=== PATIENT | female | born 1975 | race Caucasian/White ===

== ENCOUNTER 2019-05-05 08:10 | Emergency (ER) | payer MEDICAID, SELFPAY | END 2019-05-05 12:07 | disposition left against medical advice (07) | LOC: ER 05-14 10:57 | PROVIDERS: Emergency Provider Family Medicine; Family Provider Internal Medicine; PCP Internal Medicine | DX: K70.30 Alcoholic cirrhosis of liver without ascites (principal); R10.84 Generalized abdominal pain; F17.200 Nicotine dependence, unspecified, uncomplicated; B18.1 Chronic viral hepatitis B without delta-agent ==

== ENCOUNTER 2019-05-05 08:10 | Emergency (ER) | payer MEDICAID, SELFPAY ==
[2019-05-05 08:13] VITALS: BP 177/112; PULSE 108; RESP 22; O2SAT 97; BMI 26.8
--- NOTE | 2019-05-05 08:14 | ED_ITS ---
Entered by Mai Suarez, acting as scribe for Lane Gaffney DO HPI - General Adult General: Chief complaint: Nausea/Vomiting/Diarrhea Stated complaint: N/V Time Seen by Provider: 05/05/19 08:55 History of Present Illness: HPI narrative: 43 yo female presents with nausea and vomiting. Patient reports she has a history of cirrhosis evidently it is idiopathic. She denies any fever no recent change in medication she does use Dilaudid at home for pain. She is still taking her lactulose. She has not had any dysuria urgency or frequency denies any shortness of breath or cough. MD complaint: nausea and vomiting. Associated symptoms: Reports nausea and vomiting; Deny chest pain, dyspnea, malaise or rash Review of Systems Const: Denies: fever, chills, body aches, change in appetite, fatigue or malaise ENMT: Denies: throat pain, ear pain, nasal discharge or nasal congestion Card: Denies: chest pain, edema, shortness of breath on exertion or shortness of breath when lying down Resp: Denies: shortness of breath, productive cough or non-productive cough GI: Reports: nausea and vomiting : Denies: flank pain, difficulty urinating, painful urination, urinary frequency or urinary urgency Skin/Breast: Denies: rash or itching PFSH ED PFSH: Medical History Cirrhosis Diabetes mellitus Encephalopathy Gastroesophageal reflux GI bleeding Hypertension Pelvic inflammatory disease Stomach cancer Surgical History H/O tubal ligation History of hysterectomy History of laparotomy Social History Smoking and tobacco status: current some day smoker Physical Exam Const: COMMON NORMALS: no apparent distress GENERAL APPEARANCE: cooperative and comfortable ORIENTATION/CONSCIOUSNESS: Yes awake, Yes oriented to person, Yes oriented to place and Yes oriented to time HENMT: COMMON NORMALS: normocephalic, head/scalp atraumatic, hearing grossly normal bilaterally, external ears normal, EAC's normal, TM's normal bilaterally, nasal mucous membranes and turbinates normal, moist oral mucous membranes and oropharynx normal HEAD & SCALP: normocephalic and atraumatic NOSE: nasal mucous membranes and turbinates normal EXTERNAL EAR: Yes external ears normal EXTERNAL AUDITORY CANAL: EAC's normal TYMPANIC MEMBRANE: TM's normal bilaterally Eye: COMMON NORMALS: PERRL, EOMs intact bilaterally, conjunctivae normal and no scleral icterus CONJUNCTIVA: Yes conjunctivae normal PUPIL: Yes PERRL Neck/C-Spine: COMMON NORMALS: full ROM, no lymphadenopathy, supple and no JVD Lymph: LYMPHATIC: no lymphadenopathy noted and no lymphedema noted Resp: COMMON NORMALS: normal respiratory effort, no retractions, no use of accessory muscles and clear to auscultation bilaterally AUSCULTATION: clear to auscultation bilaterally Cardio: COMMON NORMALS: no JVD, regular rate, regular rhythm and no murmurs RATE: regular rate RHYTHM: regular rhythm GI: COMMON NORMALS: soft to palpation and no hepatosplenomegaly AUSCULTATION: Yes normoactive bowel sounds PALPATION: Yes soft, No tender, No guarding and Yes no hepatosplenomegaly Extremity: COMMON NORMALS: normal to inspection, normal capillary refill, no clubbing, cyanosis or edema, no calf tenderness and no pedal edema Neuro: SENSORIUM/ORIENTATION: Yes oriented to person, Yes oriented to place and Yes oriented to time Skin: COMMON NORMALS: no rashes or lesions noted GENERAL SKIN EXAM: no rashes or lesions noted Course 2 ED course: Work-up was still pending. Patient had continued pain she was given narcotics and antiemetics. Antiemetics seem to be helpful. Nurse reported to me that after the second dose of morphine patient removed her IV and began to leave the department the nurse attempted to stop her and talk to her to convince her not to leave. However she insisted on leaving I was not able to get the opportunity to talk to her. The nurse was not able to give her any paperwork for AMA. She does not have any altered mental status. Her ammonia level is elevated but is been more elevated in the past. When I talked her she is awake alert and oriented x3 is aware of her medications and her diagnosis. Unfortunately in the brief conversation the nurse had with her she was not able to convince her to leave and I was not able to talk to her. When I went to the room and checked the lobby the patient was not in the department anymore. She had eloped prior to receiving any AMA paperwork. Vital Signs: Vital signs: Vital Signs Pulse Rate 81 05/05/19 11:48 Respiratory Rate 18 05/05/19 11:50 Blood Pressure 191/109 05/05/19 11:48 Pulse Oximetry 98 05/05/19 11:48 [facility] - General Adult Lab Data: Labs: Lab Results 05/05/19 05/05/19 05/05/19 Range/Units 09:00 09:00 09:00 WBC 5.8 (4.0-10.0) 10^3/ uL RBC 4.51 (4.1-5.3) 10^6/u L Hgb 13.4 (11.5-15.3) g/dL Hct 41.4 (37.0-47.0) % MCV 91.8 (81-99) fL MCH 29.7 (28.0-34.0) pg MCHC 32.4 (30.0-36.0) g/dL RDW 13.2 (12.1-15.1) % Plt Count 125 L (130-400) 10^3/c mm MPV 10.5 H (7.4-10.4) fL Neut % (Auto) 57.1 % Lymph % (Auto) 28.6 % [place] % (Auto) 12.7 % Eos % (Auto) 0.7 % Baso % (Auto) 0.7 % Neut # (Auto) 3.3 (1.8-7.7) 10^3/u L Lymph # (Auto) 1.7 (0.8-4.8) 10^3/u L [place] # (Auto) 0.7 (0.2-0.9) 10^3/u L Eos # (Auto) 0.0 (0.0-0.8) 10^3/u L Baso # (Auto) 0.0 (0.0-0.1) 10^3/u L Nucleated RBC % (a uto) 0 % Nucleated RBCs # 0.0 /100WBC PT 14.10 H (10.5-13.3) SECO NDS INR 1.06 (0.8-1.2) APTT 30.8 (23.9-36.7) SECO NDS Sodium 140 (136-145) mmol/L Potassium 3.4 L (3.5-5.1) mmol/L Chloride 106 (98-107) mmol/L Carbon Dioxide 22 (22-29) mmol/L Anion Gap 15.4 (5-19) BUN 7 (6-20) mg/dL Creatinine 0.4 L (0.5-0.9) mg/dL GFR Calculation 173.4 H (90-130) mL/min Glucose 133 H (65-115) mg/dL Calcium 9.3 (8.5-10.5) mg/dL Total Bilirubin 1.0 (0.15-1.2) mg/dL AST 37 H (0-32) U/L ALT 21 (0-33) U/L Alkaline Phosphata se 115 H (35-105) IU/L Ammonia (11-51) umol/L Total Protein 8.1 (6.6-8.7) g/dL Albumin 2.9 L (3.5-5.2) g/dL Globulin 5.2 H (1.3-4.6) g/dL Lipase 20 (13-60) U/L Influenza Type A A g (Negative) POC Influenza B Ag (Negative) 05/05/19 05/05/19 Range/Units 09:00 09:06 WBC (4.0-10.0) 10^3/ uL RBC (4.1-5.3) 10^6/u L Hgb (11.5-15.3) g/dL Hct (37.0-47.0) % MCV (81-99) fL MCH (28.0-34.0) pg MCHC (30.0-36.0) g/dL RDW (12.1-15.1) % Plt Count (130-400) 10^3/c mm MPV (7.4-10.4) fL Neut % (Auto) % Lymph % (Auto) % [place] % (Auto) % Eos % (Auto) % Baso % (Auto) % Neut # (Auto) (1.8-7.7) 10^3/u L Lymph # (Auto) (0.8-4.8) 10^3/u L [place] # (Auto) (0.2-0.9) 10^3/u L Eos # (Auto) (0.0-0.8) 10^3/u L Baso # (Auto) (0.0-0.1) 10^3/u L Nucleated RBC % (a uto) % Nucleated RBCs # /100WBC PT (10.5-13.3) SECO NDS INR (0.8-1.2) APTT (23.9-36.7) SECO NDS Sodium (136-145) mmol/L Potassium (3.5-5.1) mmol/L Chloride (98-107) mmol/L Carbon Dioxide (22-29) mmol/L Anion Gap (5-19) BUN (6-20) mg/dL Creatinine (0.5-0.9) mg/dL GFR Calculation (90-130) mL/min Glucose (65-115) mg/dL Calcium (8.5-10.5) mg/dL Total Bilirubin (0.15-1.2) mg/dL AST (0-32) U/L ALT (0-33) U/L Alkaline Phosphata se (35-105) IU/L Ammonia 115 H (11-51) umol/L Total Protein (6.6-8.7) g/dL Albumin (3.5-5.2) g/dL Globulin (1.3-4.6) g/dL Lipase (13-60) U/L Influenza Type A A g Negative (Negative) POC Influenza B Ag Negative (Negative) Discharge Plan Discharge Patient Disposition: Left Against Medical Advice Clinical Impression: Cirrhosis of liver, Nausea and vomiting in adult patient, Left against medical advice Prescriptions: No Action furosemide 40 mg tablet 40 mg PO DAILY RF: 0 doxepin 50 mg capsule 50 mg PO BEDTIME RF: 0 lamotrigine 200 mg tablet 200 mg PO DAILY RF: 0 tizanidine 4 mg tablet 4 mg PO TID RF: 0 sucralfate 100 mg/mL suspension 10 ml PO QID RF: 0 spironolactone 100 mg tablet 100 mg PO DAILY RF: 0 potassium chloride 20 mEq/15 mL liquid 20 meq PO DAILY RF: 0 levetiracetam 250 mg tablet 250 mg PO BID RF: 0 levothyroxine 50 mcg tablet 50 mcg PO QAM RF: 0 Lidocaine Viscous 2 % solution See Rx Instructions .ROUTE .COMPLEX RF: 0 tenofovir disoproxil fumarate 300 mg tablet 300 mg PO DAILY RF: 0 gabapentin 100 mg capsule 100 mg PO BID RF: 0 hydromorphone 4 mg tablet 4 mg PO QID PRN (Reason: Pain) RF: 0 Narcan 4 mg/actuation spray,non-aerosol See Rx Instructions .ROUTE .COMPLEX RF: 0 Referrals: Km Frank MD [Primary Care Provider] - Interventions: ED Discharge Assessment Last Done: 05/05/19 12:04 Discharge Date/Time: 05/05/19 12:07 Coding Level of Care Code ED Director Of Food And Beverage Services for Chg 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 The documentation recorded by the Erick keene Kialy, accurately reflects the service I personally performed and the decisions made by Yeimy armando Curtis L, DO May 05, 2019 08:10
[2019-05-05 09:10] LABS: Basophils % 0.7 %; Eosinophils % 0.7 %; Hematocrit 41.4 % (37.0-47.0); Hemoglobin 13.4 g/dL (11.5-15.3); Lymphocytes # 1.7 10^3/uL (0.8-4.8); Lymphocytes % 28.6 %; Mean Corpuscular HGB Conc 32.4 g/dL (30.0-36.0); Mean Corpuscular Hemoglobin 29.7 pg (28.0-34.0); Mean Corpuscular Volume 91.8 fL (81-99); Mean Platelet Volume 10.5 fL (7.4-10.4); Monocytes # 0.7 10^3/uL (0.2-0.9); Monocytes % 12.7 %; Neutrophils # 3.3 10^3/uL (1.8-7.7); Neutrophils % 57.1 %; Nucleated Red Blood Cells % 0 %; Platelet Count 125 10^3/cmm (130-400); Red Blood Count 4.51 10^6/uL (4.1-5.3); Red Cell Distribution Width 13.2 % (12.1-15.1); White Blood Count 5.8 10^3/uL (4.0-10.0)
[2019-05-05 09:16] LABS: INR 1.06 (0.8-1.2)
[2019-05-05 09:17] LABS: Partial Thromboplastin Time 30.8 SECONDS (23.9-36.7)
[2019-05-05] MEDS: sodium chloride 0.9% 1,000 ML 999 ML IV (09:24)
[2019-05-05] MEDS: ondansetron 2 mg/ML SDV 2 mL 4 MG IVP (09:25)
[2019-05-05 09:27] LABS: Alanine Aminotransferase 21 U/L (0-33); Albumin Level 2.9 g/dL (3.5-5.2); Alkaline Phosphatase 115 IU/L (35-105); Ammonia 115 umol/L (11-51); Anion Gap 15.4 (5-19); Aspartate Amino Transferase 37 U/L (0-32); Blood Urea Nitrogen 7 mg/dL (6-20); Calcium 9.3 mg/dL (8.5-10.5); Carbon Dioxide 22 mmol/L (22-29); Chloride 106 mmol/L (98-107); Globulin 5.2 g/dL (1.3-4.6); Glomerular Filtration Rate 173.4 mL/min (90-130); Glucose 133 mg/dL (65-115); Lipase 20 U/L (13-60); Potassium 3.4 mmol/L (3.5-5.1); Sodium 140 mmol/L (136-145); Total Protein 8.1 g/dL (6.6-8.7)
[2019-05-05] MEDS: morphine 4 mg/mL SDV 1 mL IVP ×2 (09:27→11:50)
[2019-05-05 10:45] LABS: Influenza A by IFA Negative (Negative); Influenza B by IFA Negative (Negative)
--- NOTE | 2019-05-05 10:59 | CTR_ITS ---
PROCEDURE INFORMATION: Exam: CT Abdomen And Pelvis With Contrast Exam date and time: 05/05/2019 11:11 AM Age: 43 years old Clinical indication: Fever and nausea and vomiting; Prior surgery; Surgery type: Hysterectomy; Patient HX: N/v/d with fever; Additional info: Abd pain TECHNIQUE: Imaging protocol: Computed tomography of the abdomen and pelvis with intravenous contrast. Total DLP: 1775.79 mGy-cm Radiation optimization: All CT scans at this facility use at least one of these dose optimization techniques: automated exposure control; mA and/or kV adjustment per patient size (includes targeted exams where dose is matched to clinical indication); or iterative reconstruction. Contrast material: OMNI 300; Contrast volume: 95 ml; Contrast route: 20G; COMPARISON: CT abdomen pelvis w con* [id number] 03/04/2019 12:54 AM FINDINGS: Mediastinum: A small hiatal hernia is present. Liver: The liver has a finely nodular contour, consistent with cirrhosis. A few small hypodensities in the liver are unchanged. The largest of these is identified in the left lobe of the liver measuring 10 mm in size image 26. When compared with the prior contrasted study, this is suspicious for a hemangioma that was partially opacified on the prior exam. There does appear to be some mild peripheral enhancement not identified on this noncontrast study. Gallbladder and bile ducts: The gallbladder is moderately distended with fluid. No stones are identified. No intrahepatic biliary duct dilatation. No definite cholecystitis. Pancreas: Normal. No ductal dilation. Spleen: The spleen is prominent measuring 14.5 x 6.8 by 14 cm in length. Adrenals: Normal. No mass. Kidneys and ureters: There is no evidence of hydronephrosis. There is no evidence of renal calcifications. There is a 1.4 cm unchanged indeterminate lesion in the posterior midpole right kidney. Hounsfield unit measurement is 42. This is not a fluid density cyst. Stomach and bowel: Moderate diverticulosis is present in the distal colon. No bowel thickening or diverticulitis. The loops of small bowel have an appropriate appearance. There is no ileus or obstruction. The gastric wall appears mildly thickened but this is less prominent. The stomach is more distended in this is probable lack of full distention. Appendix: A normal appendix is identified. Intraperitoneal space: Unremarkable. No free air. No significant fluid collection. Vasculature: Unremarkable.No abdominal aortic aneurysm. Lymph nodes: Unremarkable.No enlarged lymph nodes. Bladder: There is nonspecific bladder wall thickening. This may be related to incomplete distention. Reproductive: Unremarkable as visualized. Bones/joints: Unremarkable. No acute fracture. Soft tissues: Fat filled ventral hernia in the midline upper abdomen is noted unchanged since the prior exam. There is a fat-containing umbilical hernia. Other findings: No acute abnormality. Incidental findings are noted as above. CT/CT abdomen pelvis w con* [id number] IMPRESSION: 1. Unchanged hepatic hypodensities and probable cirrhosis. No ascites. 2. Unchanged splenomegaly. 3. No acute abnormality or inflammatory changes. 4. 1.4 cm indeterminate lesion midpole right kidney.Recommend MR without and with contrast or CT without and with contrast. MR is preferred for masses under 1.5 cm. Radiation Dose CTDIVOL = (mGy): DLP = 1775.79 (mGy-cm)
[2019-05-05] MEDS: iohexol 300 mg/mL 100 mL Btl IV (11:23)
[2019-05-05] MEDS: metoclopramide 5 mg/mL SDV 2 mL 10 MG IVP (11:42)
[2019-05-05 11:48] VITALS: BP 191/109; PULSE 81; RESP 16; O2SAT 98
[2019-05-05 11:50] VITALS: RESP 18
--- NOTE | 2019-05-05 12:03 | PC.NURSE ---
patient left [facility] without informing staff or emd
== END 2019-05-05 12:07 | disposition left against medical advice (07) ==
PROVIDERS: Emergency Provider Family Medicine; Family Provider Internal Medicine; PCP Internal Medicine
DX: K74.60 Unspecified cirrhosis of liver (principal); R11.2 Nausea with vomiting, unspecified; E11.9 Type 2 diabetes mellitus without complications; I10 Essential (primary) hypertension; F17.200 Nicotine dependence, unspecified, uncomplicated; Z53.29 Procedure and treatment not carried out because of patient's decision for other reasons
CPT/HCPCS: 36415; 74177; 80053; 82140; 83690; 85025; 85610; 85730; 87804; 96361; 96374; 96375; 99282; 99283; J2270; J2405; J2765; J7030; Q9967

== ENCOUNTER 2019-05-08 06:48 | Emergency (ER) | payer MEDICAID, SELFPAY ==
[2019-05-08 06:50] VITALS: BP 153/95; PULSE 55; RESP 18; TEMP 36.8; O2SAT 95; BMI 26.8
[2019-05-08 07:15] VITALS: BP 153/106; PULSE 87; RESP 15; O2SAT 95
[2019-05-08 07:17] VITALS: RESP 16
--- NOTE | 2019-05-08 07:18 | ED_ITS ---
Entered by Jessy Butler, acting as scribe for Brandon Jerez MD May 08, 2019 06:48 HPI - Abdominal Pain General: Chief Complaint: Abdominal Pain Stated Complaint: pain all over Time Seen by Provider: 05/08/19 06:57 Source: patient Mode of arrival: ambulatory Limitations: no limitations History of Present Illness: HPI narrative: 43-year-old female who has a history of cirrhosis and chronic abdominal pain states that they switched her pain medicines last week and she has had increased pain since then. She denies any fevers. She denies any worsening or improving factors. MD elicited complaint: abdominal pain Associated Symptoms: Denies chills, diarrhea, fever(s), nausea and vomiting Review of Systems Const: Denies: fever, chills, body aches or change in appetite Eyes: Denies: blurry vision or eye discomfort ENMT: Denies: throat pain or dental pain Card: Denies: chest pain Resp: Denies: shortness of breath GI: Denies: abdominal pain, nausea, vomiting or diarrhea Musc: Denies: neck pain or back pain Skin/Breast: Denies: rash Neuro: Denies: headache Psych: Denies: depression Robel/Lymph: Denies: easy bruising All/Imm: Denies: hives PFSH ED PFSH: Social History Smoking and tobacco status: never smoked Physical Exam Const: COMMON NORMALS: no apparent distress, oriented x3 and healthy appearing HENMT: COMMON NORMALS: normocephalic and head/scalp atraumatic HEAD & SCALP: normocephalic and atraumatic Eye: COMMON NORMALS: PERRL and EOMs intact bilaterally PUPIL: Yes PERRL Neck/C-Spine: COMMON NORMALS: full ROM and supple Chest: COMMONS NORMALS: inspection of chest normal and palpation of chest normal Resp: COMMON NORMALS: normal respiratory effort, no retractions, no use of accessory muscles and clear to auscultation bilaterally AUSCULTATION: clear to auscultation bilaterally Cardio: COMMON NORMALS: regular rate, regular rhythm and no murmurs RATE: regular rate RHYTHM: regular rhythm Extremity: COMMON NORMALS: normal to inspection and full ROM Neuro: COMMON NORMALS: oriented x3, moves all extremities and no focal motor deficits Psych: COMMON NORMALS: mental status grossly normal, thought process normal and cooperative THOUGHT PROCESS: normal thought process Skin: COMMON NORMALS: no rashes or lesions noted and no wounds GENERAL SKIN EXAM: no rashes or lesions noted Course Vital Signs: Vital signs: Vital Signs Temperature 98.2 F 05/08/19 06:50 Pulse Rate 65 05/08/19 08:27 Respiratory Rate 16 05/08/19 08:27 Blood Pressure 143/99 05/08/19 08:27 Pulse Oximetry 93 05/08/19 08:27 MDM - Abdominal Pain MDM Narrative: Medical decision making narrative: Patient presents here with abdominal pain that is chronic in nature from her cirrhosis. Patient is well- appearing here and lab work is normal. Patient is stable for discharge and is to follow-up with primary care doctor in 3 to 5 days return to ER if worsening. Patient abdominal exam at discharge is benign with no tenderness. Lab Data: Labs: Lab Results 05/08/19 05/08/19 Range/Units 07:15 07:15 WBC 6.9 (4.0-10.0) 10^3/ uL RBC 4.34 (4.1-5.3) 10^6/u L Hgb 13.3 (11.5-15.3) g/dL Hct 38.9 (37.0-47.0) % MCV 89.6 (81-99) fL MCH 30.6 (28.0-34.0) pg MCHC 34.2 (30.0-36.0) g/dL RDW 13.1 (12.1-15.1) % Plt Count 142 (130-400) 10^3/c mm MPV 10.9 H (7.4-10.4) fL Neut % (Auto) 57.2 % Lymph % (Auto) 27.6 % [place] % (Auto) 11.6 % Eos % (Auto) 2.6 % Baso % (Auto) 0.7 % Neut # (Auto) 4.0 (1.8-7.7) 10^3/u L Lymph # (Auto) 1.9 (0.8-4.8) 10^3/u L [place] # (Auto) 0.8 (0.2-0.9) 10^3/u L Eos # (Auto) 0.2 (0.0-0.8) 10^3/u L Baso # (Auto) 0.1 (0.0-0.1) 10^3/u L Nucleated RBC % (a uto) 0 % Nucleated RBCs # 0.0 /100WBC Sodium 138 (136-145) mmol/L Potassium 3.2 L (3.5-5.1) mmol/L Chloride 103 (98-107) mmol/L Carbon Dioxide 23 (22-29) mmol/L Anion Gap 15.2 (5-19) BUN 4 L (6-20) mg/dL Creatinine 0.4 L (0.5-0.9) mg/dL GFR Calculation 173.4 H (90-130) mL/min Glucose 157 H (65-115) mg/dL Calcium 8.9 (8.5-10.5) mg/dL Total Bilirubin 1.0 (0.15-1.2) mg/dL AST 31 (0-32) U/L ALT 18 (0-33) U/L Alkaline Phosphata se 117 H (35-105) IU/L Total Protein 7.7 (6.6-8.7) g/dL Albumin 2.8 L (3.5-5.2) g/dL Globulin 4.9 H (1.3-4.6) g/dL Lipase 18 (13-60) U/L Discharge Plan Discharge Patient Disposition: Home, Self-Care Clinical Impression: Abdominal pain Qualifiers: Abdominal location: generalized Qualified Code(s): R10.84 - Generalized abdominal pain Condition: Stable Prescriptions: No Action furosemide 40 mg tablet 40 mg PO DAILY RF: 0 doxepin 50 mg capsule 50 mg PO BEDTIME RF: 0 lamotrigine 200 mg tablet 200 mg PO DAILY RF: 0 tizanidine 4 mg tablet 4 mg PO TID RF: 0 sucralfate 100 mg/mL suspension 10 ml PO QID RF: 0 spironolactone 100 mg tablet 100 mg PO DAILY RF: 0 potassium chloride 20 mEq/15 mL liquid 20 meq PO DAILY RF: 0 levetiracetam 250 mg tablet 250 mg PO BID RF: 0 levothyroxine 50 mcg tablet 50 mcg PO QAM RF: 0 Lidocaine Viscous 2 % solution See Rx Instructions .ROUTE .COMPLEX RF: 0 tenofovir disoproxil fumarate 300 mg tablet 300 mg PO DAILY RF: 0 gabapentin 100 mg capsule 100 mg PO BID RF: 0 hydromorphone 4 mg tablet 4 mg PO QID PRN (Reason: Pain) RF: 0 Narcan 4 mg/actuation spray,non-aerosol See Rx Instructions .ROUTE .COMPLEX RF: 0 Discharge Orders: Discharge Order (Routine); Ordered 05/08/19 Ordered By: Brandon Jerez Referrals: Km Frank MD [Primary Care Provider] - 4-7 days Discharge Activity: Resume usual activity Patient Instructions: Abdominal Pain (ED) Discharge Date/Time: 05/08/19 08:28 Coding Level of Care Code ED Cosmetician Apprentice for Chg 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 The documentation recorded by the Luke keene Bridget Annette, accurately reflects the service I personally performed and the decisions made by Meri armando Korby, MD May 08, 2019 06:48
[2019-05-08 07:19] LABS: Basophils # 0.1 10^3/uL (0.0-0.1); Basophils % 0.7 %; Eosinophils # 0.2 10^3/uL (0.0-0.8); Eosinophils % 2.6 %; Hematocrit 38.9 % (37.0-47.0); Hemoglobin 13.3 g/dL (11.5-15.3); Lymphocytes # 1.9 10^3/uL (0.8-4.8); Lymphocytes % 27.6 %; Mean Corpuscular HGB Conc 34.2 g/dL (30.0-36.0); Mean Corpuscular Hemoglobin 30.6 pg (28.0-34.0); Mean Corpuscular Volume 89.6 fL (81-99); Mean Platelet Volume 10.9 fL (7.4-10.4); Monocytes # 0.8 10^3/uL (0.2-0.9); Monocytes % 11.6 %; Neutrophils % 57.2 %; Nucleated Red Blood Cells % 0 %; Platelet Count 142 10^3/cmm (130-400); Red Blood Count 4.34 10^6/uL (4.1-5.3); Red Cell Distribution Width 13.1 % (12.1-15.1); White Blood Count 6.9 10^3/uL (4.0-10.0)
[2019-05-08 07:24] VITALS: RESP 15
[2019-05-08] MEDS: HYDROmorphone 1 mg/mL INJ 1 mL IVP (07:24)
[2019-05-08] MEDS: diphenhydrAMINE 50 mg/mL SDV 1mL IVP (07:24)
[2019-05-08] MEDS: metoclopramide 5 mg/mL SDV 2 mL 10 MG IVP (07:24)
[2019-05-08 07:42] LABS: Alanine Aminotransferase 18 U/L (0-33); Albumin Level 2.8 g/dL (3.5-5.2); Alkaline Phosphatase 117 IU/L (35-105); Anion Gap 15.2 (5-19); Aspartate Amino Transferase 31 U/L (0-32); Blood Urea Nitrogen 4 mg/dL (6-20); Calcium 8.9 mg/dL (8.5-10.5); Carbon Dioxide 23 mmol/L (22-29); Chloride 103 mmol/L (98-107); Globulin 4.9 g/dL (1.3-4.6); Glomerular Filtration Rate 173.4 mL/min (90-130); Glucose 157 mg/dL (65-115); Lipase 18 U/L (13-60); Potassium 3.2 mmol/L (3.5-5.1); Sodium 138 mmol/L (136-145); Total Protein 7.7 g/dL (6.6-8.7)
--- NOTE | 2019-05-08 07:52 | PC.NURSE ---
put pt on 2 l NC of oxygen due to o2 sat being 90%
[2019-05-08 08:27] VITALS: BP 143/99; PULSE 65; RESP 16; O2SAT 93
== END 2019-05-08 08:28 | disposition home or self-care (01) ==
PROVIDERS: Emergency Provider Emergency Medicine; Family Provider Internal Medicine; PCP Internal Medicine
DX: R10.9 Unspecified abdominal pain (principal); K74.60 Unspecified cirrhosis of liver
CPT/HCPCS: 80053; 83690; 85025; 96374; 96375; 99282; 99283; J1170; J1200; J2765

== ENCOUNTER 2019-05-11 08:24 | Emergency (ER) | payer MEDICAID, SELFPAY ==
[2019-05-11 08:25] VITALS: BP 147/93; PULSE 76; RESP 18; TEMP 38; O2SAT 97; BMI 25.7
[2019-05-11 08:38] VITALS: O2SAT 97
--- NOTE | 2019-05-11 08:46 | ED_ITS ---
HPI - General Adult General: Chief complaint: Abdominal Pain Stated complaint: ABD PAIN; N/V Time Seen by Provider: 05/11/19 08:28 History of Present Illness: HPI narrative: Patient comes in by ambulance complaint abdominal pain. Says she is not taking Dilaudid that she is at home for the last 2 days because the branch she had does not work. She said she like to have some dilaudid for pain control. Said her stomach hurts is that has multiple times while she has been here in the ER. Says she just cannot stand the pain anymore MD complaint: Abdominal pain worse last 2 days since she has been off her Dilaudid Onset (ago): year(s) Location: abdomen Radiation: non-radiation Severity: severe Severity scale (1-10): 9 Quality: aching Pain Consistency: constant Relieving factors: none Exacerbating factors: none Associated symptoms: Reports no associated symptoms and fevers/chills; Deny chest pain, dyspnea, headache(s), nausea, rash or vomiting Review of Systems Const: Reports: fever; Denies: chills or body aches Eyes: Denies: change in vision or blurry vision ENMT: Denies: throat pain or nasal congestion Card: Denies: chest pain or shortness of breath on exertion Resp: Denies: shortness of breath, productive cough or non-productive cough GI: Reports: abdominal pain; Denies: nausea or vomiting Musc: Denies: extremity pain Skin/Breast: Denies: rash Neuro: Denies: headache Psych: Denies: anxiety or depression Robel/Lymph: Denies: easy bruising PFSH ED PFSH: Social History Smoking and tobacco status: current every day smoker Physical Exam Const: COMMON NORMALS: no apparent distress, average body habitus, oriented x3 and alert HENMT: COMMON NORMALS: normocephalic HEAD & SCALP: normal to inspection and normocephalic FACE & SINUS: normal facial exam Eye: COMMON NORMALS: conjunctivae normal GENERAL EYE: normal appearance of both eyes CONJUNCTIVA: Yes conjunctivae normal Neck/C-Spine: COMMON NORMALS: no JVD Chest: COMMONS NORMALS: inspection of chest normal Resp: COMMON NORMALS: normal respiratory effort and clear to auscultation bilaterally AUSCULTATION: clear to auscultation bilaterally Cardio: COMMON NORMALS: no JVD, regular rate and regular rhythm RATE: regular rate RHYTHM: regular rhythm GI: COMMON NORMALS: normal to inspection, nondistended, normoactive bowel sounds AUSCULTATION: Yes normoactive bowel sounds PALPATION: Yes tender (Generalized) Extremity: COMMON NORMALS: normal to inspection and full ROM Neuro: COMMON NORMALS: oriented x3 SENSORIUM/ORIENTATION: Yes alert Course Vital Signs: Vital signs: Vital Signs Temperature 100.4 F H 05/11/19 08:25 Pulse Rate 76 05/11/19 08:25 Respiratory Rate 18 05/11/19 08:25 Blood Pressure 147/93 05/11/19 08:25 Pulse Oximetry 97 05/11/19 08:38 MDM - General Adult MDM Narrative: Medical decision making narrative: discussed case with Dr. Jerez Lab Data: Labs: Lab Results 05/11/19 05/11/19 05/11/19 Range/Units 09:04 09:04 09:20 WBC 12.4 H (4.0-10.0) 10^3/ uL RBC 4.58 (4.1-5.3) 10^6/u L Hgb 13.7 (11.5-15.3) g/dL Hct 40.8 (37.0-47.0) % MCV 89.1 (81-99) fL MCH 29.9 (28.0-34.0) pg MCHC 33.6 (30.0-36.0) g/dL RDW 13.5 (12.1-15.1) % Plt Count 112 L (130-400) 10^3/c mm MPV 11.4 H (7.4-10.4) fL Neut % (Auto) 94.7 % Lymph % (Auto) 2.9 % [place] % (Auto) 1.5 % Eos % (Auto) 0.2 % Baso % (Auto) 0.2 % Neut # (Auto) 11.7 H (1.8-7.7) 10^3/u L Lymph # (Auto) 0.4 L (0.8-4.8) 10^3/u L [place] # (Auto) 0.2 (0.2-0.9) 10^3/u L Eos # (Auto) 0.0 (0.0-0.8) 10^3/u L Baso # (Auto) 0.0 (0.0-0.1) 10^3/u L Nucleated RBC % (a uto) 0 % Nucleated RBCs # 0.0 /100WBC Sodium 136 (136-145) mmol/L Potassium 3.0 L (3.5-5.1) mmol/L Chloride 101 (98-107) mmol/L Carbon Dioxide 23 (22-29) mmol/L Anion Gap 15.0 (5-19) BUN 8 (6-20) mg/dL Creatinine 0.6 (0.5-0.9) mg/dL GFR Calculation 108.6 (90-130) mL/min Glucose 171 H (65-115) mg/dL Calcium 8.9 (8.5-10.5) mg/dL Total Bilirubin 1.1 (0.15-1.2) mg/dL AST 46 H (0-32) U/L ALT 21 (0-33) U/L Alkaline Phosphata se 121 H (35-105) IU/L Total Protein 7.5 (6.6-8.7) g/dL Albumin 2.8 L (3.5-5.2) g/dL Globulin 4.7 H (1.3-4.6) g/dL Influenza Type A A g Negative (Negative) POC Influenza B Ag Negative (Negative) Discharge Plan Discharge Patient Disposition: Home, Self-Care Clinical Impression: Cirrhosis of liver Qualifiers: Hepatic cirrhosis type: alcoholic cirrhosis Ascites presence: without ascites Qualified Code(s): K70.30 - Alcoholic cirrhosis of liver without ascites Abdominal pain Qualifiers: Abdominal location: generalized Qualified Code(s): R10.84 - Generalized abdominal pain Condition: Stable Prescriptions: New doxycycline hyclate 100 mg tablet 100 mg PO BID 7 Days Qty: 14 RF: 0 No Action furosemide 40 mg tablet 40 mg PO DAILY RF: 0 doxepin 50 mg capsule 50 mg PO BEDTIME RF: 0 lamotrigine 200 mg tablet 200 mg PO DAILY RF: 0 tizanidine 4 mg tablet 4 mg PO TID RF: 0 sucralfate 100 mg/mL suspension 10 ml PO QID RF: 0 spironolactone 100 mg tablet 100 mg PO DAILY RF: 0 potassium chloride 20 mEq/15 mL liquid 20 meq PO DAILY RF: 0 levetiracetam 250 mg tablet 250 mg PO BID RF: 0 levothyroxine 50 mcg tablet 50 mcg PO QAM RF: 0 Lidocaine Viscous 2 % solution See Rx Instructions .ROUTE .COMPLEX RF: 0 tenofovir disoproxil fumarate 300 mg tablet 300 mg PO DAILY RF: 0 gabapentin 100 mg capsule 100 mg PO BID RF: 0 hydromorphone 4 mg tablet 4 mg PO QID PRN (Reason: Pain) RF: 0 Narcan 4 mg/actuation spray,non-aerosol See Rx Instructions .ROUTE .COMPLEX RF: 0 Discharge Orders: Discharge Order (Routine); Ordered 05/11/19 Ordered By: Cooper Gaston Referrals: Km Frank MD [Primary Care Provider] - Discharge Diet: Usual diet Discharge Activity: Increase activity as tolerated Patient Instructions: Abdominal Pain (ED) Activity Restrictions/Additional Instructions: Follow-up with medical provider as directed. Take medications as prescribed. Return to the ER or your medical provider if condition worsens. Please read and understand discharge instructions. If any questions ask please. Follow-up with [facility] if FLOOR SANDER as scheduled on Sunday. Coding Level of Care Code ED Automobile Racer for Geneg 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
[2019-05-11] MEDS: metoclopramide 5 mg/mL SDV 2 mL 10 MG IVP (09:24)
[2019-05-11] MEDS: HYDROmorphone 1 mg/mL INJ 1 mL 0.5 MG IVP (09:25)
[2019-05-11] MEDS: sodium chloride 0.9% 1,000 ML 999 ML IV (09:25)
[2019-05-11 09:28] LABS: Alanine Aminotransferase 21 U/L (0-33); Albumin Level 2.8 g/dL (3.5-5.2); Alkaline Phosphatase 121 IU/L (35-105); Aspartate Amino Transferase 46 U/L (0-32); Blood Urea Nitrogen 8 mg/dL (6-20); Calcium 8.9 mg/dL (8.5-10.5); Carbon Dioxide 23 mmol/L (22-29); Chloride 101 mmol/L (98-107); Globulin 4.7 g/dL (1.3-4.6); Glomerular Filtration Rate 108.6 mL/min (90-130); Glucose 171 mg/dL (65-115); Sodium 136 mmol/L (136-145); Total Bilirubin 1.1 mg/dL (0.15-1.2); Total Protein 7.5 g/dL (6.6-8.7)
[2019-05-11 09:45] LABS: Influenza A by IFA Negative (Negative); Influenza B by IFA Negative (Negative)
[2019-05-11 10:05] LABS: Basophils % 0.2 %; Eosinophils % 0.2 %; Hematocrit 40.8 % (37.0-47.0); Hemoglobin 13.7 g/dL (11.5-15.3); Lymphocytes # 0.4 10^3/uL (0.8-4.8); Lymphocytes % 2.9 %; Mean Corpuscular HGB Conc 33.6 g/dL (30.0-36.0); Mean Corpuscular Hemoglobin 29.9 pg (28.0-34.0); Mean Corpuscular Volume 89.1 fL (81-99); Mean Platelet Volume 11.4 fL (7.4-10.4); Monocytes # 0.2 10^3/uL (0.2-0.9); Monocytes % 1.5 %; Neutrophils # 11.7 10^3/uL (1.8-7.7); Neutrophils % 94.7 %; Nucleated Red Blood Cells % 0 %; Platelet Count 112 10^3/cmm (130-400); Red Blood Count 4.58 10^6/uL (4.1-5.3); Red Cell Distribution Width 13.5 % (12.1-15.1); White Blood Count 12.4 10^3/uL (4.0-10.0)
[2019-05-11 10:47] VITALS: BP 115/64; PULSE 74; RESP 17; O2SAT 97
== END 2019-05-11 10:57 | disposition home or self-care (01) ==
PROVIDERS: Emergency Provider Nurse Practitioner Family; Family Provider Internal Medicine; PCP Internal Medicine
DX: K74.60 Unspecified cirrhosis of liver (principal); R10.9 Unspecified abdominal pain; F17.200 Nicotine dependence, unspecified, uncomplicated
CPT/HCPCS: 36415; 80053; 85025; 87804; 96361; 96374; 96375; 99282; 99283; A9270; J1170; J2765; J7030

== ENCOUNTER → 2019-06-05 09:50 | Outpatient (BNVA) | payer MEDICAID, SELFPAY | PROVIDERS: Family Provider Internal Medicine; PCP Internal Medicine; Visit Provider Family Medicine | DX: R25.2 Cramp and spasm (principal); R10.9 Unspecified abdominal pain; G89.29 Other chronic pain | CPT/HCPCS: 80053; 85025 ==

== ENCOUNTER 2019-09-20 08:41 | Emergency (ER) | payer MEDICAID, SELFPAY ==
[2019-09-20 08:44] VITALS: BMI 32.5
[2019-09-20 08:47] VITALS: BP 148/100; PULSE 88; RESP 20; TEMP 36.9; O2SAT 98
--- NOTE | 2019-09-20 08:47 | ED_ITS ---
HPI - Extremity Problem General: Chief complaint: Extremity Injury, Lower Stated complaint: RIGHT FOOT PAIN Time Seen by Provider: 09/20/19 08:43 History of Present Illness: HPI Narrative: Patient is a 44-year-old female comes to the ED with right ankle pain. Patient says last night she stood up her right ankle pop and she had intense pain. This morning her her right ankle was swollen and she rates the pain in her right ankle about a 7 or 8 out of 10. She has not taken any [id number] pain medicines before arriving to ED. Associated symptoms: Deny chest pain, fever(s) or rash Review of Systems Const: Denies: fever(s), chills or fatigue Eyes: Denies: change in vision or eye discomfort ENMT: Denies: throat pain, odynophagia, nasal discharge or nasal congestion Card: Denies: chest pain, palpitations, edema, swelling of feet/ankles, dyspnea on exertion or orthopnea Resp: Denies: dyspnea, productive cough or non-productive cough GI: Denies: abdominal pain, nausea, vomiting, diarrhea, constipation or hematochezia : Denies: flank pain, dysuria or hematuria Musc: Reports: extremity pain (right ankle) and extremity swelling (right ankle); Denies: neck pain or back pain Skin/Breast: Denies: rash or new lesions Neuro: Denies: headache(s), numbness in extremities or weakness in extremities PFSH ED PFSH: Medical History Chronic abdominal pain Chronic hepatitis B Chronic hip pain Cirrhosis Diabetes mellitus Encephalopathy Gastroesophageal reflux GI bleeding Hypertension Leg cramps Pelvic inflammatory disease Stomach cancer Surgical History H/O tubal ligation History of hysterectomy History of laparotomy Family History Other Cancer Diabetes Social History Smoking and tobacco status: current every day smoker cigarettes Packs smoked per day: 0.25 Alcohol intake: never Physical Exam Const: COMMON NORMALS: patient oriented x3 and alert GENERAL APPEARANCE: cooperative and comfortable HENMT: COMMON NORMALS: normocephalic HEAD & SCALP: normocephalic MOUTH: Normal oral and palatal mucosa present THROAT: posterior oropharynx normal and uvula midline Eye: COMMON NORMALS: Equal, round and reactive pupils present PUPIL: Yes Equal, round and reactive pupils present Neck/C-Spine: COMMON NORMALS: supple GENERAL: Yes normal visual inspection Resp: COMMON NORMALS: normal respiratory effort, No retractions, No use of accessory muscles and clear to auscultation bilaterally AUSCULTATION: clear to auscultation bilaterally Cardio: COMMON NORMALS: regular rate, regular rhythm, S1 normal heart sound present, S2 normal heart sound present, No gallops present (Cardio), No clicks present (Cardio), No murmurs present (Cardio) and Peripheral pulses 2+ throughout RATE: regular rate RHYTHM: regular rhythm HEART SOUNDS: S1 normal heart sound present and S2 normal heart sound present PERIPHERAL PULSES: Peripheral pulses 2+ throughout GI: COMMON NORMALS: Normal to inspection, nondistended, normoactive bowel sounds present, Soft to palpation, non-tender and no masses PALPATION: Yes Soft to palpation : COMMON NORMALS: Yes no CVA tenderness BLADDER/KIDNEY EXAM: Yes no CVA tenderness Back/Pelvis: COMMON NORMALS: no CVA tenderness Extremity: GENERAL: Yes normal exam except as noted RIGHT LOWER EXTREMITY: Yes foot & digits Right ankle: Yes inspection (No visible deformity and swelling around ankle present. No ecchymosis seen.), Yes palpation (tender upon palpation of lateral malleolus.), Yes ROM (Limited due to pain) and Yes neurovascular exam (Intact) Neuro: COMMON NORMALS: patient oriented x3 and moves all extremities SENSORIUM/ORIENTATION: Yes alert Skin: COMMON NORMALS: no rashes or lesions noted GENERAL SKIN EXAM: no rashes or lesions noted and dry skin Course Vital Signs: Vital signs: Vital Signs Temperature 98.4 F 09/20/19 08:47 Pulse Rate 88 09/20/19 08:47 Respiratory Rate 20 H 09/20/19 08:47 Blood Pressure 148/100 09/20/19 08:47 Pulse Oximetry 98 09/20/19 08:47 MDM - Extremity (Nontraumatic) Imaging Data^: Xray Ortho: Attestation: I personally reviewed and interpreted this imaging study as follows: Radiologist's impression: [address] [place] [address] XRay Report Signed Patient: Maribell Foreman Unit #: [id number] : 1975 Age/Sex: 44 / F ADM Date: 09/20/19 Loc: ER Room/Bed: Attending Dr: Ordering Provider/Ordering MD: Britton Heart Date of Service: 09/20/19 Procedure(s): XR ankle RT min 3V* 19659 Accession Number(s): [id number] Report Number: [id number] PROCEDURE INFORMATION: Exam: XR Right Ankle Exam date and time: 09/20/2019 8:55 AM Age: 44 years old Clinical indication: Pain; Right; Patient HX: PT stepped and felt / heard pop in ankle this morning; Additional info: Injury with ankle swelling, pain TECHNIQUE: Imaging protocol: XR Right ankle. Views: 3 or more views. COMPARISON: No relevant prior studies available. FINDINGS: Bones/joints: Medial and lateral malleoli normal. Ankle mortise symmetrical. No fracture. Hind foot is unremarkable. Tibiotalar joint and subtalar joint normal. Mild degenerative changes talonavicular joint. Soft tissues: Severe soft tissue swelling laterally. Severe soft tissue swelling adjacent to the lateral malleolus. XR/XR ankle RT min 3V* [id number] IMPRESSION: 1. No fracture 2. Severe soft tissue swelling adjacent to the lateral malleolus. Dictated By: Luis Enrique MD Signed By: Luis Enrique MD Signed Date/Time: 09/20/19937 DD/ 5 Discharge Plan Discharge Patient Disposition: Home, Self-Care Clinical Impression: Ankle sprain and strain Condition: Stable Prescriptions: No Action Xifaxan 550 mg tablet 550 mg PO BID RF: 0 pantoprazole 40 mg tablet,delayed release (DR/EC) 40 mg PO DAILY RF: 0 tizanidine 6 mg capsule 6 mg PO TID PRN (Reason: muscle spasticity) Qty: 90 RF: 0 furosemide 40 mg tablet 40 mg PO DAILY RF: 0 doxepin 50 mg capsule 50 mg PO BEDTIME RF: 0 lamotrigine 200 mg tablet 200 mg PO DAILY RF: 0 sucralfate 100 mg/mL suspension 10 ml PO QID RF: 0 spironolactone 100 mg tablet 100 mg PO DAILY RF: 0 potassium chloride 20 mEq/15 mL liquid 20 meq PO DAILY RF: 0 levetiracetam 250 mg tablet 250 mg PO BID RF: 0 levothyroxine 50 mcg tablet 50 mcg PO QAM RF: 0 Lidocaine Viscous 2 % solution See Rx Instructions .ROUTE .COMPLEX RF: 0 tenofovir disoproxil fumarate 300 mg tablet 300 mg PO DAILY RF: 0 gabapentin 100 mg capsule 100 mg PO BID RF: 0 hydromorphone 4 mg tablet 4 mg PO QID PRN (Reason: Pain) RF: 0 Narcan 4 mg/actuation spray,non-aerosol See Rx Instructions .ROUTE .COMPLEX RF: 0 Discharge Orders: Discharge Order (Routine); Ordered 09/20/19 Ordered By: Britton Heart Referrals: Maribell Hodges DO [Primary Care Provider] - Discharge Diet: Regular Discharge Activity: Increase activity as tolerated and Use walker/crutches as instructed Patient Instructions: Sprains - Ankle Activity Restrictions/Additional Instructions: Follow-up with medical provider as directed in the next 7-10 days. Take [id number] ibuprofen to help with pain and inflammation. Use crutches to help with ambulation over the next 1 to 3 days. Rest, ice and elevate right lower extremity. You can also wrap right ankle with Ricki wrap to help with swelling and provide support. Advance weightbearing as tolerated after 2 days. Return to the ER or your medical provider if condition worsens. Please read and understand discharge instructions. If any questions, please ask. Coding Level of Care Code ED Regulatory Technician for Margarito 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
--- NOTE | 2019-09-20 08:53 | XRR_ITS ---
PROCEDURE INFORMATION: Exam: XR Right Ankle Exam date and time: 09/20/2019 8:55 AM Age: 44 years old Clinical indication: Pain; Right; Patient HX: PT stepped and felt / heard pop in ankle this morning; Additional info: Injury with ankle swelling, pain TECHNIQUE: Imaging protocol: XR Right ankle. Views: 3 or more views. COMPARISON: No relevant prior studies available. FINDINGS: Bones/joints: Medial and lateral malleoli normal. Ankle mortise symmetrical. No fracture. Hind foot is unremarkable. Tibiotalar joint and subtalar joint normal. Mild degenerative changes talonavicular joint. Soft tissues: Severe soft tissue swelling laterally. Severe soft tissue swelling adjacent to the lateral malleolus. XR/XR ankle RT min 3V* [id number] IMPRESSION: 1. No fracture 2. Severe soft tissue swelling adjacent to the lateral malleolus.
[2019-09-20] MEDS: HYDROcodone-acetaminophen 7.5-325 mg Tablet 1 TAB PO (09:04)
[2019-09-20] MEDS: diphenhydrAMINE 25 mg Capsule PO (09:04)
--- NOTE | 2019-09-20 09:05 | PC.NURSE ---
XR performed at bedside
[2019-09-20] MEDS: ketorolac 60 mg/2 mL INJ IM (09:57)
[2019-09-20 10:05] VITALS: BP 150/98; PULSE 84; RESP 16; O2SAT 99
== END 2019-09-20 10:06 | disposition home or self-care (01) ==
PROVIDERS: Emergency Provider Physician Assistant; PCP Family Medicine
DX: S93.401A Sprain of unspecified ligament of right ankle, initial encounter (principal); S96.911A Strain of unspecified muscle and tendon at ankle and foot level, right foot, initial encounter; X58.XXXA Exposure to other specified factors, initial encounter; Z86.19 Personal history of other infectious and parasitic diseases; E11.9 Type 2 diabetes mellitus without complications; I10 Essential (primary) hypertension; Z85.028 Personal history of other malignant neoplasm of stomach; F17.210 Nicotine dependence, cigarettes, uncomplicated
CPT/HCPCS: 12345; 73610; 96372; 99282; 99283; E0114; J1885

== ENCOUNTER 2019-11-20 04:48 | Emergency (ER) | payer MEDICAID, SELFPAY ==
[2019-11-20 04:48] VITALS: BP 168/110; PULSE 82; RESP 16; TEMP 36.9; O2SAT 97; BMI 26.4
--- NOTE | 2019-11-20 04:56 | ED_ITS ---
Documented by User: Brandon Jerez MD 11/20/19 05:50 HPI - Abdominal Pain General: Chief Complaint: Abdominal Pain Stated Complaint: N/V Time Seen by Provider: 11/20/19 04:51 Source: patient and EMS Mode of arrival: EMS Limitations: no limitations History of Present Illness: HPI narrative: 44-year-old female history of chronic hepatitis B and chronic abdominal pain. Patient states she recently got over C. difficile has been in hospital for roughly 1 week. Patient states that she was on oxycodone and hydromorphone and only is on her hydromorphone currently. Patient states she no longer has any diarrhea but is having severe abdominal pain. She states her pain is diffuse in nature and rates it a 10. She has had some nausea but denies any vomiting. Patient denies any pain elsewhere. MD elicited complaint: abdominal pain Associated Symptoms: Denies chills, dysuria and fever(s) Review of Systems Const: Denies: fever(s), chills, body aches or change in appetite Eyes: Denies: blurry vision or eye discomfort ENMT: Denies: throat pain or dental pain Card: Denies: chest pain Resp: Denies: dyspnea GI: Reports: abdominal pain : Denies: dysuria Musc: Denies: neck pain or back pain Skin/Breast: Denies: rash Neuro: Denies: headache(s) Psych: Denies: depression Robel/Lymph: Denies: easy bruising All/Imm: Denies: urticaria PFSH ED PFSH: Medical History Chronic abdominal pain Chronic hepatitis B Chronic hip pain Cirrhosis Diabetes mellitus Encephalopathy Gastroesophageal reflux GI bleeding Hypertension Leg cramps Pelvic inflammatory disease Stomach cancer Surgical History H/O tubal ligation History of hysterectomy History of laparotomy Family History Other Cancer Diabetes Social History Smoking and tobacco status: current every day smoker cigarettes Packs smoked per day: 0.25 Alcohol intake: never Physical Exam Const: COMMON NORMALS: no acute distress, patient oriented x3 and healthy appearing HENMT: COMMON NORMALS: normocephalic and atraumatic HEAD & SCALP: normocephalic and atraumatic Eye: COMMON NORMALS: Equal, round and reactive pupils present and EOMs intact bilaterally PUPIL: Yes Equal, round and reactive pupils present Neck/C-Spine: COMMON NORMALS: full ROM and supple Chest: COMMONS NORMALS: normal inspection of the chest and normal palpation of entire chest wall Resp: COMMON NORMALS: normal respiratory effort, No retractions, No use of accessory muscles and clear to auscultation bilaterally AUSCULTATION: clear to auscultation bilaterally Cardio: COMMON NORMALS: regular rate, regular rhythm and No murmurs present (Cardio) RATE: regular rate RHYTHM: regular rhythm GI: COMMON NORMALS: Normal to inspection, nondistended, normoactive bowel sounds present, Soft to palpation, non-tender and no masses PALPATION: Yes Soft to palpation Extremity: COMMON NORMALS: normal to inspection and full ROM Neuro: COMMON NORMALS: patient oriented x3, moves all extremities and no focal motor deficits Psych: COMMON NORMALS: mental status grossly normal, Normal thought process present and cooperative THOUGHT PROCESS: Normal thought process present Skin: COMMON NORMALS: no rashes or lesions noted and no wounds GENERAL SKIN EXAM: no rashes or lesions noted Course Vital Signs: Vital signs: Vital Signs Temperature 98.2 F 11/20/19 08:16 Pulse Rate 89 11/20/19 08:16 Respiratory Rate 24 H 11/20/19 08:16 Blood Pressure 130/97 11/20/19 08:16 Pulse Oximetry 99 11/20/19 08:16 MDM - Abdominal Pain MDM Narrative: Medical decision making narrative: Maribell presents here with chronic abdominal pain. Initial vital signs here are normal. Will check CBC CMP lipase along with urine. Patient's care turned over to Dr. Ware to follow these labs. Lab Data: Labs: Lab Results 11/20/19 11/20/19 11/20/19 Range/Units 05:07 05:07 07:04 WBC 6.4 (4.0-10.0) 10^3/ uL RBC 4.01 L (4.1-5.3) 10^6/u L Hgb 12.5 (11.5-15.3) g/dL Hct 37.3 (37.0-47.0) % MCV 93.0 (81-99) fL MCH 31.2 (28.0-34.0) pg MCHC 33.5 (30.0-36.0) g/dL RDW 13.5 (12.1-15.1) % Plt Count 141 (130-400) 10^3/c mm MPV 10.4 (7.4-10.4) fL Neut % (Auto) 72.1 % Lymph % (Auto) 19.3 % [place] % (Auto) 7.5 % Eos % (Auto) 0.2 % Baso % (Auto) 0.6 % Neut # (Auto) 4.62 (1.8-7.7) 10^3/u L Lymph # (Auto) 1.2 (0.8-4.8) 10^3/u L [place] # (Auto) 0.5 (0.2-0.9) 10^3/u L Eos # (Auto) 0.0 (0.0-0.8) 10^3/u L Baso # (Auto) 0.0 (0.0-0.1) 10^3/u L Nucleated RBC % (a uto) 0 % Nucleated RBCs # 0.0 /100WBC Sodium 142 (136-145) mmol/L Potassium 3.8 (3.5-5.1) mmol/L Chloride 109 H (98-107) mmol/L Carbon Dioxide 22 (22-29) mmol/L Anion Gap 14.8 (5-19) BUN 13 (6-20) mg/dL Creatinine 0.5 (0.5-0.9) mg/dL GFR Calculation 133.4 H (90-130) mL/min Glucose 148 H (65-115) mg/dL Calculated Osmolal ity 293 (285-295) mOsm/k g Calcium 8.7 (8.5-10.5) mg/dL Total Bilirubin 1.4 H (0.15-1.2) mg/dL AST 40 H (0-32) U/L ALT 15 (0-33) U/L Alkaline Phosphata se 108 H (35-105) IU/L Total Protein 8.0 (6.6-8.7) g/dL Albumin 3.5 (3.5-5.2) g/dL Globulin 4.5 (1.3-4.6) g/dL Lipase 17 (13-60) U/L Urine Color Yellow (Yellow) Urine Appearance Clear (CLEAR) Urine pH 7.0 (5-7) Ur Specific Gravit y 1.005 (1.005-1.030) Urine Protein Neg (Negative) Urine Glucose (UA) Norm (Normal) Urine Ketones 2+ H (Negative) Urine Blood 2+ H (Negative) Urine Nitrate Negative (Negative) Urine Bilirubin Neg (NEGATIVE) Urine Urobilinogen 1 H (Negative) mg/dL Ur Leukocyte Imani ase Negative (Negative) Urine RBC 0-4 H (0-2) /hpf Urine WBC None (0-5) /hpf Ur Squamous Epith Cells 10-15 H (0-5) Amorphous Sediment Not Reportable Urine Bacteria Trace (NONE) Urine Mucus 1+ Discharge Plan Discharge Patient Disposition: Home Clinical Impression: Chronic abdominal pain, Cirrhosis Condition: Stable Prescriptions: No Action Xifaxan 550 mg tablet 550 mg PO BID RF: 0 tizanidine 6 mg capsule 6 mg PO TID PRN (Reason: muscle spasticity) Qty: 90 RF: 0 tenofovir disoproxil fumarate 300 mg tablet 300 mg PO DAILY Qty: 30 RF: 6 pantoprazole 40 mg tablet,delayed release (DR/EC) 40 mg PO DAILY Qty: 90 RF: 1 furosemide 40 mg tablet 40 mg PO DAILY RF: 0 doxepin 50 mg capsule 50 mg PO BEDTIME RF: 0 lamotrigine 200 mg tablet 200 mg PO DAILY RF: 0 sucralfate 100 mg/mL suspension 10 ml PO QID RF: 0 spironolactone 100 mg tablet 100 mg PO DAILY RF: 0 potassium chloride 20 mEq/15 mL liquid 20 meq PO DAILY RF: 0 levetiracetam 250 mg tablet 250 mg PO BID RF: 0 levothyroxine 50 mcg tablet 50 mcg PO QAM RF: 0 Lidocaine Viscous 2 % solution See Rx Instructions .ROUTE .COMPLEX RF: 0 gabapentin 100 mg capsule 100 mg PO BID RF: 0 hydromorphone 4 mg tablet 4 mg PO QID PRN (Reason: Pain) RF: 0 Narcan 4 mg/actuation spray,non-aerosol See Rx Instructions .ROUTE .COMPLEX RF: 0 Discharge Orders: Discharge Order (Routine); Ordered 11/20/19 Ordered By: Lane Gaffney Referrals: Maribell Hodges DO [Primary Care Provider] - Discharge Diet: Clear Liquid Discharge Activity: Increase activity as tolerated Activity Restrictions/Additional Instructions: Clear liquid diet x48 hours advance as tolerated Discharge Date/Time: 11/20/19 08:18 Sign Out Sign Out Data: Patient Sign Out occurred on 11/20/19 at 05:57. Patient's care was discussed, and care was transferred from to Lane Gaffney DO. Coding Level of Care Code ED Battery Mechanic for Chg 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 Documented by User: Lane Gaffney DO 11/21/19 10:50 HPI - Abdominal Pain General: Chief Complaint: Abdominal Pain Stated Complaint: N/V Time Seen by Provider: 11/20/19 04:51 PFSH ED PFSH: Medical History Chronic abdominal pain Chronic hepatitis B Chronic hip pain Cirrhosis Diabetes mellitus Encephalopathy Gastroesophageal reflux GI bleeding Hypertension Leg cramps Pelvic inflammatory disease Stomach cancer Surgical History H/O tubal ligation History of hysterectomy History of laparotomy Family History Other Cancer Diabetes Social History Smoking and tobacco status: current every day smoker cigarettes Packs smoked per day: 0.25 Alcohol intake: never Course Vital Signs: Vital signs: Vital Signs Temperature 98.2 F 11/20/19 08:16 Pulse Rate 89 11/20/19 08:16 Respiratory Rate 24 H 11/20/19 08:16 Blood Pressure 130/97 11/20/19 08:16 Pulse Oximetry 99 11/20/19 08:16 MDM - Abdominal Pain MDM Narrative: Medical decision making narrative: Patient continued complaining abdominal pain this is a longstanding and chronic problem with her reviewed the notes from earlier this year it is been recommended that she follow-up with pain management by Dr. Hodges. Patient is vague on whether or not she is done. She is adamant that 2 mg every 6 hours of hydromorphone is not adequate for pain and is wanting more. Discussed with her that for chronic problem we would not prescribe that through the emergency room but that she would have to follow-up with her primary care doctor or pain management in regards to her long-term pain control issues. The CT today and the laboratory tests do not indicate anything acute we will discharge her home encourage clear liquid diet for 48 hours then advance as tolerated. Lab Data: Labs: Lab Results 11/20/19 11/20/19 11/20/19 Range/Units 05:07 05:07 07:04 WBC 6.4 (4.0-10.0) 10^3/ uL RBC 4.01 L (4.1-5.3) 10^6/u L Hgb 12.5 (11.5-15.3) g/dL Hct 37.3 (37.0-47.0) % MCV 93.0 (81-99) fL MCH 31.2 (28.0-34.0) pg MCHC 33.5 (30.0-36.0) g/dL RDW 13.5 (12.1-15.1) % Plt Count 141 (130-400) 10^3/c mm MPV 10.4 (7.4-10.4) fL Neut % (Auto) 72.1 % Lymph % (Auto) 19.3 % [place] % (Auto) 7.5 % Eos % (Auto) 0.2 % Baso % (Auto) 0.6 % Neut # (Auto) 4.62 (1.8-7.7) 10^3/u L Lymph # (Auto) 1.2 (0.8-4.8) 10^3/u L [place] # (Auto) 0.5 (0.2-0.9) 10^3/u L Eos # (Auto) 0.0 (0.0-0.8) 10^3/u L Baso # (Auto) 0.0 (0.0-0.1) 10^3/u L Nucleated RBC % (a uto) 0 % Nucleated RBCs # 0.0 /100WBC Sodium 142 (136-145) mmol/L Potassium 3.8 (3.5-5.1) mmol/L Chloride 109 H (98-107) mmol/L Carbon Dioxide 22 (22-29) mmol/L Anion Gap 14.8 (5-19) BUN 13 (6-20) mg/dL Creatinine 0.5 (0.5-0.9) mg/dL GFR Calculation 133.4 H (90-130) mL/min Glucose 148 H (65-115) mg/dL Calculated Osmolal ity 293 (285-295) mOsm/k g Calcium 8.7 (8.5-10.5) mg/dL Total Bilirubin 1.4 H (0.15-1.2) mg/dL AST 40 H (0-32) U/L ALT 15 (0-33) U/L Alkaline Phosphata se 108 H (35-105) IU/L Total Protein 8.0 (6.6-8.7) g/dL Albumin 3.5 (3.5-5.2) g/dL Globulin 4.5 (1.3-4.6) g/dL Lipase 17 (13-60) U/L Urine Color Yellow (Yellow) Urine Appearance Clear (CLEAR) Urine pH 7.0 (5-7) Ur Specific Gravit y 1.005 (1.005-1.030) Urine Protein Neg (Negative) Urine Glucose (UA) Norm (Normal) Urine Ketones 2+ H (Negative) Urine Blood 2+ H (Negative) Urine Nitrate Negative (Negative) Urine Bilirubin Neg (NEGATIVE) Urine Urobilinogen 1 H (Negative) mg/dL Ur Leukocyte Imani ase Negative (Negative) Urine RBC 0-4 H (0-2) /hpf Urine WBC None (0-5) /hpf Ur Squamous Epith Cells 10-15 H (0-5) Amorphous Sediment Not Reportable Urine Bacteria Trace (NONE) Urine Mucus 1+ Discharge Plan Discharge Patient Disposition: Home Clinical Impression: Chronic abdominal pain, Cirrhosis Condition: Stable Prescriptions: No Action Xifaxan 550 mg tablet 550 mg PO BID RF: 0 tizanidine 6 mg capsule 6 mg PO TID PRN (Reason: muscle spasticity) Qty: 90 RF: 0 tenofovir disoproxil fumarate 300 mg tablet 300 mg PO DAILY Qty: 30 RF: 6 pantoprazole 40 mg tablet,delayed release (DR/EC) 40 mg PO DAILY Qty: 90 RF: 1 furosemide 40 mg tablet 40 mg PO DAILY RF: 0 doxepin 50 mg capsule 50 mg PO BEDTIME RF: 0 lamotrigine 200 mg tablet 200 mg PO DAILY RF: 0 sucralfate 100 mg/mL suspension 10 ml PO QID RF: 0 spironolactone 100 mg tablet 100 mg PO DAILY RF: 0 potassium chloride 20 mEq/15 mL liquid 20 meq PO DAILY RF: 0 levetiracetam 250 mg tablet 250 mg PO BID RF: 0 levothyroxine 50 mcg tablet 50 mcg PO QAM RF: 0 Lidocaine Viscous 2 % solution See Rx Instructions .ROUTE .COMPLEX RF: 0 gabapentin 100 mg capsule 100 mg PO BID RF: 0 hydromorphone 4 mg tablet 4 mg PO QID PRN (Reason: Pain) RF: 0 Narcan 4 mg/actuation spray,non-aerosol See Rx Instructions .ROUTE .COMPLEX RF: 0 Discharge Orders: Discharge Order (Routine); Ordered 11/20/19 Ordered By: Lane Gaffney Referrals: Maribell Hodges DO [Primary Care Provider] - Discharge Diet: Clear Liquid Discharge Activity: Increase activity as tolerated Activity Restrictions/Additional Instructions: Clear liquid diet x48 hours advance as tolerated Discharge Date/Time: 11/20/19 08:18 Sign Out Sign Out Data: Patient Sign Out occurred on 11/20/19 at 05:57. Patient's care was discussed, and care was transferred from to Lane Gaffney DO. Coding Level of Care Code ED Battery Mechanic for Chg 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
[2019-11-20] MEDS: sodium chloride 0.9% 1,000 ML 999 ML IV (05:00)
[2019-11-20] MEDS: metoclopramide 5 mg/mL SDV 2 mL 10 MG IVP (05:10)
[2019-11-20] MEDS: diphenhydrAMINE 50 mg/mL SDV 1mL IVP (05:12)
[2019-11-20 05:22] LABS: Basophils % 0.6 %; Eosinophils % 0.2 %; Hematocrit 37.3 % (37.0-47.0); Hemoglobin 12.5 g/dL (11.5-15.3); Lymphocytes # 1.2 10^3/uL (0.8-4.8); Lymphocytes % 19.3 %; Mean Corpuscular HGB Conc 33.5 g/dL (30.0-36.0); Mean Corpuscular Hemoglobin 31.2 pg (28.0-34.0); Mean Platelet Volume 10.4 fL (7.4-10.4); Monocytes # 0.5 10^3/uL (0.2-0.9); Monocytes % 7.5 %; Neutrophils # 4.62 10^3/uL (1.8-7.7); Neutrophils % 72.1 %; Nucleated Red Blood Cells % 0 %; Platelet Count 141 10^3/cmm (130-400); Red Blood Count 4.01 10^6/uL (4.1-5.3); Red Cell Distribution Width 13.5 % (12.1-15.1); White Blood Count 6.4 10^3/uL (4.0-10.0)
[2019-11-20 05:35] VITALS: RESP 18; O2SAT 97
[2019-11-20] MEDS: morphine 4 mg/mL SDV 1 mL IVP (05:35)
--- NOTE | 2019-11-20 05:35 | PC.NURSE ---
during pt rounds, pt requesting pain meds. notified
[2019-11-20 05:36] LABS: Alanine Aminotransferase 15 U/L (0-33); Albumin Level 3.5 g/dL (3.5-5.2); Alkaline Phosphatase 108 IU/L (35-105); Anion Gap 14.8 (5-19); Aspartate Amino Transferase 40 U/L (0-32); Blood Urea Nitrogen 13 mg/dL (6-20); Calcium 8.7 mg/dL (8.5-10.5); Carbon Dioxide 22 mmol/L (22-29); Chloride 109 mmol/L (98-107); Globulin 4.5 g/dL (1.3-4.6); Glomerular Filtration Rate 133.4 mL/min (90-130); Glucose 148 mg/dL (65-115); Lipase 17 U/L (13-60); Osmolality Calculated 293 mOsm/kg (285-295); Potassium 3.8 mmol/L (3.5-5.1); Sodium 142 mmol/L (136-145); Total Bilirubin 1.4 mg/dL (0.15-1.2)
--- NOTE | 2019-11-20 05:37 | CTR_ITS ---
PROCEDURE INFORMATION: Exam: CT Abdomen And Pelvis With Contrast Exam date and time: 11/20/2019 6:05 AM Age: 44 years old Clinical indication: Nausea and vomiting; Abdominal pain; Prior surgery; Surgery type: Tubal ligation, hysterectomy, and laparotomoy. ; Patient HX: Generalized abd pain with n/v. Recent c. Diff diagnosis. History of hep. B and cirrhosis. TECHNIQUE: Imaging protocol: Computed tomography of the abdomen and pelvis with intravenous contrast. Radiation optimization: All CT scans at this facility use at least one of these dose optimization techniques: automated exposure control; mA and/or kV adjustment per patient size (includes targeted exams where dose is matched to clinical indication); or iterative reconstruction. Contrast material: OMNI 300; Contrast volume: 95 ml; Contrast route: INTRAVENOUS (IV); COMPARISON: CT abdomen pelvis w con* [id number] 05/05/2019 11:35 AM RADIATION DOSE METRICS: Total DLP (mGy-cm): 1068.8 FINDINGS: Lungs: Interstitial prominence, chronic granulomatous disease, and mild airspace disease. Liver: Lobulated morphology of the liver in a pattern of cirrhosis, along with fatty infiltration. Stable 6 and 8 mm nodular hepatic hypodensities. Gallbladder and bile ducts: Stable biliary ductal dilatation with the common bile duct measuring 12 mm in maximum diameter. No cholelithiasis. Pancreas: No pancreatic mass or ductal dilatation. Spleen: Enlarged spleen measuring 15.3 cm in length. Adrenals: Unremarkable adrenals. Kidneys and ureters: Stable 14 mm nodular hypodensity in the posterior right kidney which does not fulfill CT criteria for a simple cyst. No hydronephrosis. Stomach and bowel: No significant small bowel dilatation. Prominent stool in the right colon. Mild wall thickening in the nondistended stomach. Appendix: No acute appendicitis. Intraperitoneal space: No significant free fluid. Vasculature: Normal caliber of the abdominal aorta. Vascular calcification. Dilated venous collaterals. Lymph nodes: Subcentimeter lymph nodes. Bladder: Nondistended bladder. Reproductive: Status post hysterectomy. Bones/joints: Marginal osteophytes. Soft tissues: Small umbilical hernia. Mild infiltration of subcutaneous fat. When correlating with the previous study, no significant interval changes are present. CT/CT abdomen pelvis w con* [id number] IMPRESSION: Stable appearance of the abdomen/pelvis, not significantly changed from 05/05/19. Radiation Dose CTDIVOL = (mGy): DLP = 1068.8 (mGy-cm)
--- NOTE | 2019-11-20 06:10 | PC.NURSE ---
pt unable to provide urine sample due to diarrhea
[2019-11-20 06:46] VITALS: BP 133/92; PULSE 90; RESP 24; TEMP 36.8; O2SAT 99
[2019-11-20 07:18] LABS: Add Urine Microscopic? YES; Bilirubin Urine Neg (NEGATIVE); Blood Urine 2+ (Negative); Glucose Urine UA Norm (Normal); Ketones Urine 2+ (Negative); Leukocyte Esterase Urine Negative (Negative); Nitrate Urine Negative (Negative); Protein Urine Neg (Negative); Specific Gravity, Urine 1.005 (1.005-1.030); Urine Appearance Clear (CLEAR); Urine Color Yellow (Yellow); Urobilinogen Urine 1 mg/dL (Negative)
[2019-11-20 07:30] LABS: Add Urine Culture? No; Bacteria Urine TRACE; Mucus Urine 1+; RBC Urine 0-4 /hpf (0-2)
[2019-11-20 08:16] VITALS: BP 130/97; PULSE 89; RESP 24; TEMP 36.8; O2SAT 99
== END 2019-11-20 08:18 | disposition home or self-care (01) ==
PROVIDERS: Emergency Medicine; Emergency Provider Family Medicine; PCP Family Medicine
DX: G89.29 Other chronic pain (principal); K74.60 Unspecified cirrhosis of liver; Z86.19 Personal history of other infectious and parasitic diseases; E11.9 Type 2 diabetes mellitus without complications; I10 Essential (primary) hypertension; Z85.028 Personal history of other malignant neoplasm of stomach; F17.210 Nicotine dependence, cigarettes, uncomplicated
CPT/HCPCS: 12345; 74177; 80053; 81001; 83690; 85025; 96361; 96374; 96375; 99283; J1200; J2270; J2765; J7030; Q9967

== ENCOUNTER 2020-10-12 14:54 | Outpatient (CLI) | payer MEDICAID, SELFPAY ==
[2020-10-12 15:49] LABS: Ammonia 266 umol/L (11-51)
[2020-10-12 15:50] LABS: Alanine Aminotransferase 30 U/L (0-33); Albumin Level 3.4 g/dL (3.5-5.2); Alkaline Phosphatase 105 IU/L (35-105); Aspartate Amino Transferase 48 U/L (0-32); Blood Urea Nitrogen 10 mg/dL (6-20); Carbon Dioxide 25 mmol/L (22-29); Chloride 103 mmol/L (98-107); Globulin 4.3 g/dL (1.3-4.6); Glomerular Filtration Rate 107.6 mL/min (90-130); Glucose 126 mg/dL (65-115); Osmolality Calculated 291 mOsm/kg (285-295); Sodium 140 mmol/L (136-145); Total Bilirubin 0.6 mg/dL (0.15-1.2); Total Protein 7.7 g/dL (6.6-8.7)
[2020-10-12 15:56] LABS: Anion Gap 15.7 (5-19); Potassium 3.7 mmol/L (3.5-5.1)
== END 2020-10-12 14:55 | disposition home or self-care (01) ==
PROVIDERS: PCP Family Medicine; Referring Provider Family Medicine; Visit Provider Family Medicine
DX: K74.60 Unspecified cirrhosis of liver (principal); E72.20 Disorder of urea cycle metabolism, unspecified; B18.0 Chronic viral hepatitis B with delta-agent; E11.42 Type 2 diabetes mellitus with diabetic polyneuropathy; K76.6 Portal hypertension
CPT/HCPCS: 36415; 80053; 82140

== ENCOUNTER 2020-10-17 13:11 | Inpatient (IN) | payer MEDICAID, SELFPAY ==
[2020-10-17] VITALS (9 sets, daily range): BP systolic 136–165; BP diastolic 69–110; PULSE 93–112; RESP 18–26; TEMP 36.6–38.4; O2SAT 93–98; BMI 36.2
--- NOTE | 2020-10-17 13:41 | ECG_ITS ---
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 ([email or web address] centerEventus Diagnosticsmer[facility] st[facility].MR Presta/store/OV/[id number]
--- NOTE | 2020-10-17 13:41 | XRR_ITS ---
PROCEDURE INFORMATION: Exam: XR Chest Exam date and time: 10/17/2020 1:41 PM Age: 45 years old Clinical indication: Fever and shortness of breath; Patient HX: SOB with fever. ; Additional info: Dyspnea/fever TECHNIQUE: Imaging protocol: XR of the chest. Views: 1 view. COMPARISON: CR Chest 1 [place] [id number] 12/01/2018 6:48 AM FINDINGS: Lungs: Unremarkable. No consolidation. Pleural spaces: Unremarkable. No pleural effusion. No pneumothorax. Heart/Mediastinum: Unremarkable. No cardiomegaly. Bones/joints: Unremarkable. XR/XR chest 1V portable [id number] IMPRESSION: No acute findings.
--- NOTE | 2020-10-17 13:44 | ED_ITS ---
HPI - Fever General: Chief Complaint: Fever Stated Complaint: ALL OVER BODY ACHES Time Seen by Provider: 10/17/20 13:23 History of Present Illness: HPI Narrative: 45-year-old female presents to the emergency room with complaints of fever and generally not feeling well. She is tachycardic and tachypneic with a low-grade fever of 100. She reports she was out more elevated at home when she took ibuprofen twice overnight. She has had a little bit of a cough denies any diarrhea. She has a known history of hepatitis B and liver cirrhosis. She has had problems with elevated ammonia levels in the past. She denies any vomiting or diarrhea. She is not vaccinated for Covid nor she been known to have it in the past. He was Cerner seen earlier this week [place] primary care provider and started on Levaquin for presumed cystitis. She is denying any flank pain at this time. MD elicited complaint: fever Pertinent past history: other (Otitis B) Onset (ago): hour(s) Context: recent antibiotic use Exacerbating factors: nothing Relieving factors: nothing Associated symptoms: Reports chills, cough, myalgias and nausea; Deny abdominal pain, flank pain, chest pain, confusion, diarrhea, dysuria, extremity pain, headache(s), nasal congestion, night sweats, rash, rhinorrhea, short of breath, sinus pain, stiffness, sore throat, vaginal discharge, vomiting or weight loss Treatments prior to arrival fever: ibuprofen Review of Systems Const: Reports: chills; Denies: night sweats ENMT: Denies: throat pain, ear or mastoid pain, nasal discharge, nasal congestion or sinus pain Card: Denies: chest pain Resp: Denies: dyspnea, productive cough or non-productive cough GI: Reports: nausea; Denies: abdominal pain, vomiting or diarrhea : Denies: flank pain, dysuria or vaginal discharge Musc: Denies: extremity pain Skin/Breast: Denies: rash or pruritus Neuro: Denies: headache(s) or confusion [facility] ED PFSH: Medical History (Updated 10/17/20 @ 17:[address]affney DO) Chronic abdominal pain Chronic hepatitis B Chronic hip pain Cirrhosis Diabetes mellitus Encephalopathy Gastroesophageal reflux GI bleeding Hypertension Leg cramps Pelvic inflammatory disease Stomach cancer Surgical History H/O tubal ligation History of hysterectomy History of laparotomy Family History Other Cancer Diabetes Social History Smoking and tobacco status: current every day smoker cigarettes Packs smoked per day: 0.25 Alcohol intake: never Physical Exam Const: COMMON NORMALS: no acute distress GENERAL APPEARANCE: cooperative and comfortable ORIENTATION/CONSCIOUSNESS: Yes awake, Yes oriented to person, Yes oriented to place and Yes oriented to time HENMT: COMMON NORMALS: normocephalic, atraumatic and hearing grossly normal bilaterally HEAD & SCALP: normocephalic and atraumatic Neck/C-Spine: COMMON NORMALS: no JVD Resp: COMMON NORMALS: normal respiratory effort, No retractions, No use of accessory muscles and clear to auscultation bilaterally AUSCULTATION: clear to auscultation bilaterally Cardio: COMMON NORMALS: no JVD, regular rate, regular rhythm and No murmurs present (Cardio) RATE: regular rate RHYTHM: regular rhythm GI: COMMON NORMALS: Soft to palpation and No hepatosplenomegaly present AUSCULTATION: Yes normoactive bowel sounds PALPATION: Yes Soft to palpation, No Tenderness to palpation present (GI), No Guarding due to palpation present (GI) and Yes No hepatosplenomegaly present Extremity: COMMON NORMALS: normal to inspection, capillary refill normal, no clubbing, cyanosis or edema, no calf tenderness and no pedal edema Neuro: SENSORIUM/ORIENTATION: Yes oriented to person, Yes oriented to place and Yes oriented to time Skin: COMMON NORMALS: no rashes or lesions noted GENERAL SKIN EXAM: no rashes or lesions noted Course Vital Signs: Vital signs: Vital Signs Temperature 101.2 F H 10/17/20 15:00 Pulse Rate 104 H 10/17/20 16:00 Respiratory Rate 20 H 10/17/20 16:00 Blood Pressure 165/90 10/17/20 16:00 Pulse Oximetry 96 10/17/20 16:00 MDM - Fever MDM Narrative: Medical decision making narrative: Clinically I suspect this patient may have Covid her lab pattern is suggestive of it. She does have a fever which we don't have a specific exam answer for. She unfortunately was on Levaquin as an outpatient prior to coming in some not sure blood cultures will be very reliable. We'll do a venous duplex check for DVT she is complaining a lot of right upper quadrant abdominal pain so we have a CT pending as well discussed Dr. Barrera broad-spectrum antibiotics anticoagulants will keep urine quarantine until we get her pain Covid PCR back. She has some hyponatremia as well which can be addressed as an inpatient. Orders are written. Lab Data: Labs: Lab Results 10/17/20 10/17/20 10/17/20 Range/Units 14:02 14:06 14:40 WBC 7.0 (4.0-10.0) 10^3/ uL RBC 4.66 (4.1-5.3) 10^6/u L Hgb 14.4 (11.5-15.3) g/dL Hct 42.3 (37.0-47.0) % MCV 90.8 (81-99) fL MCH 30.9 (28.0-34.0) pg MCHC 34.0 (30.0-36.0) g/dL RDW 12.5 (12.1-15.1) % Plt Count 122 L (130-400) 10^3/c mm MPV 11.0 H (7.4-10.4) fL Neut % (Auto) 76.7 % Lymph % (Auto) 8.7 % [place] % (Auto) 12.5 % Eos % (Auto) 0.9 % Baso % (Auto) 0.6 % Neut # (Auto) 5.41 (1.8-7.7) 10^3/u L Lymph # (Auto) 0.6 L (0.8-4.8) 10^3/u L [place] # (Auto) 0.9 (0.2-0.9) 10^3/u L Eos # (Auto) 0.1 (0.0-0.8) 10^3/u L Baso # (Auto) 0.0 (0.0-0.1) 10^3/u L Nucleated RBC % (a uto) 0 % Nucleated RBCs # 0.0 /100WBC PT (12.1-14.9) SECO NDS INR (0.8-1.2) APTT (23.9-36.7) SECO NDS D-Dimer (0-0.59) ug/mIFE U Sodium (136-145) mmol/L Potassium (3.5-5.1) mmol/L Chloride (98-107) mmol/L Carbon Dioxide (22-29) mmol/L Anion Gap (5-19) BUN (6-20) mg/dL Creatinine (0.5-0.9) mg/dL GFR Calculation (90-130) mL/min Glucose (65-115) mg/dL Calculated Osmolal ity (285-295) mOsm/k g Lactic Acid (0.5-2.2) mmol/L Calcium (8.5-10.5) mg/dL Total Bilirubin (0.15-1.2) mg/dL AST (0-32) U/L ALT (0-33) U/L Alkaline Phosphata se (35-105) IU/L Ammonia (11-51) umol/L Lactate Dehydrogen ase (135-214) U/L Creatine Kinase (26-192) U/L C-Reactive Protein (0.0-4.9) mg/L Total Protein (6.6-8.7) g/dL Albumin (3.5-5.2) g/dL Globulin (1.3-4.6) g/dL Procalcitonin (0-0.5) ng/mL Urine Color Yellow (Yellow) Urine Appearance Hazy A (CLEAR) Urine pH 5 (5-7) Ur Specific Gravit y 1.010 (1.005-1.030) Urine Protein Neg (Negative) Urine Glucose (UA) Norm (Normal) Urine Ketones Negative (Negative) Urine Blood Neg (Negative) Urine Nitrate Negative (Negative) Urine Bilirubin Neg (Negative) Urine Urobilinogen 1 H (Negative) mg/dL Ur Leukocyte Imani ase Negative (Negative) Urine RBC None (0-2) /hpf Urine WBC None (0-5) /hpf Ur Squamous Epith Cells 10-15 H (0-5) /hpf Amorphous Sediment Not Reportable Urine Bacteria Trace (NONE) /hpf Urine Mucus Trace /hpf Influenza Type A A g (Negative) Influenza Type B A g (Negative) SARS-CoV-2 Ag (Rap id) Negative (Negative) 08/01/21 08/01/21 08/01/21 Range/Units 14:40 14:40 14:40 WBC (4.0-10.0) 10^3/ uL RBC (4.1-5.3) 10^6/u L Hgb (11.5-15.3) g/dL Hct (37.0-47.0) % MCV (81-99) fL MCH (28.0-34.0) pg MCHC (30.0-36.0) g/dL RDW (12.1-15.1) % Plt Count (130-400) 10^3/c mm MPV (7.4-10.4) fL Neut % (Auto) % Lymph % (Auto) % [place] % (Auto) % Eos % (Auto) % Baso % (Auto) % Neut # (Auto) (1.8-7.7) 10^3/u L Lymph # (Auto) (0.8-4.8) 10^3/u L [place] # (Auto) (0.2-0.9) 10^3/u L Eos # (Auto) (0.0-0.8) 10^3/u L Baso # (Auto) (0.0-0.1) 10^3/u L Nucleated RBC % (a uto) % Nucleated RBCs # /100WBC PT 13.70 (12.1-14.9) SECO NDS INR 1.02 (0.8-1.2) APTT 29.0 (23.9-36.7) SECO NDS D-Dimer 1.73 H (0-0.59) ug/mIFE U Sodium 128 L (136-145) mmol/L Potassium 3.7 (3.5-5.1) mmol/L Chloride 93 L (98-107) mmol/L Carbon Dioxide 24 (22-29) mmol/L Anion Gap 14.7 (5-19) BUN 15 (6-20) mg/dL Creatinine 0.8 (0.5-0.9) mg/dL GFR Calculation 77.2 L (90-130) mL/min Glucose 102 (65-115) mg/dL Calculated Osmolal ity 267 L (285-295) mOsm/k g Lactic Acid 1.9 (0.5-2.2) mmol/L Calcium 8.3 L (8.5-10.5) mg/dL Total Bilirubin 0.6 (0.15-1.2) mg/dL AST 33 H (0-32) U/L ALT 19 (0-33) U/L Alkaline Phosphata se 95 (35-105) IU/L Ammonia (11-51) umol/L Lactate Dehydrogen ase 352 H (135-214) U/L Creatine Kinase 148 (26-192) U/L C-Reactive Protein 7.8 H (0.0-4.9) mg/L Total Protein 8.1 (6.6-8.7) g/dL Albumin 3.6 (3.5-5.2) g/dL Globulin 4.5 (1.3-4.6) g/dL Procalcitonin 1.92 H (0-0.5) ng/mL Urine Color (Yellow) Urine Appearance (CLEAR) Urine pH (5-7) Ur Specific Gravit y (1.005-1.030) Urine Protein (Negative) Urine Glucose (UA) (Normal) Urine Ketones (Negative) Urine Blood (Negative) Urine Nitrate (Negative) Urine Bilirubin (Negative) Urine Urobilinogen (Negative) mg/dL Ur Leukocyte Imani ase (Negative) Urine RBC (0-2) /hpf Urine WBC (0-5) /hpf Ur Squamous Epith Cells (0-5) /hpf Amorphous Sediment Urine Bacteria (NONE) /hpf Urine Mucus /hpf Influenza Type A A g (Negative) Influenza Type B A g (Negative) SARS-CoV-2 Ag (Rap id) (Negative) 10/17/20 10/17/20 Range/Units 14:40 16:27 WBC (4.0-10.0) 10^3/ uL RBC (4.1-5.3) 10^6/u L Hgb (11.5-15.3) g/dL Hct (37.0-47.0) % MCV (81-99) fL MCH (28.0-34.0) pg MCHC (30.0-36.0) g/dL RDW (12.1-15.1) % Plt Count (130-400) 10^3/c mm MPV (7.4-10.4) fL Neut % (Auto) % Lymph % (Auto) % [place] % (Auto) % Eos % (Auto) % Baso % (Auto) % Neut # (Auto) (1.8-7.7) 10^3/u L Lymph # (Auto) (0.8-4.8) 10^3/u L [place] # (Auto) (0.2-0.9) 10^3/u L Eos # (Auto) (0.0-0.8) 10^3/u L Baso # (Auto) (0.0-0.1) 10^3/u L Nucleated RBC % (a uto) % Nucleated RBCs # /100WBC PT (12.1-14.9) SECO NDS INR (0.8-1.2) APTT (23.9-36.7) SECO NDS D-Dimer (0-0.59) ug/mIFE U Sodium (136-145) mmol/L Potassium (3.5-5.1) mmol/L Chloride (98-107) mmol/L Carbon Dioxide (22-29) mmol/L Anion Gap (5-19) BUN (6-20) mg/dL Creatinine (0.5-0.9) mg/dL GFR Calculation (90-130) mL/min Glucose (65-115) mg/dL Calculated Osmolal ity (285-295) mOsm/k g Lactic Acid (0.5-2.2) mmol/L Calcium (8.5-10.5) mg/dL Total Bilirubin (0.15-1.2) mg/dL AST (0-32) U/L ALT (0-33) U/L Alkaline Phosphata se (35-105) IU/L Ammonia 75 H (11-51) umol/L Lactate Dehydrogen ase (135-214) U/L Creatine Kinase (26-192) U/L C-Reactive Protein (0.0-4.9) mg/L Total Protein (6.6-8.7) g/dL Albumin (3.5-5.2) g/dL Globulin (1.3-4.6) g/dL Procalcitonin (0-0.5) ng/mL Urine Color (Yellow) Urine Appearance (CLEAR) Urine pH (5-7) Ur Specific Gravit y (1.005-1.030) Urine Protein (Negative) Urine Glucose (UA) (Normal) Urine Ketones (Negative) Urine Blood (Negative) Urine Nitrate (Negative) Urine Bilirubin (Negative) Urine Urobilinogen (Negative) mg/dL Ur Leukocyte Imani ase (Negative) Urine RBC (0-2) /hpf Urine WBC (0-5) /hpf Ur Squamous Epith Cells (0-5) /hpf Amorphous Sediment Urine Bacteria (NONE) /hpf Urine Mucus /hpf Influenza Type A A g Negative (Negative) Influenza Type B A g Negative (Negative) SARS-CoV-2 Ag (Rap id) (Negative) Discharge Plan Discharge Patient Disposition: Admitted As Inpatient Clinical Impression: Pulmonary embolism, Cirrhosis, Hepatitis B, Clinical diagnosis of COVID-19, Fever, Chronic abdominal pain, Hyponatremia Condition: Stable Coding Level of Care Code ED Toolroom Attendant for Margarito 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
[2020-10-17 14:56] LABS: Basophils % 0.6 %; Eosinophils # 0.1 10^3/uL (0.0-0.8); Eosinophils % 0.9 %; Hematocrit 42.3 % (37.0-47.0); Hemoglobin 14.4 g/dL (11.5-15.3); Lymphocytes # 0.6 10^3/uL (0.8-4.8); Lymphocytes % 8.7 %; Mean Corpuscular Hemoglobin 30.9 pg (28.0-34.0); Mean Corpuscular Volume 90.8 fL (81-99); Monocytes # 0.9 10^3/uL (0.2-0.9); Monocytes % 12.5 %; Neutrophils # 5.41 10^3/uL (1.8-7.7); Neutrophils % 76.7 %; Nucleated Red Blood Cells % 0 %; Platelet Count 122 10^3/cmm (130-400); Red Blood Count 4.66 10^6/uL (4.1-5.3); Red Cell Distribution Width 12.5 % (12.1-15.1)
[2020-10-17] MEDS: ketorolac 30 mg/mL INJ IVP (15:08)
[2020-10-17 15:10] LABS: INR 1.02 (0.8-1.2)
[2020-10-17 15:13] LABS: SARS Covid-2 Antigen Negative (Negative)
[2020-10-17 15:13] LABS: D Dimer 1.73 ug/mIFEU (0-0.59)
[2020-10-17 15:14] LABS: Ammonia 75 umol/L (11-51); Lactic Sepsis W/Reflex 1.9 mmol/L (0.5-2.2)
[2020-10-17 15:22] LABS: Alanine Aminotransferase 19 U/L (0-33); Albumin Level 3.6 g/dL (3.5-5.2); Alkaline Phosphatase 95 IU/L (35-105); Anion Gap 14.7 (5-19); Aspartate Amino Transferase 33 U/L (0-32); Blood Urea Nitrogen 15 mg/dL (6-20); C Reactive Protein 7.8 mg/L (0.0-4.9); Calcium 8.3 mg/dL (8.5-10.5); Carbon Dioxide 24 mmol/L (22-29); Chloride 93 mmol/L (98-107); Creatine Phosphokinase 148 U/L (26-192); Globulin 4.5 g/dL (1.3-4.6); Glomerular Filtration Rate 77.2 mL/min (90-130); Glucose 102 mg/dL (65-115); Lactate Dehydrogenase 352 U/L (135-214); Osmolality Calculated 267 mOsm/kg (285-295); Potassium 3.7 mmol/L (3.5-5.1); Sodium 128 mmol/L (136-145); Total Bilirubin 0.6 mg/dL (0.15-1.2); Total Protein 8.1 g/dL (6.6-8.7)
--- NOTE | 2020-10-17 15:27 | CTR_ITS ---
PROCEDURE INFORMATION: Exam: CTA Chest With Contrast Exam date and time: 10/17/2020 3:27 PM Age: 45 years old Clinical indication: Abnormal findings; Abnormal diagnostic tests; Elevated d-dimer; Patient HX: Covid symptoms w elev d-dimer TECHNIQUE: Imaging protocol: Computed tomographic angiography of the chest with contrast. 3D rendering (Not supervised by radiologist): MIP and/or 3D reconstructed images were created by the technologist. Radiation optimization: All CT scans at this facility use at least one of these dose optimization techniques: automated exposure control; mA and/or kV adjustment per patient size (includes targeted exams where dose is matched to clinical indication); or iterative reconstruction. Contrast material: OMNI 350; Contrast volume: 128 ml; Contrast route: INTRAVENOUS (IV); COMPARISON: CTA Chest-Pulmonary Emb [id number] 11/04/2018 4:52 PM RADIATION DOSE METRICS: Total DLP (mGy-cm): 1237.75 FINDINGS: Pulmonary arteries: The pulmonary arteries are optimally filled with intravenous contrast. There are multiple filling defects within the pulmonary arteries of both lungs. These findings are consistent with a positive diagnosis of proximal pulmonary embolism. Most of these findings were not seen on prior examination. Aorta: Unremarkable. No aortic aneurysm. No aortic dissection. Lungs: Left lower lobe pulmonary fibrosis and the pluses. No consolidation. No masses. A right lower lobe granuloma Pleural spaces: Unremarkable. No pneumothorax. No pleural effusion. Heart: Unremarkable. No cardiomegaly. No pericardial effusion. Lymph nodes: Unremarkable. No enlarged lymph nodes. Bones/joints: Unremarkable. No acute fracture. Soft tissues: Unremarkable. CT/CT angio chest PE protcl [id number] IMPRESSION: 1. Positive examination for proximal pulmonary embolism in both lungs 2. Granuloma right lower lobe 3. Otherwise negative examination Radiation Dose CTDIVOL = (mGy): DLP = 1237.75 (mGy-cm)
[2020-10-17 15:28] LABS: Procalcitonin 1.92 ng/mL (0-0.5)
[2020-10-17] MEDS: iohexol 350 mg/mL 100 mL Btl IV (15:55)
--- NOTE | 2020-10-17 16:24 | CTR_ITS ---
PROCEDURE INFORMATION: Exam: CT Abdomen And Pelvis With Contrast Exam date and time: 10/17/2020 4:24 PM Age: 45 years old Clinical indication: Abdominal pain; Generalized; Prior surgery; Surgery type: Tubal ligation. Hystrectomy. ; Patient HX: Abd pain with fever. History of cirrhosis and pancreatitis. TECHNIQUE: Imaging protocol: Computed tomography of the abdomen and pelvis with contrast. Radiation optimization: All CT scans at this facility use at least one of these dose optimization techniques: automated exposure control; mA and/or kV adjustment per patient size (includes targeted exams where dose is matched to clinical indication); or iterative reconstruction. Contrast material: OMNI 300; Contrast volume: 95 ml; Contrast route: INTRAVENOUS (IV); COMPARISON: CT abdomen pelvis w con* [id number] 11/20/2019 6:29 AM RADIATION DOSE METRICS: Total DLP (mGy-cm): 1910.6 FINDINGS: Liver: Small hepatic cyst in the left hepatic lobe measuring 10 mm and in the right lobe measuring 6 mm No mass. Gallbladder and bile ducts: Normal. No calcified stones. No ductal dilation. Pancreas: Normal. No ductal dilation. Spleen: Normal. No splenomegaly. Adrenal glands: Normal. No mass. Kidneys and ureters: Right renal cyst 19 mm otherwise unremarkable No hydronephrosis. The outflow tracts are unremarkable. Stomach and bowel: Unremarkable. No obstruction. No mucosal thickening. Appendix: No evidence of appendicitis. Intraperitoneal space: Unremarkable. No free air. No significant fluid collection. Vasculature: Unremarkable. No abdominal aortic aneurysm. Lymph nodes: Unremarkable. No enlarged lymph nodes. Urinary bladder: Unremarkable as visualized. Reproductive: Unremarkable as visualized. Bones/joints: Unremarkable. No acute fracture. Soft tissues: Unremarkable. CT/CT abdomen pelvis w con* [id number] IMPRESSION: 1. Small benign hepatic cyst 2. Right renal cyst 3. Otherwise negative examination Radiation Dose CTDIVOL = (mGy): DLP = 1910.6 (mGy-cm)
[2020-10-17] MEDS: enoxaparin 120 mg/0.8 mL Syringe SUBCUT (16:42)
[2020-10-17] MEDS: piperacillin-tazobactam 3.375 GM in sodium chloride 0.9% (plus) 50 ML IV (16:42)
[2020-10-17] MEDS: HYDROcodone-acetaminophen 5-325 mg Tablet 1 TAB PO (16:42)
--- NOTE | 2020-10-17 16:45 | USCV_ITS ---
Maribell Foreman Age: 45 Gender: F : 1975 Exam Date: 10/17/2020 17:51 Ordering Phys: Lane Gaffney DO Technologist: Exam [place] [facility] [place]: PE HISTORY: Lower extremity swelling. PROCEDURES: The venous duplex Doppler examination of both lower extremities was performed in the standard fashion. The following venous structures were evaluated: common femoral vein, profunda vein, proximal portion of the greater saphenous vein, superficial femoral vein, and the popliteal vein. In addition, the posterior tibial and peroneal trunk were evaluated. Bilaterally, the common femoral, superficial femoral, profunda femoral, popliteal, posterior tibial, greater saphenous veins, and the peroneal trunk were identified and interrogated in the standard fashion. These veins were found to be easily compressible with spontaneous blood flow. No evidence of insufficiency or thrombus noted. FINDINGS: Normal 2-D Doppler and augmentation and compressibility throughout the lower extremity venous structures. Additional imaging through the proximal calf veins also reveals no thrombus. Limited evaluation of the greater saphenous vein is patent with no thrombus.. CONCLUSIONS No evidence of right lower extremity DVT. No evidence of left lower extremity DVT. Yannick Menon MD (Electronically Signed) Final Date: 18 October 2020 17:22 S
[2020-10-17 16:49] LABS: Add Urine Microscopic? YES; Bilirubin Urine Neg (Negative); Blood Urine Neg (Negative); Glucose Urine UA Norm (Normal); Ketones Urine Negative (Negative); Leukocyte Esterase Urine Negative (Negative); Nitrate Urine Negative (Negative); Protein Urine Neg (Negative); Urine Appearance Hazy (CLEAR); Urine Color Yellow (Yellow); Urobilinogen Urine 1 mg/dL (Negative); pH Urine 5 (5-7)
[2020-10-17] MEDS: iohexol 300 mg/mL 100 mL Btl IV (16:54)
[2020-10-17 17:04] LABS: Influenza A by IFA Negative (Negative)
[2020-10-17 17:05] LABS: Influenza B by IFA Negative (Negative)
[2020-10-17 17:06] LABS: Add Urine Culture? No; Bacteria Urine TRACE /hpf; Mucus Urine TRACE /hpf
[2020-10-17] MEDS: levofloxacin-dextrose 5 % 750 MG/150 ML PREMIX 100 MG IV (17:48)
[2020-10-17] MEDS: morphine 4 mg/mL SDV 1 mL IVP ×2 (18:00→20:28)
--- NOTE | 2020-10-17 18:10 | P.HP_ITS ---
Providers/Chief Complaint Admitting Physician: Neftali Barrera MD Primary Care Provider: Francisco Mckinley DO Chief Complaint: ALL OVER BODY ACHES History of Present Illness Maribell Foreman is a 45 year old female with a past medical history of hepatitis b with associated liver cirrhosis, no history of esophageal varices, with portal hypertension with splenorenal varices, with history of hepatic encephalopathy, history of seizure disorder, history of cervical cancer, insulin-dependent type 2 diabetes mellitus, history of perforated duodenal ulcer who presents to [facility] due to fatigue, malaise, nausea, vomiting, right upper and left upper quadrant abdominal pain,. Patient tells me that for the last few days she is felt fatigue, malaise, has not been able to keep down liquids, nausea, no hematemesis, intermittent fevers, no chills, she also has significant right upper and left upper quadrant abdominal pain. She tells me that they will not operate on her gallbladder but she does have gallbladder disease as per her. She she denies any bloody or black stools, no hematemesis, she has liver cirrhosis, she is did experience bilateral extremity edema 2 weeks ago, her Lasix was increased to 80 mg, currently her swelling has significantly improved. Denies any IV drug use, no alcohol use, is a smoker. She is adamant that she is compliant with all her medical therapies. She has not received the Covid vaccine, does complain of intermittent fevers, cough, shortness of breath on exertion, no chest pain, no palpitations. Review of Systems Const: Reports: fever(s), body aches, fatigue and malaise; Denies: chills Eyes: Denies: change in vision or blurry vision ENMT: Denies: nasal congestion Card: Denies: chest pain or palpitations Resp: Reports: dyspnea and non-productive cough; Denies: productive cough or wheezing GI: Reports: abdominal pain, nausea and vomiting; Denies: hematemesis, diarrhea, constipation, hematochezia or melena : Denies: flank pain, dysuria or urinary frequency Musc: Denies: neck pain or back pain Skin/Breast: Denies: rash Neuro: Denies: headache(s), dizziness or vertigo Psych: Reports: anxiety; Denies: depression Endo: Denies: polyuria or polydipsia Medications/Allergies Home Medications Medication Instructions Recorded Confirmed Last Taken Type furosemide 40 mg PO BID 05/05/19 10/17/20 10/17/20 04:00 History gabapentin 100 mg PO BID 05/05/19 10/17/20 10/17/20 04:00 History lamotrigine 200 mg PO DAILY 05/05/19 10/17/20 Unknown History naloxone [Narcan] See Rx Instructions .ROUTE .COMPLEX 05/05/19 10/17/20 Unknown History rifaximin 550 mg tablet 550 mg PO BID 06/06/19 10/17/20 10/17/20 04:00 History tenofovir disoproxil fumarate 300 300 mg PO DAILY #30 tab 10/07/19 10/17/20 10/17/20 Rx mg tablet levothyroxine 50 mcg tablet 50 mcg PO QAM #30 tab 12/23/19 10/17/20 10/17/20 Rx amitriptyline 25 mg PO BEDTIME 10/17/20 10/17/20 10/16/20 History ibuprofen 800 mg PO PRN 10/17/20 10/17/20 10/17/20 10:00 History insulin glargine [Lantus U-100 30 unit SUBCUT BEDTIME 10/17/20 10/17/20 10/16/20 History Insulin] lactulose 90 ml PO TID 10/17/20 10/17/20 10/17/20 04:00 History levetiracetam 750 mg PO BID 10/17/20 10/17/20 10/17/20 History levofloxacin 750 mg PO DAILY 10/17/20 10/17/20 10/17/20 History pantoprazole 40 - 80 mg PO DAILY PRN 10/17/20 10/17/20 Unknown History potassium chloride 20 meq PO DAILY 10/17/20 10/17/20 10/17/20 History promethazine 25 mg PO TID PRN 10/17/20 10/17/20 Unknown History spironolactone 25 mg PO QAM 10/17/20 10/17/20 10/17/20 History sumatriptan succinate [Imitrex] 50 mg PO Q2H PRN MDD 2 tabs 10/17/20 10/17/20 Unknown History tizanidine 4 mg PO Q6H PRN 10/17/20 10/17/20 Unknown History Allergies Allergy/AdvReac Type Severity Reaction Status Date / Time codeine Allergy Unknown Unknown Verified 10/17/20 14:22 aspirin Allergy ALGY-Hives Verified 10/17/20 14:22 Sulfa (Sulfonamide Allergy ALGY-Swell Verified 10/17/20 14:22 Antibiotics) Lip/Tongue/Throat PFSH Acute PFSH: Medical History (Updated 10/17/20 @ 18:22 by Neftali Barrera MD) Chronic abdominal pain Chronic hepatitis B Chronic hip pain Cirrhosis Diabetes mellitus Encephalopathy Gastroesophageal reflux GI bleeding Hypertension Leg cramps Pelvic inflammatory disease Stomach cancer Surgical History H/O tubal ligation History of hysterectomy History of laparotomy Family History (Updated 10/17/20 @ 18:18 by Neftali Barrera MD) Mother Diabetes Father CAD (coronary artery disease) Other Cancer Social History Smoking and tobacco status: current every day smoker cigarettes Packs smoked per day: 0.25 Alcohol intake: never Vitals/I&O/Wt Last Vital Signs Temp 101.2 F H 10/17/20 15:00 Pulse 104 H 10/17/20 16:00 Resp 20 H 10/17/20 16:00 BP 165/90 10/17/20 16:00 Pulse Ox 96 10/17/20 16:00 Weight last 48 hrs Weight 121.109 kg Physical Exam Const: COMMON NORMALS: no acute distress and patient oriented x3 GENERAL APPEARANCE: cooperative and comfortable Eye: COMMON NORMALS: Equal, round and reactive pupils present GENERAL EYE: appearance normal, both eyes and all related structures PUPIL: Yes Equal, round and reactive pupils present Neck/C-Spine: COMMON NORMALS: full ROM and no lymphadenopathy THYROID: Thyroid normal Lymph: LYMPHATIC: no lymphadenopathy noted Resp: COMMON NORMALS: normal respiratory effort and clear to auscultation bilaterally AUSCULTATION: clear to auscultation bilaterally Cardio: COMMON NORMALS: regular rate, regular rhythm, S1 normal heart sound present, S2 normal heart sound present, No gallops present (Cardio), No clicks p resent (Cardio) and No murmurs present (Cardio) RATE: regular rate RHYTHM: regular rhythm HEART SOUNDS: S1 normal heart sound present and S2 normal heart sound present GI: COMMON NORMALS: Normal to inspection, nondistended, normoactive bowel sounds present, Soft to palpation, non-tender and No hepatosplenomegaly present PALPATION: Yes Tenderness to palpation present (GI) Details: LUQ and RUQ and Yes No hepatosplenomegaly present Extremity: COMMON NORMALS: no pedal edema Neuro: COMMON NORMALS: patient oriented x3 and CN's II-XII intact bilaterally Psych: COMMON NORMALS: mental status grossly normal, Normal thought process present and cooperative THOUGHT PROCESS: Normal thought process present Data : 10/17/20 14:40 10/17/20 14:40 Micro: Microbiology 10/17/20 15:05 Blood Culture - Preliminary Blood SPECIMEN COLLECTED 10/17/20 14:40 Blood Culture - Preliminary Blood SPECIMEN COLLECTED A&P Assessment and plan (1) Bilateral pulmonary embolism: -CT of the chest shows multiple filling defects within the pulmonary arteries of both lungs -Currently not on oxygen, no complaints of chest pain, but does have complaints of right upper and left upper quadrant abdominal pain -Troponin and BNP is pending -Require telemetry monitoring -Cardiac echo -Oxygen therapy as needed -Received therapeutic Lovenox in the ER -Given history of liver cirrhosis, no history of esophageal varices, but some vague history of GI bleed, will start on heparin drip, monitor hemoglobins every 6 hours, Hemoccult stool, monitor hemodynamics closely -We will do venous ultrasound -Etiology unclear, no recent travel, recent surgeries, does have symptoms related to Covid, no current history of IV drug use -Full code -Lovenox for DVT prophylaxis Status: Acute (2) Hyponatremia: -Likely secondary to dehydration, hypovolemic hyponatremia -Start gentle IV hydration -Hold Lasix, spironolactone Status: Acute (3) Fever: -Fever along with left upper and right upper quadrant abdominal pain -CT scan of the abdomen pelvis did not show any source of infection -No ascites, but will do abdominal ultrasound to evaluate for possible SBP -Lipase and GGT pending -No significant transaminitis, LDH 352, alk phos 95 -We will do an abdominal ultrasound, evaluate gallbladder -CT scan of the chest does show bilateral pulmonary emboli, no focal pneumonia, no radiographic evidence of Covid -However does have fevers, cough, chills, pro-Parmjit 1.92 -Does have diarrhea complaints, is on lactulose, but has been on Levaquin, will do stool studies -Covid PCR pending, continue Covid isolation -Follow blood cultures, urine cultures, sputum cultures, Covid PCR -Continue broad-spectrum antibiotic therapy vancomycin, Zosyn Status: Acute (4) Chronic hepatitis B: -Hold tenofovir Status: Acute (5) Cirrhosis: Status: Chronic (6) Abdominal pain: -Awaiting GGT, lipase, abdominal ultrasound Status: Acute (7) Thrombocytopenia: -Secondary to liver cirrhosis Status: Acute Additional A&P Information Insulin-dependent type 2 diabetes mellitus, continue Lantus 30 units at bedtime, insulin sliding scale Hypothyroidism, continue levothyroxine Attestations Medical Necessity Statement*: Patient requires hospitalization for fever, bilateral pulmonary emboli, abdominal pain, hyponatremia, inpatient, greater than 2 midnights Coding Level of Care Code Acute Mission Manager for Chg Fwd Diagnoses Bilateral pulmonary embolism I26.99 Hyponatremia E87.1 Fever R50.9 Chronic hepatitis B B18.1 Cirrhosis K74.60 Abdominal pain R10.9 Thrombocytopenia D69.6
[2020-10-17 18:39] LABS: Lipase 26 U/L (13-60); Troponin(5th) Baseline 13 ng/L (0-10)
[2020-10-17 19:10] LABS: Lactic Sepsis W/Reflex 1.2 mmol/L (0.5-2.2)
--- NOTE | 2020-10-17 20:02 | ECG_ITS ---
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1975 Requested By: Neftali Barrera Order Number: [id number] Reading MD: GAYE MOREJON Measurements Intervals [place] Rate: 111 P: 77 AK: 145 QRS: 57 QRSD: 97 T: 65 QT: 316 QTc: 431 Interpretive Statements SINUS TACHYCARDIA POSSIBLE RIGHT ATRIAL ENLARGEMENT [0.25mV P WAVE] MODERATE ST DEPRESSION [0.05+ mV ST DEPRESSION] INTERPRETATION BASED ON A DEFAULT AGE OF 40 YEARS Compared to ECG 10/17/2020 14:35:20 ST (T wave) deviation now present Electronically Signed On 10-18-2020 23:37:30 CDT by GAYE MOREJON [email or web address]
[2020-10-17] MEDS: gabapentin 100 mg Capsule PO (20:27)
[2020-10-17] MEDS: ascorbic acid 500 mg Tablet 1000 MG PO (20:27)
[2020-10-17] MEDS: amitriptyline 25 mg Tablet PO (20:28)
[2020-10-17] MEDS: sodium chloride 0.9% 1,000 ML 75 ML IV (20:49)
[2020-10-17] MEDS: lactulose oral liq 20 gm/30 mL UDC 60 GM PO (20:50)
[2020-10-17] MEDS: insulin glargine 100 units/1 mL 30 UNIT SUBCUT (20:56)
[2020-10-17 21:51] LABS: Glucose Point of Care 115 mg/dL (70-110)
[2020-10-17] MEDS: tizanidine 4 mg Tablet PO (22:24)
[2020-10-17 22:39] LABS: Troponin 5 2HR 17.14 ng/L (0-10)
[2020-10-17] MEDS: morphine 4 mg/mL SDV 1 mL 2 MG IVP (23:00)
[2020-10-17 23:45] LABS: Gamma Glutamyl Transferase 25 U/L (5-36)
[2020-10-18] VITALS (18 sets, daily range): BP systolic 111–143; BP diastolic 66–103; PULSE 80–116; RESP 18–24; TEMP 36.4–36.8; O2SAT 91–98
[2020-10-18] MEDS: piperacillin-tazobactam 3.375 GM in sodium chloride 0.9% (plus) 100 ML IV ×3 (00:16→17:29)
[2020-10-18 00:46] LABS: Basophils % 0.6 %; Eosinophils # 0.1 10^3/uL (0.0-0.8); Eosinophils % 1.3 %; Hematocrit 43.2 % (37.0-47.0); Hemoglobin 14.5 g/dL (11.5-15.3); Lymphocytes % 18.5 %; Mean Corpuscular HGB Conc 33.6 g/dL (30.0-36.0); Mean Corpuscular Hemoglobin 31.2 pg (28.0-34.0); Mean Corpuscular Volume 92.9 fL (81-99); Mean Platelet Volume 10.8 fL (7.4-10.4); Monocytes # 0.9 10^3/uL (0.2-0.9); Monocytes % 16.5 %; Neutrophils # 3.34 10^3/uL (1.8-7.7); Neutrophils % 62.5 %; Nucleated Red Blood Cells % 0 %; Platelet Count 123 10^3/cmm (130-400); Red Blood Count 4.65 10^6/uL (4.1-5.3); Red Cell Distribution Width 12.6 % (12.1-15.1); White Blood Count 5.3 10^3/uL (4.0-10.0)
[2020-10-18 00:58] LABS: Troponin 5 6HR 15.28 ng/L (0-10)
[2020-10-18] MEDS: oxyCODONE-APAP 5-325 mg Tablet 1 TAB PO ×3 (01:41→14:11)
[2020-10-18] MEDS: morphine 4 mg/mL SDV 1 mL 2 MG IVP (03:18)
[2020-10-18] MEDS: heparin 5,000 unit/mL INJ 1 mL IV ×2 (04:47→18:04)
[2020-10-18] MEDS: heparin drip 25,000 UNIT/500 ML PREMIX 35 UNIT IV (04:49)
[2020-10-18] MEDS: levothyroxine 50 mcg Tablet PO (05:37)
[2020-10-18 05:49] LABS: Basophils % 0.8 %; Eosinophils # 0.1 10^3/uL (0.0-0.8); Eosinophils % 2.7 %; Hematocrit 40.8 % (37.0-47.0); Lymphocytes # 1.1 10^3/uL (0.8-4.8); Lymphocytes % 21.4 %; Mean Corpuscular HGB Conc 34.3 g/dL (30.0-36.0); Mean Corpuscular Hemoglobin 31.3 pg (28.0-34.0); Mean Corpuscular Volume 91.3 fL (81-99); Mean Platelet Volume 10.9 fL (7.4-10.4); Monocytes # 0.9 10^3/uL (0.2-0.9); Monocytes % 16.9 %; Neutrophils # 3.05 10^3/uL (1.8-7.7); Neutrophils % 57.6 %; Nucleated Red Blood Cells % 0 %; Platelet Count 118 10^3/cmm (130-400); Red Blood Count 4.47 10^6/uL (4.1-5.3); Red Cell Distribution Width 12.7 % (12.1-15.1); White Blood Count 5.3 10^3/uL (4.0-10.0)
[2020-10-18 05:57] LABS: INR 1.24 (0.8-1.2)
[2020-10-18 06:08] LABS: Alanine Aminotransferase 16 U/L (0-33); Albumin Level 3.2 g/dL (3.5-5.2); Alkaline Phosphatase 92 IU/L (35-105); Ammonia 65 umol/L (11-51); Anion Gap 14.1 (5-19); Aspartate Amino Transferase 30 U/L (0-32); Blood Urea Nitrogen 14 mg/dL (6-20); Calcium 7.9 mg/dL (8.5-10.5); Carbon Dioxide 23 mmol/L (22-29); Chloride 100 mmol/L (98-107); Globulin 3.7 g/dL (1.3-4.6); Glomerular Filtration Rate 77.2 mL/min (90-130); Glucose 110 mg/dL (65-115); Osmolality Calculated 279 mOsm/kg (285-295); Potassium 3.1 mmol/L (3.5-5.1); Sodium 134 mmol/L (136-145); Total Bilirubin 0.7 mg/dL (0.15-1.2); Total Protein 6.9 g/dL (6.6-8.7)
[2020-10-18 06:11] LABS: Estmated Average Glucose 108; Hemoglobin A1C 5.4 % (4.0-6.0)
[2020-10-18 06:18] LABS: NT Pro B Type Natriuretic Pept 23 pg/mL (0-125); Procalcitonin 1.36 ng/mL (0-0.5)
[2020-10-18 06:19] LABS: C Reactive Protein 14.2 mg/L (0.0-4.9); Magnesium 1.7 mg/dL (1.7-2.3); Phosphorus 3.8 mg/dL (2.5-4.5); Thyroid Stimulating Hormone 1.49 uIU/mL (0.27-4.20)
[2020-10-18 06:29] LABS: Ferritin 148 ng/mL (15-150)
[2020-10-18 06:53] LABS: Glucose Point of Care 158 mg/dL (70-110)
[2020-10-18 08:36] LABS: Basophils % 0.7 %; Eosinophils # 0.2 10^3/uL (0.0-0.8); Eosinophils % 3.1 %; Hematocrit 41.3 % (37.0-47.0); Lymphocytes # 1.2 10^3/uL (0.8-4.8); Lymphocytes % 22.4 %; Mean Corpuscular HGB Conc 33.9 g/dL (30.0-36.0); Mean Corpuscular Hemoglobin 31.5 pg (28.0-34.0); Mean Platelet Volume 12.6 fL (7.4-10.4); Monocytes # 1.2 10^3/uL (0.2-0.9); Monocytes % 22.4 %; Neutrophils # 2.75 10^3/uL (1.8-7.7); Neutrophils % 50.7 %; Nucleated Red Blood Cells % 0 %; Platelet Count 136 10^3/cmm (130-400); Red Blood Count 4.44 10^6/uL (4.1-5.3); Red Cell Distribution Width 12.9 % (12.1-15.1); White Blood Count 5.4 10^3/uL (4.0-10.0)
[2020-10-18] MEDS: ascorbic acid 500 mg Tablet 1000 MG PO ×2 (08:48→17:28)
[2020-10-18] MEDS: potassium chloride ER 20 mEq Tablet 40 MEQ PO (08:48)
[2020-10-18] MEDS: levETIRAcetam 500 mg Tablet 750 MG PO ×2 (08:48→17:29)
[2020-10-18] MEDS: cholecalciferol (vitamin D3) 1,000 unit Tablet 1000 UNIT PO (08:48)
[2020-10-18] MEDS: gabapentin 100 mg Capsule PO ×2 (08:50→17:29)
[2020-10-18] MEDS: zinc gluconate 50 mg Tablet PO (08:50)
[2020-10-18] MEDS: lamoTRIgine 100 mg Tablet 200 MG PO (08:50)
[2020-10-18] MEDS: lactulose oral liq 20 gm/30 mL UDC 60 GM PO ×3 (08:51→20:19)
[2020-10-18] MEDS: potassium chloride ER 20 mEq Tablet PO (09:10)
[2020-10-18] MEDS: TRAMadol 50 mg Tablet PO ×2 (09:35→15:26)
[2020-10-18 11:22] LABS: Glucose Point of Care 116 mg/dL (70-110)
--- NOTE | 2020-10-18 11:30 | P.PN_ITS ---
Subjective Subjective: Interval history: This morning patient was examined, she tells me that she is a bit short of breath this morning, still having some pain in the right and left upper quadrant, she tells me that the morphine has not been helping so she was given oxycodone which helps to some degree, she has had fevers overnight, she is on 2 L, no chest pain, she would like to try something more substantial, as she has more of an appetite, Vitals/I&O/Wt Last Vital Signs Temp 98.2 F 10/18/20 04:00 Pulse 87 10/18/20 06:00 Resp 18 10/18/20 08:58 BP 111/66 10/18/20 04:00 Pulse Ox 91 10/18/20 04:00 10/17/20 10/18/20 10/18/20 22:59 06:59 14:59 Intake Total 560 / 560 700 / 1260 933.75 / 933.75 Balance 560 / 560 700 / 1260 933.75 / 933.75 Weight last 48 hrs Weight 121.109 kg Physical Exam Const: COMMON NORMALS: no acute distress and patient oriented x3 Resp: COMMON NORMALS: normal respiratory effort, No retractions, No use of accessory muscles and clear to auscultation bilaterally AUSCULTATION: clear to auscultation bilaterally Cardio: COMMON NORMALS: regular rate, regular rhythm, S1 normal heart sound present and S2 normal heart sound present RATE: regular rate RHYTHM: regular rhythm HEART SOUNDS: S1 normal heart sound present and S2 normal heart sound present GI: COMMON NORMALS: Normal to inspection, nondistended, normoactive bowel sounds present and Soft to palpation PALPATION: Yes Soft to palpation OTHER: Generalized abdominal tenderness Extremity: COMMON NORMALS: no pedal edema Neuro: COMMON NORMALS: patient oriented x3 Psych: COMMON NORMALS: mental status grossly normal Data : 10/18/20 08:28 10/18/20 05:35 Micro: Microbiology 10/17/20 15:05 Blood Culture - Preliminary Blood SPECIMEN COLLECTED 10/17/20 14:40 Blood Culture - Preliminary Blood SPECIMEN COLLECTED A&P Assessment and plan (1) Bilateral pulmonary embolism: -Complaining of shortness of breath this morning, hypoxic requiring 2 L, no evidence of respiratory distress -CT of the chest shows multiple filling defects within the pulmonary arteries of both lungs -Currently not on oxygen, no complaints of chest pain, but does have complaints of right upper and left upper quadrant abdominal pain -Troponin 6-hour 15.28 and BNP 23 -Require telemetry monitoring -Cardiac echo pending -Oxygen therapy, cardiac -Received therapeutic Lovenox in the ER -Given history of liver cirrhosis, no history of esophageal varices, does have a history of GI bleed associated with perforated duodenal ulcer, will start on heparin drip, monitor hemoglobins every 6 hours, Hemoccult stool, monitor hemodynamics closely, last hemoglobin 14 -We will do venous ultrasound -Etiology unclear, no recent travel, recent surgeries, does have symptoms related to Covid, no current history of IV drug use -Full code -Lovenox for DVT prophylaxis Plan for today switch to oxycodone, tramadol for breakthrough strain, and advance diet to diabetic diet, await Covid testing, await cardiac echo monitor for fevers, monitor respiratory status, monitor hemoglobin, continue heparin drip Status: Acute (2) Hyponatremia: -Likely secondary to dehydration, hypovolemic hyponatremia -Improving to 134 -Start gentle IV hydration -Hold Lasix, spironolactone Status: Acute (3) Fever: -Fever along with left upper and right upper quadrant abdominal pain -CT scan of the abdomen pelvis did not show any source of infection -No ascites, but will do abdominal ultrasound to evaluate for possible SBP -Lipase and GGT pending -No significant transaminitis, LDH 352, alk phos 95 -We will do an abdominal ultrasound, evaluate gallbladder -CT scan of the chest does show bilateral pulmonary emboli, no focal pneumonia, no radiographic evidence of Covid -However does have fevers, cough, chills, pro-Parmjit 1.92 -Does have diarrhea complaints, is on lactulose, but has been on Levaquin, will do stool studies -Covid PCR pending, continue Covid isolation -Follow blood cultures, urine cultures, sputum cultures, Covid PCR -Continue broad-spectrum antibiotic therapy vancomycin, Zosyn Status: Acute (4) Chronic hepatitis B: -Hold tenofovir Status: Acute (5) Cirrhosis: Status: Chronic (6) Abdominal pain: -Awaiting GGT, lipase, abdominal ultrasound Status: Acute (7) Thrombocytopenia: -Secondary to liver cirrhosis Status: Acute (8) Hypoxia: Status: Acute Additional A&P Information Insulin-dependent type 2 diabetes mellitus, continue Lantus 30 units at bedtime, insulin sliding scale Hypothyroidism, continue levothyroxine Attestations Medical Necessity Statement*: Patient requires hospitalization, inpatient, greater than 2 midnights, for bilateral pulmonary emboli, hypoxia, hyponatremia, recurrent fevers, possible Covid infection Coding Level of Care Code Acute Property Staff Accountant for Chg Fwd Diagnoses Bilateral pulmonary embolism I26.99 Hyponatremia E87.1 Fever R50.9 Chronic hepatitis B B18.1 Cirrhosis K74.60 Abdominal pain R10.9 Thrombocytopenia D69.6 Hypoxia R09.02
[2020-10-18 12:29] LABS: Partial Thromboplastin Time 196.7 SECONDS (23.9-36.7)
--- NOTE | 2020-10-18 12:44 | PC.NURSE ---
Heparin gtt Dr. Barrera notified via telephone of critical PTT result. Telephone order to hold Heparin gtt for 4 hours then recheck PTT. Resume per protocol at that time. RBTO.
--- NOTE | 2020-10-18 12:52 | PC.NURSE ---
Patient IV infiltrated to right upper arm. Dr. Barrera notified that this is the second ultrasound guided IV placed on patient this shift. Physician to put in order for midline IV.
[2020-10-18 13:36] LABS: Basophils # 0.1 10^3/uL (0.0-0.1); Eosinophils # 0.2 10^3/uL (0.0-0.8); Eosinophils % 3.3 %; Hemoglobin 14.1 g/dL (11.5-15.3); Lymphocytes # 1.2 10^3/uL (0.8-4.8); Lymphocytes % 23.1 %; Mean Corpuscular HGB Conc 33.6 g/dL (30.0-36.0); Mean Corpuscular Hemoglobin 31.8 pg (28.0-34.0); Mean Corpuscular Volume 94.8 fL (81-99); Mean Platelet Volume 11.5 fL (7.4-10.4); Monocytes # 1.1 10^3/uL (0.2-0.9); Monocytes % 20.6 %; Neutrophils # 2.65 10^3/uL (1.8-7.7); Neutrophils % 51.4 %; Nucleated Red Blood Cells % 0 %; Platelet Count 125 10^3/cmm (130-400); Red Blood Count 4.43 10^6/uL (4.1-5.3); Red Cell Distribution Width 12.9 % (12.1-15.1); White Blood Count 5.2 10^3/uL (4.0-10.0)
[2020-10-18] MEDS: tizanidine 4 mg Tablet PO (14:11)
--- NOTE | 2020-10-18 15:41 | PC.NURSE ---
Dr. Barrera notified that patient pain is not controlled on oral pain medications. Physician gave telephone order to discontinue percocet and tramadol. Order Dilaudid 0.5 mg q4h prn for pain. RBTO.
--- NOTE | 2020-10-18 15:44 | PC.NURSE ---
Patient reports itching to scalp. Reports sleeping on a family member's couch and the itching starting after that. Nurse examined scalp. No bugs identified. Nits seen on hair shaft. Physician notified. Physician to order lice treatment.
[2020-10-18] MEDS: HYDROmorphone 1 mg/mL INJ 1 mL 0.5 MG IVP ×2 (15:57→20:21)
[2020-10-18 16:30] LABS: Glucose Point of Care 141 mg/dL (70-110)
[2020-10-18 16:30] LABS: Glucose Point of Care 175 mg/dL (70-110)
[2020-10-18 17:24] LABS: Coronavirus Test Green County Not Detected
[2020-10-18 17:26] LABS: Partial Thromboplastin Time 34.8 SECONDS (23.9-36.7)
--- NOTE | 2020-10-18 19:14 | US_ITS ---
WS: [id number] ULTRASOUND ABDOMEN CLINICAL INFORMATION: ruq and luq pain COMPARISON: None. FINDINGS: Liver Size: Normal. Craniocaudal length: 15.9 cm. Echogenicity: Dense Surface nodularity: None. Mass (size and location): None. Bile ducts Intrahepatic ducts: Mild dilatation Common bile duct diameter: 1.4 cm. Gallbladder Normal. Gallstones: None. Gallbladder sludge: None. Gallbladder wall thickening: None. Pericholecystic fluid: None. Sonographic Fox sign: Absent. Pancreas Normal as visualized. Spleen Splenomegaly: Mild Craniocaudal length: 13.8 cm. Right kidney: Normal. Hydronephrosis: None. Size: 11.6 cm x 6.4 cm x 6.4 cm Left kidney: Normal. Hydronephrosis: None. Size: 12.1 cm x 6.7 cm x 6.1 cm. Abdominal aorta and IVC Visualized portions are normal. Ascites: None. US/US abdomen complete* [id number] IMPRESSION: 1. Mild hepatomegaly with diffuse fatty infiltration. 2. Dilated common bile duct with mild dilatation of intrahepatic ducts. Common bile duct could be further evaluated with MRCP. 3. No hydronephrosis in either kidney. 4. Gallbladder appears normal. Dilated common bile duct measuring 14 mm. No Ch olelithiasis. 5. Mild splenomegaly
--- NOTE | 2020-10-18 19:14 | USCV_ITS ---
Maribell Foreman Age: 45 Gender: F : 1975 Exam Date: 10/18/2020 06:33 Ordering Phys: Neftali Barrera MD Technologist: Exam Location: [facility] [place] Indication: PE BP: / HR: 87 Rhythm: Sinus Technical Quality: Adequate MEASUREMENTS (Male / Female) Normal Values 2D ECHO LV Diastolic Diameter PLAX 3.9 cm 4.2 - 5.9 / 3.9 - 5.3 cm LV Systolic Diameter PLAX 2.8 cm IVS Diastolic Thickness 1.6 cm 0.6 - 1.0 / 0.6 - 0.9 cm IVS Systolic Thickness 1.8 cm LVPW Diastolic Thickness 1.4 cm 0.6 - 1.0 / 0.6 - 0.9 cm LVPW Systolic Thickness 1.8 cm LVOT Diameter 2.1 cm LV Ejection Fraction 2D Teich 56.0 % LV Ejection Fraction MOD 2C 62.7 % LV Ejection Fraction 2C AL 62.3 % LA Diameter 3.7 cm LA Width 4.5 cm LA Height 5.5 cm RA Width 4.1 cm RA Height 5.3 cm DOPPLER AV Peak Velocity 151.0 cm/s LVOT Peak Velocity 122.0 cm/s AV Area Cont Eq vti 2.4 cm squared AV Area Cont Eq pk 2.7 cm squared MV Area PHT 2.1 cm squared Mitral E to A Ratio 0.7 MV E' Velocity 84.0 cm/s Mitral E to LV E' Septal Ratio 10.7 TR Peak Velocity 106.0 cm/s TR Peak Gradient 4.5 mmHg TV Peak E Velocity 99.0 cm/s Right Atrial Pressure 3.0 mmHg Pulmonary Artery Systolic Pressu 7.5 mmHg FINDINGS Left Ventricle Normal left ventricular cavity size. Normal left ventricular systolic function. Left ventricular ejection fraction is estimated at 60 %. Grade I/IV diastolic dysfunction (abnormal relaxation filling pattern), normal to mildly elevated filling pressures. Right Ventricle The right ventricle is normal in size and function. Right Atrium The right atrium is normal in size. Left Atrium The left atrium is normal in size. Mitral Valve Moderately thickened mitral valve. Moderate mitral annular calcification. No mitral valve stenosis. Mild mitral valve regurgitation. Aortic Valve Moderate aortic valve calcification. No aortic valve stenosis. No aortic valve regurgitation. There appeared to be thickening of the aortic valve cannot rule out vegetation clinical correlation advised. Please note that technical quality of the study is suboptimal Tricuspid Valve Structurally normal tricuspid valve without significant stenosis or regurgitation. Pulmonary artery systolic pressure is normal. Pulmonic Valve Structurally normal pulmonic valve without significant stenosis. There is no pulmonic regurgitation. Pericardium Normal pericardium without effusion. Aorta Normal ascending aorta dimension. CONCLUSIONS 1-Normal left ventricular cavity size. Normal left ventricular systolic function. Left ventricular ejection fraction is estimated at 60 %. Grade I/IV diastolic dysfunction (abnormal relaxation filling pattern), normal to mildly elevated filling pressures. 2-Moderately thickened mitral valve. Moderate mitral annular calcification. No mitral valve stenosis. Mild mitral valve regurgitation. 3-Moderate aortic valve calcification. No aortic valve stenosis. No aortic valve regurgitation. There appeared to be thickening of the aortic valve cannot rule out vegetation clinical correlation advised. Please note that technical quality of the study is suboptimal. 4-There is no pericardial effusion. 5-Pulmonary artery systolic pressure is within normal limits. 6-There are no prior echocardiogram studies to compare. Suki De La Torre MD (Electronically Signed) Final Date: 18 October 2020 23:31 S
[2020-10-18 20:14] LABS: Basophils # 0.1 10^3/uL (0.0-0.1); Eosinophils # 0.2 10^3/uL (0.0-0.8); Eosinophils % 4.8 %; Hemoglobin 13.3 g/dL (11.5-15.3); Lymphocytes # 1.5 10^3/uL (0.8-4.8); Lymphocytes % 30.4 %; Mean Corpuscular HGB Conc 33.3 g/dL (30.0-36.0); Mean Corpuscular Hemoglobin 31.7 pg (28.0-34.0); Mean Corpuscular Volume 95.5 fL (81-99); Mean Platelet Volume 10.9 fL (7.4-10.4); Monocytes # 1.2 10^3/uL (0.2-0.9); Monocytes % 23.6 %; Neutrophils % 39.6 %; Nucleated Red Blood Cells % 0 %; Platelet Count 110 10^3/cmm (130-400); Red Blood Count 4.19 10^6/uL (4.1-5.3)
[2020-10-18] MEDS: amitriptyline 25 mg Tablet PO (20:19)
[2020-10-18] MEDS: insulin glargine 100 units/1 mL 30 UNIT SUBCUT (20:20)
[2020-10-18] MEDS: permethrin lotion 59 mL Btl TOPICAL (20:34)
[2020-10-18 20:38] LABS: Vancomycin Trough 22.6 ug/mL (10-15)
[2020-10-18 21:26] LABS: Glucose Point of Care 118 mg/dL (70-110)
--- NOTE | 2020-10-18 21:46 | PC.PHAR ---
Vancomycin trough is 22.6. Hold Vancomycin for 24 hours and then resume at 1500mg IVPB every 12 hours with another trough to be obtained before the fourth dose at this reduced amount.
[2020-10-18 23:43] LABS: Partial Thromboplastin Time 49.6 SECONDS (23.9-36.7)
[2020-10-19] VITALS (22 sets, daily range): BP systolic 98–154; BP diastolic 55–89; PULSE 66–109; RESP 16–24; TEMP 36.3–37.1; O2SAT 90–97
[2020-10-19] MEDS: heparin 5,000 unit/mL INJ 1 mL IV ×3 (00:10→19:05)
[2020-10-19] MEDS: piperacillin-tazobactam 3.375 GM in sodium chloride 0.9% (plus) 100 ML IV ×3 (00:13→16:36)
[2020-10-19] MEDS: tizanidine 4 mg Tablet PO ×3 (00:36→21:03)
[2020-10-19] MEDS: HYDROmorphone 1 mg/mL INJ 1 mL 0.5 MG IVP ×6 (00:36→22:14)
[2020-10-19 06:11] LABS: Platelet Count 97 10^3/cmm (130-400)
[2020-10-19 06:19] LABS: Partial Thromboplastin Time 40.9 SECONDS (23.9-36.7)
[2020-10-19 06:24] LABS: INR 1.09 (0.8-1.2)
[2020-10-19 06:25] LABS: Ammonia 106 umol/L (11-51)
[2020-10-19 06:36] LABS: Alanine Aminotransferase 14 U/L (0-33); Albumin Level 2.6 g/dL (3.5-5.2); Alkaline Phosphatase 69 IU/L (35-105); Anion Gap 9.2 (5-19); Aspartate Amino Transferase 29 U/L (0-32); Blood Urea Nitrogen 11 mg/dL (6-20); C Reactive Protein 10.9 mg/L (0.0-4.9); Calcium 7.6 mg/dL (8.5-10.5); Carbon Dioxide 24 mmol/L (22-29); Chloride 109 mmol/L (98-107); Globulin 3.4 g/dL (1.3-4.6); Glomerular Filtration Rate 107.6 mL/min (90-130); Glucose 94 mg/dL (65-115); Osmolality Calculated 285 mOsm/kg (285-295); Phosphorus 2.8 mg/dL (2.5-4.5); Potassium 4.2 mmol/L (3.5-5.1); Sodium 138 mmol/L (136-145); Total Bilirubin 0.4 mg/dL (0.15-1.2)
[2020-10-19 06:45] LABS: NT Pro B Type Natriuretic Pept 26 pg/mL (0-125); Procalcitonin 0.85 ng/mL (0-0.5)
[2020-10-19 06:56] LABS: Ferritin 138 ng/mL (15-150)
[2020-10-19 07:06] LABS: Glucose Point of Care 107 mg/dL (70-110)
[2020-10-19] MEDS: potassium chloride ER 20 mEq Tablet PO (07:53)
[2020-10-19] MEDS: gabapentin 100 mg Capsule PO ×2 (07:54→17:54)
[2020-10-19] MEDS: lamoTRIgine 100 mg Tablet 200 MG PO (07:54)
[2020-10-19] MEDS: zinc gluconate 50 mg Tablet PO (07:54)
[2020-10-19] MEDS: levETIRAcetam 500 mg Tablet 750 MG PO ×2 (07:54→17:55)
[2020-10-19] MEDS: cholecalciferol (vitamin D3) 1,000 unit Tablet 1000 UNIT PO (07:54)
[2020-10-19] MEDS: lactulose oral liq 20 gm/30 mL UDC 60 GM PO ×3 (07:57→21:03)
[2020-10-19] MEDS: ascorbic acid 500 mg Tablet 1000 MG PO ×2 (07:57→17:54)
--- NOTE | 2020-10-19 08:13 | MR_ITS ---
WS: [id number] MRCP (MAGNETIC RESONANCE CHOLANGIOPANCREATOGRAPHY) HISTORY: abdominal pain, biliary dilatation COMPARISON: 06/07/2017 and 10/17/2020 TECHNIQUE: Multiple sequences are performed to evaluate the intra and extrahepatic ducts. Mild central bile duct dilatation and extrahepatic bile duct dilatation. Extrahepatic common bile valeria t measures up to 8.3 mm. No filling defect in the distal duct. No mass at the pancreatic head. Gallbl adder is normally distended. No filling defects within the gallbladder. There is no ascites. Surface of the liver is slightly irregular suggesting of processes which is bett er seen on the prior CT. 5 mm cyst in the LEFT lobe of the liver. Spleen is also mildly enlarged exte nding over length of 14 cm. 8 mm cyst in the posterior pole of the RIGHT upper kidney. MR/MR MRCP [id number] IMPRESSION: 1. Very mildly prominent common bile duct at 8.3 mm. No intraluminal filling d efect. Common bile duct appearance is similar to 06/07/2017 MRCP. 2. Negative gallbladder. 3. Cirrhosis.
[2020-10-19] MEDS: levothyroxine 50 mcg Tablet PO (08:31)
[2020-10-19] MEDS: albuterol 8 gm MDI 2 PUFF INHALATION ×3 (09:28→21:08)
--- NOTE | 2020-10-19 10:20 | PC.OT ---
OT NOTE: DISCUSSION WITH RN, PATIENT HAS SIGNIFICANT ABDOMINAL PAIN AND IS SCHEDULED FOR MRI TODAY. WILL AWAIT MRI AND RESULTS PRIOR TO EVALUATION.
[2020-10-19 10:56] LABS: Glucose Point of Care 124 mg/dL (70-110)
--- NOTE | 2020-10-19 11:08 | PM.PN ---
Subjective Subjective: Interval history: Patient examined this morning, she is on 2 L nasal cannula, afebrile overnight, but she continues to have right upper and left upper quadrant pain, but tells me that the right upper quadrant is exquisitely tender this morning, she tells me that also he feels like her lungs are burning, she is just not feeling well, no nausea, no vomiting, no diarrhea, no bloody or black stools, she is able to keep down her breakfast, no hematemesis Vitals/I&O/Wt Last Vital Signs Temp 98 F 10/19/20 04:00 Pulse 74 10/19/20 09:28 Resp 20 H 10/19/20 09:28 BP 98/55 10/19/20 04:00 Pulse Ox 92 10/19/20 09:28 10/18/20 10/19/20 10/19/20 22:59 06:59 14:59 Intake Total 1560 / 4324.417 370.317 / 4694.734 Balance 1560 / 4324.417 370.317 / 4694.734 Weight last 48 hrs Weight 121.109 kg Physical Exam Const: COMMON NORMALS: no acute distress and patient oriented x3 Resp: COMMON NORMALS: normal respiratory effort, No retractions, No use of accessory muscles and clear to auscultation bilaterally AUSCULTATION: clear to auscultation bilaterally Cardio: COMMON NORMALS: regular rate, regular rhythm, S1 normal heart sound present and S2 normal heart sound present RATE: regular rate RHYTHM: regular rhythm HEART SOUNDS: S1 normal heart sound present and S2 normal heart sound present GI: COMMON NORMALS: Normal to inspection, nondistended, normoactive bowel sounds present and Soft to palpation PALPATION: Yes Soft to palpation and Yes Tenderness to palpation present (GI) Details: LUQ and RUQ Extremity: COMMON NORMALS: no pedal edema Neuro: COMMON NORMALS: patient oriented x3 Psych: COMMON NORMALS: mental status grossly normal Data : 10/19/20 05:49 10/19/20 05:49 Micro: Microbiology 10/17/20 14:02 Urine Culture - Preliminary Urine,Voided 10/17/20 15:05 Blood Culture - Preliminary Blood NEGATIVE TO DATE 10/17/20 14:40 Blood Culture - Preliminary Blood NEGATIVE TO DATE 10/17/20 18:15 Bacterial Antigens - Final Urine,Clean Catch A&P Assessment and plan (1) Bilateral pulmonary embolism: -hypoxic requiring 2 L, no evidence of respiratory distress -CT of the chest shows multiple filling defects within the pulmonary arteries of both lungs -Currently on 2 L, no complaints of chest pain, but does have complaints of right upper and left upper quadrant abdominal pain -Troponin 6-hour 15.28 and BNP 23 -Require telemetry monitoring -Cardiac echo 1-Normal left ventricular cavity size. Normal left ventricular systolic function. Left ventricular ejection fraction is estimated at 60 %. Grade I/IV diastolic dysfunction (abnormal relaxation filling pattern), normal to mildly elevated filling pressures. 2-Moderately thickened mitral valve. Moderate mitral annular calcification. No mitral valve stenosis. Mild mitral valve regurgitation. 3-Moderate aortic valve calcification. No aortic valve stenosis. No aortic valve regurgitation. There appeared to be thickening of the aortic valve cannot rule out vegetation clinical correlation advised. Please note that technical quality of the study is suboptimal. 4-There is no pericardial effusion. 5-Pulmonary artery systolic pressure is within normal limits. -Oxygen therapy, cardiac -Received therapeutic Lovenox in the ER -Given history of liver cirrhosis, no history of esophageal varices, does have a history of GI bleed associated with perforated duodenal ulcer, will start on heparin drip, monitor hemoglobins every 6 hours, Hemoccult stool, monitor hemodynamics closely, last hemoglobin 13.3 -Venous ultrasound negative for DVT -Etiology unclear, no recent travel, recent surgeries, does have symptoms related to Covid, no current history of IV drug use -Full code -Lovenox for DVT prophylaxis Plan for today repeat Covid testing, do an MRCP given persistent abdominal pain, continue antibiotics, continue heparin drip, continue monitor clinically Status: Acute (2) Hyponatremia: -Likely secondary to dehydration, hypovolemic hyponatremia -Improving to 138 -Continue -Hold Lasix, spironolactone Status: Acute (3) Fever: -Fever along with left upper and right upper quadrant abdominal pain -CT scan of the abdomen pelvis did not show any source of infection -No ascites, but will do abdominal ultrasound to evaluate for possible SBP -Lipase and GGT unremarkable -No significant transaminitis, LDH 352, alk phos 95 -Ultrasound of the abdomen did show mild hepatomegaly with diffuse fatty infiltration, dilated common bile duct with mild dilatation of intrahepatic ducts, dilated common bile duct 14 mm, mild splenomegaly -CT scan of the chest does show bilateral pulmonary emboli, no focal pneumonia, no radiographic evidence of Covid -Afebrile for last 24 hours -Does have diarrhea complaints, is on lactulose, but has been on Levaquin, will do stool studies -First Covid negative, repeat Covid PCR -Follow blood cultures, urine cultures, sputum cultures, Covid PCR -She does have bilateral pulmonary emboli, certainly there is a possibility of septic emboli, however cultures have been unremarkable, she remains afebrile -Continue broad-spectrum antibiotic therapy vancomycin, Zosyn -Echocardiogram of the heart did show a thickened aortic valve, however blood cultures have been unremarkable, no evidence of IV drug use, will hold off on a JOELLE -HIV, hep, EBV, CMV ordered -Given evidence of dilated bile ducts, and persistent abdominal pain will do an MRCP Status: Acute (4) Chronic hepatitis B: -Hold tenofovir Status: Acute (5) Cirrhosis: Status: Chronic (6) Abdominal pain: -Awaiting GGT, lipase, abdominal ultrasound Status: Acute (7) Thrombocytopenia: -Secondary to liver cirrhosis Status: Acute (8) Hypoxia: Status: Acute Additional A&P Information Insulin-dependent type 2 diabetes mellitus, continue Lantus 30 units at bedtime, insulin sliding scale Hypothyroidism, continue levothyroxine Attestations Medical Necessity Statement*: Patient requires hospitalization due to persistent abdominal pain, bilateral pulmonary emboli Coding Level of Care Code Acute Account Resolution Analyst for Chg Fwd Diagnoses Bilateral pulmonary embolism I26.99 Hyponatremia E87.1 Fever R50.9 Chronic hepatitis B B18.1 Cirrhosis K74.60 Abdominal pain R10.9 Thrombocytopenia D69.6 Hypoxia R09.02
[2020-10-19] MEDS: lactated ringers 500 ML 999 ML IV (11:55)
[2020-10-19 12:17] LABS: Partial Thromboplastin Time 59.6 SECONDS (23.9-36.7)
[2020-10-19 12:33] LABS: Lipase 25 U/L (13-60)
[2020-10-19 13:18] LABS: HIV 1 & 2 Antibody Non-Reactive (Non-Reactiv); HIV 1 & 2 Antigen Non-Reactive (Non-Reactiv)
[2020-10-19] MEDS: heparin drip 25,000 UNIT/500 ML PREMIX 16 UNIT IV (13:31)
[2020-10-19 13:48] LABS: Hepatitis A Antibody IgM Non-Reactive (Nonreactive); Hepatitis B Core IgM Non-Reactive (Nonreactive); Hepatitis C Virus Antibody Reactive (Nonreactive)
--- NOTE | 2020-10-19 13:53 | PC.NURSE ---
to mri via [facility] ambulance,at this time.
[2020-10-19 14:46] LABS: Hepatitis B Surface Antigen Reactive (Nonreactive)
--- NOTE | 2020-10-19 15:00 | PC.NURSE ---
pt gave jewelry to rn prior to going to mri:1 bracelet w/purple stones,1 ring,1 nose ring ,1 tongue ring (verified with marion richards.)returned to pt bedside after procedure.
--- NOTE | 2020-10-19 16:43 | PC.NUTR ---
Nutrition assessment completed for MST score of 2. Recommend to encourage po intakes when diet resumed this PM and provide preferences as appropriate for diet order. If pt continues to have N/V, could consider clear supplement (Boost Breeze or Ensure clear). See full RD assessment for further details.
--- NOTE | 2020-10-19 18:00 | PC.NURSE ---
Shift Note Frequent safety and comfort rounds continue. Orders and/or nursing care completed as indicated. Patient monitored for response to intervention and treatment(s). Education provided includes[]. Patient and/or artists' booking representative[]. Will continue to monitor.
[2020-10-19 18:15] LABS: Glucose Point of Care 107 mg/dL (70-110)
[2020-10-19 18:33] LABS: Partial Thromboplastin Time 37.1 SECONDS (23.9-36.7)
[2020-10-19] MEDS: insulin glargine 100 units/1 mL 30 UNIT SUBCUT (20:46)
[2020-10-19] MEDS: amitriptyline 25 mg Tablet PO (21:03)
--- NOTE | 2020-10-19 22:58 | PC.NURSE ---
NURSE NOTE: IV INFILTRATION; PT'S RIGHT AC IV INFILTRATED AT THIS TIME. UNABLE TO INFUSE VANCOMYCIN. NOTIFIED DR. QUINTEROS AT THIS TIME AND RECEIVED ORDERS TO DECREASE HEPARIN BY 2 UNITS AT THIS TIME AND HOLD VANCOMYCIN UNTIL PICC PLACEMENT IN THE MORNING. DID INFORM DR. QUINTEROS THAT LAB UNABLE TO OBTAIN PTT D/T PATIENT BEING SUCH A DIFFICULT STICK AND THAT IS WHY PICC ALREADY ORDERED FOR IN THE MORNING.
[2020-10-19 23:18] LABS: Glucose Point of Care 131 mg/dL (70-110)
[2020-10-20] VITALS (8 sets, daily range): BP systolic 131–151; BP diastolic 76–86; PULSE 80–88; RESP 17–26; TEMP 36.6–36.8; O2SAT 87–98
[2020-10-20] MEDS: HYDROmorphone 1 mg/mL INJ 1 mL 0.5 MG IVP ×2 (04:05→09:06)
[2020-10-20] MEDS: levothyroxine 50 mcg Tablet PO (04:05)
[2020-10-20 06:31] LABS: Glucose Point of Care 106 mg/dL (70-110)
[2020-10-20] MEDS: albuterol 8 gm MDI 2 PUFF INHALATION (08:34)
[2020-10-20] MEDS: apixaban 5 mg Tablet 10 MG PO (08:58)
[2020-10-20] MEDS: zinc gluconate 50 mg Tablet PO (08:59)
[2020-10-20] MEDS: levETIRAcetam 500 mg Tablet 750 MG PO (08:59)
[2020-10-20] MEDS: gabapentin 100 mg Capsule PO (08:59)
[2020-10-20] MEDS: potassium chloride ER 20 mEq Tablet PO (09:00)
[2020-10-20] MEDS: ascorbic acid 500 mg Tablet 1000 MG PO (09:00)
[2020-10-20] MEDS: cholecalciferol (vitamin D3) 1,000 unit Tablet 1000 UNIT PO (09:00)
[2020-10-20] MEDS: lamoTRIgine 100 mg Tablet 200 MG PO (09:00)
[2020-10-20] MEDS: lactulose oral liq 20 gm/30 mL UDC 60 GM PO (10:20)
--- NOTE | 2020-10-20 11:06 | P.DS_ITS ---
Discharge Providers Date of Admission: 10/17/20 19:14 Date of Discharge: October 20, 2020 Attending Provider at Admission: Neftali Barrera MD Attending Provider at Discharge: Neftali Barrera MD Primary Care Provider: Francisco Mckinley DO Diagnoses at Discharge Discharge Diagnosis (1) Bilateral pulmonary embolism: Status: Acute (2) Hyponatremia: Status: Acute (3) Fever: Status: Acute (4) Chronic hepatitis B: Status: Acute (5) Cirrhosis: Status: Chronic (6) Abdominal pain: Status: Acute (7) Thrombocytopenia: Status: Acute (8) Hypoxia: Status: Acute Reason for Visit Reason for Visit: ALL OVER BODY ACHES 14723 Hospital Course Hospital Course This is a 45-year-old female with a past medical history of chronic hepatitis B infection, with history of portal hypertension with splenorenal varices, history of upper GI bleed associated with duodenal ulcer, history of hepatic encephalopathy, history of seizure disorder, history of cervical cancer, insulin-dependent type 2 diabetes mellitus, who presents to [facility] due to fatigue, malaise, vomiting, right upper and left upper quadrant abdominal pain Patient was admitted to [facility] for bilateral pulmonary emboli as him with associated hypoxia requiring 2 L, cardiac echocardiogram showed no evidence of right heart strain, bilateral extremity ultrasound negative for DVT, given her history of liver cirrhosis and upper GI bleed, she is monitor with a heparin drip during hospitalization, hemoglobin remained stable, platelet count remained stable, she remained on 2 L nasal cannula throughout her hospitalization. Patient was discharged on Eliquis, oxygen therapy, Advair, albuterol, with a follow-up with primary care for recheck CBC in 1 week. Also patient will follow with hematology oncology as outpatient. In terms of anticoagulation given her history of liver cirrhosis, splenorenal varices, and upper GI bleed associate with perforated duodenal ulcer. I confirmed with patient multiple times she is never had a history of esophageal varices. Given her bilateral pulmonary emboli, and hypoxia, I discussed the risks and benefits of anticoagulation. She was managed with a heparin drip during her inpatient stay, her hemoglobin remained within normal limits, her platelet count remained between 90 -125. I was clear with patient that given her underlying history, she is at increased risk of significant bleeding, morbidity and mortality associated with anticoagulation. However given her hypoxia and her bilateral pulmonary emboli, I feel at this time the benefits outweigh the risk, however if she were to have any episodes of major bleeding this will have to be reassessed. I did briefly discuss placement of IVC filter, as her bilateral lower extremity ultrasounds were negative for DVT, the etiology of her pulmonary emboli are uncertain, will have patient follow-up with hematology as outpatient for further work-up, and evaluation and shared decision-making about IVC filter placement if she cannot tolerate anticoagulation. For patient's abdominal pain, fevers during the hospitalization: -Fever along with left upper and right upper quadrant abdominal pain -CT scan of the abdomen pelvis did not show any acute source of infection -No ascites, abdominal ultrasound did not show any free fluid -Lipase and GGT unremarkable -No significant transaminitis, LDH 352, alk phos 95 -Ultrasound of the abdomen did show mild hepatomegaly with diffuse fatty infiltration, dilated common bile duct with mild dilatation of intrahepatic ducts, dilated common bile duct 14 mm, mild splenomegaly -MRCP did not show any significant evidence of biliary stones, or biliary obstruction -CT scan of the chest does show bilateral pulmonary emboli, no focal pneumonia, certainly septic emboli are a possibility, but blood cultures were unremarkable no radiographic evidence of Covid -First Covid negative, r -Follow blood cultures, urine cultures, sputum cultures, Covid PCR were all unremarkable -Echocardiogram of the heart did show a thickened aortic valve, however blood cultures have been unremarkable, no evidence of IV drug use, will hold off on a JOELLE for now -HIV negative, EBV, CMV ordered -She was managed with broad-spectrum antibiotic therapy, clinically monitored, remained afebrile, cultures came back unremarkable, and antibiotic therapy was discontinued -Patient's hepatitis C antibody came back positive, she denies any recent sexual encounters, denies any IV drug use, she not sure how she became positive -So far HCV PCR and genotype is pending -Thus likely patient's fevers, abdominal pain, fatigue, malaise were likely related to her acute hepatitis C -Given her chronic hepatitis B, and as she was on tenofovir her, I favor not treating her acute hepatitis C -Her abdominal pain, nausea, vomiting improved -LFTs within normal -We will have patient follow-up with her senior science consultant within the week for decision of treatment of hepatitis C, hepatitis C PCR, and genotyping -She was advised if she were to have recurrent fevers, nausea, vomiting go to emergency room Physical Exam Const: COMMON NORMALS: no acute distress and patient oriented x3 Resp: COMMON NORMALS: normal respiratory effort, No retractions, No use of accessory muscles and clear to auscultation bilaterally AUSCULTATION: clear to auscultation bilaterally Cardio: COMMON NORMALS: regular rate, regular rhythm, S1 normal heart sound present and S2 normal heart sound present RATE: regular rate RHYTHM: regular rhythm HEART SOUNDS: S1 normal heart sound present and S2 normal heart sound present GI: COMMON NORMALS: Normal to inspection, nondistended, normoactive bowel sounds present and Soft to palpation PALPATION: Yes Soft to palpation Extremity: COMMON NORMALS: no pedal edema Neuro: COMMON NORMALS: patient oriented x3 Discharge Data Data Completed and Pending: Completed Studies During Hospitalization Category Date Time Status CT abdomen pelvis w con* [id number] Stat Cat Scan 10/17/20 16:[address] angio chest PE protcl [id number] Stat Cat Scan 10/17/20 15:27 Completed XR chest 1V becca ble [id number] Stat Exams 10/17/20 13:41 Completed MR MRCP [id number] Rou paco MRI 10/19/20 08:13 [place] [id number] Stat Ultrasound 10/17/20 16:45 Completed CV. echo complete * [id number] Routine Ultrasound 10/18/20 19:14 Completed US abdomen comple te* [id number] Routine Ultrasound 10/18/20 19:14 Completed Pending at discharge Category Date Time Status Ammonia AM LABS Lab 10/20/20 04:00 Ordered Blood Culture Sta t Lab 10/17/20 15:05 Results C Reactive Protei n AM LABS Lab 10/20/20 04:00 Ordered CMV IGG&IGM Panel Stat Lab 10/19/20 11:39 Received Clostridioides Di fficile PCR Routin e Lab 10/17/20 19:14 Ordered Complete Blood Co unt w/Auto AM LABS Lab 10/20/20 04:00 Ordered Complete Blood Co unt w/Auto AM LABS Lab 10/21/20 04:00 Ordered Complete Blood Co unt w/Auto AM LABS Lab 10/22/20 04:00 Ordered Comprehensive Met abolic Panel AM LA BS Lab 10/20/20 04:00 Ordered Comprehensive Met abolic Panel AM LA BS Lab 10/21/20 04:00 Ordered Coronavirus Test [facility] Stat Lab 10/19/20 10:30 Received EBV IGG & IGM Sta t Lab 10/19/20 11:39 Received Enteric Bacterial Panel by PCR Rout ine Lab 10/17/20 19:14 Ordered Enteric Parasite Panel by PCR Routi ne Lab 10/17/20 19:14 Ordered Ferritin AM LABS Lab 10/20/20 04:00 Ordered Hepatitis C Genot ype RNA Stat Lab 10/20/20 07:52 Ordered Hepatitis C RNA V iral Load Qnt Stat Lab 10/20/20 07:52 Ordered Immunochemical Fe prabhu OCB Routine Lab 10/17/20 19:14 Ordered Lactate (Lactic A mari level) AM LABS Lab 10/20/20 04:00 Ordered Lactoferrin Routi ne Lab 10/17/20 19:14 Ordered Magnesium AM LABS Lab 10/20/20 04:00 Ordered Miscellaneous Anabella t Routine Lab 10/19/20 11:39 Received NT Pro B Type Amee riuretic Pept QAM Lab 10/20/20 04:00 Ordered PTT [Partial Thro mboplastin Time] R outine Lab 10/19/20 21:00 Ordered Phosphorus AM LAB S Lab 10/20/20 04:00 Ordered Procalcitonin AM LABS Lab 10/20/20 04:00 Ordered Prothrombin Time INR AM LABS Lab 10/20/20 04:00 Ordered Respiratory Viral Panel PCR Stat Lab 10/19/20 10:30 Received Sputum Culture an d Gram Stain Stat Lab 10/19/20 13:42 Results Vancomycin Trough 0800 Lab 10/22/20 08:00 Ordered Labs from last 24 hours 10/20/20 10/19/20 10/19/20 06:18 19:42 17:56 APTT POC Glucose 106 131 H 107 Lipase RSV Nasal Swab RSV Nasal Swab Int Cntl Adenovirus (PCR) Nasal/Oral COVID-1 9 PCR CMV IgG Ab CMV IgM Ab EBV IgG Ab EBV IgM Ab EBV Nuclear Antige n EBV Interpretation Hepatitis A IgM Ab Hep Bs Antigen Hep B Core IgM Ab Hepatitis C Antibo dy HIV 1&2 Ab & HIV 1 Ag HIV 1&2 Antibody Human Metapneumovi r PCR Influenza A (RT-PC R) Influenza A (H1) P CR Influenza A (H3) P CR Influenza B (RT-PC R) Parainfluenzae Typ e 1 Parainfluenzae Typ e 2 Parainfluenzae Typ e 3 RSV Ab Comment Rhinovirus (PCR) Misc Test Referenc e 10/19/20 10/19/20 10/19/20 17:50 11:39 11:39 APTT 37.1 H POC Glucose Lipase 25 RSV Nasal Swab RSV Nasal Swab Int Cntl Adenovirus (PCR) Nasal/Oral COVID-1 9 PCR CMV IgG Ab CMV IgM Ab EBV IgG Ab EBV IgM Ab EBV Nuclear Antige n EBV Interpretation Hepatitis A IgM Ab Hep Bs Antigen Hep B Core IgM Ab Hepatitis C Antibo dy HIV 1&2 Ab & HIV 1 Ag HIV 1&2 Antibody Human Metapneumovi r PCR Influenza A (RT-PC R) Influenza A (H1) P CR Influenza A (H3) P CR Influenza B (RT-PC R) Parainfluenzae Typ e 1 Parainfluenzae Typ e 2 Parainfluenzae Typ e 3 RSV Ab Comment Rhinovirus (PCR) Misc Test Referenc e Pending 10/19/20 10/19/20 10/19/20 11:39 11:39 11:39 APTT POC Glucose Lipase RSV Nasal Swab RSV Nasal Swab Int Cntl Adenovirus (PCR) Nasal/Oral COVID-1 9 PCR CMV IgG Ab Pending CMV IgM Ab Pending EBV IgG Ab Pending EBV IgM Ab Pending EBV Nuclear Antige n Pending EBV Interpretation Pending Hepatitis A IgM Ab Hep Bs Antigen Hep B Core IgM Ab Hepatitis C Antibo dy HIV 1&2 Ab & HIV 1 Ag Non-reactive HIV 1&2 Antibody Non-reactive Human Metapneumovi r PCR Influenza A (RT-PC R) Influenza A (H1) P CR Influenza A (H3) P CR Influenza B (RT-PC R) Parainfluenzae Typ e 1 Parainfluenzae Typ e 2 Parainfluenzae Typ e 3 RSV Ab Comment Rhinovirus (PCR) Misc Test Referenc e 10/19/20 10/19/20 10/19/20 11:39 11:39 10:30 APTT 59.6 H POC Glucose Lipase RSV Nasal Swab RSV Nasal Swab Int Cntl Adenovirus (PCR) Nasal/Oral COVID-1 9 PCR Pending CMV IgG Ab CMV IgM Ab EBV IgG Ab EBV IgM Ab EBV Nuclear Antige n EBV Interpretation Hepatitis A IgM Ab Non-reactive Hep Bs Antigen Reactive H Hep B Core IgM Ab Non-reactive Hepatitis C Antibo dy Reactive H HIV 1&2 Ab & HIV 1 Ag HIV 1&2 Antibody Human Metapneumovi r PCR Influenza A (RT-PC R) Influenza A (H1) P CR Influenza A (H3) P CR Influenza B (RT-PC R) Parainfluenzae Typ e 1 Parainfluenzae Typ e 2 Parainfluenzae Typ e 3 RSV Ab Comment Rhinovirus (PCR) Misc Test Referenc e 10/19/20 10:30 APTT POC Glucose Lipase RSV Nasal Swab Pending RSV Nasal Swab Int Cntl Pending Adenovirus (PCR) Pending Nasal/Oral COVID-1 9 PCR CMV IgG Ab CMV IgM Ab EBV IgG Ab EBV IgM Ab EBV Nuclear Antige n EBV Interpretation Hepatitis A IgM Ab Hep Bs Antigen Hep B Core IgM Ab Hepatitis C Antibo dy HIV 1&2 Ab & HIV 1 Ag HIV 1&2 Antibody Human Metapneumovi r PCR Pending Influenza A (RT-PC R) Pending Influenza A (H1) P CR Pending Influenza A (H3) P CR Pending Influenza B (RT-PC R) Pending Parainfluenzae Typ e 1 Pending Parainfluenzae Typ e 2 Pending Parainfluenzae Typ e 3 Pending RSV Ab Comment Pending Rhinovirus (PCR) Pending Misc Test Referenc e Vitals: Last Vital Signs Temp 97.9 F 10/20/20 07:51 Pulse 88 10/20/20 08:34 Resp 22 H 10/20/20 09:06 BP 131/76 10/20/20 07:51 Pulse Ox 94 10/20/20 09:06 Discharge Plan Discharge Patient Disposition: Home Condition: Stable Prescriptions: New oxycodone 5 mg tablet 5 mg PO BID PRN (Reason: pain) 5 Days Qty: 10 RF: 0 fluticasone propion-salmeterol [Advair Diskus] 250-50 mcg/dose Blister With Device 1 ea inhalation BID.RESPIRATORY 30 Days Qty: 60 RF: 0 Eliquis DVT-PE Treat 30D Start 5 mg (74 tabs) tablets,dose pack See Rx Instructions .ROUTE .COMPLEX Qty: 74 RF: 0 albuterol sulfate 90 mcg/actuation HFA aerosol inhaler 1 inh inhalation Q6H PRN (Reason: shortness of breath or wheezing) Qty: 8.5 RF: 0 Continued Xifaxan 550 mg tablet 550 mg PO BID RF: 0 tenofovir disoproxil fumarate 300 mg tablet 300 mg PO DAILY Qty: 30 RF: 6 levothyroxine 50 mcg tablet 50 mcg PO QAM Qty: 30 RF: 0 lamotrigine 200 mg tablet 200 mg PO DAILY RF: 0 gabapentin 100 mg capsule 100 mg PO BID RF: 0 Narcan 4 mg/actuation spray,non-aerosol See Rx Instructions .ROUTE .COMPLEX RF: 0 Lantus U-100 Insulin 100 unit/mL solution 30 unit SUBCUT BEDTIME RF: 0 ibuprofen 800 mg Tablet 800 mg PO PRN RF: 0 tizanidine 4 mg tablet 4 mg PO Q6H PRN (Reason: Muscle Spasm) RF: 0 Imitrex 50 mg Tablet 50 mg PO Q2H MDD 2 tabs PRN (Reason: Migraine Headache) RF: 0 spironolactone 25 mg tablet 25 mg PO QAM RF: 0 potassium chloride 20 mEq tablet,ER particles/crystals 20 meq PO DAILY RF: 0 amitriptyline 25 mg tablet 25 mg PO BEDTIME RF: 0 promethazine 25 mg tablet 25 mg PO TID PRN (Reason: Nausea) RF: 0 levetiracetam 750 mg tablet 750 mg PO BID RF: 0 lactulose 10 gram/15 mL solution 90 ml PO TID RF: 0 pantoprazole 40 mg tablet,delayed release (DR/EC) 40 - 80 mg PO DAILY PRN (Reason: Acid Reflux) RF: 0 Changed furosemide 40 mg tablet 40 mg PO DAILY Qty: 0 RF: 0 Discontinued levofloxacin 750 mg tablet 750 mg PO DAILY RF: 0 Discharge Orders: Discharge Order (Routine); Ordered 10/20/20 Ordered By: Neftali Barrera Referrals: CahporTonny MD [Physician] - 1 month Francisco Mckinley DO [Primary Care Provider] - 4-7 days Discharge Diet: Cardiac Discharge Activity: Resume usual activity Patient Instructions: Opioid Safety Activity Restrictions/Additional Instructions: -Please use opiate medication sparingly -Please use Eliquis as prescribed, if you have bloody or black stools, bloody cough or bloody vomit go to the emergency room -Follow-up with primary care provider for recheck CBC, hemoglobin and platelet count this week -For hepatitis C, serologies are pending, please follow-up with senior science consultant within a week -Use oxygen as prescribed, Advair, albuterol as prescribed -If you have recurrent fevers please go back to emergency room Discharge Attestations Time Spent in Discharge Care*: less than 30 min Quality Metrics Clinical Quality Measures During this hospital stay, did patient experience: None Coding Level of Care Code Acute Chg FW [place] note Diagnoses Bilateral pulmonary embolism I26.99 Hyponatremia E87.1 Fever R50.9 Chronic hepatitis B B18.1 Cirrhosis K74.60 Abdominal pain R10.9 Thrombocytopenia D69.6 Hypoxia R09.02
[2020-10-20 11:39] LABS: Glucose Point of Care 82 mg/dL (70-110)
[2020-10-20 12:27] LABS: EBV IGG TEST >750.00 U/mL; EBV IGM TEST <36.00 U/mL; EBV Nuclear AG >600.00 U/mL
--- NOTE | 2020-10-20 13:36 | PC.NURSE ---
discharge instructions given and explained.pt verb understanding of instructions.HOME brought pt's oxygen and instructed in use.discharged via w/c to exit.pt's mil to drive pt home.
[2020-10-20 14:42] LABS: Cytomegalovirus Antibody (IGG) >10.00 U/mL; Cytomegalovirus Antibody (IGM) <30.00 AU/mL
--- NOTE | 2020-10-20 14:48 | PC.NURSE ---
Shift Note Frequent safety and comfort rounds continue. Orders and/or nursing care completed as indicated. Patient monitored for response to intervention and treatment(s). Education provided includes[mri,eliquis,pulm embolism]. Patient and/or school admissions representative[verb understanding]. Will continue to monitor.
--- NOTE | 2020-10-20 14:51 | PC.NURSE ---
Discharge Note Patient discharged to [exit] via [w/c] accompanied by [nurse]. Discharge instructions reviewed with patient and/or account retention representative. Mobile pharmacy medications and/or prescriptions provided. Belongings/home medications returned.
--- NOTE | 2020-10-20 14:55 | PC.NURSE ---
after discharge today,pt's pharmacy called and stated that medicaid would not approve eliquis....([facility] [place])proper coding obtained from case management and phoned to pharmacy.pharmacy called back and stated that eliquis still denied by medicaid.rn asked if eliquis coupon could be used..and pharmacy said no.at this point case management again notified...teddy stated she will call medicaid .then recieved word from delicia that medicaid finally approved for 3 months.in the meantime...pt called unit..stated she did not get her jewlery back yesterday after her mri.jewelry found in bag in [facility] of now vacant room.pt states she will pick it up tomorrow.placed in [facility].
[2020-10-20 16:43] LABS: Coronavirus Test Green County Not Detected
[2020-10-22 16:50] LABS: Adenovirus Not Detected (Not Detected); Human Metapneumovirus Not Detected (Not Detected); Human Parainflu Virus 1 Not Detected (Not Detected); Human Parainflu Virus 2 Not Detected (Not Detected); Human Parainflu Virus 3 Not Detected (Not Detected); Human Rsv A Not Detected (Not Detected); Influenza A Not Detected (Not Detected); Influenza B Not Detected (Not Detected); Rhinovirus/Enterovirus Not Detected (Not Detected)
== END 2020-10-20 13:35 | disposition home or self-care (01) | DRG 176 ==
LOC: ER 17:20 → CSU 10-18 06:41
PROVIDERS: Admitting Provider Family Medicine; Emergency Provider Family Medicine; PCP Family Medicine; Visit Provider Family Medicine
DX: I26.99 Other pulmonary embolism without acute cor pulmonale (principal); B18.1 Chronic viral hepatitis B without delta-agent; B17.10 Acute hepatitis C without hepatic coma; E87.1 Hypo-osmolality and hyponatremia; G89.29 Other chronic pain; K74.60 Unspecified cirrhosis of liver; E11.9 Type 2 diabetes mellitus without complications; K21.9 Gastro-esophageal reflux disease without esophagitis; I10 Essential (primary) hypertension; F17.210 Nicotine dependence, cigarettes, uncomplicated; D69.59 Other secondary thrombocytopenia; E03.9 Hypothyroidism, unspecified; Z79.4 Long term (current) use of insulin
CPT/HCPCS: 36415; 36416; 71045; 71275; 74177; 74181; 76700; 80053; 80074; 80202; 81001; 82140; 82550; 82728; 82962; 82977; 83036; 83605; 83615; 83690; 83735; 83880; 84100; 84145; 84443; 84484; 85025; 85049; 85378; 85610; 85730; 86140; 86403; 86664; 86665; 87040; 87070; 87086; 87205; 87426; 87635; 87804; 87806; 93005; 93306; 93970; 94640; 94664; 96365; 96367; 96372; 96375; 97165; 99291; J1170; J1644; J1650; J1815 ×2; J1885; J1956; J2270; J2543; J3370; J3535; J7030; J7040; Q9967

== ENCOUNTER 2020-11-08 19:15 | Emergency (ER) | payer MEDICAID, SELFPAY ==
[2020-11-08 19:25] VITALS: BP 158/102; PULSE 127; RESP 20; TEMP 37.3; O2SAT 97; BMI 36.1
--- NOTE | 2020-11-08 19:53 | XRR_ITS ---
PROCEDURE INFORMATION: Exam: XR Chest Exam date and time: 11/08/2020 7:53 PM Age: 45 years old Clinical indication: Sternal or substernal pain; Additional info: Cp TECHNIQUE: Imaging protocol: XR of the chest. Views: 1 view. COMPARISON: CR (CHEST, ) 10/17/2020 1:55 PM FINDINGS: Lungs: Diffuse increase in interstitial lung markings are more pronounced than prior imaging. No focal airspace consolidation. Decreased lung volumes. Pleural spaces: Unremarkable. No pleural effusion. No pneumothorax. Heart/Mediastinum: Unremarkable. No cardiomegaly. Bones/joints: Unremarkable. XR/XR chest 1V portable [id number] IMPRESSION: Prominent vascularity throughout the lungs increased from prior imaging. Mild pulmonary vascular congestion or other interstitial disease process suspected.
== END 2020-11-08 22:46 | disposition left against medical advice (07) ==
LOC: ER 19:36
PROVIDERS: Emergency Provider Family Medicine; PCP Family Medicine
DX: R07.9 Chest pain, unspecified (principal); R11.2 Nausea with vomiting, unspecified; K92.1 Melena; Z53.21 Procedure and treatment not carried out due to patient leaving prior to being seen by health care provider
CPT/HCPCS: 71045

== ENCOUNTER 2020-11-10 13:29 | Emergency (ER) | payer MEDICAID, SELFPAY ==
[2020-11-10 13:36] VITALS: BP 164/101; PULSE 110; RESP 24; TEMP 36.6; O2SAT 94; BMI 35.2
--- NOTE | 2020-11-10 14:18 | XR_ITS ---
WS: [id number] Exam: XR chest 1V portable [id number] Date/Time of Exam: 11/10/2020 2:18 PM Reason For Exam: SOB Comparison 11/08/2020. There are mild groundglass infiltrates in the bilateral lung bases suggesting pneumonia. Mild groundg lass infiltrate also seen in the lateral aspect of the right midlung. Heart size is normal. Pulmonary vascularity slightly increased. No pleural effusion or pneumothorax. XR/XR chest 1V portable [id number] IMPRESSION: 1. Bilateral pulmonary infiltrates which have increased since the prior study. Findings suggest pneumonia. Covid pneumonia might be considered.
--- NOTE | 2020-11-10 15:09 | CTR_ITS ---
PROCEDURE INFORMATION: Exam: CTA Chest With Contrast Exam date and time: 11/10/2020 3:09 PM Age: 45 years old Clinical indication: Fever; Shortness of breath; Prior surgery; Surgery type: Hyst; Patient HX: Gastric cancer; Additional info: Recent pe, worsening SOB, hematochezia, vaginal bleeding TECHNIQUE: Imaging protocol: Computed tomographic angiography of the chest with contrast. 3D rendering (Not supervised by radiologist): MIP and/or 3D reconstructed images were created by the technologist. Radiation optimization: All CT scans at this facility use at least one of these dose optimization techniques: automated exposure control; mA and/or kV adjustment per patient size (includes targeted exams where dose is matched to clinical indication); or iterative reconstruction. Contrast material: OMNI 350; Contrast volume: 95 ml; Contrast route: INTRAVENOUS (IV); COMPARISON: CT angio chest PE protcl [id number] 10/17/2020 3:46 PM RADIATION DOSE METRICS: Total DLP (mGy-cm): 1909.33 FINDINGS: Pulmonary arteries: Normal. No pulmonary emboli. Aorta: Unremarkable. No aortic aneurysm. No aortic dissection. Lungs: Moderate severity emphysema. Negative for space consolidation scattered small blebs in the peripheral lungs. Negative for endobronchial obstruction. No peripheral honeycombing. Negative for bronchiectasis. Pleural spaces: Unremarkable. No pneumothorax. No pleural effusion. Heart: Unremarkable. No cardiomegaly. No pericardial effusion. Lymph nodes: Unremarkable. No enlarged lymph nodes. Bones/joints: Unremarkable. No acute fracture. Soft tissues: Unremarkable. IMPRESSION: Negative CT angiogram chest. No pulmonary embolism. PROCEDURE INFORMATION: Exam: CT Abdomen And Pelvis With Contrast Exam date and time: 11/10/2020 3:09 PM Age: 45 years old Clinical indication: Fever; Shortness of breath; Prior surgery; Surgery type: Hyst; Patient HX: Gastric cancer; Additional info: Recent pe, worsening SOB, hematochezia, vaginal bleeding TECHNIQUE: Imaging protocol: Computed tomography of the abdomen and pelvis with contrast. Radiation optimization: All CT scans at this facility use at least one of these dose optimization techniques: automated exposure control; mA and/or kV adjustment per patient size (includes targeted exams where dose is matched to clinical indication); or iterative reconstruction. Contrast material: OMNI 350; Contrast volume: 95 ml; Contrast route: INTRAVENOUS (IV); COMPARISON: CT angio chest PE protcl [id number] 10/17/2020 3:46 PM RADIATION DOSE METRICS: Total DLP (mGy-cm): 1909.33 FINDINGS: Liver: Subcentimeter circumscribed low-attenuation lesion in segment 6 of the liver measures 7-8 mm. Too small to further characterize. Capsular surface of the liver is mildly nodular. Circumscribed low-attenuation lesion in segment 3 of the liver measures 8-9 mm, also too small to further characterize. Favor benign hepatic cysts. Gallbladder and bile ducts: Common bile duct is mildly prominent without intrahepatic biliary duct dilation. Gallbladder is unremarkable. Pancreas: Normal. No ductal dilation. Spleen: Mild splenomegaly. Adrenal glands: Normal. No mass. Kidneys and ureters: No renal stones. Small simple right kidney posterior upper pole cortical cyst measuring 18 mm. No dedicated follow-up recommended. No hydronephrosis. Stomach and bowel: No active gastrointestinal bleeding is identified. Moderate fecal volume. No focal bowel wall mass or focal bowel inflammatory change. Negative for bowel obstruction. Appendix: No evidence of appendicitis. Intraperitoneal space: Unremarkable. No free air. No significant fluid collection. Vasculature: There is early cavernous transformation changes in the main portal vein with diminutive caliber. The splenic vein is dilated. There is a large left-sided splenorenal shunt. Lymph nodes: Unremarkable. No enlarged lymph nodes. Urinary bladder: Unremarkable as visualized. Reproductive: Hysterectomy. Bones/joints: Unremarkable. No acute fracture. Soft tissues: Unremarkable. CT/CT angio chest w abd pel w con IMPRESSION: 1. Negative for acute abdominopelvic pathology. 2. Cirrhotic morphology changes of the liver are suspected. 3. Diminutive caliber of main portal vein with possibly early cavernous transformation changes. Large, dilated tortuous splenorenal shunt noted. Cluster of large varices are noted in the left lower abdomen. COMMENTS: Consistent with the [employer]'s Incidental Findings Committee white paper (J Am Diego Radiol 2018): Any incidental renal lesion less than 1 cm or classified as too small to characterize, or any incidental cystic renal lesion characterized as simple-appearing, is likely benign. No follow-up imaging is recommended for these lesions per consensus recommendations based on imaging criteria. Radiation Dose CTDIVOL = (mGy): DLP = 1909.33~1908.33 (mGy-cm)
--- NOTE | 2020-11-10 16:01 | PC.PHAR ---
PT STATES HER AND HER MOTHER IN LAW TAKE CARE OF HER MEDICATIONS-PT STATES SHE IS ALLERGIC TO ASPIRIN BUT STATES SHE TAKES THE 81MG ASPIRIN DAILY STATES SHE DOES FINE WITH IT-PT STATES SHE IS ON THE 5MG BID DOSE OF ELIQUIS -STARTER PACK WAS FILLED ON 10/20/20 28D/S-PT STATES SHE FINISHED HER CEFDINIR 300MG BID ON SUN OR SUNDAY RX FILLED ON 11/01/20 7 D/S-PT STATES SHE THOUGHT SHE WAS TAKING LAMOTRIGINE 200MG DAILY PTS MOTHER IN LAW STATES THE PT IS NOT TAKING EXT MED HISTORY SHOWS LAST FILLED ON 11/14/2019
--- NOTE | 2020-11-10 16:57 | ED_ITS ---
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 She presents to the emergency department today with complaints of shortness of breath and blood in her stools. She is currently taking Eliquis for the pulmonary embolism. She claims to have had several episodes of blood in her stools, small amounts. She denies a fever, denies a cough, denies exposure to Covid. Onset (ago): day(s) Review of Systems General: Reports: 10 or more systems reviewed and unremarkable except in HPI and below PFSH ED PFSH: Medical History Chronic abdominal pain Chronic hepatitis B Chronic hip pain Cirrhosis Diabetes mellitus Encephalopathy Gastroesophageal reflux GI bleeding Hypertension Leg cramps Pelvic inflammatory disease Stomach cancer Surgical History H/O tubal ligation History of hysterectomy History of laparotomy Family History Mother Diabetes Father CAD (coronary artery disease) Other Cancer Social History Smoking and tobacco status: current every day smoker cigarettes Packs smoked per day: 0.25 Alcohol intake: never Physical Exam Const: COMMON NORMALS: no acute distress, average body habitus, patient orishannan simmons x3, no limitations, healthy appearing, alert and well nourished HENMT: COMMON NORMALS: normocephalic, atraumatic and moist oral mucous membran es HEAD & SCALP: normocephalic and atraumatic Neck/C-Spine: COMMON NORMALS: no meningeal signs and no JVD Chest: COMMONS NORMALS: normal inspection of the chest and normal palpation of entire chest wall Resp: COMMON NORMALS: normal respiratory effort, No retractions, No use of accessory muscles, clear to auscultation bilaterally and percussion normal AUSCULTATION: clear to auscultation bilaterally PERCUSSION: percussion normal Cardio: COMMON NORMALS: no JVD, regular rate, regular rhythm, S1 normal heart sound present, S2 normal heart sound present, No gallops present (Cardio), No clicks present (Cardio), No murmurs present (Cardio), No rub (Cardio) and Peripheral pulses 2+ throughout RATE: regular rate RHYTHM: regular rhythm HEART SOUNDS: S1 normal heart sound present and S2 normal heart sound present PERIPHERAL PULSES: Peripheral pulses 2+ throughout GI: COMMON NORMALS: Normal to inspection, nondistended, normoactive bowel deniz nds present, Soft to palpation, non-tender, No hepatosplenomegaly present, no masses and no bruits PALPATION: Yes Soft to palpation and Yes No hepatosplenomegaly present Extremity: COMMON NORMALS: normal to inspection, full ROM, capillary refill normal, no calf tenderness and no pedal edema Neuro: COMMON NORMALS: patient oriented x3 SENSORIUM/ORIENTATION: Yes alert MENINGEAL SIGNS: Yes no meningeal signs Skin: COMMON NORMALS: no rashes or lesions noted, no wounds, turgor normal, no jaundice, no petechiae and no mottling GENERAL SKIN EXAM: no rashes or lesions noted and turgor normal Procedures EJ/Peripheral Line Arm L: Time Out Performed: Yes Skin Cleansed in Sterile Fashion: Yes Size (gauge): 20 IV Secured and Dressing Applied: Yes Patient Tolerated Procedure: well Additional Comments: The patient's nurse had difficulty obtaining an IV. I obtained an 20 gauge IV in her left forearm under ultrasound guidance at the first attempt Course Reevaluation(s): Reevaluation #1: Discussed her lab and imaging findings with her. Negative for acute findings. She will be discharged home with no new orders. She voiced understanding and is in agreement with this plan. Time: 18:40 Vital Signs: Vital signs: Vital Signs Temperature 97.9 F 11/10/20 13:36 Pulse Rate 88 11/10/20 16:59 Respiratory Rate 18 11/10/20 16:59 Blood Pressure 152/103 11/10/20 16:59 Pulse Oximetry 98 11/10/20 16:59 MDM - General Adult MDM Narrative: Medical decision making narrative: 45-year-old female who presents to the emergency department with complaints of shortness of breath and had blood in her stools. She was recently diagnosed with a pulmonary embolism 3 weeks ago and that is why she is on anticoagulation. She has liver cirrhosis from hepatitis B and C also. In the emergency department evaluation was unremarkable including CTA of her chest abdomen and pelvis. She is discharged home with no new orders. Medical Records: Attestation: I reviewed the patient's medical records. Lab Data: Attestation: I reviewed the patient's lab results. Labs: Lab Results 11/10/20 11/10/20 11/10/20 Range/Units 17:00 17:00 17:00 WBC 9.1 (4.0-10.0) 10^3/ uL RBC 4.13 (4.1-5.3) 10^6/u L Hgb 12.6 (11.5-15.3) g/dL Hct 38.9 (37.0-47.0) % MCV 94.2 (81-99) fl MCH 30.5 (28.0-34.0) pg MCHC 32.4 (30.0-36.0) g/dL RDW 13.4 (12.1-15.1) % Plt Count 100 L (130-400) 10^3/c mm MPV 11.1 H (7.4-10.4) fL Neut % (Auto) 59.5 % Lymph % (Auto) 18.6 % Gates % (Auto) 19.2 % Eos % (Auto) 1.9 % Baso % (Auto) 0.4 % Neut # (Auto) 5.39 (1.8-7.7) 10^3/u L Lymph # (Auto) 1.7 (0.8-4.8) 10^3/u L Gates # (Auto) 1.7 H (0.2-0.9) 10^3/u L Eos # (Auto) 0.2 (0.0-0.8) 10^3/u L Baso # (Auto) 0.0 (0.0-0.1) 10^3/u L Nucleated RBC % (a uto) 0 % Nucleated RBCs # 0.0 /100WBC PT 14.80 (12.1-14.9) SECO NDS INR 1.13 (0.8-1.2) APTT 36.9 H (23.9-36.7) SECO NDS Sodium 139 (136-145) mmol/L Potassium 3.1 L (3.5-5.1) mmol/L Chloride 102 (98-107) mmol/L Carbon Dioxide 29 (22-29) mmol/L Anion Gap 11.1 (5-19) BUN 8 (6-20) mg/dL Creatinine 0.5 (0.5-0.9) mg/dL GFR Calculation 132.8 H (90-130) mL/min Glucose 122 H (65-115) mg/dL Calculated Osmolal ity 288 (285-295) mOsm/k g Calcium 8.3 L (8.5-10.5) mg/dL Total Bilirubin 0.7 (0.15-1.2) mg/dL AST 57 H (0-32) U/L ALT 35 H (0-33) U/L Alkaline Phosphata se 99 (35-105) IU/L Ammonia (11-51) umol/L Total Protein 7.4 (6.6-8.7) g/dL Albumin 3.3 L (3.5-5.2) g/dL Globulin 4.1 (1.3-4.6) g/dL SARS-CoV-2 Ag (Rap id) (Negative) 11/10/20 11/10/20 Range/Units 17:00 17:00 WBC (4.0-10.0) 10^3/ uL RBC (4.1-5.3) 10^6/u L Hgb (11.5-15.3) g/dL Hct (37.0-47.0) % MCV (81-99) fl MCH (28.0-34.0) pg MCHC (30.0-36.0) g/dL RDW (12.1-15.1) % Plt Count (130-400) 10^3/c mm MPV (7.4-10.4) fL Neut % (Auto) % Lymph % (Auto) % Gates % (Auto) % Eos % (Auto) % Baso % (Auto) % Neut # (Auto) (1.8-7.7) 10^3/u L Lymph # (Auto) (0.8-4.8) 10^3/u L Gates # (Auto) (0.2-0.9) 10^3/u L Eos # (Auto) (0.0-0.8) 10^3/u L Baso # (Auto) (0.0-0.1) 10^3/u L Nucleated RBC % (a uto) % Nucleated RBCs # /100WBC PT (12.1-14.9) SECO NDS INR (0.8-1.2) APTT (23.9-36.7) SECO NDS Sodium (136-145) mmol/L Potassium (3.5-5.1) mmol/L Chloride (98-107) mmol/L Carbon Dioxide (22-29) mmol/L Anion Gap (5-19) BUN (6-20) mg/dL Creatinine (0.5-0.9) mg/dL GFR Calculation (90-130) mL/min Glucose (65-115) mg/dL Calculated Osmolal ity (285-295) mOsm/k g Calcium (8.5-10.5) mg/dL Total Bilirubin (0.15-1.2) mg/dL AST (0-32) U/L ALT (0-33) U/L Alkaline Phosphata se (35-105) IU/L Ammonia 79 H (11-51) umol/L Total Protein (6.6-8.7) g/dL Albumin (3.5-5.2) g/dL Globulin (1.3-4.6) g/dL SARS-CoV-2 Ag (Rap id) Negative (Negative) Imaging Data^: CTA Chest: Attestation: I personally reviewed and interpreted this imaging study as follows: Radiologist's impression: [address] [address]QE Scan ReportSigned Patient: Mel Foremanit #: [id number]: 1975Acct#:[id number]/Sex: 45 / FADM Date: 11/10/20Loc: ERRoom/Bed:Attending Dr: Ordering Provider/Ordering MD: Ariadna Dyson MD, [facility] [place] Date of Service: 11/10/20 Procedure(s): CT angio chest w abd pel w con Accession Number(s): [id number] Report Number: [id number] PROCEDURE INFORMATION: Exam: CTA Chest With Contrast Exam date and time: 11/10/2020 3:09 PM Age: 45 years old Clinical indication: Fever; Shortness of breath; Prior surgery; Surgery type: Hyst; Patient HX: Gastric cancer; Additional info: Recent pe, worsening SOB, hematochezia, vaginal bleeding TECHNIQUE: Imaging protocol: Computed tomographic angiography of the chest with contrast. 3D rendering (Not supervised by radiologist): MIP and/or 3D reconstructed images were created by the technologist. Radiation optimization: All CT scans at this facility use at least one of these dose optimization techniques: automated exposure control; mA and/or kV adjustment per patient size (includes targeted exams where dose is matched to clinical indication); or iterative reconstruction. Contrast material: OMNI 350; Contrast volume: 95 ml; Contrast route: INTRAVENOUS (IV); COMPARISON: CT angio chest PE protcl [id number] 10/17/2020 3:46 PM RADIATION DOSE METRICS: Total DLP (mGy-cm): 1909.33 FINDINGS: Pulmonary arteries: Normal. No pulmonary emboli. Aorta: Unremarkable. No aortic aneurysm. No aortic dissection. Lungs: Moderate severity emphysema. Negative for space consolidation scattered small blebs in the peripheral lungs. Negative for endobronchial obstruction. No peripheral honeycombing. Negative for bronchiectasis. Pleural spaces: Unremarkable. No pneumothorax. No pleural effusion. Heart: Unremarkable. No cardiomegaly. No pericardial effusion. Lymph nodes: Unremarkable. No enlarged lymph nodes. Bones/joints: Unremarkable. No acute fracture. Soft tissues: Unremarkable. IMPRESSION: Negative CT angiogram chest. No pulmonary embolism. PROCEDURE INFORMATION: Exam: CT Abdomen And Pelvis With Contrast Exam date and time: 11/10/2020 3:09 PM Age: 45 years old Clinical indication: Fever; Shortness of breath; Prior surgery; Surgery type: Hyst; Patient HX: Gastric cancer; Additional info: Recent pe, worsening SOB, hematochezia, vaginal bleeding TECHNIQUE: Imaging protocol: Computed tomography of the abdomen and pelvis with contrast. Radiation optimization: All CT scans at this facility use at least one of these dose optimization techniques: automated exposure control; mA and/or kV adjustment per patient size (includes targeted exams where dose is matched to clinical indication); or iterative reconstruction. Contrast material: OMNI 350; Contrast volume: 95 ml; Contrast route: INTRAVENOUS (IV); COMPARISON: CT angio chest PE protcl [id number] 10/17/2020 3:46 PM RADIATION DOSE METRICS: Total DLP (mGy-cm): 1909.33 FINDINGS: Liver: Subcentimeter circumscribed low-attenuation lesion in segment 6 of the liver measures 7-8 mm. Too small to further characterize. Capsular surface of the liver is mildly nodular. Circumscribed low-attenuation lesion in segment 3 of the liver measures 8-9 mm, also too small to further characterize. Favor benign hepatic cysts. Gallbladder and bile ducts: Common bile duct is mildly prominent without intrahepatic biliary duct dilation. Gallbladder is unremarkable. Pancreas: Normal. No ductal dilation. Spleen: Mild splenomegaly. Adrenal glands: Normal. No mass. Kidneys and ureters: No renal stones. Small simple right kidney posterior upper pole cortical cyst measuring 18 mm. No dedicated follow-up recommended. No hydronephrosis. Stomach and bowel: No active gastrointestinal bleeding is identified. Moderate fecal volume. No focal bowel wall mass or focal bowel inflammatory change. Negative for bowel obstruction. Appendix: No evidence of appendicitis. Intraperitoneal space: Unremarkable. No free air. No significant fluid collection. Vasculature: There is early cavernous transformation changes in the main portal vein with diminutive caliber. The splenic vein is dilated. There is a large left-sided splenorenal shunt. Lymph nodes: Unremarkable. No enlarged lymph nodes. Urinary bladder: Unremarkable as visualized. Reproductive: Hysterectomy. Bones/joints: Unremarkable. No acute fracture. Soft tissues: Unremarkable. CT/CT angio chest w abd pel w con IMPRESSION: 1. Negative for acute abdominopelvic pathology. 2. Cirrhotic morphology changes of the liver are suspected. 3. Diminutive caliber of main portal vein with possibly early cavernous transformation changes. Large, dilated tortuous splenorenal shunt noted. Cluster of large varices are noted in the left lower abdomen. COMMENTS: Consistent with the [employer]'s Incidental Findings Committee white paper (J Am Diego Radiol 2018): Any incidental renal lesion less than 1 cm or classified as too small to characterize, or any incidental cystic renal lesion characterized as simple-appearing, is likely benign. No follow-up imaging is recommended for these lesions per consensus recommendations based on imaging criteria. Radiation Dose CTDIVOL = (mGy): DLP = 1909.33~1909.33 (mGy-cm) Dictated By:Jessenia Gray By:Jessenia Gray Date/Time:11/10/201834DD/ 32 CXR: Attestation: I personally reviewed and interpreted this imaging study as follows: Radiologist's impression: [place] [address] [address]RLmg ReportSigned Patient: Karlos Foreman #: [id number]: 1975Acct#:[id number]/Sex: 45 / FADM Date: 11/10/20Loc: ERRoom/Bed:Attending Dr: Ordering Provider/Ordering MD: Sulma Horowitz Date of Service: 11/10/20 Procedure(s): XR chest 1V portable [id number] Accession Number(s): [id number] Report Number: [id number] WS: [id number] Exam: XR chest 1V portable [id number] Date/Time of Exam: 11/10/2020 2:18 PM Reason For Exam: SOB Comparison 11/08/2020. There are mild groundglass infiltrates in the bilateral lung bases suggesting pneumonia. Mild groundglass infiltrate also seen in the lateral aspect of the right midlung. Heart size is normal. Pulmonary vascularity slightly increased. No pleural effusion or pneumothorax. XR/XR chest 1V portable [id number] IMPRESSION: 1. Bilateral pulmonary infiltrates which have increased since the prior study. Findings suggest pneumonia. Covid pneumonia might be considered. Dictated By:Singhigned By:Priscila Rasmussen Date/Time:11/10/20 1510DD/ 1508 Discharge Plan Discharge Patient Disposition: Home Clinical Impression: Bloody stools Condition: Stable Prescriptions: Continued Xifaxan 550 mg tablet 550 mg PO BID RF: 0 levothyroxine 50 mcg tablet 50 mcg PO QAM Qty: 30 RF: 0 gabapentin 100 mg capsule 100 mg PO BID RF: 0 Narcan 4 mg/actuation spray,non-aerosol See Rx Instructions .ROUTE .COMPLEX RF: 0 Lantus U-100 Insulin 100 unit/mL solution 30 unit SUBCUT BEDTIME RF: 0 tizanidine 4 mg tablet 4 mg PO Q6H PRN (Reason: Muscle Spasm) RF: 0 sumatriptan succinate [Imitrex] 50 mg Tablet 50 mg PO Q2H MDD 2 tabs PRN (Reason: Migraine Headache) RF: 0 spironolactone 25 mg tablet 25 mg PO QAM RF: 0 potassium chloride 20 mEq tablet,ER particles/crystals 20 meq PO QAM RF: 0 amitriptyline 25 mg tablet 25 mg PO BEDTIME RF: 0 promethazine 25 mg tablet 25 mg PO TID PRN (Reason: Nausea) RF: 0 levetiracetam 750 mg tablet 750 mg PO BID RF: 0 lactulose 10 gram/15 mL solution 90 ml PO TID RF: 0 pantoprazole 40 mg tablet,delayed release (DR/EC) 40 - 80 mg PO DAILY PRN (Reason: Acid Reflux) RF: 0 albuterol sulfate 90 mcg/actuation HFA aerosol inhaler 1 inh inhalation Q6H PRN (Reason: shortness of breath or wheezing) Qty: 8.5 RF: 0 aspirin 81 mg Tablet,Delayed Release (Dr/Ec) 81 mg PO DAILY RF: 0 nicotine 14 mg/24 hr patch 24 hour 1 patch transdermal DAILY RF: 0 hydromorphone 2 mg tablet 2 mg PO Q6H MDD 4 TABS PRN (Reason: Pain) RF: 0 oxycodone 5 mg tablet 5 mg PO Q12H PRN (Reason: Pain) RF: 0 furosemide 40 mg tablet 40 mg PO QAM RF: 0 fluticasone propion-salmeterol [Advair Diskus] 250-50 mcg/dose blister with device 1 inh inhalation BID RF: 0 tenofovir disoproxil fumarate 300 mg tablet 300 mg PO QAM RF: 0 Eliquis DVT-PE Treat 30D Start 5 mg (74 tabs) tablets,dose pack See Rx Instructions .ROUTE .COMPLEX RF: 0 Discharge Orders: Discharge ED (Routine); Ordered 11/10/20 Ordered By: Ariadna Dyson Referrals: Francisco Mckinley DO [Primary Care Provider] - 1-3 days Discharge Diet: Usual diet Discharge Activity: Increase activity as tolerated Patient Instructions: Rectal Bleeding (ED) Activity Restrictions/Additional Instructions: Return for any new or worsening symptoms. Follow-up with your primary care provider within 3 days. Continue your home medications. Coding Level of Care Code ED [employer] for 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
[2020-11-10 16:59] VITALS: BP 152/103; PULSE 88; RESP 18; O2SAT 98
[2020-11-10 17:22] LABS: INR 1.13 (0.8-1.2)
[2020-11-10 17:23] LABS: Partial Thromboplastin Time 36.9 SECONDS (23.9-36.7)
[2020-11-10 17:29] LABS: Alanine Aminotransferase 35 U/L (0-33); Albumin Level 3.3 g/dL (3.5-5.2); Alkaline Phosphatase 99 IU/L (35-105); Anion Gap 11.1 (5-19); Aspartate Amino Transferase 57 U/L (0-32); Blood Urea Nitrogen 8 mg/dL (6-20); Calcium 8.3 mg/dL (8.5-10.5); Carbon Dioxide 29 mmol/L (22-29); Chloride 102 mmol/L (98-107); Globulin 4.1 g/dL (1.3-4.6); Glomerular Filtration Rate 132.8 mL/min (90-130); Glucose 122 mg/dL (65-115); Osmolality Calculated 288 mOsm/kg (285-295); Potassium 3.1 mmol/L (3.5-5.1); Sodium 139 mmol/L (136-145); Total Bilirubin 0.7 mg/dL (0.15-1.2); Total Protein 7.4 g/dL (6.6-8.7)
[2020-11-10 17:30] LABS: Ammonia 79 umol/L (11-51)
[2020-11-10 17:41] LABS: SARS Covid-2 Antigen Negative (Negative)
[2020-11-10 17:42] LABS: Basophils % 0.4 %; Eosinophils # 0.2 10^3/uL (0.0-0.8); Eosinophils % 1.9 %; Hematocrit 38.9 % (37.0-47.0); Hemoglobin 12.6 g/dL (11.5-15.3); Lymphocytes # 1.7 10^3/uL (0.8-4.8); Lymphocytes % 18.6 %; Mean Corpuscular HGB Conc 32.4 g/dL (30.0-36.0); Mean Corpuscular Hemoglobin 30.5 pg (28.0-34.0); Mean Corpuscular Volume 94.2 fl (81-99); Mean Platelet Volume 11.1 fL (7.4-10.4); Monocytes # 1.7 10^3/uL (0.2-0.9); Monocytes % 19.2 %; Neutrophils # 5.39 10^3/uL (1.8-7.7); Neutrophils % 59.5 %; Nucleated Red Blood Cells % 0 %; Platelet Count 100 10^3/cmm (130-400); Positive C 1; Red Blood Count 4.13 10^6/uL (4.1-5.3); Red Cell Distribution Width 13.4 % (12.1-15.1); White Blood Count 9.1 10^3/uL (4.0-10.0)
[2020-11-10 17:44] LABS: Positive M 1
[2020-11-10] MEDS: iohexol 350 mg/mL 100 mL Btl IV (17:56)
[2020-11-10] MEDS: HYDROmorphone 1 mg/mL INJ 1 mL IVP (18:24)
== END 2020-11-10 19:48 | disposition home or self-care (01) ==
PROVIDERS: Physician Assistant; Emergency Provider Family Medicine; PCP Family Medicine
DX: K92.1 Melena (principal); E11.9 Type 2 diabetes mellitus without complications; I10 Essential (primary) hypertension; K74.60 Unspecified cirrhosis of liver; F17.210 Nicotine dependence, cigarettes, uncomplicated; Z79.01 Long term (current) use of anticoagulants; Z86.711 Personal history of pulmonary embolism
CPT/HCPCS: 71045; 71275; 74177; 80053; 82140; 85025; 85610; 85730; 87426; 96374; 99283; J1170; Q9967

== ENCOUNTER 2020-12-05 18:27 | Emergency (ER) | payer MEDICAID, SELFPAY ==
[2020-12-05 18:33] VITALS: BP 143/92; PULSE 0; PULSE 84; RESP 18; TEMP 36.6; O2SAT 99; BMI 37.3
--- NOTE | 2020-12-05 18:36 | W.ED.EXTPRO ---
HPI - Extremity Problem General: Chief complaint: Extremity Problem,Nontraumatic Stated complaint: BLE SWELLING AND WEEPING Time Seen by Provider: 12/05/20 18:29 Source: patient and EMS Mode of arrival: EMS Limitations: no limitations History of Present Illness: HPI Narrative: 45-year-old female has a history of edema in her lower extremities does take Lasix daily. She states the swelling is worse and states she had low-grade fevers and was concerned about possible infection started having some weeping. Denies any chest pain or shortness of breath. Denies any worsening or improving factors. Associated symptoms: Deny chest pain, fever(s) or rash Review of Systems Const: Denies: fever(s), chills, body aches or change in appetite Eyes: Denies: blurry vision or eye discomfort ENMT: Denies: throat pain or dental pain Card: Denies: chest pain Resp: Denies: dyspnea GI: Denies: abdominal pain, nausea, vomiting or diarrhea : Denies: dysuria Musc: Reports: extremity swelling Skin/Breast: Denies: rash Neuro: Denies: headache(s) Psych: Denies: depression Robel/Lymph: Denies: easy bruising All/Imm: Denies: urticaria PFSH ED PFSH: Medical History Chronic abdominal pain Chronic hepatitis B Chronic hip pain Cirrhosis Diabetes mellitus Encephalopathy Gastroesophageal reflux GI bleeding Hypertension Leg cramps Pelvic inflammatory disease Stomach cancer Surgical History H/O tubal ligation History of hysterectomy History of laparotomy Family History Mother Diabetes Father CAD (coronary artery disease) Other Cancer Social History Smoking and tobacco status: current every day smoker cigarettes Packs smoked per day: 2 Years cigarettes smoked: 26 [ Other cigarette details: currently trying to quit, smoking 7 cigarettes/day ] Alcohol intake: never Physical Exam Const: COMMON NORMALS: no acute distress, patient oriented x3 and healthy appearing HENMT: COMMON NORMALS: normocephalic and atraumatic HEAD & SCALP: normocephalic and atraumatic Eye: COMMON NORMALS: Equal, round and reactive pupils present and EOMs intact bilaterally PUPIL: Yes Equal, round and reactive pupils present Neck/C-Spine: COMMON NORMALS: full ROM and supple Chest: COMMONS NORMALS: normal inspection of the chest and normal palpation of entire chest wall Resp: COMMON NORMALS: normal respiratory effort, No retractions, No use of accessory muscles and clear to auscultation bilaterally AUSCULTATION: clear to auscultation bilaterally Cardio: COMMON NORMALS: regular rate, regular rhythm and No murmurs present (Cardio) RATE: regular rate RHYTHM: regular rhythm GI: COMMON NORMALS: Normal to inspection, nondistended, normoactive bowel sounds present, Soft to palpation, non-tender and no masses PALPATION: Yes Soft to palpation Extremity: COMMON NORMALS: full ROM NARRATIVE EXTREMITY EXAM: 2+ edema to ble with no signs of cellulitis Neuro: COMMON NORMALS: patient oriented x3, moves all extremities and no focal motor deficits Psych: COMMON NORMALS: mental status grossly normal, Normal thought process present and cooperative THOUGHT PROCESS: Normal thought process present Skin: COMMON NORMALS: no rashes or lesions noted and no wounds GENERAL SKIN EXAM: no rashes or lesions noted Course Vital Signs: Vital signs: Vital Signs Temperature 98.8 F 12/05/20 19:30 Pulse Rate 72 12/05/20 20:38 Respiratory Rate 20 H 12/05/20 20:38 Blood Pressure 161/92 12/05/20 20:38 Pulse Oximetry 97 12/05/20 20:38 MDM - Extremity (Nontraumatic) MDM Narrative: Medical decision making narrative: Patient presents with lower extremity edema. She has no signs of cellulitis. Patient given IV Lasix she is to continue her Lasix at home. She has no signs of heart failure. She is follow-up with PCP and return if worsening. Lab Data: Labs: Lab Results 12/05/20 12/05/20 Range/Units 19:15 19:15 WBC 7.6 (4.0-10.0) 10^3/ uL RBC 4.01 L (4.1-5.3) 10^6/u L Hgb 12.3 (11.5-15.3) g/dL Hct 37.6 (37.0-47.0) % MCV 93.8 (81-99) fl MCH 30.7 (28.0-34.0) pg MCHC 32.7 (30.0-36.0) g/dL RDW 12.9 (12.1-15.1) % Plt Count 135 (130-400) 10^3/c mm MPV 10.7 H (7.4-10.4) fL Neut % (Auto) 68.2 % Lymph % (Auto) 17.3 % [place] % (Auto) 12.4 % Eos % (Auto) 1.4 % Baso % (Auto) 0.3 % Neut # (Auto) 5.19 (1.8-7.7) 10^3/u L Lymph # (Auto) 1.3 (0.8-4.8) 10^3/u L [place] # (Auto) 0.9 (0.2-0.9) 10^3/u L Eos # (Auto) 0.1 (0.0-0.8) 10^3/u L Baso # (Auto) 0.0 (0.0-0.1) 10^3/u L Nucleated RBC % (a uto) 0 % Nucleated RBCs # 0.0 /100WBC Sodium 139 (136-145) mmol/L Potassium 3.7 (3.5-5.1) mmol/L Chloride 106 (98-107) mmol/L Carbon Dioxide 25 (22-29) mmol/L Anion Gap 11.7 (5-19) BUN 7 (6-20) mg/dL Creatinine 0.4 L (0.5-0.9) mg/dL GFR Calculation 171.8 H (90-130) mL/min Glucose 102 (65-115) mg/dL Calculated Osmolal ity 286 (285-295) mOsm/k g Calcium 8.6 (8.5-10.5) mg/dL Total Bilirubin 0.8 (0.15-1.2) mg/dL AST 23 (0-32) U/L ALT 12 (0-33) U/L Alkaline Phosphata se 94 (35-105) IU/L NT-Pro-B Natriuret Pep 208 H (0-125) pg/mL Total Protein 6.8 (6.6-8.7) g/dL Albumin 2.8 L (3.5-5.2) g/dL Globulin 4.0 (1.3-4.6) g/dL Discharge Plan Discharge Patient Disposition: Home Clinical Impression: Lower extremity edema Condition: Stable Prescriptions: No Action Xifaxan 550 mg tablet 550 mg PO BID RF: 0 Bevespi Aerosphere 9-4.8 mcg HFA aerosol inhaler 2 puff inhalation BID Qty: 10.7 RF: 3 nicotine 21-14-7 mg/24 hr patch, TD daily, sequential See Rx Instructions transdermal .COMPLEX Qty: 56 RF: 0 levothyroxine 50 mcg tablet 50 mcg PO QAM Qty: 30 RF: 0 gabapentin 100 mg capsule 100 mg PO BID RF: 0 Narcan 4 mg/actuation spray,non-aerosol See Rx Instructions .ROUTE .COMPLEX RF: 0 Lantus U-100 Insulin 100 unit/mL solution 30 unit SUBCUT BEDTIME RF: 0 tizanidine 4 mg tablet 4 mg PO Q6H PRN (Reason: Muscle Spasm) RF: 0 sumatriptan succinate [Imitrex] 50 mg Tablet 50 mg PO Q2H MDD 2 tabs PRN (Reason: Migraine Headache) RF: 0 spironolactone 25 mg tablet 25 mg PO QAM RF: 0 potassium chloride 20 mEq tablet,ER particles/crystals 20 meq PO QAM RF: 0 amitriptyline 25 mg tablet 25 mg PO BEDTIME RF: 0 promethazine 25 mg tablet 25 mg PO TID PRN (Reason: Nausea) RF: 0 levetiracetam 750 mg tablet 750 mg PO BID RF: 0 lactulose 10 gram/15 mL solution 90 ml PO TID RF: 0 pantoprazole 40 mg tablet,delayed release (DR/EC) 40 - 80 mg PO DAILY PRN (Reason: Acid Reflux) RF: 0 albuterol sulfate 90 mcg/actuation HFA aerosol inhaler 1 inh inhalation Q6H PRN (Reason: shortness of breath or wheezing) Qty: 8.5 RF: 0 aspirin 81 mg Tablet,Delayed Release (Dr/Ec) 81 mg PO DAILY RF: 0 nicotine 14 mg/24 hr patch 24 hour 1 patch transdermal DAILY RF: 0 hydromorphone 2 mg tablet 2 mg PO Q6H MDD 4 TABS PRN (Reason: Pain) RF: 0 oxycodone 5 mg tablet 5 mg PO Q12H PRN (Reason: Pain) RF: 0 furosemide 40 mg tablet 40 mg PO QAM RF: 0 tenofovir disoproxil fumarate 300 mg tablet 300 mg PO QAM RF: 0 Eliquis DVT-PE Treat 30D Start 5 mg (74 tabs) tablets,dose pack See Rx Instructions .ROUTE .COMPLEX RF: 0 Discharge Orders: Discharge ED (Routine); Ordered 12/05/20 Ordered By: Brandon Jerez Referrals: Francisco Mckinley DO [Primary Care Provider] - 1-3 days Discharge Diet: Advance as tolerated Discharge Activity: Resume usual activity Patient Instructions: Leg Edema (ED) Coding Level of Care Code ED [employer]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
[2020-12-05 19:30] VITALS: BP 164/105; PULSE 85; RESP 20; TEMP 37.1; O2SAT 96
[2020-12-05] MEDS: FUROsemide 10 mg/mL SDV 10mL 80 MG IVP (19:38)
[2020-12-05] MEDS: ondansetron 2 mg/ML SDV 2 mL 4 MG IVP (19:38)
[2020-12-05 19:39] VITALS: RESP 22
[2020-12-05] MEDS: morphine 4 mg/mL SDV 1 mL IVP (19:39)
[2020-12-05 19:44] LABS: Basophils % 0.3 %; Eosinophils # 0.1 10^3/uL (0.0-0.8); Eosinophils % 1.4 %; Hematocrit 37.6 % (37.0-47.0); Hemoglobin 12.3 g/dL (11.5-15.3); Lymphocytes # 1.3 10^3/uL (0.8-4.8); Lymphocytes % 17.3 %; Mean Corpuscular HGB Conc 32.7 g/dL (30.0-36.0); Mean Corpuscular Hemoglobin 30.7 pg (28.0-34.0); Mean Corpuscular Volume 93.8 fl (81-99); Mean Platelet Volume 10.7 fL (7.4-10.4); Monocytes # 0.9 10^3/uL (0.2-0.9); Monocytes % 12.4 %; Neutrophils # 5.19 10^3/uL (1.8-7.7); Neutrophils % 68.2 %; Nucleated Red Blood Cells % 0 %; Platelet Count 135 10^3/cmm (130-400); Red Blood Count 4.01 10^6/uL (4.1-5.3); Red Cell Distribution Width 12.9 % (12.1-15.1); White Blood Count 7.6 10^3/uL (4.0-10.0)
[2020-12-05 20:09] LABS: Alanine Aminotransferase 12 U/L (0-33); Albumin Level 2.8 g/dL (3.5-5.2); Alkaline Phosphatase 94 IU/L (35-105); Anion Gap 11.7 (5-19); Aspartate Amino Transferase 23 U/L (0-32); Blood Urea Nitrogen 7 mg/dL (6-20); Calcium 8.6 mg/dL (8.5-10.5); Carbon Dioxide 25 mmol/L (22-29); Chloride 106 mmol/L (98-107); Glomerular Filtration Rate 171.8 mL/min (90-130); Glucose 102 mg/dL (65-115); NT Pro B Type Natriuretic Pept 208 pg/mL (0-125); Osmolality Calculated 286 mOsm/kg (285-295); Potassium 3.7 mmol/L (3.5-5.1); Sodium 139 mmol/L (136-145); Total Bilirubin 0.8 mg/dL (0.15-1.2); Total Protein 6.8 g/dL (6.6-8.7)
[2020-12-05 20:38] VITALS: BP 161/92; PULSE 72; RESP 20; O2SAT 97
== END 2020-12-05 20:30 | disposition home or self-care (01) ==
PROVIDERS: Emergency Provider Emergency Medicine; PCP Family Medicine
DX: R60.0 Localized edema (principal); Z79.82 Long term (current) use of aspirin; Z79.01 Long term (current) use of anticoagulants; Z79.4 Long term (current) use of insulin; Z86.19 Personal history of other infectious and parasitic diseases; E11.9 Type 2 diabetes mellitus without complications; I10 Essential (primary) hypertension; Z85.028 Personal history of other malignant neoplasm of stomach; F17.210 Nicotine dependence, cigarettes, uncomplicated
CPT/HCPCS: 80053; 83880; 85025; 96374; 96375; 99284; J1940; J2270; J2405

== ENCOUNTER 2021-02-19 02:32 | Emergency (ER) | payer MEDICAID, SELFPAY ==
[2021-02-19 02:36] VITALS: BP 139/86; PULSE 75; RESP 18; TEMP 36.6; O2SAT 98; BMI 42.9
--- NOTE | 2021-02-19 02:58 | XRR_ITS ---
PROCEDURE INFORMATION: Exam: XR Chest Exam date and time: 02/19/2021 2:58 AM Age: 45 years old Clinical indication: Patient HX: AMS. Possible drug overdose. Patient is awake but very lethargic. Non-sensical verbalization. TECHNIQUE: Imaging protocol: XR of the chest. Views: 1 view. Total images: 1 COMPARISON: No relevant prior studies available. FINDINGS: Lungs: Unremarkable. No consolidation. Pleural spaces: Unremarkable. No pleural effusion. No pneumothorax. Heart/Mediastinum: Unremarkable. No cardiomegaly. Bones/joints: Unremarkable. XR/XR chest 1V portable [id number] IMPRESSION: No acute findings. Radiation Dose CTDIVOL = (mGy): DLP = (mGy-cm)
--- NOTE | 2021-02-19 02:58 | CTR_ITS ---
PROCEDURE INFORMATION: Exam: CT Head Without Contrast Exam date and time: 02/19/2021 2:58 AM Age: 45 years old Clinical indication: Altered mental status/memory loss; Patient HX: AMS. Possible drug overdose. Patient is awake but very lethargic. Non-sensical verbalization. TECHNIQUE: Imaging protocol: Computed tomography of the head without contrast. Total images: 221 Radiation optimization: All CT scans at this facility use at least one of these dose optimization techniques: automated exposure control; mA and/or kV adjustment per patient size (includes targeted exams where dose is matched to clinical indication); or iterative reconstruction. COMPARISON: No relevant prior studies available. RADIATION DOSE METRICS: Total DLP (mGy-cm): 859.54 FINDINGS: Brain: Normal. No hemorrhage. Unremarkable white matter. No mass effect. Cerebral ventricles: No ventriculomegaly. Paranasal sinuses: Visualized sinuses are unremarkable. No fluid levels. Mastoid air cells: Visualized mastoid air cells are well aerated. Bones/joints: Unremarkable. No acute fracture. Soft tissues: Unremarkable. CT/CT head wo con* [id number] IMPRESSION: No acute intracranial abnormality. Radiation Dose CTDIVOL = (mGy): DLP = 859.54 (mGy-cm)
--- NOTE | 2021-02-19 03:01 | ECG_ITS ---
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 [id number]
[2021-02-19 03:19] LABS: Basophils % 0.6 %; Eosinophils # 0.1 10^3/uL (0.0-0.8); Eosinophils % 2.2 %; Hematocrit 38.2 % (37.0-47.0); Hemoglobin 12.6 g/dL (11.5-15.3); Lymphocytes # 1.5 10^3/uL (0.8-4.8); Lymphocytes % 23.9 %; Mean Corpuscular Hemoglobin 30.3 pg (28.0-34.0); Mean Corpuscular Volume 91.8 fl (81-99); Monocytes # 0.6 10^3/uL (0.2-0.9); Monocytes % 9.9 %; Neutrophils % 63.1 %; Nucleated Red Blood Cells % 0 %; Platelet Count 146 10^3/cmm (130-400); Red Blood Count 4.16 10^6/uL (4.1-5.3); Red Cell Distribution Width 13.8 % (12.1-15.1); White Blood Count 6.4 10^3/uL (4.0-10.0)
[2021-02-19 03:32] LABS: INR 1.22 (0.8-1.2); Partial Thromboplastin Time 31.3 SECONDS (23.9-36.7)
[2021-02-19 03:38] LABS: Troponin(5th) Baseline 17 ng/L (0-10)
[2021-02-19 03:39] LABS: Ammonia 92 umol/L (11-51)
[2021-02-19 03:40] LABS: Alanine Aminotransferase 22 U/L (0-33); Albumin Level 3.4 g/dL (3.5-5.2); Alkaline Phosphatase 99 IU/L (35-105); Aspartate Amino Transferase 51 U/L (0-32); Blood Urea Nitrogen 7 mg/dL (6-20); C Reactive Protein 9.8 mg/L (0.0-4.9); Carbon Dioxide 21 mmol/L (22-29); Chloride 102 mmol/L (98-107); Glomerular Filtration Rate 132.8 mL/min (90-130); Glucose 132 mg/dL (65-115); Magnesium 1.4 mg/dL (1.7-2.3); Osmolality Calculated 284 mOsm/kg (285-295); Phosphorus 3.5 mg/dL (2.5-4.5); Sodium 137 mmol/L (136-145); Total Bilirubin 0.9 mg/dL (0.15-1.2); Total Protein 6.4 g/dL (6.6-8.7)
[2021-02-19 03:41] LABS: Lactate (Lactic Acid level) 1.1 mmol/L (0.5-2.2)
--- NOTE | 2021-02-19 03:42 | ED_ITS ---
Documented by User: Federico Mitchell DO 02/19/21 18:17 HPI - Altered Mental Status General: Chief Complaint: Altered Mental Status Stated Complaint: Possible Overdose Time Seen by Provider: 02/19/21 02:53 History of Present Illness: HPI narrative: 45-year-old female found by a family member in the floor at home. She has multiple medical problems, and by history at least may have substance abuse problems as well. Unknown whether this is intentional. The patient says words, but is not making much sense. MD complaint: altered mental status Onset (ago): unknown Timing confirmed by: family member Severity: moderate Consistency of symptoms: Constant Context: alcohol abuse, drug abuse and diabetes Associated symptoms: Reports no associated symptoms Review of Systems General: Reports: ROS unobtainable due to mental status Physical Exam Const: EXAM LIMITATIONS: altered mental status GENERAL APPEARANCE: disheveled, lethargic and ill appearing ORIENTATION/CONSCIOUSNESS: Yes oriented to person and Yes lethargic; not oriented to place and not oriented to time HENMT: COMMON NORMALS: atraumatic and Normal external nose present HEAD & SCALP: atraumatic FACE & SINUS: normal facial exam NOSE: Normal external nose present and Normal nares present Eye: COMMON NORMALS: Equal, round and reactive pupils present and EOMs intact bilaterally PUPIL: Yes Equal, round and reactive pupils present Chest: COMMONS NORMALS: normal inspection of the chest Resp: COMMON NORMALS: normal respiratory effort, No use of accessory muscles and clear to auscultation bilaterally AUSCULTATION: clear to auscultation bilaterally Cardio: COMMON NORMALS: regular rate and regular rhythm RATE: regular rate RHYTHM: regular rhythm GI: COMMON NORMALS: Normal to inspection, nondistended, normoactive bowel sounds present and Soft to palpation PALPATION: Yes Soft to palpation Neuro: PETRA COMA SCALE: document GCS findings Petra coma scale eye opening: To sound Petra coma scale verbal response: Words Petra coma scale motor response: Localising Hubbard coma scale total score: 11 SENSORIUM/ORIENTATION: Yes oriented to person, No oriented to place, No oriented to time and Yes lethargic Course Vital Signs: Vital signs: Vital Signs Temperature 97.8 F 02/19/21 02:36 Pulse Rate 85 02/19/21 08:04 Respiratory Rate 18 02/19/21 08:04 Blood Pressure 139/86 02/19/21 06:06 Pulse Oximetry 98 02/19/21 08:04 MDM - Altered Mental Status MDM Narrative: Medical decision making narrative: Patient has hypokalemia. This has been repleted. CT of the head and x-ray of the chest are both not remarkable. First troponin is minimally elevated. EKG showed a sinus rhythm with a rate of 70 normal axis minimally prolonged QTC, and no ST change. Awaiting a second troponin. If on the rise, and significant delta will observe. If stable, and the patient returns to baseline, which she is beginning to improve, she will be allowed home. Obvious suggestion of decreasing her eliminating opioid pain medication usage along with discontinuation of methamphetamine. She will be checked out to Dr. Lao, to redetermine mental status that she comes out of her stupor, and wait on the second troponin. Lab Data: Labs: Lab Results 02/19/21 02/19/21 02/19/21 03:12 03:12 03:12 WBC 6.4 10^3/uL 10^3/ uL (4.0-10.0) RBC 4.16 10^6/uL 10^6 /uL (4.1-5.3) Hgb 12.6 g/dL g/dL (11.5-15.3) Hct 38.2 % % (37.0-47.0) MCV 91.8 fl fl (81-99) MCH 30.3 pg pg (28.0-34.0) MCHC 33.0 g/dL g/dL (30.0-36.0) RDW 13.8 % % (12.1-15.1) Plt Count 146 10^3/cmm 10^3 /cmm (130-400) MPV 11.0 fL H fL (7.4-10.4) Neut % (Auto) 63.1 % % Lymph % (Auto) 23.9 % % [place] % (Auto) 9.9 % % Eos % (Auto) 2.2 % % Baso % (Auto) 0.6 % % Neut # (Auto) 4.00 10^3/uL 10^3 /uL (1.8-7.7) Lymph # (Auto) 1.5 10^3/uL 10^3/ uL (0.8-4.8) [place] # (Auto) 0.6 10^3/uL 10^3/ uL (0.2-0.9) Eos # (Auto) 0.1 10^3/uL 10^3/ uL (0.0-0.8) Baso # (Auto) 0.0 10^3/uL 10^3/ uL (0.0-0.1) Nucleated RBC % (a uto) 0 % % Nucleated RBCs # 0.0 /100WBC /100W BC PT 15.80 SECONDS H S ECONDS (12.1-14.9) INR 1.22 H (0.8-1.2) APTT 31.3 SECONDS SECO NDS (23.9-36.7) Sodium 137 mmol/L mmol/L (136-145) Potassium 3.2 mmol/L L mmol /L (3.5-5.1) Chloride 102 mmol/L mmol/L (98-107) Carbon Dioxide 21 mmol/L L mmol/ L (22-29) Anion Gap 17.2 (5-19) BUN 7 mg/dL mg/dL (6-20) Creatinine 0.5 mg/dL mg/dL (0.5-0.9) GFR Calculation 132.8 mL/min H mL /min (90-130) Glucose 132 mg/dL H mg/dL (65-115) Calculated Osmolal ity 284 mOsm/kg L mOs m/kg (285-295) Lactate Calcium 8.0 mg/dL L mg/dL (8.5-10.5) Phosphorus 3.5 mg/dL mg/dL (2.5-4.5) Magnesium 1.4 mg/dL L mg/dL (1.7-2.3) Total Bilirubin 0.9 mg/dL mg/dL (0.15-1.2) AST 51 U/L H U/L (0-32) ALT 22 U/L U/L (0-33) Alkaline Phosphata se 99 IU/L IU/L (35-105) Ammonia Troponin T Baselin e Troponin T 120 Min [place] Delta Troponin T C-Reactive Protein 9.8 mg/L H mg/L (0.0-4.9) Total Protein 6.4 g/dL L g/dL (6.6-8.7) Albumin 3.4 g/dL L g/dL (3.5-5.2) Globulin 3.0 g/dL g/dL (1.3-4.6) Urine Color Urine Appearance Urine pH Ur Specific Gravit y Urine Protein Urine Glucose (UA) Urine Ketones Urine Blood Urine Nitrate Urine Bilirubin Urine Urobilinogen Ur Leukocyte Imani ase Salicylates < 0.3 mg/dL L mg/ dL (3-10) Urine Opiates Scre en Acetaminophen < 5.0 ug/mL L ug/ mL (10-30) Ur Barbiturates Sc reen Ur Phencyclidine S crn Ur Amphetamines Sc reen U Benzodiazepines Scrn Urine Cocaine Scre en U Marijuana (THC) Screen Ethyl Alcohol < 10 mg/dL mg/dL (0-10) 02/19/21 02/19/21 02/19/21 03:12 03:12 03:12 WBC RBC Hgb Hct MCV MCH MCHC RDW Plt Count MPV Neut % (Auto) Lymph % (Auto) [place] % (Auto) Eos % (Auto) Baso % (Auto) Neut # (Auto) Lymph # (Auto) [place] # (Auto) Eos # (Auto) Baso # (Auto) Nucleated RBC % (a uto) Nucleated RBCs # PT INR APTT Sodium Potassium Chloride Carbon Dioxide Anion Gap BUN Creatinine GFR Calculation Glucose Calculated Osmolal ity Lactate 1.1 mmol/L mmol/L (0.5-2.2) Calcium Phosphorus Magnesium Total Bilirubin AST ALT Alkaline Phosphata se Ammonia 92 umol/L H umol/ L (11-51) Troponin T Baselin e 17 ng/L H ng/L (0-10) Troponin T 120 Min [place] Troponin T C-Reactive Protein Total Protein Albumin Globulin Urine Color Urine Appearance Urine pH Ur Specific Gravit y Urine Protein Urine Glucose (UA) Urine Ketones Urine Blood Urine Nitrate Urine Bilirubin Urine Urobilinogen Ur Leukocyte Iman[place] ase Salicylates Urine Opiates Scre en Acetaminophen Ur Barbiturates Sc reen Ur Phencyclidine S crn Ur Amphetamines Sc reen U Benzodiazepines Scrn Urine Cocaine Scre en U Marijuana (THC) Screen Ethyl Alcohol 02/19/21 02/19/21 02/19/21 04:11 04:11 06:00 WBC RBC Hgb Hct MCV MCH MCHC RDW Plt Count MPV Neut % (Auto) Lymph % (Auto) [place] % (Auto) Eos % (Auto) Baso % (Auto) Neut # (Auto) Lymph # (Auto) [place] # (Auto) Eos # (Auto) Baso # (Auto) Nucleated RBC % (a uto) Nucleated RBCs # PT INR APTT Sodium Potassium Chloride Carbon Dioxide Anion Gap BUN Creatinine GFR Calculation Glucose Calculated Osmolal ity Lactate Calcium Phosphorus Magnesium Total Bilirubin AST ALT Alkaline Phosphata se Ammonia Troponin T Baselin e Troponin T 120 Min [place] 17.84 ng/L H ng/L (0-10) Delta Troponin T 0.84 ABS# ABS# (0-10) C-Reactive Protein Total Protein Albumin Globulin Urine Color Yellow (Yellow) Urine Appearance Clear (CLEAR) Urine pH 6.5 (5-7) Ur Specific Gravit y 1.015 (1.005-1.030) Urine Protein Neg (Negative) Urine Glucose (UA) Norm (Normal) Urine Ketones 1+ H (Negative) Urine Blood Neg (Negative) Urine Nitrate Negative (Negative) Urine Bilirubin Neg (Negative) Urine Urobilinogen 4 mg/dL H mg/dL (Negative) Ur Leukocyte Imani ase Negative (Negative) Salicylates Urine Opiates Scre en Positive ng/mL H ng/mL (Negative) Acetaminophen Ur Barbiturates Sc reen Negative ng/mL ng /mL (Negative) Ur Phencyclidine S crn Negative ng/mL ng /mL (Negative) Ur Amphetamines Sc reen Positive ng/mL H ng/mL (Negative) U Benzodiazepines Scrn Negative ng/mL ng /mL (Negative) Urine Cocaine Scre en Negative ng/mL ng /mL (Negative) U Marijuana (THC) Screen Negative ng/mL ng /mL (Negative) Ethyl Alcohol Discharge Plan Discharge Patient Disposition: Home Clinical Impression: Polysubstance abuse Altered mental status Qualifiers: 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 Qualified Code(s): R40.3 - Persistent vegetative state Accidental overdose Qualifiers: Encounter type: initial encounter Qualified Code(s): T50.901A - Poisoning by unspecified drugs, medicaments and biological substances, accidental (unintentional), initial encounter Clinical Impression: (Ruled Out): Delirium due to general medical condition Condition: Stable Prescriptions: No Action furosemide 40 mg Tablet 40 mg PO BID RF: 0 lamotrigine 200 mg Tablet 200 mg PO DAILY RF: 0 amitriptyline 50 mg Tablet 50 mg PO DAILY RF: 0 spironolactone 25 mg Tablet 25 mg PO DAILY RF: 0 hydromorphone 2 mg Tablet 4 mg PO Q4H RF: 0 levothyroxine 50 mcg Tablet 50 mcg PO DAILY RF: 0 pantoprazole 40 mg Tablet,Delayed Release (Dr/Ec) 40 mg PO DAILY RF: 0 promethazine 25 mg Tablet 25 mg PO TID PRN (Reason: Nausea) RF: 0 tenofovir disoproxil fumarate 300 mg Tablet 300 mg PO DAILY RF: 0 levetiracetam 750 mg Tablet 750 mg PO BID RF: 0 gabapentin 100 mg Capsule 100 mg PO BID RF: 0 ondansetron 4 mg Tablet,Disintegrating 4 mg PO Q6H PRN (Reason: Nausea) RF: 0 metoclopramide HCl 10 mg Tablet 10 mg PO DAILY RF: 0 Amitiza 24 mcg Capsule 24 mcg PO DAILY RF: 0 Xifaxan 550 mg Tablet 550 mg PO BID RF: 0 Eliquis 5 mg Tablet 5 mg PO DAILY RF: 0 potassium chloride 20 mEq Tablet Extended Release 20 meq PO DAILY RF: 0 Discharge Orders: Discharge ED (Routine); Ordered 02/19/21 Ordered By: Jeremy Lao Discharge Diet: Advance as tolerated Discharge Activity: Resume usual activity Patient Instructions: Altered Mental Status (ED) Activity Restrictions/Additional Instructions: Abstain from methamphetamine use. Limit opioid pain medication use. Consider stopping amitriptyline and gabapentin along with your other medication, as they can add to problems with heart rhythm that can lead to syncope or passing out or even terminal arrhythmias causing . Follow-up with your doctor. Return for worsening mental status, and shortness of breath, chest discomfort, other concerning symptoms. Coding Level of Care Code ED Temporary Office Assistant for Chg 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 Documented by User: Jeremy Lao MD 02/19/21 07:27 HPI - Altered Mental Status General: Chief Complaint: Altered Mental Status Stated Complaint: Possible Overdose Time Seen by Provider: 02/19/21 02:53 Course Vital Signs: Vital signs: Vital Signs Temperature 97.8 F 02/19/21 02:36 Pulse Rate 85 02/19/21 08:04 Respiratory Rate 18 02/19/21 08:04 Blood Pressure 139/86 02/19/21 06:06 Pulse Oximetry 98 02/19/21 08:04 MDM - Altered Mental Status MDM Narrative: Medical decision making narrative: Delta troponin <1. Patient is now more awake and alert x 3. Ambulating without difficulty. S/p Magnesium Oxide for hypomagnesemia. Patient will be discharged with close follow up with PCP Disposition: Discharge. Patient counseled regarding diagnostic impression, treatment plan. Patient given ED strict return precautions to return for cont inuation, worsening, or development of new symptoms. Instructed to f/u w/ PCP regarding symptoms today. Patient verbalized understanding. Lab Data: Labs: Lab Results 02/19/21 02/19/21 02/19/21 03:12 03:12 03:12 WBC 6.4 10^3/uL 10^3/ uL (4.0-10.0) RBC 4.16 10^6/uL 10^6 /uL (4.1-5.3) Hgb 12.6 g/dL g/dL (11.5-15.3) Hct 38.2 % % (37.0-47.0) MCV 91.8 fl fl (81-99) MCH 30.3 pg pg (28.0-34.0) MCHC 33.0 g/dL g/dL (30.0-36.0) RDW 13.8 % % (12.1-15.1) Plt Count 146 10^3/cmm 10^3 /cmm (130-400) MPV 11.0 fL H fL (7.4-10.4) Neut % (Auto) 63.1 % % Lymph % (Auto) 23.9 % % [place] % (Auto) 9.9 % % Eos % (Auto) 2.2 % % Baso % (Auto) 0.6 % % Neut # (Auto) 4.00 10^3/uL 10^3 /uL (1.8-7.7) Lymph # (Auto) 1.5 10^3/uL 10^3/ uL (0.8-4.8) [place] # (Auto) 0.6 10^3/uL 10^3/ uL (0.2-0.9) Eos # (Auto) 0.1 10^3/uL 10^3/ uL (0.0-0.8) Baso # (Auto) 0.0 10^3/uL 10^3/ uL (0.0-0.1) Nucleated RBC % (a uto) 0 % % Nucleated RBCs # 0.0 /100WBC /100W BC PT 15.80 SECONDS H S ECONDS (12.1-14.9) INR 1.22 H (0.8-1.2) APTT 31.3 SECONDS SECO NDS (23.9-36.7) Sodium 137 mmol/L mmol/L (136-145) Potassium 3.2 mmol/L L mmol /L (3.5-5.1) Chloride 102 mmol/L mmol/L (98-107) Carbon Dioxide 21 mmol/L L mmol/ L (22-29) Anion Gap 17.2 (5-19) BUN 7 mg/dL mg/dL (6-20) Creatinine 0.5 mg/dL mg/dL (0.5-0.9) GFR Calculation 132.8 mL/min H mL /min (90-130) Glucose 132 mg/dL H mg/dL (65-115) Calculated Osmolal ity 284 mOsm/kg L mOs m/kg (285-295) Lactate Calcium 8.0 mg/dL L mg/dL (8.5-10.5) Phosphorus 3.5 mg/dL mg/dL (2.5-4.5) Magnesium 1.4 mg/dL L mg/dL (1.7-2.3) Total Bilirubin 0.9 mg/dL mg/dL (0.15-1.2) AST 51 U/L H U/L (0-32) ALT 22 U/L U/L (0-33) Alkaline Phosphata se 99 IU/L IU/L (35-105) Ammonia Troponin T Baselin e Troponin T 120 Min [place] Delta Troponin T C-Reactive Protein 9.8 mg/L H mg/L (0.0-4.9) Total Protein 6.4 g/dL L g/dL (6.6-8.7) Albumin 3.4 g/dL L g/dL (3.5-5.2) Globulin 3.0 g/dL g/dL (1.3-4.6) Urine Color Urine Appearance Urine pH Ur Specific Gravit y Urine Protein Urine Glucose (UA) Urine Ketones Urine Blood Urine Nitrate Urine Bilirubin Urine Urobilinogen Ur Leukocyte Imani ase Salicylates < 0.3 mg/dL L mg/ dL (3-10) Urine Opiates Scre en Acetaminophen < 5.0 ug/mL L ug/ mL (10-30) Ur Barbiturates Sc reen Ur Phencyclidine S crn Ur Amphetamines Sc reen U Benzodiazepines Scrn Urine Cocaine Scre en U Marijuana (THC) Screen Ethyl Alcohol < 10 mg/dL mg/dL (0-10) 02/19/21 02/19/21 02/19/21 03:12 03:12 03:12 WBC RBC Hgb Hct MCV MCH MCHC RDW Plt Count MPV Neut % (Auto) Lymph % (Auto) [place] % (Auto) Eos % (Auto) Baso % (Auto) Neut # (Auto) Lymph # (Auto) [place] # (Auto) Eos # (Auto) Baso # (Auto) Nucleated RBC % (a uto) Nucleated RBCs # PT INR APTT Sodium Potassium Chloride Carbon Dioxide Anion Gap BUN Creatinine GFR Calculation Glucose Calculated Osmolal ity Lactate 1.1 mmol/L mmol/L (0.5-2.2) Calcium Phosphorus Magnesium Total Bilirubin AST ALT Alkaline Phosphata se Ammonia 92 umol/L H umol/ L (11-51) Troponin T Baselin e 17 ng/L H ng/L (0-10) Troponin T 120 Min [place] Troponin T C-Reactive Protein Total Protein Albumin Globulin Urine Color Urine Appearance Urine pH Ur Specific Gravit y Urine Protein Urine Glucose (UA) Urine Ketones Urine Blood Urine Nitrate Urine Bilirubin Urine Urobilinogen Ur Leukocyte [place]man[place] ase Salicylates Urine Opiates Scre en Acetaminophen Ur Barbiturates Sc reen Ur Phencyclidine S crn Ur Amphetamines Sc reen U Benzodiazepines Scrn Urine Cocaine Scre en U Marijuana (THC) Screen Ethyl Alcohol 02/19/21 02/19/21 02/19/21 04:11 04:11 06:00 WBC RBC Hgb Hct MCV MCH MCHC RDW Plt Count MPV Neut % (Auto) Lymph % (Auto) [place] % (Auto) Eos % (Auto) Baso % (Auto) Neut # (Auto) Lymph # (Auto) [place] # (Auto) Eos # (Auto) Baso # (Auto) Nucleated RBC % (a uto) Nucleated RBCs # PT INR APTT Sodium Potassium Chloride Carbon Dioxide Anion Gap BUN Creatinine GFR Calculation Glucose Calculated Osmolal ity Lactate Calcium Phosphorus Magnesium Total Bilirubin AST ALT Alkaline Phosphata se Ammonia Troponin T Baselin e Troponin T 120 Min [place] 17.84 ng/L H ng/L (0-10) Delta Troponin T 0.84 ABS# ABS# (0-10) C-Reactive Protein Total Protein Albumin Globulin Urine Color Yellow (Yellow) Urine Appearance Clear (CLEAR) Urine pH 6.5 (5-7) Ur Specific Gravit y 1.015 (1.005-1.030) Urine Protein Neg (Negative) Urine Glucose (UA) Norm (Normal) Urine Ketones 1+ H (Negative) Urine Blood Neg (Negative) Urine Nitrate Negative (Negative) Urine Bilirubin Neg (Negative) Urine Urobilinogen 4 mg/dL H mg/dL (Negative) Ur Leukocyte Imani ase Negative (Negative) Salicylates Urine Opiates Scre en Positive ng/mL H ng/mL (Negative) Acetaminophen Ur Barbiturates Sc reen Negative ng/mL ng /mL (Negative) Ur Phencyclidine S crn Negative ng/mL ng /mL (Negative) Ur Amphetamines Sc reen Positive ng/mL H ng/mL (Negative) U Benzodiazepines Scrn Negative ng/mL ng /mL (Negative) Urine Cocaine Scre en Negative ng/mL ng /mL (Negative) U Marijuana (THC) Screen Negative ng/mL ng /mL (Negative) Ethyl Alcohol Discharge Plan Discharge Patient Disposition: Home Clinical Impression: Polysubstance abuse Altered mental status Qualifiers: 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 Qualified Code(s): R40.3 - Persistent vegetative state Accidental overdose Qualifiers: Encounter type: initial encounter Qualified Code(s): T50.901A - Poisoning by unspecified drugs, medicaments and biological substances, accidental (unintentional), initial encounter Clinical Impression: (Ruled Out): Delirium due to general medical condition Condition: Stable Prescriptions: No Action furosemide 40 mg Tablet 40 mg PO BID RF: 0 lamotrigine 200 mg Tablet 200 mg PO DAILY RF: 0 amitriptyline 50 mg Tablet 50 mg PO DAILY RF: 0 spironolactone 25 mg Tablet 25 mg PO DAILY RF: 0 hydromorphone 2 mg Tablet 4 mg PO Q4H RF: 0 levothyroxine 50 mcg Tablet 50 mcg PO DAILY RF: 0 pantoprazole 40 mg Tablet,Delayed Release (Dr/Ec) 40 mg PO DAILY RF: 0 promethazine 25 mg Tablet 25 mg PO TID PRN (Reason: Nausea) RF: 0 tenofovir disoproxil fumarate 300 mg Tablet 300 mg PO DAILY RF: 0 levetiracetam 750 mg Tablet 750 mg PO BID RF: 0 gabapentin 100 mg Capsule 100 mg PO BID RF: 0 ondansetron 4 mg Tablet,Disintegrating 4 mg PO Q6H PRN (Reason: Nausea) RF: 0 metoclopramide HCl 10 mg Tablet 10 mg PO DAILY RF: 0 Amitiza 24 mcg Capsule 24 mcg PO DAILY RF: 0 Xifaxan 550 mg Tablet 550 mg PO BID RF: 0 Eliquis 5 mg Tablet 5 mg PO DAILY RF: 0 potassium chloride 20 mEq Tablet Extended Release 20 meq PO DAILY RF: 0 Discharge Orders: Discharge ED (Routine); Ordered 02/19/21 Ordered By: Jeremy Lao Discharge Diet: Advance as tolerated Discharge Activity: Resume usual activity Patient Instructions: Altered Mental Status (ED) Activity Restrictions/Additional Instructions: Abstain from methamphetamine use. Limit opioid pain medication use. Consider stopping amitriptyline and gabapentin along with your other medication, as they can add to problems with heart rhythm that can lead to syncope or passing out or even terminal arrhythmias causing . Follow-up with your doctor. Return for worsening mental status, and shortness of breath, chest discomfort, other concerning symptoms. Coding Level of Care Code ED Temporary Office Assistant for Margarito Fwsharita 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
[2021-02-19 03:55] VITALS: BP 139/86; PULSE 75; RESP 16; O2SAT 96
[2021-02-19] MEDS: sodium chloride 0.9% 1,000 ML 999 ML IV (04:02)
[2021-02-19 04:03] LABS: Acetaminophen < 5.0 ug/mL (10-30); Alcohol Level < 10 mg/dL (0-10); Salicylate < 0.3 mg/dL (3-10)
[2021-02-19 04:04] LABS: Anion Gap 17.2 (5-19); Potassium 3.2 mmol/L (3.5-5.1)
[2021-02-19 04:29] LABS: Add Urine Microscopic? NO; Charge for UA Resulting for Rev
[2021-02-19 04:30] LABS: Bilirubin Urine Neg (Negative); Blood Urine Neg (Negative); Glucose Urine UA Norm (Normal); Ketones Urine 1+ (Negative); Leukocyte Esterase Urine Negative (Negative); Nitrate Urine Negative (Negative); Protein Urine Neg (Negative); Specific Gravity, Urine 1.015 (1.005-1.030); Urine Appearance Clear (CLEAR); Urine Color Yellow (Yellow); Urobilinogen Urine 4 mg/dL (Negative); pH Urine 6.5 (5-7)
[2021-02-19 04:39] LABS: Amphetamines Screen Urine Positive (Negative); Barbiturates Screen Urine Negative (Negative); Benzodiazepines Screen Urine Negative (Negative); Cocaine Screen Urine Negative (Negative); Opiate Screen Urine Positive (Negative); PCP Screen Urine Negative (Negative); THC Screen Urine Negative (Negative)
--- NOTE | 2021-02-19 05:01 | ECG_ITS ---
[facility] Test Date: 2021-02-19 Pat Name: Maribell Castillo Department: Room: Gender: Female Concrete Analyst: : 1975 Requested By: Federico Jarquin Order Number: [id number] Janett MD: Oseas Junior M.D. 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 [id number]
[2021-02-19] MEDS: potassium chloride oral liq 20 mEq/15 mL UDC 40 MEQ PO (06:05)
[2021-02-19 06:06] VITALS: BP 139/86; PULSE 70; RESP 16; O2SAT 97
[2021-02-19 06:28] LABS: Troponin 5 2HR 17.84 ng/L (0-10); Troponin 5 2HR Delta 0.84 ABS# (0-10)
[2021-02-19] MEDS: magnesium oxide 400 mg tablet PO ×2 (07:44)
[2021-02-19 08:04] VITALS: PULSE 85; RESP 18; O2SAT 98
== END 2021-02-19 07:45 | disposition home or self-care (01) ==
PROVIDERS: Emergency Medicine; Emergency Provider Emergency Medicine; PCP Family Medicine
DX: T50.911A Poisoning by multiple unspecified drugs, medicaments and biological substances, accidental (unintentional), initial encounter (principal); F19.10 Other psychoactive substance abuse, uncomplicated; R40.3 Persistent vegetative state; Z79.01 Long term (current) use of anticoagulants
CPT/HCPCS: 70450; 71045; 80053; 80306; 80307; 81003; 82140; 83605; 83735; 84100; 84484; 85025; 85610; 85730; 86140; 93005; 96360; 99284; J7030

== ENCOUNTER 2021-05-04 17:21 | Outpatient (CLI) | payer MEDICAID, SELFPAY ==
[2021-05-04 17:49] LABS: Basophils % 0.6 %; Eosinophils # 0.2 10^3/uL (0.0-0.8); Hematocrit 44.3 % (37.0-47.0); Hemoglobin 14.6 g/dL (11.5-15.3); Lymphocytes % 37.6 %; Mean Corpuscular Hemoglobin 30.9 pg (28.0-34.0); Mean Corpuscular Volume 93.7 fl (81-99); Mean Platelet Volume 10.6 fL (7.4-10.4); Monocytes # 0.8 10^3/uL (0.2-0.9); Monocytes % 14.6 %; Neutrophils # 2.38 10^3/uL (1.8-7.7); Neutrophils % 43.8 %; Nucleated Red Blood Cells % 0 %; Platelet Count 143 10^3/cmm (130-400); Red Blood Count 4.73 10^6/uL (4.1-5.3); Red Cell Distribution Width 14.1 % (12.1-15.1); White Blood Count 5.4 10^3/uL (4.0-10.0)
[2021-05-04 18:30] LABS: Ammonia 221 umol/L (11-51)
[2021-05-04 20:05] LABS: Alanine Aminotransferase 24 U/L (0-33); Albumin Level 3.2 g/dL (3.5-5.2); Alkaline Phosphatase 115 IU/L (35-105); Blood Urea Nitrogen 11 mg/dL (6-20); Carbon Dioxide 19 mmol/L (22-29); Chloride 101 mmol/L (98-107); Globulin 4.7 g/dL (1.3-4.6); Glomerular Filtration Rate 132.8 mL/min (90-130); Glucose 142 mg/dL (65-115); Osmolality Calculated 286 mOsm/kg (285-295); Sodium 137 mmol/L (136-145); Total Bilirubin 0.8 mg/dL (0.15-1.2); Total Protein 7.9 g/dL (6.6-8.7)
[2021-05-04 20:06] LABS: Aspartate Amino Transferase 45 U/L (0-32)
== END 2021-05-04 17:22 | disposition home or self-care (01) ==
LOC: LAB 17:23
PROVIDERS: PCP Family Medicine; Visit Provider Family Medicine
DX: K72.90 Hepatic failure, unspecified without coma (principal); E72.20 Disorder of urea cycle metabolism, unspecified
CPT/HCPCS: 80053; 82140; 85025

== ENCOUNTER 2021-05-24 00:16 | Emergency (ER) | payer MEDICAID, SELFPAY ==
[2021-05-24 00:18] VITALS: RESP 18; TEMP 36.1; BMI 37.8
--- NOTE | 2021-05-24 00:21 | ED_ITS ---
HPI - Nausea/Vomiting/Diarrhea General: Chief complaint: Abdominal Pain Stated complaint: v x4 Time Seen by Provider: 05/24/21 00:17 Source: patient Mode of arrival: ambulatory Limitations: no limitations History of Present Illness: 45-year-old female has a history of cirrhosis along with some chronic abdominal pain states over last 3 to 4 days she is been having pain along with nausea and vomiting. States she been having a hard time tolerating p.o. due to her vomiting. States her pain is diffuse in nature rates it a 6 out of 10 denies any worsening improving factors denies any diarrhea denies any fevers. Associated nausea: Yes Associated symtoms: Reports nausea; Denies chest pain, dysuria or headache(s) Review of Systems Const: Denies: fever(s), chills, body aches or change in appetite Eyes: Denies: blurry vision or eye discomfort ENMT: Denies: throat pain or dental pain Card: Denies: chest pain Resp: Denies: dyspnea GI: Reports: nausea and vomiting : Denies: dysuria Musc: Denies: neck pain or back pain Skin/Breast: Denies: rash Neuro: Denies: headache(s) Psych: Denies: depression [place]/Lymph: Denies: easy bruising All/Imm: Denies: urticaria PFSH ED PFSH: Medical History Chronic abdominal pain Chronic hepatitis B Chronic hip pain Cirrhosis Diabetes mellitus Encephalopathy Gastroesophageal reflux GI bleeding Hypertension Leg cramps Pelvic inflammatory disease Stomach cancer Surgical History H/O tubal ligation History of hysterectomy History of laparotomy Family History Mother Diabetes Father CAD (coronary artery disease) Other Cancer Social History Smoking and tobacco status: current every day smoker cigarettes Packs smoked per day: 2 Years cigarettes smoked: 26 [ Other cigarette details: currently trying to quit, smoking 7 cigarettes/day] Alcohol intake: never Physical Exam Const: COMMON NORMALS: no acute distress, patient oriented x3 and healthy appearing HENMT: COMMON NORMALS: normocephalic and atraumatic HEAD & SCALP: nor mocephalic and atraumatic Eye: COMMON NORMALS: Equal, round and reactive pupils present and EOMs intact bilaterally PUPIL: Yes Equal, round and reactive pupils present Neck/C-Spine: COMMON NORMALS: full ROM and supple Chest: COMMONS NORMALS: normal inspection of the chest and normal palpation of entire chest wall Resp: COMMON NORMALS: normal respiratory effort, No retractions, No use of accessory muscles and clear to auscultation bilaterally AUSCULTATION: clear to auscultation bilaterally Cardio: COMMON NORMALS: regular rate, regular rhythm and No murmurs present (Cardio) RATE: regular rate RHYTHM: regular rhythm GI: COMMON NORMALS: Normal to inspection, nondistended, normoactive bowel sounds present, Soft to palpation, non-tender and no masses PALPATION: Yes Soft to palpation Extremity: COMMON NORMALS: normal to inspection and full ROM Neuro: COMMON NORMALS: patient oriented x3, moves all extremities and no focal motor deficits Psych: COMMON NORMALS: mental status grossly normal, Normal thought process present and cooperative THOUGHT PROCESS: Normal thought process present Skin: COMMON NORMALS: no rashes or lesions noted and no wounds GENERAL SKIN EXAM: no rashes or lesions noted Course Vital Signs: Vital signs: Vital Signs Temperature 96.6 F L 05/24/21 00:23 Pulse Rate 78 05/24/21 00:23 Respiratory Rate 20 H 05/24/21 01:11 Blood Pressure 175/118 05/24/21 00:23 Pulse Oximetry 96 05/24/21 00:23 MDM - Nausea/Vomiting/Diarrhea Medical Decision Making Patient presents here with abdominal pain along with vomiting that is chronic in nature from her cirrhosis she is well-appearing here blood works all normal CT scan no shows no acute abnormality she feels much improved after Reglan will prescribe her Zofran for home she is to follow-up PCP and return if worsening. Lab Data : 05/24/21 00:25 05/24/21 00:25 Radiology Impressions Abdomen/Pelvis CT 05/24/21 01:06 IMPRESSION: 1. Moderate calcified coronary artery disease. 2. Large 19 mm diameter elongated serpiginous varix is part of portosystemic shunt draining the portal system into the left infrarenal gonadal vein which drains into the enlarged left renal vein. 3. 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 4. Cirrhosis with portal hypertension, varices and mild splenomegaly. Laboratory Results WBC 6.0 10^3/uL (4.0-10.0) 05/24/21 00:25 RBC 4.30 10^6/uL (4.1-5.3) 05/24/21 00:25 Hgb 13.2 g/dL (11.5-15.3) 05/24/21 00:25 Hct 39.0 % (37.0-47.0) 05/24/21 00:25 MCV 90.7 fl (81-99) 05/24/21 00:25 MCH 30.7 pg (28.0-34.0) 05/24/21 00:25 MCHC 33.8 g/dL (30.0-36.0) 05/24/21 00:25 RDW 14.0 % (12.1-15.1) 05/24/21 00:25 Plt Count 175 10^3/cmm (130-400) 05/24/21 00:25 MPV 10.3 fL (7.4-10.4) 05/24/21 00:25 Neut % (Auto) 70.6 % 05/24/21 00:25 Lymph % (Auto) 20.3 % 05/24/21 00:25 [place] % (Auto) 7.4 % 05/24/21 00:25 Eos % (Auto) 0.8 % 05/24/21 00:25 Baso % (Auto) 0.7 % 05/24/21 00:25 Neut # (Auto) 4.22 10^3/uL (1.8-7.7) 05/24/21 00:25 Lymph # (Auto) 1.2 10^3/uL (0.8-4.8) 05/24/21 00:25 [place] # (Auto) 0.4 10^3/uL (0.2-0.9) 05/24/21 00:25 Eos # (Auto) 0.1 10^3/uL (0.0-0.8) 05/24/21 00:25 Baso # (Auto) 0.0 10^3/uL (0.0-0.1) 05/24/21 00:25 Nucleated RBC % (auto) 0 % 05/24/21 00:25 Nucleated RBCs # 0.0 /100WBC 05/24/21 00:25 Sodium 139 mmol/L (136-145) 05/24/21 00:25 Potassium 3.3 mmol/L (3.5-5.1) L 05/24/21 00:25 Chloride 102 mmol/L (98-107) 05/24/21 00:25 Carbon Dioxide 23 mmol/L (22-29) 05/24/21 00:25 Anion Gap 17.3 (5-19) 05/24/21 00:25 BUN 6 mg/dL (6-20) 05/24/21 00:25 Creatinine 0.4 mg/dL (0.5-0.9) L 05/24/21 00:25 GFR Calculation 171.8 mL/min (90-130) H 05/24/21 00:25 Glucose 115 mg/dL (65-115) 05/24/21 00:25 Calculated Osmolality 287 mOsm/kg (285-295) 05/24/21 00:25 Calcium 9.5 mg/dL (8.5-10.5) 05/24/21 00:25 Total Bilirubin 1.0 mg/dL (0.15-1.2) 05/24/21 00:25 AST 43 U/L (0-32) H 05/24/21 00:25 ALT 24 U/L (0-33) 05/24/21 00:25 Alkaline Phosphatase 120 IU/L (35-105) H 05/24/21 00:25 Total Protein 8.0 g/dL (6.6-8.7) 05/24/21 00:25 Albumin 3.9 g/dL (3.5-5.2) 05/24/21 00:25 Globulin 4.1 g/dL (1.3-4.6) 05/24/21 00:25 Lipase 16 U/L (13-60) 05/24/21 00:25 Urine Color Yellow (Yellow) 05/24/21 01:49 Urine Appearance Clear (CLEAR) 05/24/21 01:49 Urine pH 7 (5-7) 05/24/21 01:49 Ur Specific [place] 1.010 (1.005-1.030) 05/24/21 01:49 Urine Protein Neg (Negative) 05/24/21 01:49 Urine Glucose (UA) Norm (Normal) 05/24/21 01:49 Urine Ketones 1+ (Negative) H 05/24/21 01:49 Urine Blood Neg (Negative) 05/24/21 01:49 Urine Nitrate Negative (Negative) 05/24/21 01:49 Urine Bilirubin Neg (Negative) 05/24/21 01:49 Urine Urobilinogen Norm mg/dL (Negative) 05/24/21 01:49 Ur Leukocyte Esterase Negative (Negative) 05/24/21 01:49 Discharge Plan Discharge Patient Disposition: Home Clinical Impression: Chronic abdominal pain, Vomiting Condition: Stable Prescriptions: New ondansetron 4 mg tablet,disintegrating 4 mg PO Q6H PRN (Reason: nausea and vomiting) Qty: 14 0RF No Action Xifaxan 550 mg tablet 550 mg PO BID 0RF nicotine 21-14-7 mg/24 hr patch, TD daily, sequential See Rx Instructions transdermal .COMPLEX Qty: 56 0RF Rx Instructions: apply 1-21 mg NICOTINE PATCH daily for 28 days; follow with 1-14 mg PATCH daily for 14 days, then 1-7mg PATCH daily for 14 days transdermal levothyroxine 50 mcg tablet 50 mcg PO QAM Qty: 30 0RF Rx Instructions: needs an appt with labs before more refills Bevespi Aerosphere 9-4.8 mcg HFA aerosol inhaler 2 puff inhalation BID Qty: 10.7 3RF gabapentin 100 mg capsule 100 mg PO BID 0RF Narcan 4 mg/actuation spray,non-aerosol See Rx Instructions .ROUTE .COMPLEX 0RF Rx Instructions: as directed intranasally prn Lantus U-100 Insulin 100 unit/mL solution 30 unit SUBCUT BEDTIME 0RF tizanidine 4 mg tablet 4 mg PO Q6H PRN (Reason: Muscle Spasm) 0RF sumatriptan succinate [Imitrex] 50 mg Tablet 50 mg PO Q2H MDD 2 tabs PRN (Reason: Migraine Headache) 0RF spironolactone 25 mg tablet 25 mg PO QAM 0RF potassium chloride 20 mEq tablet,ER particles/crystals 20 meq PO QAM 0RF amitriptyline 25 mg tablet 25 mg PO BEDTIME 0RF promethazine 25 mg tablet 25 mg PO TID PRN (Reason: Nausea) 0RF levetiracetam 750 mg tablet 750 mg PO BID 0RF lactulose 10 gram/15 mL solution 90 ml PO TID 0RF pantoprazole 40 mg tablet,delayed release (DR/EC) 40 - 80 mg PO DAILY PRN (Reason: Acid Reflux) 0RF albuterol sulfate 90 mcg/actuation HFA aerosol inhaler 1 inh inhalation Q6H PRN (Reason: shortness of breath or wheezing) Qty: 8.5 0RF aspirin 81 mg Tablet,Delayed Release (Dr/Ec) 81 mg PO DAILY 0RF nicotine 14 mg/24 hr patch 24 hour 1 patch transdermal DAILY 0RF Rx Instructions: FOR 14 DAYS THEN GO TO THE 7MG/24H hydromorphone 2 mg tablet 2 mg PO Q6H MDD 4 TABS PRN (Reason: Pain) 0RF Rx Instructions: RX FILLED 10/22/20 14D/S oxycodone 5 mg tablet 5 mg PO Q12H PRN (Reason: Pain) 0RF furosemide 40 mg tablet 40 mg PO QAM 0RF tenofovir disoproxil fumarate 300 mg tablet 300 mg PO QAM 0RF Eliquis DVT-PE Treat 30D Start 5 mg (74 tabs) tablets,dose pack See Rx Instructions .ROUTE .COMPLEX 0RF Rx Instructions: orally per package directions furosemide 40 mg Tablet 40 mg PO BID 0RF lamotrigine 200 mg Tablet 200 mg PO DAILY 0RF amitriptyline 50 mg Tablet 50 mg PO DAILY 0RF spironolactone 25 mg Tablet 25 mg PO DAILY 0RF hydromorphone 2 mg Tablet 4 mg PO Q4H 0RF levothyroxine 50 mcg Tablet 50 mcg PO DAILY 0RF pantoprazole 40 mg Tablet,Delayed Release (Dr/Ec) 40 mg PO DAILY 0RF promethazine 25 mg Tablet 25 mg PO TID PRN (Reason: Nausea) 0RF tenofovir disoproxil fumarate 300 mg Tablet 300 mg PO DAILY 0RF levetiracetam 750 mg Tablet 750 mg PO BID 0RF gabapentin 100 mg Capsule 100 mg PO BID 0RF ondansetron 4 mg Tablet,Disintegrating 4 mg PO Q6H PRN (Reason: Nausea) 0RF metoclopramide HCl 10 mg Tablet 10 mg PO DAILY 0RF Amitiza 24 mcg Capsule 24 mcg PO DAILY 0RF Xifaxan 550 mg Tablet 550 mg PO BID 0RF Eliquis 5 mg Tablet 5 mg PO DAILY 0RF potassium chloride 20 mEq Tablet Extended Release 20 meq PO DAILY 0RF Discharge Orders: Discharge ED (Routine); Ordered 05/24/21 Ordered By: Brandon Jerez Referrals: Francisco Mkcinley DO [Primary Care Provider] - 1-3 days Patient Instructions: Abdominal Pain (ED) Coding Level of Care Code ED Home Aide for Chg 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
[2021-05-24 00:23] VITALS: BP 175/118; PULSE 78; RESP 18; TEMP 35.9; O2SAT 96
[2021-05-24] MEDS: sodium chloride 0.9% 1,000 ML 999 ML IV (00:31)
[2021-05-24] MEDS: diphenhydrAMINE 50 mg/mL SDV 1mL IVP (00:33)
[2021-05-24] MEDS: metoclopramide 5 mg/mL SDV 2 mL 10 MG IVP (00:34)
[2021-05-24 00:38] LABS: Basophils % 0.7 %; Eosinophils # 0.1 10^3/uL (0.0-0.8); Eosinophils % 0.8 %; Hemoglobin 13.2 g/dL (11.5-15.3); Lymphocytes # 1.2 10^3/uL (0.8-4.8); Lymphocytes % 20.3 %; Mean Corpuscular HGB Conc 33.8 g/dL (30.0-36.0); Mean Corpuscular Hemoglobin 30.7 pg (28.0-34.0); Mean Corpuscular Volume 90.7 fl (81-99); Mean Platelet Volume 10.3 fL (7.4-10.4); Monocytes # 0.4 10^3/uL (0.2-0.9); Monocytes % 7.4 %; Neutrophils # 4.22 10^3/uL (1.8-7.7); Neutrophils % 70.6 %; Nucleated Red Blood Cells % 0 %; Platelet Count 175 10^3/cmm (130-400)
--- NOTE | 2021-05-24 01:06 | CTR_ITS ---
PROCEDURE INFORMATION: Exam: CT Abdomen And Pelvis With Contrast Exam date and time: 05/24/2021 1:06 AM Age: 45 years old Clinical indication: Nausea and vomiting; Abdominal pain; Generalized; Prior surgery; Surgery type: Hysterectomy; Patient HX: C/O abd pain with n/v. History of hepatitis with cirrhosis. TECHNIQUE: Imaging protocol: Computed tomography of the abdomen and pelvis with contrast. Radiation optimization: All CT scans at this facility use at least one of these dose optimization techniques: automated exposure control; mA and/or kV adjustment per patient size (includes targeted exams where dose is matched to clinical indication); or iterative reconstruction. Contrast material: OMNI 300; Contrast volume: 90 ml; Contrast route: INTRAVENOUS (IV); COMPARISON: MR MRCP [id number] 10/19/2020 2:39 PM RADIATION DOSE METRICS: Total DLP (mGy-cm): 1039.93 FINDINGS: Heart: Moderate calcified coronary artery disease. Liver: Normal. No mass. Gallbladder and bile ducts: Normal. No calcified stones. No ductal dilation. Pancreas: Normal. No ductal dilation. Spleen: 14.5 cm mild splenomegaly. Adrenal glands: Normal. No mass. Kidneys and ureters: See Vasculature finding. Stomach and bowel: Unremarkable. No obstruction. No mucosal thickening. Appendix: No evidence of appendicitis. Intraperitoneal space: Unremarkable. No free air. No significant fluid collection. Vasculature: Large 19 mm diameter elongated serpiginous varix is part of portosystemic shunt draining the portal system into the left infrarenal gonadal vein which drains into the enlarged left renal vein. 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 Lymph nodes: Unremarkable. No enlarged lymph nodes. Urinary bladder: Unremarkable as visualized. Reproductive: Unremarkable as visualized. Bones/joints: Unremarkable. No acute fracture. Soft tissues: Unremarkable. CT/CT abdomen pelvis w con* [id number] IMPRESSION: 1. Moderate calcified coronary artery disease. 2. Large 19 mm diameter elongated serpiginous varix is part of portosystemic shunt draining the portal system into the left infrarenal gonadal vein which drains into the enlarged left renal vein. 3. 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 4. Cirrhosis with portal hypertension, varices and mild splenomegaly.
[2021-05-24 01:11] VITALS: RESP 20
[2021-05-24] MEDS: morphine 4 mg/mL SDV 1 mL IVP (01:11)
[2021-05-24] MEDS: ondansetron 2 mg/ML SDV 2 mL 4 MG IVP (01:11)
[2021-05-24 01:14] LABS: Alanine Aminotransferase 24 U/L (0-33); Albumin Level 3.9 g/dL (3.5-5.2); Alkaline Phosphatase 120 IU/L (35-105); Anion Gap 17.3 (5-19); Aspartate Amino Transferase 43 U/L (0-32); Blood Urea Nitrogen 6 mg/dL (6-20); Calcium 9.5 mg/dL (8.5-10.5); Carbon Dioxide 23 mmol/L (22-29); Chloride 102 mmol/L (98-107); Globulin 4.1 g/dL (1.3-4.6); Glomerular Filtration Rate 171.8 mL/min (90-130); Glucose 115 mg/dL (65-115); Lipase 16 U/L (13-60); Osmolality Calculated 287 mOsm/kg (285-295); Potassium 3.3 mmol/L (3.5-5.1); Sodium 139 mmol/L (136-145)
[2021-05-24] MEDS: iohexol 300 mg/mL 100 mL Btl IV (01:23)
[2021-05-24 01:54] LABS: Add Urine Microscopic? NO; Charge for UA Resulting for Rev
[2021-05-24 02:21] LABS: Bilirubin Urine Neg (Negative); Blood Urine Neg (Negative); Glucose Urine UA Norm (Normal); Ketones Urine 1+ (Negative); Leukocyte Esterase Urine Negative (Negative); Nitrate Urine Negative (Negative); Protein Urine Neg (Negative); Urine Appearance Clear (CLEAR); Urine Color Yellow (Yellow); Urobilinogen Urine Norm (Negative); pH Urine 7 (5-7)
[2021-05-24 03:09] VITALS: BP 176/109; PULSE 99; RESP 20; O2SAT 95
== END 2021-05-24 03:12 | disposition home or self-care (01) ==
PROVIDERS: Emergency Provider Emergency Medicine; PCP Family Medicine
DX: G89.29 Other chronic pain (principal); R10.9 Unspecified abdominal pain; R11.11 Vomiting without nausea; Z79.01 Long term (current) use of anticoagulants; Z79.82 Long term (current) use of aspirin; Z79.4 Long term (current) use of insulin; Z86.19 Personal history of other infectious and parasitic diseases; E11.9 Type 2 diabetes mellitus without complications; I10 Essential (primary) hypertension; Z85.028 Personal history of other malignant neoplasm of stomach; F17.210 Nicotine dependence, cigarettes, uncomplicated
CPT/HCPCS: 74177; 80053; 81003; 83690; 85025; 96361; 96374; 96375; 99284; J1200; J2270; J2405; J2765; J7030; Q9967

== ENCOUNTER 2021-06-09 13:54 | Emergency (ER) | payer MEDICAID, SELFPAY ==
[2021-06-09 14:11] VITALS: BP 147/100; PULSE 97; RESP 20; TEMP 36.8; O2SAT 97; BMI 31.1
[2021-06-09 15:14] LABS: Add Urine Microscopic? YES; Bilirubin Urine Neg (Negative); Blood Urine Neg (Negative); Glucose Urine UA Norm (Normal); Ketones Urine Negative (Negative); Leukocyte Esterase Urine Negative (Negative); Nitrate Urine Negative (Negative); Protein Urine Neg (Negative); Specific Gravity, Urine 1.005 (1.005-1.030); Urine Appearance SL Hazy (CLEAR); Urine Color Yellow (Yellow); Urobilinogen Urine 4 mg/dL (Negative); pH Urine 7 (5-7)
[2021-06-09 15:17] LABS: Add Urine Culture? No; Bacteria Urine 1+ /hpf; Mucus Urine TRACE /hpf; RBC Urine 0-4 /hpf (0-2); Squamous Epithelial Cell Urine 15-25 /hpf (0-5); WBC Urine 0-4 /hpf (0-5)
--- NOTE | 2021-06-09 15:35 | CTR_ITS ---
PROCEDURE INFORMATION: Exam: CT Abdomen And Pelvis With Contrast Exam date and time: 06/09/2021 3:53 PM Age: 45 years old Clinical indication: Abdominal pain; Acute; Prior surgery; Surgery date: 6+ months; Surgery type: Hyst; Patient HX: Stage 4 liver failure; Additional info: Abdominal pain with distension TECHNIQUE: Imaging protocol: Computed tomography of the abdomen and pelvis with contrast. Radiation optimization: All CT scans at this facility use at least one of these dose optimization techniques: automated exposure control; mA and/or kV adjustment per patient size (includes targeted exams where dose is matched to clinical indication); or iterative reconstruction. Contrast material: OMNI 300; Contrast volume: 95 ml; Contrast route: INTRAVENOUS (IV); COMPARISON: 1. CT abdomen pelvis w con* [id number] 05/05/2019 11:[address] abdomen pelvis w con* [id number] 05/24/2021 1:24 AM RADIATION DOSE METRICS: Total DLP (mGy-cm): 1802.26 FINDINGS: Lungs: Visualized lungs are clear. Calcified granuloma in the right lower lobe. Pleural spaces: No pleural effusion. Heart: Visualized heart is normal in size. Liver: Insert by trial valveStable nodular contour of the liver. Multiple stable hypodense foci in the liver that cannot be further characterized on the current examination. The largest measures 9.4 mm (series 2, image 33). Findings are stable dating back to 05/05/2019. Gallbladder and bile ducts: The gallbladder is unremarkable. No biliary ductal dilatation. Stable mild biliary ductal dilatation. The common bile duct measures 1.1 cm (series 2, image 20).The right and left adrenal glands are unremarkable. Pancreas: The pancreas is unremarkable. No pancreatic ductal dilatation. Spleen: Stable mild enlargement of the spleen measuring 14.6 cm in AP dimension (series 2, image 16). Adrenal glands: See Gallbladder and bile ducts finding. Kidneys and ureters: Stable ndeterminate hyperdense focus in the right kidney. Hounsfield units show density greater than expected for simple fluid. This measures 1.7 x 1.3 cm (series 2, image 23). Stable subcentimeter hypodense focus in the left kidney that is too small to characterize, however likely represents a small cyst. The right and left ureters are unremarkable. Stomach and bowel: No obstruction. No mucosal thickening. Appendix: The appendix is visualized and is unremarkable. No findings to suggest acute appendicitis. Intraperitoneal space: No free intraperitoneal air. No ascites. No loculated fluid collections to suggest an abscess. Vasculature: Mild atherosclerotic changes in the visualized arteries. No evidence for aortic aneurysm or aortic dissection. Hepatic veins, portal veins, splenic vein, and SMV are patent. Diffusely small caliber of the portal vein is stable. Small caliber varices in the gastrohepatic and splenic ligaments and large caliber varices in the retroperitoneum are stable. Lymph nodes: No lymphadenopathy. Urinary bladder: The bladder is incompletely filled, which can limit evaluation. No focal abnormality in the bladder however. Reproductive: Stable changes consistent with a previous hysterectomy. The right ovary is not definitely visualized. Patient may have had a previous right oophorectomy. The left ovary is unremarkable. Bones/joints: Mild degenerative changes in the visualized spine. Soft tissues: The extra-abdominal soft tissues are unremarkable. CT/CT abdomen pelvis w con* [id number] IMPRESSION: 1. No acute abnormality in the abdomen or pelvis. 2. Stable changes consistent with cirrhosis and portal hypertension with mild splenomegaly and variceal formation. 3. Stable indeterminate foci in the liver compared with 05/05/2019. 4. Stable indeterminate hyperdense focus in the right kidney compared with 05/05/2019. This could represent a hemorrhagic/proteinaceous cyst. 5. Incidental/nonacute findings are listed in the report.
[2021-06-09 15:51] LABS: Basophils # 0.1 10^3/uL (0.0-0.1); Basophils % 0.7 %; Eosinophils # 0.1 10^3/uL (0.0-0.8); Eosinophils % 1.6 %; Hematocrit 46.8 % (37.0-47.0); Hemoglobin 16.2 g/dL (11.5-15.3); Lymphocytes # 2.1 10^3/uL (0.8-4.8); Lymphocytes % 28.9 %; Mean Corpuscular HGB Conc 34.6 g/dL (30.0-36.0); Mean Corpuscular Hemoglobin 30.7 pg (28.0-34.0); Mean Corpuscular Volume 88.6 fl (81-99); Mean Platelet Volume 10.4 fL (7.4-10.4); Monocytes # 0.6 10^3/uL (0.2-0.9); Monocytes % 8.2 %; Neutrophils # 4.43 10^3/uL (1.8-7.7); Neutrophils % 60.3 %; Nucleated Red Blood Cells % 0 %; Platelet Count 193 10^3/cmm (130-400); Red Blood Count 5.28 10^6/uL (4.1-5.3); Red Cell Distribution Width 14.1 % (12.1-15.1); White Blood Count 7.3 10^3/uL (4.0-10.0)
[2021-06-09] MEDS: iohexol 300 mg/mL 100 mL Btl IV (15:53)
[2021-06-09] MEDS: sodium chloride 0.9% 1,000 ML 999 ML IV (16:22)
--- NOTE | 2021-06-09 16:24 | W.ED.ABDPA2 ---
HPI - Abdominal Pain General: Chief Complaint: Abdominal Pain Stated Complaint: ABD Pain Time Seen by Provider: 06/09/21 15:21 History of Present Illness: 45-year-old female presents emergency department chief complaint of abdominal distention and abdominal pain this been ongoing progressively worse over the last 1 day patient reports a history of chronic pain issues including hepatitis B which she is not a candidate currently for liver transplantation the patient reports that she took her prescribed Dilaudid earlier today that did not seem to help the pain. The patient reports that she been having abdominal distention and retention of fluid in her legs reports that she is on several medications including lactulose for her liver. The patient reports no recent medication change reports she also has insulin-dependent diabetic. Patient does not report any recent trauma or injury noted to her abdomen reporting no other associated symptoms. Associated Symptoms: Reports bloating, change in bowel habits and nausea; Denies chills and fever(s) Review of Systems General: Reports: 10 or more systems reviewed and unremarkable except in HPI and below Const: Denies: fever(s), chills, fatigue or malaise Eyes: Denies: change in vision or blurry vision Card: Denies: chest pain or palpitations Resp: Denies: dyspnea or productive cough GI: Reports: abdominal pain, nausea, bloating and change in bowel habits : Denies: flank pain Musc: Denies: extremity pain or extremity swelling Skin/Breast: Denies: rash or pruritus Neuro: Denies: headache(s) Psych: Denies: anxiety or depression Robel/Lymph: Denies: easy bleeding All/Imm: Denies: urticaria, throat swelling or facial swelling PFSH ED PFSH: Medical History Chronic abdominal pain Chronic hepatitis B Chronic hip pain Cirrhosis Diabetes mellitus Encephalopathy Gastroesophageal reflux GI bleeding Hypertension Leg cramps Pelvic inflammatory disease Stomach cancer Surgical History H/O tubal ligation History of hysterectomy History of laparotomy Family History Mother Diabetes Father CAD (coronary artery disease) Other Cancer Social History Smoking and tobacco status: current every day smoker cigarettes Packs smoked per day: 2 Years cigarettes smoked: 26 [ Other cigarette details: currently trying to quit, smoking 7 cigarettes/day] Alcohol intake: never Physical Exam Const: COMMON NORMALS: patient oriented x3 OTHER: Patient appears to be in mild distress due to pain HENMT: COMMON NORMALS: normocephalic and atraumatic HEAD & SCALP: normocephalic and atraumatic Eye: COMMON NORMALS: Equal, round and reactive pupils present and EOMs intact bilaterally PUPIL: Yes Equal, round and reactive pupils present Neck/C-Spine: COMMON NORMALS: full ROM, supple and no JVD Lymph: LYMPHATIC: no lymphadenopathy noted Chest: COMMONS NORMALS: normal inspection of the chest and normal palpation of entire chest wall Resp: COMMON NORMALS: normal respiratory effort, No retractions and clear to auscultation bilaterally EFFORT & INSPECTION: Yes able to speak in complete sentences and Yes symmetric chest movement AUSCULTATION: clear to auscultation bilaterally Cardio: COMMON NORMALS: no JVD, regular rate and regular rhythm RATE: regular rate RHYTHM: regular rhythm GI: OTHER: Moderate abdominal distention no obvious fluid wave noted or ascites moderate pain to palpation diffusely nonspecific mostly noted epigastric abdominal area : COMMON NORMALS: Yes no CVA tenderness BLADDER/KIDNEY EXAM: Yes no CVA tenderness Back/Pelvis: COMMON NORMALS: no CVA tenderness Extremity: COMMON NORMALS: normal to inspection and full ROM Neuro: COMMON NORMALS: patient oriented x3, CN's II-XII intact bilaterally, moves all extremities and no focal motor deficits Psych: COMMON NORMALS: mental status grossly normal, Normal thought process present, cooperative and normal affect THOUGHT PROCESS: Normal thought process present Skin: COMMON NORMALS: no rashes or lesions noted GENERAL SKIN EXAM: no rashes or lesions noted Course Vital Signs: Vital signs: Vital Signs Temperature 98.2 F 06/09/21 14:11 Pulse Rate 97 06/09/21 14:11 Respiratory Rate 20 H 06/09/21 16:25 Blood Pressure 147/100 06/09/21 14:11 Pulse Oximetry 98 06/09/21 16:25 MDM - Abdominal Pain Medical Decision Making Due to the patient's symptoms and condition lab work and imaging will be obtained we will continue to follow patient with provided 1 mg Dilaudid for breakthrough pain control as well as Zofran. Lab Data : 06/09/21 15:30 06/09/21 15:30 Labs/Radiology: Radiology Impressions Abdomen/Pelvis CT 06/09/21 15:35 IMPRESSION: 1. No acute abnormality in the abdomen or pelvis. 2. Stable changes consistent with cirrhosis and portal hypertension with mild splenomegaly and variceal formation. 3. Stable indeterminate foci in the liver compared with 05/05/2019. 4. Stable indeterminate hyperdense focus in the right kidney compared with 05/05/2019. This could represent a hemorrhagic/proteinaceous cyst. 5. Incidental/nonacute findings are listed in the report. Laboratory Results WBC 7.3 10^3/uL (4.0-10.0) 06/09/21 15:30 RBC 5.28 10^6/uL (4.1-5.3) 06/09/21 15:30 Hgb 16.2 g/dL (11.5-15.3) H 06/09/21 15:30 Hct 46.8 % (37.0-47.0) 06/09/21 15:30 MCV 88.6 fl (81-99) 06/09/21 15:30 MCH 30.7 pg (28.0-34.0) 06/09/21 15:30 MCHC 34.6 g/dL (30.0-36.0) 06/09/21 15:30 RDW 14.1 % (12.1-15.1) 06/09/21 15:30 Plt Count 193 10^3/cmm (130-400) 06/09/21 15:30 MPV 10.4 fL (7.4-10.4) 06/09/21 15:30 Neut % (Auto) 60.3 % 06/09/21 15:30 Lymph % (Auto) 28.9 % 06/09/21 15:30 [place] % (Auto) 8.2 % 06/09/21 15:30 Eos % (Auto) 1.6 % 06/09/21 15:30 Baso % (Auto) 0.7 % 06/09/21 15:30 Neut # (Auto) 4.43 10^3/uL (1.8-7.7) 06/09/21 15:30 Lymph # (Auto) 2.1 10^3/uL (0.8-4.8) 06/09/21 15:30 [place] # (Auto) 0.6 10^3/uL (0.2-0.9) 06/09/21 15:30 Eos # (Auto) 0.1 10^3/uL (0.0-0.8) 06/09/21 15:30 Baso # (Auto) 0.1 10^3/uL (0.0-0.1) 06/09/21 15:30 Nucleated RBC % (auto) 0 % 06/09/21 15:30 Nucleated RBCs # 0.0 /100WBC 06/09/21 15:30 PT 15.10 SECONDS (12.1-14.9) H 06/09/21 16:15 INR 1.16 (0.8-1.2) 06/09/21 16:15 APTT 30.1 SECONDS (23.9-36.7) 06/09/21 16:15 Sodium 140 mmol/L (136-145) 06/09/21 15:30 Potassium 4.2 mmol/L (3.5-5.1) 06/09/21 15:30 Chloride 102 mmol/L (98-107) 06/09/21 15:30 Carbon Dioxide 24 mmol/L (22-29) 06/09/21 15:30 Anion Gap 18.2 (5-19) 06/09/21 15:30 BUN 8 mg/dL (6-20) 06/09/21 15:30 Creatinine 0.5 mg/dL (0.5-0.9) 06/09/21 15:30 GFR Calculation 132.8 mL/min (90-130) H 06/09/21 15:30 Glucose 86 mg/dL (65-115) 06/09/21 15:30 Calculated Osmolality 288 mOsm/kg (285-295) 06/09/21 15:30 Calcium 10.2 mg/dL (8.5-10.5) 06/09/21 15:30 Phosphorus 3.1 mg/dL (2.5-4.5) 06/09/21 15:30 Magnesium 1.5 mg/dL (1.7-2.3) L 06/09/21 15:30 Total Bilirubin 1.1 mg/dL (0.15-1.2) 06/09/21 15:30 AST 43 U/L (0-32) H 06/09/21 15:30 ALT 21 U/L (0-33) 06/09/21 15:30 Alkaline Phosphatase 135 IU/L (35-105) H 06/09/21 15:30 C-Reactive Protein 4.5 mg/L (0.0-4.9) 06/09/21 15:30 NT-Pro-B Natriuret Pep 172 pg/mL (0-125) H 06/09/21 15:30 Total Protein 8.8 g/dL (6.6-8.7) H 06/09/21 15:30 Albumin 4.4 g/dL (3.5-5.2) 06/09/21 15:30 Globulin 4.4 g/dL (1.3-4.6) 06/09/21 15:30 Lipase 36 U/L (13-60) 06/09/21 15:30 Urine Color Yellow (Yellow) 06/09/21 14:50 Urine Appearance Sl hazy (CLEAR) 06/09/21 14:50 Urine pH 7 (5-7) 06/09/21 14:50 Ur Specific [place] 1.005 (1.005-1.030) 06/09/21 14:50 Urine Protein Neg (Negative) 06/09/21 14:50 Urine Glucose (UA) Norm (Normal) 06/09/21 14:50 Urine Ketones Negative (Negative) 06/09/21 14:50 Urine Blood Neg (Negative) 06/09/21 14:50 Urine Nitrate Negative (Negative) 06/09/21 14:50 Urine Bilirubin Neg (Negative) 06/09/21 14:50 Urine Urobilinogen 4 mg/dL (Negative) H 06/09/21 14:50 Ur Leukocyte Esterase Negative (Negative) 06/09/21 14:50 Urine RBC 0-4 /hpf (0-2) H 06/09/21 14:50 Urine WBC 0-4 /hpf (0-5) H 06/09/21 14:50 Ur Squamous Epith Cells 15-25 /hpf (0-5) H 06/09/21 14:50 Amorphous Sediment Not Reportable 06/09/21 14:50 Urine Bacteria 1+ /hpf (NONE) H 06/09/21 14:50 Urine Mucus Trace /hpf 06/09/21 14:50 Discharge Plan Discharge Patient Disposition: Home Clinical Impression: Chronic abdominal pain, Chronic hepatitis B Condition: Stable Prescriptions: No Action Xifaxan 550 mg tablet 550 mg PO BID 0RF nicotine 21-14-7 mg/24 hr patch, TD daily, sequential See Rx Instructions transdermal .COMPLEX Qty: 56 0RF Rx Instructions: apply 1-21 mg NICOTINE PATCH daily for 28 days; follow with 1-14 mg PATCH daily for 14 days, then 1-7mg PATCH daily for 14 days transdermal levothyroxine 50 mcg tablet 50 mcg PO QAM Qty: 30 0RF Rx Instructions: needs an appt with labs before more refills Bevespi Aerosphere 9-4.8 mcg HFA aerosol inhaler 2 puff inhalation BID Qty: 10.7 3RF gabapentin 100 mg capsule 100 mg PO BID 0RF Narcan 4 mg/actuation spray,non-aerosol See Rx Instructions .ROUTE .COMPLEX 0RF Rx Instructions: as directed intranasally prn Lantus U-100 Insulin 100 unit/mL solution 30 unit SUBCUT BEDTIME 0RF tizanidine 4 mg tablet 4 mg PO Q6H PRN (Reason: Muscle Spasm) 0RF sumatriptan succinate [Imitrex] 50 mg Tablet 50 mg PO Q2H MDD 2 tabs PRN (Reason: Migraine Headache) 0RF spironolactone 25 mg tablet 25 mg PO QAM 0RF potassium chloride 20 mEq tablet,ER particles/crystals 20 meq PO QAM 0RF amitriptyline 25 mg tablet 25 mg PO BEDTIME 0RF promethazine 25 mg tablet 25 mg PO TID PRN (Reason: Nausea) 0RF levetiracetam 750 mg tablet 750 mg PO BID 0RF lactulose 10 gram/15 mL solution 90 ml PO TID 0RF pantoprazole 40 mg tablet,delayed release (DR/EC) 40 - 80 mg PO DAILY PRN (Reason: Acid Reflux) 0RF albuterol sulfate 90 mcg/actuation HFA aerosol inhaler 1 inh inhalation Q6H PRN (Reason: shortness of breath or wheezing) Qty: 8.5 0RF aspirin 81 mg Tablet,Delayed Release (Dr/Ec) 81 mg PO DAILY 0RF nicotine 14 mg/24 hr patch 24 hour 1 patch transdermal DAILY 0RF Rx Instructions: FOR 14 DAYS THEN GO TO THE 7MG/24H hydromorphone 2 mg tablet 2 mg PO Q6H MDD 4 TABS PRN (Reason: Pain) 0RF Rx Instructions: RX FILLED 10/22/20 14D/S oxycodone 5 mg tablet 5 mg PO Q12H PRN (Reason: Pain) 0RF furosemide 40 mg tablet 40 mg PO QAM 0RF tenofovir disoproxil fumarate 300 mg tablet 300 mg PO QAM 0RF Eliquis DVT-PE Treat 30D Start 5 mg (74 tabs) tablets,dose pack See Rx Instructions .ROUTE .COMPLEX 0RF Rx Instructions: orally per package directions furosemide 40 mg Tablet 40 mg PO BID 0RF lamotrigine 200 mg Tablet 200 mg PO DAILY 0RF amitriptyline 50 mg Tablet 50 mg PO DAILY 0RF spironolactone 25 mg Tablet 25 mg PO DAILY 0RF hydromorphone 2 mg Tablet 4 mg PO Q4H 0RF levothyroxine 50 mcg Tablet 50 mcg PO DAILY 0RF pantoprazole 40 mg Tablet,Delayed Release (Dr/Ec) 40 mg PO DAILY 0RF promethazine 25 mg Tablet 25 mg PO TID PRN (Reason: Nausea) 0RF tenofovir disoproxil fumarate 300 mg Tablet 300 mg PO DAILY 0RF levetiracetam 750 mg Tablet 750 mg PO BID 0RF gabapentin 100 mg Capsule 100 mg PO BID 0RF ondansetron 4 mg Tablet,Disintegrating 4 mg PO Q6H PRN (Reason: Nausea) 0RF metoclopramide HCl 10 mg Tablet 10 mg PO DAILY 0RF Amitiza 24 mcg Capsule 24 mcg PO DAILY 0RF Xifaxan 550 mg Tablet 550 mg PO BID 0RF Eliquis 5 mg Tablet 5 mg PO DAILY 0RF potassium chloride 20 mEq Tablet Extended Release 20 meq PO DAILY 0RF ondansetron 4 mg tablet,disintegrating 4 mg PO Q6H PRN (Reason: nausea and vomiting) Qty: 14 0RF Discharge Orders: Discharge ED (Routine); Ordered 06/09/21 Ordered By: Jus Sosa Referrals: Francisco Mckinley DO [Primary Care Provider] - 1-3 days Discharge Diet: Usual diet Discharge Activity: Resume usual activity Patient Instructions: Abdominal Pain (ED), Chronic Abdominal Pain (ED), Opioid Safety Activity Restrictions/Additional Instructions: Please follow-up with your primary care doctor in 2 to 3 days take your already prescribed medications for your breakthrough pain control in which return in the interim if any of her symptoms persist or worse. Coding Level of Care Code ED Blower Insulator for Chg 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
[2021-06-09 16:25] VITALS: RESP 20; O2SAT 98
[2021-06-09] MEDS: HYDROmorphone 1 mg/mL INJ 1 mL IVP (16:25)
[2021-06-09] MEDS: ondansetron 2 mg/ML SDV 2 mL 4 MG IVP (16:25)
[2021-06-09 16:34] LABS: Alanine Aminotransferase 21 U/L (0-33); Albumin Level 4.4 g/dL (3.5-5.2); Alkaline Phosphatase 135 IU/L (35-105); Anion Gap 18.2 (5-19); Aspartate Amino Transferase 43 U/L (0-32); Blood Urea Nitrogen 8 mg/dL (6-20); C Reactive Protein 4.5 mg/L (0.0-4.9); Calcium 10.2 mg/dL (8.5-10.5); Carbon Dioxide 24 mmol/L (22-29); Chloride 102 mmol/L (98-107); Globulin 4.4 g/dL (1.3-4.6); Glomerular Filtration Rate 132.8 mL/min (90-130); Glucose 86 mg/dL (65-115); Lipase 36 U/L (13-60); Magnesium 1.5 mg/dL (1.7-2.3); NT Pro B Type Natriuretic Pept 172 pg/mL (0-125); Osmolality Calculated 288 mOsm/kg (285-295); Phosphorus 3.1 mg/dL (2.5-4.5); Potassium 4.2 mmol/L (3.5-5.1); Sodium 140 mmol/L (136-145); Total Bilirubin 1.1 mg/dL (0.15-1.2); Total Protein 8.8 g/dL (6.6-8.7)
[2021-06-09 16:39] LABS: INR 1.16 (0.8-1.2); Partial Thromboplastin Time 30.1 SECONDS (23.9-36.7)
[2021-06-09 17:29] VITALS: BP 190/103; PULSE 97; RESP 14; O2SAT 99
[2021-06-09 17:42] VITALS: BP 190/103; PULSE 97; RESP 14; O2SAT 99
== END 2021-06-09 17:44 | disposition home or self-care (01) ==
PROVIDERS: Nurse Practitioner Family; Emergency Provider Emergency Medicine; PCP Family Medicine
DX: B18.1 Chronic viral hepatitis B without delta-agent (principal); G89.29 Other chronic pain; R11.0 Nausea; E11.8 Type 2 diabetes mellitus with unspecified complications; I10 Essential (primary) hypertension; F17.210 Nicotine dependence, cigarettes, uncomplicated; Z79.4 Long term (current) use of insulin; Z79.01 Long term (current) use of anticoagulants
CPT/HCPCS: 74177; 80053; 81001; 83690; 83735; 83880; 84100; 85025; 85610; 85730; 86140; 96361; 96374; 96375; 99283; J1170; J2405; J7030; Q9967

== ENCOUNTER 2021-08-06 19:39 | Observation (INO) | payer MEDICAID, SELFPAY ==
[2021-08-06 19:42] VITALS: BP 136/103; PULSE 107; RESP 20; TEMP 36.9; O2SAT 98; BMI 30.7
--- NOTE | 2021-08-06 19:42 | ED_ITS ---
HPI - Overdose General: Chief Complaint: Overdose Stated Complaint: OD Time Seen by Provider: 08/06/21 19:42 History of Present Illness: Ms. Foreman is a 45-year-old lady with complex p ast medical history including diabetes, COPD, history of PE on anticoagulation, end-stage liver disease secondary to chronic hepatitis presenting to the emergency department postcode after overdose. Apparently the patient has had increased back pain and broke open a capsule was of what she thought was fentanyl and ingested it. She subsequently experienced likely respiratory and cardiac arrest. When EMS arrived they found her cyanotic and unresponsive. They performed approximately 3 to 4 minutes of CPR and had PEA with rates of 20s on the bit sharpener. With supplemental oxygen and 1 mg of Narcan the patient obtained ROSC. Patient subsequently vomited. She does report headache and ch est pain. Additionally she endorses abdominal pain. She denies suicidal intent with medication. Denies similar episodes in the past. Overall intensity symptoms moderate to severe. Course has persisted. No other specific changes in health, exacerbating, or alleviating factors identified. Onset (ago): minute(s) Intent: other Context: Accidental Overdose: other Treatments Prior to Arrival: oxygen, narcan and other Review of Systems General: Reports: 10 or more systems reviewed and unremarkable except in HPI and below PFSH ED PFSH: Medical History Chronic abdominal pain Chronic hepatitis B Chronic hip pain Cirrhosis Diabetes mellitus Encephalopathy Gastroesophageal reflux GI bleeding Hypertension Leg cramps Pelvic inflammatory disease Stomach cancer Surgical History H/O tubal ligation History of hysterectomy History of laparotomy Family History Mother Diabetes Father CAD (coronary artery disease) Other Cancer Social History Smoking and tobacco status: current every day smoker cigarettes Packs smoked per day: 2 Years cigarettes smoked: 26 [ Other cigarette details: currently trying to quit, smoking 7 cigarettes/day] Alcohol intake: never Physical Exam Const: COMMON NORMALS: alert GENERAL APPEARANCE: cooperative, well developed and ill appearing HENMT: COMMON NORMALS: normocephalic and atraumatic HEAD & SCALP: normoce phalic and atraumatic Eye: COMMON NORMALS: conjunctivae normal CONJUNCTIVA: Yes conjunctivae normal SCLERA: sclerae normal Neck/C-Spine: COMMON NORMALS: supple GENERAL: Yes trachea midline Resp: EFFORT & INSPECTION: Yes able to speak in complete sentences AUSCULTATION: diminished lung sounds Cardio: COMMON NORMALS: regular rate and regular rhythm RATE: regular rate RHYTHM: regular rhythm GI: COMMON NORMALS: Soft to palpation PALPATION: Yes Soft to palpation, Yes Tenderness to palpation present (GI), No Guarding due to palpation present (GI) and No Rigid due to palpation PERCUSSION: normal to percussion Extremity: GENERAL: Yes normal exam except as noted and No edema Neuro: COMMON NORMALS: moves all extremities SENSORIUM/ORIENTATION: Yes alert and No Orientation impaired Psych: COMMON NORMALS: mental status grossly normal and Normal thought process present THOUGHT PROCESS: Normal thought process present Course ED course: - Patient was seen and evaluated by me at bedside - Patient placed on cardiac monitors, IV access obtained - Initial evaluation notable for exam as above. Neuro intact. - Labs personally interpreted by me. EKGs reviewed showing sinus tachycardia without evidence of STEMI. - Labs notable for no leukocytosis, normal hemoglobin. Metabolic panel with mild hypokalemia, replenishment ordered. Mild transaminitis. Delta troponin at 2 hours is negative. Urinalysis not concerning for urinary tract infection. - Imaging notable for no acute finding on head CT or CT chest abdomen pelvis without contrast - Analgesia given for chest wall pain - Upon serial reexamination after treatment the patient was similar without recurrence of symptoms - Based on patient history, evaluation, and testing as interpreted the most likely cause of the patient's condition is most likely drug overdose resulting in severe respiratory depression/failure leading to cardiac arrest with ROSC achieved by EMS - The results of ED evaluation were discussed with the patient including plan for admission due to requirement for level of care not available if discharged to prevent significant worsening/deterioration. - Hospitalist service contacted and agreed to admit the patient - Patient was admitted without further deterioration or significant events. Note: Click bubbles or prepopulated puckett in note writing are used for assistance with data collection and billing and are inherently more limited than narrative and other text portions of this note. Please use narrative for additional cli nical history and defer to narrative/free test for any case of contradictory information. If information appears in only free text or click bubble it should be considered present or absent as reported. Please contact note job specification writer for clarifications of clinical information or contradictory information. MDM is a brief summary, contradictory or erroneous seeming information should be clarified and full note should be reviewed. Vital Signs: Vital signs: Vital Signs Temperature 98.4 F 08/08/21 00:00 Pulse Rate 79 08/08/21 10:44 Respiratory Rate 14 08/08/21 10:44 Blood Pressure 152/93 08/08/21 10:44 Pulse Oximetry 97 08/08/21 08:19 MDM - Overdose Medical Decision Making 45-year-old lady with complex past medical history presenting to the emergency department after cardiac arrest with PEA in the field subsequently achieving ROSC. Most likely etiology is drug overdose resulting in respiratory failure leading to cardiac arrest. Patient completely neuro intact and alert/oriented upon presentation. Admitted for further observation. Medical Records I reviewed the patient's medical records. Lab Data I reviewed the patient's lab results. : 08/08/21 06:05 08/08/21 02:50 Radiology Impressions Chest/Abdomen/Pelvis CT 08/06/21 19:49 IMPRESSION: 1. Assessment of the soft tissues and the vascular structures is limited due to use of noncontrast technique. 2. No acute abnormality demonstrated. IMPRESSION: 1. Assessment of the solid organs and the vascular structures is limited due to use of noncontrast technique. 2. No acute abnormality demonstrated in the abdomen and pelvis. Head CT 08/06/21 19:49 IMPRESSION: No acute intracranial abnormality. Venous Duplex 08/07/21 07:48 IMPRESSION: No evidence of deep vein thrombosis. Chest CTA 08/07/21 09:16 IMPRESSION: 1. No pulmonary emboli identified. 2. There are few faint ground-glass opacities in the left lower lobe, which could reflect sequela of aspiration or infection. Laboratory Results WBC 5.6 10^3/uL (4.0-10.0) 08/06/21 20:03 RBC 4.71 10^6/uL (4.1-5.3) 08/06/21 20:03 Hgb 14.3 g/dL (11.5-15.3) 08/06/21 20:03 Hct 42.1 % (37.0-47.0) 08/06/21 20:03 MCV 89.4 fl (81-99) 08/06/21 20:03 MCH 30.4 pg (28.0-34.0) 08/06/21 20: MCHC 34.0 g/dL (30.0-36.0) 08/06/21 20:03 RDW 13.1 % (12.1-15.1) 08/06/21 20:03 Plt Count 145 10^3/cmm (130-400) 08/06/21 20:03 MPV 10.9 fL (7.4-10.4) H 08/06/21 20:03 Neut % (Auto) 41.9 % 08/06/21 20:03 Lymph % (Auto) 36.9 % 08/06/21 20:03 [place] % (Auto) 14.3 % 08/06/21 20:03 Eos % (Auto) 5.7 % 08/06/21 20:03 Baso % (Auto) 0.5 % 08/06/21 20: Neut # (Auto) 2.33 10^3/uL (1.8-7.7) 08/06/21 20:03 Lymph # (Auto) 2.1 10^3/uL (0.8-4.8) 08/06/21 20:03 [place] # (Auto) 0.8 10^3/uL (0.2-0.9) 08/06/21 20:03 Eos # (Auto) 0.3 10^3/uL (0.0-0.8) 08/06/21 20: Baso # (Auto) 0.0 10^3/uL (0.0-0.1) 08/06/21 20:03 Nucleated RBC % (auto) 0 % 08/06/21 20: Nucleated RBCs # 0.0 /100WBC 08/06/21 20: PT 13.90 SECONDS (12.1-14.9) 08/06/21 23:10 INR 1.04 (0.8-1.2) 08/06/21 23:10 Sodium 137 mmol/L (136-145) 08/06/21 20:03 Potassium 3.2 mmol/L (3.5-5.1) L 08/06/21 20:03 Chloride 98 mmol/L (98-107) 08/06/21 20:03 Carbon Dioxide 27 mmol/L (22-29) 08/06/21 20:03 Anion Gap 15.2 (5-19) 08/06/21 20:03 BUN 10 mg/dL (6-20) 08/06/21 20:03 Creatinine 0.5 mg/dL (0.5-0.9) 08/06/21 20:03 GFR Calculation 132.8 mL/min (90-130) H 08/06/21 20:03 Glucose 92 mg/dL (65-115) 08/06/21 20:03 Calculated Osmolality 283 mOsm/kg (285-295) L 08/06/21 20:03 Lactate 2.2 mmol/L (0.5-2.2) 08/06/21 20:03 Calcium 9.2 mg/dL (8.5-10.5) 08/06/21 20:03 Total Bilirubin 0.8 mg/dL (0.15-1.2) 08/06/21 20:03 AST 58 U/L (0-32) H 08/06/21 20:03 ALT 34 U/L (0-33) H 08/06/21 20:03 Alkaline Phosphatase 103 IU/L (35-105) 08/06/21 20:03 Troponin T Baseline 26 ng/L (0-10) H 08/06/21 20:03 Troponin T 120 Minute 26.15 ng/L (0-10) H 08/06/21 21:48 Delta Troponin T 0.15 ABS# (0-10) 08/06/21 21:48 Total Protein 8.3 g/dL (6.6-8.7) 08/06/21 20:03 Albumin 3.7 g/dL (3.5-5.2) 08/06/21 20:03 Globulin 4.6 g/dL (1.3-4.6) 08/06/21 20:03 Urine Color Yellow (Yellow) 08/06/21:42 Urine Appearance Clear (CLEAR) 08/06/21 21:42 Urine pH 7 (5-7) 08/06/21 21:42 Ur Specific [place] 1.010 (1.005-1.030) 08/06/21 21:42 Urine Protein Neg (Negative) 08/06/21 21:42 Urine Glucose (UA) Norm (Normal) 08/06/21 21:42 Urine Ketones Negative (Negative) 08/06/21 21:42 Urine Blood Neg (Negative) 08/06/21 21:42 Urine Nitrate Negative (Negative) 08/06/21 21:42 Urine Bilirubin Neg (Negative) 08/06/21 21:42 Urine Urobilinogen Norm mg/dL (Negative) 08/06/21 21:42 Ur Leukocyte Esterase Negative (Negative) 08/06/21 21:42 Salicylates < 0.3 mg/dL (3-10) L 08/06/21 20:03 Urine Opiates Screen Positive ng/mL (Negative) H 08/06/21 21:42 Acetaminophen < 5.0 ug/mL (10-30) L 08/06/21 20:03 Ur Barbiturates Screen Negative ng/mL (Negative) 08/06/21 21:42 Ur Phencyclidine Scrn Negative ng/mL (Negative) 08/06/21 21:42 Ur Amphetamines Screen Positive ng/mL (Negative) H 08/06/21 21:42 U Benzodiazepines Scrn Negative ng/mL (Negative) 08/06/21 21:42 Urine Cocaine Screen Negative ng/mL (Negative) 08/06/21 21:42 U Marijuana (THC) Screen Negative ng/mL (Negative) 08/06/21 21:42 Ethyl Alcohol < 10 mg/dL (0-10) 08/06/21 20:03 Critical Care Time Critical Care Time: Critical Care Time: Yes Total Critical Care Time: 35 Attestation: Due to a high probability of clinically significant, possibly life threatening deterioration, the patient required my highest level of attention and preparedness to intervene emergently and I personally spent this critical care time directly and personally managing the patient. This critical care time included obtaining a history; examining the patient; pulse oximetry; ordering and review of laboratory and imaging studies; arranging urgent treatment with development of a management plan; evaluation of patient's response to treatment; frequent reassessment; and, discussions with other providers as applicable. It was exclusive of separately billable procedures. Primary system involved is cardiopulmonary Discharge Plan Discharge Patient Disposition: Placed in Observation Admit Provider: Deja Page Clinical Impression: Cardiac arrest, Overdose Coding Level of Care Code ED Electrical Line Splicer for Chg 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
--- NOTE | 2021-08-06 19:49 | CTR_ITS ---
PROCEDURE INFORMATION: Exam: CT Head Without Contrast Exam date and time: 08/06/2021 8:11 PM Age: 45 years old Clinical indication: Headache not specified; Patient HX: Od/cardiac arrest p narcan and cpr C/O pain; Additional info: Headache, post cardiac arrest TECHNIQUE: Imaging protocol: Computed tomography of the head without contrast. Radiation optimization: All CT scans at this facility use at least one of these dose optimization techniques: automated exposure control; mA and/or kV adjustment per patient size (includes targeted exams where dose is matched to clinical indication); or iterative reconstruction. COMPARISON: CT head wo con* [id number] 02/19/2021 3:29 AM RADIATION DOSE METRICS: Total DLP (mGy-cm): 981.82 FINDINGS: Brain: Normal. No hemorrhage. Unremarkable white matter. No mass effect. Cerebral ventricles: No ventriculomegaly. Paranasal sinuses: Visualized sinuses are unremarkable. No fluid levels. Mastoid air cells: Visualized mastoid air cells are well aerated. Bones/joints: Unremarkable. No acute fracture. Soft tissues: Unremarkable. CT/CT head wo con* [id number] IMPRESSION: No acute intracranial abnormality.
--- NOTE | 2021-08-06 19:49 | CTR_ITS ---
PROCEDURE INFORMATION: Exam: CT Chest Without Contrast; Diagnostic Exam date and time: 08/06/2021 8:15 PM Age: 45 years old Clinical indication: Abdominal pain; Generalized; Sternal or substernal pain; Prior surgery; Surgery date: 6+ months; Surgery type: Hyst; Patient HX: Od/cardiac arrest p narcan and cpr C/O pain; Additional info: Post cardiac arrest, chest and abd pain TECHNIQUE: Imaging protocol: Diagnostic computed tomography of the chest without contrast. Radiation optimization: All CT scans at this facility use at least one of these dose optimization techniques: automated exposure control; mA and/or kV adjustment per patient size (includes targeted exams where dose is matched to clinical indication); or iterative reconstruction. COMPARISON: CT angio chest w abd pel w con 11/10/2020 5:52 PM RADIATION DOSE METRICS: Total DLP (mGy-cm): 2161.01 FINDINGS: Limitations: Assessment of the soft tissues and the vascular structures is limited due to use of noncontrast technique. Lungs: Changes of centrilobular emphysema demonstrated. No consolidative pulmonary infiltrates are noted. Pleural spaces: No pleural effusion or pneumothorax noted. Heart: No cardiomegaly. No pericardial effusion. Coronary calcifications. Lymph nodes: Unremarkable. No enlarged lymph nodes. Vasculature: Unremarkable. No aortic aneurysm. Bones/joints: No fracture or other acute osseous abnormality. Soft tissues: The soft tissues appear unremarkable. PROCEDURE INFORMATION: Exam: CT Abdomen And Pelvis Without Contrast Exam date and time: 08/06/2021 8:15 PM Age: 45 years old Clinical indication: Abdominal pain; Generalized; Sternal or substernal pain; Prior surgery; Surgery date: 6+ months; Surgery type: Hyst; Patient HX: Od/cardiac arrest p narcan and cpr C/O pain; Additional info: Post cardiac arrest, chest and abd pain TECHNIQUE: Imaging protocol: Computed tomography of the abdomen and pelvis without contrast. Radiation optimization: All CT scans at this facility use at least one of these dose optimization techniques: automated exposure control; mA and/or kV adjustment per patient size (includes targeted exams where dose is matched to clinical indication); or iterative reconstruction. COMPARISON: CT abdomen pelvis w con* [id number] 06/09/2021 3:53 PM RADIATION DOSE METRICS: Total DLP (mGy-cm): 2161.01 FINDINGS: Limitations: Assessment of the solid organs and the vascular structures is limited due to use of noncontrast technique. Liver: Changes of hepatic cirrhosis are noted. 6 mm simple appearing cyst in the left lobe of the liver. No acute hepatic abnormality. Gallbladder and bile ducts: No calcified gallstones in the gallbladder. No gallbladder wall thickening. No pericholecystic fluid. No biliary dilatation. Pancreas: The pancreas is normal in appearance. No pancreatic duct dilatation. Spleen: There is mild splenomegaly present. The spleen measures 13 cm in length. No acute splenic abnormality demonstrated. Adrenal glands: The adrenal glands appear within normal limits. Kidneys and ureters: The kidneys are normal in morphology. No hydronephrosis. No solid mass. Stomach and bowel: No acute gastric abnormality demonstrated. The small bowel is unremarkable as demonstrated. Appendix: The appendix is normal in appearance. No evidence of appendicitis. Intraperitoneal space: No free air. No significant fluid collection. Vasculature: The aorta is atherosclerotic. No aortic aneurysm. Lymph nodes: No pathologically enlarged lymph nodes are demonstrated. Urinary bladder: The urinary bladder is unremarkable in appearance. Reproductive: Unremarkable as visualized. Bones/joints: No fracture or other acute osseous abnormality. Soft tissues: The soft tissues appear unremarkable. CT/CT chest abd pel wo con IMPRESSION: 1. Assessment of the soft tissues and the vascular structures is limited due to use of noncontrast technique. 2. No acute abnormality demonstrated. IMPRESSION: 1. Assessment of the solid organs and the vascular structures is limited due to use of noncontrast technique. 2. No acute abnormality demonstrated in the abdomen and pelvis.
--- NOTE | 2021-08-06 19:50 | ECG_ITS ---
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 Measurements Intervals [place] Rate: 105 P: 74 SD: 136 QRS: 76 QRSD: 100 T: 62 QT: 355 QTc: 471 Interpretive Statements SINUS TACHYCARDIA POSSIBLE LEFT ATRIAL ENLARGEMENT [-0.1mV P-WAVE IN V1/V2] Compared to ECG 10/17/2020 20:42:22 ST (T wave) deviation no longer present Electronically Signed On 08-07-2021 12:13:06 CDT by Oseas Junior M.D. [id number] f
[2021-08-06 20:13] LABS: Basophils % 0.5 %; Eosinophils # 0.3 10^3/uL (0.0-0.8); Eosinophils % 5.7 %; Hematocrit 42.1 % (37.0-47.0); Hemoglobin 14.3 g/dL (11.5-15.3); Lymphocytes # 2.1 10^3/uL (0.8-4.8); Lymphocytes % 36.9 %; Mean Corpuscular Hemoglobin 30.4 pg (28.0-34.0); Mean Corpuscular Volume 89.4 fl (81-99); Mean Platelet Volume 10.9 fL (7.4-10.4); Monocytes # 0.8 10^3/uL (0.2-0.9); Monocytes % 14.3 %; Neutrophils # 2.33 10^3/uL (1.8-7.7); Neutrophils % 41.9 %; Nucleated Red Blood Cells % 0 %; Platelet Count 145 10^3/cmm (130-400); Red Blood Count 4.71 10^6/uL (4.1-5.3); Red Cell Distribution Width 13.1 % (12.1-15.1); White Blood Count 5.6 10^3/uL (4.0-10.0)
[2021-08-06 20:32] LABS: Alanine Aminotransferase 34 U/L (0-33); Albumin Level 3.7 g/dL (3.5-5.2); Alkaline Phosphatase 103 IU/L (35-105); Anion Gap 15.2 (5-19); Aspartate Amino Transferase 58 U/L (0-32); Blood Urea Nitrogen 10 mg/dL (6-20); Calcium 9.2 mg/dL (8.5-10.5); Carbon Dioxide 27 mmol/L (22-29); Chloride 98 mmol/L (98-107); Globulin 4.6 g/dL (1.3-4.6); Glomerular Filtration Rate 132.8 mL/min (90-130); Glucose 92 mg/dL (65-115); Osmolality Calculated 283 mOsm/kg (285-295); Potassium 3.2 mmol/L (3.5-5.1); Sodium 137 mmol/L (136-145); Total Bilirubin 0.8 mg/dL (0.15-1.2); Total Protein 8.3 g/dL (6.6-8.7); Troponin(5th) Baseline 26 ng/L (0-10)
[2021-08-06 20:33] LABS: Lactate (Lactic Acid level) 2.2 mmol/L (0.5-2.2)
[2021-08-06 20:43] VITALS: BP 157/101; PULSE 101; RESP 15; O2SAT 96
[2021-08-06 21:23] LABS: Acetaminophen < 5.0 ug/mL (10-30); Alcohol Level < 10 mg/dL (0-10); Salicylate < 0.3 mg/dL (3-10)
[2021-08-06] MEDS: acetaminophen 500 mg Tablet 1000 MG PO (21:43)
[2021-08-06] MEDS: ketorolac 30 mg/mL INJ 15 MG IVP (21:44)
--- NOTE | 2021-08-06 21:50 | ECG_ITS ---
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 Measurements Intervals [place] Rate: 105 P: 78 ID: 136 QRS: 74 QRSD: 100 T: 65 QT: 356 QTc: 472 Interpretive Statements SINUS TACHYCARDIA POSSIBLE LEFT ATRIAL ENLARGEMENT [-0.1mV P-WAVE IN V1/V2] Compared to ECG 10/17/2020 20:42:22 ST (T wave) deviation no longer present Electronically Signed On 08-07-2021 12:14:22 CDT by Oseas Junior M.D. [id number]
[2021-08-06 21:51] LABS: Add Urine Microscopic? NO; Charge for UA Resulting for Rev
[2021-08-06 21:56] LABS: Bilirubin Urine Neg (Negative); Blood Urine Neg (Negative); Glucose Urine UA Norm (Normal); Ketones Urine Negative (Negative); Leukocyte Esterase Urine Negative (Negative); Nitrate Urine Negative (Negative); Protein Urine Neg (Negative); Urine Appearance Clear (CLEAR); Urine Color Yellow (Yellow); Urobilinogen Urine Norm (Negative); pH Urine 7 (5-7)
[2021-08-06 22:09] LABS: Troponin 5 2HR 26.15 ng/L (0-10)
[2021-08-06 22:09] LABS: Amphetamines Screen Urine Positive (Negative); Barbiturates Screen Urine Negative (Negative); Benzodiazepines Screen Urine Negative (Negative); Cocaine Screen Urine Negative (Negative); Opiate Screen Urine Positive (Negative); PCP Screen Urine Negative (Negative); THC Screen Urine Negative (Negative)
[2021-08-06 22:30] VITALS: BP 145/93; PULSE 100; RESP 16; O2SAT 95
[2021-08-06 22:30] LABS: Troponin 5 2HR Delta 0.15 ABS# (0-10)
[2021-08-06] MEDS: potassium chloride ER 20 mEq Tablet 40 MEQ PO (23:01)
--- NOTE | 2021-08-06 23:06 | P.HP_ITS ---
Providers/Chief Complaint Primary Care Provider: Francisco Mckinley DO Chief Complaint: OD History of Present Illness The patient is a 45-year-old female who presents with chief complaint of overdose.? The patient previously has overdosed or at least has documentation of overdose.? Previous urine drug screens have consistently been positive for opiates and occasionally 4 amphetamine.? During my encounter with the patient, she is somnolent and minimally cooperative.? When I attempt to refocus her, she becomes hostile and starts using expletives at me.? When attempting to obtain history of present illness, the patient declines and states that she is already ?told other doctors?.? Upon exiting her room, she is observed by nursing staff yelling at me.? Unfortunately because of this, I am unable to obtain further history of present illness however it was conveyed to me by the emergency department that the patient was found to be in cardiac arrest in the field and required brief CPR and it administration of Narcan.? She presents for further evaluation Review of Systems General: Reports: 10 or more systems reviewed and unremarkable except in HPI and below Medications/Allergies Home Medications Medication Instructions Recorded Confirmed Last Taken Type gabapentin 100 mg capsule 100 mg PO BID 05/05/19 12/03/20 11/10/20 07:00 History naloxone 4 mg/actuation nasal See Rx Instructions .ROUTE .COMPLEX 05/05/19 12/03/20 Unknown History spray (Narcan) rifaximin 550 mg tablet (Xifaxan) 550 mg PO BID 06/06/19 12/03/20 11/10/20 07:00 History levothyroxine 50 mcg tablet 50 mcg PO QAM #30 tab 12/23/19 12/03/20 11/10/20 07:00 Rx amitriptyline 25 mg tablet 25 mg PO BEDTIME 10/17/20 12/03/20 11/09/20 History insulin glargine 100 unit/mL 30 unit SUBCUT BEDTIME 10/17/20 12/03/20 11/09/20 History subcutaneous solution (Lantus U-100 Insulin) lactulose 10 gram/15 mL oral 90 ml PO TID 10/17/20 12/03/20 11/10/20 07:00 History solution levetiracetam 750 mg tablet 750 mg PO BID 10/17/20 12/03/20 11/10/20 07:00 History pantoprazole 40 mg tablet,delayed 40 - 80 mg PO DAILY PRN 10/17/20 12/03/20 Unknown History release potassium chloride 20 mEq 20 meq PO QAM 10/17/20 12/03/20 11/10/20 07:00 History tablet,extended release(part/cryst) promethazine 25 mg tablet 25 mg PO TID PRN 10/17/20 12/03/20 11/10/20 07:00 History spironolactone 25 mg tablet 25 mg PO QAM 10/17/20 12/03/20 11/10/20 History sumatriptan succinate 50 mg tablet 50 mg PO Q2H PRN MDD 2 tabs 10/17/20 12/03/20 Unknown History (Imitrex) tizanidine 4 mg tablet 4 mg PO Q6H PRN 10/17/20 12/03/20 Unknown History albuterol sulfate 90 mcg/actuation 1 inh INHALATION Q6H PRN #8.5 g 10/20/20 12/03/20 Unknown Rx aerosol inhaler apixaban 5 mg (74 tabs) tablets in See Rx Instructions .ROUTE .COMPLEX 11/10/20 12/03/20 11/10/20 07:00 History a dose pack (Eliquis DVT-PE Treat 30D Start) aspirin 81 mg tablet,delayed 81 mg PO DAILY 11/10/20 12/03/20 Unknown History release furosemide 40 mg tablet 40 mg PO QAM 11/10/20 12/03/20 11/10/20 07:00 History hydromorphone 2 mg tablet 2 mg PO Q6H PRN MDD 4 TABS 11/10/20 12/03/20 11/10/20 07:00 History nicotine 14 mg/24 hr daily 1 patch TRANSDERMAL DAILY 11/10/20 12/03/20 11/10/20 History transdermal patch oxycodone 5 mg tablet 5 mg PO Q12H PRN 11/10/20 12/03/20 11/09/20 History tenofovir disoproxil fumarate 300 300 mg PO QAM 11/10/20 12/03/20 11/10/20 07:00 History mg tablet nicotine See Rx Instructions TRANSDERMAL 12/03/20 12/03/20 Unknown Rx 21mg/24hr-14mg/24hr-7mg/24hr daily .COMPLEX #56 patch transderm patches,sequentl amitriptyline 50 mg tablet 50 mg PO DAILY 02/19/21 02/19/21 Unknown History apixaban 5 mg tablet (Eliquis) 5 mg PO DAILY 02/19/21 02/19/21 Unknown History furosemide 40 mg tablet 40 mg PO BID 02/19/21 02/19/21 Unknown History gabapentin 100 mg capsule 100 mg PO BID 02/19/21 02/19/21 Unknown History hydromorphone 2 mg tablet 4 mg PO Q4H 02/19/21 02/19/21 Unknown History lamotrigine 200 mg tablet 200 mg PO DAILY 02/19/21 02/19/21 Unknown History levetiracetam 750 mg tablet 750 mg PO BID 02/19/21 02/19/21 Unknown History levothyroxine 50 mcg tablet 50 mcg PO DAILY 02/19/21 02/19/21 Unknown History lubiprostone 24 mcg capsule 24 mcg PO DAILY 02/19/21 02/19/21 Unknown History (Amitiza) metoclopramide HCl 10 mg tablet 10 mg PO DAILY 02/19/21 02/19/21 Unknown History ondansetron 4 mg disintegrating 4 mg PO Q6H PRN 02/19/21 02/19/21 Unknown History tablet pantoprazole 40 mg tablet,delayed 40 mg PO DAILY 02/19/21 02/19/21 Unknown History release potassium chloride 20 mEq 20 meq PO DAILY 02/19/21 02/19/21 Unknown History tablet,extended release promethazine 25 mg tablet 25 mg PO TID PRN 02/19/21 02/19/21 Unknown History rifaximin 550 mg tablet (Xifaxan) 550 mg PO BID 02/19/21 02/19/21 Unknown History spironolactone 25 mg tablet 25 mg PO DAILY 02/19/21 02/19/21 Unknown History tenofovir disoproxil fumarate 300 300 mg PO DAILY 02/19/21 02/19/21 Unknown History mg tablet glycopyrrolate 9 mcg-formoterol 2 puff INHALATION BID #10.7 g 04/11/21 Unknown Rx 4.8 mcg HFA aerosol inhaler (Bevespi Aerosphere) ondansetron 4 mg disintegrating 4 mg PO Q6H PRN #14 tab 05/24/21 Unknown Rx tablet Allergies Allergy/AdvReac Type Severity Reaction Status Date / Time codeine Allergy Unknown Unknown Verified 03/17/21 14:31 aspirin Allergy ALGY-Hives Verified 03/17/21 14:31 Sulfa (Sulfonamide Allergy ALGY-Swell Verified 03/17/21 14:31 Antibiotics) Lip/Tongue/Throat PFSH Acute PFSH: Medical History Chronic abdominal pain Chronic hepatitis B Chronic hip pain Cirrhosis Diabetes mellitus Encephalopathy Gastroesophageal reflux GI bleeding Hypertension Leg cramps Pelvic inflammatory disease Stomach cancer Surgical History H/O tubal ligation History of hysterectomy History of laparotomy Family History Mother Diabetes Father CAD (coronary artery disease) Other Cancer Social History Smoking and tobacco status: current every day smoker cigarettes Packs smoked per day: 2 Years cigarettes smoked: 26 [ Other cigarette details: currently trying to quit, smoking 7 cigarettes/day] Alcohol intake: never Vitals/I&O/Wt Last Vital Signs Temp 98.4 F 08/06/21 19:42 Pulse 100 08/06/21 22:30 Resp 16 08/06/21 22:30 BP 145/93 08/06/21 22:30 Pulse Ox 95 08/06/21 22:30 Weight last 48 hrs Weight 86.183 kg Physical Exam Narrative: General: -Alert -No acute distress -No dyspnea -No tachypnea Head: -Atraumatic -Normocephalic Eyes: -Pupils equally round and reactive to light and accommodation -Extraocular muscles intact Neurological: -Cranial nerves II-XII intact Neck: -No jugular venous distention -No thyromegaly -No cervical lymphadenopathy Heart: -Regular rate -Regular rhythm -No murmurs -No gallops -No rubs Lungs: -No wheeze -No rhonchi -No rales ? Abdomen: -Normal bowel sounds in all four quadrants -No rebound -No guarding -No tenderness Extremities: -2/4 pulse in all four extremities -No clubbing -No cyanosis -No edema -No calf tenderness present bilaterally -Negative Jose Eduardo?s sign bilaterally Musculoskeletal: -5/5 bilateral upper extremity strength -5/5 bilateral lower extremity strength -Sensorium of bilateral upper extremities are equal and intact -Sensorium of bilateral lower extremities are equal and intact ? Additional Details / Additional Findings / Exceptions / Miscellaneous: Data : 08/06/21 20:03 08/06/21 20:03 A&P Assessment and plan (1) Cardiac arrest: Status: Acute Plan drug overdose with resultant cardiac arrest. Urine drug screen is positive for opiates and amphetamine. Patient has had previous overdose. In the field she required brief CPR as well as administration of Narcan. Aspiration precautions. Neuro checks every 4 hours. Seizure precautions. IV normal saline 100 ML's per hour. Will monitor patient on telemetry and checks her cardiac enzymes Hepatitis B. Outpatient follow-up with infectious disease or gastroenterology upon discharge IBS Hypothyroidism Neuropathy Chronic pain History of DVT/PE Elevated troponin. I have a low index of suspicion for ACS. Troponins minimally elevated and is likely sequelae of CPR. Will monitor patient on telemetry and checks her cardiac enzymes. Recheck EKG on the morning of August 07, 2021 Muscle spasm History of migraine COPD Grade 1 diastolic dysfunction Coronary artery disease Diabetes. Will check fingerstick glucose 2 before meals and at bedtime and provide some slight scale GERD Hypertension Obesity. The patient will need to be counseled regarding lifestyle modification Smoker. The patient will need to be counseled regarding smoking cessation Cirrhosis with portal hypertension Hypokalemia. Will monitor potassium level intermittently and supplement as necessary Hepatic steatosis Documented history of gastric cancer. Outpatient follow-up with gastroenterology and/or hematology/oncology upon discharge as directed if the patient is still being monitored for this medical condition History of gastrointestinal bleed History of seizure. Seizure precautions Documented history of cervical cancer. Outpatient follow-up with obstetrics/gynecology and/or hematology/oncology upon discharge as directed Polysubstance abuse. The patient will need becomes regarding drug cessation DVT prophylaxis. 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
[2021-08-06 23:32] LABS: INR 1.04 (0.8-1.2)
[2021-08-06 23:45] VITALS: BP 148/97; PULSE 99; RESP 14; O2SAT 94
[2021-08-07] VITALS (38 sets, daily range): BP systolic 135–180; BP diastolic 88–122; PULSE 77–99; RESP 11–23; TEMP 36.9–37; O2SAT 92–97
[2021-08-07 00:44] LABS: Glucose Point of Care 106 mg/dL (70-110)
[2021-08-07] MEDS: potassium chloride ER 20 mEq Tablet 40 MEQ PO (00:49)
[2021-08-07] MEDS: sodium chloride 0.9% 1,000 ML 100 ML IV ×2 (00:49→13:02)
--- NOTE | 2021-08-07 01:50 | ECG_ITS ---
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 Measurements Intervals [place] Rate: 80 P: 78 [place]: 164 QRS: 63 QRSD: 100 T: 64 QT: 408 QTc: 471 Interpretive Statements SINUS RHYTHM LEFT ATRIAL ENLARGEMENT [-0.15mV P-WAVE IN V1/V2] Compared to ECG 08/06/2021 21:46:13 Sinus tachycardia no longer present Electronically Signed On 08-07-2021 12:13:45 CDT by Oseas Junior M.D. [id number]
[2021-08-07 03:33] LABS: Basophils % 0.5 %; Eosinophils # 0.3 10^3/uL (0.0-0.8); Eosinophils % 4.8 %; Hematocrit 39.6 % (37.0-47.0); Hemoglobin 13.3 g/dL (11.5-15.3); Lymphocytes % 35.7 %; Mean Corpuscular HGB Conc 33.6 g/dL (30.0-36.0); Mean Corpuscular Hemoglobin 30.2 pg (28.0-34.0); Mean Platelet Volume 11.2 fL (7.4-10.4); Monocytes # 0.9 10^3/uL (0.2-0.9); Monocytes % 15.2 %; Neutrophils # 2.47 10^3/uL (1.8-7.7); Neutrophils % 43.6 %; Nucleated Red Blood Cells % 0 %; Platelet Count 146 10^3/cmm (130-400); Red Cell Distribution Width 13.1 % (12.1-15.1); White Blood Count 5.7 10^3/uL (4.0-10.0)
[2021-08-07 04:01] LABS: Troponin 5 6HR 22.71 ng/L (0-10)
[2021-08-07 04:02] LABS: Troponin 5 6HR Delta -3.29 ng/L (0-12)
[2021-08-07 04:03] LABS: Alanine Aminotransferase 27 U/L (0-33); Albumin Level 3.1 g/dL (3.5-5.2); Alkaline Phosphatase 82 IU/L (35-105); Anion Gap 13.2 (5-19); Aspartate Amino Transferase 39 U/L (0-32); Blood Urea Nitrogen 9 mg/dL (6-20); Carbon Dioxide 26 mmol/L (22-29); Chloride 103 mmol/L (98-107); Globulin 3.4 g/dL (1.3-4.6); Glomerular Filtration Rate 171.8 mL/min (90-130); Glucose 99 mg/dL (65-115); Osmolality Calculated 287 mOsm/kg (285-295); Potassium 3.2 mmol/L (3.5-5.1); Sodium 139 mmol/L (136-145); Total Bilirubin 0.8 mg/dL (0.15-1.2); Total Protein 6.5 g/dL (6.6-8.7)
[2021-08-07 07:39] LABS: Glucose Point of Care 88 mg/dL (70-110)
--- NOTE | 2021-08-07 07:44 | USCV_ITS ---
Maribell Foreman Age: 45 Gender: F : 1975 Exam Date: 08/07/2021 08:29 Ordering Phys: Neftali Barrera MD Technologist: César Joshi Exam Location: [facility] [place] Indication: chest pain BP: 151 / 102 HR: 80 Rhythm: Sinus Technical Quality: Adequate MEASUREMENTS (Male / Female) Normal Values 2D ECHO LV Diastolic Diameter PLAX 4.1 cm 4.2 - 5.9 / 3.9 - 5.3 cm LV Systolic Diameter PLAX 2.9 cm IVS Diastolic Thickness 1.3 cm 0.6 - 1.0 / 0.6 - 0.9 cm IVS Systolic Thickness 1.6 cm LVPW Diastolic Thickness 1.4 cm 0.6 - 1.0 / 0.6 - 0.9 cm LVPW Systolic Thickness 1.6 cm LVOT Diameter 2.0 cm LV Ejection Fraction 2D Teich 57.1 % LV Ejection Fraction MOD 2C 62.5 % LV Ejection Fraction 2C AL 61.7 % LA Diameter 4.2 cm M-MODE Aortic Annulus Diameter 3.2 cm LA Ao Ratio MM 1.4 MV E Point Septal Separation 0.7 cm DOPPLER AV Peak Velocity 130.0 cm/s LVOT Peak Velocity 120.0 cm/s AV Area Cont Eq vti 3.3 cm squared AV Area Cont Eq pk 2.9 cm squared MV Area PHT 5.0 cm squared Mitral E to A Ratio 0.8 MV E' Velocity 61.5 cm/s Mitral E to MV E' Ratio 12.5 Mitral E to LV E' Lateral Ratio 11.1 Mitral E to LV E' Septal Ratio 14.5 TR Peak Velocity 186.3 cm/s TR Peak Gradient 13.9 mmHg TV Peak E Velocity 93.0 cm/s Right Atrial Pressure 3.0 mmHg Pulmonary Artery Systolic Pressu 16.9 mmHg PV Peak Velocity 120.0 cm/s FINDINGS Left Ventricle Normal left ventricular size. LV systolic function is normal with EF of 55-60%. No regional wall motion abnormalities. Moderate left ventricular hypertrophy.Grade 1 diastolic dysfunction Right Ventricle The right ventricle is normal in size and function. Right Atrium The right atrium is normal in size. Left Atrium The left atrium is normal in size. Mitral Valve Mild mitral annular calcification without significant stenosis or prolapse. There is mild mitral regurgitation. Aortic Valve Aortic valve is thickened without significant stenosis. There is no aortic regurgitation. Tricuspid Valve Structurally normal tricuspid valve without significant stenosis . Trace tricuspid regurgitation. Pulmonary artery systolic pressure is normal. Pulmonic Valve Structurally normal pulmonic valve without significant stenosis. There is no pulmonic regurgitation. Pericardium Normal pericardium without effusion. Aorta Normal ascending aorta dimension. IVC CONCLUSIONS LV systolic function is normal with EF of 55-60% Moderate left ventricular hypertrophy.Grade 1 diastolic dysfunction Mild mitral regurgitation Trace tricuspid regurgitation Compared to prior echocardiogram from 10/18/2020, no significant change is seen Oseas Junior MD (Electronically Signed) Final Date: 07 Aug 2021 18:23 S
--- NOTE | 2021-08-07 07:48 | USR_ITS ---
PROCEDURE INFORMATION: Exam: US Duplex Lower Extremity Veins, Bilateral Exam date and time: 08/07/2021 8:43 AM Age: 45 years old Clinical indication: Edema, localized; Lower extremity, bilateral; Additional info: Dvt TECHNIQUE: Imaging protocol: Real-time Duplex ultrasound of the bilateral extremities with 2-D villatoro scale, color Doppler flow and spectral waveform analysis with image documentation. Complete exam focused on the bilateral lower extremity veins. COMPARISON: CT chest abd pel wo con 08/06/2021 8:15 PM FINDINGS: Right deep veins: Unremarkable. The common femoral, femoral, proximal profunda femoral and popliteal veins are patent without thrombus. Normal Doppler waveforms. Normal compressibility and/or augmentation response. Right superficial veins: Saphenofemoral junction is patent without thrombus. Left deep veins: Unremarkable. The common femoral, femoral, proximal profunda femoral and popliteal veins are patent without thrombus. Normal Doppler waveforms. Normal compressibility and/or augmentation response. Left superficial veins: Saphenofemoral junction is patent without thrombus. Soft tissues: Unremarkable. US/CV venous duplex [facility] [id number] IMPRESSION: No evidence of deep vein thrombosis.
[2021-08-07 08:36] LABS: C Reactive Protein 6.1 mg/L (0.0-4.9); Magnesium 1.6 mg/dL (1.7-2.3); NT Pro B Type Natriuretic Pept 122 pg/mL (0-125); Phosphorus 3.8 mg/dL (2.5-4.5); Thyroid Stimulating Hormone 1.49 uIU/mL (0.27-4.20)
[2021-08-07 09:10] LABS: D Dimer 1.37 ug/mIFEU (0-0.59)
--- NOTE | 2021-08-07 09:16 | CTR_ITS ---
PROCEDURE INFORMATION: Exam: CTA Chest With Contrast Exam date and time: 08/07/2021 9:44 AM Age: 45 years old Clinical indication: Other: Cardiac arrest TECHNIQUE: Imaging protocol: Computed tomographic angiography of the chest with contrast. 3D rendering (Not supervised by radiologist): MIP and/or 3D reconstructed images were created by the technologist. Radiation optimization: All CT scans at this facility use at least one of these dose optimization techniques: automated exposure control; mA and/or kV adjustment per patient size (includes targeted exams where dose is matched to clinical indication); or iterative reconstruction. Contrast material: VISI 320; Contrast volume: 95 ml; Contrast route: INTRAVENOUS (IV); COMPARISON: CT angio chest w abd pel w con 11/10/2020 5:52 PM RADIATION DOSE METRICS: Total DLP (mGy-cm): 619.71 FINDINGS: Pulmonary arteries: Normal. No pulmonary emboli. Aorta: Unremarkable. No aortic aneurysm. No aortic dissection. Lungs: Calcified granulomas in the lungs bilaterally. Moderate centrilobular emphysema. Bibasilar atelectasis. Few faint ground-glass opacities are noted in the left lower lobe, similar to 08/06/2021. Pleural spaces: Unremarkable. No pneumothorax. No pleural effusion. Heart: Unremarkable. No cardiomegaly. No pericardial effusion. Lymph nodes: Unremarkable. No enlarged lymph nodes. Liver: Cirrhotic morphology of liver. Bones/joints: Unremarkable. No acute fracture. Soft tissues: Small fat containing ventral abdominal hernia in the epigastric region. CT/CT angio chest PE protcl [id number] IMPRESSION: 1. No pulmonary emboli identified. 2. There are few faint ground-glass opacities in the left lower lobe, which could reflect sequela of aspiration or infection.
[2021-08-07] MEDS: iodixanol 320 mg/mL 100mL Btl IV (09:50)
[2021-08-07 12:50] LABS: Glucose Point of Care 96 mg/dL (70-110)
[2021-08-07] MEDS: piperacillin-tazobactam 3.375 GM in sodium chloride 0.9% (plus) 50 ML IV ×2 (13:03→20:30)
--- NOTE | 2021-08-07 13:42 | P.PN_ITS ---
Subjective Subjective: Patient was seen this morning, she is very tearful, she tells me she will never take fentanyl again, she lives in [place], lives behind her mother, recently she has been having a lot of pain, so she brought fentanyl off the street, and took it under her tongue, and azelastine she can remember, she does use pain medications, she does report a history of pulm embolism she is does have a history of liver cirrhosis, on Eliquis, history of hep C, Vitals/I&O/Wt Last Vital Signs Temp 98.5 F 08/07/21 04:00 Pulse 81 08/07/21 10:00 Resp 16 08/07/21 10:00 BP 165/104 08/07/21 10:00 Pulse Ox 97 08/07/21 10:00 08/06/21 08/07/21 08/07/21 22:59 06:59 14:59 Intake Total 120 / 120 1000 / 1000 Balance 120 / 120 1000 / 1000 Weight last 48 hrs Weight 86.183 kg Physical Exam Const: COMMON NORMALS: no acute distress and patient oriented x3 Resp: COMMON NORMALS: normal respiratory effort, No retractions, No use of accessory muscles and clear to auscultation bilaterally AUSCULTATION: clear to auscultation bilaterally Cardio: COMMON NORMALS: regular rate, regular rhythm, S1 normal heart sound present and S2 normal heart sound present RATE: regular rate RHYTHM: regular rhythm HEART SOUNDS: S1 normal heart sound present and S2 normal heart sound present GI: COMMON NORMALS: Normal to inspection, nondistended, normoactive bowel sounds present, Soft to palpation and non-tender PALPATION: Yes Soft to palpation Extremity: COMMON NORMALS: no pedal edema Neuro: COMMON NORMALS: patient oriented x3 Psych: COMMON NORMALS: mental status grossly normal Data : 08/07/21 02:30 08/07/21 02:30 A&P Assessment and plan (1) Cardiac arrest: Status: Acute (2) Accidental fentanyl overdose: Status: Acute (3) COPD (chronic obstructive pulmonary disease): Status: Acute Qualifiers: COPD type: unspecified COPD Qualified Code(s): J44.9 - Chronic ob structive pulmonary disease, unspecified (4) Thrombocytopenia: Status: Acute (5) Bilateral pulmonary embolism: Status: Acute (6) Hepatitis B: Status: Acute (7) Cirrhosis: Status: Chronic Qualifiers: Hepatic cirrhosis type: other cirrhosis Qualified Code(s): K74.69 - Other cirrhosis of liver Plan drug overdose with resultant cardiac arrest. Admits to fentanyl use, urine drug screen is positive for opiates and amphetamine. Patient has had previous overdose. In the field she required brief CPR as well as administration of Narcan. Aspiration precautions. Neuro checks every 4 hours. Seizure precautions. IV normal saline 100 ML's per hour. Will monitor patient on tel emetry and checks her cardiac enzymes -Is complaining of substernal chest pain, likely due to CPR, he is morphine 1 mg every 4 hours as needed -We will need to discuss in the morning with her pharmacy, which physician gives her pain medications, so we can alert alert them about drug overdose and patient using fentanyl, -CT angiogram of the chest, cardiac echo -Start Zosyn for possible aspiration pneumonia -We will do HIV, acute hepatitis, RPR History of hepatitis hepatitis B, History of hepatitis C History of portal hypertension with splenorenal varices, history of upper GI bleed associate with duodenal ulcer, history of hepatic encephalopathy -History of liver cirrhosis, splenorenal varices, upper GI bleed suspect perforated duodenal ulcer, no history of esophageal varices -Continue lactulose, rifaximin Hypothyroidism, continue home levothyroxine Neuropathy Chronic pain, will clarify with pharmacy if she is using oxycodone or Dilaudid History of DVT/PE, resume Eliquis Elevated troponin. I have a low index of suspicion for ACS. Troponins minimally elevated and is likely sequelae of CPR. Continue telemetry monitoring Muscle spasm History of migraine COPD Grade 1 diastolic dysfunction Coronary artery disease Diabetes. Will check fingerstick glucose 2 before meals and at bedtime and provide some slight scale GERD Hypertension Obesity. The patient will need to be counseled regarding lifestyle modification Smoker. The patient will need to be counseled regarding smoking cessation Cirrhosis with portal hypertension Hypokalemia. Will monitor potassium level intermittently and supplement as necessary Hepatic steatosis History of gastrointestinal bleed History of seizure. Seizure precautions Documented history of cervical cancer. Outpatient follow-up with obstetrics/gynecology and/or hematology/oncology upon discharge as directed Polysubstance abuse. The patient will need becomes regarding drug cessation DVT prophylaxis. Bilateral SCD Attestations Medical Necessity Statement*: Patient requires hospitalization, inpatient, greater than 2 midnights, for fentanyl overdose, cardiac arrest, aspiration pneumonia, Coding Level of Care Code Acute Program Review Director for [facility] Fwd Diagnoses Cardiac arrest I46.9 Accidental fentanyl overdose T40.411A COPD (chronic obstructive pulmonary disease) J44.9 COPD type: unspecified COPD Thrombocytopenia D69.6 Bilateral pulmonary embolism I26.99 Hepatitis B B19.10 Cirrhosis K74.69 Hepatic cirrhosis type: other cirrhosis
[2021-08-07] MEDS: morphine 4 mg/mL SDV 1 mL 1 MG IVP ×2 (14:22→20:32)
[2021-08-07] MEDS: lactulose oral liq 20 gm/30 mL UDC 30 GM PO ×2 (14:25→20:29)
[2021-08-07] MEDS: magnesium sulfate premix 4 GM/100 ML PREMIX IV (14:37)
[2021-08-07 15:22] LABS: Rapid Plasma Reagin Syphilis Nonreactive (Nonreactive)
[2021-08-07 15:52] LABS: HIV 1 & 2 Antigen Non-Reactive (Non-Reactiv)
[2021-08-07 15:53] LABS: HIV 1 & 2 Antibody Non-Reactive (Non-Reactiv)
[2021-08-07 15:56] LABS: Hepatitis A Antibody IgM Non-Reactive (Nonreactive); Hepatitis B Core IgM Non-Reactive (Nonreactive); Hepatitis C Virus Antibody Reactive (Nonreactive)
[2021-08-07 17:24] LABS: Hepatitis B Surface Antigen Reactive (Nonreactive)
[2021-08-07] MEDS: levETIRAcetam 500 mg Tablet 750 MG PO (17:43)
[2021-08-07] MEDS: gabapentin 100 mg Capsule PO (17:43)
[2021-08-07 17:53] LABS: Glucose Point of Care 101 mg/dL (70-110)
[2021-08-07] MEDS: apixaban 5 mg Tablet PO (20:30)
[2021-08-07] MEDS: amitriptyline 25 mg Tablet PO (20:30)
[2021-08-07 21:56] LABS: Glucose Point of Care 98 mg/dL (70-110)
[2021-08-08] VITALS (12 sets, daily range): BP systolic 141–165; BP diastolic 82–99; PULSE 79–91; RESP 14–28; TEMP 36.9; O2SAT 93–97
[2021-08-08] MEDS: sodium chloride 0.9% 1,000 ML 100 ML IV (00:32)
[2021-08-08 03:39] LABS: INR 1.15 (0.8-1.2)
[2021-08-08 03:59] LABS: Alanine Aminotransferase 24 U/L (0-33); Albumin Level 2.8 g/dL (3.5-5.2); Alkaline Phosphatase 83 IU/L (35-105); Blood Urea Nitrogen 8 mg/dL (6-20); C Reactive Protein 5.7 mg/L (0.0-4.9); Calcium 7.3 mg/dL (8.5-10.5); Carbon Dioxide 26 mmol/L (22-29); Chloride 106 mmol/L (98-107); Creatine Phosphokinase 108 U/L (26-192); Glomerular Filtration Rate 171.8 mL/min (90-130); Glucose 105 mg/dL (65-115); Magnesium 1.7 mg/dL (1.7-2.3); Osmolality Calculated 293 mOsm/kg (285-295); Phosphorus 3.2 mg/dL (2.5-4.5); Sodium 142 mmol/L (136-145); Total Bilirubin 0.8 mg/dL (0.15-1.2); Total Protein 5.8 g/dL (6.6-8.7)
[2021-08-08 04:01] LABS: Anion Gap 13.5 (5-19)
[2021-08-08 04:02] LABS: Aspartate Amino Transferase 47 U/L (0-32); Potassium 3.5 mmol/L (3.5-5.1)
[2021-08-08 04:22] LABS: NT Pro B Type Natriuretic Pept 218 pg/mL (0-125)
[2021-08-08] MEDS: piperacillin-tazobactam 3.375 GM in sodium chloride 0.9% (plus) 50 ML IV (05:05)
[2021-08-08] MEDS: levothyroxine 50 mcg Tablet PO (05:05)
[2021-08-08 06:14] LABS: Basophils % 0.5 %; Eosinophils # 0.3 10^3/uL (0.0-0.8); Eosinophils % 6.4 %; Hematocrit 36.5 % (37.0-47.0); Hemoglobin 12.3 g/dL (11.5-15.3); Lymphocytes # 1.9 10^3/uL (0.8-4.8); Lymphocytes % 43.4 %; Mean Corpuscular HGB Conc 33.7 g/dL (30.0-36.0); Mean Corpuscular Hemoglobin 30.5 pg (28.0-34.0); Mean Corpuscular Volume 90.6 fl (81-99); Mean Platelet Volume 10.8 fL (7.4-10.4); Monocytes # 0.6 10^3/uL (0.2-0.9); Monocytes % 14.5 %; Neutrophils # 1.54 10^3/uL (1.8-7.7); Nucleated Red Blood Cells % 0 %; Platelet Count 130 10^3/cmm (130-400); Red Blood Count 4.03 10^6/uL (4.1-5.3); Red Cell Distribution Width 12.8 % (12.1-15.1); White Blood Count 4.4 10^3/uL (4.0-10.0)
[2021-08-08 07:22] LABS: Glucose Point of Care 94 mg/dL (70-110)
[2021-08-08] MEDS: FUROsemide 40 mg Tablet PO (07:42)
[2021-08-08] MEDS: gabapentin 100 mg Capsule PO (08:14)
[2021-08-08] MEDS: levETIRAcetam 500 mg Tablet 750 MG PO (08:14)
[2021-08-08] MEDS: aspirin 81 mg EC Tablet PO (08:14)
[2021-08-08] MEDS: apixaban 5 mg Tablet PO (08:14)
[2021-08-08] MEDS: spironolactone 25 mg Tablet PO (08:15)
[2021-08-08] MEDS: morphine 4 mg/mL SDV 1 mL 1 MG IVP (08:19)
--- NOTE | 2021-08-08 10:15 | PC.CHAP ---
Pastoral Care Encounter/Spiritual Assessment Type of Contact [] Declined machine cloth trimmer visit [] Patient/Family/Request visit [] Outpatient visit [] Follow-up visit [] Physician referral [] Code/Alert [x] Routine visit [] Staff referral [] Actively dying [] Patient sleeping [] Family support [] [] Out of room [] Palliative care [] [x] Receiving care in room [] Pre-surgical visit [] Trauma [] Long length of stay [x] ICU visit [] Other: Relational/Emotional Strength [] Patient feels connected with others/family/visitors/staff [] Distress [] Loneliness/isolation [] Abandonment Spirituality of Patient [] Person of Amaya [] Attends Gnosticism of their Amaya [] Believes in Prayer [] Reads Bible or Cheondoism materials [] There are Spiritual issues to be addressed Armature Winder Interventions [x] Prayer [] Active listening [] Non-anxious presence [] Spiritual/emotional support [] Crisis/trauma care [] Spiritual counseling [] Bereavement support [] Provided bereavement packet [] Provided Bible/devotional materials [] Provided toy/stuffed animal, coloring book to patient or family member [] Provided Communion [] Anointing/Cullen [] Salvation [x] Completed spiritual assessment [] Other: Impact on Illness or Injury [] Angry [] Fearful [] Anxious [] Often cries [] Exhaustion [] Unable to work [] Unable to attend uatsdin [] Unable to walk/stand [] Unable to read [] Unable to drive [] Unable to eat/drink [] Unable to sleep [] Unable to be with family [] Patient intubated [] Other: Summary Time spent with patient
--- NOTE | 2021-08-08 10:33 | PM.DCS ---
Discharge Providers Date of Admission: 08/07/21 00:07 Date of Discharge: August 08, 2021 Attending Provider at Admission: Deja Page DO Attending Provider at Discharge: Mao Del Rosario Primary Care Provider: Francisco Mckinley DO Diagnoses at Discharge Discharge Diagnosis (1) Cardiac arrest: Status: Acute (2) Accidental fentanyl overdose: Status: Acute (3) COPD (chronic obstructive pulmonary disease): Status: Acute Qualifiers: COPD type: unspecified COPD Qualified Code(s): J44.9 - Chronic obstructive pulmonary disease, unspecified (4) Thrombocytopenia: Status: Acute (5) Bilateral pulmonary embolism: Status: Acute (6) Hepatitis B: Status: Acute (7) Cirrhosis: Status: Chronic Qualifiers: Hepatic cirrhosis type: other cirrhosis Qualified Code(s): K74.69 - Other cirrhosis of liver Reason for Visit Reason for Visit: OD Hospital Course Hospital Course 45-year-old lady with past history of PE, on anticoagulation, end-stage liver disease, chronic otitis, B, C, COPD, diabetes, was admitted after cardiopulmonary arrest after overdose after breaking open capsule of what she thought was fentanyl. She required CPR performed by EMS. Obtained ROSC with Narcan and supplemental O2. Subsequent vomiting. Treated with empiric antibiotic for possible aspiration pneumonia. Chest CT abdomen pelvis obtained on presentation with limited assessment with noncontrast days, but no acute abnormality demonstrated. CT head without acute abnormality. CT angiogram chest without PE, few faint Giurgius bacitracin left lower lobe possibly sequela of aspiration or infection. Venous duplex ultrasound bilateral lower extremities without DVT. She was also assessed by TTE which showed normal ejection fraction, grade 1 diastolic dysfunction. Mild mitral regurgitation. Trace tricuspid regurgitation. Other cardiac studies included troponin series, EKG which were not suggestive of acute TX on presentation. TSH normal. Hepatitis B surface antigen and hepatitis C antibody reactive. HCVRNA was requested and pending. HIV nonreactive. Please follow-up regarding hepatitis consider follow-up with hepatology, ID. She is still having some chest wall soreness, but otherwise doing better, maintaining saturations on room air. She states she is not going to take any other medications that are not prescribed to her. Continue follow-up regarding chronic conditions. For now Eliquis is continued given recent immobilization, however, consider whether still needs to continue long-term after recovers from the current episode of illness. States that seems her family could not find her intranasal Narcan, and so she is given the first prescription for this as well. Physical Exam Const: COMMON NORMALS: alert GENERAL APPEARANCE: cooperative ORIENTATION/CONSCIOUSNESS: Yes awake HENMT: COMMON NORMALS: normocephalic, EAC's normal, Normal external nose present and moist oral mucous membranes HEAD & SCALP: normocephalic NOSE: Normal external nose present EXTERNAL AUDITORY CANAL: EAC's normal Neck/C-Spine: COMMON NORMALS: no meningeal signs Chest: CHEST: Yes Symmetrical chest wall rise Resp: COMMON NORMALS: clear to auscultation bilaterally AUSCULTATION: clear to auscultation bilaterally Cardio: COMMON NORMALS: regular rate, regular rhythm and No murmurs present (Cardio) RATE: regular rate RHYTHM: regular rhythm GI: COMMON NORMALS: Normal to inspection, nondistended, normoactive bowel sounds present, Soft to palpation and non-tender PALPATION: Yes Soft to palpation Extremity: COMMON NORMALS: no pedal edema Neuro: COMMON NORMALS: moves all extremities SENSORIUM/ORIENTATION: Yes alert MENINGEAL SIGNS: Yes no meningeal signs Psych: COMMON NORMALS: mental status grossly normal Skin: COMMON NORMALS: no wounds RASHES: no rashes Discharge Data Studies Completed and Pending Completed Studies During Hospitalization Category Date Time Status CT angio chest PE protcl [id number] Routine Cat Scan 08/07/21 09:[address] chest abdomen pelvis [CT chest abd pel wo con] Stat Cat Scan 08/06/21 19:[address] head wo con* [id number] Urgent Cat Scan 08/06/21 19:49 [place] [id number] Routine Ultrasound 08/07/21 07:48 Completed CV. echo complete* [id number] Routine Ultrasound 08/07/21 07:44 Completed Pending at discharge Category Date Time Status C Reactive Protein AM LABS Lab 08/09/21 04:00 Ordered C Reactive Protein AM LABS Lab 08/10/21 04:00 Ordered Complete Blood Count w/Auto AM LABS Lab 08/09/21 04:00 Ordered Complete Blood Count w/Auto AM LABS Lab 08/10/21 04:00 Ordered Comprehensive Metabolic Panel AM LABS Lab 08/09/21 04:00 Ordered Comprehensive Metabolic Panel AM LABS Lab 08/10/21 04:00 Ordered Creatine Phosphokinase AM LABS Lab 08/09/21 04:00 Ordered Creatine Phosphokinase AM LABS Lab 08/10/21 04:00 Ordered Hepatitis C RNA Viral Load Qnt Routine Lab 08/07/21 17:24 Received Magnesium AM LABS Lab 08/09/21 04:00 Ordered Magnesium AM LABS Lab 08/10/21 04:00 Ordered Miscellaneous Test Routine Lab 08/07/21 14:07 Received NT Pro B Type Natriuretic Pept QAM Lab 08/09/21 06:00 Ordered NT Pro B Type Natriuretic Pept QAM Lab 08/10/21 06:00 Ordered Phosphorus AM LABS Lab 08/09/21 04:00 Ordered Phosphorus AM LABS Lab 08/10/21 04:00 Ordered Prothrombin Time INR AM LABS Lab 08/09/21 04:00 Ordered Prothrombin Time INR AM LABS Lab 08/10/21 04:00 Ordered Radiology Impressions Chest/Abdomen/Pelvis CT 08/06/21 19:49 IMPRESSION: 1. Assessment of the soft tissues and the vascular structures is limited due to use of noncontrast technique. 2. No acute abnormality demonstrated. IMPRESSION: 1. Assessment of the solid organs and the vascular structures is limited due to use of noncontrast technique. 2. No acute abnormality demonstrated in the abdomen and pelvis. Head CT 08/06/21 19:49 IMPRESSION: No acute intracranial abnormality. Venous Duplex 08/07/21 07:48 IMPRESSION: No evidence of deep vein thrombosis. Chest CTA 08/07/21 09:16 IMPRESSION: 1. No pulmonary emboli identified. 2. There are few faint ground-glass opacities in the left lower lobe, which could reflect sequela of aspiration or infection. Laboratory Results WBC 4.4 10^3/uL (4.0-10.0) 08/08/21 06:05 Corrected WBC Cancelled 08/08/21 02:50 RBC 4.03 10^6/uL (4.1-5.3) L 08/08/21 06:05 Hgb 12.3 g/dL (11.5-15.3) 08/08/21 06:05 Hct 36.5 % (37.0-47.0) L 08/08/21 06:05 MCV 90.6 fl (81-99) 08/08/21 06:05 MCH 30.5 pg (28.0-34.0) 08/08/21 06:05 MCHC 33.7 g/dL (30.0-36.0) 08/08/21 06:05 RDW 12.8 % (12.1-15.1) 08/08/21 06:05 Plt Count 130 10^3/cmm (130-400) 08/08/21 06:05 MPV 10.8 fL (7.4-10.4) H 08/08/21 06:05 Gran % Cancelled 08/08/21 02:50 Neut % (Auto) 35.0 % 08/08/21 06:05 Lymph % (Auto) 43.4 % 08/08/21 06:05 [place] % (Auto) 14.5 % 08/08/21 06:05 Eos % (Auto) 6.4 % 08/08/21 06:05 Baso % (Auto) 0.5 % 08/08/21 06:05 Neut # (Auto) 1.54 10^3/uL (1.8-7.7) L 08/08/21 06:05 Lymph # (Auto) 1.9 10^3/uL (0.8-4.8) 08/08/21 06:05 [place] # (Auto) 0.6 10^3/uL (0.2-0.9) 08/08/21 06:05 Eos # (Auto) 0.3 10^3/uL (0.0-0.8) 08/08/21 06:05 Baso # (Auto) 0.0 10^3/uL (0.0-0.1) 08/08/21 06:05 Absolute Gran (auto) Cancelled 08/08/21 02:50 Nucleated RBC % (auto) 0 % 08/08/21 06:05 Nucleated RBCs # 0.0 /100WBC 08/08/21 06:05 PT 15.00 SECONDS (12.1-14.9) H 08/08/21 02:50 INR 1.15 (0.8-1.2) 08/08/21 02:50 D-Dimer 1.37 ug/mIFEU (0-0.59) H 08/07/21 08:20 Sodium 142 mmol/L (136-145) 08/08/21 02:50 Potassium 3.5 mmol/L (3.5-5.1) 08/08/21 02:50 Chloride 106 mmol/L (98-107) 08/08/21 02:50 Carbon Dioxide 26 mmol/L (22-29) 08/08/21 02:50 Anion Gap 13.5 (5-19) 08/08/21 02:50 BUN 8 mg/dL (6-20) 08/08/21 02:50 Creatinine 0.4 mg/dL (0.5-0.9) L 08/08/21 02:50 GFR Calculation 171.8 mL/min (90-130) H 08/08/21 02:50 Glucose 105 mg/dL (65-115) 08/08/21 02:50 POC Glucose 94 mg/dL (70-110) 08/08/21 07:18 Calculated Osmolality 293 mOsm/kg (285-295) 08/08/21 02:50 Lactate 2.2 mmol/L (0.5-2.2) 08/06/21 20:03 Calcium 7.3 mg/dL (8.5-10.5) L 08/08/21 02:50 Phosphorus 3.2 mg/dL (2.5-4.5) 08/08/21 02:50 Magnesium 1.7 mg/dL (1.7-2.3) 08/08/21 02:50 Total Bilirubin 0.8 mg/dL (0.15-1.2) 08/08/21 02:50 AST 47 U/L (0-32) H 08/08/21 02:50 ALT 24 U/L (0-33) 08/08/21 02:50 Alkaline Phosphatase 83 IU/L (35-105) 08/08/21 02:50 Creatine Kinase 108 U/L (26-192) 08/08/21 02:50 Troponin T Baseline 26 ng/L (0-10) H 08/06/21 20:03 Troponin T 120 Minute 26.15 ng/L (0-10) H 08/06/21 21:48 Delta Troponin T 0.15 ABS# (0-10) 08/06/21 21:48 Troponin T Hi Sens 6Hr 22.71 ng/L (0-10) H 08/07/21 02:30 Troponin T Hi Sens 6Hr Delta -3.29 ng/L (0-12) L 08/07/21 02:30 C-Reactive Protein 5.7 mg/L (0.0-4.9) H 08/08/21 02:50 NT-Pro-B Natriuret Pep 218 pg/mL (0-125) H 08/08/21 02:50 Total Protein 5.8 g/dL (6.6-8.7) L 08/08/21 02:50 Albumin 2.8 g/dL (3.5-5.2) L 08/08/21 02:50 Globulin 3.0 g/dL (1.3-4.6) 08/08/21 02:50 TSH 1.49 uIU/mL (0.27-4.20) 08/07/21 02:30 Urine Color Yellow (Yellow) 08/06/21 21:42 Urine Appearance Clear (CLEAR) 08/06/21 21:42 Urine pH 7 (5-7) 08/06/21 21:42 Ur Specific [place] 1.010 (1.005-1.030) 08/06/21 21:42 Urine Protein Neg (Negative) 08/06/21 21:42 Urine Glucose (UA) Norm (Normal) 08/06/21 21:42 Urine Ketones Negative (Negative) 08/06/21 21:42 Urine Blood Neg (Negative) 08/06/21 21:42 Urine Nitrate Negative (Negative) 08/06/21 21:42 Urine Bilirubin Neg (Negative) 08/06/21 21:42 Urine Urobilinogen Norm mg/dL (Negative) 08/06/21 21:42 Ur Leukocyte Esterase Negative (Negative) 08/06/21 21:42 Salicylates < 0.3 mg/dL (3-10) L 08/06/21 20:03 Urine Opiates Screen Positive ng/mL (Negative) H 08/06/21 21:42 Acetaminophen < 5.0 ug/mL (10-30) L 08/06/21 20:03 Ur Barbiturates Screen Negative ng/mL (Negative) 08/06/21 21:42 Ur Phencyclidine Scrn Negative ng/mL (Negative) 08/06/21 21:42 Ur Amphetamines Screen Positive ng/mL (Negative) H 08/06/21 21:42 U Benzodiazepines Scrn Negative ng/mL (Negative) 08/06/21 21:42 Urine Cocaine Screen Negative ng/mL (Negative) 08/06/21 21:42 U Marijuana (THC) Screen Negative ng/mL (Negative) 08/06/21 21:42 Ethyl Alcohol < 10 mg/dL (0-10) 08/06/21 20:03 RPR Nonreactive (Nonreactive) 08/07/21 14:07 Hepatitis A IgM Ab Non-reactive (Nonreactive) 08/07/21 14:07 Hep Bs Antigen Reactive (Nonreactive) H 08/07/21 14:07 Hep B Core IgM Ab Non-reactive (Nonreactive) 08/07/21 14:07 Hepatitis C Antibody Reactive (Nonreactive) H 08/07/21 14:07 HIV 1&2 Ab & HIV 1 Ag Non-reactive (Non-Reactiv) 08/07/21 14:07 HIV 1&2 Antibody Non-reactive (Non-Reactiv) 08/07/21 14:07 Misc Test Reference Cancelled 08/07/21 14:07 Vitals Last Vital Signs Temp 98.4 F 08/08/21 00:00 Pulse 79 08/08/21 09:00 Resp 14 08/08/21 09:00 BP 152/93 08/08/21 09:00 Pulse Ox 97 08/08/21 08:19 Discharge Plan Discharge Patient Disposition: Home Condition: Stable Prescriptions: New amoxicillin-pot clavulanate 875-125 mg tablet 1 tab PO BID 4 Days Qty: 8 0RF Continued Xifaxan 550 mg tablet 550 mg PO BID 0RF levothyroxine 50 mcg tablet 50 mcg PO QAM Qty: 30 0RF Rx Instructions: needs an appt with labs before more refills Bevespi Aerosphere 9-4.8 mcg HFA aerosol inhaler 2 puff inhalation BID Qty: 10.7 3RF Lantus U-100 Insulin 100 unit/mL solution 40 unit SUBCUT BEDTIME 0RF tizanidine 4 mg tablet 4 mg PO Q6H PRN (Reason: Muscle Spasm) 0RF sumatriptan succinate [Imitrex] 50 mg Tablet 50 mg PO Q2H MDD 2 tabs PRN (Reason: Migraine Headache) 0RF spironolactone 25 mg tablet 25 mg PO QAM 0RF potassium chloride 20 mEq tablet,ER particles/crystals 20 meq PO QAM 0RF amitriptyline 25 mg tablet 25 mg PO BEDTIME 0RF levetiracetam 750 mg tablet 750 mg PO BID 0RF lactulose 10 gram/15 mL solution 90 ml PO TID PRN (Reason: Constipation) 0RF pantoprazole 40 mg tablet,delayed release (DR/EC) 40 - 80 mg PO DAILY PRN (Reason: Acid Reflux) 0RF albuterol sulfate 90 mcg/actuation HFA aerosol inhaler 1 inh inhalation Q6H PRN (Reason: shortness of breath or wheezing) Qty: 8.5 0RF aspirin 81 mg Tablet,Delayed Release (Dr/Ec) 81 mg PO DAILY 0RF oxycodone 5 mg tablet 5 mg PO Q12H PRN (Reason: Pain) 0RF tenofovir disoproxil fumarate 300 mg tablet 300 mg PO QAM 0RF lamotrigine 200 mg Tablet 200 mg PO DAILY 0RF hydromorphone 2 mg Tablet 4 mg PO Q8H PRN (Reason: Pain) 0RF metoclopramide HCl 10 mg Tablet 10 mg PO DAILY 0RF lubiprostone [Amitiza] 24 mcg Capsule 24 mcg PO DAILY 0RF Eliquis 5 mg Tablet 5 mg PO DAILY 0RF gabapentin 300 mg capsule 300 mg PO BID 0RF Creon 3,000-9,500- 15,000 unit capsule,delayed release(DR/EC) 1 cap PO TID 0RF Narcan 4 mg/actuation spray,non-aerosol See Rx Instructions .ROUTE .COMPLEX Qty: 1 0RF Rx Instructions: as directed intranasally prn Changed furosemide 40 mg tablet 80 mg PO TID PRN (Reason: Abdominal Distention) Qty: 0 0RF Discharge Orders: Discharge Order (Routine); Ordered 08/08/21 Ordered By: Mao Del Rosario Referrals: Francisco Mckinley DO [Primary Care Provider] - 08/12/21 10:40 am Patient Instructions: Amoxicillin/Clavulanate Potassium (By mouth), Naloxone (Into the nose), Opioid Safety Activity Restrictions/Additional Instructions: Discuss with your primary regarding cardiac arrest and hospitalization. Your primary doctor follow-up on your breathing due to possible aspiration pneumonia. Avoid any recreational drug use due to risk of overdose, severe disability or . Please teach her family to use the and in case of overdose. Discuss with your primary doctor also regarding hepatitis B, C, discuss follow-up with infectious disease and gastroenterology. Continue follow-up regarding other chronic conditions. Discharge Attestations Time Spent in Discharge Care*: greater than 30 min Quality Metrics Clinical Quality Measures [ No reported AMI, CVA or VTE this stay] Coding Level of Care Code Acute Chg FW DC note Diagnoses Cardiac arrest I46.9 Accidental fentanyl overdose T40.411A COPD (chronic obstructive pulmonary disease) J44.9 COPD type: unspecified COPD Thrombocytopenia D69.6 Bilateral pulmonary embolism I26.99 Hepatitis B B19.10 Cirrhosis K74.69 Hepatic cirrhosis type: other cirrhosis
--- NOTE | 2021-08-08 11:43 | PC.NURSE ---
Patient educated on all D/C instructions, signed D/C paperwork. JAMIL at this time transported by mother
[2021-08-10 20:58] LABS: HEP C RNA Viral Load Quant <1.18 NOT DETECTED Log IU/mL (NOT DETECTED); HEP C RNA Viral Load Quant <15 NOT DETECTED IU/mL (NOT DETECTED)
[2021-08-11 11:47] LABS: Miscellaneous Test SEE COMMENTS
== END 2021-08-08 11:44 | disposition home or self-care (01) ==
LOC: ER 22:41 → ICU 08-07 05:07
PROVIDERS: Family Medicine; Admitting Provider Internal Medicine; Emergency Provider Emergency Medicine; PCP Family Medicine; Visit Provider Internal Medicine
DX: I46.9 Cardiac arrest, cause unspecified (principal); T40.411A Poisoning by fentanyl or fentanyl analogs, accidental (unintentional), initial encounter; J44.9 Chronic obstructive pulmonary disease, unspecified; D69.6 Thrombocytopenia, unspecified; I26.99 Other pulmonary embolism without acute cor pulmonale; B19.10 Unspecified viral hepatitis B without hepatic coma; K74.69 Other cirrhosis of liver; Z86.711 Personal history of pulmonary embolism; Z79.01 Long term (current) use of anticoagulants; Z86.19 Personal history of other infectious and parasitic diseases; E03.9 Hypothyroidism, unspecified; I25.10 Atherosclerotic heart disease of native coronary artery without angina pectoris; E66.9 Obesity, unspecified; Z68.30 Body mass index [BMI] 30.0-30.9, adult; R60.0 Localized edema; F17.210 Nicotine dependence, cigarettes, uncomplicated; E11.9 Type 2 diabetes mellitus without complications; I10 Essential (primary) hypertension
CPT/HCPCS: 36415; 36416; 70450; 71250; 71275; 74176; 80053; 80074; 80306; 80307; 81003; 82550; 82962; 83605; 83735; 83880; 84100; 84443; 84484; 85025; 85378; 85610; 86140; 86592; 87522; 87806; 93005; 93306; 93970; 96365; 96367; 96375; 97161; 97165; 97535; 99285; G0378; J1885; J2270; J2543; J3475; J7030; Q9967

== ENCOUNTER 2021-10-22 22:37 | Emergency (ER) | payer MEDICAID, SELFPAY ==
[2021-10-22 22:40] VITALS: BP 95/73; PULSE 71; RESP 16; TEMP 36.5; O2SAT 93; BMI 32.5
--- NOTE | 2021-10-22 22:41 | CTR_ITS ---
PROCEDURE INFORMATION: Exam: CT Head Without Contrast Exam date and time: 10/22/2021 11:43 PM Age: 46 years old Clinical indication: Altered mental status/memory loss; Additional info: AMS TECHNIQUE: Imaging protocol: Computed tomography of the head without contrast. Radiation optimization: All CT scans at this facility use at least one of these dose optimization techniques: automated exposure control; mA and/or kV adjustment per patient size (includes targeted exams where dose is matched to clinical indication); or iterative reconstruction. COMPARISON: CT head wo con* [id number] 08/06/2021 8:11 PM RADIATION DOSE METRICS: Total DLP (mGy-cm): 1108.48 FINDINGS: Brain: Normal. No hemorrhage. Unremarkable white matter. No mass effect. Cerebral ventricles: No ventriculomegaly. Paranasal sinuses: Visualized sinuses are unremarkable. No fluid levels. Mastoid air cells: Visualized mastoid air cells are well aerated. Bones/joints: Unremarkable. No acute fracture. Soft tissues: Unremarkable. CT/CT head wo con* [id number] IMPRESSION: No acute intracranial abnormality.
--- NOTE | 2021-10-22 22:41 | XRR_ITS ---
PROCEDURE INFORMATION: Exam: XR Chest Exam date and time: 10/22/2021 11:30 PM Age: 46 years old Clinical indication: Other: AMS TECHNIQUE: Imaging protocol: Radiologic exam of the chest. Views: 1 view. COMPARISON: CT chest abd pel wo con 08/06/2021 8:15 PM FINDINGS: Lungs: There is mild basilar atelectasis or infiltrate more on the right than on the left. Heart is within normal limits of size. There is no pulmonary vascular congestion. Pleural spaces: Unremarkable. No pleural effusion. No pneumothorax. Heart/Mediastinum: See Lungs finding. Bones/joints: Unremarkable. XR/XR chest 1V portable [id number] IMPRESSION: Mild basilar infiltrates worrisome for pneumonia. Follow-up suggested.
[2021-10-22 22:45] VITALS: BP 110/75; PULSE 67; RESP 15; O2SAT 92
--- NOTE | 2021-10-22 22:45 | W.ED.GENADLT ---
HPI - General Adult General: Chief complaint: Altered Mental Status Stated complaint: AMS Time Seen by Provider: 10/22/21 22:37 Source: patient and EMS Mode of arrival: EMS Limitations: no limitations History of Present Illness: 46-year-old female states that she was at the [facility] states she was just sleeping EMS was called for altered mental status as they state the people there was concerned as they were having a hard time waking up patient now awake she is alert states she does have liver disease and is concerned her ammonia may be high she is able answer all my questions appropriately she denies any pain anywhere. Denies any fever Associated symptoms: Deny chest pain, dyspnea, headache(s), nausea, rash or vomiting Review of Systems Const: Denies: fever(s), chills, body aches or change in appetite Eyes: Denies: blurry vision or eye discomfort ENMT: Denies: throat pain or dental pain Card: Denies: chest pain Resp: Denies: dyspnea GI: Denies: abdominal pain, nausea, vomiting or diarrhea : Denies: dysuria Musc: Denies: neck pain or back pain Skin/Breast: Denies: rash Neuro: Denies: headache(s) Psych: Denies: depression Robel/Lymph: Denies: easy bruising All/Imm: Denies: urticaria PFSH ED PFSH: Medical History Accidental fentanyl overdose Bilateral pulmonary embolism Cardiac arrest Chronic abdominal pain Chronic hepatitis B Chronic hip pain Cirrhosis COPD (chronic obstructive pulmonary disease) Diabetes mellitus Encephalopathy Gastroesophageal reflux GI bleeding Hepatitis B Hypertension Leg cramps Overdose Pelvic inflammatory disease Stomach cancer Thrombocytopenia Surgical History H/O tubal ligation History of hysterectomy History of laparotomy Family History Mother Diabetes Father CAD (coronary artery disease) Other Cancer Social History Smoking and tobacco status: current every day smoker cigarettes Packs smoked per day: 2 Years cigarettes smoked: 26 [ Other cigarette details: currently trying to quit, smoking 7 cigarettes/day] Alcohol intake: never Female Reproductive History: Date of last menstrual period: 08/07/21 Physical Exam Const: COMMON NORMALS: no acute distress, patient oriented x3 and healthy appearing HENMT: COMMON NORMALS: normocephalic and atraumatic HEAD & SCALP: normocephalic and atraumatic Eye: COMMON NORMALS: Equal, round and reactive pupils present and EOMs intact bilaterally PUPIL: Yes Equal, round and reactive pupils present Neck/C-Spine: COMMON NORMALS: full ROM and supple Chest: COMMONS NORMALS: normal inspection of the chest and normal palpation of entire chest wall Resp: COMMON NORMALS: normal respiratory effort, No retractions, No use of accessory muscles and clear to auscultation bilaterally AUSCULTATION: clear to auscultation bilaterally Cardio: COMMON NORMALS: regular rate, regular rhythm and No murmurs present (Cardio) RATE: regular rate RHYTHM: regular rhythm GI: COMMON NORMALS: Normal to inspection, nondistended, normoactive bowel sounds present, Soft to palpation, non-tender and no masses PALPATION: Yes Soft to palpation Extremity: COMMON NORMALS: normal to inspection and full ROM Neuro: COMMON NORMALS: patient oriented x3, moves all extremities and no focal motor deficits Psych: COMMON NORMALS: mental status grossly normal, Normal thought process present and cooperative THOUGHT PROCESS: Normal thought process present Skin: COMMON NORMALS: no rashes or lesions noted and no wounds GENERAL SKIN EXAM: no rashes or lesions noted Course Vital Signs: Vital signs: Vital Signs Temperature 97.7 F 10/22/21 22:40 Pulse Rate 67 10/22/21 22:45 Respiratory Rate 17 10/23/21 00:15 Blood Pressure 118/81 10/23/21 00:15 Pulse Oximetry 92 10/23/21 00:15 Oxygen Delivery Me thod 10/22/21 22:45 [facility] - General Adult Medical Decision Making Patient presents here with a period of altered mental status patient is now awake and alert answering all my questions appropriately ammonia level is mildly elevated is actually normal per her baseline she is to take her home meds she is stable for discharge she is to follow-up PCP and return if worsening. Lab Data : 10/23/21 00:00 10/23/21 00:10 Radiology Impressions Chest X-Ray 10/22/21 22:41 IMPRESSION: Mild basilar infiltrates worrisome for pneumonia. Follow-up suggested. Head CT 10/22/21 22:41 IMPRESSION: No acute intracranial abnormality. Laboratory Results WBC 5.2 10^3/uL (4.0-10.0) 10/23/21 00:00 RBC 3.84 10^6/uL (4.1-5.3) L 10/23/21 00:00 Hgb 12.0 g/dL (11.5-15.3) 10/23/21 00:00 Hct 35.8 % (37.0-47.0) L 10/23/21 00:00 MCV 93.2 fl (81-99) 10/23/21 00:00 MCH 31.3 pg (28.0-34.0) 10/23/21 00:00 MCHC 33.5 g/dL (30.0-36.0) 10/23/21 00:00 RDW 13.6 % (12.1-15.1) 10/23/21 00:00 Plt Count 163 10^3/cmm (130-400) 10/23/21 00:00 MPV 10.2 fL (7.4-10.4) 10/23/21 00:00 Neut % (Auto) 37.6 % 10/23/21 00:00 Lymph % (Auto) 44.4 % 10/23/21 00:00 [place] % (Auto) 12.9 % 10/23/21 00:00 Eos % (Auto) 4.1 % 10/23/21 00:00 Baso % (Auto) 0.8 % 10/23/21 00:00 Neut # (Auto) 1.95 10^3/uL (1.8-7.7) 10/23/21 00:00 Lymph # (Auto) 2.3 10^3/uL (0.8-4.8) 10/23/21 00:00 [place] # (Auto) 0.7 10^3/uL (0.2-0.9) 10/23/21 00:00 Eos # (Auto) 0.2 10^3/uL (0.0-0.8) 10/23/21 00:00 Baso # (Auto) 0.0 10^3/uL (0.0-0.1) 10/23/21 00:00 Nucleated RBC % (auto) 0 % 10/23/21 00:00 Nucleated RBCs # 0.0 /100WBC 10/23/21 00:00 Sodium 138 mmol/L (136-145) 10/23/21 00:10 Potassium 3.2 mmol/L (3.5-5.1) L 10/23/21 00:10 Chloride 100 mmol/L (98-107) 10/23/21 00:10 Carbon Dioxide 29 mmol/L (22-29) 10/23/21 00:10 Anion Gap 12.2 (5-19) 10/23/21 00:10 BUN 13 mg/dL (6-20) 10/23/21 00:10 Creatinine 0.7 mg/dL (0.5-0.9) 10/23/21 00:10 GFR Calculation 89.7 mL/min (90-130) L 10/23/21 00:10 Glucose 94 mg/dL (65-115) 10/23/21 00:10 POC Glucose 103 mg/dL (70-110) 10/22/21 22:52 Calculated Osmolality 286 mOsm/kg (285-295) 10/23/21 00:10 Calcium 8.8 mg/dL (8.5-10.5) 10/23/21 00:10 Total Bilirubin 0.5 mg/dL (0.15-1.2) 10/23/21 00:10 AST 36 U/L (0-32) H 10/23/21 00:10 ALT 17 U/L (0-33) 10/23/21 00:10 Alkaline Phosphatase 99 IU/L (35-105) 10/23/21 00:10 Ammonia 97 umol/L (11-51) H 10/23/21 00:00 Total Protein 7.4 g/dL (6.6-8.7) 10/23/21 00:10 Albumin 3.1 g/dL (3.5-5.2) L 10/23/21 00:10 Globulin 4.3 g/dL (1.3-4.6) 10/23/21 00:10 Urine Color Yellow (Yellow) 10/22/21 23:15 Urine Appearance Clear (CLEAR) 10/22/21 23:15 Urine pH 7 (5-7) 10/22/21 23:15 Ur Specific [place] 1.010 (1.005-1.030) 10/22/21 23:15 Urine Protein Neg (Negative) 10/22/21 23:15 Urine Glucose (UA) Norm (Normal) 10/22/21 23:15 Urine Ketones Negative (Negative) 10/22/21 23:15 Urine Blood 3+ (Negative) H 10/22/21 23:15 Urine Nitrate Negative (Negative) 10/22/21 23:15 Urine Bilirubin Neg (Negative) 10/22/21 23:15 Urine Urobilinogen Neg mg/dL (Negative) 10/22/21 23:15 Ur Leukocyte Esterase Negative (Negative) 10/22/21 23:15 Urine RBC 5-10 /hpf (0-2) H 10/22/21 23:15 Urine WBC 0-4 /hpf (0-5) H 10/22/21 23:15 Ur Squamous Epith Cells 0-4 /hpf (0-5) H 10/22/21 23:15 Amorphous Sediment Not Reportable 10/22/21 23:15 Urine Bacteria 2+ /hpf (NONE) H 10/22/21 23:15 Urine Mucus 1+ /hpf 10/22/21 23:15 EKG Data EKG 1: I personally reviewed and interpreted this EKG as follows: EKG interpretation date: 10/22/21 EKG interpretation time: 23:52 Interpretation: nsr hr [address] or t wave abnormalities qrs 113 qtc 446 Computer generated interpretation: Chest X-Ray 10/22/21 22:41 IMPRESSION: Mild basilar infiltrates worrisome for pneumonia. Follow-up suggested. Head CT 10/22/21 22:41 IMPRESSION: No acute intracranial abnormality. Discharge Plan Discharge Patient Disposition: Home Clinical Impression: Altered mental status Condition: Stable Prescriptions: No Action Xifaxan 550 mg tablet 550 mg PO BID levothyroxine 50 mcg tablet 50 mcg PO QAM Qty: 30 0RF Rx Instructions: needs an appt with labs before more refills Bevespi Aerosphere 9-4.8 mcg HFA aerosol inhaler 2 puff inhalation BID Qty: 10.7 0RF Lantus U-100 Insulin 100 unit/mL solution 40 unit SUBCUT BEDTIME tizanidine 4 mg tablet 4 mg PO Q6H PRN (Reason: Muscle Spasm) sumatriptan succinate [Imitrex] 50 mg Tablet 50 mg PO Q2H MDD 2 tabs PRN (Reason: Migraine Headache) spironolactone 25 mg tablet 25 mg PO QAM potassium chloride 20 mEq tablet,ER particles/crystals 20 meq PO QAM amitriptyline 25 mg tablet 25 mg PO BEDTIME levetiracetam 750 mg tablet 750 mg PO BID lactulose 10 gram/15 mL solution 90 ml PO TID PRN (Reason: Constipation) pantoprazole 40 mg tablet,delayed release (DR/EC) 40 - 80 mg PO DAILY PRN (Reason: Acid Reflux) albuterol sulfate 90 mcg/actuation HFA aerosol inhaler 1 inh inhalation Q6H PRN (Reason: shortness of breath or wheezing) Qty: 8.5 0RF aspirin 81 mg Tablet,Delayed Release (Dr/Ec) 81 mg PO DAILY oxycodone 5 mg tablet 5 mg PO Q12H PRN (Reason: Pain) tenofovir disoproxil fumarate 300 mg tablet 300 mg PO QAM lamotrigine 200 mg Tablet 200 mg PO DAILY hydromorphone 2 mg Tablet 4 mg PO Q8H PRN (Reason: Pain) metoclopramide HCl 10 mg Tablet 10 mg PO DAILY lubiprostone [Amitiza] 24 mcg Capsule 24 mcg PO DAILY Eliquis 5 mg Tablet 5 mg PO DAILY gabapentin 300 mg capsule 300 mg PO BID Creon 3,000-9,500- 15,000 unit capsule,delayed release(DR/EC) 1 cap PO TID furosemide 40 mg tablet 80 mg PO TID PRN (Reason: Abdominal Distention) Qty: 0 0RF Narcan 4 mg/actuation spray,non-aerosol See Rx Instructions .ROUTE .COMPLEX Qty: 1 0RF Rx Instructions: as directed intranasally prn Discharge Orders: Discharge ED (Routine); Ordered 10/23/21 Ordered By: Brandon Jerez Referrals: Francisco Mckinley DO [Primary Care Provider] - 1-3 days Discharge Diet: Advance as tolerated Discharge Activity: Resume usual activity Patient Instructions: Altered Mental Status (ED) Coding Level of Care Code ED Assistant Infant Teacher for Chg 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
--- NOTE | 2021-10-22 22:52 | ECG_ITS ---
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 Measurements Intervals [place] Rate: 69 P: 41 MI: 173 QRS: 39 QRSD: 113 T: 43 QT: 427 QTc: 459 Interpretive Statements SINUS RHYTHM POSSIBLE LEFT ATRIAL ENLARGEMENT [-0.1mV P WAVE IN V1/V2] MODERATE INTRAVENTRICULAR CONDUCTION DELAY [110+ ms QRS DURATION] Compared to ECG 08/07/2021 03:02:08 Intraventricular conduction delay now present Electronically Signed On 10-23-2021 19:02:05 CDT by Suzy Wyman M.D. [id number] f
[2021-10-22 23:25] LABS: Add Urine Microscopic? YES; Bilirubin Urine Neg (Negative); Blood Urine 3+ (Negative); Glucose Urine UA Norm (Normal); Ketones Urine Negative (Negative); Leukocyte Esterase Urine Negative (Negative); Nitrate Urine Negative (Negative); Protein Urine Neg (Negative); Urine Appearance Clear (CLEAR); Urine Color Yellow (Yellow); Urobilinogen Urine Neg (Negative); pH Urine 7 (5-7)
[2021-10-22 23:26] LABS: Bacteria Urine 2+ /hpf; Mucus Urine 1+ /hpf; Squamous Epithelial Cell Urine 0-4 /hpf (0-5); WBC Urine 0-4 /hpf (0-5)
[2021-10-22 23:27] LABS: Add Urine Culture? Yes
[2021-10-23 00:14] LABS: Basophils % 0.8 %; Eosinophils # 0.2 10^3/uL (0.0-0.8); Eosinophils % 4.1 %; Hematocrit 35.8 % (37.0-47.0); Lymphocytes # 2.3 10^3/uL (0.8-4.8); Lymphocytes % 44.4 %; Mean Corpuscular HGB Conc 33.5 g/dL (30.0-36.0); Mean Corpuscular Hemoglobin 31.3 pg (28.0-34.0); Mean Corpuscular Volume 93.2 fl (81-99); Mean Platelet Volume 10.2 fL (7.4-10.4); Monocytes # 0.7 10^3/uL (0.2-0.9); Monocytes % 12.9 %; Neutrophils # 1.95 10^3/uL (1.8-7.7); Neutrophils % 37.6 %; Nucleated Red Blood Cells % 0 %; Platelet Count 163 10^3/cmm (130-400); Red Blood Count 3.84 10^6/uL (4.1-5.3); Red Cell Distribution Width 13.6 % (12.1-15.1); White Blood Count 5.2 10^3/uL (4.0-10.0)
[2021-10-23 00:15] VITALS: BP 118/81; RESP 17; O2SAT 92
[2021-10-23 00:16] LABS: Glucose Point of Care 103 mg/dL (70-110)
[2021-10-23 00:36] LABS: Ammonia 97 umol/L (11-51)
[2021-10-23 00:37] LABS: Alanine Aminotransferase 17 U/L (0-33); Albumin Level 3.1 g/dL (3.5-5.2); Alkaline Phosphatase 99 IU/L (35-105); Anion Gap 12.2 (5-19); Aspartate Amino Transferase 36 U/L (0-32); Blood Urea Nitrogen 13 mg/dL (6-20); Calcium 8.8 mg/dL (8.5-10.5); Carbon Dioxide 29 mmol/L (22-29); Chloride 100 mmol/L (98-107); Creatinine Clr Calc Pharmacy 124.9053; Globulin 4.3 g/dL (1.3-4.6); Glomerular Filtration Rate 89.7 mL/min (90-130); Glucose 94 mg/dL (65-115); Osmolality Calculated 286 mOsm/kg (285-295); Potassium 3.2 mmol/L (3.5-5.1); Sodium 138 mmol/L (136-145); Total Bilirubin 0.5 mg/dL (0.15-1.2); Total Protein 7.4 g/dL (6.6-8.7)
[2021-10-23 03:00] VITALS: BP 133/80; O2SAT 95
[2021-10-23 03:10] VITALS: BP 133/80; O2SAT 95
== END 2021-10-23 03:11 | disposition home or self-care (01) ==
PROVIDERS: Emergency Provider Emergency Medicine; PCP Family Medicine
DX: R41.82 Altered mental status, unspecified (principal); Z79.82 Long term (current) use of aspirin; Z86.19 Personal history of other infectious and parasitic diseases; J44.9 Chronic obstructive pulmonary disease, unspecified; E11.9 Type 2 diabetes mellitus without complications; I10 Essential (primary) hypertension; Z85.028 Personal history of other malignant neoplasm of stomach; F17.210 Nicotine dependence, cigarettes, uncomplicated
CPT/HCPCS: 36416; 70450; 71045; 80053; 81001; 82140; 82962; 85025; 87086; 93005; 99285

== ENCOUNTER 2021-11-04 13:01 | Emergency (ER) | payer MEDICAID, SELFPAY ==
[2021-11-04 14:05] VITALS: BP 98/60; PULSE 60; RESP 16; TEMP 36.6; O2SAT 97; BMI 27.1
--- NOTE | 2021-11-04 14:33 | ECG_ITS ---
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 Measurements Intervals [place] Rate: 63 P: 48 W[place]: 142 QRS: 37 QRSD: 93 T: 27 QT: 421 QTc: 432 Interpretive Statements SINUS RHYTHM POSSIBLE LEFT ATRIAL ENLARGEMENT [-0.1mV P-WAVE IN V1/V2] Compared to ECG 10/22/2021 22:52:59 Intraventricular conduction delay no longer present Electronically Signed On 11-04-2021 17:43:54 CDT by Oseas Junior M.D. [id number]
[2021-11-04 16:09] LABS: Basophils # 0.1 10^3/uL (0.0-0.1); Basophils % 0.8 %; Eosinophils # 0.2 10^3/uL (0.0-0.8); Eosinophils % 2.5 %; Hematocrit 42.4 % (37.0-47.0); Lymphocytes # 2.6 10^3/uL (0.8-4.8); Lymphocytes % 43.8 %; Mean Corpuscular Hemoglobin 30.6 pg (28.0-34.0); Mean Corpuscular Volume 92.6 fl (81-99); Mean Platelet Volume 10.7 fL (7.4-10.4); Monocytes # 0.7 10^3/uL (0.2-0.9); Monocytes % 11.6 %; Neutrophils # 2.48 10^3/uL (1.8-7.7); Neutrophils % 41.1 %; Nucleated Red Blood Cells % 0 %; Platelet Count 195 10^3/cmm (130-400); Red Blood Count 4.58 10^6/uL (4.1-5.3); Red Cell Distribution Width 12.9 % (12.1-15.1)
[2021-11-04 16:35] LABS: Lactate (Lactic Acid level) 1.6 mmol/L (0.5-2.2)
[2021-11-04 16:41] LABS: Alanine Aminotransferase 19 U/L (0-33); Albumin Level 3.7 g/dL (3.5-5.2); Alkaline Phosphatase 122 U/L (35-105); Anion Gap 15.2 (5-19); Aspartate Amino Transferase 34 U/L (0-32); Blood Urea Nitrogen 13 mg/dL (6-20); Calcium 9.1 mg/dL (8.5-10.5); Carbon Dioxide 24 mmol/L (22-29); Chloride 101 mmol/L (98-107); Glomerular Filtration Rate 76.9 mL/min (90-130); Glucose 88 mg/dL (65-115); Osmolality Calculated 282 mOsm/kg (285-295); Potassium 4.2 mmol/L (3.5-5.1); Sodium 136 mmol/L (136-145); Total Bilirubin 0.6 mg/dL (0.15-1.2); Total Protein 7.7 g/dL (6.6-8.7)
[2021-11-04 16:50] VITALS: BP 94/64; PULSE 67; RESP 20; TEMP 36.8; O2SAT 99
[2021-11-04 18:36] VITALS: BP 124/85; PULSE 66; RESP 16; TEMP 36.8; O2SAT 99
[2021-11-04 20:31] VITALS: BP 133/83; PULSE 93; RESP 17; O2SAT 97
[2021-11-04 20:39] LABS: Add Urine Microscopic? NO; Charge for UA Resulting for Rev
[2021-11-04 20:42] LABS: Bilirubin Urine Neg (Negative); Blood Urine Neg (Negative); Glucose Urine UA Norm (Normal); Ketones Urine Negative (Negative); Leukocyte Esterase Urine Negative (Negative); Nitrate Urine Negative (Negative); Protein Urine Neg (Negative); Urine Appearance SL Hazy (CLEAR); Urine Color Yellow (Yellow); Urobilinogen Urine 1 mg/dL (Negative); pH Urine 6 (5-7)
--- NOTE | 2021-11-04 20:57 | W.ED.SYNCOPE ---
HPI - Syncope General: Chief Complaint: Syncope Stated Complaint: passed out Time Seen by Provider: 11/04/21 20:29 Source: patient History of Present Illness: 46-year-old female with a history of chronic liver disease. She presents with an episode of syncope. Evidently she had gotten up in the morning and was walking. She was having some pain and nausea at the time. A friend in the half-way found her on the floor, unconscious. She quickly became arousable. She does not remember passing out. No definite seizure activity. She was not overly confused upon waking. This is the second episode of syncope the patient has had in the past week. She has not had episodes like this prior. She does note that with her liver disease, her ammonia level has been high in the past. complaint: loss of consciousness and collapsed Onset (ago): hour(s) -: second(s) Description of event: other Prodromal symptoms: lightheaded and nausea/vomiting Witnessed: Yes - by Bystander Context: standing up and related to severe pain Associated symptoms: Reports abdominal pain, lightheadedness and nausea; Deny chest pain, fever(s), headache(s), short of breath or vertigo History: previous syncopal episode (once) Review of Systems Const: Denies: fever(s) Eyes: Denies: change in vision ENMT: Denies: throat pain Card: Reports: lightheadedness; Denies: chest pain Resp: Denies: dyspnea, productive cough or non-productive cough GI: Reports: abdominal pain, nausea, vomiting and diarrhea : Denies: difficulty voiding or dysuria Neuro: Denies: headache(s) or vertigo [facility] ED PFSH: Medical History Accidental fentanyl overdose Bilateral pulmonary embolism Cardiac arrest Chronic abdominal pain Chronic hepatitis B Chronic hip pain Cirrhosis COPD (chronic obstructive pulmonary disease) Diabetes mellitus Encephalopathy Gastroesophageal reflux GI bleeding Hepatitis B Hypertension Leg cramps Overdose Pelvic inflammatory disease Stomach cancer Thrombocytopenia Surgical History H/O tubal ligation History of hysterectomy History of laparotomy Family History Mother Diabetes Father CAD (coronary artery disease) Other Cancer Social History Smoking and tobacco status: current every day smoker cigarettes Packs smoked per day: 2 Years cigarettes smoked: 26 [ Other cigarette details: currently trying to quit, smoking 7 cigarettes/day] Alcohol intake: never Female Reproductive History: Date of last menstrual period: 08/07/21 Physical Exam Const: COMMON NORMALS: no acute distress GENERAL APPEARANCE: cooperative; not ill appearing ORIENTATION/CONSCIOUSNESS: Yes awake, Yes oriented to person, Yes oriented to place and Yes oriented to time HENMT: COMMON NORMALS: normocephalic, atraumatic and Normal external nose present HEAD & SCALP: normocephalic and atraumatic FACE & SINUS: normal facial exam and face symmetric NOSE: Normal external nose present Eye: COMMON NORMALS: Equal, round and reactive pupils present and EOMs intact bilaterally PUPIL: Yes Equal, round and reactive pupils present Neck/C-Spine: GENERAL: Yes trachea midline Chest: CHEST: Yes Symmetrical chest wall rise Resp: COMMON NORMALS: normal respiratory effort, No use of accessory muscles and clear to auscultation bilaterally AUSCULTATION: clear to auscultation bilaterally Cardio: COMMON NORMALS: regular rate and regular rhythm RATE: regular rate RHYTHM: regular rhythm GI: COMMON NORMALS: Normal to inspection, nondistended, normoactive bowel sounds present PALPATION: Yes Tenderness to palpation present (GI) (diffuse) Extremity: COMMON NORMALS: no pedal edema Neuro: PETRA COMA SCALE: document GCS findings Petra coma scale eye opening: Spontaneous Petra coma scale verbal response: Orientated Petra coma scale motor response: Obey commands Ulysses coma scale total score: 15 COMMON NORMALS: CN's II-XII intact bilaterally SENSORIUM/ORIENTATION: Yes oriented to person, Yes oriented to place and Yes oriented to time COORDINATION/BALANCE: [id number] test normal SPEECH: speech normal SENSORY EXAM: Yes extremities (intact) MOTOR EXAM: Pronator motor function not present, Normal motor muscle tone present throughout, No Tremors during motor activity present and No Asterixis during motor activity present COORDINATION: [id number] test normal Psych: COMMON NORMALS: cooperative Course Vital Signs: Vital signs: Vital Signs Temperature 98.2 F 11/04/21 18:36 Pulse Rate 96 11/04/21 22:05 Respiratory Rate 17 11/04/21 22:05 Blood Pressure 133/89 11/04/21 22:05 Pulse Oximetry 95 11/04/21 22:05 Oxygen Delivery Me thod 11/04/21 22:05 MDM - Syncope Medical Decision Making 46-year-old female with a history of liver disease. She has had a second episode of syncope she says in the last week or so. She is afebrile. Her vitals are normal. Her oxygen saturations are normal on room air. Her CBC is normal. Her BMP is normal. She has a mild elevation in her ammonia level, which is essentially at her baseline as before. Her urinalysis is negative. Her AST is 34. Her alk phos is 122. She is generally tender in her belly, but not focally tender. She appears stable on exam. She will be allowed home. Her syncope is most likely vasovagal from nausea and belly pain that is chronic. Her EKG showed a sinus rhythm with normal axis and intervals. Rate is 60. No acute ST changes. Lab Data : 11/04/21 16:00 11/04/21 16:00 Laboratory Results WBC 6.0 10^3/uL (4.0-10.0) 11/04/21 16:00 RBC 4.58 10^6/uL (4.1-5.3) 11/04/21 16:00 Hgb 14.0 g/dL (11.5-15.3) 11/04/21 16:00 Hct 42.4 % (37.0-47.0) 11/04/21 16:00 MCV 92.6 fl (81-99) 11/04/21 16:00 MCH 30.6 pg (28.0-34.0) 11/04/21 16:00 MCHC 33.0 g/dL (30.0-36.0) 11/04/21 16:00 RDW 12.9 % (12.1-15.1) 11/04/21 16:00 Plt Count 195 10^3/cmm (130-400) 11/04/21 16:00 MPV 10.7 fL (7.4-10.4) H 11/04/21 16:00 Neut % (Auto) 41.1 % 11/04/21 16:00 Lymph % (Auto) 43.8 % 11/04/21 16:00 [place] % (Auto) 11.6 % 11/04/21 16:00 Eos % (Auto) 2.5 % 11/04/21 16:00 Baso % (Auto) 0.8 % 11/04/21 16:00 Neut # (Auto) 2.48 10^3/uL (1.8-7.7) 11/04/21 16:00 Lymph # (Auto) 2.6 10^3/uL (0.8-4.8) 11/04/21 16:00 [place] # (Auto) 0.7 10^3/uL (0.2-0.9) 11/04/21 16:00 Eos # (Auto) 0.2 10^3/uL (0.0-0.8) 11/04/21 16:00 Baso # (Auto) 0.1 10^3/uL (0.0-0.1) 11/04/21 16:00 Nucleated RBC % (auto) 0 % 11/04/21 16:00 Nucleated RBCs # 0.0 /100WBC 11/04/21 16:00 Sodium 136 mmol/L (136-145) 11/04/21 16:00 Potassium 4.2 mmol/L (3.5-5.1) 11/04/21 16:00 Chloride 101 mmol/L (98-107) 11/04/21 16:00 Carbon Dioxide 24 mmol/L (22-29) 11/04/21 16:00 Anion Gap 15.2 (5-19) 11/04/21 16:00 BUN 13 mg/dL (6-20) 11/04/21 16:00 Creatinine 0.8 mg/dL (0.5-0.9) 11/04/21 16:00 GFR Calculation 76.9 mL/min (90-130) L 11/04/21 16:00 Glucose 88 mg/dL (65-115) 11/04/21 16:00 Calculated Osmolality 282 mOsm/kg (285-295) L 11/04/21 16:00 Lactate 1.6 mmol/L (0.5-2.2) 11/04/21 16:00 Calcium 9.1 mg/dL (8.5-10.5) 11/04/21 16:00 Total Bilirubin 0.6 mg/dL (0.15-1.2) 11/04/21 16:00 AST 34 U/L (0-32) H 11/04/21 16:00 ALT 19 U/L (0-33) 11/04/21 16:00 Alkaline Phosphatase 122 U/L (35-105) H 11/04/21 16:00 Ammonia 112 umol/L (11-51) H 11/04/21 21:09 Total Protein 7.7 g/dL (6.6-8.7) 11/04/21 16:00 Albumin 3.7 g/dL (3.5-5.2) 11/04/21 16:00 Globulin 4.0 g/dL (1.3-4.6) 11/04/21 16:00 Lipase 19 U/L (13-60) 11/04/21 21:09 Urine Color Yellow (Yellow) 11/04/21 20:30 Urine Appearance Sl hazy (CLEAR) 11/04/21 20:30 Urine pH 6 (5-7) 11/04/21 20:30 Ur Specific [place] 1.010 (1.005-1.030) 11/04/21 20:30 Urine Protein Neg (Negative) 11/04/21 20:30 Urine Glucose (UA) Norm (Normal) 11/04/21 20:30 Urine Ketones Negative (Negative) 11/04/21 20:30 Urine Blood Neg (Negative) 11/04/21 20:30 Urine Nitrate Negative (Negative) 11/04/21 20:30 Urine Bilirubin Neg (Negative) 11/04/21 20:30 Urine Urobilinogen 1 mg/dL (Negative) H 11/04/21 20:30 Ur Leukocyte Esterase Negative (Negative) 11/04/21 20:30 Discharge Plan Discharge Patient Disposition: Home Clinical Impression: Vasovagal syncope Condition: Stable Prescriptions: No Action Xifaxan 550 mg tablet 550 mg PO BID levothyroxine 50 mcg tablet 50 mcg PO QAM Qty: 30 0RF Rx Instructions: needs an appt with labs before more refills Bevespi Aerosphere 9-4.8 mcg HFA aerosol inhaler 2 puff inhalation BID Qty: 10.7 0RF Lantus U-100 Insulin 100 unit/mL solution 40 unit SUBCUT BEDTIME tizanidine 4 mg tablet 4 mg PO Q6H PRN (Reason: Muscle Spasm) sumatriptan succinate [Imitrex] 50 mg Tablet 50 mg PO Q2H MDD 2 tabs PRN (Reason: Migraine Headache) spironolactone 25 mg tablet 25 mg PO QAM potassium chloride 20 mEq tablet,ER particles/crystals 20 meq PO QAM amitriptyline 25 mg tablet 25 mg PO BEDTIME levetiracetam 750 mg tablet 750 mg PO BID lactulose 10 gram/15 mL solution 90 ml PO TID PRN (Reason: Constipation) pantoprazole 40 mg tablet,delayed release (DR/EC) 40 - 80 mg PO DAILY PRN (Reason: Acid Reflux) albuterol sulfate 90 mcg/actuation HFA aerosol inhaler 1 inh inhalation Q6H PRN (Reason: shortness of breath or wheezing) Qty: 8.5 0RF aspirin 81 mg Tablet,Delayed Release (Dr/Ec) 81 mg PO DAILY oxycodone 5 mg tablet 5 mg PO Q12H PRN (Reason: Pain) tenofovir disoproxil fumarate 300 mg tablet 300 mg PO QAM lamotrigine 200 mg Tablet 200 mg PO DAILY hydromorphone 2 mg Tablet 4 mg PO Q8H PRN (Reason: Pain) metoclopramide HCl 10 mg Tablet 10 mg PO DAILY lubiprostone [Amitiza] 24 mcg Capsule 24 mcg PO DAILY Eliquis 5 mg Tablet 5 mg PO DAILY gabapentin 300 mg capsule 300 mg PO BID Creon 3,000-9,500- 15,000 unit capsule,delayed release(DR/EC) 1 cap PO TID furosemide 40 mg tablet 80 mg PO TID PRN (Reason: Abdominal Distention) Qty: 0 0RF Narcan 4 mg/actuation spray,non-aerosol See Rx Instructions .ROUTE .COMPLEX Qty: 1 0RF Rx Instructions: as directed intranasally prn Discharge Orders: Discharge ED (Routine); Ordered 11/04/21 Ordered By: Federico Mitchell Referrals: Francisco Mckinley DO [Primary Care Provider] - 1-3 days (As scheduled) Patient Instructions: Syncope (ED), Opioid Safety Activity Restrictions/Additional Instructions: Laboratory testing did not reveal a cause of your syncope or passing out today. It is most likely what we call vasovagal syncope from nausea and pain. Your ammonia level is mildly high, stable from prior. Ensure that you take your lactulose appropriately as you have been doing. Return for fever, seizures, worsening mental status, other concerning symptoms. Follow-up with your doctors next week. 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
[2021-11-04 21:28] LABS: Ammonia 112 umol/L (11-51)
[2021-11-04 21:34] LABS: Lipase 19 U/L (13-60)
[2021-11-04 21:55] VITALS: RESP 17
[2021-11-04] MEDS: morphine 4 mg/mL SDV 1 mL IVP (21:55)
[2021-11-04] MEDS: ondansetron 2 mg/ML SDV 2 mL 8 MG IVP (21:56)
[2021-11-04] MEDS: sodium chloride 0.9% 1,000 ML 999 ML IV (21:57)
[2021-11-04 22:05] VITALS: BP 133/89; PULSE 96; RESP 17; O2SAT 95
--- NOTE | 2021-11-04 22:09 | PC.NURSE ---
Patient a/o, vss, reports that she has been passing out and hoping to find out why, states this morning some shelving may have landed on her as she is having pain to left side of her body.
== END 2021-11-04 22:43 | disposition home or self-care (01) ==
PROVIDERS: Emergency Medicine; Emergency Provider Emergency Medicine; PCP Family Medicine
DX: R55 Syncope and collapse (principal); Z79.01 Long term (current) use of anticoagulants; Z79.82 Long term (current) use of aspirin; Z79.4 Long term (current) use of insulin; Z86.19 Personal history of other infectious and parasitic diseases; J44.9 Chronic obstructive pulmonary disease, unspecified; E11.9 Type 2 diabetes mellitus without complications; I10 Essential (primary) hypertension; Z85.028 Personal history of other malignant neoplasm of stomach; F17.210 Nicotine dependence, cigarettes, uncomplicated
CPT/HCPCS: 36415; 80053; 81003; 82140; 83605; 83690; 85025; 93005; 96374; 96375; 99284; J2270; J2405; J7030

== ENCOUNTER → 2021-11-16 13:17 | Outpatient (BNVA) | payer MEDICAID, SELFPAY | PROVIDERS: PCP Family Medicine; Visit Provider Internal Medicine Pulmonary Disease | DX: R06.00 Dyspnea, unspecified (principal); F17.219 Nicotine dependence, cigarettes, with unspecified nicotine-induced disorders; R09.02 Hypoxemia; B18.1 Chronic viral hepatitis B without delta-agent; Z91.89 Other specified personal risk factors, not elsewhere classified; J43.2 Centrilobular emphysema; Z86.711 Personal history of pulmonary embolism; Z79.01 Long term (current) use of anticoagulants; K74.60 Unspecified cirrhosis of liver; K76.6 Portal hypertension; I86.8 Varicose veins of other specified sites; E88.09 Other disorders of plasma-protein metabolism, not elsewhere classified; M79.89 Other specified soft tissue disorders; Z85.41 Personal history of malignant neoplasm of cervix uteri; Z85.828 Personal history of other malignant neoplasm of skin | CPT/HCPCS: 99214 ==

== ENCOUNTER 2021-11-16 20:04 | Emergency (ER) | payer MEDICAID, SELFPAY ==
[2021-11-16 20:27] VITALS: BP 101/67; PULSE 73; RESP 20; TEMP 37; O2SAT 98; BMI 31.4
--- NOTE | 2021-11-16 20:56 | W.ED.ABDPA2 ---
HPI - Abdominal Pain General: Chief Complaint: Abdominal Pain Stated Complaint: abd pain, right foot toe pain Time Seen by Provider: 11/16/21 20:56 History of Present Illness: 46-year-old female came in for complaints of abdominal pain. Patient has chronic abdominal pain due to liver disease and chronic hepatitis. Patient also had some pain to the right little toe that she wanted to have evaluated. Patient recently had some labs drawn at [facility] and did not want to have repeat labs tonight. Patient appears nontoxic. Patient appears in mild pain. Associated Symptoms: Denies constipation, nausea and vomiting Related Data: Date of Last Menstrual Period: 08/07/21 Review of Systems General: Reports: 10 or more systems reviewed and unremarkable except in HPI and below Card: Denies: chest pain Resp: Denies: dyspnea GI: Reports: abdominal pain; Denies: nausea, vomiting or constipation Musc: Reports: extremity pain (Right little toe pain) [facility] PFSH: Medical History (Updated 11/16/21 @ 21:07 by CAMERON Patel) Accidental fentanyl overdose Bilateral pulmonary embolism Cardiac arrest Chronic abdominal pain Chronic hepatitis B Chronic hip pain Cirrhosis COPD (chronic obstructive pulmonary disease) Diabetes mellitus Encephalopathy Gastroesophageal reflux GI bleeding Hepatitis B Hypertension Leg cramps Overdose Pelvic inflammatory disease Stomach cancer Thrombocytopenia Surgical History H/O tubal ligation History of hysterectomy History of laparotomy Family History Mother Diabetes Father CAD (coronary artery disease) Other Cancer Social History Smoking and tobacco status: former smoker Quit status (tobacco): has quit using tobacco Year quit tobacco: 2020 Former quit date comment: 2ppd x 26 year Hx Alcohol intake: never Female Reproductive History: Date of last menstrual period: 08/07/21 Physical Exam Const: COMMON NORMALS: alert HENMT: COMMON NORMALS: normocephalic HEAD & SCALP: normocephalic Neck/C-Spine: COMMON NORMALS: full ROM Resp: COMMON NORMALS: normal respiratory effort and clear to auscultation bilaterally AUSCULTATION: clear to auscultation bilaterally Cardio: COMMON NORMALS: regular rate and regular rhythm RATE: regular rate RHYTHM: regular rhythm GI: COMMON NORMALS: Soft to palpation INSPECTION: Yes normal to inspection PALPATION: Yes Soft to palpation and Yes Tenderness to palpation present (GI) (Generalized) : COMMON NORMALS: Yes no CVA tenderness BLADDER/KIDNEY EXAM: Yes no CVA tenderness Back/Pelvis: COMMON NORMALS: no CVA tenderness Extremity: COMMON NORMALS: normal to inspection RIGHT LOWER EXTREMITY: Yes foot & digits (No redness or discoloration to the little toe right foot) Right foot and digits: Yes inspection, Yes palpation and Yes ROM Neuro: SENSORIUM/ORIENTATION: Yes alert Skin: COMMON NORMALS: no rashes or lesions noted GENERAL SKIN EXAM: no rashes or lesions noted Course Vital Signs: Vital signs: Vital Signs Temperature 98.6 F 11/16/21 20:27 Pulse Rate 73 11/16/21 20:27 Respiratory Rate 20 H 11/16/21 20:27 Blood Pressure 101/67 11/16/21 20:27 Pulse Oximetry 98 11/16/21 20:27 MDM - Abdominal Pain Medical Decision Making 46-year-old female comes in today with complaints of some abdominal pain and right little toe pain. Patient has chronic abdominal pain due to chronic liver disease from hepatitis B. On exam abdomen soft with no distention. Bowel sounds are present. Skin is warm and dry. Vital signs are normal. Examination of the right foot indicates no redness or discoloration to the toe which patient has pain in. Differential diagnosis includes but not limited to chronic abdominal pain, cirrhosis, chronic hepatitis B, malingering, peripheral neuropathy. Patient was given 4 mg of morphine IM for her pain. Reviewed the record for labs and was noted patient had some labs done last week that were unremarkable. Recommend patient just follow-up with her primary care regarding any further treatment and evaluation. Return to ER for fever or blood in vomit or stool. Patient reported understanding and agreed to plan. Discharge Plan Discharge Patient Disposition: Home Clinical Impression: Chronic hepatitis B, Pain in toe of right foot, Chronic abdominal pain Abdominal pain Qualifiers: Abdominal location: generalized Qualified Code(s): R10.84 - Generalized abdominal pain Condition: Stable Prescriptions: No Action Xifaxan 550 mg tablet 550 mg PO BID furosemide 40 mg tablet 80 mg PO TID PRN (Reason: Abdominal Distention) levothyroxine 50 mcg tablet 50 mcg PO QAM Qty: 30 0RF Rx Instructions: needs an appt with labs before more refills Bevespi Aerosphere 9-4.8 mcg HFA aerosol inhaler 2 puff inhalation BID Qty: 10.7 0RF Lantus U-100 Insulin 100 unit/mL solution 40 unit SUBCUT BEDTIME tizanidine 4 mg tablet 4 mg PO Q6H PRN (Reason: Muscle Spasm) sumatriptan succinate [Imitrex] 50 mg Tablet 50 mg PO Q2H MDD 2 tabs PRN (Reason: Migraine Headache) spironolactone 25 mg tablet 25 mg PO QAM potassium chloride 20 mEq tablet,ER particles/crystals 20 meq PO QAM amitriptyline 25 mg tablet 25 mg PO BEDTIME levetiracetam 750 mg tablet 750 mg PO BID lactulose 10 gram/15 mL solution 90 ml PO TID PRN (Reason: Constipation) pantoprazole 40 mg tablet,delayed release (DR/EC) 40 - 80 mg PO DAILY PRN (Reason: Acid Reflux) albuterol sulfate 90 mcg/actuation HFA aerosol inhaler 1 inh inhalation Q6H PRN (Reason: shortness of breath or wheezing) Qty: 8.5 0RF aspirin 81 mg Tablet,Delayed Release (Dr/Ec) 81 mg PO DAILY oxycodone 5 mg tablet 5 mg PO Q12H PRN (Reason: Pain) tenofovir disoproxil fumarate 300 mg tablet 300 mg PO QAM lamotrigine 200 mg Tablet 200 mg PO DAILY hydromorphone 2 mg Tablet 4 mg PO Q8H PRN (Reason: Pain) metoclopramide HCl 10 mg Tablet 10 mg PO DAILY lubiprostone [Amitiza] 24 mcg Capsule 24 mcg PO DAILY gabapentin 300 mg capsule 300 mg PO BID Creon 3,000-9,500- 15,000 unit capsule,delayed release(DR/EC) 1 cap PO TID Narcan 4 mg/actuation spray,non-aerosol See Rx Instructions .ROUTE .COMPLEX Qty: 1 0RF Rx Instructions: as directed intranasally prn Discharge Orders: Discharge ED (Routine); Ordered 11/16/21 Ordered By: Raymond Coates Referrals: Francisco Mckinley DO [Primary Care Provider] - Discharge Diet: Usual diet Discharge Activity: Increase activity as tolerated Patient Instructions: Abdominal Pain (ED), Opioid Safety Activity Restrictions/Additional Instructions: Continue routine medications. Follow-up with primary care for further instruction. Return to ER for worsening symptoms such as fever greater than 100.4, blood in vomit or stool, or new concerns. Coding Level of Care Code ED Care Center Manager for 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
[2021-11-16 21:01] VITALS: PULSE 55; RESP 19; O2SAT 98
[2021-11-16] MEDS: morphine 4 mg/mL SDV 1 mL IM (21:10)
[2021-11-16 21:20] VITALS: PULSE 55; RESP 19; O2SAT 98
== END 2021-11-16 21:21 | disposition home or self-care (01) ==
PROVIDERS: Emergency Provider Nurse Practitioner Family; PCP Family Medicine
DX: G89.29 Other chronic pain (principal); R10.9 Unspecified abdominal pain; B18.1 Chronic viral hepatitis B without delta-agent; M79.674 Pain in right toe(s); Z79.4 Long term (current) use of insulin; Z79.82 Long term (current) use of aspirin; J44.9 Chronic obstructive pulmonary disease, unspecified; E11.9 Type 2 diabetes mellitus without complications; I10 Essential (primary) hypertension; Z85.028 Personal history of other malignant neoplasm of stomach; Z87.891 Personal history of nicotine dependence
CPT/HCPCS: 96372; 99284; J2270

== ENCOUNTER 2021-11-19 14:12 | Emergency (ER) | payer MEDICAID, SELFPAY ==
[2021-11-19] VITALS (7 sets, daily range): BP systolic 96–130; BP diastolic 65–80; PULSE 68–95; RESP 16–19; TEMP 36.1; O2SAT 95–97
--- NOTE | 2021-11-19 14:56 | W.ED.GENADLT ---
HPI - General Adult General: Chief complaint: General Medical Stated complaint: Vision problems, possible passing out episodes Time Seen by Provider: 11/19/21 14:55 History of Present Illness: Ms. Harvey is a 46-year-old lady with complex past medical history including metastatic cancer status post completion of therapy, liver disease, seizure disorder, migraines, history of PE, COPD with baseline shortness of breath who presents to the emergency department due to headache and abdominal pain. She reports onset of right-sided abdominal pain which is new for her compared to chronic left-sided. Denies associated change in bowel movements, she has had nausea but no vomiting. Additionally she notes headache starting today that is different from her typical headache. She describes it as frontal severe. Additionally she had an episode of presyncopal vision change with position change getting out of the bath where she describes white vision with spots followed by dark vision though she did not fall or hit her head. Overall intensity symptoms is moderate to severe. Course has worsened. No other specific changes in health, exacerbating, or alleviating factors identified. Onset (ago): day(s) Location: head and abdomen Severity: severe Quality: aching and sharp Relieving factors: none Exacerbating factors: none Review of Systems General: Reports: 10 or more systems reviewed and unremarkable except in HPI and below PFSH ED PFSH: Medical History Accidental fentanyl overdose Bilateral pulmonary embolism Cardiac arrest Chronic abdominal pain Chronic hepatitis B Chronic hip pain Cirrhosis COPD (chronic obstructive pulmonary disease) Diabetes mellitus Encephalopathy Gastroesophageal reflux GI bleeding Hepatitis B Hypertension Leg cramps Overdose Pelvic inflammatory disease Stomach cancer Thrombocytopenia Surgical History H/O tubal ligation History of hysterectomy History of laparotomy Family History Mother Diabetes Father CAD (coronary artery disease) Other Cancer Social History Smoking and tobacco status: former smoker Quit status (tobacco): has quit using tobacco Year quit tobacco: 2020 Former quit date comment: 2ppd x 26 year Hx Alcohol intake: never Female Reproductive History: Date of last menstrual period: 08/07/21 Physical Exam Const: COMMON NORMALS: patient oriented x3 and alert GENERAL APPEARANCE: cooperative, well developed and ill appearing (somewhat) HENMT: COMMON NORMALS: normocephalic and atraumatic HEAD & SCALP: normocephalic and atraumatic Eye: COMMON NORMALS: conjunctivae normal CONJUNCTIVA: Yes conjunctivae normal SCLERA: sclerae normal Neck/C-Spine: COMMON NORMALS: supple and no meningeal signs GENERAL: Yes trachea midline Resp: COMMON NORMALS: clear to auscultation bilaterally EFFORT & INSPECTION: Yes able to speak in complete sentences AUSCULTATION: clear to auscultation bilaterally Cardio: COMMON NORMALS: regular rate and regular rhythm RATE: regular rate RHYTHM: regular rhythm GI: COMMON NORMALS: Soft to palpation PALPATION: Yes Soft to palpation, Yes Tenderness to palpation present (GI), Yes Guarding due to palpation present (GI) and No Rigid due to palpation Extremity: GENERAL: Yes normal exam except as noted and No edema Neuro: COMMON NORMALS: patient oriented x3, CN's II-XII intact bilaterally, moves all extremities, no focal motor deficits and no sensory deficits noted SENSORIUM/ORIENTATION: Yes alert and No Orientation impaired MENINGEAL SIGNS: Yes no meningeal signs Psych: COMMON NORMALS: mental status grossly normal and Normal thought process present THOUGHT PROCESS: Normal thought process present Course ED course: - Patient was seen and evaluated by me at bedside - Patient placed on cardiac monitors, IV access obtained - Initial evaluation notable for exam as above. - Labs personally interpreted by me. EKG shows sinus rhythm with no STEMI. - Fluids, analgesia, and headache treatment given - Labs notable for no leukocytosis, mild hemoconcentration. Electrolyte panel similar to prior. Negative delta troponin. No UTI. - Imaging notable for head CT without acute intracranial pathology identified. CT abdomen and pelvis with normal appendix, patient appears to have constipation. - Upon serial reexamination after treatment the patient was Significantly improved with near complete resolution of symptoms - Based on patient history, evaluation, and testing as interpreted the most likely cause of the patient's condition is headache and constipation. - The results of ED evaluation were discussed with the patient including prescriptions and/or symptomatic cares (if applicable) including appropriate and responsible use, followup plan, and return precautions. The patient verbalized understanding and felt safe for discharge. - Patient discharged in satisfactory condition. Note: Click bubbles or prepopulated puckett in note writing are used for assistance with data collection and billing and are inherently more limited than narrative and other text portions of this note. Please use narrative for additional clinical history and defer to narrative/free test for any case of contradictory information. If information appears in only free text or click bubble it should be considered present or absent as reported. Please contact note law writer for clarifications of clinical information or contradictory information. MDM is a brief summary, contradictory or erroneous seeming information should be clarified and full note should be reviewed. Vital Signs: Vital signs: Vital Signs Temperature 97.0 F L 11/19/21 14:15 Pulse Rate 95 11/19/21 19:41 Respiratory Rate 19 H 11/19/21 18:07 Blood Pressure 125/76 11/19/21 19:41 Pulse Oximetry 97 11/19/21 18:05 Oxygen Delivery Me thod 11/19/21 18:05 MDM - General Adult Medical Decision Making 46-year-old lady presenting with various concerns. She endorses presyncope and headache as well as abdominal symptoms. Nonfocal neurologic exam. Patient markedly improved with treatment and satisfactory for outpatient management. Medical Records I reviewed the patient's medical records. Lab Data I reviewed the patient's lab results. : 11/19/21 16:22 11/19/21 16:[address] 11/19/21 15:16 IMPRESSION: No acute intracranial findings. Abdomen/Pelvis CT 11/19/21 17:14 IMPRESSION: 1. Normal appendix. 2. Moderate to large retained feces in the transverse colon and right colon. Laboratory Results WBC 6.1 10^3/uL (4.0-10.0) 11/19/21 16: RBC 4.95 10^6/uL (4.1-5.3) 11/19/21 16:22 Hgb 15.4 g/dL (11.5-15.3) H 11/19/21 16:22 Hct 45.3 % (37.0-47.0) 11/19/21 16: MCV 91.5 fl (81-99) 11/19/21 16:22 MCH 31.1 pg (28.0-34.0) 11/19/21 16: MCHC 34.0 g/dL (30.0-36.0) 11/19/21 16:22 RDW 12.6 % (12.1-15.1) 11/19/21 16:22 Plt Count 177 10^3/cmm (130-400) 11/19/21 16:22 MPV 10.9 fL (7.4-10.4) H 11/19/21 16:22 Neut % (Auto) 56.5 % 11/19/21 16:22 Lymph % (Auto) 29.3 % 11/19/21 16:22 [place] % (Auto) 11.4 % 11/19/21 16:22 Eos % (Auto) 1.8 % 11/19/21 16:22 Baso % (Auto) 0.8 % 11/19/21 16:22 Neut # (Auto) 3.47 10^3/uL (1.8-7.7) 11/19/21 16:22 Lymph # (Auto) 1.8 10^3/uL (0.8-4.8) 11/19/21 16:22 [place] # (Auto) 0.7 10^3/uL (0.2-0.9) 11/19/21 16:22 Eos # (Auto) 0.1 10^3/uL (0.0-0.8) 11/19/21 16:22 Baso # (Auto) 0.1 10^3/uL (0.0-0.1) 11/19/21 16:22 Nucleated RBC % (auto) 0 % 11/19/21 16: Nucleated RBCs # 0.0 /100WBC 11/19/21 16:22 PT 14.60 SECONDS (12.1-14.9) 11/19/21 16:22 INR 1.11 (0.8-1.2) 11/19/21 16:22 APTT 26.7 SECONDS (23.9-36.7) 11/19/21 16:22 Sodium 140 mmol/L (136-145) 11/19/21 16:22 Potassium 3.4 mmol/L (3.5-5.1) L 11/19/21 16:22 Chloride 98 mmol/L (98-107) 11/19/21 16:22 Carbon Dioxide 28 mmol/L (22-29) 11/19/21 16:22 Anion Gap 17.4 (5-19) 11/19/21 16:22 BUN 12 mg/dL (6-20) 11/19/21 16:22 Creatinine 0.7 mg/dL (0.5-0.9) 11/19/21 16:22 GFR Calculation 89.7 mL/min (90-130) L 11/19/21 16:22 Glucose 82 mg/dL (65-115) 11/19/21 16:22 Calculated Osmolality 289 mOsm/kg (285-295) 11/19/21 16:22 Calcium 10.0 mg/dL (8.5-10.5) 11/19/21 16:22 Magnesium 1.8 mg/dL (1.7-2.3) 11/19/21 16:22 Total Bilirubin 0.8 mg/dL (0.15-1.2) 11/19/21 16:22 AST 26 U/L (0-32) 11/19/21 16:22 ALT 14 U/L (0-33) 11/19/21 16:22 Alkaline Phosphatase 123 U/L (35-105) H 11/19/21 16:22 Troponin T Baseline 19 ng/L (0-10) H 11/19/21 16:22 Troponin T 120 Minute 15.18 ng/L (0-10) H 11/19/21 18:45 Delta Troponin T -3.82 ABS# (0-10) L 11/19/21 18:45 C-Reactive Protein 3.0 mg/L (0.0-4.9) 11/19/21 16:22 NT-Pro-B Natriuret Pep 534 pg/mL (0-125) H 11/19/21 16:22 Total Protein 8.4 g/dL (6.6-8.7) 11/19/21 16:22 Albumin 4.0 g/dL (3.5-5.2) 11/19/21 16:22 Globulin 4.4 g/dL (1.3-4.6) 11/19/21 16:22 Procalcitonin 0.05 ng/mL (0-0.5) 11/19/21 16:22 TSH 0.98 uIU/mL (0.27-4.20) 11/19/21 16:22 Urine Color Yellow (Yellow) 11/19/21 18:35 Urine Appearance Clear (CLEAR) 11/19/21 18:35 Urine pH 5 (5-7) 11/19/21 18:35 Ur Specific [place] 1.020 (1.005-1.030) 11/19/21 18:35 Urine Protein Neg (Negative) 11/19/21 18:35 Urine Glucose (UA) Norm (Normal) 11/19/21 18:35 Urine Ketones Negative (Negative) 11/19/21 18:35 Urine Blood Neg (Negative) 11/19/21 18:35 Urine Nitrate Negative (Negative) 11/19/21 18:35 Urine Bilirubin Neg (Negative) 11/19/21 18:35 Urine Urobilinogen 1 mg/dL (Negative) H 11/19/21 18:35 Ur Leukocyte Esterase Negative (Negative) 11/19/21 18:35 Discharge Plan Discharge Patient Disposition: Home Clinical Impression: Dehydration, mild, Abdominal pain, Pre-syncope, Constipation, Headache Condition: Stable Prescriptions: No Action Xifaxan 550 mg tablet 550 mg PO BID furosemide 40 mg tablet 80 mg PO TID PRN (Reason: Abdominal Distention) prednisone 20 mg tablet 60 mg PO DAILY 5 Days Qty: 15 0RF levofloxacin 750 mg tablet 750 mg PO DAILY 10 Days Qty: 10 0RF levothyroxine 50 mcg tablet 50 mcg PO QAM Qty: 30 0RF Rx Instructions: needs an appt with labs before more refills Bevespi Aerosphere 9-4.8 mcg HFA aerosol inhaler 2 puff inhalation BID Qty: 10.7 0RF Lantus U-100 Insulin 100 unit/mL solution 40 unit SUBCUT BEDTIME tizanidine 4 mg tablet 4 mg PO Q6H PRN (Reason: Muscle Spasm) sumatriptan succinate [Imitrex] 50 mg Tablet 50 mg PO Q2H MDD 2 tabs PRN (Reason: Migraine Headache) spironolactone 25 mg tablet 25 mg PO QAM potassium chloride 20 mEq tablet,ER particles/crystals 20 meq PO QAM amitriptyline 25 mg tablet 25 mg PO BEDTIME levetiracetam 750 mg tablet 750 mg PO BID lactulose 10 gram/15 mL solution 90 ml PO TID PRN (Reason: Constipation) pantoprazole 40 mg tablet,delayed release (DR/EC) 40 - 80 mg PO DAILY PRN (Reason: Acid Reflux) albuterol sulfate 90 mcg/actuation HFA aerosol inhaler 1 inh inhalation Q6H PRN (Reason: shortness of breath or wheezing) Qty: 8.5 0RF aspirin 81 mg Tablet,Delayed Release (Dr/Ec) 81 mg PO DAILY oxycodone 5 mg tablet 5 mg PO Q12H PRN (Reason: Pain) tenofovir disoproxil fumarate 300 mg tablet 300 mg PO QAM lamotrigine 200 mg Tablet 200 mg PO DAILY metoclopramide HCl 10 mg Tablet 10 mg PO DAILY lubiprostone [Amitiza] 24 mcg Capsule 24 mcg PO DAILY gabapentin 300 mg capsule 300 mg PO BID Creon 3,000-9,500- 15,000 unit capsule,delayed release(DR/EC) 1 cap PO TID Narcan 4 mg/actuation spray,non-aerosol See Rx Instructions .ROUTE .COMPLEX Qty: 1 0RF Rx Instructions: as directed intranasally prn Discharge Orders: Discharge ED (Routine); Ordered 11/19/21 Ordered By: Robert Rosa Referrals: Francisco Mckinley DO [Primary Care Provider] - Discharge Diet: Usual diet Discharge Activity: Increase activity as tolerated Patient Instructions: Acute Headache (ED), Abdominal Pain (ED), Near Syncope (ED), Opioid Safety Activity Restrictions/Additional Instructions: Thank you for visiting the emergency department. You were seen and evaluated for multiple concerns. The exact cause of your symptoms is unclear. I believe that the episode of visual disturbance with headache earlier was more related to position change leading to low blood pressure. Your abdominal pain is most likely related to constipation. I recommend continuing your bowel regimen with addition of MiraLAX starting with 2 times per day 1 capful and then adjusting to ensure that you are having multiple applesauce consistency stools per day. Please ensure that you are staying hydrated. Please follow-up with your primary care provider. Return to the emergency department for worsening symptoms or anything else that you are concerned about a feel needs emergency department evaluation. Coding Level of Care Code ED Climate Change Analyst for 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
--- NOTE | 2021-11-19 15:16 | CTR_ITS ---
PROCEDURE INFORMATION: Exam: CT Head Without Contrast Exam date and time: 11/19/2021 3:39 PM Age: 46 years old Clinical indication: Pain; Headache not specified; Additional info: AMS, headache TECHNIQUE: Imaging protocol: Computed tomography of the head without contrast. Radiation optimization: All CT scans at this facility use at least one of these dose optimization techniques: automated exposure control; mA and/or kV adjustment per patient size (includes targeted exams where dose is matched to clinical indication); or iterative reconstruction. COMPARISON: CT head wo con* [id number] 10/22/2021 11:43 PM RADIATION DOSE METRICS: Total DLP (mGy-cm): 1020 FINDINGS: Brain: Normal. No hemorrhage. Unremarkable white matter. No mass effect. Cerebral ventricles: No ventriculomegaly. Paranasal sinuses: Visualized sinuses are unremarkable. No fluid levels. Mastoid air cells: Visualized mastoid air cells are well aerated. Dental: The patient is edentulous. Bones/joints: Unremarkable. No acute fracture. Soft tissues: Unremarkable. CT/CT head wo con* [id number] IMPRESSION: No acute intracranial findings.
--- NOTE | 2021-11-19 15:17 | ECG_ITS ---
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 Measurements Intervals [place] Rate: 67 P: 73 NM: 165 QRS: 70 QRSD: 99 T: 72 QT: 449 QTc: 476 Interpretive Statements SINUS RHYTHM POSSIBLE LEFT ATRIAL ENLARGEMENT [-0.1mV P-WAVE IN V1/V2] Compared to ECG 11/04/2021 14:33:36 No significant changes Electronically Signed On 11-20-2021 13:06:18 CDT by Pat Gaitan M.D. [id number]
[2021-11-19 16:28] LABS: Basophils # 0.1 10^3/uL (0.0-0.1); Basophils % 0.8 %; Eosinophils # 0.1 10^3/uL (0.0-0.8); Eosinophils % 1.8 %; Hematocrit 45.3 % (37.0-47.0); Hemoglobin 15.4 g/dL (11.5-15.3); Lymphocytes # 1.8 10^3/uL (0.8-4.8); Lymphocytes % 29.3 %; Mean Corpuscular Hemoglobin 31.1 pg (28.0-34.0); Mean Corpuscular Volume 91.5 fl (81-99); Mean Platelet Volume 10.9 fL (7.4-10.4); Monocytes # 0.7 10^3/uL (0.2-0.9); Monocytes % 11.4 %; Neutrophils # 3.47 10^3/uL (1.8-7.7); Neutrophils % 56.5 %; Nucleated Red Blood Cells % 0 %; Platelet Count 177 10^3/cmm (130-400); Red Blood Count 4.95 10^6/uL (4.1-5.3); Red Cell Distribution Width 12.6 % (12.1-15.1); White Blood Count 6.1 10^3/uL (4.0-10.0)
[2021-11-19] MEDS: sodium chloride 0.9% 1,000 ML 999 ML IV (16:29)
[2021-11-19] MEDS: metoclopramide 5 mg/mL SDV 2 mL 10 MG IVP (16:30)
[2021-11-19 16:37] LABS: INR 1.11 (0.8-1.2)
[2021-11-19 16:38] LABS: Partial Thromboplastin Time 26.7 SECONDS (23.9-36.7)
[2021-11-19 16:58] LABS: Troponin(5th) Baseline 19 ng/L (0-10)
[2021-11-19 17:04] LABS: NT Pro B Type Natriuretic Pept 534 pg/mL (0-125); Procalcitonin 0.05 ng/mL (0-0.5); Thyroid Stimulating Hormone 0.98 uIU/mL (0.27-4.20)
--- NOTE | 2021-11-19 17:14 | CTR_ITS ---
PROCEDURE INFORMATION: Exam: CT Abdomen And Pelvis Without Contrast Exam date and time: 11/19/2021 5:36 PM Age: 46 years old Clinical indication: Abdominal pain; Generalized; Additional info: New right sided abd pain TECHNIQUE: Imaging protocol: Computed tomography of the abdomen and pelvis without contrast. Radiation optimization: All CT scans at this facility use at least one of these dose optimization techniques: automated exposure control; mA and/or kV adjustment per patient size (includes targeted exams where dose is matched to clinical indication); or iterative reconstruction. COMPARISON: CT chest abd pel wo con 08/06/2021 8:15 PM RADIATION DOSE METRICS: Total DLP (mGy-cm): 917.13 FINDINGS: Liver: Normal. No mass. Gallbladder and bile ducts: Normal. No calcified stones. No ductal dilation. Pancreas: Normal. No ductal dilation. Spleen: Normal. No splenomegaly. Adrenal glands: Normal. No mass. Kidneys and ureters: Normal. No hydronephrosis. Stomach and bowel: Moderate to large retained feces in the transverse colon and right colon. Appendix: Normal appendix. Intraperitoneal space: Unremarkable. No free air. No significant fluid collection. Vasculature: Calcification of the abdominal aorta and/or iliac arteries consistent with atherosclerotic vessel disease. Lymph nodes: Unremarkable. No enlarged lymph nodes. Urinary bladder: Unremarkable as visualized. Reproductive: Status post hysterectomy. Bones/joints: Unremarkable. No acute fracture. Soft tissues: Unremarkable. CT/CT abdomen pelvis wo con [id number] IMPRESSION: 1. Normal appendix. 2. Moderate to large retained feces in the transverse colon and right colon.
[2021-11-19 17:15] LABS: Alanine Aminotransferase 14 U/L (0-33); Alkaline Phosphatase 123 U/L (35-105); Anion Gap 17.4 (5-19); Aspartate Amino Transferase 26 U/L (0-32); Blood Urea Nitrogen 12 mg/dL (6-20); Carbon Dioxide 28 mmol/L (22-29); Chloride 98 mmol/L (98-107); Globulin 4.4 g/dL (1.3-4.6); Glomerular Filtration Rate 89.7 mL/min (90-130); Glucose 82 mg/dL (65-115); Magnesium 1.8 mg/dL (1.7-2.3); Osmolality Calculated 289 mOsm/kg (285-295); Potassium 3.4 mmol/L (3.5-5.1); Sodium 140 mmol/L (136-145); Total Bilirubin 0.8 mg/dL (0.15-1.2); Total Protein 8.4 g/dL (6.6-8.7)
--- NOTE | 2021-11-19 17:51 | ECG_ITS ---
[facility] Test Date: 2021-11-19 Pat Name: Maribell Foreman Department: Room: Gender: Female Pedigree Tracer: : 1975 Requested By: Robert Rosa Order Number: [id number] Rowland MD: Pat Gaitan M.D. Measurements Intervals [place] Rate: 67 P: 74 MS: 159 QRS: 74 QRSD: 106 T: 73 QT: 439 QTc: 465 Interpretive Statements SINUS RHYTHM WITH SINUS ARRHYTHMIA POSSIBLE LEFT ATRIAL ENLARGEMENT [-0.1mV P-WAVE IN V1/V2] Compared to ECG 11/19/2021 15:35:28 No significant changes Electronically Signed On 11-20-2021 13:15:36 CDT by Pat Gaitan M.D. [id number]
[2021-11-19] MEDS: morphine 4 mg/mL SDV 1 mL IVP (18:07)
[2021-11-19 19:00] LABS: Add Urine Microscopic? NO; Charge for UA Resulting for Rev
--- NOTE | 2021-11-19 19:11 | PC.NURSE ---
Report to SUJIT Brunson
[2021-11-19 19:18] LABS: Troponin 5 2HR 15.18 ng/L (0-10)
[2021-11-19 19:18] LABS: Bilirubin Urine Neg (Negative); Blood Urine Neg (Negative); Glucose Urine UA Norm (Normal); Ketones Urine Negative (Negative); Leukocyte Esterase Urine Negative (Negative); Nitrate Urine Negative (Negative); Protein Urine Neg (Negative); Urine Appearance Clear (CLEAR); Urine Color Yellow (Yellow); Urobilinogen Urine 1 mg/dL (Negative); pH Urine 5 (5-7)
[2021-11-19 19:20] LABS: Troponin 5 2HR Delta -3.82 ABS# (0-10)
== END 2021-11-19 20:24 | disposition home or self-care (01) ==
PROVIDERS: Emergency Provider Emergency Medicine; PCP Family Medicine
DX: K59.00 Constipation, unspecified (principal); R51.9 Headache, unspecified; E86.0 Dehydration; R55 Syncope and collapse; Z79.4 Long term (current) use of insulin; Z79.82 Long term (current) use of aspirin; Z86.19 Personal history of other infectious and parasitic diseases; J44.9 Chronic obstructive pulmonary disease, unspecified; E11.9 Type 2 diabetes mellitus without complications; I10 Essential (primary) hypertension; Z85.028 Personal history of other malignant neoplasm of stomach; Z87.891 Personal history of nicotine dependence
CPT/HCPCS: 70450; 74176; 80053; 81003; 83735; 83880; 84145; 84443; 84484; 85025; 85610; 85730; 86140; 87040; 93005; 96361; 96374; 96375; 99285; J2270; J2765; J7030

== ENCOUNTER 2022-01-05 11:36 | Emergency (ER) | payer MEDICAID, SELFPAY ==
[2022-01-05 12:07] VITALS: BP 123/87; PULSE 70; RESP 15; TEMP 36.4; O2SAT 98
[2022-01-05 12:08] VITALS: BMI 25.0
[2022-01-05 13:50] LABS: Basophils # 0.1 10^3/uL (0.0-0.1); Eosinophils # 0.2 10^3/uL (0.0-0.8); Hematocrit 42.1 % (37.0-47.0); Hemoglobin 14.4 g/dL (11.5-15.3); Lymphocytes # 1.8 10^3/uL (0.8-4.8); Lymphocytes % 31.1 %; Mean Corpuscular HGB Conc 34.2 g/dL (30.0-36.0); Mean Corpuscular Volume 90.5 fl (81-99); Monocytes # 0.5 10^3/uL (0.2-0.9); Monocytes % 9.2 %; Neutrophils # 3.11 10^3/uL (1.8-7.7); Neutrophils % 54.4 %; Nucleated Red Blood Cells % 0 %; Platelet Count 183 10^3/cmm (130-400); Red Blood Count 4.65 10^6/uL (4.1-5.3); Red Cell Distribution Width 13.1 % (12.1-15.1); White Blood Count 5.7 10^3/uL (4.0-10.0)
--- NOTE | 2022-01-05 14:05 | W.ED.WEAKNES ---
HPI - Weakness General: Chief complaint: Weakness Stated complaint: cant eat Time Seen by Provider: 01/05/22 13:32 Source: patient Mode of arrival: ambulatory History of Present Illness: 46-year-old female with a history of hepatitis B with advancing liver disease presents to the emergency room with complaints of generally not feeling well nausea and vomiting and myalgias last couple of days. No fever sweats or chills no shortness of breath or cough. Denies any chest pain. No dysuria urgency or frequency. MD Complaint: generalized weakness Onset (ago): day(s) Duration: constant Migration: none Severity: moderate Relieving factors: none Exacerbating factors: none Associated symptoms: Reports vomiting; Denies chest pain, chills, confusion, melena, decreased appetite, diaphoresis, dysuria, easy bruising, fever(s), headache(s), myalgias, nausea, short of breath or syncope Review of Systems Const: Reports: fatigue and malaise; Denies: fever(s), chills or diaphoresis Card: Denies: chest pain or syncope GI: Reports: abdominal pain and vomiting; Denies: nausea, hematemesis, coffee ground emesis, hematochezia or melena : Denies: flank pain, difficulty voiding, dysuria, urinary frequency or urinary urgency Neuro: Denies: headache(s) or confusion [place]/Lymph: Denies: easy bruising PFSH ED PFSH: Medical History Accidental fentanyl overdose Bilateral pulmonary embolism Cardiac arrest Chronic abdominal pain Chronic hepatitis B Chronic hip pain Cirrhosis COPD (chronic obstructive pulmonary disease) Diabetes mellitus Encephalopathy Gastroesophageal reflux GI bleeding Hepatitis B Hypertension Leg cramps Overdose Pelvic inflammatory disease Stomach cancer Thrombocytopenia Surgical History H/O tubal ligation History of hysterectomy History of laparotomy Family History Mother Diabetes Father CAD (coronary artery disease) Other Cancer Social History Smoking and tobacco status: former smoker Quit status (tobacco): has quit using tobacco Year quit tobacco: 2020 Former quit date comment: 2ppd x 26 year Hx Alcohol intake: never Female Reproductive History: Date of last menstrual period: 08/07/21 Physical Exam Const: GENERAL APPEARANCE: cooperative and comfortable ORIENTATION/CONSCIOUSNESS: Yes awake, Yes oriented to person, Yes oriented to place and Yes oriented to time HENMT: COMMON NORMALS: normocephalic, atraumatic and hearing grossly normal bilaterally HEAD & SCALP: normocephalic and atraumatic Resp: COMMON NORMALS: normal respiratory effort, No retractions, No use of accessory muscles and clear to auscultation bilaterally AUSCULTATION: clear to auscultation bilaterally Cardio: COMMON NORMALS: regular rate, regular rhythm and No murmurs present (Cardio) RATE: regular rate RHYTHM: regular rhythm GI: COMMON NORMALS: Soft to palpation and No hepatosplenomegaly present AUSCULTATION: Yes normoactive bowel sounds PALPATION: Yes Soft to palpation, No Tenderness to palpation present (GI), No Guarding due to palpation present (GI) and Yes No hepatosplenomegaly present Extremity: COMMON NORMALS: normal to inspection, capillary refill normal, no clubbing, cyanosis or edema, no calf tenderness and no pedal edema Neuro: SENSORIUM/ORIENTATION: Yes oriented to person, Yes oriented to place and Yes oriented to time Skin: COMMON NORMALS: no rashes or lesions noted GENERAL SKIN EXAM: no rashes or lesions noted Course Vital Signs: Vital signs: Vital Signs Temperature 97.6 F 01/05/22 12:07 Pulse Rate 79 01/05/22 16:32 Respiratory Rate 16 01/05/22 15:10 Blood Pressure 145/96 01/05/22 16:32 Pulse Oximetry 96 01/05/22 16:32 Oxygen Delivery Me thod 01/05/22 12:07 MDM - Weakness Medical Decision Making Labs and imaging reviewed.No acute abdominal findings on exam. No evidence of acute GI bleed. Patient improved with IV fluids. UA was negative. [place] also negative. Ammonia level is elevated but is at her baseline and she is not having any acute encephalopathy. Blood sugar is 132. Continue current medications follow-up with her primary care doctor return if is further problems. Should continue her lactulose scheduled. Medical Records I reviewed the patient's medical records. Lab Data I reviewed the patient's lab results. : 01/05/22 13:29 01/05/22 13:29 Laboratory Results WBC 5.7 10^3/uL (4.0-10.0) 01/05/22 13: RBC 4.65 10^6/uL (4.1-5.3) 01/05/22 13:29 Hgb 14.4 g/dL (11.5-15.3) 01/05/22 13: Hct 42.1 % (37.0-47.0) 01/05/22 13:29 MCV 90.5 fl (81-99) 01/05/22 13:29 MCH 31.0 pg (28.0-34.0) 01/05/22 13: MCHC 34.2 g/dL (30.0-36.0) 01/05/22 13: RDW 13.1 % (12.1-15.1) 01/05/22 13: Plt Count 183 10^3/cmm (130-400) 01/05/22 13: MPV 10.0 fL (7.4-10.4) 01/05/22 13:29 Neut % (Auto) 54.4 % 01/05/22 13:29 Lymph % (Auto) 31.1 % 01/05/22 13:29 [place] % (Auto) 9.2 % 01/05/22 13:29 Eos % (Auto) 4.0 % 01/05/22 13:29 Baso % (Auto) 1.0 % 01/05/22 13:29 Neut # (Auto) 3.11 10^3/uL (1.8-7.7) 01/05/22 13:29 Lymph # (Auto) 1.8 10^3/uL (0.8-4.8) 01/05/22 13:29 [place] # (Auto) 0.5 10^3/uL (0.2-0.9) 01/05/22 13:29 Eos # (Auto) 0.2 10^3/uL (0.0-0.8) 01/05/22 13:29 Baso # (Auto) 0.1 10^3/uL (0.0-0.1) 01/05/22 13:29 Nucleated RBC % (auto) 0 % 01/05/22 13: Nucleated RBCs # 0.0 /100WBC 01/05/22 13:29 Sodium 135 mmol/L (136-145) L 01/05/22 13:29 Potassium 3.6 mmol/L (3.5-5.1) 01/05/22 13:29 Chloride 101 mmol/L (98-107) 01/05/22 13:29 Carbon Dioxide 22 mmol/L (22-29) 01/05/22 13:29 Anion Gap 15.6 (5-19) 01/05/22 13:29 BUN 8 mg/dL (6-20) 01/05/22 13:29 Creatinine 0.5 mg/dL (0.5-0.9) 01/05/22 13:29 GFR Calculation 132.2 mL/min (90-130) H 01/05/22 13:29 Glucose 79 mg/dL (65-115) 01/05/22 13:29 Calculated Osmolality 277 mOsm/kg (285-295) L 01/05/22 13:29 Calcium 8.8 mg/dL (8.5-10.5) 01/05/22 13:29 Ammonia 109 umol/L (11-51) H 01/05/22 14:23 Lipase 16 U/L (13-60) 01/05/22 13:29 Urine Color Yellow (Yellow) 01/05/22 14:35 Urine Appearance Clear (CLEAR) 01/05/22 14:35 Urine pH 6.5 (5-7) 01/05/22 14:35 Ur Specific [place] 1.015 (1.005-1.030) 01/05/22 14:35 Urine Protein Trace (Negative) 01/05/22 14:35 Urine Glucose (UA) Norm (Normal) 01/05/22 14:35 Urine Ketones Negative (Negative) 01/05/22 14:35 Urine Blood Trace (Negative) H 01/05/22 14:35 Urine Nitrate Negative (Negative) 01/05/22 14:35 Urine Bilirubin 1+ (Negative) H 01/05/22 14:35 Urine Urobilinogen 1 mg/dL (Negative) H 01/05/22 14:35 Ur Leukocyte Esterase Negative (Negative) 01/05/22 14:35 Urine RBC 0-4 /hpf (0-2) H 01/05/22 14:35 Urine WBC 0-4 /hpf (0-5) H 01/05/22 14:35 Ur Squamous Epith Cells 15-25 /hpf (0-5) H 01/05/22 14:35 Amorphous Sediment Not Reportable 01/05/22 14:35 Urine Bacteria 2+ /hpf (NONE) H 01/05/22 14:35 Urine Mucus 2+ /hpf 01/05/22 14:35 Coronavirus 229E (PCR) Not detected (NOT DETECT) 01/05/22 13:29 SARS-CoV-2 (PCR) Not detected (NOT DETECT) 01/05/22 13:29 Discharge Plan Discharge Patient Disposition: Home Clinical Impression: Nausea & vomiting Condition: Stable Prescriptions: New promethazine 25 mg tablet 25 mg PO QID PRN (Reason: nausea and vomiting) Qty: 20 0RF No Action Xifaxan 550 mg tablet 550 mg PO BID furosemide 40 mg tablet 80 mg PO TID levothyroxine 50 mcg tablet 50 mcg PO QAM Qty: 30 0RF Rx Instructions: needs an appt with labs before more refills Bevespi Aerosphere 9-4.8 mcg HFA aerosol inhaler 2 puff inhalation BID Qty: 10.7 3RF insulin glargine [Lantus U-100 Insulin] 100 unit/mL solution See Rx Instructions .ROUTE .COMPLEX Rx Instructions: 20 unit subcutaneously in the morning / 40 unit subcutaneously in the evening tizanidine 4 mg tablet 4 mg PO Q6H PRN (Reason: Muscle Spasm) sumatriptan succinate [Imitrex] 50 mg Tablet 50 mg PO Q2H MDD 2 tabs PRN (Reason: Migraine Headache) spironolactone 25 mg tablet 25 mg PO BID potassium chloride 20 mEq tablet,ER particles/crystals 20 meq PO QAM levetiracetam 750 mg tablet 750 mg PO BID lactulose 10 gram/15 mL solution 90 ml PO TID PRN (Reason: Constipation) pantoprazole 40 mg tablet,delayed release (DR/EC) 40 - 80 mg PO DAILY PRN (Reason: Acid Reflux) albuterol sulfate 90 mcg/actuation HFA aerosol inhaler 1 inh inhalation Q6H PRN (Reason: shortness of breath or wheezing) Qty: 8.5 0RF tenofovir disoproxil fumarate 300 mg tablet 300 mg PO QAM lamotrigine 200 mg Tablet 200 mg PO DAILY metoclopramide HCl 10 mg Tablet 10 mg PO DAILY PRN (Reason: Nausea) lubiprostone [Amitiza] 24 mcg Capsule 24 mcg PO DAILY gabapentin 300 mg capsule 300 mg PO BID Creon 3,000-9,500- 15,000 unit capsule,delayed release(DR/EC) 1 cap PO TID naloxone [Narcan] 4 mg/actuation spray,non-aerosol See Rx Instructions .ROUTE .COMPLEX Qty: 1 0RF Rx Instructions: as directed intranasally prn oxycodone-acetaminophen 10-325 mg tablet 1 tab PO Q8H PRN (Reason: Pain) scopolamine base 1 mg over 3 days patch 3 day 1 mg transdermal Q3D Discharge Orders: Discharge ED (Routine); Ordered 01/05/22 Ordered By: Lane Gaffney Referrals: Francisco Mckinley DO [Primary Care Provider] - Discharge Diet: Usual diet Discharge Activity: Increase activity as tolerated Patient Instructions: Opioid Safety, Pain Management Activity Restrictions/Additional Instructions: Follow-up with your primary care doctor. Recommend avoiding use of scopolamine patch and instead use promethazine as needed. Coding Level of Care Code ED Nuclear Operations Specialist for 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
[2022-01-05 14:18] LABS: Blood Urea Nitrogen 8 mg/dL (6-20); Calcium 8.8 mg/dL (8.5-10.5); Carbon Dioxide 22 mmol/L (22-29); Chloride 101 mmol/L (98-107); Glomerular Filtration Rate 132.2 mL/min (90-130); Glucose 79 mg/dL (65-115); Osmolality Calculated 277 mOsm/kg (285-295); Sodium 135 mmol/L (136-145)
[2022-01-05 14:20] LABS: Anion Gap 15.6 (5-19); Potassium 3.6 mmol/L (3.5-5.1)
[2022-01-05 14:30] VITALS: PULSE 67; O2SAT 94
[2022-01-05 14:44] LABS: Lipase 16 U/L (13-60)
[2022-01-05] MEDS: sodium chloride 0.9% 1,000 ML 999 ML IV ×2 (14:46)
[2022-01-05 14:47] VITALS: RESP 16; O2SAT 95
[2022-01-05] MEDS: promethazine 25 mg/mL SDV 1 mL IM (14:47)
[2022-01-05] MEDS: morphine 4 mg/mL SDV 1 mL 2 MG IVP (14:47)
[2022-01-05 14:52] LABS: Add Urine Microscopic? YES; Bilirubin Urine 1+ (Negative); Blood Urine Trace (Negative); Glucose Urine UA Norm (Normal); Ketones Urine Negative (Negative); Leukocyte Esterase Urine Negative (Negative); Nitrate Urine Negative (Negative); Protein Urine Trace (Negative); Specific Gravity, Urine 1.015 (1.005-1.030); Urine Appearance Clear (CLEAR); Urine Color Yellow (Yellow); Urobilinogen Urine 1 mg/dL (Negative); pH Urine 6.5 (5-7)
[2022-01-05 14:53] LABS: Ammonia 109 umol/L (11-51)
[2022-01-05 15:10] VITALS: BP 116/84; PULSE 67; RESP 16; O2SAT 97
[2022-01-05 15:30] LABS: Adenovirus Not Detected (NOT DETECT); Chlamydia Pneumoniae Not Detected (NOT DETECT); Coronavirus 229E,HKU1,NL63,OC4 Not Detected (NOT DETECT); Human Metapneumovirus Not Detected (NOT DETECT); Human Rhinovirus/Enterovirus Not Detected (NOT DETECT); Influenza A Not Detected (NOT DETECT); Influenza A H1 Not Detected (NOT DETECT); Influenza A H1-2009 Not Detected (NOT DETECT); Influenza A H3 Not Detected (NOT DETECT); Influenza B Not Detected (NOT DETECT); Mycoplasma Pneumoniae Not Detected (NOT DETECT); Parainfluenza Virus Type 1 Not Detected (NOT DETECT); Parainfluenza Virus Type 2 Not Detected (NOT DETECT); Parainfluenza Virus Type 3 Not Detected (NOT DETECT); Parainfluenza Virus Type 4 Not Detected (NOT DETECT); Respiratory Syncytial Virus A Not Detected (NOT DETECT); Respiratory Syncytial Virus B Not Detected (NOT DETECT); SARS-COV-2 Not Detected (NOT DETECT)
[2022-01-05 15:37] LABS: Add Urine Culture? No; Bacteria Urine 2+ /hpf; Mucus Urine 2+ /hpf; RBC Urine 0-4 /hpf (0-2); Squamous Epithelial Cell Urine 15-25 /hpf (0-5); WBC Urine 0-4 /hpf (0-5)
[2022-01-05 16:30] VITALS: BP 145/96; PULSE 79; O2SAT 96
[2022-01-05 16:32] VITALS: BP 145/96; PULSE 79; O2SAT 96
== END 2022-01-05 16:35 | disposition home or self-care (01) ==
PROVIDERS: Emergency Medicine; Emergency Provider Family Medicine; PCP Family Medicine
DX: R11.2 Nausea with vomiting, unspecified (principal); Z79.4 Long term (current) use of insulin; Z20.822 Contact with and (suspected) exposure to COVID-19; Z87.891 Personal history of nicotine dependence; Z86.19 Personal history of other infectious and parasitic diseases; J44.9 Chronic obstructive pulmonary disease, unspecified; E11.9 Type 2 diabetes mellitus without complications; I10 Essential (primary) hypertension; Z85.028 Personal history of other malignant neoplasm of stomach
CPT/HCPCS: 36415; 80048; 81001; 82140; 83690; 85025; 87635; 96361; 96372; 96374; 96375; 99284; J2270; J2550; J7030

== ENCOUNTER 2022-02-11 13:58 | Emergency (ER) | payer MEDICAID, SELFPAY ==
[2022-02-11 14:08] VITALS: BP 175/119; PULSE 111; RESP 16; TEMP 37.7; O2SAT 96
[2022-02-11 14:37] VITALS: BP 175/119; PULSE 111; RESP 16; TEMP 37.7; O2SAT 96
--- NOTE | 2022-02-11 14:43 | W.ED.GENADLT ---
Documented by User: ESPERANZA Lepe 02/13/22 07:20 HPI - General Adult General: Chief complaint: General Medical Stated complaint: out of meds/in severe pain Time Seen by Provider: 02/11/22 14:13 History of Present Illness: Patient is a 46-year-old female comes in the ED in need of medication refill. Patient has stage IV liver failure and takes p.o. morphine for pain. She states that her PCP prescribes her the morphine when on vacation and she has been out of her p.o. morphine for approximately 3 days. She can get in to get her prescription refilled till Sunday, February 13 when her doctor gets back. Associated symptoms: Deny chest pain, dyspnea, headache(s), nausea, rash, palpitations or vomiting Review of Systems Const: Denies: fever(s), chills or fatigue Eyes: Denies: change in vision or eye discomfort ENMT: Denies: throat pain, odynophagia, nasal discharge or nasal congestion Card: Denies: chest pain, palpitations, edema, swelling of feet/ankles, dyspnea on exertion or orthopnea Resp: Denies: dyspnea, productive cough or non-productive cough GI: Denies: abdominal pain, nausea, vomiting, diarrhea, constipation or hematochezia : Denies: flank pain, dysuria or hematuria Musc: Denies: neck pain, back pain or extremity swelling Skin/Breast: Denies: rash or new lesions Neuro: Denies: headache(s), numbness in extremities or weakness in extremities PFS ED PFSH: Medical History Accidental fentanyl overdose Bilateral pulmonary embolism Cardiac arrest Chronic abdominal pain Chronic hepatitis B Chronic hip pain Cirrhosis COPD (chronic obstructive pulmonary disease) Diabetes mellitus Encephalopathy Gastroesophageal reflux GI bleeding Hepatitis B Hypertension Leg cramps Overdose Pelvic inflammatory disease Stomach cancer Thrombocytopenia Surgical History H/O tubal ligation History of hysterectomy History of laparotomy Family History Mother Diabetes Father CAD (coronary artery disease) Other Cancer Social History Smoking and tobacco status: former smoker Quit status (tobacco): has quit using tobacco Year quit tobacco: 2020 Former quit date comment: 2ppd x 26 year Hx Alcohol intake: never Female Reproductive History: Date of last menstrual period: 08/07/21 Physical Exam Const: COMMON NORMALS: patient oriented x3 and alert GENERAL APPEARANCE: cooperative HENMT: COMMON NORMALS: normocephalic HEAD & SCALP: normocephalic MOUTH: Normal oral and palatal mucosa present THROAT: posterior oropharynx normal and uvula midline Eye: COMMON NORMALS: Equal, round and reactive pupils present and conjunctivae normal CONJUNCTIVA: Yes conjunctivae normal PUPIL: Yes Equal, round and reactive pupils present Neck/C-Spine: COMMON NORMALS: supple GENERAL: Yes normal visual inspection Resp: COMMON NORMALS: normal respiratory effort, No retractions, No use of accessory muscles and clear to auscultation bilaterally AUSCULTATION: clear to auscultation bilaterally Cardio: COMMON NORMALS: regular rate, regular rhythm, S1 normal heart sound present, S2 normal heart sound present, No gallops present (Cardio), No clicks present (Cardio), No murmurs present (Cardio) and Peripheral pulses 2+ throughout RATE: regular rate RHYTHM: regular rhythm HEART SOUNDS: S1 normal heart sound present and S2 normal heart sound present PERIPHERAL PULSES: Peripheral pulses 2+ throughout GI: COMMON NORMALS: Normal to inspection, nondistended, normoactive bowel sounds present, Soft to palpation, non-tender and no masses PALPATION: Yes Soft to palpation : COMMON NORMALS: Yes no CVA tenderness BLADDER/KIDNEY EXAM: Yes no CVA tenderness Back/Pelvis: COMMON NORMALS: no CVA tenderness Extremity: COMMON NORMALS: normal to inspection Neuro: COMMON NORMALS: patient oriented x3 SENSORIUM/ORIENTATION: Yes alert GAIT: Yes Normal gait present Skin: GENERAL SKIN EXAM: dry skin Course Vital Signs: Vital signs: Vital Signs Temperature 99.8 F H 02/11/22 14:37 Pulse Rate 87 02/11/22 15:20 Respiratory Rate 16 02/11/22 15:20 Blood Pressure 175/119 02/11/22 14:37 Pulse Oximetry 99 02/11/22 15:20 Oxygen Delivery Me thod 02/11/22 14:37 [facility] - General Adult Medical Decision Making Patient is a 46-year-old female who comes to the ED for medication refill. Patient is out of her p.o. morphine that she takes because her doctor went on vacation and has been out of town the past several days. I told 1 of patient's home health nurses and spoke with her about her medications and confirm that she is on p.o. morphine 30 mg twice daily. I sent patient home with a prescription for 3 p.o. morphine 30 mg tablets which should be enough for her to get through the next day and a half until she can talk with doctor on Sunday. Patient understood and agreed with plan. Dr. Gaffney agreed with medication refill and signed prescription. Discharge Plan Discharge Patient Disposition: Home Clinical Impression: Medication refill Condition: Stable Prescriptions: No Action Xifaxan 550 mg tablet 550 mg PO BID furosemide 40 mg tablet 80 mg PO TID levothyroxine 50 mcg tablet 50 mcg PO QAM Qty: 30 0RF Rx Instructions: needs an appt with labs before more refills Bevespi Aerosphere 9-4.8 mcg HFA aerosol inhaler 2 puff inhalation BID Qty: 10.7 3RF insulin glargine [Lantus U-100 Insulin] 100 unit/mL solution See Rx Instructions .ROUTE .COMPLEX Rx Instructions: 20 unit subcutaneously in the morning / 40 unit subcutaneously in the evening tizanidine 4 mg tablet 4 mg PO Q6H PRN (Reason: Muscle Spasm) sumatriptan succinate [Imitrex] 50 mg Tablet 50 mg PO Q2H MDD 2 tabs PRN (Reason: Migraine Headache) spironolactone 25 mg tablet 25 mg PO BID potassium chloride 20 mEq tablet,ER particles/crystals 20 meq PO QAM levetiracetam 750 mg tablet 750 mg PO BID lactulose 10 gram/15 mL solution 90 ml PO TID PRN (Reason: Constipation) pantoprazole 40 mg tablet,delayed release (DR/EC) 40 - 80 mg PO DAILY PRN (Reason: Acid Reflux) albuterol sulfate 90 mcg/actuation HFA aerosol inhaler 1 inh inhalation Q6H PRN (Reason: shortness of breath or wheezing) Qty: 8.5 0RF tenofovir disoproxil fumarate 300 mg tablet 300 mg PO QAM lamotrigine 200 mg Tablet 200 mg PO DAILY metoclopramide HCl 10 mg Tablet 10 mg PO DAILY PRN (Reason: Nausea) lubiprostone [Amitiza] 24 mcg Capsule 24 mcg PO DAILY gabapentin 300 mg capsule 300 mg PO BID [place]on 3,000-9,500- 15,000 unit capsule,delayed release(DR/EC) 1 cap PO TID naloxone [Narcan] 4 mg/actuation spray,non-aerosol See Rx Instructions .ROUTE .COMPLEX Qty: 1 0RF Rx Instructions: as directed intranasally prn oxycodone-acetaminophen 10-325 mg tablet 1 tab PO Q8H PRN (Reason: Pain) scopolamine base 1 mg over 3 days patch 3 day 1 mg transdermal Q3D promethazine 25 mg tablet 25 mg PO QID PRN (Reason: nausea and vomiting) Qty: 20 0RF Discharge Orders: Discharge ED (Routine); Ordered 02/11/22 Ordered By: Britton Heart Referrals: Francisco Mckinley DO [Primary Care Provider] - Discharge Diet: Regular Discharge Activity: Increase activity as tolerated Patient Instructions: Medicine Refill (ED) Activity Restrictions/Additional Instructions: Follow-up with medical provider as directed. Take medications as prescribed. Return to the ER or your medical provider if condition worsens. Please read and understand discharge instructions. Thank you for choosing [facility] for your healthcare needs today. Please realize this is an emergency room and that we are providing you with a medical screening exam and this may not be complete and all inclusive of all the testing and or work up that you may need to determine your ailment or severity of your illness. It is very important that you follow up as instructed or that you return to the Emergency Department should you have concerns or if your condition changes or worsens in any way. Coding Level of Care Code ED Dairy Farm Supervisor for Chg 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 Documented by User: Lane Gaffney DO 02/16/22 07:01 HPI - General Adult General: Chief complaint: General Medical Stated complaint: out of meds/in severe pain Time Seen by Provider: 02/11/22 14:13 PFS ED PFSH: Medical History Accidental fentanyl overdose Bilateral pulmonary embolism Cardiac arrest Chronic abdominal pain Chronic hepatitis B Chronic hip pain Cirrhosis COPD (chronic obstructive pulmonary disease) Diabetes mellitus Encephalopathy Gastroesophageal reflux GI bleeding Hepatitis B Hypertension Leg cramps Overdose Pelvic inflammatory disease Stomach cancer Thrombocytopenia Surgical History H/O tubal ligation History of hysterectomy History of laparotomy Family History Mother Diabetes Father CAD (coronary artery disease) Other Cancer Social History Smoking and tobacco status: former smoker Quit status (tobacco): has quit using tobacco Year quit tobacco: 2020 Former quit date comment: 2ppd x 26 year Hx Alcohol intake: never Course Vital Signs: Vital signs: Vital Signs Temperature 99.8 F H 02/11/22 14:37 Pulse Rate 87 02/11/22 15:20 Respiratory Rate 16 02/11/22 15:20 Blood Pressure 175/119 02/11/22 14:37 Pulse Oximetry 99 02/11/22 15:20 Oxygen Delivery Me thod 02/11/22 14:37 MDM - General Adult Medical Decision Making Patient is a 46-year-old female who comes to the ED for medication refill. Patient is out of her p.o. morphine that she takes because her doctor went on vacation and has been out of town the past several days. I told 1 of patient's home health nurses and spoke with her about her medications and confirm that she is on p.o. morphine 30 mg twice daily. I sent patient home with a prescription for 3 p.o. morphine 30 mg tablets which should be enough for her to get through the next day and a half until she can talk with doctor on Sunday. Patient understood and agreed with plan. Dr. Gaffney agreed with medication refill and signed prescription. Chart reviewed and patient discussed with midlevel. Agree with assessment and plan. Discharge Plan Discharge Patient Disposition: Home Clinical Impression: Medication refill Condition: Stable Prescriptions: No Action Xifaxan 550 mg tablet 550 mg PO BID furosemide 40 mg tablet 80 mg PO TID levothyroxine 50 mcg tablet 50 mcg PO QAM Qty: 30 0RF Rx Instructions: needs an appt with labs before more refills Bevespi Aerosphere 9-4.8 mcg HFA aerosol inhaler 2 puff inhalation BID Qty: 10.7 3RF insulin glargine [Lantus U-100 Insulin] 100 unit/mL solution See Rx Instructions .ROUTE .COMPLEX Rx Instructions: 20 unit subcutaneously in the morning / 40 unit subcutaneously in the evening tizanidine 4 mg tablet 4 mg PO Q6H PRN (Reason: Muscle Spasm) sumatriptan succinate [Imitrex] 50 mg Tablet 50 mg PO Q2H MDD 2 tabs PRN (Reason: Migraine Headache) spironolactone 25 mg tablet 25 mg PO BID potassium chloride 20 mEq tablet,ER particles/crystals 20 meq PO QAM levetiracetam 750 mg tablet 750 mg PO BID lactulose 10 gram/15 mL solution 90 ml PO TID PRN (Reason: Constipation) pantoprazole 40 mg tablet,delayed release (DR/EC) 40 - 80 mg PO DAILY PRN (Reason: Acid Reflux) albuterol sulfate 90 mcg/actuation HFA aerosol inhaler 1 inh inhalation Q6H PRN (Reason: shortness of breath or wheezing) Qty: 8.5 0RF tenofovir disoproxil fumarate 300 mg tablet 300 mg PO QAM lamotrigine 200 mg Tablet 200 mg PO DAILY metoclopramide HCl 10 mg Tablet 10 mg PO DAILY PRN (Reason: Nausea) lubiprostone [Amitiza] 24 mcg Capsule 24 mcg PO DAILY gabapentin 300 mg capsule 300 mg PO BID [place]on 3,000-9,500- 15,000 unit capsule,delayed release(DR/EC) 1 cap PO TID naloxone [Narcan] 4 mg/actuation spray,non-aerosol See Rx Instructions .ROUTE .COMPLEX Qty: 1 0RF Rx Instructions: as directed intranasally prn oxycodone-acetaminophen 10-325 mg tablet 1 tab PO Q8H PRN (Reason: Pain) scopolamine base 1 mg over 3 days patch 3 day 1 mg transdermal Q3D promethazine 25 mg tablet 25 mg PO QID PRN (Reason: nausea and vomiting) Qty: 20 0RF Discharge Orders: Discharge ED (Routine); Ordered 02/11/22 Ordered By: Britton Heart Referrals: Francisco Mckinley DO [Primary Care Provider] - Discharge Diet: Regular Discharge Activity: Increase activity as tolerated Patient Instructions: Medicine Refill (ED) Activity Restrictions/Additional Instructions: Follow-up with medical provider as directed. Take medications as prescribed. Return to the ER or your medical provider if condition worsens. Please read and understand discharge instructions. Thank you for choosing [facility] for your healthcare needs today. Please realize this is an emergency room and that we are providing you with a medical screening exam and this may not be complete and all inclusive of all the testing and or work up that you may need to determine your ailment or severity of your illness. It is very important that you follow up as instructed or that you return to the Emergency Department should you have concerns or if your condition changes or worsens in any way. Coding Level of Care Code ED Dairy Farm Supervisor for 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
[2022-02-11] MEDS: morphine 4 mg/mL SDV 1 mL IM (15:00)
[2022-02-11 15:20] VITALS: PULSE 87; RESP 16; O2SAT 99
== END 2022-02-11 15:20 | disposition home or self-care (01) ==
PROVIDERS: Emergency Provider Physician Assistant; PCP Family Medicine
DX: Z76.0 Encounter for issue of repeat prescription (principal); Z79.4 Long term (current) use of insulin; Z86.19 Personal history of other infectious and parasitic diseases; I10 Essential (primary) hypertension; Z85.028 Personal history of other malignant neoplasm of stomach; Z87.891 Personal history of nicotine dependence
CPT/HCPCS: 96372; 99284; J2270

== ENCOUNTER 2022-02-16 05:26 | Emergency (ER) | payer MEDICAID, SELFPAY ==
[2022-02-16 05:27] VITALS: BP 151/79; PULSE 101; RESP 17; TEMP 36.6; O2SAT 97; BMI 29.9
[2022-02-16 05:32] VITALS: PULSE 99; RESP 18; O2SAT 98
--- NOTE | 2022-02-16 05:32 | ED_ITS ---
Documented by User: Brandon Jerez MD 02/16/22 05:33 HPI - Abdominal Pain General: Chief Complaint: Abdominal Pain Stated Complaint: ABD PAIN Time Seen by Provider: 02/16/22 05:29 Source: patient and EMS Mode of arrival: EMS Limitations: no limitations History of Present Illness: 46-year-old female with a history of chronic abdominal pain she states that she been having pain started tonight at midnight she states in her left side of her abdomen she rates her pain a 9 out of 10 she had nausea and vomiting she denies any fever she denies any worsening proving factors denies any radiation of her pain. Associated Symptoms: Reports nausea and vomiting; Denies chills, dysuria and fever(s) Related Data: Date of Last Menstrual Period: 08/07/21 Review of Systems Const: Denies: fever(s), chills, body aches or change in appetite Eyes: Denies: blurry vision or eye discomfort ENMT: Denies: throat pain or dental pain Card: Denies: chest pain Resp: Denies: dyspnea GI: Reports: abdominal pain, nausea and vomiting : Denies: dysuria Musc: Denies: neck pain or back pain Skin/Breast: Denies: rash Neuro: Denies: headache(s) Psych: Denies: depression Robel/Lymph: Denies: easy bruising All/Imm: Denies: urticaria PFSH ED PFSH: Medical History Accidental fentanyl overdose Bilateral pulmonary embolism Cardiac arrest Chronic abdominal pain Chronic hepatitis B Chronic hip pain Cirrhosis COPD (chronic obstructive pulmonary disease) Diabetes mellitus Encephalopathy Gastroesophageal reflux GI bleeding Hepatitis B Hypertension Leg cramps Overdose Pelvic inflammatory disease Stomach cancer Thrombocytopenia Surgical History H/O tubal ligation History of hysterectomy History of laparotomy Family History Mother Diabetes Father CAD (coronary artery disease) Other Cancer Social History Smoking and tobacco status: former smoker Quit status (tobacco): has quit using tobacco Year quit tobacco: 2020 Former quit date comment: 2ppd x 26 year Hx Alcohol intake: never Female Reproductive History: Date of last menstrual period: 08/07/21 Physical Exam Const: COMMON NORMALS: no acute distress, patient oriented x3 and healthy appearing HENMT: COMMON NORMALS: normocephalic and atraumatic HEAD & SCALP: normocephalic and atraumatic Eye: COMMON NORMALS: Equal, round and reactive pupils present and EOMs intact bilaterally PUPIL: Yes Equal, round and reactive pupils present Neck/C-Spine: COMMON NORMALS: full ROM and supple Chest: COMMONS NORMALS: normal inspection of the chest and normal palpation of entire chest wall Resp: COMMON NORMALS: normal respiratory effort, No retractions, No use of accessory muscles and clear to auscultation bilaterally AUSCULTATION: clear to auscultation bilaterally Cardio: COMMON NORMALS: regular rate, regular rhythm and No murmurs present (Cardio) RATE: regular rate RHYTHM: regular rhythm GI: COMMON NORMALS: Normal to inspection, nondistended, normoactive bowel sounds present, Soft to palpation, non-tender and no masses PALPATION: Yes Soft to palpation Extremity: COMMON NORMALS: normal to inspection and full ROM Neuro: COMMON NORMALS: patient oriented x3, moves all extremities and no focal motor deficits Psych: COMMON NORMALS: mental status grossly normal, Normal thought process present and cooperative THOUGHT PROCESS: Normal thought process present Skin: COMMON NORMALS: no rashes or lesions noted and no wounds GENERAL SKIN EXAM: no rashes or lesions noted Course Vital Signs: Vital signs: Vital Signs Temperature 97.9 F 02/16/22 05:27 Pulse Rate 87 02/16/22 06:43 Respiratory Rate 16 02/16/22 06:43 Blood Pressure 123/84 02/16/22 06:43 Pulse Oximetry 98 02/16/22 06:43 Oxygen Delivery Me thod 02/16/22 06:43 MDM - Abdominal Pain Lab Data 02/16/22 06:02 02/16/22 06:02 Labs/Radiology: Laboratory Results WBC 11.5 10^3/uL (4.0-10.0) H 02/16/22 06:02 RBC 4.45 10^6/uL (4.1-5.3) 02/16/22 06:02 Hgb 13.8 g/dL (11.5-15.3) 02/16/22 06:02 Hct 41.0 % (37.0-47.0) 02/16/22 06:02 MCV 92.1 fl (81-99) 02/16/22 06:02 MCH 31.0 pg (28.0-34.0) 02/16/22 06:02 MCHC 33.7 g/dL (30.0-36.0) 02/16/22 06:02 RDW 13.1 % (12.1-15.1) 02/16/22 06:02 Plt Count 154 10^3/cmm (130-400) 02/16/22 06:02 MPV 10.1 fL (7.4-10.4) 02/16/22 06:02 Neut % (Auto) 89.2 % 02/16/22 06:02 Lymph % (Auto) 4.7 % 02/16/22 06:02 [place] % (Auto) 4.9 % 02/16/22 06:02 Eos % (Auto) 0.3 % 02/16/22 06:02 Baso % (Auto) 0.5 % 02/16/22 06:02 Neut # (Auto) 10.22 10^3/uL (1.8-7.7) H 02/16/22 06:02 Lymph # (Auto) 0.5 10^3/uL (0.8-4.8) L 02/16/22 06:02 [place] # (Auto) 0.6 10^3/uL (0.2-0.9) 02/16/22 06:02 Eos # (Auto) 0.0 10^3/uL (0.0-0.8) 02/16/22 06:02 Baso # (Auto) 0.1 10^3/uL (0.0-0.1) 02/16/22 06:02 Nucleated RBC % (auto) 0 % 02/16/22 06:02 Nucleated RBCs # 0.0 /100WBC 02/16/22 06:02 Sodium 137 mmol/L (136-145) 02/16/22 06:02 Potassium 3.5 mmol/L (3.5-5.1) 02/16/22 06:02 Chloride 103 mmol/L (98-107) 02/16/22 06:02 Carbon Dioxide 23 mmol/L (22-29) 02/16/22 06:02 Anion Gap 14.5 (5-19) 02/16/22 06:02 BUN 11 mg/dL (6-20) 02/16/22 06:02 Creatinine 0.6 mg/dL (0.5-0.9) 02/16/22 06:02 GFR Calculation 107.2 mL/min (90-130) 02/16/22 06:02 Glucose 103 mg/dL (65-115) 02/16/22 06:02 Calculated Osmolality 284 mOsm/kg (285-295) L 02/16/22 06:02 Calcium 9.1 mg/dL (8.5-10.5) 02/16/22 06:02 Total Bilirubin 0.7 mg/dL (0.15-1.2) 02/16/22 06:02 AST 25 U/L (0-32) 02/16/22 06:02 ALT 12 U/L (0-33) 02/16/22 06:02 Alkaline Phosphatase 116 U/L (35-105) H 02/16/22 06:02 Total Protein 7.8 g/dL (6.6-8.7) 02/16/22 06:02 Albumin 3.2 g/dL (3.5-5.2) L 02/16/22 06:02 Globulin 4.6 g/dL (1.3-4.6) 02/16/22 06:02 Lipase 45 U/L (13-60) 02/16/22 06:02 Discharge Plan Discharge Patient Disposition: Left Against Medical Advice Clinical Impression: Chronic abdominal pain, Chronic hepatitis B Condition: Stable Prescriptions: No Action Xifaxan 550 mg tablet 550 mg PO BID furosemide 40 mg tablet 80 mg PO TID levothyroxine 50 mcg tablet 50 mcg PO QAM Qty: 30 0RF Rx Instructions: needs an appt with labs before more refills Bevespi Aerosphere 9-4.8 mcg HFA aerosol inhaler 2 puff inhalation BID Qty: 10.7 3RF insulin glargine [Lantus U-100 Insulin] 100 unit/mL solution See Rx Instructions .ROUTE .COMPLEX Rx Instructions: 20 unit subcutaneously in the morning / 40 unit subcutaneously in the evening tizanidine 4 mg tablet 4 mg PO Q6H PRN (Reason: Muscle Spasm) sumatriptan succinate [Imitrex] 50 mg Tablet 50 mg PO Q2H MDD 2 tabs PRN (Reason: Migraine Headache) spironolactone 25 mg tablet 25 mg PO BID potassium chloride 20 mEq tablet,ER particles/crystals 20 meq PO QAM levetiracetam 750 mg tablet 750 mg PO BID lactulose 10 gram/15 mL solution 90 ml PO TID PRN (Reason: Constipation) pantoprazole 40 mg tablet,delayed release (DR/EC) 40 - 80 mg PO DAILY PRN (Reason: Acid Reflux) albuterol sulfate 90 mcg/actuation HFA aerosol inhaler 1 inh inhalation Q6H PRN (Reason: shortness of breath or wheezing) Qty: 8.5 0RF tenofovir disoproxil fumarate 300 mg tablet 300 mg PO QAM lamotrigine 200 mg Tablet 200 mg PO DAILY metoclopramide HCl 10 mg Tablet 10 mg PO DAILY PRN (Reason: Nausea) lubiprostone [Amitiza] 24 mcg Capsule 24 mcg PO DAILY gabapentin 300 mg capsule 300 mg PO BID Creon 3,000-9,500- 15,000 unit capsule,delayed release(DR/EC) 1 cap PO TID naloxone [Narcan] 4 mg/actuation spray,non-aerosol See Rx Instructions .ROUTE .COMPLEX Qty: 1 0RF Rx Instructions: as directed intranasally prn oxycodone-acetaminophen 10-325 mg tablet 1 tab PO Q8H PRN (Reason: Pain) scopolamine base 1 mg over 3 days patch 3 day 1 mg transdermal Q3D promethazine 25 mg tablet 25 mg PO QID PRN (Reason: nausea and vomiting) Qty: 20 0RF Referrals: Francisco Mckinley DO [Primary Care Provider] - Patient Instructions: Abdominal Pain (ED) Coding Level of Care Code ED Provider Engagement Executive for Chg 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 Documented by User: Lane Gaffney DO 02/16/22 06:48 HPI - Abdominal Pain General: Chief Complaint: Abdominal Pain Stated Complaint: ABD PAIN Time Seen by Provider: 02/16/22 05:29 [facility] ED PFS: Medical History Accidental fentanyl overdose Bilateral pulmonary embolism Cardiac arrest Chronic abdominal pain Chronic hepatitis B Chronic hip pain Cirrhosis COPD (chronic obstructive pulmonary disease) Diabetes mellitus Encephalopathy Gastroesophageal reflux GI bleeding Hepatitis B Hypertension Leg cramps Overdose Pelvic inflammatory disease Stomach cancer Thrombocytopenia Surgical History H/O tubal ligation History of hysterectomy History of laparotomy Family History Mother Diabetes Father CAD (coronary artery disease) Other Cancer Social History Smoking and tobacco status: former smoker Quit status (tobacco): has quit using tobacco Year quit tobacco: 2020 Former quit date comment: 2ppd x 26 year Hx Alcohol intake: never Course Vital Signs: Vital signs: Vital Signs Temperature 97.9 F 02/16/22 05:27 Pulse Rate 87 02/16/22 06:43 Respiratory Rate 16 02/16/22 06:43 Blood Pressure 123/84 02/16/22 06:43 Pulse Oximetry 98 02/16/22 06:43 Oxygen Delivery Me thod 02/16/22 06:43 MDM - Abdominal Pain Medical Decision Making Care assumed at change of shift to Dr. Jerez awaiting the remainder of her lab test patient was upset because she did not receive narcotic pain medications. She has chronic abdominal pain and has been here multiple times multiple evaluations with no significant finding. Initial lab work that helped was completed was essentially unremarkable. Patient chose to leave AGAINST MEDICAL ADVICE she was advised by nursing staff she can return at any time if she wishes. Medical Records I reviewed the patient's medical records. Lab Data I reviewed the patient's lab results. 02/16/22 06:02 02/16/22 06:02 Labs/Radiology: Laboratory Results WBC 11.5 10^3/uL (4.0-10.0) H 02/16/22 06:02 RBC 4.45 10^6/uL (4.1-5.3) 02/16/22 06:02 Hgb 13.8 g/dL (11.5-15.3) 02/16/22 06:02 Hct 41.0 % (37.0-47.0) 02/16/22 06:02 MCV 92.1 fl (81-99) 02/16/22 06:02 MCH 31.0 pg (28.0-34.0) 02/16/22 06:02 MCHC 33.7 g/dL (30.0-36.0) 02/16/22 06:02 RDW 13.1 % (12.1-15.1) 02/16/22 06:02 Plt Count 154 10^3/cmm (130-400) 02/16/22 06:02 MPV 10.1 fL (7.4-10.4) 02/16/22 06:02 Neut % (Auto) 89.2 % 02/16/22 06:02 Lymph % (Auto) 4.7 % 02/16/22 06:02 [place] % (Auto) 4.9 % 02/16/22 06:02 Eos % (Auto) 0.3 % 02/16/22 06:02 Baso % (Auto) 0.5 % 02/16/22 06:02 Neut # (Auto) 10.22 10^3/uL (1.8-7.7) H 02/16/22 06:02 Lymph # (Auto) 0.5 10^3/uL (0.8-4.8) L 02/16/22 06:02 [place] # (Auto) 0.6 10^3/uL (0.2-0.9) 02/16/22 06:02 Eos # (Auto) 0.0 10^3/uL (0.0-0.8) 02/16/22 06:02 Baso # (Auto) 0.1 10^3/uL (0.0-0.1) 02/16/22 06:02 Nucleated RBC % (auto) 0 % 02/16/22 06:02 Nucleated RBCs # 0.0 /100WBC 02/16/22 06:02 Sodium 137 mmol/L (136-145) 02/16/22 06:02 Potassium 3.5 mmol/L (3.5-5.1) 02/16/22 06:02 Chloride 103 mmol/L (98-107) 02/16/22 06:02 Carbon Dioxide 23 mmol/L (22-29) 02/16/22 06:02 Anion Gap 14.5 (5-19) 02/16/22 06:02 BUN 11 mg/dL (6-20) 02/16/22 06:02 Creatinine 0.6 mg/dL (0.5-0.9) 02/16/22 06:02 GFR Calculation 107.2 mL/min (90-130) 02/16/22 06:02 Glucose 103 mg/dL (65-115) 02/16/22 06:02 Calculated Osmolality 284 mOsm/kg (285-295) L 02/16/22 06:02 Calcium 9.1 mg/dL (8.5-10.5) 02/16/22 06:02 Total Bilirubin 0.7 mg/dL (0.15-1.2) 02/16/22 06:02 AST 25 U/L (0-32) 02/16/22 06:02 ALT 12 U/L (0-33) 02/16/22 06:02 Alkaline Phosphatase 116 U/L (35-105) H 02/16/22 06:02 Total Protein 7.8 g/dL (6.6-8.7) 02/16/22 06:02 Albumin 3.2 g/dL (3.5-5.2) L 02/16/22 06:02 Globulin 4.6 g/dL (1.3-4.6) 02/16/22 06:02 Lipase 45 U/L (13-60) 02/16/22 06:02 Discharge Plan Discharge Patient Disposition: Left Against Medical Advice Clinical Impression: Chronic abdominal pain, Chronic hepatitis B Condition: Stable Prescriptions: No Action Xifaxan 550 mg tablet 550 mg PO BID furosemide 40 mg tablet 80 mg PO TID levothyroxine 50 mcg tablet 50 mcg PO QAM Qty: 30 0RF Rx Instructions: needs an appt with labs before more refills Bevespi Aerosphere 9-4.8 mcg HFA aerosol inhaler 2 puff inhalation BID Qty: 10.7 3RF insulin glargine [Lantus U-100 Insulin] 100 unit/mL solution See Rx Instructions .ROUTE .COMPLEX Rx Instructions: 20 unit subcutaneously in the morning / 40 unit subcutaneously in the evening tizanidine 4 mg tablet 4 mg PO Q6H PRN (Reason: Muscle Spasm) sumatriptan succinate [Imitrex] 50 mg Tablet 50 mg PO Q2H MDD 2 tabs PRN (Reason: Migraine Headache) spironolactone 25 mg tablet 25 mg PO BID potassium chloride 20 mEq tablet,ER particles/crystals 20 meq PO QAM levetiracetam 750 mg tablet 750 mg PO BID lactulose 10 gram/15 mL solution 90 ml PO TID PRN (Reason: Constipation) pantoprazole 40 mg tablet,delayed release (DR/EC) 40 - 80 mg PO DAILY PRN (Reason: Acid Reflux) albuterol sulfate 90 mcg/actuation HFA aerosol inhaler 1 inh inhalation Q6H PRN (Reason: shortness of breath or wheezing) Qty: 8.5 0RF tenofovir disoproxil fumarate 300 mg tablet 300 mg PO QAM lamotrigine 200 mg Tablet 200 mg PO DAILY metoclopramide HCl 10 mg Tablet 10 mg PO DAILY PRN (Reason: Nausea) lubiprostone [Amitiza] 24 mcg Capsule 24 mcg PO DAILY gabapentin 300 mg capsule 300 mg PO BID Creon 3,000-9,500- 15,000 unit capsule,delayed release(DR/EC) 1 cap PO TID naloxone [Narcan] 4 mg/actuation spray,non-aerosol See Rx Instructions .ROUTE .COMPLEX Qty: 1 0RF Rx Instructions: as directed intranasally prn oxycodone-acetaminophen 10-325 mg tablet 1 tab PO Q8H PRN (Reason: Pain) scopolamine base 1 mg over 3 days patch 3 day 1 mg transdermal Q3D promethazine 25 mg tablet 25 mg PO QID PRN (Reason: nausea and vomiting) Qty: 20 0RF Referrals: Francisco Mckinley DO [Primary Care Provider] - Patient Instructions: Abdominal Pain (ED) Coding Level of Care Code ED Provider Engagement Executive for Chg 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
--- NOTE | 2022-02-16 05:56 | PC.NURSE ---
Pt refused reglan and benadryl because What the fuck is reglan going to do for my belly pain? Dr. Jerez notified.
[2022-02-16] MEDS: sodium chloride 0.9% 1,000 ML 999 ML IV (05:57)
[2022-02-16 06:05] LABS: Basophils # 0.1 10^3/uL (0.0-0.1); Basophils % 0.5 %; Eosinophils % 0.3 %; Hemoglobin 13.8 g/dL (11.5-15.3); Lymphocytes # 0.5 10^3/uL (0.8-4.8); Lymphocytes % 4.7 %; Mean Corpuscular HGB Conc 33.7 g/dL (30.0-36.0); Mean Corpuscular Volume 92.1 fl (81-99); Mean Platelet Volume 10.1 fL (7.4-10.4); Monocytes # 0.6 10^3/uL (0.2-0.9); Monocytes % 4.9 %; Neutrophils # 10.22 10^3/uL (1.8-7.7); Neutrophils % 89.2 %; Nucleated Red Blood Cells % 0 %; Platelet Count 154 10^3/cmm (130-400); Red Blood Count 4.45 10^6/uL (4.1-5.3); Red Cell Distribution Width 13.1 % (12.1-15.1); White Blood Count 11.5 10^3/uL (4.0-10.0)
--- NOTE | 2022-02-16 06:07 | PC.NURSE ---
Pt called nurse to room asked for pain medication. Informed pt this nurse does not have orders for any other medications at this time. Pt became upset and stated Does he need a urine before he gives me something else?! Just get out of here! Informed Pt reglan and benadryl was ordered for her symptoms and pt refused medications. Pt again became upset yelling at this RN to get out. Dr. Martinez notified.
[2022-02-16 06:22] LABS: Alanine Aminotransferase 12 U/L (0-33); Albumin Level 3.2 g/dL (3.5-5.2); Alkaline Phosphatase 116 U/L (35-105); Anion Gap 14.5 (5-19); Aspartate Amino Transferase 25 U/L (0-32); Blood Urea Nitrogen 11 mg/dL (6-20); Calcium 9.1 mg/dL (8.5-10.5); Carbon Dioxide 23 mmol/L (22-29); Chloride 103 mmol/L (98-107); Globulin 4.6 g/dL (1.3-4.6); Glomerular Filtration Rate 107.2 mL/min (90-130); Glucose 103 mg/dL (65-115); Lipase 45 U/L (13-60); Osmolality Calculated 284 mOsm/kg (285-295); Potassium 3.5 mmol/L (3.5-5.1); Sodium 137 mmol/L (136-145); Total Bilirubin 0.7 mg/dL (0.15-1.2); Total Protein 7.8 g/dL (6.6-8.7)
[2022-02-16 06:29] LABS: Add Urine Microscopic? NO; Charge for UA Resulting for Rev
[2022-02-16 06:43] VITALS: BP 123/84; PULSE 87; RESP 16; O2SAT 98
--- NOTE | 2022-02-16 06:44 | PC.NURSE ---
patient requesting to leave AMA, come take this stupid thing out, I can go home and hurt and not be here. patient advised of risks of leaving prior to work up being completed; Dr. Gaffney notified of patient request and is ok. patient completed AMA and left ambulatory, GCS 15, VSS.
[2022-02-16 06:49] LABS: Urine Appearance Clear (CLEAR); Urine Color Yellow (Yellow)
[2022-02-16 06:50] LABS: Bilirubin Urine Neg (Negative); Blood Urine Neg (Negative); Glucose Urine UA Norm (Normal); Ketones Urine Negative (Negative); Leukocyte Esterase Urine Negative (Negative); Nitrate Urine Negative (Negative); Protein Urine Neg (Negative); Specific Gravity, Urine 1.005 (1.005-1.030); Urobilinogen Urine Norm (Negative); pH Urine 7 (5-7)
== END 2022-02-16 06:45 | disposition left against medical advice (07) ==
PROVIDERS: Emergency Medicine; Emergency Provider Family Medicine; PCP Family Medicine
DX: G89.29 Other chronic pain (principal); R10.9 Unspecified abdominal pain; B18.1 Chronic viral hepatitis B without delta-agent; Z53.21 Procedure and treatment not carried out due to patient leaving prior to being seen by health care provider; Z79.4 Long term (current) use of insulin; Z87.891 Personal history of nicotine dependence; J44.9 Chronic obstructive pulmonary disease, unspecified; E11.9 Type 2 diabetes mellitus without complications; I10 Essential (primary) hypertension; Z85.028 Personal history of other malignant neoplasm of stomach
CPT/HCPCS: 80053; 81003; 83690; 85025; 99284; J7030

== ENCOUNTER 2022-02-16 13:45 | Emergency (ER) | payer MEDICAID, SELFPAY ==
[2022-02-16 13:55] VITALS: BP 152/129; PULSE 77; RESP 18; O2SAT 98; BMI 27.1
--- NOTE | 2022-02-16 14:32 | ED_ITS ---
HPI - Abdominal Pain General: Chief Complaint: Nausea/Vomiting/Diarrhea Stated Complaint: N/V Time Seen by Provider: 02/16/22 14:04 Source: patient Mode of arrival: ambulatory Limitations: no limitations History of Present Illness: Patient returns to the emergency department. She states that she is still having abdominal pain exactly like that she has had chronically for some time. She states its been attributed to her chronic hepatitis C.. She states she has been throwing up because of the pain since she left the emergency department. She denies any other new or changed symptoms from her earlier evaluation this day. MD elicited complaint: abdominal pain Associated Symptoms: Reports nausea and vomiting; Denies chills, dysuria, fever(s), hematochezia and melena Related Data: Date of Last Menstrual Period: 08/07/21 Review of Systems Const: Denies: fever(s) or chills Eyes: Denies: change in vision ENMT: Denies: throat pain, odynophagia, nasal discharge or nasal congestion Card: Denies: chest pain, palpitations or irregular heart rhythm Resp: Denies: dyspnea, productive cough or non-productive cough GI: Reports: abdominal pain, nausea and vomiting; Denies: hematochezia or melena : Denies: flank pain, difficulty voiding or dysuria Musc: Denies: neck pain, back pain, extremity pain or extremity swelling Skin/Breast: Denies: rash Neuro: Denies: headache(s), numbness in extremities or weakness in extremities PFS ED PFSH: Medical History Accidental fentanyl overdose Bilateral pulmonary embolism Cardiac arrest Chronic abdominal pain Chronic hepatitis B Chronic hip pain Cirrhosis COPD (chronic obstructive pulmonary disease) Diabetes mellitus Encephalopathy Gastroesophageal reflux GI bleeding Hepatitis B Hypertension Leg cramps Overdose Pelvic inflammatory disease Stomach cancer Thrombocytopenia Surgical History H/O tubal ligation History of hysterectomy History of laparotomy Family History Mother Diabetes Father CAD (coronary artery disease) Other Cancer Social History Smoking and tobacco status: former smoker Quit status (tobacco): has quit using tobacco Year quit tobacco: 2020 Former quit date comment: 2ppd x 26 year Hx Alcohol intake: never Female Reproductive History: Date of last menstrual period: 08/07/21 Physical Exam Narrative: EXAM NARRATIVE: She is alert but tearful and acting uncomfortable during my interview. Const: COMMON NORMALS: patient oriented x3 and alert NUTRITIONAL APPEARANCE: overweight HENMT: COMMON NORMALS: normocephalic, Normal nasal mucous membranes and turbinates present and moist oral mucous membranes HEAD & SCALP: normocephali c FACE & SINUS: normal facial exam NOSE: Normal nasal mucous membranes and turbinates present TEETH & GINGIVA: Yes edentulous Eye: COMMON NORMALS: Equal, round and reactive pupils present, EOMs intact bilaterally and conjunctivae normal CONJUNCTIVA: Yes conjunctivae normal PUPIL: Yes Equal, round and reactive pupils present Neck/C-Spine: COMMON NORMALS: full ROM and no lymphadenopathy Chest: COMMONS NORMALS: normal inspection of the chest and normal palpation of entire chest wall Resp: COMMON NORMALS: normal respiratory effort, No retractions, No use of accessory muscles and clear to auscultation bilaterally AUSCULTATION: clear to auscultation bilaterally Cardio: COMMON NORMALS: regular rate, regular rhythm, No murmurs present (Cardio) and Peripheral pulses 2+ throughout RATE: regular rate RHYTHM: regular rhythm PERIPHERAL PULSES: Peripheral pulses 2+ throughout GI: COMMON NORMALS: Normal to inspection, nondistended, normoactive bowel sounds present and Soft to palpation INSPECTION: Yes incision (Supraumbilical midline remote) PALPATION: Yes Soft to palpation PERCUSSION: normal to percussion : COMMON NORMALS: Yes no CVA tenderness BLADDER/KIDNEY EXAM: Yes no CVA tenderness Back/Pelvis: COMMON NORMALS: no CVA tenderness, thoracic and lumbar spine normal to inspection, no thoracic nor lumbar tenderness and thoraco-lumbar ROM normal Extremity: COMMON NORMALS: normal to inspection, full ROM, capillary refill normal and no joint enlargement Neuro: COMMON NORMALS: patient oriented x3, moves all extremities, no focal motor deficits and no sensory deficits noted SENSORIUM/ORIENTATION: Yes alert Psych: COMMON NORMALS: cooperative APPEARANCE: Yes unkempt MOOD & AFFECT: Yes anxious and Yes tearful Skin: COMMON NORMALS: no rashes or lesions noted and no wounds GENERAL SKIN EXAM: no rashes or lesions noted Course Reevaluation(s): Reevaluation #1: I reevaluated the patient. She states she was not getting much improvement with her Haldol and diphenhydramine. She had no more emesis etc. while in our emergency department. I advised her that would give her an antispasmodic to help relieve some of her subjective symptoms. Time: 16:00 Reevaluation #2: I was informed by the nursing staff that the patient had pulled out her IV and was walking out of the emergency department. This is a behavior that the patient is displayed in the past. Her evaluation earlier today did not reveal any findings that suggested a ongoing emergency medical condition and my clinical evaluation today also was consistent with that observation. She left the emergency department prior to my having the ability to reassess and/or consult with the patient. Time: 16:30 Vital Signs: Vital signs: Vital Signs Pulse Rate 77 02/16/22 13:55 Respiratory Rate 18 02/16/22 13:55 Blood Pressure 152/129 02/16/22 13:55 Pulse Oximetry 98 02/16/22 13:55 Oxygen Delivery Me thod 02/16/22 13:55 MDM - Abdominal Pain Medical Decision Making This patient with known history of chronic recurrent abdominal pain who returns to the emergency department after being evaluated and leaving AGAINST MEDICAL ADVICE earlier today. Her evaluation this afternoon did not reveal any signs of a surgical abdomen or any other concerning findings. She was given symptomatic treatment of the nonopioid nature in the emergency department. During her period of observation she decided to leave the emergency department and removed her intravenous access and left the emergency department without any further evaluation being performed. Medical Records I reviewed the patient's medical records. Reviewed past records to include evaluation from earlier this day Lab Data I reviewed the patient's lab results. Discharge Plan Discharge Patient Disposition: Left Against Medical Advice Clinical Impression: Chronic abdominal pain Condition: Stable Prescriptions: No Action Xifaxan 550 mg tablet 550 mg PO BID furosemide 40 mg tablet 80 mg PO TID levothyroxine 50 mcg tablet 50 mcg PO QAM Qty: 30 0RF Rx Instructions: needs an appt with labs before more refills Bevespi Aerosphere 9-4.8 mcg HFA aerosol inhaler 2 puff inhalation BID Qty: 10.7 3RF insulin glargine [Lantus U-100 Insulin] 100 unit/mL solution See Rx Instructions .ROUTE .COMPLEX Rx Instructions: 20 unit subcutaneously in the morning / 40 unit subcutaneously in the evening tizanidine 4 mg tablet 4 mg PO Q6H PRN (Reason: Muscle Spasm) sumatriptan succinate [Imitrex] 50 mg Tablet 50 mg PO Q2H MDD 2 tabs PRN (Reason: Migraine Headache) spironolactone 25 mg tablet 25 mg PO BID potassium chloride 20 mEq tablet,ER particles/crystals 20 meq PO QAM levetiracetam 750 mg tablet 750 mg PO BID lactulose 10 gram/15 mL solution 90 ml PO TID PRN (Reason: Constipation) pantoprazole 40 mg tablet,delayed release (DR/EC) 40 - 80 mg PO DAILY PRN (Reason: Acid Reflux) albuterol sulfate 90 mcg/actuation HFA aerosol inhaler 1 inh inhalation Q6H PRN (Reason: shortness of breath or wheezing) Qty: 8.5 0RF tenofovir disoproxil fumarate 300 mg tablet 300 mg PO QAM lamotrigine 200 mg Tablet 200 mg PO DAILY metoclopramide HCl 10 mg Tablet 10 mg PO DAILY PRN (Reason: Nausea) lubiprostone [Amitiza] 24 mcg Capsule 24 mcg PO DAILY gabapentin 300 mg capsule 300 mg PO BID Creon 3,000-9,500- 15,000 unit capsule,delayed release(DR/EC) 1 cap PO TID naloxone [Narcan] 4 mg/actuation spray,non-aerosol See Rx Instructions .ROUTE .COMPLEX Qty: 1 0RF Rx Instructions: as directed intranasally prn oxycodone-acetaminophen 10-325 mg tablet 1 tab PO Q8H PRN (Reason: Pain) scopolamine base 1 mg over 3 days patch 3 day 1 mg transdermal Q3D promethazine 25 mg tablet 25 mg PO QID PRN (Reason: nausea and vomiting) Qty: 20 0RF Referrals: Francisco Mckinley DO [Primary Care Provider] - Discharge Diet: Usual diet Patient Instructions: Abdominal Pain (ED) Activity Restrictions/Additional Instructions: Continue usual medications. You are welcome to return to the emergency department at anytime for recurrent or worsening symptoms. Coding Level of Care Code ED [employer]ing Unit Operator for Margarito 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
[2022-02-16] MEDS: lactated ringers 1,000 ML 999 ML IV (15:17)
[2022-02-16] MEDS: haloperidol inj 5 mg/mL INJ 1 mL IVP (15:21)
[2022-02-16] MEDS: diphenhydrAMINE 50 mg/mL SDV 1mL 25 MG IVP (15:21)
== END 2022-02-16 16:22 | disposition left against medical advice (07) ==
PROVIDERS: Emergency Provider Emergency Medicine; PCP Family Medicine
DX: G89.29 Other chronic pain (principal); R10.9 Unspecified abdominal pain; Z79.4 Long term (current) use of insulin; Z53.21 Procedure and treatment not carried out due to patient leaving prior to being seen by health care provider; Z86.19 Personal history of other infectious and parasitic diseases; J44.9 Chronic obstructive pulmonary disease, unspecified; E11.9 Type 2 diabetes mellitus without complications; I10 Essential (primary) hypertension; Z85.028 Personal history of other malignant neoplasm of stomach; Z87.891 Personal history of nicotine dependence
CPT/HCPCS: 96361; 96374; 96375; 99284; J1200; J1630; J7120

== ENCOUNTER → 2022-03-15 16:19 | Outpatient (BNVA) | payer MEDICAID, SELFPAY | PROVIDERS: PCP Family Medicine; Visit Provider Internal Medicine Pulmonary Disease | DX: J22 Unspecified acute lower respiratory infection (principal); J44.9 Chronic obstructive pulmonary disease, unspecified; R06.00 Dyspnea, unspecified; G47.19 Other hypersomnia; R09.02 Hypoxemia; B18.1 Chronic viral hepatitis B without delta-agent; Z91.89 Other specified personal risk factors, not elsewhere classified; F17.219 Nicotine dependence, cigarettes, with unspecified nicotine-induced disorders | CPT/HCPCS: 71046; 99214 ==

== ENCOUNTER 2022-03-23 12:57 | Outpatient (CLI) | payer MEDICAID, SELFPAY | END 2022-03-23 12:58 | disposition home or self-care (01) | PROVIDERS: PCP Family Medicine; Visit Provider Internal Medicine Pulmonary Disease | DX: R06.00 Dyspnea, unspecified (principal); I26.99 Other pulmonary embolism without acute cor pulmonale | CPT/HCPCS: 94060; 94618; 94726; 94729; J7613 ==

== ENCOUNTER 2022-05-07 21:24 | Inpatient (IN) | payer MEDICAID, SELFPAY ==
[2022-05-07 21:25] VITALS: BMI 32.8
--- NOTE | 2022-05-07 21:26 | ED_ITS ---
HPI - General Adult General: Chief complaint: Arrhythmia/Palpitations Stated complaint: symptomatic bradycardia Time Seen by Provider: 05/07/22 21:25 History of Present Illness: Ms. Foreman is a 46-year-old lady with complex recent history including OK, extensive abdominal surgery presenting to the emergency department for symptomatic bradycardia. She reports typically her heart rate has been fast however over the past day she has had intermittent episodes of slow heart rate associated with presyncopal, chest pain, fatigue, shortness of breath. She denies being on any beta-blockers. Intensity symptoms when present is moderate to severe. She had an episode of syncope while sitting though denies significant associated trauma. No other specific changes in health, exacerbating, or alleviating factors identified. Onset (ago): day(s) Severity: moderate Relieving factors: none Exacerbating factors: none Associated symptoms: Reports palpitations, syncope and weakness Review of Systems General: Reports: 10 or more systems reviewed and unremarkable except in HPI and below Card: Reports: palpitations and syncope PFS ED PFSH: Medical History Accidental fentanyl overdose Bilateral pulmonary embolism Cardiac arrest Chronic abdominal pain Chronic hepatitis B Chronic hip pain Cirrhosis COPD (chronic obstructive pulmonary disease) Chronically on 3 L of oxygen Diabetes mellitus Encephalopathy Gastroesophageal reflux GI bleeding Hepatitis B Hypertension Hypothyroidism Leg cramps Overdose Pelvic inflammatory disease Pulmonary embolism Stomach cancer Thrombocytopenia Tobacco dependency Surgical History H/O tubal ligation History of hysterectomy History of laparotomy History of right hemicolectomy Family History Mother Diabetes Father CAD (coronary artery disease) Other Cancer Social History Smoking and tobacco status: former smoker Quit status (tobacco): has quit using tobacco Year quit tobacco: 2020 Former quit date comment: 2ppd x 26 year Hx Alcohol intake: never Physical Exam Const: COMMON NORMALS: alert GENERAL APPEARANCE: cooperative and well developed HENMT: COMMON NORMALS: normocephalic and atraumatic HEAD & SCALP: normocephalic and atraumatic Eye: COMMON NORMALS: conjunctivae normal CONJUNCTIVA: Yes conjunctivae norm al SCLERA: sclerae normal Neck/C-Spine: COMMON NORMALS: supple GENERAL: Yes trachea midline Resp: COMMON NORMALS: clear to auscultation bilaterally EFFORT & INSPECTION: Yes able to speak in complete sentences AUSCULTATION: clear to auscultation bilaterally Cardio: COMMON NORMALS: regular rhythm RATE: bradycardic RHYTHM: regular rhythm GI: COMMON NORMALS: Soft to palpation PALPATION: Yes Soft to palpation and No Tenderness to palpation present (GI) OTHER: surgical incisions appear well healing Extremity: GENERAL: Yes normal exam except as noted and No edema Neuro: COMMON NORMALS: moves all extremities SENSORIUM/ORIENTATION: Yes alert and No Orientation impaired Psych: COMMON NORMALS: mental status grossly normal and Normal thought process present THOUGHT PROCESS: Normal thought process present Course Vital Signs: Vital signs: Vital Signs Temperature 99.2 F 05/12/22 04:00 Pulse Rate 106 H 05/12/22 10:50 Respiratory Rate 16 05/12/22 10:50 Blood Pressure 157/76 05/12/22 10:50 Pulse Oximetry 96 05/12/22 10:50 Oxygen Delivery Me thod 05/12/22 07:40 Oxygen Flow Rate 2 05/12/22 07:40 Fraction of Inspir ed Oxygen 3 05/10/22 04:00 [facility] - General Adult Medical Decision Making 46-year-old lady with complex recent history presenting the emergency department for bradycardia and syncope. Patient reports history of cardiac event though exact circumstances are somewhat unclear and this was in the context of significant illness. Patient is noted to be bradycardic however adequate blood pressure at rest without significant symptoms. EKG notable for sinus bradycardia, normal axis and intervals, no STEMI. Labs with no significant hematologic or metabolic abnormalities to explain symptoms, magnesium is mildly low and replenishment as ordered. Chest x-ray with no lobar consolidation or pneumothorax. Patient treated with analgesia and magnesium supplementation in the emergency department. I did review limited outside records that were sent to us, I do not see specific comments regarding prior cardiac event or cardiac evaluation. Patient had extensive operative management of ischemic colitis. Her exam on abdominal exam is benign here and surgical incisions appear well-healing. I do not believe that there is association or complication that would require transfer back to facility where operation was performed. Most likely etiology of patient's symptoms is symptomatic bradycardia of unclear etiology. The results of ED evaluation were discussed with the patient including plan for admission due to requirement for level of care not available if discharged to prevent significant worsening/deterioration. Patient agreeable with plan. Discussed with hospitalist service who was agreeable to admit patient. Medical Records I reviewed the patient's medical records. Lab Data I reviewed the patient's lab results. 05/07/22 21:40 05/07/22 21:40 Radiology Impressions Abdomen X-Ray 05/08/22 00:56 IMPRESSION: 1. There are no acute abdominal findings. Abdomen/Pelvis CT 05/08/22 08:08 IMPRESSION: 1. Recent postoperative changes RIGHT hemicolectomy with anastomosis. A few air-fluid levels in the duodenum and proximal small bowel likely due to adynamic ileus. No evidence of high-grade obstruction. 2. No evidence of high-grade stricture at the anastomosis in the RIGHT midabdomen. 3. Cirrhotic liver with splenomegaly and varices as described above. 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 4. Enlarged common bile duct progressed compared to November 19, 2021 measur ing 13 mm at the pancreatic head. This can be further evaluated with MRCP. Chest X-Ray 05/10/22 17:29 IMPRESSION: Pacemaker is seen which appears in place with leads over the right and left heart. Laboratory Results WBC 6.7 10^3/uL (4.0-10.0) 05/07/22 21:40 RBC 4.63 10^6/uL (4.1-5.3) 05/07/22 21:40 Hgb 14.0 g/dL (11.5-15.3) 05/07/22 21:40 Hct 41.8 % (37.0-47.0) 05/07/22 21:40 MCV 90.3 fl (81-99) 05/07/22 21:40 MCH 30.2 pg (28.0-34.0) 05/07/22 21:40 MCHC 33.5 g/dL (30.0-36.0) 05/07/22 21:40 RDW 12.6 % (12.1-15.1) 05/07/22 21:40 Plt Count 215 10^3/cmm (130-400) 05/07/22 21:40 MPV 10.0 fL (7.4-10.4) 05/07/22 21:40 Neut % (Auto) 59.4 % 05/07/22 21:40 Lymph % (Auto) 27.8 % 05/07/22 21:40 Nuckolls % (Auto) 10.2 % 05/07/22 21:40 Eos % (Auto) 1.5 % 05/07/22 21:40 Baso % (Auto) 0.8 % 05/07/22 21:40 Neut # (Auto) 3.95 10^3/uL (1.8-7.7) 05/07/22 21:40 Lymph # (Auto) 1.9 10^3/uL (0.8-4.8) 05/07/22 21:40 Nuckolls # (Auto) 0.7 10^3/uL (0.2-0.9) 05/07/22 21:40 Eos # (Auto) 0.1 10^3/uL (0.0-0.8) 05/07/22 21:40 Baso # (Auto) 0.1 10^3/uL (0.0-0.1) 05/07/22 21:40 Nucleated RBC % (auto) 0 % 05/07/22 21:40 Nucleated RBCs # 0.0 /100WBC 05/07/22 21:40 Sodium 136 mmol/L (136-145) 05/07/22 21:40 Potassium 3.6 mmol/L (3.5-5.1) 05/07/22 21:40 Chloride 100 mmol/L (98-107) 05/07/22 21:40 Carbon Dioxide 23 mmol/L (22-29) 05/07/22 21:40 Anion Gap 16.6 (5-19) 05/07/22 21:40 BUN 9 mg/dL (6-20) 05/07/22 21:40 Creatinine 0.5 mg/dL (0.5-0.9) 05/07/22 21:40 GFR Calculation 132.2 mL/min (90-130) H 05/07/22 21:40 Glucose 197 mg/dL (65-115) H 05/07/22 21:40 Calculated Osmolality 286 mOsm/kg (285-295) 05/07/22 21:40 Lactate 2.1 mmol/L (0.5-2.2) 05/07/22 21:40 Calcium 8.9 mg/dL (8.5-10.5) 05/07/22 21:40 Magnesium 1.5 mg/dL (1.7-2.3) L 05/07/22 21:40 Total Bilirubin 0.8 mg/dL (0.15-1.2) 05/07/22 21:40 AST 26 U/L (0-32) 05/07/22 21:40 ALT 12 U/L (0-33) 05/07/22 21:40 Alkaline Phosphatase 112 U/L (35-105) H 05/07/22 21:40 Troponin T Baseline 9 ng/L (0-10) 05/07/22 21:40 Troponin T 120 Minute 9.42 ng/L (0-10) 05/07/22 23:29 Delta Troponin T 0.42 ABS# (0-10) 05/07/22 23:29 NT-Pro-B Natriuret Pep 847 pg/mL (0-125) H 05/07/22 21:40 Total Protein 7.2 g/dL (6.6-8.7) 05/07/22 21:40 Albumin 3.8 g/dL (3.5-5.2) 05/07/22 21:40 Globulin 3.4 g/dL (1.3-4.6) 05/07/22 21:40 TSH 0.60 uIU/mL (0.27-4.20) 05/07/22 21:40 Urine Color Yellow (Yellow) 05/08/22 00:04 Urine Appearance Hazy (CLEAR) A 05/08/22 00:04 Urine pH 8 (5-7) H 05/08/22 00:04 Ur Specific [place] 1.015 (1.005-1.030) 05/08/22 00:04 Urine Protein Neg (Negative) 05/08/22 00:04 Urine Glucose (UA) Norm (Normal) 05/08/22 00:04 Urine Ketones Negative (Negative) 05/08/22 00:04 Urine Blood Neg (Negative) 05/08/22 00:04 Urine Nitrate Negative (Negative) 05/08/22 00:04 Urine Bilirubin Neg (Negative) 05/08/22 00:04 Prot Sulfosalicylic Acd Negative (Negative) 05/08/22 00:04 Urine Urobilinogen 8 mg/dL (Negative) H 05/08/22 00:04 Ur Leukocyte Esterase Negative (Negative) 05/08/22 00:04 Urine RBC 0-4 /hpf (0-2) H 05/08/22 00:04 Urine WBC 0-4 /hpf (0-5) H 05/08/22 00:04 Ur Squamous Epith Cells 25-40 /hpf (0-5) H 05/08/22 00:04 Amorphous Sediment Not Reportable 05/08/22 00:04 Urine Bacteria 2+ /hpf (NONE) H 05/08/22 00:04 Urine Mucus 1+ /hpf 05/08/22 00:04 Urine Opiates Screen Positive ng/mL (Negative) H 05/07/22 00:04 Ur Barbiturates Screen Negative ng/mL (Negative) 05/07/22 00:04 Ur Phencyclidine Scrn Negative ng/mL (Negative) 05/07/22 00:04 Ur Amphetamines Screen Negative ng/mL (Negative) 05/07/22 00:04 U Benzodiazepines Scrn Negative ng/mL (Negative) 05/07/22 00:04 Urine Cocaine Screen Negative ng/mL (Negative) 05/07/22 00:04 U Marijuana (THC) Screen Negative ng/mL (Negative) 05/07/22 00:04 Critical Care Time Critical Care Time: Critical Care Time: Yes Total Critical Care Time: 45 Attestation: Due to a high probability of clinically significant, possibly life threatening deterioration, the patient required my highest level of attention and preparedness to intervene emergently and I personally spent this critical care time directly and personally managing the patient. This critical care time included obtaining a history; examining the patient; pulse oximetry; ordering and review of laboratory and imaging studies; arranging urgent treatment with development of a management plan; evaluation of patient's response to treatment; frequent reassessment; and, discussions with other providers as applicable. It was exclusive of separately billable procedures. Primary system involved is cardiac. Discharge Plan Discharge Patient Disposition: Admitted As Inpatient Admit Provider: Levi Montaño Clinical Impression: Syncope, Symptomatic bradycardia Condition: Stable Discharge Diet: Cardiac and Diabetic Discharge Activity: Increase activity as tolerated Coding Level of Care Code ED Dividing Machine Operator for 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
[2022-05-07 21:28] VITALS: BP 150/113; PULSE 48; RESP 16; TEMP 36.7; O2SAT 96
--- NOTE | 2022-05-07 21:32 | XRR_ITS ---
PROCEDURE INFORMATION: Exam: XR Chest Exam date and time: 05/07/2022 9:59 PM Age: 46 years old Clinical indication: Pain; Other: Cp w/copd TECHNIQUE: Imaging protocol: Radiologic exam of the chest. Views: 1 view. COMPARISON: CR XR chest 2V* [id number] 03/15/2022 4:23 PM FINDINGS: Tubes, catheters and devices: Transcutaneous pacemaker lead overlies the left cardiac border. EKG leads overlie the chest. Lungs: Minimal strandy opacities are present in the lung bases likely representing atelectasis. Pleural spaces: Unremarkable. No pleural effusion. No pneumothorax. Heart/Mediastinum: Unremarkable. No cardiomegaly. Bones/joints: Unremarkable. XR/XR chest 1V portable [id number] IMPRESSION: Minimal strandy opacities in the lower hemithoraces likely represents atelectasis.
--- NOTE | 2022-05-07 21:32 | ECG_ITS ---
[facility] Test Date: 2022-05-07 Pat Name: Maribell Foreman Department: Room: Gender: Female Agency Sales Representative: : 1975 Requested By: Robert Rosa Order Number: [id number] Janett MD: Suzy Wyman M.D. Measurements Intervals [place] Rate: 43 P: 243 WI: 94 QRS: 61 QRSD: 99 T: 55 QT: 513 QTc: 437 Interpretive Statements Sinus bradycardia with a junctional escape beats MODERATE ST DEPRESSION [0.05+ mV ST DEPRESSION] Compared to ECG 11/19/2021 17:51:14 ST (T wave) deviation now present Sinus rhythm no longer present Sinus arrhythmia no longer present Electronically Signed On 05-07-2022 22:14:05 PATTERN CHAIN BUILDER by Suzy Wyman M.D. [id number]
[2022-05-07 21:48] LABS: Basophils # 0.1 10^3/uL (0.0-0.1); Basophils % 0.8 %; Eosinophils # 0.1 10^3/uL (0.0-0.8); Eosinophils % 1.5 %; Hematocrit 41.8 % (37.0-47.0); Lymphocytes # 1.9 10^3/uL (0.8-4.8); Lymphocytes % 27.8 %; Mean Corpuscular HGB Conc 33.5 g/dL (30.0-36.0); Mean Corpuscular Hemoglobin 30.2 pg (28.0-34.0); Mean Corpuscular Volume 90.3 fl (81-99); Monocytes # 0.7 10^3/uL (0.2-0.9); Monocytes % 10.2 %; Neutrophils # 3.95 10^3/uL (1.8-7.7); Neutrophils % 59.4 %; Nucleated Red Blood Cells % 0 %; Platelet Count 215 10^3/cmm (130-400); Red Blood Count 4.63 10^6/uL (4.1-5.3); Red Cell Distribution Width 12.6 % (12.1-15.1); White Blood Count 6.7 10^3/uL (4.0-10.0)
[2022-05-07 22:15] LABS: Troponin(5th) Baseline 9 ng/L (0-10)
[2022-05-07 22:19] LABS: Lactate (Lactic Acid level) 2.1 mmol/L (0.5-2.2)
[2022-05-07 22:29] LABS: Alanine Aminotransferase 12 U/L (0-33); Albumin Level 3.8 g/dL (3.5-5.2); Alkaline Phosphatase 112 U/L (35-105); Anion Gap 16.6 (5-19); Aspartate Amino Transferase 26 U/L (0-32); Blood Urea Nitrogen 9 mg/dL (6-20); Calcium 8.9 mg/dL (8.5-10.5); Carbon Dioxide 23 mmol/L (22-29); Chloride 100 mmol/L (98-107); Globulin 3.4 g/dL (1.3-4.6); Glomerular Filtration Rate 132.2 mL/min (90-130); Glucose 197 mg/dL (65-115); Magnesium 1.5 mg/dL (1.7-2.3); NT Pro B Type Natriuretic Pept 847 pg/mL (0-125); Osmolality Calculated 286 mOsm/kg (285-295); Potassium 3.6 mmol/L (3.5-5.1); Sodium 136 mmol/L (136-145); Total Bilirubin 0.8 mg/dL (0.15-1.2); Total Protein 7.2 g/dL (6.6-8.7)
[2022-05-07 23:00] VITALS: BP 158/106; PULSE 45; RESP 18; O2SAT 96
[2022-05-07] MEDS: magnesium sulfate premix 2 GM/50 ML PIGGYBACK IV (23:19)
[2022-05-07] MEDS: morphine 4 mg/mL SDV 1 mL IVP (23:19)
[2022-05-07 23:30] VITALS: BP 185/90; PULSE 46; RESP 18; O2SAT 96
--- NOTE | 2022-05-07 23:46 | ECG_ITS ---
[facility] Test Date: 2022-05-07 Pat Name: Maribell Foreman Department: Room: Gender: Female [place]ia[place]ina [place] Reo: : 1975 Requested By: Robert Rosa Order Number: [id number] Janett MD: Suzy Wyman M.D. Measurements Intervals [place] Rate: 46 P: 151 [place]: 162 QRS: 120 QRSD: 116 T: 125 QT: 525 QTc: 462 Interpretive Statements SINUS BRADYCARDIA with a sinus arrhythmia ARM LEADS REVERSED [INVERTED P AND QRS IN I] Compared to ECG 05/07/2022 22:04:59 ST (T wave) deviation no longer present Electronically Signed On 05-08-2022 19:15:08 CONTROL SPECIALIST by Suzy Wyman M.D. [id number]
[2022-05-07 23:55] LABS: Troponin 5 2HR 9.42 ng/L (0-10)
[2022-05-08] VITALS (201 sets, daily range): BP systolic 68–229; BP diastolic 41–143; PULSE 37–76; RESP 10–28; TEMP 36–36.7; O2SAT 90–100; BMI 32.8
--- NOTE | 2022-05-08 00:12 | PC.NURSE ---
Pt blood pressure elevated at 171/83, heart rate 45. Taylor RN from ICU requested to ask for blood pressure medication. Dr. Scott, admitting, informed and stated that we werent giving her anything right now and to take her to ICU.
[2022-05-08 00:19] LABS: Troponin 5 2HR Delta 0.42 ABS# (0-10)
--- NOTE | 2022-05-08 00:42 | PM.HP ---
Providers/Chief Complaint Admitting Physician: Derek Scott MD Primary Care Provider: Francisco Mckinley DO Chief Complaint: symptomatic bradycardia History of Present Illness Maribell Foreman is a 46 year old female with complicated medical history presenting to the emergency department after home health monitoring and patient noticed heart rate was low, 30s to 40s at times. She reports she felt dizzy at times, and 1 time while sitting at the table she thinks she had a syncopal episode. She reports some fatigue, some shortness of breath, and relates some chest discomfort but has trouble qualifying this. She reports occasional nausea. Denies constipation. Relates that her stool has been light in color recently. No blood in stool, no vomiting. Reports she was recently on antibiotics, but now off. Her OxyContin was also changed from liquid to pill form. She does not think she is on any medication that could lower her heart rate. No fever, no chills. Reports her abdominal pain since her surgery has been about the same. Last hospitalization was March 27, length of stay 6 days at [facility] for ischemic colitis in which she underwent a right hemicolectomy. She reports she took her scopolamine patch off prior to coming to the emergency department. Review of Systems General: Reports: 10 or more systems reviewed and unremarkable except in HPI and below Const: Reports: malaise; Denies: fever(s) or chills Eyes: Denies: change in vision ENMT: Denies: throat pain Card: Reports: chest pain, lightheadedness and syncope; Denies: edema Resp: Denies: dyspnea GI: Reports: abdominal pain and nausea; Denies: vomiting, hematochezia or melena : Denies: flank pain Musc: Reports: back pain and extremity pain Skin/Breast: Denies: rash Neuro: Reports: headache(s) Medications/Allergies Home Medications Medication Instructions Recorded Confirmed Last Taken Type levothyroxine 50 mcg tablet 50 mcg PO QAM #30 tabs 12/23/19 03/15/22 01/02/22 Rx insulin glargine 100 unit/mL See Rx Instructions .Route .COMPLEX 10/17/20 03/15/22 01/05/22 History subcutaneous solution (Lantus U-100 Insulin) levetiracetam 750 mg tablet 750 mg PO BID 10/17/20 03/15/22 01/02/22 History pantoprazole 40 mg tablet,delayed 40 - 80 mg PO DAILY PRN Acid Reflux 10/17/20 03/15/22 Unknown History release potassium chloride 20 mEq 20 meq PO QAM 10/17/20 03/15/22 01/02/22 History tablet,extended release(part/cryst) spironolactone 25 mg tablet 25 mg PO BID 10/17/20 03/15/22 01/05/22 History sumatriptan succinate 50 mg tablet 50 mg PO Q2H PRN Migraine Headache 10/17/20 03/15/22 Unknown History (Imitrex) tizanidine 4 mg tablet 4 mg PO Q6H PRN Muscle Spasm 10/17/20 03/15/22 Unknown History albuterol sulfate 90 mcg/actuation 1 inh inhalation Q6H PRN shortness 10/20/20 03/15/22 Unknown Rx aerosol inhaler of breath or wheezing #8.5 grams tenofovir disoproxil fumarate 300 300 mg PO QAM 11/10/20 03/15/22 01/02/22 History mg tablet lamotrigine 200 mg tablet 200 mg PO DAILY 02/19/21 03/15/22 01/02/22 History lubiprostone 24 mcg capsule 24 mcg PO DAILY 02/19/21 03/15/22 01/02/22 History (Amitiza) metoclopramide HCl 10 mg tablet 10 mg PO DAILY PRN Nausea 02/19/21 03/15/22 Unknown History gabapentin 300 mg capsule 300 mg PO BID 08/07/21 03/15/22 01/02/22 History lipase 3,000-protease 1 cap PO TID 08/07/21 03/15/22 01/02/22 History 9,500-amylase 15,000 unit capsule, delayed rel (Creon) naloxone 4 mg/actuation nasal See Rx Instructions .Route 08/08/21 03/15/22 Unknown Rx spray (Narcan) .COMPLEX #1 ea furosemide 40 mg tablet 80 mg PO TID 11/16/21 03/15/22 01/02/22 History oxycodone-acetaminophen 10 mg-325 1 tab PO Q8H PRN Pain 01/05/22 03/15/22 01/05/22 History mg tablet promethazine 25 mg tablet 25 mg PO QID PRN nausea and 01/05/22 03/15/22 Unknown Rx vomiting #20 tabs scopolamine base 1 mg over 3 days 1 mg transdermal Q3D 01/05/22 03/15/22 01/04/22 History transdermal patch azithromycin 500 mg tablet 500 mg PO DAILY 5 days #5 tabs 03/15/22 03/15/22 Unknown Rx lactulose 10 gram/15 mL oral 90 ml PO TID Constipation 03/15/22 03/15/22 Unknown History solution lisinopril 10 mg tablet 10 mg PO DAILY 03/15/22 03/15/22 Unknown History budesonide 160 mcg-glycopyr 9 2 inh inhalation BID #10.7 grams 03/21/22 Unknown Rx mcg-formot 4.8 mcg/actuation HFA inhaler (Breztri Aerosphere) ipratropium 0.5 mg-albuterol 3 mg 3 ml inhalation Q4H PRN wheezing 03/28/22 Unknown Rx (2.5 mg base)/3 mL nebulization #180 mL soln Allergies Allergy/AdvReac Type Severity Reaction Status Date / Time codeine Allergy Unknown Unknown Verified 03/15/22 15:47 aspirin Allergy ALGY-Hives Verified 03/15/22 15:47 Sulfa (Sulfonamide Allergy ALGY-Swell Verified 03/15/22 15:47 Antibiotics) Lip/Tongue/Throat PFSH Acute PFSH: Medical History (Updated 05/08/22 @ 00:55 by Derek Scott MD) Accidental fentanyl overdose Bilateral pulmonary embolism Cardiac arrest Chronic abdominal pain Chronic hepatitis B Chronic hip pain Cirrhosis COPD (chronic obstructive pulmonary disease) Chronically on 3 L of oxygen Diabetes mellitus Encephalopathy Gastroesophageal reflux GI bleeding Hepatitis B Hypertension Hypothyroidism Leg cramps Overdose Pelvic inflammatory disease Stomach cancer Thrombocytopenia Tobacco dependency Surgical History (Updated 05/08/22 @ 00:49 by Derek Scott MD) H/O tubal ligation History of hysterectomy History of laparotomy History of right hemicolectomy Family History Mother Diabetes Father CAD (coronary artery disease) Other Cancer Social History Smoking and tobacco status: former smoker Quit status (tobacco): has quit using tobacco Year quit tobacco: 2020 Former quit date comment: 2ppd x 26 year Hx Alcohol intake: never Vitals/I&O/Wt Last Vital Signs Temp 98.1 F 05/07/22 21:28 Pulse 42 L 05/08/22 00:31 Resp 18 05/08/22 00:31 BP 171/93 05/08/22 00:31 Pulse Ox 96 05/08/22 00:31 O2 Del Method 05/07/22 21:28 05/07/22 05/07/22 05/08/22 14:59 22:59 06:59 Intake Total 50 / 50 Balance 50 / 50 Weight last 48 hrs Weight 109.769 kg Physical Exam Narrative: General exam is a white female, somewhat sleepy, who can relate her history but it is somewhat scattered. HEENT: Atraumatic normocephalic. Pupils equally round. Oropharynx clear. Neck is supple no lymphadenopathy thyromegaly Cardiovascular bradycardic, no murmur Lungs clear no wheezing or crackles Abdomen is soft. Surgical scars noted. Positive bowel sounds. I do not really elicit significant tenderness exams deferred Extremities no cyanosis clubbing or edema, cap refill brisk Skin no rash Neuro no obvious focal deficits Data 05/07/22 21:40 05/07/22 21:40 Other Labs: Chest x-ray by my read demonstrates no infiltrate EKG demonstrates bradycardia, appears to be sinus with a rate in the mid 40s, normal axis, occasional junctional escape beat by my interpretation Previous echocardiogram in July some diastolic dysfunction but largely normal Liver function tests are normal with exception of an alk phos of 112 Troponin is 9 with repeat of 9.5 BNP 847 Urinalysis I have ordered A&P Assessment and plan (1) Symptomatic bradycardia: Etiology unclear TSH normal Magnesium slightly low but will be supplemented. No other electrolyte abnormalities are noted She has discontinued scopolamine patch prior to coming in. This could certainly cause bradycardia. Medicine list has not yet been reconstructed but there may be others. Reglan, promethazine were also on a as needed list. She is on multiple medications on her list which included Amitza, Linzess, narcotics which might contribute. Holding multiple medications and close monitoring. Recheck CBC and CMP tomorrow Cardiology consultation (2) COPD (chronic obstructive pulmonary disease): DuoNeb every 6 hours Budesonide twice daily. No evidence of exacerbation currently. Qualifiers: COPD type: unspecified COPD Qualified Code(s): J44.9 - Chronic obstructive pulmonary disease, unspecified (3) Hypomagnesemia: Supplementation initiated Recheck magnesium level tomorrow (4) Diabetes mellitus: Sliding scale insulin (5) Chronic abdominal pain: Continue chronic pain medications. Review further when medication list when this becomes available. Check abdominal x-ray for constipation. (6) Hypothyroidism: TSH was normal (7) Tobacco dependency: Encourage abstinence Plan Multiple other medical problems as outlined in past medical history Attestations Medical Necessity Statement*: Will need greater than 2 midnight stay for evaluation and treatment of bradycardia, symptomatic for evaluation of cause, specialist consultation Diagnoses Symptomatic bradycardia R00.1 COPD (chronic obstructive pulmonary disease) J44.9 COPD type: unspecified COPD Hypomagnesemia E83.42 Diabetes mellitus E11.9 Chronic abdominal pain R10.9; G89.29 Hypothyroidism E03.9 Tobacco dependency F17.200 Time Spent (min) 78
--- NOTE | 2022-05-08 00:52 | USCV_ITS ---
Maribell Foreman Age: 46 Gender: F : 1975 Exam Date: 05/08/2022 07:52 Ordering Phys: Derek Scott MD Technologist: KITTY DILL [place] [facility] [place]: chf BP: 205 / 104 HR: 42 Rhythm: Sinus Technical Quality: Adequate MEASUREMENTS (Male / Female) Normal Values 2D ECHO LV Diastolic Diameter PLAX 4.7 cm 4.2 - 5.9 / 3.9 - 5.3 cm LV Systolic Diameter PLAX 2.9 cm IVS Diastolic Thickness 1.1 cm 0.6 - 1.0 / 0.6 - 0.9 cm IVS Systolic Thickness 1.2 cm LVPW Diastolic Thickness 1.1 cm 0.6 - 1.0 / 0.6 - 0.9 cm LVPW Systolic Thickness 1.7 cm LVOT Diameter 2.0 cm LV Ejection Fraction 2D Teich 67.6 % LV Ejection Fraction MOD 2C 69.7 % LV Ejection Fraction 2C AL 71.1 % LA Diameter 4.6 cm Aorta at Sinotubular Diameter 2.7 cm IVC Diameter 2.4 cm M-MODE Aortic Annulus Diameter 3.5 cm LA Ao Ratio MM 1.4 MV E Point Septal Separation 0.9 cm DOPPLER AV Peak Velocity 153.0 cm/s LVOT Peak Velocity 108.0 cm/s AV Area Cont Eq vti 2.6 cm squared AV Area Cont Eq pk 2.3 cm squared MV Area PHT 2.0 cm squared Mitral E to A Ratio 1.9 MV E' Velocity 73.5 cm/s Mitral E to MV E' Ratio 13.9 Mitral E to LV E' Lateral Ratio 11.5 Mitral E to LV E' Septal Ratio 17.5 TR Peak Velocity 301.3 cm/s TR Peak Gradient 36.3 mmHg TV Peak E Velocity 114.0 cm/s Right Atrial Pressure 3.0 mmHg Pulmonary Artery Systolic Pressu 39.3 mmHg RV Acceleration Time 0.1 s FINDINGS Left Ventricle Left ventricle is normal in size. LV systolic function is normal with EF of 55 to 60%. No regional wall motion abnormalities are seen. Diastolic function is abnormal Right Ventricle Normal in size and function Right Atrium Normal in size Left Atrium Dilated Mitral Valve Mild mitral annular calcification is seen. Moderate mitral regurgitation. Aortic Valve Structurally normal aortic valve. No significant aortic stenosis. Tricuspid Valve Mild tricuspid regurgitation. RVSP is 35-40mmHg. Mild pulmonary hypertension Pulmonic Valve Not well-visualized Pericardium Normal Aorta Normal in size IVC Appears to be normal CONCLUSIONS LV systolic function is normal with EF 55 to 60% Diastolic function is abnormal Left atrial dilation Mild mitral annular calcification is seen. Moderate mitral regurgitation Mild tricuspid regurgitation. Mild pulmonary hypertension Compared to prior echocardiogram from 08/07/2021, mitral regurgitation has progressed and is moderate now Oseas Junior MD (Electronically Signed) Final Date: 08 May 2022 12:50 S
--- NOTE | 2022-05-08 00:56 | XRR_ITS ---
PROCEDURE INFORMATION: Exam: XR Abdomen Exam date and time: 05/08/2022 4:59 AM Age: 46 years old Clinical indication: Abdominal pain; Generalized; Prior surgery; Surgery date: <1 month; Surgery type: Right hemicolectomy x3 weeks ago; Patient HX: Mid abd pain TECHNIQUE: Imaging protocol: Radiologic exam of the abdomen. Views: Frontal supine view of the abdomen. 1 View. COMPARISON: CT abdomen pelvis con [id number] 11/19/2021 5:36 PM FINDINGS: Gastrointestinal tract: Particulate stool is seen in the descending colon. Bones/joints: Unremarkable. Other findings: Status post right hemicolectomy. XR/XR abdomen 1V* [id number] IMPRESSION: 1. There are no acute abdominal findings.
[2022-05-08 01:06] LABS: Specific Gravity, Urine 1.015 (1.005-1.030); Urine Appearance Hazy (CLEAR); Urine Color Yellow (Yellow); pH Urine 8 (5-7)
[2022-05-08] MEDS: enoxaparin 40 mg/0.4 mL Syringe SUBCUT ×2 (01:14→23:28)
[2022-05-08 01:22] LABS: Amphetamines Screen Urine Negative (Negative); Barbiturates Screen Urine Negative (Negative); Benzodiazepines Screen Urine Negative (Negative); Cocaine Screen Urine Negative (Negative); Opiate Screen Urine Positive (Negative); PCP Screen Urine Negative (Negative); THC Screen Urine Negative (Negative)
[2022-05-08 01:37] LABS: Bilirubin Urine Neg (Negative); Blood Urine Neg (Negative); Glucose Urine UA Norm (Normal); Ketones Urine Negative (Negative); Nitrate Urine Negative (Negative); Protein Urine Neg (Negative); Sulfosalicylic Acid Urine Negative (Negative); Urobilinogen Urine 8 mg/dL (Negative)
[2022-05-08 01:38] LABS: Leukocyte Esterase Urine Negative (Negative)
[2022-05-08] MEDS: morphine 4 mg/mL SDV 1 mL 2 MG IVP ×3 (01:46→09:40)
[2022-05-08 01:51] LABS: Add Urine Culture? No; Bacteria Urine 2+ /hpf; Mucus Urine 1+ /hpf; RBC Urine 0-4 /hpf (0-2); Squamous Epithelial Cell Urine 25-40 /hpf (0-5); WBC Urine 0-4 /hpf (0-5)
--- NOTE | 2022-05-08 03:32 | ECG_ITS ---
[facility] Test Date: 2022-05-07 Pat Name: Maribell Foreman Department: Room: ICU12 Gender: Female [employer]: : 1975 Requested By: Robert Rosa Order Number: [id number] Janett MD: Suzy Wyman M.D. Measurements Intervals [place] Rate: 46 P: 0 MI: 0 QRS: 55 QRSD: 108 T: 56 QT: 502 QTc: 441 Interpretive Statements Sinus bradycardia with sinus pauses and junctional escape beats ABNORMAL RHYTHM ECG INTERPRETATION BASED ON A DEFAULT AGE OF 40 YEARS Compared to ECG 11/19/2021 17:51:14 Sinus rhythm no longer present Sinus arrhythmia no longer present Electronically Signed On 05-08-2022 19:14:46 MANAGER DISCOVERY by Suzy Wyman M.D. [id number]
[2022-05-08] MEDS: levothyroxine 50 mcg Tablet PO (05:19)
[2022-05-08 06:08] LABS: Basophils # 0.1 10^3/uL (0.0-0.1); Basophils % 0.7 %; Eosinophils # 0.2 10^3/uL (0.0-0.8); Eosinophils % 2.4 %; Hematocrit 38.5 % (37.0-47.0); Lymphocytes # 2.9 10^3/uL (0.8-4.8); Lymphocytes % 30.2 %; Mean Corpuscular HGB Conc 33.8 g/dL (30.0-36.0); Mean Corpuscular Hemoglobin 30.4 pg (28.0-34.0); Mean Platelet Volume 10.1 fL (7.4-10.4); Monocytes # 1.4 10^3/uL (0.2-0.9); Monocytes % 14.5 %; Neutrophils # 4.88 10^3/uL (1.8-7.7); Neutrophils % 51.9 %; Nucleated Red Blood Cells % 0 %; Platelet Count 205 10^3/cmm (130-400); Red Blood Count 4.28 10^6/uL (4.1-5.3); Red Cell Distribution Width 12.9 % (12.1-15.1); White Blood Count 9.4 10^3/uL (4.0-10.0)
[2022-05-08] MEDS: hyDRALAzine 20 mg/mL INJ 1 mL 10 MG IVP ×2 (06:23→10:05)
[2022-05-08 06:38] LABS: Anion Gap 13.8 (5-19); Blood Urea Nitrogen 8 mg/dL (6-20); Calcium 8.3 mg/dL (8.5-10.5); Carbon Dioxide 24 mmol/L (22-29); Chloride 104 mmol/L (98-107); Glomerular Filtration Rate 132.2 mL/min (90-130); Glucose 116 mg/dL (65-115); Magnesium 1.8 mg/dL (1.7-2.3); Osmolality Calculated 287 mOsm/kg (285-295); Sodium 139 mmol/L (136-145)
[2022-05-08 07:08] LABS: Potassium 2.8 mmol/L (3.5-5.1)
[2022-05-08 07:11] LABS: Glucose Point of Care 151 mg/dL (70-110)
--- NOTE | 2022-05-08 08:08 | CT_ITS ---
WS: [id number] CT ABDOMEN PELVIS TECHNIQUE: Contrast-enhanced CT of the abdomen and pelvis with coronal and sagittal reformatted image s. CLINICAL INFORMATION: increasing abdominal pain. COMPARISON: CT November 19, 2021 DLP: 989.[address] scans at [facility] use at least one of these dose optimization techniques: automated e xposure control; mA and/or kV adjustment per patient size (includes targeted exams where dose is matc hed to clinical indication); or iterative reconstruction. FINDINGS: Postoperative changes RIGHT hemicolectomy and prior appendectomy. Normal GE junction. Bibasilar atele ctasis. Fluid-filled stomach. Air-fluid levels in the proximal duodenum. Gallbladder is contracted. D ilated common bile duct measuring 13 mm pancreatic head. This can be further evaluated MRCP. This ap pears progressed compared to previous. Cirrhotic liver with portal hypertension. Normal pancreatic parenchymal enhancement. Splenomegaly. Sp lenic vein and SMV are patent. 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 Small indeterminate low-attenuation lesion RIGHT hepatic lobe inferiorly is unchanged. Normal caliber abdominal aorta. Mild aortic calcification. Celiac and SMA are patent. Proximal INA is paten t. Serpiginous varices along the LEFT infrarenal abdominal pain and enlarged LEFT renal vein. Adrenal gl ands are normal. Normal renal parenchymal enhancement. No hydronephrosis. Anastomosis in the RIGHT mi dabdomen appears patent. No evidence of high-grade obstruction. Findings likely due to adynamic ileus . No free fluid in the abdomen or pelvis. CT/CT abdomen pelvis w con* [id number] IMPRESSION: 1. Recent postoperative changes RIGHT hemicolectomy with anastomosis. A few ai r-fluid levels in the duodenum and proximal small bowel likely due to adynamic ileus. No evidence of high-grade obstruction. 2. No evidence of high-grade stricture at the anastomosis in the RIGHT midabdo men. 3. Cirrhotic liver with splenomegaly and varices as described above. Stable ca vernous transformation of the portal vein. 4. Enlarged common bile duct progressed compared to November 19, 2021 measuri ng 13 mm at the pancreatic head. This can be further evaluated with MRCP.
[2022-05-08] MEDS: lamoTRIgine 100 mg Tablet 200 MG PO (08:15)
[2022-05-08] MEDS: lisinopril 10 mg Tablet PO (08:15)
[2022-05-08] MEDS: pantoprazole DR 40 mg Tablet PO (08:15)
[2022-05-08] MEDS: gabapentin 300 mg Capsule PO ×2 (08:15→17:17)
[2022-05-08] MEDS: levETIRAcetam 500 mg Tablet 750 MG PO ×2 (08:16→17:17)
[2022-05-08] MEDS: potassium chloride ER 20 mEq Tablet 40 MEQ PO (08:16)
[2022-05-08] MEDS: lidocaine 1% 5 ML in potassium chloride premix 100 ML 26.25 ML IV (08:19)
--- NOTE | 2022-05-08 09:10 | PC.PHAR ---
pt states she takes care of her own medications-pt unable to verify all medications pt states whatever [facility] fills is what she is taking-pt states she is taking lamotrigine 200mg hs ext med history shows last filled 01/17/23 30d/s [facility] states not filled that medication for the pt-pt states not taken her lactulose in about 3 weeks-pt states she is taking kcl 20meq bid [facility] last filled 20meq daily 03/02/22 31d/s with refills ext med history shows tabs last filled 10/11/21 30d/s 20 meq bid-pt states she is not on any blood thinners states not taken for over a year-notes are made in the pharmacy comments
[2022-05-08 09:28] LABS: Troponin 5 6HR 10.88 ng/L (0-10)
[2022-05-08 09:29] LABS: Lipase 14 U/L (13-60)
[2022-05-08 09:34] LABS: Troponin 5 6HR Delta 1.88 ng/L (0-12)
--- NOTE | 2022-05-08 09:40 | P.CONIM_ITS ---
Providers/Reason For Consult Consulting Physician/Specialty*: SUSANNAH Wyman MD/cardiology Reason for Consult*: Patient with bradycardia and abdominal pain Requesting Physician: Dr. Derek Scott Attending Physician: Derek Scott MD Primary Care Provider: Francisco Mckinley DO History of Present Illness History of Present Illness Maribell Foreman is a 46 year old female, is admitted to hospital through the emergency room where she presented with complaints of bradycardia and syncopal episode. This patient was recently discharged from the [facility] in [facility] where she was admitted with ischemic bowel. She had a hemicolectomy. She has a history of a chronic pain and has been taking OxyContin and morphine. Yesterday morning she was told to have a heart rate in the 30s. She was advised to get up and move around by the home health nurse. Patient, she had an episode of passing out spell in the kitchen. The heart rate stayed in the 30s and 40s. At this point, she was advised to come to the emergency room for further evaluation management. She has no previous history for any significant heart disease. He has a history of diabetes, COPD, hypothyroidism ,chronic pancreatitis?, Hepatitis B, fentanyl overdose causing cardiac arrest?. She also has a history of pulmonary embolism, thrombocytopenia and liver cirrhosis. She also has a history of bleeding peptic ulcer for which she underwent laparotomy before. No fever, chills or cough. No other specific complaints at this time Review of Systems Narrative: CONSTITUTIONAL: No fever or chills. EYES: No blurring of vision or other visual disturbances lately. ENT: No hoarseness of voice, auditory disturbances or sore throat. CARDIOVASCULAR: As mentioned above. RESPIRATORY: No significant cough. GASTROINTESTINAL: Abdominal pain. Recent abdominal surgery GENITOURINARY: No dysuria or hematuria. INTEGUMENTARY: No skin rashes or history of skin cancer. NEURO: History of chronic pain PSYCHIATRIC: No history of psychosis or major depression. HEMATOLOGIC: No bleeding disorders or significant anemia. ENDOCRINE: No history of polyuria or polydipsia. MUSCULOSKELETAL: No recent joint pain or swelling. ALLERGY/IMMUNOLOGY: As mentioned above. Medications/Allergies Home Medications Medication Instructions Recorded Confirmed Last Taken Type levothyroxine 50 mcg tablet 50 mcg PO QAM #30 tabs 12/23/19 05/08/22 01/02/22 Rx insulin glargine 100 unit/mL See Rx Instructions .Route .COMPLEX 10/17/20 05/08/22 01/05/22 History subcutaneous solution (Lantus U-100 Insulin) levetiracetam 750 mg tablet 750 mg PO BID 10/17/20 05/08/22 01/02/22 History pantoprazole 40 mg tablet,delayed 40 - 80 mg PO DAILY PRN Acid Reflux 10/17/20 05/08/22 Unknown History release spironolactone 25 mg tablet 25 mg PO BID 10/17/20 05/08/22 01/05/22 History sumatriptan succinate 50 mg tablet 50 mg PO Q2H PRN Migraine Headache 10/17/20 05/08/22 Unknown History (Imitrex) tizanidine 4 mg tablet 4 mg PO BID 10/17/20 05/08/22 Unknown History albuterol sulfate 90 mcg/actuation 1 inh inhalation Q6H PRN shortness 10/20/20 05/08/22 Unknown Rx aerosol inhaler of breath or wheezing #8.5 grams tenofovir disoproxil fumarate 300 300 mg PO BEDTIME 11/10/20 05/08/22 01/02/22 History mg tablet lamotrigine 200 mg tablet 200 mg PO BEDTIME 02/19/21 05/08/22 01/02/22 History lubiprostone 24 mcg capsule 24 mcg PO BID 02/19/21 05/08/22 01/02/22 History (Amitiza) metoclopramide HCl 10 mg tablet 10 mg PO DAILY PRN Nausea 02/19/21 05/08/22 Unknown History gabapentin 300 mg capsule 300 mg PO BID 08/07/21 05/08/22 01/02/22 History lipase 3,000-protease 1 cap PO TID 08/07/21 05/08/22 01/02/22 History 9,500-amylase 15,000 unit capsule, delayed rel (Creon) naloxone 4 mg/actuation nasal See Rx Instructions .Route 08/08/21 05/08/22 U nknown Rx spray (Narcan) .COMPLEX #1 ea scopolamine base 1 mg over 3 days 1 patch transdermal Q3D 01/05/22 05/08/22 01/04/22 History transdermal patch lactulose 10 gram/15 mL oral 90 ml PO TID 03/15/22 05/08/22 3 Weeks Ago History solution ~04/17/22 see pharmacy comment lisinopril 10 mg tablet 10 mg PO QAM 03/15/22 05/08/22 Unknown History budesonide 160 mcg-glycopyr 9 2 inh inhalation BID #10.7 grams 03/21/22 05/08/22 Unknown Rx mcg-formot 4.8 mcg/actuation HFA inhaler (Breztri Aerosphere) ipratropium 0.5 mg-albuterol 3 mg 3 ml inhalation Q4H PRN wheezing 03/28/22 05/08/22 Unknown Rx (2.5 mg base)/3 mL nebulization #180 mL soln doxepin 10 mg capsule 10 mg PO BEDTIME 05/08/22 05/08/22 Unknown History furosemide 80 mg tablet (Lasix) 80 mg PO TID 05/08/22 05/08/22 Unknown History levofloxacin 750 mg tablet 750 mg PO DAILY 05/08/22 05/08/22 Unknown History morphine 15 mg immediate release 15 mg PO BID PRN Pain 05/08/22 05/08/22 Unknown History tablet oxycodone 30 mg tablet 30 mg PO TID 05/08/22 05/08/22 Unknown History potassium chloride 20 mEq/15 mL 20 meq PO BID 05/08/22 05/08/22 Unknown History oral liquid rifaximin 550 mg tablet (Xifaxan) 550 mg PO BID 05/08/22 05/08/22 Unknown History zinc acetate 50 mg (zinc) capsule 50 mg PO DAILY 05/08/22 05/08/22 Unknown History Allergies Allergy/AdvReac Type Severity Reaction Status Date / Time codeine Allergy Unknown Unknown Verified 05/08/22 08:45 aspirin Allergy ALGY-Hives Verified 05/08/22 08:45 Sulfa (Sulfonamide Allergy ALGY-Swell Verified 05/08/22 08:45 Antibiotics) Lip/Tongue/Throat Current Medications Generic Name Dose Route Start Last Admin Trade Name Freq PRN Reason Stop Dose Admin Albuterol/Ipratropium 3 ml 05/08/22 01:15 05/08/22 06:39 Ipratropium-Albuterol 3 Ml Neb INHALATION Not Given Q6H JOJO Enoxaparin Sodium 40 mg 05/08/22 01:00 05/08/22 01:14 Enoxaparin 40 Mg/0.4 Ml Syringe SUBCUT 40 mg Q24H JOJO Administration Gabapentin 300 mg 05/08/22 09:00 05/08/22 08:15 Gabapentin 300 Mg Capsule PO 300 mg BID JOJO Administration Hydralazine HCl 10 mg 05/08/22 06:13 05/08/22 06:23 Hydralazine 20 Mg/Ml Inj 1 Ml IVP 10 mg Q4H PRN Administration HYPERTENSION Lidocaine HCl 5 ml/ Potassium 105 mls @ 26.25 mls/hr 05/08/22 07:14 05/08/22 08:19 Chloride IV 05/08/22 11:13 26.25 mls/hr ONCE ONE Administration Insulin Human Lispro 0 unit 05/08/22 08:00 05/08/22 08:30 Insulin Lispro 100 Unit/1 Ml SUBCUT Not Given WM&BEDTIME JOJO Protocol Lamotrigine 200 mg 05/08/22 09:00 05/08/22 08:15 Lamotrigine 100 Mg Tablet PO 200 mg DAILY JOJO Administration Levetiracetam 750 mg 05/08/22 09:00 05/08/22 08:16 Levetiracetam 500 Mg Tablet PO 750 mg BID JOJO Administration Levothyroxine Sodium 50 mcg 05/08/22 06:00 05/08/22 05:19 Levothyroxine 50 Mcg Tablet PO 50 mcg QAM JOJO Administration Lisinopril 10 mg 05/08/22 09:00 05/08/22 08:15 Lisinopril 10 Mg Tablet PO 10 mg DAILY JOJO Administration Morphine Sulfate 2 mg 05/08/22 01:05 05/08/22 06:09 Morphine 4 Mg/Ml Sdv 1 Ml IVP 2 mg Q4H PRN Administration SEVERE PAIN Pantoprazole Sodium 40 mg 05/08/22 09:00 05/08/22 08:[address] 40 Mg Tablet PO 40 mg DAILY JOJO Administration PFSH Acute PFSH: Medical History Accidental fentanyl overdose Bilateral pulmonary embolism Cardiac arrest Chronic abdominal pain Chronic hepatitis B Chronic hip pain Cirrhosis COPD (chronic obstructive pulmonary disease) Chronically on 3 L of oxygen Diabetes mellitus Encephalopathy Gastroesophageal reflux GI bleeding Hepatitis B Hypertension Hypothyroidism Leg cramps Overdose Pelvic inflammatory disease Stomach cancer Thrombocytopenia Tobacco dependency Surgical History H/O tubal ligation History of hysterectomy History of laparotomy History of right hemicolectomy Family History Mother Diabetes Father CAD (coronary artery disease) Other Cancer Social History Smoking and tobacco status: former smoker Quit status (tobacco): has quit using tobacco Year quit tobacco: 2020 Former quit date comment: 2ppd x 26 year Hx Alcohol intake: never Vitals/I&O/Wt Last Vital Signs Temp 98.1 F 05/08/22 07:56 Pulse 55 L 05/08/22 07:56 Resp 18 05/08/22 06:09 BP 182/91 05/08/22 07:56 Pulse Ox 97 05/08/22 06:09 O2 Del Method 05/08/22 00:37 05/07/22 05/08/22 05/08/22 22:59 06:59 14:59 Intake Total 50 / 50 Output Total 600 / 600 600 / 600 Balance -550 / -550 -600 / -600 Weight last 48 hrs Weight 242 lb Weight 242 lb Weight 242 lb Physical Exam 2 Narrative: GENERAL: The patient is alert and oriented times three. Not in any acute distress. HEENT: No significant pallor, icterus or lymphadenopathy.Oral cavity: There are no mucous membrane lesions. NECK: Trachea appears to be central. No masses noted. No JVD or thyromegaly appreciated. RESPIRATORY: Chest is symmetrical. No intercostals muscle retraction or any accessory muscle activation. There is no chest wall tenderness. Breath sounds are heard bilaterally. No rales or rhonchi heard. No evidence of any consolidation. BREASTS: Deferred. HEART: The heart sounds are normal. No S3 or S4. No significant murmurs. No pericardial rub ABDOMEN: The laparotomy scar is healing. No vessel pulsations or distention. Diffuse tenderness in the lower abdomen. No organomegaly appreciated. Bowel sounds are normally heard. : Deferred. RECTAL: Deferred. LYMPHATIC: No lymphadenopathy noted in the neck. EXTREMITIES: No edema or cyanosis. No clubbing. MUSCULOSKELETAL: No acute joint deformities or swelling SKIN: There are no significant rashes or ecchymosis NEUROPSYCHIATRIC: The patient is alert and oriented x3. Appears to be in a good mood. No tremors or rigidity noted. Data 05/08/22 05:17 05/08/22 05:17 Other Labs: Laboratory Last Values WBC 9.4 10^3/uL (4.0-10.0) 05/08/22 05:17 RBC 4.28 10^6/uL (4.1-5.3) 05/08/22 05:17 Hgb 13.0 g/dL (11.5-15.3) 05/08/22 05:17 Hct 38.5 % (37.0-47.0) 05/08/22 05:17 MCV 90.0 fl (81-99) 05/08/22 05:17 MCH 30.4 pg (28.0-34.0) 05/08/22 05:17 MCHC 33.8 g/dL (30.0-36.0) 05/08/22 05:17 RDW 12.9 % (12.1-15.1) 05/08/22 05:17 Plt Count 205 10^3/cmm (130-400) 05/08/22 05:17 MPV 10.1 fL (7.4-10.4) 05/08/22 05:17 Neut % (Auto) 51.9 % 05/08/22 05:17 Lymph % (Auto) 30.2 % 05/08/22 05:17 [place] % (Auto) 14.5 % 05/08/22 05:17 Eos % (Auto) 2.4 % 05/08/22 05:17 Baso % (Auto) 0.7 % 05/08/22 05:17 Neut # (Auto) 4.88 10^3/uL (1.8-7.7) 05/08/22 05:17 Lymph # (Auto) 2.9 10^3/uL (0.8-4.8) 05/08/22 05:17 [place] # (Auto) 1.4 10^3/uL (0.2-0.9) H 05/08/22 05:17 Eos # (Auto) 0.2 10^3/uL (0.0-0.8) 05/08/22 05:17 Baso # (Auto) 0.1 10^3/uL (0.0-0.1) 05/08/22 05:17 Nucleated RBC % (auto) 0 % 05/08/22 05:17 Nucleated RBCs # 0.0 /100WBC 05/08/22 05:17 Sodium 139 mmol/L (136-145) 05/08/22 05:17 Potassium 2.8 mmol/L (3.5-5.1) L* D 05/08/22 05:17 Chloride 104 mmol/L (98-107) 05/08/22 05:17 Carbon Dioxide 24 mmol/L (22-29) 05/08/22 05:17 Anion Gap 13.8 (5-19) 05/08/22 05:17 BUN 8 mg/dL (6-20) 05/08/22 05:17 Creatinine 0.5 mg/dL (0.5-0.9) 05/08/22 05:17 GFR Calculation 132.2 mL/min (90-130) H 05/08/22 05:17 Glucose 116 mg/dL (65-115) H 05/08/22 05:17 POC Glucose 151 mg/dL (70-110) H 05/08/22 07:08 Calculated Osmolality 287 mOsm/kg (285-295) 05/08/22 05:17 Lactate 2.1 mmol/L (0.5-2.2) 05/07/22 21:40 Calcium 8.3 mg/dL (8.5-10.5) L 05/08/22 05:17 Magnesium 1.8 mg/dL (1.7-2.3) 05/08/22 05:17 Total Bilirubin 0.8 mg/dL (0.15-1.2) 05/07/22 21:40 AST 26 U/L (0-32) 05/07/22 21:40 ALT 12 U/L (0-33) 05/07/22 21:40 Alkaline Phosphatase 112 U/L (35-105) H 05/07/22 21:40 Troponin T Baseline 9 ng/L (0-10) 05/07/22 21:40 Troponin T 120 Minute 9.42 ng/L (0-10) 05/07/22 23:29 Delta Troponin T 0.42 ABS# (0-10) 05/07/22 23:29 Troponin T Hi Sens 6Hr 10.88 ng/L (0-10) H 05/08/22 05:17 Troponin T Hi Sens 6Hr Delta 1.88 ng/L (0-12) 05/08/22 05:17 NT-Pro-B Natriuret Pep 847 pg/mL (0-125) H 05/07/22 21:40 Total Protein 7.2 g/dL (6.6-8.7) 05/07/22 21:40 Albumin 3.8 g/dL (3.5-5.2) 05/07/22 21:40 Globulin 3.4 g/dL (1.3-4.6) 05/07/22 21:40 Lipase 14 U/L (13-60) 05/08/22 05:17 TSH 0.60 uIU/mL (0.27-4.20) 05/07/22 21:40 Urine Color Yellow (Yellow) 05/08/22 00:04 Urine Appearance Hazy (CLEAR) A 05/08/22 00:04 Urine pH 8 (5-7) H 05/08/22 00:04 Ur Specific [place] 1.015 (1.005-1.030) 05/08/22 00:04 Urine Protein Neg (Negative) 05/08/22 00:04 Urine Glucose (UA) Norm (Normal) 05/08/22 00:04 Urine Ketones Negative (Negative) 05/08/22 00:04 Urine Blood Neg (Negative) 05/08/22 00:04 Urine Nitrate Negative (Negative) 05/08/22 00:04 Urine Bilirubin Neg (Negative) 05/08/22 00:04 Prot Sulfosalicylic Acd Negative (Negative) 05/08/22 00:04 Urine Urobilinogen 8 mg/dL (Negative) H 05/08/22 00:04 Ur Leukocyte Esterase Negative (Negative) 05/08/22 00:04 Urine RBC 0-4 /hpf (0-2) H 05/08/22 00:04 Urine WBC 0-4 /hpf (0-5) H 05/08/22 00:04 Ur Squamous Epith Cells 25-40 /hpf (0-5) H 05/08/22 00:04 Amorphous Sediment Not Reportable 05/08/22 00:04 Urine Bacteria 2+ /hpf (NONE) H 05/08/22 00:04 Urine Mucus 1+ /hpf 05/08/22 00:04 Urine Opiates Screen Positive ng/mL (Negative) H 05/07/22 00:04 Ur Barbiturates Screen Negative ng/mL (Negative) 05/07/22 00:04 Ur Phencyclidine Scrn Negative ng/mL (Negative) 05/07/22 00:04 Ur Amphetamines Screen Negative ng/mL (Negative) 05/07/22 00:04 U Benzodiazepines Scrn Negative ng/mL (Negative) 05/07/22 00:04 Urine Cocaine Screen Negative ng/mL (Negative) 05/07/22 00:04 U Marijuana (THC) Screen Negative ng/mL (Negative) 05/07/22 00:04 EKG 1: My Interpretation: Sinus bradycardia with episodes of sinus pauses and junctional escape beats. Features may suggest sinus node dysfunction A&P Assessment and plan (1) Syncope: The etiology of the syncope is not clear at this time. Cardiac arrhythmia, could be a contributing factor. However in view of her multiple other medical problems, difficult to discern. She need to be closely monitored on telemetry (2) Bradycardia: Patient seems to have sinus bradycardia with sinus pauses and junctional escape beats. She may have underlying sinus node dysfunction. Her pain medications, electrical abnormalities, abdominal pain, etc. also are contributing factors for the bradycardia. At this point, she is hemodynamically stable. Need to be focusing on correcting the electrolytes and investigate the abdominal pain. (3) Accelerated hypertension: Will optimize antihypertensive medications. (4) Seizure disorder: No recent documented seizure episodes. (5) Diabetes mellitus: May continue on the current medications. (6) Hypothyroidism: Clinically euthyroid. Continue on the current treatment. (7) Pulmonary embolism: Has not had a recent recurrence. Qualifiers: Pulmonary embolism type: multiple subsegmental (without acute cor pulmonale) Qualified Code(s): I26.94 - Multiple subsegmental pulmonary emboli without acute cor pulmonale (8) Nicotine dependence, cigarettes, with unspecified nicotine-induced disord ers: (9) Chronic abdominal pain: Could be multifactorial. Investigation as per the primary (10) H/O right hemicolectomy: The laparotomy scar appears to be healing. Plan An echocardiogram would be helpful to evaluate the LV function and rule out any other pathology. Continue monitor on telemetry. Optimize antihypertensive medications. Based on the clinical progress and the results of the above, further recom mendations will be made Thank you for the opportunity to eval this patient and make these recommenda tions Consult Attestations Medical Necessity Statement: Patient requires continued hospital stay for close monitoring and further management Coding Level of Care Code 61460 Diagnoses Syncope R55 Bradycardia R00.1 Accelerated hypertension I10 Seizure disorder G40.909 Diabetes mellitus E11.9 Hypothyroidism E03.9 Pulmonary embolism I26.94 Pulmonary embolism type: multiple subsegmental (without acute cor pulmonale) Nicotine dependence, cigarettes, with unspecified nicotine-induced disorders F17.219 Chronic abdominal pain R10.9; G89.29 H/O right hemicolectomy Z90.49
[2022-05-08] MEDS: budesonide 0.5 mg/2 mL Neb INHALATION ×2 (09:56→20:33)
[2022-05-08] MEDS: oxyCODONE 5 mg IR Tab/Cap 15 MG PO ×3 (10:06→23:29)
[2022-05-08] MEDS: iohexol 350 mg/mL 500 mL Btl (per mL) IV (10:26)
[2022-05-08 11:12] LABS: Glucose Point of Care 231 mg/dL (70-110)
[2022-05-08] MEDS: insulin lispro 100 unit/1 mL SUBCUT (12:27)
[2022-05-08] MEDS: albuterol 2.5 mg/3 mL Neb INHALATION ×2 (14:02→20:32)
[2022-05-08] MEDS: ipratropium 0.5 mg/2.5 mL Neb INHALATION ×2 (14:03→20:33)
--- NOTE | 2022-05-08 15:04 | PC.NURSE ---
Syncopal episode Pt ambulated with stand by assist by SANJAY Reid. Pt was sitting on the commode when she slumped forward. Pt was eased to the floor to an upright position. Pt stated, everything went black. Pt helped to stand and walk back to bed with this nurse and NT. Pt alert and oriented and placed back on monitoring. Phys notified. Pt has call light within reach and bed alarm is on.
[2022-05-08] MEDS: FUROsemide 40 mg Tablet 80 MG PO (16:32)
--- NOTE | 2022-05-08 17:11 | PC.NURSE ---
Pt arrived to floor from ICU via wc. Alert and oriented, able to make needs known. Call light in reach. VSS. Will cont to monitor.
[2022-05-08] MEDS: spironolactone 25 mg Tablet PO (17:17)
[2022-05-08] MEDS: potassium chloride oral liq 20 mEq/15 mL UDC PO (17:17)
[2022-05-08 17:21] LABS: Glucose Point of Care 120 mg/dL (70-110)
[2022-05-08 18:08] LABS: Potassium 3.9 mmol/L (3.5-5.1)
--- NOTE | 2022-05-08 19:00 | PC.NURSE ---
Performed assessment. Patient very lethargic at shift change. Patient arousable and answers questions appropriately. Will continue to monitor.
[2022-05-08] MEDS: doxepin 10 mg Capsule PO (19:56)
[2022-05-08 20:20] LABS: Glucose Point of Care 141 mg/dL (70-110)
--- NOTE | 2022-05-08 22:35 | ECG_ITS ---
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 Measurements Intervals [place] Rate: 60 P: -90 LA: 161 QRS: 59 QRSD: 109 T: -81 QT: 470 QTc: 470 Interpretive Statements ECTOPIC ATRIAL RHYTHM LEFT ATRIAL ENLARGEMENT [-0.15mV P-WAVE IN V1/V2] POSSIBLE LEFT VENTRICULAR HYPERTROPHY [VOLTAGE CRITERIA PLUS LAE OR QRS WIDENING] PROBABLE INFERIOR MYOCARDIAL INFARCTION , OF INDETERMINATE AGE [35 ms Q WAVE IN II/aVF] Compared to ECG 05/07/2022 23:46:23 Ectopic atrial rhythm now present Atrial abnormality now present Myocardial infarct finding now present Sinus bradycardia no longer present Sinus arrhythmia no longer present Electronically Signed On 05-09-2022 17:38:11 SUPERVISOR BONDING by Oseas Junior M.D. [email or web address]/[id number]
--- NOTE | 2022-05-08 22:39 | P.EN_ITS ---
Event Note Event Note: Rapid response called on patient today at around 10:30 PM for patient found unresponsive while being on commode with possibility of asystole on youth nutritional monitor as per the nurse. On examination patient is awake but lethargic, able to have complete conversation, slightly confused but alert and oriented to self, being in the hospital, moving all limbs, having muffled speech but seems to be at baseline as per the nurse at bedside. As per the nurse patient stood up to go to the bedside commode and when checked on again was found to be unresponsive while sitting on the bedside commode on moving back to the bed patient started regaining consciousness. As per the nurse patient has been having low blood pressures during the day going down to 70 systolics. On review of chart it seems yesterday and last night patient was having hypertensive emergency and was transferred from ICU to the floor early in the afternoon today. Patient herself denies any nausea, vomiting, dizziness or chest pain. Patient does have history of esophageal varices but no active signs of bleeding. Nurses are concerned that patient is taking some of her medications by herself. Vitals during the rapid response: Heart rate 58 bpm, blood pressure 102 over 60 mmHg, saturating more than 92% on 3 L nasal cannula. Repeat vitals showed a blood pressure of 85 over 60 mmHg. Blood glucose level found to be around 125. Telemetry reviewed and strips in chart. Patient having episodes of junctional escape with 1 episode of possible pause though having artifacts as well. Plan: Patient most likely having vasovagal syncope in setting of low blood pressures and positive orthostatics. Given presentation on initial admission cannot rule out junctional bradycardia with prolonged pauses. Hold any further diuretics and antihypertensives. Change oxycodone IR to as needed every 8 hourly. 500 cc IV bolus normal saline. Stat CMP, CBC, ammonia level, urine drug screen, ABG, troponin cycle. Crash cart at bedside. IV calcium 1 g stat. Ferro catheter. Strict input output charting, monitor vitals. Her blood pressures remain low can plan to transfer to ICU for possible vasopressor versus oral midodrine. We will continue to monitor. With follow-up labs and plan treatment accordingly. High MDM includes number and complexity of problems actively addressed during encounter, amount and/or complexity of data reviewed/ordered [ previous or external records, resulted lab(s)/test(s), ordered lab(s)/test(s), independent historian, independent test interpretation and other healthcare professional discussion] and described risk of complication, morbidity or mortality of management as documented and High Time for a total of 70 minutes, includes reviewing past or interval history, examining/interviewing patient, placing orders, counseling patient/family/other support, updating patient/family/other support, discussing plan of care with staff, communicating with other healthcare providers, documenting encounter and coordinating care
[2022-05-08] MEDS: calcium gluconate 0.9% NaCL 1 GM/50 ML PREMIX IV (22:50)
[2022-05-08 22:55] LABS: Glucose Point of Care 126 mg/dL (70-110)
[2022-05-08 22:59] LABS: ABG PCO2 30.9 mmHg (35-45); ABG PH Result 7.45 (7.35-7.45)
[2022-05-08 23:01] LABS: Base Excess ABG -1.2 mmol/L (-2.0-2.0); Blood Gas Allen Test POS; HCO3 ABG 21.6 mmol/L (22-26); Oxygen Device NC; Oxygen Saturation ABG 94.9; Potassium Level - ABG 3.9 mmol/L (3.5-5.0)
[2022-05-08 23:02] LABS: Blood Gas Sample Site RIGHT RADIAL; Blood Gas Sample Type ARTERIAL
[2022-05-08 23:03] LABS: Basophils # 0.1 10^3/uL (0.0-0.1); Basophils % 0.9 %; Eosinophils # 0.2 10^3/uL (0.0-0.8); Eosinophils % 2.5 %; Hematocrit 44.3 % (37.0-47.0); Hemoglobin 14.9 g/dL (11.5-15.3); Lymphocytes # 3.2 10^3/uL (0.8-4.8); Lymphocytes % 37.7 %; Mean Corpuscular HGB Conc 33.6 g/dL (30.0-36.0); Mean Corpuscular Hemoglobin 30.3 pg (28.0-34.0); Mean Platelet Volume 11.5 fL (7.4-10.4); Monocytes # 1.2 10^3/uL (0.2-0.9); Neutrophils # 3.83 10^3/uL (1.8-7.7); Neutrophils % 44.8 %; Nucleated Red Blood Cells % 0 %; Platelet Count 290 10^3/cmm (130-400); Red Blood Count 4.92 10^6/uL (4.1-5.3); Red Cell Distribution Width 13.3 % (12.1-15.1); White Blood Count 8.6 10^3/uL (4.0-10.0)
[2022-05-08] MEDS: sodium chloride 0.9% 500 ML IV (23:45)
--- NOTE | 2022-05-08 23:54 | PC.NURSE ---
~2210 patient called out for assistance to BSC. Patient was requesting something for pain. SUJIT Lackey asked this RN if anything was due. Informed nothing due for pain at this time. She returned to room and found placed slumped backwards on the BSC. Patient unresponsive at that time. Rapid response called. Patient placed in bed x4 assist. Patient started to arouse but very lethargic. Dr Gutierrez in the room. placing orders. Strips printed and placed in chart. Orders completed. Patient awake and answers questions appropriately. Does not remember event.
[2022-05-09] VITALS (101 sets, daily range): BP systolic 70–204; BP diastolic 37–119; PULSE 41–83; RESP 12–24; O2SAT 86–100
[2022-05-09 00:02] LABS: Amphetamines Screen Urine Negative (Negative); Barbiturates Screen Urine Negative (Negative); Benzodiazepines Screen Urine Negative (Negative); Cocaine Screen Urine Negative (Negative); Opiate Screen Urine Positive (Negative); PCP Screen Urine Negative (Negative); THC Screen Urine Negative (Negative)
--- NOTE | 2022-05-09 00:38 | ECG_ITS ---
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 Measurements Intervals [place] Rate: 51 P: 47 MN: 163 QRS: 15 QRSD: 102 T: 22 QT: 481 QTc: 445 Interpretive Statements SINUS BRADYCARDIA POSSIBLE LEFT ATRIAL ENLARGEMENT [-0.1mV P-WAVE IN V1/V2] Compared to ECG 05/08/2022 22:34:49 Ectopic atrial rhythm no longer present Myocardial infarct finding no longer present Electronically Signed On 05-09-2022 17:40:46 COAT REPAIR INSPECTOR by Oseas Junior M.D. [email or web address] branch [email or web address] state university [facility].[employer]/store/[id number]
--- NOTE | 2022-05-09 00:49 | PC.NURSE ---
Patient BP dropping at this time. SBP in the 70s. Informed Dr Montaño and received orders to give 2nd 500ml bolus of NS, onetime dose of midodrine 10mg PO and to transfer to ICU. Patient to be transferred to ICU 8
[2022-05-09 00:51] LABS: Alanine Aminotransferase 13 U/L (0-33); Albumin Level 3.4 g/dL (3.5-5.2); Alkaline Phosphatase 107 U/L (35-105); Blood Urea Nitrogen 9 mg/dL (6-20); Calcium 9.4 mg/dL (8.5-10.5); Carbon Dioxide 20 mmol/L (22-29); Chloride 99 mmol/L (98-107); Globulin 4.6 g/dL (1.3-4.6); Glomerular Filtration Rate 76.9 mL/min (90-130); Glucose 97 mg/dL (65-115); Magnesium 1.6 mg/dL (1.7-2.3); Osmolality Calculated 279 mOsm/kg (285-295); Sodium 135 mmol/L (136-145); Total Bilirubin 0.9 mg/dL (0.15-1.2)
[2022-05-09] MEDS: sodium chloride 0.9% 500 ML 999 ML IV (00:51)
[2022-05-09 00:52] LABS: Troponin(5th) Baseline 15 ng/L (0-10)
[2022-05-09] MEDS: midodrine 5 mg TABLET 10 MG PO (00:55)
[2022-05-09 01:04] LABS: Anion Gap 19.7 (5-19); Potassium 3.7 mmol/L (3.5-5.1)
[2022-05-09 01:05] LABS: Aspartate Amino Transferase 31 U/L (0-32)
[2022-05-09] MEDS: sodium chloride 0.9% 1,000 ML 75 ML IV (01:47)
[2022-05-09] MEDS: magnesium sulfate premix 2 GM/50 ML PIGGYBACK IV (01:47)
[2022-05-09 04:05] LABS: Ammonia 88 umol/L (11-51); Troponin 5 2HR 13.95 ng/L (0-10)
[2022-05-09 04:07] LABS: Troponin 5 2HR Delta -1.05 ABS# (0-10)
--- NOTE | 2022-05-09 04:38 | ECG_ITS ---
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 Measurements Intervals [place] Rate: 60 P: 124 NM: 173 QRS: 140 QRSD: 110 T: 142 QT: 456 QTc: 457 Interpretive Statements SINUS RHYTHM ARM LEADS REVERSED [INVERTED P AND QRS IN I] Compared to ECG 05/09/2022 00:50:12 Sinus bradycardia no longer present Electronically Signed On 05-09-2022 17:40:38 POTATO CHIP FRYER by Oseas Junior M.D. [email or web address] medical [email or web address] Fundingst. elizabeth hospital.[employer]/store/OM/[id number]
[2022-05-09] MEDS: hyDRALAzine 20 mg/mL INJ 1 mL 10 MG IVP (05:23)
[2022-05-09] MEDS: levothyroxine 50 mcg Tablet PO (05:23)
[2022-05-09] MEDS: oxyCODONE 5 mg IR Tab/Cap 15 MG PO ×3 (05:40→21:40)
[2022-05-09 06:56] LABS: Troponin 5 6HR 13.59 ng/L (0-10)
[2022-05-09 07:05] LABS: Troponin 5 6HR Delta -1.41 ng/L (0-12)
--- NOTE | 2022-05-09 07:36 | PM.PN ---
Subjective Subjective: Events of last night noted. Patient in transition to cardiac stepdown unit. When going to the bathroom, she had a syncopal episode. There were concerns of long pauses on her strip, and perhaps junctional rhythm when this was resolving. She had had some lower blood pressures prior to the event. Earlier in the day blood pressures have been markedly elevated. There was concern that she may have had a vasovagal episode. Midodrine was initiated. Many of her medications, blood pressure medications were held. Electrolytes were rechecked. Magnesium slightly low and this is being supplemented. Medications: Reviewed: Yes Vitals/I&O/Wt Last Vital Signs Temp 96.8 F L 05/08/22 19:59 Pulse 50 L 05/09/22 06:00 Resp 20 H 05/09/22 05:40 BP 204/101 05/09/22 04:00 Pulse Ox 93 05/09/22 05:40 O2 Del Method 05/09/22 02:00 O2 Flow Rate 3 05/09/22 02:00 FiO2 3 05/08/22 19:59 05/08/22 05/09/22 05/09/22 22:59 06:59 14:59 Intake Total 455 / 805 1100 / 1905 Output Total 1800 / 3700 950 / 4650 Balance -1345 / -2895 150 / -2745 Weight last 48 hrs Weight 109.5 kg Weight 109.769 kg Weight 109.769 kg Weight 109.769 kg Physical Exam Narrative: General exam is a white female, awakens easily, reports she does not feel dizzy or palpitations currently. Blood pressure at this moment appears normal. Telemetry is 60, sinus Neck is supple no lymphadenopathy thyromegaly Cardiovascular bradycardic, no murmur Lungs clear no wheezing or crackles Abdomen positive bowel sounds. No significant tenderness currently Extremities no cyanosis clubbing or edema, cap refill brisk Skin no rash Neuro no obvious focal deficits Urinary Catheter Management: Ferro: Cath Placed During This Visit: yes Reason for Continuing Indwelling Catheter: Accurate Measurement of Urinary Output in Critically Ill Patients Urinary Catheter Date of Insertion: 05/08/22 Urinary Catheter Time of Insertion: 23:45 Data 05/08/22 22:52 05/09/22 00:20 A&P Assessment and plan (1) Symptomatic bradycardia: Etiology unclear Associated with syncope TSH normal Magnesium slightly low but has been supplemented. No other electrolyte abnormalities are noted Multiple medications have been discontinued secondary to concern for antinausea medication could have caused bradycardia. Despite this, she had a significant event of syncope yesterday, and concern of long pauses on telemetry Cardiology is following, appreciate their consultation Supplementing magnesium today. Recheck electrolytes and CBC tomorrow Discontinue Lasix and Aldactone currently. She does not appear fluid overloaded. She is overall negative in regards to fluid status since admission. Will discontinue her doxepin as well (2) COPD (chronic obstructive pulmonary disease): DuoNeb every 6 hours Budesonide twice daily. No evidence of exacerbation currently. Qualifiers: COPD type: unspecified COPD Qualified Code(s): J44.9 - Chronic obstructive pulmonary disease, unspecified (3) Hypomagnesemia: Supplementation initiated Recheck magnesium level tomorrow (4) Diabetes mellitus: Sliding scale insulin (5) Chronic abdominal pain: Continue chronic pain medications. At this point her pain seems improved and we will try to discontinue morphine (6) Hypothyroidism: TSH was normal (7) Tobacco dependency: Encourage abstinence Plan Probable orthostatic hypotension. Lasix held. Lisinopril, Aldactone discontinued. Midodrine ordered as needed. History of cirrhosis. Continue rifaximin. Lactulose initiated secondary to elevated ammonia level Multiple other medical problems as outlined in past medical history Attestations Medical Necessity Statement*: Needs continued hospitalization secondary to cardiac arrhythmia, syncope, symptomatic bradycardia, orthostatic hypotension Diagnoses Symptomatic bradycardia R00.1 COPD (chronic obstructive pulmonary disease) J44.9 COPD type: unspecified COPD Hypomagnesemia E83.42 Diabetes mellitus E11.9 Chronic abdominal pain R10.9; G89.29 Hypothyroidism E03.9 Tobacco dependency F17.200
[2022-05-09] MEDS: lactulose oral liq 20 gm/30 mL UDC 10 GM PO ×4 (08:07→23:52)
[2022-05-09] MEDS: gabapentin 300 mg Capsule PO ×2 (08:08→17:36)
[2022-05-09] MEDS: pantoprazole DR 40 mg Tablet PO (08:08)
[2022-05-09] MEDS: levETIRAcetam 500 mg Tablet 750 MG PO ×2 (08:08→17:36)
[2022-05-09] MEDS: lamoTRIgine 100 mg Tablet 200 MG PO (08:08)
[2022-05-09 08:19] LABS: Glucose Point of Care 165 mg/dL (70-110)
[2022-05-09] MEDS: insulin lispro 100 unit/1 mL SUBCUT (08:42)
[2022-05-09] MEDS: ipratropium 0.5 mg/2.5 mL Neb INHALATION (09:35)
[2022-05-09] MEDS: albuterol 2.5 mg/3 mL Neb INHALATION (09:35)
[2022-05-09] MEDS: budesonide 0.5 mg/2 mL Neb INHALATION (09:35)
[2022-05-09 10:51] LABS: INR 1.16 (0.8-1.2)
[2022-05-09 11:17] LABS: Glucose Point of Care 94 mg/dL (70-110)
--- NOTE | 2022-05-09 12:34 | PC.PT ---
Patient nurse recommends hold physical therapy today as patient is supposed to receive pacemaker tomorrow, and continues with bradycardia, recent heart rate 44.
[2022-05-09] MEDS: sodium chloride 0.9% 1,000 ML 999 ML IV (13:02)
[2022-05-09] MEDS: sodium chloride 0.9% 1,000 ML 125 ML IV ×2 (13:03→21:42)
--- NOTE | 2022-05-09 13:43 | PM.PN ---
Subjective Subjective: This patient has bradycardia associated with prolonged pauses of more than 3 seconds and a near syncopal episode, while being in the telemetry floor. She also had episodes of bradycardia with a heart rate in the 40s. So she was brought back to the ICU. Has not had any more prolonged pauses while being in the ICU. Her blood pressure has been fluctuating from a systolic of 100 to 220 millimeters of mercury. Patient denies any chest pain. No fever, chills or cough. Medications: Medication Review Details: Current Medications Acetaminophen (Acetaminophen 325 Mg Tablet) 650 mg PO Q6H PRN PRN Reason: MILD PAIN Albuterol Sulfate (Albuterol 2.5 Mg/3 Ml Neb) 2.5 mg INHALATION Q6H.RESP JOJO Last Admin: 05/09/22 09:35 Dose: 2.5 mg Budesonide (Budesonide 0.5 Mg/2 Ml Neb) 0.5 mg INHALATION BID.RESPIRATORY [facility] Last Admin: 05/09/22 09:35 Dose: 0.5 mg Dextrose (Dextrose 50% Syringe 50 Ml) 25 ml IVP ONCE PRN; Protocol PRN Reason: hypoglycemia protocol Dextrose (Dextrose 50% Syringe 50 Ml) 50 ml IVP PRN PRN; Protocol PRN Reason: hypoglycemia protocol Enoxaparin Sodium (Enoxaparin 40 Mg/0.4 Ml Syringe) 40 mg SUBCUT Q24H [facility] Last Admin: 05/08/22 23:28 Dose: 40 mg Furosemide (Furosemide 40 Mg Tablet) 80 mg PO BID@08,16 [facility] Last Admin: 05/08/22 16:32 Dose: 80 mg Gabapentin (Gabapentin 300 Mg Capsule) 300 mg PO BID [facility] Last Admin: 05/09/22 08:08 Dose: 300 mg Glucagon (Glucagon 1 Mg/Ml Inj 1 Ml) 1 mg IM ONCE PRN; Protocol PRN Reason: Adult Acute Hypoglycemia Prot. Hydralazine HCl (Hydralazine 20 Mg/Ml Inj 1 Ml) 10 mg IVP Q4H PRN PRN Reason: HYPERTENSION Last Admin: 05/09/22 05:23 Dose: 10 mg Dextrose (D5w) 500 mls @ 100 mls/hr IV ONCE PRN; Protocol PRN Reason: Adult Acute Hypoglycemia Prot Sodium Chloride (Sodium Chloride 0.9%) 1,000 mls @ 75 mls/hr IV .[id number] JOJO Stop: 05/09/22 14:04 Last Admin: 05/09/22 01:47 Dose: 75 mls/hr Sodium Chloride (Sodium Chloride 0.9%) 1,000 mls @ 999 mls/hr IV .Q1H1M ONE Stop: 05/09/22 13:53 Last Admin: 05/09/22 13:02 Dose: 999 mls/hr Sodium Chloride (Sodium Chloride 0.9%) 1,000 mls @ 125 mls/hr IV .Q8H [facility] Last Admin: 05/09/22 13:03 Dose: 125 mls/hr Insulin Human Lispro (Insulin Lispro 100 Unit/1 Ml) 0 unit SUBCUT WM&BEDTIME [facility]; Protocol Last Admin: 05/09/22 11:28 Dose: Not Given Ipratropium [place] (Ipratropium 0.5 Mg/2.5 Ml Neb) 0.5 mg INHALATION Q6H.RESP [facility] Last Admin: 05/09/22 09:35 Dose: 0.5 mg Lactulose (Lactulose Oral Liq 20 Gm/30 Ml Udc) 10 gm PO Q6H [facility] Last Admin: 05/09/22 11:34 Dose: 10 gm Lamotrigine (Lamotrigine 100 Mg Tablet) 200 mg PO DAILY [facility] Last Admin: 05/09/22 08:08 Dose: 200 mg Levetiracetam (Levetiracetam 500 Mg Tablet) 750 mg PO BID [facility] Last Admin: 05/09/22 08:08 Dose: 750 mg Levothyroxine Sodium (Levothyroxine 50 Mcg Tablet) 50 mcg PO QAM [facility] Last Admin: 05/09/22 05:23 Dose: 50 mcg Lisinopril (Lisinopril 10 Mg Tablet) 10 mg PO DAILY [facility] Last Admin: 05/08/22 08:15 Dose: 10 mg Midodrine (Midodrine 5 Mg Tablet) 10 mg PO ONCE [facility] Last Admin: 05/09/22 00:55 Dose: 10 mg Midodrine (Midodrine 5 Mg Tablet) 5 mg PO TID PRN PRN Reason: Sbp less than 90 mmhg Ondansetron HCl (Ondansetron 2 Mg/Ml Sdv 2 Ml) 4 mg IVP Q6H PRN PRN Reason: NAUSEA AND VOMITING Oxycodone HCl (Oxycodone 5 Mg Ir Tab/Cap) 15 mg PO Q8H PRN PRN Reason: pain Last Admin: 05/09/22 05:40 Dose: 15 mg Pantoprazole Sodium (Pantoprazole Dr 40 Mg Tablet) 40 mg PO DAILY [facility] Last Admin: 05/09/22 08:08 Dose: 40 mg Rifaximin (Rifaximin 550 Mg Tablet) 550 mg PO BID [facility]; Protocol Last Admin: 05/09/22 08:08 Dose: 550 mg Spironolactone (Spironolactone 25 Mg Tablet) 25 mg PO BID [facility] Last Admin: 05/08/22 17:17 Dose: 25 mg Vitals/I&O/Wt Last Vital Signs Temp 96.8 F L 05/08/22 19:59 Pulse 63 05/09/22 09:49 Resp 18 05/09/22 09:35 BP 110/60 05/09/22 08:00 Pulse Ox 93 05/09/22 09:35 O2 Del Method 05/09/22 09:35 O2 Flow Rate 3 05/09/22 09:35 FiO2 3 05/09/22 07:58 05/08/22 05/09/22 05/09/22 22:59 06:59 14:59 Intake Total 455 / 805 1100 / 1905 Output Total 1800 / 3700 950 / 4650 Balance -1345 / -2895 150 / -2745 Weight last 48 hrs Weight 241 lb 6.499 oz Weight 242 lb Weight 242 lb Weight 242 lb Physical Exam Narrative: GENERAL: The patient is alert and oriented times three. Not in any acute distress. HEENT: No significant pallor, icterus or lymphadenopathy.Oral cavity: There are no mucous membrane lesions. NECK: Trachea appears to be central. No masses noted. No JVD or thyromegaly appreciated. RESPIRATORY: Chest is symmetrical. No intercostals muscle retraction or any accessory muscle activation. There is no chest wall tenderness. Breath sounds are heard bilaterally. No rales or rhonchi heard. No evidence of any consolidation. BREASTS: Deferred. HEART: The heart sounds are normal. No S3 or S4. No significant murmurs. No pericardial rub ABDOMEN: The laparotomy scar is healing. No vessel pulsations or distention. Diffuse tenderness in the lower abdomen. No organomegaly appreciated. Bowel sounds are normally heard. : Deferred. RECTAL: Deferred. LYMPHATIC: No lymphadenopathy noted in the neck. EXTREMITIES: No edema or cyanosis. No clubbing. MUSCULOSKELETAL: No acute joint deformities or swelling SKIN: There are no significant rashes or ecchymosis NEUROPSYCHIATRIC: The patient is alert and oriented x3. Appears to be in a good mood. No tremors or rigidity noted. Urinary Catheter Management: Ferro: Cath Placed During This Visit: yes Reason for Continuing Indwelling Catheter: Accurate Measurement of Urinary Output in Critically Ill Patients Urinary Catheter Date of Insertion: 05/08/22 Urinary Catheter Time of Insertion: 23:45 Data 05/08/22 22:52 05/09/22 00:20 Other Labs: Laboratory Last Values WBC 8.6 10^3/uL (4.0-10.0) 05/08/22 22:52 RBC 4.92 10^6/uL (4.1-5.3) 05/08/22 22:52 Hgb 14.9 g/dL (11.5-15.3) 05/08/22 22:52 Hct 44.3 % (37.0-47.0) 05/08/22 22:52 MCV 90.0 fl (81-99) 05/08/22 22:52 MCH 30.3 pg (28.0-34.0) 05/08/22 22:52 MCHC 33.6 g/dL (30.0-36.0) 05/08/22 22:52 RDW 13.3 % (12.1-15.1) 05/08/22 22:52 Plt Count 290 10^3/cmm (130-400) D 05/08/22 22:52 MPV 11.5 fL (7.4-10.4) H 05/08/22 22:52 Neut % (Auto) 44.8 % 05/08/22 22:52 Lymph % (Auto) 37.7 % 05/08/22 22:52 [place] % (Auto) 14.0 % 05/08/22 22:52 Eos % (Auto) 2.5 % 05/08/22 22:52 Baso % (Auto) 0.9 % 05/08/22 22:52 Neut # (Auto) 3.83 10^3/uL (1.8-7.7) 05/08/22 22:52 Lymph # (Auto) 3.2 10^3/uL (0.8-4.8) 05/08/22 22:52 [place] # (Auto) 1.2 10^3/uL (0.2-0.9) H 05/08/22 22:52 Eos # (Auto) 0.2 10^3/uL (0.0-0.8) 05/08/22 22:52 Baso # (Auto) 0.1 10^3/uL (0.0-0.1) 05/08/22 22:52 Nucleated RBC % (auto) 0 % 05/08/22 22:52 Nucleated RBCs # 0.0 /100WBC 05/08/22 22:52 PT 15.10 SECONDS (12.1-14.9) H 05/09/22 09:49 INR 1.16 (0.8-1.2) 05/09/22 09:49 Specimen Type Arterial 05/08/22 22:34 Sample Site Right radial 05/08/22 22:34 ABG pH 7.45 (7.35-7.45) 05/08/22 22:34 ABG pCO2 30.9 mmHg (35-45) L 05/08/22 22:34 ABG pO2 77.0 mmHg (80.0-100.0) L 05/08/22 22:34 ABG HCO3 21.6 mmol/L (22-26) L 05/08/22 22:34 ABG O2 Saturation 94.9 05/08/22 22:34 ABG Base Excess -1.2 mmol/L (-2.0-2.0) 05/08/22 22:34 Dusty Test Pos 05/08/22 22:34 Sodium 137.0 mmol/L (131-143) 05/08/22 22:34 Potassium 3.9 mmol/L (3.5-5.0) 05/08/22 22:34 O2 Delivery Device Nc 05/08/22 22:34 O2 Liters/Min 4.0 % 05/08/22 22:34 Specimen Drawn By [employer] 05/08/22 22:34 Sodium 135 mmol/L (136-145) L 05/09/22 00:20 Potassium 3.7 mmol/L (3.5-5.1) 05/09/22 00:20 Chloride 99 mmol/L (98-107) 05/09/22 00:20 Carbon Dioxide 20 mmol/L (22-29) L 05/09/22 00:20 Anion Gap 19.7 (5-19) H 05/09/22 00:20 BUN 9 mg/dL (6-20) 05/09/22 00:20 Creatinine 0.8 mg/dL (0.5-0.9) 05/09/22 00:20 GFR Calculation 76.9 mL/min (90-130) L 05/09/22 00:20 Glucose 97 mg/dL (65-115) 05/09/22 00:20 POC Glucose 104 mg/dL (70-110) 05/09/22 16:29 Calculated Osmolality 279 mOsm/kg (285-295) L 05/09/22 00:20 Lactate 2.1 mmol/L (0.5-2.2) 05/07/22 21:40 Calcium 9.4 mg/dL (8.5-10.5) 05/09/22 00:20 Magnesium 1.6 mg/dL (1.7-2.3) L 05/09/22 00:20 Total Bilirubin 0.9 mg/dL (0.15-1.2) 05/09/22 00:20 AST 31 U/L (0-32) 05/09/22 00:20 ALT 13 U/L (0-33) 05/09/22 00:20 Alkaline Phosphatase 107 U/L (35-105) H 05/09/22 00:20 Ammonia 88 umol/L (11-51) H 05/09/22 03:20 Troponin T Baseline 15 ng/L (0-10) H 05/09/22 00:20 Troponin T 120 Minute 13.95 ng/L (0-10) H 05/09/22 03:20 Delta Troponin T -1.05 ABS# (0-10) L 05/09/22 03:20 Troponin T Hi Sens 6Hr 13.59 ng/L (0-10) H 05/09/22 06:07 Troponin T Hi Sens 6Hr Delta -1.41 ng/L (0-12) L 05/09/22 06:07 NT-Pro-B Natriuret Pep 847 pg/mL (0-125) H 05/07/22 21:40 Total Protein 8.0 g/dL (6.6-8.7) 05/09/22 00:20 Albumin 3.4 g/dL (3.5-5.2) L 05/09/22 00:20 Globulin 4.6 g/dL (1.3-4.6) 05/09/22 00:20 Lipase 14 U/L (13-60) 05/08/22 05:17 TSH 0.60 uIU/mL (0.27-4.20) 05/07/22 21:40 Urine Color Yellow (Yellow) 05/08/22 00:04 Urine Appearance Hazy (CLEAR) A 05/08/22 00:04 Urine pH 8 (5-7) H 05/08/22 00:04 Ur Specific [place] 1.015 (1.005-1.030) 05/08/22 00:04 Urine Protein Neg (Negative) 05/08/22 00:04 Urine Glucose (UA) Norm (Normal) 05/08/22 00:04 Urine Ketones Negative (Negative) 05/08/22 00:04 Urine Blood Neg (Negative) 05/08/22 00:04 Urine Nitrate Negative (Negative) 05/08/22 00:04 Urine Bilirubin Neg (Negative) 05/08/22 00:04 Prot Sulfosalicylic Acd Negative (Negative) 05/08/22 00:04 Urine Urobilinogen 8 mg/dL (Negative) H 05/08/22 00:04 Ur Leukocyte Esterase Negative (Negative) 05/08/22 00:04 Urine RBC 0-4 /hpf (0-2) H 05/08/22 00:04 Urine WBC 0-4 /hpf (0-5) H 05/08/22 00:04 Ur Squamous Epith Cells 25-40 /hpf (0-5) H 05/08/22 00:04 Amorphous Sediment Not Reportable 05/08/22 00:04 Urine Bacteria 2+ /hpf (NONE) H 05/08/22 00:04 Urine Mucus 1+ /hpf 05/08/22 00:04 Urine Opiates Screen Positive ng/mL (Negative) H 05/08/22 22:40 Ur Barbiturates Screen Negative ng/mL (Negative) 05/08/22 22:40 Ur Phencyclidine Scrn Negative ng/mL (Negative) 05/08/22 22:40 Ur Amphetamines Screen Negative ng/mL (Negative) 05/08/22 22:40 U Benzodiazepines Scrn Negative ng/mL (Negative) 05/08/22 22:40 Urine Cocaine Screen Negative ng/mL (Negative) 05/08/22 22:40 U Marijuana (THC) Screen Negative ng/mL (Negative) 05/08/22 22:40 Echo: My impression: 05/08/2022 ?LV systolic function is normal with EF 55 to 60% ?Diastolic function is abnormal ?Left atrial dilation ?Mild mitral annular calcification is seen.? Moderate mitral ?regurgitation ?Mild tricuspid regurgitation. ?Mild pulmonary hypertension ?Compared to prior echocardiogram from 08/07/2021, mitral ?regurgitation has progressed and is moderate now EKG 2: My Interpretation: Sinus rhythm with a heart rate of [address]-T changes. Arm lead reversal as present. 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 For further management of her condition, she requires a permanent pacemaker implantation. The risk of bleeding, hematoma, vascular injury, myocardial perforation, pericardial tamponade, pneumothorax, infection, renal failure and other concomitant complications were explained in detail. The patient understood this well and consented to proceed. We may go ahead and schedule this procedure tomorrow in the [employer]. Patient expressed her desire not to be awake during this procedure. As per her request, I may ask anesthesia service to administer sedation on this patient. Patient apparently has been on chronic pain medications/narcotics for a long time. (2) Bradycardia: Patient seems to have symptomatic bradycardia. She requires a dual-chamber pacemaker for further management. This is a patient in detail. She was found to have a 3.8-second and a 7-second pause on the telemetry associated with a near syncope. She also was found to have sinus bradycardia with a heart rate in the 30s and 40s around this time (3) Accelerated hypertension: Patient's blood pressure has been fluctuating. Currently she is normotensive. She had a few hypotensive episodes and was given midodrine one-time. Echocardiogram revealed normal LV size ejection fraction. No significant wall motion abnormalities. (4) Seizure disorder: Patient has not had any recurrence of seizure disorder (5) Diabetes mellitus: May continue on the current medications. (6) Hypothyroidism: Clinically euthyroid. Continue on the current treatment. (7) Pulmonary embolism: Has not had a recent recurrence. Qualifiers: Pulmonary embolism type: multiple subsegmental (without acute cor pulmonale) Qualified Code(s): I26.94 - Multiple subsegmental pulmonary emboli without acute cor pulmonale (8) Nicotine dependence, cigarettes, with unspecified nicotine-induced disorders: (9) Chronic abdominal pain: Continues to have abdominal pain at the laparotomy site. The CT of the abdomen and pelvis yesterday. She was found to have some postoperative changes. Also was found to have dilated bile duct of 1.3cm. (10) H/O right hemicolectomy: The laparotomy scar appears to be healing. Plan Patient will be scheduled for the permanent pacer implantation in the morning. We will try to get anesthesia service to administer the IV sedation. Based on her clinical progress, further recommendations will be made. Attestations Medical Necessity Statement*: Patient requires continued hospital stay for close monitoring and further management Coding Level of Care Code 72912 Diagnoses Syncope R55 Bradycardia R00.1 Accelerated hypertension I10 Seizure disorder G40.909 Diabetes mellitus E11.9 Hypothyroidism E03.9 Pulmonary embolism I26.94 Pulmonary embolism type: multiple subsegmental (without acute cor pulmonale) Nicotine dependence, cigarettes, with unspecified nicotine-induced disorders F17.219 Chronic abdominal pain R10.9; G89.29 H/O right hemicolectomy Z90.49
[2022-05-09 16:32] LABS: Glucose Point of Care 104 mg/dL (70-110)
[2022-05-09 20:33] LABS: Glucose Point of Care 114 mg/dL (70-110)
[2022-05-10] VITALS (51 sets, daily range): BP systolic 83–185; BP diastolic 45–102; PULSE 54–136; RESP 14–31; TEMP 37.1; O2SAT 93–100
[2022-05-10 03:11] LABS: Basophils % 0.7 %; Eosinophils # 0.2 10^3/uL (0.0-0.8); Eosinophils % 3.7 %; Hematocrit 37.7 % (37.0-47.0); Hemoglobin 12.5 g/dL (11.5-15.3); Lymphocytes # 1.9 10^3/uL (0.8-4.8); Lymphocytes % 35.6 %; Mean Corpuscular HGB Conc 33.2 g/dL (30.0-36.0); Mean Corpuscular Hemoglobin 30.5 pg (28.0-34.0); Mean Platelet Volume 10.4 fL (7.4-10.4); Monocytes # 0.8 10^3/uL (0.2-0.9); Monocytes % 14.1 %; Neutrophils # 2.48 10^3/uL (1.8-7.7); Neutrophils % 45.5 %; Nucleated Red Blood Cells % 0 %; Platelet Count 160 10^3/cmm (130-400); Red Cell Distribution Width 13.2 % (12.1-15.1); White Blood Count 5.5 10^3/uL (4.0-10.0)
[2022-05-10 03:27] LABS: Alanine Aminotransferase 8 U/L (0-33); Albumin Level 2.8 g/dL (3.5-5.2); Alkaline Phosphatase 86 U/L (35-105); Anion Gap 14.5 (5-19); Aspartate Amino Transferase 21 U/L (0-32); Blood Urea Nitrogen 11 mg/dL (6-20); Calcium 8.3 mg/dL (8.5-10.5); Carbon Dioxide 20 mmol/L (22-29); Chloride 105 mmol/L (98-107); Globulin 3.4 g/dL (1.3-4.6); Glomerular Filtration Rate 76.9 mL/min (90-130); Glucose 105 mg/dL (65-115); Magnesium 1.8 mg/dL (1.7-2.3); Osmolality Calculated 282 mOsm/kg (285-295); Potassium 3.5 mmol/L (3.5-5.1); Sodium 136 mmol/L (136-145); Total Bilirubin 0.6 mg/dL (0.15-1.2); Total Protein 6.2 g/dL (6.6-8.7)
[2022-05-10] MEDS: sodium chloride 0.9% 1,000 ML 125 ML IV (05:50)
--- NOTE | 2022-05-10 06:49 | ANES.PREANE2 ---
Pre-Anesthetic Assessment Height/Weight: Height 1.83 m Weight 109.769 kg Temp Pulse Resp BP Pulse Ox O2 Del Method O2 Flow Rate 96.8 F L 72 15 136/68 99 3 05/08/22 19:59 05/10/22 06:00 05/10/22 04:30 05/10/22 04:30 05/10/22 04:30 05/09/22 20:00 05/09/22 20:00 FiO2 3 05/10/22 04:00 Operation Date: 05/10/22 08:30 Proposed Procedures p Pacemaker Insertion(Left) - Suzy Wyman MD Familial anesthetic complications: None Was Beta Jadon taken within 24 hours: N/A Was Clonidine taken within 24 hours: N/A Last intake: > 8hrs Social No alcohol and No tobacco Exam alert, oriented x 3, clear to auscultation bilaterally and regular rate & rhythm Airway Mallampati: Class III Dentition: other (no teeth) Pulmonary Chronic Obstructive Pulmonary Disease (3 L/min home O2) CV/HEM PE Echo 23 CONCLUSIONS ?LV systolic function is normal with EF 55 to 60% ?Diastolic function is abnormal ?Left atrial dilation ?Mild mitral annular calcification is seen.? Moderate mitral ?regurgitation ?Mild tricuspid regurgitation. ?Mild pulmonary hypertension ?Compared to prior echocardiogram from 08/07/2021, mitral ?regurgitation has progressed and is moderate now Hepatic chronic hep B w/ cirrhotic liver on imaging GI R hemicolectomy Metabolic Diabetes Mellitus and Thyroid Disease Anesthetic Plan ASA status: 4 Anesthesia: MAC Risk of > 500 ml blood loss (7ml/kg in children): No Medications/Allergies Home Medications Medication Instructions Recorded Confirmed Last Taken Type levothyroxine 50 mcg tablet 50 mcg PO QAM #30 tabs 12/23/19 05/08/22 01/02/22 Rx insulin glargine 100 unit/mL See Rx Instructions .Route .COMPLEX 10/17/20 05/08/22 01/05/22 History subcutaneous solution (Lantus U-100 Insulin) levetiracetam 750 mg tablet 750 mg PO BID 10/17/20 05/08/22 01/02/22 History pantoprazole 40 mg tablet,delayed 40 - 80 mg PO DAILY PRN Acid Reflux 10/17/20 05/08/22 Unknown History release spironolactone 25 mg tablet 25 mg PO BID 10/17/20 05/08/22 01/05/22 History sumatriptan succinate 50 mg tablet 50 mg PO Q2H PRN Migraine Headache 10/17/20 05/08/22 Unknown History (Imitrex) tizanidine 4 mg tablet 4 mg PO BID 10/17/20 05/08/22 Unknown History albuterol sulfate 90 mcg/actuation 1 inh inhalation Q6H PRN shortness 10/20/20 05/08/22 Unknown Rx aerosol inhaler of breath or wheezing #8.5 grams tenofovir disoproxil fumarate 300 300 mg PO BEDTIME 11/10/20 05/08/22 01/02/22 History mg tablet lamotrigine 200 mg tablet 200 mg PO BEDTIME 02/19/21 05/08/22 01/02/22 History lubiprostone 24 mcg capsule 24 mcg PO BID 02/19/21 05/08/22 01/02/22 History (Amitiza) metoclopramide HCl 10 mg tablet 10 mg PO DAILY PRN Nausea 02/19/21 05/08/22 Unknown History gabapentin 300 mg capsule 300 mg PO BID 08/07/21 05/08/22 01/02/22 History lipase 3,000-protease 1 cap PO TID 08/07/21 05/08/22 01/02/22 History 9,500-amylase 15,000 unit capsule, delayed rel (Creon) naloxone 4 mg/actuation nasal See Rx Instructions .Route 08/08/21 05/08/22 Unknown Rx spray (Narcan) .COMPLEX #1 ea scopolamine base 1 mg over 3 days 1 patch transdermal Q3D 01/05/22 05/08/22 01/04/22 History transdermal patch lactulose 10 gram/15 mL oral 90 ml PO TID 03/15/22 05/08/22 3 Weeks Ago History solution ~04/17/22 see pharmacy comment lisinopril 10 mg tablet 10 mg PO QAM 03/15/22 05/08/22 Unknown History budesonide 160 mcg-glycopyr 9 2 inh inhalation BID #10.7 grams 03/21/22 05/08/22 Unknown Rx mcg-formot 4.8 mcg/actuation HFA inhaler (Breztri Aerosphere) ipratropium 0.5 mg-albuterol 3 mg 3 ml inhalation Q4H PRN wheezing 03/28/22 05/08/22 Unknown Rx (2.5 mg base)/3 mL nebulization #180 mL soln doxepin 10 mg capsule 10 mg PO BEDTIME 05/08/22 05/08/22 Unknown History furosemide 80 mg tablet (Lasix) 80 mg PO TID 05/08/22 05/08/22 Unknown History levofloxacin 750 mg tablet 750 mg PO DAILY 05/08/22 05/08/22 Unknown History morphine 15 mg immediate release 15 mg PO BID PRN Pain 05/08/22 05/08/22 Unknown History tablet oxycodone 30 mg tablet 30 mg PO TID 05/08/22 05/08/22 Unknown History potassium chloride 20 mEq/15 mL 20 meq PO BID 05/08/22 05/08/22 Unknown History oral liquid rifaximin 550 mg tablet (Xifaxan) 550 mg PO BID 05/08/22 05/08/22 Unknown History zinc acetate 50 mg (zinc) capsule 50 mg PO DAILY 05/08/22 05/08/22 Unknown History Allergies Allergy/AdvReac Type Severity Reaction Status Date / Time codeine Allergy Unknown Unknown Verified 05/08/22 08:45 aspirin Allergy ALGY-Hives Verified 05/08/22 08:45 Sulfa (Sulfonamide Allergy ALGY-Swell Verified 05/08/22 08:45 Antibiotics) Lip/Tongue/Throat Current Medications Generic Name Dose Route Start Last Admin Trade Name Freq PRN Reason Stop Dose Admin Albuterol Sulfate 2.5 mg 05/08/22 14:00 05/10/22 01:25 Albuterol 2.5 Mg/3 Ml Neb INHALATION Not Given Q6H.RESP JOJO Budesonide 0.5 mg 05/08/22 08:00 05/09/22 20:45 Budesonide 0.5 Mg/2 Ml Neb INHALATION Not Given BID.RESPIRATORY JOJO Enoxaparin Sodium 40 mg 05/08/22 01:00 05/10/22 00:30 Enoxaparin 40 Mg/0.4 Ml Syringe SUBCUT Not Given Q24H JOJO Furosemide 80 mg 05/08/22 16:00 05/08/22 16:32 Furosemide 40 Mg Tablet PO 80 mg BID@08,16 JOJO Administration Gabapentin 300 mg 05/08/22 09:00 05/09/22 17:36 Gabapentin 300 Mg Capsule PO 300 mg BID JOJO Administration Hydralazine HCl 10 mg 05/08/22 06:13 05/09/22 05:23 Hydralazine 20 Mg/Ml Inj 1 Ml IVP 10 mg Q4H PRN Administration HYPERTENSION Sodium Chloride 1,000 mls @ 125 mls/hr 05/09/22 13:00 05/10/22 05:50 Sodium Chloride 0.9% IV 125 mls/hr .Q8H JOJO Administration Insulin Human Lispro 0 unit 05/08/22 08:00 05/09/22 20:54 Insulin Lispro 100 Unit/1 Ml SUBCUT Not Given WM&BEDTIME JOJO Protocol Ipratropium [place] 0.5 mg 05/08/22 14:00 05/10/22 01:25 Ipratropium 0.5 Mg/2.5 Ml Neb INHALATION Not Given Q6H.RESP JOJO Lactulose 10 gm 05/09/22 05:30 05/10/22 04:33 Lactulose Oral Liq 20 Gm/30 Ml Udc PO Not Given Q6H JOJO Lamotrigine 200 mg 05/08/22 09:00 05/09/22 08:08 Lamotrigine 100 Mg Tablet PO 200 mg DAILY JOJO Administration Levetiracetam 750 mg 05/08/22 09:00 05/09/22 17:36 Levetiracetam 500 Mg Tablet PO 750 mg BID JOJO Administration Levothyroxine Sodium 50 mcg 05/08/22 06:00 05/09/22 05:23 Levothyroxine 50 Mcg Tablet PO 50 mcg QAM JOJO Administration Lisinopril 10 mg 05/08/22 09:00 05/08/22 08:15 Lisinopril 10 Mg Tablet PO 10 mg DAILY JOJO Administration Midodrine 10 mg 05/09/22 00:45 05/09/22 00:55 Midodrine 5 Mg Tablet PO 10 mg ONCE JOJO Administration Oxycodone HCl 15 mg 05/09/22 00:02 05/09/22 21:40 Oxycodone 5 Mg Ir Tab/Cap PO 15 mg Q8H PRN Administration pain Pantoprazole Sodium 40 mg 05/08/22 09:00 05/09/22 08:[address] 40 Mg Tablet PO 40 mg DAILY JOJO Administration Rifaximin 550 mg 05/08/22 18:00 05/09/22 17:36 Rifaximin 550 Mg Tablet PO 550 mg BID [facility] Administration Protocol Spironolactone 25 mg 05/08/22 18:00 05/08/22 17:17 Spironolactone 25 Mg Tablet PO 25 mg BID [facility] Administration Additional Medication Information Current Medications Acetaminophen (Acetaminophen 325 Mg Tablet) 650 mg PO Q6H PRN PRN Reason: MILD PAIN Albuterol Sulfate (Albuterol 2.5 Mg/3 Ml Neb) 2.5 mg INHALATION Q6H.RESP [facility] Last Admin: 05/09/22 09:35 Dose: 2.5 mg Budesonide (Budesonide 0.5 Mg/2 Ml Neb) 0.5 mg INHALATION BID.RESPIRATORY [facility] Last Admin: 05/09/22 09:35 Dose: 0.5 mg Dextrose (Dextrose 50% Syringe 50 Ml) 25 ml IVP ONCE PRN; Protocol PRN Reason: hypoglycemia protocol Dextrose (Dextrose 50% Syringe 50 Ml) 50 ml IVP PRN PRN; Protocol PRN Reason: hypoglycemia protocol Enoxaparin Sodium (Enoxaparin 40 Mg/0.4 Ml Syringe) 40 mg SUBCUT Q24H [facility] Last Admin: 05/08/22 23:28 Dose: 40 mg Furosemide (Furosemide 40 Mg Tablet) 80 mg PO BID@08,16 [facility] Last Admin: 05/08/22 16:32 Dose: 80 mg Gabapentin (Gabapentin 300 Mg Capsule) 300 mg PO BID [facility] Last Admin: 05/09/22 08:08 Dose: 300 mg Glucagon (Glucagon 1 Mg/Ml Inj 1 Ml) 1 mg IM ONCE PRN; Protocol PRN Reason: Adult Acute Hypoglycemia Prot. Hydralazine HCl (Hydralazine 20 Mg/Ml Inj 1 Ml) 10 mg IVP Q4H PRN PRN Reason: HYPERTENSION Last Admin: 05/09/22 05:23 Dose: 10 mg Dextrose (D5w) 500 mls @ 100 mls/hr IV ONCE PRN; Protocol PRN Reason: Adult Acute Hypoglycemia Prot Sodium Chloride (Sodium Chloride 0.9%) 1,000 mls @ 75 mls/hr IV .[id number] [facility] Stop: 05/09/22 14:04 Last Admin: 05/09/22 01:47 Dose: 75 mls/hr Sodium Chloride (Sodium Chloride 0.9%) 1,000 mls @ 999 mls/hr IV .Q1H1M [facility] Stop: 05/09/22 13:53 Last Admin: 05/09/22 13:02 Dose: 999 mls/hr Sodium Chloride (Sodium Chloride 0.9%) 1,000 mls @ 125 mls/hr IV .Q8H [facility] Last Admin: 05/09/22 13:03 Dose: 125 mls/hr Insulin Human Lispro (Insulin Lispro 100 Unit/1 Ml) 0 unit SUBCUT WM&BEDTIME [facility]; Protocol Last Admin: 05/09/22 11:28 Dose: Not Given Ipratropium [place] (Ipratropium 0.5 Mg/2.5 Ml Neb) 0.5 mg INHALATION Q6H.RESP [facility] Last Admin: 05/09/22 09:35 Dose: 0.5 mg Lactulose (Lactulose Oral Liq 20 Gm/30 Ml Udc) 10 gm PO Q6H [facility] Last Admin: 05/09/22 11:34 Dose: 10 gm Lamotrigine (Lamotrigine 100 Mg Tablet) 200 mg PO DAILY [facility] Last Admin: 05/09/22 08:08 Dose: 200 mg Levetiracetam (Levetiracetam 500 Mg Tablet) 750 mg PO BID [facility] Last Admin: 05/09/22 08:08 Dose: 750 mg Levothyroxine Sodium (Levothyroxine 50 Mcg Tablet) 50 mcg PO QAM [facility] Last Admin: 05/09/22 05:23 Dose: 50 mcg Lisinopril (Lisinopril 10 Mg Tablet) 10 mg PO DAILY [facility] Last Admin: 05/08/22 08:15 Dose: 10 mg Midodrine (Midodrine 5 Mg Tablet) 10 mg PO ONCE [facility] Last Admin: 05/09/22 00:55 Dose: 10 mg Midodrine (Midodrine 5 Mg Tablet) 5 mg PO TID PRN PRN Reason: Sbp less than 90 mmhg Ondansetron HCl (Ondansetron 2 Mg/Ml Sdv 2 Ml) 4 mg IVP Q6H PRN PRN Reason: NAUSEA AND VOMITING Oxycodone HCl (Oxycodone 5 Mg Ir Tab/Cap) 15 mg PO Q8H PRN PRN Reason: pain Last Admin: 05/09/22 05:40 Dose: 15 mg Pantoprazole Sodium (Pantoprazole Dr 40 Mg Tablet) 40 mg PO DAILY [facility] Last Admin: 05/09/22 08:08 Dose: 40 mg Rifaximin (Rifaximin 550 Mg Tablet) 550 mg PO BID JOJO; Protocol Last Admin: 05/09/22 08:08 Dose: 550 mg Spironolactone (Spironolactone 25 Mg Tablet) 25 mg PO BID JOJO Last Admin: 05/08/22 17:17 Dose: 25 mg PFSH Anesthesia Medical History Accidental fentanyl overdose Bilateral pulmonary embolism Cardiac arrest Chronic abdominal pain Chronic hepatitis B Chronic hip pain Cirrhosis COPD (chronic obstructive pulmonary disease) Chronically on 3 L of oxygen Diabetes mellitus Encephalopathy Gastroesophageal reflux GI bleeding Hepatitis B Hypertension Hypothyroidism Leg cramps Overdose Pelvic inflammatory disease Stomach cancer Thrombocytopenia Tobacco dependency Surgical History H/O tubal ligation History of hysterectomy History of laparotomy History of right hemicolectomy Family History Mother Diabetes Father CAD (coronary artery disease) Other Cancer Social History Smoking and tobacco status: former smoker Quit status (tobacco): has quit using tobacco Year quit tobacco: 2020 Former quit date comment: 2ppd x 26 year Hx Alcohol intake: never Data Anesthesia 05/10/22 02:21 05/10/22 02:21 Short CBC 05/08/22 05/10/22 Range/Units 22:52 02:21 WBC 8.6 5.5 (4.0-10.0) 10^3/uL Hgb 14.9 12.5 (11.5-15.3) g/dL Hct 44.3 37.7 (37.0-47.0) % MCV 90.0 92.0 (81-99) fl Plt Count 290 D 160 D (130-400) 10^3/cmm Neut % (Auto) 44.8 45.5 % Neut # (Auto) 3.83 2.48 (1.8-7.7) 10^3/uL BMP 05/08/22 05/08/22 05/08/22 05:17 17:30 22:52 Sodium Cancelled Potassium 2.8 L* D 3.9 Cancelled Chloride Cancelled Carbon Dioxide Cancelled BUN Cancelled Creatinine Cancelled Glucose 116 H Cancelled Calcium 8.3 L Cancelled 05/08/22 05/09/22 05/10/22 23:42 00:20 02:21 Sodium Cancelled 135 L 136 Potassium Cancelled 3.7 3.5 Chloride Cancelled 99 105 Carbon Dioxide Cancelled 20 L 20 L BUN Cancelled 9 11 Creatinine Cancelled 0.8 0.8 Glucose Cancelled 97 105 Calcium Cancelled 9.4 8.3 L Cardiac Enzymes 05/08/22 05/08/22 05/08/22 Range/Units 05:17 22:52 23:42 Troponin T Baseline Cancelled Cancelled Troponin T 120 Minute (0-10) ng/L Delta Troponin T (0-10) ABS# Troponin T Hi Sens 6Hr 10.88 H (0-10) ng/L Troponin T Hi Sens 6Hr Delta 1.88 (0-12) ng/L 05/09/22 05/09/22 05/09/22 Range/Units 00:20 03:20 06:07 Troponin T Baseline 15 H Troponin T 120 Minute 13.95 H (0-10) ng/L Delta Troponin T -1.05 L (0-10) ABS# Troponin T Hi Sens 6Hr 13.59 H (0-10) ng/L Troponin T Hi Sens 6Hr Delta -1.41 L (0-12) ng/L Liver Function 05/08/22 05/08/22 05/09/22 Range/Units 22:52 23:42 00:20 Total Bilirubin Cancelled Cancelled 0.9 AST Cancelled Cancelled 31 ALT Cancelled Cancelled 13 Alkaline Phosphatase Cancelled Cancelled 107 H Albumin Cancelled Cancelled 3.4 L 05/10/22 Range/Units 02:21 Total Bilirubin 0.6 AST 21 ALT 8 Alkaline Phosphatase 86 Albumin 2.8 L Coags 05/09/22 09:49 PT 15.10 H INR 1.16 ABG 05/08/22 22:34 Specimen Type Arterial Sample Site Right radial ABG pH 7.45 ABG pCO2 30.9 L ABG pO2 77.0 L ABG HCO3 21.6 L ABG O2 Saturation 94.9 ABG Base Excess -1.2 O2 Delivery Device Nc O2 Liters/Min 4.0 Cardiac Studies: Echocardiogram 05/08/22
--- NOTE | 2022-05-10 08:01 | PC.NURSE ---
To cardiac cath tech at 0800 via bed accompanied by cardiac cath tech team. AAOx4, VSS
--- NOTE | 2022-05-10 08:22 | W.PM.OPSUD ---
Surgery/Procedure H&P Update DATE OF PROCEDURE: May 10, 2022 DATE H&P PERFORMED: 05/08/22 H&P UPDATE INFORMATION: I have reviewed H&P completed within last 30 days, I have examined patient prior to procedure and No changes to prior documentation PREOP DIAGNOSIS: sinus node dysfunction, symptomatic bradycardia PRIMARY INDICATION FOR PROCEDURE: Near syncope/sinus bradycardia/prolonged sinus pauses PLANNED PROCEDURE: Operation Date: 05/10/22 08:30 Proposed Procedures p Pacemaker Insertion(Left) - Suzy Wyman MD IV sedation is administered by anesthesia service PATIENT REASSESSED PRIOR TO SEDATION, WITH NO CHANGE NOTED: Yes
--- NOTE | 2022-05-10 10:25 | P.OP_ITS ---
Operative Report Date of procedure: May 10, 2022 Pre-op diagnosis: Preop Diagnosis sinus node dysfunction, symptomatic bradycardia Procedure: LOCATION: Cardiac catheterization lab PREOPERATIVE DIAGNOSES: Symptomatic bradycardia/sinus node dysfunction. POSTOPERATIVE DIAGNOSES: Same. COMPLICATIONS: None. ESTIMATED BLOOD LOSS: None BRIEF HISTORY: This is a 46-year-old white female, admitted to hospital with complaints of bradycardia with a heart rate in the 30s and 40s and a passing out spell at home. While being in the hospital, she had another near syncopal episode, telemetry showing prolonged pauses of up to 7 seconds. Also had episodes of sinus bradycardia with a heart rate in the 30s and 40s. For further management of her condition she requires a permanent pacemaker implantation. A dual chamber permanent pacemaker implantation was recommended for AV synchrony and symptom relief The procedure was explained to the patient in detail with the risks and benefits. The risks of bleeding, hematoma, vascular injury, infection, pneumothorax, myocardial perforation and other concomitant complications were explained in detail, which the patient understood well and consented to proceed. PROCEDURE DESCRIPTION: The patient was brought to the Cardiac Catheterization Lab. The left and the right side of the neck and the subclavian area were cleaned and draped in a sterile fashion. 1% Xylocaine was used as the local anesthetic agent. [Left] subclavian venogram was performed by injecting 20 milliliters of Omnipaque through the left antecubital vein. A [left] subclavian venous access was obtained using a micropuncture needle system, under venographic guidance. . A two-inch long incision was made 2.0 centimeters below the midclavicular region. By sharp and blunt dissection, a pacemaker pocket was made. A second venous access was obtained using another micropuncture needle system. Over the first guidewire, a 7-Gabonese venous sheath with dilator was advanced. The venous dilator and the guidewire were taken out. A screw-in ventricular lead was advanced through the venous sheath and was positioned towa rds the right ventricle. Under fluoroscopic guidance, the ventricular lead was positioned toward the right ventricular apex. Good pacing and sensing thresholds were obtained. The lead was secured to the endocardium by advancing the helix. The stability of the lead was tested by gentle twisting movements and also by asking the patient to take some deep breaths and cough. The venous sheath was peeled off, at this time. The lead was secured to the pectoralis fascia, by suturing with 1-0 Surgilon. Over the second guidewire, another 7-Gabonese venous sheath with dilator was advanced. The dilator and the guidewire were taken out. Under fluoroscopic guidance, an atrial lead (Medtronic), was advanced and positioned toward the right atrium. The lead was positioned in the right atrial appendage. Good pacing and sensing thresholds were obtained. The lead was secured to the endocardium by advancing the helix. Stability of the lead was tested by gentle twisting movements and also by asking the patient to take some deep breaths and cough. The venous sheath was peeled off, at this time. The lead was secured to the pectoralis fascia by suturing with 0-Surgilon. The pacemaker pocket was copiously irrigated with vancomycin solution. Complete hemostasis was achieved. Sponge counts were confirmed. The leads were attached to a Medtronic generator. The leads were positioned behind the generator and the generator was attached to the pectoralis fascia by suturing with 0-Surgilon. The pocket was closed in layers. Skin was approximated using 4-0 Vicryl. IMPLANTED DEVICES: ATRIAL LEAD: Model number: 5076/52 Serial number: [id number], MR conditional Make: Medtronic VENTRICULAR LEAD: Model number: 5076/58 Serial number: [id number] Make: Medtronic GENERATOR Brand: Yaritza XT DR MRI Surescan Model number: W1 DR 01 Serial number: [id number] Make: Medtronic IMPLANTATION DATA: With the pacing system analyzer, the R wave sensing was 18-20 millivolts with a lead impedance of 969 ohms and a pacing threshold was 0.8 volts at 0.4 milliseconds. In the atrium, the sensing was 1.3 millivolts with a lead impedance of 646 ohms and a pacing threshold was 0.75 volts at 0.4 milliseconds. Through the device, the R-wave sensing was 19 millivolts with a lead impedance of 885 and a pacing threshold was 0.75 volts at 0.4 milliseconds. The atrial sensing was 1.6 millivolts with a lead impedance of 665 ohms and a pacing threshold of 0.5 volts at 0.4 milliseconds. The pacemaker was set for AAIR/DDDR mode with upper rate of 140 and a lower rate of 60. A pressure dressing was applied over the pacemaker site. The patient was transferred to the Medical Floor in stable condition. A chest x-ray was ordered to confirm the lead position and also to rule out any pneumothorax.
[2022-05-10] MEDS: levETIRAcetam 500 mg Tablet 750 MG PO ×2 (10:30→21:32)
[2022-05-10] MEDS: gabapentin 300 mg Capsule PO ×2 (10:32→17:36)
[2022-05-10] MEDS: oxyCODONE 5 mg IR Tab/Cap 15 MG PO (10:32)
[2022-05-10] MEDS: lamoTRIgine 100 mg Tablet 200 MG PO (10:34)
[2022-05-10] MEDS: pantoprazole DR 40 mg Tablet PO (10:35)
--- NOTE | 2022-05-10 10:36 | P.PN_ITS ---
Subjective Subjective: Maribell reports she is doing okay. She was awaiting her pacemaker when I saw her this morning. She did not complain of pain when I saw her. She had had no syncopal events last night. Medications: Reviewed: Yes Vitals/I&O/Wt Last Vital Signs Temp 96.8 F L 05/08/22 19:59 Pulse 81 05/10/22 07:30 Resp 16 05/10/22 10:32 BP 149/93 05/10/22 08:00 Pulse Ox 99 05/10/22 10:32 O2 Del Method 05/10/22 07:30 O2 Flow Rate 3 05/10/22 07:30 FiO2 3 05/10/22 04:00 05/09/22 05/10/22 05/10/22 22:59 06:59 14:59 Intake Total 2590 / 3940 1000 / 4940 0 / 0 Output Total 1200 / 3950 600 / 4550 Balance 1390 / -10 400 / 390 0 / 0 Weight last 48 hrs Weight 109.769 kg Weight 109.5 kg Physical Exam Narrative: General exam is a white female, no distress. Telemetry showing heart rate of 80, sinus. Conversive, alert, oriented Neck is supple no lymphadenopathy thyromegaly Cardiovascular bradycardic, no murmur Lungs clear no wheezing or crackles Abdomen positive bowel sounds. No significant tenderness currently Extremities no cyanosis clubbing or edema, cap refill brisk Skin no rash Neuro no obvious focal deficits Urinary Catheter Management: Ferro: Cath Placed During This Visit: yes Reason for Continuing Indwelling Catheter: Accurate Measurement of Urinary Output in Critically Ill Patients Urinary Catheter Date of Insertion: 05/08/22 Urinary Catheter Time of Insertion: 23:45 Data 05/10/22 02:21 05/10/22 02:21 A&P Assessment and plan (1) Symptomatic bradycardia: Etiology unclear Associated with syncope Significant pause noted on telemetry Pacemaker today. I also discussed with her indications and risk Electrolytes have been corrected TSH normal Appreciate cardiology consultation Holding Lasix and Aldactone currently (2) COPD (chronic obstructive pulmonary disease): DuoNeb every 6 hours Budesonide twice daily. No evidence of exacerbation currently. Qualifiers: COPD type: unspecified COPD Qualified Code(s): J44.9 - Chronic obstruc tive pulmonary disease, unspecified (3) Hypomagnesemia: Supplemented and normal today (4) Diabetes mellitus: Sliding scale insulin (5) Chronic abdominal pain: Continue chronic pain medications. Morphine has been discontinued (6) Hypothyroidism: TSH was normal (7) Tobacco dependency: Encourage abstinence Plan Probable orthostatic hypotension. Lasix held. Lisinopril, Aldactone discontinued. Midodrine ordered as needed. Appears improved Borderline hypokalemia. Supplement today History of cirrhosis. Continue rifaximin. Change lactulose dose to twice daily, facilitating more home dosing regimen Polypharmacy, multiple medications reduced Multiple other medical problems as outlined in past medical history Attestations Medical Necessity Statement*: Needs continued hospitalization for close monitoring following pacemaker placement Diagnoses Symptomatic bradycardia R00.1 COPD (chronic obstructive pulmonary disease) J44.9 COPD type: unspecified COPD Hypomagnesemia E83.42 Diabetes mellitus E11.9 Chronic abdominal pain R10.9; G89.29 Hypothyroidism E03.9 Tobacco dependency F17.200 Time Spent (min) 21
[2022-05-10] MEDS: dextrose 5%-sod chloride 0.45% 1,000 ML 75 ML IV (10:45)
--- NOTE | 2022-05-10 10:46 | PC.NURSE ---
Back to room at 1022, AAOx4, Pain to incision site 12/26, patient crying. Verbal order 2 mg morphine IVP x 1
[2022-05-10] MEDS: ondansetron 2 mg/ML SDV 2 mL 4 MG IVP ×2 (10:50→14:36)
[2022-05-10] MEDS: morphine 4 mg/mL SDV 1 mL 2 MG IVP (10:50)
[2022-05-10] MEDS: HYDROmorphone 1 mg/mL INJ 1 mL IVP ×3 (12:06→18:48)
--- NOTE | 2022-05-10 12:26 | P.SS_ITS ---
Short Stay Summary Providers Date of Admit/Discharge: 05/10/22 Attending Provider: Derek Scott MD Primary Care Provider: Francisco Mckinley DO Chief Complaint: symptomatic bradycardia HPI History of Present Illness Maribell Foreman is a 46 year old female Home Meds/Allergies Home Medications and Allergies Home Medications Medication Instructions Recorded Confirmed Type insulin glargine 100 unit/mL See Rx Instructions .Route .COMPLEX 10/17/20 05/08/22 History subcutaneous solution (Lantus U-100 Insulin) levetiracetam 750 mg tablet 750 mg PO BID 10/17/20 05/08/22 History pantoprazole 40 mg tablet,delayed 40 - 80 mg PO DAILY PRN Acid Reflux 10/17/20 05/08/22 History release spironolactone 25 mg tablet 25 mg PO BID 10/17/20 05/08/22 History sumatriptan succinate 50 mg tablet 50 mg PO Q2H PRN Migraine Headache 10/17/20 05/08/22 History (Imitrex) tizanidine 4 mg tablet 4 mg PO BID 10/17/20 05/08/22 History tenofovir disoproxil fumarate 300 300 mg PO BEDTIME 11/10/20 05/08/22 History mg tablet lamotrigine 200 mg tablet 200 mg PO BEDTIME 02/19/21 05/08/22 History lubiprostone 24 mcg capsule 24 mcg PO BID 02/19/21 05/08/22 History (Amitiza) metoclopramide HCl 10 mg tablet 10 mg PO DAILY PRN Nausea 02/19/21 05/08/22 History gabapentin 300 mg capsule 300 mg PO BID 08/07/21 05/08/22 History lipase 3,000-protease 1 cap PO TID 08/07/21 05/08/22 History 9,500-amylase 15,000 unit capsule, delayed rel (Creon) scopolamine base 1 mg over 3 days 1 patch transdermal Q3D 01/05/22 05/08/22 History transdermal patch lactulose 10 gram/15 mL oral 90 ml PO TID 03/15/22 05/08/22 History solution lisinopril 10 mg tablet 10 mg PO QAM 03/15/22 05/08/22 History doxepin 10 mg capsule 10 mg PO BEDTIME 05/08/22 05/08/22 History furosemide 80 mg tablet (Lasix) 80 mg PO TID 05/08/22 05/08/22 History levofloxacin 750 mg tablet 750 mg PO DAILY 05/08/22 05/08/22 History morphine 15 mg immediate release 15 mg PO BID PRN Pain 05/08/22 05/08/22 History tablet oxycodone 30 mg tablet 30 mg PO TID 05/08/22 05/08/22 History potassium chloride 20 mEq/15 mL 20 meq PO BID 05/08/22 05/08/22 History oral liquid rifaximin 550 mg tablet (Xifaxan) 550 mg PO BID 05/08/22 05/08/22 History zinc acetate 50 mg (zinc) capsule 50 mg PO DAILY 05/08/22 05/08/22 History Allergies Allergy/AdvReac Type Severity Reaction Status Date / Time codeine Allergy Unknown Unknown Verified 05/08/22 08:45 aspirin Allergy ALGY-Hives Verified 05/08/22 08:45 Sulfa (Sulfonamide Allergy ALGY-Swell Verified 05/08/22 08:45 Antibiotics) Lip/Tongue/Throat PFSH Acute PFSH: Medical History Accidental fentanyl overdose Bilateral pulmonary embolism Cardiac arrest Chronic abdominal pain Chronic hepatitis B Chronic hip pain Cirrhosis COPD (chronic obstructive pulmonary disease) Chronically on 3 L of oxygen Diabetes mellitus Encephalopathy Gastroesophageal reflux GI bleeding Hepatitis B Hypertension Hypothyroidism Leg cramps Overdose Pelvic inflammatory disease Stomach cancer Thrombocytopenia Tobacco dependency Surgical History H/O tubal ligation History of hysterectomy History of laparotomy History of right hemicolectomy Family History Mother Diabetes Father CAD (coronary artery disease) Other Cancer Social History Smoking and tobacco status: former smoker Quit status (tobacco): has quit using tobacco Year quit tobacco: 2020 Former quit date comment: 2ppd x 26 year Hx Alcohol intake: never Vitals/I&O/Wt Last Vital Signs Temp 96.8 F L 05/08/22 19:59 Pulse 117 H 05/10/22 10:45 Resp 16 05/10/22 12:06 BP 129/90 05/10/22 10:45 Pulse Ox 95 05/10/22 12:06 O2 Del Method 05/10/22 10:45 O2 Flow Rate 3 05/10/22 11:12 FiO2 3 05/10/22 04:00 05/09/22 05/10/22 05/10/22 22:59 06:59 14:59 Intake Total 2590 / 3940 1000 / 4940 1000 / 1000 Output Total 1200 / 3950 600 / 4550 100 / 100 Balance 1390 / -10 400 / 390 900 / 900 Weight last 48 hrs Weight 242 lb Weight 241 lb 6.499 oz Physical Exam Urinary Catheter Management: Ferro: Cath Placed During This Visit: yes Reason for Continuing Indwelling Catheter: Accurate Measurement of Urinary Output in Critically Ill Patients Urinary Catheter Date of Insertion: 05/08/22 Urinary Catheter Time of Insertion: 23:45 SSS Data Data Completed and Pending: Completed Studies During Hospitalization Category Date Time Status CT abdomen pelvis w con* [id number] Urge nt Cat Scan 05/08/22 08:08 Completed XR abdomen 1V* [id number] [id number] Routine Exams 05/08/22 00:56 Completed XR chest 1V becca ble [id number] Stat Exams 05/07/22 21:32 Completed CV. echo complete * [id number] Routine Ultrasound 05/08/22 00:52 Completed Pending at discharge Category Date Time Status CONSULTING PSYCHIATRIST request for service Routin e Exams 05/10/22 08:00 Ordered Arterial Blood Ga s Full Stat Lab 05/08/22 22:34 Results BMP [Basic [employer] lic Panel] AM [facility] Lab 05/11/22 04:00 Ordered CBC Auto Diff [Co mplete Blood Count w/Auto] AM LAB[facility] Lab 05/11/22 04:00 Ordered Magnesium AM LABS Lab 05/11/22 04:00 Ordered Diagnoses at Discharge Discharge Diagnosis (1) Symptomatic bradycardia: Status: Acute (2) COPD (chronic obstructive pulmonary disease): Status: Acute Qualifiers: COPD type: unspecified COPD Qualified Code(s): J44.9 - Chronic obstructive pulmonary disease, unspecified Permanent problem details: Chronically on 3 L of oxygen (3) Hypomagnesemia: Status: Acute (4) Diabetes mellitus: Status: Acute (5) Chronic abdominal pain: Status: Chronic (6) Hypothyroidism: Status: Acute (7) Tobacco dependency: Status: Acute Discharge Plan Discharge Patient Disposition: Home Condition: Stable Prescriptions: No Action lisinopril 10 mg tablet 10 mg PO QAM levothyroxine 50 mcg tablet 50 mcg PO QAM Qty: 30 0RF Rx Instructions: needs an appt with labs before more refills Garry Aerosphere 160-9-4.8 mcg/actuation HFA aerosol inhaler 2 inh inhalation BID Qty: 10.7 3RF ipratropium-albuterol 0.5 mg-3 mg(2.5 mg base)/3 mL solution for nebulization 3 ml inhalation Q4H PRN (Reason: wheezing) Qty: 180 3RF insulin glargine [Lantus U-100 Insulin] 100 unit/mL solution See Rx Instructions .ROUTE .COMPLEX Rx Instructions: 10 units qam and 40 units bedtime tizanidine 4 mg tablet 4 mg PO BID sumatriptan succinate [Imitrex] 50 mg Tablet 50 mg PO Q2H MDD 2 tabs PRN (Reason: Migraine Headache) spironolactone 25 mg tablet 25 mg PO BID levetiracetam 750 mg tablet 750 mg PO BID pantoprazole 40 mg tablet,delayed release (DR/EC) 40 - 80 mg PO DAILY PRN (Reason: Acid Reflux) albuterol sulfate 90 mcg/actuation HFA aerosol inhaler 1 inh inhalation Q6H PRN (Reason: shortness of breath or wheezing) Qty: 8.5 0RF lactulose 10 gram/15 mL solution 90 ml PO TID tenofovir disoproxil fumarate 300 mg tablet 300 mg PO BEDTIME lamotrigine 200 mg Tablet 200 mg PO BEDTIME metoclopramide HCl 10 mg Tablet 10 mg PO DAILY PRN (Reason: Nausea) lubiprostone [Amitiza] 24 mcg Capsule 24 mcg PO BID gabapentin 300 mg capsule 300 mg PO BID Creon 3,000-9,500- 15,000 unit capsule,delayed release(DR/EC) 1 cap PO TID naloxone [Narcan] 4 mg/actuation spray,non-aerosol See Rx Instructions .ROUTE .COMPLEX Qty: 1 0RF Rx Instructions: as directed intranasally prn scopolamine base 1 mg over 3 days patch 3 day 1 patch transdermal Q3D Lasix 80 mg Tablet 80 mg PO TID zinc acetate 50 mg (zinc) Capsule 50 mg PO DAILY doxepin 10 mg Capsule 10 mg PO BEDTIME potassium chloride 20 mEq/15 mL Liquid 20 meq PO BID oxycodone 30 mg Tablet 30 mg PO TID Rx Instructions: rx filled 05/02/22 7d/s morphine 15 mg Tablet 15 mg PO BID PRN (Reason: Pain) Rx Instructions: 6 tabs must last 2 weeks Xifaxan 550 mg Tablet 550 mg PO BID Levaquin 750 mg Tablet 750 mg PO DAILY Rx Instructions: rx filled 05/01/22 5d/s Coding Level of Care Code Acute Code for g Fwd Diagnoses Symptomatic bradycardia R00.1 COPD (chronic obstructive pulmonary disease) J44.9 COPD type: unspecified COPD Hypomagnesemia E83.42 Diabetes mellitus E11.9 Chronic abdominal pain R10.9; G89.29 Hypothyroidism E03.9 Tobacco dependency F17.200
[2022-05-10] MEDS: levothyroxine 50 mcg Tablet PO (13:43)
--- NOTE | 2022-05-10 15:10 | PC.NURSE ---
Dr. Scott notified of patient generalized pain 12/26. HR 130s, BP 185/85, patient crying/moaning, 95% 3LNC. PRN pain medications given, see MAR.
[2022-05-10] MEDS: LORazepam 2 mg/mL INJ 1 mL 0.5 MG IVP (15:37)
[2022-05-10] MEDS: tizanidine 4 mg Tablet 2 MG PO (16:12)
--- NOTE | 2022-05-10 17:29 | XRR_ITS ---
PROCEDURE INFORMATION: Exam: XR Chest Exam date and time: 05/10/2022 6:17 PM Age: 46 years old Clinical indication: Device placement; Cardiac pacemaker placement or adjustment; Prior surgery; Surgery date: Post-operative (0-2 days); Additional info: Status post permanent pacemaker implantation TECHNIQUE: Imaging protocol: Radiologic exam of the chest. Views: 1 view. COMPARISON: CR (CHEST, ) 05/07/2022 9:59 PM FINDINGS: Tubes, catheters and devices: Pacemaker is seen which appears in place with leads over the right and left heart. Lungs: Unremarkable. No consolidation. Pleural spaces: Unremarkable. No pleural effusion. No pneumothorax. Heart/Mediastinum: Unremarkable. No cardiomegaly. Bones/joints: Unremarkable. XR/XR chest 1V portable [id number] IMPRESSION: Pacemaker is seen which appears in place with leads over the right and left heart.
[2022-05-10] MEDS: oxyCODONE 5 mg IR Tab/Cap PO (17:37)
[2022-05-10] MEDS: ceFAZolin 2,000 MG in sodium chloride 0.9% (plus) 50 ML 100 MG IV (17:37)
[2022-05-10 20:14] LABS: Glucose Point of Care 97 mg/dL (70-110)
[2022-05-10 20:15] LABS: Glucose Point of Care 94 mg/dL (70-110)
[2022-05-10 20:15] LABS: Glucose Point of Care 80 mg/dL (70-110)
[2022-05-11] VITALS (27 sets, daily range): BP systolic 69–169; BP diastolic 41–123; PULSE 70–108; RESP 12–22; TEMP 37.8; O2SAT 88–100
[2022-05-11] MEDS: ceFAZolin 2,000 MG in sodium chloride 0.9% (plus) 50 ML 100 MG IV ×2 (00:20→08:44)
[2022-05-11] MEDS: dextrose 5%-sod chloride 0.45% 1,000 ML 75 ML IV (00:21)
[2022-05-11] MEDS: oxyCODONE 5 mg IR Tab/Cap PO (00:36)
[2022-05-11] MEDS: HYDROmorphone 1 mg/mL INJ 1 mL IVP ×4 (01:20→20:25)
[2022-05-11 03:14] LABS: Basophils % 0.6 %; Eosinophils # 0.1 10^3/uL (0.0-0.8); Eosinophils % 2.3 %; Hematocrit 37.2 % (37.0-47.0); Hemoglobin 12.1 g/dL (11.5-15.3); Lymphocytes # 1.8 10^3/uL (0.8-4.8); Mean Corpuscular HGB Conc 32.5 g/dL (30.0-36.0); Mean Corpuscular Hemoglobin 30.3 pg (28.0-34.0); Mean Platelet Volume 10.5 fL (7.4-10.4); Monocytes # 0.9 10^3/uL (0.2-0.9); Monocytes % 16.6 %; Neutrophils % 46.3 %; Nucleated Red Blood Cells % 0 %; Platelet Count 143 10^3/cmm (130-400); Red Cell Distribution Width 13.2 % (12.1-15.1); White Blood Count 5.2 10^3/uL (4.0-10.0)
[2022-05-11 03:41] LABS: Anion Gap 15.7 (5-19); Blood Urea Nitrogen 9 mg/dL (6-20); Calcium 8.5 mg/dL (8.5-10.5); Carbon Dioxide 22 mmol/L (22-29); Chloride 108 mmol/L (98-107); Glomerular Filtration Rate 76.9 mL/min (90-130); Glucose 123 mg/dL (65-115); Magnesium 1.7 mg/dL (1.7-2.3); Osmolality Calculated 294 mOsm/kg (285-295); Potassium 3.7 mmol/L (3.5-5.1); Sodium 142 mmol/L (136-145)
[2022-05-11] MEDS: levothyroxine 50 mcg Tablet PO (05:19)
--- NOTE | 2022-05-11 05:25 | ECG_ITS ---
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 Measurements Intervals Marshall Rate: 101 P: 63 HI: 167 QRS: 56 QRSD: 105 T: 61 QT: 348 QTc: 451 Interpretive Statements SINUS TACHYCARDIA POSSIBLE LEFT ATRIAL ENLARGEMENT [-0.1mV P-WAVE IN V1/V2] NONSPECIFIC T-WAVE ABNORMALITY ABNORMAL RHYTHM ECG Compared to ECG 05/09/2022 03:22:39 T-wave abnormality now present Sinus rhythm no longer present Electronically Signed On 05-11-2022 22:27:41 [employer] by Suzy Wyman M.D. [id number]
--- NOTE | 2022-05-11 07:41 | PM.PN ---
Subjective Subjective: She reports her pain is significant in her left shoulder area. It is slightly better. She is worried about what pain medicine she is going to be getting and when. Medications: Reviewed: Yes Vitals/I&O/Wt Last Vital Signs Temp 98.7 F 05/10/22 19:00 Pulse 105 H 05/11/22 05:55 Resp 19 H 05/11/22 05:19 BP 169/100 05/11/22 04:00 Pulse Ox 93 05/11/22 05:19 O2 Del Method 05/10/22 20:00 O2 Flow Rate 2 05/10/22 20:00 FiO2 3 05/10/22 04:00 05/10/22 05/11/22 05/11/22 22:59 06:59 14:59 Intake Total 1410 / 2440 1050 / 3490 Output Total 1200 / 1300 850 / 2150 Balance 210 / 1140 200 / 1340 Weight last 48 hrs Weight 112.283 kg Weight 109.769 kg Physical Exam Narrative: General exam is a white female, no distress. Telemetry shows slight tachycardia Neck is supple no lymphadenopathy thyromegaly Cardiovascular bradycardic, no murmur, large dressing left chest Lungs clear no wheezing or crackles Abdomen positive bowel sounds. No significant tenderness currently Extremities no cyanosis clubbing or edema, cap refill brisk Skin no rash Neuro no obvious focal deficits Urinary Catheter Management: Ferro: Cath Placed During This Visit: yes Reason for Continuing Indwelling Catheter: Accurate Measurement of Urinary Output in Critically Ill Patients Urinary Catheter Date of Insertion: 05/08/22 Urinary Catheter Time of Insertion: 23:45 Data 05/11/22 02:53 05/11/22 02:53 A&P Assessment and plan (1) Symptomatic bradycardia: Etiology unclear Associated with syncope Significant pause noted on telemetry She is postoperative day #1 status post pacemaker placement Electrolytes have been corrected TSH normal Appreciate cardiology consultation Holding Lasix and Aldactone currently Stable for transfer to [facility] (2) COPD (chronic obstructive pulmonary disease): DuoNeb every 6 hours Budesonide twice daily. No evidence of exacerbation currently. Qualifiers: COPD type: unspecified COPD Qualified Code(s): J44.9 - Chronic obstructive pulmonary disease, unspecified (3) Hypomagnesemia: Supplemented and normal today (4) Diabetes mellitus: Sliding scale insulin (5) Chronic abdominal pain: She is now having left sided pain in the region of the pacemaker as well. We will increase her OxyContin. Reduce Dilaudid interval. (6) Hypothyroidism: TSH was normal (7) Tobacco dependency: Encourage abstinence Plan Probable orthostatic hypotension. Hopefully this is resolved. Discontinue fluids. Monitor for any symptoms. Still holding Lasix, Aldactone. History of hypertension. Blood pressure has been quite variable. Holding lisinopril currently but may need to restart. Borderline hypokalemia. Supplement today History of cirrhosis. Continue rifaximin. Change lactulose dose to twice daily, facilitating more home dosing regimen Polypharmacy, multiple medications reduced Multiple other medical problems as outlined in past medical history Attestations Medical Necessity Statement*: Needs continued hospitalization for adjustment of pain medication, close monitoring of blood pressures pending potential discharge tomorrow. Coding Level of Care Code Acute Code for Chg Fwd Diagnoses Symptomatic bradycardia R00.1 COPD (chronic obstructive pulmonary disease) J44.9 COPD type: unspecified COPD Hypomagnesemia E83.42 Diabetes mellitus E11.9 Chronic abdominal pain R10.9; G89.29 Hypothyroidism E03.9 Tobacco dependency F17.200
[2022-05-11 08:03] LABS: Glucose Point of Care 104 mg/dL (70-110)
[2022-05-11] MEDS: enoxaparin 40 mg/0.4 mL Syringe SUBCUT (08:43)
[2022-05-11] MEDS: oxyCODONE IR 30 mg Tablet PO ×3 (08:45→23:54)
[2022-05-11] MEDS: metoprolol tartrate 25 mg Tablet 12.5 MG PO ×2 (08:45→20:27)
[2022-05-11] MEDS: gabapentin 300 mg Capsule PO ×2 (08:45→17:34)
[2022-05-11] MEDS: levETIRAcetam 500 mg Tablet 750 MG PO ×2 (08:46→17:34)
[2022-05-11] MEDS: pantoprazole DR 40 mg Tablet PO (08:46)
[2022-05-11] MEDS: lamoTRIgine 100 mg Tablet 200 MG PO (08:46)
--- NOTE | 2022-05-11 09:55 | PM.PN ---
Subjective Subjective: Patient had the dual-chamber permanent pacemaker implantation yesterday. She has no hematoma bleeding at the insertion site. Pacemaker was interrogated this morning and was found to be functioning okay. Her blood pressure has been fluctuating and seems to be going up when she is anxious and nervous. No fever or chills. No cough. Medications: Medication Review Details: Current Medications Acetaminophen (Acetaminophen 325 Mg Tablet) 650 mg PO Q6H PRN PRN Reason: MILD PAIN Albuterol Sulfate (Albuterol 2.5 Mg/3 Ml Neb) 2.5 mg INHALATION Q6H.RESP [facility] Last Admin: 05/11/22 08:46 Dose: Not Given Budesonide (Budesonide 0.5 Mg/2 Ml Neb) 0.5 mg INHALATION BID.RESPIRATORY [facility] Last Admin: 05/11/22 08:46 Dose: Not Given Dextrose (Dextrose 50% Syringe 50 Ml) 25 ml IVP ONCE PRN; Protocol PRN Reason: hypoglycemia protocol Dextrose (Dextrose 50% Syringe 50 Ml) 50 ml IVP PRN PRN; Protocol PRN Reason: hypoglycemia protocol Enoxaparin Sodium (Enoxaparin 40 Mg/0.4 Ml Syringe) 40 mg SUBCUT Q24H [facility] Last Admin: 05/11/22 08:43 Dose: 40 mg Furosemide (Furosemide 40 Mg Tablet) 80 mg PO BID@08,16 [facility] Last Admin: 05/08/22 16:32 Dose: 80 mg Gabapentin (Gabapentin 300 Mg Capsule) 300 mg PO BID [facility] Last Admin: 05/11/22 08:45 Dose: 300 mg Glucagon (Glucagon 1 Mg/Ml Inj 1 Ml) 1 mg IM ONCE PRN; Protocol PRN Reason: Adult Acute Hypoglycemia Prot. Hydromorphone HCl (Hydromorphone 1 Mg/Ml Inj 1 Ml) 1 mg IVP Q8H PRN PRN Reason: SEVERE PAIN (ORAL N/A) Dextrose (D5w) 500 mls @ 100 mls/hr IV ONCE PRN; Protocol PRN Reason: Adult Acute Hypoglycemia Prot Dextrose/Sodium Chloride (Dextrose 5%-Sod Chloride 0.45%) 1,000 mls @ 75 mls/hr IV .[id number] [facility] Last Admin: 05/11/22 00:21 Dose: 75 mls/hr Insulin Human Lispro (Insulin Lispro 100 Unit/1 Ml) 0 unit SUBCUT WM&BEDTIME JOJO; Protocol Last Admin: 05/11/22 07:56 Dose: Not Given Ipratropium [place] (Ipratropium 0.5 Mg/2.5 Ml Neb) 0.5 mg INHALATION Q6H.RESP [facility] Last Admin: 05/11/22 08:46 Dose: Not Given Lactulose (Lactulose Oral Liq 20 Gm/30 Ml Udc) 20 gm PO BID [facility] Last Admin: 05/11/22 08:47 Dose: Not Given Lamotrigine (Lamotrigine 100 Mg Tablet) 200 mg PO DAILY [facility] Last Admin: 05/11/22 08:46 Dose: 200 mg Levetiracetam (Levetiracetam 500 Mg Tablet) 750 mg PO BID [facility] Last Admin: 05/11/22 08:46 Dose: 750 mg Levothyroxine Sodium (Levothyroxine 50 Mcg Tablet) 50 mcg PO QAM [facility] Last Admin: 05/11/22 05:19 Dose: 50 mcg Lisinopril (Lisinopril 10 Mg Tablet) 10 mg PO DAILY [facility] Last Admin: 05/08/22 08:15 Dose: 10 mg Metoprolol Tartrate (Metoprolol Tartrate 25 Mg Tablet) 12.5 mg PO BID@0900,2100 [facility] Last Admin: 05/11/22 08:45 Dose: 12.5 mg Ondansetron HCl (Ondansetron 2 Mg/Ml Sdv 2 Ml) 4 mg IVP Q6H PRN PRN Reason: NAUSEA AND VOMITING Last Admin: 05/10/22 14:36 Dose: 4 mg Oxycodone HCl (Oxycodone Ir 30 Mg Tablet) 30 mg PO Q4H PRN PRN Reason: SEVERE PAIN Last Admin: 05/11/22 08:45 Dose: 30 mg Pantoprazole Sodium (Pantoprazole Dr 40 Mg Tablet) 40 mg PO DAILY [facility] Last Admin: 05/11/22 08:46 Dose: 40 mg Rifaximin (Rifaximin 550 Mg Tablet) 550 mg PO BID [facility]; Protocol Last Admin: 05/11/22 08:48 Dose: Not Given Spironolactone (Spironolactone 25 Mg Tablet) 25 mg PO BID [facility] Last Admin: 05/08/22 17:17 Dose: 25 mg Tizanidine HCl (Tizanidine 4 Mg Tablet) 4 mg PO BID PRN PRN Reason: SPASMS Vitals/I&O/Wt Last Vital Signs Temp 98.7 F 05/10/22 19:00 Pulse 101 H 05/11/22 08:00 Resp 16 05/11/22 08:45 BP 169/100 05/11/22 04:00 Pulse Ox 97 05/11/22 08:45 O2 Del Method 05/11/22 08:00 O2 Flow Rate 2 05/11/22 08:00 FiO2 3 05/10/22 04:00 05/10/22 05/11/22 05/11/22 22:59 06:59 14:59 Intake Total 1410 / 2440 1050 / 3490 Output Total 1200 / 1300 850 / 2150 Balance 210 / 1140 200 / 1340 Weight last 48 hrs Weight 247 lb 8.668 oz Weight 242 lb Physical Exam Narrative: GENERAL: The patient is alert and oriented times three. Not in any acute distress. Continues to complain of pain at the laparotomy scar and also in the pacemaker insertion site. HEENT: No significant pallor, icterus or lymphadenopathy.Oral cavity: There are no mucous membrane lesions. NECK: Trachea appears to be central. No masses noted. No JVD or thyromegaly appreciated. RESPIRATORY: Chest is symmetrical. No intercostals muscle retraction or any accessory muscle activation. There is no chest wall tenderness. Breath sounds are heard bilaterally. No rales or rhonchi heard. No evidence of any consolidation. No hematoma or bleeding at the pacemaker insertion site BREASTS: Deferred. HEART: The heart sounds are normal. No S3 or S4. No significant murmurs. No pericardial rub ABDOMEN: Diffuse tenderness. No organomegaly appreciated. Bowel sounds are normally heard. : Deferred. RECTAL: Deferred. LYMPHATIC: No lymphadenopathy noted in the neck. EXTREMITIES: No edema or cyanosis. No clubbing. MUSCULOSKELETAL: No acute joint deformities or swelling SKIN: There are no significant rashes or ecchymosis NEUROPSYCHIATRIC: The patient is alert and oriented x3. Appears to be in a good mood. No tremors or rigidity noted. Urinary Catheter Management: Ferro: Cath Placed During This Visit: yes Reason for Continuing Indwelling Catheter: Accurate Measurement of Urinary Output in Critically Ill Patients Urinary Catheter Date of Insertion: 05/08/22 Urinary Catheter Time of Insertion: 23:45 Data 05/11/22 02:53 05/11/22 02:53 Other Labs: Laboratory Last Values WBC 5.2 10^3/uL (4.0-10.0) 05/11/22 02:53 RBC 4.00 10^6/uL (4.1-5.3) L 05/11/22 02:53 Hgb 12.1 g/dL (11.5-15.3) 05/11/22 02:53 Hct 37.2 % (37.0-47.0) 05/11/22 02:53 MCV 93.0 fl (81-99) 05/11/22 02:53 MCH 30.3 pg (28.0-34.0) 05/11/22 02:53 MCHC 32.5 g/dL (30.0-36.0) 05/11/22 02:53 RDW 13.2 % (12.1-15.1) 05/11/22 02:53 Plt Count 143 10^3/cmm (130-400) 05/11/22 02:53 MPV 10.5 fL (7.4-10.4) H 05/11/22 02:53 Neut % (Auto) 46.3 % 05/11/22 02:53 Lymph % (Auto) 34.0 % 05/11/22 02:53 [place] % (Auto) 16.6 % 05/11/22 02:53 Eos % (Auto) 2.3 % 05/11/22 02:53 Baso % (Auto) 0.6 % 05/11/22 02:53 Neut # (Auto) 2.40 10^3/uL (1.8-7.7) 05/11/22 02:53 Lymph # (Auto) 1.8 10^3/uL (0.8-4.8) 05/11/22 02:53 [place] # (Auto) 0.9 10^3/uL (0.2-0.9) 05/11/22 02:53 Eos # (Auto) 0.1 10^3/uL (0.0-0.8) 05/11/22 02:53 Baso # (Auto) 0.0 10^3/uL (0.0-0.1) 05/11/22 02:53 Nucleated RBC % (auto) 0 % 05/11/22 02:53 Nucleated RBCs # 0.0 /100WBC 05/11/22 02:53 PT 15.10 SECONDS (12.1-14.9) H 05/09/22 09:49 INR 1.16 (0.8-1.2) 05/09/22 09:49 Specimen Type Arterial 05/08/22 22:34 Sample Site Right radial 05/08/22 22:34 ABG pH 7.45 (7.35-7.45) 05/08/22 22:34 ABG pCO2 30.9 mmHg (35-45) L 05/08/22 22:34 ABG pO2 77.0 mmHg (80.0-100.0) L 05/08/22 22:34 ABG HCO3 21.6 mmol/L (22-26) L 05/08/22 22:34 ABG O2 Saturation 94.9 05/08/22 22:34 ABG Base Excess -1.2 mmol/L (-2.0-2.0) 05/08/22 22:34 Dusty Test Pos 05/08/22 22:34 Sodium 137.0 mmol/L (131-143) 05/08/22 22:34 Potassium 3.9 mmol/L (3.5-5.0) 05/08/22 22:34 O2 Delivery Device Nc 05/08/22 22:34 O2 Liters/Min 4.0 % 05/08/22 22:34 Specimen Drawn By Kanol 05/08/22 22:34 Sodium 142 mmol/L (136-145) 05/11/22 02:53 Potassium 3.7 mmol/L (3.5-5.1) 05/11/22 02:53 Chloride 108 mmol/L (98-107) H 05/11/22 02:53 Carbon Dioxide 22 mmol/L (22-29) 05/11/22 02:53 Anion Gap 15.7 (5-19) 05/11/22 02:53 BUN 9 mg/dL (6-20) 05/11/22 02:53 Creatinine 0.8 mg/dL (0.5-0.9) 05/11/22 02:53 GFR Calculation 76.9 mL/min (90-130) L 05/11/22 02:53 Glucose 123 mg/dL (65-115) H 05/11/22 02:53 POC Glucose 104 mg/dL (70-110) 05/11/22 07:42 Calculated Osmolality 294 mOsm/kg (285-295) 05/11/22 02:53 Lactate 2.1 mmol/L (0.5-2.2) 05/07/22 21:40 Calcium 8.5 mg/dL (8.5-10.5) 05/11/22 02:53 Magnesium 1.7 mg/dL (1.7-2.3) 05/11/22 02:53 Total Bilirubin 0.6 mg/dL (0.15-1.2) 05/10/22 02:21 AST 21 U/L (0-32) 05/10/22 02:21 ALT 8 U/L (0-33) 05/10/22 02:21 Alkaline Phosphatase 86 U/L (35-105) 05/10/22 02:21 Ammonia 88 umol/L (11-51) H 05/09/22 03:20 Troponin T Baseline 15 ng/L (0-10) H 05/09/22 00:20 Troponin T 120 Minute 13.95 ng/L (0-10) H 05/09/22 03:20 Delta Troponin T -1.05 ABS# (0-10) L 05/09/22 03:20 Troponin T Hi Sens 6Hr 13.59 ng/L (0-10) H 05/09/22 06:07 Troponin T Hi Sens 6Hr Delta -1.41 ng/L (0-12) L 05/09/22 06:07 NT-Pro-B Natriuret Pep 847 pg/mL (0-125) H 05/07/22 21:40 Total Protein 6.2 g/dL (6.6-8.7) L 05/10/22 02:21 Albumin 2.8 g/dL (3.5-5.2) L 05/10/22 02:21 Globulin 3.4 g/dL (1.3-4.6) 05/10/22 02:21 Lipase 14 U/L (13-60) 05/08/22 05:17 TSH 0.60 uIU/mL (0.27-4.20) 05/07/22 21:40 Urine Color Yellow (Yellow) 05/08/22 00:04 Urine Appearance Hazy (CLEAR) A 05/08/22 00:04 Urine pH 8 (5-7) H 05/08/22 00:04 Ur Specific [place] 1.015 (1.005-1.030) 05/08/22 00:04 Urine Protein Neg (Negative) 05/08/22 00:04 Urine Glucose (UA) Norm (Normal) 05/08/22 00:04 Urine Ketones Negative (Negative) 05/08/22 00:04 Urine Blood Neg (Negative) 05/08/22 00:04 Urine Nitrate Negative (Negative) 05/08/22 00:04 Urine Bilirubin Neg (Negative) 05/08/22 00:04 Prot Sulfosalicylic Acd Negative (Negative) 05/08/22 00:04 Urine Urobilinogen 8 mg/dL (Negative) H 05/08/22 00:04 Ur Leukocyte Esterase Negative (Negative) 05/08/22 00:04 Urine RBC 0-4 /hpf (0-2) H 05/08/22 00:04 Urine WBC 0-4 /hpf (0-5) H 05/08/22 00:04 Ur Squamous Epith Cells 25-40 /hpf (0-5) H 05/08/22 00:04 Amorphous Sediment Not Reportable 05/08/22 00:04 Urine Bacteria 2+ /hpf (NONE) H 05/08/22 00:04 Urine Mucus 1+ /hpf 05/08/22 00:04 Urine Opiates Screen Positive ng/mL (Negative) H 05/08/22 22:40 Ur Barbiturates Screen Negative ng/mL (Negative) 05/08/22 22:40 Ur Phencyclidine Scrn Negative ng/mL (Negative) 05/08/22 22:40 Ur Amphetamines Screen Negative ng/mL (Negative) 05/08/22 22:40 U Benzodiazepines Scrn Negative ng/mL (Negative) 05/08/22 22:40 Urine Cocaine Screen Negative ng/mL (Negative) 05/08/22 22:40 U Marijuana (THC) Screen Negative ng/mL (Negative) 05/08/22 22:40 A&P Assessment and plan (1) Presence of permanent cardiac pacemaker: The patient is a pacemaker was interrogated this morning. Pacemaker function was found to be appropriate. We will continue on the current treatment. We will arrange for the in the office and transtelephonic monitoring (2) Syncope: Has not had a recurrence of syncope/near syncope. (3) Bradycardia: Patient seems to have features of sick sinus syndrome. Currently she has sinus tachycardia. Dose of the metoprolol may be gradually increased (4) Accelerated hypertension: The blood pressure has been fluctuating. Her systolic blood pressure seems to be going up with her complaints of pain. Doses of beta-blockers may be gradually increased (5) Seizure disorder: Patient has not had any recurrence of seizure disorder (6) Diabetes mellitus: May continue on the current medications. (7) Hypothyroidism: Clinically euthyroid. Continue on the current treatment. (8) Pulmonary embolism: Has not had a recent recurrence. Qualifiers: Pulmonary embolism type: multiple subsegmental (without acute cor pulmonale) Qualified Code(s): I26.94 - Multiple subsegmental pulmonary emboli without acute cor pulmonale (9) Nicotine dependence, cigarettes, with unspecified nicotine-induced disorders: Strongly advised to quit smoking (10) Chronic abdominal pain: Management as per the primary (11) H/O right hemicolectomy: The laparotomy scar appears to be healing. Plan We will continue on the current treatment. Patient may be started on Keflex and a milligram p.o. every 6 hours for 5 days after finishing the IV antibiotics. Will be seen in the clinic next week by the nurse practitioner, for a pacemaker check and wound check. I may see him in the office in 3 weeks. Attestations Medical Necessity Statement*: Disposition as per the primary Coding Level of Care Code 53755 Diagnoses Presence of permanent cardiac pacemaker Z95.0 Syncope R55 Bradycardia R00.1 Accelerated hypertension I10 Seizure disorder G40.909 Diabetes mellitus E11.9 Hypothyroidism E03.9 Pulmonary embolism I26.94 Pulmonary embolism type: multiple subsegmental (without acute cor pulmonale) Nicotine dependence, cigarettes, with unspecified nicotine-induced disorders F17.219 Chronic abdominal pain R10.9; G89.29 H/O right hemicolectomy Z90.49
[2022-05-11 11:33] LABS: Glucose Point of Care 137 mg/dL (70-110)
[2022-05-11] MEDS: tizanidine 4 mg Tablet PO ×2 (11:41→21:22)
[2022-05-11 13:38] LABS: Arterial Blood Gas Hematocrit 48.8 % (37-47); Blood Gas CCRB Time 1100
[2022-05-11 13:44] LABS: Ionized Calcium Level - ABG 1.2 mmol/L (1.1-1.4)
[2022-05-11 13:45] LABS: Carboxyhemoglobin 1.4 %THgb (0.4-20.1); Methemoglobin 0.6 % (0.4-1.5); Total Hemoglobin 15.9 g/dL (12-16)
[2022-05-11 17:19] LABS: Glucose Point of Care 115 mg/dL (70-110)
--- NOTE | 2022-05-11 18:41 | PC.NURSE ---
Report called to SUJIT Johnson. No further questions. Patient and belongings transferred to [id number] by this nurse via wheelchair.
--- NOTE | 2022-05-11 20:35 | PC.NURSE ---
Patient requesting to have doxepin from home dose. Informed Dr Montaño and received order to reorder as home dosing. RBVO
[2022-05-11 21:11] LABS: Glucose Point of Care 92 mg/dL (70-110)
[2022-05-11] MEDS: doxepin 10 mg Capsule PO (21:22)
[2022-05-11] MEDS: albuterol 2.5 mg/3 mL Neb INHALATION (21:56)
[2022-05-11] MEDS: ipratropium 0.5 mg/2.5 mL Neb INHALATION (21:56)
[2022-05-11] MEDS: budesonide 0.5 mg/2 mL Neb INHALATION (21:56)
[2022-05-12] VITALS (10 sets, daily range): BP systolic 114–157; BP diastolic 66–76; PULSE 70–106; RESP 16–20; TEMP 37.3–37.4; O2SAT 95–98
[2022-05-12 03:52] LABS: Basophils % 0.4 %; Eosinophils # 0.2 10^3/uL (0.0-0.8); Eosinophils % 3.2 %; Hematocrit 34.4 % (37.0-47.0); Hemoglobin 11.1 g/dL (11.5-15.3); Lymphocytes # 1.8 10^3/uL (0.8-4.8); Lymphocytes % 38.5 %; Mean Corpuscular HGB Conc 32.3 g/dL (30.0-36.0); Mean Corpuscular Hemoglobin 29.9 pg (28.0-34.0); Mean Corpuscular Volume 92.7 fl (81-99); Mean Platelet Volume 10.3 fL (7.4-10.4); Monocytes # 0.8 10^3/uL (0.2-0.9); Monocytes % 16.9 %; Neutrophils # 1.88 10^3/uL (1.8-7.7); Neutrophils % 40.8 %; Nucleated Red Blood Cells % 0 %; Platelet Count 136 10^3/cmm (130-400); Red Blood Count 3.71 10^6/uL (4.1-5.3); Red Cell Distribution Width 13.1 % (12.1-15.1); White Blood Count 4.6 10^3/uL (4.0-10.0)
[2022-05-12 04:07] LABS: Alanine Aminotransferase 7 U/L (0-33); Albumin Level 2.9 g/dL (3.5-5.2); Alkaline Phosphatase 80 U/L (35-105); Anion Gap 11.8 (5-19); Aspartate Amino Transferase 24 U/L (0-32); Blood Urea Nitrogen 8 mg/dL (6-20); Calcium 8.6 mg/dL (8.5-10.5); Carbon Dioxide 25 mmol/L (22-29); Chloride 105 mmol/L (98-107); Globulin 3.3 g/dL (1.3-4.6); Glomerular Filtration Rate 107.2 mL/min (90-130); Glucose 124 mg/dL (65-115); Magnesium 1.6 mg/dL (1.7-2.3); Osmolality Calculated 286 mOsm/kg (285-295); Potassium 3.8 mmol/L (3.5-5.1); Sodium 138 mmol/L (136-145); Total Bilirubin 0.6 mg/dL (0.15-1.2); Total Protein 6.2 g/dL (6.6-8.7)
[2022-05-12] MEDS: HYDROmorphone 1 mg/mL INJ 1 mL IVP (04:57)
[2022-05-12] MEDS: levothyroxine 50 mcg Tablet PO (04:58)
[2022-05-12 06:37] LABS: Glucose Point of Care 121 mg/dL (70-110)
[2022-05-12] MEDS: albuterol 2.5 mg/3 mL Neb INHALATION (07:39)
[2022-05-12] MEDS: budesonide 0.5 mg/2 mL Neb INHALATION (07:39)
[2022-05-12] MEDS: ipratropium 0.5 mg/2.5 mL Neb INHALATION (07:39)
[2022-05-12] MEDS: oxyCODONE IR 30 mg Tablet PO (08:45)
[2022-05-12] MEDS: lamoTRIgine 100 mg Tablet 200 MG PO (08:46)
[2022-05-12] MEDS: gabapentin 300 mg Capsule PO (08:47)
[2022-05-12] MEDS: pantoprazole DR 40 mg Tablet PO (08:47)
[2022-05-12] MEDS: enoxaparin 40 mg/0.4 mL Syringe SUBCUT (08:47)
[2022-05-12] MEDS: cephALEXin 500 mg Capsule PO (08:55)
[2022-05-12] MEDS: metoprolol tartrate 25 mg Tablet 12.5 MG PO (08:56)
[2022-05-12] MEDS: levETIRAcetam 500 mg Tablet 750 MG PO (08:58)
--- NOTE | 2022-05-12 10:12 | P.DS_ITS ---
Discharge Providers Date of Admission: 05/08/22 00:36 Date of Discharge: May 12, 2022 Attending Provider at Admission: Levi Montaño MD Attending Provider at Discharge: Derek Scott MD Primary Care Provider: Francisco Mckinley DO Diagnoses at Discharge Discharge Diagnosis (1) Symptomatic bradycardia: Status: Acute (2) COPD (chronic obstructive pulmonary disease): Status: Acute Qualifiers: COPD type: unspecified COPD Qualified Code(s): J44.9 - Chronic obstructive pulmonary disease, unspecified Permanent problem details: Chronically on 3 L of oxygen (3) Hypomagnesemia: Status: Acute (4) Diabetes mellitus: Status: Acute (5) Chronic abdominal pain: Status: Chronic (6) Hypothyroidism: Status: Acute (7) Tobacco dependency: Status: Acute Reason for Visit Reason for Visit: symptomatic bradycardia Hospital Course Hospital Course Mrs. Foreman was admitted to the hospital with significant symptomatic bradycardia following syncope. She was evaluated, and thought to have sick sinus syndrome. A pacemaker was placed on May 10, after evaluation determined no other cause of bradycardia. She was not on any rate limiting medications. A CT abdomen and pelvis was done secondary to her chronic abdominal pain which did not show any ongoing inflammation or infection. She was demonstrated to have a significant pause with syncope in the hospital. She required quite a bit of narcotics during her hospital stay, and I discussed this with her in detail. She is a chronic pain patient. Medications were adjusted in the hospital, and ultimately a low-dose of beta-juanpablo was added to her regimen following her pacemaker placement. At time of discharge she was up and walking, without significant complaints, and eager to go home. Cardiology had cleared her as well. I discussed with her her discharge plan, she had an opportunity to ask questions, and this was arranged. Physical Exam Narrative: General exam no distress Neck is supple Cardiovascular regular rate and rhythm Dressing is present over pacemaker left chest Abdomen is soft, positive bowel sounds Extremities no cyanosis clubbing or edema Urinary Catheter Management: Ferro: Cath Placed During This Visit: yes, but has since been removed by the nurse Reason for Continuing Indwelling Catheter: Does Not Meet Criteria Urinary Catheter Date of Insertion: 05/08/22 Urinary Catheter Time of Insertion: 23:45 Date Urinary Catheter Removed: 05/11/22 Time Urinary Catheter Discontinued: 11:30 Discharge Data Studies Completed and Pending Completed Studies During Hospitalization Category Date Time Status CT abdomen pelvis w con* [id number] Urgent Cat Scan 05/08/22 08:08 Completed SPECIAL DELIVERY CLERK request for service Routine Exams 05/10/22 08:00 Completed CXRP [XR chest 1V portable [id number]] Routine Exams 05/10/22 17:29 Completed XR abdomen 1V* [id number] Routine Exams 05/08/22 00:56 Completed XR chest 1V portable [id number] Stat Exams 05/07/22 21:32 Completed CV. echo complete* [id number] Routine Ultrasound 05/08/22 00:52 Completed Radiology Impressions Abdomen X-Ray 05/08/22 00:56 IMPRESSION: 1. There are no acute abdominal findings. Abdomen/Pelvis CT 05/08/22 08:08 IMPRESSION: 1. Recent postoperative changes RIGHT hemicolectomy with anastomosis. A few air-fluid levels in the duodenum and proximal small bowel likely due to adynamic ileus. No evidence of high-grade obstruction. 2. No evidence of high-grade stricture at the anastomosis in the RIGHT midabdomen. 3. Cirrhotic liver with splenomegaly and varices as described above. 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 4. Enlarged common bile duct progressed compared to November 19, 2021 measuring 13 mm at the pancreatic head. This can be further evaluated with MRCP. Chest X-Ray 05/10/22 17:29 IMPRESSION: Pacemaker is seen which appears in place with leads over the right and left heart. Laboratory Results WBC 4.6 10^3/uL (4.0-10.0) 05/12/22 03:33 RBC 3.71 10^6/uL (4.1-5.3) L 05/12/22 03:33 Hgb 11.1 g/dL (11.5-15.3) L 05/12/22 03:33 Hct 34.4 % (37.0-47.0) L 05/12/22 03:33 MCV 92.7 fl (81-99) 05/12/22 03:33 MCH 29.9 pg (28.0-34.0) 05/12/22 03:33 MCHC 32.3 g/dL (30.0-36.0) 05/12/22 03:33 RDW 13.1 % (12.1-15.1) 05/12/22 03:33 Plt Count 136 10^3/cmm (130-400) 05/12/22 03:33 MPV 10.3 fL (7.4-10.4) 05/12/22 03:33 Neut % (Auto) 40.8 % 05/12/22 03:33 Lymph % (Auto) 38.5 % 05/12/22 03:33 [place] % (Auto) 16.9 % 05/12/22 03:33 Eos % (Auto) 3.2 % 05/12/22 03:33 Baso % (Auto) 0.4 % 05/12/22 03:33 Neut # (Auto) 1.88 10^3/uL (1.8-7.7) 05/12/22 03:33 Lymph # (Auto) 1.8 10^3/uL (0.8-4.8) 05/12/22 03:33 [place] # (Auto) 0.8 10^3/uL (0.2-0.9) 05/12/22 03:33 Eos # (Auto) 0.2 10^3/uL (0.0-0.8) 05/12/22 03:33 Baso # (Auto) 0.0 10^3/uL (0.0-0.1) 05/12/22 03:33 Nucleated RBC % (auto) 0 % 05/12/22 03:33 Nucleated RBCs # 0.0 /100WBC 05/12/22 03:33 PT 15.10 SECONDS (12.1-14.9) H 05/09/22 09:49 INR 1.16 (0.8-1.2) 05/09/22 09:49 Specimen Type Arterial 05/08/22 22:34 Sample Site Right radial 05/08/22 22:34 ABG pH 7.45 (7.35-7.45) 05/08/22 22:34 ABG pCO2 30.9 mmHg (35-45) L 05/08/22 22:34 ABG pO2 77.0 mmHg (80.0-100.0) L 05/08/22 22:34 ABG HCO3 21.6 mmol/L (22-26) L 05/08/22 22:34 ABG O2 Saturation 94.9 05/08/22 22:34 ABG Base Excess -1.2 mmol/L (-2.0-2.0) 05/08/22 22:34 Dusty Test Pos 05/08/22 22:34 A-a O2 Gradient Not Reportable 05/08/22 22:34 Hematocrit 48.8 % (37-47) H 05/08/22 22:34 Hgb O2 Saturation 93.0 % (95-100) L 05/08/22 22:34 Carboxyhemoglobin 1.4 %THgb (0.4-20.1) 05/08/22 22:34 Methemoglobin 0.6 % (0.4-1.5) 05/08/22 22:34 Total Hemoglobin 15.9 g/dL (12-16) 05/08/22 22:34 Sodium 137.0 mmol/L (131-143) 05/08/22 22:34 Potassium 3.9 mmol/L (3.5-5.0) 05/08/22 22:34 Glucose 120.0 mg/dL (70-115) H 05/08/22 22:34 Ionized Calcium 1.2 mmol/L (1.1-1.4) 05/08/22 22:34 O2 Delivery Device Nc 05/08/22 22:34 O2 Liters/Min 4.0 % 05/08/22 22:34 Specimen Drawn By Joellen 05/08/22 22:34 Charger Operator ID Afshan 05/08/22 22:34 Blood Gas Notified Time 1100 05/08/22 22:34 Sodium 138 mmol/L (136-145) 05/12/22 03:33 Potassium 3.8 mmol/L (3.5-5.1) 05/12/22 03:33 Chloride 105 mmol/L (98-107) 05/12/22 03:33 Carbon Dioxide 25 mmol/L (22-29) 05/12/22 03:33 Anion Gap 11.8 (5-19) 05/12/22 03:33 BUN 8 mg/dL (6-20) 05/12/22 03:33 Creatinine 0.6 mg/dL (0.5-0.9) 05/12/22 03:33 GFR Calculation 107.2 mL/min (90-130) 05/12/22 03:33 Glucose 124 mg/dL (65-115) H 05/12/22 03:33 POC Glucose 121 mg/dL (70-110) H 05/12/22 06:22 Calculated Osmolality 286 mOsm/kg (285-295) 05/12/22 03:33 Lactate 2.1 mmol/L (0.5-2.2) 05/07/22 21:40 Calcium 8.6 mg/dL (8.5-10.5) 05/12/22 03:33 Magnesium 1.6 mg/dL (1.7-2.3) L 05/12/22 03:33 Total Bilirubin 0.6 mg/dL (0.15-1.2) 05/12/22 03:33 AST 24 U/L (0-32) 05/12/22 03:33 ALT 7 U/L (0-33) 05/12/22 03:33 Alkaline Phosphatase 80 U/L (35-105) 05/12/22 03:33 Ammonia 88 umol/L (11-51) H 05/09/22 03:20 Troponin T Baseline 15 ng/L (0-10) H 05/09/22 00:20 Troponin T 120 Minute 13.95 ng/L (0-10) H 05/09/22 03:20 Delta Troponin T -1.05 ABS# (0-10) L 05/09/22 03:20 Troponin T Hi Sens 6Hr 13.59 ng/L (0-10) H 05/09/22 06:07 Troponin T Hi Sens 6Hr Delta -1.41 ng/L (0-12) L 05/09/22 06:07 NT-Pro-B Natriuret Pep 847 pg/mL (0-125) H 05/07/22 21:40 Total Protein 6.2 g/dL (6.6-8.7) L 05/12/22 03:33 Albumin 2.9 g/dL (3.5-5.2) L 05/12/22 03:33 Globulin 3.3 g/dL (1.3-4.6) 05/12/22 03:33 Lipase 14 U/L (13-60) 05/08/22 05:17 TSH 0.60 uIU/mL (0.27-4.20) 05/07/22 21:40 Urine Color Yellow (Yellow) 05/08/22 00:04 Urine Appearance Hazy (CLEAR) A 05/08/22 00:04 Urine pH 8 (5-7) H 05/08/22 00:04 Ur Specific [place] 1.015 (1.005-1.030) 05/08/22 00:04 Urine Protein Neg (Negative) 05/08/22 00:04 Urine Glucose (UA) Norm (Normal) 05/08/22 00:04 Urine Ketones Negative (Negative) 05/08/22 00:04 Urine Blood Neg (Negative) 05/08/22 00:04 Urine Nitrate Negative (Negative) 05/08/22 00:04 Urine Bilirubin Neg (Negative) 05/08/22 00:04 Prot Sulfosalicylic Acd Negative (Negative) 05/08/22 00:04 Urine Urobilinogen 8 mg/dL (Negative) H 05/08/22 00:04 Ur Leukocyte Esterase Negative (Negative) 05/08/22 00:04 Urine RBC 0-4 /hpf (0-2) H 05/08/22 00:04 Urine WBC 0-4 /hpf (0-5) H 05/08/22 00:04 Ur Squamous Epith Cells 25-40 /hpf (0-5) H 05/08/22 00:04 Amorphous Sediment Not Reportable 05/08/22 00:04 Urine Bacteria 2+ /hpf (NONE) H 05/08/22 00:04 Urine Mucus 1+ /hpf 05/08/22 00:04 Urine Opiates Screen Positive ng/mL (Negative) H 05/08/22 22:40 Ur Barbiturates Screen Negative ng/mL (Negative) 05/08/22 22:40 Ur Phencyclidine Scrn Negative ng/mL (Negative) 05/08/22 22:40 Ur Amphetamines Screen Negative ng/mL (Negative) 05/08/22 22:40 U Benzodiazepines Scrn Negative ng/mL (Negative) 05/08/22 22:40 Urine Cocaine Screen Negative ng/mL (Negative) 05/08/22 22:40 U Marijuana (THC) Screen Negative ng/mL (Negative) 05/08/22 22:40 Vitals Last Vital Signs Temp 99.2 F 05/12/22 04:00 Pulse 102 H 05/12/22 08:15 Resp 16 05/12/22 08:45 BP 157/76 05/12/22 08:15 Pulse Ox 96 05/12/22 08:15 O2 Del Method 05/12/22 07:40 O2 Flow Rate 2 02/24/23 07:40 FiO2 3 05/10/22 04:00 Discharge Plan Discharge Patient Disposition: Home Health Service Condition: Stable Prescriptions: New cephalexin 500 mg Capsule 500 mg PO QID Qty: 20 0RF metoprolol tartrate 25 mg Tablet 12.5 mg PO BID@0900,2100 Qty: 30 0RF Continued levothyroxine 50 mcg tablet 50 mcg PO QAM Qty: 30 0RF Rx Instructions: needs an appt with labs before more refills Reginaldotri Aerosphere 160-9-4.8 mcg/actuation HFA aerosol inhaler 2 inh inhalation BID Qty: 10.7 3RF ipratropium-albuterol 0.5 mg-3 mg(2.5 mg base)/3 mL solution for nebulization 3 ml inhalation Q4H PRN (Reason: wheezing) Qty: 180 3RF insulin glargine [Lantus U-100 Insulin] 100 unit/mL solution See Rx Instructions .ROUTE .COMPLEX Rx Instructions: 10 units qam and 40 units bedtime tizanidine 4 mg tablet 4 mg PO BID sumatriptan succinate [Imitrex] 50 mg Tablet 50 mg PO Q2H MDD 2 tabs PRN (Reason: Migraine Headache) spironolactone 25 mg tablet 25 mg PO BID levetiracetam 750 mg tablet 750 mg PO BID pantoprazole 40 mg tablet,delayed release (DR/EC) 40 - 80 mg PO DAILY PRN (Reason: Acid Reflux) albuterol sulfate 90 mcg/actuation HFA aerosol inhaler 1 inh inhalation Q6H PRN (Reason: shortness of breath or wheezing) Qty: 8.5 0RF lactulose 10 gram/15 mL solution 90 ml PO TID tenofovir disoproxil fumarate 300 mg tablet 300 mg PO BEDTIME lamotrigine 200 mg Tablet 200 mg PO BEDTIME lubiprostone [Amitiza] 24 mcg Capsule 24 mcg PO BID gabapentin 300 mg capsule 300 mg PO BID Creon 3,000-9,500- 15,000 unit capsule,delayed release(DR/EC) 1 cap PO TID naloxone [Narcan] 4 mg/actuation spray,non-aerosol See Rx Instructions .ROUTE .COMPLEX Qty: 1 0RF Rx Instructions: as directed intranasally prn zinc acetate 50 mg (zinc) Capsule 50 mg PO DAILY doxepin 10 mg Capsule 10 mg PO BEDTIME oxycodone 30 mg Tablet 30 mg PO TID Rx Instructions: rx filled 05/02/22 7d/s morphine 15 mg Tablet 15 mg PO BID PRN (Reason: Pain) Rx Instructions: 6 tabs must last 2 weeks Xifaxan 550 mg Tablet 550 mg PO BID Discontinued lisinopril 10 mg tablet 10 mg PO QAM metoclopramide HCl 10 mg Tablet 10 mg PO DAILY PRN (Reason: Nausea) scopolamine base 1 mg over 3 days patch 3 day 1 patch transdermal Q3D Lasix 80 mg Tablet 80 mg PO TID potassium chloride 20 mEq/15 mL Liquid 20 meq PO BID Levaquin 750 mg Tablet 750 mg PO DAILY Rx Instructions: rx filled 05/01/22 5d/s Discharge Orders: Discharge Order (Routine); Ordered 05/12/22 Ordered By: Derek Scott Other Ambulatory Orders: DME: Cane/ Crutches (Order) Location: None Selected Ordered By: Derek Scott DME: [employer] (Order) Location: None Selected Ordered By: Derek Scott Referrals: [facility] [Outside] Donita Martinez FNP [Nurse Practitioner] - 4-7 days Francisco Mckinley DO [Primary Care Provider] - 4-7 days (BMP on follow-up) Discharge Diet: Cardiac and Diabetic Discharge Activity: Increase activity as tolerated Patient Instructions: Pacemaker (DC), Opioid Safety, Post Pacemaker - Garo Activity Restrictions/Additional Instructions: Take all medicine as prescribed Follow-up with your primary care provider 3 to 5 days Follow-up with Dr. Wyman 2 weeks Patient's Health Concerns: Bradycardia Assessment: Sick sinus syndrome, pacemaker placed Plan of Treatment: Pacemaker Discharge Attestations Time Spent in Discharge Care*: greater than 30 min Quality Metrics Clinical Quality Measures [ No reported AMI, CVA or VTE this stay] Coding Level of Care Code 58889 Total time (in minutes) for Discharge: 35 Diagnoses Symptomatic bradycardia R00.1 COPD (chronic obstructive pulmonary disease) J44.9 COPD type: unspecified COPD Hypomagnesemia E83.42 Diabetes mellitus E11.9 Chronic abdominal pain R10.9; G89.29 Hypothyroidism E03.9 Tobacco dependency F17.200
--- NOTE | 2022-05-12 13:01 | P.PN_ITS ---
Subjective Subjective: Patient is feeling okay. Pacemaker site has no hematoma bleeding. Telemetry shows sinus rhythm. No new arrhythmias on the monitor. Medications: Medication Review Details: Current Medications Acetaminophen (Acetaminophen 325 Mg Tablet) 650 mg PO Q6H PRN PRN Reason: MILD PAIN Albuterol Sulfate (Albuterol 2.5 Mg/3 Ml Neb) 2.5 mg INHALATION Q6H.RESP JOJO Last Admin: 05/12/22 07:39 Dose: 2.5 mg Budesonide (Budesonide 0.5 Mg/2 Ml Neb) 0.5 mg INHALATION BID.RESPIRATORY JOJO Last Admin: 05/12/22 07:39 Dose: 0.5 mg Cephalexin HCl (Cephalexin 500 Mg Capsule) 500 mg PO QID JOJO; Protocol Last Admin: 05/12/22 08:55 Dose: 500 mg Dextrose (Dextrose 50% Syringe 50 Ml) 25 ml IVP ONCE PRN; Protocol PRN Reason: hypoglycemia protocol Dextrose (Dextrose 50% Syringe 50 Ml) 50 ml IVP PRN PRN; Protocol PRN Reason: hypoglycemia protocol Doxepin HCl (Doxepin 10 Mg Capsule) 10 mg PO BEDTIME JOJO Last Admin: 05/11/22 21:22 Dose: 10 mg Enoxaparin Sodium (Enoxaparin 40 Mg/0.4 Ml Syringe) 40 mg SUBCUT Q24H JOJO Last Admin: 05/12/22 08:47 Dose: 40 mg Gabapentin (Gabapentin 300 Mg Capsule) 300 mg PO BID JOJO Last Admin: 05/12/22 08:47 Dose: 300 mg Glucagon (Glucagon 1 Mg/Ml Inj 1 Ml) 1 mg IM ONCE PRN; Protocol PRN Reason: Adult Acute Hypoglycemia Prot. Dextrose (D5w) 500 mls @ 100 mls/hr IV ONCE PRN; Protocol PRN Reason: Adult Acute Hypoglycemia Prot Insulin Human Lispro (Insulin Lispro 100 Unit/1 Ml) 0 unit SUBCUT WM&BEDTIME JOJO; Protocol Last Admin: 05/12/22 08:35 Dose: Not Given Ipratropium [place] (Ipratropium 0.5 Mg/2.5 Ml Neb) 0.5 mg INHALATION Q6H.RESP JOJO Last Admin: 05/12/22 07:39 Dose: 0.5 mg Lactulose (Lactulose Oral Liq 20 Gm/30 Ml Udc) 20 gm PO BID JOJO Last Admin: 05/12/22 08:51 Dose: Not Given Lamotrigine (Lamotrigine 100 Mg Tablet) 200 mg PO DAILY [facility] Last Admin: 05/12/22 08:46 Dose: 200 mg Levetiracetam (Levetiracetam 500 Mg Tablet) 750 mg PO BID [facility] Last Admin: 05/12/22 08:58 Dose: 750 mg Levothyroxine Sodium (Levothyroxine 50 Mcg Tablet) 50 mcg PO QAM [facility] Last Admin: 05/12/22 04:58 Dose: 50 mcg Metoprolol Tartrate (Metoprolol Tartrate 25 Mg Tablet) 12.5 mg PO BID@0900,2100 [facility] Last Admin: 05/12/22 08:56 Dose: 12.5 mg Ondansetron HCl (Ondansetron 2 Mg/Ml Sdv 2 Ml) 4 mg IVP Q6H PRN PRN Reason: NAUSEA AND VOMITING Last Admin: 05/10/22 14:36 Dose: 4 mg Oxycodone HCl (Oxycodone Ir 30 Mg Tablet) 30 mg PO Q4H PRN PRN Reason: SEVERE PAIN Last Admin: 05/12/22 08:45 Dose: 30 mg Pantoprazole Sodium (Pantoprazole Dr 40 Mg Tablet) 40 mg PO DAILY [facility] Last Admin: 05/12/22 08:47 Dose: 40 mg Rifaximin (Rifaximin 550 Mg Tablet) 550 mg PO BID [facility]; Protocol Last Admin: 05/12/22 08:46 Dose: 550 mg Tizanidine HCl (Tizanidine 4 Mg Tablet) 4 mg PO BID PRN PRN Reason: SPASMS Last Admin: 05/11/22 21:22 Dose: 4 mg Vitals/I&O/Wt Last Vital Signs Temp 99.2 F 05/12/22 04:00 Pulse 106 H 05/12/22 10:50 Resp 16 05/12/22 10:50 BP 157/76 05/12/22 10:50 Pulse Ox 96 05/12/22 10:50 O2 Del Method 05/12/22 07:40 O2 Flow Rate 2 05/12/22 07:40 FiO2 3 05/10/22 04:00 05/11/22 05/12/22 05/12/22 22:59 06:59 14:59 Intake Total 1480 / 2210 500 / 2710 480 / 480 Output Total 800 / 1300 Balance 1480 / 1710 -300 / 1410 480 / 480 Weight last 48 hrs Weight 249 lb 12.8 oz Weight 249 lb 12.8 oz Weight 247 lb 8.668 oz Physical Exam Narrative: GENERAL: The patient is alert and oriented times three. Not in any acute distress. HEENT: No significant pallor, icterus or lymphadenopathy.Oral cavity: There are no mucous membrane lesions. NECK: Trachea appears to be central. No masses noted. No JVD or thyromegaly appreciated. RESPIRATORY: Chest is symmetrical. No hematoma bleeding at the pacemaker site. No intercostals muscle retraction or any accessory muscle activation. There is no chest wall tenderness. Breath sounds are heard bilaterally. No rales or rhonchi heard. No evidence of any consolidation. BREASTS: Deferred. HEART: The heart sounds are normal. No S3 or S4. No significant murmurs. No pericardial rub ABDOMEN: No vessel pulsations or distention. No tenderness. No organomegaly appreciated. Bowel sounds are normally heard. : Deferred. RECTAL: Deferred. LYMPHATIC: No lymphadenopathy noted in the neck. EXTREMITIES: No edema or cyanosis. No clubbing. MUSCULOSKELETAL: No acute joint deformities or swelling SKIN: There are no significant rashes or ecchymosis NEUROPSYCHIATRIC: The patient is alert and oriented x3. Appears to be in a good mood. No tremors or rigidity noted. Urinary Catheter Management: Ferro: Cath Placed During This Visit: yes, but has since been removed by the nurse Reason for Continuing Indwelling Catheter: Does Not Meet Criteria Urinary Catheter Date of Insertion: 05/08/22 Urinary Catheter Time of Insertion: 23:45 Date Urinary Catheter Removed: 05/11/22 Time Urinary Catheter Discontinued: 11:30 Data 05/12/22 03:33 05/12/22 03:33 Other Labs: Laboratory Last Values WBC 4.6 10^3/uL (4.0-10.0) 05/12/22 03:33 RBC 3.71 10^6/uL (4.1-5.3) L 05/12/22 03:33 Hgb 11.1 g/dL (11.5-15.3) L 05/12/22 03:33 Hct 34.4 % (37.0-47.0) L 05/12/22 03:33 MCV 92.7 fl (81-99) 05/12/22 03:33 MCH 29.9 pg (28.0-34.0) 05/12/22 03:33 MCHC 32.3 g/dL (30.0-36.0) 05/12/22 03:33 RDW 13.1 % (12.1-15.1) 05/12/22 03:33 Plt Count 136 10^3/cmm (130-400) 05/12/22 03:33 MPV 10.3 fL (7.4-10.4) 05/12/22 03:33 Neut % (Auto) 40.8 % 05/12/22 03:33 Lymph % (Auto) 38.5 % 05/12/22 03:33 [place] % (Auto) 16.9 % 05/12/22 03:33 Eos % (Auto) 3.2 % 05/12/22 03:33 Baso % (Auto) 0.4 % 05/12/22 03:33 Neut # (Auto) 1.88 10^3/uL (1.8-7.7) 05/12/22 03:33 Lymph # (Auto) 1.8 10^3/uL (0.8-4.8) 05/12/22 03:33 [place] # (Auto) 0.8 10^3/uL (0.2-0.9) 05/12/22 03:33 Eos # (Auto) 0.2 10^3/uL (0.0-0.8) 05/12/22 03:33 Baso # (Auto) 0.0 10^3/uL (0.0-0.1) 05/12/22 03:33 Nucleated RBC % (auto) 0 % 05/12/22 03:33 Nucleated RBCs # 0.0 /100WBC 05/12/22 03:33 PT 15.10 SECONDS (12.1-14.9) H 05/09/22 09:49 INR 1.16 (0.8-1.2) 05/09/22 09:49 Specimen Type Arterial 05/08/22 22:34 Sample Site Right radial 05/08/22 22:34 ABG pH 7.45 (7.35-7.45) 05/08/22 22:34 ABG pCO2 30.9 mmHg (35-45) L 05/08/22 22:34 ABG pO2 77.0 mmHg (80.0-100.0) L 05/08/22 22:34 ABG HCO3 21.6 mmol/L (22-26) L 05/08/22 22:34 ABG O2 Saturation 94.9 05/08/22 22:34 ABG Base Excess -1.2 mmol/L (-2.0-2.0) 05/08/22 22:34 Dusty Test Pos 05/08/22 22:34 A-a O2 Gradient Not Reportable 05/08/22 22:34 Hematocrit 48.8 % (37-47) H 05/08/22 22:34 Hgb O2 Saturation 93.0 % (95-100) L 05/08/22 22:34 Carboxyhemoglobin 1.4 %THgb (0.4-20.1) 05/08/22 22:34 Methemoglobin 0.6 % (0.4-1.5) 05/08/22 22:34 Total Hemoglobin 15.9 g/dL (12-16) 05/08/22 22:34 Sodium 137.0 mmol/L (131-143) 05/08/22 22:34 Potassium 3.9 mmol/L (3.5-5.0) 05/08/22 22:34 Glucose 120.0 mg/dL (70-115) H 05/08/22 22:34 Ionized Calcium 1.2 mmol/L (1.1-1.4) 05/08/22 22:34 O2 Delivery Device Nc 05/08/22 22:34 O2 Liters/Min 4.0 % 05/08/22 22:34 Specimen Drawn By Joellen 05/08/22 22:34 Instructional Systems Design Consultant ID Afshan 05/08/22 22:34 Blood Gas Notified Time 1100 05/08/22 22:34 Sodium 138 mmol/L (136-145) 05/12/22 03:33 Potassium 3.8 mmol/L (3.5-5.1) 05/12/22 03:33 Chloride 105 mmol/L (98-107) 05/12/22 03:33 Carbon Dioxide 25 mmol/L (22-29) 05/12/22 03:33 Anion Gap 11.8 (5-19) 05/12/22 03:33 BUN 8 mg/dL (6-20) 05/12/22 03:33 Creatinine 0.6 mg/dL (0.5-0.9) 05/12/22 03:33 GFR Calculation 107.2 mL/min (90-130) 05/12/22 03:33 Glucose 124 mg/dL (65-115) H 05/12/22 03:33 POC Glucose 121 mg/dL (70-110) H 05/12/22 06:22 Calculated Osmolality 286 mOsm/kg (285-295) 05/12/22 03:33 Lactate 2.1 mmol/L (0.5-2.2) 05/07/22 21:40 Calcium 8.6 mg/dL (8.5-10.5) 05/12/22 03:33 Magnesium 1.6 mg/dL (1.7-2.3) L 05/12/22 03:33 Total Bilirubin 0.6 mg/dL (0.15-1.2) 05/12/22 03:33 AST 24 U/L (0-32) 05/12/22 03:33 ALT 7 U/L (0-33) 05/12/22 03:33 Alkaline Phosphatase 80 U/L (35-105) 05/12/22 03:33 Ammonia 88 umol/L (11-51) H 05/09/22 03:20 Troponin T Baseline 15 ng/L (0-10) H 05/09/22 00:20 Troponin T 120 Minute 13.95 ng/L (0-10) H 05/09/22 03:20 Delta Troponin T -1.05 ABS# (0-10) L 05/09/22 03:20 Troponin T Hi Sens 6Hr 13.59 ng/L (0-10) H 05/09/22 06:07 Troponin T Hi Sens 6Hr Delta -1.41 ng/L (0-12) L 05/09/22 06:07 NT-Pro-B Natriuret Pep 847 pg/mL (0-125) H 05/07/22 21:40 Total Protein 6.2 g/dL (6.6-8.7) L 05/12/22 03:33 Albumin 2.9 g/dL (3.5-5.2) L 05/12/22 03:33 Globulin 3.3 g/dL (1.3-4.6) 05/12/22 03:33 Lipase 14 U/L (13-60) 05/08/22 05:17 TSH 0.60 uIU/mL (0.27-4.20) 05/07/22 21:40 Urine Color Yellow (Yellow) 05/08/22 00:04 Urine Appearance Hazy (CLEAR) A 05/08/22 00:04 Urine pH 8 (5-7) H 05/08/22 00:04 Ur Specific [place] 1.015 (1.005-1.030) 05/08/22 00:04 Urine Protein Neg (Negative) 05/08/22 00:04 Urine Glucose (UA) Norm (Normal) 05/08/22 00:04 Urine Ketones Negative (Negative) 05/08/22 00:04 Urine Blood Neg (Negative) 05/08/22 00:04 Urine Nitrate Negative (Negative) 05/08/22 00:04 Urine Bilirubin Neg (Negative) 05/08/22 00:04 Prot Sulfosalicylic Acd Negative (Negative) 05/08/22 00:04 Urine Urobilinogen 8 mg/dL (Negative) H 05/08/22 00:04 Ur Leukocyte Esterase Negative (Negative) 05/08/22 00:04 Urine RBC 0-4 /hpf (0-2) H 05/08/22 00:04 Urine WBC 0-4 /hpf (0-5) H 05/08/22 00:04 Ur Squamous Epith Cells 25-40 /hpf (0-5) H 05/08/22 00:04 Amorphous Sediment Not Reportable 05/08/22 00:04 Urine Bacteria 2+ /hpf (NONE) H 05/08/22 00:04 Urine Mucus 1+ /hpf 05/08/22 00:04 Urine Opiates Screen Positive ng/mL (Negative) H 05/08/22 22:40 Ur Barbiturates Screen Negative ng/mL (Negative) 05/08/22 22:40 Ur Phencyclidine Scrn Negative ng/mL (Negative) 05/08/22 22:40 Ur Amphetamines Screen Negative ng/mL (Negative) 05/08/22 22:40 U Benzodiazepines Scrn Negative ng/mL (Negative) 05/08/22 22:40 Urine Cocaine Screen Negative ng/mL (Negative) 05/08/22 22:40 U Marijuana (THC) Screen Negative ng/mL (Negative) 05/08/22 22:40 A&P Assessment and plan (1) Presence of permanent cardiac pacemaker: Pacemaker seems to be functioning well. No hematoma or bleeding at the pacema ker site. Started on p.o. antibiotic. This may be continued for a total of 5 days. Also may start on multivitamin 1 tablet daily for 2 weeks. (2) Syncope: Has not had a recurrence of syncope/near syncope. (3) Bradycardia: Patient seems to have features of sick sinus syndrome.. May continue on the current medications (4) Accelerated hypertension: The blood pressure has been fluctuating. Currently the blood pressure is in the normal range (5) Seizure disorder: Patient has not had any recurrence of seizure disorder (6) Diabetes mellitus: May continue on the current medications. (7) Hypothyroidism: Clinically euthyroid. Continue on the current treatment. (8) Pulmonary embolism: Has not had a recent recurrence. Qualifiers: Pulmonary embolism type: multiple subsegmental (without acute cor pulmonale) Qualified Code(s): I26.94 - Multiple subsegmental pulmonary emboli without acute cor pulmonale (9) Nicotine dependence, cigarettes, with unspecified nicotine-induced disorders: Strongly advised to quit smoking (10) Chronic abdominal pain: Management as per the primary (11) H/O right hemicolectomy: The laparotomy scar appears to be healing. Plan Continue on the antibiotic and multivitamins as mentioned above. Appointment [facility] next week to be seen by the nurse practitioner. Appointment with me in the office in 3-week Attestations Medical Necessity Statement*: Deferred to the primary Coding Level of Care Code 92567 Diagnoses Presence of permanent cardiac pacemaker Z95.0 Syncope R55 Bradycardia R00.1 Accelerated hypertension I10 Seizure disorder G40.909 Diabetes mellitus E11.9 Hypothyroidism E03.9 Pulmonary embolism I26.94 Pulmonary embolism type: multiple subsegmental (without acute cor pulmonale) Nicotine dependence, cigarettes, with unspecified nicotine-induced disorders F17.219 Chronic abdominal pain R10.9; G89.29 H/O right hemicolectomy Z90.49
== END 2022-05-12 10:00 | disposition home health service (06) | DRG 243 ==
LOC: ER 23:23 → ICU 05-08 00:05 → CSU 05-11 19:06
PROVIDERS: Internal Medicine Cardiovascular Disease; Admitting Provider Student in an Organized Health Care Education/Training Program; Emergency Provider Emergency Medicine; PCP Family Medicine; Visit Provider Internal Medicine
PROC: 0JH606Z Insertion of Pacemaker, Dual Chamber into Chest Subcutaneous Tissue and Fascia, Open Approach (ICD-10-PCS; principal; 2022-05-10 08:30)
DX: I49.5 Sick sinus syndrome (principal); B18.1 Chronic viral hepatitis B without delta-agent; J44.9 Chronic obstructive pulmonary disease, unspecified; E83.42 Hypomagnesemia; E11.9 Type 2 diabetes mellitus without complications; E03.9 Hypothyroidism, unspecified; Z79.51 Long term (current) use of inhaled steroids; Z79.4 Long term (current) use of insulin; Z79.891 Long term (current) use of opiate analgesic; Z86.711 Personal history of pulmonary embolism; Z86.74 Personal history of sudden cardiac arrest; K74.60 Unspecified cirrhosis of liver; K21.9 Gastro-esophageal reflux disease without esophagitis; I10 Essential (primary) hypertension; Z90.49 Acquired absence of other specified parts of digestive tract; F17.210 Nicotine dependence, cigarettes, uncomplicated; I95.1 Orthostatic hypotension; M25.512 Pain in left shoulder; G40.909 Epilepsy, unspecified, not intractable, without status epilepticus; Z88.5 Allergy status to narcotic agent; Z88.2 Allergy status to sulfonamides; G89.29 Other chronic pain
CPT/HCPCS: 33208; 33210; 36415; 36416; 36600; 51702; 71045; 74018; 74177; 80048; 80051; 80053; 80306; 81001; 82140; 82330; 82805; 82962; 83605; 83690; 83735; 83880; 84132; 84443; 84484; 85025; 85610; 93005; 93306; 94640; 94760; 96367; 96372; 96374; 96375; 97110; 97116; 97162; 97165; 97535; 99285; C1769; C1779; C1786; C1894; C1898; J0330; J0360; J0610; J0690; J1170; J1650; J1815; J2060; J2250; J2270; J2405; J2704; J3010; J3370; J3475; J3480; J3490; J7030; J7040; J7050; J7613; J7626; J7644; J7799; Q9967

== ENCOUNTER 2022-05-22 11:22 | Emergency (ER) | payer MEDICAID, SELFPAY ==
[2022-05-22 11:24] VITALS: BP 161/119; PULSE 98; RESP 20; TEMP 36.6; O2SAT 97; BMI 32.5
--- NOTE | 2022-05-22 11:30 | ED_ITS ---
HPI - Nausea/Vomiting/Diarrhea General: Chief complaint: Nausea/Vomiting/Diarrhea Stated complaint: n/v, just had pacemaker put in Time Seen by Provider: 05/22/22 11:30 History of Present Illness: Ms. Froeman is a 46-year-old lady with complex past medical history including diabetes, seizure disorder, COPD, liver disease, recent hospitalization with ICD placement presenting to the emergency department for nausea, vomiting, diarrhea and generalized illness. She reports onset of sy mptoms last night at approximately 9 PM. Onset was subacute without known specific provoking factor. She has had numerous episodes of bright yellow vomiting and diarrhea. She denies blood in vomit or stool. She has had associated mild abdominal cramping though typically has abdominal pain. She feels general muscle aches and pains and some chest discomfort. She reports that she has not been able to keep down her blood pressure medication or her regularly taken pain medication. Intensity of symptoms is moderate to severe. Course has worsened. No other specific changes in health, exacerbating, or alleviating factors identified. Onset (ago): hour(s) Description of vomiting: watery Description of diarrhea: watery Associated nausea: Yes Associated abdominal pain: Yes Location of pain: Diffuse Pain consistency: intermittent Severity: mild Quality: aching Exacerbating factors: eating Relieving factors: none Context: recent surgery/procedure Associated symtoms: Reports chest pain, malaise, myalgias, nausea and weakness; Denies dysuria, fevers/chills or palpitations Review of Systems General: Reports: 10 or more systems reviewed and unremarkable except in HPI and below Const: Reports: malaise Card: Reports: chest pain; Denies: palpitations GI: Reports: nausea : Denies: dysuria PFSH ED PFSH: Medical History Accidental fentanyl overdose Bilateral pulmonary embolism Cardiac arrest Chronic abdominal pain Chronic hepatitis B Chronic hip pain Cirrhosis COPD (chronic obstructive pulmonary disease) Chronically on 3 L of oxygen Diabetes mellitus Encephalopathy Gastroesophageal reflux GI bleeding Hepatitis B Hypertension Hypothyroidism Leg cramps Overdose Pelvic inflammatory disease Pulmonary embolism Stomach cancer Thrombocytopenia Tobacco dependency Surgical History H/O tubal ligation History of hysterectomy History of laparotomy History of right hemicolectomy Family History Mother Diabetes Father CAD (coronary artery disease) Other Cancer Social History Smoking and tobacco status: former smoker Quit status (tobacco): has quit using tobacco Year quit tobacco: 2020 Former quit date comment: 2ppd x 26 year Hx Alcohol intake: never Physical Exam Const: COMMON NORMALS: alert GENERAL APPEARANCE: cooperative, well developed and ill appearing (Somewhat) HENMT: COMMON NORMALS: normocephalic and atraumatic HEAD & SCALP: normocephalic and atraumatic Eye: COMMON NORMALS: conjunctivae normal CONJUNCTIVA: Yes conjunctivae normal SCLERA: sclerae normal Neck/C-Spine: COMMON NORMALS: supple GENERAL: Yes trachea midline Chest: OTHER: Pacemaker implant site appears well-healing without evidence of infection Resp: COMMON NORMALS: clear to auscultation bilaterally EFFORT & INSPECT ION: Yes able to speak in complete sentences AUSCULTATION: clear to auscultation bilaterally Cardio: COMMON NORMALS: regular rate and regular rhythm RATE: regular rate RHYTHM: regular rhythm GI: COMMON NORMALS: Soft to palpation PALPATION: Yes Soft to palpation, Yes Tenderness to palpation present (GI), No Guarding due to palpation present (GI) and No Rigid due to palpation Extremity: NARRATIVE EXTREMITY EXAM: Generalized muscular tenderness to palpation. GENERAL: Yes normal exam except as noted and No edema Neuro: COMMON NORMALS: moves all extremities SENSORIUM/ORIENTATION: Yes a lert and No Orientation impaired Psych: COMMON NORMALS: mental status grossly normal and Normal thought process present THOUGHT PROCESS: Normal thought process present Course 2 Vital Signs: Vital signs: Vital Signs Temperature 97.8 F 05/22/22 11:24 Pulse Rate 99 05/22/22 15:10 Respiratory Rate 19 H 05/22/22 15:10 Blood Pressure 177/108 05/22/22 15:10 Pulse Oximetry 97 05/22/22 15:10 Oxygen Delivery Me thod 05/22/22 12:41 Oxygen Flow Rate 1 05/22/22 12:41 MDM - Nausea/Vomiting/Diarrhea Medical Decision Making 46-year-old lady presenting with nausea, vomiting, diarrhea. She recently had pacemaker placement and hospitalization. Exam as above. EKG notable for sinus rhythm with ventricular pacemaker, normal axis and intervals, no STEMI. No significant hematologic abnormalities. Metabolic panel with minimal hypokalemia and low magnesium. Urinalysis with no evidence of urinary tract infection. Viral panel negative. Chest x-ray with mild nonspecific opacities. CT abdomen pelvis with recent r ight hemicolectomy without other complication, incidental findings noted. Patient treated with antiemetic, analgesia, fluids, potassium replenishment, magnesium replenishment. Patient left prior to completion of ED treatment and evaluation. She has capacity to make medical decisions and exhibits no evidence of intoxication. She left AGAINST MEDICAL ADVICE. Medical Records I reviewed the patient's medical records. Lab Data I reviewed the patient's lab results. 05/22/22 12:20 05/22/22 12:20 Radiology Impressions Chest X-Ray 05/22/22 11:41 IMPRESSION: Nonspecific ground-glass opacity in the lower lungs bilaterally is new since 05/10/2022. Possible edema, infection, aspiration, or atelectasis. Abdomen/Pelvis CT 05/22/22 12:58 IMPRESSION: 1. Recent postoperative changes RIGHT hemicolectomy. Anastomosis appears patent. 2. Previously described adynamic ileus has resolved. 3. No other new findings. 4. Cirrhosis with portal hypertension and splenomegaly with varices described above. Laboratory Results WBC 5.1 10^3/uL (4.0-10.0) 05/22/22 12:20 RBC 4.36 10^6/uL (4.1-5.3) 05/22/22 12:20 Hgb 13.2 g/dL (11.5-15.3) 05/22/22 12:20 Hct 39.5 % (37.0-47.0) 05/22/22 12:20 MCV 90.6 fl (81-99) 05/22/22 12:20 MCH 30.3 pg (28.0-34.0) 05/22/22 12:20 MCHC 33.4 g/dL (30.0-36.0) 05/22/22 12:20 RDW 12.7 % (12.1-15.1) 05/22/22 12:20 Plt Count 195 10^3/cmm (130-400) 05/22/22 12:20 MPV 10.6 fL (7.4-10.4) H 05/22/22 12:20 Neut % (Auto) 65.2 % 05/22/22 12:20 Lymph % (Auto) 22.4 % 05/22/22 12:20 [place] % (Auto) 10.4 % 05/22/22 12:20 Eos % (Auto) 1.2 % 05/22/22 12:20 Baso % (Auto) 0.6 % 05/22/22 12:20 Neut # (Auto) 3.31 10^3/uL (1.8-7.7) 05/22/22 12:20 Lymph # (Auto) 1.1 10^3/uL (0.8-4.8) 05/22/22 12:20 [place] # (Auto) 0.5 10^3/uL (0.2-0.9) 05/22/22 12:20 Eos # (Auto) 0.1 10^3/uL (0.0-0.8) 05/22/22 12:20 Baso # (Auto) 0.0 10^3/uL (0.0-0.1) 05/22/22 12:20 Nucleated RBC % (auto) 0 % 05/22/22 12:20 Nucleated RBCs # 0.0 /100WBC 05/22/22 12:20 Sodium 138 mmol/L (136-145) 05/22/22 12:20 Potassium 3.4 mmol/L (3.5-5.1) L 05/22/22 12:20 Chloride 100 mmol/L (98-107) 05/22/22 12:20 Carbon Dioxide 25 mmol/L (22-29) 05/22/22 12:20 Anion Gap 16.4 (5-19) 05/22/22 12:20 BUN 8 mg/dL (6-20) 05/22/22 12:20 Creatinine 0.6 mg/dL (0.5-0.9) 05/22/22 12:20 GFR Calculation 107.2 mL/min (90-130) 05/22/22 12:20 Glucose 98 mg/dL (65-115) 05/22/22 12:20 Calculated Osmolality 284 mOsm/kg (285-295) L 05/22/22 12:20 Calcium 10.4 mg/dL (8.5-10.5) 05/22/22 12:20 Magnesium 1.6 mg/dL (1.7-2.3) L 05/22/22 12:20 Total Bilirubin 0.7 mg/dL (0.15-1.2) 05/22/22 12:20 AST 22 U/L (0-32) 05/22/22 12:20 ALT 10 U/L (0-33) 05/22/22 12:20 Alkaline Phosphatase 91 U/L (35-105) 05/22/22 12:20 Troponin T Baseline 8 ng/L (0-10) 05/22/22 12:20 C-Reactive Protein 11.5 mg/L (0.0-4.9) H 05/22/22 12:20 NT-Pro-B Natriuret Pep 82 pg/mL (0-125) 05/22/22 12:20 Total Protein 8.0 g/dL (6.6-8.7) 05/22/22 12:20 Albumin 3.7 g/dL (3.5-5.2) 05/22/22 12:20 Globulin 4.3 g/dL (1.3-4.6) 05/22/22 12:20 Lipase 35 U/L (13-60) 05/22/22 12:20 Procalcitonin 0.06 ng/mL (0-0.5) 05/22/22 12:20 TSH 0.51 uIU/mL (0.27-4.20) 05/22/22 12:20 HCG, Qual Negative (Negative) 05/22/22 12:20 Urine Color Light yellow (Yellow) 05/22/22 13:30 Urine Appearance Cloudy (CLEAR) A 05/22/22 13:30 Urine pH 9 (5-7) H 05/22/22 13:30 Ur Specific [place] 1.020 (1.005-1.030) 05/22/22 13:30 Urine Protein Neg (Negative) 05/22/22 13:30 Urine Glucose (UA) Norm (Normal) 05/22/22 13:30 Urine Ketones Negative (Negative) 05/22/22 13:30 Urine Blood Neg (Negative) 05/22/22 13:30 Urine Nitrate Negative (Negative) 05/22/22 13:30 Urine Bilirubin Neg (Negative) 05/22/22 13:30 Prot Sulfosalicylic Acd Negative (Negative) 05/22/22 13:30 Urine Urobilinogen 4 mg/dL (Negative) H 05/22/22 13:30 Ur Leukocyte Esterase Negative (Negative) 05/22/22 13:30 Urine RBC None /hpf (0-2) 05/22/22 13:30 Urine WBC None /hpf (0-5) 05/22/22 13:30 Ur Squamous Epith Cells 0-4 /hpf (0-5) H 05/22/22 13:30 Amorphous Sediment 3+ /hpf 05/22/22 13:30 Urine Bacteria None /hpf (NONE) 05/22/22 13:30 Coronavirus 229E (PCR) Not detected (NOT DETECT) 05/22/22 12:39 SARS-CoV-2 (PCR) Not detected (NOT DETECT) 05/22/22 12:39 Discharge Plan Discharge Patient Disposition: Left Against Medical Advice Clinical Impression: Nausea, vomiting, and diarrhea, Hypokalemia, Hypomagnesemia, History of recent surgery Condition: Stable Prescriptions: No Action levothyroxine 50 mcg tablet 50 mcg PO QAM Qty: 30 0RF Rx Instructions: needs an appt with labs before more refills [place] 160-9-4.8 mcg/actuation HFA aerosol inhaler 2 inh inhalation BID Qty: 10.7 3RF ipratropium-albuterol 0.5 mg-3 mg(2.5 mg base)/3 mL solution for nebulization 3 ml inhalation Q4H PRN (Reason: wheezing) Qty: 180 3RF insulin glargine [Lantus U-100 Insulin] 100 unit/mL solution See Rx Instructions .ROUTE .COMPLEX Rx Instructions: 10 units qam and 40 units bedtime tizanidine 4 mg tablet 4 mg PO BID sumatriptan succinate [Imitrex] 50 mg Tablet 50 mg PO Q2H MDD 2 tabs PRN (Reason: Migraine Headache) spironolactone 25 mg tablet 25 mg PO BID levetiracetam 750 mg tablet 750 mg PO BID pantoprazole 40 mg tablet,delayed release (DR/EC) 40 - 80 mg PO DAILY PRN (Reason: Acid Reflux) albuterol sulfate 90 mcg/actuation HFA aerosol inhaler 1 inh inhalation Q6H PRN (Reason: shortness of breath or wheezing) Qty: 8.5 0RF lactulose 10 gram/15 mL solution 90 ml PO TID tenofovir disoproxil fumarate 300 mg tablet 300 mg PO BEDTIME lamotrigine 200 mg Tablet 200 mg PO BEDTIME lubiprostone [Amitiza] 24 mcg Capsule 24 mcg PO BID gabapentin 300 mg capsule 300 mg PO BID Creon 3,000-9,500- 15,000 unit capsule,delayed release(DR/EC) 1 cap PO TID naloxone [Narcan] 4 mg/actuation spray,non-aerosol See Rx Instructions .ROUTE .COMPLEX Qty: 1 0RF Rx Instructions: as directed intranasally prn zinc acetate 50 mg (zinc) Capsule 50 mg PO DAILY doxepin 10 mg Capsule 10 mg PO BEDTIME oxycodone 30 mg Tablet 30 mg PO TID Rx Instructions: rx filled 05/02/22 7d/s morphine 15 mg Tablet 15 mg PO BID PRN (Reason: Pain) Rx Instructions: 6 tabs must last 2 weeks Xifaxan 550 mg Tablet 550 mg PO BID cephalexin 500 mg Capsule 500 mg PO QID Qty: 20 0RF metoprolol tartrate 25 mg Tablet 12.5 mg PO BID@0900,2100 Qty: 30 0RF Referrals: Francisco Mckinley DO [Primary Care Provider] - Coding Level of Care Code ED [place] for 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
--- NOTE | 2022-05-22 11:33 | ECG_ITS ---
[facility] Test Date: 2022-05-22 Pat Name: Maribell Foreman Department: Room: Gender: Female Fisher [place]: : 1975 Requested By: Robert Rosa Order Number: [id number] Janett MD: Oseas Junior M.D. Measurements Intervals [place] Rate: 100 P: 87 WV: 158 QRS: 81 QRSD: 99 T: 68 QT: 347 QTc: 449 Interpretive Statements SINUS TACHYCARDIA RIGHT ATRIAL ENLARGEMENT [0.3mV P-WAVE] POSSIBLE LEFT ATRIAL ENLARGEMENT [-0.1mV P-WAVE IN V1/V2] MODERATE ST DEPRESSION [0.05+ mV ST DEPRESSION] Compared to ECG 05/11/2022 05:25:30 ST (T wave) deviation now present T-wave abnormality no longer present Electronically Signed On 05-22-2022 14:27:07 AUTOCUTTER by Oseas Junior M.D. [email or web address]
--- NOTE | 2022-05-22 11:41 | XRR_ITS ---
PROCEDURE INFORMATION: Exam: XR Chest Exam date and time: 05/22/2022 11:49 AM Age: 46 years old Clinical indication: Pain; Angina pectoris; Additional info: Cp TECHNIQUE: Imaging protocol: Radiologic exam of the chest. Views: 1 view. COMPARISON: CR (CHEST, ) 05/10/2022 6:17 PM FINDINGS: Tubes, catheters and devices: There is a dual-lead AICD with leads positioned in the right atrium and right ventricle. Lungs: There is ill-defined opacity in the mid to lower lungs bilaterally. There is no focal consolidation. Pleural spaces: There is no pleural effusion or pneumothorax. Heart/Mediastinum: Cardiomediastinal contours are unremarkable. Bones/joints: Bones are unremarkable. XR/XR chest 1V portable [id number] IMPRESSION: Nonspecific ground-glass opacity in the lower lungs bilaterally is new since 05/10/2022. Possible edema, infection, aspiration, or atelectasis.
[2022-05-22 12:40] LABS: Basophils % 0.6 %; Eosinophils # 0.1 10^3/uL (0.0-0.8); Eosinophils % 1.2 %; Hematocrit 39.5 % (37.0-47.0); Hemoglobin 13.2 g/dL (11.5-15.3); Lymphocytes # 1.1 10^3/uL (0.8-4.8); Lymphocytes % 22.4 %; Mean Corpuscular HGB Conc 33.4 g/dL (30.0-36.0); Mean Corpuscular Hemoglobin 30.3 pg (28.0-34.0); Mean Corpuscular Volume 90.6 fl (81-99); Mean Platelet Volume 10.6 fL (7.4-10.4); Monocytes # 0.5 10^3/uL (0.2-0.9); Monocytes % 10.4 %; Neutrophils # 3.31 10^3/uL (1.8-7.7); Neutrophils % 65.2 %; Nucleated Red Blood Cells % 0 %; Platelet Count 195 10^3/cmm (130-400); Red Blood Count 4.36 10^6/uL (4.1-5.3); Red Cell Distribution Width 12.7 % (12.1-15.1); White Blood Count 5.1 10^3/uL (4.0-10.0)
[2022-05-22] MEDS: HYDROmorphone 1 mg/mL INJ 1 mL 0.5 MG IVP (12:40)
[2022-05-22] MEDS: sodium chloride 0.9% 1,000 ML 999 ML IV (12:40)
[2022-05-22] MEDS: ondansetron 2 mg/ML SDV 2 mL 4 MG IVP ×2 (12:40→14:41)
[2022-05-22 12:41] VITALS: BP 156/87; PULSE 90; RESP 16; O2SAT 97
--- NOTE | 2022-05-22 12:58 | CT_ITS ---
WS: [id number] CT ABDOMEN PELVIS TECHNIQUE: Contrast-enhanced CT of the abdomen and pelvis with coronal and sagittal reformatted image s. CLINICAL INFORMATION: n/v COMPARISON: CT May 08, 2022 DLP: 1008.[address] scans at [facility] use at least one of these dose optimization techniques: automated e xposure control; mA and/or kV adjustment per patient size (includes targeted exams where dose is matc hed to clinical indication); or iterative reconstruction. FINDINGS: Lung bases are well aerated. Prior hysterectomy. Prior tubal ligation. Prior RIGHT hemicolectomy.Gall bladder is contracted. Dilated common bile duct measuring 13 mm unchanged. This can be followed up wi th MRCP. Previously described small bowel obstruction or adynamic ileus has resolved. Cirrhotic liver with portal hypertension. Normal pancreatic parenchymal enhancement. Splenomegaly. Sp lenic vein and SMV are patent. 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 Small indeterminate low-attenuation lesion RIGHT hepatic lobe inferiorly is unchanged. Normal caliber abdominal aorta. Mild aortic calcification. Celiac and SMA are patent. Proximal INA is paten t. Small RIGHT renal cyst measures 14 mm Serpiginous varices along the LEFT infrarenal abdominal pain and enlarged LEFT renal vein. Adrenal gl ands are normal. Normal renal parenchymal enhancement. No hydronephrosis. Anastomosis in the RIGHT mi dabdomen appears patent. CT/CT abdomen pelvis w con* [id number] IMPRESSION: 1. Recent postoperative changes RIGHT hemicolectomy. Anastomosis appears paten t. 2. Previously described adynamic ileus has resolved. 3. No other new findings. 4. Cirrhosis with portal hypertension and splenomegaly with varices described above.
[2022-05-22 13:09] LABS: Troponin(5th) Baseline 8 ng/L (0-10)
[2022-05-22] MEDS: iohexol 350 mg/mL 500 mL Btl (per mL) IV (13:10)
[2022-05-22 13:15] LABS: NT Pro B Type Natriuretic Pept 82 pg/mL (0-125); Procalcitonin 0.06 ng/mL (0-0.5); Thyroid Stimulating Hormone 0.51 uIU/mL (0.27-4.20)
[2022-05-22 13:27] LABS: Alanine Aminotransferase 10 U/L (0-33); Albumin Level 3.7 g/dL (3.5-5.2); Alkaline Phosphatase 91 U/L (35-105); Anion Gap 16.4 (5-19); Aspartate Amino Transferase 22 U/L (0-32); Blood Urea Nitrogen 8 mg/dL (6-20); C Reactive Protein 11.5 mg/L (0.0-4.9); Calcium 10.4 mg/dL (8.5-10.5); Carbon Dioxide 25 mmol/L (22-29); Chloride 100 mmol/L (98-107); Globulin 4.3 g/dL (1.3-4.6); Glomerular Filtration Rate 107.2 mL/min (90-130); Glucose 98 mg/dL (65-115); Lipase 35 U/L (13-60); Magnesium 1.6 mg/dL (1.7-2.3); Osmolality Calculated 284 mOsm/kg (285-295); Potassium 3.4 mmol/L (3.5-5.1); Sodium 138 mmol/L (136-145); Total Bilirubin 0.7 mg/dL (0.15-1.2)
[2022-05-22 13:51] LABS: Urine Color Light yellow (Yellow)
[2022-05-22 13:52] LABS: Add Urine Microscopic? YES; Bilirubin Urine Neg (Negative); Blood Urine Neg (Negative); Glucose Urine UA Norm (Normal); Ketones Urine Negative (Negative); Leukocyte Esterase Urine Negative (Negative); Nitrate Urine Negative (Negative); Protein Urine Neg (Negative); Urine Appearance Cloudy (CLEAR); Urobilinogen Urine 4 mg/dL (Negative); pH Urine 9 (5-7)
[2022-05-22 13:53] LABS: Add Urine Culture? No; Squamous Epithelial Cell Urine 0-4 /hpf (0-5); Sulfosalicylic Acid Urine Negative (Negative)
[2022-05-22 13:57] LABS: Amorphous Sediment Urine 3+ /hpf
[2022-05-22 14:01] LABS: HCG, Serum Qual Negative (Negative)
[2022-05-22] MEDS: potassium chloride ER 20 mEq Tablet 40 MEQ PO (14:01)
[2022-05-22] MEDS: morphine 4 mg/mL SDV 1 mL IVP (14:01)
[2022-05-22] MEDS: magnesium sulfate premix 2 GM/50 ML PIGGYBACK IV (14:01)
--- NOTE | 2022-05-22 14:35 | ECG_ITS ---
[facility] Test Date: 2022-05-22 Pat Name: Maribell Foreman Department: Room: Gender: Female Manager Corporate Communications: : 1975 Requested By: Robert Rosa Order Number: [id number] Rowland MD: Osesa Junior M.D. Measurements Intervals [place] Rate: 90 P: 82 DC: 168 QRS: 78 QRSD: 101 T: 83 QT: 369 QTc: 452 Interpretive Statements SINUS RHYTHM Electronically Signed On 05-22-2022 14:45:03 SKIN FORMER by Oseas Junior M.D. [id number]
[2022-05-22] MEDS: metoclopramide 5 mg/mL SDV 2 mL IVP (14:42)
[2022-05-22 14:43] VITALS: BP 177/108; PULSE 99; RESP 19; O2SAT 97
[2022-05-22 15:10] VITALS: BP 177/108; PULSE 99; RESP 19; O2SAT 97
[2022-05-22 16:31] LABS: Adenovirus Not Detected (NOT DETECT); Chlamydia Pneumoniae Not Detected (NOT DETECT); Coronavirus 229E,HKU1,NL63,OC4 Not Detected (NOT DETECT); Human Metapneumovirus Not Detected (NOT DETECT); Human Rhinovirus/Enterovirus Not Detected (NOT DETECT); Influenza A Not Detected (NOT DETECT); Influenza A H1 Not Detected (NOT DETECT); Influenza A H1-2009 Not Detected (NOT DETECT); Influenza A H3 Not Detected (NOT DETECT); Influenza B Not Detected (NOT DETECT); Mycoplasma Pneumoniae Not Detected (NOT DETECT); Parainfluenza Virus Type 1 Not Detected (NOT DETECT); Parainfluenza Virus Type 2 Not Detected (NOT DETECT); Parainfluenza Virus Type 3 Not Detected (NOT DETECT); Parainfluenza Virus Type 4 Not Detected (NOT DETECT); Respiratory Syncytial Virus A Not Detected (NOT DETECT); Respiratory Syncytial Virus B Not Detected (NOT DETECT); SARS-COV-2 Not Detected (NOT DETECT)
== END 2022-05-22 15:11 | disposition left against medical advice (07) ==
PROVIDERS: Emergency Provider Emergency Medicine; PCP Family Medicine
DX: R11.2 Nausea with vomiting, unspecified (principal); R19.7 Diarrhea, unspecified; E87.6 Hypokalemia; E83.42 Hypomagnesemia; Z53.21 Procedure and treatment not carried out due to patient leaving prior to being seen by health care provider; Z79.4 Long term (current) use of insulin; Z20.822 Contact with and (suspected) exposure to COVID-19; Z87.891 Personal history of nicotine dependence; Z86.19 Personal history of other infectious and parasitic diseases; J44.9 Chronic obstructive pulmonary disease, unspecified; E11.9 Type 2 diabetes mellitus without complications; I10 Essential (primary) hypertension; Z85.028 Personal history of other malignant neoplasm of stomach; R11.11 Vomiting without nausea; Z95.810 Presence of automatic (implantable) cardiac defibrillator
CPT/HCPCS: 36415; 71045; 74177; 80053; 81001; 83690; 83735; 83880; 84145; 84443; 84484; 84703; 85025; 86140; 87040; 87635; 93005; 96374; 96375; 96376; 99285; J1170; J2270; J2405; J2765; J3475; J7030; Q9967

== ENCOUNTER → 2022-06-06 09:02 | Outpatient (BNVA) | payer MEDICAID, SELFPAY | PROVIDERS: PCP Family Medicine; Visit Provider Nurse Practitioner Family | DX: Z95.0 Presence of cardiac pacemaker (principal) | CPT/HCPCS: 93288; 99024; 99213 ==

== ENCOUNTER 2022-06-10 07:00 | Observation (INO) | payer MEDICAID, SELFPAY ==
[2022-06-09] VITALS (8 sets, daily range): BP systolic 108–140; BP diastolic 70–94; PULSE 64–81; RESP 14–18; TEMP 36.1–36.7; O2SAT 93–96; BMI 32.8
--- NOTE | 2022-06-09 10:15 | W.PM.OPSUD ---
Surgery/Procedure H&P Update DATE OF PROCEDURE: June 09, 2022 DATE H&P PERFORMED: 06/06/22 H&P UPDATE INFORMATION: I have reviewed H&P completed within last 30 days, I have examined patient prior to procedure and No changes to prior documentation PREOP DIAGNOSIS: micro dislodgement of the RV lead PRIMARY INDICATION FOR PROCEDURE: Sinus node dysfunction/symptomatic bradycardia/ RV lead micro dislodgement PLANNED PROCEDURE: Operation Date: 06/09/22 10:00 Proposed Procedures p Lead Revision [id number],Z95.0, R06.00(Not Applicable) - Suzy Wyman MD PATIENT REASSESSED PRIOR TO SEDATION, WITH NO CHANGE NOTED: Yes AIRWAY EVAL/ANESTHESIA PLAN: normal airway, see other exam findings, ASA III, Monitored Anesthesia, Local Anesthesia, Risks, benefits & alternatives of sedation and/or procedure discussed and Patient agrees to continue as planned
--- NOTE | 2022-06-09 12:29 | PM.OP ---
Operative Report Date of procedure: June 09, 2022 Pre-op diagnosis: Preop Diagnosis micro dislodgement of the RV lead Procedure: PROCEDURE: PACEMAKER REVISION PREOPERATIVE DIAGNOSIS: Micro dislodgment of RV lead POSTOPERATIVE DIAGNOSIS: Same as above ESTIMATED BLOOD LOSS: None COMPLICATIONS: None. BRIEF HISTORY: The patient is 46-year-old white female who had a permanent pacemaker implantation for symptomatic bradycardia/sinus alfredo dysfunction. The patient was found to have very low RV sensing, during during her office followup evaluation. The patient apparently was working in the garden and and was not limiting the left shoulder movements. For further management of patient's condition for the symptomatic bradycardia, the patient required lead repositioning. The procedure was explained to the patient with the risks and benefits. The risks of bleeding, hematoma, vascular injury, infection and other concomitant complications were explained in detail, which the patient understood well and consented to proceed. PROCEDURES PERFORMED: 1. Repositioning of the ventricular lead 2. Added more slack to the atrial lead The patient brought to the Cardiac Fitness/Wellness Director. The left side of the neck and the subclavian area were cleaned and draped in a sterile fashion. 1% Xylocaine was used for local anesthetic agent. A 2 inch long incision was made over the previous pacemaker incision scar.. By sharp and blunt dissection, the pacemaker pocket was accessed. The generator was delivered from the pocket. The generator was detached from the leads. The ventricular lead was released by removing the stay sutures. After retracting the helix, the lead was repositioned under fluoroscopic guidance towards the LV apex. Good pacing and sensing thresholds were obtained. The lead was secured to pectoral fascia by suturing with 0 Surgilon. The atrial lead was released by removing the stay suture. More slack was added using a stylet. Both atrial and ventricular leads were retested and was found to have good sensing and pacing function. The pocket was copiously irrigated with vancomycin solution. The generator was placed in an antibiotic pouch. The leads were positioned behind the generator and the generator was attached to the pectoralis fascia by suturing with a 0 Surgilon. Sponge counts were confirmed. The pacemaker pocket was closed in layers. Skin was approximated using 4-0 Vicryl. IMPLANTED DEVICES: Ventricular Lead: Date of implantation: 05/10/2022 Model number: 5076/58 Serial number: [id number] Make: [employer]. Atrial lead Date of implantation: 05/10/2022 Model number: 5076/[id number] Serial number: [id number] Make: Medtronic. Implanted Generator: Date of implantation : 05/10/2022 Brand: Yaritza XT DR EN Wilkinson Model number: [id number] Serial number: [id number] Make: Medtronic Stimulation Threshold: The ventricular sensing was 13.0 millivolts. Ventricular lead impedance was 570 ohms and the pacing threshold was 0.5 volts at 0.4 milliseconds. The atrial sensing was 5.5 millivolts. Atrial lead impedance was 399 ohms and the pacing threshold was 0.75 volts at 0.4 milliseconds. The pacemaker was set for AAIR/DDDR mode with an upper rate of 140 and a lower rate of 60. A pressure dressing was applied over the pacemaker site. The patient was transferred back to medical floor in stable condition. Sponge counts were correct.
[2022-06-09] MEDS: sodium chloride 0.9% 1,000 ML 75 ML IV ×2 (14:40→21:13)
[2022-06-09] MEDS: oxyCODONE IR 30 mg Tablet PO ×2 (14:42→21:14)
[2022-06-09] MEDS: lactulose oral liq 20 gm/30 mL UDC 60 GM PO ×2 (14:43→21:14)
[2022-06-09] MEDS: ipratropium-albuterol 3 mL Neb INHALATION (15:25)
[2022-06-09] MEDS: levETIRAcetam 500 mg Tablet 750 MG PO (17:36)
[2022-06-09] MEDS: ceFAZolin 2,000 MG in sodium chloride 0.9% (plus) 50 ML 100 MG IV (17:36)
[2022-06-09] MEDS: spironolactone 25 mg Tablet PO (17:37)
[2022-06-09] MEDS: tizanidine 4 mg Tablet PO (17:37)
[2022-06-09] MEDS: gabapentin 300 mg Capsule PO (17:37)
[2022-06-09] MEDS: morphine IR 15 mg Tablet PO (17:41)
--- NOTE | 2022-06-09 18:10 | PC.NURSE ---
ION EXCHANGE OPERATOR NOTIFIED THIS RN THAT PATIENT WAS VAPING IN HER ROOM. PATIENT EDUCATED ON HOSPITAL POLICY OF NOT VAPING IN THE HOSPITAL. PATIENT STATED THAT SHE DID NOT RECALL VAPING, BUT SHE VERBALIZED UNDERSTANDING. DIRECTED PATIENT TO PUT THE VAPE IN HER BAG AWAY FROM BEDSIDE.
[2022-06-09] MEDS: doxepin 10 mg Capsule PO (21:13)
[2022-06-09] MEDS: lamoTRIgine 100 mg Tablet 200 MG PO (21:14)
[2022-06-09] MEDS: metoprolol tartrate 25 mg Tablet 12.5 MG PO (21:18)
[2022-06-10 00:23] VITALS: BP 126/82; PULSE 67; RESP 18; TEMP 36.6
[2022-06-10] MEDS: ceFAZolin 2,000 MG in sodium chloride 0.9% (plus) 50 ML 100 MG IV ×2 (01:35→09:24)
[2022-06-10 04:00] VITALS: BP 126/82; PULSE 110; RESP 18; TEMP 36.4; O2SAT 92
[2022-06-10] MEDS: levothyroxine 50 mcg Tablet PO (05:34)
[2022-06-10 08:00] VITALS: BP 118/71; PULSE 68; RESP 15; TEMP 36.9; O2SAT 94
[2022-06-10 08:57] VITALS: PULSE 72; RESP 16; O2SAT 98
[2022-06-10] MEDS: ipratropium-albuterol 3 mL Neb INHALATION ×2 (08:59→12:41)
[2022-06-10] MEDS: budesonide 0.5 mg/2 mL Neb INHALATION (08:59)
[2022-06-10 09:05] VITALS: PULSE 73
[2022-06-10] MEDS: tizanidine 4 mg Tablet PO (09:15)
[2022-06-10] MEDS: levETIRAcetam 500 mg Tablet 750 MG PO (09:15)
[2022-06-10] MEDS: zinc gluconate 50 mg Tablet PO (09:16)
[2022-06-10] MEDS: oxyCODONE IR 30 mg Tablet PO (09:18)
[2022-06-10] MEDS: spironolactone 25 mg Tablet PO (09:18)
[2022-06-10] MEDS: gabapentin 300 mg Capsule PO (09:18)
[2022-06-10] MEDS: metoprolol tartrate 25 mg Tablet 12.5 MG PO (09:22)
--- NOTE | 2022-06-10 09:24 | XRR_ITS ---
PROCEDURE INFORMATION: Exam: XR Chest Exam date and time: 06/10/2022 8:51 AM Age: 46 years old Clinical indication: Pain; Chest pressure; Additional info: Chest pain TECHNIQUE: Imaging protocol: Radiologic exam of the chest. Views: 1 view. COMPARISON: CR XR chest 1V portable [id number] 05/22/2022 11:49 AM FINDINGS: Tubes, catheters and devices: Cardiac rhythm maintenance device is in place. Lungs: Bibasilar airspace opacities, new from 05/22/2022. Pleural spaces: Unremarkable. No pleural effusion. No pneumothorax. Heart/Mediastinum: Unremarkable. No cardiomegaly. Bones/joints: Unremarkable. XR/XR chest 1V portable [id number] IMPRESSION: Bibasilar airspace opacities, new from 05/22/2022, may reflect atelectasis versus pneumonia.
--- NOTE | 2022-06-10 11:40 | P.DS_ITS ---
Discharge Providers Date of Admission: 06/09/22 07:00 Date of Discharge: June 10, 2022 Attending Provider at Admission: Dr Wyman Attending Provider at Discharge: Oseas Junior M.D Primary Care Provider: Francisco Mckinley DO Reason for Visit Reason for Visit: Z95.0, R06.00 Brief History: 46-year-old woman who had a recent pacemaker placement and had right ventricular lead micro dislodgment presented for repositioning of the lead. Hospital Course Hospital Course Patient had successful procedure. She stayed stable overnight. In the morning she had some discomfort in the chest. Chest x-ray was performed that had no major abnormality. Patient was discharged home in a stable condition. Physical Exam Narrative: GENERAL: Patient is alert, awake and oriented x3. [] NECK: No jugular vein distension. [] HEENT: No cyanosis. No icterus. No pallor. [] HEART: Regular S1 and S2. No murmur, rub or gallop. [] LUNGS: Clear to auscultate bilaterally. [] CENTRAL NERVOUS SYSTEM: Grossly nonfocal. [] EXTREMITIES: Lower extremities with 1+ edema bilaterally. Pulses palpable in the lower extremities, both dorsalis pedis and posterior tibial. [] Discharge Data Studies Completed and Pending Completed Studies During Hospitalization Category Date Time Status AGRICULTURAL RESEARCH TECHNOLOGIST request for service Routine Exams 06/09/22 06:33 Completed CXRP [XR chest 1V portable [id number]] Routine Exams 06/10/22 09:24 Completed Pending at discharge Category Date Time Status CBC Auto Diff [Complete Blood Count w/Auto] Routine Lab 06/10/22 09:24 Ordered Radiology Impressions Chest X-Ray 06/10/22 09:24 IMPRESSION: Bibasilar airspace opacities, new from 05/22/2022, may reflect atelectasis versus pneumonia. Vitals Last Vital Signs Temp 98.4 F 06/10/22 08:00 Pulse 73 06/10/22 09:05 Resp 16 06/10/22 08:57 BP 118/71 06/10/22 08:00 Pulse Ox 98 06/10/22 08:57 O2 Del Method 06/10/22 08:57 Discharge Plan Discharge Patient Disposition: Home Condition: Stable Prescriptions: New cephalexin 500 mg capsule 500 mg PO Q6H Qty: 20 0RF multivitamin Tablet 1 tab PO DAILY Qty: 14 0RF Continued cholecalciferol (vitamin D3) 1,250 mcg (50,000 unit) capsule 1,250 mcg PO .weekly levothyroxine 50 mcg tablet 50 mcg PO QAM Qty: 30 0RF Rx Instructions: needs an appt with labs before more refills Garry Serranophere 160-9-4.8 mcg/actuation HFA aerosol inhaler 2 inh inhalation BID Qty: 10.7 3RF ipratropium-albuterol 0.5 mg-3 mg(2.5 mg base)/3 mL solution for nebulization 3 ml inhalation Q4H PRN (Reason: wheezing) Qty: 180 3RF insulin glargine [Lantus U-100 Insulin] 100 unit/mL solution See Rx Instructions .ROUTE .COMPLEX Rx Instructions: 10 units qam and 40 units bedtime tizanidine 4 mg tablet 4 mg PO BID sumatriptan succinate [Imitrex] 50 mg Tablet 50 mg PO Q2H MDD 2 tabs PRN (Reason: Migraine Headache) spironolactone 25 mg tablet 25 mg PO BID levetiracetam 750 mg tablet 750 mg PO BID pantoprazole 40 mg tablet,delayed release (DR/EC) 40 - 80 mg PO DAILY PRN (Reason: Acid Reflux) albuterol sulfate 90 mcg/actuation HFA aerosol inhaler 1 inh inhalation Q6H PRN (Reason: shortness of breath or wheezing) Qty: 8.5 0RF lactulose 10 gram/15 mL solution 90 ml PO TID tenofovir disoproxil fumarate 300 mg tablet 300 mg PO BEDTIME lamotrigine 200 mg Tablet 200 mg PO BEDTIME lubiprostone [Amitiza] 24 mcg Capsule 24 mcg PO BID gabapentin 300 mg capsule 300 mg PO BID Creon 3,000-9,500- 15,000 unit capsule,delayed release(DR/EC) 1 cap PO TID naloxone [Narcan] 4 mg/actuation spray,non-aerosol See Rx Instructions .ROUTE .COMPLEX Qty: 1 0RF Rx Instructions: as directed intranasally prn zinc acetate 50 mg (zinc) Capsule 50 mg PO DAILY doxepin 10 mg Capsule 10 mg PO BEDTIME oxycodone 30 mg Tablet 30 mg PO TID Rx Instructions: rx filled 05/02/22 7d/s morphine 15 mg Tablet 15 mg PO BID PRN (Reason: Pain) Rx Instructions: 6 tabs must last 2 weeks Xifaxan 550 mg Tablet 550 mg PO BID metoprolol tartrate 25 mg Tablet 12.5 mg PO BID@0900,2100 Qty: 30 0RF Discharge Orders: Discharge Order (Routine); Ordered 06/10/22 Ordered By: Oseas Junior Referrals: Suzy Wyman MD [Physician] - 1 month (Sent message to clinic.) Donita Martinez FNP [Nurse Practitioner] - 4-7 days (Sent message to clinic.) Francisco Mckinley DO [Primary Care Provider] - 4-7 days (Requested they call patient with appointment information.) Discharge Diet: Cardiac Discharge Activity: Limit activity as instructed Patient Instructions: Cephalexin (By mouth), Multivitamins and Fluoride (By mouth), Pacemaker (DC), Opioid Safety, Post Pacemaker - Garo Activity Restrictions/Additional Instructions: Limit the movements of the left shoulder to 45 degrees for 6 weeks Avoid any weightbearing on the left elbow for 6 weeks Keflex 500 mg p.o. every 6 hours for 5 days Multivitamin 1 tablet p.o. daily for 2 weeks Keep the area clean and dry Appointment the [facility] to be seen by the nurse practitioner in 1 week Appointment with me in the office in 1 month Discharge Attestations Time Spent in Discharge Care*: less than 30 min Quality Metrics Clinical Quality Measures [ No reported AMI, CVA or VTE this stay] Coding Level of Care Code Acute Code for Chg Fwd
[2022-06-10 12:00] VITALS: BP 122/80; PULSE 66; RESP 14; TEMP 37.2; O2SAT 96
== END 2022-06-10 14:31 | disposition home or self-care (01) ==
PROVIDERS: Internal Medicine Cardiovascular Disease; Admitting Provider Internal Medicine; PCP Family Medicine; Visit Provider Internal Medicine
DX: T82.110A Breakdown (mechanical) of cardiac electrode, initial encounter (principal); Y83.8 Other surgical procedures as the cause of abnormal reaction of the patient, or of later complication, without mention of misadventure at the time of the procedure; J44.9 Chronic obstructive pulmonary disease, unspecified; Z99.81 Dependence on supplemental oxygen; E11.9 Type 2 diabetes mellitus without complications; I10 Essential (primary) hypertension; E03.9 Hypothyroidism, unspecified
CPT/HCPCS: 33215; 36415; 71045; 94640; 96361; 96365; 96367; 97165; 97535; 99152; 99153; A4216; C1769; G0378; J0690; J1815; J2250; J3010; J3370; J7030; J7050; J7626

== ENCOUNTER → 2022-06-16 09:26 | Outpatient (BNVA) | payer MEDICAID, SELFPAY | PROVIDERS: PCP Family Medicine; Visit Provider Specialist | DX: I49.5 Sick sinus syndrome (principal) | CPT/HCPCS: 99213 ==

== ENCOUNTER 2022-09-07 13:43 | Inpatient (IN) | payer MEDICAID, SELFPAY ==
[2022-09-07] VITALS (10 sets, daily range): BP systolic 166–174; BP diastolic 111–121; PULSE 101–133; RESP 13–22; TEMP 37.2; O2SAT 96–99; BMI 30.4
--- NOTE | 2022-09-07 14:06 | ECG_ITS ---
[facility] Test Date: 2022-09-07 Pat Name: Maribell Foreman Department: Room: Gender: Female Staff Psychologist: : 1975 Requested By: Lane Boles Order Number: [id number] Janett MD: Pat Gaitan M.D. Measurements Intervals [place] Rate: 127 P: 74 [place]: 139 QRS: 70 QRSD: 102 T: 64 QT: 351 QTc: 512 Interpretive Statements SINUS TACHYCARDIA NONSPECIFIC ST & T-WAVE ABNORMALITY ABNORMAL RHYTHM ECG Compared to ECG 05/22/2022 14:35:59 T-wave abnormality now present Sinus rhythm no longer present Electronically Signed On 09-07-2022 15:59:13 CDT by Pat Gaitan M.D. [id number]
--- NOTE | 2022-09-07 14:13 | XR_ITS ---
WS: [id number] EXAMINATION: XR chest 1V portable [id number] REASON FOR EXAM: dyspnea/cough COMPARISON: 06/10/2022 ORDER DATE: 09/07/2022 2:13 PM TECHNIQUE: A single, portable frontal chest x-ray was obtained. X-RAY FINDINGS: There is mild peribronchial cuffing, with basilar interlobular septal thickening.. Pleural spaces are clear. No pleural effusions or pneumothorax. Cardiomediastinal silhouette is normal. Soft tissue and osseous structures are unremarkable. Left sided pacemaker noted.. XR/XR chest 1V portable [id number] IMPRESSION: Clinical correlation suggested for early hypostatic basal pulmonary interstitia l edema.
--- NOTE | 2022-09-07 14:13 | CT_ITS ---
WS: [id number] CT HEAD TECHNIQUE: Noncontrast CT of the head obtained from the skullbase to the vertex. CLINICAL INFORMATION: AMS COMPARISON: November 19, 2021 DLP: 1147.[address] scans at [facility] use at least one of these dose optimization techniques: automated e xposure control; mA and/or kV adjustment per patient size (includes targeted exams where dose is matc hed to clinical indication); or iterative reconstruction. FINDINGS: No evidence of intracranial hemorrhage or mass effect. Ventricular system and basal cisterns are aquino nt. No extra-axial fluid collections. No evidence of mass or mass effect. Normal villatoro-white different iation. Paranasal sinuses and mastoid air cells are well aerated. .Normal visualized soft tissues. CT/CT head wo con* [id number] IMPRESSION: 1. No evidence of intracranial hemorrhage or mass effect. 2. No acute intracranial findings.
--- NOTE | 2022-09-07 14:15 | ED_ITS ---
HPI - Chest Pain General: Chief Complaint: Chest Pain Stated Complaint: chest pain Time Seen by Provider: 09/07/22 14:06 Source: patient and EMS History of Present Illness: 46-year-old female presents emergency room with complaints of chest pain. EMS reports they were called for chest pain and abdominal pain on arrival here she is confused and disoriented she does know she lives at home she cannot really tell me why she is here she thinks she is at the doctor's office. She denies difficulty breathing. She is diabetic. She also has a history of seizures there is no report of any seizure activity in the field. She has stool on her feet when asked she does admit to having had diarrhea recently. MD complaint: chest pain Onset (ago): unknown Severity: moderate Relieving factors: nothing Exacerbating factors: nothing Associated symptoms: Deny abdominal pain, diaphoresis, dyspnea, fever(s), leg edema, nausea, palpitations, sense of impending doom, syncope or vomiting Review of Systems Const: Denies: fever(s), chills, fatigue, malaise or diaphoresis ENMT: Denies: throat pain, ear or mastoid pain, nasal discharge or nasal congestion Card: Denies: palpitations or syncope Resp: Denies: dyspnea GI: Denies: abdominal pain, nausea or vomiting : Denies: flank pain, difficulty voiding, dysuria, urinary frequency or urinary urgency Skin/Breast: Denies: rash or pruritus PFSH ED PFSH: Medical History (Updated 09/08/22 @ 16:[address] DO) Accidental fentanyl overdose Bilateral pulmonary embolism Cardiac arrest Chronic abdominal pain Chronic hepatitis B Chronic hip pain Cirrhosis COPD (chronic obstructive pulmonary disease) Chronically on 3 L of oxygen Diabetes mellitus Encephalopathy Gastroesophageal reflux GI bleeding Hepatitis B Hypertension Hypothyroidism Leg cramps skilled nursing (current) use of opiate analgesic Overdose Pain management contract signed Pelvic inflammatory disease Pulmonary embolism Stomach cancer Thrombocytopenia Tobacco dependency Surgical History H/O tubal ligation History of hysterectomy History of laparotomy History of right hemicolectomy Family History Mother Diabetes Father CAD (coronary artery disease) Other Cancer Social History Smoking and tobacco status: former smoker Quit status (tobacco): has quit using tobacco Year quit tobacco: 2020 Former quit date comment: 2ppd x 26 year Hx Alcohol intake: never Substance/Drug Use: never Course Vital Signs: Vital signs: Vital Signs Temperature 98.9 F 09/07/22 14:03 Pulse Rate 91 09/08/22 10:08 Respiratory Rate 15 09/08/22 10:08 Blood Pressure 181/120 09/08/22 10:08 Pulse Oximetry 93 09/08/22 07:55 Oxygen Delivery Me thod Room Air 09/08/22 07:55 MDM - Chest Pain Medical Decision Making Patient has elevated lactic acid. She has a history of drug abuse in the past. She is disoriented. White count is elevated this could be from a breakthrough seizure or could be from infection cultures done we will start antibiotics admit to ICU and monitor to further evaluate. Discussed Dr. Majano orders written. Lab Data 09/08/22 02:17 09/08/22 02:50 Radiology Impressions Chest X-Ray 09/07/22 14:13 IMPRESSION: Clinical correlation suggested for early hypostatic basal pulmonary interstitial edema. Head CT 09/07/22 14:13 IMPRESSION: 1. No evidence of intracranial hemorrhage or mass effect. 2. No acute intracranial findings. Abdomen/Pelvis CT 09/07/22 15:08 IMPRESSION: 1. Cirrhotic liver with portal hypertension and upper abdominal varices. 2. No ascites. 3. Splenomegaly. 4. Normal caliber abdominal aorta. 5. Sigmoid diverticulosis. No evidence of acute diverticulitis. 6. No acute findings and no significant changes since May 22, 2022. Chest CTA 09/08/22 08:48 IMPRESSION: 1. No evidence of pulmonary embolus. 2. No acute pulmonary infiltrates. 3. No acute chest findings. Laboratory Results WBC 13.0 10^3/uL (4.0-10.0) H 09/07/22 14:30 RBC 4.89 10^6/uL (4.1-5.3) 09/07/22 14:30 Hgb 14.8 g/dL (11.5-15.3) 09/07/22 14:30 Hct 42.4 % (37.0-47.0) 09/07/22 14:30 MCV 86.7 fl (81-99) 09/07/22 14:30 MCH 30.3 pg (28.0-34.0) 09/07/22 14:30 MCHC 34.9 g/dL (30.0-36.0) 09/07/22 14:30 RDW 14.2 % (12.1-15.1) 09/07/22 14:30 Plt Count 149 10^3/cmm (130-400) 09/07/22 14:30 MPV 10.2 fL (7.4-10.4) 09/07/22 14:30 Neut % (Auto) 93.1 % 09/07/22 14:30 Lymph % (Auto) 3.1 % 09/07/22 14:30 [place] % (Auto) 2.9 % 09/07/22 14:30 Eos % (Auto) 0.2 % 09/07/22 14:30 Baso % (Auto) 0.3 % 09/07/22 14:30 Neut # (Auto) 12.12 10^3/uL (1.8-7.7) H 09/07/22 14:30 Lymph # (Auto) 0.4 10^3/uL (0.8-4.8) L 09/07/22 14:30 [place] # (Auto) 0.4 10^3/uL (0.2-0.9) 09/07/22 14:30 Eos # (Auto) 0.0 10^3/uL (0.0-0.8) 09/07/22 14:30 Baso # (Auto) 0.0 10^3/uL (0.0-0.1) 09/07/22 14:30 Nucleated RBC % (auto) 0 % 09/07/22 14:30 Nucleated RBCs # 0.0 /100WBC 09/07/22 14:30 Specimen Type Arterial 09/07/22 14:19 Sample Site Radial, left 09/07/22 14:19 ABG pH 7.48 (7.35-7.45) H 09/07/22 14:19 ABG pCO2 30.7 mmHg (35-45) L 09/07/22 14:19 ABG pO2 82.1 mmHg (80.0-100.0) 09/07/22 14:19 ABG HCO3 22.7 mmol/L (22-26) 09/07/22 14:19 ABG O2 Saturation 97.7 09/07/22 14:19 ABG Base Excess 0.1 mmol/L (-2.0-2.0) 09/07/22 14:19 Dusty Test Pos 09/07/22 14:19 A-a O2 Gradient 3.6 mmHg (5-10) L 09/07/22 14:19 Hematocrit 45.9 % (37-47) 09/07/22 14:19 Hgb O2 Saturation 95.6 % (95-100) 09/07/22 14:19 Carboxyhemoglobin 1.7 %THgb (0.4-20.1) 09/07/22 14:19 Methemoglobin 0.4 % (0.4-1.5) 09/07/22 14:19 Total Hemoglobin 15.0 g/dL (12-16) 09/07/22 14:19 Sodium 142.0 mmol/L (131-143) 09/07/22 14:19 Potassium 2.4 mmol/L (3.5-5.0) L 09/07/22 14:19 Glucose 111.0 mg/dL (70-115) 09/07/22 14:19 Ionized Calcium 1.2 mmol/L (1.1-1.4) 09/07/22 14:19 O2 Delivery Device Room air 09/07/22 14:19 FiO2 21.0 % 09/07/22 14:19 Public Address System Operator ID Cak 09/07/22 14:19 Sodium 140 mmol/L (136-145) 09/07/22 14:30 Potassium 2.5 mmol/L (3.5-5.1) L* 09/07/22 14:30 Chloride 105 mmol/L (98-107) 09/07/22 14:30 Carbon Dioxide 21 mmol/L (22-29) L 09/07/22 14:30 Anion Gap 16.5 (5-19) 09/07/22 14:30 BUN 11 mg/dL (6-20) 09/07/22 14:30 Creatinine 0.6 mg/dL (0.5-0.9) 09/07/22 14:30 GFR Calculation 107.2 mL/min (90-130) 09/07/22 14:30 Glucose 107 mg/dL (65-115) 09/07/22 14:30 Calculated Osmolality 290 mOsm/kg (285-295) 09/07/22 14:30 Lactic Acid 4.2 mmol/L (0.5-2.2) H* 09/07/22 14:30 Lactic Acid (Sepsis) 2.7 mmol/L (0.5-2.2) H 09/07/22 16:23 Calcium 9.5 mg/dL (8.5-10.5) 09/07/22 14:30 Total Bilirubin 1.0 mg/dL (0.15-1.2) 09/07/22 14:30 AST 31 U/L (0-32) 09/07/22 14:30 ALT 30 U/L (0-33) 09/07/22 14:30 Alkaline Phosphatase 105 U/L (35-105) 09/07/22 14:30 Ammonia 75 umol/L (11-51) H 09/07/22 16:23 Creatine Kinase 124 U/L (26-192) 09/07/22 14:30 Troponin T Baseline 24 ng/L (0-10) H 09/07/22 14:30 Troponin T 120 Minute 22.58 ng/L (0-10) H 09/07/22 16:23 Delta Troponin T -1.42 ABS# (0-10) L 09/07/22 16:23 Total Protein 7.3 g/dL (6.6-8.7) 09/07/22 14:30 Albumin 3.5 g/dL (3.5-5.2) 09/07/22 14:30 Globulin 3.8 g/dL (1.3-4.6) 09/07/22 14:30 Lipase 40 U/L (13-60) 09/07/22 14:30 Vitamin B12 587 pg/mL (232-1245) 09/07/22 16:23 Procalcitonin 4.22 ng/mL (0-0.5) H 09/07/22 16:23 TSH 0.50 uIU/mL (0.27-4.20) 09/07/22 16:23 Prolactin 26.04 ng/mL (4.8-23.3) H 09/07/22 16:23 Urine Color Yellow (Yellow) 09/07/22 15:31 Urine Appearance Clear (CLEAR) 09/07/22 15:31 Urine pH 7 (5-7) 09/07/22 15:31 Ur Specific [place] 1.010 (1.005-1.030) 09/07/22 15:31 Urine Protein Neg (Negative) 09/07/22 15:31 Urine Glucose (UA) Norm (Normal) 09/07/22 15:31 Urine Ketones Negative (Negative) 09/07/22 15:31 Urine Blood Neg (Negative) 09/07/22 15:31 Urine Nitrate Negative (Negative) 09/07/22 15:31 Urine Bilirubin Neg (Negative) 09/07/22 15:31 Urine Urobilinogen Norm mg/dL (Negative) 09/07/22 15:31 Ur Leukocyte Esterase Negative (Negative) 09/07/22 15:31 Salicylates < 0.3 mg/dL (3-10) L 09/07/22 14:30 Urine Opiates Screen Negative ng/mL (Negative) 09/07/22 15:31 Acetaminophen < 5.0 ug/mL (10-30) L 09/07/22 14:30 Ur Barbiturates Screen Negative ng/mL (Negative) 09/07/22 15:31 Ur Phencyclidine Scrn Negative ng/mL (Negative) 09/07/22 15:31 Ur Amphetamines Screen Negative ng/mL (Negative) 09/07/22 15:31 U Benzodiazepines Scrn Negative ng/mL (Negative) 09/07/22 15:31 Urine Cocaine Screen Negative ng/mL (Negative) 09/07/22 15:31 U Marijuana (THC) Screen Positive ng/mL (Negative) H 09/07/22 15:31 Ethyl Alcohol < 10 mg/dL (0-10) 09/07/22 14:30 Serum Ketones Negative (Negative) 09/07/22 14:30 Discharge Plan Discharge Patient Disposition: Admitted As Inpatient Admit Provider: Suki Majano Clinical Impression: Seizure disorder, Diabetes mellitus, Metabolic encephalopathy, Hypokalemia Condition: Stable Coding Level of Care Code ED Customer Counter Representative for 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
[2022-09-07] MEDS: sodium chloride 0.9% 1,000 ML 999 ML IV ×2 (14:30→14:36)
[2022-09-07] MEDS: ondansetron 2 mg/ML SDV 2 mL 4 MG IVP ×2 (14:31→19:28)
[2022-09-07 14:43] LABS: Basophils % 0.3 %; Eosinophils % 0.2 %; Hematocrit 42.4 % (37.0-47.0); Hemoglobin 14.8 g/dL (11.5-15.3); Lymphocytes # 0.4 10^3/uL (0.8-4.8); Lymphocytes % 3.1 %; Mean Corpuscular HGB Conc 34.9 g/dL (30.0-36.0); Mean Corpuscular Hemoglobin 30.3 pg (28.0-34.0); Mean Corpuscular Volume 86.7 fl (81-99); Mean Platelet Volume 10.2 fL (7.4-10.4); Monocytes # 0.4 10^3/uL (0.2-0.9); Monocytes % 2.9 %; Neutrophils # 12.12 10^3/uL (1.8-7.7); Neutrophils % 93.1 %; Nucleated Red Blood Cells % 0 %; Platelet Count 149 10^3/cmm (130-400); Red Blood Count 4.89 10^6/uL (4.1-5.3); Red Cell Distribution Width 14.2 % (12.1-15.1)
[2022-09-07 14:50] LABS: Ketone (Acetest) Serum Negative (Negative)
[2022-09-07 15:02] LABS: Lactic Sepsis W/Reflex 4.2 mmol/L (0.5-2.2)
[2022-09-07 15:04] LABS: Troponin(5th) Baseline 24 ng/L (0-10)
--- NOTE | 2022-09-07 15:08 | CT_ITS ---
WS: [id number] CT ABDOMEN PELVIS TECHNIQUE: Noncontrast CT of the abdomen and pelvis with coronal and sagittal reformatted images. CLINICAL INFORMATION: Abdominal pain COMPARISON: CT abdomen pelvis May 22, 2022 DLP: 1154.[address] scans at [facility] use at least one of these dose optimization techniques: automated e xposure control; mA and/or kV adjustment per patient size (includes targeted exams where dose is matc hed to clinical indication); or iterative reconstruction. FINDINGS: Cirrhotic liver with evidence of portal hypertension. Splenomegaly. Low-attenuation lesion RIGHT hepa tic lobe inferiorly is unchanged. Noncontrast gallbladder appears normal. Mild stable dilatation comm on bile duct measuring 12 mm. Normal GE junction. No ascites. Noncontrast pancreas appears normal. Up per abdominal varices. Prior postoperative changes RIGHT hemicolectomy. Prior hysterectomy and tubal ligation. Normal calibe r abdominal aorta. Mild aortic calcification. Small RIGHT renal cyst measures 14 mm. Calcified granul yamel RIGHT lower lobe. No hydronephrosis in either kidney. Urine distended bladder. A few sigmoid diverticuli. No evidence of acute diverticulitis. RIGHT hemico lectomy anastomosis appears patent. CT/CT abdomen pelvis wo con [id number] IMPRESSION: 1. Cirrhotic liver with portal hypertension and upper abdominal varices. 2. No ascites. 3. Splenomegaly. 4. Normal caliber abdominal aorta. 5. Sigmoid diverticulosis. No evidence of acute diverticulitis. 6. No acute findings and no significant changes since May 22, 2022.
[2022-09-07 15:13] LABS: Alanine Aminotransferase 30 U/L (0-33); Albumin Level 3.5 g/dL (3.5-5.2); Alkaline Phosphatase 105 U/L (35-105); Anion Gap 16.5 (5-19); Aspartate Amino Transferase 31 U/L (0-32); Blood Urea Nitrogen 11 mg/dL (6-20); Calcium 9.5 mg/dL (8.5-10.5); Carbon Dioxide 21 mmol/L (22-29); Chloride 105 mmol/L (98-107); Creatine Phosphokinase 124 U/L (26-192); Globulin 3.8 g/dL (1.3-4.6); Glomerular Filtration Rate 107.2 mL/min (90-130); Glucose 107 mg/dL (65-115); Lipase 40 U/L (13-60); Osmolality Calculated 290 mOsm/kg (285-295); Sodium 140 mmol/L (136-145); Total Protein 7.3 g/dL (6.6-8.7)
[2022-09-07 15:16] LABS: Acetaminophen < 5.0 ug/mL (10-30); Alcohol Level < 10 mg/dL (0-10); Salicylate < 0.3 mg/dL (3-10)
[2022-09-07 15:18] LABS: Potassium 2.5 mmol/L (3.5-5.1)
[2022-09-07] MEDS: potassium chloride premix 100 ML 25 MEQ IV (15:35)
[2022-09-07 15:40] LABS: Add Urine Microscopic? NO; Charge for UA Resulting for Rev
[2022-09-07 15:44] LABS: Bilirubin Urine Neg (Negative); Blood Urine Neg (Negative); Glucose Urine UA Norm (Normal); Ketones Urine Negative (Negative); Leukocyte Esterase Urine Negative (Negative); Nitrate Urine Negative (Negative); Protein Urine Neg (Negative); Urine Appearance Clear (CLEAR); Urine Color Yellow (Yellow); Urobilinogen Urine Norm (Negative); pH Urine 7 (5-7)
[2022-09-07 15:53] LABS: Amphetamines Screen Urine Negative (Negative); Barbiturates Screen Urine Negative (Negative); Benzodiazepines Screen Urine Negative (Negative); Cocaine Screen Urine Negative (Negative); Opiate Screen Urine Negative (Negative); PCP Screen Urine Negative (Negative); THC Screen Urine Positive (Negative)
--- NOTE | 2022-09-07 16:00 | PC.PHAR ---
pt unable to verify medications -pt has been in custodial at [facility] [phone] pretty from [facility] the medications entered were the only medications the pt has been getting states the pt went to custodial on 08/30/22-pretty from [facility] states the pt was released 09/06/22-notes are made in the pharmacy comments
--- NOTE | 2022-09-07 16:07 | ECG_ITS ---
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 Measurements Intervals [place] Rate: 107 P: 78 WV: 157 QRS: 76 QRSD: 104 T: 71 QT: 341 QTc: 456 Interpretive Statements SINUS TACHYCARDIA POSSIBLE RIGHT ATRIAL ENLARGEMENT [0.25mV P-WAVE] LEFT ATRIAL ENLARGEMENT [-0.15mV P-WAVE IN V1/V2] Compared to ECG 09/07/2022 14:06:22 Atrial abnormality now present T-wave abnormality no longer present Electronically Signed On 09-08-2022 8:46:28 CDT by Oseas Junior M.D. [id number]
--- NOTE | 2022-09-07 16:10 | PC.NURSE ---
Upon entering the room, pt was trying to climb out of bed and was crying. Pt stated I just want to get up. Pt was redirected and rested back in bed. Pt has gone in and out of crying spells and stated I'm not mad. I miss my mom. Pt was moved closer the nurses station for better monitoring.
[2022-09-07 16:24] LABS: Reflex Lactate Order REFLEX LACTIC ORDERD
[2022-09-07] MEDS: levofloxacin-dextrose 5 % 750 MG/150 ML PREMIX 100 MG IV (16:28)
[2022-09-07] MEDS: sodium chloride 0.9% 2,721.54 ML 2721.54 ML IV (16:36)
--- NOTE | 2022-09-07 16:36 | PM.HP ---
Providers/Chief Complaint Primary Care Provider: Francisco Mckinley DO Chief Complaint: chest pain History of Present Illness Maribell Foreman is a 46 year old female with history of, hemicolectomy related to ischemic bowel, peptic ulcer disease, status post pacemaker placement, history of seizure, COPD, fentanyl related overdose leading to cardiac arrest, hepatitis B, liver cirrhosis presenting today for chief complaint of chest pain. Patient has been confused, stool noticed on her feet high lactic acid noted in the ER concern for withdrawal/breakthrough seizures. She has been given septic bolus because of leukocytosis and high lactic acid. She is afebrile. Patient is stating that she was incarcerated for keeping illegal immigrants in her house and there was reason for her court appearance that she missed because she was getting a pacemaker here for her low heart rate, today she was confused when her roommate called 911. Patient is stating that it is possible that she probably had a breakthrough seizure today She has not noticed any fever, nausea, vomiting but endorsing abdominal discomfort. No recent chest pain, productive cough, UTI related symptoms. She thinks she is in 2019 and Tisha is the president, she is able to tell me her name, date of , able to answer my questions and make her needs known, short attention span not able to do simple math questions Review of Systems Const: Denies: fever(s) Eyes: Denies: change in vision ENMT: Denies: throat pain Card: Denies: chest pain Resp: Denies: dyspnea GI: Reports: abdominal pain and nausea : Denies: flank pain Musc: Denies: neck pain Skin/Breast: Denies: rash Medications/Allergies Home Medications Medication Instructions Recorded Confirmed Last Taken Type levothyroxine 50 mcg tablet 50 mcg PO QAM #30 tabs 12/23/19 09/07/22 06/08/22 08:00 Rx pantoprazole 40 mg tablet,delayed 40 mg PO BID 10/17/20 09/07/22 06/08/22 08:00 History release lamotrigine 200 mg tablet 200 mg PO DAILY 02/19/21 09/07/22 06/08/22 08:00 History gabapentin 300 mg capsule See Rx Instructions .Route .COMPLEX 08/07/21 09/07/22 06/08/22 08:00 History lipase 3,000-protease 1 cap PO TID 08/07/21 09/07/2206/08/23 08:00 History 9,500-amylase 15,000 unit capsule, delayed rel (Creon) dicyclomine 20 mg tablet 20 mg PO BID 09/07/22 09/07/22 Unknown History hydroxyzine HCl 50 mg tablet See Rx Instructions .Route .COMPLEX 09/07/22 09/07/22 Unknown History insulin regular human 100 unit/mL See Rx Instructions .Route .COMPLEX 09/07/22 09/07/22 Unknown History injection solution (Novolin R Regular U-100 Insulin) metoclopramide HCl 10 mg tablet 10 mg PO TID 09/07/22 09/07/22 Unknown History (Reglan) ondansetron HCl 8 mg tablet 8 mg PO BID 09/07/22 09/07/22 Unknown History Allergies Allergy/AdvReac Type Severity Reaction Status Date / Time codeine Allergy Unknown Unknown Verified 08/18/22 07:44 aspirin Allergy ALGY-Hives Verified 08/18/22 07:44 Sulfa (Sulfonamide Allergy ALGY-Swell Verified 08/18/22 07:44 Antibiotics) Lip/Tongue/Throat PFSH Acute PFSH: Medical History Accidental fentanyl overdose Bilateral pulmonary embolism Cardiac arrest Chronic abdominal pain Chronic hepatitis B Chronic hip pain Cirrhosis COPD (chronic obstructive pulmonary disease) Chronically on 3 L of oxygen Diabetes mellitus Encephalopathy Gastroesophageal reflux GI bleeding Hepatitis B Hypertension Hypothyroidism Leg cramps Overdose Pelvic inflammatory disease Pulmonary embolism Stomach cancer Thrombocytopenia Tobacco dependency Surgical History H/O tubal ligation History of hysterectomy History of laparotomy History of right hemicolectomy Family History Mother Diabetes Father CAD (coronary artery disease) Other Cancer Social History Smoking and tobacco status: former smoker Quit status (tobacco): has quit using tobacco Year quit tobacco: 2020 Former quit date comment: 2ppd x 26 year Hx Alcohol intake: never Substance/Drug Use: never Vitals/I&O/Wt Last Vital Signs Temp 98.9 F 09/07/22 14:03 Pulse 117 H 09/07/22 16:00 Resp 17 09/07/22 16:00 BP 174/116 09/07/22 16:00 Pulse Ox 97 09/07/22 16:00 09/07/22 09/07/22 09/07/22 06:59 14:59 22:59 Intake Total 1999 Balance 1999 Weight last 48 hrs Weight 90.718 kg Physical Exam Narrative: No signs of hepatic encephalopathy Awake and alert GCS 15 NIH 0 S1, S2 Abdomen soft Liver tenderness Looks euvolemic Sinus tachycardia Afebrile No signs of meningismus Data 09/07/22 14:30 09/07/22 14:30 Micro: Microbiology 09/07/22 15:40 Blood Culture - Preliminary Blood SPECIMEN COLLECTED 09/07/22 14:30 Blood Culture - Preliminary Blood SPECIMEN COLLECTED A&P Assessment and plan (1) SSS (sick sinus syndrome): (2) Presence of permanent cardiac pacemaker: (3) H/O right hemicolectomy: (4) Tobacco dependency: (5) Hypothyroidism: (6) Diabetes mellitus: (7) Seizure disorder: (8) Metabolic encephalopathy: (9) Smoker: (10) Chronic hepatitis B: Plan Metabolic encephalopathy related to breakthrough seizures High lactic acid Requested prolactin and procalcitonin Afebrile Concern for meningitis is low CT abdomen pelvis consistent with portal hypertension Start patient on IV Keppra, check Lamictal level We will keep her on clear liquids for now advance once mentation improves Threshold to intubate will stay low if she worsens She has been given septic bolus along antibiotics I will start her on vancomycin and Zosyn, no active source of infection identified I do believe her lactic acid is related to breakthrough seizures Trend troponin for complaint of chest pain, requested echo Full code Patient on multiple comorbid conditions History of pancreatitis: Continue pancreatic enzymes History of COPD: No acute exacerbation with wheezing Hepatitis B related liver cirrhosis: Requested ammonia level Patient does not have capacity to make decision She lives with a friend Attestations Medical Necessity Statement*: Admit to ICU greater than 2 midnights anticipated Diagnoses SSS (sick sinus syndrome) I49.5 Presence of permanent cardiac pacemaker Z95.0 H/O right hemicolectomy Z90.49 Tobacco dependency F17.200 Hypothyroidism E03.9 Diabetes mellitus E11.9 Seizure disorder G40.909 Metabolic encephalopathy G93.41 Smoker F17.200 Chronic hepatitis B B18.1
[2022-09-07 16:42] LABS: ABG PCO2 30.7 mmHg (35-45)
[2022-09-07 16:43] LABS: HCO3 ABG 22.7 mmol/L (22-26); PO2 ABG 82.1 mmHg (80.0-100.0)
[2022-09-07 16:44] LABS: Base Excess ABG 0.1 mmol/L (-2.0-2.0); Oxygen Saturation ABG 97.7
[2022-09-07 16:45] LABS: Arterial Blood Gas Hematocrit 45.9 % (37-47); Potassium Level - ABG 2.4 mmol/L (3.5-5.0)
[2022-09-07 16:46] LABS: Carboxyhemoglobin 1.7 %THgb (0.4-20.1); HGB O2 Sat 95.6 % (95-100); Ionized Calcium Level - ABG 1.2 mmol/L (1.1-1.4); Methemoglobin 0.4 % (0.4-1.5)
[2022-09-07 16:51] LABS: Ammonia 75 umol/L (11-51)
[2022-09-07 17:08] LABS: Troponin 5 2HR 22.58 ng/L (0-10); Troponin 5 2HR Delta -1.42 ABS# (0-10)
[2022-09-07 17:09] LABS: Lactic Acid level (Lactate) 2.7 mmol/L (0.5-2.2)
[2022-09-07 17:19] LABS: Procalcitonin 4.22 ng/mL (0-0.5); Prolactin 26.04 ng/mL (4.8-23.3)
[2022-09-07 17:24] LABS: ABG PH Result 7.48 (7.35-7.45); Alveolar-Arterial Oxygen Gradi 3.6 mmHg (5-10); Blood Gas Allen Test Pos; Blood Gas Operator Identificat CAK; Blood Gas Sample Site Radial, left; Blood Gas Sample Type Arterial; Oxygen Device ROOM AIR
[2022-09-07 17:44] LABS: D Dimer 3.69 ug/mIFEU (0-0.59)
[2022-09-07] MEDS: pantoprazole DR 40 mg Tablet PO (17:53)
[2022-09-07] MEDS: acetaminophen 500 mg Tablet PO (17:53)
[2022-09-07] MEDS: heparin 5,000 unit/mL INJ 1 mL 5000 UNIT SUBCUT (17:53)
--- NOTE | 2022-09-07 17:54 | PC.NURSE ---
Arrived from ED, AO to self and being in perris only. C/O of severe BARRETO, Message sent to HCP
[2022-09-07 19:05] LABS: Vitamin B12 587 pg/mL (232-1245)
--- NOTE | 2022-09-07 19:17 | PC.PHAR ---
PHARMACY TO DOSE CONSULT - VANCOMYCIN AND ZOSYN With the patient's current vital signs and lab results, the patient's dose of vancomycin is calculated at 1250mg every 8 hours. This should give a predicted peak of 31.4 and a trough of 14.34. Pharmacy will monitor this patient's trough level prior to the 4th dose. Zosyn dose is 3.375g every 8 hours since CrCl >20.
[2022-09-07] MEDS: morphine 4 mg/mL SDV 1 mL 2 MG IVP (19:28)
--- NOTE | 2022-09-07 20:06 | PC.NURSE ---
While administering morphine patient was crying due to being in pain and not wanting to be in hospital. Patient is alert and oriented to person and place but disoriented to time and situation. Patient is confused. Per dr. Majano patient is not oriented enough to leave AMA. Patient began to become very agitated and aggressive. using foul language cursing out nurses. Seth then called dr. Majano while this nurse was in patients room trying to calm patient down. Patient then jumped up out of bed ripping of telemetry and cussing and walking very quickly out of room. This nurse guarded herself due to close proximity in room and we did not yet have 96 hour on patient. This nurse and assistant community manager then followed patient out main entrance front door while charge nurse on unit called security for elopement. Security then brought patient back in and security brought patient back through to ER to be reassessed before bringing patient back to unit.
[2022-09-07 20:33] LABS: Adenovirus Not Detected (NOT DETECT); Chlamydia Pneumoniae Not Detected (NOT DETECT); Coronavirus 229E,HKU1,NL63,OC4 Not Detected (NOT DETECT); Human Metapneumovirus Not Detected (NOT DETECT); Human Rhinovirus/Enterovirus Not Detected (NOT DETECT); Influenza A Not Detected (NOT DETECT); Influenza A H1 Not Detected (NOT DETECT); Influenza A H1-2009 Not Detected (NOT DETECT); Influenza A H3 Not Detected (NOT DETECT); Influenza B Not Detected (NOT DETECT); Mycoplasma Pneumoniae Not Detected (NOT DETECT); Parainfluenza Virus Type 1 Not Detected (NOT DETECT); Parainfluenza Virus Type 2 Not Detected (NOT DETECT); Parainfluenza Virus Type 3 Not Detected (NOT DETECT); Parainfluenza Virus Type 4 Not Detected (NOT DETECT); Respiratory Syncytial Virus A Not Detected (NOT DETECT); Respiratory Syncytial Virus B Not Detected (NOT DETECT); SARS-COV-2 Not Detected (NOT DETECT)
--- NOTE | 2022-09-07 20:35 | PC.NURSE ---
96 hour Hold Patient Rights have been read to patient and a copy of the same was given to her. Power Line Installer And Repairer Chay Long was present at bedside at the time of reading. All questions answered to patient's satisfaction.
[2022-09-07] MEDS: nicotine 14 mg Patch 1 PATCH TRANSDERMA (20:55)
[2022-09-07] MEDS: LORazepam 2 mg/mL INJ 1 mL 0.25 MG IVP (21:35)
[2022-09-07] MEDS: vancomycin 1,250 MG/250 ML PIGGYBACK 200 MG IV (21:36)
[2022-09-07] MEDS: piperacillin-tazobactam 3.375 GM in sodium chloride 0.9% (plus) 50 ML IV (21:40)
--- NOTE | 2022-09-07 21:43 | ECG_ITS ---
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 Measurements Intervals [place] Rate: 97 P: 74 VA: 140 QRS: 73 QRSD: 100 T: 65 QT: 384 QTc: 489 Interpretive Statements SINUS RHYTHM LEFT ATRIAL ENLARGEMENT [-0.15mV P-WAVE IN V1/V2] Compared to ECG 09/07/2022 16:29:11 Sinus tachycardia no longer present Electronically Signed On 09-08-2022 8:46:12 CDT by Oseas Junior M.D. [id number]
[2022-09-07] MEDS: lidocaine 1% 5 ML in potassium chloride premix 100 ML 26.25 ML IV (22:09)
[2022-09-08] VITALS (51 sets, daily range): BP systolic 167–194; BP diastolic 111–120; PULSE 72–108; RESP 15–23; O2SAT 93–97
[2022-09-08] MEDS: lactulose oral liq 20 gm/30 mL UDC PO ×3 (01:00→20:08)
[2022-09-08] MEDS: morphine 4 mg/mL SDV 1 mL 2 MG IVP ×4 (01:10→20:08)
[2022-09-08 02:29] LABS: Basophils # 0.1 10^3/uL (0.0-0.1); Basophils % 0.4 %; Eosinophils # 0.1 10^3/uL (0.0-0.8); Eosinophils % 0.7 %; Hematocrit 38.4 % (37.0-47.0); Hemoglobin 13.6 g/dL (11.5-15.3); Lymphocytes # 2.3 10^3/uL (0.8-4.8); Lymphocytes % 12.9 %; Mean Corpuscular HGB Conc 35.4 g/dL (30.0-36.0); Mean Corpuscular Hemoglobin 31.1 pg (28.0-34.0); Mean Corpuscular Volume 87.7 fl (81-99); Monocytes # 1.6 10^3/uL (0.2-0.9); Neutrophils # 13.89 10^3/uL (1.8-7.7); Neutrophils % 76.5 %; Nucleated Red Blood Cells % 0.1 %; Platelet Count 118 10^3/cmm (130-400); Red Blood Count 4.38 10^6/uL (4.1-5.3); Red Cell Distribution Width 14.5 % (12.1-15.1); White Blood Count 18.1 10^3/uL (4.0-10.0)
[2022-09-08] MEDS: piperacillin-tazobactam 3.375 GM in sodium chloride 0.9% (plus) 50 ML IV ×3 (03:03→20:08)
[2022-09-08] MEDS: vancomycin 1,250 MG/250 ML PIGGYBACK 200 MG IV (03:04)
[2022-09-08 03:11] LABS: Blood Urea Nitrogen 11 mg/dL (6-20); C Reactive Protein 32.3 mg/L (0.0-4.9); Calcium 9.1 mg/dL (8.5-10.5); Carbon Dioxide 23 mmol/L (22-29); Chloride 108 mmol/L (98-107); Glomerular Filtration Rate 132.2 mL/min (90-130); Glucose 91 mg/dL (65-115); Magnesium 1.4 mg/dL (1.7-2.3); Osmolality Calculated 289 mOsm/kg (285-295); Phosphorus 3.5 mg/dL (2.5-4.5); Sodium 140 mmol/L (136-145)
[2022-09-08 03:15] LABS: Anion Gap 12.4 (5-19); Potassium 3.4 mmol/L (3.5-5.1)
[2022-09-08] MEDS: LORazepam 2 mg/mL INJ 1 mL 0.25 MG IVP (03:26)
[2022-09-08] MEDS: levothyroxine 50 mcg Tablet PO (05:27)
[2022-09-08] MEDS: heparin 5,000 unit/mL INJ 1 mL 5000 UNIT SUBCUT ×2 (05:27→17:18)
[2022-09-08] MEDS: levETIRAcetam 750 MG in sodium chloride 0.9% (100 ml) 100 ML 430 MG IV (05:43)
[2022-09-08] MEDS: nicotine 14 mg Patch 1 PATCH TRANSDERMA (08:08)
[2022-09-08] MEDS: lamoTRIgine 100 mg Tablet 200 MG PO (08:08)
[2022-09-08] MEDS: pantoprazole DR 40 mg Tablet PO ×2 (08:08→17:18)
--- NOTE | 2022-09-08 08:48 | CT_ITS ---
WS: [id number] CTA OF THE CHEST WITH PULMONARY EMBOLISM PROTOCOL TECHNIQUE: High-resolution contrast enhanced CTA of the chest with coronal and sagittal reformatted i amas with pulmonary embolism protocol. MIP images are also reviewed. CLINICAL INFORMATION: syncope COMPARISON: CTA August 07, 2021 DLP: 454.[address] scans at [facility] use at least one of these dose optimization techniques: automated e xposure control; mA and/or kV adjustment per patient size (includes targeted exams where dose is matc hed to clinical indication); or iterative reconstruction. FINDINGS: Proximal main pulmonary arteries are normal. Normal segmental and subsegmental pulmonary arteries. No evidence of pulmonary embolus. Slightly aneurysmal ascending thoracic aorta measuring 4.1 cm. No med iastinal or hilar lymphadenopathy. No axillary lymphadenopathy. Adrenal glands are normal. Cirrhotic liver. Splenomegaly. Small esophageal hiatal hernia. Celiac and SMA are patent. Both lungs are well aerated. No acute pulmonary infiltrates. Slight bibasilar atelectasis. A few calc ified granulomas. CT/CT angio chest PE protcl [id number] IMPRESSION: 1. No evidence of pulmonary embolus. 2. No acute pulmonary infiltrates. 3. No acute chest findings.
[2022-09-08 09:33] LABS: Tumor Marker Alpha Fetoprotein 4.2 ng/mL (0-8.3)
[2022-09-08] MEDS: iohexol 350 mg/mL 500 mL Btl (per mL) IV (10:00)
[2022-09-08] MEDS: hyDRALAzine 20 mg/mL INJ 1 mL IVP (10:22)
--- NOTE | 2022-09-08 10:26 | PC.NURSE ---
Patient very hypertensive this shift, notified Dr. Majano, received orders for one dose of hydralazine, BP WNL at this time.
--- NOTE | 2022-09-08 11:48 | P.PN_ITS ---
Subjective Subjective: Prolactin is high No recurrence of seizure I will discontinue antibiotics except Zosyn Leukocytosis increased Procalcitonin high Afebrile Hypertensive today Vitals/I&O/Wt Last Vital Signs Temp 98.9 F 09/07/22 14:03 Pulse 91 09/08/22 10:08 Resp 15 09/08/22 10:08 BP 181/120 09/08/22 10:08 Pulse Ox 93 09/08/22 07:55 O2 Del Method Room Air 09/08/22 07:55 09/07/22 09/08/22 09/08/22 22:59 06:59 14:59 Intake Total 2710 / 2710 1969 3734.04 / 3734.04 Balance 2710 / 2710 1969 3734.04 / 3734.04 Weight last 48 hrs Weight 90.718 kg Physical Exam Narrative: Patient is drowsy However able to follow commands Hypertensive No signs of meningitis Currently on room air Afebrile Abdomen soft within right quadrant Patient is not jaundiced S1, S2 Currently on room air Data 09/08/22 02:17 09/08/22 02:50 Micro: Microbiology 09/07/22 15:40 Blood Culture - Preliminary Blood SPECIMEN COLLECTED 09/07/22 14:30 Blood Culture - Preliminary Blood SPECIMEN COLLECTED A&P Assessment and plan (1) Metabolic encephalopathy: (2) Presence of permanent cardiac pacemaker: (3) H/O right hemicolectomy: (4) Hypothyroidism: (5) Diabetes mellitus: (6) Seizure disorder: (7) COPD (chronic obstructive pulmonary disease): Qualifiers: COPD type: unspecified COPD Qualified Code(s): J44.9 - Chronic obstructive pulmonary disease, unspecified (8) Smoker: (9) Nicotine dependence, cigarettes, with unspecified nicotine-induced disorders: (10) Chronic hepatitis B: Plan Patient is a 96-hour hold, she tried to escape yesterday from the ICU Requested psychiatrist to learn about her disease making capacity, I do believe she has no capacity to make decision Breakthrough seizures related metabolic encephalopathy: I will discontinue vancomycin Keep her on Zosyn for now considering portal hypertension I will start her on lisinopril, Lasix, hydralazine for hypertensive emergency and keep IV hydralazine for as needed use AFP unremarkable Keep her on lactulose twice a day regimen Continue IV Keppra for now Continue levothyroxine as well Afebrile Cardiac diet She will stay in ICU glucose of 96 hold Continue vitamin B1 therapy CTA chest did not show PE D-dimer Attestations Medical Necessity Statement*: Possible discharge tomorrow if deemed stable by psychiatrist Diagnoses Metabolic encephalopathy G93.41 Presence of permanent cardiac pacemaker Z95.0 H/O right hemicolectomy Z90.49 Hypothyroidism E03.9 Diabetes mellitus E11.9 Seizure disorder G40.909 COPD (chronic obstructive pulmonary disease) J44.9 COPD type: unspecified COPD Smoker F17.200 Nicotine dependence, cigarettes, with unspecified nicotine-induced disorders F17.219 Chronic hepatitis B B18.1
[2022-09-08] MEDS: labetalol 200 mg Tablet PO ×2 (12:12→17:18)
[2022-09-08] MEDS: lisinopril 10 mg Tablet PO (12:12)
[2022-09-08] MEDS: potassium chloride ER 20 mEq Tablet PO (12:13)
[2022-09-08] MEDS: levETIRAcetam 500 mg Tablet PO (17:18)
[2022-09-09] MEDS: piperacillin-tazobactam 3.375 GM in sodium chloride 0.9% (plus) 50 ML IV (04:21)
[2022-09-09 04:37] VITALS: RESP 17; O2SAT 95
[2022-09-09] MEDS: morphine 4 mg/mL SDV 1 mL 2 MG IVP ×2 (04:37→09:25)
[2022-09-09 04:44] LABS: Basophils % 0.5 %; Eosinophils # 0.3 10^3/uL (0.0-0.8); Eosinophils % 3.5 %; Hematocrit 33.8 % (37.0-47.0); Hemoglobin 11.5 g/dL (11.5-15.3); Lymphocytes # 2.4 10^3/uL (0.8-4.8); Lymphocytes % 32.6 %; Mean Corpuscular Hemoglobin 30.3 pg (28.0-34.0); Mean Corpuscular Volume 89.2 fl (81-99); Mean Platelet Volume 11.5 fL (7.4-10.4); Monocytes % 13.4 %; Neutrophils % 49.7 %; Nucleated Red Blood Cells % 0 %; Platelet Count 110 10^3/cmm (130-400); Red Blood Count 3.79 10^6/uL (4.1-5.3); Red Cell Distribution Width 14.7 % (12.1-15.1); White Blood Count 7.5 10^3/uL (4.0-10.0)
[2022-09-09] MEDS: levothyroxine 50 mcg Tablet PO (05:11)
[2022-09-09] MEDS: heparin 5,000 unit/mL INJ 1 mL 5000 UNIT SUBCUT (05:11)
[2022-09-09 05:12] LABS: Phosphorus 3.7 mg/dL (2.5-4.5)
[2022-09-09 05:26] VITALS: PULSE 76
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
[2022-09-09 06:10] LABS: Alanine Aminotransferase 21 U/L (0-33); Albumin Level 2.7 g/dL (3.5-5.2); Alkaline Phosphatase 74 U/L (35-105); Aspartate Amino Transferase 26 U/L (0-32); Blood Urea Nitrogen 13 mg/dL (6-20); Calcium 8.8 mg/dL (8.5-10.5); Carbon Dioxide 24 mmol/L (22-29); Chloride 107 mmol/L (98-107); Creatinine Clr Calc Pharmacy 135.0891; Globulin 2.7 g/dL (1.3-4.6); Glomerular Filtration Rate 106.7 mL/min (90-130); Glucose 115 mg/dL (65-115); Osmolality Calculated 291 mOsm/kg (285-295); Sodium 140 mmol/L (136-145); Total Bilirubin 0.6 mg/dL (0.15-1.2); Total Protein 5.4 g/dL (6.6-8.7)
[2022-09-09] MEDS: lactulose oral liq 20 gm/30 mL UDC PO (08:07)
[2022-09-09] MEDS: potassium chloride ER 20 mEq Tablet PO (08:08)
[2022-09-09] MEDS: pantoprazole DR 40 mg Tablet PO (08:08)
[2022-09-09] MEDS: lamoTRIgine 100 mg Tablet 200 MG PO (08:08)
[2022-09-09] MEDS: FUROsemide 20 mg Tablet PO (08:08)
[2022-09-09] MEDS: lisinopril 10 mg Tablet PO (08:08)
[2022-09-09] MEDS: nicotine 14 mg Patch 1 PATCH TRANSDERMA (08:08)
[2022-09-09] MEDS: labetalol 200 mg Tablet PO (08:08)
[2022-09-09] MEDS: levETIRAcetam 500 mg Tablet PO (08:08)
[2022-09-09] MEDS: hyDRALAzine 25 mg Tablet PO (09:25)
[2022-09-09 09:31] VITALS: PULSE 73; RESP 18; O2SAT 97
--- NOTE | 2022-09-09 10:16 | PC.NURSE ---
[address] Majano and Dr. Long
--- NOTE | 2022-09-09 10:18 | PM.DCS ---
Discharge Providers Date of Admission: 09/07/22 17:18 Date of Discharge: September 09, 2022 Attending Provider at Admission: Suki Majano MD Attending Provider at Discharge: Suki Majaon MD Primary Care Provider: Francisco Mckinley DO Diagnoses at Discharge Discharge Diagnosis (1) Metabolic encephalopathy: Status: Acute (2) Presence of permanent cardiac pacemaker: Status: Acute (3) H/O right hemicolectomy: Status: Acute (4) Hypothyroidism: Status: Acute (5) Diabetes mellitus: Status: Acute (6) Seizure disorder: Status: Acute (7) COPD (chronic obstructive pulmonary disease): Status: Acute Qualifiers: COPD type: unspecified COPD Qualified Code(s): J44.9 - Chronic obstructive pulmonary disease, unspecified Permanent problem details: Chronically on 3 L of oxygen (8) Smoker: Status: Acute (9) Nicotine dependence, cigarettes, with unspecified nicotine-induced disorders: Status: Chronic (10) Chronic hepatitis B: Status: Acute Reason for Visit Reason for Visit: chest pain Hospital Course Hospital Course 47-year-old female who was admitted for management evaluation of altered mental status metabolic encephalopathy related to breakthrough seizures, prolactin was high, patient has not been taking all of her medications, she was recently incarcerated for helping legal immigrants, patient is stating that she has not taken her medication for quite some time, in the hospital she was kept on Keppra no breakthrough seizures identified, patient was put on 96-hour hold as she was trying to leave AMA on day 1, neuropsych was consulted Dr. Long deemed her stable to be discharged home, 96-hour hold was rescinded, patient remained hemodynamically stable other than hypertensive episodes which were controlled with p.o. and IV antihypertensive regimen. I will prescribe her hydralazine, lisinopril, amlodipine at the time of discharge. She should continue her lactulose. She carries hepatitis B related liver cirrhosis with portal hypertension she did not show any signs of acute decompensation during hospitalization. She did not show signs of hepatic encephalopathy or abdominal pain. Initially there was concern for meningitis because of her altered mental status however she remained afebrile, her antibiotics were de-escalated. I will give her GI referral for [facility] so she could get hepatitis B treatment. She is at risk of readmissions. Physical Exam Narrative: Awake and alert Nonfocal neuro exam No sign of hepatic encephalopathy Euvolemic GCS 15 NIH 0 No signs of meningitis Discharge Data Studies Completed and Pending Completed Studies During Hospitalization Category Date Time Status CT abdomen pelvis wo con [id number] Stat Cat Scan 09/07/22 15:[address] head wo con* [id number] Stat Cat Scan 09/07/22 14:13 Completed CTA PE [CT angio chest PE protcl [id number]] Routine Cat Scan 09/08/22 08:48 Completed XR chest 1V portable [id number] Stat Exams 09/07/22 14:13 Completed Pending at discharge Category Date Time Status Blood Culture Stat Lab 09/07/22 15:40 Results Lamotrigine (Lamictal) Level Routine Lab 09/07/22 14:30 Received Radiology Impressions Chest X-Ray 09/07/22 14:13 IMPRESSION: Clinical correlation suggested for early hypostatic basal pulmonary interstitial edema. Head CT 09/07/22 14:13 IMPRESSION: 1. No evidence of intracranial hemorrhage or mass effect. 2. No acute intracranial findings. Abdomen/Pelvis CT 09/07/22 15:08 IMPRESSION: 1. Cirrhotic liver with portal hypertension and upper abdominal varices. 2. No ascites. 3. Splenomegaly. 4. Normal caliber abdominal aorta. 5. Sigmoid diverticulosis. No evidence of acute diverticulitis. 6. No acute findings and no significant changes since May 22, 2022. Chest CTA 09/08/22 08:48 IMPRESSION: 1. No evidence of pulmonary embolus. 2. No acute pulmonary infiltrates. 3. No acute chest findings. Laboratory Results WBC 7.5 10^3/uL (4.0-10.0) 09/09/22 03:24 RBC 3.79 10^6/uL (4.1-5.3) L 09/09/22 03:24 Hgb 11.5 g/dL (11.5-15.3) 09/09/22 03:24 Hct 33.8 % (37.0-47.0) L 09/09/22 03:24 MCV 89.2 fl (81-99) 09/09/22 03:24 MCH 30.3 pg (28.0-34.0) 09/09/22 03:24 MCHC 34.0 g/dL (30.0-36.0) 09/09/22 03:24 RDW 14.7 % (12.1-15.1) 09/09/22 03:24 Plt Count 110 10^3/cmm (130-400) L 09/09/22 03:24 MPV 11.5 fL (7.4-10.4) H 09/09/22 03:24 Neut % (Auto) 49.7 % 09/09/22 03:24 Lymph % (Auto) 32.6 % 09/09/22 03:24 [place] % (Auto) 13.4 % 09/09/22 03:24 Eos % (Auto) 3.5 % 09/09/22 03:24 Baso % (Auto) 0.5 % 09/09/22 03:24 Neut # (Auto) 3.70 10^3/uL (1.8-7.7) 09/09/22 03:24 Lymph # (Auto) 2.4 10^3/uL (0.8-4.8) 09/09/22 03:24 [place] # (Auto) 1.0 10^3/uL (0.2-0.9) H 09/09/22 03:24 Eos # (Auto) 0.3 10^3/uL (0.0-0.8) 09/09/22 03:24 Baso # (Auto) 0.0 10^3/uL (0.0-0.1) 09/09/22 03:24 Nucleated RBC % (auto) 0 % 09/09/22 03:24 Nucleated RBCs # 0.0 /100WBC 09/09/22 03:24 D-Dimer 3.69 ug/mIFEU (0-0.59) H 09/07/22 17:20 Specimen Type Arterial 09/07/22 14:19 Sample Site Radial, left 09/07/22 14:19 ABG pH 7.48 (7.35-7.45) H 09/07/22 14:19 ABG pCO2 30.7 mmHg (35-45) L 09/07/22 14:19 ABG pO2 82.1 mmHg (80.0-100.0) 09/07/22 14:19 ABG HCO3 22.7 mmol/L (22-26) 09/07/22 14:19 ABG O2 Saturation 97.7 09/07/22 14:19 ABG Base Excess 0.1 mmol/L (-2.0-2.0) 09/07/22 14:19 Dusty Test Pos 09/07/22 14:19 A-a O2 Gradient 3.6 mmHg (5-10) L 09/07/22 14:19 Hematocrit 45.9 % (37-47) 09/07/22 14:19 Hgb O2 Saturation 95.6 % (95-100) 09/07/22 14:19 Carboxyhemoglobin 1.7 %THgb (0.4-20.1) 09/07/22 14:19 Methemoglobin 0.4 % (0.4-1.5) 09/07/22 14:19 Total Hemoglobin 15.0 g/dL (12-16) 09/07/22 14:19 Sodium 142.0 mmol/L (131-143) 09/07/22 14:19 Potassium 2.4 mmol/L (3.5-5.0) L 09/07/22 14:19 Glucose 111.0 mg/dL (70-115) 09/07/22 14:19 Ionized Calcium 1.2 mmol/L (1.1-1.4) 09/07/22 14:19 O2 Delivery Device Room air 09/07/22 14:19 FiO2 21.0 % 09/07/22 14:19 Process Pumper ID Cak 09/07/22 14:19 Sodium 140 mmol/L (136-145) 09/09/22 03:24 Sodium Cancelled 09/09/22 03:24 Potassium 3.0 mmol/L (3.5-5.1) L 09/09/22 03:24 Potassium Cancelled 09/09/22 03:24 Chloride 107 mmol/L (98-107) 09/09/22 03:24 Chloride Cancelled 09/09/22 03:24 Carbon Dioxide 24 mmol/L (22-29) 09/09/22 03:24 Carbon Dioxide Cancelled 09/09/22 03:24 Anion Gap 12.0 (5-19) 09/09/22 03:24 Anion Gap Cancelled 09/09/22 03:24 BUN 13 mg/dL (6-20) 09/09/22 03:24 BUN Cancelled 09/09/22 03:24 Creatinine 0.6 mg/dL (0.5-0.9) 09/09/22 03:24 Creatinine Cancelled 09/09/22 03:24 GFR Calculation 106.7 mL/min (90-130) 09/09/22 03:24 GFR Calculation Cancelled 09/09/22 03:24 Glucose 115 mg/dL (65-115) 09/09/22 03:24 Glucose Cancelled 09/09/22 03:24 Calculated Osmolality 291 mOsm/kg (285-295) 09/09/22 03:24 Calculated Osmolality Cancelled 09/09/22 03:24 Lactic Acid 4.2 mmol/L (0.5-2.2) H* 09/07/22 14:30 Lactic Acid (Sepsis) 2.7 mmol/L (0.5-2.2) H 09/07/22 16:23 Calcium 8.8 mg/dL (8.5-10.5) 09/09/22 03:24 Calcium Cancelled 09/09/22 03:24 Phosphorus 3.7 mg/dL (2.5-4.5) 09/09/22 03:24 Magnesium 1.4 mg/dL (1.7-2.3) L 09/08/22 02:50 Total Bilirubin 0.6 mg/dL (0.15-1.2) 09/09/22 03:24 AST 26 U/L (0-32) 09/09/22 03:24 ALT 21 U/L (0-33) 09/09/22 03:24 Alkaline Phosphatase 74 U/L (35-105) 09/09/22 03:24 Ammonia 75 umol/L (11-51) H 09/07/22 16:23 Creatine Kinase 124 U/L (26-192) 09/07/22 14:30 Troponin T Baseline 24 ng/L (0-10) H 09/07/22 14:30 Troponin T 120 Minute 22.58 ng/L (0-10) H 09/07/22 16:23 Delta Troponin T -1.42 ABS# (0-10) L 09/07/22 16:23 Troponin T Hi Sens 6Hr 21.40 ng/L (0-10) H 09/07/22 20:30 Troponin T Hi Sens 6Hr Delta -2.60 ng/L (0-12) L 09/07/22 20:30 C-Reactive Protein 28.0 mg/L (0.0-4.9) H 09/09/22 03:24 Total Protein 5.4 g/dL (6.6-8.7) L 09/09/22 03:24 Albumin 2.7 g/dL (3.5-5.2) L 09/09/22 03:24 Globulin 2.7 g/dL (1.3-4.6) 09/09/22 03:24 Lipase 40 U/L (13-60) 09/07/22 14:30 Tumor Marker AFP 4.2 ng/mL (0-8.3) 09/08/22 02:50 Vitamin B12 587 pg/mL (232-1245) 09/07/22 16:23 Procalcitonin 4.22 ng/mL (0-0.5) H 09/07/22 16:23 TSH 0.50 uIU/mL (0.27-4.20) 09/07/22 16:23 Prolactin 26.04 ng/mL (4.8-23.3) H 09/07/22 16:23 Urine Color Yellow (Yellow) 09/07/22 15:31 Urine Appearance Clear (CLEAR) 09/07/22 15:31 Urine pH 7 (5-7) 09/07/22 15:31 Ur Specific [place] 1.010 (1.005-1.030) 09/07/22 15:31 Urine Protein Neg (Negative) 09/07/22 15:31 Urine Glucose (UA) Norm (Normal) 09/07/22 15:31 Urine Ketones Negative (Negative) 09/07/22 15:31 Urine Blood Neg (Negative) 09/07/22 15:31 Urine Nitrate Negative (Negative) 09/07/22 15:31 Urine Bilirubin Neg (Negative) 09/07/22 15:31 Urine Urobilinogen Norm mg/dL (Negative) 09/07/22 15:31 Ur Leukocyte Esterase Negative (Negative) 09/07/22 15:31 Salicylates < 0.3 mg/dL (3-10) L 09/07/22 14:30 Urine Opiates Screen Negative ng/mL (Negative) 09/07/22 15:31 Acetaminophen < 5.0 ug/mL (10-30) L 09/07/22 14:30 Ur Barbiturates Screen Negative ng/mL (Negative) 09/07/22 15:31 Ur Phencyclidine Scrn Negative ng/mL (Negative) 09/07/22 15:31 Ur Amphetamines Screen Negative ng/mL (Negative) 09/07/22 15:31 U Benzodiazepines Scrn Negative ng/mL (Negative) 09/07/22 15:31 Urine Cocaine Screen Negative ng/mL (Negative) 09/07/22 15:31 U Marijuana (THC) Screen Positive ng/mL (Negative) H 09/07/22 15:31 Ethyl Alcohol < 10 mg/dL (0-10) 09/07/22 14:30 Serum Ketones Negative (Negative) 09/07/22 14:30 Coronavirus 229E (PCR) Not detected (NOT DETECT) 09/07/22 17:45 SARS-CoV-2 (PCR) Not detected (NOT DETECT) 09/07/22 17:45 Vitals Last Vital Signs Temp 98.9 F 09/07/22 14:03 Pulse 73 09/09/22 09:31 Resp 18 09/09/22 09:31 BP 181/120 09/08/22 10:08 Pulse Ox 97 09/09/22 09:31 O2 Del Method Room Air 09/09/22 09:31 Discharge Plan Discharge Patient Disposition: Home Condition: Stable Prescriptions: New lisinopril 10 mg Tablet 10 mg PO DAILY Qty: 60 3RF hydralazine 25 mg Tablet 25 mg PO BID Qty: 60 3RF lamotrigine 100 mg Tablet 200 mg PO DAILY Qty: 120 2RF labetalol 200 mg Tablet 200 mg PO BID Qty: 60 2RF Continued gabapentin 300 mg capsule See Rx Instructions .ROUTE .COMPLEX Rx Instructions: (tapering dose in alf started 08/30/22) 300mg po bedtime for 7 days then stop Creon 3,000-9,500- 15,000 unit capsule,delayed release(DR/EC) 1 cap PO TID hydroxyzine HCl 50 mg Tablet See Rx Instructions .ROUTE .COMPLEX Rx Instructions: 50 mg po bid for 3 days then 25mg po bid for 3 days then 25mg po qam for 3 days Bentyl 20 mg Tablet 20 mg PO BID Rx Instructions: for 5 days Novolin R Regular U-100 Insuln 100 unit/mL Solution See Rx Instructions .ROUTE .COMPLEX Rx Instructions: sliding scale tid before meals levothyroxine 50 mcg tablet 50 mcg PO QAM Qty: 60 2RF pantoprazole 40 mg tablet,delayed release (DR/EC) 40 mg PO BID Qty: 60 0RF ondansetron HCl 8 mg Tablet 8 mg PO BID Qty: 10 0RF Rx Instructions: for 5 days Reglan 10 mg Tablet 10 mg PO TID Qty: 10 0RF Rx Instructions: before meals Discontinued lamotrigine 200 mg Tablet 200 mg PO DAILY Discharge Orders: Discharge Order (Routine); Ordered 09/09/22 Ordered By: Suki Majano Referrals: Raymond Naylor MD [Referring] - 2 weeks (Hepatitis B treatment ) Francisco Mckinley DO [Primary Care Provider] - Discharge Diet: Cardiac Discharge Activity: Increase activity as tolerated Patient Instructions: Opioid Safety Discharge Attestations Time Spent in Discharge Care*: greater than 30 min Quality Metrics Clinical Quality Measures [ No reported AMI, CVA or VTE this stay] Coding Level of Care Code Acute Code for Chg Fwd Diagnoses Metabolic encephalopathy G93.41 Presence of permanent cardiac pacemaker Z95.0 H/O right hemicolectomy Z90.49 Hypothyroidism E03.9 Diabetes mellitus E11.9 Seizure disorder G40.909 COPD (chronic obstructive pulmonary disease) J44.9 COPD type: unspecified COPD Smoker F17.200 Nicotine dependence, cigarettes, with unspecified nicotine-induced disorders F17.219 Chronic hepatitis B B18.1
[2022-09-09 10:31] VITALS: PULSE 73; RESP 18; O2SAT 97
--- NOTE | 2022-09-09 10:48 | PC.NURSE ---
Patient received Discharge orders, all safety requirements are met. All IV's removed. Prescriptions sent to preferred pharmacy and friend called to give patient ride. Patient verbalized all understandings of discharge. No questions at this time. Patient will exit via w/c to main exit with staff. All patient belongings sent with patient
--- NOTE | 2022-09-09 11:01 | PC.NURSE ---
Patient left at 1100
[2022-09-14 09:11] LABS: Lamotrigine (Lamictal) Level 5.4 mcg/mL (2.5-15.0)
== END 2022-09-09 11:00 | disposition home or self-care (01) | DRG 71 ==
LOC: ER 14:18 → ICU 17:18
PROVIDERS: Admitting Provider Internal Medicine; Emergency Provider Family Medicine; PCP Family Medicine; Visit Provider Internal Medicine
DX: G93.41 Metabolic encephalopathy (principal); B18.1 Chronic viral hepatitis B without delta-agent; I16.1 Hypertensive emergency; K76.6 Portal hypertension; Z86.711 Personal history of pulmonary embolism; Z86.74 Personal history of sudden cardiac arrest; G89.29 Other chronic pain; I49.5 Sick sinus syndrome; Z95.0 Presence of cardiac pacemaker; K74.60 Unspecified cirrhosis of liver; J44.9 Chronic obstructive pulmonary disease, unspecified; Z99.81 Dependence on supplemental oxygen; E11.9 Type 2 diabetes mellitus without complications; K21.9 Gastro-esophageal reflux disease without esophagitis; I10 Essential (primary) hypertension; Z87.891 Personal history of nicotine dependence; E03.9 Hypothyroidism, unspecified; Z79.891 Long term (current) use of opiate analgesic; D69.6 Thrombocytopenia, unspecified; G40.909 Epilepsy, unspecified, not intractable, without status epilepticus; E87.6 Hypokalemia; Z79.4 Long term (current) use of insulin
CPT/HCPCS: 36415; 36600; 70450; 71045; 71275; 74176; 80048; 80051; 80053; 80175; 80306; 80307; 81003; 82009; 82105; 82140; 82330; 82550; 82607; 82805; 83605; 83690; 83735; 84100; 84145; 84146; 84443; 84484; 85025; 85378; 86140; 87040; 87635; 93005; 96365; 96366; 96367; 96372; 96375; 99285; J0360; J1644; J1953; J1956; J2060; J2270; J2405; J2543; J3370; J3411; J3480; J7030; Q9967

== ENCOUNTER 2022-09-22 18:14 | Emergency (ER) | payer MEDICAID, SELFPAY ==
[2022-09-22 18:36] VITALS: PULSE 99; RESP 17; TEMP 36.7; O2SAT 97; BMI 30.4
[2022-09-22 18:42] VITALS: BP 118/68
--- NOTE | 2022-09-22 19:02 | XRR_ITS ---
PROCEDURE INFORMATION: Exam: XR Right Foot Exam date and time: 09/22/2022 7:10 PM Age: 47 years old Clinical indication: Pain; Foot; Right; Patient HX: Unspecified injury TECHNIQUE: Imaging protocol: Radiologic exam of the right foot. Views: 3 or more views. COMPARISON: CR XR ankle RT min 3V* [id number] 09/20/2019 8:59 AM FINDINGS: Bones/joints: Normal. Soft tissues: Normal. XR/XR foot RT min 3V* [id number] IMPRESSION: No acute findings.
--- NOTE | 2022-09-22 19:03 | ED_ITS ---
HPI - Extremity Problem General: Chief complaint: Extremity Injury, Lower Stated complaint: Right Foot Toe Injury Time Seen by Provider: 09/22/22 19:02 History of Present Illness: 47-year-old female alleges her foot was injured while she was being detained by law enforcement. Patient states they put her in a rubber room when she hurt her middle toe on her right foot. Patient has swelling and tenderness to the toe. Patient appears nontoxic. Patient has dyskinesia to the face most likely due to prior medication or drug use. Patient appears nontoxic. Patient appears in no pain. Patient states long force and thought she was on drugs. Associated symptoms: Deny fever(s) or rash Review of Systems Const: Denies: fever(s) Resp: Denies: dyspnea GI: Denies: nausea or vomiting : Denies: difficulty voiding Musc: Reports: extremity pain; Denies: back pain Skin/Breast: Denies: rash [facility] ED PFSH: Medical History (Updated 09/22/22 @ 19:25 by CAMERON Patel) Accidental fentanyl overdose Bilateral pulmonary embolism Cardiac arrest Chronic abdominal pain Chronic hepatitis B Chronic hip pain Cirrhosis COPD (chronic obstructive pulmonary disease) Chronically on 3 L of oxygen Diabetes mellitus Encephalopathy Gastroesophageal reflux GI bleeding Hepatitis B Hypertension Hypokalemia Hypothyroidism 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 Metabolic encephalopathy Nicotine dependence, cigarettes, with unspecified nicotine-induced disorders Overdose Pain management contract signed Pelvic inflammatory disease Presence of permanent cardiac pacemaker Pulmonary embolism Seizure disorder Smoker SSS (sick sinus syndrome) Stomach cancer Thrombocytopenia Tobacco dependency Surgical History (Updated 09/10/22 @ 00:01 by LUIS FERNANDO Hollis) H/O right hemicolectomy H/O tubal ligation History of hysterectomy History of laparotomy History of right hemicolectomy Family History Mother Diabetes Father CAD (coronary artery disease) Other Cancer Social History Smoking and tobacco status: former smoker Quit status (tobacco): has quit using tobacco Year quit tobacco: 2020 Former quit date comment: 2ppd x 26 year Hx Alcohol intake: never Substance/Drug Use: never Physical Exam Const: COMMON NORMALS: alert HENMT: COMMON NORMALS: normocephalic HEAD & SCALP: normocephalic Neck/C-Spine: COMMON NORMALS: full ROM Resp: COMMON NORMALS: normal respiratory effort Cardio: COMMON NORMALS: regular rate RATE: regular rate Extremity: RIGHT LOWER EXTREMITY: Yes foot & digits (Middle toe was swollen and ecchymotic) Right foot and digits: Yes inspection, Yes palpation, Yes ROM and Yes neurovascular exam Neuro: SENSORIUM/ORIENTATION: Yes alert Skin: COMMON NORMALS: turgor normal GENERAL SKIN EXAM: turgor normal Course Vital Signs: Vital signs: Vital Signs Temperature 98.1 F 09/22/22 18:36 Pulse Rate 99 09/22/22 18:36 Respiratory Rate 17 09/22/22 18:36 Blood Pressure 118/68 09/22/22 18:42 Pulse Oximetry 97 09/22/22 18:36 Oxygen Delivery Me thod Room Air 09/22/22 18:36 MDM - Extremity (Nontraumatic) Medical Decision Making Patient comes in today for injury to the right foot. On exam patient has some swelling and ecchymosis to the middle toe. Cap refill is intact. Sensation is intact. Dorsal pedis pulses intact. Differential diagnosis includes contusion, fracture, sprain. X-ray notes a nondisplaced fracture of the middle phalanx of the third toe. Reviewed exam with patient with recommendations for treatment and follow-up. Patient reported understanding. Discharge Plan Discharge Patient Disposition: Home Clinical Impression: Fracture of toe Qualifiers: Encounter type: initial encounter Toe: lesser toe Fracture type: closed Phalanx: middle Fracture alignment: nondisplaced Laterality: right Qualified Code(s): S92.524A - Nondisplaced fracture of middle phalanx of right lesser toe(s), initial encounter for closed fracture Condition: Stable Prescriptions: No Action gabapentin 300 mg capsule See Rx Instructions .ROUTE .COMPLEX Rx Instructions: (tapering dose in [facility] started 08/30/22) 300mg po bedtime for 7 days then stop Creon 3,000-9,500- 15,000 unit capsule,delayed release(DR/EC) 1 cap PO TID hydroxyzine HCl 50 mg Tablet See Rx Instructions .ROUTE .COMPLEX Rx Instructions: 50 mg po bid for 3 days then 25mg po bid for 3 days then 25mg po qam for 3 days dicyclomine 20 mg Tablet 20 mg PO BID Rx Instructions: for 5 days Novolin R Regular U-100 Insuln 100 unit/mL Solution See Rx Instructions .ROUTE .COMPLEX Rx Instructions: sliding scale tid before meals labetalol 200 mg Tablet 200 mg PO BID Qty: 60 2RF hydralazine 25 mg Tablet 25 mg PO BID Qty: 60 3RF lisinopril 10 mg Tablet 10 mg PO DAILY Qty: 60 3RF ondansetron HCl 8 mg Tablet 8 mg PO BID Qty: 10 0RF Rx Instructions: for 5 days levothyroxine 50 mcg tablet 50 mcg PO QAM Qty: 60 2RF pantoprazole 40 mg tablet,delayed release (DR/EC) 40 mg PO BID Qty: 60 0RF Reglan 10 mg Tablet 10 mg PO TID Qty: 10 0RF Rx Instructions: before meals lamotrigine 100 mg Tablet 200 mg PO DAILY Qty: 120 2RF Discharge Orders: Discharge ED (Routine); Ordered 09/22/22 Ordered By: Raymond Coates Referrals: Francisco Mckinley DO [Primary Care Provider] - Discharge Diet: Usual diet Discharge Activity: Increase activity as tolerated Patient Instructions: Toe Fracture (ED) Activity Restrictions/Additional Instructions: Home and rest. Elevate foot is much as possible for pain and discomfort and swelling. Continue with routine medications as directed. Follow-up with primary care for further instruction. Keep toe splinted with tape to the second toe to maintain alignment. Use a good supportive shoe or the postop shoe for further foot support. Follow-up in 1 week for further evaluation. Return to ER for new concerns. Coding Level of Care Code ED [employer] for 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
== END 2022-09-22 20:05 | disposition home or self-care (01) ==
PROVIDERS: Emergency Provider Nurse Practitioner Family; PCP Family Medicine
DX: S92.524A Nondisplaced fracture of middle phalanx of right lesser toe(s), initial encounter for closed fracture (principal); Z79.4 Long term (current) use of insulin; Z87.891 Personal history of nicotine dependence; Z86.19 Personal history of other infectious and parasitic diseases; J44.9 Chronic obstructive pulmonary disease, unspecified; E11.9 Type 2 diabetes mellitus without complications; I10 Essential (primary) hypertension; Z85.028 Personal history of other malignant neoplasm of stomach; Y35.93XA Legal intervention, means unspecified, suspect injured, initial encounter
CPT/HCPCS: 73630; 99283

== ENCOUNTER → 2022-09-29 16:30 | Outpatient (BNVA) | payer MEDICAID, SELFPAY | PROVIDERS: PCP Family Medicine; Visit Provider Internal Medicine Cardiovascular Disease | DX: Z45.010 Encounter for checking and testing of cardiac pacemaker pulse generator [battery] (principal) | CPT/HCPCS: 93296 ==

== ENCOUNTER 2022-11-21 12:34 | Emergency (ER) | payer MEDICAID, SELFPAY ==
[2022-11-21 12:39] VITALS: BP 128/83; PULSE 84; RESP 18; TEMP 36.8; O2SAT 98; BMI 27.1
--- NOTE | 2022-11-21 13:11 | ED_ITS ---
HPI - Nausea/Vomiting/Diarrhea General: Chief complaint: Nausea/Vomiting/Diarrhea Stated complaint: n/v Time Seen by Provider: 11/21/22 12:57 Source: patient Mode of arrival: ambulatory Limitations: no limitations History of Present Illness: 47-year-old female has a history of liver cirrhosis well-known to ER states she has been having all over pain along with nausea vomiting over the last 3 days. She states that she has had abdominal pain along with extremity pain she tells me that her skin hurts as well. She rates her pain a 5 out of 10 she denies any fevers. She denies any worsening improving factors. Associated nausea: Yes Associated symtoms: Reports nausea; Denies chest pain, dysuria or headache(s) Review of Systems Const: Denies: fever(s) or chills ENMT: Denies: throat pain or dental pain Card: Denies: chest pain Resp: Denies: dyspnea GI: Reports: abdominal pain, nausea and vomiting; Denies: diarrhea : Denies: dysuria Musc: Reports: neck pain, back pain and extremity pain Skin/Breast: Denies: rash Neuro: Denies: headache(s) PFS ED PFSH: Medical History Accidental fentanyl overdose Bilateral pulmonary embolism Cardiac arrest Chronic abdominal pain Chronic hepatitis B Chronic hip pain Cirrhosis COPD (chronic obstructive pulmonary disease) Chronically on 3 L of oxygen Diabetes mellitus Encephalopathy Gastroesophageal reflux GI bleeding Hepatitis B Hypertension Hypokalemia Hypothyroidism 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 Metabolic encephalopathy Nicotine dependence, cigarettes, with unspecified nicotine-induced disorders Overdose Pain management contract signed Pelvic inflammatory disease Presence of permanent cardiac pacemaker Pulmonary embolism Seizure disorder Smoker SSS (sick sinus syndrome) Stomach cancer Thrombocytopenia Tobacco dependency Surgical History H/O right hemicolectomy H/O tubal ligation History of hysterectomy History of laparotomy History of right hemicolectomy Family History Mother Diabetes Father CAD (coronary artery disease) Other Cancer Social History Smoking and tobacco status: former smoker Quit status (tobacco): has quit using tobacco Year quit tobacco: 2020 Former quit date comment: 2ppd x 26 year Hx Alcohol intake: never Substance/Drug Use: never Physical Exam Const: COMMON NORMALS: patient oriented x3 HENMT: COMMON NORMALS: normocephalic and atraumatic HEAD & SCALP: normocephalic and atraumatic Neck/C-Spine: COMMON NORMALS: full ROM and supple Chest: COMMONS NORMALS: normal inspection of the chest and normal palpation of entire chest wall Resp: COMMON NORMALS: normal respiratory effort, No retractions, No use of accessory muscles and clear to auscultation bilaterally AUSCULTATION: clear to auscultation bilaterally Cardio: COMMON NORMALS: regular rate, regular rhythm and No murmurs present (Cardio) RATE: regular rate RHYTHM: regular rhythm GI: COMMON NORMALS: Normal to inspection, nondistended, normoactive bowel sounds present, Soft to palpation, non-tender and no masses PALPATION: Yes Soft to palpation Extremity: COMMON NORMALS: normal to inspection and full ROM Neuro: COMMON NORMALS: patient oriented x3, moves all extremities and no focal motor deficits Psych: COMMON NORMALS: mental status grossly normal, Normal thought process present and cooperative THOUGHT PROCESS: Normal thought process present Skin: COMMON NORMALS: no rashes or lesions noted and no wounds GENERAL SKIN EXAM: no rashes or lesions noted Course Vital Signs: Vital signs: Vital Signs Temperature 98.3 F 11/21/22 12:39 Pulse Rate 84 11/21/22 12:39 Respiratory Rate 17 11/21/22 14:22 Blood Pressure 128/83 11/21/22 12:39 Pulse Oximetry 98 11/21/22 14:22 Oxygen Delivery Me thod Room Air 11/21/22 12:39 MDM - Nausea/Vomiting/Diarrhea Medical Decision Making Patient presents here with allover pain along with nausea vomiting she is well- appearing here blood work here is normal she feels improved her exam here is benign we will place her on Reglan she is to follow-up with PCP and return if worsening. Medical Records I reviewed the patient's medical records. Lab Data I reviewed the patient's lab results. 11/21/22 14:00 11/21/22 14:00 Radiology Impressions Chest X-Ray 11/21/22 13:11 IMPRESSION: Stable chest without acute cardiopulmonary abnormality. Laboratory Results WBC 5.47 10^3/uL (3.29-11.43) 11/21/22 14:00 RBC 4.38 10^6/uL (3.85-5.65) 11/21/22 14:00 Hgb 13.10 g/dL (11.27-16.99) 11/21/22 14:00 Hct 40.4 % (36-47) 11/21/22 14:00 MCV 92.2 fl (85-98) 11/21/22 14:00 MCH 29.9 pg (27-33) 11/21/22 14:00 MCHC 32.4 g/dL (30-55) 11/21/22 14:00 RDW 14.1 % (12.1-15.1) 11/21/22 14:00 Plt Count 153 10^3/cmm (157-399) L 11/21/22 14:00 MPV 10.5 fL (7.4-10.4) H 11/21/22 14:00 Neut % (Auto) 55.6 % 11/21/22 14:00 Lymph % (Auto) 28.7 % 11/21/22 14:00 [place] % (Auto) 12.4 % 11/21/22 14:00 Eos % (Auto) 2.4 % 11/21/22 14:00 Baso % (Auto) 0.5 % 11/21/22 14:00 Neut # (Auto) 3.04 10^3/uL (1.8-7.7) 11/21/22 14:00 Lymph # (Auto) 1.6 10^3/uL (0.8-4.8) 11/21/22 14:00 [place] # (Auto) 0.7 10^3/uL (0.2-0.9) 11/21/22 14:00 Eos # (Auto) 0.1 10^3/uL (0.0-0.8) 11/21/22 14:00 Baso # (Auto) 0.0 10^3/uL (0.0-0.1) 11/21/22 14:00 Nucleated RBC % (auto) 0 % 11/21/22 14:00 Nucleated RBCs # 0.0 /100WBC 11/21/22 14:00 Sodium 136 mmol/L (136-145) 11/21/22 14:00 Potassium 4.0 mmol/L (3.5-5.1) 11/21/22 14:00 Chloride 102 mmol/L (98-107) 11/21/22 14:00 Carbon Dioxide 24 mmol/L (22-29) 11/21/22 14:00 Anion Gap 14.0 (5-19) 11/21/22 14:00 BUN 9 mg/dL (6-20) 11/21/22 14:00 Creatinine 0.6 mg/dL (0.5-0.9) 11/21/22 14:00 GFR Calculation 106.7 mL/min (90-130) 11/21/22 14:00 Glucose 117 mg/dL (65-115) H 11/21/22 14:00 Calculated Osmolality 282 mOsm/kg (285-295) L 11/21/22 14:00 Calcium 8.7 mg/dL (8.5-10.5) 11/21/22 14:00 Total Bilirubin 0.5 mg/dL (0.15-1.2) 11/21/22 14:00 AST 36 U/L (0-32) H 11/21/22 14:00 ALT 19 U/L (0-33) 11/21/22 14:00 Alkaline Phosphatase 86 U/L (35-105) 11/21/22 14:00 Total Protein 7.1 g/dL (6.6-8.7) 11/21/22 14:00 Albumin 3.3 g/dL (3.5-5.2) L 11/21/22 14:00 Globulin 3.8 g/dL (1.3-4.6) 11/21/22 14:00 Lipase 31 U/L (13-60) 11/21/22 14:00 EKG Data EKG 1: I personally reviewed and interpreted this EKG as follows: EKG interpretation date: 11/21/22 EKG interpretation time: 13:42 Interpretation: nsr hr [address] or t wave abnormalities qrs 97 qtc 452 Discharge Plan Discharge Patient Disposition: Home Clinical Impression: Vomiting Qualifiers: Vomiting type: unspecified Nausea presence: with nausea Qualified Code(s): R11.2 - Nausea with vomiting, unspecified Condition: Stable Prescriptions: New Reglan 10 mg tablet 10 mg PO Q6H PRN (Reason: nausea and vomiting) Qty: 20 0RF No Action gabapentin 300 mg capsule See Rx Instructions .ROUTE .COMPLEX Rx Instructions: (tapering dose in correction started 08/30/22) 300mg po bedtime for 7 days then stop Creon 3,000-9,500- 15,000 unit capsule,delayed release(DR/EC) 1 cap PO TID hydroxyzine HCl 50 mg Tablet See Rx Instructions .ROUTE .COMPLEX Rx Instructions: 50 mg po bid for 3 days then 25mg po bid for 3 days then 25mg po qam for 3 days dicyclomine 20 mg Tablet 20 mg PO BID Rx Instructions: for 5 days Novolin R Regular U100 Insulin 100 unit/mL Solution See Rx Instructions .ROUTE .COMPLEX Rx Instructions: sliding scale tid before meals labetalol 200 mg Tablet 200 mg PO BID Qty: 60 2RF hydralazine 25 mg Tablet 25 mg PO BID Qty: 60 3RF lisinopril 10 mg Tablet 10 mg PO DAILY Qty: 60 3RF ondansetron HCl 8 mg Tablet 8 mg PO BID Qty: 10 0RF Rx Instructions: for 5 days levothyroxine 50 mcg tablet 50 mcg PO QAM Qty: 60 2RF pantoprazole 40 mg tablet,delayed release (DR/EC) 40 mg PO BID Qty: 60 0RF Reglan 10 mg Tablet 10 mg PO TID Qty: 10 0RF Rx Instructions: before meals lamotrigine 100 mg Tablet 200 mg PO DAILY Qty: 120 2RF Discharge Orders: Discharge ED (Routine); Ordered 11/21/22 Ordered By: Brandon Jerez Referrals: Francisco Mckinley DO [Primary Care Provider] - 1-3 days Discharge Diet: Advance as tolerated Discharge Activity: Resume usual activity Patient Instructions: Acute Nausea and Vomiting (ED) Coding Level of Care Code ED [employer] 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
--- NOTE | 2022-11-21 13:11 | XRR_ITS ---
PROCEDURE INFORMATION: Exam: XR Chest Exam date and time: 11/21/2022 2:02 PM Age: 47 years old Clinical indication: Other: Vomiting TECHNIQUE: Imaging protocol: Radiologic exam of the chest. Views: 1 view. COMPARISON: CR XR chest 1V portable [id number] 09/07/2022 1:32 PM FINDINGS: Tubes, catheters and devices: Dual lead pacemaker on the left. This is unchanged with prior exam. Lungs: Mild chronic basilar reticular markings with prior exam. No focal infiltrate or consolidation. Pleural spaces: Unremarkable. No pleural effusion. No pneumothorax. Heart/Mediastinum: Unremarkable. No cardiomegaly. Bones/joints: Visualized osseous structures show no acute abnormality. XR/XR chest 1V portable [id number] IMPRESSION: Stable chest without acute cardiopulmonary abnormality.
--- NOTE | 2022-11-21 13:42 | ECG_ITS ---
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 Measurements Intervals [place] Rate: 82 P: 62 NM: 111 QRS: 81 QRSD: 97 T: 76 QT: 414 QTc: 485 Interpretive Statements SINUS RHYTHM WITH SHORT NM INTERVAL Compared to ECG 09/07/2022 21:43:09 Short NM interval now present Atrial abnormality no longer present Electronically Signed On 11-21-2022 14:46:14 CDT by Oseas Junior M.D. [id number]
[2022-11-21 14:06] LABS: Basophils % 0.5 %; Eosinophils # 0.1 10^3/uL (0.0-0.8); Eosinophils % 2.4 %; Hematocrit 40.4 % (36-47); Lymphocytes # 1.6 10^3/uL (0.8-4.8); Lymphocytes % 28.7 %; Mean Corpuscular HGB Conc 32.4 g/dL (30-55); Mean Corpuscular Hemoglobin 29.9 pg (27-33); Mean Corpuscular Volume 92.2 fl (85-98); Mean Platelet Volume 10.5 fL (7.4-10.4); Monocytes # 0.7 10^3/uL (0.2-0.9); Monocytes % 12.4 %; Neutrophils # 3.04 10^3/uL (1.8-7.7); Neutrophils % 55.6 %; Nucleated Red Blood Cells % 0 %; Platelet Count 153 10^3/cmm (157-399); Red Blood Count 4.38 10^6/uL (3.85-5.65); Red Cell Distribution Width 14.1 % (12.1-15.1); White Blood Count 5.47 10^3/uL (3.29-11.43)
[2022-11-21] MEDS: sodium chloride 0.9% 1,000 ML 999 ML IV (14:15)
[2022-11-21] MEDS: metoclopramide 5 mg/mL SDV 2 mL 10 MG IVP (14:17)
[2022-11-21] MEDS: diphenhydrAMINE 50 mg/mL SDV 1mL IVP (14:20)
[2022-11-21 14:22] VITALS: RESP 17; O2SAT 98
[2022-11-21] MEDS: morphine 4 mg/mL SDV 1 mL IVP (14:22)
[2022-11-21 14:31] LABS: Alanine Aminotransferase 19 U/L (0-33); Albumin Level 3.3 g/dL (3.5-5.2); Alkaline Phosphatase 86 U/L (35-105); Blood Urea Nitrogen 9 mg/dL (6-20); Calcium 8.7 mg/dL (8.5-10.5); Carbon Dioxide 24 mmol/L (22-29); Chloride 102 mmol/L (98-107); Globulin 3.8 g/dL (1.3-4.6); Glomerular Filtration Rate 106.7 mL/min (90-130); Glucose 117 mg/dL (65-115); Lipase 31 U/L (13-60); Osmolality Calculated 282 mOsm/kg (285-295); Sodium 136 mmol/L (136-145); Total Bilirubin 0.5 mg/dL (0.15-1.2); Total Protein 7.1 g/dL (6.6-8.7)
[2022-11-21 14:35] LABS: Aspartate Amino Transferase 36 U/L (0-32)
[2022-11-21] MEDS: HYDROmorphone 1 mg/mL INJ 1 mL IVP (14:51)
[2022-11-21 15:35] VITALS: BP 170/127; PULSE 81; O2SAT 100
== END 2022-11-21 15:35 | disposition home or self-care (01) ==
PROVIDERS: Physician Assistant; Emergency Provider Emergency Medicine; PCP Family Medicine
DX: R11.2 Nausea with vomiting, unspecified (principal); Z79.4 Long term (current) use of insulin; Z87.891 Personal history of nicotine dependence; Z86.19 Personal history of other infectious and parasitic diseases; J44.9 Chronic obstructive pulmonary disease, unspecified; E11.9 Type 2 diabetes mellitus without complications; I10 Essential (primary) hypertension; Z86.711 Personal history of pulmonary embolism; G89.29 Other chronic pain; Z95.0 Presence of cardiac pacemaker; G40.909 Epilepsy, unspecified, not intractable, without status epilepticus; I26.94 Multiple subsegmental thrombotic pulmonary emboli without acute cor pulmonale
CPT/HCPCS: 71045; 80053; 83690; 85025; 93005; 96361; 96374; 96375; 99214; 99285; J1170; J1200; J2270; J2765; J7030

== ENCOUNTER 2022-11-23 07:57 | Emergency (ER) | payer MEDICAID, SELFPAY ==
[2022-11-23] VITALS (9 sets, daily range): BP systolic 162–220; BP diastolic 92–145; PULSE 74–102; RESP 19–23; TEMP 36.4; O2SAT 95–100; BMI 27.1
[2022-11-23] MEDS: promethazine 25 mg/mL SDV 1 mL IM (08:21)
--- NOTE | 2022-11-23 08:26 | W.ED.HA ---
HPI - Headache General: Chief Complaint: Headache Stated Complaint: migraine symptoms Time Seen by Provider: 11/23/22 07:58 Source: patient Mode of arrival: ambulatory History of Present Illness: 47-year-old female with a history of migraines presents emergency room with headache pain with nausea and vomiting similar to has had in the past. She is not able to keep any medications down. Initially she denied any abdominal pain later states she began to have some right upper quadrant abdominal discomfort that resolved as well. No fever sweats chills no dysuria urgency or frequency. No change in vision although she is photophobic. She tried Imitrex at home with no relief. MD elicited complaint: migraine Onset (ago): day(s) Onset description: gradually Location: frontal Severity: moderate Quality & Timing: throbbing Exacerbating factors: none, light and noise Relieving factors: nothing Associated symptoms: Deny chest pain, confusion, cough, diaphoresis, eye pain, eye redness, fever(s), lightheadedness, loss of vision, malaise, nausea, neck stiffness, numbness, paresthesias, photophobia, pre-syncope, rash, seizures, short of breath, sound sensitivity, syncope, vomiting or weakness Treatments prior to arrival: acetaminophen, prescription analgesic and migraine medication Review of Systems Const: Denies: fever(s), malaise or diaphoresis Card: Denies: chest pain, lightheadedness, syncope or pre-syncope GI: Denies: nausea or vomiting Skin/Breast: Denies: rash Neuro: Denies: confusion PFSH ED PFSH: Medical History Accidental fentanyl overdose Bilateral pulmonary embolism Cardiac arrest Chronic abdominal pain Chronic hepatitis B Chronic hip pain Cirrhosis COPD (chronic obstructive pulmonary disease) Chronically on 3 L of oxygen Diabetes mellitus Encephalopathy Gastroesophageal reflux GI bleeding Hepatitis B Hypertension Hypokalemia Hypothyroidism 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 Metabolic encephalopathy Nicotine dependence, cigarettes, with unspecified nicotine-induced disorders Overdose Pain management contract signed Pelvic inflammatory disease Presence of permanent cardiac pacemaker Pulmonary embolism Seizure disorder Smoker SSS (sick sinus syndrome) Stomach cancer Thrombocytopenia Tobacco dependency Surgical History H/O right hemicolectomy H/O tubal ligation History of hysterectomy History of laparotomy History of right hemicolectomy Family History Mother Diabetes Father CAD (coronary artery disease) Other Cancer Social History Smoking and tobacco status: former smoker Quit status (tobacco): has quit using tobacco Year quit tobacco: 2020 Former quit date comment: 2ppd x 26 year Hx Alcohol intake: never Substance/Drug Use: never Physical Exam Const: GENERAL APPEARANCE: cooperative and comfortable ORIENTATION/CONSCIOUSNESS: Yes awake, Yes oriented to person, Yes oriented to place and Yes oriented to time HENMT: COMMON NORMALS: normocephalic, atraumatic and hearing grossly normal bilaterally HEAD & SCALP: normocephalic and atraumatic Eye: DIRECT OPHTHALMOSCOPY: No photophobia Resp: COMMON NORMALS: normal respiratory effort, No retractions, No use of accessory muscles and clear to auscultation bilaterally AUSCULTATION: clear to auscultation bilaterally Cardio: COMMON NORMALS: regular rate, regular rhythm and No murmurs present (Cardio) RATE: regular rate RHYTHM: regular rhythm GI: COMMON NORMALS: Soft to palpation and No hepatosplenomegaly present AUSCULTATION: Yes normoactive bowel sounds PALPATION: Yes Soft to palpation, No Tenderness to palpation present (GI), No Guarding due to palpation present (GI) and Yes No hepatosplenomegaly present Extremity: COMMON NORMALS: normal to inspection, capillary refill normal, no clubbing, cyanosis or edema, no calf tenderness and no pedal edema Neuro: SENSORIUM/ORIENTATION: Yes oriented to person, Yes oriented to place and Yes oriented to time Skin: COMMON NORMALS: no rashes or lesions noted GENERAL SKIN EXAM: no rashes or lesions noted Course Vital Signs: Vital signs: Vital Signs Temperature 97.6 F 11/23/22 08:03 Pulse Rate 100 11/23/22 13:35 Respiratory Rate 19 H 11/23/22 08:51 Blood Pressure 175/101 11/23/22 13:43 Pulse Oximetry 96 11/23/22 13:35 Oxygen Delivery Me thod Room Air 11/23/22 13:35 MDM - Headache Medical Decision Making After multiple medications patient's improved she began complaint abdominal pain laboratory studies done no significant findings headache resolved and abdominal pain resolved blood pressure remained elevated was given blood pressure medications that eventually did improve. Patient discharged home on amlodipine 10 mg daily continue other medications follow-up with primary care doctor. Medical Records I reviewed the patient's medical records. Lab Data I reviewed the patient's lab results. 11/23/22 08:49 11/23/22 08:49 Laboratory Results WBC 8.80 10^3/uL (3.29-11.43) 11/23/22 08:49 RBC 4.46 10^6/uL (3.85-5.65) 11/23/22 08:49 Hgb 13.40 g/dL (11.27-16.99) 11/23/22 08:49 Hct 40.7 % (36-47) 11/23/22 08:49 MCV 91.3 fl (85-98) 11/23/22 08:49 MCH 30.0 pg (27-33) 11/23/22 08:49 MCHC 32.9 g/dL (30-55) 11/23/22 08:49 RDW 14.3 % (12.1-15.1) 11/23/22 08:49 Plt Count 182 10^3/cmm (157-399) 11/23/22 08:49 MPV 11.2 fL (7.4-10.4) H 11/23/22 08:49 Neut % (Auto) 64.9 % 11/23/22 08:49 Lymph % (Auto) 19.2 % 11/23/22 08:49 [place] % (Auto) 12.4 % 11/23/22 08:49 Eos % (Auto) 2.3 % 11/23/22 08:49 Baso % (Auto) 0.6 % 11/23/22 08:49 Neut # (Auto) 5.72 10^3/uL (1.8-7.7) 11/23/22 08:49 Lymph # (Auto) 1.7 10^3/uL (0.8-4.8) 11/23/22 08:49 [place] # (Auto) 1.1 10^3/uL (0.2-0.9) H 11/23/22 08:49 Eos # (Auto) 0.2 10^3/uL (0.0-0.8) 11/23/22 08:49 Baso # (Auto) 0.1 10^3/uL (0.0-0.1) 11/23/22 08:49 Nucleated RBC % (auto) 0 % 11/23/22 08:49 Nucleated RBCs # 0.0 /100WBC 11/23/22 08:49 Sodium 144 mmol/L (136-145) 11/23/22 08:49 Potassium 3.7 mmol/L (3.5-5.1) 11/23/22 08:49 Chloride 105 mmol/L (98-107) 11/23/22 08:49 Carbon Dioxide 28 mmol/L (22-29) 11/23/22 08:49 Anion Gap 14.7 (5-19) 11/23/22 08:49 BUN 8 mg/dL (6-20) 11/23/22 08:49 Creatinine 0.5 mg/dL (0.5-0.9) 11/23/22 08:49 GFR Calculation 131.7 mL/min (90-130) H 11/23/22 08:49 Glucose 123 mg/dL (65-115) H 11/23/22 08:49 Calculated Osmolality 298 mOsm/kg (285-295) H 11/23/22 08:49 Calcium 9.4 mg/dL (8.5-10.5) 11/23/22 08:49 Total Bilirubin 0.5 mg/dL (0.15-1.2) 11/23/22 08:49 AST 34 U/L (0-32) H 11/23/22 08:49 ALT 20 U/L (0-33) 11/23/22 08:49 Alkaline Phosphatase 100 U/L (35-105) 11/23/22 08:49 Total Protein 8.1 g/dL (6.6-8.7) 11/23/22 08:49 Albumin 3.8 g/dL (3.5-5.2) 11/23/22 08:49 Globulin 4.3 g/dL (1.3-4.6) 11/23/22 08:49 Discharge Plan Discharge Patient Disposition: Home Clinical Impression: Migraine, Abdominal pain, HTN (hypertension) Condition: Stable Prescriptions: New amlodipine 10 mg tablet 10 mg PO DAILY Qty: 30 0RF No Action gabapentin 300 mg capsule See Rx Instructions .ROUTE .COMPLEX Rx Instructions: (tapering dose in retirement started 08/30/22) 300mg po bedtime for 7 days then stop Creon 3,000-9,500- 15,000 unit capsule,delayed release(DR/EC) 1 cap PO TID ondansetron HCl 8 mg Tablet 8 mg PO BID Qty: 10 0RF Rx Instructions: for 5 days levothyroxine 50 mcg tablet 50 mcg PO QAM Qty: 60 2RF pantoprazole 40 mg tablet,delayed release (DR/EC) 40 mg PO BID Qty: 60 0RF lamotrigine 100 mg Tablet 200 mg PO DAILY Qty: 120 2RF metoclopramide HCl [Reglan] 10 mg tablet 10 mg PO Q6H PRN (Reason: nausea and vomiting) Qty: 20 0RF Lantus U-100 Insulin 100 unit/mL solution See Rx Instructions .ROUTE .COMPLEX Rx Instructions: unit subcutaneously 20 UNITS QAM AND 40 UNITS QPM oxycodone 30 mg tablet See Rx Instructions .ROUTE .COMPLEX Rx Instructions: DIRECTED morphine 15 mg tablet 15 mg PO DAILY PRN (Reason: Migraine Headache) Discharge Orders: Discharge ED (Routine); Ordered 11/23/22 Ordered By: Lane Gaffney Referrals: Francisco Mckinley DO [Primary Care Provider] - Discharge Diet: Clear Liquid Discharge Activity: Increase activity as tolerated Patient Instructions: Abdominal Pain (ED), Opioid Safety, Pain Management Coding Level of Care Code 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
[2022-11-23] MEDS: diphenhydrAMINE 50 mg/mL SDV 1mL IVP (08:35)
[2022-11-23] MEDS: valproic acid inj 500 MG in sodium chloride 0.9% 50 ML 55 MG IV (08:38)
[2022-11-23] MEDS: hyDRALAzine 20 mg/mL INJ 1 mL 10 MG IVP (08:47)
[2022-11-23 10:05] LABS: Basophils # 0.1 10^3/uL (0.0-0.1); Basophils % 0.6 %; Eosinophils # 0.2 10^3/uL (0.0-0.8); Eosinophils % 2.3 %; Hematocrit 40.7 % (36-47); Lymphocytes # 1.7 10^3/uL (0.8-4.8); Lymphocytes % 19.2 %; Mean Corpuscular HGB Conc 32.9 g/dL (30-55); Mean Corpuscular Volume 91.3 fl (85-98); Mean Platelet Volume 11.2 fL (7.4-10.4); Monocytes # 1.1 10^3/uL (0.2-0.9); Monocytes % 12.4 %; Neutrophils # 5.72 10^3/uL (1.8-7.7); Neutrophils % 64.9 %; Nucleated Red Blood Cells % 0 %; Platelet Count 182 10^3/cmm (157-399); Red Blood Count 4.46 10^6/uL (3.85-5.65); Red Cell Distribution Width 14.3 % (12.1-15.1)
[2022-11-23 10:14] LABS: Alanine Aminotransferase 20 U/L (0-33); Albumin Level 3.8 g/dL (3.5-5.2); Alkaline Phosphatase 100 U/L (35-105); Anion Gap 14.7 (5-19); Aspartate Amino Transferase 34 U/L (0-32); Blood Urea Nitrogen 8 mg/dL (6-20); Calcium 9.4 mg/dL (8.5-10.5); Carbon Dioxide 28 mmol/L (22-29); Chloride 105 mmol/L (98-107); Creatinine Clr Calc Pharmacy 174.0975; Globulin 4.3 g/dL (1.3-4.6); Glomerular Filtration Rate 131.7 mL/min (90-130); Glucose 123 mg/dL (65-115); Osmolality Calculated 298 mOsm/kg (285-295); Potassium 3.7 mmol/L (3.5-5.1); Sodium 144 mmol/L (136-145); Total Bilirubin 0.5 mg/dL (0.15-1.2); Total Protein 8.1 g/dL (6.6-8.7)
[2022-11-23] MEDS: sodium chloride 0.9% 1,000 ML 999 ML IV (10:56)
[2022-11-23] MEDS: lidocaine 2% viscous 15 ML, aluminum-mag hydrox-simethicon 30 ML, sucralfate oral liq 1 GM PO (11:00)
[2022-11-23] MEDS: ketorolac 30 mg/mL INJ IVP (11:02)
[2022-11-23] MEDS: dihydroergotamine 1 mg/mL Inj IVP (11:11)
[2022-11-23] MEDS: amlodipine 10 mg Tablet PO (12:15)
[2022-11-23] MEDS: hyDRALAzine 20 mg/mL INJ 1 mL IVP (12:15)
[2022-11-23] MEDS: labetalol 5 mg/mL SDV 20mL 10 MG IVP (12:58)
== END 2022-11-23 13:47 | disposition home or self-care (01) ==
PROVIDERS: Emergency Provider Family Medicine; PCP Family Medicine
DX: G43.909 Migraine, unspecified, not intractable, without status migrainosus (principal); I10 Essential (primary) hypertension; R10.9 Unspecified abdominal pain; Z79.4 Long term (current) use of insulin; Z87.891 Personal history of nicotine dependence; Z86.19 Personal history of other infectious and parasitic diseases; J44.9 Chronic obstructive pulmonary disease, unspecified; E11.9 Type 2 diabetes mellitus without complications; Z99.81 Dependence on supplemental oxygen; Z95.0 Presence of cardiac pacemaker; Z85.028 Personal history of other malignant neoplasm of stomach
CPT/HCPCS: 80053; 85025; 96365; 96372; 96375; 96376; 99284; J0360; J1110; J1200; J1885; J2550; J3490; J7030

== ENCOUNTER 2023-01-22 13:54 | Emergency (ER) | payer MEDICAID, SELFPAY ==
[2023-01-22 14:00] VITALS: BP 130/90; PULSE 87; RESP 17; TEMP 36.7; O2SAT 97; BMI 26.5
[2023-01-22 15:30] LABS: Basophils # 0.1 10^3/uL (0.0-0.1); Eosinophils # 0.1 10^3/uL (0.0-0.8); Eosinophils % 1.2 %; Hematocrit 40.9 % (36-47); Lymphocytes # 2.1 10^3/uL (0.8-4.8); Lymphocytes % 28.8 %; Mean Corpuscular Hemoglobin 29.7 pg (27-33); Mean Platelet Volume 11.1 fL (7.4-10.4); Monocytes # 0.8 10^3/uL (0.2-0.9); Monocytes % 10.7 %; Neutrophils # 4.18 10^3/uL (1.8-7.7); Neutrophils % 57.7 %; Nucleated Red Blood Cells % 0 %; Platelet Count 171 10^3/cmm (157-399); Red Blood Count 4.81 10^6/uL (3.85-5.65); White Blood Count 7.23 10^3/uL (3.29-11.43)
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
--- NOTE | 2023-01-22 15:51 | XR_ITS ---
WS: [id number] ABDOMEN 1 VIEW(S) HISTORY: constipation COMPARISON: 05/08/2022 Inspissated fecal material throughout the colon. No obstructive pattern. Tortuous colon due to longst anding obstruction. There is a small amount of increasing air in the distal small bowel probably due to the fecal retention. No suspicious calcifications or masses. No bone abnormality. IMPRESSION: Moderate fecal retention with inspissation. Progressed since 05/08/2022. No obstruction.
[2023-01-22 16:28] VITALS: PULSE 69; RESP 16; O2SAT 98
[2023-01-22] MEDS: albuterol 2.5 mg/3 mL Neb INHALATION (16:30)
[2023-01-22 16:36] VITALS: PULSE 78
[2023-01-22 17:09] LABS: Alanine Aminotransferase 27 U/L (0-33); Albumin Level 3.3 g/dL (3.5-5.2); Alkaline Phosphatase 94 U/L (35-105); Aspartate Amino Transferase 46 U/L (0-32); Blood Urea Nitrogen 10 mg/dL (6-20); Calcium 9.1 mg/dL (8.5-10.5); Carbon Dioxide 28 mmol/L (22-29); Chloride 99 mmol/L (98-107); Globulin 4.4 g/dL (1.3-4.6); Glomerular Filtration Rate 106.7 mL/min (90-130); Glucose 95 mg/dL (65-115); Lipase 18 U/L (13-60); Osmolality Calculated 287 mOsm/kg (285-295); Sodium 139 mmol/L (136-145); Total Bilirubin 0.9 mg/dL (0.15-1.2); Total Protein 7.7 g/dL (6.6-8.7)
[2023-01-22 17:16] LABS: Add Urine Microscopic? NO; Charge for UA Resulting for Rev
[2023-01-22 17:30] LABS: Bilirubin Urine Neg (Negative); Blood Urine Neg (Negative); Glucose Urine UA Norm (Normal); Ketones Urine Negative (Negative); Leukocyte Esterase Urine Negative (Negative); Nitrate Urine Negative (Negative); Protein Urine Neg (Negative); Specific Gravity, Urine 1.005 (1.005-1.030); Urine Appearance Clear (CLEAR); Urine Color Yellow (Yellow); Urobilinogen Urine 8 mg/dL (Negative); pH Urine 7 (5-7)
[2023-01-22] MEDS: ondansetron 2 mg/ML SDV 2 mL 4 MG IVP (17:30)
[2023-01-22] MEDS: HYDROcodone-acetaminophen 5-325 mg Tablet 1 TAB PO (18:17)
[2023-01-22] MEDS: potassium chloride oral liq 20 mEq/15 mL UDC 40 MEQ PO (18:17)
== END 2023-01-22 18:35 | disposition home or self-care (01) ==
PROVIDERS: Emergency Medicine; Emergency Provider Family Medicine; PCP Family Medicine
DX: G89.29 Other chronic pain (principal); R10.32 Left lower quadrant pain; R11.2 Nausea with vomiting, unspecified; Z79.4 Long term (current) use of insulin; Z86.19 Personal history of other infectious and parasitic diseases; J44.9 Chronic obstructive pulmonary disease, unspecified; Z99.81 Dependence on supplemental oxygen; E11.9 Type 2 diabetes mellitus without complications; I10 Essential (primary) hypertension; Z95.0 Presence of cardiac pacemaker; Z85.028 Personal history of other malignant neoplasm of stomach; Z87.891 Personal history of nicotine dependence
CPT/HCPCS: 36415; 74018; 80053; 81003; 83690; 85025; 94640; 96374; 99284; J2405; J7613

== ENCOUNTER → 2023-03-28 12:49 | Outpatient (BNVA) | payer MEDICAID, SELFPAY | PROVIDERS: PCP Family Medicine; Visit Provider Internal Medicine Cardiovascular Disease | DX: Z45.010 Encounter for checking and testing of cardiac pacemaker pulse generator [battery] (principal) | CPT/HCPCS: 93296 ==

== ENCOUNTER 2023-04-27 12:32 | Emergency (ER) | payer MEDICAID, SELFPAY ==
[2023-04-27 12:43] VITALS: BP 69/51; PULSE 93; RESP 16; TEMP 36.8; O2SAT 98
[2023-04-27 12:55] LABS: Glucose Point of Care 140 mg/dL (70-110)
--- NOTE | 2023-04-27 12:56 | ECG_ITS ---
[facility] Test Date: 2023-04-27 Pat Name: Maribell Foreman Department: Room: Gender: Female [employer]: : 1975 Requested By: Dayna Boles Order Number: [id number] Rowland MD: Oseas Junior M.D. Measurements Intervals [place] Rate: 101 P: 78 MI: 141 QRS: 71 QRSD: 101 T: 77 QT: 359 QTc: 467 Interpretive Statements SINUS TACHYCARDIA RIGHT ATRIAL ENLARGEMENT [0.3mV P-WAVE] POSSIBLE LEFT ATRIAL ENLARGEMENT [-0.1mV P-WAVE IN V1/V2] LEFT VENTRICULAR HYPERTROPHY AND ST-T CHANGE [VOLTAGE CRITERIA PLUS ST/T ABNORMALITY] Compared to ECG 11/21/2022 13:42:37 Atrial abnormality now present Left ventricular hypertrophy now present ST (T wave) deviation now present Sinus rhythm no longer present Short MI interval no longer present Electronically Signed On 04-28-2023 5:56:38 BLADDER BLOWER by Oseas Junior M.D. [id number]
--- NOTE | 2023-04-27 12:56 | XR_ITS ---
WS: [id number] XR chest 1V [id number] REASON FOR EXAM: weakness FINDINGS: The examination is unchanged compared to 11/21/2022. Cardiac device over the left chest with trans left subclavian vein leads to the right atrium and righ t ventricular apex. Moderate tortuosity of the thoracic aorta with normal heart size. Calcified granulomas disease in both hemithoraces. No acute or subacute pulmonary parenchymal or pleural abnormality. IMPRESSION: No acute chest abnormality.
--- NOTE | 2023-04-27 12:56 | CT_ITS ---
WS: [id number] CT HEAD TECHNIQUE: Noncontrast CT of the head obtained from the skullbase to the vertex. CLINICAL INFORMATION: fall, head injury COMPARISON: CT 09/07/2022 DLP: 1642.[address] scans at [facility] use at least one of these dose optimization techniques: automated e xposure control; mA and/or kV adjustment per patient size (includes targeted exams where dose is matc hed to clinical indication); or iterative reconstruction. FINDINGS: No evidence of intracranial hemorrhage or mass effect. Ventricular system and basal cisterns are aquino nt. No extra-axial fluid collections. No evidence of mass or mass effect. Normal villatoro-white different iation. Paranasal sinuses and mastoid air cells are well aerated. .Normal visualized soft tissues. IMPRESSION: 1. No evidence of intracranial hemorrhage or mass effect. 2. No acute intracranial findings.
--- NOTE | 2023-04-27 12:56 | CT_ITS ---
WS: [id number] CT CERVICAL TRAUMA TECHNIQUE: Noncontrast CT of the cervical spine with coronal and sagittal reformatted images. CLINICAL INFORMATION: fall, neck pain COMPARISON: None. DLP: 1642.[address] scans at [facility] use at least one of these dose optimization techniques: automated e xposure control; mA and/or kV adjustment per patient size (includes targeted exams where dose is matc hed to clinical indication); or iterative reconstruction. FINDINGS: Straightening of the normal cervical lordosis. Slight anterolisthesis C3 on C4. Anterior hypertrophic changes at C6-7. Normal craniocervical junction. Normal C1-C2 articulation. Dens is normal in appear ance. Normal occipital condyles. No high-grade spinal canal narrowing. Normal C1 ring. No evidence of acute fracture or dislocation. Normal prevertebral soft tissues. Mastoids air cells are well aerated. IMPRESSION: No evidence of acute fracture or dislocation. .
--- NOTE | 2023-04-27 12:57 | XR_ITS ---
WS: [id number] XR ankle LT min 3V* [id number] REASON FOR EXAM: fall, ankle pain FINDINGS: Soft tissue swelling over the lateral malleolus. No acute fracture identified. Joint spaces of the left ankle are intact and relatively well preserved. IMPRESSION: Soft tissue swelling with no acute bone or joint abnormality identified.
--- NOTE | 2023-04-27 12:57 | W.ED.SYNCOPE ---
HPI - Syncope General: Chief Complaint: Syncope Stated Complaint: passing out, fell, left ankle injury Time Seen by Provider: 04/27/23 12:53 History of Present Illness: 47-year-old female presents the emergency room with syncope. She has had multiple episodes over the last couple of weeks. She went saw her primary care physician yesterday and says that her blood pressure was normal at the time. However she is hypotensive on presentation now. She presents because she has had 2 more syncopal episodes over the last 24 hours. She says she hit her head. She is having neck pain. She is having left ankle pain. No obvious deformity. Some mild swelling. She says she will feel lightheaded and then everything will go black. She is not have any chest pain. No shortness of breath. No abdominal pain. She has diabetes and says she has not been eating much and has not been checking her sugars. No known fevers. No lower extremity swelling. No chest pain. No shortness of breath. No abdominal pain. No nausea or vomiting. Review of Systems Narrative: Constitutional symptoms: Negative except as documented in HPI. Skin symptoms: Negative except as documented in HPI. Eye symptoms: Negative except as documented in HPI. ENMT symptoms: Negative except as documented in HPI. Respiratory symptoms: Negative except as documented in HPI. Cardiovascular symptoms: Negative except as documented in HPI. Gastrointestinal symptoms: Negative except as documented in HPI. Genitourinary symptoms: Negative except as documented in HPI. Musculoskeletal symptoms: Negative except as documented in HPI. Neurologic symptoms: Negative except as documented in HPI. Psychiatric symptoms: Negative except as documented in HPI. Endocrine symptoms: Negative except as documented in HPI. 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 Metabolic encephalopathy Nicotine dependence, cigarettes, with unspecified nicotine-induced disorders Overdose Pain management contract signed Pelvic inflammatory disease Presence of permanent cardiac pacemaker Pulmonary embolism Seizure disorder Smoker SSS (sick sinus syndrome) Stomach cancer Thrombocytopenia Tobacco dependency Surgical History H/O right hemicolectomy H/O tubal ligation History of hysterectomy History of laparotomy History of right hemicolectomy Family History Mother Diabetes Father CAD (coronary artery disease) Other Cancer Social History Smoking and tobacco/nicotine status: former use of tobacco/nicotine Quit status (tobacco/nicotine): has quit using Year quit tobacco: 2020 Former quit date comment: 2ppd x 26 year Hx Alcohol intake: never Substance/Drug Use: never Physical Exam Narrative: EXAM NARRATIVE: General: Alert, no acute distress. Skin: Warm, dry. Head: Normocephalic, atraumatic. Neck: Supple, trachea midline. Eye: Extraocular movements are intact. Ears, nose, mouth and throat: mucosa moist. Cardiovascular: Regular, Normal peripheral perfusion. Respiratory: Lungs are clear to auscultation, respirations are non-labored, breath sounds are equal, Symmetrical chest wall expansion. Gastrointestinal: Soft, Nontender, Non distended, Normal bowel sounds. Musculoskeletal: Normal ROM, no deformity. Neurological: Alert and oriented to person, place, time, and situation, No focal neurological deficit observed. Psychiatric: Cooperative, appropriate mood & affect. Course Vital Signs: Vital signs: Vital Signs Temperature 98.2 F 04/27/23 12:43 Pulse Rate 76 04/27/23 15:13 Respiratory Rate 14 04/27/23 15:13 Blood Pressure 118/85 04/27/23 15:30 Pulse Oximetry 98 04/27/23 15:13 Oxygen Delivery Me thod Room Air 04/27/23 15:13 MDM - Syncope Medical Decision Making Medical decision making: Differential diagnosis including but not limited to: Workup based on differential diagnosis: EKG: Time 1242 rate 101. Sinus tachycardia. Some LVH. Nonspecific ST changes. no ectopy, normal NC & QRS intervals, This was reviewed and interpreted by myself the ER physician. Chest x-ray: No acute process. No pneumothorax. No infiltrate. No cardiomegaly. This was reviewed and interpreted by myself the ER physician. CT head: No acute intracranial process. no intracranial hemorrhage, no evidence of infarct. no evidence of acute fracture.This was reviewed and interpreted by myself the ER physician. CT of the cervical spine: No fracture. Good alignment. No step-offs. This was reviewed and interpreted by myself the emergency room physician. X-ray of the left ankle: No fracture. No dislocation. There is some soft tissue swelling. This was reviewed and interpreted by myself the emergency room physician. Lab work notable for urinary tract infection and some mild renal insufficiency. This is consistent with dehydration. Particular given that patient was hypotensive and her blood pressure improved with fluids. Lab Data 04/27/23 13:11 04/27/23 13:11 Laboratory Results WBC 8.19 10^3/uL (3.29-11.43) 04/27/23 13:11 RBC 4.85 10^6/uL (3.85-5.65) 04/27/23 13:11 Hgb 14.70 g/dL (11.27-16.99) 04/27/23 13:11 Hct 42.5 % (36-47) 04/27/23 13:11 MCV 87.6 fl (85-98) 04/27/23 13:11 MCH 30.3 pg (27-33) 04/27/23 13:11 MCHC 34.6 g/dL (30-55) 04/27/23 13:11 RDW 12.9 % (12.1-15.1) 04/27/23 13:11 Plt Count 199 10^3/cmm (157-399) 04/27/23 13:11 MPV 10.2 fL (7.4-10.4) 04/27/23 13:11 Neut % (Auto) 48.7 % 04/27/23 13:11 Lymph % (Auto) 33.6 % 04/27/23 13:11 [place]aines % (Auto) 14.2 % 04/27/23 13:11 Eos % (Auto) 2.4 % 04/27/23 13:11 Baso % (Auto) 0.6 % 04/27/23 13:11 Neut # (Auto) 3.99 10^3/uL (1.8-7.7) 04/27/23 13:11 Lymph # (Auto) 2.8 10^3/uL (0.8-4.8) 04/27/23 13:11 [place]aines # (Auto) 1.2 10^3/uL (0.2-0.9) H 04/27/23 13:11 Eos # (Auto) 0.2 10^3/uL (0.0-0.8) 04/27/23 13:11 Baso # (Auto) 0.1 10^3/uL (0.0-0.1) 04/27/23 13:11 Nucleated RBC % (auto) 0 % 04/27/23 13:11 Nucleated RBCs # 0.0 /100WBC 04/27/23 13:11 Sodium 137 mmol/L (136-145) 04/27/23 13:11 Potassium 3.5 mmol/L (3.5-5.1) 04/27/23 13:11 Chloride 101 mmol/L (98-107) 04/27/23 13:11 Carbon Dioxide 24 mmol/L (22-29) 04/27/23 13:11 Anion Gap 15.5 (5-19) 04/27/23 13:11 BUN 15 mg/dL (6-20) 04/27/23 13:11 Creatinine 1.4 mg/dL (0.5-0.9) H 04/27/23 13:11 GFR Calculation 40.1 mL/min (90-130) L 04/27/23 13:11 Glucose 110 mg/dL (65-115) 04/27/23 13:11 POC Glucose 140 mg/dL (70-110) H 04/27/23 12:48 Calculated Osmolality 285 mOsm/kg (285-295) 04/27/23 13:11 Lactic Acid 2.7 mmol/L (0.5-2.2) H 04/27/23 13:11 Calcium 9.4 mg/dL (8.5-10.5) 04/27/23 13:11 Total Bilirubin 0.7 mg/dL (0.15-1.2) 04/27/23 13:11 AST 31 U/L (0-32) 04/27/23 13:11 ALT 19 U/L (0-33) 04/27/23 13:11 Alkaline Phosphatase 102 U/L (35-105) 04/27/23 13:11 Troponin T Baseline 29 ng/L (0-10) H 04/27/23 13:11 C-Reactive Protein 3.0 mg/L (0.0-4.9) 04/27/23 13:11 Total Protein 7.5 g/dL (6.6-8.7) 04/27/23 13:11 Albumin 3.7 g/dL (3.5-5.2) 04/27/23 13:11 Globulin 3.8 g/dL (1.3-4.6) 04/27/23 13:11 Urine Color Yellow (Yellow) 04/27/23 14:00 Urine Appearance Hazy (CLEAR) A 04/27/23 14:00 Urine pH 6 (5-7) 04/27/23 14:00 Ur Specific [place] 1.015 (1.005-1.030) 04/27/23 14:00 Urine Protein Neg (Negative) 04/27/23 14:00 Urine Glucose (UA) Norm (Normal) 04/27/23 14:00 Urine Ketones Negative (Negative) 04/27/23 14:00 Urine Blood 2+ (Negative) H 04/27/23 14:00 Urine Nitrate Negative (Negative) 04/27/23 14:00 Urine Bilirubin Neg (Negative) 04/27/23 14:00 Urine Urobilinogen 1 mg/dL (Negative) H 04/27/23 14:00 Ur Leukocyte Esterase 1+ (Negative) H 04/27/23 14:00 Urine RBC 0-4 /hpf (0-2) H 04/27/23 14:00 Urine WBC 0-4 /hpf (0-5) H 04/27/23 14:00 Ur Squamous Epith Cells 15-25 /hpf (0-5) H 04/27/23 14:00 Amorphous Sediment Not Reportable 04/27/23 14:00 Urine Bacteria 2+ /hpf (NONE) H 04/27/23 14:00 Coronavirus 229E (PCR) Not detected (NOT DETECT) 04/27/23 13:36 Influenza A (H1) PCR Not detected (NOT DETECT) 04/27/23 13:36 Influ A (H1/09) PCR Not detected (NOT DETECT) 04/27/23 13:36 Influenza A (H3) PCR Not detected (NOT DETECT) 04/27/23 13:36 Influenza Type A Ag Cancelled 04/27/23 13:36 Influenza Type A (PCR) Not detected (NOT DETECT) 04/27/23 13:36 Influenza Type B Ag Cancelled 04/27/23 13:36 Influenza Type B (PCR) Not detected (NOT DETECT) 04/27/23 13:36 SARS-CoV-2 (PCR) Not detected (NOT DETECT) 04/27/23 13:36 All radiology interpretation(s) finalized by discharge Other Data - Normal saline bolus in the emergency room x 2. Total of 2 L. -IV Rocephin in the emergency room. - Discharged home - Discussed findings and plan with patient. Answered any questions. - All laboratory values were reviewed and interpreted personally by myself, the ER physician - All imaging was reviewed and interpreted personally by myself, the ER physician. - Evaluation and treatment of this problem were appropriate in the emergency setting Discharge Plan Discharge Patient Disposition: Home Clinical Impression: Dehydration, Hypotension, Syncope, Urinary tract infection Condition: Stable Prescriptions: New cefdinir 300 mg capsule 300 mg PO BID 5 Days Qty: 10 0RF tramadol 50 mg tablet 50 mg PO Q8H PRN (Reason: pain) Qty: 20 0RF No Action ipratropium-albuterol 0.5 mg-3 mg(2.5 mg base)/3 mL solution for nebulization 3 ml inhalation Q4H PRN (Reason: wheezing) Qty: 90 3RF gabapentin 300 mg capsule 300 mg PO BEDTIME Creon 3,000-9,500- 15,000 unit capsule,delayed release(DR/EC) 1 cap PO TID levothyroxine 50 mcg tablet 50 mcg PO QAM Qty: 60 2RF pantoprazole 40 mg tablet,delayed release (DR/EC) 40 mg PO BID Qty: 60 0RF metoclopramide HCl [Reglan] 10 mg tablet 10 mg PO Q6H PRN (Reason: nausea and vomiting) Qty: 20 0RF insulin glargine [Lantus U-100 Insulin] 100 unit/mL solution See Rx Instructions .ROUTE .COMPLEX Rx Instructions: INJECT 20 UNITS IN THE MORNING AND 40 UNITS IN THE EVENING. oxycodone 30 mg tablet 30 mg PO Q4H PRN (Reason: Pain) Rx Instructions: DIRECTED lamotrigine 200 mg tablet 200 mg PO DAILY morphine 30 mg tablet extended release 30 mg PO Q12H amitriptyline 50 mg tablet 50 mg PO BEDTIME scopolamine base 1 mg over 3 days patch 3 day 1 patch topical Q3D nifedipine 30 mg tablet extended release 24hr 30 mg PO DAILY furosemide 40 mg tablet 40 mg PO BID tizanidine 4 mg tablet 4 mg PO Q6H PRN (Reason: Spasms) sumatriptan succinate 50 mg tablet See Rx Instructions .ROUTE .COMPLEX Rx Instructions: MAY REPEAT IN TWO HOURS, MAX OF 200MG IN 24 HOURS spironolactone 25 mg tablet 25 mg PO BID potassium chloride 20 mEq/15 mL liquid 20 meq PO DAILY tenofovir disoproxil fumarate 300 mg tablet 300 mg PO DAILY levetiracetam 750 mg tablet 750 mg PO BID Ventolin HFA 90 mcg/actuation HFA aerosol inhaler 2 puff INHALATION Q6H PRN (Reason: Shortness Of Breath) lactulose 10 gram/15 mL solution 90 ml PO TID Discharge Orders: Discharge ED (Routine); Ordered 04/27/23 Ordered By: Dayna Burgos Referrals: Francisco Mckinley DO [Primary Care Provider] - (You have been screened and evaluated and felt safe for discharge. Health conditions do change or evolve sometimes and as such it is important that you follow up with your Primary Doctor to be re checked, 3-5 days is a general good time frame for follow up. You are always welcome to return to the ED for re assessment if your symptoms are worsening or you have new concerns) Patient Instructions: Opioid Safety, Pain Management, Dehydration (ED) Coding Level of Care Code ED [employer] for 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
[2023-04-27 13:18] LABS: Basophils # 0.1 10^3/uL (0.0-0.1); Basophils % 0.6 %; Eosinophils # 0.2 10^3/uL (0.0-0.8); Eosinophils % 2.4 %; Hematocrit 42.5 % (36-47); Lymphocytes # 2.8 10^3/uL (0.8-4.8); Lymphocytes % 33.6 %; Mean Corpuscular HGB Conc 34.6 g/dL (30-55); Mean Corpuscular Hemoglobin 30.3 pg (27-33); Mean Corpuscular Volume 87.6 fl (85-98); Mean Platelet Volume 10.2 fL (7.4-10.4); Monocytes # 1.2 10^3/uL (0.2-0.9); Monocytes % 14.2 %; Neutrophils # 3.99 10^3/uL (1.8-7.7); Neutrophils % 48.7 %; Nucleated Red Blood Cells % 0 %; Platelet Count 199 10^3/cmm (157-399); Red Blood Count 4.85 10^6/uL (3.85-5.65); Red Cell Distribution Width 12.9 % (12.1-15.1); White Blood Count 8.19 10^3/uL (3.29-11.43)
[2023-04-27 13:39] LABS: Alanine Aminotransferase 19 U/L (0-33); Albumin Level 3.7 g/dL (3.5-5.2); Alkaline Phosphatase 102 U/L (35-105); Anion Gap 15.5 (5-19); Aspartate Amino Transferase 31 U/L (0-32); Blood Urea Nitrogen 15 mg/dL (6-20); Calcium 9.4 mg/dL (8.5-10.5); Carbon Dioxide 24 mmol/L (22-29); Chloride 101 mmol/L (98-107); Creatinine Clr Calc Pharmacy 60.0365; Globulin 3.8 g/dL (1.3-4.6); Glomerular Filtration Rate 40.1 mL/min (90-130); Glucose 110 mg/dL (65-115); Osmolality Calculated 285 mOsm/kg (285-295); Potassium 3.5 mmol/L (3.5-5.1); Sodium 137 mmol/L (136-145); Total Bilirubin 0.7 mg/dL (0.15-1.2); Total Protein 7.5 g/dL (6.6-8.7)
[2023-04-27 13:40] LABS: Lactic Sepsis W/Reflex 2.7 mmol/L (0.5-2.2)
[2023-04-27 13:41] LABS: Troponin(5th) Baseline 29 ng/L (0-10)
[2023-04-27 14:11] VITALS: BP 68/52; BP 85/65; BP 98/68; PULSE 100; PULSE 77; PULSE 91
[2023-04-27 14:28] LABS: Add Urine Culture? No; Bacteria Urine 2+ /hpf; Bilirubin Urine Neg (Negative); Blood Urine 2+ (Negative); Glucose Urine UA Norm (Normal); Ketones Urine Negative (Negative); Leukocyte Esterase Urine 1+ (Negative); Nitrate Urine Negative (Negative); Protein Urine Neg (Negative); RBC Urine 0-4 /hpf (0-2); Specific Gravity, Urine 1.015 (1.005-1.030); Squamous Epithelial Cell Urine 15-25 /hpf (0-5); Urine Appearance Hazy (CLEAR); Urine Color Yellow (Yellow); Urobilinogen Urine 1 mg/dL (Negative); WBC Urine 0-4 /hpf (0-5); pH Urine 6 (5-7)
[2023-04-27] MEDS: sodium chloride 0.9% 1,000 ML 999 ML IV ×2 (15:00→16:33)
[2023-04-27 15:02] LABS: Reflex Lactate Order REFLEX LACTIC ORDERD
[2023-04-27 15:13] VITALS: BP 107/73; PULSE 76; RESP 14; O2SAT 98
--- NOTE | 2023-04-27 15:20 | PC.PHAR ---
PT STATES TAKES MORPHINE ER 30 MG EVERY 12 HOURS AND OXYCODONE 30 MG EVERY 4 HOURS NEEDED.
[2023-04-27 15:30] VITALS: BP 118/85
[2023-04-27] MEDS: cefTRIAXone 1,000 MG in sodium chloride 0.9% (plus) 50 ML 100 MG IV (15:41)
[2023-04-27 16:16] LABS: Adenovirus Not Detected (NOT DETECT); Chlamydia Pneumoniae Not Detected (NOT DETECT); Coronavirus 229E,HKU1,NL63,OC4 Not Detected (NOT DETECT); Human Metapneumovirus Not Detected (NOT DETECT); Human Rhinovirus/Enterovirus Not Detected (NOT DETECT); Influenza A Not Detected (NOT DETECT); Influenza A H1 Not Detected (NOT DETECT); Influenza A H1-2009 Not Detected (NOT DETECT); Influenza A H3 Not Detected (NOT DETECT); Influenza B Not Detected (NOT DETECT); Mycoplasma Pneumoniae Not Detected (NOT DETECT); Parainfluenza Virus Type 1 Not Detected (NOT DETECT); Parainfluenza Virus Type 2 Not Detected (NOT DETECT); Parainfluenza Virus Type 3 Not Detected (NOT DETECT); Parainfluenza Virus Type 4 Not Detected (NOT DETECT); Respiratory Syncytial Virus A Not Detected (NOT DETECT); Respiratory Syncytial Virus B Not Detected (NOT DETECT); SARS-COV-2 Not Detected (NOT DETECT)
[2023-04-27 16:19] LABS: Influenza A Not Detected (NOT DETECT); Influenza A H1 Not Detected (NOT DETECT); Influenza A H1-2009 Not Detected (NOT DETECT); Influenza A H3 Not Detected (NOT DETECT); Influenza B Not Detected (NOT DETECT); Results from Genmark
[2023-04-27] MEDS: HYDROcodone-acetaminophen 5-325 mg Tablet 1 TAB PO (16:33)
[2023-04-27 17:01] LABS: Lactic Acid level (Lactate) 1.9 mmol/L (0.5-2.2)
== END 2023-04-27 17:20 | disposition home or self-care (01) ==
PROVIDERS: Emergency Provider Emergency Medicine; PCP Family Medicine
DX: R55 Syncope and collapse (principal); I95.9 Hypotension, unspecified; N39.0 Urinary tract infection, site not specified; E86.0 Dehydration; Z79.4 Long term (current) use of insulin; Z11.52 Encounter for screening for COVID-19; Z87.891 Personal history of nicotine dependence; J44.9 Chronic obstructive pulmonary disease, unspecified; Z86.19 Personal history of other infectious and parasitic diseases; E11.9 Type 2 diabetes mellitus without complications; I10 Essential (primary) hypertension; Z85.028 Personal history of other malignant neoplasm of stomach
CPT/HCPCS: 36415; 36416; 70450; 71045; 72125; 73610; 80053; 81001; 82962; 83605; 84484; 85025; 86140; 87040; 87631; 87635; 93005; 96361; 96365; 99285; J0696; J7030

== ENCOUNTER 2023-08-14 09:59 | Emergency (ER) | payer MEDICAID, SELFPAY ==
[2023-08-14 10:07] VITALS: BP 113/82; PULSE 62; RESP 16; TEMP 36.5; O2SAT 99; BMI 27.1
--- NOTE | 2023-08-14 14:33 | XR_ITS ---
WS: [id number] Exam: XR chest 1V portable [id number] Date/Time of Exam: 08/14/2023 2:34 PM Reason For Exam: dyspnea/cough Comparison 04/27/2023. Lungs are clear and fully inflated. Normal cardiomediastinal silhouette. Permanent cardiac pacer supe rimposes the LEFT chest. Bony structures are intact. XR/XR chest 1V portable [id number] IMPRESSION: 1. No acute cardiopulmonary finding. Stable.
[2023-08-14 14:54] VITALS: BP 172/117; PULSE 60; O2SAT 97
[2023-08-14 15:04] LABS: Add Urine Microscopic? NO; Charge for UA Resulting for Rev
[2023-08-14 15:13] LABS: Bilirubin Urine Neg (Negative); Blood Urine Neg (Negative); Glucose Urine UA Norm (Normal); Ketones Urine 1+ (Negative); Leukocyte Esterase Urine Negative (Negative); Nitrate Urine Negative (Negative); Protein Urine Neg (Negative); Specific Gravity, Urine 1.005 (1.005-1.030); Urine Appearance Clear (CLEAR); Urine Color Yellow (Yellow); Urobilinogen Urine Norm (Negative); pH Urine 7 (5-7)
--- NOTE | 2023-08-14 15:24 | ED_ITS ---
Documented by User: Lane Gaffney DO 08/15/23 04:02 HPI - SOB/Dyspnea 2 General: Chief Complaint: Shortness of Breath/Dyspnea Stated Complaint: sob Time Seen by Provider: 08/14/23 10:25 Source: patient Mode of arrival: ambulatory History of Present Illness: HPI Narrative: 47-year-old female who presents to the e mergency room with complaints of shortness of breath And headache. She also complains of essentially systemic pain to her all all of her extremities. She has a very long and complicated history she is diabetic she is on chronic pain medications history of cirrhosis of the liver with portal hypertension. She denies any hematemesis or coffee- ground emesis. She states she has not taken any of her medications for pain in the last couple of hours. She did take several Imitrex for her headache with no relief. 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) use of opiate analgesic Pain management contract signed Metabolic encephalopathy SSS (sick sinus syndrome) Presence of permanent cardiac pacemaker Seizure disorder Tobacco dependency Hypothyroidism Accidental fentanyl overdose Overdose Cardiac arrest COPD (chronic obstructive pulmonary disease) Chronically on 3 L of oxygen Smoker Thrombocytopenia Bilateral pulmonary embolism Hepatitis B Pulmonary embolism Nicotine dependence, cigarettes, with unspecified nicotine-induced disorders Chronic hepatitis B Chronic abdominal pain Chronic hip pain Leg cramps Stomach cancer Pelvic inflammatory disease Diabetes mellitus Hypertension Encephalopathy Cirrhosis Gastroesophageal reflux GI bleeding Surgical History H/O right hemicolectomy History of right hemicolectomy H/O tubal ligation History of laparotomy History of hysterectomy Family History Mother Diabetes Father CAD (coronary artery disease) Other Cancer Social History Smoking and tobacco/nicotine status: former use of tobacco/nicotine Quit status (tobacco/nicotine): has quit using Year quit tobacco: 2020 Former quit date comment: 2ppd x 26 year Hx Alcohol intake: never Substance/Drug Use: never Physical Exam 2 Const: GENERAL APPEARANCE: cooperative and comfortable O RIENTATION/CONSCIOUSNESS: Yes awake, Yes oriented to person, Yes oriented to place and Yes oriented to time HENMT: COMMON NORMALS: normocephalic, atraumatic and hearing grossly normal bilaterally HEAD & SCALP: normocephalic and atraumatic Resp: COMMON NORMALS: normal respiratory effort, No retractions and No use of accessory muscles AUSCULTATION: wheezes Cardio: COMMON NORMALS: regular rate, regular rhythm and No murmurs present (Cardio) RATE: regular rate RHYTHM: regular rhythm GI: COMMON NORMALS: Soft to palpation AUSCULTATION: Yes normoactive bowel sounds PALPATION: Yes Soft to palpation, No Tenderness to palpation present (GI), No Guarding due to palpation present (GI) and Yes Hepatomegaly present Extremity: COMMON NORMALS: normal to inspection, capillary refill normal, no clubbing, cyanosis or edema, no calf tenderness and no pedal edema Neuro: SENSORIUM/ORIENTATION: Yes oriented to person, Yes oriented to place and Yes oriented to time Skin: COMMON NORMALS: no rashes or lesions noted GENERAL SKIN EXAM: no rashes or lesions noted Course 2 Vital Signs: Vital signs: Vital Signs Temperature 97.7 F 08/14/23 10:07 Pulse Rate 80 08/14/23 18:31 Respiratory Rate 16 08/14/23 10:07 Blood Pressure 157/76 08/14/23 18:31 Pulse Oximetry 96 08/14/23 18:31 Oxygen Delivery [facility] Room Air 08/14/23 18:31 MDM - SOB/Dyspnea Medical Decision Making Care signed out to Dr. Burgos at change of shift. See final notes for diagnosis and disposition. Patient care was transitioned to [place]. Lab work was pending. She is being treated for migraine. Lab work is unremarkable. Assessment and plan: Migraine headache - Discharged home - Evaluation and treatment of this problem were appropriate in the emergency setting. Medical Records I reviewed the patient's medical records. Lab Data I reviewed the patient's lab results. 08/14/23 15:57 Labs/Radiology: Radiology Impressions Chest X-Ray 08/14/23 14:33 IMPRESSION: 1. No acute cardiopulmonary finding. Stable. Laboratory Results WBC 12.34 10^3/uL (3.29-11.43) H 08/14/23 15:57 RBC 5.88 10^6/uL (3.85-5.65) H 08/14/23 15:57 Hgb 17.80 g/dL (11.27-16.99) H 08/14/23 15:57 Hct 51.3 % (36-47) H 08/14/23 15:57 MCV 87.2 fl (85-98) 08/14/23 15:57 MCH 30.3 pg (27-33) 08/14/23 15:57 MCHC 34.7 g/dL (30-55) 08/14/23 15:57 RDW 12.9 % (12.1-15.1) 08/14/23 15:57 Plt Count 196 10^3/cmm (157-399) 08/14/23 15:57 MPV 10.2 fL (7.4-10.4) 08/14/23 15:57 Neut % (Auto) 60.4 % 08/14/23 15:57 Lymph % (Auto) 26.3 % 08/14/23 15:57 Evangeline % (Auto) 11.3 % 08/14/23 15:57 Eos % (Auto) 1.1 % 08/14/23 15:57 Baso % (Auto) 0.6 % 08/14/23 15:57 Neut # (Auto) 7.44 10^3/uL (1.8-7.7) 08/14/23 15:57 Lymph # (Auto) 3.3 10^3/uL (0.8-4.8) 08/14/23 15:57 Evangeline # (Auto) 1.4 10^3/uL (0.2-0.9) H 08/14/23 15:57 Eos # (Auto) 0.1 10^3/uL (0.0-0.8) 08/14/23 15:57 Baso # (Auto) 0.1 10^3/uL (0.0-0.1) 08/14/23 15:57 Nucleated RBC % (auto) 0 % 08/14/23 15:57 Nucleated RBCs # 0.0 /100WBC 08/14/23 15:57 PT 14.00 SECONDS (12.1-14.9) 08/14/23 15:57 INR 1.05 (0.8-1.2) 08/14/23 15:57 POC Glucose 123 mg/dL (70-110) H 08/14/23 16:32 Magnesium 1.6 mg/dL (1.7-2.3) L 08/14/23 15:57 NT-Pro-B Natriuret Pep 1726 pg/mL (0-125) H 08/14/23 15:57 Lipase 13 U/L (13-60) 08/14/23 15:57 Urine Color Yellow (Yellow) 08/14/23 14:52 Urine Appearance Clear (CLEAR) 08/14/23 14:52 Urine pH 7 (5-7) 08/14/23 14:52 Ur Specific [place] 1.005 (1.005-1.030) 08/14/23 14:52 Urine Protein Neg (Negative) 08/14/23 14:52 Urine Glucose (UA) Norm (Normal) 08/14/23 14:52 Urine Ketones 1+ (Negative) H 08/14/23 14:52 Urine Blood Neg (Negative) 08/14/23 14:52 Urine Nitrate Negative (Negative) 08/14/23 14:52 Urine Bilirubin Neg (Negative) 08/14/23 14:52 Urine Urobilinogen Norm mg/dL (Negative) 08/14/23 14:52 Ur Leukocyte Esterase Negative (Negative) 08/14/23 14:52 Discharge Plan Discharge Patient Disposition: Home Clinical Impression: Migraine headache Condition: Stable Prescriptions: No Action ipratropium-albuterol 0.5 mg-3 mg(2.5 mg base)/3 mL solution for nebulization 3 ml inhalation Q4H PRN (Reason: wheezing) Qty: 90 3RF gabapentin 300 mg capsule 300 mg PO BEDTIME Creon 3,000-9,500- 15,000 unit capsule,delayed release(DR/EC) 1 cap PO TID levothyroxine 50 mcg tablet 50 mcg PO QAM Qty: 60 2RF pantoprazole 40 mg tablet,delayed release (DR/EC) 40 mg PO BID Qty: 60 0RF metoclopramide HCl [Reglan] 10 mg tablet 10 mg PO Q6H PRN (Reason: nausea and vomiting) Qty: 20 0RF insulin glargine [Lantus U-100 Insulin] 100 unit/mL solution See Rx Instructions .ROUTE .COMPLEX Rx Instructions: INJECT 20 UNITS IN THE MORNING AND 40 UNITS IN THE EVENING. oxycodone 30 mg tablet 30 mg PO Q4H PRN (Reason: Pain) Rx Instructions: DIRECTED lamotrigine 200 mg tablet 200 mg PO DAILY morphine 30 mg tablet extended release 30 mg PO Q12H amitriptyline 50 mg tablet 50 mg PO BEDTIME scopolamine base 1 mg over 3 days patch 3 day 1 patch topical Q3D nifedipine 30 mg tablet extended release 24hr 30 mg PO DAILY furosemide 40 mg tablet 40 mg PO BID tizanidine 4 mg tablet 4 mg PO Q6H PRN (Reason: Spasms) sumatriptan succinate 50 mg tablet See Rx Instructions .ROUTE .COMPLEX Rx Instructions: MAY REPEAT IN TWO HOURS, MAX OF 200MG IN 24 HOURS spironolactone 25 mg tablet 25 mg PO BID potassium chloride 20 mEq/15 mL liquid 20 meq PO DAILY tenofovir disoproxil fumarate 300 mg tablet 300 mg PO DAILY levetiracetam 750 mg tablet 750 mg PO BID Ventolin HFA 90 mcg/actuation HFA aerosol inhaler 2 puff INHALATION Q6H PRN (Reason: Shortness Of Breath) lactulose 10 gram/15 mL solution 90 ml PO TID tramadol 50 mg tablet 50 mg PO Q8H PRN (Reason: pain) Qty: 20 0RF tramadol 50 mg tablet 50 mg PO Q8H PRN (Reason: pain) Qty: 14 0RF Discharge Orders: Discharge ED (Routine); Ordered 08/14/23 Ordered By: Dyana Burgos Referrals: Francisco Mckinley DO [Primary Care Provider] - Discharge Diet: Usual diet Discharge Activity: Increase activity as tolerated Patient Instructions: Migraine Headache (ED) Activity Restrictions/Additional Instructions: Thank you for choosing [facility] for your healthcare needs today. Please realize this is an emergency room and that we are providing you with a medical screening exam and this may not be complete and all inclusive of all the testing and or work up that you may need to determine your ailment or severity of your illness. You have been screened and evaluated and felt safe for discharge. Health conditions do change or evolve sometimes and as such it is important that you follow up with your Primary Doctor to be re checked, 3-5 days is a general good time frame for follow up. 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 Pain management contract signed Metabolic encephalopathy SSS (sick sinus syndrome) Presence of permanent cardiac pacemaker Seizure disorder Tobacco dependency Hypothyroidism Accidental fentanyl overdose Overdose Cardiac arrest COPD (chronic obstructive pulmonary disease) Chronically on 3 L of oxygen Smoker Thrombocytopenia Bilateral pulmonary embolism Hepatitis B Pulmonary embolism Nicotine dependence, cigarettes, with unspecified nicotine-induced disorders Chronic hepatitis B Chronic abdominal pain Chronic hip pain Leg cramps Stomach cancer Pelvic inflammatory disease Diabetes mellitus Hypertension Encephalopathy Cirrhosis Gastroesophageal reflux GI bleeding Surgical History H/O right hemicolectomy History of right hemicolectomy H/O tubal ligation History of laparotomy History of hysterectomy Family History Mother Diabetes Father CAD (coronary artery disease) Other Cancer Social History Smoking and tobacco/nicotine status: former use of tobacco/nicotine Quit status (tobacco/nicotine): has quit using Year quit tobacco: 2020 Former quit date comment: 2ppd x 26 year Hx Alcohol intake: never Substance/Drug Use: never Course 2 Vital Signs: Vital signs: Vital Signs Temperature 97.7 F 08/14/23 10:07 Pulse Rate 80 08/14/23 18:31 Respiratory Rate 16 08/14/23 10:07 Blood Pressure 157/76 08/14/23 18:31 Pulse Oximetry 96 08/14/23 18:31 Oxygen Delivery [facility] th[facility] Room Air 08/14/23 18:31 MDM - SOB/Dyspnea Medical Decision Making Patient care was transitioned to il. Lab work was pending. She is being treated for migraine. Lab work is unremarkable. Assessment and plan: Migraine headache - Discharged home - Evaluation and treatment of this problem were appropriate in the emergency setting. Lab Data 08/14/23 15:57 Labs/Radiology: Radiology Impressions Chest X-Ray 08/14/23 14:33 IMPRESSION: 1. No acute cardiopulmonary finding. Stable. Laboratory Results WBC 12.34 10^3/uL (3.29-11.43) H 08/14/23 15:57 RBC 5.88 10^6/uL (3.85-5.65) H 08/14/23 15:57 Hgb 17.80 g/dL (11.27-16.99) H 08/14/23 15:57 Hct 51.3 % (36-47) H 08/14/23 15:57 MCV 87.2 fl (85-98) 08/14/23 15:57 MCH 30.3 pg (27-33) 08/14/23 15:57 MCHC 34.7 g/dL (30-55) 08/14/23 15:57 RDW 12.9 % (12.1-15.1) 08/14/23 15:57 Plt Count 196 10^3/cmm (157-399) 08/14/23 15:57 MPV 10.2 fL (7.4-10.4) 08/14/23 15:57 Neut % (Auto) 60.4 % 08/14/23 15:57 Lymph % (Auto) 26.3 % 08/14/23 15:57 Evangeline % (Auto) 11.3 % 08/14/23 15:57 Eos % (Auto) 1.1 % 08/14/23 15:57 Baso % (Auto) 0.6 % 08/14/23 15:57 Neut # (Auto) 7.44 10^3/uL (1.8-7.7) 08/14/23 15:57 Lymph # (Auto) 3.3 10^3/uL (0.8-4.8) 08/14/23 15:57 Evangeline # (Auto) 1.4 10^3/uL (0.2-0.9) H 08/14/23 15:57 Eos # (Auto) 0.1 10^3/uL (0.0-0.8) 08/14/23 15:57 Baso # (Auto) 0.1 10^3/uL (0.0-0.1) 08/14/23 15:57 Nucleated RBC % (auto) 0 % 08/14/23 15:57 Nucleated RBCs # 0.0 /100WBC 08/14/23 15:57 PT 14.00 SECONDS (12.1-14.9) 08/14/23 15:57 INR 1.05 (0.8-1.2) 08/14/23 15:57 POC Glucose 123 mg/dL (70-110) H 08/14/23 16:32 Magnesium 1.6 mg/dL (1.7-2.3) L 08/14/23 15:57 NT-Pro-B Natriuret Pep 1726 pg/mL (0-125) H 08/14/23 15:57 Lipase 13 U/L (13-60) 08/14/23 15:57 Urine Color Yellow (Yellow) 08/14/23 14:52 Urine Appearance Clear (CLEAR) 08/14/23 14:52 Urine pH 7 (5-7) 08/14/23 14:52 Ur Specific [place] 1.005 (1.005-1.030) 08/14/23 14:52 Urine Protein Neg (Negative) 08/14/23 14:52 Urine Glucose (UA) Norm (Normal) 08/14/23 14:52 Urine Ketones 1+ (Negative) H 08/14/23 14:52 Urine Blood Neg (Negative) 08/14/23 14:52 Urine Nitrate Negative (Negative) 08/14/23 14:52 Urine Bilirubin Neg (Negative) 08/14/23 14:52 Urine Urobilinogen Norm mg/dL (Negative) 08/14/23 14:52 Ur Leukocyte Esterase Negative (Negative) 08/14/23 14:52 All radiology interpretation(s) finalized by discharge Discharge Plan Discharge Patient Disposition: Home Clinical Impression: Migraine headache Condition: Stable Prescriptions: No Action ipratropium-albuterol 0.5 mg-3 mg(2.5 mg base)/3 mL solution for nebulization 3 ml inhalation Q4H PRN (Reason: wheezing) Qty: 90 3RF gabapentin 300 mg capsule 300 mg PO BEDTIME Creon 3,000-9,500- 15,000 unit capsule,delayed release(DR/EC) 1 cap PO TID levothyroxine 50 mcg tablet 50 mcg PO QAM Qty: 60 2RF pantoprazole 40 mg tablet,delayed release (DR/EC) 40 mg PO BID Qty: 60 0RF metoclopramide HCl [Reglan] 10 mg tablet 10 mg PO Q6H PRN (Reason: nausea and vomiting) Qty: 20 0RF insulin glargine [Lantus U-100 Insulin] 100 unit/mL solution See Rx Instructions .ROUTE .COMPLEX Rx Instructions: INJECT 20 UNITS IN THE MORNING AND 40 UNITS IN THE EVENING. oxycodone 30 mg tablet 30 mg PO Q4H PRN (Reason: Pain) Rx Instructions: DIRECTED lamotrigine 200 mg tablet 200 mg PO DAILY morphine 30 mg tablet extended release 30 mg PO Q12H amitriptyline 50 mg tablet 50 mg PO BEDTIME scopolamine base 1 mg over 3 days patch 3 day 1 patch topical Q3D nifedipine 30 mg tablet extended release 24hr 30 mg PO DAILY furosemide 40 mg tablet 40 mg PO BID tizanidine 4 mg tablet 4 mg PO Q6H PRN (Reason: Spasms) sumatriptan succinate 50 mg tablet See Rx Instructions .ROUTE .COMPLEX Rx Instructions: MAY REPEAT IN TWO HOURS, MAX OF 200MG IN 24 HOURS spironolactone 25 mg tablet 25 mg PO BID potassium chloride 20 mEq/15 mL liquid 20 meq PO DAILY tenofovir disoproxil fumarate 300 mg tablet 300 mg PO DAILY levetiracetam 750 mg tablet 750 mg PO BID Ventolin HFA 90 mcg/actuation HFA aerosol inhaler 2 puff INHALATION Q6H PRN (Reason: Shortness Of Breath) lactulose 10 gram/15 mL solution 90 ml PO TID tramadol 50 mg tablet 50 mg PO Q8H PRN (Reason: pain) Qty: 20 0RF tramadol 50 mg tablet 50 mg PO Q8H PRN (Reason: pain) Qty: 14 0RF Discharge Orders: Discharge ED (Routine); Ordered 08/14/23 Ordered By: Dayna Burgos Referrals: Francisco Mckinley DO [Primary Care Provider] - Discharge Diet: Usual diet Discharge Activity: Increase activity as tolerated Patient Instructions: Migraine Headache (ED) Activity Restrictions/Additional Instructions: Thank you for choosing [facility] for your healthcare needs today. Please realize this is an emergency room and that we are providing you with a medical screening exam and this may not be complete and all inclusive of all the testing and or work up that you may need to determine your ailment or severity of your illness. You have been screened and evaluated and felt safe for discharge. Health conditions do change or evolve sometimes and as such it is important that you follow up with your Primary Doctor to be re checked, 3-5 days is a general good time frame for follow up. You are always welcome to return to the ED for re assessment if your symptoms are worsening or you have new concerns Coding Level of Care Code ED Cable Tv Installer for 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
[2023-08-14] MEDS: valproic acid inj 500 MG in sodium chloride 0.9% 50 ML 55 MG IV (16:02)
[2023-08-14] MEDS: morphine 4 mg/mL SDV 1 mL IVP (16:02)
[2023-08-14] MEDS: metoclopramide 5 mg/mL SDV 2 mL 10 MG IVP (16:02)
[2023-08-14 16:12] LABS: Basophils # 0.1 10^3/uL (0.0-0.1); Basophils % 0.6 %; Eosinophils # 0.1 10^3/uL (0.0-0.8); Eosinophils % 1.1 %; Hematocrit 51.3 % (36-47); Lymphocytes # 3.3 10^3/uL (0.8-4.8); Lymphocytes % 26.3 %; Mean Corpuscular HGB Conc 34.7 g/dL (30-55); Mean Corpuscular Hemoglobin 30.3 pg (27-33); Mean Corpuscular Volume 87.2 fl (85-98); Mean Platelet Volume 10.2 fL (7.4-10.4); Monocytes # 1.4 10^3/uL (0.2-0.9); Monocytes % 11.3 %; Neutrophils # 7.44 10^3/uL (1.8-7.7); Neutrophils % 60.4 %; Nucleated Red Blood Cells % 0 %; Platelet Count 196 10^3/cmm (157-399); Red Blood Count 5.88 10^6/uL (3.85-5.65); Red Cell Distribution Width 12.9 % (12.1-15.1); White Blood Count 12.34 10^3/uL (3.29-11.43)
[2023-08-14] MEDS: sodium chloride 0.9% 1,000 ML 999 ML IV (16:16)
[2023-08-14 16:25] LABS: INR 1.05 (0.8-1.2)
[2023-08-14 16:28] VITALS: BP 107/70; PULSE 60; O2SAT 96
[2023-08-14 16:35] LABS: Glucose Point of Care 123 mg/dL (70-110)
[2023-08-14 16:44] LABS: Lipase 13 U/L (13-60); Magnesium 1.6 mg/dL (1.7-2.3); NT Pro B Type Natriuretic Pept 1726 pg/mL (0-125)
[2023-08-14 18:31] VITALS: BP 157/76; PULSE 80; O2SAT 96
== END 2023-08-14 18:48 | disposition home or self-care (01) ==
PROVIDERS: Family Medicine; Emergency Provider Emergency Medicine; PCP Family Medicine
DX: G43.909 Migraine, unspecified, not intractable, without status migrainosus (principal); Z79.4 Long term (current) use of insulin; Z87.891 Personal history of nicotine dependence; Z95.0 Presence of cardiac pacemaker; J44.9 Chronic obstructive pulmonary disease, unspecified; Z99.81 Dependence on supplemental oxygen; Z86.19 Personal history of other infectious and parasitic diseases; Z85.028 Personal history of other malignant neoplasm of stomach; E11.9 Type 2 diabetes mellitus without complications; I10 Essential (primary) hypertension
CPT/HCPCS: 36416; 71045; 81003; 82962; 83690; 83735; 83880; 85025; 85610; 96365; 96375; 99284; J2270; J2765; J3490; J7030

== ENCOUNTER 2023-08-15 05:31 | Emergency (ER) | payer MEDICAID, SELFPAY ==
[2023-08-15 05:33] VITALS: BP 178/104; PULSE 86; RESP 20; TEMP 36.6; O2SAT 97; BMI 27.1
--- NOTE | 2023-08-15 05:37 | CTR_ITS ---
PROCEDURE INFORMATION: Exam: CT Head Without Contrast Exam date and time: 08/15/2023 6:22 AM Age: 47 years old Clinical indication: Pain; Headache; Migraine; Additional info: Persistent headache TECHNIQUE: Imaging protocol: Computed tomography of the head without contrast. Radiation optimization: All CT scans at this facility use at least one of these dose optimization techniques: automated exposure control; mA and/or kV adjustment per patient size (includes targeted exams where dose is matched to clinical indication); or iterative reconstruction. COMPARISON: CT head wo con* [id number] 04/27/2023 1:15 PM RADIATION DOSE METRICS: Total DLP (mGy-cm): 1194.58 FINDINGS: Brain: Normal. No hemorrhage. Unremarkable white matter. No mass effect. Cerebral ventricles: No ventriculomegaly. Paranasal sinuses: Visualized sinuses are unremarkable. No fluid levels. Mastoid air cells: Visualized mastoid air cells are well aerated. Bones: Unremarkable. No acute fracture. Soft tissues: Unremarkable. CT/CT head wo con* [id number] IMPRESSION: No acute intracranial abnormality.
--- NOTE | 2023-08-15 05:41 | ED_ITS ---
HPI - Headache 2 General: Chief Complaint: Headache Stated Complaint: Migraine Time Seen by Provider: 08/15/23 05:35 Source: patient Mode of arrival: ambulatory History of Present Illness: 47-year-old female presents emergency ro om with complaint of a headache. She was seen yesterday and evaluated her headache improved and she was discharged home. She had taken Imitrex for it prior to coming in yesterday. She also had complaints of shortness of breath yesterday. Chest x-ray yesterday was negative for symptoms. She was discharged home. She states overnight her headache recurred when she woke up she has had a recurrence of her headache. She is very nauseous following a little phobic. MD elicited complaint: headache Onset (ago): hour(s) Location: frontal Associated symptoms: Reports photophobia and sound sensitivity; Deny chest pain, confusion, cough, diaphoresis, eye pain, eye redness, fever(s), lightheadedness, loss of vision, malaise, nausea, neck stiffness, numbness, paresthesias, pre-syncope, rash, seizures, short of breath, syncope, vomiting or weakness Treatments prior to arrival: migraine medication (Imitrex) Review of Systems 2 Const: Denies: fever(s), chills, malaise or diaphoresis Card: Denies: chest pain, lightheadedness, syncope or pre-syncope Resp: Denies: dyspnea GI: Denies: abdominal pain, nausea or vomiting : Denies: dysuria, urinary frequency or urinary urgency Musc: Denies: neck pain or back pain Skin/Breast: Denies: rash Neuro: Reports: headache(s); Denies: confusion PFSH ED 2 PFSH: Medical History Hypokalemia detention (current) use of opiate analgesic Pain management contract signed Metabolic encephalopathy SSS (sick sinus syndrome) Presence of permanent cardiac pacemaker Seizure disorder Tobacco dependency Hypothyroidism Accidental fentanyl overdose Overdose Cardiac arrest COPD (chronic obstructive pulmonary disease) Chronically on 3 L of oxygen Smoker Thrombocytopenia Bilateral pulmonary embolism Hepatitis B Pulmonary embolism Nicotine dependence, cigarettes, with unspecified nicotine-induced disorders Chronic hepatitis B Chronic abdominal pain Chronic hip pain Leg cramps Stomach cancer Pelvic inflammatory disease Diabetes mellitus Hypertension Encephalopathy Cirrhosis Gastroesophageal reflux GI bleeding Surgical History H/O right hemicolectomy History of right hemicolectomy H/O tubal ligation History of laparotomy History of hysterectomy Family History Mother Diabetes Father CAD (coronary artery disease) Other Cancer Social History Smoking and tobacco/nicotine status: former use of tobacco/nicotine Quit status (tobacco/nicotine): has quit using Year quit tobacco: 2020 Former quit date comment: 2ppd x 26 year Hx Alcohol intake: never Substance/Drug Use: never Physical Exam 2 Const: GENERAL APPEARANCE: cooperative and comfortable O RIENTATION/CONSCIOUSNESS: Yes awake, Yes oriented to person, Yes oriented to place and Yes oriented to time HENMT: COMMON NORMALS: normocephalic, atraumatic and hearing grossly normal bilaterally HEAD & SCALP: normocephalic and atraumatic Eye: DIRECT OPHTHALMOSCOPY: Yes photophobia Resp: COMMON NORMALS: normal respiratory effort, No retractions, No use of accessory muscles and clear to auscultation bilaterally AUSCULTATION: clear to auscultation bilaterally Cardio: COMMON NORMALS: regular rate, regular rhythm and No murmurs present (Cardio) RATE: regular rate RHYTHM: regular rhythm GI: COMMON NORMALS: Soft to palpation and No hepatosplenomegaly present A USCULTATION: Yes normoactive bowel sounds PALPATION: Yes Soft to palpation, No Tenderness to palpation present (GI), No Guarding due to palpation present (GI) and Yes No hepatosplenomegaly present Extremity: COMMON NORMALS: normal to inspection, capillary refill normal, no clubbing, cyanosis or edema, no calf tenderness and no pedal edema Neuro: SENSORIUM/ORIENTATION: Yes oriented to person, Yes oriented to place and Yes oriented to time Skin: COMMON NORMALS: no rashes or lesions noted GENERAL SKIN EXAM: no rashes or lesions noted Course 2 Vital Signs: Vital signs: Vital Signs Temperature 97.9 F 08/15/23 10:47 Pulse Rate 127 H 08/15/23 10:47 Respiratory Rate 22 H 08/15/23 10:47 Blood Pressure 138/97 08/15/23 10:47 Pulse Oximetry 93 08/15/23 10:47 Oxygen Delivery Me thod Room Air 08/15/23 09:23 MDM - Headache Medical Decision Making Patient headache is improved. She is sleeping. She did develop significant nausea and vomiting which improved with medications given. We can recheck a urine which she adamantly refused ultimately denied any further testing and wanted to go home states her headache was better. Patient discharged home can return if has any worsening or changes symptoms Medical Records I reviewed the patient's medical records. Lab Data I reviewed the patient's lab results. 08/15/23 07:42 08/15/23 07:[address] 08/15/23 05:37 IMPRESSION: No acute intracranial abnormality. Laboratory Results WBC 7.74 10^3/uL (3.29-11.43) 08/15/23 07:42 Corrected WBC Cancelled 08/15/23 06:50 RBC 5.17 10^6/uL (3.85-5.65) 08/15/23 07:42 Hgb 15.80 g/dL (11.27-16.99) 08/15/23 07:42 Hct 45.4 % (36-47) 08/15/23 07:42 MCV 87.8 fl (85-98) 08/15/23 07:42 MCH 30.6 pg (27-33) 08/15/23 07:42 MCHC 34.8 g/dL (30-55) 08/15/23 07:42 RDW 13.1 % (12.1-15.1) 08/15/23 07:42 Plt Count 143 10^3/cmm (157-399) L 08/15/23 07:42 MPV 10.5 fL (7.4-10.4) H 08/15/23 07:42 Gran % Cancelled 08/15/23 06:50 Neut % (Auto) 90.1 % 08/15/23 07:42 Lymph % (Auto) 7.9 % 08/15/23 07:42 [place] % (Auto) 0.9 % 08/15/23 07:42 Eos % (Auto) 0.4 % 08/15/23 07:42 Baso % (Auto) 0.3 % 08/15/23 07:42 Neut # (Auto) 6.98 10^3/uL (1.8-7.7) 08/15/23 07:42 Lymph # (Auto) 0.6 10^3/uL (0.8-4.8) L 08/15/23 07:42 [place] # (Auto) 0.1 10^3/uL (0.2-0.9) L 08/15/23 07:42 Eos # (Auto) 0.0 10^3/uL (0.0-0.8) 08/15/23 07:42 Baso # (Auto) 0.0 10^3/uL (0.0-0.1) 08/15/23 07:42 Absolute Gran (auto) Cancelled 08/15/23 06:50 Nucleated RBC % (auto) 0 % 08/15/23 07:42 Nucleated RBCs # 0.0 /100WBC 08/15/23 07:42 Sodium 137 mmol/L (136-145) 08/15/23 07:42 Potassium 2.8 mmol/L (3.5-5.1) L* 08/15/23 07:42 Chloride 101 mmol/L (98-107) 08/15/23 07:42 Carbon Dioxide 17 mmol/L (22-29) L 08/15/23 07:42 Anion Gap 21.8 (5-19) H 08/15/23 07:42 BUN 16 mg/dL (6-20) 08/15/23 07:42 Creatinine 1.1 mg/dL (0.5-0.9) H 08/15/23 07:42 GFR Calculation 53.0 mL/min (90-130) L 08/15/23 07:42 Glucose 61 mg/dL (65-115) L 08/15/23 07:42 Calculated Osmolality 283 mOsm/kg (285-295) L 08/15/23 07:42 Calcium 8.9 mg/dL (8.5-10.5) 08/15/23 07:42 Magnesium 1.1 mg/dL (1.7-2.3) L 08/15/23 07:42 Total Bilirubin 1.0 mg/dL (0.15-1.2) 08/15/23 07:42 AST 42 U/L (0-32) H 08/15/23 07:42 ALT 20 U/L (0-33) 08/15/23 07:42 Alkaline Phosphatase 205 U/L (35-105) H 08/15/23 07:42 Total Protein 7.9 g/dL (6.6-8.7) 08/15/23 07:42 Albumin 3.4 g/dL (3.5-5.2) L 08/15/23 07:42 Globulin 4.5 g/dL (1.3-4.6) 08/15/23 07:42 All radiology interpretation(s) finalized by discharge Discharge Plan Discharge Patient Disposition: Home Clinical Impression: Migraine, Hypokalemia Condition: Stable Prescriptions: New potassium chloride 20 mEq tablet extended release 20 meq PO DAILY Qty: 10 0RF No Action gabapentin 300 mg capsule 300 mg PO BEDTIME Creon 3,000-9,500- 15,000 unit capsule,delayed release(DR/EC) 1 cap PO TID levothyroxine 50 mcg tablet 50 mcg PO QAM Qty: 60 2RF pantoprazole 40 mg tablet,delayed release (DR/EC) 40 mg PO BID Qty: 60 0RF metoclopramide HCl [Reglan] 10 mg tablet 10 mg PO Q6H PRN (Reason: nausea and vomiting) Qty: 20 0RF zinc sulfate 50 mg zinc (220 mg) capsule 50 mg PO DAILY Anoro Ellipta 62.5-25 mcg/actuation blister with device 1 inh INHALATION DAILY insulin glargine [Lantus U-100 Insulin] 100 unit/mL solution See Rx Instructions .ROUTE .COMPLEX Rx Instructions: INJECT 20 UNITS IN THE MORNING AND 40 UNITS IN THE EVENING. oxycodone 30 mg tablet 30 mg PO Q4H PRN (Reason: Pain) Rx Instructions: DIRECTED lamotrigine 200 mg tablet 200 mg PO DAILY amitriptyline 50 mg tablet 50 mg PO BEDTIME scopolamine base 1 mg over 3 days patch 3 day 1 patch topical Q3D nifedipine 30 mg tablet extended release 24hr 30 mg PO DAILY furosemide 40 mg tablet 40 mg PO BID tizanidine 4 mg tablet 4 mg PO Q6H PRN (Reason: Spasms) sumatriptan succinate 50 mg tablet See Rx Instructions .ROUTE .COMPLEX Rx Instructions: MAY REPEAT IN TWO HOURS, MAX OF 200MG IN 24 HOURS spironolactone 25 mg tablet 25 mg PO BID potassium chloride 20 mEq/15 mL liquid 20 meq PO DAILY tenofovir disoproxil fumarate 300 mg tablet 300 mg PO DAILY levetiracetam 750 mg tablet 750 mg PO BID albuterol sulfate [Ventolin HFA] 90 mcg/actuation HFA aerosol inhaler 2 puff INHALATION Q6H PRN (Reason: Shortness Of Breath) lactulose 10 gram/15 mL solution 90 ml PO TID Discharge Orders: Discharge ED (Routine); Ordered 08/15/23 Ordered By: Lane Gaffney Referrals: Francisco Mckinley DO [Primary Care Provider] - Discharge Diet: Usual diet Discharge Activity: Resume usual activity Patient Instructions: Opioid Safety, Pain Management Activity Restrictions/Additional Instructions: Thank you for choosing [facility] for your healthcare needs today. Please realize this is an emergency room and that we are providing you with a medical screening exam and this may not be complete and all inclusive of all the testing and or work up that you may need to determine your ailment or severity of your illness. It is very important that you follow up as instructed or that you return to the Emergency Department should you have concerns or if your condition changes or worsens in any way.. Recommend potassium supplement daily for the next 3 days you should follow-up with your primary care doctor to recheck your potassium. Coding Level of Care Code ED Cushion Spring Assembler for 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
--- NOTE | 2023-08-15 05:54 | ECG_ITS ---
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 Measurements Intervals [place] Rate: 83 P: 87 WV: 139 QRS: 88 QRSD: 100 T: 89 QT: 405 QTc: 476 Interpretive Statements SINUS RHYTHM RIGHT ATRIAL ENLARGEMENT [0.3mV P-WAVE] POSSIBLE LEFT ATRIAL ENLARGEMENT [-0.1mV P-WAVE IN V1/V2] ST DEVIATION AND MODERATE T-WAVE ABNORMALITY, CONSIDER ANTERIOR ISCHEMIA [-0.1+ mV T-WAVE IN V3/V4] Compared to ECG 04/27/2023 12:42:53 T-wave abnormality now present Possible ischemia now present Sinus tachycardia no longer present Left ventricular hypertrophy no longer present ST (T wave) deviation no longer present Electronically Signed On 08-15-2023 13:55:39 CDT by Oseas Junior M.D. [email or web address]
[2023-08-15] MEDS: metoclopramide 5 mg/mL SDV 2 mL 10 MG IVP (06:48)
[2023-08-15] MEDS: ketorolac 30 mg/mL INJ IVP (06:48)
[2023-08-15] MEDS: valproic acid inj 500 MG in sodium chloride 0.9% 50 ML 55 MG IV (06:49)
[2023-08-15] MEDS: LORazepam 2 mg/mL INJ 10 mL MDV IVP (07:46)
[2023-08-15] MEDS: haloperidol inj 5 mg/mL INJ 1 mL IVP (07:48)
[2023-08-15 07:51] LABS: Basophils % 0.3 %; Eosinophils % 0.4 %; Hematocrit 45.4 % (36-47); Lymphocytes # 0.6 10^3/uL (0.8-4.8); Lymphocytes % 7.9 %; Mean Corpuscular HGB Conc 34.8 g/dL (30-55); Mean Corpuscular Hemoglobin 30.6 pg (27-33); Mean Corpuscular Volume 87.8 fl (85-98); Mean Platelet Volume 10.5 fL (7.4-10.4); Monocytes # 0.1 10^3/uL (0.2-0.9); Monocytes % 0.9 %; Neutrophils # 6.98 10^3/uL (1.8-7.7); Neutrophils % 90.1 %; Nucleated Red Blood Cells % 0 %; Platelet Count 143 10^3/cmm (157-399); Red Blood Count 5.17 10^6/uL (3.85-5.65); Red Cell Distribution Width 13.1 % (12.1-15.1); White Blood Count 7.74 10^3/uL (3.29-11.43)
[2023-08-15 07:53] VITALS: BP 120/68; PULSE 119; RESP 22; O2SAT 93
--- NOTE | 2023-08-15 07:53 | PC.NURSE ---
this nurse informed pt of need for urine sample, pt states she is unable to pee d/t vomiting, pt states I refuse catheter, I do not do well with that .
[2023-08-15 08:14] LABS: Alanine Aminotransferase 20 U/L (0-33); Albumin Level 3.4 g/dL (3.5-5.2); Alkaline Phosphatase 205 U/L (35-105); Anion Gap 21.8 (5-19); Aspartate Amino Transferase 42 U/L (0-32); Blood Urea Nitrogen 16 mg/dL (6-20); Calcium 8.9 mg/dL (8.5-10.5); Carbon Dioxide 17 mmol/L (22-29); Chloride 101 mmol/L (98-107); Creatinine Clr Calc Pharmacy 79.1352; Globulin 4.5 g/dL (1.3-4.6); Glucose 61 mg/dL (65-115); Osmolality Calculated 283 mOsm/kg (285-295); Sodium 137 mmol/L (136-145); Total Protein 7.9 g/dL (6.6-8.7)
[2023-08-15 08:19] LABS: Potassium 2.8 mmol/L (3.5-5.1)
--- NOTE | 2023-08-15 08:34 | PC.PHAR ---
PT STATES HAS NOT TAKEN ANY MEDICATIONS TODAY EXCEPT SUMATRIPTAN. 08/15/23
[2023-08-15 08:56] LABS: Magnesium 1.1 mg/dL (1.7-2.3)
[2023-08-15] MEDS: sodium chloride 0.9% 1,000 ML 999 ML IV (08:59)
[2023-08-15] MEDS: potassium chloride premix 100 ML 25 MEQ IV (09:00)
[2023-08-15 09:23] VITALS: BP 138/97; PULSE 127; O2SAT 93
--- NOTE | 2023-08-15 09:36 | PC.NURSE ---
patient is still refusing to urinate at this time
--- NOTE | 2023-08-15 10:33 | PC.NURSE ---
PATIENT REFUSES TO GIVE URINE SAMPLE AND REFUSED URINARY IN AND OUT CATHETER. PATIENT IS REFUSING IV POTASSIUM AND WANTS IV OUT. DR. ZAMORA NOTIFIED AND ORDERED TO GIVE POTASSIUM PO AND WILL SPEAK WITH PATIENT ABOUT DISCHARGE.
--- NOTE | 2023-08-15 10:37 | PC.NURSE ---
PER VERBAL ORDER PER DR. ZAMORA, GIVE POTASSIUM 40 MEQ LIQUID PRIOR TO DC.
[2023-08-15] MEDS: potassium chloride oral liq 20 mEq/15 mL UDC 40 MEQ PO (10:43)
[2023-08-15 10:47] VITALS: BP 138/97; PULSE 127; RESP 22; TEMP 36.6; O2SAT 93
== END 2023-08-15 10:50 | disposition home or self-care (01) ==
PROVIDERS: Emergency Provider Family Medicine; PCP Family Medicine
DX: G43.909 Migraine, unspecified, not intractable, without status migrainosus (principal); E87.6 Hypokalemia; Z79.4 Long term (current) use of insulin; Z87.891 Personal history of nicotine dependence; Z95.0 Presence of cardiac pacemaker; J44.9 Chronic obstructive pulmonary disease, unspecified; Z86.19 Personal history of other infectious and parasitic diseases; Z85.028 Personal history of other malignant neoplasm of stomach; E11.9 Type 2 diabetes mellitus without complications; I10 Essential (primary) hypertension
CPT/HCPCS: 36415; 70450; 80053; 83735; 85025; 93005; 96365; 96366; 96375; 99285; J1630; J1885; J2060; J2765; J3480; J3490; J7030

== ENCOUNTER 2023-08-16 06:27 | Inpatient (IN) | payer MEDICAID, SELFPAY ==
[2023-08-16] VITALS (51 sets, daily range): BP systolic 92–225; BP diastolic 51–158; PULSE 80–148; RESP 13–32; TEMP 36.6–37; O2SAT 92–97; BMI 27.1
--- NOTE | 2023-08-16 06:44 | XR_ITS ---
WS: [id number] Exam: XR chest 1V portable [id number] Date/Time of Exam: 08/16/2023 6:51 AM Reason For Exam: dyspnea/cough Comparison 08/14/2023. Lungs are clear and fully expanded. Normal cardiomediastinal silhouette. Hyperinflation. No pleural e ffusions. Permanent cardiac pacer superimposes the LEFT chest. XR/XR chest 1V portable [id number] IMPRESSION: 1. Mild hyperinflation. No acute process.
--- NOTE | 2023-08-16 06:44 | ECG_ITS ---
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 Measurements Intervals [place] Rate: 120 P: 63 NE: 145 QRS: 60 QRSD: 96 T: 52 QT: 329 QTc: 465 Interpretive Statements SINUS TACHYCARDIA MODERATE VOLTAGE CRITERIA FOR LVH, CONSIDER NORMAL VARIANT [MEETS CRITERIA IN ONE OF: R(aVL), S(V1), R(V5), R(V5/V6)+S(V1)] MODERATE ST DEPRESSION [0.05+ mV ST DEPRESSION] Compared to ECG 08/15/2023 05:54:59 ST (T wave) deviation now present Sinus rhythm no longer present Atrial abnormality no longer present T-wave abnormality no longer present Possible ischemia no longer present Electronically Signed On 08-16-2023 15:47:49 CDT by Luis Marks M.D. [id number]
--- NOTE | 2023-08-16 06:49 | ED_ITS ---
HPI - Altered Mental Status 2 General: Chief Complaint: Altered Mental Status Stated Complaint: AMS Time Seen by Provider: 08/16/23 06:28 Source: patient Mode of arrival: ambulatory History of Present Illness: 47-year-old female brought into the [facility] room by EMS. She was found by PD wandering outside and seemed disoriented made several unusual comments she was wearing 1 socks she made a comment about a blanket she had wanting to give it to her and then that worked in the emergency room (there is no Marcy or anyone related to her working in the emergency room). Patient has been to the emergency room twice in the last 2 days. Both times complaining of headache. Yesterday she left prior to completing all of her evaluation wanting just to go home as her headache had improved some. I had seen the patient yesterday in the ER and we had recommended further testing but she wanted to leave. She was getting ready to leave AMA and went ahead and discharged her. We had wanted to recheck your urine as well as further evaluate her elevated liver enzymes and were considering CTA of her chest as she was mildly tachypneic and tachycardic when she first arrived yesterday. She is denying any chest pain but does have some shortness of breath now. She will answer several questions appropriately is aware of time place person but when I ask her about some of the things she had talked to the police about she is very confused does not remember walking around all night does not remember trying to give away a blanket that she had or why she only has 1 soft. 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 Pain management contract signed Metabolic encephalopathy SSS (sick sinus syndrome) Presence of permanent cardiac pacemaker Seizure disorder Tobacco dependency Hypothyroidism Accidental fentanyl overdose Overdose Cardiac arrest COPD (chronic obstructive pulmonary disease) Chronically on 3 L of oxygen Smoker Thrombocytopenia Bilateral pulmonary embolism Hepatitis B Pulmonary embolism Nicotine dependence, cigarettes, with unspecified nicotine-induced disorders Chronic hepatitis B Chronic abdominal pain Chronic hip pain Leg cramps Stomach cancer Pelvic inflammatory disease Diabetes mellitus Hypertension Encephalopathy Cirrhosis Gastroesophageal reflux GI bleeding Surgical History H/O right hemicolectomy History of right hemicolectomy H/O tubal ligation History of laparotomy History of hysterectomy Family History Mother Diabetes Father CAD (coronary artery disease) Other Cancer Social History Smoking and tobacco/nicotine status: former use of tobacco/nicotine Quit status (tobacco/nicotine): has quit using Year quit tobacco: 2020 Former quit date comment: 2ppd x 26 year Hx Alcohol intake: never Substance/Drug Use: never Physical Exam 2 Const: GENERAL APPEARANCE: cooperative and comfortable O RIENTATION/CONSCIOUSNESS: Yes awake, Yes oriented to person, Yes oriented to place and Yes oriented to time HENMT: COMMON NORMALS: normocephalic, atraumatic and hearing grossly normal bilaterally HEAD & SCALP: normocephalic and atraumatic Resp: COMMON NORMALS: normal respiratory effort, No retractions, No use of accessory muscles and clear to auscultation bilaterally AUSCULTATION: clear to auscultation bilaterally Cardio: COMMON NORMALS: regular rate, regular rhythm and No murmurs present (Cardio) RATE: regular rate RHYTHM: regular rhythm GI: COMMON NORMALS: Soft to palpation and No hepatosplenomegaly present A USCULTATION: Yes normoactive bowel sounds PALPATION: Yes Soft to palpation, No Tenderness to palpation present (GI), No Guarding due to palpation present (GI) and Yes No hepatosplenomegaly present Extremity: COMMON NORMALS: normal to inspection, capillary refill normal, no clubbing, cyanosis or edema, no calf tenderness and no pedal edema Neuro: SENSORIUM/ORIENTATION: Yes oriented to person, Yes oriented to place and Yes oriented to time Skin: COMMON NORMALS: no rashes or lesions noted GENERAL SKIN EXAM: no rashes or lesions noted Course 2 Vital Signs: Vital signs: Vital Signs Temperature 97.9 F 08/16/23 06:28 Pulse Rate 98 08/16/23 09:55 Respiratory Rate 16 08/16/23 06:28 Blood Pressure 166/132 08/16/23 09:55 Pulse Oximetry 96 08/16/23 09:55 Oxygen Delivery Me thod Room Air 08/16/23 09:55 MDM - Altered Mental Status Medical Decision Making Patient has a leukocytosis with elevated lactate. We are treating as if septic at this time although suspect it may be demargination from physical stressors. Patient has used methamphetamines in the past given her vital signs and her behavior the last few days suspect she may have been using again. Her blood pressure is still markedly elevated limited fluid bolus given at this time we will continue to monitor. Patient was here yesterday with hypokalemia she refused to stay for the remainder of her potassium IV replacement and magnesium replacement in the left the department we did discharge. Encouraged her to stay for at least those infusions. We are suspicious yesterday that she may have been using amphetamines because of her behavior and her presenting vital signs. We are treating her as though she may be septic at this point. Her amphetamines did come back positive. Discussed Dr. Scott. We are replacing potassium and magnesium as well as giving her fluids we placed her on prophylactic antibiotics we will place her in the ICU. She has a history of hepatitis B as well. Medical Records I reviewed the patient's medical records. Lab Data I reviewed the patient's lab results. 08/16/23 07:43 08/16/23 07:43 Radiology Impressions Chest X-Ray 08/16/23 06:44 IMPRESSION: 1. Mild hyperinflation. No acute process. Gallbladder Ultrasound 08/16/23 08:30 IMPRESSION: 1. Hepatomegaly with slightly cirrhotic hepatic contour. 2. Gallbladder is normal. Normal common bile duct. 3. Echogenic renal pyramids with enlarged RIGHT kidney can be seen with nephrocalcinosis, medullary sponge kidney, infection, and metabolic disease 4. No hydronephrosis Chest/Abdomen/Pelvis CT 08/16/23 08:32 IMPRESSION: 1. No evidence of pulmonary embolus. 2. Lungs are well aerated. Slight bibasilar atelectasis. 3. Diffuse small bowel thickening with submucosal enhancement involving the jejunum suspicious for small bowel enteritis. 4. Striated nephrograms can be seen with pyelonephritis. Recommend correlation for UTI. This may be due to technique. 5. Cirrhotic liver with splenomegaly similar to the prior study. 6. Small esophageal hiatal hernia with evidence of gastritis and duodenitis. 7. Prior postoperative changes RIGHT hemicolectomy with anastomosis. 8. Prior hysterectomy and tubal ligation 9. No free fluid in the pelvis 10. Progressed fat-containing umbilical hernia Laboratory Results WBC 30.45 10^3/uL (3.29-11.43) H* 08/16/23 07:43 RBC 5.45 10^6/uL (3.85-5.65) 08/16/23 07:43 Hgb 16.50 g/dL (11.27-16.99) 08/16/23 07:43 Hct 45.8 % (36-47) 08/16/23 07:43 MCV 84.0 fl (85-98) L 08/16/23 07:43 MCH 30.3 pg (27-33) 08/16/23 07:43 MCHC 36.0 g/dL (30-55) 08/16/23 07:43 RDW 13.1 % (12.1-15.1) 08/16/23 07:43 Plt Count 175 10^3/cmm (157-399) 08/16/23 07:43 MPV 11.3 fL (7.4-10.4) H 08/16/23 07:43 Neut % (Auto) 81.6 % 08/16/23 07:43 Lymph % (Auto) 7.3 % 08/16/23 07:43 [place] % (Auto) 10.2 % 08/16/23 07:43 Eos % (Auto) 0.0 % 08/16/23 07:43 Baso % (Auto) 0.3 % 08/16/23 07:43 Neut # (Auto) 24.85 10^3/uL (1.8-7.7) H 08/16/23 07:43 Lymph # (Auto) 2.2 10^3/uL (0.8-4.8) 08/16/23 07:43 [place] # (Auto) 3.1 10^3/uL (0.2-0.9) H 08/16/23 07:43 Eos # (Auto) 0.0 10^3/uL (0.0-0.8) 08/16/23 07:43 Baso # (Auto) 0.1 10^3/uL (0.0-0.1) 08/16/23 07:43 Nucleated RBC % (auto) 0 % 08/16/23 07:43 Nucleated RBCs # 0.0 /100WBC 08/16/23 07:43 PT 14.70 SECONDS (12.1-14.9) 08/16/23 07:43 INR 1.11 (0.8-1.2) 08/16/23 07:43 Sodium 138 mmol/L (136-145) 08/16/23 07:43 Potassium 2.9 mmol/L (3.5-5.1) L 08/16/23 07:43 Chloride 97 mmol/L (98-107) L 08/16/23 07:43 Carbon Dioxide 25 mmol/L (22-29) 08/16/23 07:43 Anion Gap 18.9 (5-19) 08/16/23 07:43 BUN 20 mg/dL (6-20) 08/16/23 07:43 Creatinine 0.7 mg/dL (0.5-0.9) 08/16/23 07:43 GFR Calculation 89.3 mL/min (90-130) L 08/16/23 07:43 Glucose 134 mg/dL (65-115) H 08/16/23 07:43 Calculated Osmolality 291 mOsm/kg (285-295) 08/16/23 07:43 Lactic Acid 2.7 mmol/L (0.5-2.2) H 08/16/23 07:43 Lactic Acid (Sepsis) 1.8 mmol/L (0.5-2.2) 08/16/23 11:07 Calcium 9.9 mg/dL (8.5-10.5) 08/16/23 07:43 Magnesium 0.2 mg/dL (1.7-2.3) L* 08/16/23 07:43 Total Bilirubin 1.4 mg/dL (0.15-1.2) H 08/16/23 07:43 AST 51 U/L (0-32) H 08/16/23 07:43 ALT 26 U/L (0-33) 08/16/23 07:43 Alkaline Phosphatase 130 U/L (35-105) H 08/16/23 07:43 Ammonia 48 umol/L (11-51) 08/16/23 07:43 Creatine Kinase 294 U/L (26-192) H 08/16/23 07:43 Total Protein 9.2 g/dL (6.6-8.7) H 08/16/23 07:43 Albumin 3.9 g/dL (3.5-5.2) 08/16/23 07:43 Globulin 5.3 g/dL (1.3-4.6) H 08/16/23 07:43 Lipase 14 U/L (13-60) 08/16/23 07:43 TSH 0.49 uIU/mL (0.27-4.20) 08/16/23 07:45 Urine Color Yellow (Yellow) 08/16/23 10:29 Urine Appearance Clear (CLEAR) 08/16/23 10:29 Urine pH 7 (5-7) 08/16/23 10:29 Ur Specific Sl[place] 1.010 (1.005-1.030) 08/16/23 10:29 Urine Protein Neg (Negative) 08/16/23 10:29 Urine Glucose (UA) Norm (Normal) 08/16/23 10:29 Urine Ketones Negative (Negative) 08/16/23 10:29 Urine Blood Neg (Negative) 08/16/23 10:29 Urine Nitrate Negative (Negative) 08/16/23 10:29 Urine Bilirubin Neg (Negative) 08/16/23 10:29 Urine Urobilinogen 1 mg/dL (Negative) H 08/16/23 10:29 Ur Leukocyte Esterase Negative (Negative) 08/16/23 10:29 Urine Opiates Screen Negative ng/mL (Negative) 08/16/23 10:29 Ur Barbiturates Screen Negative ng/mL (Negative) 08/16/23 10:29 Ur Phencyclidine Scrn Negative ng/mL (Negative) 08/16/23 10:29 Ur Amphetamines Screen Positive ng/mL (Negative) H 08/16/23 10:29 U Benzodiazepines Scrn Positive ng/mL (Negative) H 08/16/23 10:29 Urine Cocaine Screen Negative ng/mL (Negative) 08/16/23 10:29 U Marijuana (THC) Screen Negative ng/mL (Negative) 08/16/23 10:29 All radiology interpretation(s) finalized by discharge Discharge Plan Discharge Patient Disposition: Admitted As Inpatient Admit Provider: Derek Scott Clinical Impression: Sepsis, Hypomagnesemia, Hypokalemia, Acute encephalopathy, Enteritis, Positive urine drug screen, Leukocytosis, Transaminitis, History of hepatitis B Condition: Stable Coding Level of Care Code ED Director Of Food And Beverage Services for 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
[2023-08-16] MEDS: LORazepam 2 mg/mL INJ 10 mL MDV 1 MG IVP (07:46)
[2023-08-16] MEDS: cloNIDine 0.1 mg Tablet 0.100000000000000006 MG PO (07:46)
[2023-08-16 07:49] LABS: Basophils # 0.1 10^3/uL (0.0-0.1); Basophils % 0.3 %; Hematocrit 45.8 % (36-47); Lymphocytes # 2.2 10^3/uL (0.8-4.8); Lymphocytes % 7.3 %; Mean Corpuscular Hemoglobin 30.3 pg (27-33); Mean Platelet Volume 11.3 fL (7.4-10.4); Monocytes # 3.1 10^3/uL (0.2-0.9); Monocytes % 10.2 %; Neutrophils # 24.85 10^3/uL (1.8-7.7); Neutrophils % 81.6 %; Nucleated Red Blood Cells % 0 %; Platelet Count 175 10^3/cmm (157-399); Red Blood Count 5.45 10^6/uL (3.85-5.65); Red Cell Distribution Width 13.1 % (12.1-15.1)
--- NOTE | 2023-08-16 07:50 | PC.PHAR ---
PT STATES NOTHING HAS CHANGED ON HER MEDICATION LIST SINCE YESTERDAY'S FULL MED REC. PT HAS NOT TAKEN ANY MEDICATIONS SINCE SUNDAY EXCEPT HER SUMATRIPTAN.
[2023-08-16 08:07] LABS: INR 1.11 (0.8-1.2)
[2023-08-16 08:14] LABS: Ammonia 48 umol/L (11-51); Lactic Sepsis W/Reflex 2.7 mmol/L (0.5-2.2)
[2023-08-16 08:15] LABS: Alanine Aminotransferase 26 U/L (0-33); Albumin Level 3.9 g/dL (3.5-5.2); Alkaline Phosphatase 130 U/L (35-105); Anion Gap 18.9 (5-19); Aspartate Amino Transferase 51 U/L (0-32); Blood Urea Nitrogen 20 mg/dL (6-20); Calcium 9.9 mg/dL (8.5-10.5); Carbon Dioxide 25 mmol/L (22-29); Chloride 97 mmol/L (98-107); Creatine Phosphokinase 294 U/L (26-192); Creatinine Clr Calc Pharmacy 124.3554; Globulin 5.3 g/dL (1.3-4.6); Glomerular Filtration Rate 89.3 mL/min (90-130); Glucose 134 mg/dL (65-115); Lipase 14 U/L (13-60); Osmolality Calculated 291 mOsm/kg (285-295); Sodium 138 mmol/L (136-145); Total Bilirubin 1.4 mg/dL (0.15-1.2); Total Protein 9.2 g/dL (6.6-8.7)
[2023-08-16 08:19] LABS: White Blood Count 30.45 10^3/uL (3.29-11.43)
[2023-08-16 08:20] LABS: Potassium 2.9 mmol/L (3.5-5.1)
--- NOTE | 2023-08-16 08:30 | US_ITS ---
WS: [id number] ULTRASOUND ABDOMEN LIMITED CLINICAL INFORMATION: elevated LFTs/leukocytosis COMPARISON: CT earlier today FINDINGS: Liver Size: Enlarged Craniocaudal length: 19.0 cm. Echogenicity: Coarse Surface nodularity: Slightly cirrhotic Mass (size and location): None. 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 Splenic vein is patent. Bile ducts Intrahepatic ducts: Normal. Common bile duct diameter: 0.4 cm. Gallbladder Normal. Gallstones: None. Gallbladder sludge: None. Gallbladder wall thickening: None. Pericholecystic fluid: None. Sonographic Fox sign: Absent. Pancreas Normal as visualized. Right kidney: Echogenic renal pyramids. Enlarged RIGHT kidney Hydronephrosis: None. Size: 12.6 cm x 5.5 cm x 6.1 cm. Abdominal aorta and IVC Visualized portions are normal. Ascites: None. US/US gall bladder [id number] IMPRESSION: 1. Hepatomegaly with slightly cirrhotic hepatic contour. 2. Gallbladder is normal. Normal common bile duct. 3. Echogenic renal pyramids with enlarged RIGHT kidney can be seen with nephro calcinosis, medullary sponge kidney, infection, and metabolic disease 4. No hydronephrosis
--- NOTE | 2023-08-16 08:32 | CT_ITS ---
WS: [id number] CTA CHEST FOLLOWED BY ABDOMEN AND PELVIS TECHNIQUE: contrast enhanced CTA of the chest, followed by abdomen, and pelvis with coronal and sagit ivan reformatted images and additional MIP Images. CLINICAL INFORMATION: dyspnea/abd pain COMPARISON: 09/07/2022 DLP: 1308.[address] scans at [facility] use at least one of these dose optimization techniques: automated e xposure control; mA and/or kV adjustment per patient size (includes targeted exams where dose is matc hed to clinical indication); or iterative reconstruction. FINDINGS: Proximal main pulmonary arteries are normal. Normal segmental and subsegmental pulmonary arteries. No evidence of pulmonary embolus. Lungs are well aerated. No focal pneumonia or pleural fluid. Slight bibasilar atelectasis. Normal prabhu iber thoracic aorta. No mediastinal or hilar lymphadenopathy. No axillary lymphadenopathy. Small esop hageal hiatal hernia. Cardiac pacer. Evidence of small bowel enteritis with diffuse thickening and enhancement of the jejunum in the LEFT upper quadrant. Cirrhotic liver with evidence with evidence of portal venous hypertension. Splenomegaly. Mild stable dilatation of the common bile duct. Upper abdominal varices. Small esophageal hernia. Evidence of gas tritis and duodenitis. Splenic vein is patent. Fatty atrophy of the pancreas with normal enhancement. Tiny low-attenuation lesion inferior RIGHT hepatic lobe likely cyst unchanged. Gallbladder appears n ormal. Fat-containing umbilical hernia. No small or large bowel obstruction. Adrenal glands are normal. Stri ated nephrograms can be seen with pyelonephritis. Recommend correlation for UTI. No hydronephrosis. T iny bilateral renal cysts. Normal bladder. No free fluid in the abdomen or pelvis. Prior postoperative changes RIGHT hemicolectomy. Prior hysterectomy and tubal ligation. Normal calibe r abdominal aorta. Mild aortic calcification. Sigmoid diverticulosis. Fat-containing umbilical hernia progressed compared to previous CT/CT angio chest w abd pel w con IMPRESSION: 1. No evidence of pulmonary embolus. 2. Lungs are well aerated. Slight bibasilar atelectasis. 3. Diffuse small bowel thickening with submucosal enhancement involving the je junum suspicious for small bowel enteritis. 4. Striated nephrograms can be seen with pyelonephritis. Recommend correlation for UTI. This may be due to technique. 5. Cirrhotic liver with splenomegaly similar to the prior study. 6. Small esophageal hiatal hernia with evidence of gastritis and duodenitis. 7. Prior postoperative changes RIGHT hemicolectomy with anastomosis. 8. Prior hysterectomy and tubal ligation 9. No free fluid in the pelvis 10. Progressed fat-containing umbilical hernia
[2023-08-16] MEDS: iohexol 350 mg/mL 500 mL Btl (per mL) IV (08:44)
[2023-08-16] MEDS: piperacillin-tazobactam 3.375 GM in sodium chloride 0.9% (plus) 50 ML IV ×2 (09:04→16:50)
[2023-08-16] MEDS: sodium chloride 0.9% 1,000 ML 999 ML IV (09:08)
[2023-08-16] MEDS: vancomycin 1,000 MG in sodium chloride 0.9% 250 ML 250 MG IV (09:32)
[2023-08-16 09:34] LABS: Reflex Lactate Order REFLEX LACTIC ORDERD
[2023-08-16] MEDS: potassium chloride premix 100 ML 25 MEQ IV ×2 (09:43→13:05)
[2023-08-16 09:59] LABS: Magnesium 0.2 mg/dL (1.7-2.3)
[2023-08-16] MEDS: magnesium sulfate premix 4 GM/100 ML PREMIX IV (10:22)
[2023-08-16 10:40] LABS: Add Urine Microscopic? NO; Charge for UA Resulting for Rev
[2023-08-16 10:50] LABS: Amphetamines Screen Urine Positive (Negative); Barbiturates Screen Urine Negative (Negative); Benzodiazepines Screen Urine Positive (Negative); Cocaine Screen Urine Negative (Negative); Opiate Screen Urine Negative (Negative); PCP Screen Urine Negative (Negative); THC Screen Urine Negative (Negative)
[2023-08-16 10:51] LABS: Bilirubin Urine Neg (Negative); Blood Urine Neg (Negative); Glucose Urine UA Norm (Normal); Ketones Urine Negative (Negative); Leukocyte Esterase Urine Negative (Negative); Nitrate Urine Negative (Negative); Protein Urine Neg (Negative); Urine Appearance Clear (CLEAR); Urine Color Yellow (Yellow); Urobilinogen Urine 1 mg/dL (Negative); pH Urine 7 (5-7)
--- NOTE | 2023-08-16 11:07 | P.HP_ITS ---
Providers/Chief Complaint 2 Admitting Physician: Derek Scott MD, hospitalist Primary Care Provider: Francisco Mckinley DO Chief Complaint: AMS History of Present Illness Maribell Foreman is a 47 year old female with history of, hemicolectomy related to ischemic bowel, peptic ulcer disease, status post pacemaker placement, history of seizure, COPD, fentanyl related overdose leading to cardiac arrest, hepatitis B, liver cirrhosis and multiple other medical problems presenting to the emergency department with complaints of nausea and vomiting over the last 3 days. She reported to the emergency department some abdominal discomfort, but she does not relate that to me. There was concern about confusion, but during my interview she is alert and oriented and is able to relate her history well. She does report she has not taken her regular medicines in the last 3 days. No fever at home. No diarrhea. No current blood in stool or black or tarry stool. No blood in emesis. In the emergency department she got blood cultures done, IV fluids, vancomycin and Zosyn, clonidine, and supplementations with potassium and magnesium started. Review of Systems 2 General: Reports: 10 or more systems reviewed and unremarkable except in HPI and below Card: Denies: chest pain Resp: Denies: dyspnea GI: Reports: nausea and vomiting; Denies: abdominal pain, hematemesis, hematochezia or melena Medications/Allergies Home Medications Medication Instructions Recorded Confirmed Last Taken Type gabapentin 300 mg capsule 300 mg PO BEDTIME 08/07/21 08/16/23 08/14/23 History rjzeio-fiwfalzd-mqdktsu 1 cap PO TID 08/07/21 08/16/23 08/14/23 History 3,000-9,500-15,000 unit capsule, delayed rel (Creon) levothyroxine 50 mcg tablet 50 mcg PO QAM #60 tabs 09/09/22 08/16/23 08/14/23 Rx pantoprazole 40 mg tablet,delayed 40 mg PO BID #60 tabs 09/09/22 08/16/23 08/14/23 Rx release metoclopramide HCl 10 mg tablet 10 mg PO Q6H PRN nausea and 11/21/22 08/16/23 08/14/23 Rx (Reglan) vomiting #20 tabs insulin glargine 100 unit/mL See Rx Instructions .Route .COMPLEX 11/23/22 08/16/23 08/14/23 History subcutaneous solution (Lantus U-100 Insulin) oxycodone 30 mg tablet 30 mg PO Q4H PRN Pain 11/23/22 08/16/23 08/14/23 History albuterol sulfate 90 mcg/actuation 2 puff inhalation Q6H PRN 04/27/23 08/16/23 08/14/23 History aerosol inhaler (Ventolin HFA) Shortness Of Breath amitriptyline 50 mg tablet 50 mg PO BEDTIME 04/27/23 08/16/23 08/14/23 History furosemide 40 mg tablet 40 mg PO BID 04/27/23 08/16/23 08/14/23 History lactulose 10 gram/15 mL oral 90 ml PO TID 04/27/23 08/16/23 08/14/23 History solution lamotrigine 200 mg tablet 200 mg PO DAILY 04/27/23 08/16/23 08/14/23 History levetiracetam 750 mg tablet 750 mg PO BID 04/27/23 08/16/23 08/14/23 History nifedipine 30 mg tablet,extended 30 mg PO DAILY 04/27/23 08/16/23 08/14/23 History release 24 hr scopolamine base 1 mg over 3 days 1 patch topical Q3D 04/27/23 08/16/23 Unknown History transdermal patch spironolactone 25 mg tablet 25 mg PO BID 04/27/23 08/16/23 08/14/23 History sumatriptan succinate 50 mg tablet See Rx Instructions .Route .COMPLEX 04/27/23 08/16/23 08/15/23 History tenofovir disoproxil fumarate 300 300 mg PO DAILY 04/27/23 08/16/23 08/14/23 History mg tablet tizanidine 4 mg tablet 4 mg PO Q6H PRN Spasms 04/27/23 08/16/23 Unknown History potassium chloride 20 mEq 20 meq PO DAILY #10 tabs 08/15/23 08/16/23 Unknown Rx tablet,extended release umeclidinium 62.5 mcg-vilanterol 1 inh inhalation DAILY 08/15/23 08/16/23 08/14/23 History 25 mcg/actuation powdr for inhalation (Anoro Ellipta) zinc sulfate 50 mg zinc (220 mg) 50 mg PO DAILY 08/15/23 08/16/2308/13/24 History capsule Allergies Allergy/AdvReac Type Severity Reaction Status Date / Time codeine Allergy Unknown Unknown Verified 11/23/22 08:22 aspirin Allergy ALGY-Hives Verified 11/23/22 08:22 diphenhydramine Allergy ADR-Muscle Verified 11/23/22 08:22 [From Benadryl] Pain Sulfa (Sulfonamide Allergy ALGY-Swell Verified 11/23/22 08:22 Antibiotics) Lip/Tongue/Throat PFSH Acute 2 PFSH: Medical History Hypokalemia custodial (current) use of opiate analgesic Pain management contract signed Metabolic encephalopathy SSS (sick sinus syndrome) Presence of permanent cardiac pacemaker Seizure disorder Tobacco dependency Hypothyroidism Accidental fentanyl overdose Overdose Cardiac arrest COPD (chronic obstructive pulmonary disease) Chronically on 3 L of oxygen Smoker Thrombocytopenia Bilateral pulmonary embolism Hepatitis B Pulmonary embolism Nicotine dependence, cigarettes, with unspecified nicotine-induced disorders Chronic hepatitis B Chronic abdominal pain Chronic hip pain Leg cramps Stomach cancer Pelvic inflammatory disease Diabetes mellitus Hypertension Encephalopathy Cirrhosis Gastroesophageal reflux GI bleeding Surgical History H/O right hemicolectomy History of right hemicolectomy H/O tubal ligation History of laparotomy History of hysterectomy Family History Mother Diabetes Father CAD (coronary artery disease) Other Cancer Social History Smoking and tobacco/nicotine status: former use of tobacco/nicotine Quit status (tobacco/nicotine): has quit using Year quit tobacco: 2020 Former quit date comment: 2ppd x 26 year Hx Alcohol intake: never Substance/Drug Use: never Vitals/I&O/Wt Last Vital Signs Temp 97.9 F 08/16/23 06:28 Pulse 98 08/16/23 09:55 Resp 16 08/16/23 06:28 BP 166/132 08/16/23 09:55 Pulse Ox 96 08/16/23 09:55 O2 Del Method Room Air 08/16/23 09:55 08/15/23 08/16/23 08/16/23 22:59 06:59 14:59 Intake Total 50 / 50 Balance 50 / 50 Weight last 48 hrs Weight 90.718 kg Physical Exam 2 Narrative: General exam demonstrates a white female, alert and oriented. Blood pressure is noted to be significantly elevated. HEENT: Atraumatic and normocephalic. Pupils equally round. Oropharynx dry Neck is supple no lymphadenopathy thyromegaly Cardiovascular tachycardic, no murmur Lungs clear Abdomen is soft. No obvious organomegaly. Positive bowel sounds exams deferred Extremities no sinus clubbing edema, cap refill brisk Skin no rash Neuro no obvious focal deficits. Data 08/16/23 07:43 08/16/23 07:43 Other Labs: EKG per my read demonstrates sinus tachycardia, normal axis, nonspecific ST-T wave changes, likely LVH Blood cultures were obtained Chest x-ray per my read no infiltrate Gallbladder ultrasound demonstrates cirrhosis, no evidence of obstruction, likely medical renal disease without hydronephrosis CT chest abdomen pelvis demonstrates question small bowel thickening and jejunum possible enteritis, small esophageal hiatal hernia, cirrhosis with splenomegaly INR is normal Total bilirubin 1.4, AST 51, ALT 26, alk phos 130 CK2 94 Ammonia 48 Lactic acid 2.7 Calcium normal, albumin 3.9 Lipase 14 Urinalysis negative Urine drug screen positive for amphetamines and benzodiazepines and notably negative for opiates A&P Assessment and plan (1) Acute encephalopathy: Patient presents with acute encephalopathy Etiology is likely multifactorial Concern with methamphetamine use recently, although patient denies. She does report vaping. She does not indicate this was drugs other than nicotine. She appears to be improving already (2) Hypokalemia: Potassium being supplemented in the emergency department Close follow-up of potassium (3) Hypomagnesemia: Magnesium supplemented in the emergency department. Close follow-up of magnesium after supplementation. (4) Enteritis: Question enteritis, versus just abnormal CT versus vomiting Continue Zosyn Blood cultures Close monitoring (5) Positive urine drug screen: Drug screen positive for amphetamine and benzodiazepines. Most notably negative for narcotics which she is supposed to be chronically on. She may be having active withdrawal. Continue to monitor closely (6) Leukocytosis: Significant leukocytosis. This may be due to margination secondary to withdrawal or amphetamine use Secondary to concern for enteritis continue Zosyn. No need for vancomycin currently. Blood cultures were drawn. (7) Transaminitis: Continue to follow. Patient is known to have chronic hepatitis B. Plan History of seizure disorder. She denies any recent seizures. Continue her seizure medication. Marked hypertension. Will give her a dose of morphine. I think this is likely withdrawal or noncompliance with her medicine. Will also restart her home medication. Dehydration, continue hydration, close follow-up electrolytes Mild increase in CK. Recheck tomorrow. Continue hydration Multiple other medical problems as outlined in past medical history Full code Lovenox for DVT prophylaxis Initially placed in the ICU secondary to likely withdrawal, need for further services, need for close monitoring in this patient who is likely recently use methamphetamine. Attestations 2 Medical Necessity Statement*: Will need greater than 2 midnight stay for evaluation and treatment of organ dysfunction with multiple comorbidities with possible withdrawal and major electrolyte disturbance. Diagnoses Acute encephalopathy G93.40 Hypokalemia E87.6 Hypomagnesemia E83.42 Enteritis K52.9 Positive urine drug screen R82.5 Leukocytosis D72.829 Transaminitis R74.01 Time Spent (min) 64
[2023-08-16 11:52] LABS: Lactic Acid level (Lactate) 1.8 mmol/L (0.5-2.2)
[2023-08-16] MEDS: pantoprazole 40 mg SDV IVP ×2 (11:55→22:17)
[2023-08-16] MEDS: morphine 4 mg/mL SDV 1 mL 2 MG IVP (11:57)
[2023-08-16 12:13] LABS: Thyroid Stimulating Hormone 0.49 uIU/mL (0.27-4.20)
[2023-08-16] MEDS: NIFEdipine ER (24 hr) 30 mg Tablet PO (13:02)
[2023-08-16] MEDS: enoxaparin 40 mg/0.4 mL Syringe SUBCUT (13:02)
[2023-08-16] MEDS: levETIRAcetam 500 mg Tablet 750 MG PO ×2 (13:03→18:05)
[2023-08-16] MEDS: sodium chloride 0.9% 1,000 ML 125 ML IV ×2 (13:06→21:12)
[2023-08-16] MEDS: lipase-protease-amylase Capsule 1 EACH PO ×2 (14:30→21:08)
[2023-08-16] MEDS: hyDRALAzine 20 mg/mL INJ 1 mL 10 MG IVP ×2 (14:30→21:08)
[2023-08-16] MEDS: oxyCODONE IR 30 mg Tablet PO (15:09)
--- NOTE | 2023-08-16 15:34 | PC.NURSE ---
more awake at this time related that she lives in car and has not taking medication in 3 days has underwear on and shirt also long sweater with several holes burnt in it denies smoking has had nausea related has misplaced her upper and lower dentures ,, looked in bag not with pt ... treating blood pressure with meds
--- NOTE | 2023-08-16 16:30 | PC.NURSE ---
pt resting with eyes closed blood pressure more controlled but heart rate up to 140 no change in orders
[2023-08-16] MEDS: metoprolol tartrate 1 mg/1 mL SDV 5 mL 5 MG IVP (16:51)
[2023-08-16 17:44] LABS: Glucose Point of Care 114 mg/dL (70-110)
--- NOTE | 2023-08-16 17:45 | PC.NURSE ---
heart rate now controlled , up on side of bed and evening meal served ... monitor vs
[2023-08-16 21:07] LABS: Glucose Point of Care 119 mg/dL (70-110)
[2023-08-16] MEDS: gabapentin 300 mg Capsule PO (21:09)
[2023-08-16] MEDS: tizanidine 4 mg Tablet PO (22:17)
[2023-08-17] VITALS (59 sets, daily range): BP systolic 92–194; BP diastolic 50–123; PULSE 76–118; RESP 14–46; TEMP 36.4–37.2; O2SAT 89–96; BMI 29.8
[2023-08-17] MEDS: piperacillin-tazobactam 3.375 GM in sodium chloride 0.9% (plus) 50 ML IV ×3 (01:15→17:15)
[2023-08-17 03:51] LABS: Basophils # 0.1 10^3/uL (0.0-0.1); Basophils % 0.3 %; Eosinophils # 0.1 10^3/uL (0.0-0.8); Eosinophils % 0.6 %; Hematocrit 40.8 % (36-47); Lymphocytes # 2.5 10^3/uL (0.8-4.8); Lymphocytes % 17.2 %; Mean Corpuscular HGB Conc 33.8 g/dL (30-55); Mean Corpuscular Hemoglobin 30.5 pg (27-33); Mean Corpuscular Volume 90.3 fl (85-98); Mean Platelet Volume 12.1 fL (7.4-10.4); Monocytes # 1.9 10^3/uL (0.2-0.9); Monocytes % 13.1 %; Neutrophils # 10.04 10^3/uL (1.8-7.7); Neutrophils % 68.5 %; Nucleated Red Blood Cells % 0 %; Platelet Count 109 10^3/cmm (157-399); Red Blood Count 4.52 10^6/uL (3.85-5.65); Red Cell Distribution Width 13.6 % (12.1-15.1); White Blood Count 14.69 10^3/uL (3.29-11.43)
[2023-08-17] MEDS: oxyCODONE IR 30 mg Tablet PO ×5 (04:35→22:02)
[2023-08-17] MEDS: hyDRALAzine 20 mg/mL INJ 1 mL 10 MG IVP (04:36)
[2023-08-17] MEDS: levothyroxine 50 mcg Tablet PO (05:44)
[2023-08-17] MEDS: sodium chloride 0.9% 1,000 ML 125 ML IV ×2 (05:44→13:52)
[2023-08-17 05:59] LABS: Alanine Aminotransferase 20 U/L (0-33); Albumin Level 3.1 g/dL (3.5-5.2); Alkaline Phosphatase 96 U/L (35-105); Aspartate Amino Transferase 33 U/L (0-32); Blood Urea Nitrogen 12 mg/dL (6-20); Calcium 8.1 mg/dL (8.5-10.5); Carbon Dioxide 23 mmol/L (22-29); Chloride 107 mmol/L (98-107); Creatine Phosphokinase 73 U/L (26-192); Creatinine Clr Calc Pharmacy 182.1035; Glomerular Filtration Rate 131.7 mL/min (90-130); Glucose 118 mg/dL (65-115); Magnesium 1.6 mg/dL (1.7-2.3); Osmolality Calculated 291 mOsm/kg (285-295); Sodium 140 mmol/L (136-145); Total Bilirubin 1.1 mg/dL (0.15-1.2); Total Protein 7.1 g/dL (6.6-8.7)
[2023-08-17 08:16] LABS: Glucose Point of Care 103 mg/dL (70-110)
[2023-08-17] MEDS: lipase-protease-amylase Capsule 1 EACH PO ×3 (08:37→21:29)
[2023-08-17] MEDS: lactulose oral liq 20 gm/30 mL UDC 60 GM PO ×2 (08:37→13:51)
[2023-08-17] MEDS: NIFEdipine ER (24 hr) 30 mg Tablet PO (08:37)
[2023-08-17] MEDS: lamoTRIgine 100 mg Tablet 200 MG PO (08:38)
[2023-08-17] MEDS: levETIRAcetam 500 mg Tablet 750 MG PO ×2 (08:38→17:14)
[2023-08-17] MEDS: nicotine 21 mg Patch 1 PATCH TRANSDERMA (08:39)
[2023-08-17] MEDS: potassium chloride ER 20 mEq Tablet 40 MEQ PO (08:39)
[2023-08-17] MEDS: magnesium sulfate premix 2 GM/50 ML PIGGYBACK IV (08:39)
[2023-08-17] MEDS: lidocaine 1% 5 ML in potassium chloride premix 100 ML 52.5 ML IV (08:40)
[2023-08-17] MEDS: metoprolol tartrate 25 mg Tablet PO ×2 (08:42→21:29)
--- NOTE | 2023-08-17 09:22 | P.PN_ITS ---
Subjective 2 Subjective: Maribell reports she is doing a little bit better. She does have some pain all over. She denies any cough. She reports she is not nauseous this morning and is interested in eating. Denies any amphetamine use, although again she reports she vapes. Wants a nicotine patch. Some abdominal pain but not severe Medications: Reviewed: Yes Vitals/I&O/Wt Last Vital Signs Temp 99 F 08/17/23 08:00 Pulse 102 H 08/17/23 06:45 Resp 17 08/17/23 08:37 BP 161/90 08/17/23 06:45 Pulse Ox 96 08/17/23 06:45 O2 Del Method Room Air 08/17/23 06:45 08/16/23 08/17/23 08/17/23 22:59 06:59 14:59 Intake Total 1840 / 3324.167 1770 / 5094.167 Output Total 1150 / 1150 700 / 1850 Balance 690 / 2174.167 1070 / 3244.167 Weight last 48 hrs Weight 99.932 kg Weight 99.932 kg Weight 90.718 kg Weight 90.718 kg Physical Exam 2 Narrative: General exam demonstrates a white female, alert and oriented. Heart rate and blood pressure improved Neck is supple no lymphadenopathy thyromegaly Cardiovascular tachycardic, no murmur Lungs clear Abdomen is soft. No obvious organomegaly. Positive bowel sounds Extremities no sinus clubbing edema, cap refill brisk Data 08/17/23 03:12 08/17/23 05:29 Micro: Microbiology 08/16/23 11:07 Blood Culture - Preliminary Blood SPECIMEN COLLECTED 08/16/23 11:00 Blood Culture - Preliminary Blood SPECIMEN COLLECTED A&P Assessment and plan (1) Acute encephalopathy: Patient presents with acute encephalopathy Etiology is likely multifactorial Concern with methamphetamine use recently, although patient denies. She does report vaping. She does not indicate this was drugs other than nicotine. She is back to baseline (2) Hypokalemia: Supplement again today (3) Hypomagnesemia: Improved but still low. Supplement again today (4) Enteritis: Question enteritis, versus just abnormal CT versus vomiting Continue Zosyn Blood cultures pending Overall improved. No nausea. (5) Positive urine drug screen: Drug screen positive for amphetamine and benzodiazepines. Most notably negative for narcotics which she is supposed to be chronically on. She may be having active withdrawal. Continue to monitor closely (6) Leukocytosis: Improving rapidly this may be due to margination secondary to withdrawal or amphetamine use. Doubt anything more nefarious. Secondary to concern for enteritis continue Zosyn. No need for vancomycin currently. Blood cultures were drawn. (7) Transaminitis: Continue to follow. Patient is known to have chronic hepatitis B. Improved. Plan History of seizure disorder. She denies any recent seizures. Continue her seizure medication. Marked hypertension. Possibly withdrawal. Has restarted her home meds. Add metoprolol 25 mg twice daily Dehydration, continue hydration, close follow-up electrolytes Mild increase in CK. On recheck today this is normalized. Decrease hydration by IV. Multiple other medical problems as outlined in past medical history Full code Lovenox for DVT prophylaxis Transfer out of ICU to [facility] [place] Attestations 2 Medical Necessity Statement*: Needs continued hospitalization for close monitoring secondary to adjustment of medications for hypertension, markedly elevated leukocytosis with concern of enteritis on IV Zosyn. Possible discharge tomorrow. Diagnoses Acute encephalopathy G93.40 Hypokalemia E87.6 Hypomagnesemia E83.42 Enteritis K52.9 Positive urine drug screen R82.5 Leukocytosis D72.829 Transaminitis R74.01 Time Spent (min) 23
[2023-08-17 11:31] LABS: Glucose Point of Care 112 mg/dL (70-110)
[2023-08-17] MEDS: pantoprazole 40 mg SDV IVP ×2 (11:32→22:14)
[2023-08-17] MEDS: ondansetron 2 mg/ML SDV 2 mL 4 MG IVP (11:32)
[2023-08-17] MEDS: enoxaparin 40 mg/0.4 mL Syringe SUBCUT (11:32)
--- NOTE | 2023-08-17 11:45 | PC.NURSE ---
Report called to SUJIT Lee in Med Surg.
--- NOTE | 2023-08-17 12:14 | PC.NURSE ---
Pt transferred to [id number] via w/c without any issues noted. Attempted to find SUJIT Lee but the desk said that she was busy with another pt and that they would let her know that the pt had arrived.
[2023-08-17 16:37] LABS: Glucose Point of Care 103 mg/dL (70-110)
[2023-08-17 20:20] LABS: Glucose Point of Care 101 mg/dL (70-110)
[2023-08-17] MEDS: gabapentin 300 mg Capsule PO (21:29)
[2023-08-17] MEDS: sodium chloride 0.9% 1,000 ML 100 ML IV (22:04)
[2023-08-18] VITALS (10 sets, daily range): BP systolic 100–155; BP diastolic 65–91; PULSE 72–85; RESP 16–19; TEMP 36.6–36.8; O2SAT 93–96
[2023-08-18] MEDS: piperacillin-tazobactam 3.375 GM in sodium chloride 0.9% (plus) 50 ML IV ×3 (00:39→18:05)
[2023-08-18] MEDS: ondansetron 2 mg/ML SDV 2 mL 4 MG IVP (01:14)
[2023-08-18 01:41] LABS: Glucose Point of Care 94 mg/dL (70-110)
[2023-08-18] MEDS: oxyCODONE IR 30 mg Tablet PO ×4 (05:38→21:37)
[2023-08-18] MEDS: levothyroxine 50 mcg Tablet PO (05:38)
[2023-08-18 06:27] LABS: Glucose Point of Care 95 mg/dL (70-110)
[2023-08-18 06:39] LABS: Basophils # 0.1 10^3/uL (0.0-0.1); Eosinophils # 0.3 10^3/uL (0.0-0.8); Eosinophils % 3.6 %; Hematocrit 42.4 % (36-47); Lymphocytes # 3.5 10^3/uL (0.8-4.8); Mean Corpuscular HGB Conc 32.5 g/dL (30-55); Mean Corpuscular Hemoglobin 29.9 pg (27-33); Mean Platelet Volume 11.1 fL (7.4-10.4); Monocytes # 1.2 10^3/uL (0.2-0.9); Monocytes % 12.4 %; Neutrophils # 4.12 10^3/uL (1.8-7.7); Neutrophils % 44.2 %; Nucleated Red Blood Cells % 0 %; Platelet Count 146 10^3/cmm (157-399); Red Blood Count 4.61 10^6/uL (3.85-5.65); White Blood Count 9.29 10^3/uL (3.29-11.43)
[2023-08-18 06:59] LABS: Alanine Aminotransferase 18 U/L (0-33); Alkaline Phosphatase 111 U/L (35-105); Anion Gap 12.7 (5-19); Aspartate Amino Transferase 34 U/L (0-32); Blood Urea Nitrogen 9 mg/dL (6-20); Calcium 8.1 mg/dL (8.5-10.5); Carbon Dioxide 23 mmol/L (22-29); Chloride 112 mmol/L (98-107); Creatinine Clr Calc Pharmacy 155.1973; Globulin 3.8 g/dL (1.3-4.6); Glomerular Filtration Rate 106.7 mL/min (90-130); Glucose 106 mg/dL (65-115); Magnesium 1.7 mg/dL (1.7-2.3); Osmolality Calculated 297 mOsm/kg (285-295); Potassium 3.7 mmol/L (3.5-5.1); Sodium 144 mmol/L (136-145); Total Bilirubin 0.8 mg/dL (0.15-1.2); Total Protein 6.8 g/dL (6.6-8.7)
[2023-08-18] MEDS: lipase-protease-amylase Capsule 1 EACH PO ×3 (10:13→20:39)
[2023-08-18] MEDS: NIFEdipine ER (24 hr) 30 mg Tablet PO (10:13)
[2023-08-18] MEDS: lamoTRIgine 100 mg Tablet 200 MG PO (10:14)
[2023-08-18] MEDS: levETIRAcetam 500 mg Tablet 750 MG PO ×2 (10:14→18:06)
[2023-08-18] MEDS: metoprolol tartrate 25 mg Tablet PO (10:15)
[2023-08-18] MEDS: nicotine 21 mg Patch 1 PATCH TRANSDERMA (10:15)
[2023-08-18] MEDS: lactulose oral liq 20 gm/30 mL UDC 60 GM PO (10:18)
[2023-08-18 11:07] LABS: Glucose Point of Care 114 mg/dL (70-110)
[2023-08-18] MEDS: enoxaparin 40 mg/0.4 mL Syringe SUBCUT (11:13)
[2023-08-18] MEDS: sodium chloride 0.9% 1,000 ML 100 ML IV ×2 (11:14→21:38)
[2023-08-18] MEDS: pantoprazole 40 mg SDV IVP ×2 (11:14→23:34)
--- NOTE | 2023-08-18 12:09 | PC.NURSE ---
The patient asked about her $64 and dentures as well as her sweater. Noted on admission that she did not have her teeth or belongings with her on arrival. Spoke to admission nurse and confirmed. Patient made aware of this.
--- NOTE | 2023-08-18 15:54 | P.PN_ITS ---
Subjective 2 Subjective: Complains of abdominal pain and tenderness in the left lower quadrant today. States she continues to feel nauseous with any p.o. intake. White blood cell count now normal. Refused lactulose overnight. Has not had a bowel movement today. Medications: Reviewed: Yes Vitals/I&O/Wt Last Vital Signs Temp 98.1 F 08/18/23 11:50 Pulse 74 08/18/23 11:50 Resp 16 08/18/23 14:56 BP 155/91 08/18/23 11:50 Pulse Ox 96 08/18/23 11:50 O2 Del Method Room Air 08/18/23 11:50 08/18/23 08/18/23 08/18/23 06:59 14:59 22:59 Intake Total 290 / 4005 2710 / 2710 Balance 290 / 3305 2710 / 2710 Weight last 48 hrs Weight 104.689 kg Weight 99.932 kg Weight 99.932 kg Physical Exam 2 Narrative: General: No acute distress, AO x3 HEENT: PERRLA, pupils bilaterally equal and reactive, pallors not present Chest: Normal vesicular breath sounds, no added sounds, equal good air entry bilaterally CVS: S1-S2 regular, no murmurs, no tachycardia, no gallops, no rubs Abdomen: Soft, discomfort to palpation lower quadrant Neuro: No focal deficits, no facial deformity, AO x3, power 5/5 in all limbs Extremities: Healthy surgical dressing present on the right hip, mild tenderness, soft no erythema. Data 08/18/23 06:25 08/18/23 06:25 Micro: Microbiology 08/16/23 11:00 Blood Culture - Preliminary Blood NEGATIVE TO DATE 08/16/23 11:07 Blood Culture - Preliminary Blood NEGATIVE TO DATE A&P Assessment and plan (1) Acute encephalopathy: Patient presented with acute encephalopathy Etiology is likely multifactorial related to methamphetamine use recently She is now back to baseline. Alert awake oriented. (2) Hypokalemia: Resolved (3) Hypomagnesemia: Resolved (4) Enteritis: CT of the abdomen and pelvis shows diffuse small bowel thickening with submucosal enhancement involving the jejunum suspicious for small bowel enteritis. Cirrhotic liver and splenomegaly which are known from prior history. Continue Zosyn Blood cultures negative to date Overall was improving, however reports she is starting to experience pain again. Will continue to monitor her over the next 24 hours in the hospital. (5) Positive urine drug screen: Drug screen positive for amphetamine and benzodiazepines. Most notably negative for narcotics which she is supposed to be chronically on. She may be having active withdrawal. Continue to monitor closely. She has been started on oxycodone IR 30 mg every 4 hours as needed. (6) Leukocytosis: Improving rapidly today (7) Transaminitis: Continue to follow. Patient is known to have chronic hepatitis B. Improved. Plan History of seizure disorder. She denies any recent seizures. Continue her seizure medication. Hypertension better controlled today Dehydration, continue hydration, close follow-up electrolytes Mild increase in CK. On recheck today this is normalized. Decrease hydration by IV. Multiple other medical problems as outlined in past medical history Full code Lovenox for DVT prophylaxis Attestations 2 Medical Necessity Statement*: continued admission for pian management, continue iv abx and hydration Coding Level of Care Code Acute Code for Chg Fwd Moderate MDM includes number and complexity of problems actively addressed during encounter, amount and/or complexity of data reviewed/ordered and described risk of complication, morbidity or mortality of management as documented Diagnoses Acute encephalopathy G93.40 Hypokalemia E87.6 Hypomagnesemia E83.42 Enteritis K52.9 Positive urine drug screen R82.5 Leukocytosis D72.829 Transaminitis R74.01
[2023-08-18 17:03] LABS: Glucose Point of Care 108 mg/dL (70-110)
[2023-08-18] MEDS: tizanidine 4 mg Tablet PO (18:06)
[2023-08-18] MEDS: gabapentin 300 mg Capsule PO (20:40)
[2023-08-18 21:38] LABS: Glucose Point of Care 163 mg/dL (70-110)
[2023-08-18] MEDS: insulin lispro 100 unit/1 mL SUBCUT (21:52)
[2023-08-19] VITALS (7 sets, daily range): BP systolic 98–131; BP diastolic 64–82; PULSE 65–94; RESP 17–18; TEMP 36.4–37.1; O2SAT 92–96
[2023-08-19] MEDS: piperacillin-tazobactam 3.375 GM in sodium chloride 0.9% (plus) 50 ML IV ×2 (00:50→08:27)
[2023-08-19] MEDS: oxyCODONE IR 30 mg Tablet PO ×3 (01:46→13:12)
[2023-08-19] MEDS: CLONazepam 0.5 mg Tablet PO (02:15)
[2023-08-19 06:08] LABS: Basophils # 0.1 10^3/uL (0.0-0.1); Basophils % 0.9 %; Eosinophils # 0.4 10^3/uL (0.0-0.8); Eosinophils % 5.5 %; Hematocrit 40.9 % (36-47); Lymphocytes % 44.4 %; Mean Corpuscular HGB Conc 33.3 g/dL (30-55); Mean Corpuscular Hemoglobin 30.2 pg (27-33); Mean Corpuscular Volume 90.9 fl (85-98); Mean Platelet Volume 11.2 fL (7.4-10.4); Monocytes # 0.6 10^3/uL (0.2-0.9); Monocytes % 9.2 %; Neutrophils # 2.68 10^3/uL (1.8-7.7); Neutrophils % 39.1 %; Nucleated Red Blood Cells % 0 %; Platelet Count 142 10^3/cmm (157-399); Red Cell Distribution Width 13.3 % (12.1-15.1); White Blood Count 6.85 10^3/uL (3.29-11.43)
[2023-08-19 06:23] LABS: Alanine Aminotransferase 17 U/L (0-33); Albumin Level 2.9 g/dL (3.5-5.2); Alkaline Phosphatase 94 U/L (35-105); Anion Gap 12.6 (5-19); Aspartate Amino Transferase 26 U/L (0-32); Blood Urea Nitrogen 7 mg/dL (6-20); Calcium 7.2 mg/dL (8.5-10.5); Carbon Dioxide 25 mmol/L (22-29); Chloride 107 mmol/L (98-107); Creatinine Clr Calc Pharmacy 185.6998; Globulin 3.7 g/dL (1.3-4.6); Glomerular Filtration Rate 131.7 mL/min (90-130); Glucose 119 mg/dL (65-115); Osmolality Calculated 291 mOsm/kg (285-295); Potassium 3.6 mmol/L (3.5-5.1); Sodium 141 mmol/L (136-145); Total Bilirubin 0.5 mg/dL (0.15-1.2); Total Protein 6.6 g/dL (6.6-8.7)
[2023-08-19] MEDS: levothyroxine 50 mcg Tablet PO (06:26)
[2023-08-19 06:35] LABS: Glucose Point of Care 95 mg/dL (70-110)
[2023-08-19] MEDS: levETIRAcetam 500 mg Tablet 750 MG PO (08:25)
[2023-08-19] MEDS: nicotine 21 mg Patch 1 PATCH TRANSDERMA (08:25)
[2023-08-19] MEDS: lamoTRIgine 100 mg Tablet 200 MG PO (08:26)
[2023-08-19] MEDS: metoprolol tartrate 25 mg Tablet PO (08:28)
[2023-08-19] MEDS: lipase-protease-amylase Capsule 1 EACH PO (08:28)
[2023-08-19] MEDS: NIFEdipine ER (24 hr) 30 mg Tablet PO (08:28)
[2023-08-19] MEDS: tizanidine 4 mg Tablet PO (09:43)
[2023-08-19 11:20] LABS: Glucose Point of Care 144 mg/dL (70-110)
--- NOTE | 2023-08-19 11:28 | PM.DCS ---
Discharge Providers Date of Admission: 08/16/23 11:38 Date of Discharge: August 19, 2023 Attending Provider at Admission: Derek Scott MD Attending Provider at Discharge: Natalia Talavera MD Primary Care Provider: Francisco Mckinley DO Diagnoses at Discharge Discharge Diagnosis (1) Acute encephalopathy: Status: Acute (2) Hypokalemia: Status: Acute (3) Hypomagnesemia: Status: Acute (4) Enteritis: Status: Acute (5) Positive urine drug screen: Status: Acute (6) Leukocytosis: Status: Acute (7) Transaminitis: Status: Acute Reason for Visit Reason for Visit: AMS Brief History: Maribell Foreman is a 47 year old female with history of, hemicolectomy related to ischemic bowel, peptic ulcer disease, status post pacemaker placement, history of seizure, COPD, fentanyl related overdose leading to cardiac arrest, hepatitis B, liver cirrhosis presenting to the emergency department with complaints of nausea and vomiting over the last 3 days. She reported to the emergency department with abdominal discomfort, nausea and vomiting. She reported being out of her medications including opiates for the past 3 days prior to admission. She was noted to have leukocytosis, thought to be related to a combination of dehydration. CT of the abdomen pelvis raise concern for possible enteritis with small bowel thickening of the jejunum. Also noted small esophageal hiatal hernia. She received treatment with IV fluids, antibiotic empirically with piperacillin/tazobactam. There was additional concern for opiate withdrawal as her urine tox had tested negative while she was previously on oxycodone every 4 hours. She also had hypokalemia and hypomagnesemia both of which were corrected with IV supplementation. She improved with these intervention. Leukocytosis has now normalized. She is being discharged with recommendations to continue Augmentin over the next 3 days. She received an inpatient course of IV antibiotics between August 15 to August 19, 2023. Additionally given prescription for oxycodone for 1 day to avoid any opiate withdrawal. Patient reports that she will bulk picker all of her prescriptions from [facility] tomorrow. For her history it appears she is locked into 1 particular pharmacy with prescriptions allowed only from specific providers. She is overall clinically improved. Lasix was reduced to 40 mg p.o. daily from 40 mg p.o. twice daily. She reported using 30 units of Lantus every day at home. However during the admission course her fingersticks remained between 95-1 63 and HbA1c returned at 5.4. She states that her Lantus has not been readjusted in ears. During the course of admission over 4 days we only needed to give her 2 units of short acting insulin. In keeping with this I have discontinued her insulin at the time of discharge. Please follow-up with your primary care provider in the next 5 to 7 days to discuss your diabetic regimen. She is not a type I diabetic per her history. She reports a longstanding history of hepatic encephalopathy. Currently maintained on lactulose. However reports noncompliance with lactulose on several occasions needing hospital admissions. She is inquiring if she can get rifaximin as she is more likely to be compliant with oral medications. Prescription has been generated for her, however also counseled that rifaximin and isolation is not going to be helpful, she should remain on lactulose to ensure she does not get constipated. Physical Exam Narrative: General: No acute distress, AO x3 HEENT: PERRLA, pupils bilaterally equal and reactive, pallors not present Chest: Normal vesicular breath sounds, no added sounds, equal good air entry bilaterally CVS: S1-S2 regular, no murmurs, no tachycardia, no gallops, no rubs Abdomen: Soft, nontender, no organomegaly, bowel sounds present Neuro: No focal deficits, no facial deformity, AO x3, power 5/5 in all limbs Discharge Data Studies Completed and Pending Completed Studies During Hospitalization Category Date Time Status CTA chest CT abdomen pelvis [CT angio chest w abd pel w Cat Scan 08/16/23 08:32 Completed con] Stat XR chest 1V portable [id number] Stat Exams 08/16/23 06:44 Completed US gall bladder [id number] Stat Ultrasound 08/16/23 08:30 Completed Pending at discharge Category Date Time Status Blood Culture Stat Lab 08/16/23 11:07 Results Radiology Impressions Chest X-Ray 08/16/23 06:44 IMPRESSION: 1. Mild hyperinflation. No acute process. Gallbladder Ultrasound 08/16/23 08:30 IMPRESSION: 1. Hepatomegaly with slightly cirrhotic hepatic contour. 2. Gallbladder is normal. Normal common bile duct. 3. Echogenic renal pyramids with enlarged RIGHT kidney can be seen with nephrocalcinosis, medullary sponge kidney, infection, and metabolic disease 4. No hydronephrosis Chest/Abdomen/Pelvis CT 08/16/23 08:32 IMPRESSION: 1. No evidence of pulmonary embolus. 2. Lungs are well aerated. Slight bibasilar atelectasis. 3. Diffuse small bowel thickening with submucosal enhancement involving the jejunum suspicious for small bowel enteritis. 4. Striated nephrograms can be seen with pyelonephritis. Recommend correlation for UTI. This may be due to technique. 5. Cirrhotic liver with splenomegaly similar to the prior study. 6. Small esophageal hiatal hernia with evidence of gastritis and duodenitis. 7. Prior postoperative changes RIGHT hemicolectomy with anastomosis. 8. Prior hysterectomy and tubal ligation 9. No free fluid in the pelvis 10. Progressed fat-containing umbilical hernia Laboratory Results WBC 6.85 10^3/uL (3.29-11.43) 08/19/23 05:52 RBC 4.50 10^6/uL (3.85-5.65) 08/19/23 05:52 Hgb 13.60 g/dL (11.27-16.99) 08/19/23 05:52 Hct 40.9 % (36-47) 08/19/23 05:52 MCV 90.9 fl (85-98) 08/19/23 05:52 MCH 30.2 pg (27-33) 08/19/23 05:52 MCHC 33.3 g/dL (30-55) 08/19/23 05:52 RDW 13.3 % (12.1-15.1) 08/19/23 05:52 Plt Count 142 10^3/cmm (157-399) L 08/19/23 05:52 MPV 11.2 fL (7.4-10.4) H 08/19/23 05:52 Neut % (Auto) 39.1 % 08/19/23 05:52 Lymph % (Auto) 44.4 % 08/19/23 05:52 [place] % (Auto) 9.2 % 08/19/23 05:52 Eos % (Auto) 5.5 % 08/19/23 05:52 Baso % (Auto) 0.9 % 08/19/23 05:52 Neut # (Auto) 2.68 10^3/uL (1.8-7.7) 08/19/23 05:52 Lymph # (Auto) 3.0 10^3/uL (0.8-4.8) 08/19/23 05:52 [place] # (Auto) 0.6 10^3/uL (0.2-0.9) 08/19/23 05:52 Eos # (Auto) 0.4 10^3/uL (0.0-0.8) 08/19/23 05:52 Baso # (Auto) 0.1 10^3/uL (0.0-0.1) 08/19/23 05:52 Nucleated RBC % (auto) 0 % 08/19/23 05:52 Nucleated RBCs # 0.0 /100WBC 08/19/23 05:52 PT 14.70 SECONDS (12.1-14.9) 08/16/23 07:43 INR 1.11 (0.8-1.2) 08/16/23 07:43 Sodium 141 mmol/L (136-145) 08/19/23 05:52 Potassium 3.6 mmol/L (3.5-5.1) 08/19/23 05:52 Chloride 107 mmol/L (98-107) 08/19/23 05:52 Carbon Dioxide 25 mmol/L (22-29) 08/19/23 05:52 Anion Gap 12.6 (5-19) 08/19/23 05:52 BUN 7 mg/dL (6-20) 08/19/23 05:52 Creatinine 0.5 mg/dL (0.5-0.9) 08/19/23 05:52 GFR Calculation 131.7 mL/min (90-130) H 08/19/23 05:52 Glucose 119 mg/dL (65-115) H 08/19/23 05:52 POC Glucose 144 mg/dL (70-110) H 08/19/23 11:16 Calculated Osmolality 291 mOsm/kg (285-295) 08/19/23 05:52 Lactic Acid 2.7 mmol/L (0.5-2.2) H 08/16/23 07:43 Lactic Acid (Sepsis) 1.8 mmol/L (0.5-2.2) 08/16/23 11:07 Calcium 7.2 mg/dL (8.5-10.5) L 08/19/23 05:52 Magnesium 1.7 mg/dL (1.7-2.3) 08/18/23 06:25 Total Bilirubin 0.5 mg/dL (0.15-1.2) 08/19/23 05:52 AST 26 U/L (0-32) 08/19/23 05:52 ALT 17 U/L (0-33) 08/19/23 05:52 Alkaline Phosphatase 94 U/L (35-105) 08/19/23 05:52 Ammonia 48 umol/L (11-51) 08/16/23 07:43 Creatine Kinase 73 U/L (26-192) 08/17/23 05:29 Total Protein 6.6 g/dL (6.6-8.7) 08/19/23 05:52 Albumin 2.9 g/dL (3.5-5.2) L 08/19/23 05:52 Globulin 3.7 g/dL (1.3-4.6) 08/19/23 05:52 Lipase 14 U/L (13-60) 08/16/23 07:43 TSH 0.49 uIU/mL (0.27-4.20) 08/16/23 07:45 Urine Color Yellow (Yellow) 08/16/23 10:29 Urine Appearance Clear (CLEAR) 08/16/23 10:29 Urine pH 7 (5-7) 08/16/23 10:29 Ur Specific [place] 1.010 (1.005-1.030) 08/16/23 10:29 Urine Protein Neg (Negative) 08/16/23 10:29 Urine Glucose (UA) Norm (Normal) 08/16/23 10:29 Urine Ketones Negative (Negative) 08/16/23 10:29 Urine Blood Neg (Negative) 08/16/23 10:29 Urine Nitrate Negative (Negative) 08/16/23 10:29 Urine Bilirubin Neg (Negative) 08/16/23 10:29 Urine Urobilinogen 1 mg/dL (Negative) H 08/16/23 10:29 Ur Leukocyte Esterase Negative (Negative) 08/16/23 10:29 Urine Opiates Screen Negative ng/mL (Negative) 08/16/23 10:29 Ur Barbiturates Screen Negative ng/mL (Negative) 08/16/23 10:29 Ur Phencyclidine Scrn Negative ng/mL (Negative) 05/30/24 10:29 Ur Amphetamines Screen Positive ng/mL (Negative) H 08/16/23 10:29 U Benzodiazepines Scrn Positive ng/mL (Negative) H 08/16/23 10:29 Urine Cocaine Screen Negative ng/mL (Negative) 08/16/23 10:29 U Marijuana (THC) Screen Negative ng/mL (Negative) 08/16/23 10:29 Vitals Last Vital Signs Temp 97.5 F L 08/19/23 07:49 Pulse 91 08/19/23 07:49 Resp 18 08/19/23 07:49 BP 131/82 08/19/23 07:49 Pulse Ox 92 08/19/23 07:49 O2 Del Method Room Air 08/19/23 07:49 Discharge Plan Discharge Patient Disposition: Home Condition: Stable Prescriptions: New amoxicillin-pot clavulanate 875-125 mg tablet 1 tab PO Q12H 5 Days Qty: 10 0RF rifaximin 550 mg tablet 550 mg PO BID 30 Days Qty: 60 0RF oxycodone 30 mg tablet 30 mg PO Q4H PRN (Reason: pain) 1 Days Qty: 7 0RF Continued zinc sulfate 50 mg zinc (220 mg) capsule 50 mg PO DAILY scopolamine base 1 mg over 3 days patch 3 day 1 patch topical Q3D tenofovir disoproxil fumarate 300 mg tablet 300 mg PO DAILY nifedipine 30 mg tablet extended release 24hr 30 mg PO DAILY 30 Days Qty: 30 0RF lamotrigine 200 mg tablet 200 mg PO DAILY 30 Days Qty: 30 0RF tizanidine 4 mg tablet 4 mg PO Q6H PRN (Reason: Spasms) 10 Days Qty: 30 0RF sumatriptan succinate 50 mg tablet See Rx Instructions .ROUTE .COMPLEX 10 Days Qty: 10 0RF Rx Instructions: MAY REPEAT IN TWO HOURS, MAX OF 200MG IN 24 HOURS amitriptyline 50 mg tablet 50 mg PO BEDTIME 15 Days Qty: 15 0RF spironolactone 25 mg tablet 25 mg PO BID 30 Days Qty: 30 0RF levothyroxine 50 mcg tablet 50 mcg PO QAM 30 Days Qty: 30 2RF pantoprazole 40 mg tablet,delayed release (DR/EC) 40 mg PO BID Qty: 60 0RF gabapentin 300 mg capsule 300 mg PO BEDTIME 30 Days Qty: 30 0RF levetiracetam 750 mg tablet 750 mg PO BID 30 Days Qty: 60 0RF oxycodone 30 mg tablet 30 mg PO Q4H PRN (Reason: Pain) 2 Days Qty: 12 0RF Rx Instructions: DIRECTED Ventolin HFA 90 mcg/actuation HFA aerosol inhaler 2 puff INHALATION Q6H PRN (Reason: Shortness Of Breath) 30 Days Qty: 30 0RF Reglan 10 mg tablet 10 mg PO Q6H PRN (Reason: nausea and vomiting) 10 Days Qty: 30 0RF lactulose 10 gram/15 mL solution 90 ml PO TID 30 Days Qty: 8100 0RF Creon 3,000-9,500- 15,000 unit capsule,delayed release(DR/EC) 1 cap PO TID 30 Days Qty: 30 0RF Anoro Ellipta 62.5-25 mcg/actuation blister with device 1 inh INHALATION DAILY 30 Days Qty: 30 0RF potassium chloride 20 mEq tablet extended release 20 meq PO DAILY 15 Days Qty: 15 0RF Changed furosemide 40 mg tablet 40 mg PO DAILY 15 Days Qty: 15 0RF Held insulin glargine [Lantus U-100 Insulin] 100 unit/mL solution See Rx Instructions .ROUTE .COMPLEX Hold Instructions: Resume on 08/26/23. hold till PCP follow up Rx Instructions: INJECT 20 UNITS IN THE MORNING AND 40 UNITS IN THE EVENING. Discharge Orders: Discharge Order (Routine); Ordered 08/19/23 Ordered By: Natalia Talavera Referrals: [facility] [Other] (7 days/week 8am-6pm) [facility] [Outside] (? Follow up as a walk in at [facility], walk in hours are Sunday-Sunday from 7:30AM-3:00PM, first come, first seen. Once you do this assessment you will be referred for appropriate services.) Francisco Mckinley, DO [Primary Care Provider] - 4-7 days (Please call [facility] ([facility]3] to schedule an follow-up appointment within 4 to 7 days. Thank you.) Discharge Diet: Advance as tolerated Discharge Activity: Resume usual activity Patient Instructions: Amoxicillin/Clavulanate Potassium (By mouth), Rifaximin (By mouth), Altered Mental Status (ED), Opioid Safety Discharge Attestations Time Spent in Discharge Care*: greater than 30 min Quality Metrics Clinical Quality Measures [ No reported AMI, CVA or VTE this stay] Coding Level of Care Code Acute Code for Chg Fwd Diagnoses Acute encephalopathy G93.40 Hypokalemia E87.6 Hypomagnesemia E83.42 Enteritis K52.9 Positive urine drug screen R82.5 Leukocytosis D72.829 Transaminitis R74.01
[2023-08-19 14:11] LABS: Estmated Average Glucose 108; Hemoglobin A1C 5.4 % (4.0-6.0)
== END 2023-08-19 13:50 | disposition home or self-care (01) | DRG 71 ==
LOC: ER 07:28 → ICU 11:38 → MEDSURG 08-17 12:00
PROVIDERS: Admitting Provider Internal Medicine; Emergency Provider Family Medicine; PCP Family Medicine; Visit Provider Student in an Organized Health Care Education/Training Program
DX: G93.40 Encephalopathy, unspecified (principal); B19.10 Unspecified viral hepatitis B without hepatic coma; E87.6 Hypokalemia; E83.42 Hypomagnesemia; K52.9 Noninfective gastroenteritis and colitis, unspecified; R82.5 Elevated urine levels of drugs, medicaments and biological substances; D72.829 Elevated white blood cell count, unspecified; R74.01 Elevation of levels of liver transaminase levels; E86.0 Dehydration; Z95.0 Presence of cardiac pacemaker; Z79.4 Long term (current) use of insulin; K44.9 Diaphragmatic hernia without obstruction or gangrene; E11.9 Type 2 diabetes mellitus without complications; I10 Essential (primary) hypertension; Z72.0 Tobacco use; Z91.148 Patient's other noncompliance with medication regimen for other reason; K21.9 Gastro-esophageal reflux disease without esophagitis; G40.909 Epilepsy, unspecified, not intractable, without status epilepticus; E03.9 Hypothyroidism, unspecified; K74.60 Unspecified cirrhosis of liver
CPT/HCPCS: 36415; 36416; 71045; 71275; 74177; 76705; 80053; 80306; 81003; 82140; 82550; 82962; 83036; 83605; 83690; 83735; 84443; 85025; 85610; 87040; 93005; 96365; 96367; 96372; 96375; 96376; 99285; C9113; J0360; J1650; J1815; J2060; J2270; J2405; J2543; J3370; J3475; J3480; J3490; J7030; J7050; Q9967

== ENCOUNTER 2023-08-29 03:52 | Emergency (ER) | payer MEDICAID, SELFPAY ==
[2023-08-29 03:55] VITALS: BP 219/132; PULSE 74; RESP 16; O2SAT 96; BMI 26.0
[2023-08-29 04:08] LABS: Glucose Point of Care 149 mg/dL (70-110)
--- NOTE | 2023-08-29 04:13 | ED_ITS ---
HPI - Abdominal Pain 2 General: Chief Complaint: Abdominal Pain Stated Complaint: ABD Pain\Speech Was Slurred\Vomiting Time Seen by Provider: 08/29/23 03:58 History of Present Illness: Patient presents to the the ER with complaints of abdominal pain. States she said it starts up in the epigastric region and goes down to the lower left quadrant. Been going on for now about 12 hours. Patient does have a history of chronic abdominal pain. Patient is also had lots of nausea and vomiting. She said she had to stop and candy puller [address] here just to vomit. Per chart review patient was just discharged from here on 6 2 for acute encephalopathy. 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 Pain management contract signed Metabolic encephalopathy SSS (sick sinus syndrome) Presence of permanent cardiac pacemaker Seizure disorder Tobacco dependency Hypothyroidism Accidental fentanyl overdose Overdose Cardiac arrest COPD (chronic obstructive pulmonary disease) Chronically on 3 L of oxygen Smoker Thrombocytopenia Bilateral pulmonary embolism Hepatitis B Pulmonary embolism Nicotine dependence, cigarettes, with unspecified nicotine-induced disorders Chronic hepatitis B Chronic abdominal pain Chronic hip pain Leg cramps Stomach cancer Pelvic inflammatory disease Diabetes mellitus Hypertension Encephalopathy Cirrhosis Gastroesophageal reflux GI bleeding Surgical History H/O right hemicolectomy History of right hemicolectomy H/O tubal ligation History of laparotomy History of hysterectomy Family History Mother Diabetes Father CAD (coronary artery disease) Other Cancer Social History Smoking and tobacco/nicotine status: former use of tobacco/nicotine Quit status (tobacco/nicotine): has quit using Year quit tobacco: 2020 Former quit date comment: 2ppd x 26 year Hx Alcohol intake: never Substance/Drug Use: never Physical Exam 2 Const: COMMON NORMALS: no acute distress, average body habitus, no limitations, healthy appearing, alert and well nourished HENMT: COMMON NORMALS: normocephalic, atraumatic, hearing grossly normal bilaterally, external ears normal, Normal external nose present and moist oral mucous membranes HEAD & SCALP: normocephalic and atraumatic NOSE: Normal external nose present EXTERNAL EAR: Yes external ears normal Eye: COMMON NORMALS: Equal, round and reactive pupils present, EOMs intact bilaterally, conjunctivae normal and no scleral icterus CONJUNCTIVA: Yes conjunctivae normal PUPIL: Yes Equal, round and reactive pupils present Neck/C-Spine: COMMON NORMALS: full ROM, no lymphadenopathy, supple, no meningeal signs, no JVD and Thyroid normal THYROID: Thyroid normal Chest: COMMONS NORMALS: normal inspection of the chest and normal palpation of entire chest wall Resp: COMMON NORMALS: normal respiratory effort, No retractions, No use of accessory muscles and clear to auscultation bilaterally AUSCULTATION: clear to auscultation bilaterally Cardio: COMMON NORMALS: no JVD, regular rate, regular rhythm, S1 normal heart sound present, S2 normal heart sound present, No gallops present (Cardio), No clicks present (Cardio), No murmurs present (Cardio) and No rub (Cardio) R ATE: regular rate RHYTHM: regular rhythm HEART SOUNDS: S1 normal heart sound present and S2 normal heart sound present GI: COMMON NORMALS: Normal to inspection, nondistended, normoactive bowel sounds present, Soft to palpation, No hepatosplenomegaly present and no masses; negative for non-tender (Generalized tender to palpate over entire abdomen but epigastric regions th) PALPATION: Yes Soft to palpation and Yes No hepatosplenomegaly present Neuro: SENSORIUM/ORIENTATION: Yes alert MENINGEAL SIGNS: Yes no meningeal signs Course 2 Vital Signs: Vital signs: Vital Signs Pulse Rate 103 H 08/29/23 05:53 Respiratory Rate 13 08/29/23 05:53 Blood Pressure 123/99 08/29/23 05:53 Pulse Oximetry 95 08/29/23 05:53 Oxygen Delivery Me thod Room Air 08/29/23 05:53 MDM - Abdominal Pain Medical Decision Making Lab work was obtained including urine urine drug screen. Lab work showed potassium 3.1, magnesium 1.5, otherwise lab workup was essentially benign. Patient was given Toradol, Zofran, Reglan, morphine which helped her nausea and pain. Patient was given oral potassium and magnesium and kept them down without any problem. Patient be referred back to her primary care doc for further evaluation and treatment. Differential Diagnosis Likely abdominal pain Medical Records I reviewed the patient's medical records. Lab Data I reviewed the patient's lab results. 08/29/23 04:26 08/29/23 04:26 Labs/Radiology: Laboratory Results WBC 7.08 10^3/uL (3.29-11.43) 08/29/23 04:26 RBC 4.68 10^6/uL (3.85-5.65) 08/29/23 04:26 Hgb 14.20 g/dL (11.27-16.99) 08/29/23 04:26 Hct 41.4 % (36-47) 08/29/23 04:26 MCV 88.5 fl (85-98) 08/29/23 04:26 MCH 30.3 pg (27-33) 08/29/23 04:26 MCHC 34.3 g/dL (30-55) 08/29/23 04:26 RDW 12.9 % (12.1-15.1) 08/29/23 04:26 Plt Count 171 10^3/cmm (157-399) 08/29/23 04:26 MPV 10.7 fL (7.4-10.4) H 08/29/23 04:26 Neut % (Auto) 75.7 % 08/29/23 04:26 Lymph % (Auto) 17.5 % 08/29/23 04:26 [place] % (Auto) 5.5 % 08/29/23 04:26 Eos % (Auto) 0.3 % 08/29/23 04:26 Baso % (Auto) 0.7 % 08/29/23 04:26 Neut # (Auto) 5.36 10^3/uL (1.8-7.7) 08/29/23 04:26 Lymph # (Auto) 1.2 10^3/uL (0.8-4.8) 08/29/23 04:26 [place] # (Auto) 0.4 10^3/uL (0.2-0.9) 08/29/23 04:26 Eos # (Auto) 0.0 10^3/uL (0.0-0.8) 08/29/23 04:26 Baso # (Auto) 0.1 10^3/uL (0.0-0.1) 08/29/23 04:26 Nucleated RBC % (auto) 0 % 08/29/23 04:26 Nucleated RBCs # 0.0 /100WBC 08/29/23 04:26 Sodium 141 mmol/L (136-145) 08/29/23 04:26 Potassium 3.1 mmol/L (3.5-5.1) L 08/29/23 04:26 Chloride 102 mmol/L (98-107) 08/29/23 04:26 Carbon Dioxide 25 mmol/L (22-29) 08/29/23 04:26 Anion Gap 17.1 (5-19) 08/29/23 04:26 BUN 8 mg/dL (6-20) 08/29/23 04:26 Creatinine 0.5 mg/dL (0.5-0.9) 08/29/23 04:26 GFR Calculation 131.7 mL/min (90-130) H 08/29/23 04:26 Glucose 138 mg/dL (65-115) H 08/29/23 04:26 POC Glucose 149 mg/dL (70-110) H 08/29/23 04:05 Calculated Osmolality 293 mOsm/kg (285-295) 08/29/23 04:26 Calcium 9.2 mg/dL (8.5-10.5) 08/29/23 04:26 Magnesium 1.5 mg/dL (1.7-2.3) L 08/29/23 04:26 Total Bilirubin 0.8 mg/dL (0.15-1.2) 08/29/23 04:26 AST 28 U/L (0-32) 08/29/23 04:26 ALT 14 U/L (0-33) 08/29/23 04:26 Alkaline Phosphatase 109 U/L (35-105) H 08/29/23 04:26 Ammonia 49 umol/L (11-51) 08/29/23 04:26 Total Protein 7.7 g/dL (6.6-8.7) 08/29/23 04:26 Albumin 3.5 g/dL (3.5-5.2) 08/29/23 04:26 Globulin 4.2 g/dL (1.3-4.6) 08/29/23 04:26 Lipase 19 U/L (13-60) 08/29/23 04:26 Urine Color Yellow (Yellow) 08/29/23 05:18 Urine Appearance Slightly cloudy (CLEAR) 08/29/23 05:18 Urine pH 7 (5-7) 08/29/23 05:18 Ur Specific [place] 1.025 (1.005-1.030) 08/29/23 05:18 Urine Protein Neg (Negative) 08/29/23 05:18 Urine Glucose (UA) Norm (Normal) 08/29/23 05:18 Urine Ketones Negative (Negative) 08/29/23 05:18 Urine Blood Neg (Negative) 08/29/23 05:18 Urine Nitrate Negative (Negative) 08/29/23 05:18 Urine Bilirubin Neg (Negative) 08/29/23 05:18 Urine Urobilinogen 1 mg/dL (Negative) H 08/29/23 05:18 Ur Leukocyte Esterase 1+ (Negative) H 08/29/23 05:18 Urine RBC None /hpf (0-2) 08/29/23 05:18 Urine WBC 5-10 /hpf (0-5) H 08/29/23 05:18 Ur Squamous Epith Cells 10-15 /hpf (0-5) H 08/29/23 05:18 Amorphous Sediment Trace /hpf 08/29/23 05:18 Urine Bacteria Trace /hpf (NONE) 08/29/23 05:18 Coarse Granular Casts Rare /lpf 08/29/23 05:18 Urine Mucus Trace /hpf 08/29/23 05:18 Urine Opiates Screen Negative ng/mL (Negative) 08/29/23 05:18 Ur Barbiturates Screen Negative ng/mL (Negative) 08/29/23 05:18 Ur Phencyclidine Scrn Negative ng/mL (Negative) 08/29/23 05:18 Ur Amphetamines Screen Negative ng/mL (Negative) 08/29/23 05:18 U Benzodiazepines Scrn Negative ng/mL (Negative) 08/29/23 05:18 Urine Cocaine Screen Negative ng/mL (Negative) 08/29/23 05:18 U Marijuana (THC) Screen Negative ng/mL (Negative) 08/29/23 05:18 All radiology interpretation(s) finalized by discharge EKG Data EKG 1: I personally reviewed and interpreted this EKG as follows: EKG interpretation date: 08/29/23 EKG interpretation time: 04:01 Interpretation: Ventricular rate 73 beats minute, QRS duration 103, QTc of 448, Discharge Plan Discharge Patient Disposition: Home Clinical Impression: Hypokalemia, Hypomagnesemia Abdominal pain Qualifiers: Abdominal location: generalized Qualified Code(s): R10.84 - Generalized abdominal pain Condition: Stable Prescriptions: No Action levalbuterol tartrate [Xopenex HFA] 45 mcg/actuation HFA aerosol inhaler 2 inh inhalation Q6H Qty: 15 6RF zinc sulfate 50 mg zinc (220 mg) capsule 50 mg PO DAILY insulin glargine [Lantus U-100 Insulin] 100 unit/mL solution See Rx Instructions .ROUTE .COMPLEX Hold Instructions: Resume on 08/26/23. hold till PCP follow up Rx Instructions: INJECT 20 UNITS IN THE MORNING AND 40 UNITS IN THE EVENING. scopolamine base 1 mg over 3 days patch 3 day 1 patch topical Q3D tenofovir disoproxil fumarate 300 mg tablet 300 mg PO DAILY rifaximin 550 mg tablet 550 mg PO BID 30 Days Qty: 60 0RF nifedipine 30 mg tablet extended release 24hr 30 mg PO DAILY 30 Days Qty: 30 0RF furosemide 40 mg tablet 40 mg PO DAILY 15 Days Qty: 15 0RF lamotrigine 200 mg tablet 200 mg PO DAILY 30 Days Qty: 30 0RF tizanidine 4 mg tablet 4 mg PO Q6H PRN (Reason: Spasms) 10 Days Qty: 30 0RF sumatriptan succinate 50 mg tablet See Rx Instructions .ROUTE .COMPLEX 10 Days Qty: 10 0RF Rx Instructions: MAY REPEAT IN TWO HOURS, MAX OF 200MG IN 24 HOURS amitriptyline 50 mg tablet 50 mg PO BEDTIME 15 Days Qty: 15 0RF spironolactone 25 mg tablet 25 mg PO BID 30 Days Qty: 30 0RF levothyroxine 50 mcg tablet 50 mcg PO QAM 30 Days Qty: 30 2RF pantoprazole 40 mg tablet,delayed release (DR/EC) 40 mg PO BID Qty: 60 0RF gabapentin 300 mg capsule 300 mg PO BEDTIME 30 Days Qty: 30 0RF levetiracetam 750 mg tablet 750 mg PO BID 30 Days Qty: 60 0RF oxycodone 30 mg tablet 30 mg PO Q4H PRN (Reason: Pain) 2 Days Qty: 12 0RF Rx Instructions: DIRECTED Reglan 10 mg tablet 10 mg PO Q6H PRN (Reason: nausea and vomiting) 10 Days Qty: 30 0RF lactulose 10 gram/15 mL solution 90 ml PO TID 30 Days Qty: 8100 0RF Creon 3,000-9,500- 15,000 unit capsule,delayed release(DR/EC) 1 cap PO TID 30 Days Qty: 30 0RF Anoro Ellipta 62.5-25 mcg/actuation blister with device 1 inh INHALATION DAILY 30 Days Qty: 30 0RF potassium chloride 20 mEq tablet extended release 20 meq PO DAILY 15 Days Qty: 15 0RF Discharge Orders: Discharge ED (Routine); Ordered 08/29/23 Ordered By: Daniel Aden Referrals: Francisco Mckinley DO [Primary Care Provider] - 1 week Patient Instructions: Hypokalemia (ED), Abdominal Pain (ED), Hypomagnesemia (ED) Activity Restrictions/Additional Instructions: Your evaluation in ER did not show any acute cause of your abdominal pain. It showed your potassium and magnesium were both a little bit low. These were placed in the ER. Please continue taking all of your medicines as directed. Please follow-up with your family practice physician by calling their office first thing this morning to get an appointment for your recurrent chronic abdominal pain. Coding Level of Care Code ED Agriculture Worker for 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
[2023-08-29 04:33] LABS: Basophils # 0.1 10^3/uL (0.0-0.1); Basophils % 0.7 %; Eosinophils % 0.3 %; Hematocrit 41.4 % (36-47); Lymphocytes # 1.2 10^3/uL (0.8-4.8); Lymphocytes % 17.5 %; Mean Corpuscular HGB Conc 34.3 g/dL (30-55); Mean Corpuscular Hemoglobin 30.3 pg (27-33); Mean Corpuscular Volume 88.5 fl (85-98); Mean Platelet Volume 10.7 fL (7.4-10.4); Monocytes # 0.4 10^3/uL (0.2-0.9); Monocytes % 5.5 %; Neutrophils # 5.36 10^3/uL (1.8-7.7); Neutrophils % 75.7 %; Nucleated Red Blood Cells % 0 %; Platelet Count 171 10^3/cmm (157-399); Red Blood Count 4.68 10^6/uL (3.85-5.65); Red Cell Distribution Width 12.9 % (12.1-15.1); White Blood Count 7.08 10^3/uL (3.29-11.43)
[2023-08-29] MEDS: hyDRALAzine 20 mg/mL INJ 1 mL IVP (04:41)
[2023-08-29] MEDS: ondansetron 2 mg/ML SDV 2 mL 4 MG IVP (04:41)
[2023-08-29] MEDS: ketorolac 30 mg/mL INJ IVP (04:41)
[2023-08-29 04:47] VITALS: BP 220/147; PULSE 86; RESP 10; O2SAT 92
[2023-08-29 04:50] LABS: Ammonia 49 umol/L (11-51)
[2023-08-29 04:51] LABS: Alanine Aminotransferase 14 U/L (0-33); Albumin Level 3.5 g/dL (3.5-5.2); Alkaline Phosphatase 109 U/L (35-105); Anion Gap 17.1 (5-19); Aspartate Amino Transferase 28 U/L (0-32); Blood Urea Nitrogen 8 mg/dL (6-20); Calcium 9.2 mg/dL (8.5-10.5); Carbon Dioxide 25 mmol/L (22-29); Chloride 102 mmol/L (98-107); Creatinine Clr Calc Pharmacy 170.9452; Globulin 4.2 g/dL (1.3-4.6); Glomerular Filtration Rate 131.7 mL/min (90-130); Glucose 138 mg/dL (65-115); Lipase 19 U/L (13-60); Magnesium 1.5 mg/dL (1.7-2.3); Osmolality Calculated 293 mOsm/kg (285-295); Potassium 3.1 mmol/L (3.5-5.1); Sodium 141 mmol/L (136-145); Total Bilirubin 0.8 mg/dL (0.15-1.2); Total Protein 7.7 g/dL (6.6-8.7)
[2023-08-29] MEDS: metoclopramide 5 mg/mL SDV 2 mL 10 MG IVP (05:08)
[2023-08-29 05:22] VITALS: BP 151/93; PULSE 88; RESP 14; O2SAT 96
[2023-08-29 05:33] LABS: Amphetamines Screen Urine Negative (Negative); Barbiturates Screen Urine Negative (Negative); Benzodiazepines Screen Urine Negative (Negative); Cocaine Screen Urine Negative (Negative); Opiate Screen Urine Negative (Negative); PCP Screen Urine Negative (Negative); THC Screen Urine Negative (Negative)
[2023-08-29 05:34] VITALS: RESP 25
[2023-08-29] MEDS: potassium chloride ER 20 mEq Tablet 40 MEQ PO (05:34)
[2023-08-29] MEDS: magnesium oxide 400 mg tablet PO (05:34)
[2023-08-29] MEDS: sodium chloride 0.9% 1,000 ML 999 ML IV (05:34)
[2023-08-29] MEDS: morphine 4 mg/mL SDV 1 mL IVP (05:34)
[2023-08-29 05:39] LABS: Add Urine Microscopic? YES; Bilirubin Urine Neg (Negative); Blood Urine Neg (Negative); Glucose Urine UA Norm (Normal); Ketones Urine Negative (Negative); Leukocyte Esterase Urine 1+ (Negative); Nitrate Urine Negative (Negative); Protein Urine Neg (Negative); Specific Gravity, Urine 1.025 (1.005-1.030); Urine Appearance Slightly Cloudy (CLEAR); Urine Color Yellow (Yellow); Urobilinogen Urine 1 mg/dL (Negative); pH Urine 7 (5-7)
[2023-08-29 05:40] LABS: Amorphous Sediment Urine TRACE /hpf; Bacteria Urine TRACE /hpf; Coarse Granular Casts Urine RARE /lpf; Mucus Urine TRACE /hpf
[2023-08-29 05:41] LABS: Add Urine Culture? No
[2023-08-29 05:53] VITALS: BP 123/99; PULSE 103; RESP 13; O2SAT 95
== END 2023-08-29 06:02 | disposition home or self-care (01) ==
PROVIDERS: Emergency Provider Emergency Medicine; PCP Family Medicine
DX: R10.84 Generalized abdominal pain (principal); E87.6 Hypokalemia; E83.42 Hypomagnesemia; Z79.4 Long term (current) use of insulin; Z87.891 Personal history of nicotine dependence; Z95.0 Presence of cardiac pacemaker; J44.9 Chronic obstructive pulmonary disease, unspecified; Z99.81 Dependence on supplemental oxygen; Z86.19 Personal history of other infectious and parasitic diseases; E11.9 Type 2 diabetes mellitus without complications; I10 Essential (primary) hypertension
CPT/HCPCS: 36416; 80053; 80306; 81001; 82140; 82962; 83690; 83735; 85025; 96374; 96375; 99284; J0360; J1885; J2270; J2405; J2765; J7030

== ENCOUNTER 2023-09-06 19:15 | Emergency (ER) | payer MEDICAID, SELFPAY ==
[2023-09-06 19:30] VITALS: BP 188/118; PULSE 105; RESP 20; TEMP 37.3; O2SAT 96
[2023-09-06 20:41] LABS: Basophils % 0.7 %; Eosinophils # 0.2 10^3/uL (0.0-0.8); Eosinophils % 3.4 %; Hematocrit 37.7 % (36-47); Lymphocytes # 1.8 10^3/uL (0.8-4.8); Mean Corpuscular HGB Conc 33.2 g/dL (30-55); Mean Corpuscular Hemoglobin 30.3 pg (27-33); Mean Corpuscular Volume 91.5 fl (85-98); Monocytes # 0.9 10^3/uL (0.2-0.9); Monocytes % 15.5 %; Neutrophils # 2.72 10^3/uL (1.8-7.7); Nucleated Red Blood Cells % 0 %; Platelet Count 145 10^3/cmm (157-399); Red Blood Count 4.12 10^6/uL (3.85-5.65); Red Cell Distribution Width 13.4 % (12.1-15.1); White Blood Count 5.66 10^3/uL (3.29-11.43)
[2023-09-06 20:45] VITALS: BP 158/98; PULSE 101; RESP 16; O2SAT 95
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
[2023-09-06 21:00] VITALS: BP 156/97; PULSE 101; RESP 16; O2SAT 94
[2023-09-06 21:01] LABS: Alanine Aminotransferase 17 U/L (0-33); Albumin Level 3.4 g/dL (3.5-5.2); Alkaline Phosphatase 103 U/L (35-105); Aspartate Amino Transferase 36 U/L (0-32); Blood Urea Nitrogen 10 mg/dL (6-20); Calcium 8.3 mg/dL (8.5-10.5); Carbon Dioxide 25 mmol/L (22-29); Chloride 101 mmol/L (98-107); Creatinine Clr Calc Pharmacy 174.0975; Glomerular Filtration Rate 131.7 mL/min (90-130); Glucose 161 mg/dL (65-115); Lipase 20 U/L (13-60); Total Bilirubin 0.6 mg/dL (0.15-1.2); Total Protein 7.4 g/dL (6.6-8.7)
[2023-09-06] MEDS: lactulose oral liq 20 gm/30 mL UDC 30 GM PO (21:04)
[2023-09-06] MEDS: FUROsemide 40 mg Tablet PO (21:05)
[2023-09-06] MEDS: levETIRAcetam 500 mg Tablet 750 MG PO (21:05)
[2023-09-06 21:06] VITALS: RESP 16
[2023-09-06] MEDS: oxyCODONE 5 mg IR Tab/Cap 10 MG PO (21:06)
[2023-09-06] MEDS: spironolactone 25 mg Tablet PO (21:06)
[2023-09-06 21:09] LABS: Anion Gap 18.1 (5-19); Osmolality Calculated 295 mOsm/kg (285-295); Potassium 3.1 mmol/L (3.5-5.1); Sodium 141 mmol/L (136-145)
--- NOTE | 2023-09-06 22:02 | PC.NURSE ---
CALL PLACED TO GAVIN TAVAREZ TO DISCUSS SOCIAL SERVICE PLACEMENT OF PT. GAVIN SPOKE WITH CLAY MACHINE OPERATOR TODAY. GAVIN REPORTS SHE HAS PLACEMENT FOR PT BUT THEY CANNOT PICK HER UP UNTIL TOMORROW. GAVIN REPORTS [facility] CLAY MACHINE OPERATOR HAS AGREED TO LET PT REMAIN IN WAITING ROOM UNTIL SHE IS PICKED UP. PT IS AWARE OF CONVERSATION.
== END 2023-09-06 22:20 | disposition home or self-care (01) ==
PROVIDERS: Emergency Medicine; Emergency Provider Emergency Medicine; PCP Family Medicine
DX: Z76.0 Encounter for issue of repeat prescription (principal); Z91.148 Patient's other noncompliance with medication regimen for other reason; Z79.4 Long term (current) use of insulin; Z87.891 Personal history of nicotine dependence; Z95.0 Presence of cardiac pacemaker; J44.9 Chronic obstructive pulmonary disease, unspecified; Z86.19 Personal history of other infectious and parasitic diseases; Z85.028 Personal history of other malignant neoplasm of stomach; E11.9 Type 2 diabetes mellitus without complications; I10 Essential (primary) hypertension; Z99.81 Dependence on supplemental oxygen
CPT/HCPCS: 36415; 80053; 83690; 85025; 99283

== ENCOUNTER 2023-09-23 13:42 | Emergency (ER) | payer MEDICAID, SELFPAY ==
[2023-09-23 14:28] LABS: Basophils % 0.3 %; Eosinophils % 0.1 %; Hematocrit 42.4 % (36-47); Lymphocytes # 0.4 10^3/uL (0.8-4.8); Lymphocytes % 2.7 %; Mean Corpuscular HGB Conc 34.9 g/dL (30-55); Mean Corpuscular Hemoglobin 30.6 pg (27-33); Mean Corpuscular Volume 87.8 fl (85-98); Mean Platelet Volume 10.2 fL (7.4-10.4); Monocytes # 0.6 10^3/uL (0.2-0.9); Monocytes % 4.6 %; Neutrophils # 12.69 10^3/uL (1.8-7.7); Neutrophils % 91.7 %; Nucleated Red Blood Cells % 0 %; Platelet Count 141 10^3/cmm (157-399); Red Blood Count 4.83 10^6/uL (3.85-5.65); Red Cell Distribution Width 13.2 % (12.1-15.1); White Blood Count 13.85 10^3/uL (3.29-11.43)
[2023-09-23 14:37] VITALS: PULSE 128; RESP 18; TEMP 36.4; O2SAT 94
[2023-09-23 14:51] LABS: Alanine Aminotransferase 18 U/L (0-33); Albumin Level 3.5 g/dL (3.5-5.2); Alkaline Phosphatase 133 U/L (35-105); Aspartate Amino Transferase 36 U/L (0-32); Blood Urea Nitrogen 7 mg/dL (6-20); Calcium 8.8 mg/dL (8.5-10.5); Carbon Dioxide 21 mmol/L (22-29); Chloride 103 mmol/L (98-107); Creatinine Clr Calc Pharmacy 123.0037; Globulin 4.9 g/dL (1.3-4.6); Glomerular Filtration Rate 88.9 mL/min (90-130); Glucose 104 mg/dL (65-115); Lipase 14 U/L (13-60); Osmolality Calculated 284 mOsm/kg (285-295); Sodium 138 mmol/L (136-145); Total Protein 8.4 g/dL (6.6-8.7)
--- NOTE | 2023-09-23 15:04 | CTR_ITS ---
PROCEDURE INFORMATION: Exam: CT Abdomen And Pelvis With Contrast Exam date and time: 09/23/2023 3:30 PM Age: 48 years old Clinical indication: Abdominal pain; Localized; Right lower quadrant (rlq); Prior surgery; Surgery date: 6+ months; Surgery type: Right hemicolectomy, hysterectomy; Additional info: Rlq abdominal pain TECHNIQUE: Imaging protocol: Computed tomography of the abdomen and pelvis with contrast. Radiation optimization: All CT scans at this facility use at least one of these dose optimization techniques: automated exposure control; mA and/or kV adjustment per patient size (includes targeted exams where dose is matched to clinical indication); or iterative reconstruction. Contrast material: OMNI 350; Contrast volume: 100 ml; Contrast route: INTRAVENOUS (IV); COMPARISON: CT angio chest w abd pel w con 08/16/2023 8:40 AM RADIATION DOSE METRICS: Total DLP (mGy-cm): 880.56 FINDINGS: Lungs: Minimal chronic changes in lingula. Small calcified granuloma in right lower chest. Liver: No significant focal lesion. Nodular margins, cirrhotic changes again seen. Dilated portal vein noted. Gallbladder and biliary ducts: No calcified gallstones. Dilated common bile duct measuring 15 mm is similar to previous study. Pancreas: Normal. No ductal dilation. Spleen: Minimally enlarged spleen measuring 15 cm in craniocaudal dimension is similar to previous study. Adrenal glands: Normal. Kidneys and ureters: Minimal striated nephrogram, less prominent compared to previous study. 8 mm cystic lesion upper pole of right kidney again noted. 5 mm cystic lesion in left kidney lower pole medially also noted. These are too small to characterize. Stomach and bowel: Postop changes of right hemicolectomy again noted. No obstruction. No acute inflammation. Appendix: No evidence of appendicitis. Intraperitoneal space: Unremarkable. No free air. No significant fluid collection. Vasculature: No abdominal aortic aneurysm. Multiple varices in left abdomen and retroperitoneum again seen. Lymph nodes: No enlarged lymph nodes. Urinary bladder: Empty urinary bladder. Reproductive: Uterus is not identified. Bones/joints: No acute fracture. Stable minimal spondylotic changes of the spine. Soft tissues: Small periumbilical hernia containing fat. No bowel herniation. CT/CT abdomen pelvis w con* [id number] IMPRESSION: 1. No acute findings. 2. Cirrhosis with portal hypertension. No significant ascites. Dilated common bile duct, similar to previous study. COMMENTS: Consistent with the [employer]'s Incidental Findings Committee white paper (J Am Diego Radiol 2018): Any incidental renal lesion less than 1 cm or classified as too small to characterize, or any incidental cystic renal lesion characterized as simple-appearing, is likely benign. No follow-up imaging is recommended for these lesions per consensus recommendations based on imaging criteria.
[2023-09-23] MEDS: iohexol 350 mg/mL 500 mL Btl (per mL) IV (15:38)
--- NOTE | 2023-09-23 16:18 | W.ED.ABDPA2 ---
HPI - Abdominal Pain General: Chief Complaint: Abdominal Pain Stated Complaint: abd pain, N/V Time Seen by Provider: 09/23/23 15:03 History of Present Illness: 48-year-old female with a history of pulmonary embolism, diabetes, obesity, hypertension, GERD and chronic pain syndrome on oxycodone who presents to the emergency room with abdominal pain. Says it has been going on for few days now. She says she took 30 mg of oxycodone that did not help. She says she feels like there is just something wrong with her abdomen. Chest pain was initially in her right lower quadrant and moved to her left side. She has had some nausea and vomiting. She says it is a very sharp pain. Review of Systems Narrative: Constitutional symptoms: Negative except as documented in HPI. Skin symptoms: Negative except as documented in HPI. Eye symptoms: Negative except as documented in HPI. ENMT symptoms: Negative except as documented in HPI. Respiratory symptoms: Negative except as documented in HPI. Cardiovascular symptoms: Negative except as documented in HPI. Gastrointestinal symptoms: Negative except as documented in HPI. Genitourinary symptoms: Negative except as documented in HPI. Musculoskeletal symptoms: Negative except as documented in HPI. Neurologic symptoms: Negative except as documented in HPI. Psychiatric symptoms: Negative except as documented in HPI. Endocrine symptoms: Negative except as documented in HPI. PFS ED PFSH: Medical History Hypokalemia nursing home (current) use of opiate analgesic Pain management contract signed Metabolic encephalopathy SSS (sick sinus syndrome) Presence of permanent cardiac pacemaker Seizure disorder Tobacco dependency Hypothyroidism Accidental fentanyl overdose Overdose Cardiac arrest COPD (chronic obstructive pulmonary disease) Chronically on 3 L of oxygen Smoker Thrombocytopenia Bilateral pulmonary embolism Hepatitis B Pulmonary embolism Nicotine dependence, cigarettes, with unspecified nicotine-induced disorders Chronic hepatitis B Chronic abdominal pain Chronic hip pain Leg cramps Stomach cancer Pelvic inflammatory disease Diabetes mellitus Hypertension Encephalopathy Cirrhosis Gastroesophageal reflux GI bleeding Surgical History H/O right hemicolectomy History of right hemicolectomy H/O tubal ligation History of laparotomy History of hysterectomy Family History Mother Diabetes Father CAD (coronary artery disease) Other Cancer Social History Smoking and tobacco/nicotine status: former use of tobacco/nicotine Quit status (tobacco/nicotine): has quit using Year quit tobacco: 2020 Former quit date comment: 2ppd x 26 year Hx Alcohol intake: never Substance/Drug Use: never Physical Exam Narrative: EXAM NARRATIVE: General: Alert, no acute distress. Skin: Warm, dry. Head: Normocephalic, atraumatic. Neck: Supple, trachea midline. Eye: Extraocular movements are intact. Ears, nose, mouth and throat: mucosa moist. Cardiovascular: Regular, tachycardic, normal peripheral perfusion. Respiratory: Lungs are clear to auscultation, respirations are non-labored, breath sounds are equal, Symmetrical chest wall expansion. Gastrointestinal: Soft, left-sided abdominal tenderness, Non distended Musculoskeletal: Normal ROM, no deformity. Neurological: Alert and oriented, No focal neurological deficit observed. Psychiatric: Cooperative, appropriate mood & affect. Course Vital Signs: Vital signs: Vital Signs Temperature 97.5 F L 09/23/23 14:37 Pulse Rate 128 H 09/23/23 14:37 Respiratory Rate 18 09/23/23 14:37 Pulse Oximetry 94 09/23/23 14:37 Oxygen Delivery Me thod Room Air 09/23/23 14:37 MDM - Abdominal Pain Medical Decision Making Medical decision making: Differential diagnosis including but not limited to and based on the above HPI, review of systems and physical exam: Rule out diverticulitis colitis, small bowel obstruction, urinary tract infection, kidney stones Orders placed to evaluate differential diagnosis based on the above differential, HPI and physical exam Lab Review: Laboratory results were reviewed and interpreted by myself the emergency room physician. Mild leukocytosis with a white count of 13. Mild hypokalemia at 3. BUN and creatinine are 7 and 0.7. Urinalysis is clear. CT of the abdomen pelvis with contrast: Patient has stable cirrhosis and some portal hypertension but no ascites. Bile duct is slightly elevated similar to previous study. Pain is not consistent with issues there. No other acute findings. This was reviewed and interpreted by myself the emergency room physician. I also reviewed the radiology report. I reviewed the patient's medical record. Reexamination: Patient remained stable. She still complaining of pain. No increased work of breathing. No altered mental status. Assessment and plan: Abdominal pain -Pepcid and Zofran in the emergency room - Discharged home - Discussed findings and plan with patient. Answered any questions. - All laboratory values were reviewed and interpreted personally by myself, the ER physician - All imaging was reviewed and interpreted personally by myself, the ER physician. - Evaluation and treatment of this problem were appropriate in the emergency setting Lab Data 09/23/23 14:24 09/23/23 14:24 Labs/Radiology: Radiology Impressions Abdomen/Pelvis CT 09/23/23 15:04 IMPRESSION: 1. No acute findings. 2. Cirrhosis with portal hypertension. No significant ascites. Dilated common bile duct, similar to previous study. COMMENTS: Consistent with the [employer]'s Incidental Findings Committee white paper (J Am Diego Radiol 2018): Any incidental renal lesion less than 1 cm or classified as too small to characterize, or any incidental cystic renal lesion characterized as simple-appearing, is likely benign. No follow-up imaging is recommended for these lesions per consensus recommendations based on imaging criteria. Laboratory Results WBC 13.85 10^3/uL (3.29-11.43) H 09/23/23 14:24 RBC 4.83 10^6/uL (3.85-5.65) 09/23/23 14:24 Hgb 14.80 g/dL (11.27-16.99) 09/23/23 14:24 Hct 42.4 % (36-47) 09/23/23 14:24 MCV 87.8 fl (85-98) 09/23/23 14:24 MCH 30.6 pg (27-33) 09/23/23 14:24 MCHC 34.9 g/dL (30-55) 09/23/23 14:24 RDW 13.2 % (12.1-15.1) 09/23/23 14:24 Plt Count 141 10^3/cmm (157-399) L 09/23/23 14:24 MPV 10.2 fL (7.4-10.4) 09/23/23 14:24 Neut % (Auto) 91.7 % 09/23/23 14:24 Lymph % (Auto) 2.7 % 09/23/23 14:24 [place] % (Auto) 4.6 % 09/23/23 14:24 Eos % (Auto) 0.1 % 09/23/23 14:24 Baso % (Auto) 0.3 % 09/23/23 14:24 Neut # (Auto) 12.69 10^3/uL (1.8-7.7) H 09/23/23 14:24 Lymph # (Auto) 0.4 10^3/uL (0.8-4.8) L 09/23/23 14:24 [place] # (Auto) 0.6 10^3/uL (0.2-0.9) 09/23/23 14:24 Eos # (Auto) 0.0 10^3/uL (0.0-0.8) 09/23/23 14:24 Baso # (Auto) 0.0 10^3/uL (0.0-0.1) 09/23/23 14:24 Nucleated RBC % (auto) 0 % 09/23/23 14:24 Nucleated RBCs # 0.0 /100WBC 09/23/23 14:24 Sodium 138 mmol/L (136-145) 09/23/23 14:24 Potassium 3.0 mmol/L (3.5-5.1) L 09/23/23 14:24 Chloride 103 mmol/L (98-107) 09/23/23 14:24 Carbon Dioxide 21 mmol/L (22-29) L 09/23/23 14:24 Anion Gap 17.0 (5-19) 09/23/23 14:24 BUN 7 mg/dL (6-20) 09/23/23 14:24 Creatinine 0.7 mg/dL (0.5-0.9) 09/23/23 14:24 GFR Calculation 88.9 mL/min (90-130) L 09/23/23 14:24 Glucose 104 mg/dL (65-115) 09/23/23 14:24 Calculated Osmolality 284 mOsm/kg (285-295) L 09/23/23 14:24 Calcium 8.8 mg/dL (8.5-10.5) 09/23/23 14:24 Total Bilirubin 1.0 mg/dL (0.15-1.2) 09/23/23 14:24 AST 36 U/L (0-32) H 09/23/23 14:24 ALT 18 U/L (0-33) 09/23/23 14:24 Alkaline Phosphatase 133 U/L (35-105) H 09/23/23 14:24 Total Protein 8.4 g/dL (6.6-8.7) 09/23/23 14:24 Albumin 3.5 g/dL (3.5-5.2) 09/23/23 14:24 Globulin 4.9 g/dL (1.3-4.6) H 09/23/23 14:24 Lipase 14 U/L (13-60) 09/23/23 14:24 Urine Color Yellow (Yellow) 09/23/23 16:31 Urine Appearance Clear (CLEAR) 09/23/23 16:31 Urine pH 8 (5-7) H 09/23/23 16:31 Ur Specific [place] 1.010 (1.005-1.030) 09/23/23 16:31 Urine Protein 1+ (Negative) H 09/23/23 16:31 Urine Glucose (UA) Norm (Normal) 09/23/23 16:31 Urine Ketones Negative (Negative) 09/23/23 16:31 Urine Blood Neg (Negative) 09/23/23 16:31 Urine Nitrate Negative (Negative) 09/23/23 16:31 Urine Bilirubin Neg (Negative) 09/23/23 16:31 Urine Urobilinogen 4 mg/dL (Negative) H 09/23/23 16:31 Ur Leukocyte Esterase Negative (Negative) 09/23/23 16:31 Urine RBC None /hpf (0-2) 09/23/23 16:31 Urine WBC 0-4 /hpf (0-5) H 09/23/23 16:31 Ur Squamous Epith Cells 0-4 /hpf (0-5) H 09/23/23 16:31 Amorphous Sediment Not Reportable 09/23/23 16:31 Urine Bacteria Trace /hpf (NONE) 09/23/23 16:31 All radiology interpretation(s) finalized by discharge Discharge Plan Discharge Patient Disposition: Home Clinical Impression: Abdominal pain Condition: Stable Prescriptions: No Action levalbuterol tartrate [Xopenex HFA] 45 mcg/actuation HFA aerosol inhaler 2 inh inhalation Q6H Qty: 15 6RF zinc sulfate 50 mg zinc (220 mg) capsule 50 mg PO DAILY insulin glargine [Lantus U-100 Insulin] 100 unit/mL solution See Rx Instructions .ROUTE .COMPLEX Hold Instructions: Resume on 08/26/23. hold till PCP follow up Rx Instructions: INJECT 20 UNITS IN THE MORNING AND 40 UNITS IN THE EVENING. scopolamine base 1 mg over 3 days patch 3 day 1 patch topical Q3D tenofovir disoproxil fumarate 300 mg tablet 300 mg PO DAILY nifedipine 30 mg tablet extended release 24hr 30 mg PO DAILY 30 Days Qty: 30 0RF furosemide 40 mg tablet 40 mg PO DAILY 15 Days Qty: 15 0RF lamotrigine 200 mg tablet 200 mg PO DAILY 30 Days Qty: 30 0RF tizanidine 4 mg tablet 4 mg PO Q6H PRN (Reason: Spasms) 10 Days Qty: 30 0RF sumatriptan succinate 50 mg tablet See Rx Instructions .ROUTE .COMPLEX 10 Days Qty: 10 0RF Rx Instructions: MAY REPEAT IN TWO HOURS, MAX OF 200MG IN 24 HOURS amitriptyline 50 mg tablet 50 mg PO BEDTIME 15 Days Qty: 15 0RF spironolactone 25 mg tablet 25 mg PO BID 30 Days Qty: 30 0RF levothyroxine 50 mcg tablet 50 mcg PO QAM 30 Days Qty: 30 2RF pantoprazole 40 mg tablet,delayed release (DR/EC) 40 mg PO BID Qty: 60 0RF gabapentin 300 mg capsule 300 mg PO BEDTIME 30 Days Qty: 30 0RF levetiracetam 750 mg tablet 750 mg PO BID 30 Days Qty: 60 0RF oxycodone 30 mg tablet 30 mg PO Q4H PRN (Reason: Pain) 2 Days Qty: 12 0RF Rx Instructions: DIRECTED Reglan 10 mg tablet 10 mg PO Q6H PRN (Reason: nausea and vomiting) 10 Days Qty: 30 0RF lactulose 10 gram/15 mL solution 90 ml PO TID 30 Days Qty: 8100 0RF Creon 3,000-9,500- 15,000 unit capsule,delayed release(DR/EC) 1 cap PO TID 30 Days Qty: 30 0RF Anoro Ellipta 62.5-25 mcg/actuation blister with device 1 inh INHALATION DAILY 30 Days Qty: 30 0RF potassium chloride 20 mEq tablet extended release 20 meq PO DAILY 15 Days Qty: 15 0RF Discharge Orders: Discharge ED (Routine); Ordered 09/23/23 Ordered By: Dayna Burgos Referrals: Francisco Mckinley DO [Primary Care Provider] - Discharge Diet: Usual diet Discharge Activity: Increase activity as tolerated Patient Instructions: Abdominal Pain (ED), Opioid Safety, Pain Management Activity Restrictions/Additional Instructions: Thank you for choosing [facility] for your healthcare needs today. Please realize this is an emergency room and that we are providing you with a medical screening exam and this may not be complete and all inclusive of all the testing and or work up that you may need to determine your ailment or severity of your illness. You have been screened and evaluated and felt safe for discharge. Health conditions do change or evolve sometimes and as such it is important that you follow up with your Primary Doctor to be re checked, 3-5 days is a general good time frame for follow up. You are always welcome to return to the ED for re assessment if your symptoms are worsening or you have new concerns Coding Level of Care Code ED Accounts Specialist for 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
[2023-09-23 16:59] LABS: Bilirubin Urine Neg (Negative); Blood Urine Neg (Negative); Glucose Urine UA Norm (Normal); Ketones Urine Negative (Negative); Nitrate Urine Negative (Negative); Protein Urine 1+ (Negative); Urine Appearance Clear (CLEAR); Urine Color Yellow (Yellow); pH Urine 8 (5-7)
[2023-09-23 17:00] LABS: Add Urine Culture? No; Add Urine Microscopic? YES; Bacteria Urine TRACE /hpf; Leukocyte Esterase Urine Negative (Negative); Squamous Epithelial Cell Urine 0-4 /hpf (0-5); Urobilinogen Urine 4 mg/dL (Negative); WBC Urine 0-4 /hpf (0-5)
[2023-09-23] MEDS: famotidine 20 mg/2 mL INJ 40 MG IVP (17:39)
[2023-09-23] MEDS: ondansetron 2 mg/ML SDV 2 mL 4 MG IVP (17:39)
== END 2023-09-23 17:55 | disposition home or self-care (01) ==
PROVIDERS: Emergency Medicine; Emergency Provider Emergency Medicine; PCP Family Medicine
DX: R10.31 Right lower quadrant pain (principal); R10.32 Left lower quadrant pain; Z95.0 Presence of cardiac pacemaker; J44.9 Chronic obstructive pulmonary disease, unspecified; Z86.19 Personal history of other infectious and parasitic diseases; Z85.028 Personal history of other malignant neoplasm of stomach; E11.9 Type 2 diabetes mellitus without complications; I10 Essential (primary) hypertension; Z87.891 Personal history of nicotine dependence; Z79.4 Long term (current) use of insulin
CPT/HCPCS: 36415; 74177; 80053; 81001; 83690; 85025; 96374; 96375; 99285; J2405; J3490; Q9967

== ENCOUNTER 2023-10-18 22:25 | Emergency (ER) | payer MEDICAID, SELFPAY ==
[2023-10-18 22:31] VITALS: BP 135/91; PULSE 133; RESP 20; TEMP 39.6; O2SAT 94; BMI 33.9
--- NOTE | 2023-10-18 22:49 | XRR_ITS ---
PROCEDURE INFORMATION: Exam: XR Chest Exam date and time: 10/18/2023 10:55 PM Age: 48 years old Clinical indication: Pain; On breathing; Additional info: Fever TECHNIQUE: Imaging protocol: Radiologic exam of the chest. Views: 1 view. COMPARISON: CT angio chest w abd pel w con 08/16/2023 8:40 AM FINDINGS: Tubes, catheters and devices: Left pectoral pacemaker leads overlie the right atrium and right ventricle. Lungs: Central vascular prominence. Bibasilar hazy interstitial opacities likely representing pulmonary edema. Pleural spaces: Unremarkable. No pleural effusion. No pneumothorax. Heart/Mediastinum: Unremarkable. No cardiomegaly. Bones/joints: Unremarkable. XR/XR chest 1V portable [id number] IMPRESSION: Central vascular prominence. Bibasilar hazy interstitial opacities likely representing pulmonary edema.
--- NOTE | 2023-10-18 22:52 | ED_ITS ---
HPI - Altered Mental Status 2 General: Chief Complaint: Altered Mental Status Stated Complaint: AMS, N/V Time Seen by Provider: 10/18/23 22:44 History of Present Illness: 48-year-old female brought in due to con fusion. Patient has a history of liver failure per her. Patient was supposedly found in the grass by family. She reports that she was not. Patient reports that she went to be taken somewhere because she wants detox from chronic pain medication. Patient reports that she took some sort of a pill tonight but is not sure what it was. Patient is febrile but does not complain of any fever, cough, chills. 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 Pain management contract signed Metabolic encephalopathy SSS (sick sinus syndrome) Presence of permanent cardiac pacemaker Seizure disorder Tobacco dependency Hypothyroidism Accidental fentanyl overdose Overdose Cardiac arrest COPD (chronic obstructive pulmonary disease) Chronically on 3 L of oxygen Smoker Thrombocytopenia Bilateral pulmonary embolism Hepatitis B Pulmonary embolism Nicotine dependence, cigarettes, with unspecified nicotine-induced disorders Chronic hepatitis B Chronic abdominal pain Chronic hip pain Leg cramps Stomach cancer Pelvic inflammatory disease Diabetes mellitus Hypertension Encephalopathy Cirrhosis Gastroesophageal reflux GI bleeding Surgical History H/O right hemicolectomy History of right hemicolectomy H/O tubal ligation History of laparotomy History of hysterectomy Family History Mother Diabetes Father CAD (coronary artery disease) Other Cancer Social History Smoking and tobacco/nicotine status: former use of tobacco/nicotine Quit status (tobacco/nicotine): has quit using Year quit tobacco: 2020 Former quit date comment: 2ppd x 26 year Hx Alcohol intake: never Substance/Drug Use: never Physical Exam 2 Const: GENERAL APPEARANCE: disheveled and other (Febrile) Course 2 Vital Signs: Vital signs: Vital Signs Temperature 97.0 F L 10/19/23 04:00 Pulse Rate 91 10/19/23 06:25 Respiratory Rate 16 10/19/23 06:25 Blood Pressure 156/82 10/19/23 04:00 Pulse Oximetry 92 10/19/23 06:25 Oxygen Delivery Me thod Room Air 10/19/23 05:56 MDM - Altered Mental Status Medical Decision Making Patient diagnostic studies were ordered reviewed and interpreted by me. Patient with some mild pulmonary edema on her x-ray otherwise no significant acute findings. Patient labs show slight elevation of ammonia but otherwise no significant changes from her prior labs. Patient is initially febrile. I believe this is likely due to significant heat exposure. Patient lives in her car and has been out in the heat and has not been in any air conditioning. Patient was allowed to stay in the ER and sleep and felt significantly better. Patient shows no signs of an infectious cause. Patient was provided IV fluids, some Tylenol. Patient was discharged home with recommendations to follow-up with her primary care provider and to try to find somewhere out of the heat during the day. She is at increased risk of morbidity mortality based on her social determinants of health, access to medical care, being homeless. Lab Data 10/18/23 23:20 10/18/23 23:06 Radiology Impressions Chest X-Ray 10/18/23 22:49 IMPRESSION: Central vascular prominence. Bibasilar hazy interstitial opacities likely representing pulmonary edema. Abdomen/Pelvis CT 10/19/23 00:32 IMPRESSION: Negative for acute abdominopelvic pathology. Laboratory Results WBC 7.78 10^3/uL (3.29-11.43) 10/18/23 23:20 RBC 3.92 10^6/uL (3.85-5.65) 10/18/23 23:20 Hgb 11.90 g/dL (11.27-16.99) 10/18/23 23:20 Hct 35.2 % (36-47) L 10/18/23 23:20 MCV 89.8 fl (85-98) 10/18/23 23:20 MCH 30.4 pg (27-33) 10/18/23 23:20 MCHC 33.8 g/dL (30-55) 10/18/23 23:20 RDW 13.2 % (12.1-15.1) 10/18/23 23:20 Plt Count 145 10^3/cmm (157-399) L 10/18/23 23:20 MPV 10.7 fL (7.4-10.4) H 10/18/23 23:20 Neut % (Auto) 91.9 % 10/18/23 23:20 Lymph % (Auto) 4.2 % 10/18/23 23:20 [place] % (Auto) 2.4 % 10/18/23 23:20 Eos % (Auto) 0.5 % 10/18/23 23:20 Baso % (Auto) 0.4 % 10/18/23 23:20 Neut # (Auto) 7.14 10^3/uL (1.8-7.7) 10/18/23 23:20 Lymph # (Auto) 0.3 10^3/uL (0.8-4.8) L 10/18/23 23:20 [place] # (Auto) 0.2 10^3/uL (0.2-0.9) 10/18/23 23:20 Eos # (Auto) 0.0 10^3/uL (0.0-0.8) 10/18/23 23:20 Baso # (Auto) 0.0 10^3/uL (0.0-0.1) 10/18/23 23:20 Nucleated RBC % (auto) 0 % 10/18/23 23:20 Nucleated RBCs # 0.0 /100WBC 10/18/23 23:20 Sodium 140 mmol/L (136-145) 10/18/23 23:06 Potassium 3.1 mmol/L (3.5-5.1) L 10/18/23 23:06 Chloride 102 mmol/L (98-107) 10/18/23 23:06 Carbon Dioxide 27 mmol/L (22-29) 10/18/23 23:06 Anion Gap 14.1 (5-19) 10/18/23 23:06 BUN 8 mg/dL (6-20) 10/18/23 23:06 Creatinine 0.5 mg/dL (0.5-0.9) 10/18/23 23:06 GFR Calculation 131.1 mL/min (90-130) H 10/18/23 23:06 Glucose 133 mg/dL (65-115) H 10/18/23 23:06 Calculated Osmolality 290 mOsm/kg (285-295) 10/18/23 23:06 Lactic Acid 2.5 mmol/L (0.5-2.2) H 10/18/23 23:06 Lactic Acid (Sepsis) 1.5 mmol/L (0.5-2.2) 10/19/23 02:05 Calcium 8.8 mg/dL (8.5-10.5) 10/18/23 23:06 Magnesium 1.4 mg/dL (1.7-2.3) L 10/18/23 23:06 Total Bilirubin 0.7 mg/dL (0.15-1.2) 10/18/23 23:06 AST 29 U/L (0-32) 10/18/23 23:06 ALT 15 U/L (0-33) 10/18/23 23:06 Alkaline Phosphatase 118 U/L (35-105) H 10/18/23 23:06 Ammonia 87 umol/L (11-51) H 10/18/23 23:06 Total Protein 6.9 g/dL (6.6-8.7) 10/18/23 23:06 Albumin 3.2 g/dL (3.5-5.2) L 10/18/23 23:06 Globulin 3.7 g/dL (1.3-4.6) 10/18/23 23:06 Urine Color Yellow (Yellow) 10/18/23 23:40 Urine Appearance Clear (CLEAR) 10/18/23 23:40 Urine pH 8.0 (5-7) A 10/18/23 23:40 Ur Specific [place] 1.011 (1.005-1.030) 10/18/23 23:40 Urine Protein Negative (Negative) 10/18/23 23:40 Urine Glucose (UA) Negative (Normal) 10/18/23 23:40 Urine Ketones Negative (Negative) 10/18/23 23:40 Urine Blood Negative (Negative) 10/18/23 23:40 Urine Nitrate Negative (Negative) 10/18/23 23:40 Urine Bilirubin Negative (Negative) 10/18/23 23:40 Urine Urobilinogen 1.0 mg/dL (Negative) 10/18/23 23:40 Ur Leukocyte Esterase Negative (Negative) 10/18/23 23:40 Amorphous Sediment Not Reportable 10/18/23 23:40 Urine Opiates Screen Negative ng/mL (Negative) 10/18/23 23:40 Ur Barbiturates Screen Negative ng/mL (Negative) 10/18/23 23:40 Ur Phencyclidine Scrn Negative ng/mL (Negative) 10/18/23 23:40 Ur Amphetamines Screen Negative ng/mL (Negative) 10/18/23 23:40 U Benzodiazepines Scrn Negative ng/mL (Negative) 10/18/23 23:40 Urine Cocaine Screen Negative ng/mL (Negative) 10/18/23 23:40 U Marijuana (THC) Screen Negative ng/mL (Negative) 10/18/23 23:40 Ethyl Alcohol < 10 mg/dL (0-10) 10/18/23 23:06 SARS-CoV-2 Ag (Rapid) Negative (Negative) 10/18/23 23:40 All radiology interpretation(s) finalized by discharge Discharge Plan Discharge Patient Disposition: Home Clinical Impression: Homeless Heat exposure Qualifiers: Encounter type: initial encounter Qualified Code(s): T67.9XXA - Effect of heat and light, unspecified, initial encounter Heat effect Qualifiers: Encounter type: initial encounter Qualified Code(s): T67.9XXA - Effect of heat and light, unspecified, initial encounter Condition: Stable Prescriptions: New Lasix 20 mg tablet 20 mg PO DAILY PRN (Reason: edema) Qty: 14 0RF No Action levalbuterol tartrate [Xopenex HFA] 45 mcg/actuation HFA aerosol inhaler 2 inh inhalation Q6H Qty: 15 6RF zinc sulfate 50 mg zinc (220 mg) capsule 50 mg PO DAILY insulin glargine [Lantus U-100 Insulin] 100 unit/mL solution See Rx Instructions .ROUTE .COMPLEX Hold Instructions: Resume on 08/26/23. hold till PCP follow up Rx Instructions: INJECT 20 UNITS IN THE MORNING AND 40 UNITS IN THE EVENING. scopolamine base 1 mg over 3 days patch 3 day 1 patch topical Q3D tenofovir disoproxil fumarate 300 mg tablet 300 mg PO DAILY nifedipine 30 mg tablet extended release 24hr 30 mg PO DAILY 30 Days Qty: 30 0RF furosemide 40 mg tablet 40 mg PO DAILY 15 Days Qty: 15 0RF lamotrigine 200 mg tablet 200 mg PO DAILY 30 Days Qty: 30 0RF tizanidine 4 mg tablet 4 mg PO Q6H PRN (Reason: Spasms) 10 Days Qty: 30 0RF sumatriptan succinate 50 mg tablet See Rx Instructions .ROUTE .COMPLEX 10 Days Qty: 10 0RF Rx Instructions: MAY REPEAT IN TWO HOURS, MAX OF 200MG IN 24 HOURS amitriptyline 50 mg tablet 50 mg PO BEDTIME 15 Days Qty: 15 0RF spironolactone 25 mg tablet 25 mg PO BID 30 Days Qty: 30 0RF levothyroxine 50 mcg tablet 50 mcg PO QAM 30 Days Qty: 30 2RF pantoprazole 40 mg tablet,delayed release (DR/EC) 40 mg PO BID Qty: 60 0RF gabapentin 300 mg capsule 300 mg PO BEDTIME 30 Days Qty: 30 0RF levetiracetam 750 mg tablet 750 mg PO BID 30 Days Qty: 60 0RF oxycodone 30 mg tablet 30 mg PO Q4H PRN (Reason: Pain) 2 Days Qty: 12 0RF Rx Instructions: DIRECTED Reglan 10 mg tablet 10 mg PO Q6H PRN (Reason: nausea and vomiting) 10 Days Qty: 30 0RF lactulose 10 gram/15 mL solution 90 ml PO TID 30 Days Qty: 8100 0RF Creon 3,000-9,500- 15,000 unit capsule,delayed release(DR/EC) 1 cap PO TID 30 Days Qty: 30 0RF Anoro Ellipta 62.5-25 mcg/actuation blister with device 1 inh INHALATION DAILY 30 Days Qty: 30 0RF potassium chloride 20 mEq tablet extended release 20 meq PO DAILY 15 Days Qty: 15 0RF Discharge Orders: Discharge ED (Routine); Ordered 10/19/23 Ordered By: Tyler Alegria Referrals: Francisco Mckinley DO [Primary Care Provider] - Discharge Diet: Usual diet Discharge Activity: Increase activity as tolerated Patient Instructions: Heat Exhaustion - Adult, Opioid Safety, Pain Management Activity Restrictions/Additional Instructions: Please be sure you are drinking plenty of fluids and try and limit your exposure to heat Coding Level of Care Code ED Can Closing Machine Operator for Geneg Marcela
[2023-10-18] MEDS: sodium chloride 0.9% 1,000 ML 999 ML IV (23:11)
[2023-10-18 23:22] VITALS: PULSE 125; RESP 20; O2SAT 96
[2023-10-18 23:30] VITALS: BP 140/89
[2023-10-18 23:35] LABS: Ammonia 87 umol/L (11-51)
[2023-10-18 23:38] LABS: Basophils % 0.4 %; Eosinophils % 0.5 %; Hematocrit 35.2 % (36-47); Lymphocytes # 0.3 10^3/uL (0.8-4.8); Lymphocytes % 4.2 %; Mean Corpuscular HGB Conc 33.8 g/dL (30-55); Mean Corpuscular Hemoglobin 30.4 pg (27-33); Mean Corpuscular Volume 89.8 fl (85-98); Mean Platelet Volume 10.7 fL (7.4-10.4); Monocytes # 0.2 10^3/uL (0.2-0.9); Monocytes % 2.4 %; Neutrophils # 7.14 10^3/uL (1.8-7.7); Neutrophils % 91.9 %; Nucleated Red Blood Cells % 0 %; Platelet Count 145 10^3/cmm (157-399); Red Blood Count 3.92 10^6/uL (3.85-5.65); Red Cell Distribution Width 13.2 % (12.1-15.1); White Blood Count 7.78 10^3/uL (3.29-11.43)
[2023-10-18 23:53] LABS: Charge for UA Resulting for Rev
[2023-10-18 23:56] LABS: Bilirubin Urine Negative (Negative); Blood Urine Negative (Negative); Glucose Urine UA Negative (Normal); Ketones Urine Negative (Negative); Leukocyte Esterase Urine Negative (Negative); Nitrate Urine Negative (Negative); Protein Urine Negative (Negative); Specific Gravity, Urine 1.011 (1.005-1.030); Urine Appearance Clear (CLEAR); Urine Color Yellow (Yellow)
[2023-10-19] VITALS (9 sets, daily range): BP systolic 141–156; BP diastolic 78–82; PULSE 91–130; RESP 16–22; TEMP 36.1; O2SAT 89–93
[2023-10-19 00:14] LABS: Alanine Aminotransferase 15 U/L (0-33); Albumin Level 3.2 g/dL (3.5-5.2); Alkaline Phosphatase 118 U/L (35-105); Anion Gap 14.1 (5-19); Aspartate Amino Transferase 29 U/L (0-32); Blood Urea Nitrogen 8 mg/dL (6-20); Calcium 8.8 mg/dL (8.5-10.5); Carbon Dioxide 27 mmol/L (22-29); Chloride 102 mmol/L (98-107); Creatinine Clr Calc Pharmacy 191.6974; Globulin 3.7 g/dL (1.3-4.6); Glomerular Filtration Rate 131.1 mL/min (90-130); Glucose 133 mg/dL (65-115); Magnesium 1.4 mg/dL (1.7-2.3); Osmolality Calculated 290 mOsm/kg (285-295); Potassium 3.1 mmol/L (3.5-5.1); Sodium 140 mmol/L (136-145); Total Bilirubin 0.7 mg/dL (0.15-1.2); Total Protein 6.9 g/dL (6.6-8.7)
[2023-10-19 00:15] LABS: Lactic Sepsis W/Reflex 2.5 mmol/L (0.5-2.2)
[2023-10-19 00:17] LABS: Alcohol Level < 10 mg/dL (0-10)
[2023-10-19 00:25] LABS: Amphetamines Screen Urine Negative (Negative); Barbiturates Screen Urine Negative (Negative); Benzodiazepines Screen Urine Negative (Negative); Cocaine Screen Urine Negative (Negative); Opiate Screen Urine Negative (Negative); PCP Screen Urine Negative (Negative); SARS Covid-2 Antigen Negative (Negative); THC Screen Urine Negative (Negative)
--- NOTE | 2023-10-19 00:32 | CTR_ITS ---
PROCEDURE INFORMATION: Exam: CT Abdomen And Pelvis With Contrast Exam date and time: 10/19/2023 12:46 AM Age: 48 years old Clinical indication: Fever and nausea and vomiting; Abdominal pain; Generalized; Prior surgery; Surgery date: 6+ months; Surgery type: Partial colectomy. Hysterectomy. Patient HX: Diffuse abd pain with fever and n/v. Charted history of gastric cancer. ; Additional info: Fever, abd pain TECHNIQUE: Imaging protocol: Computed tomography of the abdomen and pelvis with contrast. Radiation optimization: All CT scans at this facility use at least one of these dose optimization techniques: automated exposure control; mA and/or kV adjustment per patient size (includes targeted exams where dose is matched to clinical indication); or iterative reconstruction. Contrast material: OMNI 350; Contrast volume: 100 ml; Contrast route: INTRAVENOUS (IV); COMPARISON: CT abdomen pelvis w con* [id number] 09/23/2023 3:30 PM RADIATION DOSE METRICS: Total DLP (mGy-cm): 960.23 FINDINGS: Liver: Mildly nodular liver contour. Negative for mass. Subcentimeter cyst in the inferior right hepatic lobe stable from comparison. Gallbladder and biliary ducts: Normal. No calcified stones. No ductal dilation. Pancreas: Normal. No ductal dilation. Spleen: Mild severity splenomegaly redemonstrated. Adrenal glands: Normal. No mass. Kidneys and ureters: Punctate nonobstructing left kidney lower pole stone. Negative for hydronephrosis. Negative for perinephric inflammation. Stomach and bowel: Unremarkable. No obstruction. No mucosal thickening. Appendix: No evidence of appendicitis. Intraperitoneal space: Unremarkable. No free air. No significant fluid collection. Vasculature: Venous splenorenal shunt is noted. Plaques of the abdominal aorta wall. Negative for aneurysm or dissection. Lymph nodes: Unremarkable. No enlarged lymph nodes. Urinary bladder: Unremarkable as visualized. Reproductive: Hysterectomy. Bones/joints: Unremarkable. No acute fracture. Soft tissues: Umbilical hernia without complication. CT/CT abdomen pelvis w con* [id number] IMPRESSION: Negative for acute abdominopelvic pathology.
[2023-10-19] MEDS: sodium chloride 0.9% 1,000 ML 999 ML IV (00:35)
[2023-10-19] MEDS: acetaminophen 325 mg Tablet 650 MG PO (00:35)
[2023-10-19] MEDS: iohexol 350 mg/mL 500 mL Btl (per mL) IV (00:52)
--- NOTE | 2023-10-19 01:11 | PC.NURSE ---
Assumed care from Lara BECKETT at this time.
[2023-10-19 01:45] LABS: Reflex Lactate Order REFLEX LACTIC ORDERD
[2023-10-19 02:31] LABS: Lactic Acid level (Lactate) 1.5 mmol/L (0.5-2.2)
[2023-10-19 16:01] LABS: Bacillus cereus group Not Detected (NOT DETECT); Bacillus subtillis group Not Detected (NOT DETECT); Corynebacterium Not Detected (NOT DETECT); Cutibacterium acnes (P.acnes) Not Detected (NOT DETECT); Enterococcus Detected (NOT DETECT); Enterococcus faecalis Detected (NOT DETECT); Enterococcus faecium Not Detected (NOT DETECT); Lactobacillus species Not Detected (NOT DETECT); Listeria Not Detected (NOT DETECT); Listeria monocytogenes Not Detected (NOT DETECT); Micrococcus Not Detected (NOT DETECT); Pan Candida Not Detected (NOT DETECT); Pan Gram-Negative Not Detected (NOT DETECT); Staphylococcus epidermidis Not Detected (NOT DETECT); Staphylococcus lugdunensis Not Detected (NOT DETECT); Staphylococcus species Not Detected (NOT DETECT); Streptococcus agalactiae Not Detected (NOT DETECT); Streptococcus anginosus group Not Detected (NOT DETECT); Streptococcus pneumoniae Not Detected (NOT DETECT); Streptococcus pyogenes Not Detected (NOT DETECT); Streptococcus species Not Detected (NOT DETECT); vanA Not Detected ` (NOT DETECT); vanC Not Detected (NOT DETECT)
== END 2023-10-19 06:18 | disposition home or self-care (01) ==
PROVIDERS: Emergency Provider Student in an Organized Health Care Education/Training Program; PCP Family Medicine
DX: T67.9XXA Effect of heat and light, unspecified, initial encounter (principal); Z59.00 Homelessness unspecified; X30.XXXA Exposure to excessive natural heat, initial encounter; Z79.4 Long term (current) use of insulin; Z11.52 Encounter for screening for COVID-19; Z87.891 Personal history of nicotine dependence; Z95.0 Presence of cardiac pacemaker; J44.9 Chronic obstructive pulmonary disease, unspecified; Z99.81 Dependence on supplemental oxygen; Z86.19 Personal history of other infectious and parasitic diseases; Z85.028 Personal history of other malignant neoplasm of stomach; E11.9 Type 2 diabetes mellitus without complications; I10 Essential (primary) hypertension
CPT/HCPCS: 36415; 71045; 74177; 80053; 80306; 80307; 81003; 81015; 82140; 83605; 83735; 85025; 87040; 87077; 87150; 87186; 87205; 87426; 94640; 96360; 99285; J7030; Q9967

== ENCOUNTER 2023-10-19 08:13 | Emergency (ER) | payer MEDICAID, SELFPAY ==
[2023-10-19 08:40] VITALS: BP 158/108; PULSE 96; RESP 17; TEMP 36.6; O2SAT 94; BMI 27.1
[2023-10-19 08:46] LABS: Basophils # 0.1 10^3/uL (0.0-0.1); Basophils % 0.4 %; Eosinophils % 0.2 %; Hematocrit 37.8 % (36-47); Lymphocytes # 0.9 10^3/uL (0.8-4.8); Lymphocytes % 7.3 %; Mean Corpuscular HGB Conc 32.5 g/dL (30-55); Mean Corpuscular Hemoglobin 30.3 pg (27-33); Mean Corpuscular Volume 93.1 fl (85-98); Mean Platelet Volume 10.6 fL (7.4-10.4); Monocytes # 0.8 10^3/uL (0.2-0.9); Monocytes % 6.2 %; Neutrophils # 10.72 10^3/uL (1.8-7.7); Neutrophils % 85.6 %; Nucleated Red Blood Cells % 0 %; Platelet Count 150 10^3/cmm (157-399); Red Blood Count 4.06 10^6/uL (3.85-5.65); Red Cell Distribution Width 13.7 % (12.1-15.1); White Blood Count 12.54 10^3/uL (3.29-11.43)
[2023-10-19] MEDS: ondansetron 2 mg/ML SDV 2 mL 4 MG IVP (08:53)
[2023-10-19] MEDS: sodium chloride 0.9% 1,000 ML 999 ML IV (08:53)
[2023-10-19 09:02] LABS: Alanine Aminotransferase 15 U/L (0-33); Alkaline Phosphatase 95 U/L (35-105); Aspartate Amino Transferase 28 U/L (0-32); Blood Urea Nitrogen 7 mg/dL (6-20); Calcium 8.3 mg/dL (8.5-10.5); Carbon Dioxide 20 mmol/L (22-29); Chloride 106 mmol/L (98-107); Creatinine Clr Calc Pharmacy 143.5043; Globulin 3.8 g/dL (1.3-4.6); Glomerular Filtration Rate 106.3 mL/min (90-130); Glucose 208 mg/dL (65-115); Lipase 13 U/L (13-60); Osmolality Calculated 298 mOsm/kg (285-295); Sodium 142 mmol/L (136-145); Total Bilirubin 0.8 mg/dL (0.15-1.2); Total Protein 6.8 g/dL (6.6-8.7)
--- NOTE | 2023-10-19 09:07 | XR_ITS ---
WS: [id number] Portable AP upright chest, 10/19/2023 Clinical Data: dyspnea/cough Comparison: Portable chest, 10/18/2023 Findings: No nodules, masses or effusions are seen. The heart is normal. The pulmonary vascularity is not increased. No pneumonia or pneumothorax is seen. The bibasilar opacities have cleared. The aorti c arch and descending thoracic aorta show tortuosity. The permanent pacemaker remains in good positio n. XR/XR chest 1V portable [id number] Impression: 1. Clearing of bilateral basilar opacities. 2. Atherosclerosis and permanent pacemaker.
[2023-10-19 09:11] LABS: Ammonia 61 umol/L (11-51)
[2023-10-19 09:50] VITALS: BP 131/82; PULSE 85; O2SAT 94
[2023-10-19 09:54] LABS: Charge for UA Resulting for Rev
--- NOTE | 2023-10-19 10:08 | W.ED.ABDPA2 ---
HPI - Abdominal Pain General: Chief Complaint: Abdominal Pain Stated Complaint: nausea, vomitting, abd pain Time Seen by Provider: 10/19/23 08:23 History of Present Illness: 48-year-old female returns to the emergency room complaining of abdominal discomfort she seen last night for the same. She had a mild elevation in her ammonia level but was not encephalopathic. 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) use of opiate analgesic Pain management contract signed Metabolic encephalopathy SSS (sick sinus syndrome) Presence of permanent cardiac pacemaker Seizure disorder Tobacco dependency Hypothyroidism Accidental fentanyl overdose Overdose Cardiac arrest COPD (chronic obstructive pulmonary disease) Chronically on 3 L of oxygen Smoker Thrombocytopenia Bilateral pulmonary embolism Hepatitis B Pulmonary embolism Nicotine dependence, cigarettes, with unspecified nicotine-induced disorders Chronic hepatitis B Chronic abdominal pain Chronic hip pain Leg cramps Stomach cancer Pelvic inflammatory disease Diabetes mellitus Hypertension Encephalopathy Cirrhosis Gastroesophageal reflux GI bleeding Surgical History H/O right hemicolectomy History of right hemicolectomy H/O tubal ligation History of laparotomy History of hysterectomy Family History Mother Diabetes Father CAD (coronary artery disease) Other Cancer Social History Smoking and tobacco/nicotine status: former use of tobacco/nicotine Quit status (tobacco/nicotine): has quit using Year quit tobacco: 2020 Former quit date comment: 2ppd x 26 year Hx Alcohol intake: never Substance/Drug Use: never Physical Exam Const: GENERAL APPEARANCE: cooperative ORIENTATION/CONSCIOUSNESS: Yes awake, Yes oriented to person, Yes oriented to place and Yes oriented to time HENMT: COMMON NORMALS: normocephalic, atraumatic and hearing grossly normal bilaterally HEAD & SCALP: normocephalic and atraumatic Resp: COMMON NORMALS: normal respiratory effort, No retractions, No use of accessory muscles and clear to auscultation bilaterally AUSCULTATION: clear to auscultation bilaterally Cardio: COMMON NORMALS: regular rate, regular rhythm and No murmurs present (Cardio) RATE: regular rate RHYTHM: regular rhythm GI: COMMON NORMALS: Soft to palpation and No hepatosplenomegaly present AUSCULTATION: Yes normoactive bowel sounds PALPATION: Yes Soft to palpation, No Tenderness to palpation present (GI), No Guarding due to palpation present (GI) and Yes No hepatosplenomegaly present Extremity: COMMON NORMALS: normal to inspection, capillary refill normal, no clubbing, cyanosis or edema, no calf tenderness and no pedal edema Neuro: SENSORIUM/ORIENTATION: Yes oriented to person, Yes oriented to place and Yes oriented to time Skin: COMMON NORMALS: no rashes or lesions noted GENERAL SKIN EXAM: no rashes or lesions noted Course Vital Signs: Vital signs: Vital Signs Temperature 97.8 F 10/19/23 08:40 Pulse Rate 93 10/19/23 11:19 Respiratory Rate 17 10/19/23 08:40 Blood Pressure 136/81 10/19/23 11:19 Pulse Oximetry 94 10/19/23 11:19 Oxygen Delivery Me thod Room Air 10/19/23 08:40 MDM - Abdominal Pain Medical Decision Making Labs actually improved from last abdominal exam is benign. Do not believe is any benefit in repeating the CT in such short order. She is feeling better after fluids. Her primary issue is she really does not have any where to go. Repeat exam is unremarkable. Her ammonia level is actually decreased she is not showing any signs of encephalopathy. Will discharge or have her go to crisis stabilization see if they can help her with resources to escape the heat. Lab Data 10/19/23 08:39 10/19/23 08:39 Labs/Radiology: Radiology Impressions Chest X-Ray 10/19/23 09:07 Impression: 1. Clearing of bilateral basilar opacities. 2. Atherosclerosis and permanent pacemaker. Laboratory Results WBC 12.54 10^3/uL (3.29-11.43) H 10/19/23 08:39 RBC 4.06 10^6/uL (3.85-5.65) 10/19/23 08:39 Hgb 12.30 g/dL (11.27-16.99) 10/19/23 08:39 Hct 37.8 % (36-47) 10/19/23 08:39 MCV 93.1 fl (85-98) 10/19/23 08:39 MCH 30.3 pg (27-33) 10/19/23 08:39 MCHC 32.5 g/dL (30-55) 10/19/23 08:39 RDW 13.7 % (12.1-15.1) 10/19/23 08:39 Plt Count 150 10^3/cmm (157-399) L 10/19/23 08:39 MPV 10.6 fL (7.4-10.4) H 10/19/23 08:39 Neut % (Auto) 85.6 % 10/19/23 08:39 Lymph % (Auto) 7.3 % 10/19/23 08:39 Hartley % (Auto) 6.2 % 10/19/23 08:39 Eos % (Auto) 0.2 % 10/19/23 08:39 Baso % (Auto) 0.4 % 10/19/23 08:39 Neut # (Auto) 10.72 10^3/uL (1.8-7.7) H 10/19/23 08:39 Lymph # (Auto) 0.9 10^3/uL (0.8-4.8) 10/19/23 08:39 Hartley # (Auto) 0.8 10^3/uL (0.2-0.9) 10/19/23 08:39 Eos # (Auto) 0.0 10^3/uL (0.0-0.8) 10/19/23 08:39 Baso # (Auto) 0.1 10^3/uL (0.0-0.1) 10/19/23 08:39 Nucleated RBC % (auto) 0 % 10/19/23 08:39 Nucleated RBCs # 0.0 /100WBC 10/19/23 08:39 Sodium 142 mmol/L (136-145) 10/19/23 08:39 Potassium 3.0 mmol/L (3.5-5.1) L 10/19/23 08:39 Chloride 106 mmol/L (98-107) 10/19/23 08:39 Carbon Dioxide 20 mmol/L (22-29) L 10/19/23 08:39 Anion Gap 19.0 (5-19) 10/19/23 08:39 BUN 7 mg/dL (6-20) 10/19/23 08:39 Creatinine 0.6 mg/dL (0.5-0.9) 10/19/23 08:39 GFR Calculation 106.3 mL/min (90-130) 10/19/23 08:39 Glucose 208 mg/dL (65-115) H 10/19/23 08:39 Calculated Osmolality 298 mOsm/kg (285-295) H 10/19/23 08:39 Calcium 8.3 mg/dL (8.5-10.5) L 10/19/23 08:39 Total Bilirubin 0.8 mg/dL (0.15-1.2) 10/19/23 08:39 AST 28 U/L (0-32) 10/19/23 08:39 ALT 15 U/L (0-33) 10/19/23 08:39 Alkaline Phosphatase 95 U/L (35-105) 10/19/23 08:39 Ammonia 61 umol/L (11-51) H 10/19/23 08:39 Total Protein 6.8 g/dL (6.6-8.7) 10/19/23 08:39 Albumin 3.0 g/dL (3.5-5.2) L 10/19/23 08:39 Globulin 3.8 g/dL (1.3-4.6) 10/19/23 08:39 Lipase 13 U/L (13-60) 10/19/23 08:39 Urine Color Yellow (Yellow) 10/19/23 09:40 Urine Appearance Clear (CLEAR) 10/19/23 09:40 Urine pH 7.5 (5-7) 10/19/23 09:40 Ur Specific [place] 1.021 (1.005-1.030) 10/19/23 09:40 Urine Protein Negative (Negative) 10/19/23 09:40 Urine Glucose (UA) Trace (Normal) H 10/19/23 09:40 Urine Ketones Negative (Negative) 10/19/23 09:40 Urine Blood Negative (Negative) 10/19/23 09:40 Urine Nitrate Negative (Negative) 10/19/23 09:40 Urine Bilirubin Negative (Negative) 10/19/23 09:40 Urine Urobilinogen 1.0 mg/dL (Negative) 10/19/23 09:40 Ur Leukocyte Esterase Negative (Negative) 10/19/23 09:40 Amorphous Sediment Not Reportable 10/19/23 09:40 All radiology interpretation(s) finalized by discharge Discharge Plan Discharge Patient Disposition: Home Clinical Impression: Homeless, Cirrhosis of liver Heat exposure Qualifiers: Encounter type: initial encounter Qualified Code(s): T67.9XXA - Effect of heat and light, unspecified, initial encounter Condition: Stable Prescriptions: No Action zinc sulfate 50 mg zinc (220 mg) capsule 50 mg PO DAILY amitriptyline 75 mg tablet 75 mg PO BEDTIME furosemide 40 mg tablet See Rx Instructions .ROUTE .COMPLEX Rx Instructions: TAKE 2 TABLETS BY MOUTH EVERY MORNING AND ONE EVERY DAY AFTER LUNCH doxepin 10 mg capsule 10 mg PO BEDTIME morphine 30 mg tablet extended release 30 mg PO Q12H Ventolin HFA 90 mcg/actuation HFA aerosol inhaler 2 puff INHALATION Q6H PRN (Reason: Shortness Of Breath) Nurtec ODT 75 mg tablet,disintegrating 75 mg PO DAILY PRN (Reason: Migraine Headache) Xopenex HFA 45 mcg/actuation HFA aerosol inhaler 2 inh inhalation Q6H PRN (Reason: Shortness Of Breath) insulin glargine [Lantus U-100 Insulin] 100 unit/mL solution See Rx Instructions .ROUTE .COMPLEX Hold Instructions: Resume on 08/26/23. hold till PCP follow up Rx Instructions: INJECT 10 UNITS IN THE MORNING AND 40 UNITS IN THE EVENING. scopolamine base 1 mg over 3 days patch 3 day 1 patch topical Q3D tenofovir disoproxil fumarate 300 mg tablet 300 mg PO DAILY nifedipine 30 mg tablet extended release 24hr 30 mg PO DAILY 30 Days Qty: 30 0RF lamotrigine 200 mg tablet 200 mg PO DAILY 30 Days Qty: 30 0RF tizanidine 4 mg tablet 4 mg PO Q6H PRN (Reason: Spasms) 10 Days Qty: 30 0RF sumatriptan succinate 50 mg tablet See Rx Instructions .ROUTE .COMPLEX 10 Days Qty: 10 0RF Rx Instructions: MAY REPEAT IN TWO HOURS, MAX OF 200MG IN 24 HOURS spironolactone 25 mg tablet 25 mg PO BID 30 Days Qty: 30 0RF levothyroxine 50 mcg tablet 50 mcg PO QAM 30 Days Qty: 30 2RF pantoprazole 40 mg tablet,delayed release (DR/EC) 40 mg PO BID Qty: 60 0RF gabapentin 300 mg capsule 300 mg PO BEDTIME 30 Days Qty: 30 0RF levetiracetam 750 mg tablet 750 mg PO BID 30 Days Qty: 60 0RF oxycodone 30 mg tablet 30 mg PO Q4H PRN (Reason: Pain) 2 Days Qty: 12 0RF metoclopramide HCl [Reglan] 10 mg tablet 10 mg PO Q6H PRN (Reason: nausea and vomiting) 10 Days Qty: 30 0RF lactulose 10 gram/15 mL solution 90 ml PO TID 30 Days Qty: 8100 0RF Creon 3,000-9,500- 15,000 unit capsule,delayed release(DR/EC) 1 cap PO TID 30 Days Qty: 30 0RF Anoro Ellipta 62.5-25 mcg/actuation blister with device 1 inh INHALATION DAILY 30 Days Qty: 30 0RF potassium chloride 20 mEq tablet extended release 20 meq PO DAILY 15 Days Qty: 15 0RF furosemide [Lasix] 20 mg tablet 20 mg PO DAILY PRN (Reason: edema) Qty: 14 0RF Discharge Orders: Discharge ED (Routine); Ordered 10/19/23 Ordered By: Lane Gaffney Referrals: Francisco Mckinley DO [Primary Care Provider] - Discharge Diet: Usual diet Discharge Activity: Resume usual activity Patient Instructions: Opioid Safety, Pain Management Activity Restrictions/Additional Instructions: Thank you for choosing [facility] for your healthcare needs today. It is very important that you follow up as instructed or that you return to the Emergency Department should you have concerns or if your condition changes or worsens in any way. You are seen emergency room with complaints of abdominal pain. Your CT done earlier today was normal your laboratory test that actually improved from what was seen earlier. Recommend that you stick to a clear liquid diet for the next 24 to 48 hours advance diet as tolerated return if you have further problems. Coding Level of Care Code ED Hand Therapist for 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
[2023-10-19 10:18] LABS: Bilirubin Urine Negative (Negative); Blood Urine Negative (Negative); Glucose Urine UA Trace (Normal); Ketones Urine Negative (Negative); Leukocyte Esterase Urine Negative (Negative); Nitrate Urine Negative (Negative); Protein Urine Negative (Negative); Specific Gravity, Urine 1.021 (1.005-1.030); Urine Appearance Clear (CLEAR); Urine Color Yellow (Yellow); pH Urine 7.5 (5-7)
[2023-10-19 11:02] VITALS: BP 136/81; PULSE 93; O2SAT 94
[2023-10-19 11:19] VITALS: BP 136/81; PULSE 93; O2SAT 94
--- NOTE | 2023-10-19 17:08 | PC.NURSE ---
This Nurse attempted to contact pt to inform them to come back in to ED due to culture results requested by . Pt did not have voicemail set up at this time. This nurse attempted to contact Pedro Rowan, pt person to notify, he did not answer, no voicemail set up at this time. This nurse attempted to contact pt Daughter, Hector Cooley, no answer, voicemail left asking to contact the ED. Hector Cooley called back to ED, she said that she has no way of contacting pt. This nurse attempted to contact pt primary contact, Brittany Mcclellan, no answer and unable to leave voicemail. This nurse attempted to contact pt secondary contact, Farnaz Edmond, no answer and not able to leave voicemail. This nurse attempted to contact Crisis Center as pt was told to go there after DC, no answer. Security contacted and verified there was no one in the crisis center. [place] [employer] contacted by Helen BECKETT for a wellness check on pt.
--- NOTE | 2023-10-19 18:39 | PC.NURSE ---
per [place] [employer], unable to locate patient at this time. [employer] Sergeant states pt is not at primary residence, male at this residence states Maribell was dropped off at a friends house this morning via Pedro Rowan. [employer] attempted contact with Pedro Rowan, was unable. [employer] states they checked residence where pt was taken, pt was not there.
--- NOTE | 2023-10-20 10:59 | PC.NURSE ---
pt called ER at 1058 on 10/20/2023, this nurse informed pt that Dr. Gaffney wanted pt to come back to ER. pt states she would come in.
== END 2023-10-19 11:20 | disposition home or self-care (01) ==
PROVIDERS: Emergency Provider Family Medicine; PCP Family Medicine
DX: T67.9XXA Effect of heat and light, unspecified, initial encounter (principal); K74.60 Unspecified cirrhosis of liver; Z59.00 Homelessness unspecified; Z87.891 Personal history of nicotine dependence; Z95.0 Presence of cardiac pacemaker; J44.9 Chronic obstructive pulmonary disease, unspecified; Z86.19 Personal history of other infectious and parasitic diseases; Z85.028 Personal history of other malignant neoplasm of stomach; I10 Essential (primary) hypertension; E11.9 Type 2 diabetes mellitus without complications; X30.XXXA Exposure to excessive natural heat, initial encounter; Z79.4 Long term (current) use of insulin
CPT/HCPCS: 71045; 80053; 81003; 81015; 82140; 83690; 85025; 96361; 96374; 99284; J2405; J7030

== ENCOUNTER 2023-10-20 11:40 | Inpatient (IN) | payer MEDICAID, SELFPAY ==
[2023-10-20] VITALS (10 sets, daily range): BP systolic 135–170; BP diastolic 93–108; PULSE 60–105; RESP 16–22; TEMP 36.4–36.7; O2SAT 92–97; BMI 4589.0
--- NOTE | 2023-10-20 12:05 | W.ED.GENADLT ---
HPI - General Adult General: Chief complaint: Abdominal Pain Stated complaint: was called back due to blood work Time Seen by Provider: 10/20/23 11:52 Source: patient Mode of arrival: EMS Limitations: no limitations History of Present Illness: This patient was a call back to the emergency department because of positive blood cultures showing Enterococcus species. The patient has a history of chronic cirrhosis which she states is due to her hepatitis B. She does not have a history of alcohol use but she also has history of what she calls undiagnosed diabetes. She is currently living in her car which she states is not running. She was living in a home that was rated by the drug track task force and condemned subsequently and she does not have a place other than her car to be domiciled and. She states that she still is having abdominal pain and thinks that her abdominal pain is increased since the other night. She denies any concomitant nausea vomiting or diarrhea. She has had cough and congestion. She does have a history of COPD and states she has been using her inhalers more. She does have a history of opiate use disorder but she states that it has been all pills and she has never used any IV drugs. She smokes tobacco occasionally and does vape. She does not smoke marijuana or use any other street drugs by her admission. She denies any other known exposure to infectious disease. She states she has no family locally. Associated symptoms: Reports malaise; Deny chest pain, headache(s), nausea, rash, palpitations or vomiting Review of Systems Const: Reports: malaise Eyes: Denies: change in vision ENMT: Denies: throat pain, nasal discharge or nasal congestion Card: Denies: chest pain, palpitations or irregular heart rhythm Resp: Reports: non-productive cough and wheezing GI: Reports: abdominal pain; Denies: nausea, vomiting or diarrhea : Denies: flank pain, difficulty voiding, dysuria or urinary frequency Musc: Denies: neck pain, back pain, extremity pain or extremity swelling Skin/Breast: Denies: rash or pruritus Neuro: Denies: headache(s), numbness in extremities or weakness in extremities Psych: Denies: suicidal ideation or homicidal ideation [facility] ED PFSH: Medical History Hypokalemia 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 Pain management contract signed Metabolic encephalopathy SSS (sick sinus syndrome) Presence of permanent cardiac pacemaker Seizure disorder Tobacco dependency Hypothyroidism Accidental fentanyl overdose Overdose Cardiac arrest COPD (chronic obstructive pulmonary disease) Chronically on 3 L of oxygen Smoker Thrombocytopenia Bilateral pulmonary embolism Hepatitis B Pulmonary embolism Nicotine dependence, cigarettes, with unspecified nicotine-induced disorders Chronic hepatitis B Chronic abdominal pain Chronic hip pain Leg cramps Stomach cancer Pelvic inflammatory disease Diabetes mellitus Hypertension Encephalopathy Cirrhosis Gastroesophageal reflux GI bleeding Surgical History H/O right hemicolectomy History of right hemicolectomy H/O tubal ligation History of laparotomy History of hysterectomy Family History Mother Diabetes Father CAD (coronary artery disease) Other Cancer Social History Smoking and tobacco/nicotine status: former use of tobacco/nicotine Quit status (tobacco/nicotine): has quit using Year quit tobacco: 2020 Former quit date comment: 2ppd x 26 year Hx Alcohol intake: never Substance/Drug Use: never Physical Exam Narrative: EXAM NARRATIVE: Patient lying in examination bed she answers questions in a hoarse voice. She is goal-directed and her speech however. She appears to be comfortable at this time. Const: COMMON NORMALS: patient oriented x3 and alert GENERAL APPEARANCE: cooperative NUTRITIONAL APPEARANCE: overweight HENMT: COMMON NORMALS: normocephalic and oropharynx normal HEAD & SCALP: normocephalic FACE & SINUS: normal facial exam and sinuses nontender MOUTH: Abnormal oral and palatal mucosa present (Dry) Eye: COMMON NORMALS: Equal, round and reactive pupils present, EOMs intact bilaterally and conjunctivae normal CONJUNCTIVA: Yes conjunctivae normal PUPIL: Yes Equal, round and reactive pupils present Neck/C-Spine: COMMON NORMALS: full ROM, no lymphadenopathy and no JVD Chest: COMMONS NORMALS: normal inspection of the chest Resp: AUSCULTATION: rhonchi throughout Cardio: COMMON NORMALS: no JVD, regular rate, regular rhythm, No murmurs present (Cardio) and Peripheral pulses 2+ throughout RATE: regular rate RHYTHM: regular rhythm PERIPHERAL PULSES: Peripheral pulses 2+ throughout GI: COMMON NORMALS: Soft to palpation INSPECTION: Yes central obesity PALPATION: Yes Soft to palpation, Yes Tenderness to palpation present (GI), No Guarding due to palpation present (GI) and No Rigid due to palpation Back/Pelvis: COMMON NORMALS: thoracic and lumbar spine normal to inspection, no thoracic nor lumbar tenderness and thoraco-lumbar ROM normal Extremity: COMMON NORMALS: normal to inspection, full ROM, capillary refill normal, no calf tenderness and no pedal edema Neuro: COMMON NORMALS: patient oriented x3, moves all extremities, no focal motor deficits and no sensory deficits noted SENSORIUM/ORIENTATION: Yes alert CRANIAL NERVES: Yes CN normal except as noted Psych: COMMON NORMALS: mental status grossly normal, denies homicidal ideation and denies suicidal ideation Skin: COMMON NORMALS: no rashes or lesions noted, turgor normal and no petechiae GENERAL SKIN EXAM: no rashes or lesions noted and turgor normal Course Reevaluation(s): Reevaluation #1: Patient remains clinically stable she is being admitted to the hospital for further evaluation of this positive blood culture. Time: 16:14 Consultations: Consultation #1: Discussed with Dr. Zaman who will evaluate the patient Time: 15:25 Vital Signs: Vital signs: Vital Signs Pulse Rate 84 10/20/23 14:00 Respiratory Rate 16 10/20/23 14:00 Blood Pressure 135/107 10/20/23 14:00 Pulse Oximetry 95 10/20/23 14:00 Oxygen Delivery Me thod Room Air 10/20/23 14:00 [facility] - General Adult Medical Decision Making This 48-year-old lady who is currently domiciled in her car was called back to the emergency department because of positive blood cultures growing Enterococcus faecalis in 2 of 4 bottles. She has had several emergency department visits over the past several weeks. No history of IV drug use or potential risk factors other than she does have a pacemaker in this situ. Clinical exam was unrevealing for any findings skin rash needle ferguson, other obvious signs of potential infection. She has abdominal pain but had a negative CT scan yesterday. Her chest x-ray was also reassuring. Laboratories obtained today did not reveal any leukocytosis but her CRP was markedly elevated as well as her sed rate was moderately elevated. Unclear as to the etiology of her positive blood culture however given the nature of this finding the evaluation will have to be continued in an observation and/or inpatient status to include echocardiogram-particularly in light of her social determinant that precludes outpatient workup in this case. Medical Records I reviewed the patient's medical records. Reviewed ED records from the last 48 hours. Imaging was nonspecific for any acute findings yesterday this included her CT of abdomen and pelvis as well as a chest x-ray. Lab Data I reviewed the patient's lab results. 10/20/23 12:51 10/20/23 12:22 Laboratory Results WBC 5.03 10^3/uL (3.29-11.43) 10/20/23 12:51 RBC 3.66 10^6/uL (3.85-5.65) L 10/20/23 12:51 Hgb 11.00 g/dL (11.27-16.99) L 10/20/23 12:51 Hct 35.2 % (36-47) L 10/20/23 12:51 MCV 96.2 fl (85-98) 10/20/23 12:51 MCH 30.1 pg (27-33) 10/20/23 12:51 MCHC 31.3 g/dL (30-55) 10/20/23 12:51 RDW 13.8 % (12.1-15.1) 10/20/23 12:51 Plt Count 149 10^3/cmm (157-399) L 10/20/23 12:51 MPV 10.7 fL (7.4-10.4) H 10/20/23 12:51 Neut % (Auto) 70.3 % 10/20/23 12:51 Lymph % (Auto) 21.3 % 10/20/23 12:51 [place] % (Auto) 5.0 % 10/20/23 12:51 Eos % (Auto) 2.4 % 10/20/23 12:51 Baso % (Auto) 0.6 % 10/20/23 12:51 Neut # (Auto) 3.54 10^3/uL (1.8-7.7) 10/20/23 12:51 Lymph # (Auto) 1.1 10^3/uL (0.8-4.8) 10/20/23 12:51 [place] # (Auto) 0.3 10^3/uL (0.2-0.9) 10/20/23 12:51 Eos # (Auto) 0.1 10^3/uL (0.0-0.8) 10/20/23 12:51 Baso # (Auto) 0.0 10^3/uL (0.0-0.1) 10/20/23 12:51 Nucleated RBC % (auto) 0 % 10/20/23 12:51 Nucleated RBCs # 0.0 /100WBC 10/20/23 12:51 ESR 23 mm/hr (0-15) H 10/20/23 12:51 Sodium 144 mmol/L (136-145) 10/20/23 12:22 Potassium 3.2 mmol/L (3.5-5.1) L 10/20/23 12:22 Chloride 109 mmol/L (98-107) H 10/20/23 12:22 Carbon Dioxide 25 mmol/L (22-29) 10/20/23 12:22 Anion Gap 13.2 (5-19) 10/20/23 12:22 BUN 5 mg/dL (6-20) L 10/20/23 12:22 Creatinine 0.4 mg/dL (0.5-0.9) L 10/20/23 12:22 GFR Calculation 169.7 mL/min (90-130) H 10/20/23 12:22 Glucose 123 mg/dL (65-115) H 10/20/23 12:22 Calculated Osmolality 297 mOsm/kg (285-295) H 10/20/23 12:22 Lactic Acid 1.4 mmol/L (0.5-2.2) 10/20/23 12:22 Calcium 8.3 mg/dL (8.5-10.5) L 10/20/23 12:22 Magnesium 1.5 mg/dL (1.7-2.3) L 10/20/23 12:22 Total Bilirubin 0.6 mg/dL (0.15-1.2) 10/20/23 12:22 AST 26 U/L (0-32) 10/20/23 12:22 ALT 14 U/L (0-33) 10/20/23 12:22 Alkaline Phosphatase 87 U/L (35-105) 10/20/23 12:22 C-Reactive Protein 28.2 mg/L (0.0-4.9) H 10/20/23 12:22 Total Protein 6.6 g/dL (6.6-8.7) 10/20/23 12:22 Albumin 3.1 g/dL (3.5-5.2) L 10/20/23 12:22 Globulin 3.5 g/dL (1.3-4.6) 10/20/23 12:22 HCG, Qual Negative (Negative) 10/20/23 14:54 Urine Color Yellow (Yellow) 10/20/23 14:54 Urine Appearance Clear (CLEAR) 10/20/23 14:54 Urine pH 8.0 (5-7) A 10/20/23 14:54 Ur Specific [place] 1.010 (1.005-1.030) 10/20/23 14:54 Urine Protein Negative (Negative) 10/20/23 14:54 Urine Glucose (UA) Negative (Normal) 10/20/23 14:54 Urine Ketones Negative (Negative) 10/20/23 14:54 Urine Blood Negative (Negative) 10/20/23 14:54 Urine Nitrate Negative (Negative) 10/20/23 14:54 Urine Bilirubin Negative (Negative) 10/20/23 14:54 Urine Urobilinogen 2.0 mg/dL (Negative) H 10/20/23 14:54 Ur Leukocyte Esterase Negative (Negative) 10/20/23 14:54 Amorphous Sediment Not Reportable 10/20/23 14:54 Urine Opiates Screen Negative ng/mL (Negative) 10/20/23 14:54 Ur Barbiturates Screen Negative ng/mL (Negative) 10/20/23 14:54 Ur Phencyclidine Scrn Negative ng/mL (Negative) 10/20/23 14:54 Ur Amphetamines Screen Negative ng/mL (Negative) 10/20/23 14:54 U Benzodiazepines Scrn Negative ng/mL (Negative) 10/20/23 14:54 Urine Cocaine Screen Negative ng/mL (Negative) 10/20/23 14:54 U Marijuana (THC) Screen Negative ng/mL (Negative) 10/20/23 14:54 No radiology studies performed this visit Discharge Plan Discharge Patient Disposition: Placed in Observation Clinical Impression: Bacteremia due to Enterococcus Condition: Stable Prescriptions: No Action zinc sulfate 50 mg zinc (220 mg) capsule 50 mg PO DAILY amitriptyline 75 mg tablet 75 mg PO BEDTIME furosemide 40 mg tablet See Rx Instructions .ROUTE .COMPLEX Rx Instructions: TAKE 2 TABLETS BY MOUTH EVERY MORNING AND ONE EVERY DAY AFTER LUNCH doxepin 10 mg capsule 10 mg PO BEDTIME morphine 30 mg tablet extended release 30 mg PO Q12H Ventolin HFA 90 mcg/actuation HFA aerosol inhaler 2 puff INHALATION Q6H PRN (Reason: Shortness Of Breath) Nurtec ODT 75 mg tablet,disintegrating 75 mg PO DAILY PRN (Reason: Migraine Headache) Xopenex HFA 45 mcg/actuation HFA aerosol inhaler 2 inh inhalation Q6H PRN (Reason: Shortness Of Breath) insulin glargine [Lantus U-100 Insulin] 100 unit/mL solution See Rx Instructions .ROUTE .COMPLEX Hold Instructions: Resume on 08/26/23. hold till PCP follow up Rx Instructions: INJECT 10 UNITS IN THE MORNING AND 40 UNITS IN THE EVENING. scopolamine base 1 mg over 3 days patch 3 day 1 patch topical Q3D tenofovir disoproxil fumarate 300 mg tablet 300 mg PO DAILY nifedipine 30 mg tablet extended release 24hr 30 mg PO DAILY 30 Days Qty: 30 0RF lamotrigine 200 mg tablet 200 mg PO DAILY 30 Days Qty: 30 0RF tizanidine 4 mg tablet 4 mg PO Q6H PRN (Reason: Spasms) 10 Days Qty: 30 0RF sumatriptan succinate 50 mg tablet See Rx Instructions .ROUTE .COMPLEX 10 Days Qty: 10 0RF Rx Instructions: MAY REPEAT IN TWO HOURS, MAX OF 200MG IN 24 HOURS spironolactone 25 mg tablet 25 mg PO BID 30 Days Qty: 30 0RF levothyroxine 50 mcg tablet 50 mcg PO QAM 30 Days Qty: 30 2RF pantoprazole 40 mg tablet,delayed release (DR/EC) 40 mg PO BID Qty: 60 0RF gabapentin 300 mg capsule 300 mg PO BEDTIME 30 Days Qty: 30 0RF levetiracetam 750 mg tablet 750 mg PO BID 30 Days Qty: 60 0RF oxycodone 30 mg tablet 30 mg PO Q4H PRN (Reason: Pain) 2 Days Qty: 12 0RF metoclopramide HCl [Reglan] 10 mg tablet 10 mg PO Q6H PRN (Reason: nausea and vomiting) 10 Days Qty: 30 0RF lactulose 10 gram/15 mL solution 90 ml PO TID 30 Days Qty: 8100 0RF Creon 3,000-9,500- 15,000 unit capsule,delayed release(DR/EC) 1 cap PO TID 30 Days Qty: 30 0RF Anoro Ellipta 62.5-25 mcg/actuation blister with device 1 inh INHALATION DAILY 30 Days Qty: 30 0RF potassium chloride 20 mEq tablet extended release 20 meq PO DAILY 15 Days Qty: 15 0RF furosemide [Lasix] 20 mg tablet 20 mg PO DAILY PRN (Reason: edema) Qty: 14 0RF Referrals: Francisco Mckinley DO [Primary Care Provider] - Coding Level of Care Code ED Marketing Program Manager for [facility]
[2023-10-20] MEDS: lactated ringers 1,000 ML 999 ML IV (12:40)
[2023-10-20 12:50] LABS: Lactic Sepsis W/Reflex 1.4 mmol/L (0.5-2.2)
[2023-10-20 12:51] LABS: Alanine Aminotransferase 14 U/L (0-33); Albumin Level 3.1 g/dL (3.5-5.2); Alkaline Phosphatase 87 U/L (35-105); Anion Gap 13.2 (5-19); Aspartate Amino Transferase 26 U/L (0-32); Blood Urea Nitrogen 5 mg/dL (6-20); C Reactive Protein 28.2 mg/L (0.0-4.9); Calcium 8.3 mg/dL (8.5-10.5); Carbon Dioxide 25 mmol/L (22-29); Chloride 109 mmol/L (98-107); Globulin 3.5 g/dL (1.3-4.6); Glomerular Filtration Rate 169.7 mL/min (90-130); Glucose 123 mg/dL (65-115); Osmolality Calculated 297 mOsm/kg (285-295); Potassium 3.2 mmol/L (3.5-5.1); Sodium 144 mmol/L (136-145); Total Bilirubin 0.6 mg/dL (0.15-1.2); Total Protein 6.6 g/dL (6.6-8.7)
[2023-10-20 12:53] LABS: Creatinine Clr Calc Pharmacy 220.1295
[2023-10-20 13:01] LABS: Basophils % 0.6 %; Eosinophils # 0.1 10^3/uL (0.0-0.8); Eosinophils % 2.4 %; Hematocrit 35.2 % (36-47); Lymphocytes # 1.1 10^3/uL (0.8-4.8); Lymphocytes % 21.3 %; Mean Corpuscular HGB Conc 31.3 g/dL (30-55); Mean Corpuscular Hemoglobin 30.1 pg (27-33); Mean Corpuscular Volume 96.2 fl (85-98); Mean Platelet Volume 10.7 fL (7.4-10.4); Monocytes # 0.3 10^3/uL (0.2-0.9); Neutrophils # 3.54 10^3/uL (1.8-7.7); Neutrophils % 70.3 %; Nucleated Red Blood Cells % 0 %; Platelet Count 149 10^3/cmm (157-399); Red Blood Count 3.66 10^6/uL (3.85-5.65); Red Cell Distribution Width 13.8 % (12.1-15.1); White Blood Count 5.03 10^3/uL (3.29-11.43)
[2023-10-20 13:10] LABS: Erythrocyte Sedimentation Rate 23 mm/hr (0-15)
[2023-10-20] MEDS: haloperidol inj 5 mg/mL INJ 1 mL IVP (13:29)
[2023-10-20 14:59] LABS: Charge for UA Resulting for Rev
[2023-10-20 15:02] LABS: Bilirubin Urine Negative (Negative); Blood Urine Negative (Negative); Glucose Urine UA Negative (Normal); Ketones Urine Negative (Negative); Leukocyte Esterase Urine Negative (Negative); Nitrate Urine Negative (Negative); Protein Urine Negative (Negative); Urine Appearance Clear (CLEAR); Urine Color Yellow (Yellow)
[2023-10-20 15:03] LABS: HCG Qualitative Urine. Negative (Negative)
[2023-10-20 15:26] LABS: Magnesium 1.5 mg/dL (1.7-2.3)
[2023-10-20 15:50] LABS: Amphetamines Screen Urine Negative (Negative); Barbiturates Screen Urine Negative (Negative); Benzodiazepines Screen Urine Negative (Negative); Cocaine Screen Urine Negative (Negative); Opiate Screen Urine Negative (Negative); PCP Screen Urine Negative (Negative); THC Screen Urine Negative (Negative)
--- NOTE | 2023-10-20 16:22 | PM.HP ---
Providers/Chief Complaint Primary Care Provider: Francisco Mckinley DO Chief Complaint: was called back due to blood work History of Present Illness Maribell Foreman is a 48 year old female with a past medical history of pulmonary embolism, off anticoagulant therapy, history of ischemic bowel requiring hemicolectomy, peptic ulcer disease, history of chronic hepatitis B, history of drug abuse, history of liver cirrhosis, history of hypothyroidism, type 2 diabetes mellitus, COPD, symptomatic bradycardia requiring pacemaker placement, orthostatic hypotension, hypertension, history of hepatic encephalopathy, recent history of methamphetamine use, history of seizure disorder, who presents to [facility] due to diffuse pain, and Enterococcus blood cultures. Currently patient is alert oriented x 4, following all commands, her complaint is that she hurts all over, she does not feel well, no fevers, chills, the reason that she is here in the hospital is ER called her back because of positive blood cultures. She tells me that currently she is living out of her car, she has an ankle bracelet on, she is not exactly forthcoming of the reason of her current social situation, she denies any IV drug use, denies any drug use, does report smoking cigarettes, does report vaping, denies any alcohol use, denies a history of HIV denies a history of hepatitis C, does report history of hepatitis B. She reports fatigue, malaise, no fevers, no chills, does report nausea and vomiting, she tells me that yesterday she had episode of significant vomiting, with a slight amount of blood in it, none since then, she tells me that her abdomen hurts her all over, denies any dysuria, no hematuria, does report bilateral flank pain, does report back pain, but reports pain all over, no headache, no blurry vision, no chest pain, no palpitations, denies any shortness of breath, does report some superficial breaks in her skin of her right arm, from scratching, denies any diarrhea, r she has had 3 ER visits, in the last month, to them for abdominal pain, her last ER visit, 10/19/2023, she is complaining of abdominal pain, CT scan head no acute abnormalities, however 204 blood cultures positive for Enterococcus species Review of Systems Const: Reports: body aches, fatigue and malaise; Denies: fever(s) or chills Card: Denies: chest pain Resp: Denies: dyspnea GI: Reports: abdominal pain and nausea : Reports: flank pain; Denies: difficulty voiding Musc: Reports: back pain and joint pain Endo: Denies: polyuria Medications/Allergies Home Medications Medication Instructions Recorded Confirmed Last Taken Type insulin glargine 100 unit/mL See Rx Instructions .Route .COMPLEX 11/23/22 10/19/23 10/18/23 History subcutaneous solution (Lantus U-100 Insulin) scopolamine base 1 mg over 3 days 1 patch topical Q3D 04/27/23 10/19/23 Unknown History transdermal patch tenofovir disoproxil fumarate 300 300 mg PO DAILY 04/27/23 10/19/23 10/18/23 History mg tablet zinc sulfate 50 mg zinc (220 mg) 50 mg PO DAILY 08/15/23 10/19/23 10/18/23 History capsule gabapentin 300 mg capsule 300 mg PO BEDTIME 30 days #30 caps 08/19/23 10/19/23 10/18/23 Rx lactulose 10 gram/15 mL oral 90 ml PO TID 30 days #8,100 mL 08/19/23 10/19/23 10/18/23 Rx solution lamotrigine 200 mg tablet 200 mg PO DAILY 30 days #30 tabs 08/19/23 10/19/23 10/18/23 Rx levetiracetam 750 mg tablet 750 mg PO BID 30 days #60 tabs 08/19/23 10/19/23 10/18/23 Rx levothyroxine 50 mcg tablet 50 mcg PO QAM 30 days #30 tabs 08/19/23 10/19/23 10/18/23 Rx bezrzx-iibsihrc-dvezuep 1 cap PO TID 30 days #30 caps 08/19/23 10/19/23 10/18/23 Rx 3,000-9,500-15,000 unit capsule, delayed rel (Creon) metoclopramide HCl 10 mg tablet 10 mg PO Q6H PRN nausea and 08/19/23 10/19/23 Unknown Rx (Reglan) vomiting 10 days #30 tabs nifedipine 30 mg tablet,extended 30 mg PO DAILY 30 days #30 tabs 08/19/23 10/19/23 10/18/23 Rx release 24 hr oxycodone 30 mg tablet 30 mg PO Q4H PRN Pain 2 days #12 08/19/23 10/19/23 Unknown Rx tabs pantoprazole 40 mg tablet,delayed 40 mg PO BID #60 tabs 08/19/23 10/19/23 10/18/23 Rx release potassium chloride 20 mEq 20 meq PO DAILY 15 days #15 tabs 08/19/23 10/19/23 10/18/23 Rx tablet,extended release spironolactone 25 mg tablet 25 mg PO BID 30 days #30 tabs 08/19/23 10/19/23 10/18/23 Rx sumatriptan succinate 50 mg tablet See Rx Instructions .Route 08/19/23 10/19/23 Unknown Rx .COMPLEX 10 days #10 tabs tizanidine 4 mg tablet 4 mg PO Q6H PRN Spasms 10 days #30 08/19/23 10/19/23 Unknown Rx tabs umeclidinium 62.5 mcg-vilanterol 1 inh inhalation DAILY 30 days #30 08/19/23 10/19/23 10/18/23 Rx 25 mcg/actuation powdr for ea inhalation (Anoro Ellipta) albuterol sulfate 90 mcg/actuation 2 puff inhalation Q6H PRN 10/19/23 10/19/23 Unknown History aerosol inhaler (Ventolin HFA) Shortness Of Breath amitriptyline 75 mg tablet 75 mg PO BEDTIME 10/19/23 10/19/23 10/18/23 History doxepin 10 mg capsule 10 mg PO BEDTIME 10/19/23 10/19/23 10/18/23 History furosemide 20 mg tablet (Lasix) 20 mg PO DAILY PRN edema #14 tabs 10/19/23 10/19/23 Unknown Rx furosemide 40 mg tablet See Rx Instructions .Route .COMPLEX 10/19/23 10/19/23 10/18/23 History levalbuterol tartrate 45 2 inh inhalation Q6H PRN Shortness 10/19/23 10/19/23 Unknown History mcg/actuation aerosol inhaler Of Breath (Xopenex HFA) morphine 30 mg tablet,extended 30 mg PO Q12H 10/19/23 10/19/23 10/18/23 History release rimegepant 75 mg disintegrating 75 mg PO DAILY PRN Migraine 10/19/23 10/19/23 Unknown History tablet (Nurtec ODT) Headache Allergies Allergy/AdvReac Type Severity Reaction Status Date / Time codeine Allergy Unknown Unknown Verified 09/23/23 14:44 aspirin Allergy ALGY-Hives Verified 09/23/23 14:44 diphenhydramine Allergy ADR-Muscle Verified 09/23/23 14:44 [From Benadryl] Pain Sulfa (Sulfonamide Allergy ALGY-Swell Verified 09/23/23 14:44 Antibiotics) Lip/Tongue/Throat PFSH Acute PFSH: Medical History Hypokalemia 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) use of opiate analgesic Pain management contract signed Metabolic encephalopathy SSS (sick sinus syndrome) Presence of permanent cardiac pacemaker Seizure disorder Tobacco dependency Hypothyroidism Accidental fentanyl overdose Overdose Cardiac arrest COPD (chronic obstructive pulmonary disease) Chronically on 3 L of oxygen Smoker Thrombocytopenia Bilateral pulmonary embolism Hepatitis B Pulmonary embolism Nicotine dependence, cigarettes, with unspecified nicotine-induced disorders Chronic hepatitis B Chronic abdominal pain Chronic hip pain Leg cramps Stomach cancer Pelvic inflammatory disease Diabetes mellitus Hypertension Encephalopathy Cirrhosis Gastroesophageal reflux GI bleeding Surgical History H/O right hemicolectomy History of right hemicolectomy H/O tubal ligation History of laparotomy History of hysterectomy Family History Mother Diabetes Father CAD (coronary artery disease) Other Cancer Social History Smoking and tobacco/nicotine status: former use of tobacco/nicotine Quit status (tobacco/nicotine): has quit using Year quit tobacco: 2020 Former quit date comment: 2ppd x 26 year Hx Alcohol intake: never Substance/Drug Use: never Vitals/I&O/Wt Last Vital Signs Pulse 84 10/20/23 14:00 Resp 16 10/20/23 14:00 BP 135/107 10/20/23 14:00 Pulse Ox 95 10/20/23 14:00 O2 Del Method Room Air 10/20/23 14:00 Weight last 48 hrs Weight 95.254 kg Physical Exam Const: COMMON NORMALS: no acute distress and patient oriented x3 HENMT: COMMON NORMALS: normocephalic HEAD & SCALP: normocephalic Eye: COMMON NORMALS: Equal, round and reactive pupils present Neck/C-Spine: COMMON NORMALS: no JVD Lymph: LYMPHATIC: no lymphadenopathy noted Resp: COMMON NORMALS: normal respiratory effort, No retractions, No use of accessory muscles and clear to auscultation bilaterally AUSCULTATION: clear to auscultation bilaterally Cardio: COMMON NORMALS: regular rate, regular rhythm, S1 normal heart sound present and S2 normal heart sound present RATE: regular rate RHYTHM: regular rhythm HEART SOUNDS: S1 normal heart sound present and S2 normal heart sound present GI: COMMON NORMALS: Normal to inspection, nondistended, normoactive bowel sounds present and Soft to palpation OTHER: Has diffuse abdominal tenderness, no guarding, no rebound, no rigidity Extremity: COMMON NORMALS: no calf tenderness and no pedal edema Neuro: COMMON NORMALS: patient oriented x3, CN's II-XII intact bilaterally and moves all extremities Psych: COMMON NORMALS: mental status grossly normal Data 10/20/23 12:51 10/20/23 12:22 Micro: Microbiology 10/20/23 12:51 Blood Culture - Preliminary Blood SPECIMEN COLLECTED 10/20/23 12:23 Blood Culture - Preliminary Blood SPECIMEN COLLECTED A&P Assessment and plan (1) Bacteremia due to Enterococcus: Plan Enterococcus faecalis bacteremia ? 2/4 blood cultures positive -Her last ER visit UA was within normal limits -Abdominal CT -FINDINGS: Liver: Mildly nodular liver contour. Negative for mass. Subcentimeter cyst in the inferior right hepatic lobe stable from comparison. Gallbladder and biliary ducts: Normal. No calcified stones. No ductal dilation. Pancreas: Normal. No ductal dilation. Spleen: Mild severity splenomegaly redemonstrated. Adrenal glands: Normal. No mass. Kidneys and ureters: Punctate nonobstructing left kidney lower pole stone. Negative for hydronephrosis. Negative for perinephric inflammation. Stomach and bowel: Unremarkable. No obstruction. No mucosal thickening. Appendix: No evidence of appendicitis. Intraperitoneal space: Unremarkable. No free air. No significant fluid collection. Vasculature: Venous splenorenal shunt is noted. Plaques of the abdominal aorta wall. Negative for aneurysm or dissection. Lymph nodes: Unremarkable. No enlarged lymph nodes. Urinary bladder: Unremarkable as visualized. Reproductive: Hysterectomy. Bones/joints: Unremarkable. No acute fracture. Soft tissues: Umbilical hernia without complication. CT/CT abdomen pelvis w con* [id number] IMPRESSION: Negative for acute abdominopelvic pathology. -Chest x-ray XR/XR chest 1V portable [id number] Impression: 1. Clearing of bilateral basilar opacities. 2. Atherosclerosis and permanent pacemaker. -Source unclear? -Does complain of abdominal pain, but also has diffuse pain all over, no fluid wave seen, could be spontaneous bacterial peritonitis? ? Doubt UTI or pyelonephritis given CT scan findings UA within normal limits ? She does have pacemaker, possible pacemaker lead infection? ? She does have a history of drug use in the past, current urine toxicology screen within normal limits, could be subacute bacterial endocarditis? ? Plan ? Started on vancomycin -Continue Zosyn ? Follow repeat blood cultures -Abdominal ultrasound to evaluate for ascites ? Cardiac echo -Based upon workup she might require transesophageal echocardiogram -Follow inflammatory markers Follow repeat blood cultures ? Continue to monitor closely ? Full code Lovenox for DVT prophylaxis Pulmonary embolism ? Off anticoagulation therapy History of ischemic bowel -Requiring hemicolectomy Peptic ulcer disease History of chronic hepatitis B, continue home medication History of drug abuse, follow urine toxicology screen, serum drug screen History of liver cirrhosis ? Continue home lactulose ? Continue home spironolactone Continue home Lasix History of hypothyroidism continue levothyroxine History of type 2 diabetes mellitus l ow-dose sliding scale History of anxiety ? Continue doxepin -Continue gabapentin -Continue Lamictal Seizure disorder, continue medications as above including Keppra CODE STATUS, patient is DNR/DNI, confirmed with this multiple times, nursing staff at bedside Lovenox for DVT prophylaxis Protonix for GI prophylaxis Reviewed prior charts, prior hospitalizations, spoke to ER provider, spoke to nursing staff, spoke to patient Attestations Medical Necessity Statement*: Patient requires hospitalization, inpatient, manage 2 minutes, for Enterococcus faecalis bacteremia, source unknown Diagnoses Bacteremia due to Enterococcus R78.81; B95.2
[2023-10-20 16:36] LABS: Ammonia 84 umol/L (11-51)
[2023-10-20 16:39] LABS: Gamma Glutamyl Transferase 19 U/L (5-36); Lactate Dehydrogenase 240 U/L (135-214); Lipase 14 U/L (13-60)
[2023-10-20 16:42] LABS: Alcohol Level < 10 mg/dL (0-10)
[2023-10-20 16:54] LABS: HIV 1 & 2 Antibody Non-Reactive (Non-Reactiv); HIV 1 & 2 Antigen Non-Reactive (Non-Reactiv)
[2023-10-20 16:55] LABS: Hepatitis A Antibody IgM Non-Reactive (Nonreactive); Hepatitis B Core IgM Non-Reactive (Nonreactive); Hepatitis C Virus Antibody Reactive (Nonreactive)
[2023-10-20 17:26] LABS: INR 1.13 (0.8-1.2)
[2023-10-20 17:34] LABS: Hepatitis B Surface Antigen Reactive (Nonreactive)
[2023-10-20 18:36] LABS: Chol HDL Ratio 2.51 mg/dL (0.0-4.40); Cholesterol 236 mg/dL (0-200); HDL Cholesterol 94 mg/dL (60-100); LDL Cholesterol Calculated 123 mg/dL (50-129); LDL HDL Ratio 1.31 RATIO (0.00-3.22); Thyroid Stimulating Hormone 2.22 uIU/mL (0.27-4.20); Triglycerides 95 mg/dL (0-150)
[2023-10-20] MEDS: naloxone 0.4 mg/ml SDV 0.1 MG IVP ×2 (19:01→19:05)
[2023-10-20] MEDS: naloxone 0.4 mg/ml SDV IVP (19:13)
[2023-10-20 19:18] LABS: ABG PCO2 31.1 mmHg (35-45); ABG PH Result 7.54 (7.35-7.45); Alveolar-Arterial Oxygen Gradi 4.4 mmHg (5-10); Arterial Blood Gas Hematocrit 35.1 % (37-47); Base Excess ABG 4.6 mmol/L (-2.0-2.0); Blood Gas Allen Test Pos; Blood Gas Sample Site Radial, right; Blood Gas Sample Type Arterial; Carboxyhemoglobin 2.2 %THgb (0.4-20.1); HCO3 ABG 26.8 mmol/L (22-26); HGB O2 Sat 95.2 % (95-100); Ionized Calcium Level - ABG 1.1 mmol/L (1.1-1.4); Methemoglobin 0.2 % (0.4-1.5); Oxygen Device ROOM AIR; Oxygen Saturation ABG 97.6; PO2 ABG 75.8 mmHg (80.0-100.0); Potassium Level - ABG 3.1 mmol/L (3.5-5.0); Total Hemoglobin 11.4 g/dL (12-16)
[2023-10-20 19:21] LABS: Glucose Point of Care 187 mg/dL (70-110)
[2023-10-20] MEDS: levETIRAcetam 500 mg Tablet 750 MG PO (19:47)
[2023-10-20] MEDS: insulin lispro 100 unit/1 mL SUBCUT (19:47)
[2023-10-20] MEDS: piperacillin-tazobactam 3.375 GM in sodium chloride 0.9% (plus) 50 ML IV (19:48)
[2023-10-20] MEDS: spironolactone 25 mg Tablet PO (19:48)
--- NOTE | 2023-10-20 19:58 | PC.NURSE ---
1830 Pt walked to bathroom with jamie serrano, which I thought was her cell phone. When she came back I continued her admission, when she got very lethargic and was mumbling her answers. Earlier when she was asked she said she didnt have any meds, cigarettes, lighters, needles and or drugs. When she got to where she couldnt answer any questions I checked her pupils and they were pinpoint. Reported to my charge nurse my findings and patient condition. I explained to charge nurse that pt had taken black case with her. Pt also had back pack at bedside where she had placed her black case.
[2023-10-20] MEDS: amitriptyline 25 mg Tablet 75 MG PO (20:52)
[2023-10-20] MEDS: doxepin 10 mg Capsule PO (20:52)
[2023-10-20] MEDS: gabapentin 300 mg Capsule PO (20:52)
[2023-10-20] MEDS: pantoprazole 40 mg SDV IVP (20:53)
[2023-10-20] MEDS: enoxaparin 40 mg/0.4 mL Syringe SUBCUT (20:53)
[2023-10-20] MEDS: oxyCODONE 5 mg IR Tab/Cap 10 MG PO (21:00)
[2023-10-20 21:07] LABS: Glucose Point of Care 115 mg/dL (70-110)
[2023-10-20 21:54] LABS: Estmated Average Glucose 100; Hemoglobin A1C 5.1 % (4.0-6.0)
[2023-10-20] MEDS: vancomycin 2,000 MG/400 ML PIGGYBACK 200 MG IV (22:01)
[2023-10-21] VITALS (11 sets, daily range): BP systolic 121–165; BP diastolic 74–96; PULSE 63–113; RESP 16–17; TEMP 36.5–36.9; O2SAT 90–95
[2023-10-21] MEDS: piperacillin-tazobactam 3.375 GM in sodium chloride 0.9% (plus) 50 ML IV ×3 (01:12→18:12)
[2023-10-21 04:16] LABS: Basophils % 0.5 %; Eosinophils # 0.2 10^3/uL (0.0-0.8); Eosinophils % 2.8 %; Hematocrit 34.3 % (36-47); Lymphocytes # 1.9 10^3/uL (0.8-4.8); Lymphocytes % 23.7 %; Mean Corpuscular HGB Conc 33.2 g/dL (30-55); Mean Corpuscular Hemoglobin 30.2 pg (27-33); Mean Corpuscular Volume 90.7 fl (85-98); Mean Platelet Volume 10.8 fL (7.4-10.4); Monocytes # 0.8 10^3/uL (0.2-0.9); Monocytes % 9.3 %; Neutrophils # 5.14 10^3/uL (1.8-7.7); Neutrophils % 63.5 %; Nucleated Red Blood Cells % 0 %; Platelet Count 142 10^3/cmm (157-399); Red Blood Count 3.78 10^6/uL (3.85-5.65); Red Cell Distribution Width 13.8 % (12.1-15.1)
[2023-10-21 04:36] LABS: Alanine Aminotransferase 12 U/L (0-33); Albumin Level 2.8 g/dL (3.5-5.2); Alkaline Phosphatase 85 U/L (35-105); Aspartate Amino Transferase 24 U/L (0-32); Blood Urea Nitrogen 6 mg/dL (6-20); C Reactive Protein 24.1 mg/L (0.0-4.9); Calcium 8.1 mg/dL (8.5-10.5); Carbon Dioxide 24 mmol/L (22-29); Chloride 106 mmol/L (98-107); Creatinine Clr Calc Pharmacy 297.7841; Globulin 3.4 g/dL (1.3-4.6); Glomerular Filtration Rate 169.7 mL/min (90-130); Glucose 103 mg/dL (65-115); Magnesium 1.5 mg/dL (1.7-2.3); Osmolality Calculated 290 mOsm/kg (285-295); Phosphorus 3.1 mg/dL (2.5-4.5); Sodium 141 mmol/L (136-145); Total Bilirubin 0.8 mg/dL (0.15-1.2); Total Protein 6.2 g/dL (6.6-8.7)
[2023-10-21 04:45] LABS: Procalcitonin 5.09 ng/mL (0-0.5)
[2023-10-21 04:54] LABS: Ammonia 103 umol/L (11-51)
--- NOTE | 2023-10-21 06:00 | USCV_ITS ---
Maribell Foreman Age: 48 Gender: F : 1975 Exam Date: 10/21/2023 08:27 Ordering Phys: Neftali Barrera MD Technologist: Obdulio Cast Exam Location: [facility] [place] Indication: enterococcus bacteremia BP: 118 / 90 HR: 67 Rhythm: Sinus Technical Quality: Adequate MEASUREMENTS (Male / Female) Normal Values 2D ECHO LV Diastolic Diameter PLAX 3.4 cm 4.2 - 5.9 / 3.9 - 5.3 cm IVS Diastolic Thickness 1.9 cm 0.6 - 1.0 / 0.6 - 0.9 cm IVS Systolic Thickness 2.9 cm LVPW Diastolic Thickness 2.3 cm 0.6 - 1.0 / 0.6 - 0.9 cm LVPW Systolic Thickness 2.9 cm LVOT Diameter 2.2 cm LV Ejection Fraction 2D Teich 94.2 % LV Ejection Fraction MOD 4C 71.0 % LV Ejection Fraction MOD 2C 83.7 % LV Ejection Fraction 2C AL 85.7 % LA Diameter 4.9 cm RA Systolic Volume 4C AL 40.1 ml RA Systolic Volume 4C MOD 38.2 ml LA Sys Volume AL 75.9 cm cubed LA Sys Volume Index AL 31.6 cm cubed/m squared Aorta at Sinotubular Diameter 2.8 cm IVC Diameter 3.0 cm M-MODE LA Ao Ratio MM 1.5 AV Cusp Separation MM 2.2 cm DOPPLER AV Peak Velocity 122.3 cm/s LVOT Peak Velocity 79.0 cm/s AV Area Cont Eq vti 3.5 cm squared AV Area Cont Eq pk 2.4 cm squared MV Peak Velocity 158.0 cm/s MV Area PHT 2.7 cm squared Mitral E to A Ratio 1.2 TV Peak Velocity 249.5 cm/s TR Peak Velocity 261.0 cm/s TR Peak Gradient 27.2 mmHg TR Mean Velocity 190.0 cm/s TR Mean Gradient 15.4 mmHg TR Velocity Time Integral 75.4 cm PV Peak Velocity 88.0 cm/s RV Ejection Time 0.4 s FINDINGS Left Ventricle Normal left ventricular size, systolic function and wall thickness, with no regional wall motion abnormalities. Normal diastolic function. Left ventricular ejection fraction is estimated at 60 %. Right Ventricle Normal right ventricular size and systolic function. Normal right ventricular systolic pressure. Right Atrium The right atrium is normal in size. Left Atrium Mildly increased left atrial size. Mitral Valve The mitral valve is structurally normal however there is a suspicious area of echodensity on the posterior leaflet. This does not have the classic appearance of a vegetation but is suspicious. There is associated moderate and perhaps moderately severe mitral regurgitation. Aortic Valve Structurally normal aortic valve without significant sclerosis or stenosis. There is no aortic regurgitation. Tricuspid Valve Structurally normal tricuspid valve. Trace tricuspid valve regurgitation. Pulmonic Valve Pulmonic valve not well visualized. Pericardium Normal pericardium without effusion. Aorta Normal ascending aorta dimension. IVC The inferior vena cava appears normal. CONCLUSIONS Normal left ventricular size, systolic function and wall thickness, with no regional wall motion abnormalities. Normal diastolic function. Left ventricular ejection fraction is estimated at 60 %. Mildly increased left atrial size. The mitral valve is structurally normal however there is a suspicious area of echodensity on the posterior leaflet. This does not have the classic appearance of a vegetation but is suspicious. There is associated moderate and perhaps moderately severe mitral regurgitation. A transesophageal echo would be indicated to further assess the posterior leaflet of the mitral valve. Similar findings were noted on the previous echo dictated 05/08/2022. Dr. Luis Marks MD (Electronically Signed) Final Date: 21 October 2023 14:29 S
--- NOTE | 2023-10-21 06:00 | USR_ITS ---
PROCEDURE INFORMATION: Exam: US Abdomen, Limited; Right Upper Quadrant Exam date and time: 10/21/2023 8:59 AM Age: 48 years old Clinical indication: Screening exam; Other: Liver, ascites. Prior surgery; Surgery date: 6+ months; Surgery type: Patient states she has had stomach surgery; Additional info: Liver, ascites. Patient just ate. Nurse notified to have patient be npo at midnight. Will TECHNIQUE: Imaging protocol: Real time ultrasound of the abdomen with image documentation. Limited exam focused on the right upper quadrant. COMPARISON: US abdomen complete* [id number] 10/18/2020 6:19 AM FINDINGS: Liver: There is nodular contour of the liver consistent with liver cirrhosis. No focal hepatic lesion. Heterogeneous echotexture of the liver. Gallbladder: There is gallbladder wall thickening measuring 4 mm. Underdistended gallbladder. No gallstones. Biliary ducts: CBD is dilated reaching 1 cm. Pancreas: Visualized pancreas is unremarkable. Right kidney: The right kidney measures 13.5 x 5.3 x 5.3 cm with renal cortex measuring 1.1 cm. Echogenic right renal parenchyma. Portal venous: Possible hepatofugal flow of the portal vein. US/US liver [id number] IMPRESSION: 1. Findings consistent with liver cirrhosis. Possible hepatofugal flow of the portal vein. No focal hepatic lesion. 2. Underdistended gallbladder with gallbladder wall thickening.
[2023-10-21] MEDS: oxyCODONE 5 mg IR Tab/Cap 10 MG PO ×3 (06:22→20:29)
[2023-10-21 06:24] LABS: Glucose Point of Care 110 mg/dL (70-110)
[2023-10-21] MEDS: rifaximin 200 mg Tablet 600 MG PO ×2 (09:58→18:09)
[2023-10-21] MEDS: zinc gluconate 50 mg Tablet PO (09:59)
[2023-10-21] MEDS: lamoTRIgine 100 mg Tablet 200 MG PO (09:59)
[2023-10-21] MEDS: magnesium lactate 84 mg Tablet PO (09:59)
[2023-10-21] MEDS: FUROsemide 40 mg Tablet PO (09:59)
[2023-10-21] MEDS: levETIRAcetam 500 mg Tablet 750 MG PO ×2 (09:59→18:09)
[2023-10-21] MEDS: lactulose oral liq 20 gm/30 mL UDC 60 GM PO (09:59)
[2023-10-21] MEDS: potassium chloride ER 20 mEq Tablet 40 MEQ PO (09:59)
[2023-10-21] MEDS: morphine ER (12 HR) 15 mg Tablet PO (09:59)
[2023-10-21] MEDS: spironolactone 25 mg Tablet PO ×2 (09:59→18:10)
[2023-10-21] MEDS: NIFEdipine ER (24 hr) 30 mg Tablet PO (09:59)
[2023-10-21] MEDS: nicotine 21 mg Patch 1 PATCH TRANSDERMA (10:00)
[2023-10-21 11:37] LABS: Glucose Point of Care 104 mg/dL (70-110)
[2023-10-21] MEDS: vancomycin 1,500 MG/300 ML PIGGYBACK 200 MG IV (13:33)
--- NOTE | 2023-10-21 14:00 | P.PN_ITS ---
Subjective 2 Subjective: - Events of yesterday, at about 630 bernarda ent was moved to [facility], patient walked to the bathroom, with a black case,, when she got back to her bed, she was very lethargic, -According to nursing staff, syringes, a spoon, and possible drug paraphernalia was found on her -There was concerns for drug overdose, s he was given 0.1 mg of Narcan twice and then 0.4 mg of Narcan, after the third dose, she was much more alert awake, could follow commands, but still drowsy -Ordered ABG, ordered neurochecks, bedsi de pulse ox, telemetry monitoring -She was monitored overnight, one-to-one sitter was placed, -In the morning patient was examined, sh e is alert to person, to place, not to time but she follows all commands denies any headache, blurry vision, no nausea, vomiting. I confronted patient about the events of yesterday evening, she adamantly denies using any drugs, she tells me that those were insulin syringes I asked her if she injected herself with insulin, she denies this, I have asked her if she used any drugs here in the hospital she denies this, denies any suicidal ideation, denies homicidal ideation Vitals/I&O/Wt Last Vital Signs Temp 97.7 F 10/21/23 12:00 Pulse 74 10/21/23 12:00 Resp 16 10/21/23 13:33 BP 165/96 10/21/23 12:00 Pulse Ox 90 10/21/23 12:00 O2 Del Method Room Air 10/21/23 12:00 10/20/23 10/21/23 10/21/23 22:59 06:59 14:59 Intake Total 1050 / 1050 450 / 1500 650 / 650 Balance 1050 / 1050 450 / 1500 650 / 650 Weight last 48 hrs Weight 110.875 kg Weight 106.594 kg Weight 95.254 kg Physical Exam 2 Const: COMMON NORMALS: no acute distress and patient oriented x3 Resp: COMMON NORMALS: normal respiratory effort, No retractions, No use of accessory muscles and clear to auscultation bilaterally AUSCULTATION: clear to auscultation bilaterally Cardio: COMMON NORMALS: regular rate, regular rhythm, S1 normal heart sound present and S2 normal heart sound present RATE: regular rate RHYTHM: r egular rhythm HEART SOUNDS: S1 normal heart sound present and S2 normal heart sound present GI: COMMON NORMALS: Normal to inspection, nondistended, normoactive bowel sounds present and non-tender Extremity: COMMON NORMALS: no pedal edema Neuro: COMMON NORMALS: patient oriented x3 Psych: COMMON NORMALS: mental status grossly normal Data 10/21/23 03:56 10/21/23 03:56 Micro: Microbiology 10/20/23 12:51 Blood Culture - Preliminary Blood NEGATIVE TO DATE 10/20/23 12:23 Blood Culture - Preliminary Blood NEGATIVE TO DATE A&P Assessment and plan (1) Bacteremia due to Enterococcus: Plan Enterococcus faecalis bacteremia, highly suspicious for subacute bacterial endocarditis ?4/4 blood cultures positive -Her last ER visit UA was within normal limits -Abdominal CT -FINDINGS: Liver: Mildly nodular liver contour. Negative for mass. Subcentimeter cyst in the inferior right hepatic lobe stable from comparison. Gallbladder and biliary ducts: Normal. No calcified stones. No ductal dilation. Pancreas: Normal. No ductal dilation. Spleen: Mild severity splenomegaly redemonstrated. Adrenal glands: Normal. No mass. Kidneys and ureters: Punctate nonobstructing left kidney lower pole stone. Negative for hydronephrosis. Negative for perinephric inflammation. Stomach and bowel: Unremarkable. No obstruction. No mucosal thickening. Appendix: No evidence of appendicitis. Intraperitoneal space: Unremarkable. No free air. No significant fluid collection. Vasculature: Venous splenorenal shunt is noted. Plaques of the abdominal aorta wall. Negative for aneurysm or dissection. Lymph nodes: Unremarkable. No enlarged lymph nodes. Urinary bladder: Unremarkable as visualized. Reproductive: Hysterectomy. Bones/joints: Unremarkable. No acute fracture. Soft tissues: Umbilical hernia without complication. CT/CT abdomen pelvis w con* [id number] IMPRESSION: Negative for acute abdominopelvic pathology. -Chest x-ray XR/XR chest 1V portable [id number] Impression: 1. Clearing of bilateral basilar opacities. 2. Atherosclerosis and permanent pacemaker. -Source unclear? -Does complain of abdominal pain, but also has diffuse pain all over, no fluid wave seen, could be spontaneous bacterial peritonitis, liver ultrasound, no ascites, CT scan shows no evidence of ascites ? Doubt UTI or pyelonephritis given CT scan findings UA within normal limits ? She does have pacemaker, possible pacemaker lead infection? ? She does have a history of drug use in the past, current urine toxicology screen within normal limits, could be subacute bacterial endocarditis? ? Plan ? Continue vancomycin -Continue Zosyn ? Follow repeat blood cultures ?Spoke to cardiology plans on transesophageal echocardiogram -Follow inflammatory markers Follow repeat blood cultures ? Continue to monitor closely ? Full code Lovenox for DVT prophylaxis Hyperammonemia ? Likely secondary to liver cirrhosis ? Monitor ammonia levels ? Continue lactulose Continue rifaximin Pulmonary embolism ? Off anticoagulation therapy History of ischemic bowel -Requiring hemicolectomy Peptic ulcer disease History of chronic hepatitis B, continue home medication History of drug abuse, follow urine toxicology screen, serum drug screen History of liver cirrhosis ? Continue home lactulose ? Continue home spironolactone Continue home Lasix History of hypothyroidism continue levothyroxine History of type 2 diabetes mellitus l low-dose sliding scale History of anxiety ? Continue doxepin -Continue gabapentin -Continue Lamictal Seizure disorder, continue medications as above including Harper Concerns for drug use/drug over dose while on [facility] 10/20/2023 at 6:30 PM -patient was moved to [facility], patient walked to the bathroom, with a black case, when she got back to her bed, she was very lethargic, -According to nursing staff, syringes, a spoon, and possible drug paraphernalia was found on her -Nurses had called me at roughly 7 PM, there was concerns for drug overdose, she was given 0.1 mg of Narcan twice and then 0.4 mg of Narcan, after the third dose, she was much more alert awake, could follow commands, but still drowsy -Monitored overnight, one-to-one sitter, telemetry monitoring, in the morning of 10/21/2023 she was alert oriented x 3, following all commands, no focal neurologic deficits no facial droop no slurring of words, no headache, no blurry vision, no neck pain, no neck stiffness, CODE STATUS, patient is DNR/DNI, confirmed with this multiple times, nursing staff at bedside Lovenox for DVT prophylaxis Protonix for GI prophylaxis Spoke to cardiology about performing a transesophageal echocardiogram, plan on tomorrow, Attestations 2 Medical Necessity Statement*: Patient requires hospitalization for Enterococcus faecalis bacteremia, inpatient, greater than 2 midnights Diagnoses Bacteremia due to Enterococcus R78.81; B95.2
[2023-10-21 17:02] LABS: Glucose Point of Care 132 mg/dL (70-110)
[2023-10-21 19:27] LABS: Amphetamines Screen Urine Negative (Negative); Barbiturates Screen Urine Negative (Negative); Benzodiazepines Screen Urine Negative (Negative); Cocaine Screen Urine Negative (Negative); Opiate Screen Urine Positive (Negative); PCP Screen Urine Negative (Negative); THC Screen Urine Negative (Negative)
[2023-10-21] MEDS: gabapentin 300 mg Capsule PO (20:30)
[2023-10-21] MEDS: doxepin 10 mg Capsule PO (20:30)
[2023-10-21] MEDS: enoxaparin 40 mg/0.4 mL Syringe SUBCUT (20:30)
[2023-10-21] MEDS: amitriptyline 25 mg Tablet 75 MG PO (20:30)
[2023-10-21] MEDS: pantoprazole 40 mg SDV IVP (20:30)
[2023-10-21 21:23] LABS: Glucose Point of Care 111 mg/dL (70-110)
[2023-10-22] VITALS (16 sets, daily range): BP systolic 129–154; BP diastolic 76–103; PULSE 74–93; RESP 16–18; TEMP 36.4–36.8; O2SAT 91–97
[2023-10-22] MEDS: vancomycin 1,500 MG/300 ML PIGGYBACK 200 MG IV ×3 (01:01→23:04)
[2023-10-22] MEDS: oxyCODONE 5 mg IR Tab/Cap 10 MG PO ×2 (02:39→06:48)
[2023-10-22] MEDS: piperacillin-tazobactam 3.375 GM in sodium chloride 0.9% (plus) 50 ML IV ×3 (02:43→18:00)
[2023-10-22] MEDS: levothyroxine 50 mcg Tablet PO (05:33)
[2023-10-22 05:57] LABS: Basophils % 0.5 %; Eosinophils # 0.3 10^3/uL (0.0-0.8); Eosinophils % 5.4 %; Hematocrit 35.8 % (36-47); Lymphocytes # 1.9 10^3/uL (0.8-4.8); Lymphocytes % 32.9 %; Mean Corpuscular HGB Conc 33.8 g/dL (30-55); Mean Corpuscular Hemoglobin 30.6 pg (27-33); Mean Corpuscular Volume 90.4 fl (85-98); Mean Platelet Volume 10.6 fL (7.4-10.4); Monocytes # 0.8 10^3/uL (0.2-0.9); Monocytes % 12.9 %; Neutrophils # 2.81 10^3/uL (1.8-7.7); Neutrophils % 47.6 %; Nucleated Red Blood Cells % 0 %; Platelet Count 148 10^3/cmm (157-399); Red Blood Count 3.96 10^6/uL (3.85-5.65); Red Cell Distribution Width 13.7 % (12.1-15.1)
[2023-10-22 06:26] LABS: Glucose Point of Care 103 mg/dL (70-110)
[2023-10-22 06:26] LABS: Ammonia 108 umol/L (11-51)
[2023-10-22 06:37] LABS: Procalcitonin 2.78 ng/mL (0-0.5)
[2023-10-22 06:39] LABS: Alanine Aminotransferase 15 U/L (0-33); Albumin Level 2.9 g/dL (3.5-5.2); Alkaline Phosphatase 98 U/L (35-105); Anion Gap 14.4 (5-19); Aspartate Amino Transferase 30 U/L (0-32); Blood Urea Nitrogen 8 mg/dL (6-20); C Reactive Protein 17.4 mg/L (0.0-4.9); Calcium 8.2 mg/dL (8.5-10.5); Carbon Dioxide 24 mmol/L (22-29); Chloride 106 mmol/L (98-107); Creatinine Clr Calc Pharmacy 230.3698; Globulin 3.7 g/dL (1.3-4.6); Glomerular Filtration Rate 131.1 mL/min (90-130); Glucose 126 mg/dL (65-115); Magnesium 1.5 mg/dL (1.7-2.3); Osmolality Calculated 292 mOsm/kg (285-295); Phosphorus 3.9 mg/dL (2.5-4.5); Potassium 3.4 mmol/L (3.5-5.1); Sodium 141 mmol/L (136-145); Total Bilirubin 0.6 mg/dL (0.15-1.2); Total Protein 6.6 g/dL (6.6-8.7)
[2023-10-22] MEDS: lamoTRIgine 100 mg Tablet 200 MG PO (08:02)
[2023-10-22] MEDS: zinc gluconate 50 mg Tablet PO (08:02)
[2023-10-22] MEDS: levETIRAcetam 500 mg Tablet 750 MG PO ×2 (08:03→17:56)
[2023-10-22] MEDS: FUROsemide 40 mg Tablet PO (08:03)
[2023-10-22] MEDS: spironolactone 25 mg Tablet PO ×2 (08:04→17:56)
[2023-10-22] MEDS: magnesium lactate 84 mg Tablet PO (08:04)
[2023-10-22] MEDS: NIFEdipine ER (24 hr) 30 mg Tablet PO (08:04)
[2023-10-22] MEDS: rifaximin 200 mg Tablet 600 MG PO ×2 (08:05→17:56)
[2023-10-22] MEDS: lactulose oral liq 20 gm/30 mL UDC 60 GM PO (08:05)
--- NOTE | 2023-10-22 09:03 | PC.CHAP ---
Pastoral Care Encounter/Spiritual Assessment Type of Contact [] Declined health policy manager visit [] Patient/Family/Request visit [] Outpatient visit [] Follow-up visit [] Physician referral [] Code/Alert [x] Routine visit [] Staff referral [] Actively dying [] Patient sleeping [] Family support [] [x] Out of room [] Palliative care [] [] Receiving care in room [] Pre-surgical visit [] Trauma [] Long length of stay [] ICU visit [] Other: Relational/Emotional Strength [] Patient feels connected with others/family/visitors/staff [] Distress [] Loneliness/isolation [] Abandonment Spirituality of Patient [] Person of Amaya [] Attends Synagogue of their Amaya [] Believes in Prayer [] Reads Bible or Pentecostalism materials [] There are Spiritual issues to be addressed Nail Machine Operator Interventions [] Prayer [] Active listening [] Non-anxious presence [] Spiritual/emotional support [] Crisis/trauma care [] Spiritual counseling [] Bereavement support [] Provided bereavement packet [] Provided Bible/devotional materials [] Provided toy/stuffed animal, coloring book to patient or family member [] Provided Communion [] Anointing/Hyndman [] Salvation [] Completed spiritual assessment [] Other: Impact on Illness or Injury [] Angry [] Fearful [] Anxious [] Often cries [] Exhaustion [] Unable to work [] Unable to attend alevism [] Unable to walk/stand [] Unable to read [] Unable to drive [] Unable to eat/drink [] Unable to sleep [] Unable to be with family [] Patient intubated [] Other: Summary Time spent with patient
[2023-10-22] MEDS: nicotine 21 mg Patch 1 PATCH TRANSDERMA (09:17)
[2023-10-22 11:15] LABS: Glucose Point of Care 128 mg/dL (70-110)
[2023-10-22] MEDS: oxyCODONE IR 30 mg Tablet 15 MG PO (11:21)
[2023-10-22 13:47] LABS: Vancomycin Trough 9.2 ug/mL (10-15)
[2023-10-22 15:05] LABS: HEP C RNA Viral Load Quant <1.18 NOT DETECTED Log IU/mL (NOT DETECTED); HEP C RNA Viral Load Quant <15 NOT DETECTED IU/mL (NOT DETECTED)
[2023-10-22] MEDS: oxyCODONE IR 30 mg Tablet PO ×2 (15:53→20:46)
--- NOTE | 2023-10-22 16:31 | PM.CONSULT ---
Providers/Reason For Consult Consulting Physician/Specialty*: Oseas Junior MD/ Cardiology Reason for Consult*: Rule out endocarditis/ JOELLE Requesting Physician: Dr Barrera Attending Physician: Neftali Barrera MD Primary Care Provider: Francisco Mckinley DO History of Present Illness History of Present Illness Maribell Foreman is a 48 year old female with history of liver cirrhosis, who has been found to have Enterococcus faecalis bacteremia. Separate blood cultures were positive. Cardiology consulted for JOELLE. She has a pacemaker in place. Review of Systems Const: Reports: body aches, fatigue and malaise; Denies: fever(s) or chills Card: Denies: chest pain Resp: Denies: dyspnea GI: Reports: abdominal pain and nausea : Reports: flank pain; Denies: difficulty voiding Musc: Reports: back pain and joint pain Endo: Denies: polyuria Medications/Allergies Home Medications Medication Instructions Recorded Confirmed Last Taken Type insulin glargine 100 unit/mL See Rx Instructions .Route .COMPLEX 11/23/22 10/20/23 10/19/23 History subcutaneous solution (Lantus U-100 Insulin) scopolamine base 1 mg over 3 days 1 patch topical Q3D 04/27/23 10/20/23 10/19/23 History transdermal patch tenofovir disoproxil fumarate 300 300 mg PO DAILY 04/27/23 10/20/23 10/19/23 History mg tablet zinc sulfate 50 mg zinc (220 mg) 50 mg PO DAILY 08/15/23 10/22/23 10/18/23 History capsule gabapentin 300 mg capsule 300 mg PO BEDTIME 30 days #30 caps 08/19/23 10/20/23 10/19/23 Rx lactulose 10 gram/15 mL oral 90 ml PO TID 30 days #8,100 mL 08/19/23 10/20/23 10/19/23 Rx solution lamotrigine 200 mg tablet 200 mg PO DAILY 30 days #30 tabs 08/19/23 10/20/23 10/19/23 Rx levetiracetam 750 mg tablet 750 mg PO BID 30 days #60 tabs 08/19/23 10/20/23 10/19/23 Rx levothyroxine 50 mcg tablet 50 mcg PO QAM 30 days #30 tabs 08/19/23 10/20/23 10/19/23 Rx xrdbkj-tfifrebu-gbuhuik 1 cap PO TID 30 days #30 caps 08/19/23 10/20/23 10/19/23 Rx 3,000-9,500-15,000 unit capsule, delayed rel (Creon) nifedipine 30 mg tablet,extended 30 mg PO DAILY 30 days #30 tabs 08/19/23 10/20/23 10/19/23 Rx release 24 hr oxycodone 30 mg tablet 30 mg PO Q4H PRN Pain 2 days #12 08/19/23 10/20/23 10/19/23 Rx tabs pantoprazole 40 mg tablet,delayed 40 mg PO BID #60 tabs 08/19/23 10/20/23 10/19/23 Rx release potassium chloride 20 mEq 20 meq PO DAILY 15 days #15 tabs 08/19/23 10/20/23 10/19/23 Rx tablet,extended release spironolactone 25 mg tablet 25 mg PO BID 30 days #30 tabs 08/19/23 10/20/23 10/19/23 Rx sumatriptan succinate 50 mg tablet See Rx Instructions .Route 08/19/23 10/20/23 10/19/23 Rx .COMPLEX 10 days #10 tabs tizanidine 4 mg tablet 4 mg PO Q6H PRN Spasms 10 days #30 08/19/23 10/20/23 10/19/23 Rx tabs umeclidinium 62.5 mcg-vilanterol 1 inh inhalation DAILY 30 days #30 08/19/23 10/20/23 10/19/23 Rx 25 mcg/actuation powdr for ea inhalation (Anoro Ellipta) albuterol sulfate 90 mcg/actuation 2 puff inhalation Q6H PRN 10/19/23 10/20/23 10/19/23 History aerosol inhaler (Ventolin HFA) Shortness Of Breath amitriptyline 75 mg tablet 75 mg PO BEDTIME 10/19/23 10/20/23 10/19/23 History doxepin 10 mg capsule 10 mg PO BEDTIME 10/19/23 10/20/23 10/19/23 History furosemide 20 mg tablet (Lasix) 20 mg PO DAILY PRN edema #14 tabs 10/19/23 10/22/23 Unknown Rx furosemide 40 mg tablet See Rx Instructions .Route .COMPLEX 10/19/23 10/20/23 10/19/23 History levalbuterol tartrate 45 2 inh inhalation Q6H PRN Shortness 10/19/23 10/22/23 Unknown History mcg/actuation aerosol inhaler Of Breath (Xopenex HFA) morphine 30 mg tablet,extended 30 mg PO Q12H 10/19/23 10/20/23 10/19/23 History release rimegepant 75 mg disintegrating 75 mg PO DAILY PRN Migraine 10/19/23 10/20/23 10/19/23 History tablet (Nurtec ODT) Headache Allergies Allergy/AdvReac Type Severity Reaction Status Date / Time codeine Allergy Unknown Unknown Verified 09/23/23 14:44 aspirin Allergy ALGY-Hives Verified 09/23/23 14:44 diphenhydramine Allergy ADR-Muscle Verified 09/23/23 14:44 [From Benadryl] Pain Sulfa (Sulfonamide Allergy ALGY-Swell Verified 09/23/23 14:44 Antibiotics) Lip/Tongue/Throat Current Medications Generic Name Dose Route Start Last Admin Trade Name Freq PRN Reason Stop Dose Admin Amitriptyline HCl 75 mg 10/20/23 21:00 10/21/23 20:30 Amitriptyline 25 Mg Tablet PO 75 mg BEDTIME JOJO Administration Doxepin HCl 10 mg 10/20/23 21:00 10/21/23 20:30 Doxepin 10 Mg Capsule PO 10 mg BEDTIME JOJO Administration Enoxaparin Sodium 40 mg 10/20/23 21:00 10/21/23 20:30 Enoxaparin 40 Mg/0.4 Ml Syringe SUBCUT 40 mg Q24H JOJO Administration Furosemide 40 mg 10/21/23 09:00 10/22/23 08:03 Furosemide 40 Mg Tablet PO 40 mg DAILY JOJO Administration Gabapentin 300 mg 10/20/23 21:00 10/21/23 20:30 Gabapentin 300 Mg Capsule PO 300 mg BEDTIME JOJO Administration Piperacillin Sod/Tazobactam 50 mls @ 12.5 mls/hr 10/21/23 01:00 10/22/23 15:34 Sod 3.375 gm/ Sodium Chloride IV Infused Q8H JOJO Infusion Vancomycin/PEG/NADA/Lysine/Water 1,500 mg in 300 mls @ 200 mls/hr 10/22/23 15:00 10/22/23 15:27 Vancocin IV 200 mls/hr Q8H JOJO Administration Insulin Human Lispro 0 unit 10/20/23 18:00 10/22/23 11:09 Insulin Lispro 100 Unit/1 Ml SUBCUT Not Given TIDWM [facility] Protocol Lactulose 60 gm 10/20/23 21:00 10/22/23 15:28 Lactulose Oral Liq 20 Gm/30 Ml Udc PO Not Given TID JOJO Lamotrigine 200 mg 10/21/23 09:00 10/22/23 08:02 Lamotrigine 100 Mg Tablet PO 200 mg DAILY JOJO Administration Levetiracetam 750 mg 10/20/23 18:30 10/22/23 08:03 Levetiracetam 500 Mg Tablet PO 750 mg BID JOJO Administration Levothyroxine Sodium 50 mcg 10/21/23 06:00 10/22/23 05:33 Levothyroxine 50 Mcg Tablet PO 50 mcg QAM JOJO Administration Magnesium Lactate 84 mg 10/21/23 09:25 10/22/23 08:04 Magnesium Lactate 84 Mg Tablet PO 84 mg DAILY [facility] Administration Naloxone HCl 0.1 mg 10/20/23 17:58 10/20/23 19:05 Naloxone 0.4 Mg/Ml Sdv IVP 0.1 mg Q2M PRN Administration OPIATERV Nicotine 1 patch 10/21/23 09:00 10/22/23 09:17 Nicotine 21 Mg Patch TRANSDERMA 1 patch DAILY JOJO Administration Nifedipine 30 mg 10/21/23 09:00 10/22/23 08:04 Nifedipine Er (24 Hr) 30 Mg Tablet PO 30 mg DAILY JOJO Administration Oxycodone HCl 30 mg 10/22/23 15:49 10/22/23 15:53 Oxycodone Ir 30 Mg Tablet PO 30 mg Q4H PRN Administration SEVERE PAIN Pantoprazole Sodium 40 mg 10/20/23 21:00 10/21/23 20:30 Pantoprazole 40 Mg Sdv IVP 40 mg Q24H JOJO Administration Rifaximin 600 mg 10/21/23 09:25 10/22/23 08:05 Rifaximin 200 Mg Tablet PO 600 mg BID JOJO Administration Spironolactone 25 mg 10/20/23 18:00 10/22/23 08:04 Spironolactone 25 Mg Tablet PO 25 mg BID JOJO Administration Zinc Gluconate 50 mg 10/21/23 09:00 10/22/23 08:02 Zinc Gluconate 50 Mg Tablet PO 50 mg DAILY JOJO Administration PFSH Acute PFSH: Medical History Hypokalemia shelter (current) use of opiate analgesic Pain management contract signed Metabolic encephalopathy SSS (sick sinus syndrome) Presence of permanent cardiac pacemaker Seizure disorder Tobacco dependency Hypothyroidism Accidental fentanyl overdose Overdose Cardiac arrest COPD (chronic obstructive pulmonary disease) Chronically on 3 L of oxygen Smoker Thrombocytopenia Bilateral pulmonary embolism Hepatitis B Pulmonary embolism Nicotine dependence, cigarettes, with unspecified nicotine-induced disorders Chronic hepatitis B Chronic abdominal pain Chronic hip pain Leg cramps Stomach cancer Pelvic inflammatory disease Diabetes mellitus Hypertension Encephalopathy Cirrhosis Gastroesophageal reflux GI bleeding Surgical History H/O right hemicolectomy History of right hemicolectomy H/O tubal ligation History of laparotomy History of hysterectomy Family History Mother Diabetes Father CAD (coronary artery disease) Other Cancer Social History Smoking and tobacco/nicotine status: former use of tobacco/nicotine Quit status (tobacco/nicotine): has quit using Year quit tobacco: 2020 Former quit date comment: 2ppd x 26 year Hx Alcohol intake: never Substance/Drug Use: never Vitals/I&O/Wt Last Vital Signs Temp 97.5 F L 10/22/23 11:17 Pulse 93 10/22/23 14:00 Resp 16 10/22/23 15:53 BP 154/103 10/22/23 11:17 Pulse Ox 96 10/22/23 11:17 O2 Del Method Room Air 10/22/23 11:17 10/22/23 10/22/23 10/22/23 06:59 14:59 22:59 Intake Total 300 / 1780 50 / 50 50 / 100 Balance 300 / 1780 50 / 50 50 / 100 Weight last 48 hrs Weight 236 lb 6 oz Weight 244 lb 7 oz Weight 235 lb Physical Exam Narrative: GENERAL: Patient is alert, awake and oriented x3. [] NECK: No jugular vein distension. [] HEENT: No cyanosis. No icterus. No pallor. [] HEART: Regular S1 and S2.Grade 2/6 systolic murmur LUNGS: Clear to auscultate bilaterally. [] CENTRAL NERVOUS SYSTEM: Grossly nonfocal. [] EXTREMITIES: Lower extremities with 1+ edema bilaterally Data 10/23/23 05:30 10/23/23 05:30 Micro: Microbiology 10/20/23 12:23 Blood Culture - Preliminary Blood Enterobacter cloacae 10/20/23 12:51 Blood Culture - Preliminary Blood NEGATIVE TO DATE A&P Assessment and plan (1) Presence of permanent cardiac pacemaker: (2) Cirrhosis of liver: (3) Bacteremia due to Enterococcus: Plan Patient's presentation is suspicious for endocarditis. She has pacemaker in place. We will proceed with transesophageal echocardiogram. N.p.o. past midnight. TTE is showing moderate to severe mitral regurgitation with suspicious echodensity seen on posterior mitral valve. ID on board. Currently on antibiotics for treatment. Thank you for involving us with care of this patient. We will continue to follow. Please call with questions. Consult Attestations Medical Necessity Statement: Care expected to cross 2 midnights. Coding Level of Care Code Acute Code for [facility] Fwd Diagnoses Presence of permanent cardiac pacemaker Z95.0 Cirrhosis of liver K74.60 Bacteremia due to Enterococcus R78.81; B95.2
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
[2023-10-22 17:01] LABS: Glucose Point of Care 96 mg/dL (70-110)
[2023-10-22 20:45] LABS: Glucose Point of Care 57 mg/dL (70-110)
[2023-10-22] MEDS: enoxaparin 40 mg/0.4 mL Syringe SUBCUT (20:45)
[2023-10-22] MEDS: doxepin 10 mg Capsule PO (20:46)
[2023-10-22] MEDS: amitriptyline 25 mg Tablet 75 MG PO (20:46)
[2023-10-22] MEDS: gabapentin 300 mg Capsule PO (20:46)
[2023-10-22] MEDS: pantoprazole 40 mg SDV IVP (20:47)
[2023-10-22 20:52] LABS: Glucose Point of Care 119 mg/dL (70-110)
[2023-10-23] VITALS (14 sets, daily range): BP systolic 103–139; BP diastolic 69–87; PULSE 71–88; RESP 16–20; TEMP 36.3–36.8; O2SAT 92–99
[2023-10-23] MEDS: oxyCODONE IR 30 mg Tablet PO ×4 (01:51→15:45)
[2023-10-23] MEDS: piperacillin-tazobactam 3.375 GM in sodium chloride 0.9% (plus) 50 ML IV (02:44)
[2023-10-23] MEDS: levothyroxine 50 mcg Tablet PO (05:10)
[2023-10-23 05:42] LABS: Basophils # 0.1 10^3/uL (0.0-0.1); Basophils % 0.9 %; Eosinophils # 0.3 10^3/uL (0.0-0.8); Eosinophils % 5.4 %; Hematocrit 38.8 % (36-47); Lymphocytes # 1.9 10^3/uL (0.8-4.8); Lymphocytes % 32.6 %; Mean Corpuscular Hemoglobin 30.1 pg (27-33); Mean Corpuscular Volume 94.2 fl (85-98); Mean Platelet Volume 10.1 fL (7.4-10.4); Monocytes # 0.6 10^3/uL (0.2-0.9); Monocytes % 10.9 %; Neutrophils # 2.85 10^3/uL (1.8-7.7); Neutrophils % 49.3 %; Nucleated Red Blood Cells % 0 %; Platelet Count 151 10^3/cmm (157-399); Red Blood Count 4.12 10^6/uL (3.85-5.65); Red Cell Distribution Width 13.9 % (12.1-15.1); White Blood Count 5.77 10^3/uL (3.29-11.43)
[2023-10-23 06:11] LABS: Alanine Aminotransferase 11 U/L (0-33); Albumin Level 2.7 g/dL (3.5-5.2); Alkaline Phosphatase 88 U/L (35-105); Aspartate Amino Transferase 25 U/L (0-32); Blood Urea Nitrogen 9 mg/dL (6-20); C Reactive Protein 10.6 mg/L (0.0-4.9); Calcium 8.2 mg/dL (8.5-10.5); Carbon Dioxide 20 mmol/L (22-29); Chloride 106 mmol/L (98-107); Creatinine Clr Calc Pharmacy 214.4099; Globulin 3.9 g/dL (1.3-4.6); Glomerular Filtration Rate 131.1 mL/min (90-130); Glucose 107 mg/dL (65-115); Magnesium 1.6 mg/dL (1.7-2.3); Osmolality Calculated 283 mOsm/kg (285-295); Phosphorus 4.1 mg/dL (2.5-4.5); Sodium 137 mmol/L (136-145); Total Bilirubin 0.5 mg/dL (0.15-1.2); Total Protein 6.6 g/dL (6.6-8.7)
[2023-10-23 06:16] LABS: Procalcitonin 1.43 ng/mL (0-0.5)
[2023-10-23 06:21] LABS: Glucose Point of Care 105 mg/dL (70-110)
[2023-10-23 06:21] LABS: Anion Gap 14.4 (5-19); Potassium 3.4 mmol/L (3.5-5.1)
--- NOTE | 2023-10-23 06:55 | PM.CONSULT ---
Providers/Reason For Consult Consulting Physician/Specialty*: Natalia Talavera MD / Infectious Disease Reason for Consult*: Enterococcus bacteremia Requesting Physician: Neftali Barrera MD Attending Physician: Neftali Barrera MD Primary Care Provider: Francisco Mckinley DO History of Present Illness History of Present Illness Maribell Foreman is a 48 year old female with h/o Hep B liver cirrhosis, portal HTN, peptic ulcer disease, status post pacemaker placement, history of seizure, COPD, fentanyl related overdose in the past. She was admitted to the hospital with enteritis in 08/2023 and had ER visits in August with abdominal symptoms of vomiting and pain. She has a h/o ischemic bowel in the past. She was in the ER on October 18, 2023 after being found unresponsive by family members when she had tried to quit her chronic opiates cold turkey. She was febrile on this day, this was thought to be related to heatstroke/exhaustion she was discharged home with recommendations to stay hydrated. She returned on October 19, 2023 and then again on October 20, 2023 with similar complaints of abdominal pain. Incidentally she was also found to be positive on blood cultures for Enterococcus faecalis from this most recent ER visit. Patient is currently homeless and is living out of the car. Does not offer any further insight into her current living arrangements. She reports several episodes of vomiting and abdominal discomfort which has been worse than usual. Though she denies any ongoing IV drug use, states she takes the prescriptions oral medications only, she was found on the floor of the bathroom on [facility] with several syringes, spoon and drug paraphernalia around her. She was unresponsive when found in the bathroom and needed to be given Narcan 3 times before she became awake and alert again. She denies any recent fever but does endorse chills.t max on 10/17 was 103F Review of Systems General: Reports: 10 or more systems reviewed and unremarkable except in HPI and below Const: Denies: fever(s), chills or body aches Eyes: Denies: change in vision, blurry vision or photophobia ENMT: Reports: hoarseness; Denies: throat pain, enlarged tonsils, odynophagia or nasal congestion Card: Denies: chest pain, palpitations, irregular heart rhythm, edema, swelling of feet/ankles, lightheadedness, pre-syncope, dyspnea on exertion or orthopnea Resp: Denies: dyspnea, productive cough, non-productive cough, wheezing, stridor, pain on inspiration, change in phlegm color, hemoptysis or chest congestion GI: Denies: abdominal pain, nausea, vomiting, hematemesis, coffee ground emesis, dysphagia, heartburn, diarrhea, constipation, GI cramping, change in stool character, hematochezia or melena : Denies: flank pain, difficulty voiding, dysuria, urinary frequency, urinary urgency, urinary hesitancy or hematuria Musc: Denies: neck pain, back pain, extremity pain, joint swelling, joint warmth or deformity Neuro: Denies: headache(s), numbness in extremities, weakness in extremities, sensory changes, difficulty walking, frequent falls, dizziness, vertigo, behavioral changes, Slurred speech present or seizure-like activity Psych: Denies: anxiety, depression, suicidal ideation or homicidal ideation Endo: Denies: polyuria, polydipsia, tired all the time, cold intolerance or hot flashes Robel/Lymph: Denies: easy bruising or easy bleeding Medications/Allergies Home Medications Medication Instructions Recorded Confirmed Last Taken Type insulin glargine 100 unit/mL See Rx Instructions .Route .COMPLEX 11/23/22 10/20/23 10/19/23 History subcutaneous solution (Lantus U-100 Insulin) scopolamine base 1 mg over 3 days 1 patch topical Q3D 04/27/23 10/20/23 10/19/23 History transdermal patch tenofovir disoproxil fumarate 300 300 mg PO DAILY 04/27/23 10/20/23 10/19/23 History mg tablet zinc sulfate 50 mg zinc (220 mg) 50 mg PO DAILY 08/15/23 10/22/23 10/18/23 History capsule gabapentin 300 mg capsule 300 mg PO BEDTIME 30 days #30 caps 08/19/23 10/20/23 10/19/23 Rx lactulose 10 gram/15 mL oral 90 ml PO TID 30 days #8,100 mL 08/19/23 10/20/23 10/19/23 Rx solution lamotrigine 200 mg tablet 200 mg PO DAILY 30 days #30 tabs 08/19/23 10/20/23 10/19/23 Rx levetiracetam 750 mg tablet 750 mg PO BID 30 days #60 tabs 08/19/23 10/20/23 10/19/23 Rx levothyroxine 50 mcg tablet 50 mcg PO QAM 30 days #30 tabs 08/19/23 10/20/23 10/19/23 Rx nfckuy-chgultrp-szkpsia 1 cap PO TID 30 days #30 caps 08/19/23 10/20/23 10/19/23 Rx 3,000-9,500-15,000 unit capsule, delayed rel (Creon) nifedipine 30 mg tablet,extended 30 mg PO DAILY 30 days #30 tabs 08/19/23 10/20/23 10/19/23 Rx release 24 hr oxycodone 30 mg tablet 30 mg PO Q4H PRN Pain 2 days #12 08/19/23 10/20/23 10/19/23 Rx tabs pantoprazole 40 mg tablet,delayed 40 mg PO BID #60 tabs 08/19/23 10/20/23 10/19/23 Rx release potassium chloride 20 mEq 20 meq PO DAILY 15 days #15 tabs 08/19/23 10/20/23 10/19/23 Rx tablet,extended release spironolactone 25 mg tablet 25 mg PO BID 30 days #30 tabs 08/19/23 10/20/23 10/19/23 Rx sumatriptan succinate 50 mg tablet See Rx Instructions .Route 08/19/23 10/20/23 10/19/23 Rx .COMPLEX 10 days #10 tabs tizanidine 4 mg tablet 4 mg PO Q6H PRN Spasms 10 days #30 08/19/23 10/20/23 10/19/23 Rx tabs umeclidinium 62.5 mcg-vilanterol 1 inh inhalation DAILY 30 days #30 08/19/23 10/20/23 10/19/23 Rx 25 mcg/actuation powdr for ea inhalation (Anoro Ellipta) albuterol sulfate 90 mcg/actuation 2 puff inhalation Q6H PRN 10/19/23 10/20/23 10/19/23 History aerosol inhaler (Ventolin HFA) Shortness Of Breath amitriptyline 75 mg tablet 75 mg PO BEDTIME 10/19/23 10/20/23 10/19/23 History doxepin 10 mg capsule 10 mg PO BEDTIME 10/19/23 10/20/23 10/19/23 History furosemide 20 mg tablet (Lasix) 20 mg PO DAILY PRN edema #14 tabs 10/19/23 10/22/23 Unknown Rx furosemide 40 mg tablet See Rx Instructions .Route .COMPLEX 10/19/23 10/20/23 10/19/23 History levalbuterol tartrate 45 2 inh inhalation Q6H PRN Shortness 10/19/23 10/22/23 Unknown History mcg/actuation aerosol inhaler Of Breath (Xopenex HFA) morphine 30 mg tablet,extended 30 mg PO Q12H 10/19/23 10/20/23 10/19/23 History release rimegepant 75 mg disintegrating 75 mg PO DAILY PRN Migraine 10/19/23 10/20/23 10/19/23 History tablet (Nurtec ODT) Headache Allergies Allergy/AdvReac Type Severity Reaction Status Date / Time codeine Allergy Unknown Unknown Verified 09/23/23 14:44 aspirin Allergy ALGY-Hives Verified 09/23/23 14:44 diphenhydramine Allergy ADR-Muscle Verified 09/23/23 14:44 [From Benadryl] Pain Sulfa (Sulfonamide Allergy ALGY-Swell Verified 09/23/23 14:44 Antibiotics) Lip/Tongue/Throat Current Medications Generic Name Dose Route Start Last Admin Trade Name Freq PRN Reason Stop Dose Admin Amitriptyline HCl 75 mg 10/20/23 21:00 10/22/23 20:46 Amitriptyline 25 Mg Tablet PO 75 mg BEDTIME JOJO Administration Doxepin HCl 10 mg 10/20/23 21:00 10/22/23 20:46 Doxepin 10 Mg Capsule PO 10 mg BEDTIME JOJO Administration Enoxaparin Sodium 40 mg 10/20/23 21:00 10/22/23 20:45 Enoxaparin 40 Mg/0.4 Ml Syringe SUBCUT 40 mg Q24H JOJO Administration Furosemide 40 mg 10/21/23 09:00 10/22/23 08:03 Furosemide 40 Mg Tablet PO 40 mg DAILY JOJO Administration Gabapentin 300 mg 10/20/23 21:00 10/22/23 20:46 Gabapentin 300 Mg Capsule PO 300 mg BEDTIME JOJO Administration Piperacillin Sod/Tazobactam 50 mls @ 12.5 mls/hr 10/21/23 01:00 10/23/23 02:44 Sod 3.375 gm/ Sodium Chloride IV 12.5 mls/hr Q8H JOJO Administration Vancomycin/PEG/NADA/Lysine/Water 1,500 mg in 300 mls @ 200 mls/hr 10/22/23 15:00 10/23/23 00:34 Vancocin IV Infused Q8H JOJO Infusion Insulin Human Lispro 0 unit 10/20/23 18:00 10/22/23 17:27 Insulin Lispro 100 Unit/1 Ml SUBCUT Not Given [facility] Protocol Lactulose 60 gm 10/20/23 21:00 10/22/23 20:49 Lactulose Oral Liq 20 Gm/30 Ml Udc PO Not Given TID JOJO Lamotrigine 200 mg 10/21/23 09:00 10/22/23 08:02 Lamotrigine 100 Mg Tablet PO 200 mg DAILY JOJO Administration Levetiracetam 750 mg 10/20/23 18:30 10/22/23 17:56 Levetiracetam 500 Mg Tablet PO 750 mg BID JOJO Administration Levothyroxine Sodium 50 mcg 10/21/23 06:00 10/23/23 05:10 Levothyroxine 50 Mcg Tablet PO 50 mcg QAM JOJO Administration Magnesium Lactate 84 mg 10/21/23 09:25 10/22/23 08:04 Magnesium Lactate 84 Mg Tablet PO 84 mg DAILY JOJO Administration Naloxone HCl 0.1 mg 10/20/23 17:58 10/20/23 19:05 Naloxone 0.4 Mg/Ml Sdv IVP 0.1 mg Q2M PRN Administration OPIATERV Nicotine 1 patch 10/21/23 09:00 10/22/23 09:17 Nicotine 21 Mg Patch TRANSDERMA 1 patch DAILY JOJO Administration Nifedipine 30 mg 10/21/23 09:00 10/22/23 08:04 Nifedipine Er (24 Hr) 30 Mg Tablet PO 30 mg DAILY JOJO Administration Oxycodone HCl 30 mg 10/22/23 15:49 10/23/23 06:36 Oxycodone Ir 30 Mg Tablet PO 30 mg Q4H PRN Administration SEVERE PAIN Pantoprazole Sodium 40 mg 10/20/23 21:00 10/22/23 20:47 Pantoprazole 40 Mg Sdv IVP 40 mg Q24H JOJO Administration Rifaximin 600 mg 10/21/23 09:25 10/22/23 17:56 Rifaximin 200 Mg Tablet PO 600 mg BID JOJO Administration Spironolactone 25 mg 10/20/23 18:00 10/22/23 17:56 Spironolactone 25 Mg Tablet PO 25 mg BID JOJO Administration Zinc Gluconate 50 mg 10/21/23 09:00 10/22/23 08:02 Zinc Gluconate 50 Mg Tablet PO 50 mg DAILY JOJO Administration PFSH Acute PFSH: Medical History Hypokalemia skilled nursing (current) use of opiate analgesic Pain management contract signed Metabolic encephalopathy SSS (sick sinus syndrome) Presence of permanent cardiac pacemaker Seizure disorder Tobacco dependency Hypothyroidism Accidental fentanyl overdose Overdose Cardiac arrest COPD (chronic obstructive pulmonary disease) Chronically on 3 L of oxygen Smoker Thrombocytopenia Bilateral pulmonary embolism Hepatitis B Pulmonary embolism Nicotine dependence, cigarettes, with unspecified nicotine-induced disorders Chronic hepatitis B Chronic abdominal pain Chronic hip pain Leg cramps Stomach cancer Pelvic inflammatory disease Diabetes mellitus Hypertension Encephalopathy Cirrhosis Gastroesophageal reflux GI bleeding Surgical History H/O right hemicolectomy History of right hemicolectomy H/O tubal ligation History of laparotomy History of hysterectomy Family History Mother Diabetes Father CAD (coronary artery disease) Other Cancer Social History Smoking and tobacco/nicotine status: former use of tobacco/nicotine Quit status (tobacco/nicotine): has quit using Year quit tobacco: 2020 Former quit date comment: 2ppd x 26 year Hx Alcohol intake: never Substance/Drug Use: never Vitals/I&O/Wt Last Vital Signs Temp 97.4 F L 10/23/23 04:00 Pulse 88 10/23/23 06:08 Resp 18 10/23/23 06:36 BP 124/80 10/23/23 04:00 Pulse Ox 92 10/23/23 04:00 O2 Del Method Room Air 10/23/23 04:00 10/22/23 10/22/23 10/23/23 14:59 22:59 06:59 Intake Total 530 / 530 880 / 1410 300 / 1710 Balance 530 / 530 880 / 1410 300 / 1710 Weight last 48 hrs Weight 99.79 kg Weight 107.218 kg Physical Exam Narrative: General: No acute distress, AO x3 HEENT: PERRLA, pupils bilaterally equal and reactive, pallors not present Chest: Normal vesicular breath sounds, no added sounds, equal good air entry bilaterally CVS: S1-S2 regular, no murmurs, no tachycardia, no gallops, no rubs Abdomen: Soft, nontender, no organomegaly, bowel sounds present Neuro: No focal deficits, no facial deformity, AO x3, power 5/5 in all limbs Data 10/23/23 05:30 10/23/23 05:30 Micro: Microbiology 10/23/23 05:30 Blood Culture - Preliminary Blood SPECIMEN COLLECTED 10/20/23 12:23 Blood Culture - Preliminary Blood Enterobacter cloacae pending susceptibility NAME: Maribell Foreman LOC: U #: [id number] AGE/SX: 48/F ROOM: RE10/18/[address]: Tyler Alegria DO : 1975 BED: DIS: FAX #: STATUS: [facility] TLOC: Spec #: [id number] Diego: 10/18/23 Status: RES Req #: [id number] Recd: 10/18/23-[address]: Tyler Alegria DO Src: Blood SpDesc: Ordered: Bcult Procedure Result Verified Site Blood Culture Preliminary 10/21/23-1258 3 OF 4 BOTTLES POSITIVE DIRECT GRAM STAIN: GRAM POSITIVE COCCI IN CHAINS IDENTIFICATION BY DIRECT PCR Organism 1 Enterococcus faecalis Growth 3 BOTTLES Gram Stain Charge Charge for Gram Stain CRITICAL RESULT YES/NO: YES CRITICAL CALLED BY: RT TO AND READ BACK BY: ALTON DATE: 10/19/23 TIME: 164 E faecalis M.I.C. RX --------- ------ * Ampicillin <=2 S * Linezolid 2 S * Penicillin 8 S Vancomycin 2 S Gentamicin Synergy Screen >500 R Daptomycin 2 S Enterococcus faecalis: Gram Pos Combo 33-MScan Gentamicin Synergy Screen R Blood Culture Preliminary (changed) 10/19/23-1645 2 OF 4 BOTTLES POSITIVE DIRECT GRAM STAIN: GRAM POSITIVE COCCI IN CHAINS IDENTIFICATION BY DIRECT PCR RESULTS TO FOLLOW Organism 1 Enterococcus faecalis Growth 2 BOTTLES Gram Stain Charge Charge for Gram Stain CRITICAL RESULT YES/NO: YES CRITICAL CALLED BY: RT TO AND READ BACK BY: ALTON DATE: 10/19/23 TIME: 164 Blood Culture Preliminary (changed) 10/18/23 SPECIMEN COLLECTED NAME: Maribell Foreman LOC: ER U #: [id number] AGE/SX: 48/F ROOM: RE10/18/[address]: Tyler Alegria DO : 1975 BED: DIS: FAX #: STATUS: DEP ER TLOC: Spec #: [id number] Diego: 10/18/23 Status: RES Req #: [id number] Recd: 10/18/[address]: Tyler Alegria DO Src: Blood SpDesc: Ordered: Bcult Procedure Result Verified Site Blood Culture Preliminary 10/21/23 3 OF 4 BOTTLES POSITIVE DIRECT GRAM STAIN: GRAM POSITIVE COCCI IN CHAINS SENSITIVITIES ON [id number] Organism 1 Enterococcus faecalis Growth 3 BOTTLES Gram Stain Charge Charge for Gram Stain CRITICAL RESULT YES/NO: YES CRITICAL CALLED BY: RT TO AND READ BACK BY: ALTON DATE: 10/19/23 TIME: 164 Blood Culture Preliminary (changed) 10/19/23 NEGATIVE TO DATE Blood Culture Preliminary (changed) 10/18/23 SPECIMEN COLLECTED NAME: Maribell Foreman LOC: [facility] U #: [id number] AGE/SX: 48/F ROOM: [facility] RE10/20/[address]: Neftali Barrera MD : 1975 BED: 1 DIS: FAX #: STATUS: ADM IN TLOC: Spec #: [id number] Diego: 10/20/23 Status: RES Req #: [id number] Recd: 10/20/[address]: Yassine Crook DO Src: Blood SpDesc: Ordered: Bcult Procedure Result Verified Site Blood Culture Preliminary 10/22/23 1 OF 4 BOTTLES POSITIVE DIRECT GRAM STAIN: GRAM NEGATIVE RODS IDENTIFICATION BY DIRECT PCR RESULTS TO FOLLOW Organism 1 Enterobacter cloacae Growth 1 BOTTLE Gram Stain Charge Charge for Gram Stain CRITICAL RESULT YES/NO: YES CRITICAL CALLED BY: LEON TO AND READ BACK BY: SEGUNDO DATE: 10/22/23 TIME: 1443 Blood Culture Preliminary (changed) 10/21/23-1227 NEGATIVE TO DATE Blood Culture Preliminary (changed) 10/20/23-1233 SPECIMEN COLLECTED Other data: [address] [address] Ultrasound Report Signed Patient: Maribell Foreman Unit #: [id number] : 1975 Age/Sex: 48 / F ADM Date: 10/20/23 Loc: [facility] Room/Bed: [facility] Attending Dr: Neftali Barrera MD Ordering Provider/Ordering MD: Neftali Barrera MD Date of Service: 10/21/23 Procedure(s): US liver 34905 Accession Number(s): [id number] Report Number: [id number] PROCEDURE INFORMATION: Exam: US Abdomen, Limited; Right Upper Quadrant Exam date and time: 10/21/2023 8:59 AM Age: 48 years old Clinical indication: Screening exam; Other: Liver, ascites. Prior surgery; Surgery date: 6+ months; Surgery type: Patient states she has had stomach surgery; Additional info: Liver, ascites. Patient just ate. Nurse notified to have patient be npo at midnight. Will TECHNIQUE: Imaging protocol: Real time ultrasound of the abdomen with image documentation. Limited exam focused on the right upper quadrant. COMPARISON: US abdomen complete* [id number] 10/18/2020 6:19 AM FINDINGS: Liver: There is nodular contour of the liver consistent with liver cirrhosis. No focal hepatic lesion. Heterogeneous echotexture of the liver. Gallbladder: There is gallbladder wall thickening measuring 4 mm. Underdistended gallbladder. No gallstones. Biliary ducts: CBD is dilated reaching 1 cm. Pancreas: Visualized pancreas is unremarkable. Right kidney: The right kidney measures 13.5 x 5.3 x 5.3 cm with renal cortex measuring 1.1 cm. Echogenic right renal parenchyma. Portal venous: Possible hepatofugal flow of the portal vein. US/US liver [id number] IMPRESSION: 1. Findings consistent with liver cirrhosis. Possible hepatofugal flow of the portal vein. No focal hepatic lesion. 2. Underdistended gallbladder with gallbladder wall thickening. Patient: Maribell Foreman Unit #: [id number] : 1975 Age/Sex: 48 / F ADM Date: 10/19/23 Loc: ER Room/Bed: Attending Dr: Ordering Provider/Ordering MD: Lane Gaffney DO Date of Service: 10/19/23 Procedure(s): XR chest 1V portable [id number] Accession Number(s): [id number] Report Number: [id number] WS: [id number] Portable AP upright chest, 10/19/2023 Clinical Data: dyspnea/cough Comparison: Portable chest, 10/18/2023 Findings: No nodules, masses or effusions are seen. The heart is normal. The pulmonary vascularity is not increased. No pneumonia or pneumothorax is seen. The bibasilar opacities have cleared. The aortic arch and descending thoracic aorta show tortuosity. The permanent pacemaker remains in good position. XR/XR chest 1V portable [id number] Impression: 1. Clearing of bilateral basilar opacities. 2. Atherosclerosis and permanent pacemaker. Patient: Maribell Foreman Unit #: [id number] : 1975 Age/Sex: 48 / F ADM Date: 10/18/23 Loc: ER Room/Bed: Attending Dr: Ordering Provider/Ordering MD: Tyler Alegria DO Date of Service: 10/19/23 Procedure(s): CT abdomen pelvis w con* [id number] Accession Number(s): [id number] Report Number: [id number] PROCEDURE INFORMATION: Exam: CT Abdomen And Pelvis With Contrast Exam date and time: 10/19/2023 12:46 AM Age: 48 years old Clinical indication: Fever and nausea and vomiting; Abdominal pain; Generalized; Prior surgery; Surgery date: 6+ months; Surgery type: Partial colectomy. Hysterectomy. Patient HX: Diffuse abd pain with fever and n/v. Charted history of gastric cancer. ; Additional info: Fever, abd pain TECHNIQUE: Imaging protocol: Computed tomography of the abdomen and pelvis with contrast. Radiation optimization: All CT scans at this facility use at least one of these dose optimization techniques: automated exposure control; mA and/or kV adjustment per patient size (includes targeted exams where dose is matched to clinical indication); or iterative reconstruction. Contrast material: OMNI 350; Contrast volume: 100 ml; Contrast route: INTRAVENOUS (IV); COMPARISON: CT abdomen pelvis w con* [id number] 09/23/2023 3:30 PM RADIATION DOSE METRICS: Total DLP (mGy-cm): 960.23 FINDINGS: Liver: Mildly nodular liver contour. Negative for mass. Subcentimeter cyst in the inferior right hepatic lobe stable from comparison. Gallbladder and biliary ducts: Normal. No calcified stones. No ductal dilation. Pancreas: Normal. No ductal dilation. Spleen: Mild severity splenomegaly redemonstrated. Adrenal glands: Normal. No mass. Kidneys and ureters: Punctate nonobstructing left kidney lower pole stone. Negative for hydronephrosis. Negative for perinephric inflammation. Stomach and bowel: Unremarkable. No obstruction. No mucosal thickening. Appendix: No evidence of appendicitis. Intraperitoneal space: Unremarkable. No free air. No significant fluid collection. Vasculature: Venous splenorenal shunt is noted. Plaques of the abdominal aorta wall. Negative for aneurysm or dissection. Lymph nodes: Unremarkable. No enlarged lymph nodes. Urinary bladder: Unremarkable as visualized. Reproductive: Hysterectomy. Bones/joints: Unremarkable. No acute fracture. Soft tissues: Umbilical hernia without complication. CT/CT abdomen pelvis w con* [id number] IMPRESSION: Negative for acute abdominopelvic pathology. A&P Assessment and plan (1) Endocarditis: This is a possible diagnosis at this point. Meets 1 major(typical microorganism from 2 separate blood cultures) and 2 minor (fever 103, predisposing heart condition/IV drug use ) modified Gaona criteria correlating with possible endocarditis. Blood cultures positive from October 20, 2023 for Enterococcus faecalis. Discontinue piperacillin/tazobactam and vancomycin Start ampicillin 2 g IV every 4 hours plus ceftriaxone 2 g IV every 12 hours presumptively for endocarditis. Repeat blood cultures from October 23, 2023 are currently pending to determine clearance. Await culture clearance for at least 48 hours prior to placement of PICC line. Agree with JOELLE to assess for valvular vegetation and/or pacemaker lead vegetation. Alternate source possibility is gastrointestinal given that blood culture also now reported positive for Enterobacter cloacae. Pending susceptibilities. Patient has had several ER visits for complains of abdominal pain nausea and vomiting. She has a history of chronic bowel issues including ischemic bowel and nonspecific enteritis. She would likely need further evaluation with upper and lower GI endoscopies as an outpatient once recovered from acute illness. Will follow (2) Enterococcus faecalis infection: Possible source endocarditis versus GI (3) Bacteremia due to Enterobacter species: Suspected gastrointestinal source Consult Attestations Medical Necessity Statement: Per admitting Coding Level of Care Code Acute Code for Chg Fwd High MDM includes number and complexity of problems actively addressed during encounter, amount and/or complexity of data reviewed/ordered and described risk of complication, morbidity or mortality of management as documented Diagnoses Endocarditis I38 Enterococcus faecalis infection A49.8 Bacteremia due to Enterobacter species R78.81; B96.89
--- NOTE | 2023-10-23 07:55 | PC.NURSE ---
Addendum entered by Apoorva Arias LPN 10/23/23 08:01: Pt transferred to GI lab at 755 via bed. Original Note: US Kaylie called this nurse to inform me GI lab was calling to get report. This nurse informed her that pt is without an IV as IV access unsuccessful following U/S attempt. GI lab nurses came to get pt anyway without report.
[2023-10-23] MEDS: sodium chloride 0.9% 1,000 ML 30 ML IV (08:16)
--- NOTE | 2023-10-23 08:25 | W.PM.OPSUD ---
Surgery/Procedure H&P Update DATE OF PROCEDURE: October 23, 2023 DATE H&P PERFORMED: 10/22/23 H&P UPDATE INFORMATION: I have reviewed H&P completed within last 30 days and No changes to prior documentation PREOP DIAGNOSIS: Rule out endocarditis/ E Faecalis bacteremia PLANNED PROCEDURE: Operation Date: 10/23/23 14:50 Proposed Procedures p JOELLE(Not Applicable) - Oseas Junior M.D Anesthesia team available for sedation
--- NOTE | 2023-10-23 08:30 | USCV_ITS ---
Maribell Foreman Age: 48 Gender: F : 1975 Exam Date: 10/23/2023 08:38 Ordering Phys: Oseas Junior M.D ([email or web address]) Technologist: Exam Location: [facility] [place]: ? veg BP: / HR: Rhythm: Sinus Technical Quality: Adequate MEASUREMENTS (Male / Female) Normal Values Medications Per anesthesia team Complications None Proc. Components After anesthesia team sedated patient, we proceeded with JOELLE probe insertion FINDINGS Left Ventricle Left ventricular normal size. LV systolic function is normal with EF 55 to 60%. No regional wall motion abnormalities seen Right Ventricle Normal in size and function. Pacemaker lead is seen. No vegetation is seen. Right Atrium Normal in size. Pacemaker lead is seen. No vegetation seen. Left Atrium Grossly normal LA Appendage No left atrial appendage thrombus IA Septum Grossly normal Mitral Valve Mitral valve is thickened. At the base of the posterior mitral valve leaflet on atrial side, there is a 1.1x1.0 cm in diameter echogenic structure that is not mobile. Differential will include a vegetation (not typical appearance for vegetation) vs left atrial mass. Mild to moderate mitral regurgitation. Aortic Valve Structurally normal. No vegetation seen Tricuspid Valve Structurally normal. No vegetation seen Pulmonic Valve Grossly normal Pericardium Normal Aorta Mild plaque CONCLUSIONS LV systolic function is normal with EF of 55 to 60%. Pacemaker lead is seen in right atrium and right ventricle. No visible vegetation. Mitral valve is thickened. At the base of the posterior mitral valve leaflet on atrial side, there is a 1.1x1.0 cm in diameter echogenic structure that is not mobile. Differential will include a vegetation (not typical appearance for vegetation) vs left atrial mass. Mild to moderate mitral regurgitation. Recommend cardiac MRI to further characterize the mass Oseas Junior MD (Electronically Signed) Final Date: 23 October 2023 09:42 S
--- NOTE | 2023-10-23 08:59 | PC.CHAP ---
Pastoral Care Encounter/Spiritual Assessment Type of Contact [] Declined employee's representative visit [] Patient/Family/Request visit [] Outpatient visit [] Follow-up visit [] Physician referral [] Code/Alert [] Routine visit [] Staff referral [] Actively dying [] Patient sleeping [] Family support [] [x] Out of room [] Palliative care [] [] Receiving care in room [] Pre-surgical visit [] Trauma [] Long length of stay [] ICU visit [] Other: Relational/Emotional Strength [] Patient feels connected with others/family/visitors/staff [] Distress [] Loneliness/isolation [] Abandonment Spirituality of Patient [] Person of Amaya [] Attends Church of their Amaya [] Believes in Prayer [] Reads Bible or Episcopalian materials [] There are Spiritual issues to be addressed [employer]ation [employer] Interventions [] Prayer [] Active listening [] Non-anxious presence [] Spiritual/emotional support [] Crisis/trauma care [] Spiritual counseling [] Bereavement support [] Provided bereavement packet [] Provided Bible/devotional materials [] Provided toy/stuffed animal, coloring book to patient or family member [] Provided Communion [] Anointing/[place] [] Salvation [] Completed spiritual assessment [] Other: Impact on Illness or Injury [] Angry [] Fearful [] Anxious [] Often cries [] Exhaustion [] Unable to work [] Unable to attend mormonism [] Unable to walk/stand [] Unable to read [] Unable to drive [] Unable to eat/drink [] Unable to sleep [] Unable to be with family [] Patient intubated [] Other: Summary Time spent with patient
--- NOTE | 2023-10-23 09:10 | ANES.PREANE2 ---
Pre-Anesthetic Assessment Height/Weight: Height 15.24 cm Weight 99.79 kg Temp Pulse Resp BP Pulse Ox O2 Del Method O2 Flow Rate 97.6 F 71 18 103/69 92 Room Air 10 10/23/23 08:58 10/23/23 09:08 10/23/23 09:08 10/23/23 09:08 10/23/23 09:08 10/23/23 09:08 10/23/23 08:58 Preop Diagnosis: Rule out endocarditis/ E Faecalis bacteremia Operation Date: 10/23/23 14:50 Proposed Procedures p JOELLE(Not Applicable) - Orion Bowen anesthetic complications: none Was Beta Jadon taken within 24 hours: N/A Was Clonidine taken within 24 hours: N/A Last intake: Intake Last Liquid Date 10/22/23 Last Liquid Time 21:30 Last Solid Date 10/22/23 Last Solid Time 17:30 Social Tobacco and No alcohol Exam alert, oriented x 3 and regular rate & rhythm Airway Submandibular: within normal limits Cervical ROM: within normal limits Mallampati: Class II Dentition: chipped and false (upper) Pulmonary Chronic Obstructive Pulmonary Disease CV/HEM Arrythmia (pacemaker) Sepsis/bacteremia Hepatic Cirrhosis and Hepatitis (B) GI Gastroesophageal Reflux Disease Metabolic Diabetes Mellitus, Morbid Obesity and Thyroid Disease Neuropsych Seizure Anesthetic Plan ASA status: 3 Anesthesia: MAC Medications/Allergies Home Medications Medication Instructions Recorded Confirmed Last Taken Type insulin glargine 100 unit/mL See Rx Instructions .Route .COMPLEX 11/23/22 10/20/23 10/19/23 History subcutaneous solution (Lantus U-100 Insulin) scopolamine base 1 mg over 3 days 1 patch topical Q3D 04/27/23 10/20/23 10/19/23 History transdermal patch tenofovir disoproxil fumarate 300 300 mg PO DAILY 04/27/23 10/20/23 10/19/23 History mg tablet zinc sulfate 50 mg zinc (220 mg) 50 mg PO DAILY 08/15/23 10/22/23 10/18/23 History capsule gabapentin 300 mg capsule 300 mg PO BEDTIME 30 days #30 caps 08/19/23 10/20/23 10/19/23 Rx lactulose 10 gram/15 mL oral 90 ml PO TID 30 days #8,100 mL 08/19/23 10/20/23 10/19/23 Rx solution lamotrigine 200 mg tablet 200 mg PO DAILY 30 days #30 tabs 08/19/23 10/20/23 10/19/23 Rx levetiracetam 750 mg tablet 750 mg PO BID 30 days #60 tabs 08/19/23 10/20/23 10/19/23 Rx levothyroxine 50 mcg tablet 50 mcg PO QAM 30 days #30 tabs 08/19/23 10/20/23 10/19/23 Rx ahyamk-jjxjqlqj-djbubby 1 cap PO TID 30 days #30 caps 08/19/23 10/20/23 10/19/23 Rx 3,000-9,500-15,000 unit capsule, delayed rel (Creon) nifedipine 30 mg tablet,extended 30 mg PO DAILY 30 days #30 tabs 08/19/23 10/20/23 10/19/23 Rx release 24 hr oxycodone 30 mg tablet 30 mg PO Q4H PRN Pain 2 days #12 08/19/23 10/20/23 10/19/23 Rx tabs pantoprazole 40 mg tablet,delayed 40 mg PO BID #60 tabs 08/19/23 10/20/23 10/19/23 Rx release potassium chloride 20 mEq 20 meq PO DAILY 15 days #15 tabs 08/19/23 10/20/23 10/19/23 Rx tablet,extended release spironolactone 25 mg tablet 25 mg PO BID 30 days #30 tabs 08/19/23 10/20/23 10/19/23 Rx sumatriptan succinate 50 mg tablet See Rx Instructions .Route 08/19/23 10/20/23 10/19/23 Rx .COMPLEX 10 days #10 tabs tizanidine 4 mg tablet 4 mg PO Q6H PRN Spasms 10 days #30 08/19/23 10/20/23 10/19/23 Rx tabs umeclidinium 62.5 mcg-vilanterol 1 inh inhalation DAILY 30 days #30 08/19/23 10/20/23 10/19/23 Rx 25 mcg/actuation powdr for ea inhalation (Anoro Ellipta) albuterol sulfate 90 mcg/actuation 2 puff inhalation Q6H PRN 10/19/23 10/20/23 10/19/23 History aerosol inhaler (Ventolin HFA) Shortness Of Breath amitriptyline 75 mg tablet 75 mg PO BEDTIME 10/19/23 10/20/23 10/19/23 History doxepin 10 mg capsule 10 mg PO BEDTIME 10/19/23 10/20/23 10/19/23 History furosemide 20 mg tablet (Lasix) 20 mg PO DAILY PRN edema #14 tabs 10/19/23 10/22/23 Unknown Rx furosemide 40 mg tablet See Rx Instructions .Route .COMPLEX 10/19/23 10/20/23 10/19/23 History levalbuterol tartrate 45 2 inh inhalation Q6H PRN Shortness 10/19/23 10/22/23 Unknown History mcg/actuation aerosol inhaler Of Breath (Xopenex HFA) morphine 30 mg tablet,extended 30 mg PO Q12H 10/19/23 10/20/23 10/19/23 History release rimegepant 75 mg disintegrating 75 mg PO DAILY PRN Migraine 10/19/23 10/20/23 10/19/23 History tablet (Nurtec ODT) Headache Allergies Allergy/AdvReac Type Severity Reaction Status Date / Time codeine Allergy Unknown Unknown Verified 09/23/23 14:44 aspirin Allergy ALGY-Hives Verified 09/23/23 14:44 diphenhydramine Allergy ADR-Muscle Verified 09/23/23 14:44 [From Benadryl] Pain Sulfa (Sulfonamide Allergy ALGY-Swell Verified 09/23/23 14:44 Antibiotics) Lip/Tongue/Throat Current Medications Generic Name Dose Route Start Last Admin Trade Name Freq PRN Reason Stop Dose Admin Amitriptyline HCl 75 mg 10/20/23 21:00 10/22/23 20:46 Amitriptyline 25 Mg Tablet PO 75 mg BEDTIME JOJO Administration Doxepin HCl 10 mg 10/20/23 21:00 10/22/23 20:46 Doxepin 10 Mg Capsule PO 10 mg BEDTIME JOJO Administration Enoxaparin Sodium 40 mg 10/20/23 21:00 10/22/23 20:45 Enoxaparin 40 Mg/0.4 Ml Syringe SUBCUT 40 mg Q24H JOJO Administration Furosemide 40 mg 10/21/23 09:00 10/22/23 08:03 Furosemide 40 Mg Tablet PO 40 mg DAILY JOJO Administration Gabapentin 300 mg 10/20/23 21:00 10/22/23 20:46 Gabapentin 300 Mg Capsule PO 300 mg BEDTIME JOJO Administration Sodium Chloride 1,000 mls @ 30 mls/hr 10/23/23 08:00 10/23/23 08:16 Sodium Chloride 0.9% IV 10/24/23 07:59 30 mls/hr .Q24H JOJO Administration Insulin Human Lispro 0 unit 10/20/23 18:00 10/23/23 07:11 Insulin Lispro 100 Unit/1 Ml SUBCUT Not Given TIDWM [facility] Protocol Lactulose 60 gm 10/20/23 21:00 10/22/23 20:49 Lactulose Oral Liq 20 Gm/30 Ml Udc PO Not Given TID JOJO Lamotrigine 200 mg 10/21/23 09:00 10/22/23 08:02 Lamotrigine 100 Mg Tablet PO 200 mg DAILY JOJO Administration Levetiracetam 750 mg 10/20/23 18:30 10/22/23 17:56 Levetiracetam 500 Mg Tablet PO 750 mg BID JOJO Administration Levothyroxine Sodium 50 mcg 10/21/23 06:00 10/23/23 05:10 Levothyroxine 50 Mcg Tablet PO 50 mcg QAM JOJO Administration Magnesium Lactate 84 mg 10/21/23 09:25 10/22/23 08:04 Magnesium Lactate 84 Mg Tablet PO 84 mg DAILY JOJO Administration Naloxone HCl 0.1 mg 10/20/23 17:58 10/20/23 19:05 Naloxone 0.4 Mg/Ml Sdv IVP 0.1 mg Q2M PRN Administration OPIATERV Nicotine 1 patch 10/21/23 09:00 10/22/23 09:17 Nicotine 21 Mg Patch TRANSDERMA 1 patch DAILY JOJO Administration Nifedipine 30 mg 10/21/23 09:00 10/22/23 08:04 Nifedipine Er (24 Hr) 30 Mg Tablet PO 30 mg DAILY JOJO Administration Oxycodone HCl 30 mg 10/22/23 15:49 10/23/23 06:36 Oxycodone Ir 30 Mg Tablet PO 30 mg Q4H PRN Administration SEVERE PAIN Pantoprazole Sodium 40 mg 10/20/23 21:00 10/22/23 20:47 Pantoprazole 40 Mg Sdv IVP 40 mg Q24H JOJO Administration Rifaximin 600 mg 10/21/23 09:25 10/22/23 17:56 Rifaximin 200 Mg Tablet PO 600 mg BID JOJO Administration Spironolactone 25 mg 10/20/23 18:00 10/22/23 17:56 Spironolactone 25 Mg Tablet PO 25 mg BID JOJO Administration Zinc Gluconate 50 mg 10/21/23 09:00 10/22/23 08:02 Zinc Gluconate 50 Mg Tablet PO 50 mg DAILY JOJO Administration [facility] Anesthesia Medical History 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 Pain management contract signed Metabolic encephalopathy SSS (sick sinus syndrome) Presence of permanent cardiac pacemaker Seizure disorder Tobacco dependency Hypothyroidism Accidental fentanyl overdose Overdose Cardiac arrest COPD (chronic obstructive pulmonary disease) Chronically on 3 L of oxygen Smoker Thrombocytopenia Bilateral pulmonary embolism Hepatitis B Pulmonary embolism Nicotine dependence, cigarettes, with unspecified nicotine-induced disorders Chronic hepatitis B Chronic abdominal pain Chronic hip pain Leg cramps Stomach cancer Pelvic inflammatory disease Diabetes mellitus Hypertension Encephalopathy Cirrhosis Gastroesophageal reflux GI bleeding Surgical History H/O right hemicolectomy History of right hemicolectomy H/O tubal ligation History of laparotomy History of hysterectomy Family History Mother Diabetes Father CAD (coronary artery disease) Other Cancer Social History Smoking and tobacco/nicotine status: former use of tobacco/nicotine Quit status (tobacco/nicotine): has quit using Year quit tobacco: 2020 Former quit date comment: 2ppd x 26 year Hx Alcohol intake: never Substance/Drug Use: never Data Anesthesia 10/23/23 05:30 10/23/23 05:30 Short CBC 10/22/23 10/23/23 Range/Units 05:00 05:30 WBC 5.90 5.77 (3.29-11.43) 10^3/uL Hgb 12.10 12.40 (11.27-16.99) g/dL Hct 35.8 L 38.8 (36-47) % MCV 90.4 94.2 (85-98) fl Plt Count 148 L 151 L (157-399) 10^3/cmm Neut % (Auto) 47.6 49.3 % Neut # (Auto) 2.81 2.85 (1.8-7.7) 10^3/uL BMP 10/22/23 10/23/23 05:00 05:30 Sodium 141 137 Potassium 3.4 L 3.4 L Chloride 106 106 Carbon Dioxide 24 20 L BUN 8 9 Creatinine 0.5 0.5 Glucose 126 H 107 Calcium 8.2 L 8.2 L Liver Function 10/22/23 10/23/23 Range/Units 05:00 05:30 Total Bilirubin 0.6 0.5 (0.15-1.2) mg/dL AST 30 25 (0-32) U/L ALT 15 11 (0-33) U/L Alkaline Phosphatase 98 88 (35-105) U/L Albumin 2.9 L 2.7 L (3.5-5.2) g/dL Coags 10/22/23 10/23/23 05:00 05:30 C-Reactive Protein 17.4 H 10.6 H Microbiology 10/23/23 07:01 Blood Culture - Preliminary Blood SPECIMEN COLLECTED 10/23/23 05:30 Blood Culture - Preliminary Blood SPECIMEN COLLECTED 10/20/23 12:23 Blood Culture - Preliminary Blood Enterobacter cloacae Cardiac Studies: Echocardiogram 10/21/23
--- NOTE | 2023-10-23 09:43 | P.PN_ITS ---
Subjective 2 Subjective: Patient is stable. No chest pain. Vitals/I&O/Wt Last Vital Signs Temp 97.6 F 10/23/23 09:20 Pulse 75 10/23/23 09:20 Resp 18 10/23/23 09:20 BP 120/78 10/23/23 09:20 Pulse Ox 94 10/23/23 09:20 O2 Del Method Room Air 10/23/23 09:20 O2 Flow Rate 10 10/23/23 08:58 10/22/23 10/23/23 10/23/23 22:59 06:59 14:59 Intake Total 880 / 1410 300 / 1710 750 / 750 Balance 880 / 1410 300 / 1710 750 / 750 Weight last 48 hrs Weight 220 lb Weight 236 lb 6 oz Physical Exam 2 Narrative: GENERAL: Patient is alert, awake and oriented x3. [] NECK: No jugular vein distension. [] HEENT: No cyanosis. No icterus. No pallor. [] HEART: Regular S1 and S2.Grade 2/6 systolic murmur LUNGS: Clear to auscultate bilaterally. [] CENTRAL NERVOUS SYSTEM: Grossly nonfocal. [] EXTREMITIES: Lower extremities with 1+ edema bilaterally Data 10/23/23 05:30 10/23/23 05:30 Micro: Microbiology 10/23/23 07:01 Blood Culture - Preliminary Blood SPECIMEN COLLECTED 10/23/23 05:30 Blood Culture - Preliminary Blood SPECIMEN COLLECTED 10/20/23 12:23 Blood Culture - Preliminary Blood Enterobacter cloacae A&P Assessment and plan (1) Presence of permanent cardiac pacemaker: (2) Cirrhosis of liver: (3) Bacteremia due to Enterococcus: Plan JOELLE performed today showed 1.1 x 1 cm echogenic structure at the base of posterior mitral leaflet on atrial aspect. It is not mobile. Appearance is not typical for vegetation however given patient's presentation, overall index of suspicion is high for endocarditis. To better characterize this mass, recommend cardiac MRI as size of this structure is large. Because of non-availability of cardiac MRI at our center, will recommend transfer. Pacemaker leads not showing any obvious vegetation, ID recommendations if leads need explant. Antibiotic therapy per ID team. Thank you for involving us with care of this patient. We will continue to follow. Please call with questions. Attestations 2 Medical Necessity Statement*: Care expected to cross 2 midnights. Coding Level of Care Code Acute Code for Chg Fwd Diagnoses Presence of permanent cardiac pacemaker Z95.0 Cirrhosis of liver K74.60 Bacteremia due to Enterococcus R78.81; B95.2
[2023-10-23 11:18] LABS: Glucose Point of Care 100 mg/dL (70-110)
[2023-10-23] MEDS: lipase-protease-amylase Capsule 1 EACH PO ×2 (11:39→17:01)
[2023-10-23] MEDS: ampicillin 2,000 MG in sodium chloride 0.9% (plus) 50 ML 100 MG IV ×2 (11:40→15:46)
[2023-10-23] MEDS: nicotine 21 mg Patch 1 PATCH TRANSDERMA (12:27)
[2023-10-23 12:34] LABS: Ammonia 127 umol/L (11-51)
--- NOTE | 2023-10-23 13:02 | PC.NURSE ---
This nurse talked to Elizabeth camacho [place] who did patients triage. She says Dr. Guillermo has accepted pt and they are awaiting a bed. [phone]
--- NOTE | 2023-10-23 15:09 | ANE.PACU2 ---
Inpatient post-anesthesia follow up: Airway intact: Yes Vital signs: Temperature 98.2 F Pulse Rate 75 Respiratory Rate 16 Blood Pressure 112/74 Pulse Oximetry 93 Oxygen Delivery Me thod Room Air Oxygen Flow Rate 10 Fraction of Inspir ed Oxygen Hydration adequate: Yes Nausea and vomiting: No Pain level: 2 Mental status: Baseline
--- NOTE | 2023-10-23 15:14 | P.PN_ITS ---
Subjective 2 Subjective: - Patient was seen this morning, denies any fevers, no chills, no cough, no abdominal pain, no headache, blurry vision, no focal weakness -Patient underwent transesophageal echoc ardiogram -CONCLUSIONS LV systolic function is normal with EF of 55 to 60%. Pacemaker lead is seen in right atrium and right ventricle. No visible vegetation. Mitral valve is thickened. At the base of the posterior mitral valve leaflet on atrial side, there is a 1.1x1.0 cm in diameter echogenic structure that is not mobile. Differential will include a vegetation (not typical appearance for vegetation) vs left atrial mass. Mild to moderate mitral regurgitation. Recommend cardiac MRI to further characterize the mass -Spoke to cardiology about the results, given her bacteremia, highly suspicious for endocarditis, vegetation, recommended transfer/ to tertiary level center/CT surgery evaluation, cardiac MRI evaluation -Spoke to patient about patient's findin gs, discussed transfer to tertiary level center, she is agreeable, will discuss with [place] -Spoke to CT surgery at [facility], discussed case in detail, discussed her bacteremia, Enterococcus faecalis, that she is on antibiotic therapy for transesophageal echocardiogram findings. They recommended patient to have CT surgery evaluation at [facility], recommended transfer, transfer initiated, awaiting bed -Spoke to patient about her acceptance a [facility] for CT surgery evaluation, for subacute bacterial endocarditis, mitral valve vegetation, she voiced understanding, all question answered, agreed to proceed with transfer -Currently awaiting bed, continue IV ant ibiotics Vitals/I&O/Wt Last Vital Signs Temp 98.2 F 10/23/23 12:00 Pulse 75 10/23/23 12:00 Resp 16 10/23/23 12:00 BP 112/74 10/23/23 12:00 Pulse Ox 93 10/23/23 12:00 O2 Del Method Room Air 10/23/23 12:00 O2 Flow Rate 10 10/23/23 08:58 10/23/23 10/23/23 10/23/23 06:59 14:59 22:59 Intake Total 300 / 1710 1040 / 1040 Balance 300 / 1710 1040 / 1040 Weight last 48 hrs Weight 99.79 kg Weight 107.218 kg Physical Exam 2 Const: COMMON NORMALS: no acute distress and patient oriented x3 Resp: COMMON NORMALS: normal respiratory effort, No retractions, No use of accessory muscles and clear to auscultation bilaterally AUSCULTATION: clear to auscultation bilaterally Cardio: COMMON NORMALS: regular rate, regular rhythm, S1 normal heart sound present and S2 normal heart sound present RATE: regular rate RHYTHM: r egular rhythm HEART SOUNDS: S1 normal heart sound present and S2 normal heart sound present GI: COMMON NORMALS: Normal to inspection, nondistended, normoactive bowel sounds present and non-tender Extremity: COMMON NORMALS: no pedal edema Neuro: COMMON NORMALS: patient oriented x3 Psych: COMMON NORMALS: mental status grossly normal Data 10/23/23 05:30 10/23/23 05:30 Micro: Microbiology 10/23/23 07:01 Blood Culture - Preliminary Blood SPECIMEN COLLECTED 10/23/23 05:30 Blood Culture - Preliminary Blood SPECIMEN COLLECTED 10/20/23 12:23 Blood Culture - Preliminary Blood Enterobacter cloacae A&P Assessment and plan (1) Bacteremia due to Enterococcus: Plan Enterococcus faecalis bacteremia, highly suspicious for subacute bacterial endocarditis ?4/4 blood cultures positive -Her last ER visit UA was within normal limits -Abdominal CT -FINDINGS: Liver: Mildly nodular liver contour. Negative for mass. Subcentimeter cyst in the inferior right hepatic lobe stable from comparison. Gallbladder and biliary ducts: Normal. No calcified stones. No ductal dilation. Pancreas: Normal. No ductal dilation. Spleen: Mild severity splenomegaly redemonstrated. Adrenal glands: Normal. No mass. Kidneys and ureters: Punctate nonobstructing left kidney lower pole stone. Negative for hydronephrosis. Negative for perinephric inflammation. Stomach and bowel: Unremarkable. No obstruction. No mucosal thickening. Appendix: No evidence of appendicitis. Intraperitoneal space: Unremarkable. No free air. No significant fluid collection. Vasculature: Venous splenorenal shunt is noted. Plaques of the abdominal aorta wall. Negative for aneurysm or dissection. Lymph nodes: Unremarkable. No enlarged lymph nodes. Urinary bladder: Unremarkable as visualized. Reproductive: Hysterectomy. Bones/joints: Unremarkable. No acute fracture. Soft tissues: Umbilical hernia without complication. CT/CT abdomen pelvis w con* [id number] IMPRESSION: Negative for acute abdominopelvic pathology. -Chest x-ray XR/XR chest 1V portable [id number] Impression: 1. Clearing of bilateral basilar opacities. 2. Atherosclerosis and permanent pacemaker. -Source unclear? -Does complain of abdominal pain, but also has diffuse pain all over, no fluid wave seen, could be spontaneous bacterial peritonitis, liver ultrasound, no ascites, CT scan shows no evidence of ascites ? Doubt UTI or pyelonephritis given CT scan findings UA within normal limits ? She does have pacemaker, possible pacemaker lead infection? ? She does have a history of drug use in the past, current urine toxicology screen within normal limits, could be subacute bacterial endocarditis? -Patient underwent transesophageal echocardiogram -CONCLUSIONS LV systolic function is normal with EF of 55 to 60%. Pacemaker lead is seen in right atrium and right ventricle. No visible vegetation. Mitral valve is thickened. At the base of the posterior mitral valve leaflet on atrial side, there is a 1.1x1.0 cm in diameter echogenic structure that is not mobile. Differential will include a vegetation (not typical appearance for vegetation) vs left atrial mass. Mild to moderate mitral regurgitation. Recommend cardiac MRI to further characterize the mass -Spoke to cardiology about the results, given her bacteremia, highly suspicious for endocarditis, vegetation, recommended transfer/ to tertiary level center/CT surgery evaluation, cardiac MRI evaluation -Spoke to patient about patient's findings, discussed transfer to tertiary level center, she is agreeable, will discuss with [place] -Spoke to CT surgery at [facility], discussed case in detail, discussed her bacteremia, Enterococcus faecalis, that she is on antibiotic therapy for transesophageal echocardiogram findings. They recommended patient to have CT surgery evaluation at [place], recommended transfer, transfer initiated, awaiting bed -Spoke to patient about her acceptance at [facility] for CT surgery evaluation, for subacute bacterial endocarditis, mitral valve vegetation, she voiced understanding, all question answered, agreed to proceed with transfer -Currently awaiting bed, continue IV antibiotics ? Plan ? Currently on ampicillin -Currently on Rocephin ? Follow repeat blood cultures, repeat blood culture showing Enterobacter species -Follow inflammatory markers Follow repeat blood cultures ? Continue to monitor closely ? Full code Lovenox for DVT prophylaxis -Accepted at [facility], for CT surgery evaluation, awaiting bed Hyperammonemia ? Likely secondary to liver cirrhosis ? Monitor ammonia levels ? Continue lactulose Continue rifaximin Pulmonary embolism ? Off anticoagulation therapy History of ischemic bowel -Requiring hemicolectomy Peptic ulcer disease History of chronic hepatitis B, continue home medication History of drug abuse, follow urine toxicology screen, serum drug screen History of liver cirrhosis ? Continue home lactulose ? Continue home spironolactone Continue home Lasix History of hypothyroidism continue levothyroxine History of type 2 diabetes mellitus l low-dose sliding scale History of anxiety ? Continue doxepin -Continue gabapentin -Continue Lamictal Seizure disorder, continue medications as above including Keppra Concerns for drug use/drug over dose while on [facility] 10/20/2023 at 6:30 PM -patient was moved to [facility], patient walked to the bathroom, with a black case, when she got back to her bed, she was very lethargic, -According to nursing staff, syringes, a spoon, and possible drug paraphernalia was found on her -Nurses had called me at roughly 7 PM, there was concerns for drug overdose, she was given 0.1 mg of Narcan twice and then 0.4 mg of Narcan, after the third dose, she was much more alert awake, could follow commands, but still drowsy -Monitored overnight, one-to-one sitter, telemetry monitoring, in the morning of 10/21/2023 she was alert oriented x 3, following all commands, no focal neurologic deficits no facial droop no slurring of words, no headache, no blurry vision, no neck pain, no neck stiffness, CODE STATUS, patient is DNR/DNI, confirmed with this multiple times, nursing staff at bedside Lovenox for DVT prophylaxis Protonix for GI prophylaxis -Patient underwent transesophageal echocardiogram -CONCLUSIONS LV systolic function is normal with EF of 55 to 60%. Pacemaker lead is seen in right atrium and right ventricle. No visible vegetation. Mitral valve is thickened. At the base of the posterior mitral valve leaflet on atrial side, there is a 1.1x1.0 cm in diameter echogenic structure that is not mobile. Differential will include a vegetation (not typical appearance for vegetation) vs left atrial mass. Mild to moderate mitral regurgitation. Recommend cardiac MRI to further characterize the mass -Spoke to cardiology about the results, given her bacteremia, highly suspicious for endocarditis, vegetation, recommended transfer/ to tertiary level center/CT surgery evaluation, cardiac MRI evaluation -Spoke to patient about patient's findings, discussed transfer to tertiary level center, she is agreeable, will discuss with [place] -Spoke to CT surgery at [facility], discussed case in detail, discussed her bacteremia, Enterococcus faecalis, that she is on antibiotic therapy for transesophageal echocardiogram findings. They recommended patient to have CT surgery evaluation at [facility], recommended transfer, transfer initiated, awaiting bed -Spoke to patient about her acceptance at [facility] for CT surgery evaluation, for subacute bacterial endocarditis, mitral valve vegetation, she voiced un Attestations 2 Medical Necessity Statement*: Patient requires hospitalization for subacute bacterial endocarditis, mitral valve vegetation, requiring CT surgery evaluation at [facility] were currently receiving IV antibiotics Diagnoses Bacteremia due to Enterococcus R78.81; B95.2
[2023-10-23] MEDS: lactulose oral liq 20 gm/30 mL UDC 60 GM PO (15:51)
[2023-10-23 16:05] LABS: Glucose Point of Care 104 mg/dL (70-110)
--- NOTE | 2023-10-23 16:12 | PM.TDS ---
Transfer Summary Providers Date of Admission: 10/20/23 16:11 Date of Discharge/Transfer: 10/23/23 Attending Provider at Admission: Neftali Barrera MD Attending Provider at Transfer: Neftali Barrera MD Primary Care Provider: Francisco Mckinley DO Transfer Plans: Anticipated date of transfer: 10/23/23. Diagnoses at Discharge Discharge Diagnosis (1) Bacteremia due to Enterococcus: Status: Acute Reason for Visit Reason for Visit was called back due to blood work Hospital Course Hospital Course Maribell Foreman is a 48 year old female with a past medical history of pulmonary embolism, off anticoagulant therapy, history of ischemic bowel requiring hemicolectomy, peptic ulcer disease, history of chronic hepatitis B, history of drug abuse, history of liver cirrhosis, history of hypothyroidism, type 2 diabetes mellitus, COPD, symptomatic bradycardia requiring pacemaker placement, orthostatic hypotension, hypertension, history of hepatic encephalopathy, recent history of methamphetamine use, history of seizure disorder, who presents to [facility] due to diffuse pain, and Enterococcus blood cultures. Currently patient is alert oriented x 4, following all commands, her complaint is that she hurts all over, she does not feel well, no fevers, chills, the reason that she is here in the hospital is ER called her back because of positive blood cultures. She tells me that currently she is living out of her car, she has an ankle bracelet on, she is not exactly forthcoming of the reason of her current social situation, she denies any IV drug use, denies any drug use, does report smoking cigarettes, does report vaping, denies any alcohol use, denies a history of HIV denies a history of hepatitis C, does report history of hepatitis B. She reports fatigue, malaise, no fevers, no chills, does report nausea and vomiting, she tells me that yesterday she had episode of significant vomiting, with a slight amount of blood in it, none since then, she tells me that her abdomen hurts her all over, denies any dysuria, no hematuria, does report bilateral flank pain, does report back pain, but reports pain all over, no headache, no blurry vision, no chest pain, no palpitations, denies any shortness of breath, does report some superficial breaks in her skin of her right arm, from scratching, denies any diarrhea, r she has had 3 ER visits, in the last month, to them for abdominal pain, her last ER visit, 10/19/2023, she is complaining of abdominal pain, CT scan head no acute abnormalities, however 204 blood cultures positive for Enterococcus species Patient was admitted to [facility] for Enterococcus faecalis bacteremia Enterococcus faecalis bacteremia, highly suspicious for subacute bacterial endocarditis ?4/4 blood cultures positive -Her last ER visit UA was within normal limits -Abdominal CT -FINDINGS: Liver: Mildly nodular liver contour. Negative for mass. Subcentimeter cyst in the inferior right hepatic lobe stable from comparison. Gallbladder and biliary ducts: Normal. No calcified stones. No ductal dilation. Pancreas: Normal. No ductal dilation. Spleen: Mild severity splenomegaly redemonstrated. Adrenal glands: Normal. No mass. Kidneys and ureters: Punctate nonobstructing left kidney lower pole stone. Negative for hydronephrosis. Negative for perinephric inflammation. Stomach and bowel: Unremarkable. No obstruction. No mucosal thickening. Appendix: No evidence of appendicitis. Intraperitoneal space: Unremarkable. No free air. No significant fluid collection. Vasculature: Venous splenorenal shunt is noted. Plaques of the abdominal aorta wall. Negative for aneurysm or dissection. Lymph nodes: Unremarkable. No enlarged lymph nodes. Urinary bladder: Unremarkable as visualized. Reproductive: Hysterectomy. Bones/joints: Unremarkable. No acute fracture. Soft tissues: Umbilical hernia without complication. CT/CT abdomen pelvis w con* [id number] IMPRESSION: Negative for acute abdominopelvic pathology. -Chest x-ray XR/XR chest 1V portable [id number] Impression: 1. Clearing of bilateral basilar opacities. 2. Atherosclerosis and permanent pacemaker. -Source unclear? -Does complain of abdominal pain, but also has diffuse pain all over, no fluid wave seen, could be spontaneous bacterial peritonitis, liver ultrasound, no ascites, CT scan shows no evidence of ascites ? Doubt UTI or pyelonephritis given CT scan findings UA within normal limits ? She does have pacemaker, possible pacemaker lead infection? ? She does have a history of drug use in the past, current urine toxicology screen within normal limits, could be subacute bacterial endocarditis? -Patient underwent transesophageal echocardiogram -CONCLUSIONS LV systolic function is normal with EF of 55 to 60%. Pacemaker lead is seen in right atrium and right ventricle. No visible vegetation. Mitral valve is thickened. At the base of the posterior mitral valve leaflet on atrial side, there is a 1.1x1.0 cm in diameter echogenic structure that is not mobile. Differential will include a vegetation (not typical appearance for vegetation) vs left atrial mass. Mild to moderate mitral regurgitation. Recommend cardiac MRI to further characterize the mass -Spoke to cardiology about the results, given her bacteremia, highly suspicious for endocarditis, vegetation, recommended transfer/ to tertiary level center/CT surgery evaluation, cardiac MRI evaluation -Spoke to patient about patient's findings, discussed transfer to tertiary level center, she is agreeable, will discuss with [place] -Spoke to CT surgery at [facility], discussed case in detail, discussed her bacteremia, Enterococcus faecalis, that she is on antibiotic therapy for transesophageal echocardiogram findings. They recommended patient to have CT surgery evaluation at [place], recommended transfer, transfer initiated, awaiting bed -Spoke to patient about her acceptance at [facility] for CT surgery evaluation, for subacute bacterial endocarditis, mitral valve vegetation, she voiced understanding, all question answered, agreed to proceed with transfer -Currently awaiting bed, continue IV antibiotics ? Plan ? Currently on ampicillin -Currently on Rocephin ? Follow repeat blood cultures, repeat blood culture showing Enterobacter species -Follow inflammatory markers Follow repeat blood cultures ? Continue to monitor closely ? Full code Lovenox for DVT prophylaxis -Accepted at [place], for CT surgery evaluation, awaiting bed Hyperammonemia, 103 ? Likely secondary to liver cirrhosis ? Monitor ammonia levels ? Continue lactulose Continue rifaximin Pulmonary embolism ? Off anticoagulation therapy History of ischemic bowel -Requiring hemicolectomy Peptic ulcer disease History of chronic hepatitis B, continue home medication History of drug abuse, follow urine toxicology screen, serum drug screen History of type 2 diabetes mellitus l low-dose sliding scale History of anxiety ? Continue doxepin -Continue gabapentin -Continue Lamictal Seizure disorder, continue medications as above including Keppra Concerns for drug use/drug over dose while on [facility] 10/20/2023 at 6:30 PM -patient was moved to [facility], patient walked to the bathroom, with a black case, when she got back to her bed, she was very lethargic, -According to nursing staff, syringes, a spoon, and possible drug paraphernalia was found on her -Nurses had called me at roughly 7 PM, there was concerns for drug overdose, she was given 0.1 mg of Narcan twice and then 0.4 mg of Narcan, after the third dose, she was much more alert awake, could follow commands, but still drowsy -Monitored overnight, one-to-one sitter, telemetry monitoring, in the morning of 10/21/2023 she was alert oriented x 3, following all commands, no focal neurologic deficits no facial droop no slurring of words, no headache, no blurry vision, no neck pain, no neck stiffness, History of liver cirrhosis ? Continue home lactulose ? Continue home spironolactone Continue home Lasix History of hypothyroidism continue levothyroxine Physical Exam Const: COMMON NORMALS: no acute distress and patient oriented x3 Resp: COMMON NORMALS: normal respiratory effort, No retractions, No use of accessory muscles and clear to auscultation bilaterally AUSCULTATION: clear to auscultation bilaterally Cardio: COMMON NORMALS: regular rate, regular rhythm, S1 normal heart sound present and S2 normal heart sound present RATE: regular rate RHYTHM: regular rhythm HEART SOUNDS: S1 normal heart sound present and S2 normal heart sound present GI: COMMON NORMALS: Normal to inspection, nondistended, normoactive bowel sounds present and non-tender Extremity: COMMON NORMALS: no pedal edema Neuro: COMMON NORMALS: patient oriented x3 Psych: COMMON NORMALS: mental status grossly normal TS Data Studies Completed and Pending Pending at discharge Category Date Time Status Blood Culture Stat Lab 10/20/23 12:51 Results Blood Culture Stat Lab 10/23/23 07:01 Results Drug Screen Serum [Serum Drug Panel 7] Routine Lab 10/20/23 16:11 Received Drug Screen Serum [Serum Drug Panel 7] Stat Lab 10/21/23 14:37 Received Hepatitis B Surface AG w/Conf Routine Lab 10/20/23 12:53 Received Completed Studies During Hospitalization Category Date Time Status CV. echo complete* [id number] Stat Ultrasound 10/21/23 06:00 Completed CV. echo transesophageal [id number] Routine Ultrasound 10/23/23 08:30 Completed US liver [id number] Stat Ultrasound 10/21/23 06:00 Completed Laboratory Last Values WBC 5.77 10^3/uL (3.29-11.43) 10/23/23 05:30 RBC 4.12 10^6/uL (3.85-5.65) 10/23/23 05:30 Hgb 12.40 g/dL (11.27-16.99) 10/23/23 05:30 Hct 38.8 % (36-47) 10/23/23 05:30 MCV 94.2 fl (85-98) 10/23/23 05:30 MCH 30.1 pg (27-33) 10/23/23 05:30 MCHC 32.0 g/dL (30-55) D 10/23/23 05:30 RDW 13.9 % (12.1-15.1) 10/23/23 05:30 Plt Count 151 10^3/cmm (157-399) L 10/23/23 05:30 MPV 10.1 fL (7.4-10.4) 10/23/23 05:30 Neut % (Auto) 49.3 % 10/23/23 05:30 Lymph % (Auto) 32.6 % 10/23/23 05:30 Stearns % (Auto) 10.9 % 10/23/23 05:30 Eos % (Auto) 5.4 % 10/23/23 05:30 Baso % (Auto) 0.9 % 10/23/23 05:30 Neut # (Auto) 2.85 10^3/uL (1.8-7.7) 10/23/23 05:30 Lymph # (Auto) 1.9 10^3/uL (0.8-4.8) 10/23/23 05:30 Stearns # (Auto) 0.6 10^3/uL (0.2-0.9) 10/23/23 05:30 Eos # (Auto) 0.3 10^3/uL (0.0-0.8) 10/23/23 05:30 Baso # (Auto) 0.1 10^3/uL (0.0-0.1) 10/23/23 05:30 Nucleated RBC % (auto) 0 % 10/23/23 05:30 Nucleated RBCs # 0.0 /100WBC 10/23/23 05:30 ESR 23 mm/hr (0-15) H 10/20/23 12:51 PT 14.80 SECONDS (12.1-14.9) 10/20/23 17:08 INR 1.13 (0.8-1.2) 10/20/23 17:08 Specimen Type Arterial 10/20/23 19:08 Sample Site Radial, right 10/20/23 19:08 ABG pH 7.54 (7.35-7.45) H 10/20/23 19:08 ABG pCO2 31.1 mmHg (35-45) L 10/20/23 19:08 ABG pO2 75.8 mmHg (80.0-100.0) L 10/20/23 19:08 ABG HCO3 26.8 mmol/L (22-26) H 10/20/23 19:08 ABG O2 Saturation 97.6 10/20/23 19:08 ABG Base Excess 4.6 mmol/L (-2.0-2.0) H 10/20/23 19:08 Dusty Test Pos 10/20/23 19:08 A-a O2 Gradient 4.4 mmHg (5-10) L 10/20/23 19:08 Hematocrit 35.1 % (37-47) L 10/20/23 19:08 Hgb O2 Saturation 95.2 % (95-100) 10/20/23 19:08 Carboxyhemoglobin 2.2 %THgb (0.4-20.1) 10/20/23 19:08 Methemoglobin 0.2 % (0.4-1.5) L 10/20/23 19:08 Total Hemoglobin 11.4 g/dL (12-16) L 10/20/23 19:08 Sodium 142.0 mmol/L (131-143) 10/20/23 19:08 Potassium 3.1 mmol/L (3.5-5.0) L 10/20/23 19:08 Glucose 166.0 mg/dL (70-115) H 10/20/23 19:08 Ionized Calcium 1.1 mmol/L (1.1-1.4) 10/20/23 19:08 O2 Delivery Device Room air 10/20/23 19:08 Lining Presser ID [email or web address] 10/20/23 19:08 Sodium 137 mmol/L (136-145) 10/23/23 05:30 Potassium 3.4 mmol/L (3.5-5.1) L 10/23/23 05:30 Chloride 106 mmol/L (98-107) 10/23/23 05:30 Carbon Dioxide 20 mmol/L (22-29) L 10/23/23 05:30 Anion Gap 14.4 (5-19) 10/23/23 05:30 BUN 9 mg/dL (6-20) 10/23/23 05:30 Creatinine 0.5 mg/dL (0.5-0.9) 10/23/23 05:30 GFR Calculation 131.1 mL/min (90-130) H 10/23/23 05:30 Glucose 107 mg/dL (65-115) 10/23/23 05:30 POC Glucose 104 mg/dL (70-110) 10/23/23 15:52 Estimat Average Glucose 100 10/20/23 12:51 Hemoglobin A1c 5.1 % (4.0-6.0) 10/20/23 12:51 Calculated Osmolality 283 mOsm/kg (285-295) L 10/23/23 05:30 Lactic Acid 1.4 mmol/L (0.5-2.2) 10/20/23 12:22 Calcium 8.2 mg/dL (8.5-10.5) L 10/23/23 05:30 Phosphorus 4.1 mg/dL (2.5-4.5) 10/23/23 05:30 Magnesium 1.6 mg/dL (1.7-2.3) L 10/23/23 05:30 Total Bilirubin 0.5 mg/dL (0.15-1.2) 10/23/23 05:30 GGT 19 U/L (5-36) 10/20/23 16:11 AST 25 U/L (0-32) 10/23/23 05:30 ALT 11 U/L (0-33) 10/23/23 05:30 Alkaline Phosphatase 88 U/L (35-105) 10/23/23 05:30 Ammonia 127 umol/L (11-51) H 10/23/23 12:10 Lactate Dehydrogenase 240 U/L (135-214) H 10/20/23 16:11 C-Reactive Protein 10.6 mg/L (0.0-4.9) H 10/23/23 05:30 Total Protein 6.6 g/dL (6.6-8.7) 10/23/23 05:30 Albumin 2.7 g/dL (3.5-5.2) L 10/23/23 05:30 Globulin 3.9 g/dL (1.3-4.6) 10/23/23 05:30 Triglycerides 95 mg/dL (0-150) 10/20/23 12:22 Cholesterol 236 mg/dL (0-200) H 10/20/23 12:22 LDL Cholesterol, Calc 123 mg/dL (50-129) 10/20/23 12:22 HDL Cholesterol 94 mg/dL (60-100) 10/20/23 12:22 LDL/HDL Ratio 1.31 RATIO (0.00-3.22) 10/20/23 12:22 Cholesterol/HDL Ratio 2.51 mg/dL (0.0-4.40) 10/20/23 12:22 Lipase 14 U/L (13-60) 10/20/23 16:11 Procalcitonin 1.43 ng/mL (0-0.5) H 10/23/23 05:30 TSH 2.22 uIU/mL (0.27-4.20) 10/20/23 12:22 HCG, Qual Negative (Negative) 10/20/23 14:54 Urine Color Yellow (Yellow) 10/20/23 14:54 Urine Appearance Clear (CLEAR) 10/20/23 14:54 Urine pH 8.0 (5-7) A 10/20/23 14:54 Ur Specific Meacham 1.010 (1.005-1.030) 10/20/23 14:54 Urine Protein Negative (Negative) 10/20/23 14:54 Urine Glucose (UA) Negative (Normal) 10/20/23 14:54 Urine Ketones Negative (Negative) 10/20/23 14:54 Urine Blood Negative (Negative) 10/20/23 14:54 Urine Nitrate Negative (Negative) 10/20/23 14:54 Urine Bilirubin Negative (Negative) 10/20/23 14:54 Urine Urobilinogen 2.0 mg/dL (Negative) H 10/20/23 14:54 Ur Leukocyte Esterase Negative (Negative) 10/20/23 14:54 Amorphous Sediment Not Reportable 10/20/23 14:54 Vancomycin Trough 9.2 ug/mL (10-15) L 10/22/23 13:19 Urine Opiates Screen Positive ng/mL (Negative) H 10/21/23 18:16 Ur Barbiturates Screen Negative ng/mL (Negative) 10/21/23 18:16 Ur Phencyclidine Scrn Negative ng/mL (Negative) 10/21/23 18:16 Ur Amphetamines Screen Negative ng/mL (Negative) 10/21/23 18:16 U Benzodiazepines Scrn Negative ng/mL (Negative) 10/21/23 18:16 Urine Cocaine Screen Negative ng/mL (Negative) 10/21/23 18:16 U Marijuana (THC) Screen Negative ng/mL (Negative) 10/21/23 18:16 Ethyl Alcohol < 10 mg/dL (0-10) 10/20/23 16:11 Hepatitis A IgM Ab Non-reactive (Nonreactive) 10/20/23 12:22 Hep Bs Antigen Reactive (Nonreactive) H 10/20/23 12:22 Hep B Core IgM Ab Non-reactive (Nonreactive) 10/20/23 12:22 Hepatitis C Antibody Reactive (Nonreactive) H 10/20/23 12:22 HCV RNA (PCR) IUs/ml <1.18 not detected Log IU/mL (NOT DETECTED) 10/20/23 18:30 HCV RNA (PCR) IU log10 <15 not detected IU/mL (NOT DETECTED) 10/20/23 18:30 HIV 1&2 Ab & HIV 1 Ag Non-reactive (Non-Reactiv) 10/20/23 12:22 HIV 1&2 Antibody Non-reactive (Non-Reactiv) 10/20/23 12:22 Radiology Impressions Liver Ultrasound 10/21/23 06:00 IMPRESSION: 1. Findings consistent with liver cirrhosis. Possible hepatofugal flow of the portal vein. No focal hepatic lesion. 2. Underdistended gallbladder with gallbladder wall thickening. Recent Clincial Data Last Vital Signs Temp 98.0 F 10/23/23 16:00 Pulse 73 10/23/23 16:00 Resp 16 10/23/23 16:00 BP 139/87 10/23/23 16:00 Pulse Ox 97 10/23/23 16:00 O2 Del Method Room Air 10/23/23 16:00 O2 Flow Rate 10 10/23/23 08:58 Vital Signs Temp Pulse Resp BP Pulse Ox O2 Del Method O2 Flow Rate 10/23/23 16:00 98.0 F 73 16 139/87 97 Room Air 10/23/23 15:45 16 95 10/23/23 12:00 98.2 F 75 16 112/74 93 Room Air 10/23/23 11:39 18 94 10/23/23 09:20 97.6 F 75 18 120/78 94 Room Air 10/23/23 09:08 71 18 103/69 92 Room Air 10/23/23 08:58 97.6 F 73 20 H 106/71 99 Simple Mask 10 10/23/23 08:04 97.6 F 72 18 119/76 98 Room Air 10/23/23 07:50 97.8 F 76 18 119/80 94 Room Air 10/23/23 07:43 16 Room Air 10/23/23 06:36 18 10/23/23 06:08 88 Intake & Output/Weight 10/21/23 10/22/23 10/23/23 10/24/23 06:59 06:59 06:59 06:59 Intake Total 1500 / 1500 1780 / 1780 1710 / 1710 1040 / 1040 Balance 1500 / 1500 1780 / 1780 1710 / 1710 1040 / 1040 Weight 110.875 kg 107.218 kg 99.79 kg Vitals Last Vital Signs Temp 98.0 F 10/23/23 16:00 Pulse 73 10/23/23 16:00 Resp 16 10/23/23 16:00 BP 139/87 10/23/23 16:00 Pulse Ox 97 10/23/23 16:00 O2 Del Method Room Air 10/23/23 16:00 O2 Flow Rate 10 10/23/23 08:58 TS Medications Medications Albuterol Sulfate (Albuterol 2.5 Mg/3 Ml Neb) 2.5 mg INHALATION Q6H.RESP PRN PRN Reason: SHORTNESS OF BREATH Amitriptyline HCl (Amitriptyline 25 Mg Tablet) 75 mg PO BEDTIME JOJO Last Admin: 10/22/23 20:46 Dose: 75 mg Lipase/Protease/Amylase (Vuskpd-Qtyyjdqu-Xzbkzok Capsule) 1 each PO TIDWM JOJO Last Admin: 10/23/23 11:39 Dose: 1 each Ceftriaxone Sodium (Ceftriaxone 2,000 Mg Sdv) 2,000 mg IVP Q12H JOJO; Protocol Doxepin HCl (Doxepin 10 Mg Capsule) 10 mg PO BEDTIME JOJO Last Admin: 10/22/23 20:46 Dose: 10 mg Enoxaparin Sodium (Enoxaparin 40 Mg/0.4 Ml Syringe) 40 mg SUBCUT Q24H JOJO Last Admin: 10/22/23 20:45 Dose: 40 mg Furosemide (Furosemide 40 Mg Tablet) 40 mg PO DAILY JOJO Last Admin: 10/22/23 08:03 Dose: 40 mg Gabapentin (Gabapentin 300 Mg Capsule) 300 mg PO BEDTIME JOJO Last Admin: 10/22/23 20:46 Dose: 300 mg Glucagon (Glucagon 1 Mg/Ml Kit 1 Ml) 1 mg IM ONCE PRN; Protocol PRN Reason: Adult Acute Hypoglycemia Nursing Prot. Dextrose (D5w) 500 mls @ 0 mls/hr IV ONCE PRN; Protocol PRN Reason: Adult Acute Hypoglycemia Prot Dextrose (D10w) 125 mls @ 750 mls/hr IV PRN PRN; Protocol PRN Reason: Adult Acute Hypoglycemia Nursing Protocol Dextrose (D10w) 250 mls @ 1,000 mls/hr IV PRN PRN; Protocol PRN Reason: Adult Acute Hypoglycemia Nursing Protocol Ampicillin Sodium 2,000 mg/ (Sodium Chloride) 50 mls @ 100 mls/hr IV Q4H [facility]; Protocol Last Admin: 10/23/23 15:46 Dose: 100 mls/hr Insulin Human Lispro (Insulin Lispro 100 Unit/1 Ml) 0 unit SUBCUT TIDWM JOJO; Protocol Last Admin: 10/23/23 11:29 Dose: Not Given Lactulose (Lactulose Oral Liq 20 Gm/30 Ml Udc) 60 gm PO TID JOJO Last Admin: 10/23/23 15:51 Dose: 60 gm Lamotrigine (Lamotrigine 100 Mg Tablet) 200 mg PO DAILY JOJO Last Admin: 10/22/23 08:02 Dose: 200 mg Levetiracetam (Levetiracetam 500 Mg Tablet) 750 mg PO BID [facility] Last Admin: 10/22/23 17:56 Dose: 750 mg Levothyroxine Sodium (Levothyroxine 50 Mcg Tablet) 50 mcg PO QAM JOJO Last Admin: 10/23/23 05:10 Dose: 50 mcg Magnesium Lactate (Magnesium Lactate 84 Mg Tablet) 84 mg PO DAILY [facility] Last Admin: 10/22/23 08:04 Dose: 84 mg Naloxone HCl (Naloxone 0.4 Mg/Ml Sdv) 0.1 mg IVP Q2M PRN PRN Reason: OPIATERV Last Admin: 10/20/23 19:05 Dose: 0.1 mg Nicotine (Nicotine 21 Mg Patch) 1 patch TRANSDERMA DAILY [facility] Last Admin: 10/22/23 09:17 Dose: 1 patch Nifedipine (Nifedipine Er (24 Hr) 30 Mg Tablet) 30 mg PO DAILY [facility] Last Admin: 10/22/23 08:04 Dose: 30 mg Ondansetron HCl (Ondansetron 2 Mg/Ml Sdv 2 Ml) 4 mg IVP Q8H PRN PRN Reason: vomiting, or N/V if npo Oxycodone HCl (Oxycodone Ir 30 Mg Tablet) 30 mg PO Q4H PRN PRN Reason: SEVERE PAIN Last Admin: 10/23/23 15:45 Dose: 30 mg Pantoprazole Sodium (Pantoprazole 40 Mg Sdv) 40 mg IVP Q24H [facility] Last Admin: 10/22/23 20:47 Dose: 40 mg Rifaximin (Rifaximin 200 Mg Tablet) 600 mg PO BID [facility] Last Admin: 10/22/23 17:56 Dose: 600 mg Spironolactone (Spironolactone 25 Mg Tablet) 25 mg PO BID [facility] Last Admin: 10/22/23 17:56 Dose: 25 mg Zinc Gluconate (Zinc Gluconate 50 Mg Tablet) 50 mg PO DAILY [facility] Last Admin: 10/22/23 08:02 Dose: 50 mg Discontinued Medications Benzocaine (Cetylpyridinium Lozenge) 1 each MUCOUS MEM ONCE PRN PRN Reason: SORE THROAT Fentanyl (Fentanyl 50 Mcg/Ml Inj 2ml) 50 mcg IVP ONCE PRN PRN Reason: Preop or postop pain Haloperidol Lactate (Haloperidol Inj 5 Mg/Ml Inj 1 Ml) 5 mg IVP ONCE ONE Stop: 10/20/23 12:50 Last Admin: 10/20/23 13:29 Dose: 5 mg Hydromorphone HCl (Hydromorphone 1 Mg/Ml Inj 1 Ml) 0.5 mg IVP ONCE PRN PRN Reason: PAIN Lactated Ringer's (Lactated Ringers) 1,000 mls @ 999 mls/hr IV .Q1H1M ONE Stop: 10/20/23 12:54 Last Infusion: 10/20/23 20:00 Dose: Infused Piperacillin Sod/Tazobactam (Sod 3.375 gm/ Sodium Chloride) 50 mls @ 100 mls/hr IV ONCE ONE Stop: 10/20/23 19:14 Last Infusion: 10/20/23 21:24 Dose: Infused Piperacillin Sod/Tazobactam (Sod 3.375 gm/ Sodium Chloride) 50 mls @ 12.5 mls/hr IV Q8H JOJO Last Infusion: 10/23/23 07:04 Dose: Infused Vancomycin/PEG/NADA/Lysine/Water (Vancocin) 2,000 mg in 400 mls @ 200 mls/hr IV ONCE ONE Stop: 10/20/23 21:29 Last Admin: 10/20/23 21:21 Dose: Not Given Vancomycin/PEG/NADA/Lysine/Water (Vancocin) 1,500 mg in 300 mls @ 200 mls/hr IV Q12H JOJO Last Admin: 10/22/23 07:24 Dose: Not Given Vancomycin/PEG/NADA/Lysine/Water (Vancocin) 2,000 mg in 400 mls @ 200 mls/hr IV ONCE ONE Stop: 10/20/23 23:59 Last Infusion: 10/21/23 00:13 Dose: Infused Vancomycin/PEG/NADA/Lysine/Water (Vancocin) 1,500 mg in 300 mls @ 200 mls/hr IV Q12H JO[facility] Last Admin: 10/22/23 14:52 Dose: Not Given Vancomycin/PEG/NADA/Lysine/Water (Vancocin) 1,500 mg in 300 mls @ 200 mls/hr IV Q8H JOJO Last Admin: 10/23/23 09:34 Dose: Not Given Ampicillin Sodium 2,000 mg/ (Sodium Chloride) 50 mls @ 100 mls/hr IV Q4H [facility]; Protocol Last Admin: 10/23/23 11:27 Dose: Not Given Sodium Chloride (Sodium Chloride 0.9%) 1,000 mls @ 30 mls/hr IV .Q24H JOJO Stop: 10/24/23 07:59 Last Infusion: 10/23/23 09:22 Dose: Infused Ketamine HCl (Ketamine 100 Mg/Ml Inj 5 Ml) Confirm Administered Dose 500 mg .ROUTE .STK-MED ONE Stop: 10/23/23 07:42 Ketorolac Tromethamine (Ketorolac 30 Mg/Ml Inj) 15 mg IVP ONCE ONE Stop: 10/20/23 20:12 Last Admin: 10/20/23 21:21 Dose: Not Given Midazolam HCl (Midazolam 1 Mg/Ml Inj 2 Ml) Confirm Administered Dose 2 mg .ROUTE .STK-MED ONE Stop: 10/23/23 07:41 Morphine Sulfate (Morphine Er (12 Hr) 15 Mg Tablet) 15 mg PO BID [facility] Last Admin: 10/22/23 07:25 Dose: Not Given Naloxone HCl (Naloxone 0.4 Mg/Ml Sdv) 0.4 mg IVP ONCE ONE Stop: 10/20/23 19:10 Last Admin: 10/20/23 19:13 Dose: 0.4 mg Nicotine (Nicotine 21 Mg Patch) 1 patch TRANSDERMA ONCE ONE Stop: 10/23/23 12:15 Last Admin: 10/23/23 12:27 Dose: 1 patch Non-Formulary Medication (Tenofovir Disoproxil Fumarate) 300 mg PO DAILY [facility] Last Admin: 10/23/23 11:28 Dose: Not Given Ondansetron HCl (Ondansetron 2 Mg/Ml Sdv 2 Ml) 4 mg IVP ONCE PRN PRN Reason: NAUSEA AND VOMITING Ondansetron HCl (Ondansetron 2 Mg/Ml Sdv 2 Ml) 4 mg IVP Q15M PRN PRN Reason: Nausea/Vomiting PACU PHASE II Oxycodone HCl (Oxycodone 5 Mg Ir Tab/Cap) 10 mg PO Q4H PRN PRN Reason: SEVERE PAIN Last Admin: 10/22/23 06:48 Dose: 10 mg Oxycodone HCl (Oxycodone Ir 30 Mg Tablet) 30 mg PO Q6H PRN PRN Reason: Pain Oxycodone HCl (Oxycodone Ir 30 Mg Tablet) 15 mg PO Q6H PRN PRN Reason: Pain Oxycodone HCl (Oxycodone Ir 30 Mg Tablet) 15 mg PO Q4H PRN PRN Reason: Pain Last Admin: 10/22/23 11:21 Dose: 15 mg Potassium Chloride (Potassium Chloride Er 20 Meq Tablet) 40 meq PO ONCE ONE Stop: 10/21/23 09:22 Last Admin: 10/21/23 09:59 Dose: 40 meq Propofol (Propofol 10 Mg/Ml Sdv 20 Ml) Confirm Administered Dose 200 mg .ROUTE .STK-MED ONE Stop: 10/23/23 07:42 Allergies codeine Allergy (Unknown, Verified 09/23/23 14:44) Unknown aspirin Allergy (Verified 09/23/23 14:44) ALGY-Hives diphenhydramine [From Benadryl] Allergy (Verified 09/23/23 14:44) ADR-Muscle Pain Sulfa (Sulfonamide Antibiotics) Allergy (Verified 09/23/23 14:44) ALGY-Swell Lip/Tongue/Throat Home Medications insulin glargine 100 unit/mL subcutaneous solution (Lantus U-100 Insulin) See Rx Instructions .Route .COMPLEX 11/23/22 [History Confirmed 10/20/23] scopolamine base 1 mg over 3 days transdermal patch 1 patch topical Q3D 04/27/23 [History Confirmed 10/20/23] tenofovir disoproxil fumarate 300 mg tablet 300 mg PO DAILY 04/27/23 [History Confirmed 10/20/23] zinc sulfate 50 mg zinc (220 mg) capsule 50 mg PO DAILY 08/15/23 [History Confirmed 10/22/23] gabapentin 300 mg capsule 300 mg PO BEDTIME 30 days #30 caps 08/19/23 [Rx Confirmed 10/20/23] lactulose 10 gram/15 mL oral solution 90 ml PO TID 30 days #8,100 mL 08/19/23 [Rx Confirmed 10/20/23] lamotrigine 200 mg tablet 200 mg PO DAILY 30 days #30 tabs 08/19/23 [Rx Confirmed 10/20/23] levetiracetam 750 mg tablet 750 mg PO BID 30 days #60 tabs 08/19/23 [Rx Confirmed 10/20/23] levothyroxine 50 mcg tablet 50 mcg PO QAM 30 days #30 tabs 08/19/23 [Rx Confirmed 10/20/23] punxub-[id number]-osdcanx 3,000-9,500-15,000 unit capsule, delayed rel (Creon) 1 cap PO TID 30 days #30 caps 08/19/23 [Rx Confirmed 10/20/23] nifedipine 30 mg tablet,extended release 24 hr 30 mg PO DAILY 30 days #30 tabs 08/19/23 [Rx Confirmed 10/20/23] oxycodone 30 mg tablet 30 mg PO Q4H PRN Pain 2 days #12 tabs 08/19/23 [Rx Confirmed 10/20/23] pantoprazole 40 mg tablet,delayed release 40 mg PO BID #60 tabs 08/19/23 [Rx Confirmed 10/20/23] potassium chloride 20 mEq tablet,extended release 20 meq PO DAILY 15 days #15 tabs 08/19/23 [Rx Confirmed 10/20/23] spironolactone 25 mg tablet 25 mg PO BID 30 days #30 tabs 08/19/23 [Rx Confirmed 10/20/23] sumatriptan succinate 50 mg tablet See Rx Instructions .Route .COMPLEX 10 days #10 tabs 08/19/23 [Rx Confirmed 10/20/23] tizanidine 4 mg tablet 4 mg PO Q6H PRN Spasms 10 days #30 tabs 08/19/23 [Rx Confirmed 10/20/23] umeclidinium 62.5 mcg-vilanterol 25 mcg/actuation powdr for inhalation (Anoro Ellipta) 1 inh inhalation DAILY 30 days #30 ea 08/19/23 [Rx Confirmed 10/20/23] albuterol sulfate 90 mcg/actuation aerosol inhaler (Ventolin HFA) 2 puff inhalation Q6H PRN Shortness Of Breath 10/19/23 [History Confirmed 10/20/23] amitriptyline 75 mg tablet 75 mg PO BEDTIME 10/19/23 [History Confirmed 10/20/23] doxepin 10 mg capsule 10 mg PO BEDTIME 10/19/23 [History Confirmed 10/20/23] furosemide 20 mg tablet (Lasix) 20 mg PO DAILY PRN edema #14 tabs 10/19/23 [Rx Confirmed 10/22/23] furosemide 40 mg tablet See Rx Instructions .Route .COMPLEX 10/19/23 [History Confirmed 10/20/23] levalbuterol tartrate 45 mcg/actuation aerosol inhaler (Xopenex HFA) 2 inh inhalation Q6H PRN Shortness Of Breath 10/19/23 [History Confirmed 10/22/23] morphine 30 mg tablet,extended release 30 mg PO Q12H 10/19/23 [History Confirmed 10/20/23] rimegepant 75 mg disintegrating tablet (Nurtec ODT) 75 mg PO DAILY PRN Migraine Headache 10/19/23 [History Confirmed 10/20/23] Discharge Plan Discharge Patient Disposition: Home Condition: Stable Prescriptions: No Action zinc sulfate 50 mg zinc (220 mg) capsule 50 mg PO DAILY amitriptyline 75 mg tablet 75 mg PO BEDTIME furosemide 40 mg tablet See Rx Instructions .ROUTE .COMPLEX Rx Instructions: TAKE 2 TABLETS BY MOUTH EVERY MORNING AND ONE EVERY DAY AFTER LUNCH doxepin 10 mg capsule 10 mg PO BEDTIME morphine 30 mg tablet extended release 30 mg PO Q12H albuterol sulfate [Ventolin HFA] 90 mcg/actuation HFA aerosol inhaler 2 puff INHALATION Q6H PRN (Reason: Shortness Of Breath) Nurtec ODT 75 mg tablet,disintegrating 75 mg PO DAILY PRN (Reason: Migraine Headache) levalbuterol tartrate [Xopenex HFA] 45 mcg/actuation HFA aerosol inhaler 2 inh inhalation Q6H PRN (Reason: Shortness Of Breath) insulin glargine [Lantus U-100 Insulin] 100 unit/mL solution See Rx Instructions .ROUTE .COMPLEX Hold Instructions: Resume on 08/26/23. hold till PCP follow up Rx Instructions: INJECT 10 UNITS IN THE MORNING AND 40 UNITS IN THE EVENING. scopolamine base 1 mg over 3 days patch 3 day 1 patch topical Q3D tenofovir disoproxil fumarate 300 mg tablet 300 mg PO DAILY nifedipine 30 mg tablet extended release 24hr 30 mg PO DAILY 30 Days Qty: 30 0RF lamotrigine 200 mg tablet 200 mg PO DAILY 30 Days Qty: 30 0RF tizanidine 4 mg tablet 4 mg PO Q6H PRN (Reason: Spasms) 10 Days Qty: 30 0RF sumatriptan succinate 50 mg tablet See Rx Instructions .ROUTE .COMPLEX 10 Days Qty: 10 0RF Rx Instructions: MAY REPEAT IN TWO HOURS, MAX OF 200MG IN 24 HOURS spironolactone 25 mg tablet 25 mg PO BID 30 Days Qty: 30 0RF levothyroxine 50 mcg tablet 50 mcg PO QAM 30 Days Qty: 30 2RF pantoprazole 40 mg tablet,delayed release (DR/EC) 40 mg PO BID Qty: 60 0RF gabapentin 300 mg capsule 300 mg PO BEDTIME 30 Days Qty: 30 0RF levetiracetam 750 mg tablet 750 mg PO BID 30 Days Qty: 60 0RF oxycodone 30 mg tablet 30 mg PO Q4H PRN (Reason: Pain) 2 Days Qty: 12 0RF lactulose 10 gram/15 mL solution 90 ml PO TID 30 Days Qty: 8100 0RF Creon 3,000-9,500- 15,000 unit capsule,delayed release(DR/EC) 1 cap PO TID 30 Days Qty: 30 0RF Anoro Ellipta 62.5-25 mcg/actuation blister with device 1 inh INHALATION DAILY 30 Days Qty: 30 0RF potassium chloride 20 mEq tablet extended release 20 meq PO DAILY 15 Days Qty: 15 0RF furosemide [Lasix] 20 mg tablet 20 mg PO DAILY PRN (Reason: edema) Qty: 14 0RF Referrals: Francisco Mckinley DO [Primary Care Provider] - Patient Instructions: Post Anesthesia Instructions - Basic, Opioid Safety Transfer Attestations Time Spent in Transfer Care: greater than 30 min Quality Metrics Clinical Quality Measures [ No reported AMI, CVA or VTE this stay] Coding Level of Care Code Acute Code for g Fwd Diagnoses Bacteremia due to Enterococcus R78.81; B95.2
--- NOTE | 2023-10-23 16:17 | PC.NURSE ---
Report called to SUJIT Miner at [place] at 1600. [phone]. Pt to go to room 7232 bed 1. EMS expected to arrive here within the next 30mins to transport pt.
[2023-10-23] MEDS: levETIRAcetam 500 mg Tablet 750 MG PO (17:01)
[2023-10-23] MEDS: rifaximin 200 mg Tablet 600 MG PO (17:01)
[2023-10-23] MEDS: spironolactone 25 mg Tablet PO (17:01)
[2023-10-24 19:45] LABS: Hep B Surface AG Confirmation REACTIVE; Hep B Surface AG Yes Test Yes; Hepatitis B Surface AG REACTIVE (NON-REACTIVE)
[2023-10-25 09:09] LABS: Amphetamine negative; Barbiturates negative; Benzodiazepines negative; Cocaine Metabolites negative; Marijuana(Tetrahydrocannabino) negative; Opiates negative; PCP (Phencyclidine) negative
[2023-10-29 07:54] LABS: Amphetamine negative; Barbiturates negative; Benzodiazepines negative; Cocaine Metabolites negative; Marijuana(Tetrahydrocannabino) negative; Opiates negative; PCP (Phencyclidine) negative
== END 2023-10-23 17:29 | disposition home or self-care (01) | DRG 289 ==
LOC: ER 16:30 → MEDSURG 16:45
PROVIDERS: Internal Medicine; Admitting Provider Family Medicine; Emergency Provider Emergency Medicine; PCP Family Medicine; Visit Provider Family Medicine
PROC: B24BYZZ Ultrasonography of Heart with Aorta using Other Contrast (ICD-10-PCS; CPT 93312; principal; 2023-10-23 14:50)
DX: I33.9 Acute and subacute endocarditis, unspecified (principal); B18.1 Chronic viral hepatitis B without delta-agent; K76.6 Portal hypertension; Z59.02 Unsheltered homelessness; B95.2 Enterococcus as the cause of diseases classified elsewhere; B96.89 Other specified bacterial agents as the cause of diseases classified elsewhere; K74.60 Unspecified cirrhosis of liver; E03.9 Hypothyroidism, unspecified; E11.9 Type 2 diabetes mellitus without complications; J44.9 Chronic obstructive pulmonary disease, unspecified; G40.909 Epilepsy, unspecified, not intractable, without status epilepticus; F17.210 Nicotine dependence, cigarettes, uncomplicated; F17.290 Nicotine dependence, other tobacco product, uncomplicated; I49.5 Sick sinus syndrome; K21.9 Gastro-esophageal reflux disease without esophagitis; I34.0 Nonrheumatic mitral (valve) insufficiency; Z79.4 Long term (current) use of insulin; Z86.711 Personal history of pulmonary embolism; Z90.49 Acquired absence of other specified parts of digestive tract; Z87.11 Personal history of peptic ulcer disease; Z95.0 Presence of cardiac pacemaker
CPT/HCPCS: 36415; 36416; 36600; 76705; 80051; 80053; 80061; 80074; 80202; 80306; 80307; 81003; 81015; 81025; 82140; 82330; 82805; 82962; 82977; 83036; 83605; 83615; 83690; 83735; 84100; 84145; 84443; 85025; 85610; 85651; 86140; 87040; 87077; 87150; 87186; 87205; 87340; 87341; 87522; 87806; 93306; 93312; 93320; 93325; 94664; 96361; 96372; 96374; 99285; J0290; J1630; J1650; J1815; J2250; J2310; J2470; J2543; J2704; J3370; J3372; J3490; J7030; J7120

== ENCOUNTER → 2023-12-20 13:18 | Outpatient (BNVA) | payer MEDICAID, SELFPAY | PROVIDERS: PCP Family Medicine; Visit Provider Internal Medicine | DX: I49.5 Sick sinus syndrome (principal); Z95.0 Presence of cardiac pacemaker | CPT/HCPCS: 99214 ==

== ENCOUNTER 2024-01-15 13:12 | Emergency (ER) | payer MEDICAID, SELFPAY ==
[2024-01-15 13:15] VITALS: BP 171/130; PULSE 123; RESP 20; TEMP 36.7; O2SAT 96
[2024-01-15 14:40] LABS: Alanine Aminotransferase 21 U/L (0-33); Albumin Level 4.1 g/dL (3.5-5.2); Alkaline Phosphatase 123 U/L (35-105); Aspartate Amino Transferase 37 U/L (0-32); Blood Urea Nitrogen 23 mg/dL (6-20); Calcium 9.1 mg/dL (8.5-10.5); Carbon Dioxide 21 mmol/L (22-29); Chloride 97 mmol/L (98-107); Creatinine Clr Calc Pharmacy 162.4314; Globulin 4.3 g/dL (1.3-4.6); Glomerular Filtration Rate 106.3 mL/min (90-130); Glucose 116 mg/dL (65-115); Lipase 17 U/L (13-60); Osmolality Calculated 281 mOsm/kg (285-295); Sodium 133 mmol/L (136-145); Total Bilirubin 1.6 mg/dL (0.15-1.2); Total Protein 8.4 g/dL (6.6-8.7)
[2024-01-15 14:47] LABS: Anion Gap 18.7 (5-19); Potassium 3.7 mmol/L (3.5-5.1)
[2024-01-15 14:59] LABS: Basophils # 0.1 10^3/uL (0.0-0.1); Basophils % 0.6 %; Eosinophils # 0.1 10^3/uL (0.0-0.8); Eosinophils % 0.8 %; Lymphocytes # 2.6 10^3/uL (0.8-4.8); Lymphocytes % 25.7 %; Mean Corpuscular HGB Conc 33.6 g/dL (30-55); Mean Corpuscular Volume 86.4 fl (85-98); Mean Platelet Volume 10.9 fL (7.4-10.4); Monocytes # 1.2 10^3/uL (0.2-0.9); Monocytes % 11.6 %; Neutrophils # 6.07 10^3/uL (1.8-7.7); Neutrophils % 60.8 %; Nucleated Red Blood Cells % 0 %; Platelet Count 243 10^3/cmm (157-399); Red Blood Count 5.44 10^6/uL (3.85-5.65); White Blood Count 9.99 10^3/uL (3.29-11.43)
[2024-01-15 15:42] LABS: Ammonia 85 umol/L (11-51)
--- NOTE | 2024-01-15 18:42 | ED_ITS ---
HPI - Abdominal Pain 2 General: Chief Complaint: Abdominal Pain Stated Complaint: genal pain, no meds Time Seen by Provider: 01/15/24 18:01 Source: patient Mode of arrival: ambulatory Limitations: no limitations History of Present Illness: Patient is a 48-year-old female presenting to the emergency department complaining of acute on chronic diffuse abdominal pain. She states she takes oxycodone every day but ran out a while ago and her primary care will not refill it. She states she spent the night in retirement because her ammonia levels were high and she had no idea what happened last night. States that she has end- stage liver disease and has been told she has liver cancer. She states that she walked from the police [place] here barefooted, is complaining of diffuse abdominal pain at this time with nausea. She is worried about her ammonia levels, does not demonstrate any neurological deficits or asterixis. No vomiting, diarrhea, urinary symptoms, or other symptoms at this time. MD elicited complaint: abdominal pain Onset (ago): day(s) Pain Consistency: constant Location: Diffuse Severity: moderate Radiation: none Migration to: no migration Exacerbating factors: nothing Relieving factors: nothing Associated Symptoms: Reports nausea; Denies bloating, change in stool character, chills, constipation, diarrhea, dysuria, fever(s), hematochezia and vomiting Related Data Home Medications Medication Instructions Recorded Confirmed insulin glargine 100 unit/mL See Rx Instructions .Route .COMPLEX 11/23/22 12/20/23 subcutaneous solution (Lantus U-100 Insulin) scopolamine base 1 mg over 3 days 1 patch topical Q3D 04/27/23 12/20/23 transdermal patch tenofovir disoproxil fumarate 300 300 mg PO DAILY 04/27/23 10/20/23 mg tablet zinc sulfate 50 mg zinc (220 mg) 50 mg PO DAILY 08/15/23 12/20/23 capsule albuterol sulfate 90 mcg/actuation 2 puff inhalation Q6H PRN 10/19/23 12/20/23 aerosol inhaler (Ventolin HFA) Shortness Of Breath amitriptyline 75 mg tablet 75 mg PO BEDTIME 10/19/23 12/20/23 doxepin 10 mg capsule 10 mg PO BEDTIME 10/19/23 12/20/23 furosemide 40 mg tablet See Rx Instructions .Route .COMPLEX 10/19/23 12/20/23 levalbuterol tartrate 45 2 inh inhalation Q6H PRN Shortness 10/19/23 12/20/23 mcg/actuation aerosol inhaler Of Breath (Xopenex HFA) rimegepant 75 mg disintegrating 75 mg PO DAILY PRN Migraine 10/19/23 12/20/23 tablet (Nurtec ODT) Headache hydromorphone 2 mg tablet 2 mg PO Q4H PRN 12/20/23 12/20/23 (Dilaudid) Previous Rx's Medication Instructions Recorded gabapentin 300 mg capsule 300 mg PO BEDTIME 30 days #30 caps 08/19/23 lactulose 10 gram/15 mL oral 90 ml PO TID 30 days #8,100 mL 08/19/23 solution lamotrigine 200 mg tablet 200 mg PO DAILY 30 days #30 tabs 08/19/23 levetiracetam 750 mg tablet 750 mg PO BID 30 days #60 tabs 08/19/23 levothyroxine 50 mcg tablet 50 mcg PO QAM 30 days #30 tabs 08/19/23 otxyoz-nbgoutok-pebpcjo 1 cap PO TID 30 days #30 caps 08/19/23 3,000-9,500-15,000 unit capsule, delayed rel (Creon) nifedipine 30 mg tablet,extended 30 mg PO DAILY 30 days #30 tabs 08/19/23 release 24 hr oxycodone 30 mg tablet 30 mg PO Q4H PRN Pain 2 days #12 08/19/23 tabs pantoprazole 40 mg tablet,delayed 40 mg PO BID #60 tabs 08/19/23 release potassium chloride 20 mEq 20 meq PO DAILY 15 days #15 tabs 08/19/23 tablet,extended release spironolactone 25 mg tablet 25 mg PO BID 30 days #30 tabs 08/19/23 sumatriptan succinate 50 mg tablet See Rx Instructions .Route 08/19/23 .COMPLEX 10 days #10 tabs tizanidine 4 mg tablet 4 mg PO Q6H PRN Spasms 10 days #30 08/19/23 tabs umeclidinium 62.5 mcg-vilanterol 1 inh inhalation DAILY 30 days #30 08/19/23 25 mcg/actuation powdr for ea inhalation (Anoro Ellipta) furosemide 20 mg tablet (Lasix) 20 mg PO DAILY PRN edema #14 tabs 10/19/23 Allergies Allergy/AdvReac Type Severity Reaction Status Date / Time codeine Allergy Unknown Unknown Verified 12/20/23 13:50 aspirin Allergy ALGY-Hives Verified 12/20/23 13:50 diphenhydramine Allergy ADR-Muscle Verified 12/20/23 13:50 [From Benadryl] Pain Sulfa (Sulfonamide Allergy ALGY-Swell Verified 12/20/23 13:50 Antibiotics) Lip/Tongue/Throat Review of Systems 2 General: Reports: 10 or more systems reviewed and unremarkable except in HPI and below Const: Denies: fever(s), chills, change in appetite, change in weight or diaphoresis ENMT: Denies: throat pain or hoarseness Card: Denies: chest pain, palpitations or lightheadedness Resp: Denies: dyspnea, productive cough or wheezing GI: Reports: abdominal pain and nausea; Denies: vomiting, diarrhea, constipation, bloating, change in stool character or hematochezia : Denies: flank pain, difficulty voiding, dysuria, urinary frequency or urinary urgency Musc: Denies: neck pain or back pain Skin/Breast: Denies: rash or new lesions Neuro: Denies: headache(s) or dizziness PFSH ED 2 PFSH: Medical History Hypokalemia [employer] (current) use of opiate analgesic Pain management contract signed Metabolic encephalopathy SSS (sick sinus syndrome) Presence of permanent cardiac pacemaker Seizure disorder Tobacco dependency Hypothyroidism Accidental fentanyl overdose Overdose Cardiac arrest COPD (chronic obstructive pulmonary disease) Chronically on 3 L of oxygen Smoker Thrombocytopenia Bilateral pulmonary embolism Hepatitis B Pulmonary embolism Nicotine dependence, cigarettes, with unspecified nicotine-induced disorders Chronic hepatitis B Chronic abdominal pain Chronic hip pain Leg cramps Stomach cancer Pelvic inflammatory disease Diabetes mellitus Hypertension Encephalopathy Cirrhosis Gastroesophageal reflux GI bleeding Surgical History H/O right hemicolectomy History of right hemicolectomy H/O tubal ligation History of laparotomy History of hysterectomy Family History Mother Diabetes Father CAD (coronary artery disease) Other Cancer Social History Smoking and tobacco/nicotine status: current every day tobacco/nicotine user (vaping) Quit status (tobacco/nicotine): has quit using Year quit tobacco: 2020 Former quit date comment: 2ppd x 26 year Hx Alcohol intake: never Substance/Drug Use: never Physical Exam 2 Const: COMMON NORMALS: no acute distress, patient oriented x3, no limitations, alert and well nourished GENERAL APPEARANCE: cooperative O RIENTATION/CONSCIOUSNESS: Yes awake OTHER: Disheveled appearing, anxious, no focal neurological deficits HENMT: COMMON NORMALS: normocephalic, atraumatic, hearing grossly normal bilaterally, external ears normal, Normal external nose present, Normal nasal mucous membranes and turbinates present and moist oral mucous membranes HEAD & SCALP: normocephalic and atraumatic NOSE: Normal external nose present and Normal nasal mucous membranes and turbinates present EXTERNAL EAR: Yes external ears normal Eye: COMMON NORMALS: Equal, round and reactive pupils present, EOMs intact bilaterally, conjunctivae normal and normal visual puckett by confrontation C ONJUNCTIVA: Yes conjunctivae normal PUPIL: Yes Equal, round and reactive pupils present Neck/C-Spine: COMMON NORMALS: full ROM, supple, no meningeal signs and no JVD Resp: COMMON NORMALS: normal respiratory effort, No retractions, No use of accessory muscles and clear to auscultation bilaterally AUSCULTATION: clear to auscultation bilaterally, no crackles, no rales, no rhonchi and no wheezes Cardio: COMMON NORMALS: no JVD, regular rate, regular rhythm, S1 normal heart sound present, S2 normal heart sound present, No gallops present (Cardio), No clicks present (Cardio), No murmurs present (Cardio), No rub (Cardio) and Peripheral pulses 2+ throughout RATE: regular rate RHYTHM: regular rhythm HEART SOUNDS: S1 normal heart sound present and S2 normal heart sound present PERIPHERAL PULSES: Peripheral pulses 2+ throughout GI: COMMON NORMALS: Normal to inspection, nondistended, normoactive bowel sounds present, Soft to palpation, No hepatosplenomegaly present and no masses INSPECTION: Yes normal to inspection, No striae, No caput medusae present and No Fluid wave present AUSCULTATION: Yes normoactive bowel sounds P ALPATION: Yes Soft to palpation, Yes Tenderness to palpation present (GI) (Endorsing diffuse tenderness to very light palpation), No Guarding due to palpation present (GI), No Rigid due to palpation and Yes No hepatosplenomegaly present PERCUSSION: no fluid wave RECTAL EXAM: deferred : COMMON NORMALS: Yes no CVA tenderness BLADDER/KIDNEY EXAM: Yes no CVA tenderness Back/Pelvis: COMMON NORMALS: no CVA tenderness Extremity: COMMON NORMALS: normal to inspection and full ROM Neuro: COMMON NORMALS: patient oriented x3, moves all extremities, no focal motor deficits and no sensory deficits noted SENSORIUM/ORIENTATION: Yes alert MENINGEAL SIGNS: Yes no meningeal signs Psych: COMMON NORMALS: mental status grossly normal, cooperative and speech normal SPEECH: Yes normal speech Skin: COMMON NORMALS: no rashes or lesions noted GENERAL SKIN EXAM: no rashes or lesions noted Course 2 Vital Signs: Vital signs: Vital Signs Temperature 98.0 F 01/15/24 13:15 Pulse Rate 99 01/15/24 19:54 Respiratory Rate 20 H 01/15/24 13:15 Blood Pressure 158/109 01/15/24 19:54 Pulse Oximetry 94 01/15/24 19:54 Oxygen Delivery Me thod Room Air 01/15/24 19:54 MDM - Abdominal Pain Medical Decision Making Patient well-known here to the emergency department presenting with diffuse abdominal pain. She spent the night in retirement for unknown reasons, walked from retirement here for evaluation. She does note she has been out of her narcotic pain medications, I do believe this is what she is requesting here. Stated that the pain she is having is chronic, nothing specifically worse. Lab work here today was all baseline when compared to prior, including a chronically elevated ammonia. She does have a history of end-stage liver cirrhosis. Patient given Haldol along with pain medications, will be discharged home with return cautions given. Discussed this patient with Dr. Jerez. Lab Data 01/15/24 14:12 01/15/24 14:12 Labs/Radiology: Laboratory Results WBC 9.99 10^3/uL (3.29-11.43) 01/15/24 14:12 RBC 5.44 10^6/uL (3.85-5.65) 01/15/24 14:12 Hgb 15.80 g/dL (11.27-16.99) 01/15/24 14:12 Hct 47.0 % (36-47) 01/15/24 14:12 MCV 86.4 fl (85-98) 01/15/24 14:12 MCH 29.0 pg (27-33) 01/15/24 14:12 MCHC 33.6 g/dL (30-55) 01/15/24 14:12 RDW 13.0 % (12.1-15.1) 01/15/24 14:12 Plt Count 243 10^3/cmm (157-399) 01/15/24 14:12 MPV 10.9 fL (7.4-10.4) H 01/15/24 14:12 Neut % (Auto) 60.8 % 01/15/24 14:12 Lymph % (Auto) 25.7 % 01/15/24 14:12 [place] % (Auto) 11.6 % 01/15/24 14:12 Eos % (Auto) 0.8 % 01/15/24 14:12 Baso % (Auto) 0.6 % 01/15/24 14:12 Neut # (Auto) 6.07 10^3/uL (1.8-7.7) 01/15/24 14:12 Lymph # (Auto) 2.6 10^3/uL (0.8-4.8) 01/15/24 14:12 [place] # (Auto) 1.2 10^3/uL (0.2-0.9) H 01/15/24 14:12 Eos # (Auto) 0.1 10^3/uL (0.0-0.8) 01/15/24 14:12 Baso # (Auto) 0.1 10^3/uL (0.0-0.1) 01/15/24 14:12 Nucleated RBC % (auto) 0 % 01/15/24 14:12 Nucleated RBCs # 0.0 /100WBC 01/15/24 14:12 Sodium 133 mmol/L (136-145) L 01/15/24 14:12 Potassium 3.7 mmol/L (3.5-5.1) 01/15/24 14:12 Chloride 97 mmol/L (98-107) L 01/15/24 14:12 Carbon Dioxide 21 mmol/L (22-29) L 01/15/24 14:12 Anion Gap 18.7 (5-19) 01/15/24 14:12 BUN 23 mg/dL (6-20) H 01/15/24 14:12 Creatinine 0.6 mg/dL (0.5-0.9) 01/15/24 14:12 GFR Calculation 106.3 mL/min (90-130) 01/15/24 14:12 Glucose 116 mg/dL (65-115) H 01/15/24 14:12 Calculated Osmolality 281 mOsm/kg (285-295) L 01/15/24 14:12 Calcium 9.1 mg/dL (8.5-10.5) 01/15/24 14:12 Total Bilirubin 1.6 mg/dL (0.15-1.2) H 01/15/24 14:12 AST 37 U/L (0-32) H 01/15/24 14:12 ALT 21 U/L (0-33) 01/15/24 14:12 Alkaline Phosphatase 123 U/L (35-105) H 01/15/24 14:12 Ammonia 85 umol/L (11-51) H 01/15/24 14:12 Total Protein 8.4 g/dL (6.6-8.7) 01/15/24 14:12 Albumin 4.1 g/dL (3.5-5.2) 01/15/24 14:12 Globulin 4.3 g/dL (1.3-4.6) 01/15/24 14:12 Lipase 17 U/L (13-60) 01/15/24 14:12 No radiology studies performed this visit Discharge Plan Discharge Patient Disposition: Home Clinical Impression: Chronic abdominal pain Condition: Stable Prescriptions: No Action hydromorphone [Dilaudid] 2 mg tablet 2 mg PO Q4H PRN zinc sulfate 50 mg zinc (220 mg) capsule 50 mg PO DAILY amitriptyline 75 mg tablet 75 mg PO BEDTIME furosemide 40 mg tablet See Rx Instructions .ROUTE .COMPLEX Rx Instructions: TAKE 2 TABLETS BY MOUTH EVERY MORNING AND ONE EVERY DAY AFTER LUNCH doxepin 10 mg capsule 10 mg PO BEDTIME albuterol sulfate [Ventolin HFA] 90 mcg/actuation HFA aerosol inhaler 2 puff INHALATION Q6H PRN (Reason: Shortness Of Breath) Nurtec ODT 75 mg tablet,disintegrating 75 mg PO DAILY PRN (Reason: Migraine Headache) levalbuterol tartrate [Xopenex HFA] 45 mcg/actuation HFA aerosol inhaler 2 inh inhalation Q6H PRN (Reason: Shortness Of Breath) insulin glargine [Lantus U-100 Insulin] 100 unit/mL solution See Rx Instructions .ROUTE .COMPLEX Hold Instructions: Resume on 08/26/23. hold till PCP follow up Rx Instructions: INJECT 10 UNITS IN THE MORNING AND 40 UNITS IN THE EVENING. scopolamine base 1 mg over 3 days patch 3 day 1 patch topical Q3D tenofovir disoproxil fumarate 300 mg tablet 300 mg PO DAILY nifedipine 30 mg tablet extended release 24hr 30 mg PO DAILY 30 Days Qty: 30 0RF lamotrigine 200 mg tablet 200 mg PO DAILY 30 Days Qty: 30 0RF tizanidine 4 mg tablet 4 mg PO Q6H PRN (Reason: Spasms) 10 Days Qty: 30 0RF sumatriptan succinate 50 mg tablet See Rx Instructions .ROUTE .COMPLEX 10 Days Qty: 10 0RF Rx Instructions: MAY REPEAT IN TWO HOURS, MAX OF 200MG IN 24 HOURS spironolactone 25 mg tablet 25 mg PO BID 30 Days Qty: 30 0RF levothyroxine 50 mcg tablet 50 mcg PO QAM 30 Days Qty: 30 2RF pantoprazole 40 mg tablet,delayed release (DR/EC) 40 mg PO BID Qty: 60 0RF gabapentin 300 mg capsule 300 mg PO BEDTIME 30 Days Qty: 30 0RF levetiracetam 750 mg tablet 750 mg PO BID 30 Days Qty: 60 0RF oxycodone 30 mg tablet 30 mg PO Q4H PRN (Reason: Pain) 2 Days Qty: 12 0RF lactulose 10 gram/15 mL solution 90 ml PO TID 30 Days Qty: 8100 0RF Creon 3,000-9,500- 15,000 unit capsule,delayed release(DR/EC) 1 cap PO TID 30 Days Qty: 30 0RF Anoro Ellipta 62.5-25 mcg/actuation blister with device 1 inh INHALATION DAILY 30 Days Qty: 30 0RF potassium chloride 20 mEq tablet extended release 20 meq PO DAILY 15 Days Qty: 15 0RF furosemide [Lasix] 20 mg tablet 20 mg PO DAILY PRN (Reason: edema) Qty: 14 0RF Discharge Orders: Discharge ED (Routine); Ordered 01/15/24 Ordered By: Meliton Encarnacion Referrals: Francisco Mckinley DO [Primary Care Provider] - Patient Instructions: Abdominal Pain (ED), Opioid Safety, Pain Management Activity Restrictions/Additional Instructions: Follow-up with primary care provider to discuss pain management. Continue taking home medications. Return with any new or worsening. Coding Level of Care Code ED Beam Warper for 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
[2024-01-15] MEDS: ondansetron 4 MG Tablet PO (19:24)
[2024-01-15] MEDS: HYDROcodone-acetaminophen 5-325 mg Tablet 1 TAB PO (19:24)
[2024-01-15 19:54] VITALS: BP 158/109; PULSE 99; O2SAT 94
[2024-01-15] MEDS: haloperidol 5 mg Tablet PO (20:00)
[2024-01-15 20:42] VITALS: BP 158/109; PULSE 99; O2SAT 94
== END 2024-01-15 20:44 | disposition home or self-care (01) ==
PROVIDERS: Emergency Medicine; Emergency Provider Physician Assistant; PCP Family Medicine
DX: R10.9 Unspecified abdominal pain (principal); Z79.4 Long term (current) use of insulin; F17.290 Nicotine dependence, other tobacco product, uncomplicated; E11.9 Type 2 diabetes mellitus without complications; I10 Essential (primary) hypertension; J44.9 Chronic obstructive pulmonary disease, unspecified; Z99.81 Dependence on supplemental oxygen
CPT/HCPCS: 80053; 82140; 83690; 85025; 99283; Q0162

== ENCOUNTER 2024-01-15 23:29 | Emergency (ER) | payer MEDICAID, SELFPAY ==
[2024-01-15 23:33] VITALS: BP 178/128; PULSE 101; RESP 18; TEMP 36.6; O2SAT 97
--- NOTE | 2024-01-16 01:33 | CTR_ITS ---
PROCEDURE INFORMATION: Exam: CT Abdomen And Pelvis Without Contrast Exam date and time: 01/16/2024 2:53 AM Age: 48 years old Clinical indication: Abdominal pain; Generalized; Prior surgery; Surgery date: 6+ months; Surgery type: Hemicolectomy, hysterectomy, laparotomy TECHNIQUE: Imaging protocol: Computed tomography of the abdomen and pelvis without contrast. Radiation optimization: All CT scans at this facility use at least one of these dose optimization techniques: automated exposure control; mA and/or kV adjustment per patient size (includes targeted exams where dose is matched to clinical indication); or iterative reconstruction. COMPARISON: CT abdomen pelvis w con* [id number] 10/19/2023 12:46 AM RADIATION DOSE METRICS: Total DLP (mGy-cm): 962.33 FINDINGS: Tubes, catheters and devices: Pacemaker leads in the right ventricle. Splenorenal shunt. Lungs: Right lower lobe calcified granuloma. Lingular linear atelectasis. Heart: Mitral valve calcifications. Liver: Hypodense lesion in hepatic segment 5/6 likely representing a simple cyst. Minimally nodular contour. Gallbladder and biliary ducts: Mild biliary sludge within the gallbladder. Chronic dilation of the CBD measuring 11 mm. No definite radiopaque obstructing stone or constricting soft tissue lesion. Pancreas: Unremarkable. Spleen: Mild splenomegaly. Adrenal glands: Unremarkable. Kidneys and ureters: Unremarkable. No hydronephrosis. Stomach and bowel: Postoperative changes of right hemicolectomy. No mechanical bowel obstruction. Appendix: No evidence of appendicitis. Intraperitoneal space: No free air or free fluid. Vasculature: Mild atherosclerotic changes of the aorta and its major branches. Lymph nodes: Unremarkable. Urinary bladder: Unremarkable. Reproductive: Hysterectomy. Bones/joints: Unremarkable. Soft tissues: Fat containing umbilical hernia. CT/CT abdomen pelvis con [id number] IMPRESSION: No acute abdominopelvic abnormality.
--- NOTE | 2024-01-16 02:48 | ED_ITS ---
HPI - Abdominal Pain General: Chief Complaint: Abdominal Pain Stated Complaint: ABD Pain Time Seen by Provider: 01/16/24 01:29 History of Present Illness: 48-year-old female with a history of cir rhosis who was seen in the emergency room earlier today who presents again with abdominal pain. She has chronic abdominal pain but she says this is different. She is coming she has some anterior abdominal pain. It is not diffuse at this time. She says that sharp. No new nausea or vomiting. Related Data Home Medications Medication Instructions Recorded Confirmed insulin glargine 100 unit/mL See Rx Instructions .Route .COMPLEX 11/23/22 12/20/23 subcutaneous solution (Lantus U-100 Insulin) scopolamine base 1 mg over 3 days 1 patch topical Q3D 04/27/23 12/20/23 transdermal patch tenofovir disoproxil fumarate 300 300 mg PO DAILY 04/27/23 10/20/23 mg tablet zinc sulfate 50 mg zinc (220 mg) 50 mg PO DAILY 08/15/23 12/20/23 capsule albuterol sulfate 90 mcg/actuation 2 puff inhalation Q6H PRN 10/19/23 12/20/23 aerosol inhaler (Ventolin HFA) Shortness Of Breath amitriptyline 75 mg tablet 75 mg PO BEDTIME 10/19/23 12/20/23 doxepin 10 mg capsule 10 mg PO BEDTIME 10/19/23 12/20/23 furosemide 40 mg tablet See Rx Instructions .Route .COMPLEX 10/19/23 12/20/23 levalbuterol tartrate 45 2 inh inhalation Q6H PRN Shortness 10/19/23 12/20/23 mcg/actuation aerosol inhaler Of Breath (Xopenex HFA) rimegepant 75 mg disintegrating 75 mg PO DAILY PRN Migraine 10/19/23 12/20/23 tablet (Nurtec ODT) Headache hydromorphone 2 mg tablet 2 mg PO Q4H PRN 12/20/23 12/20/23 (Dilaudid) Previous Rx's Medication Instructions Recorded gabapentin 300 mg capsule 300 mg PO BEDTIME 30 days #30 caps 08/19/23 lactulose 10 gram/15 mL oral 90 ml PO TID 30 days #8,100 mL 08/19/23 solution lamotrigine 200 mg tablet 200 mg PO DAILY 30 days #30 tabs 08/19/23 levetiracetam 750 mg tablet 750 mg PO BID 30 days #60 tabs 08/19/23 levothyroxine 50 mcg tablet 50 mcg PO QAM 30 days #30 tabs 08/19/23 bwbfml-wcmxxban-koxyxgi 1 cap PO TID 30 days #30 caps 08/19/23 3,000-9,500-15,000 unit capsule, delayed rel (Creon) nifedipine 30 mg tablet,extended 30 mg PO DAILY 30 days #30 tabs 08/19/23 release 24 hr oxycodone 30 mg tablet 30 mg PO Q4H PRN Pain 2 days #12 08/19/23 tabs pantoprazole 40 mg tablet,delayed 40 mg PO BID #60 tabs 08/19/23 release potassium chloride 20 mEq 20 meq PO DAILY 15 days #15 tabs 08/19/23 tablet,extended release spironolactone 25 mg tablet 25 mg PO BID 30 days #30 tabs 08/19/23 sumatriptan succinate 50 mg tablet See Rx Instructions .Route 08/19/23 .COMPLEX 10 days #10 tabs tizanidine 4 mg tablet 4 mg PO Q6H PRN Spasms 10 days #30 08/19/23 tabs umeclidinium 62.5 mcg-vilanterol 1 inh inhalation DAILY 30 days #30 08/19/23 25 mcg/actuation powdr for ea inhalation (Anoro Ellipta) furosemide 20 mg tablet (Lasix) 20 mg PO DAILY PRN edema #14 tabs 10/19/23 Allergies Allergy/AdvReac Type Severity Reaction Status Date / Time codeine Allergy Unknown Unknown Verified 01/15/24 23:37 aspirin Allergy ALGY-Hives Verified 01/15/24 23:37 diphenhydramine Allergy ADR-Muscle Verified 01/15/24 23:37 [From Benadryl] Pain Sulfa (Sulfonamide Allergy ALGY-Swell Verified 01/15/24 23:37 Antibiotics) Lip/Tongue/Throat Review of Systems Narrative: Constitutional symptoms: Negative except as documented in HPI. Skin symptoms: Negative except as documented in HPI. Eye symptoms: Negative except as documented in HPI. ENMT symptoms: Negative except as documented in HPI. Respiratory symptoms: Negative except as documented in HPI. Cardiovascular symptoms: Negative except as documented in HPI. Gastrointestinal symptoms: Negative except as documented in HPI. Genitourinary symptoms: Negative except as documented in HPI. Musculoskeletal symptoms: Negative except as documented in HPI. Neurologic symptoms: Negative except as documented in HPI. Psychiatric symptoms: Negative except as documented in HPI. Endocrine symptoms: Negative except as documented in HPI. 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 analgesic Pain management contract signed Metabolic encephalopathy SSS (sick sinus syndrome) Presence of permanent cardiac pacemaker Seizure disorder Tobacco dependency Hypothyroidism Accidental fentanyl overdose Overdose Cardiac arrest COPD (chronic obstructive pulmonary disease) Chronically on 3 L of oxygen Smoker Thrombocytopenia Bilateral pulmonary embolism Hepatitis B Pulmonary embolism Nicotine dependence, cigarettes, with unspecified nicotine-induced disorders Chronic hepatitis B Chronic abdominal pain Chronic hip pain Leg cramps Stomach cancer Pelvic inflammatory disease Diabetes mellitus Hypertension Encephalopathy Cirrhosis Gastroesophageal reflux GI bleeding Surgical History H/O right hemicolectomy History of right hemicolectomy H/O tubal ligation History of laparotomy History of hysterectomy Family History Mother Diabetes Father CAD (coronary artery disease) Other Cancer Social History Smoking and tobacco/nicotine status: current every day tobacco/nicotine user (vaping) Quit status (tobacco/nicotine): has quit using Year quit tobacco: 2020 Former quit date comment: 2ppd x 26 year Hx Alcohol intake: never Substance/Drug Use: never Physical Exam Narrative: EXAM NARRATIVE: General: Alert, no acute distress. Skin: Warm, dry. Head: Normocephalic, atraumatic. Neck: Supple, trachea midline. Eye: Extraocular movements are intact. Ears, nose, mouth and throat: mucosa moist. Cardiovascular: Regular, Normal peripheral perfusion. Respiratory: Lungs are clear to auscultation, respirations are non-labored, breath sounds are equal, Symmetrical chest wall expansion. Gastrointestinal: Soft, anterior abdominal pain, Non distended Musculoskeletal: Normal ROM, no deformity. Neurological: Alert and oriented, No focal neurological deficit observed. Psychiatric: Cooperative, appropriate mood & affect. Course Vital Signs: Vital signs: Vital Signs Temperature 97.9 F 01/15/24 23:33 Pulse Rate 101 H 01/15/24 23:33 Respiratory Rate 18 01/15/24 23:33 Blood Pressure 178/128 01/15/24 23:33 Pulse Oximetry 97 01/15/24 23:33 Oxygen Delivery Me thod Room Air 01/15/24 23:33 MDM - Abdominal Pain Medical Decision Making Lab work was done earlier today. Ammonia was below her usual at about 85. She does not have any signs of hepatic encephalopathy at this time. CT of the abdomen pelvis shows no acute abdominal pelvic abnormalities. This was reviewed and interpreted by myself the emergency room physician. I also reviewed the radiology report. Assessment and plan: Chronic abdominal pain - Discharged home - Discussed plan with patient. Answered any questions. - Evaluation and treatment of this problem were appropriate in the emergency setting. Lab Data Labs/Radiology: Radiology Impressions Abdomen/Pelvis CT 01/16/24 01:33 IMPRESSION: No acute abdominopelvic abnormality. All radiology interpretation(s) finalized by discharge Discharge Plan Discharge Patient Disposition: Home Clinical Impression: Chronic abdominal pain Condition: Stable Prescriptions: No Action hydromorphone [Dilaudid] 2 mg tablet 2 mg PO Q4H PRN zinc sulfate 50 mg zinc (220 mg) capsule 50 mg PO DAILY amitriptyline 75 mg tablet 75 mg PO BEDTIME furosemide 40 mg tablet See Rx Instructions .ROUTE .COMPLEX Rx Instructions: TAKE 2 TABLETS BY MOUTH EVERY MORNING AND ONE EVERY DAY AFTER LUNCH doxepin 10 mg capsule 10 mg PO BEDTIME albuterol sulfate [Ventolin HFA] 90 mcg/actuation HFA aerosol inhaler 2 puff INHALATION Q6H PRN (Reason: Shortness Of Breath) Nurtec ODT 75 mg tablet,disintegrating 75 mg PO DAILY PRN (Reason: Migraine Headache) levalbuterol tartrate [Xopenex HFA] 45 mcg/actuation HFA aerosol inhaler 2 inh inhalation Q6H PRN (Reason: Shortness Of Breath) insulin glargine [Lantus U-100 Insulin] 100 unit/mL solution See Rx Instructions .ROUTE .COMPLEX Hold Instructions: Resume on 08/26/23. hold till PCP follow up Rx Instructions: INJECT 10 UNITS IN THE MORNING AND 40 UNITS IN THE EVENING. scopolamine base 1 mg over 3 days patch 3 day 1 patch topical Q3D tenofovir disoproxil fumarate 300 mg tablet 300 mg PO DAILY nifedipine 30 mg tablet extended release 24hr 30 mg PO DAILY 30 Days Qty: 30 0RF lamotrigine 200 mg tablet 200 mg PO DAILY 30 Days Qty: 30 0RF tizanidine 4 mg tablet 4 mg PO Q6H PRN (Reason: Spasms) 10 Days Qty: 30 0RF sumatriptan succinate 50 mg tablet See Rx Instructions .ROUTE .COMPLEX 10 Days Qty: 10 0RF Rx Instructions: MAY REPEAT IN TWO HOURS, MAX OF 200MG IN 24 HOURS spironolactone 25 mg tablet 25 mg PO BID 30 Days Qty: 30 0RF levothyroxine 50 mcg tablet 50 mcg PO QAM 30 Days Qty: 30 2RF pantoprazole 40 mg tablet,delayed release (DR/EC) 40 mg PO BID Qty: 60 0RF gabapentin 300 mg capsule 300 mg PO BEDTIME 30 Days Qty: 30 0RF levetiracetam 750 mg tablet 750 mg PO BID 30 Days Qty: 60 0RF oxycodone 30 mg tablet 30 mg PO Q4H PRN (Reason: Pain) 2 Days Qty: 12 0RF lactulose 10 gram/15 mL solution 90 ml PO TID 30 Days Qty: 8100 0RF Creon 3,000-9,500- 15,000 unit capsule,delayed release(DR/EC) 1 cap PO TID 30 Days Qty: 30 0RF Anoro Ellipta 62.5-25 mcg/actuation blister with device 1 inh INHALATION DAILY 30 Days Qty: 30 0RF potassium chloride 20 mEq tablet extended release 20 meq PO DAILY 15 Days Qty: 15 0RF furosemide [Lasix] 20 mg tablet 20 mg PO DAILY PRN (Reason: edema) Qty: 14 0RF Discharge Orders: Discharge ED (Routine); Ordered 01/16/24 Ordered By: Dayna Burgos Referrals: Francisco Mckinley DO [Primary Care Provider] - Discharge Diet: Usual diet Discharge Activity: Increase activity as tolerated Patient Instructions: Abdominal Pain (ED), Opioid Safety, Pain Management Activity Restrictions/Additional Instructions: Thank you for choosing [facility] for your healthcare needs today. Please realize this is an emergency room and that we are providing you with a medical screening exam and this may not be complete and all inclusive of all the testing and or work up that you may need to determine your ailment or severity of your illness. You have been screened and evaluated and felt safe for discharge. Health conditions do change or evolve sometimes and as such it is important that you follow up with your Primary Doctor to be re checked, 3-5 days is a general good time frame for follow up. You are always welcome to return to the ED for re assessment if your symptoms are worsening or you have new concerns Coding Level of Care Code ED Bioinformatics Support Specialist for 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
[2024-01-16 04:26] VITALS: BP 168/86; PULSE 67; O2SAT 97
== END 2024-01-16 04:28 | disposition home or self-care (01) ==
PROVIDERS: Emergency Provider Emergency Medicine; PCP Family Medicine
DX: R10.9 Unspecified abdominal pain (principal); E11.9 Type 2 diabetes mellitus without complications; Z79.4 Long term (current) use of insulin; J44.9 Chronic obstructive pulmonary disease, unspecified; Z99.81 Dependence on supplemental oxygen; F17.290 Nicotine dependence, other tobacco product, uncomplicated
CPT/HCPCS: 74176; 99284

== ENCOUNTER 2024-01-17 10:49 | Emergency (ER) | payer MEDICAID, SELFPAY ==
[2024-01-17] VITALS (7 sets, daily range): BP systolic 127–153; BP diastolic 78–105; PULSE 99–118; RESP 16–20; TEMP 36.8; O2SAT 93–98; BMI 27.1
--- NOTE | 2024-01-17 11:51 | ED_ITS ---
HPI - Abdominal Pain 2 General: Chief Complaint: Abdominal Pain Stated Complaint: abd pain Time Seen by Provider: 01/17/24 11:41 History of Present Illness: Patient presents to the ER with complaints of right upper quadrant abdominal pain has been going on for 4 days. Patient's been seen in ER twice for the same issue. Patient is a lot of other complaints that does seem random and patient is asking for pain medicine. Patient said that anytime she eats or drinks anything it hits her stomach and then comes right back up and causes heartburn. Patient has multiple heartburn medicines at home. Related Data Home Medications Medication Instructions Recorded Confirmed insulin glargine 100 unit/mL See Rx Instructions .Route .COMPLEX 11/23/22 01/17/24 subcutaneous solution (Lantus U-100 Insulin) scopolamine base 1 mg over 3 days 1 patch topical Q3D 04/27/23 01/17/24 transdermal patch tenofovir disoproxil fumarate 300 300 mg PO DAILY 04/27/23 01/17/24 mg tablet zinc sulfate 50 mg zinc (220 mg) 50 mg PO DAILY 08/15/23 01/17/24 capsule albuterol sulfate 90 mcg/actuation 2 puff inhalation Q6H PRN 10/19/23 01/17/24 aerosol inhaler (Ventolin HFA) Shortness Of Breath amitriptyline 75 mg tablet 75 mg PO BEDTIME 10/19/23 01/17/24 doxepin 10 mg capsule 10 mg PO BEDTIME PRN Sleep 10/19/23 01/17/24 furosemide 40 mg tablet See Rx Instructions .Route .COMPLEX 10/19/23 01/17/24 levalbuterol tartrate 45 2 inh inhalation Q6H PRN Shortness 10/19/23 01/17/24 mcg/actuation aerosol inhaler Of Breath (Xopenex HFA) rimegepant 75 mg disintegrating 75 mg PO DAILY PRN Migraine 10/19/23 01/17/24 tablet (Nurtec ODT) Headache cholecalciferol (vitamin D3) 1,250 50,000 unit PO Q7D 01/17/24 01/17/24 mcg (50,000 unit) capsule gabapentin 300 mg capsule 600 mg PO BID 01/17/24 01/17/24 metoclopramide HCl 5 mg tablet 5 mg PO QID PRN nausea/emesis 01/17/24 01/17/24 rifaximin 550 mg tablet (Xifaxan) 550 mg PO BID 01/17/24 01/17/24 Previous Rx's Medication Instructions Recorded lactulose 10 gram/15 mL oral 90 ml PO TID 30 days #8,100 mL 08/19/23 solution levetiracetam 750 mg tablet 750 mg PO BID 30 days #60 tabs 08/19/23 levothyroxine 50 mcg tablet 50 mcg PO QAM 30 days #30 tabs 08/19/23 [id number] 1 cap PO TID 30 days #30 caps 08/19/23 3,000-9,500-15,000 unit capsule, delayed rel (Creon) nifedipine 30 mg tablet,extended 30 mg PO DAILY 30 days #30 tabs 08/19/23 release 24 hr oxycodone 30 mg tablet 30 mg PO Q4H PRN Pain 2 days #12 08/19/23 tabs pantoprazole 40 mg tablet,delayed 40 mg PO BID #60 tabs 08/19/23 release potassium chloride 20 mEq 20 meq PO DAILY 15 days #15 tabs 08/19/23 tablet,extended release spironolactone 25 mg tablet 25 mg PO BID 30 days #30 tabs 08/19/23 sumatriptan succinate 50 mg tablet See Rx Instructions .Route 08/19/23 .COMPLEX 10 days #10 tabs tizanidine 4 mg tablet 4 mg PO Q6H PRN Spasms 10 days #30 08/19/23 tabs umeclidinium 62.5 mcg-vilanterol 1 inh inhalation DAILY 30 days #30 08/19/23 25 mcg/actuation powdr for ea inhalation (Anoro Ellipta) ciprofloxacin HCl 500 mg tablet 500 mg PO BID #14 tabs 01/17/24 (Cipro) promethazine 25 mg tablet 25 mg PO TID PRN nausea and 01/17/24 vomiting #14 tabs Allergies Allergy/AdvReac Type Severity Reaction Status Date / Time codeine Allergy Unknown Unknown Verified 01/17/24 11:05 aspirin Allergy ALGY-Hives Verified 01/17/24 11:05 diphenhydramine Allergy ADR-Muscle Verified 01/17/24 11:05 [From Benadryl] Pain Sulfa (Sulfonamide Allergy ALGY-Swell Verified 01/17/24 11:05 Antibiotics) Lip/Tongue/Throat Review of Systems 2 General: Reports: 10 or more systems reviewed and unremarkable except in HPI and below PFSH ED 2 PFSH: Medical History Hypokalemia nursing home (current) use of opiate analgesic Pain management contract signed Metabolic encephalopathy SSS (sick sinus syndrome) Presence of permanent cardiac pacemaker Seizure disorder Tobacco dependency Hypothyroidism Accidental fentanyl overdose Overdose Cardiac arrest COPD (chronic obstructive pulmonary disease) Chronically on 3 L of oxygen Smoker Thrombocytopenia Bilateral pulmonary embolism Hepatitis B Pulmonary embolism Nicotine dependence, cigarettes, with unspecified nicotine-induced disorders Chronic hepatitis B Chronic abdominal pain Chronic hip pain Leg cramps Stomach cancer Pelvic inflammatory disease Diabetes mellitus Hypertension Encephalopathy Cirrhosis Gastroesophageal reflux GI bleeding Surgical History H/O right hemicolectomy History of right hemicolectomy H/O tubal ligation History of laparotomy History of hysterectomy Family History Mother Diabetes Father CAD (coronary artery disease) Other Cancer Social History Smoking and tobacco/nicotine status: current every day tobacco/nicotine user (vaping) Quit status (tobacco/nicotine): has quit using Year quit tobacco: 2020 Former quit date comment: 2ppd x 26 year Hx Alcohol intake: never Substance/Drug Use: never Physical Exam 2 Const: COMMON NORMALS: no acute distress, average body habitus, patient oriented x3, no limitations, healthy appearing, alert and well nourished HENMT: COMMON NORMALS: normocephalic, atraumatic, hearing grossly normal bilaterally, external ears normal, Normal external nose present and moist oral mucous membranes HEAD & SCALP: normocephalic and atraumatic NOSE: Normal external nose present EXTERNAL EAR: Yes external ears normal Neck/C-Spine: COMMON NORMALS: no JVD Chest: COMMONS NORMALS: normal inspection of the chest and normal palpation of entire chest wall Resp: COMMON NORMALS: normal respiratory effort, No retractions, No use of accessory muscles and clear to auscultation bilaterally AUSCULTATION: clear to auscultation bilaterally Cardio: COMMON NORMALS: no JVD, regular rate, regular rhythm, S1 normal heart sound present, S2 normal heart sound present, No gallops present (Cardio), No clicks present (Cardio), No murmurs present (Cardio) and No rub (Cardio) R ATE: regular rate RHYTHM: regular rhythm HEART SOUNDS: S1 normal heart sound present and S2 normal heart sound present GI: COMMON NORMALS: Normal to inspection, nondistended, normoactive bowel sounds present, Soft to palpation, non-tender, No hepatosplenomegaly present and no masses PALPATION: Yes Soft to palpation and Yes No hepatosplenomegaly present Neuro: COMMON NORMALS: patient oriented x3 SENSORIUM/ORIENTATION: Yes alert Course 2 Vital Signs: Vital signs: Vital Signs Temperature 98.2 F 01/17/24 10:57 Pulse Rate 113 H 01/17/24 15:43 Respiratory Rate 20 H 01/17/24 14:30 Blood Pressure 147/104 01/17/24 15:43 Pulse Oximetry 94 01/17/24 15:43 Oxygen Delivery Me thod Room Air 01/17/24 15:00 MDM - Abdominal Pain Medical Decision Making I reviewed the ER visit labs and imaging done on 02/16/2024, lab work was reevaluated and abdominal ultrasound was identified which showed sludge filled gallbladder otherwise no significant change. Lab work showed positive urinary tract infection, elevated bilirubin, decreased pneumonia, patient was given a shot of Toradol Phenergan and Cipro here patient will be discharged on Phenergan and Cipro. Patient to follow-up with her PCP for further evaluation and testing of her gallbladder. Lab Data 01/17/24 13:02 01/17/24 13:02 Labs/Radiology: Radiology Impressions Abdomen Ultrasound 01/17/24 14:08 IMPRESSION: 1. Hepatic cirrhosis identified. 2. No hepatic mass. 3. Hepatofugal flow is reidentified within the portal vein consistent with portal hypertension. 4. Sludge filled gallbladder. No stones identified. Laboratory Results WBC 15.23 10^3/uL (3.29-11.43) H 01/17/24 13:02 RBC 5.31 10^6/uL (3.85-5.65) 01/17/24 13:02 Hgb 15.70 g/dL (11.27-16.99) 01/17/24 13:02 Hct 47.4 % (36-47) H 01/17/24 13:02 MCV 89.3 fl (85-98) 01/17/24 13:02 MCH 29.6 pg (27-33) 01/17/24 13:02 MCHC 33.1 g/dL (30-55) 01/17/24 13:02 RDW 13.2 % (12.1-15.1) 01/17/24 13:02 Plt Count 156 10^3/cmm (157-399) L 01/17/24 13:02 MPV 11.6 fL (7.4-10.4) H 01/17/24 13:02 Neut % (Auto) 76.8 % 01/17/24 13:02 Lymph % (Auto) 10.6 % 01/17/24 13:02 [place] % (Auto) 10.7 % 01/17/24 13:02 Eos % (Auto) 0.8 % 01/17/24 13:02 Baso % (Auto) 0.6 % 01/17/24 13:02 Neut # (Auto) 11.71 10^3/uL (1.8-7.7) H 01/17/24 13:02 Lymph # (Auto) 1.6 10^3/uL (0.8-4.8) 01/17/24 13:02 [place] # (Auto) 1.6 10^3/uL (0.2-0.9) H 01/17/24 13:02 Eos # (Auto) 0.1 10^3/uL (0.0-0.8) 01/17/24 13:02 Baso # (Auto) 0.1 10^3/uL (0.0-0.1) 01/17/24 13:02 Nucleated RBC % (auto) 0 % 01/17/24 13:02 Nucleated RBCs # 0.0 /100WBC 01/17/24 13:02 Sodium 132 mmol/L (136-145) L 01/17/24 13:02 Potassium 3.7 mmol/L (3.5-5.1) 01/17/24 13:02 Chloride 98 mmol/L (98-107) 01/17/24 13:02 Carbon Dioxide 20 mmol/L (22-29) L 01/17/24 13:02 Anion Gap 17.7 (5-19) 01/17/24 13:02 BUN 17 mg/dL (6-20) 01/17/24 13:02 Creatinine 0.5 mg/dL (0.5-0.9) 01/17/24 13:02 GFR Calculation 131.1 mL/min (90-130) H 01/17/24 13:02 Glucose 101 mg/dL (65-115) 01/17/24 13:02 Calculated Osmolality 276 mOsm/kg (285-295) L 01/17/24 13:02 Calcium 8.6 mg/dL (8.5-10.5) 01/17/24 13:02 Magnesium 1.8 mg/dL (1.7-2.3) 01/17/24 13:02 Total Bilirubin 2.3 mg/dL (0.15-1.2) H 01/17/24 13:02 AST 41 U/L (0-32) H 01/17/24 13:02 ALT 20 U/L (0-33) 01/17/24 13:02 Alkaline Phosphatase 112 U/L (35-105) H 01/17/24 13:02 Ammonia 62 umol/L (11-51) H 01/17/24 13:02 Total Protein 8.1 g/dL (6.6-8.7) 01/17/24 13:02 Albumin 3.4 g/dL (3.5-5.2) L 01/17/24 13:02 Globulin 4.7 g/dL (1.3-4.6) H 01/17/24 13:02 Lipase 17 U/L (13-60) 01/17/24 13:02 Urine Color [place] (Yellow) A 01/17/24 13:15 Urine Appearance Cloudy (CLEAR) A 01/17/24 13:15 Urine pH 6.0 (5-7) 01/17/24 13:15 Ur Specific [place] 1.028 (1.005-1.030) 01/17/24 13:15 Urine Protein 1+ (Negative) A 01/17/24 13:15 Urine Glucose (UA) Negative (Normal) 01/17/24 13:15 Urine Ketones Trace (Negative) 01/17/24 13:15 Urine Blood Negative (Negative) 01/17/24 13:15 Urine Nitrate Positive (Negative) A 01/17/24 13:15 Urine Bilirubin 2+ (Negative) H 01/17/24 13:15 Urine Urobilinogen 4.0 mg/dL (Negative) H 01/17/24 13:15 Ur Leukocyte Esterase 1+ (Negative) A 01/17/24 13:15 Urine RBC 6-10 /hpf (0-2) 01/17/24 13:15 Urine WBC 11-20 /hpf (0-5) H 01/17/24 13:15 Ur Squamous Epith Cells 21-50 /hpf (0-5) 01/17/24 13:15 Amorphous Sediment Not Reportable 01/17/24 13:15 Urine Bacteria 4+ /hpf (NONE) H 01/17/24 13:15 Hyaline Casts 8.26 /lpf 01/17/24 13:15 Urine Opiates Screen Positive ng/mL (Negative) H 01/17/24 13:15 Ur Barbiturates Screen Negative ng/mL (Negative) 01/17/24 13:15 Ur Phencyclidine Scrn Negative ng/mL (Negative) 01/17/24 13:15 Ur Amphetamines Screen Negative ng/mL (Negative) 01/17/24 13:15 U Benzodiazepines Scrn Negative ng/mL (Negative) 01/17/24 13:15 Urine Cocaine Screen Negative ng/mL (Negative) 01/17/24 13:15 U Marijuana (THC) Screen Positive ng/mL (Negative) H 01/17/24 13:15 All radiology interpretation(s) finalized by discharge Discharge Plan Discharge Patient Disposition: Home Clinical Impression: Biliary colic, Acute lower urinary tract infection Condition: Stable Prescriptions: New promethazine 25 mg tablet 25 mg PO TID PRN (Reason: nausea and vomiting) Qty: 14 0RF ciprofloxacin HCl [Cipro] 500 mg tablet 500 mg PO BID Qty: 14 0RF No Action zinc sulfate 50 mg zinc (220 mg) capsule 50 mg PO DAILY amitriptyline 75 mg tablet 75 mg PO BEDTIME furosemide 40 mg tablet See Rx Instructions .ROUTE .COMPLEX Rx Instructions: TAKE 2 TABLETS BY MOUTH EVERY MORNING AND ONE EVERY DAY AFTER LUNCH doxepin 10 mg capsule 10 mg PO BEDTIME PRN (Reason: Sleep) albuterol sulfate [Ventolin HFA] 90 mcg/actuation HFA aerosol inhaler 2 puff INHALATION Q6H PRN (Reason: Shortness Of Breath) Nurtec ODT 75 mg tablet,disintegrating 75 mg PO DAILY PRN (Reason: Migraine Headache) levalbuterol tartrate [Xopenex HFA] 45 mcg/actuation HFA aerosol inhaler 2 inh inhalation Q6H PRN (Reason: Shortness Of Breath) insulin glargine [Lantus U-100 Insulin] 100 unit/mL solution See Rx Instructions .ROUTE .COMPLEX Hold Instructions: Resume on 08/26/23. hold till PCP follow up Rx Instructions: INJECT 10 UNITS IN THE MORNING AND 40 UNITS IN THE EVENING. scopolamine base 1 mg over 3 days patch 3 day 1 patch topical Q3D tenofovir disoproxil fumarate 300 mg tablet 300 mg PO DAILY nifedipine 30 mg tablet extended release 24hr 30 mg PO DAILY 30 Days Qty: 30 0RF tizanidine 4 mg tablet 4 mg PO Q6H PRN (Reason: Spasms) 10 Days Qty: 30 0RF sumatriptan succinate 50 mg tablet See Rx Instructions .ROUTE .COMPLEX 10 Days Qty: 10 0RF Rx Instructions: TAKE 1 TABLET BY MOUTH FOR MIGRAINE. MAY REPEAT IN TWO HOURS, MAX OF 200MG IN 24 HOURS spironolactone 25 mg tablet 25 mg PO BID 30 Days Qty: 30 0RF levothyroxine 50 mcg tablet 50 mcg PO QAM 30 Days Qty: 30 2RF pantoprazole 40 mg tablet,delayed release (DR/EC) 40 mg PO BID Qty: 60 0RF levetiracetam 750 mg tablet 750 mg PO BID 30 Days Qty: 60 0RF oxycodone 30 mg tablet 30 mg PO Q4H PRN (Reason: Pain) 2 Days Qty: 12 0RF lactulose 10 gram/15 mL solution 90 ml PO TID 30 Days Qty: 8100 0RF Creon 3,000-9,500- 15,000 unit capsule,delayed release(DR/EC) 1 cap PO TID 30 Days Qty: 30 0RF Anoro Ellipta 62.5-25 mcg/actuation blister with device 1 inh INHALATION DAILY 30 Days Qty: 30 0RF potassium chloride 20 mEq tablet extended release 20 meq PO DAILY 15 Days Qty: 15 0RF metoclopramide HCl 5 mg tablet 5 mg PO QID PRN (Reason: nausea/emesis) cholecalciferol (vitamin D3) 1,250 mcg (50,000 unit) capsule 50,000 unit PO Q7D Xifaxan 550 mg tablet 550 mg PO BID gabapentin 300 mg capsule 600 mg PO BID Discharge Orders: Discharge ED (Routine); Ordered 01/17/24 Ordered By: Daniel Aden Referrals: Francisco Mckinley DO [Primary Care Provider] - 1 week Patient Instructions: Biliary Colic (ED), Abdominal Pain (ED), Urinary Tract Infection - Women Activity Restrictions/Additional Instructions: Please follow-up with your family practitioner in the next 7 to 10 days for further evaluation and treatment of your biliary colic. Please picking table worker your prescriptions at the pharmacy and take medicines as prescribed. Thank you for choosing [facility] for your healthcare needs today. Please realize that you were seen in the emergency department and that we are providing you with an emergency medical screening exam and this may not be a complete and all exclusive of all testing and/or medical workup we may need to determine your element or severity of your illness. It is very important that you follow-up as instructed with your primary care provider or specialist for the additional evaluation and to discuss your medical treatment plan. You may return to the emergency department should you have concerns or if your condition changes or worsens in any way. Coding Level of Care Code ED Medical Laboratory Scientist for Margarito Medrnao
[2024-01-17 13:09] LABS: Basophils # 0.1 10^3/uL (0.0-0.1); Basophils % 0.6 %; Eosinophils # 0.1 10^3/uL (0.0-0.8); Eosinophils % 0.8 %; Hematocrit 47.4 % (36-47); Lymphocytes # 1.6 10^3/uL (0.8-4.8); Lymphocytes % 10.6 %; Mean Corpuscular HGB Conc 33.1 g/dL (30-55); Mean Corpuscular Hemoglobin 29.6 pg (27-33); Mean Corpuscular Volume 89.3 fl (85-98); Mean Platelet Volume 11.6 fL (7.4-10.4); Monocytes # 1.6 10^3/uL (0.2-0.9); Monocytes % 10.7 %; Neutrophils # 11.71 10^3/uL (1.8-7.7); Neutrophils % 76.8 %; Nucleated Red Blood Cells % 0 %; Platelet Count 156 10^3/cmm (157-399); Red Blood Count 5.31 10^6/uL (3.85-5.65); Red Cell Distribution Width 13.2 % (12.1-15.1); White Blood Count 15.23 10^3/uL (3.29-11.43)
[2024-01-17 13:29] LABS: Albumin Level 3.4 g/dL (3.5-5.2); Alkaline Phosphatase 112 U/L (35-105); Ammonia 62 umol/L (11-51); Blood Urea Nitrogen 17 mg/dL (6-20); Calcium 8.6 mg/dL (8.5-10.5); Carbon Dioxide 20 mmol/L (22-29); Chloride 98 mmol/L (98-107); Creatinine Clr Calc Pharmacy 172.2052; Globulin 4.7 g/dL (1.3-4.6); Glomerular Filtration Rate 131.1 mL/min (90-130); Glucose 101 mg/dL (65-115); Lipase 17 U/L (13-60); Magnesium 1.8 mg/dL (1.7-2.3); Osmolality Calculated 276 mOsm/kg (285-295); Sodium 132 mmol/L (136-145); Total Bilirubin 2.3 mg/dL (0.15-1.2); Total Protein 8.1 g/dL (6.6-8.7)
--- NOTE | 2024-01-17 13:33 | PC.PHAR ---
Pt states takes all these medications on a daily basis. Except for the last 3 days. Many of her medications should be gone due to the last fill dates.
[2024-01-17 13:42] LABS: Bilirubin Urine 2+ (Negative); Blood Urine Negative (Negative); Glucose Urine UA Negative (Normal); Ketones Urine Trace (Negative); Leukocyte Esterase Urine 1+ (Negative); Nitrate Urine Positive (Negative); Protein Urine 1+ (Negative); Specific Gravity, Urine 1.028 (1.005-1.030); Urine Appearance Cloudy (CLEAR)
[2024-01-17 13:47] LABS: Add Urine Microscopic? YES; Bacteria Urine 4+ /hpf; Hyaline Casts Urine 8.26 /lpf; Squamous Epithelial Cell Urine 21-50 /hpf (0-5)
[2024-01-17 13:48] LABS: Alanine Aminotransferase 20 U/L (0-33); Anion Gap 17.7 (5-19); Aspartate Amino Transferase 41 U/L (0-32); Potassium 3.7 mmol/L (3.5-5.1)
[2024-01-17 13:48] LABS: Amphetamines Screen Urine Negative (Negative); Barbiturates Screen Urine Negative (Negative); Benzodiazepines Screen Urine Negative (Negative); Cocaine Screen Urine Negative (Negative); Opiate Screen Urine Positive (Negative); PCP Screen Urine Negative (Negative); THC Screen Urine Positive (Negative)
[2024-01-17] MEDS: ketorolac 60 mg/2 mL INJ IM (13:54)
--- NOTE | 2024-01-17 14:00 | PC.NURSE ---
pt has continued to remove vital signs equipment stating she is claustrophobic
[2024-01-17 14:01] LABS: UA Slide Review UA Slide Review Perf; Urine Color Orange (Yellow)
[2024-01-17 14:07] LABS: Add Urine Culture? Yes
--- NOTE | 2024-01-17 14:08 | US_ITS ---
WS: [id number] RIGHT UPPER QUADRANT ULTRASOUND HISTORY: ruq abd pain elevated bilirubin, COMPARISON: 10/21/2023 Liver: 15.0 cm in length. Normal size liver. Nodular surface with no mass identified. Portal Vein: Reversal of the normal hepatopetal flow. Gallbladder: Normally distended gallbladder with sludge. No stones identified. No wall thickening. No pericholecystic fluid. CBD: 0.8 cm Pancreas: Not well visualized. Right kidney: 10.0 cm in length. Normal size and echogenicity. No hydronephrosis or mass. Aorta and IVC: Unremarkable abdominal aorta and IVC. No ascites. US/US abdomen limited [id number] IMPRESSION: 1. Hepatic cirrhosis identified. 2. No hepatic mass. 3. Hepatofugal flow is reidentified within the portal vein consistent with por ivan hypertension. 4. Sludge filled gallbladder. No stones identified.
[2024-01-17] MEDS: ciprofloxacin 500 mg Tablet PO (14:20)
== END 2024-01-17 15:44 | disposition home or self-care (01) ==
PROVIDERS: Emergency Medicine; Emergency Provider Emergency Medicine; PCP Family Medicine
DX: K80.50 Calculus of bile duct without cholangitis or cholecystitis without obstruction (principal); N39.0 Urinary tract infection, site not specified; Z79.4 Long term (current) use of insulin; F17.290 Nicotine dependence, other tobacco product, uncomplicated; E11.9 Type 2 diabetes mellitus without complications; I10 Essential (primary) hypertension; J44.9 Chronic obstructive pulmonary disease, unspecified; Z99.81 Dependence on supplemental oxygen
CPT/HCPCS: 36415; 76705; 80053; 80306; 81001; 82140; 83690; 83735; 85025; 87086; 96372; 99284; J1885

== ENCOUNTER → 2024-01-30 15:02 | Outpatient (BNVA) | payer MEDICAID, SELFPAY | PROVIDERS: PCP Family Medicine; Visit Provider Internal Medicine Cardiovascular Disease | DX: R07.9 Chest pain, unspecified (principal); I26.94 Multiple subsegmental thrombotic pulmonary emboli without acute cor pulmonale; Z95.0 Presence of cardiac pacemaker; Z86.19 Personal history of other infectious and parasitic diseases; K74.60 Unspecified cirrhosis of liver; Z87.891 Personal history of nicotine dependence | CPT/HCPCS: 93005; 99215 ==

== ENCOUNTER 2024-02-29 06:47 | Outpatient (CLI) | payer MEDICAID, SELFPAY ==
--- NOTE | 2024-02-29 07:00 | USCV_ITS ---
Maribell Foreman Age: 48 Gender: F : 1975 Exam Date: 02/29/2024 07:00 Ordering Phys: Suzy Wyman MD ([email or web address]) Technologist: [place] [facility] [place]: mr tr sub ao stenosis BP: 110 / 65 HR: 92 Rhythm: Sinus Technical Quality: Adequate MEASUREMENTS (Male / Female) Normal Values 2D ECHO LV Ejection Fraction MOD 4C 56.2 % LV Ejection Fraction MOD 2C 55.9 % LV Ejection Fraction 2C AL 56.3 % LA Diameter 2.0 cm RA Systolic Volume 4C AL 25.1 ml RA Systolic Volume 4C MOD 23.7 ml IVC Diameter 2.0 cm M-MODE LA Ao Ratio MM 1.3 AV Cusp Separation MM 2.5 cm DOPPLER AV Peak Velocity 161.0 cm/s LVOT Peak Velocity 163.0 cm/s MV Peak Velocity 134.0 cm/s MV Area PHT 3.8 cm squared Mitral E to A Ratio 0.7 TV Peak Velocity 236.5 cm/s TR Peak Velocity 323.0 cm/s TR Peak Gradient 41.7 mmHg TV Peak E Velocity 151.0 cm/s PV Peak Velocity 101.0 cm/s FINDINGS Left Ventricle Normal LV size and ejection fraction of 56%. Asymmetric septal hypertrophy.Grade I/IV diastolic dysfunction (abnormal relaxation filling pattern), normal to mildly elevated filling pressures. Right Ventricle The right ventricle is normal in size and function. Right Atrium The right atrium is normal in size. Left Atrium Moderately increased left atrial size. Mitral Valve Moderate mitral annular calcification. Aortic Valve The LV outflow tract velocity was 2.6 m/s at rest. It went up to 3.6 cm/s with Valsalva Tricuspid Valve Trace tricuspid valve regurgitation. Pulmonic Valve No gross abnormalities noted Pericardium No pericardial effusion. Aorta Normal ascending aorta dimension. IVC The inferior vena cava appears normal. CONCLUSIONS Normal LV size and ejection fraction of 56%. Asymmetric septal hypertrophy.Grade I/IV diastolic dysfunction (abnormal relaxation filling pattern), normal to mildly elevated filling pressures. Moderately increased left atrial size. Moderate mitral annular calcification. The LV outflow tract velocity was 2.6 m/s at rest. It went up to 3.6 cm/s with Valsalva. Peak gradient was 53 mmHg. Resting peak gradient of 27 mmHg The above features are consistent with hypertrophic obstructive cardiomyopathy (HOCM) There is no pericardial effusion. There are no intracardiac masses. Compared to the previous study, no significant change in the 2D findings. The gradient across the LV outflow tract was normal? Dr Suzy Wyman MD [facility] (Electronically Signed) Final Date: 07 March 2024 19:19 S
== END 2024-02-29 06:48 | disposition home or self-care (01) ==
LOC: RAD 06:47
PROVIDERS: PCP Family Medicine; Visit Provider Internal Medicine Cardiovascular Disease
DX: I50.30 Unspecified diastolic (congestive) heart failure (principal); I51.7 Cardiomegaly; I34.81 Nonrheumatic mitral (valve) annulus calcification; I38 Endocarditis, valve unspecified
CPT/HCPCS: 93306

== ENCOUNTER 2024-03-31 13:37 | Emergency (ER) | payer MEDICAID, SELFPAY ==
[2024-03-31 13:45] VITALS: BP 186/118; PULSE 66; TEMP 36.8; O2SAT 99; BMI 27.1
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
--- NOTE | 2024-03-31 16:36 | XRR_ITS ---
PROCEDURE INFORMATION: Exam: XR Chest Exam date and time: 03/31/2024 4:57 PM Age: 48 years old Clinical indication: Cough and dyspnea; Prior surgery; Surgery date: 6+ months; Surgery type: Pacer; Additional info: Dyspnea/cough TECHNIQUE: Imaging protocol: Radiologic exam of the chest. Views: 1 view. COMPARISON: CR XR chest 1V portable [id number] 10/19/2023 9:18 AM FINDINGS: Lungs: Unremarkable. No consolidation. Pleural spaces: Unremarkable. No pleural effusion. No pneumothorax. Heart/Mediastinum: Unremarkable. No cardiomegaly. Bones/joints: Unremarkable. XR/XR chest 1V portable [id number] IMPRESSION: No acute findings.
--- NOTE | 2024-03-31 16:36 | ECG_ITS ---
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 Measurements Intervals [place] Rate: 70 P: 115 [place]: 175 QRS: 85 QRSD: 102 T: 80 QT: 419 QTc: 455 Interpretive Statements ELECTRONIC ATRIAL PACEMAKER ABNORMAL RHYTHM ECG Compared to ECG 01/30/2024 15:06:51 Sinus rhythm no longer present Electronically Signed On 04-01-2024 23:51:38 CLINICAL REVIEW NURSE by Suzy Wyman M.D. [id number]
--- NOTE | 2024-03-31 16:44 | CTR_ITS ---
PROCEDURE INFORMATION: Exam: CT Abdomen And Pelvis Without Contrast Exam date and time: 03/31/2024 5:33 PM Age: 48 years old Clinical indication: Abdominal pain; Generalized; Prior surgery; Surgery date: 6+ months; Surgery type: PT is a poor historian unable to tell all surgeries. Colon, hysterectomy. ; Additional info: Abd pain TECHNIQUE: Imaging protocol: Computed tomography of the abdomen and pelvis without contrast. Radiation optimization: All CT scans at this facility use at least one of these dose optimization techniques: automated exposure control; mA and/or kV adjustment per patient size (includes targeted exams where dose is matched to clinical indication); or iterative reconstruction. COMPARISON: CT abdomen pelvis wo con [id number] 01/16/2024 2:53 AM RADIATION DOSE METRICS: Total DLP (mGy-cm): 873.23 FINDINGS: Lungs: Bibasilar atelectasis. Heart: Cardiac pacing leads partially imaged. Mitral annular calcifications. Liver: Normal. No mass. Gallbladder and biliary ducts: Normal. No calcified stones. No ductal dilation. Pancreas: Normal. No ductal dilation. Spleen: Mild splenomegaly. Adrenal glands: Normal. No mass. Kidneys and ureters: Punctate 2 mm calculus in a left lower pole calyx. No hydronephrosis. Stomach and bowel: Right hemicolectomy with ileocolic anastomosis in the right lower quadrant. No evidence of bowel obstruction. Appendix: No evidence of appendicitis. Intraperitoneal space: Unremarkable. No free air. No significant fluid collection. Vasculature: Mild atherosclerotic aortoiliac calcifications. No aortic aneurysm. Lymph nodes: Unremarkable. No enlarged lymph nodes. Urinary bladder: Unremarkable as visualized. Reproductive: Status post hysterectomy. Bones/joints: Mild degenerative changes of the lumbar spine are similar to prior. No acute or aggressive osseous lesion. Soft tissues: Small fat containing umbilical hernia. CT/CT abdomen pelvis wo con [id number] IMPRESSION: No acute findings in the abdomen/pelvis.
[2024-03-31] MEDS: ondansetron 2 mg/ML SDV 2 mL 4 MG IVP (17:24)
[2024-03-31] MEDS: ketorolac 30 mg/mL INJ IVP (17:26)
[2024-03-31 17:45] LABS: Basophils # 0.1 10^3/uL (0.0-0.1); Basophils % 0.6 %; Eosinophils # 0.2 10^3/uL (0.0-0.8); Eosinophils % 2.6 %; Lymphocytes # 2.3 10^3/uL (0.8-4.8); Lymphocytes % 26.7 %; Mean Corpuscular HGB Conc 34.1 g/dL (30-55); Mean Corpuscular Hemoglobin 29.5 pg (27-33); Mean Corpuscular Volume 86.5 fl (85-98); Mean Platelet Volume 11.3 fL (7.4-10.4); Monocytes # 0.8 10^3/uL (0.2-0.9); Monocytes % 9.9 %; Neutrophils # 5.09 10^3/uL (1.8-7.7); Neutrophils % 59.8 %; Nucleated Red Blood Cells % 0 %; Platelet Count 169 10^3/cmm (157-399); Red Blood Count 4.74 10^6/uL (3.85-5.65); Red Cell Distribution Width 13.2 % (12.1-15.1)
[2024-03-31 17:46] LABS: Alanine Aminotransferase 18 U/L (0-33); Albumin Level 3.4 g/dL (3.5-5.2); Alkaline Phosphatase 85 U/L (35-105); Anion Gap 14.1 (5-19); Aspartate Amino Transferase 29 U/L (0-32); Blood Urea Nitrogen 8 mg/dL (6-20); Calcium 9.3 mg/dL (8.5-10.5); Carbon Dioxide 22 mmol/L (22-29); Chloride 105 mmol/L (98-107); Creatinine Clr Calc Pharmacy 172.2052; Globulin 3.9 g/dL (1.3-4.6); Glomerular Filtration Rate 131.1 mL/min (90-130); Glucose 123 mg/dL (65-115); Lipase 24 U/L (13-60); Magnesium 1.5 mg/dL (1.7-2.3); Osmolality Calculated 284 mOsm/kg (285-295); Potassium 4.1 mmol/L (3.5-5.1); Sodium 137 mmol/L (136-145); Total Bilirubin 0.8 mg/dL (0.15-1.2); Total Protein 7.3 g/dL (6.6-8.7)
[2024-03-31 18:36] VITALS: BP 160/93; PULSE 60; O2SAT 97
--- NOTE | 2024-03-31 18:58 | PC.NURSE ---
pt refused urine sample - MD notified.
[2024-03-31 19:07] VITALS: BP 160/93; PULSE 60; O2SAT 97
== END 2024-03-31 19:09 | disposition home or self-care (01) ==
PROVIDERS: Emergency Medicine; Family Medicine; Emergency Provider Emergency Medicine; PCP Family Medicine
DX: R10.84 Generalized abdominal pain (principal); Z79.4 Long term (current) use of insulin; Z87.891 Personal history of nicotine dependence; J44.9 Chronic obstructive pulmonary disease, unspecified; Z99.81 Dependence on supplemental oxygen; E11.9 Type 2 diabetes mellitus without complications
CPT/HCPCS: 71045; 74176; 80053; 83690; 83735; 85025; 93005; 96374; 96375; 99285; J1885; J2405

== ENCOUNTER 2024-04-02 18:48 | Emergency (ER) | payer MEDICAID, SELFPAY ==
[2024-04-02 18:50] VITALS: BP 78/55; RESP 18; TEMP 36.8; O2SAT 95; BMI 27.1
[2024-04-02 19:03] VITALS: BP 96/52
--- NOTE | 2024-04-02 19:11 | ED_ITS ---
HPI - Abdominal Pain 2 General: Chief Complaint: Abdominal Pain Stated Complaint: Fall post fall/ abd pain/Ams Time Seen by Provider: 04/02/24 18:59 Source: patient Mode of arrival: EMS Limitations: no limitations History of Present Illness: Patient is a 48-year-old female presenting to the emergency department by ambulance complaining of abdominal pain. Was seen here on 03/31 for the same thing, had labs and normal CT at that time. States pain has worsened, she has been falling due to the pain and weakness. On arrival here she was very irritable, stating she wanted immediate transfer to [facility] in [place]. Initially did not provide any history, when I spoke to her she was telling me that the pain is worsened and she is just would do anything for pain medicine. States that she used to be on narcotics and had to wean off of these with methadone, but that the pain has never been this severe. She believes it is her gallbladder, she says I just want the damn thing out. She is stating that the pain is all over her abdomen, she is having vomiting and diarrhea associated, with nausea. No fever, urinary symptoms, or other symptoms at this time. MD elicited complaint: abdominal pain Onset (ago): day(s) Pain Consistency: constant Location: Diffuse Associated Symptoms: Reports diarrhea, nausea and vomiting; Denies bloating, change in stool character, chills, constipation, dysuria, fever(s) and hematochezia Related Data Home Medications Medication Instructions Recorded Confirmed insulin glargine 100 unit/mL See Rx Instructions .Route .COMPLEX 11/23/22 01/17/24 subcutaneous solution (Lantus U-100 Insulin) scopolamine base 1 mg over 3 days 1 patch topical Q3D 04/27/23 01/17/24 transdermal patch tenofovir disoproxil fumarate 300 300 mg PO DAILY 04/27/23 01/17/24 mg tablet zinc sulfate 50 mg zinc (220 mg) 50 mg PO DAILY 08/15/23 01/17/24 capsule albuterol sulfate 90 mcg/actuation 2 puff inhalation Q6H PRN 10/19/23 01/17/24 aerosol inhaler (Ventolin HFA) Shortness Of Breath amitriptyline 75 mg tablet 75 mg PO BEDTIME 10/19/23 01/17/24 doxepin 10 mg capsule 10 mg PO BEDTIME PRN Sleep 10/19/23 01/17/24 furosemide 40 mg tablet See Rx Instructions .Route .COMPLEX 10/19/23 01/17/24 levalbuterol tartrate 45 2 inh inhalation Q6H PRN Shortness 10/19/23 01/17/24 mcg/actuation aerosol inhaler Of Breath (Xopenex HFA) rimegepant 75 mg disintegrating 75 mg PO DAILY PRN Migraine 10/19/23 01/17/24 tablet (Nurtec ODT) Headache cholecalciferol (vitamin D3) 1,250 50,000 unit PO Q7D 01/17/24 01/17/24 mcg (50,000 unit) capsule gabapentin 300 mg capsule 600 mg PO BID 01/17/24 01/17/24 metoclopramide HCl 5 mg tablet 5 mg PO QID PRN nausea/emesis 01/17/24 01/17/24 rifaximin 550 mg tablet (Xifaxan) 550 mg PO BID 01/17/24 01/17/24 Previous Rx's Medication Instructions Recorded lactulose 10 gram/15 mL oral 90 ml PO TID 30 days #8,100 mL 08/19/23 solution levetiracetam 750 mg tablet 750 mg PO BID 30 days #60 tabs 08/19/23 levothyroxine 50 mcg tablet 50 mcg PO QAM 30 days #30 tabs 08/19/23 xwqfyt-uhzpliis-qzngato 1 cap PO TID 30 days #30 caps 08/19/23 3,000-9,500-15,000 unit capsule, delayed rel (Creon) nifedipine 30 mg tablet,extended 30 mg PO DAILY 30 days #30 tabs 08/19/23 release 24 hr oxycodone 30 mg tablet 30 mg PO Q4H PRN Pain 2 days #12 08/19/23 tabs pantoprazole 40 mg tablet,delayed 40 mg PO BID #60 tabs 08/19/23 release potassium chloride 20 mEq 20 meq PO DAILY 15 days #15 tabs 08/19/23 tablet,extended release spironolactone 25 mg tablet 25 mg PO BID 30 days #30 tabs 08/19/23 sumatriptan succinate 50 mg tablet See Rx Instructions .Route 08/19/23 .COMPLEX 10 days #10 tabs tizanidine 4 mg tablet 4 mg PO Q6H PRN Spasms 10 days #30 08/19/23 tabs umeclidinium 62.5 mcg-vilanterol 1 inh inhalation DAILY 30 days #30 08/19/23 25 mcg/actuation powdr for ea inhalation (Anoro Ellipta) ciprofloxacin HCl 500 mg tablet 500 mg PO BID #14 tabs 01/17/24 (Cipro) promethazine 25 mg tablet 25 mg PO TID PRN nausea and 01/17/24 vomiting #14 tabs Allergies Allergy/AdvReac Type Severity Reaction Status Date / Time codeine Allergy Unknown Unknown Verified 03/31/24 13:51 aspirin Allergy ALGY-Hives Verified 03/31/24 13:51 diphenhydramine Allergy ADR-Muscle Verified 03/31/24 13:51 [From Benadryl] Pain Sulfa (Sulfonamide Allergy ALGY-Swell Verified 03/31/24 13:51 Antibiotics) Lip/Tongue/Throat Review of Systems 2 General: Reports: 10 or more systems reviewed and unremarkable except in HPI and below Const: Denies: fever(s), chills, change in appetite, change in weight or diaphoresis ENMT: Denies: throat pain or hoarseness Card: Denies: chest pain, palpitations or lightheadedness Resp: Denies: dyspnea, productive cough or wheezing GI: Reports: abdominal pain, nausea, vomiting and diarrhea; Denies: constipation, bloating, change in stool character or hematochezia : Denies: flank pain, difficulty voiding, dysuria, urinary frequency or urinary urgency Musc: Reports: muscle weakness; Denies: neck pain or back pain Skin/Breast: Denies: rash or new lesions Neuro: Denies: headache(s) or dizziness PFSH ED 2 PFSH: Medical History Hypokalemia nursing home (current) use of opiate analgesic Pain management contract signed Metabolic encephalopathy SSS (sick sinus syndrome) Presence of permanent cardiac pacemaker Seizure disorder Tobacco dependency Hypothyroidism Accidental fentanyl overdose Overdose Cardiac arrest COPD (chronic obstructive pulmonary disease) Chronically on 3 L of oxygen Smoker Thrombocytopenia Bilateral pulmonary embolism Hepatitis B Pulmonary embolism Nicotine dependence, cigarettes, with unspecified nicotine-induced disorders Chronic hepatitis B Chronic abdominal pain Chronic hip pain Leg cramps Stomach cancer Pelvic inflammatory disease Diabetes mellitus Hypertension Encephalopathy Cirrhosis Gastroesophageal reflux GI bleeding Surgical History H/O right hemicolectomy History of right hemicolectomy H/O tubal ligation History of laparotomy History of hysterectomy Family History Mother Diabetes Father CAD (coronary artery disease) Other Cancer Social History Smoking and tobacco/nicotine status: former use of tobacco/nicotine Quit status (tobacco/nicotine): has quit using Year quit tobacco: 2020 Former quit date comment: 2ppd x 26 year Hx Alcohol intake: never Substance/Drug Use: never Physical Exam 2 Const: COMMON NORMALS: patient oriented x3 GENERAL APPEARANCE: anxious and disheveled ORIENTATION/CONSCIOUSNESS: Yes awake OTHER: Poor historian HENMT: COMMON NORMALS: normocephalic, atraumatic and moist oral mucous membranes HEAD & SCALP: normocephalic and atraumatic Eye: COMMON NORMALS: Equal, round and reactive pupils present, EOMs intact bilaterally, conjunctivae normal and normal visual puckett by confrontation C ONJUNCTIVA: Yes conjunctivae normal PUPIL: Yes Equal, round and reactive pupils present Neck/C-Spine: COMMON NORMALS: full ROM, supple, no meningeal signs and no JVD Resp: COMMON NORMALS: normal respiratory effort, No retractions, No use of accessory muscles and clear to auscultation bilaterally AUSCULTATION: clear to auscultation bilaterally, no crackles, no rales, no rhonchi and no wheezes Cardio: COMMON NORMALS: no JVD, regular rate, regular rhythm, No gallops present (Cardio), No clicks present (Cardio), No murmurs present (Cardio), No rub (Cardio) and Peripheral pulses 2+ throughout RATE: regular rate R HYTHM: regular rhythm PERIPHERAL PULSES: Peripheral pulses 2+ throughout GI: COMMON NORMALS: Normal to inspection, nondistended, normoactive bowel sounds present, Soft to palpation, No hepatosplenomegaly present and no masses AUSCULTATION: Yes normoactive bowel sounds PALPATION: Yes Soft to palpation, Yes Tenderness to palpation present (GI) (Diffuse, to very light palpation), No Guarding due to palpation present (GI), No Rigid due to palpation and Yes No hepatosplenomegaly present RECTAL EXAM: deferred : COMMON NORMALS: Yes no CVA tenderness BLADDER/KIDNEY EXAM: Yes no CVA tenderness Back/Pelvis: COMMON NORMALS: no CVA tenderness Extremity: COMMON NORMALS: normal to inspection and full ROM Neuro: COMMON NORMALS: patient oriented x3, moves all extremities, no focal motor deficits and no sensory deficits noted MENINGEAL SIGNS: Yes no meningeal signs Skin: COMMON NORMALS: no rashes or lesions noted GENERAL SKIN EXAM: no rashes or lesions noted Course 2 Vital Signs: Vital signs: Vital Signs Temperature 98.2 F 04/02/24 18:50 Pulse Rate 79 04/02/24 21:40 Respiratory Rate 18 04/02/24 21:40 Blood Pressure 100/51 04/02/24 21:40 Pulse Oximetry 99 04/02/24 21:40 Oxygen Delivery Me thod Room Air 04/02/24 21:40 MDM - Abdominal Pain Medical Decision Making Patient well-known here to the emergency department presenting for the second time and just over 24 hours for continued abdominal pain. She was adamant that it was her gallbladder. She became very rude with all of the staff and was frequently yelling at nurses and techs, specifically demanding pain medication. Got lab work, unchanged from previous. She initially denied ultrasound the gallbladder but agreed later. Ultrasound not show any acute cholecystitis or cholelithiasis, other chronic findings were noted. She did recently undergo CT that was unremarkable. Gave her a shot of Toradol, discharged with return precautions. Lab Data 04/02/24 19:57 04/02/24 19:57 Labs/Radiology: Radiology Impressions Gallbladder Ultrasound 04/02/24 19:12 IMPRESSION: 1. Negative for cholelithiasis or cholecystitis. 2. Right hepatic lobe 8 mm cyst. 3. Right kidney 7 mm cyst. 4. Renal pyramids appear somewhat echogenic, please correlate with renal function, findings may reflect potential nephrocalcinosis, however, this is not confirmed on comparison same day CT abdomen and pelvis. Laboratory Results WBC 10.26 10^3/uL (3.29-11.43) 04/02/24 19:57 RBC 4.57 10^6/uL (3.85-5.65) 04/02/24 19:57 Hgb 13.60 g/dL (11.27-16.99) 04/02/24 19:57 Hct 40.8 % (36-47) 04/02/24 19:57 MCV 89.3 fl (85-98) 04/02/24 19:57 MCH 29.8 pg (27-33) 04/02/24 19:57 MCHC 33.3 g/dL (30-55) 04/02/24 19:57 RDW 13.3 % (12.1-15.1) 04/02/24 19:57 Plt Count 171 10^3/cmm (157-399) 04/02/24 19:57 MPV 10.5 fL (7.4-10.4) H 04/02/24 19:57 Neut % (Auto) 63.8 % 04/02/24 19:57 Lymph % (Auto) 22.7 % 04/02/24 19:57 [place] % (Auto) 10.9 % 04/02/24 19:57 Eos % (Auto) 1.5 % 04/02/24 19:57 Baso % (Auto) 0.7 % 04/02/24 19:57 Neut # (Auto) 6.55 10^3/uL (1.8-7.7) 04/02/24 19:57 Lymph # (Auto) 2.3 10^3/uL (0.8-4.8) 04/02/24 19:57 [place] # (Auto) 1.1 10^3/uL (0.2-0.9) H 04/02/24 19:57 Eos # (Auto) 0.2 10^3/uL (0.0-0.8) 04/02/24 19:57 Baso # (Auto) 0.1 10^3/uL (0.0-0.1) 04/02/24 19:57 Nucleated RBC % (auto) 0 % 04/02/24 19:57 Nucleated RBCs # 0.0 /100WBC 04/02/24 19:57 Sodium 138 mmol/L (136-145) 04/02/24 19:57 Potassium 3.7 mmol/L (3.5-5.1) 04/02/24 19:57 Chloride 105 mmol/L (98-107) 04/02/24 19:57 Carbon Dioxide 21 mmol/L (22-29) L 04/02/24 19:57 Anion Gap 15.7 (5-19) 04/02/24 19:57 BUN 10 mg/dL (6-20) 04/02/24 19:57 Creatinine 0.8 mg/dL (0.5-0.9) 04/02/24 19:57 GFR Calculation 76.2 mL/min (90-130) L 04/02/24 19:57 Glucose 101 mg/dL (65-115) 04/02/24 19:57 Calculated Osmolality 285 mOsm/kg (285-295) 04/02/24 19:57 Calcium 9.0 mg/dL (8.5-10.5) 04/02/24 19:57 Total Bilirubin 0.5 mg/dL (0.15-1.2) 04/02/24 19:57 AST 31 U/L (0-32) 04/02/24 19:57 ALT 20 U/L (0-33) 04/02/24 19:57 Alkaline Phosphatase 89 U/L (35-105) 04/02/24 19:57 Total Protein 7.0 g/dL (6.6-8.7) 04/02/24 19:57 Albumin 3.2 g/dL (3.5-5.2) L 04/02/24 19:57 Globulin 3.8 g/dL (1.3-4.6) 04/02/24 19:57 Lipase 34 U/L (13-60) 04/02/24 19:57 Urine Color Dark yellow (Yellow) A 04/02/24 19:37 Urine Appearance Cloudy (CLEAR) A 04/02/24 19:37 Urine pH 6.0 (5-7) 04/02/24 19:37 Ur Specific [place] 1.023 (1.005-1.030) 04/02/24 19:37 Urine Protein 1+ (Negative) A 04/02/24 19:37 Urine Glucose (UA) Negative (Normal) 04/02/24 19:37 Urine Ketones 1+ (Negative) H 04/02/24 19:37 Urine Blood Negative (Negative) 04/02/24 19:37 Urine Nitrate Negative (Negative) 04/02/24 19:37 Urine Bilirubin 2+ (Negative) H 04/02/24 19:37 Urine Urobilinogen 1.0 mg/dL (Negative) 04/02/24 19:37 Ur Leukocyte Esterase 1+ (Negative) A 04/02/24 19:37 Urine RBC 0-2 /hpf (0-2) 04/02/24 19:37 Urine WBC 6-10 /hpf (0-5) 04/02/24 19:37 Ur Squamous Epith Cells 0-5 /hpf (0-5) 04/02/24 19:37 Amorphous Sediment Not Reportable 04/02/24 19:37 Urine Bacteria 1+ /hpf (NONE) H 04/02/24 19:37 Hyaline Casts 151.43 /lpf 04/02/24 19:37 Urine Mucus 2+ /hpf 04/02/24 19:37 All radiology interpretation(s) finalized by discharge Discharge Plan Discharge Patient Disposition: Home Clinical Impression: Abdominal pain Qualifiers: Abdominal location: generalized Qualified Code(s): R10.84 - Generalized abdominal pain Condition: Stable Prescriptions: No Action zinc sulfate 50 mg zinc (220 mg) capsule 50 mg PO DAILY amitriptyline 75 mg tablet 75 mg PO BEDTIME furosemide 40 mg tablet See Rx Instructions .ROUTE .COMPLEX Rx Instructions: TAKE 2 TABLETS BY MOUTH EVERY MORNING AND ONE EVERY DAY AFTER LUNCH doxepin 10 mg capsule 10 mg PO BEDTIME PRN (Reason: Sleep) albuterol sulfate [Ventolin HFA] 90 mcg/actuation HFA aerosol inhaler 2 puff INHALATION Q6H PRN (Reason: Shortness Of Breath) Nurtec ODT 75 mg tablet,disintegrating 75 mg PO DAILY PRN (Reason: Migraine Headache) levalbuterol tartrate [Xopenex HFA] 45 mcg/actuation HFA aerosol inhaler 2 inh inhalation Q6H PRN (Reason: Shortness Of Breath) insulin glargine [Lantus U-100 Insulin] 100 unit/mL solution See Rx Instructions .ROUTE .COMPLEX Hold Instructions: Resume on 08/26/23. hold till PCP follow up Rx Instructions: INJECT 10 UNITS IN THE MORNING AND 40 UNITS IN THE EVENING. scopolamine base 1 mg over 3 days patch 3 day 1 patch topical Q3D tenofovir disoproxil fumarate 300 mg tablet 300 mg PO DAILY nifedipine 30 mg tablet extended release 24hr 30 mg PO DAILY 30 Days Qty: 30 0RF tizanidine 4 mg tablet 4 mg PO Q6H PRN (Reason: Spasms) 10 Days Qty: 30 0RF sumatriptan succinate 50 mg tablet See Rx Instructions .ROUTE .COMPLEX 10 Days Qty: 10 0RF Rx Instructions: TAKE 1 TABLET BY MOUTH FOR MIGRAINE. MAY REPEAT IN TWO HOURS, MAX OF 200MG IN 24 HOURS spironolactone 25 mg tablet 25 mg PO BID 30 Days Qty: 30 0RF levothyroxine 50 mcg tablet 50 mcg PO QAM 30 Days Qty: 30 2RF pantoprazole 40 mg tablet,delayed release (DR/EC) 40 mg PO BID Qty: 60 0RF levetiracetam 750 mg tablet 750 mg PO BID 30 Days Qty: 60 0RF oxycodone 30 mg tablet 30 mg PO Q4H PRN (Reason: Pain) 2 Days Qty: 12 0RF lactulose 10 gram/15 mL solution 90 ml PO TID 30 Days Qty: 8100 0RF Creon 3,000-9,500- 15,000 unit capsule,delayed release(DR/EC) 1 cap PO TID 30 Days Qty: 30 0RF Anoro Ellipta 62.5-25 mcg/actuation blister with device 1 inh INHALATION DAILY 30 Days Qty: 30 0RF potassium chloride 20 mEq tablet extended release 20 meq PO DAILY 15 Days Qty: 15 0RF metoclopramide HCl 5 mg tablet 5 mg PO QID PRN (Reason: nausea/emesis) cholecalciferol (vitamin D3) 1,250 mcg (50,000 unit) capsule 50,000 unit PO Q7D Xifaxan 550 mg tablet 550 mg PO BID gabapentin 300 mg capsule 600 mg PO BID promethazine 25 mg tablet 25 mg PO TID PRN (Reason: nausea and vomiting) Qty: 14 0RF ciprofloxacin HCl [Cipro] 500 mg tablet 500 mg PO BID Qty: 14 0RF Discharge Orders: Discharge ED (Routine); Ordered 04/02/24 Ordered By: Meliton Encarnacion Referrals: Francisco Mckinley DO [Primary Care Provider] - Patient Instructions: Abdominal Pain (ED), Pain Management Activity Restrictions/Additional Instructions: Please follow-up with primary care for further evaluation. Return with any new or worsening. Coding Level of Care Code ED Paving Foreman for 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
--- NOTE | 2024-04-02 19:12 | USR_ITS ---
PROCEDURE INFORMATION: Exam: US Abdomen, Limited; Right Upper Quadrant Exam date and time: 04/02/2024 8:30 PM Age: 48 years old Clinical indication: Abdominal pain; Generalized; Additional info: Ruq pain, thinks gb TECHNIQUE: Imaging protocol: Real time ultrasound of the abdomen with image documentation. Limited exam focused on the right upper quadrant. COMPARISON: US abdomen limited [id number] 01/17/2024 2:33 PM FINDINGS: Liver: Right hepatic lobe 8 mm cyst. Gallbladder: Normal. No gallstones. There is no gallbladder wall thickening. Biliary ducts: Normal. No stones. No dilation. Pancreas: Visualized pancreas is unremarkable. Right kidney: Right kidney 7 mm cyst. Other findings: Renal pyramids appear somewhat echogenic, please correlate with renal function, findings may reflect potential nephrocalcinosis, however, this is not confirmed on comparison same day CT abdomen and pelvis. US/US gall bladder [id number] IMPRESSION: 1. Negative for cholelithiasis or cholecystitis. 2. Right hepatic lobe 8 mm cyst. 3. Right kidney 7 mm cyst. 4. Renal pyramids appear somewhat echogenic, please correlate with renal function, findings may reflect potential nephrocalcinosis, however, this is not confirmed on comparison same day CT abdomen and pelvis.
[2024-04-02] MEDS: ketorolac 60 mg/2 mL INJ IM (19:28)
[2024-04-02] MEDS: ondansetron 2 mg/ML SDV 2 mL 8 MG IM (19:28)
--- NOTE | 2024-04-02 19:31 | PC.NURSE ---
Pt has been hostile since her arrival to the ED. Pt is yelling and screaming at every person that enters her room. [facility] When this nurse attempts to explain the reasons why we can not transfer without a reason or a excepting physician. When attempting to administer medications prescribed by the PA the pt stated I told that [facility] doctor that toradol doesn't work for me . When this nurse turned to leave the room the pt stated I'll take the shit and leave . The pt is refusing to allow the tech to do a gallbladder US. ED PA informed of events.
[2024-04-02 19:51] LABS: Bilirubin Urine 2+ (Negative); Blood Urine Negative (Negative); Glucose Urine UA Negative (Normal); Ketones Urine 1+ (Negative); Leukocyte Esterase Urine 1+ (Negative); Nitrate Urine Negative (Negative); Protein Urine 1+ (Negative); Specific Gravity, Urine 1.023 (1.005-1.030); Urine Appearance Cloudy (CLEAR); Urine Color Dark Yellow (Yellow)
[2024-04-02 19:56] LABS: Add Urine Microscopic? YES; Bacteria Urine 1+ /hpf; Hyaline Casts Urine 151.43 /lpf; RBC Urine 0-2 /hpf (0-2); Squamous Epithelial Cell Urine 0-5 /hpf (0-5)
[2024-04-02 20:05] LABS: Basophils # 0.1 10^3/uL (0.0-0.1); Basophils % 0.7 %; Eosinophils # 0.2 10^3/uL (0.0-0.8); Eosinophils % 1.5 %; Hematocrit 40.8 % (36-47); Lymphocytes # 2.3 10^3/uL (0.8-4.8); Lymphocytes % 22.7 %; Mean Corpuscular HGB Conc 33.3 g/dL (30-55); Mean Corpuscular Hemoglobin 29.8 pg (27-33); Mean Corpuscular Volume 89.3 fl (85-98); Mean Platelet Volume 10.5 fL (7.4-10.4); Monocytes # 1.1 10^3/uL (0.2-0.9); Monocytes % 10.9 %; Neutrophils # 6.55 10^3/uL (1.8-7.7); Neutrophils % 63.8 %; Nucleated Red Blood Cells % 0 %; Platelet Count 171 10^3/cmm (157-399); Red Blood Count 4.57 10^6/uL (3.85-5.65); Red Cell Distribution Width 13.3 % (12.1-15.1); White Blood Count 10.26 10^3/uL (3.29-11.43)
[2024-04-02 20:13] VITALS: BP 102/47; PULSE 81; RESP 18; O2SAT 98
[2024-04-02 20:23] LABS: Alanine Aminotransferase 20 U/L (0-33); Albumin Level 3.2 g/dL (3.5-5.2); Alkaline Phosphatase 89 U/L (35-105); Anion Gap 15.7 (5-19); Aspartate Amino Transferase 31 U/L (0-32); Blood Urea Nitrogen 10 mg/dL (6-20); Carbon Dioxide 21 mmol/L (22-29); Chloride 105 mmol/L (98-107); Creatinine Clr Calc Pharmacy 107.6282; Globulin 3.8 g/dL (1.3-4.6); Glomerular Filtration Rate 76.2 mL/min (90-130); Glucose 101 mg/dL (65-115); Lipase 34 U/L (13-60); Osmolality Calculated 285 mOsm/kg (285-295); Potassium 3.7 mmol/L (3.5-5.1); Sodium 138 mmol/L (136-145); Total Bilirubin 0.5 mg/dL (0.15-1.2)
[2024-04-02 20:25] LABS: UA Slide Review UA Slide Review Perf
[2024-04-02 20:26] LABS: Add Urine Culture? No; Mucus Urine 2+ /hpf
[2024-04-02 21:40] VITALS: BP 100/51; PULSE 79; RESP 18; O2SAT 99
== END 2024-04-02 22:50 | disposition home or self-care (01) ==
PROVIDERS: Emergency Provider Physician Assistant; PCP Family Medicine
DX: R10.84 Generalized abdominal pain (principal); Z87.891 Personal history of nicotine dependence; E11.9 Type 2 diabetes mellitus without complications; J44.9 Chronic obstructive pulmonary disease, unspecified; Z99.81 Dependence on supplemental oxygen
CPT/HCPCS: 36415; 76705; 80053; 81001; 83690; 85025; 96372; 99284; J1885; J2405

== ENCOUNTER → 2024-05-02 10:54 | Outpatient (BNVA) | payer MEDICAID, SELFPAY | PROVIDERS: PCP Family Medicine; Visit Provider Nurse Practitioner Family | DX: I33.0 Acute and subacute infective endocarditis (principal); Z95.0 Presence of cardiac pacemaker; K82.9 Disease of gallbladder, unspecified; I51.7 Cardiomegaly; F17.210 Nicotine dependence, cigarettes, uncomplicated | CPT/HCPCS: 99214 ==

== ENCOUNTER 2024-09-13 13:45 | Emergency (ER) | payer MEDICAID, SELFPAY ==
--- OUTSIDE RECORDS SUMMARY | 2024-09-13 13:49 | XMS_ITS | Encounter Summary ---
Author Organization [facility] Address [address] [place] [address] Care Team Providers Care Angio Technologist Name Role Phone Francisco Mckinley DO Primary Care Provider [phone] Reason for Visit * Reason Comments Medication Refill Results Pharmacy Clarification Encounter Details Date Type Department Care Team (Late st Contact Info) Description 09/02/2024 Telephone [facility] [place] [address] [address] Francisco Mckinley DO [address] [place] [phone] Medication Refill; Results; Pharmacy Clarification Social History Tobacco Use Types Packs/Day Years Used Date Smoking Tobacco: Former Cigarettes Q uit: 03/28/2024 Passive Smoke Exposure: Never Smokeless Tobacco: Never Comments:Quit smokin-5ci garlettes daily Alcohol Use Standard Drinks/Week Comments Never 0 (1 standard drink = 0.6 oz pur e alcohol) Financial Resource Strain Answer Date R ecorded How hard is it for you to pa y for the very basics like food, housing, medical care, and heating? Very hard 02/01/2024 Food Insecurity Answer Date Recorded In the past 12 months, have you worried that your food would run out before you had money to buy more? Often true 02/01/2024 In the past 12 months, did y ou run out of food and didn't have money to buy more? Often true 02/01/2024 Transportation Needs Answer Date Record ed In the past 12 months, has l ack of transportation kept you from medical appointments or from getting medications? Yes 01/17 In the past 12 months, has l ack of transportation kept you from meetings, work, or from getting things needed for daily living? Yes 02/01/2024 Housing Stability Answer Date Recorded In the last 12 months, was t here a time when you were not able to pay the mortgage or rent on time? Yes 02/01/2024 Number of Times Moved in the Last Year Not on fi le 02/01/2024 At any time in the past 12 m ont, were you homeless or living in a retirement (including now)? Yes 02/01/2024 Feeling Safe Answer Date Recorded Are you in a relationship wi th someone who hurts you emotionally and/or physically? 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 Discussed directions for Dilaudid. Dates verified with directions tapered. Voiced understanding. Martina CASANOVA * Telephone Encounter - Farnaz Mistry - 09/11/2024 8:16 AM CDT Copied from [facility] #[id number]. Topic: Medication Request >> Sep 11, 2024 8:13 AM Farnaz Benitez wrote: Pharmacy Calling: [facility] Pharmacy Contact Name: Kacie [facility]acy Number: [phone] Pharmacy is needing clarification on directions. Medication: HYDROmorphone (DILAUDID) 4 mg tablet Is the patient there at the pharmacy waiting to fill a prescription? No Is there an encounter open? Yes * Telephone Encounter - Steffanie Verde RN - 09/05/2024 4:12 PM CDT 09/05/2024 4:12 PM The results have not been finalized or reviewed by the provider yet. Once they have been reviewed and can be given to the patient we will call them back to discuss. Steffanie RN * Telephone Encounter - Rufus Ramey - 09/05/2024 3:27 PM CDT Copied from [facility] #[id number]. Topic: CPA Information Request - Results >> Sep 05, 2024 3:25 PM Rufus Trejo wrote: Caller is requesting information about results from an order. ? Caller Name: Maribell Foreman Callback Number: [phone] Test Name: Potassium Results Encounter notes are: Telephone encounter related to results is not available and was completed less than 7 days Call Notes: Results were not given and the patient needs a call back * Telephone Encounter - Steffanie Verde RN - 09/03/2024 9:17 AM CDT 09/03/2024 9:17 AM Returned call and spoke with patient. Discussed medication tapers and she had not further questionsat this time. Steffanie RN * Telephone Encounter - Francisco Mckinley DO - 09/03/2024 8:36 AM CDT Maribell Foreman - 1975 Check and review of the [place] PDMP performed on 09/03/2024 at 8:36 AM was Completed. No suspicious activity found. Very high level of opioid with Morphine and Dilaudid. We will begin taper off of Dilaudid. 1 week sen to pharmacy. Next week Dilaudid 3 times daily. The following week twice daily. Only to be taken for breakthrough pain, not regularly scheduled. We will continue twice daily for 2 weeks then taper to once daily. Then once daily every other day.If Morphine is not sufficient for pain control then we need VV or Office visit to review pain medication. Taper sent to pharmacy. * Telephone Encounter - aDily Flores LPN - 09/02/2024 11:12 AM CDT Medication Refill Request Last Fill Date:08/29/24 Recent and Future Visits: Recent Visits Date Type Provider Dept 07/07/24 Video Visit Ailyn Leon FNP [facility] 06/27/24 Video Visit Francisco Mckinley DO [facility] 04/03/24 Office Visit Francisco Mckinley DO [facility] 02/01/24 Office Visit Francisco Mckinley DO [facility] 12/27/23 Office Visit Francisco Mckinley DO [facility] 12/13/23 Office Visit Francisco Mckinley DO [facility] 09/27/23 Office Visit Francisco Mckinley DO [facility] 08/23/23 Office Visit Kacy Lazo [facility] 04/26/23 Office Visit Francisco Mckinley DO [facility] 03/29/23 Office Visit Francisco Mckinley DO [facility] Showing recent visits within past 540 days with a meds authorizing provider and meeting all other requirements Future Appointments No visits were found meeting these conditions. Showing future appointments within next 365 days with a meds authorizing provider and meeting all other requirements * Telephone Encounter - Julieth Matias - 09/02/2024 11:05 AM CDT Copied from [facility] #[id number]. Topic: Medication Request >> Sep 02, 2024 11:02 AM Julieth Mario wrote: Caller Name: Patient Callback Number: [phone] Medication (Ask patient/caregiver to spell if possible): HYDROmorphone (DILAUDID) 4 mg tablet Note: All medication prescriptions can be requested using one CRM Preferred Pharmacy: [facility] [address] [address] [address] [facility] [address] Hours: M-F [phone] Sat [phone] Sun [phone] Call Notes: Medication is due on Did caller contact the correct clinic for prescribing provider? Yes Ask caller if the refill is for a controlled medication. Is this for a controlled Medication? Yes Is there an encounter open? 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 Office Visit [facility] [address] Robert Estrada MD [address] [place] [phone] documented as of this encounter Visit Diagnoses Diagnosis Cellulitis of right lower extremity Cellulitis and abscess of leg, except foot Cellulitis of left lower extremity Cellulitis and abscess of leg, except foot Sepsis with acute liver failure without hepatic coma or septic shock, due to unspecified organism (CMS/HCC) History of hepatitis C Personal history of other infectious and parasitic disease Uncomplicated opioid dependence Opioid type dependence, unspecified Chronic cholecystitis without calculus Chronic cholecystitis RUQ abdominal pain Abdominal pain, right upper quadrant documented in this encounter Care Teams Angio Technologist Relationship Specialty Start Date End Date Francisco Mckinley DO [address] [place] [address] PCP - General 06/07/20 documented as of this encounter
--- OUTSIDE RECORDS SUMMARY | 2024-09-13 13:49 | XMS_ITS | Clinical Summary ---
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 1 Each 3 12/15/19 21 Active naloxone (Narcan) 4 mg/spray [place], Non-Aerosol EMERGENCY USE ONLY: ADMINISTER ONE SPRAY (4 MG) IN ONE NOSTRIL ONE TIME. MAY REPEAT IN ALTERNATING NOSTRILS EVERY TWO TO THREE MIN UNTIL RESPONSIVE OR EMS ARRIVES. STRENGTH: 4 MG/ACTUATION 2 Each 3 10/21/19 23 Active Additional Information Patient not taking.Reported on 07/07/2024 ipratropium-albut Mark (DUONEB) 0.5 mg-3 mg(2.5 mg base)/3 mL Solution for Nebulization Take 3 mL by inhalation every 4 hours as needed for Shortness of Breath, Respiration or Wheezing. 05/09/19 24 Active albuterol sulfate HFA 90 mcg/actuation aerosol inhalerIndication s:Shortness of breath Take 2 Puffs by inhalation every 6 hours as needed for Shortness of Breath. 8.5 Gram 09/11/19 24 Active rifAXIMin (XIFAXAN) 550 mg TabletIndications :Portal hypertension (CMS/HCC),Hepatic cirrhosis, unspecified hepatic cirrhosis type, unspecified whether ascites present (CMS/HCC),Hepatic encephalopathy (CMS/HCC) Take 1 Tablet (550 mg) by mouth 2 times daily. 60 Tablet 12/13/19 24 Active NIFEdipine (PROCARDIA XL) 30 mg Extended Release 24 hour tabletIndications :Portal hypertension (CMS/HCC) Take 1 Tablet (30 mg) by mouth daily. 100 Tablet 12/13/19 24 Active gabapentin (NEURONTIN) 300 mg capsuleIndication s:Neuropathy Take 2 Capsules (600 mg) by mouth 2 times daily. 360 Capsule 12/13/19 24 Active furosemide (LASIX) 40 mg tabletIndications :Lymphedema of both lower extremities Take 2 Tablets (80 mg) by mouth daily in the morning AND 1 Tablet (40 mg) daily after lunch. 90 Tablet 12/13/19 24 Active lactulose (ENULOSE) 10 gram/15 mL oral solutionIndicatio ns:Alcoholic cirrhosis of liver without ascites (CMS/HCC) TAKE 90ML BY MOUTH THREE TIMES DAILY 8514 mL 12/13/19 24 Active iwakdd-frezlvad-k dmitri Cheema) 3,000-9,500-15,00 0 unit capsuleIndication s:Cirrhosis of liver without ascites, unspecified hepatic cirrhosis type (CMS/HCC) Take 1 Capsule by mouth 3 times daily with meals. 200 Capsule 12/13/19 Active pantoprazole (PROTONIX) 40 mg Tablet, Delayed Release (E.C.)Indications :Gastroesophageal reflux disease without esophagitis Take 1 Tablet (40 mg) by mouth daily. 90 Tablet 12/13/19 24 Active tiZANidine (ZANAFLEX) 4 mg TabletIndications :Muscle spasm Take 1 Tablet (4 mg) by mouth every 6 hours as needed for Spasm. 120 Tablet 12/13/19 24 Active levothyroxine 50 mcg tabletIndications :Acquired hypothyroidism Take 1 Tablet (50 mcg) by mouth daily in the morning. 100 Tablet 12/13/19 24 Active lancets (OneTouch Delica Plus Lancet) 33 gauge Check sugars 1-3 times a day. 100 Each 20 24 Active metoclopramide HCl (REGLAN) 5 mg tabletIndications :Child-García class A liver disease score,History of hepatitis C,Chronic viral hepatitis B without delta agent and without coma (CMS/HCC) Take 1 Tablet (5 mg) by mouth 4 times daily as needed for Nausea/Emesis. 60 Tablet 3 12/27/19 24 Active oxygen home deliveryIndicatio ns:Nocturnal hypoxemia due to emphysema (CMS/HCC) Home Oxygen Concentrator yes at 0 L/M Rest, 0 L/M Activity, 2 L/M Sleep, Delivery Device: Nasal Cannula Portability: no, May provide device best for patient needs(E system,home fill, conserving device) Length of Need: 99 months 1 Each 12/27/19 24 Active spironolactone (ALDACTONE) 100 mg tabletIndications :Portal hypertension (CMS/HCC),Lymphed tadeo of both lower extremities Take 1 Tablet (100 mg) by mouth daily. 90 Tablet 3 02/18/20 24 Active portable oxygenIndications :Panlobular emphysema (CMS/HCC) Face to Face completed within 30 days: yes Length of Need: 99 months By: Nasal Cannula Continuously at 2 L/min. 1 Each 03/10/20 24 Active doxepin (SINEquan) 10 mg capsuleIndication s:Insomnia, unspecified type take 1 capsule BY MOUTH every night NEEDED FOR insomnia 30 Capsule 2 04/18/19 25 Active umeclidinium-mercedez nteroL (Anoro Ellipta) 62.5-25 mcg/actuation Disk with DeviceIndications :Panlobular emphysema (CMS/HCC) INHALE 1 PUFF BY MOUTH EVERY DAY 60 Each 2 05/16/19 25 Active ibuprofen (MOTRIN) 600 mg tablet Take 1 Tablet (600 mg) by mouth every 8 hours as needed for Other (See Comment) or Pain, Moderate (fever). 05/22/19 25 Active insulin degludec (TRESIBA) 100 unit/mL pen syringe Inject 10 Units by subcutaneous injection daily with breakfast. 05/22/19 25 Active insulin degludec (TRESIBA) 100 unit/mL pen syringe Inject 10 Units by subcutaneous injection daily at bedtime. 05/22/19 25 Active ergocalciferol (VITAMIN D2) 50,000 unit capsuleIndication s:Vitamin D deficiency Take 1 Capsule (50,000 Units) by mouth every 7 days. 12 Capsule 1 05/22/19 25 Active insulin glargine (Lantus U-100 Insulin) 100 unit/mL vialIndications:T ype 2 diabetes mellitus with diabetic polyneuropathy, with long-term current use of insulin (CMS/HCC) inject 10 units SUBCUTANEOUSLY at breakfast and 40 units AT BEDTIME 30 mL 3 06/01/19 25 Active OneTouch Verio Flex meterIndications: Type 2 diabetes mellitus with diabetic polyneuropathy, with long-term current use of insulin (CMS/HCC) Check blood glucose if symptoms of hyperglycemia or hypoglycemia. DX E11.9 1 Each 06/03/19 25 Active blood sugar diagnostic (OneTouch Verio test strips) StripIndications: Type 2 diabetes mellitus with diabetic polyneuropathy, with long-term current use of insulin (CMS/[facility]) 1 Strip 3 times daily before meals. 100 Strip 2 06/03/19 25 Active BD Insulin Syringe Ultra-Fine 1 mL 31 gauge x 5/16 SyringeIndication s:Type 2 diabetes mellitus with diabetic polyneuropathy, with long-term current use of insulin ([facility]) FOR USE with insulin injections THREE TIMES DAILY (lantus and humalog) 200 Each 3 06/03/19 25 Active Blood-Glucose Meter,Continuous (Dexcom G7 Bond Runner)Indicati ons:Type 2 diabetes mellitus with diabetic polyneuropathy, with long-term current use of insulin ([facility]) Use to monitor blood glucose continuously throughout the day. 1 Each 06/03/19 25 Active Blood-Glucose Sensor (Dexcom G7 Sensor) DeviceIndications :Type 2 diabetes mellitus with diabetic polyneuropathy, with long-term current use of insulin ([facility]) USE TO MONITOR BLOOD GLUCOSE CONTINUOUSLY THROUGH THE DAY. CHANGE SENSOR EVERY 10 DAYS. 9 Each 3 06/03/19 25 Active nebulizerIndicati ons:Panlobular emphysema (CMS/HCC) Length of need 99 months Nebulizer with compressor, Kit: Disposable Nebulizer Kit, 2 per month, filters , areosol mask: No. Name of Medication albuterol. 1 Each 06/04/19 25 Active lamoTRIgine (LaMICtal) 100 mg tabletIndications :Seizure disorder (CMS/HCC) Take 1 Tablet (100 mg) by mouth daily. 90 Tablet 3 04/11/20 25 Active magnesium HYDROXIDE (Milk Of Magnesia Concentrated) 2,400 mg/10 mL Suspension Take by mouth. 05/22/19 25 Active bisacodyL (Dulcolax, bisacodyl,) 10 mg Suppository Insert by rectum. 05/22/19 25 Active Nebulizer Accessories KitIndications:Pa nlobular emphysema (CMS/HCC) Disposable mask and tubing for nebulizer. New kit every 3 months. 1 Kit 3 06/28/19 25 Active potassium CHLORIDE (KAYCIEL) 20 mEq/15 mL solutionIndicatio ns:Cirrhosis of liver without ascites, unspecified hepatic cirrhosis type (CMS/HCC),Lymphed tadeo of both lower extremities Take 30 mL (40 mEq) by mouth daily. 900 mL 5 06/28/19 25 Active polyethylene glycol 3350 (Miralax) 17 gram/dose Powder Take by mouth. 05/22/19 25 Active scopolamine (TRANSDERM-SCOP) 1 mg/72 hr patchIndications: Nausea and vomiting, unspecified vomiting type APPLY ONE PATCH TO SKIN DIRECTED EVERY 3 DAYS 10 Patch 5 08/02/19 25 Active tenofovir disoproxil fumarate (VIREAD) 300 mg TabletIndications :Cirrhosis of liver without ascites, unspecified hepatic cirrhosis type (CMS/HCC) Take 1 Tablet (300 mg) by mouth daily. 30 Tablet 5 08/02/19 25 Active amitriptyline (ELAVIL) 75 mg tabletIndications :Insomnia, unspecified type Take 1 Tablet (75 mg) by mouth daily at bedtime. 30 Tablet 2 08/21/19 25 Active morphine (MS CONTIN) 100 mg Controlled Release tabletIndications :Uncomplicated opioid dependence (CMS/HCC),Hospice care patient,Other chronic pancreatitis (CMS/HCC) Take 1 Tablet (100 mg) by mouth every 8 hours. Max Daily Amount: 300 mg 90 Tablet 08/24/19 25 2024 Active furosemide (LASIX) 80 mg tabletIndications :Lymphedema of both lower extremities Take 1 Tablet (80 mg) by mouth daily. 30 Tablet 09/02/19 25 Active HYDROmorphone (DILAUDID) 4 mg tabletIndications :Cellulitis of right lower extremity,Celluli tis of left lower extremity,Sepsis with acute liver failure without hepatic coma or septic shock, due to unspecified organism (CMS/HCC),History of hepatitis C,Uncomplicated opioid dependence (CMS/HCC),Chronic cholecystitis without calculus,RUQ abdominal pain Take 1 Tablet (4 mg) by mouth every 8 hours as needed for Pain, Break-Through. Max Daily Amount: 12 mg 21 Tablet 09/11/19 25 2024 Active HYDROmorphone (DILAUDID) 4 mg tabletIndications :Cellulitis of right lower extremity,Celluli tis of left lower extremity,Sepsis with acute liver failure without hepatic coma or septic shock, due to unspecified organism (CMS/HCC),History of hepatitis C,Uncomplicated opioid dependence (CMS/HCC),Chronic cholecystitis without calculus,RUQ abdominal pain Take 1 Tablet (4 mg) by mouth 2 times daily as needed for Pain, Break-Through. Max Daily Amount: 8 mg 14 Tablet 09/18/19 25 2024 Active HYDROmorphone (DILAUDID) 4 mg tabletIndications :Cellulitis of right lower extremity,Celluli tis of left lower extremity,Sepsis with acute liver failure without hepatic coma or septic shock, due to unspecified organism (CMS/HCC),History of hepatitis C,Uncomplicated opioid dependence (CMS/HCC),Chronic cholecystitis without calculus,RUQ abdominal pain Take 1 Tablet (4 mg) by mouth 2 times daily as needed for Pain, Break-Through. Max Daily Amount: 8 mg 14 Tablet 09/25/19 25 2024 Active HYDROmorphone (DILAUDID) 4 mg tabletIndications :Cellulitis of right lower extremity,Celluli tis of left lower extremity,Sepsis with acute liver failure without hepatic coma or septic shock, due to unspecified organism (CMS/HCC),History of hepatitis C,Uncomplicated opioid dependence (CMS/HCC),Chronic cholecystitis without calculus,RUQ abdominal pain Take 1 Tablet (4 mg) by mouth 1 time daily as needed for Pain, Break-Through. Max Daily Amount: 4 mg 7 Tablet 10/02/19 25 2024 Active amitriptyline (ELAVIL) 75 mg tabletIndications :Insomnia, unspecified type TAKE 1 TABLET BY MOUTH EVERY DAY AT BEDTIME FOR sleep 30 Tablet 2 04/18/19 25 2024 Discontin ued(Reord er) morphine (MS CONTIN) 100 mg Controlled Release tabletIndications :Uncomplicated opioid dependence (CMS/HCC),Hospice care patient,Other chronic pancreatitis (CMS/HCC) Take 1 Tablet (100 mg) by mouth every 8 hours. Max Daily Amount: 300 mg 90 Tablet 07/26/19 25 2024 Discontin ued(Reord er) nicotine (NICODERM CQ) 21 mg/24 hr patchIndications: Cigarette nicotine dependence without complication Apply 1 Patch to skin as directed every 24 hours. 14 Patch 2 07/26/19 25 2024 HYDROmorphone (DILAUDID) 4 mg tabletIndications :Cellulitis of right lower extremity,Celluli tis of left lower extremity,Sepsis with acute liver failure without hepatic coma or septic shock, due to unspecified organism (CMS/HCC),History of hepatitis C,Uncomplicated opioid dependence (CMS/HCC),Chronic cholecystitis without calculus,RUQ abdominal pain Take 1 Tablet (4 mg) by mouth every 6 hours as needed for Pain. Max Daily Amount: 16 mg 20 Tablet 08/15/19 25 2024 Discontin ued(Reord er) HYDROmorphone (DILAUDID) 4 mg tabletIndications :Cellulitis of right lower extremity,Celluli tis of left lower extremity,Sepsis with acute liver failure without hepatic coma or septic shock, due to unspecified organism (CMS/HCC),History of hepatitis C,Uncomplicated opioid dependence (CMS/HCC),Chronic cholecystitis without calculus,RUQ abdominal pain Take 1 Tablet (4 mg) by mouth every 6 hours as needed for Pain. Max Daily Amount: 16 mg 20 Tablet 08/21/19 25 2024 Discontin ued(Reord er) HYDROmorphone (DILAUDID) 4 mg tabletIndications :Cellulitis of right lower extremity,Celluli tis of left lower extremity,Sepsis with acute liver failure without hepatic coma or septic shock, due to unspecified organism (CMS/HCC),History of hepatitis C,Uncomplicated opioid dependence (CMS/HCC),Chronic cholecystitis without calculus,RUQ abdominal pain Take 1 Tablet (4 mg) by mouth every 6 hours as needed for Pain. Max Daily Amount: 16 mg 20 Tablet 08/26/19 25 2024 Discontin ued(Reord er) HYDROmorphone (DILAUDID) 4 mg tabletIndications :Cellulitis of right lower extremity,Celluli tis of left lower extremity,Sepsis with acute liver failure without hepatic coma or septic shock, due to unspecified organism (CMS/HCC),History of hepatitis C,Uncomplicated opioid dependence (CMS/HCC),Chronic cholecystitis without calculus,RUQ abdominal pain Take 1 Tablet (4 mg) by mouth every 6 hours as needed for Pain. Max Daily Amount: 16 mg 20 Tablet 08/30/19 25 2024 Discontin ued(Reord er) metOLazone (ZAROXOLYN) 5 mg tabletIndications :Essential hypertension,Lymp hedema of both lower extremities,Hepat ic cirrhosis, unspecified hepatic cirrhosis type, unspecified whether ascites present (CMS/HCC),Portal hypertension (CMS/HCC) Take 1 Tablet (5 mg) by mouth daily for 3 days. 3 Tablet 08/29/19 25 2024 HYDROmorphone (DILAUDID) 4 mg tabletIndications :Cellulitis of right lower extremity,Celluli tis of left lower extremity,Sepsis with acute liver failure without hepatic coma or septic shock, due to unspecified organism (CMS/HCC),History of hepatitis C,Uncomplicated opioid dependence (CMS/HCC),Chronic cholecystitis without calculus,RUQ abdominal pain Take 1 Tablet (4 mg) by mouth every 6 hours as needed for Pain, Break-Through. Max Daily Amount: 16 mg 28 Tablet 09/04/19 25 2024 Discontin ued(Reord er) HYDROmorphone (DILAUDID) 4 mg tabletIndications :Cellulitis of right lower extremity,Celluli tis of left lower extremity,Sepsis with acute liver failure without hepatic coma or septic shock, due to unspecified organism (CMS/HCC),History of hepatitis C,Uncomplicated opioid dependence (CMS/HCC),Chronic cholecystitis without calculus,RUQ abdominal pain Take 1 Tablet (4 mg) by mouth every 6 hours as needed for Pain, Break-Through. Max Daily Amount: 16 mg 28 Tablet 09/04/19 25 2024 Active Problems Problem Noted Date Diagnosed Date Cellulitis of left lower extremity 05/18/2024 RUQ abdominal pain 04/09/2024 Drug-induced constipation 04/09/2024 Chronic cholecystitis without calculus 01/22/202 5 Nocturnal hypoxemia due to emphysema 12/27/2023 Overview (12/27/2023): 12/19/23 overnight oxygen test Sheltered homelessness 12/27/2023 Essential hypertension 09/27/2023 Migraine with aura and witho ut status migrainosus, not intractable 08/22/2023 Emphysema of lung 04/26/2023 Overview (04/26/2023): 03/23/2022 PFT Interpretation: The spirometry consistent with moderate obstructive ventilatory impairment. There is no significant response to bronchodilators. Lung volumes mild air trapping and mild hyperinflation. Gas transfer moderately reduced. Constellation of findings consistent with moderate obstructive lung disease. Clinical correlation recommended.<<This interpretation has been electronically signed: DatarTonny MD 03/30/22 04:52:59 PM>> S/P placement of cardiac pacemaker 04/26/2023 Overview (04/26/2023): 05/08/2022 Echocardiogram, transthoracic LVEF 50-60%. Left atrial dilation. Left ventricle diastolic function abnormal. Mild mitral annular calcification, moderate mitral regurgitation progressed compared to 08/07/2021. 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 11/14/2021 Polypharmacy 01/24/2021 Inadequate social support 01/18/2021 History of hepatitis C 11/01/2020 Cigarette nicotine dependence without complicati on 11/01/2020 Child-García class A liver disease score Lymphedema of both lower extremities 10/11/2020 Uncomplicated opioid dependence 12/10/2019 Refused influenza vaccine 12/10/2019 Neoplasm of uncertain behavior of skin of face 0 12/10/2019 Failure to attend appointment 10/28/2019 Other chronic pancreatitis 03/13/2019 Type 2 diabetes mellitus wit h diabetic polyneuropathy, with long-term current use of insulin 03/13/2019 Chronic hepatitis B without hepatic coma 019 Cirrhosis 11/12/2018 Overview (04/26/2023): 05/08/2022 CT abdomen pelvis with contrast , cirrhotic liver with portal hypertension, normal pancreatic enhancement, splenomegaly, splenic vein and SMV are patent. 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 Small indeterminate low-attenuation lesion of the right hepatic lobe inferiorly unchanged. Normal caliber abdominal aorta, mild calcific changes. Celiac and SMA are patent. Proximal INA is patent. Portal hypertension 11/12/2018 Seizure disorder 11/12/2018 Acquired hypothyroidism 11/12/2018 Hepatic encephalopathy 11/12/2018 Resolved Problems Problem Noted Date Diagnosed Date Resolved Date Sepsis 05/18/2024 05/21/2024 Ischemic bowel disease 04/01/202201/31 Necrosis of intestine 04/01/20222023 C. difficile colitis 09/26/2019 021 BRBPR (bright red blood per rectum) 09/24/2019 04/04/2022 History of GI bleed 03/13/2019 04/09/19 20 Hyperammonemia 03/13/2019 04/04/2022 Acute upper GI bleed 12/01/2018 020 Abdominal pain, acute, right upper quadrant 11/12/2018 04/09/2019 Overview (07/14/2020): Acute on chronic Bilateral leg weakness 11/12/201804/09 Hypotension 11/12/2018 04/09/2019 Bilateral arm weakness 11/12/201804/09 History of insulin dependent diabetes mellitus 11/12/2018 04/09/2019 Myalgia 11/12/2018 04/09/2019 Encounters Date Type Department Care Team Description 09/13/[address] [phone] Francisco Mckinley DO Uncomplicated opioid dependence; Hospice care patient; Other chronic pancreatitis [address] [phone] Francisco Mckinley DO Provider Call 09/02/[address] [phone] Francisco Mckinley DO Medication Refill; Results; Pharmacy Clarification 08/28/[address] [phone] Francisco Mckinley DO Information; Weight Check; Information 08/28/[address] [phone] Francisco Mckinley DO Cellulitis of right lower extremity; Cellulitis of left lower extremity; Sepsis with acute liver failure without hepatic coma or septic shock, due to unspecified organism (CMS/HCC); History of hepatitis C; Uncomplicated opioid dependence; Chronic cholecystitis without calculus; RUQ abdominal pain 08/26/[address] [phone] Francisco Mckinley DO Weight Gain 08/25/[address] [phone] Francisco Mckinley DO Cellulitis of right lower extremity; Cellulitis of left lower extremity; Sepsis with acute liver failure without hepatic coma or septic shock, due to unspecified organism (CMS/HCC); History of hepatitis C; Uncomplicated opioid dependence; Chronic cholecystitis without calculus; RUQ abdominal pain 08/19/[address] [phone] Francisco Mckinley DO Uncomplicated opioid dependence; Hospice care patient; Other chronic pancreatitis 08/19/[address] [phone] Francisco Mckinley DO Cellulitis of right lower extremity; Cellulitis of left lower extremity; Sepsis with acute liver failure without hepatic coma or septic shock, due to unspecified organism (CMS/HCC); History of hepatitis C; Uncomplicated opioid dependence; Chronic cholecystitis without calculus; RUQ abdominal pain; Insomnia, unspecified type 08/12/[address] [phone] Francisco Mckinley DO Cellulitis of right lower extremity; Cellulitis of left lower extremity; Sepsis with acute liver failure without hepatic coma or septic shock, due to unspecified organism (CMS/HCC); History of hepatitis C; Uncomplicated opioid dependence; Chronic cholecystitis without calculus; RUQ abdominal pain 08/06/[address] [phone] Francisco Mckinley DO Uncomplicated opioid dependence; Hospice care patient; Other chronic pancreatitis 08/04/[address] [phone] Francisco Mckinley DO 07/29/2024 External Device Data ST[facility] ABSTRACTION Provider, Abstract 07/29/2024 External Device Data [facility] ABSTRACTION Provider, Abstract 07/29/2024 [facility] [address] [place] [address] Meliton Mckinley MD Cirrhosis of liver without ascites, unspecified hepatic cirrhosis type (CMS/HCC) 07/29/[address] [phone] Francisco Mckinley DO Nausea and vomiting, unspecified vomiting type 07/28/[address] [phone] Francisco Mckinley DO Cellulitis of right lower extremity; Cellulitis of left lower extremity; Sepsis with acute liver failure without hepatic coma or septic shock, due to unspecified organism (CMS/HCC); History of hepatitis C; Uncomplicated opioid dependence; Chronic cholecystitis without calculus; RUQ abdominal pain 07/25/[address] [phone] Francisco Mckinley DO Information 07/23/[address] [phone] Francisco Mckinley DO Medication Refill 07/23/[address] [phone] Francisco Mckinley DO Medication Question; Patient Communication 07/22/[address] [phone] Francisco Mckinley DO Cellulitis of right lower extremity; Cellulitis of left lower extremity; Sepsis with acute liver failure without hepatic coma or septic shock, due to unspecified organism (CMS/HCC); History of hepatitis C; Uncomplicated opioid dependence; Chronic cholecystitis without calculus; RUQ abdominal pain 07/21/[address] [phone] Francisco Mckinley DO Pharmacy Change 07/17/[address] [phone] Francisco Mckinley DO Provider Call 07/16/2024 Orders Only [address] [phone] Ailyn Leon FNP COPD with exacerbation (CMS/HCC) (Primary Dx); Hepatic cirrhosis, unspecified hepatic cirrhosis type, unspecified whether ascites present (CMS/HCC); Pulmonary emphysema, unspecified emphysema type (CMS/HCC) 07/09/[address] [phone] Francisco Mckinley DO Cellulitis of right lower extremity; Cellulitis of left lower extremity; Sepsis with acute liver failure without hepatic coma or septic shock, due to unspecified organism (CMS/HCC); History of hepatitis C; Uncomplicated opioid dependence; Chronic cholecystitis without calculus; RUQ abdominal pain 07/09/[address] [phone] Francisco Mckinley DO 07/07/2024 2:00 PM CDT Video Visit [address] [phone] Ailyn Leon FNP Screening mammogram, encounter for (Primary Dx); COPD with exacerbation (CMS/HCC); Panlobular emphysema (CMS/HCC); Hepatic cirrhosis, unspecified hepatic cirrhosis type, unspecified whether ascites present (CMS/HCC); Essential hypertension; Symptomatic bradycardia 07/07/[address] [phone] Francisco Mckinley DO 07/01/[address] [phone] Francisco Mckinley DO Information 06/27/2024 11:00 AM CDT Video Visit [address] [phone] Francisco Mckinley DO Cellulitis of right lower extremity (Primary Dx); Cellulitis of left lower extremity; Uncomplicated opioid dependence; Chronic cholecystitis without calculus; RUQ abdominal pain; Seizure disorder; Panlobular emphysema (CMS/HCC); Type 2 diabetes mellitus with diabetic polyneuropathy, with long-term current use of insulin; Cirrhosis of liver without ascites, unspecified hepatic cirrhosis type (CMS/HCC); Lymphedema of both lower extremities 06/27/[address] [phone] Francisco Mckinley DO Morphine 60 mg PA 06/27/[address] [phone] Francisco Mckinley DO Information 06/24/2024 External Device Data STL ABSTRACTION Provider, Abstract 06/24/[address] [phone] Francisco Mckinley DO Cellulitis of right lower extremity; Cellulitis of left lower extremity; Sepsis with acute liver failure without hepatic coma or septic shock, due to unspecified organism (CMS/HCC); History of hepatitis C; Uncomplicated opioid dependence; Chronic cholecystitis without calculus; RUQ abdominal pain 06/23/[address] [phone] Francisco Mckinley DO Seizure disorder (Primary Dx) 06/23/[address] [phone] Francisco Mckinley DO Cellulitis of right lower extremity; Cellulitis of left lower extremity; Sepsis with acute liver failure without hepatic coma or septic shock, due to unspecified organism (CMS/HCC); History of hepatitis C; Uncomplicated opioid dependence; Chronic cholecystitis without calculus; RUQ abdominal pain 06/19/[facility] [address] [phone] Francisco Mckinley DO Lymphedema of both lower extremities 06/18/[address] [phone] Francisco Mckinley DO Question; Patient Communication 06/18/[address] [phone] Francisco Mckinley DO Panlobular emphysema (CMS/HCC) (Primary Dx); Cellulitis of right lower extremity; Cellulitis of left lower extremity; Sepsis with acute liver failure without hepatic coma or septic shock, due to unspecified organism (CMS/HCC); History of hepatitis C; Uncomplicated opioid dependence; Chronic cholecystitis without calculus; RUQ abdominal pain from Last 3 Months Immunizations Immunization Administration Dates Next Due (ADACEL/BOOSTRIX)(10 YR UP) TDAP VACCINE, 0.5ML, IM 09/26/2021 (HAVRIX/VAQTA)(19 YRS UP) HE PATITIS A VACCINE ADULT DOSAGE 1 ML IMM 04/10/2006 (PREVNAR 20)(6 WKS UP) PNEUM OCOCCAL CONJUGATE VACCINE 20-VALENT (PCV20), POLYSACCHARIDE CTR548 CONJUGATE, ADJUVANT 0.5 ML (PF) IM 12/19/2022 INFLUENZA VACCINE QUADRIVALE NT 6 MOS UP PF IM 12/19/2022,01/01/2019,06/07/2017 Family History Medical History Relation Name Comments Unknown Brother 1 Unknown Brother 2 Unknown Brother 3 Unknown Brother 4 Heart Disease Brother 5 of ID. Other Brother 6 of suicide . Unknown Brother 7 Unknown Brother 8 Heart Disease Father Chavo Rios of mas sive ID. Respiratory Disease Father Chavo Rios Has lung problems . Ovarian Cancer Mother P.c. Kumar Schizophrenia Mother P.c. Kumar Unknown Sister 1 Unknown Sister 2 Ovarian Cancer Sister 3 Martha Butler Ovaries cance r Unknown Sister 3 Martha Butler Unknown Sister 4 Unknown Sister 5 Breast Cancer Neg Hx Colon Cancer Neg Hx Relation Name Status Comments Brother 1 Alive Brother 2 Alive Brother 3 Alive Brother 4 Alive Brother 5 Brother 6 Brother 7 Alive Brother 8 Alive Father Chavo Rios Maternal Grandfather Maternal Grandmother Mother P.cEfraín Kumar Alive Paternal Grandfather Paternal Grandmother Sister 1 Alive Sister 2 Alive Sister 3 Martha Butler Alive Sister 4 Alive Sister 5 Alive Social History Tobacco Use Types Packs/Day Years Used Date Smoking Tobacco: Former Cigarettes Q uit: 03/28/2024 Passive Smoke Exposure: Never Smokeless Tobacco: Never Tobacco Cessation:Counseling Given: Not Answered Comments:Quit smokin-5cigarlettes daily Alcohol Use Standard Drinks/Week Comments Never [...] any time in the past 12 m [facility], were you homeless or living in a prison (including now)? Yes 02/01/2024 Feeling Safe Answer [...] on file Legal Sex Female 2:09 PM ELECTROMEDICAL EQUIPMENT TECHNICIAN Gender Identity Not on file Sexual Orientation Not on file Last Filed Vital Signs Vital Sign Reading Time Taken Comments Blood Pressure 123/79 05/21/2024 1:00 PM ELECTROMEDICAL EQUIPMENT TECHNICIAN Pulse 83 05/21/2024 1:00 PM ELECTROMEDICAL EQUIPMENT TECHNICIAN Temperature 36.6 C (97.9 F) 05/21/2024 1:00 PM ELECTROMEDICAL EQUIPMENT TECHNICIAN Respiratory Rate 18 05/21/2024 1:00 PM ELECTROMEDICAL EQUIPMENT TECHNICIAN Oxygen Saturation 96% 05/21/2024 1:00 PM ELECTROMEDICAL EQUIPMENT TECHNICIAN Inhaled Oxygen Concentration - - Weight 109.3 kg (241 lb) 07/07/2024 2:02 PM CDT Height 182.9 cm (6') 07/07/2024 2:02 PM CDT Body Mass Index 32.69 07/07/2024 2:02 PM CDT Plan of Treatment Upcoming Encounters Date Type Department Care Team (Late st Contact Info) Description 01/26/2025 8:40 AM ELECTROMEDICAL EQUIPMENT TECHNICIAN Office Visit [facility]- [place] [address] [place] [address] Robert Estrada MD [address] [place] [address] Health Maintenance Due Date Last Done Comments UPPER GI ENDOSCOPY 1992 HEPATITIS B VACCINES (1 of 3 - 19+ 3-dose series) 1993 FIT-DNA Q 3 years 09/10/2019 FIT/FOBT Q 1 year 09/10/2019 Flex Sig/CT Colonography Q 5 years 09/10/2019 BREAST CANCER SCREENING 04/29/2020 04/29/2019, 04/29 DIABETES ANNUAL RETINAL EXAM 07/31/2023 07/30/2022 DIABETES ANNUAL FOOT EXAM 12/20/2023 12/19/2022, 02/2022 Preventative Visit-Managed Medicaid 12/21/2023 12/19/2022 DIABETES HBA1C Q 6 MONTHS 04/24/20242023, 04/26/2023, 12/14/2020, Additional history exists LDL CHOLESTEROL ANNUAL 04/26/2024 , 10/25/2020, 12/10/2019 ZOSTER VACCINE (1 of 2) 2024 DIABETES: A1C (Auto Order) 10/22/202410/22, 04/26/2023, 12/14/2020, Additional history exists DIABETES MICROALBUMIN ANNUAL SCREEN 04/03/2025 04/03/2024, 09/27/2023, 04/26/2023, Additional history exists COLORECTAL SCREENING 10/04/2027 10/03/2022, 10/03/2022, 01/08/2019, Additional history exists Colorectal Cancer Screening 10/04/2027 DTAP/TDAP/TD VACCINES (2 - T d or Tdap) 09/27/2031 09/26/2021 INFLUENZA VACCINE Completed 12/27/2023, , 05/01/2022, Additional history exists Medical Devices Implanted Type Area Paste Up Artist Apprentice Device Identifier Shelf Expiration Date Model / Serial / Lot Medtronic Ra Lead 5076-52-05/10/19 23 Implanted:05/10 (Quantity not on file) Lead [employer] 5076-52 / [id number] / Medtronic Rv Lead 5076-58-05/10/19 23 Implanted:05/10 (Quantity not on file) Lead [employer] 5076-58 / [id number] / Medtronic Pacemaker [id number]/22/202 3 Implanted:05/10 (Quantity not on file) Pacemaker [employer] [id number] / [id number] / Description:Dr. Wyman skippers [phone] Procedures Procedure Name Priority Date/Time Associated Diagnosis Comments POTASSIUM LEVEL Routine 09/01/2024 10:53 AM CDT Fluid retention MICROALBUMIN/CREATIN INE RATIO, RANDOM UR Routine 04/03/2024 1:11 PM ELECTROMEDICAL EQUIPMENT TECHNICIAN Type 2 diabetes mellitus with diabetic polyneuropathy, with long-term current use of insulin (CMS/HCC) HEMOGLOBIN A1C Routine 10/23/2023 LIPID PANEL Routine 04/26/2023 11:05 AM ELECTROMEDICAL EQUIPMENT TECHNICIAN Cirrhosis of liver without ascites, unspecified hepatic cirrhosis type (CMS/HCC) COLONOSCOPY REPORT 10/03/2022 3: 34 PM CDT HM DIABETES EYE EXAM Routine 07/30/2022 10:18 AM CDT MAMMO SCREEN BILAT W OR WO CAD Routine 04/29/2019 12:45 PM ELECTROMEDICAL EQUIPMENT TECHNICIAN Visit for screening mammogram from Last 3 Months or Most Recently Relevant to Health Maintenance Results * POTASSIUM LEVEL (09/01/2024 10:53 AM CDT) POTASSIUM 3.7 3.5 - 5.3 mmol/L [facility] Comment: Test Performed at: [email or web address] [id number] [facility] [place] [address] Mckinley Urbano MD Blood 09/01/2024 10:5 3 AM CDT 09/01/2024 10:54 AM CDT [facility] CHEMISTRY ORDERABLES Final Re sult Performing Organization Address [facility]/ZIP Co de Phone Number [facility] [phone] [facility] [address] * MICROALBUMIN/CREATININE RATIO, RANDOM UR (04/03/2024 1:11 PM ELECTROMEDICAL EQUIPMENT TECHNICIAN) Creatinine, Urine 222 20 - 275 mg/dL [facility] MICROALBUMIN, URINE 0.7 See Note: mg/dL [facility] Comment: Reference Range: Reference Range Not established MICROALBUMIN/CREAT RATIO, UR 3 <30 mg/g creat [facility] Comment: The ADA defines abnormalities in albumin excretion as follows: Albuminuria Category Result (mg/g creatinine) Normal to Mildly increased <30 Moderately increased 30-299 Severely increased > OR = 300 The ADA recommends that at least two of three specimens collected within a 3-6 month period be abnormal before considering a patient to be within a diagnostic category. Test Performed at: [facility] [id number] [place] [address] Mckinley Urbano MD Urine URINE SPECIMEN OBTAINED BY CLEAN CATCH PROCEDURE / Unknown 04/03/2024 1:11 PM ELECTROMEDICAL EQUIPMENT TECHNICIAN 04/04/2024 2:48 AM ELECTROMEDICAL EQUIPMENT TECHNICIAN Francisco Mckinley DO URINE ORDERABLES Final Result Performing Organization Address [facility]/ZIP Co de Phone Number [facility] [phone] [facility] [address] * HEMOGLOBIN A1C (10/23/2023) Pathologist [facility] ABSTRACTED HGB A1C 5.2 % Blood 10/23/2023 us Abstract Provider CHEMISTRY ORDERABLES Final Res ult * (ABNORMAL) LIPID PANEL (04/26/2023 11:05 AM ELECTROMEDICAL EQUIPMENT TECHNICIAN) CHOLESTEROL 249(H) <200 mg/dL [facility] HDL 82 > OR = 50 mg/dL [facility] TRIGLYCERIDE 130 <150 mg/dL [facility] LDL CALCULATED 142(H) mg/dL (calc) [facility] Comment: Reference range: <100 Desirable range <100 mg/dL for primary prevention; <70 mg/dL for patients with CHD or diabetic patients with > or = 2 CHD risk factors. LDL-C is now calculated using the Marva calculation, which is a validated novel method providing better accuracy than the Friedewald equation in the estimation of LDL-C. Collins PATEL et al. FITZ. 2013;310(19): 8171-0035 (http://education.GrownOut/faq/OUL312) CHOL/HDL RATIO 3.0 <5.0 (calc) [facility] TOTAL NON-HDL CHOL(LDL+VLDL) 167(H) <130 mg/dL (calc) [facility] Comment: For patients with diabetes plus 1 major ASCVD risk factor, treating to a non-HDL-C goal of <100 mg/dL (LDL-C of <70 mg/dL) is considered a therapeutic option. Test Performed at: [facility] [id number] [place] [address] Mckinley Urbano MD Blood 04/26/2023 11:0 5 AM ELECTROMEDICAL EQUIPMENT TECHNICIAN 04/27/2023 3:10 AM ELECTROMEDICAL EQUIPMENT TECHNICIAN us Francisco Mckinley DO CHEMISTRY ORDERABLES Final Re sult [facility] [phone] [facility] [id number] [address] [place] [address] * COLONOSCOPY REPORT (10/03/2022 3:34 PM CDT) Narrative Procedure Note Robert Estrada MD - 10/03/2022 3:34 PM CDT [facility] GI Patient Name: Maribell Foreman Procedure Date: 10/03/2022 Date of : 1975 Admit Type: Outpatient Age: 47 Attending MD: Robert Estrada MD, Procedure: Colonoscopy Indications: Screening for colorectal malignant neoplasm, hx ischemic colitis Providers: Robert Estrada MD Referring MD: Francisco Mckinley Medicines: Monitored Anesthesia Care Complications: No immediate complications. Procedure: Pre-Anesthesia Assessment: - The risks and benefits of the procedure and the sedation options and risks were discussed with the patient. All questions were answered and informed consent was obtained. After I obtained informed consent, the scope was passed under direct vision. Throughout the procedure, the patient's blood pressure, pulse, and oxygen saturations were monitored continuously. The Colonoscope was introduced through the anus and advanced to the ileocolonic anastomosis. Estimated Blood Loss: Estimated blood loss was minimal. Findings: Non-bleeding internal hemorrhoids were found. The hemorrhoids were Grade I (internal hemorrhoids that do not prolapse). A few small-mouthed diverticula were found in the sigmoid colon. A 4 mm polyp was found in the rectum. The polyp was sessile. The polyp was removed with a cold snare. Resection and retrieval were complete. The terminal ileum appeared normal. The exam was otherwise normal throughout the examined colon. Impression: - Non-bleeding internal hemorrhoids. - Diverticulosis in the sigmoid colon. - One 4 mm polyp in the rectum, removed with a cold snare. Resected and retrieved. - The examined portion of the ileum was normal. - Otherwise unremarkable colon mucosa Recommendation: - Await pathology results. - if polyp adenomatous repeat in 5 years, otherwise repeat in 10 years Robert Estrada MD 10/03/2022 3:34:29 PM Number of Addenda: 0 Note Initiated On: 10/03/2022 2:06 PM Scope Withdrawal Time 0 hours 9 minutes 3 seconds Scope In: 3:18:03 PM Scope Out: 3:32:23 PM [address] [place], [place] Robert Estrada MD GI PROCEDURE ORDERABLES F inal Result * HM DIABETES EYE EXAM (07/30/2022 10:18 AM CDT) Abstract Provider HEALTH MAINTENANCE Final Resul t * MAMMO SCREEN BILAT W OR WO CAD (04/29/2019 12:45 PM ELECTROMEDICAL EQUIPMENT TECHNICIAN) Anatomical Region Laterality Modality Breast Bilateral Other Narrative 04/30/2019 7:17 PM ELECTROMEDICAL EQUIPMENT TECHNICIAN Bilateral Mammogram Reason for Exam: Screening Comparison: No comparisons were made when reading this study. Findings: Bilateral CC and MLO views were obtained. This examination was reviewed with the aid of a computer-aided detection system(CAD). Breast Composition: There are scattered areas of fibroglandular density. There are no suspicious masses, areas of architectural distortions, or microcalcifications to suggest malignancy. Impression: Negative screening mammogram. Recommendation: Routine annual follow-up Overall Assessment: Birads Category 1: Negative Procedure Note Kenneth Mcdowell MD - 08/06/2020 Bilateral Mammogram Reason for Exam: Screening Comparison: No comparisons were made when reading this study. Findings: Bilateral CC and MLO views were obtained. This examination was reviewed with the aid of a computer-aided detection system(CAD). Breast Composition: There are scattered areas of fibroglandular density. There are no suspicious masses, areas of architectural distortions, or microcalcifications to suggest malignancy. Impression: Negative screening mammogram. Recommendation: Routine annual follow-up Overall Assessment: Birads Category 1: Negative Colette Delacruz DO MAMMO ORDERABLES Final Resu lt from Last 3 Months or Most Recently Relevant to Health Maintenance Insurance [address] [place] [address] [place]ICA[place] RX INFOCROSSING Medicaid RX [place] PLANS (INTERNAL) [facility] Internal Plans Advance Directives For more information, please contact: [phone] Documents on File Type Date Recorded Patient Playground Supervisor Expl anation Patient Life Sustaining Treatment Doc 07/31/2024 10:50 AM OHDNR Order * Full Code (Latest Code Status on File) Date Activated Date Inactivated Comments 05/18/2024 3:06 PM 05/21/2024 4:34 PM * Full Code Date Activated Date Inactivated Comments 03/27/2022 10:19 PM 04/03/2022 10:07 PM * Full Code Date Activated Date Inactivated Comments 03/29/2021 7:03 AM 03/29/2021 10:40 AM Care Teams Licensed Insurance Sales Agent Relationship Specialty Start Date End Date Francisco Mckinley DO [address] [place] [address] PCP - General 06/07/20
--- OUTSIDE RECORDS SUMMARY | 2024-09-13 13:49 | XMS_ITS | Encounter Summary ---
Author Organization [facility] Address [address] [place] [address] Care Team Providers Care Associate Publisher Name Role Phone Francisco Mckinley DO Primary Care Provider Reason for Visit * Reason Comments Provider Call Encounter Details Date Type Department Care Team (Late st Contact Info) Description 2024 Telephone [facility] Medicine [place] [address] [phone] Francisco Mckinley DO [address] [place] [phone] Provider Call Social History Tobacco Use Types Packs/Day Years [...] any time in the past 12 m [facility], were you homeless or living in a alf (including now)? Yes 02/01/2024 Feeling Safe Answer [...] on file Legal Sex Female 2:09 PM OFFICE SPEC Gender Identity Not on file Sexual Orientation Not on file documented as of this encounter Miscellaneous Notes * Telephone Encounter - Enedina Zamora - 09/10/2024 10:12 AM CDT Results faxed to hospice. * Telephone Encounter - Shelly Neal - 2024 8:45 AM CDT Copied from [facility] #[id number]. Topic: [facility] Call >> 2024 8:40 AM Shelly Pedraza wrote: Caller is requesting to speak with Clinical Care Team. Caller Name: [facility] Callback Number: [phone] Clinician Type: Hospice Call Notes: A week ago the provider had patient completed the potassium test and are wanting the results. They are requesting the results to be faxed so that they can take these to the patient, fax#[phone] Is this addressing an immediate patient care need? No documented in this encounter Plan of Treatment Upcoming Encounters Date Type Department Care Team (Late st Contact Info) Description 01/26/2025 8:40 AM OFFICE SPEC [facility] [address] [address] Robert Estrada MD 2114 [facility] [address] [place] [address] documented as of this encounter Visit Diagnoses Not on filedocumented in this encounter Care Teams Associate Publisher Relationship Specialty Start Date End Date Francisco Mckinley DO [address] [address] PCP - General 06/07/20 documented as of this encounter
--- OUTSIDE RECORDS SUMMARY | 2024-09-13 13:49 | XMS_ITS | Encounter Summary ---
Author Organization [facility] Address [address] [place] [address] Care Team Providers Care Reeling Machine Setup Operator Name Role Phone Francisco Mckinley DO Primary Care Provider Reason for Visit * Reason Comments Med Refill Encounter Details Date Type Department Care Team (Late st Contact Info) Description 09/13/2024 Refill [facility] Medicine [place] [address] [phone] Francisco Mckinley DO [address] [place] [phone] Uncomplicated opioid dependence; Hospice care patient; Other chronic pancreatitis Social History Tobacco Use Types Packs/Day Years [...] any time in the past [address] [facility], were you homeless or living in a halfway (including now)? Yes 02/01/2024 Feeling Safe Answer [...] on file Legal Sex Female 2:09 PM ROTARY DRILL OPERATOR Gender Identity Not on file Sexual Orientation Not on file documented as of this encounter Plan of Treatment Upcoming Encounters Date Type Department Care Team (Late st Contact Info) Description 01/26/2025 8:40 AM ROTARY DRILL OPERATOR [facility] [address] [facility] [address] [place] [address] Robert Estrada MD [address] [place] [address] documented as of this encounter Visit Diagnoses Diagnosis Uncomplicated opioid dependence Opioid type dependence, unspecified Hospice care patient Encounter for palliative care Other chronic pancreatitis documented in this encounter Care Teams Reeling Machine Setup Operator Relationship Specialty Start Date End Date Francisco Mckinley DO [address] [address] PCP - General 06/07/20 documented as of this encounter
--- OUTSIDE RECORDS SUMMARY | 2024-09-13 13:49 | XMS_ITS | Encounter Summary ---
Author Organization [facility] Address [address] [place] [address] Care Team Providers Care Tree Planter Name Role Phone Francisco Mckinley DO Primary Care Provider [phone] Reason for Visit * Reason Comments Information Encounter Details Date Type Department Care Team (Late st Contact Info) Description 07/01/2024 Telephone [facility] Medicine [address] [phone] Francisco Mckinley DO [address] [place] [phone] Information Social History Tobacco Use Types Packs/Day Years Used Date Smoking Tobacco: Every Day Cigarettes Passive Smoke Exposure: Never Smokeless Tobacco: Never [...] any time in the past 12 m [facility], were you homeless or living in a halfway (including now)? Yes 02/01/2024 Feeling Safe Answer Date Recorded Are you in a relationship wi th someone who hurts you emotionally and/or physically? No 05/18/2024 Food Insecurity Answer Date Recorded Social/Environmental Concerns No concerns Transportation Needs Answer Date Record ed Social/Environmental Concerns No concerns Housing Stability Answer Date Recorded Social/Environmental Concerns No concerns Utility Needs Answer Date Recorded Social/Environmental Concerns No concerns Comments No Sex and Gender Information Value Date Recorded Sex Assigned at Not on file Legal Sex Female 2:09 PM PROJECT CONSTRUCTION MANAGER Gender Identity Not on file Sexual Orientation Not on file documented as of this encounter Miscellaneous Notes * Telephone Encounter - Martina Fletcher LPN - 07/01/2024 11:52 AM CDT 07/01/2024 11:52 AM Returned call and spoke with patient. Discussed she has had a couple of more areas come up on her right thigh and the back of left knee. She states she is still taking ABT and keeping areas clean anddry. Patient states the pain medication she was put on does not last for 8 hours. She states she isstill in pain. Martina CASANOVA * Telephone Encounter - Eva Flaherty - 07/01/2024 11:50 AM CDT Copied from [facility] #[id number]. Topic: Patient or Caregiver Communication Request >> Jul 01, 2024 11:47 AM Eva Gloria wrote: Patient or Caregiver calling to update Care team on status after a recent visit Caller: Maribell Foreman Patient/Caregiver Callback Number: [phone] Call Notes: patient is not feeling any better and has a few more spots that have popped up on leg documented in this encounter Plan of Treatment Upcoming Encounters Date Type Department Care Team (Late st Contact Info) Description 01/26/2025 8:40 AM PROJECT CONSTRUCTION MANAGER [facility] 2114 [facility] [address] [place] [address] Robert Estrada MD 2114 [facility] [address] [place] [address] documented as of this encounter Visit Diagnoses Not on filedocumented in this encounter Care Teams Tree Planter Relationship Specialty Start Date End Date Francisco Mckinley DO [address] [address] PCP - General 06/07/20 documented as of this encounter
--- OUTSIDE RECORDS SUMMARY | 2024-09-13 13:49 | XMS_ITS | Encounter Summary ---
Author Organization [facility] Address [address] [place] [address] Care Team Providers Care Steel Detailer Name Role Phone Francisco Mckinley DO Primary Care Provider Encounter Details Date Type Department Care Team (Late st Contact Info) Description 04/04/2024 Results Follow-Up [facility] [address] [place] [address] Meliton Mckinley MD [address] [place] [address] POC URINALYSIS DIPSTICK AUTOMATED Social History Tobacco Use Types Packs/Day Years [...] time in the past 12 m [facility], were you homeless or living in a skilled nursing (including now)? Yes 02/01/2024 Feeling Safe Answer Date Recorded Are you in a relationship wi th someone who hurts you emotionally and/or physically? No 10/03/2022 Comments No Sex and Gender Information Value Date Recorded Sex Assigned at Not on file Legal Sex Female 2:09 PM PEOPLESOFT HRMS DEVELOPER Gender Identity Not on file Sexual Orientation Not on file documented as of this encounter Plan of Treatment Upcoming Encounters Date Type Department Care Team (Late st Contact Info) Description 01/26/2025 8:40 AM PEOPLESOFT HRMS DEVELOPER [facility] [address] [facility] [address] [place] [address] Robert Estrada MD [address] [facility] [address] [place] [phone] documented as of this encounter Visit Diagnoses Not on filedocumented in this encounter Additional Health Concerns Assessment Noted Time PHQ-9 Depression Total Score: 3 04/03/19 25 12:00 PM PEOPLESOFT HRMS DEVELOPER documented as of this encounter Care Teams Steel Detailer Relationship Specialty Start Date End Date Francisco Mckinley DO [address] [place] [phone] PCP - General 06/07/20 documented as of this encounter
[2024-09-13 13:53] VITALS: BP 169/79; PULSE 109; RESP 18; TEMP 37; O2SAT 97; BMI 38.2
--- NOTE | 2024-09-13 14:00 | XRR_ITS ---
PROCEDURE INFORMATION: Exam: XR Right Knee Exam date and time: 09/13/2024 2:15 PM Age: 49 years old Clinical indication: Right; RT knee pain/swelling; Fluid retention TECHNIQUE: Imaging protocol: Radiologic exam of the right knee. Views: 3 views. COMPARISON: CR XR foot RT min 3V* [id number] 09/22/2022 7:10 PM FINDINGS: Bones/joints: There is suggestion of a suprapatellar joint effusion. No fractures or dislocations. Mild patellofemoral and femorotibial osteoarthrosis. Soft tissues: Normal. XR/XR knee RT 3V* [id number] IMPRESSION: No acute bony findings. Suggestion of a suprapatellar joint effusion.
--- NOTE | 2024-09-13 14:42 | W.ED.EXTPRO ---
HPI - Extremity Problem General: Chief complaint: Extremity Injury, Lower Stated complaint: rt knee inj Time Seen by Provider: 09/13/24 14:11 Source: patient Mode of arrival: ambulatory Limitations: no limitations History of Present Illness: Patient is a 49-year-old female who presents the emergency department planing of right knee pain since last night. She states that she was walking when she suddenly hyper extended her right knee, then subsequently twisted which has caused her pain since. Notes the pain is stabbing, 12/26 though she was initially amatory this morning, been able to ambulate due to the pain. Chronically she is on 4 L of oxygen, multiple comorbid conditions. No distal neurovascular symptoms reported. She takes morphine at home for chronic pain, she took this this morning at 06 100 with no relief. Requesting something for pain at this time. MD Complaint: joint pain Onset (ago): hour(s) Pain Consistency: constant Location: right and knee Severity scale (1-10): 10 Quality: stabbing Radiation: none Exacerbating factors: weight bearing Associated symptoms: Deny chest pain, fever(s) or rash Related Data Home Medications ?Medication ?Instructions ?Recorded ?Confirmed insulin glargine 100 unit/mL See Rx Instructions .Route .COMPLEX 11/23/22 05/02/24 subcutaneous solution (Lantus U-100 Insulin) Held on 08/19/23. Instructions: Resume on 08/26/23. hold till PCP follow up scopolamine base 1 mg over 3 days 1 patch topical Q3D 04/27/23 05/02/24 transdermal patch tenofovir disoproxil fumarate 300 300 mg PO DAILY 04/27/23 05/02/24 mg tablet zinc sulfate 50 mg zinc (220 mg) 50 mg PO DAILY 08/15/23 05/02/24 capsule albuterol sulfate 90 mcg/actuation 2 puff inhalation Q6H PRN 10/19/23 05/02/24 aerosol inhaler (Ventolin HFA) Shortness Of Breath amitriptyline 75 mg tablet 75 mg PO BEDTIME 10/19/23 05/02/24 doxepin 10 mg capsule 10 mg PO BEDTIME PRN Sleep 10/19/23 05/02/24 furosemide 40 mg tablet See Rx Instructions .Route .COMPLEX 10/19/23 05/02/24 levalbuterol tartrate 45 2 inh inhalation Q6H PRN Shortness 10/19/23 05/02/24 mcg/actuation aerosol inhaler Of Breath (Xopenex HFA) rimegepant 75 mg disintegrating 75 mg PO DAILY PRN Migraine 10/19/23 05/02/24 tablet (Nurtec ODT) Headache cholecalciferol (vitamin D3) 1,250 50,000 unit PO Q7D 01/17/24 05/02/24 mcg (50,000 unit) capsule gabapentin 300 mg capsule 600 mg PO BID 01/17/24 05/02/24 metoclopramide HCl 5 mg tablet 5 mg PO QID PRN nausea/emesis 01/17/24 05/02/24 rifaximin 550 mg tablet (Xifaxan) 550 mg PO BID 01/17/24 05/02/24 Previous Rx's ?Medication ?Instructions ?Recorded lactulose 10 gram/15 mL oral 90 ml PO TID 30 days #8,100 mL 08/19/23 solution levetiracetam 750 mg tablet 750 mg PO BID 30 days #60 tabs 08/19/23 levothyroxine 50 mcg tablet 50 mcg PO QAM 30 days #30 tabs 08/19/23 [id number] 1 cap PO TID 30 days #30 caps 08/19/23 3,000-9,500-15,000 unit capsule, delayed rel (Creon) nifedipine 30 mg tablet,extended 30 mg PO DAILY 30 days #30 tabs 08/19/23 release 24 hr oxycodone 30 mg tablet 30 mg PO Q4H PRN Pain 2 days #12 08/19/23 tabs pantoprazole 40 mg tablet,delayed 40 mg PO BID #60 tabs 08/19/23 release potassium chloride 20 mEq 20 meq PO DAILY 15 days #15 tabs 08/19/23 tablet,extended release spironolactone 25 mg tablet 25 mg PO BID 30 days #30 tabs 08/19/23 sumatriptan succinate 50 mg tablet See Rx Instructions .Route 08/19/23 .COMPLEX 10 days #10 tabs tizanidine 4 mg tablet 4 mg PO Q6H PRN Spasms 10 days #30 08/19/23 tabs umeclidinium 62.5 mcg-vilanterol 1 inh inhalation DAILY 30 days #30 08/19/23 25 mcg/actuation powdr for ea inhalation (Anoro Ellipta) ciprofloxacin HCl 500 mg tablet 500 mg PO BID #14 tabs 01/17/24 (Cipro) promethazine 25 mg tablet 25 mg PO TID PRN nausea and 01/17/24 vomiting #14 tabs Allergies Allergy/AdvReac Type Severity Reaction Status Date / Time codeine Allergy Unknown Unknown Verified 05/02/24 11:38 aspirin Allergy ALGY-Hives Verified 05/02/24 11:38 diphenhydramine (From Allergy ADR-Muscle Verified 05/02/24 11:38 Benadryl) Pain Sulfa (Sulfonamide Allergy ALGY-Swell Verified 05/02/24 11:38 Antibiotics) Lip/Tongue/Throat Review of Systems General: Reports: 10 or more systems reviewed and unremarkable except in HPI and below Const: Denies: fever(s) or chills Card: Denies: chest pain Resp: Denies: dyspnea or productive cough GI: Denies: abdominal pain, nausea, vomiting or diarrhea : Denies: flank pain Musc: Reports: joint pain (rt knee), joint swelling (rt knee) and limited range of motion (rt knee); Denies: neck pain, back pain, extremity pain, extremity swelling, joint redness, joint warmth or muscle weakness Skin/Breast: Denies: rash Neuro: Denies: headache(s), numbness in extremities or weakness in extremities PFSH ED PFSH: Medical History Hypokalemia 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 Pain management contract signed Metabolic encephalopathy SSS (sick sinus syndrome) Presence of permanent cardiac pacemaker Seizure disorder Tobacco dependency Hypothyroidism Accidental fentanyl overdose Overdose Cardiac arrest COPD (chronic obstructive pulmonary disease) Chronically on 3 L of oxygen Smoker Thrombocytopenia Bilateral pulmonary embolism Hepatitis B Pulmonary embolism Nicotine dependence, cigarettes, with unspecified nicotine-induced disorders Chronic hepatitis B Chronic abdominal pain Chronic hip pain Leg cramps Stomach cancer Pelvic inflammatory disease Diabetes mellitus Hypertension Encephalopathy Cirrhosis Gastroesophageal reflux GI bleeding Surgical History H/O right hemicolectomy History of right hemicolectomy H/O tubal ligation History of laparotomy History of hysterectomy Family History Mother Diabetes Father CAD (coronary artery disease) Other Cancer Social History Smoking and tobacco/nicotine status: former use of tobacco/nicotine (quit 2022) Quit status (tobacco/nicotine): has quit using Year quit tobacco: 2020 Former quit date comment: 2ppd x 26 year Hx Alcohol intake: never Substance/Drug Use: never Physical Exam Const: COMMON NORMALS: no acute distress, patient oriented x3, no limitations, healthy appearing, alert and well nourished HENMT: COMMON NORMALS: normocephalic and atraumatic HEAD & SCALP: normocephalic and atraumatic Neck/C-Spine: COMMON NORMALS: full ROM, supple and no meningeal signs Resp: COMMON NORMALS: normal respiratory effort, No use of accessory muscles and clear to auscultation bilaterally AUSCULTATION: clear to auscultation bilaterally Cardio: COMMON NORMALS: regular rate and regular rhythm RATE: regular rate RHYTHM: regular rhythm Extremity: NARRATIVE EXTREMITY EXAM: Moderate amount of swelling to the right knee, joint effusion is appreciated at this time. Diffusely tender to palpation, there is no overlying erythema or warmth to the joint. Questionable joint laxity with valgus stress testing, though this is probably unreliable secondary to her body habitus. Neuro: COMMON NORMALS: patient oriented x3, moves all extremities, no focal motor deficits and no sensory deficits noted SENSORIUM/ORIENTATION: Yes alert MENINGEAL SIGNS: Yes no meningeal signs Skin: COMMON NORMALS: no rashes or lesions noted GENERAL SKIN EXAM: no rashes or lesions noted Course Vital Signs: Vital signs: Vital Signs Temperature 98.6 F 09/13/24 13:53 Pulse Rate 109 H 09/13/24 13:53 Respiratory Rate 18 09/13/24 13:53 Blood Pressure 169/79 09/13/24 13:53 Pulse Oximetry 97 09/13/24 13:53 Oxygen Delivery Me thod Room Air 09/13/24 13:53 MDM - Extremity (Nontraumatic) Medical Decision Making Patient presenting after a right knee injury occurred last night. On exam diffusely swollen to the right knee, questionable joint laxity however there was appreciable joint effusion and I do suspect some sort of ligamentous injury. No warmth to the joint or concerns for an infected joint and I do suspect that this is a traumatic injury with the reported twisting mechanism. The x-ray only showing confirmation of suprapatellar joint effusion, and with this in mind we will put her in the immobilizer and provide crutches for nonweightbearing. She will be referred to orthopedics for further evaluation, and instructed to return to the ED if she does notice that there is any warmth, feverishness, or other concerns for infection. She already takes pain medication at home, given 1 dose of Dilaudid here. Lab Data Radiology Impressions Knee X-Ray 09/13/24 14:00 IMPRESSION: No acute bony findings. Suggestion of a suprapatellar joint effusion. All radiology interpretation(s) finalized by discharge Discharge Plan Discharge Patient Disposition: Home Clinical Impression: Right knee sprain Qualifiers: Encounter type: initial encounter Involved ligament of knee: unspecified ligament Qualified Code(s): S83.91XA - Sprain of unspecified site of right knee, initial encounter Effusion of knee Qualifiers: Laterality: right Qualified Code(s): M25.461 - Effusion, right knee Condition: Stable Prescriptions: No Action zinc sulfate 50 mg zinc (220 mg) capsule 50 mg PO DAILY amitriptyline 75 mg tablet 75 mg PO BEDTIME furosemide 40 mg tablet See Rx Instructions .ROUTE .COMPLEX Rx Instructions: TAKE 2 TABLETS BY MOUTH EVERY MORNING AND ONE EVERY DAY AFTER LUNCH doxepin 10 mg capsule 10 mg PO BEDTIME PRN (Reason: Sleep) albuterol sulfate [Ventolin HFA] 90 mcg/actuation HFA aerosol inhaler 2 puff INHALATION Q6H PRN (Reason: Shortness Of Breath) Nurtec ODT 75 mg tablet,disintegrating 75 mg PO DAILY PRN (Reason: Migraine Headache) levalbuterol tartrate [Xopenex HFA] 45 mcg/actuation HFA aerosol inhaler 2 inh inhalation Q6H PRN (Reason: Shortness Of Breath) insulin glargine [Lantus U-100 Insulin] 100 unit/mL solution See Rx Instructions .ROUTE .COMPLEX Rx Instructions: INJECT 10 UNITS IN THE MORNING AND 40 UNITS IN THE EVENING. scopolamine base 1 mg over 3 days patch 3 day 1 patch topical Q3D tenofovir disoproxil fumarate 300 mg tablet 300 mg PO DAILY nifedipine 30 mg tablet extended release 24hr 30 mg PO DAILY 30 Days Qty: 30 0RF tizanidine 4 mg tablet 4 mg PO Q6H PRN (Reason: Spasms) 10 Days Qty: 30 0RF sumatriptan succinate 50 mg tablet See Rx Instructions .ROUTE .COMPLEX 10 Days Qty: 10 0RF Rx Instructions: TAKE 1 TABLET BY MOUTH FOR MIGRAINE. MAY REPEAT IN TWO HOURS, MAX OF 200MG IN 24 HOURS spironolactone 25 mg tablet 25 mg PO BID 30 Days Qty: 30 0RF levothyroxine 50 mcg tablet 50 mcg PO QAM 30 Days Qty: 30 2RF pantoprazole 40 mg tablet,delayed release (DR/EC) 40 mg PO BID Qty: 60 0RF levetiracetam 750 mg tablet 750 mg PO BID 30 Days Qty: 60 0RF oxycodone 30 mg tablet 30 mg PO Q4H PRN (Reason: Pain) 2 Days Qty: 12 0RF lactulose 10 gram/15 mL solution 90 ml PO TID 30 Days Qty: 8100 0RF Creon 3,000-9,500- 15,000 unit capsule,delayed release(DR/EC) 1 cap PO TID 30 Days Qty: 30 0RF Anoro Ellipta 62.5-25 mcg/actuation blister with device 1 inh INHALATION DAILY 30 Days Qty: 30 0RF potassium chloride 20 mEq tablet extended release 20 meq PO DAILY 15 Days Qty: 15 0RF metoclopramide HCl 5 mg tablet 5 mg PO QID PRN (Reason: nausea/emesis) cholecalciferol (vitamin D3) 1,250 mcg (50,000 unit) capsule 50,000 unit PO Q7D Xifaxan 550 mg tablet 550 mg PO BID gabapentin 300 mg capsule 600 mg PO BID promethazine 25 mg tablet 25 mg PO TID PRN (Reason: nausea and vomiting) Qty: 14 0RF ciprofloxacin HCl [Cipro] 500 mg tablet 500 mg PO BID Qty: 14 0RF Discharge Orders: Discharge ED (Routine); Ordered 09/13/24 Ordered By: Meliton Encarnacion Referrals: Francisco Mckinley DO [Primary Care Provider] Patient Instructions: Opioid Safety, Pain Management, Patient Portal & Marcelino Instructions Activity Restrictions/Additional Instructions: Knee Sprain Discharge Instructions Diagnosis: Right knee sprain with suprapatellar soft tissue swelling; suspicion for ligamentous injury. Discharge Instructions: - Immobilization and Mobility: The knee has been placed in an immobilizer to protect against further injury. The patient is to remain non-weightbearing on the affected limb and use crutches for ambulation until further evaluation. This approach is supported for acute traumatic knee injuries with suspected ligamentous involvement, especially when instability is a concern. - Pain Management: Continue home pain medications as previously prescribed. [id number] analgesics such as NSAIDs may be used as tolerated, unless contraindicated. - Follow-Up and Imaging: There is suspicion for significant ligamentous injury. The patient requires orthopedic follow-up for further assessment, including likely MRI to evaluate for internal derangement. The [employer] recommends advanced imaging when significant ligamentous injury is suspected and plain radiographs are inconclusive. - Activity Restrictions: Avoid any activities that place stress on the injured knee, including walking without crutches, running, jumping, or twisting movements. Do not remove the immobilizer unless instructed by a healthcare provider. - Monitoring: Monitor for increased pain, swelling, numbness, tingling, or changes in skin color of the affected limb. Seek immediate care if any of these symptoms develop, as they may indicate neurovascular compromise. - Rehabilitation: Early range of motion and strengthening exercises are not recommended until cleared by orthopedics. The [employer] advises that therapeutic exercises should be initiated only after the acute phase and under specialist guidance. - Return Precautions: Return to the emergency department if there is worsening pain, inability to move the toes, loss of sensation, or signs of infection (fever, redness, drainage). Summary: The patient has a right knee sprain with suspicion for ligamentous injury. The knee is immobilized, non-weightbearing status is maintained, and orthopedic follow-up with MRI is required for definitive diagnosis and management. Pain control and monitoring for complications are emphasized. Print Language: Turkish Coding Level of Care Code ED Alarm Mechanic for 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
[2024-09-13] MEDS: HYDROmorphone tab 2 MG TABLET PO (16:27)
--- NOTE | 2024-09-15 07:30 | DCPLANNER ---
messaged ortho for er f/u
== END 2024-09-13 16:56 | disposition home or self-care (01) ==
PROVIDERS: Emergency Provider Physician Assistant; PCP Family Medicine
DX: S83.91XA Sprain of unspecified site of right knee, initial encounter (principal); M25.461 Effusion, right knee; Z79.4 Long term (current) use of insulin; Z87.891 Personal history of nicotine dependence; J44.9 Chronic obstructive pulmonary disease, unspecified; X58.XXXA Exposure to other specified factors, initial encounter; E11.9 Type 2 diabetes mellitus without complications; I10 Essential (primary) hypertension
CPT/HCPCS: 29530; 73562; 99283; E0114; J9999; L1830

== ENCOUNTER → 2024-09-18 08:00 | Outpatient (BNVA) | payer MEDICAID, SELFPAY | PROVIDERS: PCP Family Medicine; Visit Provider Student in an Organized Health Care Education/Training Program | DX: K74.60 Unspecified cirrhosis of liver (principal) | CPT/HCPCS: 99204 ==

== ENCOUNTER 2024-09-23 11:38 | Inpatient (IN) | payer MEDICAID, SELFPAY ==
[2024-09-23] VITALS (16 sets, daily range): BP systolic 85–137; BP diastolic 55–93; PULSE 64–129; RESP 13–24; TEMP 36.7–36.9; O2SAT 94–100; BMI 38.0
--- OUTSIDE RECORDS SUMMARY | 2024-09-23 11:49 | XMS_ITS | Encounter Summary ---
Author Organization [facility] Address [address] [place] [address] Care Team Providers Care Group Counselor Name Role Phone Francisco Mckinley DO Primary Care Provider Encounter Details Date Type Department Care Team (Late st Contact Info) Description 04/04/2024 Results Follow-Up [facility] [address] [place] [address] Meliton Mckinley MD [address] [place] [address] POC URINALYSIS DIPSTICK AUTOMATED Social [...] any time in the past 12 m [facility], were you homeless or living in a fpc (including now)? Yes 02/01/2024 Feeling Safe Answer Date Recorded Are you in a relationship wi th someone who hurts you emotionally and/or physically? 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 Family Medicine [place] [address] [place] [phone] Francisco Mckinley DO [address] [place] [phone] 01/26/2025 8:40 AM BENZENE STILL UTILITY OPERATOR Office Visit [facility] Gastroenterology- [place] [address] [place] [phone] [facility]ada [facility] [address] [place] [phone] documented as of this encounter Visit Diagnoses Not on filedocumented in this encounter Additional Health Concerns Assessment Noted Time PHQ-9 Depression Total Score: 3 04/03/19 25 12:00 PM BENZENE STILL UTILITY OPERATOR documented as of this encounter Care Teams Group Counselor Relationship Specialty Start Date End Date Francisco Mckinley DO [address] [place] [phone] PCP - General 06/07/20 documented as of this encounter
--- OUTSIDE RECORDS SUMMARY | 2024-09-23 11:49 | XMS_ITS | Encounter Summary ---
Author Organization [facility] Address [address] [place] [address] Care Team Providers Care Social Media Sr Strategy Manager Name Role Phone Francisco Mckinley DO Primary Care Provider [phone] Reason for Visit * Reason Comments Medication Refill Medication Review Med Refill Encounter Details Date Type Department Care Team (Late st Contact Info) Description 09/22/2024 Refill [facility] Medicine [address] [phone] Francisco Mckinley DO [address] [place] [phone] Uncomplicated opioid dependence; Hospice care patient; [...] time in the past 12 m [facility], were you homeless or living in a fdc (including now)? 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 MS Contin request has been sent to provider to approve. Martina Fletcher LPN, 09/22/2024 2:19 PM * Telephone Encounter - Jelena Johnson - 09/22/2024 1:57 PM CDT Copied from [facility] #[id number]. Topic: Medication Request >> Sep 22, 2024 1:55 PM Jelena Carlson wrote: Caller Name: Maribell Foreman Callback Number: Telephone Information: Medication (Ask patient/caregiver to spell if possible): morphine Note: All medication prescriptions can be requested using one [facility] Preferred Pharmacy: The patient's preferred pharmacy is [address] Call Notes: Caller is checking the status of a prescription request sent on date 09/22/24. Patient asking if there is a provider in office that can approve medication today. Review the medication to determine if prescription has been sent to the pharmacy. Has the prescription been sent to the pharmacy? No, less than 48 hours since prescription request sent to clinic but patient requesting a message be sent Is there an encounter open? Yes * Telephone Encounter - Farnaz Laws - 09/22/2024 9:36 AM CDT Copied from [facility] #[id number]. Topic: Patient or Caregiver Communication Request >> Sep 22, 2024 9:34 AM Farnaz Carlson wrote: Patient or Caregiver calling to update Care team on status after a recent visit Caller: PT Patient/Caregiver Callback Number: Telephone Information: Call Notes: IS checking to see if her medication is going to be sent in today , she is asking for acall back , Dilaudid and morpholine * Telephone Encounter - Martina Fletcher LPN - 09/22/2024 8:16 AM CDT Medication Refill Request Last Fill Date:MS Contin 08/23/24 90 Recent and Future Visits: Recent Visits Date Type Provider Dept 07/07/24 Video Visit Ailyn Leon FNP [facility] 06/27/24 Video Visit Francisco Mckinley DO [facility] 04/03/24 Office Visit Francisco Mckinley DO [facility] 02/01/24 Office Visit Francisco Mckinley, DO [facility] 12/27/23 Office Visit Francisco Mckinley, DO [facility] 12/13/23 Office Visit Francisco Mckinley, DO [facility] 09/27/23 Office Visit Francisco Mckinley, DO [facility] 08/23/23 Office Visit Kacy Lazo FNP [facility] 04/26/23 Office Visit Francisco Mckinley, DO [facility] Showing recent visits within past 540 days with a meds authorizing provider and meeting all other requirements Future Appointments Date Type Provider Dept 09/24/24 Appointment Natishravan Francisco, DO [facility] Showing future appointments within next 365 days with a meds authorizing provider and meeting all other requirements * Telephone Encounter - Rufus Ramey - 09/22/2024 8:13 AM CDT Copied from [facility] #[id number]. Topic: Medication Request >> Sep 22, 2024 8:11 AM Rufus Trejo wrote: Caller Name: Maribell Foreman Callback Number: [phone] Medication (Ask patient/caregiver to spell if possible): HYDROmorphone (DILAUDID) 4 mg tablet morphine (MS CONTIN) 100 mg Controlled Release table Note: All medication prescriptions can be requested using one [facility] Preferred Pharmacy: [facility] [address] Call Notes: Patient is needing refills Did caller contact the correct clinic for prescribing provider? Yes Ask caller if the refill is for a controlled medication. Is this for a controlled Medication? Unsure Is there an encounter open? 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 Office Visit [facility] Gastroenterology- [place] [address] [facility] [address] [place] [address] Robert Estrada MD [address] [facility] [address] [place] [address] documented as of this encounter Visit Diagnoses Diagnosis Uncomplicated opioid dependence Opioid type dependence, unspecified Hospice care patient Encounter for palliative care Other chronic pancreatitis documented in this encounter Care Teams Social Media Sr Strategy Manager Relationship Specialty Start Date End Date Francisco Mckinley DO [address] [place] [phone] PCP - General 06/07/20 documented as of this encounter
--- OUTSIDE RECORDS SUMMARY | 2024-09-23 11:49 | XMS_ITS | Encounter Summary ---
Author Organization [facility] Address [address] [place] [address] Care Team Providers Care Park Warden Name Role Phone Francisco Mckinley DO Primary Care Provider [phone] Reason for Visit * Reason Comments Med Refill Encounter Details Date Type Department Care Team (Late st Contact Info) Description 09/23/2024 Refill [facility] [address] [phone] Francisco Mckinley DO [address] [place] [phone] Uncomplicated opioid dependence; Hospice care patient; [...] were you homeless or living in a long-term (including now)? 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 Gender Identity Not on file Sexual Orientation Not on file documented as of this encounter Plan of Treatment Upcoming Encounters Date Type Department Care Team (Late st Contact Info) Description 09/24/2024 2:00 PM CDT Office Visit [facility] [place] [address] [place] [phone] Francisco Mckinley DO [address] [phone] 01/26/2025 8:40 AM SANDBLAST CARVER Office Visit [facility] Gastroenterology- [place] [address] [address] Robert Estrada MD [address] [place] [phone] documented as of this encounter Visit Diagnoses Diagnosis Uncomplicated opioid dependence Opioid type dependence, unspecified Hospice care patient Encounter for palliative care Other chronic pancreatitis documented in this encounter Care Teams Park Warden Relationship Specialty Start Date End Date Francisco Mckinley DO [address] [place] [address] PCP - General 06/07/20 documented as of this encounter
--- OUTSIDE RECORDS SUMMARY | 2024-09-23 11:49 | XMS_ITS | Encounter Summary ---
Author Organization [facility] Address [address] [place] [address] Care Team Providers Care Wash Barrel Leader Name Role Phone Francisco Mckinley DO Primary Care Provider [phone] Reason for Visit * Reason Comments Information Encounter Details Date Type Department Care Team (Late st Contact Info) Description 07/01/2024 Telephone [facility] Medicine [address] [phone] Francisco Mckinley DO [address] [place] [phone] Information Social History Tobacco Use Types [...] in the [facility] 12 [facility], were you homeless or living in a care home (including now)? 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 Topic: Patient or Caregiver Communication Request >> Jul 01, 2024 11:47 AM Eva Gloria wrote: Patient or Caregiver calling to update Care team on status after a recent visit Caller: Maribell Foreman Patient/Caregiver Callback Number: [phone] Call Notes: patient is not feeling any better and has a few more spots that have popped up on leg documented in this encounter Plan of Treatment Upcoming Encounters Date Type Department Care Team (Late st Contact Info) Description 09/24/2024 2:00 PM CDT Office Visit [facility] [address] [place] [phone] Francisco Mckinley DO [address] [place] [phone] 01/26/2025 8:40 AM STITCH BURNISHER Office Visit [facility] Gastroenterology- [place] [address] [phone] Robert Estrada MD [address] [phone] documented as of this encounter Visit Diagnoses Not on filedocumented in this encounter Care Teams Wash Barrel Leader Relationship Specialty Start Date End Date Francisco Mckinley DO [address] [place] [phone] PCP - General 06/07/20 documented as of this encounter
--- OUTSIDE RECORDS SUMMARY | 2024-09-23 11:49 | XMS_ITS | Encounter Summary ---
Author Organization [facility] Address [address] [place] [address] Care Team Providers Care Delivery Technician Name Role Phone Francisco Mckinley DO Primary Care Provider [phone] Reason for Visit * Reason Comments Med Refill Encounter Details Date Type Department Care Team (Late st Contact Info) Description 09/22/2024 Refill [facility] [address] [phone] Francisco Mckinley DO [address] [place] [phone] Uncomplicated opioid dependence; Hospice care patient; [...] were you homeless or living in a snf (including now)? 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 Gender Identity Not on file Sexual Orientation Not on file documented as of this encounter Plan of Treatment Upcoming Encounters Date Type Department Care Team (Late st Contact Info) Description 09/24/2024 2:00 PM CDT Office Visit [facility] [place] [address] [place] [phone] Francisco Mckinley DO [address] [phone] 01/26/2025 8:40 AM SPEECH LANGUAGE PATHOLOGIST Office Visit [facility] Gastroenterology- [place] [address] [phone] Robert Estrada MD [address] [place] [phone] documented as of this encounter Visit Diagnoses Diagnosis Uncomplicated opioid dependence Opioid type dependence, unspecified Hospice care patient Encounter for palliative care Other chronic pancreatitis documented in this encounter Care Teams Delivery Technician Relationship Specialty Start Date End Date Francisco Mckinley DO [address] [place] [address] PCP - General 06/07/20 documented as of this encounter
--- OUTSIDE RECORDS SUMMARY | 2024-09-23 11:49 | XMS_ITS | Encounter Summary ---
Author Organization [facility] Address [address] [place] [address] Care Team Providers Care Section Supervisor Name Role Phone Francisco Mckinley DO Primary Care Provider [phone] Reason for Visit * Reason Comments Clinical Consult Before Scheduling Encounter Details Date Type Department Care Team (Late st Contact Info) Description 09/22/2024 Telephone [facility] [place] [address] [phone] Francisco Mckinley DO [address] [place] [phone] Clinical Consult Before Scheduling Social History Tobacco Use Types Packs/Day Years [...] in the past [address] [facility], were you homeless or living in a assisted (including now)? 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 I let her know that her last prescription was written on August 23 and this should last her 30 days which would put her fortoday to be due. I let her know that the provider was out of the office but there is a refill request that is pending for him to sign and send into the pharmacy as soon as he gets the opportunity. Olivia redmond had no further questions at this time. Steffanie BECKETT * Telephone Encounter - Josefina Rock - 09/22/2024 3:57 PM CDT Copied from [facility] #[id number]. Topic: Symptomatic Care >> Sep 22, 2024 3:56 PM Josefina Chao wrote: Has this patient seen any provider (current or former) at the requested clinic in the past? Yes, Select the appropriate age range and symptom Patient has symptoms and is seeking care. Caller Name: Maribell Foreman Callback Number: Telephone Information: Call Notes: patient reporting level 10 of pain Age Range/Symptom: Adult 18+ - Transferred to N line and Yulissa answered call. documented in this encounter Plan of Treatment Upcoming Encounters Date Type Department Care Team (Late st Contact Info) Description 09/24/2024 2:00 PM CDT Office Visit [facility] [address] [place] [phone] Francisco Mckinley DO [address] [place] [phone] 01/26/2025 8:40 AM FOREIGN CLERK Office Visit [facility] Gastroenterology- [place] [address] [phone] Robert Estrada MD [facility] [phone] documented as of this encounter Visit Diagnoses Not on filedocumented in this encounter Care Teams Section Supervisor Relationship Specialty Start Date End Date Francisco Mckinley DO [address] [place] [phone] PCP - General 06/07/20 documented as of this encounter
--- OUTSIDE RECORDS SUMMARY | 2024-09-23 11:49 | XMS_ITS | Clinical Summary ---
Author Organization [facility] [address] [place] [address] Address [address] [place] [address] Care Team Providers Care Resolute Professional Name Role Phone Francisco Mckinley DO Primary Care Provider [phone] Allergies Active Allergy Reactions Criticality Noted Date Comments Aspirin Swelling High 09/15/2013 Codeine Hives High 07/18/2013 Ketorolac Hives High 04/09/2024 Sulfa (Sulfonamide Antibiotics) Hives High 09/15/2013 Trazodone Hcl Other (See Comments) 06/14/2021 Leg spasms Medications Oral Medication Containers (Sharps Container) For use with disposable syringe and needle. 1 Each 3 12/15/19 21 Active naloxone (Narcan) 4 mg/spray Wallace, Non-Aerosol EMERGENCY USE ONLY: ADMINISTER ONE SPRAY [...] TIMES DAILY 8514 mL 12/13/19 24 Active olkfbx-qtmsdmaf-n dmitir Cheema) 3,000-9,500-15,00 0 unit capsuleIndication s:Cirrhosis of [...] polyneuropathy, with long-term current use of insulin (CMS/[facility]) 1 Strip 3 times daily before meals. 100 Strip 2 06/03/19 25 Active BD Insulin Syringe Ultra-Fine 1 mL 31 gauge x 5/16 SyringeIndication s:Type 2 diabetes mellitus with diabetic polyneuropathy, with long-term current use of insulin ([facility]) FOR USE with insulin injections THREE TIMES DAILY (lantus and humalog) 200 Each 3 06/03/19 25 Active Blood-Glucose Meter,Continuous (Dexcom G7 Telephoner)Indicati ons:Type 2 diabetes mellitus with diabetic polyneuropathy, with long-term current use of insulin ([facility]) Use to monitor blood glucose continuously throughout the day. 1 Each 06/03/19 25 Active Blood-Glucose Sensor (Dexcom G7 Sensor) DeviceIndications :Type 2 diabetes mellitus with diabetic polyneuropathy, with long-term current use of insulin ([facility]) USE TO MONITOR BLOOD GLUCOSE CONTINUOUSLY THROUGH [...] bedtime. 30 Tablet 2 08/21/19 25 Active furosemide (LASIX) 80 mg tabletIndications :Lymphedema [...] mg 7 Tablet 10/02/19 25 2024 Active morphine (MS CONTIN) 100 mg Controlled Release tabletIndications :Uncomplicated opioid dependence (CMS/HCC),Hospice care patient,Other chronic pancreatitis (CMS/HCC) Take 1 Tablet (100 mg) by mouth every 8 hours. Start date 09/22/2024 Max Daily Amount: 300 mg 90 Tablet 09/24/19 25 Active nicotine (NICODERM CQ) 21 mg/24 hr patchIndications: [...] Tablet 08/21/19 25 2024 Discontin ued(Reord er) morphine (MS CONTIN) 100 mg Controlled Release tabletIndications :Uncomplicated opioid dependence (CMS/HCC),Hospice care patient,Other chronic pancreatitis (CMS/HCC) Take 1 Tablet (100 mg) by mouth every 8 hours. Max Daily Amount: 300 mg 90 Tablet 08/24/19 25 2024 Discontin ued(Reord er) HYDROmorphone (DILAUDID) [...] 12 mg 21 Tablet 09/11/19 25 2024 HYDROmorphone (DILAUDID) 4 mg tabletIndications [...] Drug-induced constipation 04/09/2024 Chronic cholecystitis without calculus Nocturnal hypoxemia due to emphysema 12/27/2023 Overview [...] correlation recommended.<<This interpretation has been electronically signed: Datar, Tonny MD 03/30/22 04:52:59 PM>> S/P placement of [...] Encounters Date Type Department Care Team Description 09/23/[address] [address] Francisco Mckinley DO Uncomplicated opioid dependence; Hospice care patient; Other chronic pancreatitis 09/22/[address] [address] Francisco Mckinley DO Clinical Consult Before Scheduling 09/22/[address] [address] Francisco Mckinley DO Uncomplicated opioid dependence; Hospice care patient; Other chronic pancreatitis 09/22/[address] [address] Francisco Mckinley DO Uncomplicated opioid dependence; Hospice care patient; Other chronic pancreatitis 09/17/[address] [phone] Francisco Mckinley DO Medication Assistance; Patient Communication 09/17/[address] [phone] Francisco Mckinley DO Information 09/13/[address] [phone] Francisco Mckinley DO Uncomplicated opioid dependence; Hospice care patient; Other chronic pancreatitis [address] [phone] Francisco Mckinley DO Provider Call 09/02/[address] [phone] Francisco Mckinley DO Medication Refill; Results; Pharmacy Clarification 08/28/[address] [phone] Francisco Mckinley DO Information; Weight Check; Information 08/28/[address] [phone] Francisco Mckinley DO Cellulitis of right lower extremity; Cellulitis of left lower extremity; Sepsis with acute liver failure without hepatic coma or septic shock, due to unspecified organism (CMS/HCC); History of hepatitis C; Uncomplicated opioid dependence; Chronic cholecystitis without calculus; RUQ abdominal pain 08/26/[address] [phone] Francisco Mckinley DO Weight Gain 08/25/[address] [address] Francisco Mckinley DO Cellulitis of right lower extremity; Cellulitis of left lower extremity; Sepsis with acute liver failure without hepatic coma or septic shock, due to unspecified organism (CMS/HCC); History of hepatitis C; Uncomplicated opioid dependence; Chronic cholecystitis without calculus; RUQ abdominal pain 08/19/[address] [address] Francisco Mckinley DO Uncomplicated opioid dependence; Hospice care patient; Other chronic pancreatitis 08/19/[address] [address] Francisco Mckinley DO Cellulitis of right lower extremity; Cellulitis of left lower extremity; Sepsis with acute liver failure without hepatic coma or septic shock, due to unspecified organism (CMS/HCC); History of hepatitis C; Uncomplicated opioid dependence; Chronic cholecystitis without calculus; RUQ abdominal pain; Insomnia, unspecified type 08/12/[address] [address] Francisco Mckinley DO Cellulitis of right lower extremity; Cellulitis of left lower extremity; Sepsis with acute liver failure without hepatic coma or septic shock, due to unspecified organism (CMS/HCC); History of hepatitis C; Uncomplicated opioid dependence; Chronic cholecystitis without calculus; RUQ abdominal pain 08/06/[address] [address] Francisco Mckinley DO Uncomplicated opioid dependence; Hospice care patient; Other chronic pancreatitis 08/04/[address] [address] Francisco Mckinley DO 07/29/2024 External Device Data STL ABSTRACTION Provider, Abstract 07/29/2024 External Device Data STL ABSTRACTION Provider, Abstract 07/29/[address] [phone] Meliton Mckinley MD Cirrhosis of liver without ascites, unspecified hepatic cirrhosis type (CMS/HCC) 07/29/[address] [place] [phone] Francisco Mckinley DO Nausea and vomiting, unspecified vomiting type 07/28/[address] [phone] Francisco Mckinley DO Cellulitis of right lower extremity; Cellulitis of left lower extremity; Sepsis with acute liver failure without hepatic coma or septic shock, due to unspecified organism (CMS/HCC); History of hepatitis C; Uncomplicated opioid dependence; Chronic cholecystitis without calculus; RUQ abdominal pain 07/25/[address] [phone] Francisco Mckinley DO Information 07/23/[address] [phone] Francisco Mckinley DO Medication Refill 07/23/[address] [phone] Francisco Mckinley DO Medication Question; Patient Communication 07/22/[address] [phone] Francisco Mckinley DO Cellulitis of right lower extremity; Cellulitis of left lower extremity; Sepsis with acute liver failure without hepatic coma or septic shock, due to unspecified organism (CMS/HCC); History of hepatitis C; Uncomplicated opioid dependence; Chronic cholecystitis without calculus; RUQ abdominal pain 07/21/[address] [phone] Francisco Mckinley DO Pharmacy Change 07/17/[address] [phone] Francisco Mckinley DO Provider Call 07/16/2024 Orders Only [address] [phone] Ailyn Leon, TECHNOLOGY TRAINING ASSOCIATE COPD with exacerbation (CMS/HCC) (Primary Dx); Hepatic cirrhosis, unspecified hepatic cirrhosis type, unspecified whether ascites present (CMS/HCC); Pulmonary emphysema, unspecified emphysema type (CMS/HCC) 07/09/[address] [address] Francisco Mckinley DO Cellulitis of right lower extremity; Cellulitis of left lower extremity; Sepsis with acute liver failure without hepatic coma or septic shock, due to unspecified organism (CMS/HCC); History of hepatitis C; Uncomplicated opioid dependence; Chronic cholecystitis without calculus; RUQ abdominal pain 07/09/[address] [address] Francisco Mckinley DO 07/07/2024 2:00 PM CDT Video Visit [address] [phone] Ailyn Leon, TECHNOLOGY TRAINING ASSOCIATE Screening mammogram, encounter for (Primary Dx); COPD with exacerbation (CMS/HCC); Panlobular emphysema (CMS/HCC); Hepatic cirrhosis, unspecified hepatic cirrhosis type, unspecified whether ascites present (CMS/HCC); Essential hypertension; Symptomatic bradycardia 07/07/[address] [phone] Francisco Mckinley DO 07/01/[address] [phone] Francisco Mckinley DO Information 06/27/2024 11:00 AM CDT Video Visit [address] [phone] Francisco Mckinley DO Cellulitis of right lower extremity (Primary Dx); Cellulitis of left lower extremity; Uncomplicated opioid dependence; Chronic cholecystitis without calculus; RUQ abdominal pain; Seizure disorder; Panlobular emphysema (CMS/HCC); Type 2 diabetes mellitus with diabetic polyneuropathy, with long-term current use of insulin; Cirrhosis of liver without ascites, unspecified hepatic cirrhosis type (CMS/HCC); Lymphedema of both lower extremities 06/27/[address] [phone] Francisco Mckinley DO Morphine 60 mg PA 06/27/[address] [phone] Francisco Mckinley DO Information 06/24/2024 External Device Data STL ABSTRACTION Provider, Abstract 06/24/[address] [phone] Francisco Mckinley DO Cellulitis of [...] PNEUM OCOCCAL CONJUGATE VACCINE 20-VALENT (PCV20), POLYSACCHARIDE [id number] CONJUGATE, ADJUVANT 0.5 ML (PF) IM 12/19/2022 INFLUENZA VACCINE QUADRIVALE NT 6 MOS UP PF IM 12/19/2022,01/01/2019,06/07/2017 Family History Medical History Relation Name Comments Unknown Brother 1 Unknown Brother 2 Unknown Brother 3 Unknown Brother 4 Heart Disease Brother 5 of [place]. Other Brother 6 of suicide . Unknown Brother 7 Unknown Brother 8 Heart Disease Father Chavo Rios of [place]. Respiratory Disease Father Chavo Rios Has lung [...] Chavo Rios Maternal Grandfather Maternal Grandmother Mother P.c. Kumar Alive Paternal Grandfather Paternal Grandmother Sister [...] any time in the past 12 m [facility], were you homeless or living in a penitentiary (including now)? 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 Gender Identity Not on file Sexual Orientation Not on file Last Filed Vital Signs Vital Sign Reading Time Taken Comments Blood Pressure 123/79 05/21/2024 1:00 PM ENVIRONMENTAL HEALTH SAFETY MANAGER Pulse 83 05/21/2024 1:00 PM ENVIRONMENTAL HEALTH SAFETY MANAGER Temperature 36.6 C (97.9 F) 05/21/2024 1:00 PM ENVIRONMENTAL HEALTH SAFETY MANAGER Respiratory Rate 18 05/21/2024 1:00 PM ENVIRONMENTAL HEALTH SAFETY MANAGER Oxygen Saturation 96% 05/21/2024 1:00 PM ENVIRONMENTAL HEALTH SAFETY MANAGER Inhaled Oxygen Concentration - - Weight 109.3 kg (241 lb) 07/07/2024 2:02 PM CDT Height 182.9 cm (6') 07/07/2024 2:02 PM CDT Body Mass Index 32.69 07/07/2024 2:02 PM CDT Plan of Treatment Upcoming Encounters Date Type Department Care Team (Late st Contact Info) Description 09/24/2024 2:00 PM CDT Office Visit [facility]3] Family Medicine [address] [phone] Francisco Mckinley DO [address] [phone] 01/26/2025 8:40 AM ENVIRONMENTAL HEALTH SAFETY MANAGER Office Visit [facility]3] Gastroenterology- [place] [address] [place] [phone] Robert Estrada MD [address] Taylor [address] [place] [phone] Health Maintenance Due Date Last Done [...] Additional history exists LDL CHOLESTEROL ANNUAL 04/26/2024 4, 10/25/2020, 12/10/2019 ZOSTER VACCINE (1 of 2) 2024 INFLUENZA VACCINE (#1) 2024 4, 12/19/2022, 05/01/2022, Additional history exists DIABETES: A1C (Auto Order) 10/22/202410/22, 04/26/2023, 12/14/2020, Additional history exists DIABETES MICROALBUMIN ANNUAL SCREEN 04/03/2025 04/03/2024, 09/27/2023, 04/26/2023, Additional history exists COLORECTAL SCREENING 10/04/2027 10/03/2022, 10/03/2022, 01/08/2019, Additional history exists Colorectal Cancer Screening 10/04/2027 DTAP/TDAP/TD VACCINES (2 - T d or Tdap) 09/27/2031 09/26/2021 Medical Devices Implanted Type Area Cuff Stitcher Device Identifier Shelf Expiration Date Model / Serial / Lot Medtronic Ra Lead 5076-52-05/10/19 23 Implanted:05/10 (Quantity not on file) Lead [employer] 5076-52 / [id number] / Medtronic Rv Lead 5076-58-05/10/19 23 Implanted:05/10 (Quantity not on file) Lead [employer] 5076-58 / [id number] / Medtronic Pacemaker [id number]/22/202 3 Implanted:05/10 (Quantity not on file) Pacemaker [employer] [id number] / [id number] / Description:Dr. Wyman [place] [phone] Procedures Procedure Name Priority Date/Time Associated Diagnosis Comments POTASSIUM LEVEL Routine 09/01/2024 10:53 AM CDT Fluid retention MICROALBUMIN/CREATIN INE RATIO, RANDOM UR Routine 04/03/2024 1:11 PM ENVIRONMENTAL HEALTH SAFETY MANAGER Type 2 diabetes mellitus with diabetic polyneuropathy, with long-term current use of insulin (CMS/HCC) HEMOGLOBIN A1C Routine 10/23/2023 LIPID PANEL Routine 04/26/2023 11:05 AM ENVIRONMENTAL HEALTH SAFETY MANAGER Cirrhosis of liver without ascites, unspecified hepatic cirrhosis type (CMS/HCC) COLONOSCOPY REPORT 10/03/2022 3: 34 PM CDT HM DIABETES EYE EXAM Routine 07/30/2022 10:18 AM CDT MAMMO SCREEN BILAT W OR WO CAD Routine 04/29/2019 12:45 PM ENVIRONMENTAL HEALTH SAFETY MANAGER Visit for screening mammogram from Last 3 Months or Most Recently Relevant to Health Maintenance Results * POTASSIUM LEVEL (09/01/2024 10:53 AM CDT) POTASSIUM 3.7 3.5 - 5.3 mmol/L [facility] Comment: Test Performed at: [facility] [address] [place] [address] Mckinley Urbano MD Blood 09/01/2024 10:5 3 AM CDT 09/01/2024 10:54 AM CDT Francisco Mckinley DO CHEMISTRY ORDERABLES Final Re sult [facility] [phone] [facility] [address] [place] [address] * MICROALBUMIN/CREATININE RATIO, RANDOM UR (04/03/2024 1:11 PM ENVIRONMENTAL HEALTH SAFETY MANAGER) Pathologist [facility] Creatinine, Urine 222 20 - 275 mg/dL [...] within a diagnostic category. Test Performed at: [facility] [address] [facility] [place] [address] Mckinley Urbano MD Urine URINE SPECIMEN OBTAINED BY CLEAN CATCH PROCEDURE / Unknown 04/03/2024 1:11 PM ENVIRONMENTAL HEALTH SAFETY MANAGER 04/04/2024 2:48 AM ENVIRONMENTAL HEALTH SAFETY MANAGER Francisco Mckinley URINE ORDERABLES Final Result [facility] [phone] [facility] [address] [place] [address] * HEMOGLOBIN A1C (10/23/2023) [facility] ABSTRACTED HGB A1C 5.2 % Blood 10/23/2023 Abstract Provider CHEMISTRY ORDERABLES Final Res ult * (ABNORMAL) LIPID PANEL (04/26/2023 11:05 AM ENVIRONMENTAL HEALTH SAFETY MANAGER) [facility] CHOLESTEROL 249(H) <200 mg/dL [facility] [...] equation in the estimation of LDL-C. Collins SS et al. FITZ. 2013;310(19): 4877-9240 (http://education.[employer]/faq/UDR925) CHOL/HDL RATIO 3.0 <5.0 (calc) [facility] TOTAL NON-HDL CHOL(LDL+VLDL) 167(H) <130 mg/dL (calc) [facility] Comment: For patients with diabetes plus 1 major ASCVD risk factor, treating to a non-HDL-C goal of <100 mg/dL (LDL-C of <70 mg/dL) is considered a therapeutic option. Test Performed at: [facility] [address] [place] [address] Mckinley Urbano MD Blood 04/26/2023 11:0 5 AM ENVIRONMENTAL HEALTH SAFETY MANAGER 04/27/2023 3:10 AM ENVIRONMENTAL HEALTH SAFETY MANAGER us Francisco Mckinley DO CHEMISTRY ORDERABLES Final Re sult [facility] [phone] [facility] [address] * COLONOSCOPY REPORT (10/03/2022 3:34 PM CDT) Narrative Procedure Note Robert Estrada MD - 10/03/2022 3:34 PM CDT [facility] GI Patient Name: Maribell Foreman Procedure Date: [...] PM Scope Out: 3:32:23 PM [address] [place], [place] Robert Estrada MD GI PROCEDURE ORDERABLES F inal Result * DIABETES EYE EXAM (07/30/2022 10:18 AM CDT) us Abstract Provider HEALTH MAINTENANCE Final Resul t * MAMMO SCREEN BILAT W OR WO CAD (04/29/2019 12:45 PM ENVIRONMENTAL HEALTH SAFETY MANAGER) Anatomical Region Laterality Modality Breast Bilateral Other Narrative 04/30/2019 7:17 PM ENVIRONMENTAL HEALTH SAFETY MANAGER Bilateral Mammogram Reason for Exam: Screening Comparison: [...] Most Recently Relevant to Health Maintenance Insurance MEDICAID [place] RX INFOCROSSING Medicaid RX [employer] PL[employer] (INTERNAL) [facility] Plans Advance Directives For more information, please contact: [phone] Documents on File Type Date Recorded Patient Ramp Flight Attendant Expl anation Patient Life Sustaining Treatment Doc 07/31/2024 10:50 AM OHDNR Order * Full Code (Latest Code Status on File) Date Activated Date Inactivated Comments 05/18/2024 3:06 PM 05/21/2024 4:34 PM * Full Code Date Activated Date Inactivated Comments 03/27/2022 10:19 PM 04/03/2022 10:07 PM * Full Code Date Activated Date Inactivated Comments 03/29/2021 7:03 AM 03/29/2021 10:40 AM Care Teams Resolute Professional Relationship Specialty Start Date End Date Francisco Mckinley DO [address] [place] [address] PCP - General 06/07/20
--- OUTSIDE RECORDS SUMMARY | 2024-09-23 11:49 | XMS_ITS | Encounter Summary ---
Author Organization [facility] Address [address] [place] [address] Care Team Providers Care Industrial Pipefitter Journeyman Name Role Phone Francisco Mckinley DO Primary Care Provider [phone] Reason for Visit * Reason Comments Medication Assistance Patient Communication Encounter Details Date Type Department Care Team (Late st Contact Info) Description 09/17/2024 Telephone [facility] Medicine [place] [address] [phone] Francisco Mckinley DO [address] [place] [phone] Medication Assistance; Patient Communication Social History Tobacco Use Types Packs/Day Years [...] any time in the past 12 m [facility], were you homeless or living in a nursing home (including now)? 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 Discussed that the paracentesis was not done and she just wanted to make sure Dr. Mckinley knew. Daily CASANOVA * Telephone Encounter - Juan Pablo Smith - 09/18/2024 8:49 AM CDT Copied from [facility] #[id number]. Topic: CPA Information Request >> Sep 18, 2024 8:47 AM Juan Pablo Chao wrote: Caller is returning phone call from clinic. Caller Name: Maribell Patient/Caregiver Callback Number: [phone] Clinic Left Note In Chart Is there a note from the clinic requesting the caller be transferred when they call back? 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 Yes Call Notes: Communicated information that is documented in the note. Caller wants a call back from clinic. She wanted to let Daily know, she was sent home without having the procedure completed. Theytold her the septic tube drain, leaks and causes infections and would not be good for her. * Telephone Encounter - Daily Flores LPN - 09/18/2024 8:19 AM CDT 09/18/2024 8:19 AM Returned call and spoke with patient. Discussed Dr. Galvez message and patient sees orthopedics on 09/30. Voiced understanding. Daily CASANOVA * Telephone Encounter - Francisco Mckinley DO - 09/17/2024 5:52 PM CDT Taper should be continued through paracentesis. Paracentesis should improve pain, not worsen pain. If knee is still significantly symptomatic for pain, recommend evaluation with x-ray, and potentially referral to orthopedics. * Telephone Encounter - Natalie Zamudio - 09/17/2024 4:58 PM CDT Copied from [facility] #[id number]. Topic: Medication Request >> Sep 17, 2024 4:56 PM Natalie Gloria wrote: Caller Name: Maribell Foreman Callback Number: Telephone Information: Medication (Ask patient/caregiver to spell if possible): Dilaudid 4mg Note: All medication prescriptions can be requested using one CRM Caller is requesting: Medication Question from Patient (not involving new prescription or refill) Preferred Pharmacy: [facility] [place], [place] - [address] Call Notes: Caller has question about -- Patient states she is going in tomorrow at 8 am for water to be drained off her stomach. She states her Dilaudid was decreased to twice a day but states that will not cut it after that procedure. She also reports that she blew her knee out really bad and that is another factor to her question. She would like to know if she could get at least another week of taking this medication 3 times a day. Please advise, thank you! Is there an encounter open? No documented in this encounter Plan of Treatment Upcoming Encounters Date Type Department Care Team (Late st Contact Info) Description 09/24/2024 2:00 PM CDT Office Visit [facility] [address] [place] [phone] Francisco Mckinley DO [address] [place] [phone] 01/26/2025 8:40 AM WOOL SCOURER Office Visit [facility] Gastroenterology- [place] [address] [phone] Robert Estrada MD [facility] [facility] [address] [place] [phone] documented as of this encounter Visit Diagnoses Not on filedocumented in this encounter Care Teams Industrial Pipefitter Journeyman Relationship Specialty Start Date End Date Francisco Mckinley DO [address] [place] [phone] PCP - General 06/07/20 documented as of this encounter
--- OUTSIDE RECORDS SUMMARY | 2024-09-23 11:49 | XMS_ITS | Encounter Summary ---
Author Organization [facility] Address 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 Due to Holiday and extended weekend, Dr. Mckinley called to ER, the date/time selected is 1st available for HFU * Telephone Encounter - Natalie Zamudio - 09/17/2024 4:56 PM CDT Copied from [facility] #[id number]. Topic: Established Patient Care >> Sep 17, 2024 4:54 PM Natalie Gloria wrote: Is the [facility]? Yes, select appropriate option in Discharge Facility SmartList Caller Name: Maribell Foreman Callback Number: Telephone Information: Call Notes: Discharge from [facility] ED on 09/15 Patient is High Risk Where was the patient discharged from? Emergency Department (ED/ER) Is there availability to schedule the patient within 5 calendar days of discharge? No, in person appointment not available or call came after 5 days of discharge documented in this encounter Plan of Treatment Upcoming Encounters Date Type Department Care Team (Late st Contact Info) Description 09/24/2024 2:00 PM CDT Office Visit [facility] [address] [place] [phone] Francisco Mckinley DO [address] [place] [phone] 01/26/2025 8:40 AM DAMPER FITTER Office Visit [facility]- Zaheer [address] [phone] Robert Estrada MD [address] [phone] documented as of this encounter Visit Diagnoses Not on filedocumented in this encounter Care Teams Locomotive Crane Operator Relationship Specialty Start Date End Date Francisco Mckinley DO [address] [place] [phone] PCP - General 06/07/20 documented as of this encounter
--- NOTE | 2024-09-23 11:51 | W.ED.EXTPRO ---
HPI - Extremity Problem General: Chief complaint: Extremity Injury, Lower Stated complaint: Fall, Lt Ankle pain Time Seen by Provider: 09/23/24 11:43 History of Present Illness: 49-year-old female presents emergency room complaining of right ankle pain. Patient slipped as she was coming out of the bathroom she has an obvious deformity arrives in a splint she removed on arrival. Dorsalis pedis pulse palpable but somewhat weak. No cyanosis. No other injuries. Associated symptoms: Deny chest pain, fever(s) or rash Related Data Home Medications ?Medication ?Instructions ?Recorded ?Confirmed insulin glargine 100 unit/mL See Rx Instructions .Route .COMPLEX 11/23/22 09/18/24 subcutaneous solution (Lantus U-100 Insulin) Held on 08/19/23. Instructions: Resume on 08/26/23. hold till PCP follow up scopolamine base 1 mg over 3 days 1 patch topical Q3D 04/27/23 09/18/24 transdermal patch tenofovir disoproxil fumarate 300 300 mg PO DAILY 04/27/23 09/18/24 mg tablet zinc sulfate 50 mg zinc (220 mg) 50 mg PO DAILY 08/15/23 09/18/24 capsule albuterol sulfate 90 mcg/actuation 2 puff inhalation Q6H PRN 10/19/23 09/18/24 aerosol inhaler (Ventolin HFA) Shortness Of Breath amitriptyline 75 mg tablet 75 mg PO BEDTIME 10/19/23 09/18/24 doxepin 10 mg capsule 10 mg PO BEDTIME PRN Sleep 10/19/23 09/18/24 furosemide 40 mg tablet See Rx Instructions .Route .COMPLEX 10/19/23 09/18/24 levalbuterol tartrate 45 2 inh inhalation Q6H PRN Shortness 10/19/23 09/18/24 mcg/actuation aerosol inhaler Of Breath (Xopenex HFA) rimegepant 75 mg disintegrating 75 mg PO DAILY PRN Migraine 10/19/23 09/18/24 tablet (Nurtec ODT) Headache cholecalciferol (vitamin D3) 1,250 50,000 unit PO Q7D 01/17/24 09/18/24 mcg (50,000 unit) capsule gabapentin 300 mg capsule 600 mg PO BID 01/17/24 09/18/24 metoclopramide HCl 5 mg tablet 5 mg PO QID PRN nausea/emesis 01/17/24 09/18/24 rifaximin 550 mg tablet (Xifaxan) 550 mg PO BID 01/17/24 09/18/24 Previous Rx's ?Medication ?Instructions ?Recorded lactulose 10 gram/15 mL oral 90 ml PO TID 30 days #8,100 mL 08/19/23 solution levetiracetam 750 mg tablet 750 mg PO BID 30 days #60 tabs 08/19/23 levothyroxine 50 mcg tablet 50 mcg PO QAM 30 days #30 tabs 08/19/23 [id number]-[id number]-xuytarj 1 cap PO TID 30 days #30 caps 08/19/23 3,000-9,500-15,000 unit capsule, delayed rel (Creon) nifedipine 30 mg tablet,extended 30 mg PO DAILY 30 days #30 tabs 08/19/23 release 24 hr oxycodone 30 mg tablet 30 mg PO Q4H PRN Pain 2 days #12 08/19/23 tabs pantoprazole 40 mg tablet,delayed 40 mg PO BID #60 tabs 08/19/23 release potassium chloride 20 mEq 20 meq PO DAILY 15 days #15 tabs 08/19/23 tablet,extended release spironolactone 25 mg tablet 25 mg PO BID 30 days #30 tabs 08/19/23 sumatriptan succinate 50 mg tablet See Rx Instructions .Route 08/19/23 .COMPLEX 10 days #10 tabs tizanidine 4 mg tablet 4 mg PO Q6H PRN Spasms 10 days #30 08/19/23 tabs umeclidinium 62.5 mcg-vilanterol 1 inh inhalation DAILY 30 days #30 08/19/23 25 mcg/actuation powdr for ea inhalation (Anoro Ellipta) ciprofloxacin HCl 500 mg tablet 500 mg PO BID #14 tabs 01/17/24 (Cipro) promethazine 25 mg tablet 25 mg PO TID PRN nausea and 01/17/24 vomiting #14 tabs Allergies Allergy/AdvReac Type Severity Reaction Status Date / Time codeine Allergy Unknown Unknown Verified 09/18/24 08:02 aspirin Allergy ALGY-Hives Verified 09/18/24 08:02 diphenhydramine (From Allergy ADR-Muscle Verified 09/18/24 08:02 Benadryl) Pain Sulfa (Sulfonamide Allergy ALGY-Swell Verified 09/18/24 08:02 Antibiotics) Lip/Tongue/Throat Review of Systems Const: Denies: fever(s) or chills Card: Denies: chest pain Resp: Denies: dyspnea GI: Denies: abdominal pain : Denies: dysuria, urinary frequency or urinary urgency Musc: Reports: joint pain; Denies: neck pain or back pain Skin/Breast: Denies: rash PFSH ED PFSH: Medical History Hypokalemia 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 Pain management contract signed Metabolic encephalopathy SSS (sick sinus syndrome) Presence of permanent cardiac pacemaker Seizure disorder Tobacco dependency Hypothyroidism Accidental fentanyl overdose Overdose Cardiac arrest COPD (chronic obstructive pulmonary disease) Chronically on 3 L of oxygen Smoker Thrombocytopenia Bilateral pulmonary embolism Hepatitis B Pulmonary embolism Nicotine dependence, cigarettes, with unspecified nicotine-induced disorders Chronic hepatitis B Chronic abdominal pain Chronic hip pain Leg cramps Stomach cancer Pelvic inflammatory disease Diabetes mellitus Hypertension Encephalopathy Cirrhosis Gastroesophageal reflux GI bleeding Surgical History H/O right hemicolectomy History of right hemicolectomy H/O tubal ligation History of laparotomy History of hysterectomy Family History Mother Diabetes Father CAD (coronary artery disease) Other Cancer Social History Smoking and tobacco/nicotine status: former use of tobacco/nicotine (quit 2022) Quit status (tobacco/nicotine): has quit using Year quit tobacco: 2020 Former quit date comment: 2ppd x 26 year Hx Alcohol intake: never Substance/Drug Use: never Physical Exam Const: GENERAL APPEARANCE: cooperative ORIENTATION/CONSCIOUSNESS: Yes awake, Yes oriented to person, Yes oriented to place and Yes oriented to time HENMT: COMMON NORMALS: normocephalic, atraumatic and hearing grossly normal bilaterally HEAD & SCALP: normocephalic and atraumatic Resp: COMMON NORMALS: normal respiratory effort, No retractions, No use of accessory muscles and clear to auscultation bilaterally AUSCULTATION: clear to auscultation bilaterally Cardio: COMMON NORMALS: regular rate, regular rhythm and No murmurs present (Cardio) RATE: regular rate RHYTHM: regular rhythm GI: COMMON NORMALS: Soft to palpation and No hepatosplenomegaly present AUSCULTATION: Yes normoactive bowel sounds PALPATION: Yes Soft to palpation, No Tenderness to palpation present (GI), No Guarding due to palpation present (GI) and Yes No hepatosplenomegaly present Extremity: COMMON NORMALS: normal to inspection, capillary refill normal, no clubbing, cyanosis or edema, no calf tenderness and no pedal edema Neuro: SENSORIUM/ORIENTATION: Yes oriented to person, Yes oriented to place and Yes oriented to time Skin: COMMON NORMALS: no rashes or lesions noted GENERAL SKIN EXAM: no rashes or lesions noted Procedures Orthopedic Joint Reduction Joint #1: Time Out Performed: Yes Joint Reduction Location: ankle Analgesia: procedural sedation Shoulder Technique Used (if applicable): traction/counter-traction Post-reduction neuro exam: intact Post-reduction vascular: intact Post Reduction X-Ray Obtained: Yes Post Reduction X-Ray Results: reduced Splint Applied: Yes Patient Tolerated Procedure: well Procedural Sedation Indication: fracture/dislocation reduction ASA Class: I Preparation: gambling monitor applied, pulse oximeter, supplemental O2 applied, suction/airway equipment at bedside and IV secured Fentanyl: IV Fentanyl dose (mcg): 50 IV Etomidate dose (mg): 10 Patient Tolerated Procedure: well Complications: none Interventions: oxygen applied Course Vital Signs: Vital signs: Vital Signs Temperature 98.2 F 09/23/24 11:40 Pulse Rate 86 09/23/24 11:40 Respiratory Rate 24 H 09/23/24 12:43 Blood Pressure 93/66 09/23/24 11:40 Pulse Oximetry 100 09/23/24 12:43 Oxygen Delivery Me thod Nasal Cannula 09/23/24 11:40 Oxygen Flow Rate 4 09/23/24 11:40 MDM - Extremity (Nontraumatic) Medical Decision Making Fracture is not stable or able to reduce it but she has so much contracture in her gastroc at this point that it is not fully seated over the talar dome. She has good capillary refill and good dorsalis pedis posterior tibialis pulse discussed with fire equipment repairer inspector will admit for ORIF. Admit to hospitalist service discussed Dr. Barrera orders written Medical Records I reviewed the patient's medical records. Lab Data I reviewed the patient's lab results. 09/23/24 12:45 09/23/24 12:34 Laboratory Results WBC 8.37 10^3/uL (3.29-11.43) 09/23/24 12:45 RBC 4.96 10^6/uL (3.85-5.65) 09/23/24 12:45 Hgb 14.50 g/dL (11.27-16.99) 09/23/24 12:45 Hct 43.0 % (36-47) 09/23/24 12:45 MCV 86.7 fl (85-98) 09/23/24 12:45 MCH 29.2 pg (27-33) 09/23/24 12:45 MCHC 33.7 g/dL (30-55) 09/23/24 12:45 RDW 13.8 % (12.1-15.1) 09/23/24 12:45 Plt Count 157 10^3/cmm (157-399) 09/23/24 12:45 MPV 10.7 fL (7.4-10.4) H 09/23/24 12:45 Neut % (Auto) 72.0 % 09/23/24 12:45 Lymph % (Auto) 17.4 % 09/23/24 12:45 Windham % (Auto) 8.4 % 09/23/24 12:45 Eos % (Auto) 1.2 % 09/23/24 12:45 Baso % (Auto) 0.5 % 09/23/24 12:45 Neut # (Auto) 6.03 10^3/uL (1.8-7.7) 09/23/24 12:45 Lymph # (Auto) 1.5 10^3/uL (0.8-4.8) 09/23/24 12:45 Windham # (Auto) 0.7 10^3/uL (0.2-0.9) 09/23/24 12:45 Eos # (Auto) 0.1 10^3/uL (0.0-0.8) 09/23/24 12:45 Baso # (Auto) 0.0 10^3/uL (0.0-0.1) 09/23/24 12:45 Nucleated RBC % (auto) 0 % 09/23/24 12:45 Nucleated RBCs # 0.0 /100WBC 09/23/24 12:45 All radiology interpretation(s) finalized by discharge Discharge Plan Discharge Patient Disposition: Placed in Observation Clinical Impression: Closed trimalleolar fracture Coding Level of Care Code ED Order Entry Administrator for 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
--- NOTE | 2024-09-23 11:52 | XR_ITS ---
WS: [id number] Exam: XR ankle RT min 3V* [id number] Date/Time of Exam: 09/23/2024 11:54 AM Reason For Exam: Trauma deformity There is trimalleolar fracture of the RIGHT ankle with anterior dislocation of the tibia upon the talar dome. Displaced distal fibular fracture noted. Displaced transverse medial malleolar fracture and posterior tibial shell fracture. Soft tissue swelling and deformity about the ankle. XR/XR ankle RT min 3V* [id number] IMPRESSION: 1. Trimalleolar fracture with anterior dislocation of the tibia upon the talar dome.
--- NOTE | 2024-09-23 12:15 | ECG_ITS ---
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 Measurements Intervals Chunky Rate: 69 P: 37 TX: 182 QRS: 61 QRSD: 99 T: 52 QT: 440 QTc: 472 Interpretive Statements SINUS RHYTHM Early repolarization changes Compared to ECG 03/31/2024 16:42:19 Atrial-paced complex(es) or rhythm no longer present Electronically Signed On 09-23-2024 17:14:27 CDT by Suzy Wyman M.D. [email or web address]
[2024-09-23] MEDS: fentaNYL 50 mcg/mL INJ 2mL IVP ×2 (12:23→12:43)
[2024-09-23] MEDS: etomidate 2 mg/mL INJ SDV 10 mL 10 MG IVP (12:35)
--- NOTE | 2024-09-23 12:48 | XRR_ITS ---
PROCEDURE INFORMATION: Exam: XR Right Ankle Exam date and time: 09/23/2024 12:31 PM Age: 49 years old Clinical indication: Screening exam; Post RT ankle reduction; HX of liver cancer TECHNIQUE: Imaging protocol: Radiologic exam of the right ankle. Views: 1 or 2 views. COMPARISON: CR XR ankle RT min 3V* [id number] 09/23/2024 11:55 AM FINDINGS: Bones/joints: Minimally displaced trimalleolar fracture. Alignment improved since the most recent prior study. Disruption of the ankle mortise best visualized on lateral view. Mild calcaneal spurring. Soft tissues: Normal. XR/XR ankle RT 2V [id number] IMPRESSION: Fracture with ligamentous injury.
[2024-09-23 13:09] LABS: Hematocrit 43.0 % (36-47); Hemoglobin 14.50 g/dL (11.27-16.99); Mean Corpuscular HGB Conc 33.7 g/dL (30-55); Mean Corpuscular Hemoglobin 29.2 pg (27-33); Mean Corpuscular Volume 86.7 fl (85-98); Nucleated Red Blood Cells % 0 %; Platelet Count 157 10^3/cmm (157-399); Red Blood Count 4.96 10^6/uL (3.85-5.65); White Blood Count 8.37 10^3/uL (3.29-11.43)
[2024-09-23] MEDS: morphine 4 mg/mL SDV 1 mL 2 MG IVP (13:23)
--- NOTE | 2024-09-23 13:33 | PM.HP ---
Providers/Chief Complaint Primary Care Provider: Francisco Mckinley DO Chief Complaint: Fall, Lt Ankle pain History of Present Illness Maribell Foreman is a 49 year old female with a past medical history of type 2 diabetes, history of liver cirrhosis, history of infective endocarditis, history of pacemaker implantation, patient is on hospice on morphine ER 100 mg 3 times daily as needed, with Dilaudid 2 mg twice daily as needed, who presents [facility] for a fall. Patient tells me that today she was coming on the bathroom, and she twisted her ankle and fell on her right ankle, she is status post fracture/dislocation reduction of the emergency room, fracture is not stable or able to reduce it, podiatry service has been consulted, plan on surgical intervention Review of Systems Const: Denies: fever(s) Card: Denies: chest pain Resp: Denies: dyspnea GI: Denies: abdominal pain Neuro: Denies: headache(s) Medications/Allergies Home Medications ?Medication ?Instructions ?Recorded ?Confirmed ?Last Taken ?Type tenofovir disoproxil fumarate 300 300 mg PO DAILY 04/27/23 09/23/24 09/23/24 History mg tablet (Viread) lactulose 10 gram/15 mL oral 90 ml PO TID 30 days #8,100 mL 08/19/23 09/23/24 09/23/24 Rx solution levothyroxine 50 mcg tablet 50 mcg PO QAM 30 days #30 tabs 08/19/23 09/23/24 09/23/24 Rx hvypbk-mrkplsni-xpadjri 1 cap PO TID 30 days #30 caps 08/19/23 09/23/24 09/23/24 Rx 3,000-9,500-15,000 unit capsule, delayed rel (Creon) tizanidine 4 mg tablet 4 mg PO Q6H PRN Spasms 10 days #30 08/19/23 09/23/24 10/19/23 Rx tabs albuterol sulfate 90 mcg/actuation 2 puff inhalation Q6H PRN 10/19/23 09/23/24 10/19/23 History aerosol inhaler (Ventolin HFA) Shortness Of Breath amitriptyline 75 mg tablet 75 mg PO BEDTIME 10/19/23 09/23/24 09/22/24 19:00 History doxepin 10 mg capsule 10 mg PO BEDTIME PRN Sleep 10/19/23 09/23/24 09/22/24 19:00 History levalbuterol tartrate 45 2 inh inhalation Q6H PRN Shortness 10/19/23 09/23/24 Unknown History mcg/actuation aerosol inhaler Of Breath (Xopenex HFA) cholecalciferol (vitamin D3) 1,250 50,000 unit PO Q7D 01/17/24 09/23/24 Unknown History mcg (50,000 unit) capsule gabapentin 300 mg capsule 600 mg PO BID 01/17/24 09/23/24 09/23/24 History rifaximin 550 mg tablet (Xifaxan) 550 mg PO BID 01/17/24 09/23/24 09/23/24 History insulin glargine 100 unit/mL See Rx Instructions .Route .COMPLEX 09/23/24 09/23/24 09/23/24 07:00 History subcutaneous solution (Lantus U-100 Insulin) ipratropium 0.5 mg-albuterol 3 mg See Rx Instructions .Route .COMPLEX 09/23/24 09/23/24 Unknown History (2.5 mg base)/3 mL nebulization soln isosorbide mononitrate 60 mg 60 mg PO DAILY 09/23/24 09/23/24 09/23/24 History tablet,extended release 24 hr morphine 100 mg tablet,extended 100 mg PO Q8H 09/23/24 09/23/24 09/23/24 History release (MS Contin) nicotine 7 mg/24 hr daily 1 patch transdermal Q24H 09/23/24 09/23/24 Unknown History transdermal patch nifedipine 30 mg tablet,extended 30 mg PO DAILY 09/23/24 09/23/24 09/23/24 History release 24 hr (Procardia XL) ondansetron 4 mg disintegrating 4 mg PO Q6H PRN Nausea And Vomiting 09/23/24 09/23/24 Unknown History tablet spironolactone 100 mg tablet 100 mg PO DAILY 09/23/24 09/23/24 09/23/24 History (Aldactone) Allergies Allergy/AdvReac Type Severity Reaction Status Date / Time codeine Allergy Unknown Unknown Verified 09/18/24 08:02 aspirin Allergy ALGY-Hives Verified 09/18/24 08:02 diphenhydramine (From Allergy ADR-Muscle Verified 09/18/24 08:02 Benadryl) Pain Sulfa (Sulfonamide Allergy ALGY-Swell Verified 09/18/24 08:02 Antibiotics) Lip/Tongue/Throat PFSH Acute PFSH: Medical History (Updated 09/23/24 @ 15:19 by Neftali Barrera MD) Hypokalemia 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 Pain management contract signed Metabolic encephalopathy SSS (sick sinus syndrome) Presence of permanent cardiac pacemaker Seizure disorder Tobacco dependency Hypothyroidism Accidental fentanyl overdose Overdose Cardiac arrest COPD (chronic obstructive pulmonary disease) Chronically on 3 L of oxygen Smoker Thrombocytopenia Bilateral pulmonary embolism Hepatitis B Pulmonary embolism Nicotine dependence, cigarettes, with unspecified nicotine-induced disorders Chronic hepatitis B Chronic abdominal pain Chronic hip pain Leg cramps Stomach cancer Pelvic inflammatory disease Diabetes mellitus Hypertension Encephalopathy Cirrhosis Gastroesophageal reflux GI bleeding Surgical History H/O right hemicolectomy History of right hemicolectomy H/O tubal ligation History of laparotomy History of hysterectomy Family History Mother Diabetes Father CAD (coronary artery disease) Other Cancer Social History Smoking and tobacco/nicotine status: former use of tobacco/nicotine (quit 2022) Quit status (tobacco/nicotine): has quit using Year quit tobacco: 2020 Former quit date comment: 2ppd x 26 year Hx Alcohol intake: never Substance/Drug Use: never Vitals/I&O/Wt Last Vital Signs Temp 98.2 F 09/23/24 11:40 Pulse 86 09/23/24 11:40 Resp 17 09/23/24 13:23 BP 93/66 09/23/24 11:40 Pulse Ox 98 09/23/24 13:23 O2 Del Method Nasal Cannula 09/23/24 11:40 O2 Flow Rate 4 09/23/24 11:40 Weight last 48 hrs Weight 128.367 kg Physical Exam Const: COMMON NORMALS: no acute distress and patient oriented x3 HENMT: COMMON NORMALS: normocephalic HEAD & SCALP: normocephalic Neck/C-Spine: COMMON NORMALS: no JVD Resp: COMMON NORMALS: normal respiratory effort, No retractions, No use of accessory muscles and clear to auscultation bilaterally AUSCULTATION: clear to auscultation bilaterally Cardio: COMMON NORMALS: regular rate, regular rhythm, S1 normal heart sound present and S2 normal heart sound present RATE: regular rate RHYTHM: regular rhythm HEART SOUNDS: S1 normal heart sound present and S2 normal heart sound present GI: COMMON NORMALS: Normal to inspection, nondistended, normoactive bowel sounds present, Soft to palpation and non-tender Extremity: COMMON NORMALS: no calf tenderness and no pedal edema Neuro: COMMON NORMALS: patient oriented x3, CN's II-XII intact bilaterally and moves all extremities Psych: COMMON NORMALS: mental status grossly normal Data 09/23/24 12:45 09/23/24 12:34 A&P Assessment and plan 1. Closed trimalleolar fracture: 2. Bacteremia due to Enterococcus: 3. Endocarditis: 4. SSS (sick sinus syndrome): 5. Hospice care patient: Plan: Right trimalleolar fracture with anterior dislocation of the tibia up on the talar dome Plan - Nonweightbearing - Plan on surgical invention by podiatry service History of endocarditis with bacteremia secondary to Enterococcus - She tells me she has never had surgical intervention for this - She spent 4 months at [place] - She has never had repeat blood cultures, but was supposed to History of liver cirrhosis History of type 2 diabetes Hospice patient - For history of liver cirrhosis? - She is on morphine 100 mg p.o. every 8 hours as needed - She is on Dilaudid 2 mg twice daily as needed, which I will stop switch to Dilaudid 1 mg IV push every 4 hours as needed due to severe pain Patient reports being full code Lovenox for due to prophylaxis PDMP PDMP Reviewed: Last Reviewed 09/23/24 13:37 by Neftali Barrera MD Attestations Medical Necessity Statement*: Patient requires hospitalization for right trimalleolar fracture requiring surgical invention Diagnoses Closed trimalleolar fracture S82.853A Bacteremia due to Enterococcus R78.81; B95.2 Endocarditis I38 SSS (sick sinus syndrome) I49.5 Hospice care patient Z51.5
[2024-09-23 13:38] LABS: Alanine Aminotransferase 15 U/L (0-33); Albumin Level 3.6 g/dL (3.5-5.2); Alkaline Phosphatase 95 U/L (35-105); Anion Gap 19.6 (5-19); Aspartate Amino Transferase 33 U/L (0-32); Blood Urea Nitrogen 11 mg/dL (6-20); Calcium 8.8 mg/dL (8.5-10.5); Carbon Dioxide 19 mmol/L (22-29); Chloride 102 mmol/L (98-107); Creatinine Clr Calc Pharmacy 168.5954; Globulin 4.0 g/dL (1.3-4.6); Glucose 118 mg/dL (65-115); Osmolality Calculated 282 mOsm/kg (285-295); Potassium 4.6 mmol/L (3.5-5.1); Sodium 136 mmol/L (136-145); Total Protein 7.6 g/dL (6.6-8.7)
--- NOTE | 2024-09-23 13:43 | PC.NURSE ---
96 hr rights reviewed with pt @1300 with assistance of [facility] district fire management officer Andrew Moreno Education attempted to be reviewed with pt. Pt would not verbalize understanding to hold parameters. Pt copy was left with pt @bedside. Pt would not verbalize needs or wants at this time.
[2024-09-23 14:10] LABS: NT Pro B Type Natriuretic Pept 384 pg/mL (0-125); Procalcitonin 0.73 ng/mL (0-0.5)
[2024-09-23 14:20] LABS: INR 1.07 (0.8-1.2); Prothrombin Time 14.70 SECONDS (12.1-14.9)
[2024-09-23 14:22] LABS: Partial Thromboplastin Time 26.6 SECONDS (23.9-36.7)
[2024-09-23 14:26] LABS: Lactic Sepsis W/Reflex 1.0 mmol/L (0.5-2.2)
--- NOTE | 2024-09-23 15:33 | PC.PHAR ---
Patient uses [facility] for her medication and fills at [facility] . [facility] sent a fax with current medications.
[2024-09-23 16:41] LABS: Estmated Average Glucose 123; Hemoglobin A1C 5.9 % (4.0-6.0)
[2024-09-23 16:44] LABS: Cholesterol 176 mg/dL (0-200); HDL Cholesterol 45 mg/dL (60-100); Thyroid Stimulating Hormone 1.34 uIU/mL (0.27-4.20); Triglycerides 101 mg/dL (0-150)
[2024-09-23] MEDS: HYDROmorphone tab 2 MG TABLET 4 MG PO (16:50)
[2024-09-23] MEDS: pantoprazole 40 mg SDV IVP (16:52)
--- NOTE | 2024-09-23 16:58 | P.CONIM_ITS ---
Providers/Reason For Consult 2 Consulting Physician/Specialty*: Dr. Meliton Ellison DPM/ Podiatry Reason for Consult*: Right trimalleolar ankle fracture Attending Physician: Neftali Barrera MD Primary Care Provider: Francisco Mckinley DO History of Present Illness History of Present Illness Patient is a 49-year-old female who presented to the emergency department today with complaint of right ankle pain. Patient states that she was coming out of the bathroom when she slipped and fell and twisted her ankle. She presented to the emergency department where she was found to have a dislocated trimalleolar ankle fracture of the right ankle. Patient underwent multiple attempts at closed reduction. Right ankle was reduced to a more appropriate anatomic position. However, this was unable to be fully reduced due to contracture of patient's Achilles tendon. Podiatry was consulted to evaluate and provide further recommendations. Patient has a past medical history significant for type 2 diabetes, liver cirrhosis, infective endocarditis, history of pacemaker implantation. Patient is also currently on hospice. Review of Systems 2 General: Reports: 10 or more systems reviewed and unremarkable except in HPI and below Const: Denies: fever(s), chills or fatigue Eyes: Denies: change in vision ENMT: Denies: sinus pain Card: Denies: chest pain, palpitations or lightheadedness Resp: Denies: dyspnea GI: Denies: abdominal pain, nausea or vomiting Musc: Reports: extremity pain, extremity swelling and limited range of motion; Denies: neck pain or back pain Skin/Breast: Reports: skin swelling Neuro: Denies: numbness in extremities Medications/Allergies Home Medications ?Medication ?Instructions ?Recorded ?Confirmed ?Last Taken ?Type tenofovir disoproxil fumarate 300 300 mg PO DAILY 12/1009/23/24 09/23/24 History mg tablet (Viread) lactulose 10 gram/15 mL oral 90 ml PO TID 30 days #8,1 00 mL 08/19/23 09/23/24 09/23/24 Rx solution levothyroxine 50 mcg tablet 50 mcg PO QAM 30 days #30 tabs 08/19/23 09/23/24 09/23/24 Rx fizqzm-fupyfwuz-wgcptgw 1 cap PO TID 30 days #30 cap s 08/19/23 09/23/24 09/23/24 Rx 3,000-9,500-15,000 unit capsule, delayed rel (Creon) tizanidine 4 mg tablet 4 mg PO Q6H PRN Spasms 10 da ys #30 08/19/23 09/23/24 10/19/23 Rx tabs albuterol sulfate 90 mcg/actuation 2 puff inhalation Q 6H PRN 10/19/23 09/23/24 10/19/23 History aerosol inhaler (Ventolin HFA) Shortness Of Breath amitriptyline 75 mg tablet 75 mg PO BEDTIME 10/19/23 0 09/23/24 09/22/24 19:00 History doxepin 10 mg capsule 10 mg PO BEDTIME PRN Sleep 0 10/19/23 09/23/24 09/22/24 19:00 History levalbuterol tartrate 45 2 inh inhalation Q6H PRN Nitza rtness 10/19/23 09/23/24 Unknown History mcg/actuation aerosol inhaler Of Breath (Xopenex HFA) cholecalciferol (vitamin D3) 1,250 50,000 unit PO Q7D 01/17/24 09/23/24 Unknown History mcg (50,000 unit) capsule gabapentin 300 mg capsule 600 mg PO BID 01/17/2409/2309/23/24 History rifaximin 550 mg tablet (Xifaxan) 550 mg PO BID 09/23/24 09/23/24 History insulin glargine 100 unit/mL See Rx Instructions .Rout e .COMPLEX 09/23/24 09/23/24 09/23/24 07:00 History subcutaneous solution (Lantus U-100 Insulin) ipratropium 0.5 mg-albuterol 3 mg See Rx Instructions .Route .COMPLEX 09/23/24 09/23/24 Unknown History (2.5 mg base)/3 mL nebulization soln isosorbide mononitrate 60 mg 60 mg PO DAILY 09/23/24 0 09/23/24 09/23/24 History tablet,extended release 24 hr morphine 100 mg tablet,extended 100 mg PO Q8H 09/23/24 09/23/24 09/23/24 History release (MS Contin) nicotine 7 mg/24 hr daily 1 patch transdermal Q24H 11/1009/23/24 Unknown History transdermal patch nifedipine 30 mg tablet,extended 30 mg PO DAILY 09/23/24 09/23/24 History release 24 hr (Procardia XL) ondansetron 4 mg disintegrating 4 mg PO Q6H PRN Nausea And Vomiting 09/23/24 09/23/24 Unknown History tablet spironolactone 100 mg tablet 100 mg PO DAILY 09/23/24 09/23/24 09/23/24 History (Aldactone) Allergies Allergy/AdvReac Type Severity Reaction Status Date / Time codeine Allergy Unknown Unknown Verified 09/18/24 08:02 aspirin Allergy ALGY-Hives Verified 09/18/24 08:02 diphenhydramine (From Allergy ADR-Muscle Verified 09/18/24 08:02 Benadryl) Pain Sulfa (Sulfonamide Allergy ALGY-Swell Verified 09/18/24 08:02 Antibiotics) Lip/Tongue/Throat Current Medications Generic Name Dose Route Start Last Admin Trade Name Freq PRN Reason Stop Dose Admin Gabapentin 600 mg 09/23/24 18:00 09/23/24 16:52 Gabapentin 300 Mg Capsule PO 600 mg BID JOJO Administration Hydromorphone HCl 4 mg 09/23/24 16:07 09/23/24 16:50 Hydromorphone Tab 2 Mg Tablet PO 4 mg Q12H PRN Administration BREAKTHROUGH PAIN Sodium Chloride 1,000 mls @ 100 mls/hr 09/23/24 16:07 09/23/24 16:53 Sodium Chloride 0.9% IV 100 mls/hr .Q10H JOJO Administration Pantoprazole Sodium 40 mg 09/23/24 16:07 09/23/24 16:52 Pantoprazole 40 Mg Sdv IVP 40 mg Q24H JJOO Administration PFSH Acute 2 PFSH: Medical History (Updated 09/23/24 @ 15:19 by Neftali Barrera MD) Hypokalemia 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 Pain management contract signed Metabolic encephalopathy SSS (sick sinus syndrome) Presence of permanent cardiac pacemaker Seizure disorder Tobacco dependency Hypothyroidism Accidental fentanyl overdose Overdose Cardiac arrest COPD (chronic obstructive pulmonary disease) Chronically on 3 L of oxygen Smoker Thrombocytopenia Bilateral pulmonary embolism Hepatitis B Pulmonary embolism Nicotine dependence, cigarettes, with unspecified nicotine-induced disorders Chronic hepatitis B Chronic abdominal pain Chronic hip pain Leg cramps Stomach cancer Pelvic inflammatory disease Diabetes mellitus Hypertension Encephalopathy Cirrhosis Gastroesophageal reflux GI bleeding Surgical History H/O right hemicolectomy History of right hemicolectomy H/O tubal ligation History of laparotomy History of hysterectomy Family History Mother Diabetes Father CAD (coronary artery disease) Other Cancer Social History Smoking and tobacco/nicotine status: former use of tobacco/nicotine (quit 2022) Quit status (tobacco/nicotine): has quit using Year quit tobacco: 2020 Former quit date comment: 2ppd x 26 year Hx Alcohol intake: never Substance/Drug Use: never Vitals/I&O/Wt Last Vital Signs Temp 98.4 F 09/23/24 16:07 Pulse 80 09/23/24 16:07 Resp 22 H 09/23/24 16:07 BP 137/87 09/23/24 16:07 Pulse Ox 95 09/23/24 16:37 O2 Del Method Nasal Cannula 09/23/24 16:37 O2 Flow Rate 4 09/23/24 16:37 09/23/24 09/23/24 09/23/24 06:59 14:59 22:59 Intake Total 1000 / 1000 Balance 1000 / 1000 Weight last 48 hrs Weight 283 lb Physical Exam 2 Narrative: BELOW IS A FOCUSED LOWER EXTREMITY EXAM GENERAL: A&O x 3 VASCULAR: DP/PT pulses palpable 2/4 with CFT intact, <3seconds to distal digits DERMATOLOGICAL: Skin turgor and temperature is within normal limits. No interdigital maceration noted. MUSCULOSKELETAL: Full musculoskeletal exam deferred secondary to posttraumatic state. Splint intact right lower extremity. NEUROLOGICAL: Neurological sensation to the affected foot and ankle is present through L4-S1 dermatomes with no hyper/hypoesthesias, negative Tinel or Valleix's sign IMAGING: Three-view x-rays of the right ankle interpreted by me show fracture dislocation of right ankle consistent with trimalleolar ankle fracture. Postreduction films show near anatomic alignment. Data 09/23/24 12:45 09/23/24 12:34 Micro: Microbiology 09/23/24 13:55 Blood Culture - Preliminary Blood SPECIMEN COLLECTED 09/23/24 13:57 Blood Culture - Preliminary Blood SPECIMEN COLLECTED A&P Assessment and plan 1. Closed trimalleolar fracture: 2. Hospice care patient: Plan: - Right trimalleolar ankle fracture closed -Labs and vitals reviewed -Diet: N.p.o. at midnight -Lengthy discussion was had with patient in regards to treatment for her right ankle fracture. -Given the patient's complex medical history?including active hospice care, infective endocarditis, cirrhosis of the liver, uncontrolled diabetes, a history of substance abuse, prior homelessness, and the presence of an implanted cardiac pacemaker?pursuing open reduction and internal fixation for the right trimalleolar ankle fracture presents significant perioperative risks that outweigh potential benefits. In light of these factors, the most appropriate course of action is closed reduction in the operating room under monitored anesthesia care, followed by application of a well-molded short leg cast to achieve and maintain alignment as comfortably as possible. This approach minimizes surgical risk, avoids the physiologic burden of general anesthesia, and aligns with the patient?s hospice-directed goals of care by focusing on pain control, limb positioning, and quality of life rather than aggressive intervention. Patient understands and is amenable to treatment plan. -Pain Mgmt: Per primary team -Weight bearing: Nonweightbearing to right lower extremity -Dressings: Splint to be left clean, dry, intact -Discharge plan: Patient will be okay to discharge home from podiatry standpoint once pain is well-controlled and patient has undergone right ankle procedure. Patient will remain nonweightbearing at discharge. ANESTHESIA: MAC with pop block PDMP PDMP Reviewed: Not Reviewed Coding Level of Care Code Acute Code for Chg Fwd Diagnoses Closed trimalleolar fracture S82.853A Hospice care patient Z51.5
[2024-09-23] MEDS: ondansetron 2 mg/ML SDV 2 mL 4 MG IVP (17:00)
[2024-09-23] MEDS: morphine ER (12 HR) 100 mg Tablet PO (17:39)
[2024-09-23] MEDS: lipase-protease-amylase Capsule 1 EACH PO (17:51)
[2024-09-23] MEDS: lactulose oral liq 20 gm/30 mL UDC 60 GM PO (17:51)
[2024-09-24] VITALS (19 sets, daily range): BP systolic 86–137; BP diastolic 51–87; PULSE 71–119; RESP 16–20; TEMP 36.1–36.8; O2SAT 90–100
[2024-09-24] MEDS: morphine ER (12 HR) 100 mg Tablet PO ×3 (00:42→17:39)
[2024-09-24 04:29] LABS: Hematocrit 40.4 % (36-47); Hemoglobin 13.30 g/dL (11.27-16.99); Mean Corpuscular HGB Conc 32.9 g/dL (30-55); Mean Corpuscular Hemoglobin 29.1 pg (27-33); Mean Corpuscular Volume 88.4 fl (85-98); Nucleated Red Blood Cells % 0 %; Platelet Count 156 10^3/cmm (157-399); Red Blood Count 4.57 10^6/uL (3.85-5.65); White Blood Count 9.07 10^3/uL (3.29-11.43)
[2024-09-24 04:48] LABS: Alanine Aminotransferase 12 U/L (0-33); Albumin Level 3.3 g/dL (3.5-5.2); Alkaline Phosphatase 87 U/L (35-105); Anion Gap 15.7 (5-19); Aspartate Amino Transferase 26 U/L (0-32); Blood Urea Nitrogen 13 mg/dL (6-20); Calcium 8.6 mg/dL (8.5-10.5); Carbon Dioxide 22 mmol/L (22-29); Chloride 104 mmol/L (98-107); Creatinine Clr Calc Pharmacy 100.6175; Globulin 4.3 g/dL (1.3-4.6); Glucose 104 mg/dL (65-115); Magnesium 1.7 mg/dL (1.7-2.3); Osmolality Calculated 286 mOsm/kg (285-295); Potassium 3.7 mmol/L (3.5-5.1); Sodium 138 mmol/L (136-145); Total Protein 7.6 g/dL (6.6-8.7)
[2024-09-24] MEDS: HYDROmorphone tab 2 MG TABLET 4 MG PO ×2 (05:20→17:11)
[2024-09-24 08:06] LABS: Glucose Urine UA Negative (Normal); Nitrate Urine Negative (Negative); Specific Gravity, Urine 1.014 (1.005-1.030)
[2024-09-24 08:10] LABS: Add Urine Microscopic? YES
[2024-09-24 08:28] LABS: UA Slide Review UA Slide Review Perf
[2024-09-24] MEDS: lipase-protease-amylase Capsule 1 EACH PO ×2 (09:17→17:43)
--- NOTE | 2024-09-24 11:39 | SUR.PREOP ---
1135-timeout completed at bedside in pre-op. popitetial block was performed by dr sigala using 20ml 2% lidocaine, 10ml to adductor.
--- NOTE | 2024-09-24 11:51 | P.ANESASSM_ITS ---
Pre-Anesthetic Assessment Height/Weight: Height 1.83 m Weight 125.191 kg Temp Pulse Resp BP Pulse Ox O2 Del Method O2 Flow Rate 98.3 F 71 20 H 107/73 94 Nasal Cannula 1 09/24/24 08:00 09/24/24 08:21 09/24/24 09:21 09/24/24 08:00 09/24/24 09:21 09/24/24 08:21 09/24/24 08:21 Operation Date: 09/24/24 12:00 Proposed Procedures p Closed Reduction Foot(Right) - Meliton Ellison DPM s Application External Fixator Ankle/Foot(Right) - Meliton Ellison DPM Familial anesthetic complications: None Was Beta Jadon taken within 24 hours: N/A Was Clonidine taken within 24 hours: N/A Last intake: > 8 hrs Social Tobacco and No alcohol Exam alert, oriented x 3, clear to auscultation bilaterally and regular rate & rhythm Airway Mallampati: Class III CV/HEM pacemaker Infective endocarditis SSS Hepatic Cirrhosis (no ascites) Metabolic Diabetes Mellitus and Morbid Obesity Anesthetic Plan ASA status: 3 Anesthesia: Regional (specify below) Risk of > 500 ml blood loss (7ml/kg in children): No Medications/Allergies Home Medications ?Medication ?Instructions ?Recorded ?Confirmed ?Last Taken ?Type tenofovir disoproxil fumarate 300 300 mg PO DAILY 12/1009/23/24 09/23/24 History mg tablet (Viread) lactulose 10 gram/15 mL oral 90 ml PO TID 30 days #8,1 00 mL 08/19/23 09/23/24 09/23/24 Rx solution levothyroxine 50 mcg tablet 50 mcg PO QAM 30 days #30 tabs 08/19/23 09/23/24 09/23/24 Rx gqosnq-xrozkpxh-nvcoeyw 1 cap PO TID 30 days #30 cap s 08/19/23 09/23/24 09/23/24 Rx 3,000-9,500-15,000 unit capsule, delayed rel (Creon) tizanidine 4 mg tablet 4 mg PO Q6H PRN Spasms 10 da ys #30 08/19/23 09/23/24 10/19/23 Rx tabs albuterol sulfate 90 mcg/actuation 2 puff inhalation Q 6H PRN 10/19/23 09/23/24 10/19/23 History aerosol inhaler (Ventolin HFA) Shortness Of Breath amitriptyline 75 mg tablet 75 mg PO BEDTIME 10/19/23 0 09/23/24 09/22/24 19:00 History doxepin 10 mg capsule 10 mg PO BEDTIME PRN Sleep 0 10/19/23 09/23/24 09/22/24 19:00 History levalbuterol tartrate 45 2 inh inhalation Q6H PRN Nitza rtness 10/19/23 09/23/24 Unknown History mcg/actuation aerosol inhaler Of Breath (Xopenex HFA) cholecalciferol (vitamin D3) 1,250 50,000 unit PO Q7D 01/17/24 09/23/24 Unknown History mcg (50,000 unit) capsule gabapentin 300 mg capsule 600 mg PO BID 01/17/2409/2309/23/24 History rifaximin 550 mg tablet (Xifaxan) 550 mg PO BID 09/23/24 09/23/24 History insulin glargine 100 unit/mL See Rx Instructions .Rout e .COMPLEX 09/23/24 09/23/24 09/23/24 07:00 History subcutaneous solution (Lantus U-100 Insulin) ipratropium 0.5 mg-albuterol 3 mg See Rx Instructions .Route .COMPLEX 09/23/24 09/23/24 Unknown History (2.5 mg base)/3 mL nebulization soln isosorbide mononitrate 60 mg 60 mg PO DAILY 09/23/24 0 09/23/24 09/23/24 History tablet,extended release 24 hr morphine 100 mg tablet,extended 100 mg PO Q8H 09/23/24 09/23/24 09/23/24 History release (MS Contin) nicotine 7 mg/24 hr daily 1 patch transdermal Q24H 11/1009/23/24 Unknown History transdermal patch nifedipine 30 mg tablet,extended 30 mg PO DAILY 09/23/24 09/23/24 History release 24 hr (Procardia XL) ondansetron 4 mg disintegrating 4 mg PO Q6H PRN Nausea And Vomiting 09/23/24 09/23/24 Unknown History tablet spironolactone 100 mg tablet 100 mg PO DAILY 09/23/24 09/23/2409/23/25 History (Aldactone) Allergies Allergy/AdvReac Type Severity Reaction Status Date / Time codeine Allergy Unknown Unknown Verified 09/18/24 08:02 aspirin Allergy ALGY-Hives Verified 09/18/24 08:02 diphenhydramine (From Allergy ADR-Muscle Verified 09/18/24 08:02 Benadryl) Pain Sulfa (Sulfonamide Allergy ALGY-Swell Verified 09/18/24 08:02 Antibiotics) Lip/Tongue/Throat Current Medications Generic Name Dose Route Start Last Admin Trade Name Freq PRN Reason Stop Dose Admin Amitriptyline HCl 75 mg 09/23/24 21:00 09/23/24 20:45 Amitriptyline 25 Mg Tablet PO 75 mg On Hold: 09/24/24 10:40 BEDTIME JOJO Administration Comment: Order held by Process Transfer Lipase/Protease/Amylase 1 each 09/23/24 18:00 09/24/24 09:17 Emjmlz-Gquarpeq-Wyqfbid Capsule PO 1 each On Hold: 09/24/24 10:40 TIDWM JOJO Administration Comment: Order held by Process Transfer Enoxaparin Sodium 40 mg 09/23/24 16:07 09/23/24 17:50 Enoxaparin 40 Mg/0.4 Ml Syringe SUBCUT 40 mg On Hold: 09/24/24 10:40 Q24H JOJO Administration Comment: Order held by Process Transfer Gabapentin 600 mg 09/23/24 18:00 09/24/24 09:17 Gabapentin 300 Mg Capsule PO 600 mg On Hold: 09/24/24 10:40 BID JOJO Administration Comment: Order held by Process Transfer Hydromorphone HCl 4 mg 09/23/24 16:07 09/24/24 05:20 Hydromorphone Tab 2 Mg Tablet PO 4 mg On Hold: 09/24/24 10:40 Q12H PRN Administration Comment: Order held by Process BREAKTHROUGH PAIN Transfer Sodium Chloride 1,000 mls @ 100 mls/hr 09/23/24 16:07 09/24/24 02:56 Sodium Chloride 0.9% IV 100 mls/hr On Hold: 09/24/24 10:40 .Q10H JOJO Administration Comment: Order held by Process Transfer Sodium Chloride 1,000 mls @ 30 mls/hr 09/24/24 11:30 09/24/24 11:27 Sodium Chloride 0.9% IV 09/25/24 11:29 30 mls/hr .Q24H JOJO Administration Insulin Human Lispro 0 unit 09/23/24 18:00 09/24/24 07:21 Insulin Lispro 100 Unit/1 Ml SUBCUT Not Given On Hold: 09/24/24 10:40 WM&BEDTIME JOJO Comment: Order held by Process Protocol Transfer Lactulose 60 gm 09/23/24 16:07 09/24/24 09:23 Lactulose Oral Liq 20 Gm/30 Ml Udc PO Not Given On Hold: 09/24/24 10:40 TID JOJO Comment: Order held by Process Transfer Levetiracetam 750 mg 09/23/24 18:00 09/24/24 09:17 Levetiracetam 500 Mg Tablet PO 750 mg On Hold: 09/24/24 10:40 BID JOJO Administration Comment: Order held by Process Transfer Levothyroxine Sodium 50 mcg 09/24/24 06:00 09/24/24 05:20 Levothyroxine 50 Mcg Tablet PO 50 mcg On Hold: 09/24/24 10:40 QAM JOJO Administration Comment: Order held by Process Transfer Morphine Sulfate 100 mg 09/23/24 17:30 09/24/24 09:21 Morphine Er (12 Hr) 100 Mg Tablet PO 100 mg On Hold: 09/24/24 10:40 Q8H JOJO Administration Comment: Order held by Process Transfer Ondansetron HCl 4 mg 09/23/24 16:07 09/23/24 17:00 Ondansetron 2 Mg/Ml Sdv 2 Ml IVP 4 mg On Hold: 09/24/24 10:40 Q6H PRN Administration Comment: Order held by Process NAUSEA AND VOMITING Transfer Pantoprazole Sodium 40 mg 09/23/24 16:07 09/23/24 16:52 Pantoprazole 40 Mg Sdv IVP 40 mg On Hold: 09/24/24 10:40 Q24H JOJO Administration Comment: Order held by Process Transfer Potassium Chloride 20 meq 09/24/24 09:00 09/24/24 09:17 Potassium Chloride Er 20 Meq Tablet PO 20 meq On Hold: 09/24/24 10:40 DAILY JOJO Administration Comment: Order held by Process Transfer Rifaximin 600 mg 09/23/24 18:00 09/24/24 09:17 Rifaximin 200 Mg Tablet PO 600 mg On Hold: 09/24/24 10:40 BID JOJO Administration Comment: Order held by Process Transfer Tizanidine HCl 4 mg 09/23/24 20:15 09/24/24 03:00 Tizanidine 4 Mg Tablet PO 4 mg On Hold: 09/24/24 10:40 Q6H PRN Administration Comment: Order held by Process SPASMS Transfer [facility] Anesthesia Medical History (Updated 09/23/24 @ 15:19 by Neftali Barrera MD) Hypokalemia 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 Pain management contract signed Metabolic encephalopathy SSS (sick sinus syndrome) Presence of permanent cardiac pacemaker Seizure disorder Tobacco dependency Hypothyroidism Accidental fentanyl overdose Overdose Cardiac arrest COPD (chronic obstructive pulmonary disease) Chronically on 3 L of oxygen Smoker Thrombocytopenia Bilateral pulmonary embolism Hepatitis B Pulmonary embolism Nicotine dependence, cigarettes, with unspecified nicotine-induced disorders Chronic hepatitis B Chronic abdominal pain Chronic hip pain Leg cramps Stomach cancer Pelvic inflammatory disease Diabetes mellitus Hypertension Encephalopathy Cirrhosis Gastroesophageal reflux GI bleeding Surgical History H/O right hemicolectomy History of right hemicolectomy H/O tubal ligation History of laparotomy History of hysterectomy Family History Mother Diabetes Father CAD (coronary artery disease) Other Cancer Social History Smoking and tobacco/nicotine status: former use of tobacco/nicotine (quit 2022) Quit status (tobacco/nicotine): has quit using Year quit tobacco: 2020 Former quit date comment: 2ppd x 26 year Hx Alcohol intake: never Substance/Drug Use: never Data Anesthesia 09/24/24 04:13 09/24/24 04:13 Short CBC 09/23/24 09/24/24 Range/Units 12:45 04:13 WBC 8.37 9.07 (3.29-11.43) 10^3/uL Hgb 14.50 13.30 (11.27-16.99) g/dL Hct 43.0 40.4 (36-47) % MCV 86.7 88.4 (85-98) fl Plt Count 157 156 L (157-399) 10^3/cmm Neut % (Auto) 72.0 60.3 % Neut # (Auto) 6.03 5.48 (1.8-7.7) 10^3/uL BMP 09/23/24 09/24/24 12:34 04:13 Sodium 136 138 Potassium 4.6 3.7 Chloride 102 104 Carbon Dioxide 19 L 22 BUN 11 13 Creatinine 0.6 1.0 H Glucose 118 H 104 Calcium 8.8 8.6 Cardiac Enzymes 09/23/24 Range/Units 12:45 NT-Pro-B Natriuret Pep 384 H (0-125) pg/mL Liver Function 09/23/24 09/24/24 Range/Units 12:34 04:13 Total Bilirubin 0.8 0.7 (0.15-1.2) mg/dL AST 33 H 26 (0-32) U/L ALT 15 12 (0-33) U/L Alkaline Phosphatase 95 87 (35-105) U/L Albumin 3.6 3.3 L (3.5-5.2) g/dL Urine 09/24/24 Range/Units 04:30 Urine Color Dark yellow A (Yellow) Urine Appearance Cloudy A (CLEAR) Urine pH 6.5 (5-7) Ur Specific [place] 1.014 (1.005-1.030) Urine Protein Trace A (Negative) Urine Glucose (UA) Negative (Normal) Urine Ketones Negative (Negative) Urine Nitrate Negative (Negative) Urine Bilirubin Negative (Negative) Ur Leukocyte Esterase Trace A (Negative) Urine RBC 21-50 H (0-2) /hpf Urine WBC 0-5 (0-5) /hpf Coags 09/23/24 13:55 PT 14.70 INR 1.07 APTT 26.6 Microbiology 09/23/24 13:55 Blood Culture - Preliminary Blood SPECIMEN COLLECTED 09/23/24 13:57 Blood Culture - Preliminary Blood SPECIMEN COLLECTED Cardiac Studies: 2 Echocardiogram 02/29/24 Transesophageal Echocardiogram 10/23/23 Anesthesia Procedures Nerve Block Nerve Block 1: Main Anesthesia: other Time Out Performed: Yes Consent: requested by attending/covering physician, from patient, from other, risks and benefits reviewed and patient agrees to proceed Nerve block location: popliteal (R) Anesthesia monitors applied: pulse oximetry, EKG, BP cuff and oxygen Nerve block position: supine Anesthetic Used: lidocaine 2% (20 ml) and ropivicaine 0.5% Ultrasound used to: recognize landmarks Interscalene/Femoral BLK: 4 stimuplex 21 g needle used for position and inplane approach, visualize local anesthetic spread and no vascular puncture identified Injection: neg aspiration of heme Patient Tolerated Procedure: well Complications: none Nerve Block 2: Main Anesthesia: other Time Out Performed: Yes Consent: requested by attending/covering physician, from patient, from other, risks and benefits reviewed and patient agrees to proceed Nerve block location: adductor canal (L) Anesthesia monitors applied: pulse oximetry, EKG, BP cuff and oxygen Nerve block position: supine Anesthetic Used: lidocaine 2% (10 ml) Ultrasound used to: recognize landmarks and visualize and ID femerol nerve Interscalene/Femoral BLK: 4 stimuplex 21 g needle used for position and inplane approach, visualize local anesthetic spread and no vascular puncture identified Injection: neg aspiration of heme Patient Tolerated Procedure: well Complications: none
--- NOTE | 2024-09-24 12:08 | W.PM.OPSUD ---
Surgery/Procedure H&P Update DATE OF PROCEDURE: September 24, 2024 DATE H&P PERFORMED: 09/23/24 H&P UPDATE INFORMATION: I have reviewed H&P completed within last 30 days, I have examined patient prior to procedure, No changes to prior documentation, H&P is in [facility] EMR on date indicated and Risks and benefits of the procedure reviewed PLANNED PROCEDURE: Operation Date: 09/24/24 12:00 Proposed Procedures p Closed Reduction Foot(Right) - Meliton Ellison DPM s Application External Fixator Ankle/Foot(Right) - Meliton Ellison DPM
--- NOTE | 2024-09-24 12:38 | PM.OP ---
Operative Report Date of procedure: September 24, 2024 Surgeon: Meliton Ellison DPM Procedure: Date of procedure: 09/24/2024 Pre-op diagnosis: Right trimalleolar ankle fracture Post-op diagnosis: Same Post-op findings: Closed reduced trimalleolar ankle fracture Procedure done: Closed reduction with casting of right trimalleolar ankle fracture CPT 92456 Implants: none Specimens removed: none Surgeon: Dr. Meliton Ellison DPM Product Info Specialist: Luciana Estimated blood loss: 0cc Tourniquet time: none Complications: none Patient is a 49-year-old female that has a history of right trimalleolar ankle fracture. The extent of injury warrants closed reduction with cast application. A lengthy discussion regarding the procedure, including risks and complications has been had with the patient and is noted in the recent clinic note. Written and verbal consent have been obtained. All patient questions have been answered to the patient?s satisfaction. No written or verbal guarantees have been given or implied. The patient has been NPO since midnight. The history has been reviewed and the history and physical is current. The signed consent was confirmed and placed in the patient chart. Patient imaging has been reviewed and is consistent with the diagnosis. Under mild sedation, the patient was brought into the operating room and placed on the table in the supine position. IV sedation was then performed by the anesthesiateam. The following procedure was then performed. Attention was directed to the right ankle where a trimalleolar ankle fracture was visualized on fluoroscopy. Under direct visualization via fluoroscopy patient underwent closed reduction of the right ankle to appropriate anatomic position. This was visualized on AP and lateral views of the right ankle. Once reduced to appropriate anatomic position. Formed Webril was applied to the right leg followed by a 4 inch plaster cast material to maintain reduction. This was held in place until plaster was hardened to maintain positioning. This was confirmed on AP and lateral views of the ankle. Web roll was further applied to the ankle before another layer of 4 inch plaster casting and then fiberglass casting was applied to the right lower extremity in short leg cast fashion. Patient tolerated procedure well without complication. The patient tolerated the procedure and anesthesia well and without complication. The patient was transported from the operating room to the recovery room with vital signs stable and vascular status intact to all digits of the right foot. The patient was given both written and verbal instructions to remain nonweightbearing to the operative extremity, to keep dressings/splint clean, dry and intact and to take pain medication as directed. No further intervention by podiatry during this admission.
--- NOTE | 2024-09-24 12:46 | XR_ITS ---
WS: [id number] Exam: XR ankle RT 1V [id number] Date/Time of Exam: 09/24/2024 12:46 PM Reason For Exam: OR PICS Limited C arm images of the RIGHT ankle are submitted. Images were obtained for RIGHT intraoperative purposes.
--- NOTE | 2024-09-24 12:55 | ANE.PACU2 ---
Inpatient post-anesthesia follow up: Airway intact: Yes Vital signs: Temperature 97.2 F Pulse Rate 94 Respiratory Rate 16 Blood Pressure 93/54 Pulse Oximetry 98 Oxygen Delivery Me thod Room Air Oxygen Flow Rate 3 Fraction of Inspir ed Oxygen Hydration adequate: Yes Nausea and vomiting: No Pain level: 1 Mental status: Baseline
--- NOTE | 2024-09-24 13:28 | PC.NURSE ---
Patient returned to room approximately 1304. Patient sounds great, no pain and vitals are stable at this time.
[2024-09-24] MEDS: lactulose oral liq 20 gm/30 mL UDC 60 GM PO (17:02)
[2024-09-24] MEDS: pantoprazole 40 mg SDV IVP (17:03)
--- NOTE | 2024-09-24 17:28 | PM.DCS ---
Discharge Providers Date of Admission: 09/23/24 14:46 Date of Discharge: September 24, 2024 Attending Provider at Admission: Neftali Barrera MD Attending Provider at Discharge: Neftali Barrera MD Primary Care Provider: Francisco Mckinley DO Diagnoses at Discharge Discharge Diagnosis 1. Closed trimalleolar fracture: 2. Hospice care patient: Reason for Visit Reason for Visit: Fall, Lt Ankle pain Hospital Course Hospital Course Maribell Foreman is a 49 year old female with a past medical history of type 2 diabetes, history of liver cirrhosis, history of infective endocarditis, history of pacemaker implantation, patient is on hospice on morphine ER 100 mg 3 times daily as needed, with Dilaudid 2 mg twice daily as needed, who presents [facility] for a fall. Patient tells me that today she was coming on the bathroom, and she twisted her ankle and fell on her right ankle, she is status post fracture/dislocation reduction of the emergency room, fracture is not stable or able to reduce it, podiatry service has been consulted, plan on surgical intervention Patient was admitted to [facility] for right trimalleolar fracture Patient is status post closed reduction of trimalleolar fracture Tolerated procedure well Discharged home, on home hospice History of liver cirrhosis, hospice patient, discharged on home hospice History of endocarditis with bacteremia secondary to Enterococcus, so far repeat blood cultures have no growth Physical Exam Const: COMMON NORMALS: no acute distress and patient oriented x3 Resp: COMMON NORMALS: normal respiratory effort, No retractions, No use of accessory muscles and clear to auscultation bilaterally AUSCULTATION: clear to auscultation bilaterally Cardio: COMMON NORMALS: regular rate, regular rhythm, S1 normal heart sound present and S2 normal heart sound present RATE: regular rate RHYTHM: regular rhythm HEART SOUNDS: S1 normal heart sound present and S2 normal heart sound present GI: COMMON NORMALS: Normal to inspection, nondistended, normoactive bowel sounds present and non-tender Extremity: COMMON NORMALS: no pedal edema Neuro: COMMON NORMALS: patient oriented x3 Psych: COMMON NORMALS: mental status grossly normal Discharge Data Studies Completed and Pending Completed Studies During Hospitalization Category Date Time Status XR ankle RT 1V [id number] Routine Exams 09/24/24 12:46 Completed XR ankle RT 2V [id number] Stat Exams 09/23/24 12:48 Completed XR ankle RT min 3V* [id number] Stat Exams 09/23/24 11:52 Completed Pending at discharge Category Date Time Status C-arm Fluoroscopy [id number] Routine Exams 09/24/24 09:45 Taken Blood Culture Stat Lab 09/23/24 13:55 Results Complete Blood Count w/Auto AM LABS Lab 09/25/24 04:00 Ordered Complete Blood Count w/Auto AM LABS Lab 09/26/24 04:00 Ordered Comprehensive Metabolic Panel AM LABS Lab 09/25/24 04:00 Ordered Comprehensive Metabolic Panel AM LABS Lab 09/26/24 04:00 Ordered Magnesium AM LABS Lab 09/25/24 04:00 Ordered Magnesium AM LABS Lab 09/26/24 04:00 Ordered Phosphorus AM LABS Lab 09/25/24 04:00 Ordered Phosphorus AM LABS Lab 09/26/24 04:00 Ordered Urine Culture Routine Lab 09/24/24 04:30 Received Laboratory Results WBC 9.07 10^3/uL (3.29-11.43) 09/24/24 04:13 RBC 4.57 10^6/uL (3.85-5.65) 09/24/24 04:13 Hgb 13.30 g/dL (11.27-16.99) 09/24/24 04:13 Hct 40.4 % (36-47) 09/24/24 04:13 MCV 88.4 fl (85-98) 09/24/24 04:13 MCH 29.1 pg (27-33) 09/24/24 04:13 MCHC 32.9 g/dL (30-55) 09/24/24 04:13 RDW 14.3 % (12.1-15.1) 09/24/24 04:13 Plt Count 156 10^3/cmm (157-399) L 09/24/24 04:13 MPV 10.5 fL (7.4-10.4) H 09/24/24 04:13 Neut % (Auto) 60.3 % 09/24/24 04:13 Lymph % (Auto) 21.3 % 09/24/24 04:13 [place] % (Auto) 16.0 % 09/24/24 04:13 Eos % (Auto) 1.0 % 09/24/24 04:13 Baso % (Auto) 0.7 % 09/24/24 04:13 Neut # (Auto) 5.48 10^3/uL (1.8-7.7) 09/24/24 04:13 Lymph # (Auto) 1.9 10^3/uL (0.8-4.8) 09/24/24 04:13 [place] # (Auto) 1.5 10^3/uL (0.2-0.9) H 09/24/24 04:13 Eos # (Auto) 0.1 10^3/uL (0.0-0.8) 09/24/24 04:13 Baso # (Auto) 0.1 10^3/uL (0.0-0.1) 09/24/24 04:13 Nucleated RBC % (auto) 0 % 09/24/24 04:13 Nucleated RBCs # 0.0 /100WBC 09/24/24 04:13 PT 14.70 SECONDS (12.1-14.9) 09/23/24 13:55 INR 1.07 (0.8-1.2) 09/23/24 13:55 APTT 26.6 SECONDS (23.9-36.7) 09/23/24 13:55 Sodium 138 mmol/L (136-145) 09/24/24 04:13 Potassium 3.7 mmol/L (3.5-5.1) 09/24/24 04:13 Chloride 104 mmol/L (98-107) 09/24/24 04:13 Carbon Dioxide 22 mmol/L (22-29) 09/24/24 04:13 Anion Gap 15.7 (5-19) 09/24/24 04:13 BUN 13 mg/dL (6-20) 09/24/24 04:13 Creatinine 1.0 mg/dL (0.5-0.9) H 09/24/24 04:13 GFR Calculation 58.7 mL/min (90-130) L 09/24/24 04:13 Glucose 104 mg/dL (65-115) 09/24/24 04:13 POC Glucose 99 mg/dL (70-110) 09/24/24 16:51 Estimat Average Glucose 123 09/23/24 12:15 Hemoglobin A1c 5.9 % (4.0-6.0) 09/23/24 12:15 Calculated Osmolality 286 mOsm/kg (285-295) 09/24/24 04:13 Lactic Acid 1.0 mmol/L (0.5-2.2) 09/23/24 13:55 Calcium 8.6 mg/dL (8.5-10.5) 09/24/24 04:13 Phosphorus 5.5 mg/dL (2.5-4.5) H 09/24/24 04:13 Magnesium 1.7 mg/dL (1.7-2.3) 09/24/24 04:13 Total Bilirubin 0.7 mg/dL (0.15-1.2) 09/24/24 04:13 AST 26 U/L (0-32) 09/24/24 04:13 ALT 12 U/L (0-33) 09/24/24 04:13 Alkaline Phosphatase 87 U/L (35-105) 09/24/24 04:13 NT-Pro-B Natriuret Pep 384 pg/mL (0-125) H 09/23/24 12:45 Total Protein 7.6 g/dL (6.6-8.7) 09/24/24 04:13 Albumin 3.3 g/dL (3.5-5.2) L 09/24/24 04:13 Globulin 4.3 g/dL (1.3-4.6) 09/24/24 04:13 Triglycerides 101 mg/dL (0-150) 09/23/24 13:57 Cholesterol 176 mg/dL (0-200) 09/23/24 13:57 LDL Cholesterol, Calc 111 mg/dL (50-129) 09/23/24 13:57 HDL Cholesterol 45 mg/dL (60-100) L 09/23/24 13:57 LDL/HDL Ratio 2.47 RATIO (0.00-3.22) 09/23/24 13:57 Cholesterol/HDL Ratio 3.91 mg/dL (0.0-4.40) 09/23/24 13:57 Procalcitonin 0.73 ng/mL (0-0.5) H 09/23/24 12:45 TSH 1.34 uIU/mL (0.27-4.20) 09/23/24 13:57 Urine Color Dark yellow (Yellow) A 09/24/24 04:30 Urine Appearance Cloudy (CLEAR) A 09/24/24 04:30 Urine pH 6.5 (5-7) 09/24/24 04:30 Ur Specific Mobile 1.014 (1.005-1.030) 09/24/24 04:30 Urine Protein Trace (Negative) A 09/24/24 04:30 Urine Glucose (UA) Negative (Normal) 09/24/24 04:30 Urine Ketones Negative (Negative) 09/24/24 04:30 Urine Blood Trace (Negative) A 09/24/24 04:30 Urine Nitrate Negative (Negative) 09/24/24 04:30 Urine Bilirubin Negative (Negative) 09/24/24 04:30 Urine Urobilinogen 1.0 mg/dL (Negative) 09/24/24 04:30 Ur Leukocyte Esterase Trace (Negative) A 09/24/24 04:30 Urine RBC 21-50 /hpf (0-2) H 09/24/24 04:30 Urine WBC 0-5 /hpf (0-5) 09/24/24 04:30 Ur Squamous Epith Cells 6-10 /hpf (0-5) 09/24/24 04:30 Calcium Oxalate Crystal 0-4 /hpf H 09/24/24 04:30 Amorphous Sediment Not Reportable 09/24/24 04:30 Urine Bacteria 4+ /hpf (NONE) H 09/24/24 04:30 Hyaline Casts 34.33 /lpf 09/24/24 04:30 Urine Mucus Trace /hpf 09/24/24 04:30 Urine Yeast Trace /hpf 09/24/24 04:30 Vitals Last Vital Signs Temp 97.6 F 09/24/24 13:14 Pulse 97 09/24/24 14:45 Resp 18 09/24/24 13:05 BP 135/87 09/24/24 14:45 Pulse Ox 100 09/24/24 14:45 O2 Del Method Nasal Cannula 09/24/24 14:45 O2 Flow Rate 4 09/24/24 14:45 Discharge Plan Discharge Patient Disposition: Hospice - Home Condition: Stable Prescriptions: New enoxaparin [Lovenox] 40 mg/0.4 mL syringe 40 mg SUBCUT Q24H 28 Days Qty: 11.2 0RF naloxone [Narcan] 4 mg/actuation spray,non-aerosol 4 mg intranasal Q2M PRN (Reason: opioid overdose) Qty: 2 0RF Rx Instructions: spray 1 dose into ONE nostril; alternate nostrils w each dose until help arrives Continued amitriptyline 75 mg tablet 75 mg PO BEDTIME doxepin 10 mg capsule 10 mg PO BEDTIME PRN (Reason: Sleep) albuterol sulfate [Ventolin HFA] 90 mcg/actuation HFA aerosol inhaler 2 puff INHALATION Q6H PRN (Reason: Shortness Of Breath) levalbuterol tartrate [Xopenex HFA] 45 mcg/actuation HFA aerosol inhaler 2 inh inhalation Q6H PRN (Reason: Shortness Of Breath) tenofovir disoproxil fumarate [Viread] 300 mg tablet 300 mg PO DAILY tizanidine 4 mg tablet 4 mg PO Q6H PRN (Reason: Spasms) 10 Days Qty: 30 0RF levothyroxine 50 mcg tablet 50 mcg PO QAM 30 Days Qty: 30 2RF lactulose 10 gram/15 mL solution 90 ml PO TID 30 Days Qty: 8100 0RF Creon 3,000-9,500- 15,000 unit capsule,delayed release(DR/EC) 1 cap PO TID 30 Days Qty: 30 0RF cholecalciferol (vitamin D3) 1,250 mcg (50,000 unit) capsule 50,000 unit PO Q7D Xifaxan 550 mg tablet 550 mg PO BID gabapentin 300 mg capsule 600 mg PO BID ipratropium-albuterol 0.5 mg-3 mg(2.5 mg base)/3 mL solution for nebulization See Rx Instructions .ROUTE .COMPLEX Rx Instructions: use 1 vial IN NEBULIZER EVERY 4 HOURS NEEDED FOR WHEEZING OR SHORTNESS OF BREATH insulin glargine [Lantus U-100 Insulin] 100 unit/mL solution See Rx Instructions .ROUTE .COMPLEX Rx Instructions: inject 10 units SUBCUTANEOUSLY at breakfast and 40 units AT BEDTIME spironolactone [Aldactone] 100 mg Tablet 100 mg PO DAILY morphine [MS Contin] 100 mg tablet extended release 100 mg PO Q8H Rx Instructions: max 3per day ondansetron 4 mg tablet,disintegrating 4 mg PO Q6H PRN (Reason: Nausea And Vomiting) nicotine 7 mg/24 hr Patch 24 Hour 1 patch TRANSDERMAL Q24H hydromorphone 4 mg Tablet 4 mg PO BID PRN (Reason: Break Thur Pain) Held isosorbide mononitrate 60 mg tablet extended release 24 hr 60 mg PO DAILY Hold Instructions: Resume on 09/26/24. nifedipine [Procardia XL] 30 mg tablet extended release 24hr 30 mg PO DAILY Hold Instructions: Resume on 09/27/24. No Action tizanidine 6 mg capsule 6 mg PO Q8H PRN (Reason: muscle spasticity) Qty: 21 0RF Discharge Order = DC NOW: Discharge Order (Routine); Ordered 09/24/24 Ordered By: Neftali Barrera Referrals: Meliton Ellison DPM [Physician, Podiatry] - 10/08/24 9:15 am Francisco Mckinley DO [Primary Care Provider] - 09/29/24 11:00 am Discharge Diet: Advance as tolerated Discharge Activity: Limit activity as instructed Patient Instructions: Enoxaparin (By injection) (Lovenox), Cefdinir (By mouth) (Omnicef), Naloxone (Into the nose), Ankle Fracture (DC), Acute Wound Care (DC), Closed Reduction (GEN), Opioid Safety, Post Anesthesia Care, Patient Portal & Marcelino Instructions Activity Restrictions/Additional Instructions: --Weight bearing: Nonweightbearing to right lower extremity -follow up wiht DKA Discharge Attestations Time Spent in Discharge Care*: greater than 30 min Quality Metrics Clinical Quality Measures [ No reported AMI, CVA or VTE this stay] Coding Level of Care Code Acute Code for Chg Fwd Diagnoses Closed trimalleolar fracture S82.853A Hospice care patient Z51.5
--- NOTE | 2024-09-24 19:34 | PC.NURSE ---
Discussed discharge with patient. Tried going over follow up appointments, medications, new, continued and held. Patient reponded as Noah Zamora . Visitor at bed was trying to coy patient and complaining about not eating. This nurse discussed the non weight bearing status twice with patient. Patient did verbalize understanding. 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 Evening medications were given to patient before discharge.
--- NOTE | 2024-09-24 19:40 | PC.NURSE ---
Patients belongings were retrieved from [facility] in a sealed white envelope upon discharge.
== END 2024-09-24 18:54 | disposition hospice, home (50) | DRG 563 ==
LOC: ER 13:33 → MEDSURG 14:47
PROVIDERS: Podiatrist Foot & Ankle Surgery; Admitting Provider Family Medicine; Emergency Provider Family Medicine; PCP Family Medicine; Visit Provider Family Medicine
PROC: 0SSFXZZ Reposition Right Ankle Joint, External Approach (ICD-10-PCS; principal; 2024-09-24 12:00)
DX: S82.851A Displaced trimalleolar fracture of right lower leg, initial encounter for closed fracture (principal); N39.0 Urinary tract infection, site not specified; I38 Endocarditis, valve unspecified; W01.0XXA Fall on same level from slipping, tripping and stumbling without subsequent striking against object, initial encounter; B96.20 Unspecified Escherichia coli [E. coli] as the cause of diseases classified elsewhere; E11.9 Type 2 diabetes mellitus without complications; K74.60 Unspecified cirrhosis of liver; Z95.0 Presence of cardiac pacemaker; Z79.4 Long term (current) use of insulin; Z51.5 Encounter for palliative care; Z66 Do not resuscitate; Z79.891 Long term (current) use of opiate analgesic; I49.5 Sick sinus syndrome; E03.9 Hypothyroidism, unspecified; I25.2 Old myocardial infarction; J44.9 Chronic obstructive pulmonary disease, unspecified; Z86.711 Personal history of pulmonary embolism; Z87.891 Personal history of nicotine dependence; Z85.028 Personal history of other malignant neoplasm of stomach; I10 Essential (primary) hypertension; K21.9 Gastro-esophageal reflux disease without esophagitis; Z90.49 Acquired absence of other specified parts of digestive tract; B95.2 Enterococcus as the cause of diseases classified elsewhere
CPT/HCPCS: 29505; 29515; 36415; 36416; 73600; 73610; 76000; 80053; 80061; 81001; 82962; 83036; 83605; 83735; 83880; 84100; 84145; 84443; 85025; 85610; 85730; 87040; 87077; 87086; 87186; 93005; 94664; 94799; 96372; 96374; 96375; 96376; 99285; A4216; J1100; J1650; J2270; J2405; J2470; J2704; J3010; J3490; J7030; J9999

== ENCOUNTER 2024-09-29 18:31 | Emergency (ER) | payer MEDICAID, SELFPAY ==
--- OUTSIDE RECORDS SUMMARY | 2024-09-29 11:00 | XMS_ITS | Encounter Summary ---
Author Organization [facility] Address [address] [place] [address] Care Team Providers Care Torch Cutter Name Role Phone Jersey Mckinley DO Primary Care Provider [phone] Reason for Visit * Reason Comments Ankle Injury Encounter Details Date Type Department Care Team (Late st Contact Info) Description 09/29/2024 11:00 AM CDT Video Visit [facility] [address] [phone] Jersey Mckinley DO [address] [place] [phone] Closed fracture of ankle, unspecified laterality, initial encounter (Primary Dx); Cirrhosis of liver with ascites, unspecified hepatic cirrhosis type (CMS/HCC) Social History Tobacco Use Types Packs/Day Years [...] in the past 12 m [facility], were you homeless or living in a longterm (including now)? 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 This encounter was completed via two-way synchronous audio only communication. Video technology available to provider, but patient not capable of, or doesn't consent to, use of video. Time spent in discussion with patient: 15 minutes. INVITE SENT TO PHONE NUMBER - [phone], Called patient at 3:04 PM, LOIS full. Called patient at 3:14 PM, full [phone], Called patient at 5:06 PM, Able to reach patient. SUBJECTIVE: History of Present Illness Fractured ankle, Fell at home with muscle cramp. Right lower leg shattered and had ORIF. Pain of foot and leg, swelling above cast, reports toes have turned dark purple/villatoro/black. Unable to move toes. Reports toes feel cold, 1st-4th toes Wt Readings from Last 5 Encounters: 07/07/24 109.3 kg (241 lb) 05/18/24 108.7 kg (239 lb 11.2 oz) 05/03/24 97.1 kg (214 lb) 05/02/24 100 kg (220 lb 6.4 oz) 05/01/24 101.5 kg (223 lb 12.8 oz) Ht Readings from Last 1 Encounters: 07/07/24 6' (1.829 m) BMI Readings from Last 5 Encounters: 07/07/24 32.69 kg/m?? 05/18/24 32.51 kg/m?? 05/03/24 28.82 kg/m?? 05/02/24 29.89 kg/m?? 05/01/24 30.35 kg/m?? Current Outpatient Medications on File Prior to Visit Medication Sig Dispense Refill HYDROmorphone (DILAUDID) 4 mg tablet Take 1 Tablet (4 mg) by mouth every 6 hours as needed for Pain, Break-Through. Max Daily Amount: 16 mg 28 Tablet 0 morphine (MS CONTIN) 100 mg Controlled Release tablet Take 1 Tablet (100 mg) by mouth every 8 hours. Start date 09/22/2024 Max Daily Amount: 300 mg 90 Tablet 0 furosemide (LASIX) 80 mg tablet Take 1 Tablet (80 mg) by mouth daily. 30 Tablet 0 amitriptyline (ELAVIL) 75 mg tablet Take 1 Tablet (75 mg) by mouth daily at bedtime. 30 Tablet 2 scopolamine (TRANSDERM-SCOP) 1 mg/72 hr patch APPLY ONE PATCH TO SKIN DIRECTED EVERY 3 DAYS 10 Patch 5 tenofovir disoproxil fumarate (VIREAD) 300 mg Tablet Take 1 Tablet (300 mg) by mouth daily. 30 Tablet 5 polyethylene glycol 3350 (Miralax) 17 gram/dose Powder Take by mouth. lamoTRIgine (LaMICtal) 100 mg tablet Take 1 Tablet (100 mg) by mouth daily. 90 Tablet 3 magnesium HYDROXIDE (Milk Of Magnesia Concentrated) 2,400 mg/10 mL Suspension Take by mouth. bisacodyL (Dulcolax, bisacodyl,) 10 mg Suppository Insert by rectum. Nebulizer Accessories Kit Disposable mask and tubing for nebulizer. New kit every 3 months. 1 Kit 3 potassium CHLORIDE (KAYCIEL) 20 mEq/15 mL solution Take 30 mL (40 mEq) by mouth daily. 900 mL 5 nebulizer Length of need 99 months Nebulizer with compressor, Kit: Disposable Nebulizer Kit, 2 per month, filters , areosol mask: No. Name of Medication albuterol. 1 Each 0 OneTouch Verio Flex meter Check blood glucose if symptoms of hyperglycemia or hypoglycemia. DX E11.9 1 Each 0 blood sugar diagnostic (OneTouch Verio test strips) Strip 1 Strip 3 times daily before meals. 100 Strip 2 BD Insulin Syringe Ultra-Fine 1 mL 31 gauge x 5/16 Syringe FOR USE with insulin injections THREE TIMES DAILY (lantus and humalog) 200 Each 3 Blood-Glucose Meter,Continuous (Dexcom G7 Warehouse Production Worker) Use to monitor blood glucose continuously throughout the day. 1 Each 0 Blood-Glucose Sensor (Dexcom G7 Sensor) Device USE TO MONITOR BLOOD GLUCOSE CONTINUOUSLY THROUGH THE DAY. CHANGE SENSOR EVERY 10 DAYS. 9 Each 3 insulin glargine (Lantus U-100 Insulin) 100 unit/mL vial inject 10 units SUBCUTANEOUSLY at breakfast and 40 units AT BEDTIME 30 mL 3 ibuprofen (MOTRIN) 600 mg tablet Take 1 Tablet (600 mg) by mouth every 8 hours as needed for Other (See Comment) or Pain, Moderate (fever). insulin degludec (TRESIBA) 100 unit/mL pen syringe Inject 10 Units by subcutaneous injection daily with breakfast. insulin degludec (TRESIBA) 100 unit/mL pen syringe Inject 10 Units by subcutaneous injection daily at bedtime. ergocalciferol (VITAMIN D2) 50,000 unit capsule Take 1 Capsule (50,000 Units) by mouth every 7 days. 12 Capsule 1 umeclidinium-vilanteroL (Anoro Ellipta) 62.5-25 mcg/actuation Disk with Device INHALE 1 PUFF BY MOUTH EVERY DAY 60 Each 2 doxepin (SINEquan) 10 mg capsule take 1 capsule BY MOUTH every night NEEDED FOR insomnia 30 Capsule 2 portable oxygen Face to Face completed within 30 days: yes Length of Need: 99 months By: Nasal Cannula Continuously at 2 L/min. 1 Each 0 spironolactone (ALDACTONE) 100 mg tablet Take 1 Tablet (100 mg) by mouth daily. 90 Tablet 3 metoclopramide HCl (REGLAN) 5 mg tablet Take 1 Tablet (5 mg) by mouth 4 times daily as needed for Nausea/Emesis. 60 Tablet 3 oxygen home delivery Home Oxygen Concentrator yes at 0 L/M Rest, 0 L/M Activity, 2 L/M Sleep, Delivery Device: Nasal Cannula Portability: no, May provide device best for patient needs(E system,home fill, conserving device) Length of Need: 99 months 1 Each 0 rifAXIMin (XIFAXAN) 550 mg Tablet Take 1 Tablet (550 mg) by mouth 2 times daily. 60 Tablet 5 NIFEdipine (PROCARDIA XL) 30 mg Extended Release 24 hour tablet Take 1 Tablet (30 mg) by mouth daily. 100 Tablet 3 gabapentin (NEURONTIN) 300 mg capsule Take 2 Capsules (600 mg) by mouth 2 times daily. 360 Capsule 3 furosemide (LASIX) 40 mg tablet Take 2 Tablets (80 mg) by mouth daily in the morning AND 1 Tablet (40 mg) daily after lunch. 90 Tablet 5 lactulose (ENULOSE) 10 gram/15 mL oral solution TAKE 90ML BY MOUTH THREE TIMES DAILY 8514 mL [address]xbc-offpzedc-xpawisc DR (Creon) 3,000-9,500-15,000 unit capsule Take 1 Capsule by mouth 3 times daily with meals. 200 Capsule 11 pantoprazole (PROTONIX) 40 mg Tablet, Delayed Release (E.C.) Take 1 Tablet (40 mg) by mouth daily. 90 Tablet 3 tiZANidine (ZANAFLEX) 4 mg Tablet Take 1 Tablet (4 mg) by mouth every 6 hours as needed for Spasm. 120 Tablet 11 levothyroxine 50 mcg tablet Take 1 Tablet (50 mcg) by mouth daily in the morning. 100 Tablet 3 lancets (OneTouch Delica Plus Lancet) 33 gauge Check sugars 1-3 times a day. 100 Each 11 albuterol sulfate HFA 90 mcg/actuation aerosol inhaler Take 2 Puffs by inhalation every 6 hours as needed for Shortness of Breath. 8.5 Gram 5 ipratropium-albuteroL (DUONEB) 0.5 mg-3 mg(2.5 mg base)/3 mL Solution for Nebulization Take 3 mL byinhalation every 4 hours as needed for Shortness of Breath, Respiration or Wheezing. naloxone (Narcan) 4 mg/spray [place], Non-Aerosol EMERGENCY USE ONLY: ADMINISTER ONE SPRAY (4 MG) IN ONE NOSTRIL ONE TIME. MAY REPEAT IN ALTERNATING NOSTRILS EVERY TWO TO THREE MIN UNTIL RESPONSIVE OR EMS ARRIVES. STRENGTH: 4 MG/ACTUATION (Patient not taking: Reported on 07/07/2024) 2 Each 3 Oral Medication Containers (Sharps Container) For use with disposable syringe and needle. 1 Each 3 No current facility-administered medications on file prior to visit. PAST MEDICAL/SURGICAL HISTORY: Past Medical History: Diagnosis Date Abscess of arm C. difficile colitis 09/26/2019 Chronic pancreatitis (CMS/HCC) Cirrhosis ([facility]/HCC) Clostridium difficile infection 09/24/2019 Diabetes mellitus (CMS/HCC) Diabetic gastroparesis (CMS/HCC) Emphysema of lung (CMS/HCC) 04/26/2023 GERD (gastroesophageal reflux disease) Hepatitis B Hypothyroid Ischemic bowel disease 04/01/2022 Liver disease, chronic Lymphedema Ovarian cancer (CMS/HCC) 2018 Seizure disorder (CMS/HCC) Past Surgical History: Procedure Laterality Date HX ABDOMINAL SURGERY perforated duodenal ulcer HX APPENDECTOMY 03-26-2022 HX COLONOSCOPY N/A 10/03/2022 COLONOSCOPY performed by Robert Estrada MD at [facility] HX ESOPHAGOGASTRODUODENOSCOPY N/A 03/29/2021 ESOPHAGOGASTRODUODENOSCOPY performed by Bowen Verma DO at [facility] HX HYSTERECTOMY 04/2012 PARTIAL HX PACEMAKER PLACEMENT 05/10/22 HX TUBAL LIGATION INSERT MIDLINE IV 12/02/2018 IP CONSULT TO IV TEAM 09/24/2019 MT COLONOSCOPY FLX DX W/COLLJ SPEC WHEN PFRMD N/A 01/08/2019 COLONOSCOPY performed by Bowen Vemra DO at [facility] MT COLONOSCOPY FLX DX W/COLLJ SPEC WHEN PFRMD N/A 01/07/2019 COLONOSCOPY performed by Robert Estrada MD at [facility] MT ESOPHAGOGASTRODUODENOSCOPY TRANSORAL DIAGNOSTIC N/A 12/02/2018 ESOPHAGOGASTRODUODENOSCOPY performed by Jus Murphy MD at [facility] MT ESOPHAGOGASTRODUODENOSCOPY US SCOPE W/ADJ STRXRS N/A 02/10/2019 ESOPHAGOGASTRODUODENOSCOPY WITH ENDOSCOPIC ULTRASOUND [facility] EXPLORATORY LAPAROTOMY CELIOTOMY W/WO BIOPSY SPX N/A 03/27/2022 RIGHT HEMICOLECTOMY performed by Meliton Hansen MD at [facility] MA[facility] OR Social History Socioeconomic History Marital status: Tobacco Use Smoking status: Former Current packs/day: 0.00 Types: Cigarettes Quit date: 03/28/2024 Years since quittin.5 Passive exposure: Never Smokeless tobacco: Never Tobacco comments: Quit smokin-5cigarlettes daily Vaping Use Vaping status: Former Substances: Flavoring Devices: Disposable Substance and Sexual Activity Alcohol use: Never Drug use: Not Currently Sexual activity: Not Currently Social Drivers of Health Transportation Needs: No Transportation Needs (07/09/2024) Transportation Needs Patient needs follow up regarding:: 1 Feeling Safe: Not At Risk (05/18/2024) Feeling Safe Patient has indicated abuse: : No Housing Stability: Low Risk (05/18/2024) Housing Stability Patient needs follow up regarding:: No concerns OBJECTIVE: PHYSICAL EXAM: LMP 10/01/2018 (Approximate) Physical Exam Constitutional: General: She is not in acute distress. Pulmonary: Effort: Pulmonary effort is normal. Breath sounds: No stridor. No wheezing. Neurological: Mental Status: She is alert and oriented to person, place, and time. Psychiatric: Mood and Affect: Mood normal. Thought Content: Thought content normal. Judgment: Judgment normal. Procedures RESULTS: Results ASSESSMENT/PLAN: ICD-10-CM ICD-9-CM 1. Closed fracture of ankle, unspecified laterality, initial encounter S82.899A 824.8 2. Cirrhosis of liver with ascites, unspecified hepatic cirrhosis type (CMS/HCC) K74.60 571.5 R18.8 Assessment & Plan Ankle fracture: Has been using ice as instructed. Has been taking scheduled pain medication. Concern for possible compartment syndrome with recent ORIF and casting, and with change of sensation and color change of foot. Encouraged patient to proceed to ER for emergent evaluation. She is agreeable. Cirrhosis: 276 lbs today per patient. Continue Lasix for Cirrhosis. Potassium WNL 08/2024. TOBACCO/NICOTINE COUNSELING She is not a tobacco/nicotine user. The author of this note, patient (or authorized enrollment representative), and all other persons present consent to the audio recording of this visit for charting documentation purposes. This note was automatically generated by a Generative AI technology ([employer]), reviewed, edited, and finalized by Jersey Mckinley DO. Jersey Mckinley DO Portions of this note were created using [employer] Dictation software. Attempts were made to correct any mistakes prior to signing this note. There is always a possibility that words were not transcribed correctly. This note is made as a medical record and medical terms have been used where appropriate. If you do not recognize a term or feel it is inaccurate please call the office to discuss or schedule a follow-up appointment. documented in this encounter Miscellaneous Notes * Addendum Note - Jersey Mckinley DO - 09/29/2024 5:31 PM CDTAddended by: JERSEY MCKINLEY on: 09/29/2024 05:31 PM Modules accepted: Level of Service documented in this encounter Plan of Treatment Upcoming Encounters Date Type Department Care Team (Late st Contact Info) Description 01/26/2025 8:40 AM PYRIDINE OPERATOR Office Visit [facility] Gastroenterology- [place] [address] [facility] [address] [place] [address] Robert [facility]strada MD [facility] [facility] [address] [place] [address] documented as of this encounter Visit Diagnoses Diagnosis Closed fracture of ankle, unspecified laterality, initial encounter- Primary Cirrhosis of liver with ascites, unspecified hepatic cirrhosis type (CMS/HCC) documented in this encounter Care Teams Torch Cutter Relationship Specialty Start Date End Date Jersey Mckinley DO [address] [place] [address] PCP - General 06/07/20 documented as of this encounter
[2024-09-29 18:33] VITALS: BP 136/74; PULSE 115; RESP 18; TEMP 37; O2SAT 93; BMI 37.4
--- NOTE | 2024-09-29 18:33 | XRR_ITS ---
PROCEDURE INFORMATION: Exam: XR Right Ankle Exam date and time: 09/29/2024 9:11 PM Age: 49 years old Clinical indication: Other: Pain swelling FX; Additional info: Injury TECHNIQUE: Imaging protocol: Radiologic exam of the right ankle. Views: 3 or more views. COMPARISON: OT XR ankle RT 1V [id number] 09/24/2024 12:20 PM FINDINGS: Bones/joints: Acute distal fibular fracture an acute medial malleolar fracture, with mildly displaced fragments. These fractures appear slightly comminuted add do extend to the articular surface. Lateral view is questionable for posterior malleolar fracture. Trace joint effusion suggested. Soft tissues: Soft tissue swelling about the ankle. XR/XR ankle RT min 3V* [id number] IMPRESSION: Acute bilateral malleolar fractures, mildly displaced. Questionable fracture of the posterior malleolus as well.
--- OUTSIDE RECORDS SUMMARY | 2024-09-29 18:35 | XMS_ITS | Encounter Summary ---
Author Organization [facility] Address [address] [place] [address] Care Team Providers Care Chyron Operator Name Role Phone Francisco Mckinley DO Primary Care Provider [phone] Reason for Visit * Reason Comments Information Encounter Details Date Type Department Care Team (Late st Contact Info) Description 09/17/2024 Telephone [facility] Medicine [address] [address] Francisco Mckinley DO [address] [place] [phone] Information Social History Tobacco Use Types [...] any time in the past 12 m [facility], were you homeless or living in [...] on file 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 Due to Holiday and extended weekend, Dr. Mckinley called to ER, the date/time selected is 1st available for HFU * Telephone Encounter - Natalie Zamudio - 09/17/2024 4:56 PM CDT Copied from [facility] #[id number]. Topic: Established Patient Care >> Sep 17, 2024 4:54 PM Natalie Gloria wrote: [facility]? Yes, select appropriate option in Discharge Facility SmartList Caller Name: Maribell Foreman Callback Number: Telephone Information: Call Notes: Discharge from [facility] ED on 09/15 Patient is High [...] st Contact Info) Description 01/26/2025 8:40 AM PLANT SCIENCE PROFESSOR [facility] [address] [facility] [address] [place] [address] Robert Estrada MD 2114 [facility] [address] [place] [address] documented as of this encounter Visit Diagnoses Not on filedocumented in this encounter Care Teams Chyron Operator Relationship Specialty Start Date End Date Francisco Mckinley DO [address] [address] PCP - General 06/07/20 documented as of this encounter
--- OUTSIDE RECORDS SUMMARY | 2024-09-29 18:35 | XMS_ITS | Encounter Summary ---
Author Organization [facility] Address [address] [place] [address] Care Team Providers Care Microbiology Soil Scientist Name Role Phone Francisco Mckinley DO Primary Care Provider [phone] Reason for Visit * Reason Comments Information Encounter Details Date Type Department Care Team (Late st Contact Info) Description 07/01/2024 Telephone [facility] Medicine [address] [address] Francisco Mckinley DO [address] [place] [phone] Information Social History Tobacco Use Types [...] any time in the past 12 m [facility], were you homeless or living in [...] on file Legal Sex Female 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 Topic: Patient or Caregiver Communication Request >> Jul 01, 2024 11:47 AM Eva Gloria wrote: Patient or Caregiver calling to update Care team on status after a recent visit Caller: Maribell Foreman Patient/Caregiver Callback Number: [phone] Call Notes: patient is not feeling any better and has a few more spots that have popped up on leg documented in this encounter Plan of Treatment Upcoming Encounters Date Type Department Care Team (Late st Contact Info) Description 01/26/2025 8:40 AM APPLICATION DBA [facility] 2[address] [facility] [address] [place] [address] Robert Estrada MD 2114 [facility] [address] [place] [address] documented as of this encounter Visit Diagnoses Not on filedocumented in this encounter Care Teams Microbiology Soil Scientist Relationship Specialty Start Date End Date Francisco Mckinley DO [address] [address] PCP - General 06/07/20 documented as of this encounter
--- OUTSIDE RECORDS SUMMARY | 2024-09-29 18:35 | XMS_ITS | Encounter Summary ---
Author Organization [facility] Address [address] [place] [address] Care Team Providers Care Horse Race Timer Name Role Phone Francisco Mckinley DO Primary Care Provider [phone] Reason for Visit * Reason Comments Patient Communication Encounter Details Date Type Department Care Team (Late st Contact Info) Description 09/29/[address] [facility] Medicine [address] [address] Francisco Mckinley DO [address] [place] [phone] Patient Communication Social History Tobacco Use Types [...] any time in the past [address] 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 Topic: CPA Information Request >> Sep 29, 2024 4:23 PM Jama Walters wrote: Caller is returning phone call from clinic. Caller Name: Maribell Foreman Patient/Caregiver Callback Number: Telephone Information: Clinic Left Note In Chart Is there a note from the clinic requesting the caller be transferred when they call back? Yes - note is for ELECTRONICS PROCESSING SUPERVISOR Call Notes: states she never received her call for her appt. Wanting Dr. Mckinley to see her after allhis patients today. documented in this encounter Plan of Treatment Upcoming Encounters Date Type Department Care Team (Late st Contact Info) Description 01/26/2025 8:40 AM ORGANIZATIONAL DEVELOPMENT CONSULTANT Office Visit [facility] Gastroenterology- [place] [address] [facility] [address] [place] [address] Robert Estrada MD [facility] [facility] [address] [place] [address] documented as of this encounter Visit Diagnoses Not on filedocumented in this encounter Care Teams Horse Race Timer Relationship Specialty Start Date End Date Francsico Mckinley DO [address] [place] [phone] PCP - General 06/07/20 documented as of this encounter
--- OUTSIDE RECORDS SUMMARY | 2024-09-29 18:35 | XMS_ITS | Encounter Summary ---
Author Organization [facility] Address [address] [place] [address] Care Team Providers Care Trimmer Machine Name Role Phone Francisco Mckinley DO Primary Care Provider [phone] Reason for Visit * Reason Comments Medication Refill Medication Review Med Refill Medication Review Encounter Details Date Type Department Care Team (Late st Contact Info) Description 09/22/2024 Refill [facility] Medicine [address] [address] Francisco Mckinley DO [address] [place] [phone] Uncomplicated opioid dependence; Hospice care patient; [...] any time in the past 12 m [facility], were you homeless or living in a [facility]p (including now)? 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 Steffanie BECKETT * Telephone Encounter - Gissell Vanessa - 09/26/2024 8:12 AM CDT Copied from [facility] #[id number]. Topic: Medication Request >> Sep 26, 2024 8:09 AM Gissell Walters wrote: Pharmacy Calling: henna with [facility] Pharmacy Contact Name: henna Pharmacy Number: [phone] Medication: hydromorphone Call Notes: Caller has questions concerning a prescription.- wondering when this can be filled patient picked up 14 tablets yesterday 09/25 Is the patient there at the pharmacy waiting to fill a prescription? No Is there an encounter open? Yes * Telephone Encounter - Martina Fletcher LPN - 09/22/2024 2:18 PM CDT Patient is not due for refill of Dilaudid until 09/24/24. MS Contin request has been sent to provider to approve. Martina Fletcher LPN, 09/22/2024 2:19 PM * Telephone Encounter - Jelena Johnson - 09/22/2024 1:57 PM CDT Copied from [facility] #[id number]. Topic: Medication Request >> Sep 22, 2024 1:55 PM Jelena Carlson wrote: Caller Name: Maribell Foreman Callback Number: Telephone Information: Medication (Ask patient/caregiver to spell if possible): morphine Note: All medication prescriptions can be requested using one [facility] Preferred Pharmacy: The patient's preferred pharmacy is [facility] [address] Call Notes: Caller is checking the [...] - 09/22/2024 9:36 AM CDT Copied from [facility] #[id number]. Topic: Patient or Caregiver Communication Request >> [...] CDT Medication Refill Request Last Fill Date:MS [facility] 08/23/24 90 Recent and Future Visits: Recent Visits Date Type Provider Dept 07/07/24 Video Visit Ailyn Leon FNP [facility] 06/27/24 Video Visit Francisco Mckinley, DO [facility] 04/03/24 Office Visit Francisco Mckinley, DO [facility] 02/01/24 Office Visit Francisco Mckinley, DO [facility] 12/27/23 Office Visit Francisco Mckinley DO [facility] 12/13/23 Office Visit Francisco Mckinley DO [facility] 09/27/23 Office Visit Francisco Mckinley DO [facility] 08/23/23 Office Visit Kacy Lazo [facility] 04/26/23 Office Visit Francisco Mckinley, [facility] Showing recent visits within past 540 days with a meds authorizing provider and meeting all other requirements Future Appointments Date Type Provider Dept 09/24/24 Appointment Francisco Mckinley DO [facility] Showing future appointments within next 365 days with a meds authorizing provider and meeting all other requirements * Telephone Encounter - Rufus Ramey - 09/22/2024 8:13 AM CDT Copied from [facility] #[id number]. Topic: Medication Request >> Sep 22, 2024 8:11 AM Rufus Trejo wrote: Caller Name: Maribell Foreman Callback Number: [phone] Medication (Ask patient/caregiver to spell if possible): HYDROmorphone (DILAUDID) 4 mg tablet morphine (MS CONTIN) 100 mg Controlled Release table Note: All medication prescriptions can be requested using one CRM Preferred Pharmacy: [address] Call Notes: Patient is needing refills Did caller contact the correct clinic for prescribing provider? Yes Ask caller if the refill is for a controlled medication. Is this for a controlled Medication? Unsure Is there an encounter open? No documented in this encounter Plan of Treatment Upcoming Encounters Date Type Department Care Team (Late st Contact Info) Description 01/26/2025 8:40 AM LAB TESTER Office Visit [facility]- [place] [address] [address] Robert Estrada MD 5 [facility] [address] [place] [address] documented as of this encounter Visit Diagnoses Diagnosis Uncomplicated opioid dependence Opioid type dependence, unspecified Hospice care patient Encounter for palliative care Other chronic pancreatitis documented in this encounter Care Teams Trimmer Machine Relationship Specialty Start Date End Date Francisco Mckinley DO [address], [place] [address] PCP - General 06/07/20 documented as of this encounter
--- OUTSIDE RECORDS SUMMARY | 2024-09-29 18:36 | XMS_ITS | Encounter Summary ---
Author Organization [facility] Address [address] [place] [address] Care Team Providers Care Marble Setter Name Role Phone Francisco Mckinley DO Primary Care Provider [phone] Reason for Visit * Reason Comments Med Refill Encounter Details Date Type Department Care Team (Late st Contact Info) Description 09/23/[address] 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 Gender Identity Not on file Sexual Orientation Not on file documented as of this encounter Plan of Treatment Upcoming Encounters Date Type Department Care Team (Late st Contact Info) Description 01/26/2025 8:40 AM MIXER PIGMENT [facility] [address] [facility] [address] [place] [address] Robert Estrada MD [address] [place] [address] documented as of this encounter Visit Diagnoses Diagnosis Uncomplicated opioid dependence Opioid type dependence, unspecified Hospice care patient Encounter for palliative care Other chronic pancreatitis documented in this encounter Care Teams Marble Setter Relationship Specialty Start Date End Date Francisco Mckinley DO [address] [address] PCP - General 06/07/20 documented as of this encounter
--- OUTSIDE RECORDS SUMMARY | 2024-09-29 18:36 | XMS_ITS | Encounter Summary ---
Author Organization [facility] Address [address] [place] [address] Care Team Providers Care Radio Engineer Name Role Phone Francisco Mckinley DO Primary Care Provider [phone] Reason for Visit * Reason Comments Medication Refill Encounter Details Date Type Department Care Team (Late st Contact Info) Description 09/25/2024 Refill [facility] Medicine [place] [address] [phone] Francisco Mckinley DO [address] [place] [phone] Closed fracture of left ankle, initial encounter (Primary Dx); Cellulitis of right lower extremity; Cellulitis of left lower extremity; Sepsis with acute liver failure without hepatic coma or septic shock, due to unspecified organism (CMS/HCC); History of hepatitis C; Uncomplicated opioid dependence; Chronic cholecystitis without calculus; RUQ abdominal pain Social History Tobacco Use Types Packs/Day Years [...] any time in the past 12 m [facility], were you homeless or living in [...] on file 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 Steffanie BECKETT * Telephone Encounter - Francisco Mckinley DO - 09/25/2024 5:59 PM CDT She should also be taking the morphine ER as well three times daily. Dilaudid sent to pharmacy with increased dose. Max 4 daily for ankle fracture. * Telephone Encounter - Martina Fletcher LPN - 09/25/2024 2:01 PM CDT Requesting increase of Dilaudid or change to something different as current dose is ineffective in controlling her pain.Martina Fletcher LPN, 09/25/2024 2:01 PM * Telephone Encounter - Lillian Sy - 09/25/2024 1:57 PM CDT Copied from [facility] #[id number]. Topic: Medication Request >> Sep 25, 2024 1:50 PM Lillian Chao wrote: Caller Name: Maribell Foreman Callback Number: Telephone Information: Medication (Ask patient/caregiver to spell if possible): HYDROmorphone (DILAUDID) 4 mg tablet Note: All medication prescriptions can be requested using one [facility] Preferred Pharmacy: [facility] [address] Call Notes: pt says she is on a pain contract and she only gets 2 tablets in 24 hrs and she is in alot of pain and wanting to know if this can be increased or changed to something else because it isn't enough. She states she is no weight bearing at all. Did caller contact the correct clinic for prescribing provider? Yes Ask caller if the refill is for a controlled medication. Is this for a controlled Medication? Yes Is there an encounter open? No documented in this encounter Plan of Treatment Upcoming Encounters Date Type Department Care Team (Late st Contact Info) Description 01/26/2025 8:40 AM CROSSING FLAGMAN Office Visit [facility] Gastroenterology- [address] [place] [phone] Robert Estrada MD [address] [place] [address] documented as of this encounter Visit Diagnoses Diagnosis Closed fracture of left ankle, initial encounter- Primary Cellulitis of right lower extremity Cellulitis and [...] quadrant documented in this encounter Care Teams Radio Engineer Relationship Specialty Start Date End Date Francisco Mckinley DO [address] [place] [address] PCP - General 06/07/20 documented as of this encounter
--- OUTSIDE RECORDS SUMMARY | 2024-09-29 18:36 | XMS_ITS | Encounter Summary ---
Author Organization [facility] Address [address] [place] [address] Care Team Providers Care Battery Vent Plug Inserter Name Role Phone Francisco Mckinley DO Primary Care Provider [phone] Reason for Visit * Reason Comments Med Refill Encounter Details Date Type Department Care Team (Late st Contact Info) Description 09/22/2024 Refill [facility] [address] [phone] Francisco Mckinley DO [address] [place] [phone] Uncomplicated opioid dependence; Hospice care patient; [...] any time in the past 12 m [facility], were you homeless or living in a group home (including now)? 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 Gender Identity Not on file Sexual Orientation Not on file documented as of this encounter Plan of Treatment Upcoming Encounters Date Type Department Care Team (Late st Contact Info) Description 01/26/2025 8:40 AM BEHAVIORAL HEALTH DIRECTOR [facility] [address] [facility] [address] [place] [address] Robert Estrada MD [address] [place] [address] documented as of this encounter Visit Diagnoses Diagnosis Uncomplicated opioid dependence Opioid type dependence, unspecified Hospice care patient Encounter for palliative care Other chronic pancreatitis documented in this encounter Care Teams Battery Vent Plug Inserter Relationship Specialty Start Date End Date Francisco Mckinley DO [address] [address] PCP - General 06/07/20 documented as of this encounter
--- OUTSIDE RECORDS SUMMARY | 2024-09-29 18:36 | XMS_ITS | Encounter Summary ---
Author Organization [facility] Address [address] [place] [address] Care Team Providers Care Health Inspector Name Role Phone Francisco Mckinley Primary Care Provider Encounter Details Date Type Department Care Team (Late st Contact Info) Description 09/23/2024 External Device Data ST[place] ABSTRACTION Provider, Abstract NO ADDRESS ON FILE Social History Tobacco Use Types Packs/Day Years [...] any time in the past 12 m on[facility], were you homeless or living in a [facility] (including now)? 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 Gender Identity Not on file Sexual Orientation Not on file documented as of this encounter Plan of Treatment Upcoming Encounters Date Type Department Care Team (Late st Contact Info) Description 01/26/2025 8:40 AM SKILLED LABORER [facility] 2[address] [facility] [address] [place] [address] Robert Estrada MD 2114 [facility] [address] [place] [phone] documented as of this encounter Visit Diagnoses Not on filedocumented in this encounter Care Teams Health Inspector Relationship Specialty Start Date End Date Francisco Mckinley DO [address] [place] [address] PCP - General 06/07/20 documented as of this encounter
--- OUTSIDE RECORDS SUMMARY | 2024-09-29 18:36 | XMS_ITS | Encounter Summary ---
Author Organization [facility] Address [address] [place] [address] Care Team Providers Care Cytology Technologist Name Role Phone Francisco Mckinley Primary Care Provider [phone] Encounter Details Date Type Department Care Team [...] were you homeless or living in a [facility] (including now)? 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 Gender Identity Not on file Sexual Orientation Not on file documented as of this encounter Plan of Treatment Upcoming Encounters Date Type Department Care Team (Late st Contact Info) Description 01/26/2025 8:40 AM BUSINESS SYSTEMS ANALYST [facility] 2[address] [facility] [address] [place] [address] Robert Estrada MD 2[address] [facility] [address] [place] [phone] documented as of this encounter Visit Diagnoses Not on filedocumented in this encounter Care Teams Cytology Technologist Relationship Specialty Start Date End Date Francisco Mckinley DO [address] [place] [address] PCP - General 06/07/20 documented as of this encounter
--- OUTSIDE RECORDS SUMMARY | 2024-09-29 18:36 | XMS_ITS | Clinical Summary ---
Author Organization [facility] [address] [place] [address] Address [address] [place] [address] Care Team Providers Care Economic Development Specialist Name Role Phone Francisco Mckinley DO Primary [...] 12/15/19 21 Active naloxone (Narcan) 4 mg/spray [place], Non-Aerosol EMERGENCY USE ONLY: ADMINISTER ONE SPRAY [...] TIMES DAILY 8514 mL 12/13/19 24 Active oiucxj-idscsamh-d dmitri Cheema) 3,000-9,500-15,00 0 unit capsuleIndication s:Cirrhosis [...] polyneuropathy, with long-term current use of insulin (CMS/[facility]) 1 Strip 3 times daily before meals. 100 Strip 2 06/03/19 25 Active BD Insulin Syringe Ultra-Fine 1 mL 31 gauge x 5/16 SyringeIndication s:Type 2 diabetes mellitus with diabetic polyneuropathy, with long-term current use of insulin ([facility]) FOR USE with insulin injections THREE TIMES DAILY (lantus and humalog) 200 Each 3 06/03/19 25 Active Blood-Glucose Meter,Continuous (Dexcom G7 Annealing Furnace Operator)Indicati ons:Type 2 diabetes mellitus with diabetic polyneuropathy, with long-term current use of insulin ([facility]) Use to monitor blood glucose continuously throughout the day. 1 Each 06/03/19 25 Active Blood-Glucose Sensor (Dexcom G7 Sensor) DeviceIndications :Type 2 diabetes mellitus with diabetic polyneuropathy, with long-term current use of insulin ([facility]) USE TO MONITOR BLOOD GLUCOSE CONTINUOUSLY THROUGH [...] mouth daily. 30 Tablet 09/02/19 25 Active morphine (MS CONTIN) 100 mg Controlled Release tabletIndications :Uncomplicated opioid dependence (CMS/HCC),Hospice care patient,Other chronic pancreatitis (CMS/HCC) Take 1 Tablet (100 mg) by mouth every 8 hours. Start date 09/22/2024 Max Daily Amount: 300 mg 90 Tablet 09/24/19 25 Active HYDROmorphone (DILAUDID) 4 mg tabletIndications :Cellulitis of right lower extremity,Celluli tis of left lower extremity,Sepsis with acute liver failure without hepatic coma or septic shock, due to unspecified organism (CMS/HCC),History of hepatitis C,Uncomplicated opioid dependence (CMS/HCC),Chronic cholecystitis without calculus,RUQ abdominal pain,Closed fracture of left ankle, initial encounter Take 1 Tablet (4 mg) by mouth every 6 hours as needed for Pain, Break-Through. Max Daily Amount: 16 mg 28 Tablet 09/26/19 25 Active nicotine (NICODERM CQ) 21 mg/24 hr patchIndications: Cigarette nicotine dependence without complication Apply 1 Patch to skin as directed every 24 hours. 14 Patch 2 07/26/19 25 2024 morphine (MS CONTIN) 100 mg Controlled Release [...] 16 mg 28 Tablet 09/04/19 25 2024 HYDROmorphone (DILAUDID) 4 mg tabletIndications [...] 8 mg 14 Tablet 09/18/19 25 2024 HYDROmorphone (DILAUDID) 4 mg tabletIndications [...] 8 mg 14 Tablet 09/25/19 25 2024 Discontin ued(Dose/ form adjustmen t) HYDROmorphone (DILAUDID) 4 mg tabletIndications :Cellulitis of [...] 4 mg 7 Tablet 10/02/19 25 2024 Discontin ued(Dose/ form adjustmen t) Active Problems Problem Noted Date Diagnosed Date [...] Encounters Date Type Department Care Team Description 09/29/2024 11:00 AM CDT Video Visit [address] [phone] Francisco Mckinley DO Closed fracture of ankle, unspecified laterality, initial encounter (Primary Dx); Cirrhosis of liver with ascites, unspecified hepatic cirrhosis type (CMS/HCC) 09/29/[address] [phone] Francisco Mckinley DO Patient Communication 09/25/[address] [address] Francisco Mckinley DO Provider Call 09/25/[address] [address] Francisco Mckinley DO Closed fracture of left ankle, initial encounter (Primary Dx); Cellulitis of right lower extremity; Cellulitis of left lower extremity; Sepsis with acute liver failure without hepatic coma or septic shock, due to unspecified organism (CMS/HCC); History of hepatitis C; Uncomplicated opioid dependence; Chronic cholecystitis without calculus; RUQ abdominal pain 09/23/2024 External Device Data STL ABSTRACTION Provider, Abstract 09/23/2024 External Device Data STL ABSTRACTION Provider, Abstract 09/23/[address] [address] Francisco Mckinley DO Uncomplicated opioid dependence; Hospice care patient; Other chronic pancreatitis 09/22/[address] [address] Francisco Mckinley DO Clinical Consult Before Scheduling 09/22/[address] [address] Francisco Mckinley DO Uncomplicated opioid dependence; Hospice care patient; Other chronic pancreatitis 09/22/[address] [address] Francisco Mckinley DO Uncomplicated opioid dependence; Hospice care patient; Other chronic pancreatitis 09/17/[address] [address] Francisco Mckinley DO Medication Assistance; Patient Communication 09/17/[address] [address] Francisco Mckinley DO Information 09/13/[address] [address] Francisco Mckinley DO Uncomplicated opioid dependence; Hospice care patient; Other chronic pancreatitis [address] [address] Francisco Mckinley DO Provider Call 09/02/[address] [address] Francisco Mckinley DO Medication Refill; Results; Pharmacy Clarification 08/28/[address] [address] Francisco Mckinley DO Information; Weight Check; Information 08/28/[address] [address] Francisco Mckinley DO Cellulitis of right lower extremity; Cellulitis of left lower extremity; Sepsis with acute liver failure without hepatic coma or septic shock, due to unspecified organism (CMS/HCC); History of hepatitis C; Uncomplicated opioid dependence; Chronic cholecystitis without calculus; RUQ abdominal pain 08/26/[address] [address] Francisco Mckinley DO Weight Gain 08/25/[address] [address] Francisco Mckinley DO Cellulitis of right lower extremity; Cellulitis of left lower extremity; Sepsis with acute liver failure without hepatic coma or septic shock, due to unspecified organism (CMS/HCC); History of hepatitis C; Uncomplicated opioid dependence; Chronic cholecystitis without calculus; RUQ abdominal pain 08/19/[address] [address] Francisco Mckinley DO Uncomplicated opioid dependence; Hospice care patient; Other chronic pancreatitis 08/19/[address] [address] Francisco Mckinley DO Cellulitis of right lower extremity; Cellulitis of left lower extremity; Sepsis with acute liver failure without hepatic coma or septic shock, due to unspecified organism (CMS/HCC); History of hepatitis C; Uncomplicated opioid dependence; Chronic cholecystitis without calculus; RUQ abdominal pain; Insomnia, unspecified type 08/12/[address] [address] Francisco Mckinley DO Cellulitis of right lower extremity; Cellulitis of left lower extremity; Sepsis with acute liver failure without hepatic coma or septic shock, due to unspecified organism (CMS/HCC); History of hepatitis C; Uncomplicated opioid dependence; Chronic cholecystitis without calculus; RUQ abdominal pain 08/06/[address] [phone] Francisco Mckinley DO Uncomplicated opioid dependence; Hospice care patient; Other chronic pancreatitis 08/04/[address] [phone] Francisco Mckinley DO 07/29/2024 External Device Data STL ABSTRACTION Provider, Abstract 07/29/2024 External Device Data STL ABSTRACTION Provider, Abstract 07/29/[address] [facility] [place] [address] [place] [phone] Meliton Mckinley MD Cirrhosis of liver without ascites, unspecified hepatic cirrhosis type (CMS/HCC) 07/29/[address] [phone] Francisco Mckinley DO Nausea and vomiting, unspecified vomiting type 07/28/[address] [phone] Francisco Mckinley DO Cellulitis of right lower extremity; Cellulitis of left lower extremity; Sepsis with acute liver failure without hepatic coma or septic shock, due to unspecified organism (CMS/HCC); History of hepatitis C; Uncomplicated opioid dependence; Chronic cholecystitis without calculus; RUQ abdominal pain 07/25/[address] [phone] Francisco Mckinley DO Information 07/23/[address] [phone] Francisco Mckinley DO Medication Refill 07/23/[address] [phone] Francisco Mckinley DO Medication Question; Patient Communication 07/22/[address] [phone] Francisco Mckinley DO Cellulitis of right lower extremity; Cellulitis of left lower extremity; Sepsis with acute liver failure without hepatic coma or septic shock, due to unspecified organism (CMS/HCC); History of hepatitis C; Uncomplicated opioid dependence; Chronic cholecystitis without calculus; RUQ abdominal pain 07/21/[address] [phone] Francisco Mckinley DO Pharmacy Change 07/17/[address] [phone] Francisco Mckinley DO Provider Call 07/16/2024 Orders Only [address] [phone] Ailyn Leon FNP COPD with exacerbation (CMS/HCC) (Primary Dx); Hepatic cirrhosis, unspecified hepatic cirrhosis type, unspecified whether ascites present (CMS/HCC); Pulmonary emphysema, unspecified emphysema type (CMS/HCC) 07/09/[address] [phone] Francisco Mckinley DO Cellulitis of right lower extremity; Cellulitis of left lower extremity; Sepsis with acute liver failure without hepatic coma or septic shock, due to unspecified organism (CMS/HCC); History of hepatitis C; Uncomplicated opioid dependence; Chronic cholecystitis without calculus; RUQ abdominal pain 07/09/[address] [phone] Francisco Mckinley DO 07/07/2024 2:00 PM CDT Video Visit [address] [phone] Ailyn Leon FNP Screening mammogram, encounter for (Primary Dx); COPD with exacerbation (CMS/HCC); Panlobular emphysema (CMS/HCC); Hepatic cirrhosis, unspecified hepatic cirrhosis type, unspecified whether ascites present (CMS/HCC); Essential hypertension; Symptomatic bradycardia 07/07/2024 Refill [facility] [address] [phone] Francisco Mckinley DO 07/01/2024 Telephone [facility] [address] [phone] Francisco Mckinley, DO Information from Last 3 Months Immunizations Immunization Administration Dates Next Due (ADACEL/BOOSTRIX)(10 YR UP) TDAP VACCINE, 0.5ML, IM 09/26/2021 (HAVRIX/VAQTA)(19 YRS UP) HE PATITIS A VACCINE ADULT DOSAGE 1 ML IMM 04/10/2006 (PREVNAR 20)(6 WKS UP) PNEUM OCOCCAL CONJUGATE VACCINE 20-VALENT (PCV20), POLYSACCHARIDE [id number] CONJUGATE, ADJUVANT 0.5 ML (PF) IM 12/19/2022 INFLUENZA VACCINE QUADRIVALE NT 6 MOS UP PF IM 12/19/2022,01/01/2019,06/07/2017 Family History Medical History Relation Name Comments Unknown Brother 1 Unknown Brother 2 Unknown Brother 3 Unknown Brother 4 Heart Disease Brother 5 of [place]. Other Brother 6 of suicide . Unknown Brother 7 Unknown Brother 8 Heart Disease Father Chavo Rios of mas sive [place]. Respiratory Disease Father Chavo Rios Has lung [...] any time in the past 12 m [facility], were you homeless or living in [...] on file Legal Sex Female 2:09 PM TV PRODUCTION ASSISTANT Gender Identity Not on file Sexual Orientation Not on file Last Filed Vital Signs Vital Sign Reading Time Taken Comments Blood Pressure 123/79 05/21/2024 1:00 PM TV PRODUCTION ASSISTANT Pulse 83 05/21/2024 1:00 PM TV PRODUCTION ASSISTANT Temperature 36.6 C (97.9 F) 05/21/2024 1:00 PM TV PRODUCTION ASSISTANT Respiratory Rate 18 05/21/2024 1:00 PM TV PRODUCTION ASSISTANT Oxygen Saturation 96% 05/21/2024 1:00 PM TV PRODUCTION ASSISTANT Inhaled Oxygen Concentration - - Weight 109.3 kg (241 lb) 07/07/2024 2:02 PM CDT Height 182.9 cm (6') 07/07/2024 2:02 PM CDT Body Mass Index 32.69 07/07/2024 2:02 PM CDT Plan of Treatment Upcoming Encounters Date Type Department Care Team (Late st Contact Info) Description 01/26/2025 8:40 AM TV PRODUCTION ASSISTANT Office Visit [facility]- [place] [address] [facility] [address] [place] [address] Robert Estrada MD [address] [facility] [address] [place] [address] Health Maintenance Due Date Last [...] 09/27/2031 09/26/2021 Medical Devices Implanted Type Area Payroll Human Resources Assistant Device Identifier Shelf Expiration Date Model / Serial / Lot Medtronic Ra Lead 5076-52-05/10/19 23 Implanted:05/10 (Quantity not on file) Lead [employer] 5076-52 / [id number] / Medtronic Rv Lead 5076-58-05/10/19 23 Implanted:05/10 (Quantity not on file) Lead [employer] 5076-58 / [id number] / Medtronic Pacemaker [id number]/22/202 3 Implanted:05/10 (Quantity not on file) Pacemaker [employer] [id number] / [id number] / Description:Dr. Wyman [place] [phone] Procedures Procedure Name Priority Date/Time Associated Diagnosis Comments POTASSIUM LEVEL Routine 09/01/2024 10:53 AM CDT Fluid retention MICROALBUMIN/CREATIN INE RATIO, RANDOM UR Routine 04/03/2024 1:11 PM TV PRODUCTION ASSISTANT Type 2 diabetes mellitus with diabetic polyneuropathy, with long-term current use of insulin (CMS/HCC) HEMOGLOBIN A1C Routine 10/23/2023 LIPID PANEL Routine 04/26/2023 11:05 AM TV PRODUCTION ASSISTANT Cirrhosis of liver without ascites, unspecified hepatic cirrhosis type (CMS/HCC) COLONOSCOPY REPORT 10/03/2022 3: 34 PM CDT HM DIABETES EYE EXAM Routine 07/30/2022 10:18 AM CDT MAMMO SCREEN BILAT W OR WO CAD Routine 04/29/2019 12:45 PM TV PRODUCTION ASSISTANT Visit for screening mammogram from Last 3 Months or Most Recently Relevant to Health Maintenance Results * POTASSIUM LEVEL (09/01/2024 10:53 AM CDT) POTASSIUM 3.7 3.5 - 5.3 mmol/L [facility] Comment: Test Performed at: [facility] [address] [place] [address] Mckinley Urbano MD Blood 09/01/2024 10:5 3 AM CDT 09/01/2024 10:54 AM CDT us Francisco Mckinley DO CHEMISTRY ORDERABLES Final Re sult [facility] [phone] [facility] [address] * MICROALBUMIN/CREATININE RATIO, RANDOM UR (04/03/2024 1:11 PM TV PRODUCTION ASSISTANT) Creatinine, Urine 222 20 - 275 mg/dL [...] within a diagnostic category. Test Performed at: [facility] [address] [place] [address] Mckinley Urbano MD Urine URINE SPECIMEN OBTAINED BY CLEAN CATCH PROCEDURE / Unknown 04/03/2024 1:11 PM TV PRODUCTION ASSISTANT 04/04/2024 2:48 AM TV PRODUCTION ASSISTANT us Francisco Mckinley DO URINE ORDERABLES Final Result [facility] [phone] [facility] [address] [facility] [place] [phone] * HEMOGLOBIN A1C (10/23/2023) Pathologist [facility] ABSTRACTED HGB A1C 5.2 % Blood 10/23/2023 us Abstract Provider CHEMISTRY ORDERABLES Final Res ult * (ABNORMAL) LIPID PANEL (04/26/2023 11:05 AM TV PRODUCTION ASSISTANT) CHOLESTEROL 249(H) <200 mg/dL [facility] HDL 82 > OR = 50 mg/dL [facility] TRIGLYCERIDE 130 <150 mg/dL [facility] LDL CALCULATED 142(H) mg/dL (calc) [facility] Comment: Reference range: <100 Desirable range <100 mg/dL for primary prevention; <70 mg/dL for patients with CHD or diabetic patients with > or = 2 CHD risk factors. LDL-C is now calculated using the Collins-Cody calculation, which is a validated novel method providing better accuracy than the Friedewald equation in the estimation of LDL-C. Collins SS et al. FITZ. 2013;310(19): 7698-2023 (http://education.Yuepu Sifang.Mobi-Moto/faq/RXT178) CHOL/HDL RATIO 3.0 <5.0 (calc) [facility] TOTAL NON-HDL CHOL(LDL+VLDL) 167(H) <130 mg/dL (calc) [facility] Comment: For patients with diabetes plus 1 major ASCVD risk factor, treating to a non-HDL-C goal of <100 mg/dL (LDL-C of <70 mg/dL) is considered a therapeutic option. Test Performed at: [facility] [address] [place] [address] Mckinley Urbano MD Blood 04/26/2023 11:0 5 AM TV PRODUCTION ASSISTANT 04/27/2023 3:10 AM TV PRODUCTION ASSISTANT Francisco Mckinley DO CHEMISTRY ORDERABLES Final Re sult [facility] [phone] [facility] [address] [place] [address] * COLONOSCOPY REPORT (10/03/2022 3:34 PM CDT) Narrative Procedure Note Robert Estrada MD - 10/03/2022 3:34 PM CDT [facility] GI Patient Name: Maribell Foreman Procedure Date: [...] PM Scope Out: 3:32:23 PM [address] [place], [place] Robert Estrada MD GI PROCEDURE ORDERABLES F inal Result * HM DIABETES EYE EXAM (07/30/2022 10:18 AM CDT) us Abstract Provider HEALTH MAINTENANCE Final Resul t * MAMMO SCREEN BILAT W OR WO CAD (04/29/2019 12:45 PM TV PRODUCTION ASSISTANT) Anatomical Region Laterality Modality Breast Bilateral Other Narrative 04/30/2019 7:17 PM TV PRODUCTION ASSISTANT Bilateral Mammogram Reason for Exam: Screening Comparison: [...] Recently Relevant to Health Maintenance Insurance MEDICAID [place] RX INFOCROSSING Medicaid RX [employer] PLANS (INTERNAL) [facility] Internal Plans Advance Directives For more information, please contact: [phone] Documents on File Type Date Recorded Patient Skiver Box Toe Expl anation Patient Life Sustaining Treatment Doc 07/31/2024 10:50 AM OHDNR Order * Full Code (Latest Code Status on File) Date Activated Date Inactivated Comments 05/18/2024 3:06 PM 05/21/2024 4:34 PM * Full Code Date Activated Date Inactivated Comments 03/27/2022 10:19 PM 04/03/2022 10:07 PM * Full Code Date Activated Date Inactivated Comments 03/29/2021 7:03 AM 03/29/2021 10:40 AM Care Teams Economic Development Specialist Relationship Specialty Start Date End Date Francisco Mckinley DO [address] [address] PCP - General 06/07/20
--- OUTSIDE RECORDS SUMMARY | 2024-09-29 18:36 | XMS_ITS | Encounter Summary ---
Author Organization [facility] Address [address] [place] [address] Care Team Providers Care Stable Cleaner Name Role Phone Francisco Mckinley DO Primary Care Provider [phone] Reason for Visit * Reason Comments Provider Call Encounter Details Date Type Department Care Team (Late st Contact Info) Description 09/25/2024 Telephone [facility] Medicine [place] [address] [address] Francisco Mckinley DO [address] [place] [phone] Provider Call Social History Tobacco Use [...] any time in the past 12 m [facility], were you homeless or living in a correction (including now)? 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 Topic: [facility] Call >> Sep 25, 2024 3:08 PM Erna Gloria wrote: Caller is requesting to speak with Clinical Care Team. Caller Name: Samantha Delarosa Callback Number: [phone] Clinician Type: Hospice Call Notes: Patient was re-admitted today following her hospital discharge for fx right ankle. Is this addressing an immediate patient care need? No documented in this encounter Plan of Treatment Upcoming Encounters Date Type Department Care Team (Late st Contact Info) Description 01/26/2025 8:40 AM SLICER MACHINE OPERATOR Office Visit [facility] Gastroenter[facility] [place] [address] [place] [address] Robert Estrada MD [address] [facility] [address] [place] [address] documented as of this encounter Visit Diagnoses Not on filedocumented in this encounter Care Teams Stable Cleaner Relationship Specialty Start Date End Date Francisco Mckinley DO [address] [place] [address] PCP - General 06/07/20 documented as of this encounter
--- OUTSIDE RECORDS SUMMARY | 2024-09-29 18:36 | XMS_ITS | Encounter Summary ---
Author Organization [facility] Address [address] [place] [address] Care Team Providers Care [employer] Name Role Phone Francisco Mckinley DO Primary Care Provider [phone] Reason for Visit * Reason Comments Clinical Consult Before Scheduling Encounter Details Date Type Department Care Team (Late st Contact Info) Description 09/22/2024 Telephone [facility] Medicine [place] [address] [address] Francisco Mckinley DO [address] [place] [phone] Clinical Consult Before Scheduling Social History [...] any time in the past 12 m [facility], were you homeless or living [...] on file Legal Sex Female 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 Topic: Symptomatic Care >> Sep 22, 2024 [...] st Contact Info) Description 01/26/2025 8:40 AM BIOLOGY TUTOR [facility] [address] [address] Robert Estrada MD [address] [address] documented as of this encounter Visit Diagnoses Not on filedocumented in this encounter Care Teams [employer] Relationship Specialty Start Date End Date Francisco Mckinley DO [address], [place] [address] PCP - General 06/07/20 documented as of this encounter
--- OUTSIDE RECORDS SUMMARY | 2024-09-29 18:36 | XMS_ITS | Encounter Summary ---
Author Organization [facility] Address [address] [place] [address] Care Team Providers Care Director Report Name Role Phone Francisco Mckinley DO Primary Care Provider [phone] Encounter Details Date Type Department Care Team (Late st Contact Info) Description 04/04/2024 Results [facility] [address] [place] [address] Meliton Mckinley MD [address] [place] [address] POC URINALYSIS DIPSTICK AUTOMATED Social [...] any time in the past 12 m [facility], were you homeless or living in a longterm (including now)? Yes 02/01/2024 Feeling Safe Answer Date Recorded Are you in a relationship wi th someone who hurts you emotionally and/or physically? No 10/03/2022 Comments No Sex and Gender Information Value Date Recorded Sex Assigned at Not on file Legal Sex Female 2:09 PM UPHOLSTERY ESTIMATOR Gender Identity Not on file Sexual Orientation Not on file documented as of this encounter Plan of Treatment Upcoming Encounters Date Type Department Care Team (Late st Contact Info) Description 01/26/2025 8:40 AM UPHOLSTERY ESTIMATOR [facility] 2[address] [facility] [address] [place] [address] Robert Estrada MD 2114 [facility] [address] [place] [address] documented as of this encounter Visit Diagnoses Not on filedocumented in this encounter Additional Health Concerns Assessment Noted Time PHQ-9 Depression Total Score: 3 04/03/19 25 12:00 PM UPHOLSTERY ESTIMATOR documented as of this encounter Care Teams Director Report Relationship Specialty Start Date End Date Francisco Mckinley DO [address] [place] [phone] PCP - General 06/07/20 documented as of this encounter
--- NOTE | 2024-09-29 18:41 | W.ED.EXTPRO ---
HPI - Extremity Problem General: Chief complaint: Extremity Problem,Nontraumatic Stated complaint: Rt Ankle Injury Time Seen by Provider: 09/29/24 18:33 Source: patient Mode of arrival: wheelchair Limitations: no limitations History of Present Illness: Patient is a 49-year-old female with a complex medical history here for swelling to her right lower extremity. Approximately a week ago patient injured her right ankle sustaining a trimalleolar fracture. It was unable to be reduced here in the emergency department thus she was admitted for podiatry consult. Due to her actively being on hospice and multiple other medical conditions-best course of action was for reduction and immobilization due to the potential risks of surgery and recovery. Please see Dr. Ellison's note during his consult listed below: -Given the patient's complex medical history?including active hospice care, infective endocarditis, cirrhosis of the liver, uncontrolled diabetes, a history of substance abuse, prior homelessness, and the presence of an implanted cardiac pacemaker?pursuing open reduction and internal fixation for the right trimalleolar ankle fracture presents significant perioperative risks that outweigh potential benefits. In light of these factors, the most appropriate course of action is closed reduction in the operating room under monitored anesthesia care, followed by application of a well-molded short leg cast to achieve and maintain alignment as comfortably as possible. This approach minimizes surgical risk, avoids the physiologic burden of general anesthesia, and aligns with the patient?s hospice-directed goals of care by focusing on pain control, limb positioning, and quality of life rather than aggressive intervention. Patient understands and is amenable to treatment plan. Patient states she has been doing good and trying to elevate the extremity. She states she has recently noticed swelling to the leg and feeling like her cast is very tight. She is also having some paresthesias to her foot and feels like there might be some color change. Patient states she does have follow-up with podiatry tomorrow. Complaint: extremity pain and extremity swelling Onset (ago): day(s) Pain Consistency: constant Location: right and lower extremity Radiation: none Relieving factors: nothing Exacerbating factors: nothing Associated symptoms: Reports no associated symptoms; Deny chest pain or fever(s) Context: recent surgery/procedure Related Data Home Medications ?Medication ?Instructions ?Recorded ?Confirmed tenofovir disoproxil fumarate 300 300 mg PO DAILY 02/09/24 07/08/25 mg tablet (Viread) albuterol sulfate 90 mcg/actuation 2 puff inhalation Q6H PRN 10/19/23 09/23/24 aerosol inhaler (Ventolin HFA) Shortness Of Breath amitriptyline 75 mg tablet 75 mg PO BEDTIME 10/19/23 09/23/24 doxepin 10 mg capsule 10 mg PO BEDTIME PRN Sleep 10/19/23 09/23/24 levalbuterol tartrate 45 2 inh inhalation Q6H PRN Shortness 10/19/23 09/23/24 mcg/actuation aerosol inhaler Of Breath (Xopenex HFA) cholecalciferol (vitamin D3) 1,250 50,000 unit PO Q7D 01/17/24 09/23/24 mcg (50,000 unit) capsule gabapentin 300 mg capsule 600 mg PO BID 01/17/24 09/23/24 rifaximin 550 mg tablet (Xifaxan) 550 mg PO BID 01/17/24 09/23/24 insulin glargine 100 unit/mL See Rx Instructions .Route .COMPLEX 09/23/24 09/23/24 subcutaneous solution (Lantus U-100 Insulin) ipratropium 0.5 mg-albuterol 3 mg See Rx Instructions .Route .COMPLEX 09/23/24 09/23/24 (2.5 mg base)/3 mL nebulization soln isosorbide mononitrate 60 mg 60 mg PO DAILY 09/23/24 09/23/24 tablet,extended release 24 hr Held on 09/24/24. Instructions: Resume on 09/26/24. morphine 100 mg tablet,extended 100 mg PO Q8H 09/23/24 09/23/24 release (MS Contin) nicotine 7 mg/24 hr daily 1 patch transdermal Q24H 09/23/24 09/23/24 transdermal patch nifedipine 30 mg tablet,extended 30 mg PO DAILY 09/23/24 09/23/24 release 24 hr (Procardia XL) Held on 09/24/24. Instructions: Resume on 09/27/24. ondansetron 4 mg disintegrating 4 mg PO Q6H PRN Nausea And Vomiting 09/23/24 09/23/24 tablet spironolactone 100 mg tablet 100 mg PO DAILY 07/08/25 07/08/25 (Aldactone) hydromorphone 4 mg tablet 4 mg PO BID PRN Break Thur Pain 09/24/24 09/24/24 Previous Rx's ?Medication ?Instructions ?Recorded lactulose 10 gram/15 mL oral 90 ml PO TID 30 days #8,100 mL 08/19/23 solution levothyroxine 50 mcg tablet 50 mcg PO QAM 30 days #30 tabs 08/19/23 [id number] 1 cap PO TID 30 days #30 caps 08/19/23 3,000-9,500-15,000 unit capsule, delayed rel (Creon) tizanidine 4 mg tablet 4 mg PO Q6H PRN Spasms 10 days #30 08/19/23 tabs enoxaparin 40 mg/0.4 mL 40 mg (0.4 mL) SUBCUT Q24H 4 weeks 09/24/24 subcutaneous syringe (Lovenox) #11.2 mL naloxone 4 mg/actuation nasal 4 mg intranasal Q2M PRN opioid 09/24/24 spray (Narcan) overdose #2 ea Allergies Allergy/AdvReac Type Severity Reaction Status Date / Time codeine Allergy Unknown Unknown Verified 09/18/24 08:02 aspirin Allergy ALGY-Hives Verified 09/18/24 08:02 diphenhydramine (From Allergy ADR-Muscle Verified 09/18/24 08:02 Benadryl) Pain Sulfa (Sulfonamide Allergy ALGY-Swell Verified 09/18/24 08:02 Antibiotics) Lip/Tongue/Throat Review of Systems Const: Denies: fever(s), chills, body aches, fatigue or malaise Card: Denies: chest pain Resp: Denies: dyspnea Musc: Reports: extremity pain, extremity swelling and joint pain (R ankle); Denies: neck pain, back pain, joint swelling, joint redness, joint warmth or joint stiffness Neuro: Reports: headache(s); Denies: numbness in extremities, weakness in extremities or sensory changes PFS ED PFSH: Medical History Hypokalemia long-term (current) use of opiate analgesic Pain management contract signed Metabolic encephalopathy SSS (sick sinus syndrome) Presence of permanent cardiac pacemaker Seizure disorder Tobacco dependency Hypothyroidism Accidental fentanyl overdose Overdose Cardiac arrest COPD (chronic obstructive pulmonary disease) Chronically on 3 L of oxygen Smoker Thrombocytopenia Bilateral pulmonary embolism Hepatitis B Pulmonary embolism Nicotine dependence, cigarettes, with unspecified nicotine-induced disorders Chronic hepatitis B Chronic abdominal pain Chronic hip pain Leg cramps Stomach cancer Pelvic inflammatory disease Diabetes mellitus Hypertension Encephalopathy Cirrhosis Gastroesophageal reflux GI bleeding Surgical History H/O right hemicolectomy History of right hemicolectomy H/O tubal ligation History of laparotomy History of hysterectomy Family History Mother Diabetes Father CAD (coronary artery disease) Other Cancer Social History Smoking and tobacco/nicotine status: former use of tobacco/nicotine (quit 2022) Quit status (tobacco/nicotine): has quit using Year quit tobacco: 2020 Former quit date comment: 2ppd x 26 year Hx Alcohol intake: never Substance/Drug Use: never Physical Exam Const: COMMON NORMALS: no limitations, alert and well nourished GENERAL APPEARANCE: cooperative and appears older than stated age ORIENTATION/CONSCIOUSNESS: Yes awake, Yes oriented to person, Yes oriented to place and Yes oriented to time Resp: COMMON NORMALS: normal respiratory effort and clear to auscultation bilaterally AUSCULTATION: clear to auscultation bilaterally Cardio: COMMON NORMALS: regular rhythm RATE: tachycardic RHYTHM: regular rhythm Extremity: COMMON NORMALS: capillary refill normal GENERAL: Yes normal exam except as noted OTHER: casted R LE; does feel tight superiorly; she has normal cap refill; reporting decreased sensation to toes; will remove cast and reassess extremity cast and plaster fully removed for assessment of extremity; she does report leg feeling better once this was removed; she has extensive edema and bruising as expected; cap refill is brisk and equal to left; DP/PT pulses are easily palpable; foot is warm to the touch; mild erythema to lower leg thought to be more dependent edema related than actual cellulitis Neuro: COMMON NORMALS: moves all extremities and no focal motor deficits SENSORIUM/ORIENTATION: Yes alert, Yes oriented to person, Yes oriented to place and Yes oriented to time Course Vital Signs: Vital signs: Vital Signs Temperature 98.6 F 09/29/24 18:33 Pulse Rate 115 H 09/29/24 18:33 Respiratory Rate 18 09/29/24 18:33 Blood Pressure 136/74 09/29/24 18:33 Pulse Oximetry 93 09/29/24 18:33 Oxygen Delivery Me thod Room Air 09/29/24 18:33 MDM - Extremity (Nontraumatic) Medical Decision Making US showing no DVT. XR obtained and joint mortise still stable. Will splint with posterior leg/stir up and she will follow up with podiatry as scheduled tomorrow. Medical Records I reviewed the patient's medical records. Lab Data Radiology Impressions Ankle X-Ray 09/29/24 18:33 IMPRESSION: Acute bilateral malleolar fractures, mildly displaced. Questionable fracture of the posterior malleolus as well. Venous Duplex 09/29/24 19:01 IMPRESSION: No evidence of deep vein thrombosis. All radiology interpretation(s) finalized by discharge Discharge Plan Discharge Patient Disposition: Home Clinical Impression: Closed trimalleolar fracture Qualifiers: Encounter type: initial encounter Laterality: right Qualified Code(s): S82.851A - Displaced trimalleolar fracture of right lower leg, initial encounter for closed fracture Condition: Stable Prescriptions: No Action amitriptyline 75 mg tablet 75 mg PO BEDTIME doxepin 10 mg capsule 10 mg PO BEDTIME PRN (Reason: Sleep) albuterol sulfate [Ventolin HFA] 90 mcg/actuation HFA aerosol inhaler 2 puff INHALATION Q6H PRN (Reason: Shortness Of Breath) levalbuterol tartrate [Xopenex HFA] 45 mcg/actuation HFA aerosol inhaler 2 inh inhalation Q6H PRN (Reason: Shortness Of Breath) tenofovir disoproxil fumarate [Viread] 300 mg tablet 300 mg PO DAILY tizanidine 4 mg tablet 4 mg PO Q6H PRN (Reason: Spasms) 10 Days Qty: 30 0RF levothyroxine 50 mcg tablet 50 mcg PO QAM 30 Days Qty: 30 2RF lactulose 10 gram/15 mL solution 90 ml PO TID 30 Days Qty: 8100 0RF Creon 3,000-9,500- 15,000 unit capsule,delayed release(DR/EC) 1 cap PO TID 30 Days Qty: 30 0RF cholecalciferol (vitamin D3) 1,250 mcg (50,000 unit) capsule 50,000 unit PO Q7D Xifaxan 550 mg tablet 550 mg PO BID gabapentin 300 mg capsule 600 mg PO BID ipratropium-albuterol 0.5 mg-3 mg(2.5 mg base)/3 mL solution for nebulization See Rx Instructions .ROUTE .COMPLEX Rx Instructions: use 1 vial IN NEBULIZER EVERY 4 HOURS NEEDED FOR WHEEZING OR SHORTNESS OF BREATH insulin glargine [Lantus U-100 Insulin] 100 unit/mL solution See Rx Instructions .ROUTE .COMPLEX Rx Instructions: inject 10 units SUBCUTANEOUSLY at breakfast and 40 units AT BEDTIME spironolactone [Aldactone] 100 mg Tablet 100 mg PO DAILY isosorbide mononitrate 60 mg tablet extended release 24 hr 60 mg PO DAILY morphine [MS Contin] 100 mg tablet extended release 100 mg PO Q8H Rx Instructions: max 3per day ondansetron 4 mg tablet,disintegrating 4 mg PO Q6H PRN (Reason: Nausea And Vomiting) nicotine 7 mg/24 hr Patch 24 Hour 1 patch TRANSDERMAL Q24H nifedipine [Procardia XL] 30 mg tablet extended release 24hr 30 mg PO DAILY hydromorphone 4 mg Tablet 4 mg PO BID PRN (Reason: Break Thur Pain) enoxaparin [Lovenox] 40 mg/0.4 mL syringe 40 mg SUBCUT Q24H 28 Days Qty: 11.2 0RF naloxone [Narcan] 4 mg/actuation spray,non-aerosol 4 mg intranasal Q2M PRN (Reason: opioid overdose) Qty: 2 0RF Rx Instructions: spray 1 dose into ONE nostril; alternate nostrils w each dose until help arrives Discharge Orders: Discharge ED (Routine); Ordered 09/29/24 Ordered By: Sulma Horowitz Referrals: Francisco Mckinley DO [Primary Care Provider] Patient Instructions: Patient Portal & Marcelino Instructions Activity Restrictions/Additional Instructions: As we discussed, please 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 You need to stay in your splint at all times until you see them. 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
--- NOTE | 2024-09-29 19:01 | USR_ITS ---
PROCEDURE INFORMATION: Exam: US Duplex Right Lower Extremity Veins, Limited Exam date and time: 09/29/2024 8:55 PM Age: 49 years old Clinical indication: Edema, localized; Lower extremity, right; Additional info: Swelling, recent FX TECHNIQUE: Imaging protocol: Real-time duplex ultrasound of the right extremity with 2-D villatoro scale, color Doppler flow and spectral waveform analysis including responses to compression and other maneuvers (when performed) with image documentation. Limited exam was focused on the right lower extremity veins. COMPARISON: CT abdomen pelvis wo con [id number] 03/31/2024 5:33 PM FINDINGS: Right deep veins: Unremarkable. The common femoral, femoral, proximal profunda femoral and popliteal veins are patent without thrombus. Normal Doppler waveforms. Normal compressibility and/or augmentation response. Superficial veins: Greater saphenous vein at the saphenofemoral junction is patent without thrombus. Soft tissues: Unremarkable. US/[place] [id number] IMPRESSION: No evidence of deep vein thrombosis.
[2024-09-29] MEDS: morphine 4 mg/mL SDV 1 mL IM (20:35)
[2024-09-29] MEDS: ondansetron 2 mg/ML SDV 2 mL 4 MG IM (20:40)
== END 2024-09-29 22:21 | disposition home or self-care (01) ==
PROVIDERS: Emergency Provider Physician Assistant; PCP Family Medicine
DX: S82.851D Displaced trimalleolar fracture of right lower leg, subsequent encounter for closed fracture with routine healing (principal); Z87.891 Personal history of nicotine dependence; J44.9 Chronic obstructive pulmonary disease, unspecified; E11.9 Type 2 diabetes mellitus without complications; I10 Essential (primary) hypertension; X58.XXXD Exposure to other specified factors, subsequent encounter
CPT/HCPCS: 29515; 73610; 93971; 96372; 99284; 99291; J2270; J2405

== ENCOUNTER → 2024-09-30 09:31 | Outpatient (BNVA) | payer MEDICAID, SELFPAY | PROVIDERS: PCP Family Medicine; Visit Provider Podiatrist Foot & Ankle Surgery | DX: S82.851A Displaced trimalleolar fracture of right lower leg, initial encounter for closed fracture (principal); X58.XXXA Exposure to other specified factors, initial encounter | CPT/HCPCS: 29405; 99024 ==

== ENCOUNTER → 2024-10-08 08:13 | Outpatient (BNVA) | payer MEDICAID, SELFPAY | PROVIDERS: PCP Family Medicine; Visit Provider Podiatrist Foot & Ankle Surgery | DX: S82.851D Displaced trimalleolar fracture of right lower leg, subsequent encounter for closed fracture with routine healing (principal); X58.XXXD Exposure to other specified factors, subsequent encounter | CPT/HCPCS: 29405; 99024 ==

== ENCOUNTER → 2024-10-09 11:16 | Outpatient (BNVA) | payer MEDICAID, SELFPAY | PROVIDERS: PCP Family Medicine; Visit Provider Student in an Organized Health Care Education/Training Program | DX: K74.60 Unspecified cirrhosis of liver (principal) | CPT/HCPCS: 99213 ==

== ENCOUNTER → 2024-10-21 15:07 | Outpatient (BNVA) | payer MEDICAID, SELFPAY | PROVIDERS: PCP Family Medicine; Visit Provider Podiatrist Foot & Ankle Surgery | DX: S82.851A Displaced trimalleolar fracture of right lower leg, initial encounter for closed fracture (principal); X58.XXXA Exposure to other specified factors, initial encounter | CPT/HCPCS: 73610; 99214 ==

== ENCOUNTER → 2024-10-23 06:09 | Day surgery (SDC) | payer MEDICAID, SELFPAY ==
--- NOTE | 2024-10-22 12:49 | PC.NURSE ---
[employer] Former had difficult time completing pt pre op, pt was difficult to understand and kept falling asleep while on the phone, reviewed pre op with pt. Discussed pt could take pain medication with a small sip of water, nothing to eat or drink after midnight. Pt has not took heart medication over the last few days.
[2024-10-23] VITALS (10 sets, daily range): BP systolic 107–156; BP diastolic 68–88; PULSE 73–96; RESP 12–18; TEMP 36.1–36.4; O2SAT 87–98; BMI 35.3
--- NOTE | 2024-10-23 | XR_ITS ---
WS: [id number] XR ankle RT min 3V* [id number] REASON FOR EXAM: SURGERY FINDINGS: Trans calcaneal, talar fixation of fracture dislocation of the tibia/tibiotalar joint with reduction. XR/XR ankle RT min 3V* [id number] IMPRESSION: Intraoperative fracture fixation and arthrodesis as above.
--- NOTE | 2024-10-23 07:33 | P.ANESASSM_ITS ---
Pre-Anesthetic Assessment Height/Weight: Height 1.88 m Weight 124.738 kg O2 Del Method Room Air 10/23/24 06:52 Preop Diagnosis: Right ankle dislocation Operation Date: 10/23/24 08:10 Proposed Procedures p Open Treatment of Ankle Dislocation(Right) - Meliton Ellison DPM Last intake: Intake Last Liquid Date 10/22/24 Last Liquid Time 23:55 Last Solid Date 10/21/24 Last Solid Time 20:00 CV/HEM Arrythmia (SSS w/ pacemaker) hx endocarditis Pacemaker for Sick sinus syndrome Hx PE CONCLUSIONS Normal LV size and ejection fraction of 56%. Asymmetric septal hypertrophy.Grade I/IV diastolic dysfunction (abnormal relaxation filling pattern), normal to mildly elevated filling pressures. Moderately increased left atrial size. Moderate mitral annular calcification. The LV outflow tract velocity was 2.6 m/s at rest. It went up to 3.6 cm/s with Valsalva. Peak gradient was 53 mmHg. Resting peak gradient of 27 mmHg The above features are consistent with hypertrophic obstructive cardiomyopathy (HOCM) There is no pericardial effusion. There are no intracardiac masses. Compared to the previous study, no significant change in the 2D findings. The gradient across the LV outflow tract was normal? Hepatic Cirrhosis hep B Metabolic Thyroid Disease Neuropsych Seizure Anesthetic Plan ASA status: 4 Anesthesia: Regional (specify below) Risk of > 500 ml blood loss (7ml/kg in children): No Medications/Allergies Home Medications ?Medication ?Instructions ?Recorded ?Confirmed ?Last Taken ?Type tenofovir disoproxil fumarate 300 300 mg PO DAILY 12/1010/23/24 10/21/24 History mg tablet (Viread) lactulose 10 gram/15 mL oral 90 ml PO TID 30 days #8,1 00 mL 08/19/23 10/22/24 09/23/24 Rx solution levothyroxine 50 mcg tablet 50 mcg PO QAM 30 days #30 tabs 08/19/23 10/23/24 10/21/24 Rx nxmrrh-ahrazhnj-nnmjpwa 1 cap PO TID 30 days #30 cap s 08/19/23 10/23/24 10/21/24 Rx 3,000-9,500-15,000 unit capsule, delayed rel (Creon) albuterol sulfate 90 mcg/actuation 2 puff inhalation Q 6H PRN 10/19/23 10/22/24 10/20/24 History aerosol inhaler (Ventolin HFA) Shortness Of Breath amitriptyline 75 mg tablet 75 mg PO BEDTIME 10/19/23 0 10/23/24 10/21/24 History doxepin 10 mg capsule 10 mg PO BEDTIME PRN Sleep 0 10/19/23 10/23/24 10/21/24 History levalbuterol tartrate 45 2 inh inhalation Q6H PRN Nitza rtness 10/19/23 10/23/24 10/21/24 History mcg/actuation aerosol inhaler Of Breath (Xopenex HFA) cholecalciferol (vitamin D3) 1,250 50,000 unit PO Q7D 01/17/24 10/23/24 10/21/24 History mcg (50,000 unit) capsule gabapentin 300 mg capsule 600 mg PO BID 01/17/2410/2310/21/24 History rifaximin 550 mg tablet (Xifaxan) 550 mg PO BID 10/23/24 10/21/24 History insulin glargine 100 unit/mL See Rx Instructions .Rout e .COMPLEX 09/23/24 10/23/24 10/21/24 History subcutaneous solution (Lantus U-100 Insulin) ipratropium 0.5 mg-albuterol 3 mg See Rx Instructions .Route .COMPLEX 09/23/24 10/23/24 10/21/24 History (2.5 mg base)/3 mL nebulization soln isosorbide mononitrate 60 mg 60 mg PO DAILY 09/23/24 0 10/23/24 10/21/24 History tablet,extended release 24 hr Held on 09/24/24. Instructions: Resume on 09/26/24. morphine 100 mg tablet,extended 100 mg PO Q8H 09/23/24 10/23/24 10/21/24 History release (MS Contin) nicotine 7 mg/24 hr daily 1 patch transdermal Q24H 11/1010/22/24 10/21/24 History transdermal patch nifedipine 30 mg tablet,extended 30 mg PO DAILY 10/23/24 10/21/24 History release 24 hr (Procardia XL) Held on 09/24/24. Instructions: Resume on 09/27/24. spironolactone 100 mg tablet 100 mg PO DAILY 09/23/24 10/23/24 10/21/24 History (Aldactone) hydromorphone 4 mg tablet 4 mg PO BID PRN Break Thur P ain 09/24/24 10/22/24 10/22/24 History naloxone 4 mg/actuation nasal 4 mg intranasal Q2M PRN opioid 09/24/24 10/22/24 Unknown Rx spray (Narcan) overdose #2 ea Knee Scooter #1 ea 10/14/24 10/21/24 Unkn own Rx enoxaparin 40 mg/0.4 mL 40 mg (0.4 mL) SUBCUT Q24H 4 weeks 10/21/24 10/23/24 10/21/24 Rx subcutaneous syringe (Lovenox) #11.2 mL tizanidine 6 mg capsule See Rx Instructions .Route 0 10/21/24 10/23/24 10/21/24 Rx .COMPLEX #21 caps Allergies Allergy/AdvReac Type Severity Reaction Status Date / Time codeine Allergy Unknown Unknown Verified 10/23/24 07:01 aspirin Allergy ALGY-Hives Verified 10/23/24 07:01 diphenhydramine (From Allergy ADR-Muscle Verified 10/23/24 07:01 Benadryl) Pain Sulfa (Sulfonamide Allergy ALGY-Swell Verified 10/23/24 07:01 Antibiotics) Lip/Tongue/Throat [facility] Anesthesia Medical History Hypokalemia 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 Pain management contract signed Metabolic encephalopathy SSS (sick sinus syndrome) Presence of permanent cardiac pacemaker Seizure disorder Tobacco dependency Hypothyroidism Accidental fentanyl overdose Overdose Cardiac arrest COPD (chronic obstructive pulmonary disease) Chronically on 3 L of oxygen Smoker Thrombocytopenia Bilateral pulmonary embolism Hepatitis B Pulmonary embolism Nicotine dependence, cigarettes, with unspecified nicotine-induced disorders Chronic hepatitis B Chronic abdominal pain Chronic hip pain Leg cramps Stomach cancer Pelvic inflammatory disease Diabetes mellitus Hypertension Encephalopathy Cirrhosis Gastroesophageal reflux GI bleeding Surgical History H/O right hemicolectomy History of right hemicolectomy H/O tubal ligation History of laparotomy History of hysterectomy Family History Mother Diabetes Father CAD (coronary artery disease) Other Cancer Social History Smoking and tobacco/nicotine status: former use of tobacco/nicotine (quit 2022) Quit status (tobacco/nicotine): has quit using Year quit tobacco: 2020 Former quit date comment: 2ppd x 26 year Hx Alcohol intake: never Substance/Drug Use: never Data Anesthesia Cardiac Studies: Echocardiogram 02/29/24 Transesophageal Echocardiogram 10/23/23 Anesthesia Procedures Nerve Block Nerve Block 1: Time Out Performed: Yes Consent: requested by attending/covering physician, from patient, from other, risks and benefits reviewed and patient agrees to proceed Nerve block location: popliteal (R) Anesthesia monitors applied: pulse oximetry, EKG, BP cuff and oxygen Nerve block position: supine Anesthetic Used: ropivicaine 0.5% (30 ml) and with decadron (4 mg) Ultrasound used to: recognize landmarks Interscalene/Femoral BLK: 4 stimuplex 21 g needle used for position and inplane approach, visualize local anesthetic spread and no vascular puncture identified Injection: neg aspiration of heme Patient Tolerated Procedure: well Complications: none
[2024-10-23] MEDS: midazolam 1 mg/mL INJ 2 mL 2 MG IVP (08:00)
--- NOTE | 2024-10-23 08:19 | W.PM.OPSUD ---
Surgery/Procedure H&P Update DATE OF PROCEDURE: October 23, 2024 DATE H&P PERFORMED: 10/21/24 H&P UPDATE INFORMATION: I have reviewed H&P completed within last 30 days, I have examined patient prior to procedure, No changes to prior documentation, H&P is in [facility] EMR on date indicated and Risks and benefits of the procedure reviewed PREOP DIAGNOSIS: Right ankle dislocation PLANNED PROCEDURE: Operation Date: 10/23/24 08:10 Proposed Procedures p Open Treatment of Ankle Dislocation(Right) - Meliton Ellison DPM
[2024-10-23] MEDS: ceFAZolin 3,000 MG in sodium chloride 0.9% (plus) 100 ML 200 MG IV (08:37)
--- NOTE | 2024-10-23 09:16 | P.BOP_ITS ---
Date of procedure: 10/23/2024 Surgeon name: Amber SchulzPJatin Aircraft Captain(s) name(s): Hector Procedure(s) performed: Close reduction percutaneous pinning right ankle Description of findings: Displaced trimalleolar ankle fracture Estimated blood loss: 5 cc Tourniquet time: No tourniquet used Specimen(s) removed: None Post-operative diagnosis: Right trimalleolar ankle fracture dislocation
[2024-10-23] MEDS: HYDROcodone-acetaminophen 5-325 mg Tablet 1 TAB PO (10:27)
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
--- NOTE | 2024-10-23 12:20 | ANE.PACU2 ---
Inpatient post-anesthesia follow up: Airway intact: Yes Vital signs: Temperature 97.5 F Pulse Rate 75 Respiratory Rate 18 Blood Pressure 127/83 Pulse Oximetry 93 Oxygen Delivery Me thod Room Air Oxygen Flow Rate 8 Fraction of Inspir ed Oxygen Hydration adequate: Yes Nausea and vomiting: No Pain level: 1 Mental status: Baseline
== END | disposition home or self-care (01) ==
PROVIDERS: PCP Family Medicine; Visit Provider Podiatrist Foot & Ankle Surgery
PROC: (CPT 27846; principal; 2024-10-23 08:00)
DX: S82.851A Displaced trimalleolar fracture of right lower leg, initial encounter for closed fracture (principal); X58.XXXA Exposure to other specified factors, initial encounter; K74.60 Unspecified cirrhosis of liver; R56.9 Unspecified convulsions; E03.9 Hypothyroidism, unspecified; J44.9 Chronic obstructive pulmonary disease, unspecified; Z99.81 Dependence on supplemental oxygen; Z87.891 Personal history of nicotine dependence; E11.9 Type 2 diabetes mellitus without complications; K21.9 Gastro-esophageal reflux disease without esophagitis; I10 Essential (primary) hypertension; Z85.028 Personal history of other malignant neoplasm of stomach; I26.99 Other pulmonary embolism without acute cor pulmonale
CPT/HCPCS: 27846; 36416; 73610; 76000; 82962; C1713; J0690; J1100; J2250; J2704; J2795; J3010; J7030; J9999

== ENCOUNTER 2024-10-27 05:11 | Emergency (ER) | payer MEDICAID, SELFPAY ==
[2024-10-27] VITALS (8 sets, daily range): BP systolic 116–165; BP diastolic 60–110; PULSE 85–105; RESP 18; TEMP 36.9; O2SAT 91–96; BMI 33.9
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
[2024-10-27] MEDS: ondansetron hcl ODT 4 mg Tab PO (05:38)
[2024-10-27] MEDS: HYDROmorphone 0.5 MG/0.5 ML INJ 1 MG IM ×3 (05:47→14:21)
[2024-10-27] MEDS: mupirocin oint 22 gm 1 APPLIC TOPICAL (06:53)
[2024-10-27] MEDS: HYDROmorphone 0.5 MG/0.5 ML INJ 1 MG IVP (07:32)
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
[2024-10-27] MEDS: lipase-protease-amylase Capsule 1 EACH PO (18:01)
[2024-10-27] MEDS: HYDROmorphone tab 2 MG TABLET 4 MG PO (18:01)
[2024-10-27] MEDS: NIFEdipine ER (24 hr) 30 mg Tablet PO (18:03)
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
--- NOTE | 2024-10-27 18:49 | PC.NURSE ---
Spoke w/Dr. Del Rosario and he verbally changed the hydromorphone PO order from Q 8hrs to Q 6 hrs. Pt received dose at 1800, next dose is at midnight.
[2024-10-27] MEDS: morphine ER (12 HR) 100 mg Tablet PO (21:11)
[2024-10-28] VITALS (15 sets, daily range): BP systolic 95–152; BP diastolic 55–87; PULSE 71–114; RESP 16–22; O2SAT 88–97
[2024-10-28] MEDS: HYDROmorphone tab 2 MG TABLET 4 MG PO ×2 (01:15→13:00)
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
--- NOTE | 2024-10-28 09:11 | PC.SOCIAL ---
Gizzard Peeler: [facility] Access Code: [email or web address] has been signed by Dr. Del Rosario. Copy of pages 1-7 placed in chart. Level 2 has been submitted for processing.
[2024-10-28] MEDS: lipase-protease-amylase Capsule 1 EACH PO ×3 (10:19→18:28)
[2024-10-28] MEDS: morphine ER (12 HR) 100 mg Tablet PO ×3 (10:20→21:14)
--- NOTE | 2024-10-28 10:36 | PC.NURSE ---
this RN called and spoke with Dr. Cotton in regards to pts morning medications. pts bp was 107/63, and had isosorbide, metoprolol, nifedipine, and spironolactone ordered for her home meds. Hospitalist gave verbal order to hold bp meds and monitor bp.
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
--- NOTE | 2024-10-28 14:50 | PC.SOCIAL ---
Sr. Manager Marketing CM spoke to at [facility] and she reports that once level 2 has been processed they can accept.
[2024-10-29] VITALS (7 sets, daily range): BP systolic 122–171; BP diastolic 81–102; PULSE 94–102; RESP 12–18; TEMP 36.9; O2SAT 95–99
[2024-10-29] MEDS: HYDROmorphone tab 2 MG TABLET 4 MG PO ×2 (02:22→11:04)
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
--- OUTSIDE RECORDS SUMMARY | 2024-10-29 08:04 | XMS_ITS | Encounter Summary ---
Author Organization [facility] Address 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 Iron asked we contact the office for follow up. Discussed Dr. Mckinley understands she will be discharged from hospice. Voiced understanding. Martina CASANOVA * Telephone Encounter - Francisco Mckinley DO - 10/17/2024 6:07 PM CDT No early fills. Understand that she is discharged. * Telephone Encounter - Martina Fletcher LPN - 10/17/2024 4:10 PM CDT 10/17/2024 4:10 PM Returned call and spoke with Iron. Discussed reports missing medications. Tried to deny visit butwas able to talk her into letting him in to do vitals. . Morphine was correct. Dilaudid is gone last filled 10/11 56 no tablets left 32 tabs missing. Patient very worked up. Will be discharged from [facility]. As she broke their pain contract. This 2-3 times now that her counts have been off and they are over this. Please let us know how Dr. Mckinley wants to proceed. Martina CASANOVA * Telephone Encounter - Nimesh Almonte - 10/17/2024 3:54 PM CDT Copied from [facility] #[id number]. Topic: Gvhedapg-Rf-Vfiivmvc Call >> Oct 17, 2024 3:53 PM Nimesh Diehl wrote: Caller is requesting to speak with Clinical Care Team. Caller Name: Iron w/ [facility] (Other) Callback Number: [phone] Is the caller a Physician, Nurse Practitioner or Physician Art Psychotherapist? No Call Notes: Iron was calling to speak to the care team regarding patient's medication. Is this addressing an immediate patient care need? No documented in this encounter Plan of Treatment Upcoming Encounters Date Type Department Care Team (Late st Contact Info) Description 01/26/2025 8:40 AM WOOD TOOL MAKER Office Visit [facility] Gastroenterology- [place] [address] [facility] [address] [place] [address] Robert Estrada MD 5 [facility] [address] [place] [address] documented as of this encounter Visit Diagnoses Not on filedocumented in this encounter Care Teams Necktie Stitcher Relationship Specialty Start Date End Date Francisco Mckinley DO [address] [place] [phone] PCP - General 06/07/20 documented as of this encounter
--- OUTSIDE RECORDS SUMMARY | 2024-10-29 08:04 | XMS_ITS | Encounter Summary ---
Author Organization [facility] Address [address] [place] [address] Care Team Providers Care Foam Rubber Curer Name Role Phone Francisco Mckinley DO Primary Care Provider [phone] Reason for Visit * Reason Comments Information Encounter Details Date Type Department Care Team (Late st Contact Info) Description 07/01/2024 Telephone [facility] Medicine [address] [phone] Francisco Mckinley DO [address] [place] [phone] Information Social History Tobacco Use Types Packs/Day Years Used Date Smoking Tobacco: Every Day Cigarettes Passive Smoke Exposure: Never Smokeless Tobacco: Never Comments:Quit smokin-5ci garlettes daily Alcohol Use Standard Drinks/Week Comments Never 0 (1 standard drink = 0.6 oz pur e alcohol) Comments No Sex and Gender Information Value Date Recorded Sex Assigned at Not on file 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 Topic: Patient or Caregiver Communication Request >> Jul 01, 2024 11:47 AM Eva Gloria wrote: Patient or Caregiver calling to update Care team on status after a recent visit Caller: Maribell Foreman Patient/Caregiver Callback Number: [phone] Call Notes: patient is not feeling any better and has a few more spots that have popped up on leg documented in this encounter Plan of Treatment Upcoming Encounters Date Type Department Care Team (Late st Contact Info) Description 01/26/2025 8:40 AM QUARTER FOLDER Office Visit [facility] Gastroenterology- [place] [address] [address] Robert Estrada MD [address] [address] documented as of this encounter Visit Diagnoses Not on filedocumented in this encounter Care Teams Foam Rubber Curer Relationship Specialty Start Date End Date Francisco Mckinley DO [address], [place] [address] PCP - General 06/07/20 documented as of this encounter
--- OUTSIDE RECORDS SUMMARY | 2024-10-29 08:04 | XMS_ITS | Encounter Summary ---
Author Organization [facility] Address 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 She said that [place] had mentioned something about get her medicctions cheaper if the PCP did something. She said she couldn't remember what they called it or how if works. Said her insurance has not been covering any of her pain medications. Maribell is having surgery at [facility] tomorrow but will check with [place] next time they come and out and see what theprogram was and what is needed. * Telephone Encounter - Nora Dior - 10/22/2024 10:21 AM CDT Copied from [facility] #[id number]. Topic: CPA Information Request >> Oct 22, 2024 10:20 AM Nora Gloria wrote: Caller is returning phone call from clinic. Caller Name: Patient Patient/Caregiver Callback Number: [phone] Patient Has Additional Questions Are the credentials of the caregiver who talked to the patient wireless consultant? No Call Notes: Patient/Caller requires a call back to discuss paperwork needed for medication assistance documented in this encounter Plan of Treatment Upcoming Encounters Date Type Department Care Team (Late st Contact Info) Description 01/26/2025 8:40 AM ROLL FORGER Office Visit [facility] Gastroenterology- [place] [address] [address] Robert Estrada MD [address] [address] documented as of this encounter Visit Diagnoses Not on filedocumented in this encounter Care Teams Ladies' Locker Room Attendant Relationship Specialty Start Date End Date Francisco Mckinley DO [address] [place] [phone] PCP - General 06/07/20 documented as of this encounter
--- OUTSIDE RECORDS SUMMARY | 2024-10-29 08:04 | XMS_ITS | Clinical Summary ---
Author Organization [address] Address [address] [place] [address] Care Team Providers Care Licensing Coordinator Name Role Phone Francisco Mckinley Primary Care Provider Allergies Active Allergy Reactions Criticality Noted Date Comments Aspirin Swelling High 09/15/2013 Codeine Hives High 07/18/2013 Ketorolac Hives High 04/09/2024 Sulfa (Sulfonamide Antibiotics) Hives High 09/15/2013 Trazodone Hcl Other (See Comments) 06/14/2021 Leg spasms Medications Oral Medication Containers (Sharps Container) For use with disposable syringe and needle. 1 Each 3 021 Active naloxone (Narcan) 4 mg/spray [place], Non-Aerosol EMERGENCY USE ONLY: ADMINISTER ONE SPRAY (4 MG) IN ONE NOSTRIL ONE TIME. MAY REPEAT IN ALTERNATING NOSTRILS EVERY TWO TO THREE MIN UNTIL RESPONSIVE OR EMS ARRIVES. STRENGTH: 4 MG/ACTUATION 2 Each 3 023 Active Additional Information Patient not taking.Reported on 07/07/2024 ipratropium-albu teroL (DUONEB) 0.5 mg-3 mg(2.5 mg base)/3 mL Solution for Nebulization Take 3 mL by inhalation every 4 hours as needed for Shortness of Breath, Respiration or Wheezing. 024 Active albuterol sulfate HFA 90 mcg/actuation aerosol inhalerIndicatio ns:Shortness of breath Take 2 Puffs by inhalation every 6 hours as needed for Shortness of Breath. 8.5 Gram Active rifAXIMin (XIFAXAN) 550 mg TabletIndication s:Portal hypertension (CMS/HCC),Hepati c cirrhosis, unspecified hepatic cirrhosis type, unspecified whether ascites present (CMS/HCC),Hepati c encephalopathy (CMS/HCC) Take 1 Tablet (550 mg) by mouth 2 times daily. 60 Tablet Active NIFEdipine (PROCARDIA XL) 30 mg Extended Release 24 hour tabletIndication s:Portal hypertension (CMS/HCC) Take 1 Tablet (30 mg) by mouth daily. 100 Tablet 024 Active gabapentin (NEURONTIN) 300 mg capsuleIndicatio ns:Neuropathy Take 2 Capsules (600 mg) by mouth 2 times daily. 360 Capsule Active furosemide (LASIX) 40 mg tabletIndication s:Lymphedema of both lower extremities Take 2 Tablets (80 mg) by mouth daily in the morning AND 1 Tablet (40 mg) daily after lunch. 90 Tablet Active lactulose (ENULOSE) 10 gram/15 mL oral solutionIndicati ons:Alcoholic cirrhosis of liver without ascites (CMS/HCC) TAKE 90ML BY MOUTH THREE TIMES DAILY 8514 mL Active lipase-protease- amylase DR (Creon) 3,000-9,500-15,0 00 unit capsuleIndicatio ns:Cirrhosis of liver without ascites, unspecified hepatic cirrhosis type (CMS/HCC) Take 1 Capsule by mouth 3 times daily with meals. 200 Capsule Active pantoprazole (PROTONIX) 40 mg Tablet, Delayed Release (E.C.)Indication s:Gastroesophage al reflux disease without esophagitis Take 1 Tablet (40 mg) by mouth daily. 90 Tablet 024 Active tiZANidine (ZANAFLEX) 4 mg TabletIndication s:Muscle spasm Take 1 Tablet (4 mg) by mouth every 6 hours as needed for Spasm. 120 Tablet Active levothyroxine 50 mcg tabletIndication s:Acquired hypothyroidism Take 1 Tablet (50 mcg) by mouth daily in the morning. 100 Tablet 024 Active lancets (OneTouch Delica Plus Lancet) 33 gauge Check sugars 1-3 times a day. 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 60 Tablet 3 024 Active oxygen home deliveryIndicati ons:Nocturnal hypoxemia due to emphysema (CMS/HCC) Home Oxygen Concentrator yes at 0 L/M Rest, 0 L/M Activity, 2 L/M Sleep, Delivery Device: Nasal Cannula Portability: no, May provide device best for patient needs(E system,home fill, conserving device) Length of Need: 99 months 1 Each 024 Active spironolactone (ALDACTONE) 100 mg tabletIndication s:Portal hypertension (CMS/HCC),Lymphe gabby of both lower extremities Take 1 Tablet (100 mg) by mouth daily. 90 Tablet 3 024 Active portable oxygenIndication s:Panlobular emphysema (CMS/HCC) Face to Face completed within 30 days: yes Length of Need: 99 months By: Nasal Cannula Continuously at 2 L/min. 1 Each 024 Active doxepin (SINEquan) 10 mg capsuleIndicatio ns:Insomnia, unspecified type take 1 capsule BY MOUTH every night NEEDED FOR insomnia 30 Capsule 2 025 Active umeclidinium-bea anteroL (Anoro Ellipta) 62.5-25 mcg/actuation Disk with DeviceIndication s:Panlobular emphysema (CMS/HCC) INHALE 1 PUFF BY MOUTH EVERY DAY 60 Each 2 025 Active ibuprofen (MOTRIN) 600 mg tablet Take 1 Tablet (600 mg) by mouth every 8 hours as needed for Other (See Comment) or Pain, Moderate (fever). 025 Active insulin degludec (TRESIBA) 100 unit/mL pen syringe Inject 10 Units by subcutaneous injection daily with breakfast. 025 Active insulin degludec (TRESIBA) 100 unit/mL pen syringe Inject 10 Units by subcutaneous injection daily at bedtime. 025 Active ergocalciferol (VITAMIN D2) 50,000 unit capsuleIndicatio ns:Vitamin D deficiency Take 1 Capsule (50,000 Units) by mouth every 7 days. 12 Capsule 1 025 Active insulin glargine (Lantus U-100 Insulin) 100 unit/mL vialIndications: Type 2 diabetes mellitus with diabetic polyneuropathy, with long-term current use of insulin (CMS/HCC) inject 10 units SUBCUTANEOUSLY at breakfast and 40 units AT BEDTIME 30 mL 3 025 Active OneTouch Verio Flex meterIndications :Type 2 diabetes mellitus with diabetic polyneuropathy, with long-term current use of insulin (CMS/HCC) Check blood glucose if symptoms of hyperglycemia or hypoglycemia. DX E11.9 1 Each 025 Active blood sugar diagnostic (OneTouch Verio test strips) StripIndications :Type 2 diabetes mellitus with diabetic polyneuropathy, with long-term current use of insulin (CMS/HCC) 1 Strip 3 times daily before meals. 100 Strip 2 025 Active BD Insulin Syringe Ultra-Fine 1 mL 31 gauge x 5/16 SyringeIndicatio ns:Type 2 diabetes mellitus with diabetic polyneuropathy, with long-term current use of insulin (CMS/[facility]) FOR USE with insulin injections THREE TIMES DAILY (lantus and humalog) 200 Each 3 025 Active Blood-Glucose Meter,Continuous (Dexcom G7 Plant Security Guard)Indicat ions:Type 2 diabetes mellitus with diabetic polyneuropathy, with long-term current use of insulin (CMS/HCC) Use to monitor blood glucose continuously throughout the day. 1 Each 025 Active Blood-Glucose Sensor (Dexcom G7 Sensor) DeviceIndication s:Type 2 diabetes mellitus with diabetic polyneuropathy, with long-term current use of insulin (CMS/HCC) USE TO MONITOR BLOOD GLUCOSE CONTINUOUSLY THROUGH THE DAY. CHANGE SENSOR EVERY 10 DAYS. 9 Each 3 025 Active nebulizerIndicat ions:Panlobular emphysema (CMS/HCC) Length of need 99 months Nebulizer with compressor, Kit: Disposable Nebulizer Kit, 2 per month, filters , areosol mask: No. Name of Medication albuterol. 1 Each 025 Active lamoTRIgine (LaMICtal) 100 mg tabletIndication s:Seizure disorder (CMS/HCC) Take 1 Tablet (100 mg) by mouth daily. 90 Tablet 3 025 Active magnesium HYDROXIDE (Milk Of Magnesia Concentrated) 2,400 mg/10 mL Suspension Take by mouth. 025 Active bisacodyL (Dulcolax, bisacodyl,) 10 mg Suppository Insert by rectum. 025 Active Nebulizer Accessories KitIndications:P anlobular emphysema (CMS/HCC) Disposable mask and tubing for nebulizer. New kit every 3 months. 1 Kit 3 Active potassium CHLORIDE (KAYCIEL) 20 mEq/15 mL solutionIndicati ons:Cirrhosis of liver without ascites, unspecified hepatic cirrhosis type (CMS/HCC),Lymphe gabby of both lower extremities Take 30 mL (40 mEq) by mouth daily. 900 mL 5 025 Active polyethylene glycol 3350 (Miralax) 17 gram/dose Powder Take by mouth. 025 Active scopolamine (TRANSDERM-SCOP) 1 mg/72 hr patchIndications :Nausea and vomiting, unspecified vomiting type APPLY ONE PATCH TO SKIN DIRECTED EVERY 3 DAYS 10 Patch 5 025 Active tenofovir disoproxil fumarate (VIREAD) 300 mg TabletIndication s:Cirrhosis of liver without ascites, unspecified hepatic cirrhosis type (CMS/HCC) Take 1 Tablet (300 mg) by mouth daily. 30 Tablet 5 025 Active amitriptyline (ELAVIL) 75 mg tabletIndication s:Insomnia, unspecified type Take 1 Tablet (75 mg) by mouth daily at bedtime. 30 Tablet 2 025 Active furosemide (LASIX) 80 mg tabletIndication s:Lymphedema of both lower extremities Take 1 Tablet (80 mg) by mouth daily. 30 Tablet 025 Active HYDROmorphone (DILAUDID) 4 mg tabletIndication s:Cellulitis of right lower extremity,Cellul itis of left lower extremity,Sepsis with acute liver failure without hepatic coma or septic shock, due to unspecified organism (CMS/HCC),Histor y of hepatitis C,Uncomplicated opioid dependence (CMS/HCC),Chroni c cholecystitis without calculus,RUQ abdominal pain,Closed fracture of left ankle, initial encounter Take 1 Tablet (4 mg) by mouth every 8 hours as needed for Pain, Severe or Pain, Break-Through. MUST LAST 7 DAYS Max Daily Amount: 12 mg 21 Tablet 025 Active morphine (MS CONTIN) 100 mg Controlled Release tabletIndication s:Uncomplicated opioid dependence (CMS/HCC),Hospic e care patient,Other chronic pancreatitis (CMS/HCC) Take 1 Tablet (100 mg) by mouth every 8 hours. Start date 09/22/2024 Max Daily Amount: 300 mg 90 Tablet 025 Active morphine (MS CONTIN) 100 mg Controlled Release tabletIndication s:Uncomplicated opioid dependence (CMS/HCC),Hospic e care patient,Other chronic pancreatitis (CMS/HCC) Take 1 Tablet (100 mg) by mouth every 8 hours. Start date 09/22/2024 Max Daily Amount: 300 mg 90 Tablet 025 2024 Discontinued(R eorder) HYDROmorphone (DILAUDID) 4 mg tabletIndication s:Cellulitis of right lower extremity,Cellul itis of left lower extremity,Sepsis with acute liver failure without hepatic coma or septic shock, due to unspecified organism (CMS/HCC),Histor y of hepatitis C,Uncomplicated opioid dependence (CMS/HCC),Chroni c cholecystitis without calculus,RUQ abdominal pain,Closed fracture of left ankle, initial encounter Take 1 Tablet (4 mg) by mouth every 6 hours as needed for Pain, Break-Through. Max Daily Amount: 16 mg 28 Tablet 025 2024 Discontinued HYDROmorphone (DILAUDID) 4 mg tabletIndication s:Cellulitis of right lower extremity,Cellul itis of left lower extremity,Sepsis with acute liver failure without hepatic coma or septic shock, due to unspecified organism (CMS/HCC),Histor y of hepatitis C,Uncomplicated opioid dependence (CMS/HCC),Chroni c cholecystitis without calculus,RUQ abdominal pain,Closed fracture of left ankle, initial encounter Take 1 Tablet (4 mg) by mouth every 6 hours as needed for Pain. Max Daily Amount: 16 mg 28 Tablet 025 2024 Discontinued(R eorder) HYDROmorphone (DILAUDID) 4 mg tabletIndication s:Cellulitis of right lower extremity,Cellul itis of left lower extremity,Sepsis with acute liver failure without hepatic coma or septic shock, due to unspecified organism (CMS/HCC),Histor y of hepatitis C,Uncomplicated opioid dependence (CMS/HCC),Chroni c cholecystitis without calculus,RUQ abdominal pain,Closed fracture of left ankle, initial encounter Take 1 Tablet (4 mg) by mouth every 6 hours as needed for Pain. MUST LAST 14 DAYS Max Daily Amount: 16 mg 56 Tablet 025 2024 Discontinued(R eorder) morphine (MS CONTIN) 100 mg Controlled Release tabletIndication s:Uncomplicated opioid dependence (CMS/HCC),Hospic e care patient,Other chronic pancreatitis (CMS/HCC) Take 1 Tablet (100 mg) by mouth every 8 hours. Start date 09/22/2024 Max Daily Amount: 300 mg 90 Tablet 025 2024 Discontinued(R eorder) Active Problems Problem Noted Date Diagnosed Date [...] Encounters Date Type Department Care Team Description 10/28/2024 External Device Data [facility] ABSTRACTION Provider, Abstract 10/28/[address] [address] Francisco Mckinley, Medication Refill 10/27/[address] [address] Francisco Mckinley, Information 10/23/[address] [address] Francisco Mckinley, Question 10/23/[address] [address] Francisco Mckinley, 10/22/[address] [address] Francisco Mckinley, Cellulitis of right lower extremity; Cellulitis of left lower extremity; Sepsis with acute liver failure without hepatic coma or septic shock, due to unspecified organism (CMS/HCC); History of hepatitis C; Uncomplicated opioid dependence; Chronic cholecystitis without calculus; RUQ abdominal pain; Closed fracture of left ankle, initial encounter 10/22/[address] [address] Francisco Mckinley DO Patient Communication 10/21/[address] [address] [phone] Francisco Mckinley DO Patient Communication 10/21/[address] [address] Francisco Mckinley DO Needs Orders Written 10/21/[address] [address] Francisco Mckinley, Cellulitis of right lower extremity; Cellulitis of left lower extremity; Sepsis with acute liver failure without hepatic coma or septic shock, due to unspecified organism (CMS/HCC); History of hepatitis C; Uncomplicated opioid dependence; Chronic cholecystitis without calculus; RUQ abdominal pain; Closed fracture of left ankle, initial encounter; Hospice care patient; Other chronic pancreatitis 10/17/[address] [address] Francisco Mckinley DO Provider Call 10/10/[address] [address] Francisco Mckinley, 10/10/[address] [address] [phone] Francisco Mckinley DO Patient Communication 10/10/[address] [address] Francisco Mckinley, 10/10/2024 Orders Only [place] [address] [facility] [place] [address] Provider, Abstract 10/09/[address] [address] Francisco Mckinley DO Needs Orders Written 10/07/[address] [address] Francisco Mckinley DO Uncomplicated opioid dependence; Hospice care patient; Other chronic pancreatitis 10/06/[address] [address] Francisco Mkcinley DO Cellulitis of right lower extremity; Cellulitis of left lower extremity; Sepsis with acute liver failure without hepatic coma or septic shock, due to unspecified organism (CMS/HCC); History of hepatitis C; Uncomplicated opioid dependence; Chronic cholecystitis without calculus; RUQ abdominal pain; Closed fracture of left ankle, initial encounter 09/30/[address] [address] Francisco Mckinley DO Cellulitis of right lower extremity; Cellulitis of left lower extremity; Sepsis with acute liver failure without hepatic coma or septic shock, due to unspecified organism (CMS/HCC); History of hepatitis C; Uncomplicated opioid dependence; Chronic cholecystitis without calculus; RUQ abdominal pain; Closed fracture of left ankle, initial encounter 09/29/[address] [address] Francisco Mckinley DO Patient Communication 09/25/[address] [address] Francisco Mckinley DO Provider Call 09/25/[address] [address] Francisco Mckinley DO Closed fracture of left [...] Data [facility] ABSTRACTION Provider, Abstract 09/23/[address] [address] Francisco Mckinley DO Uncomplicated opioid dependence; Hospice care patient; Other chronic pancreatitis 09/22/[address] [address] Francisco Mckinley DO Clinical Consult Before Scheduling 09/22/[address] [address] Francisco Mckinley DO Uncomplicated opioid dependence; Hospice care patient; Other chronic pancreatitis 09/22/[address] [address] Francisco Mckinley DO Uncomplicated opioid dependence; Hospice care patient; Other chronic pancreatitis 09/17/[address] [address] Francisco Mckinley DO Medication Assistance; Patient Communication 09/17/[address] [phone] Francisco Mckinley DO Information 09/13/[address] [address] Francisco Mckinley DO Uncomplicated opioid dependence; Hospice care patient; Other chronic pancreatitis [address] [address] Francisco Mckinley DO Provider Call 09/02/[address] [address] Francisco Mckinley DO Medication Refill; Results; Pharmacy Clarification 08/28/[address] [address] Francisco Mckinley DO Information; Weight Check; Information 08/28/[address] [address] Francisco Mckinley DO Cellulitis of right lower extremity; Cellulitis of left lower extremity; Sepsis with acute liver failure without hepatic coma or septic shock, due to unspecified organism (CMS/HCC); History of hepatitis C; Uncomplicated opioid dependence; Chronic cholecystitis without calculus; RUQ abdominal pain 08/26/[address] [address] Francisco Mckinley DO Weight Gain 08/25/[address] [address] Francisco Mckinley DO Cellulitis of right lower extremity; Cellulitis of left lower extremity; Sepsis with acute liver failure without hepatic coma or septic shock, due to unspecified organism (CMS/HCC); History of hepatitis C; Uncomplicated opioid dependence; Chronic cholecystitis without calculus; RUQ abdominal pain 08/19/[address] [address] Francisco Mckinley DO Uncomplicated opioid dependence; Hospice care patient; Other chronic pancreatitis 08/19/[address] [address] Francisco Mckinley DO Cellulitis of right lower extremity; Cellulitis of left lower extremity; Sepsis with acute liver failure without hepatic coma or septic shock, due to unspecified organism (CMS/HCC); History of hepatitis C; Uncomplicated opioid dependence; Chronic cholecystitis without calculus; RUQ abdominal pain; Insomnia, unspecified type 08/12/[address] [address] Francisco Mckinley DO Cellulitis of right lower extremity; Cellulitis of left lower extremity; Sepsis with acute liver failure without hepatic coma or septic shock, due to unspecified organism (CMS/HCC); History of hepatitis C; Uncomplicated opioid dependence; Chronic cholecystitis without calculus; RUQ abdominal pain 08/06/[address] [address] Francisco Mckinley DO Uncomplicated opioid dependence; Hospice care patient; Other chronic pancreatitis 08/04/[address] [address] Francisco Mckinley DO 07/29/2024 External Device Data [facility] ABSTRACTION Provider, Abstract 07/29/2024 External Device Data [facility] ABSTRACTION Provider, Abstract 07/29/2024 [facility] [address] [place] [address] Meliton Mckinley MD Cirrhosis of liver without ascites, unspecified hepatic cirrhosis type (CMS/HCC) 07/29/[address] [address] Francisco Mckinley DO Nausea and vomiting, unspecified vomiting type from Last 3 Months Immunizations Immunization Administration Dates Next Due (ADACEL/BOOSTRIX)(10 YR UP) TDAP VACCINE, 0.5ML, IM 09/26/2021 (HAVRIX/VAQTA)(19 YRS UP) HE PATITIS A VACCINE ADULT DOSAGE 1 ML IMM 04/10/2006 (PREVNAR 20)(6 WKS UP) PNEUM OCOCCAL CONJUGATE VACCINE 20-VALENT (PCV20), POLYSACCHARIDE [id number] CONJUGATE, ADJUVANT 0.5 ML (PF) IM 12/19/2022 INFLUENZA VACCINE QUADRIVALE NT 6 MOS UP PF IM 12/19/2022,01/01/2019,06/07/2017 Family History Medical History Relation Name Comments Unknown Brother 1 Unknown Brother 2 Unknown Brother 3 Unknown Brother 4 Heart Disease Brother 5 of [place]. Other Brother 6 of suicide . Unknown Brother 7 Unknown Brother 8 Heart Disease Father Chavo Rios of mas sive [place]. Respiratory Disease Father Chavo Rios Has lung [...] on file Legal Sex Female 2:09 PM CHIEF OPERATOR HYDROFORMER Gender Identity Not on file Sexual Orientation Not on file Last Filed Vital Signs Vital Sign Reading Time Taken Comments Blood Pressure 123/79 05/21/2024 1:00 PM CHIEF OPERATOR HYDROFORMER Pulse 83 05/21/2024 1:00 PM CHIEF OPERATOR HYDROFORMER Temperature 36.6 C (97.9 F) 05/21/2024 1:00 PM CHIEF OPERATOR HYDROFORMER Respiratory Rate 18 05/21/2024 1:00 PM CHIEF OPERATOR HYDROFORMER Oxygen Saturation 96% 05/21/2024 1:00 PM CHIEF OPERATOR HYDROFORMER Inhaled Oxygen Concentration - - Weight 109.3 kg (241 lb) 07/07/2024 2:02 PM CDT Height 182.9 cm (6') 07/07/2024 2:02 PM CDT Body Mass Index 32.69 07/07/2024 2:02 PM CDT Plan of Treatment Upcoming Encounters Date Type Department Care Team (Late st Contact Info) Description 01/26/2025 8:40 AM CHIEF OPERATOR HYDROFORMER Office Visit [facility] [place] [address] [place] [address] Robert Estrada MD [address] [place] [address] Health Maintenance Due Date Last [...] 12/19/2022, 02/2022 Preventative Visit-Managed Medicaid 12/21/2023 12/19/2022 ZOSTER VACCINE (1 of 2) 2024 INFLUENZA VACCINE (#1) 2024 , 12/19/2022, 05/01/2022, Additional history exists DIABETES HBA1C Q 6 MONTHS 03/26/20252024, 10/23/2023, 04/26/2023, Additional history exists DIABETES MICROALBUMIN ANNUAL SCREEN 04/03/2025 04/03/2024, 09/27/2023, 04/26/2023, Additional history exists DIABETES: A1C (Auto Order) 09/23/202509/23, 10/23/2023, 04/26/2023, Additional history exists LDL CHOLESTEROL ANNUAL 09/23/2025 , 04/26/2023, 10/25/2020, Additional history exists COLORECTAL SCREENING 10/04/2027 10/03/2022, 10/03/2022, 01/08/2019, Additional history exists Colorectal Cancer Screening 10/04/2027 DTAP/TDAP/TD VACCINES (2 - T d or Tdap) 09/27/2031 09/26/2021 Medical Devices Implanted Type Area Shag Truck Driver Device Identifier Shelf Expiration Date Model / Serial / Lot MadeiraCloudtronic Ra Lead 5076-52-05/10/19 23 Implanted:05/10 (Quantity not on file) Lead [employer] 5076-52 / [id number] / Medtronic Rv Lead 5076-58-05/10/19 23 Implanted:05/10 (Quantity not on file) Lead [employer] 5076-58 / [id number] / Medtronic Pacemaker [id number]/22/202 3 Implanted:05/10 (Quantity not on file) Pacemaker [employer] [id number] / [id number] / Description:Dr. Wyman amelia [phone] Procedures Procedure Name Priority Date/Time Associated Diagnosis Comments COMPREHENSIVE METABOLIC PANEL Routine 09/24/2024 10:10 AM CDT LIPID PANEL Routine 09/23/2024 HEMOGLOBIN A1C Routine 09/23/2024 PROTIME-INR Routine 09/23/2024 POTASSIUM LEVEL Routine 09/01/2024 10:53 AM CDT Fluid retention MICROALBUMIN/CREATININ E RATIO, RANDOM UR Routine 04/03/2024 1:11 PM CHIEF OPERATOR HYDROFORMER Type 2 diabetes mellitus with diabetic polyneuropathy, with long-term current use of insulin ([facility]) COLONOSCOPY REPORT 10/03/2022 3: 34 PM CDT HM DIABETES EYE EXAM Routine 07/30/2022 10:18 AM CDT MAMMO SCREEN BILAT W OR WO CAD Routine 04/29/2019 12:45 PM CHIEF OPERATOR HYDROFORMER Visit for screening mammogram from Last 3 Months or Most Recently Relevant to Health Maintenance Results * COMPREHENSIVE METABOLIC PANEL (09/24/2024 10:10 AM CDT) Blood us Abstract Provider CHEMISTRY ORDERABLES Final Res ult * PROTIME-INR (09/23/2024) [facility] ABSTRACTED PROTIME 14.7 ABSTRACTED INR 1.07 Blood 09/23/2024 Abstract Provider HEMATOLOGY ORDERABLES Final Re sult * HEMOGLOBIN A1C (09/23/2024) [facility] ABSTRACTED HGB A1C 5.9 % Blood 09/23/2024 Abstract Provider CHEMISTRY ORDERABLES Final Res ult * LIPID PANEL (09/23/2024) [facility] ABSTRACTED CHOLESTEROL 176 ABSTRACTED TRIGLYCERIDE 101 ABSTRACTED HDL 45 ABSTRACTED LDL CALCULATED 111 Blood 09/23/2024 Abstract Provider CHEMISTRY ORDERABLES Final Res ult * POTASSIUM LEVEL (09/01/2024 10:53 AM CDT) [facility] POTASSIUM 3.7 3.5 - 5.3 mmol/L [facility] Comment: Test Performed at: [facility] [address] Mckinley Urbano MD Blood 09/01/2024 10:5 3 AM CDT 09/01/2024 10:54 AM CDT Francisco Mckinley DO CHEMISTRY ORDERABLES Final Re sult [facility] [phone] [address] * MICROALBUMIN/CREATININE RATIO, RANDOM UR (04/03/2024 1:11 PM CHIEF OPERATOR HYDROFORMER) [facility] Creatinine, Urine 222 20 - 275 mg/dL [facility] MICROALBUMIN, URINE 0.7 See Note: mg/dL [facility] Comment: Reference Range: Reference Range Not established MICROALBUMIN/CREAT RATIO, UR 3 <30 mg/g creat [facility] Comment: The ADA defines abnormalities in albumin excretion as follows: Albuminuria Category Result (mg/g creatinine) Normal to Mildly increased <30 Moderately increased 30-299 Severely increased > OR = 300 The ADA recommends that at least two of three specimens collected within a 3-6 month period be abnormal before considering a patient to be within a diagnostic category. Test Performed at: [facility] [address] [place] [address] Mckinley Urbano MD Urine URINE SPECIMEN OBTAINED BY CLEAN CATCH PROCEDURE / Unknown 04/03/2024 1:11 PM CHIEF OPERATOR HYDROFORMER 04/04/2024 2:48 AM CHIEF OPERATOR HYDROFORMER Francisco Mckinley DO URINE ORDERABLES Final Result [facility] [phone] [address] [address] [place] [address] * COLONOSCOPY REPORT (10/03/2022 3:34 PM CDT) Narrative Procedure Note Robert Estrada MD - 10/03/2022 3:34 PM CDT [facility] GI Patient Name: Maribell Foreman Procedure [...] PM Scope Out: 3:32:23 PM [address] [place], [place] Robert Estrada MD GI PROCEDURE ORDERABLES F inal Result * DIABETES EYE EXAM (07/30/2022 10:18 AM CDT) us Abstract Provider HEALTH MAINTENANCE Final Resul t * MAMMO SCREEN BILAT W OR WO CAD (04/29/2019 12:45 PM CHIEF OPERATOR HYDROFORMER) Anatomical Region Laterality Modality Breast Bilateral Other Narrative 04/30/2019 7:17 PM CHIEF OPERATOR HYDROFORMER Bilateral Mammogram Reason for Exam: Screening Comparison: [...] Advance Directives For more information, please contact: [phone] Documents on File Type Date Recorded 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
--- OUTSIDE RECORDS SUMMARY | 2024-10-29 08:04 | XMS_ITS | Encounter Summary ---
Author Organization [facility] Address [address] [place] [address] Care Team Providers Care Account Administrator Name Role Phone Francisco Mckinley DO Primary Care Provider [phone] Reason for Visit * Reason Comments Patient Communication Encounter Details Date Type Department Care Team (Late st Contact Info) Description 10/21/2024 Telephone [facility] Medicine [address] [phone] Francisco Mckinley DO [address] [place] [phone] Patient Communication Social History Tobacco Use [...] on file Legal Sex Female 2:09 PM MEDICAL BILLING INSTRUCTOR Gender Identity Not on file Sexual Orientation Not on file documented as of this encounter Miscellaneous Notes * Telephone Encounter - Steffanie Verde RN - 10/21/2024 4:48 PM CDT 10/21/2024 4:48 PM Returned call and spoke with patient. Discussed that they are going to be putting pins in her foot on , she just wanted you to be aware of what was going on. Steffanie RN * Telephone Encounter - Alona Victoria - 10/21/2024 4:28 PM CDT Copied from [facility] #[id number]. Topic: CPA Information Request >> Oct 21, 2024 4:26 PM Alona Mario wrote: Caller is returning phone call from clinic. Caller Name: Maribell Foreman Patient/Caregiver Callback Number: Telephone Information: Patient Has Additional Questions Are the credentials of the caregiver who talked to the patient automotive parts counter person? Yes Call Notes: Patient/Caller requires a call back to discuss the patient is having surgery on at [facility] in [place] and wanted to make the provider aware. documented in this encounter Plan of Treatment Upcoming Encounters Date Type Department Care Team (Late st Contact Info) Description 01/26/2025 8:40 AM MEDICAL BILLING INSTRUCTOR Office Visit [facility] Gastroenterology- [place] [address] [address] Robert Estrada MD [address] [address] documented as of this encounter Visit Diagnoses Not on filedocumented in this encounter Care Teams Account Administrator Relationship Specialty Start Date End Date Francisco Mckinley DO [address] [place] [address] PCP - General 06/07/20 documented as of this encounter
--- OUTSIDE RECORDS SUMMARY | 2024-10-29 08:04 | XMS_ITS | Encounter Summary ---
Author Organization [facility] Address 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 Due to Holiday and extended weekend, Dr. Mckinley called to ER, the date/time selected is 1st available for HFU * Telephone Encounter - Natalie Zamudio - 09/17/2024 4:56 PM CDT Copied from [facility] #[id number]. Topic: Established Patient Care >> Sep 17, 2024 4:54 PM Natalie Gloria wrote: [facility] the [facility]? Yes, select appropriate option in Discharge Facility SmartList Caller Name: Maribell Foreman Callback Number: Telephone Information: Call Notes: Discharge from [facility] ED on 09/15 Patient is High [...] st Contact Info) Description 01/26/2025 8:40 AM MANAGER PLUMBING Office Visit [facility] Gastroenterology- [place] [address] [address] Robert Estrada MD [address] [address] documented as of this encounter Visit Diagnoses Not on filedocumented in this encounter Care Teams Stars Coordinator Relationship Specialty Start Date End Date Francisco Mckinley DO [address], [place] [address] PCP - General 06/07/20 documented as of this encounter
--- OUTSIDE RECORDS SUMMARY | 2024-10-29 08:04 | XMS_ITS | Encounter Summary ---
Author Organization [facility] Address [address] [place] [address] Care Team Providers Care Data Processing Equipment Repairer Name Role Phone Francisco Mckinley DO Primary Care Provider [phone] Reason for Referral * Hospice (Routine) - Closed Specialty Diagnoses / Procedures Referred By Contluis t Referred To Contact Diagnoses COPD with exacerbation (CMS/HCC) Hepatic cirrhosis, unspecified hepatic cirrhosis type, unspecified whether ascites present (CMS/HCC) Pulmonary emphysema, unspecified emphysema type ([facility]/HCC) Francisco Mckinley DO [address] [place] [address] Phone: tel: fax: [address] [address] Phone: tel: fax: Referral ID Status Reason Start Date Expiration Date Visits Re quested Visits Authorized [id number] Closed 10/21/2024 10/21/2025 1 1 Reason for Visit * Reason Comments Needs Orders Written Encounter Details Date Type Department Care Team ([facility] st Contact Info) Description 10/21/2024 Telephone [facility] [address] [place] [phone] Francisco Mckinley DO [address] [place] [phone] Needs Orders Written Social History Tobacco Use Types Packs/Day Years Used Date Smoking Tobacco: Former Cigarettes Q uit: 03/28/2024 Passive Smoke Exposure: Never Smokeless Tobacco: Never Comments:Quit smokin-5ci garlettes daily Alcohol Use Standard Drinks/Week Comments Never 0 (1 standard drink = 0.6 oz pur e alcohol) Comments No Sex and Gender Information Value Date Recorded Sex Assigned at Not on file Legal Sex Female 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 * Telephone Encounter - Alona Victoria - 10/21/2024 3:11 PM CDT Copied from [facility] #[id number]. Topic: CPA Information Request - Order or Referral Request >> Oct 21, 2024 3:07 PM Alona Mario wrote: Caller Name: Maribell Foreman Patient/Caregiver Callback Number: Telephone Information: Call Notes: The patient would like a new referral to [facility]-they also need notes and diagnosis, order for evalutation, and admittance- all information that was sent to [facility] to be sent to [facility]. Caller is requesting: New Referral Has the patient been seen for this issue? YES Requests Referral to Specialty: Hospice Reason for referral (Symptoms / Diagnosis): stage 4 cirrhosis of the liver Previously discussed with provider? yes Is patient requesting a certain provider or facility? yes Provider / Facility contact information: [facility] [phone] Date of Service: n/a documented in this encounter Plan of Treatment Upcoming Encounters Date Type Department Care Team ([facility] st Contact Info) Description 01/26/2025 8:40 AM PREMIX OPERATOR CONCENTRATE Office Visit [facility] Gastroenterology- [place] 2[address] [facility] [address] [place] [address] Robert Estrada MD 2[address] [facility] [address] [place] [address] Scheduled Referrals Name Type Priority Associated Diagnoses Orde r Schedule AMB REFERRAL TO HOSPICE Outpatient Referral Routine COPD with exacerbation (CMS/HCC) Hepatic cirrhosis, unspecified hepatic cirrhosis type, unspecified whether ascites present (CMS/HCC) Pulmonary emphysema, unspecified emphysema type (CMS/HCC) Ordered: 10/21/2024 documented as of this encounter Visit Diagnoses Diagnosis COPD with exacerbation (CMS/HCC)- Primary Obstructive chronic bronchitis with exacerbation Hepatic cirrhosis, unspecified hepatic cirrhosis type, unspecified whether ascites present (CMS/HCC) Pulmonary emphysema, unspecified emphysema type (CMS/HCC) documented in this encounter Care Teams Data Processing Equipment Repairer Relationship Specialty Start Date End Date Francisco Mckinley DO [address] [place] [address] PCP - General 06/07/20 documented as of this encounter
--- OUTSIDE RECORDS SUMMARY | 2024-10-29 08:04 | XMS_ITS | Encounter Summary ---
Author Organization [facility] Address [address] [place] [address] Care Team Providers Care Die Tester Name Role Phone Francisco Mckinley DO Primary Care Provider [phone] Reason for Visit * Reason Comments Question Encounter Details Date Type Department Care Team (Late st Contact Info) Description 10/23/2024 Telephone [facility] Medicine [address] [address] Francisco Mckinley DO [address] [place] [phone] Question Social History Tobacco Use Types Packs/Day Years Used Date Smoking Tobacco: Former Cigarettes Q uit: 03/28/2024 Passive Smoke Exposure: Never Smokeless Tobacco: Never Comments:Quit smokin-5ci garlettes daily Alcohol Use Standard Drinks/Week Comments Never 0 (1 standard drink = 0.6 oz pur e alcohol) Comments No Sex and Gender Information Value Date Recorded Sex Assigned at Not on file Legal Sex Female 2:09 PM CARPENTER PROTOTYPE Gender Identity Not on file Sexual Orientation Not on file documented as of this encounter Miscellaneous Notes * Telephone Encounter - Martina Fletcher LPN - 10/23/2024 3:05 PM CDT 10/23/2024 3:05 PM Returned call and spoke with patient. Discussed order for oxygen request to know if patient has been seen in the last 90 days for which she has not. She states she does not have a appointment to follow-up with Dr. Damian as they can never get her in. I let her know I would ask Dr. Damian to advise about the oxygen order and give her a call once he responds. Voiced understanding. Martina CASANOVA * Telephone Encounter - Jama Leo - 10/23/2024 2:44 PM CDT Copied from [facility] #[id number]. Topic: Medication Request >> Oct 23, 2024 2:43 PM aJma Walters wrote: Caller Name: Maribell Foreman Callback Number: Telephone Information: Emanuel is needing a new script for the oxygen, and said something need to say she qualifies for it. documented in this encounter Plan of Treatment Upcoming Encounters Date Type Department Care Team (Late st Contact Info) Description 01/26/2025 8:40 AM CARPENTER PROTOTYPE Office Visit [facility] Gastroenterology- [place] [address] [address] Robert Estrada MD [address] [address] documented as of this encounter Visit Diagnoses Not on filedocumented in this encounter Care Teams Die Tester Relationship Specialty Start Date End Date Francisco Mckinley DO [address], [place] [address] PCP - General 06/07/20 documented as of this encounter
--- OUTSIDE RECORDS SUMMARY | 2024-10-29 08:04 | XMS_ITS | Encounter Summary ---
Author Organization [facility] Address [address] [place] [address] Care Team Providers Care Stock Holder Name Role Phone Francisco Mckinley DO Primary Care Provider Reason for Visit * Reason Comments Med Refill Encounter Details Date Type Department Care Team (Late st Contact Info) Description 10/22/2024 Refill [facility] Medicine [address] [phone] Francisco Mckinley DO [address] [place] [phone] Cellulitis of right lower extremity; Cellulitis of left lower extremity; Sepsis with acute liver failure without hepatic coma or septic shock, due to unspecified organism (CMS/HCC); History of hepatitis C; Uncomplicated opioid dependence; Chronic cholecystitis without calculus; RUQ abdominal pain; Closed fracture of left ankle, initial encounter Social History Tobacco Use Types Packs/Day Years Used Date Smoking Tobacco: Former Cigarettes Q uit: 03/28/2024 Passive Smoke Exposure: Never Smokeless Tobacco: Never Comments:Quit smokin-5ci garlettes daily Alcohol Use Standard Drinks/Week Comments Never 0 (1 standard drink = 0.6 oz pur e alcohol) Comments No Sex and Gender Information Value Date Recorded Sex Assigned at Not on file Legal Sex Female 2:09 PM INFORMATION SERVICES CONSULTANT Gender Identity Not on file Sexual Orientation Not on file documented as of this encounter Miscellaneous Notes * Telephone Encounter - Martina Fletcher LPN - 10/22/2024 10:49 AM CDT Medication Refill Request Last Fill Date:10/08/24 55 Recent and Future Visits: Recent Visits Date Type Provider Dept 07/07/24 Video Visit Ailyn Leon, [facility] 06/27/24 Video Visit Francisco Mckinley, DO [facility] 04/03/24 Office Visit Francisco Mckinley, DO [facility] 02/01/24 Office Visit Francisco Mckinley, DO [facility] 12/27/23 Office Visit Francisco Mckinley, DO [facility] 12/13/23 Office Visit Francisco Mckinley, DO [facility] 09/27/23 Office Visit Francisco Mckinley, [facility] 08/23/23 Office Visit Kacy Lazo, [facility] Showing recent visits within past 540 days with a meds authorizing provider and meeting all other requirements Future Appointments No visits were found meeting these conditions. Showing future appointments within next 365 days with a meds authorizing provider and meeting all other requirements documented in this encounter Plan of Treatment Upcoming Encounters Date Type Department Care Team (Late st Contact Info) Description 01/26/2025 8:40 AM INFORMATION SERVICES CONSULTANT Office Visit [facility] Gastroenterology- [place] [address] [place] [address] Robert Estrada MD 2[address] [facility] [address] [place] [address] documented as of this encounter [...] Closed fracture of left ankle, initial encounter documented in this encounter Care Teams Stock Holder Relationship Specialty Start Date End Date Francisco Mckinley DO [address] [place] [address] PCP - General 06/07/20 documented as of this encounter
--- OUTSIDE RECORDS SUMMARY | 2024-10-29 08:04 | XMS_ITS | Encounter Summary ---
Author Organization [facility] Address [address] [place] [address] Care Team Providers Care Auxiliary Equipment Tender Name Role Phone Francisco Mckinley DO Primary Care Provider [phone] Reason for Visit * Reason Comments Medication Refill Encounter Details Date Type Department Care Team (Late st Contact Info) Description 10/23/2024 Refill [facility] Medicine [address] [phone] Francisco Mckinley DO [address] [place] [phone] Social History Tobacco Use Types Packs/Day Years Used Date Smoking Tobacco: Former Cigarettes Q uit: 03/28/2024 Passive Smoke Exposure: Never Smokeless Tobacco: Never Comments:Quit smokin-5ci garlettes daily Alcohol Use Standard Drinks/Week Comments Never 0 (1 standard drink = 0.6 oz pur e alcohol) Comments No Sex and Gender Information Value Date Recorded Sex Assigned at Not on file Legal Sex Female 2:09 PM MARKETING SERVICES SPECIALIST Gender Identity Not on file Sexual Orientation Not on file documented as of this encounter Miscellaneous Notes * Telephone Encounter - Martina Fletcher LPN - 10/23/2024 2:10 PM CDT Duplicate request.Martina Fletcher LPN, 10/23/2024 2:10 PM * Telephone Encounter - Mi Middleton - 10/23/2024 1:42 PM CDT Copied from [facility] #[id number]. Topic: Medication Request >> Oct 23, 2024 1:41 PM Mi Chao wrote: Caller Name: Maribell Foreman Callback Number: Telephone Information: Medication (Ask patient/caregiver to spell if possible): Morphine Note: All medication prescriptions can be requested using one [facility] Pref[facility] Call Notes: Did caller contact the correct clinic for prescribing provider? Yes Ask caller if the refill is for a controlled medication. Is this for a controlled Medication? Yes Is there an encounter open? No documented in this encounter Plan of Treatment Upcoming Encounters Date Type Department Care Team (Late st Contact Info) Description 01/26/2025 8:40 AM MARKETING SERVICES SPECIALIST [facility] [address] [address] Robert Estrada MD [address] [address] documented as of this encounter Visit Diagnoses Not on filedocumented in this encounter Care Teams Auxiliary Equipment Tender Relationship Specialty Start Date End Date Francisco Mckinley DO [address], [place] [address] PCP - General 06/07/20 documented as of this encounter
--- OUTSIDE RECORDS SUMMARY | 2024-10-29 08:04 | XMS_ITS | Encounter Summary ---
Author Organization [facility] Address 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 She wants to make sure you are aware that she was treated for another UTI when she had her fracture. * Telephone Encounter - Enedina Rojo - 10/10/2024 12:31 PM CDT Copied from [facility] #[id number]. Topic: CPA Information Request >> Oct 10, 2024 12:30 PM Enedina Royal wrote: Caller is returning phone call from clinic. Caller Name: pt Patient/Caregiver Callback Number: Telephone Information: Patient Has Additional Questions Are the credentials of the caregiver who talked to the patient clinical mental health counselor? No Call Notes: Patient/Caller requires a call back to discuss a medication that was suppose to be called in for her fractured leg and foot. Pt is needing a call back please. documented in this encounter Plan of Treatment Upcoming Encounters Date Type Department Care Team (Late st Contact Info) Description 01/26/2025 8:40 AM GEOSCIENCES PROFESSOR Office Visit [facility] Gastroenterology- [place] [address] [address] Robert Estrada MD [address] [address] documented as of this encounter Visit Diagnoses Not on filedocumented in this encounter Care Teams Conveyor Technician Relationship Specialty Start Date End Date Francisco Mckinley DO [address], [place] [address] PCP - General 06/07/20 documented as of this encounter
--- OUTSIDE RECORDS SUMMARY | 2024-10-29 08:05 | XMS_ITS | Encounter Summary ---
Author Organization [facility] Address [address] [place] [address] Phone Care Team Providers Care Filler Mixer Name Role Phone Francisco Mckinley DO Primary Care Provider [phone] Encounter Details Date Type Department Care Team (Late st Contact Info) Description 07/01/2021 Orders Only [facility] [address] [place] [address] Cirrhosis, not otherwise specified (HCC); Portal hypertension (HCC); Hyperammonemia, not otherwise specified (HCC) Social History Tobacco Use Types Packs/Day Years Used Date Smoking Tobacco: Never Assessed Comments Unknown Sex and Gender Information Value Date Recorded Sex Assigned at Not on file Legal Sex Female 12:19 PM EDT Gender Identity Not on file Sexual Orientation Not on file documented as of this encounter Plan of Treatment Not on file documented as of this encounter Visit Diagnoses Diagnosis Cirrhosis, not otherwise specified (HCC) Portal hypertension (HCC) Portal hypertension Hyperammonemia, not otherwise specified (HCC) documented in this encounter Care Teams Filler Mixer Relationship Specialty Start Date End Date Francisco Mckinley DO [address] [address] PCP - General Family Medicine 07/01/21 documented as of this encounter
--- OUTSIDE RECORDS SUMMARY | 2024-10-29 08:05 | XMS_ITS | Clinical Summary ---
Author Organization [facility] Address [address] [place] [address] [place] [address] Care Team Providers Care Children'S Tutor Nursery Name Role Phone Francisco Mckinley DO Primary Care Provider [phone] Social History Tobacco Use Types Packs/Day Years Used Date Smoking Tobacco: Never Assessed Comments Unknown Sex and Gender Information Value Date Recorded Sex Assigned at Not on file Legal Sex Female 12:19 PM EDT Gender Identity Not on file Sexual Orientation Not on file Plan of Treatment Health Maintenance Due Date Last Done Comments Breast Cancer Screening 1975 Hepatitis B Vaccine (1 of 3 - 19+ 3-dose series) 09/09 Colorectal Cancer Screening: Annual FOBT 09/10/2023 Colorectal Cancer Screening: Colonoscopy 09/10/2023 Colorectal Cancer Screening: Sigmoidoscopy 09/10/2023 Pneumococcal Vaccine: 50+ Years (1 of 1 - PCV) 025 Influenza Vaccine (#1) 2024 Insurance Medicaid [place] ([id number]) Care Teams Children[facility] Nurs[facility] Relationship Specialty Start Date End Date Francisco Mckinley DO [address] [place] [address] PCP - General Family Medicine 07/01/21
--- OUTSIDE RECORDS SUMMARY | 2024-10-29 08:05 | XMS_ITS | Encounter Summary ---
Author Organization [facility] Address [address] [place] [address] Care Team Providers Care Mobile Application Developer Name Role Phone Arlen Francisco Primary Care Provider Encounter Details Date Type Department Care Team (Late Contact Info) Description 04/04/2024 Results Follow-Up [facility] [address] [place] [address] Meliton Mckinley MD [address] [place] [address] POC URINALYSIS DIPSTICK AUTOMATED Social [...] on file Legal Sex Female 2:09 PM TELEPATHIST Gender Identity Not on file Sexual Orientation Not on file documented as of this encounter Plan of Treatment Upcoming Encounters Date Type Department Care Team (Late Contact Info) Description 01/26/2025 8:40 AM TELEPATHIST Office Visit [facility]- [place] [address] [id number] Robert Estrada MD [address] [place] [address] documented as of this encounter Visit Diagnoses Not on filedocumented in this encounter Additional Health Concerns Assessment Noted Time PHQ-9 Depression Total Score: 3 04/03/19 25 12:00 PM TELEPATHIST documented as of this encounter Care Teams Mobile Application Developer Relationship Specialty Start Date End Date Francisco Mckinley DO [address] [place] [address] PCP - General 06/07/20 documented as of this encounter
[2024-10-29] MEDS: NIFEdipine ER (24 hr) 30 mg Tablet PO (08:13)
[2024-10-29] MEDS: lipase-protease-amylase Capsule 1 EACH PO ×3 (08:14→18:03)
[2024-10-29] MEDS: morphine ER (12 HR) 100 mg Tablet PO ×3 (08:16→21:10)
--- NOTE | 2024-10-29 08:30 | PC.SOCIAL ---
Social Service Level 2 application has been accepted and awaiting approval for SAC.
--- NOTE | 2024-10-29 12:11 | PC.SOCIAL ---
Lumber Tying Machine Operator CM called and left message for Shabana miles/ [facility] to f/up on Level 2.
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
--- NOTE | 2024-10-29 15:07 | PC.SOCIAL ---
Audio Visual Technician [facility] Access Code: [email or web address] level 2 is still pending @ this time.
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
[2024-10-30] VITALS (10 sets, daily range): BP systolic 92–130; BP diastolic 58–95; PULSE 79–97; RESP 16–18; O2SAT 86–98
--- NOTE | 2024-10-30 08:10 | PC.SOCIAL ---
Social Service Level 2 [employer] Access Code: [email or web address] is still pending @ this time. CM called and left message w/ Shabana Bentley w/ [facility] to f/up and determine why it has not been approved.
[2024-10-30] MEDS: morphine ER (12 HR) 100 mg Tablet PO ×2 (08:41→16:08)
--- NOTE | 2024-10-30 08:54 | PC.NURSE ---
per Case Management, [facility] been accepted to [facility], pending level two before able to transfer to [place]
--- NOTE | 2024-10-30 09:01 | PC.NURSE ---
Nahomy ordered @0800 delayed d/t not being loaded in [employer] at this time.
[2024-10-30] MEDS: lipase-protease-amylase Capsule 1 EACH PO ×2 (09:30→12:22)
--- NOTE | 2024-10-30 10:19 | PC.SOCIAL ---
Custodial Officer CM reviewed Level 2 and it was denied for special admissions and will need a complete Level 2 it has been assigned to [facility] and they have until 11/12/24 to complete.
--- NOTE | 2024-10-30 11:05 | PC.NURSE ---
pt resting in room 14, respirations even and unlabored with equal chest rise.
--- NOTE | 2024-10-30 11:40 | PC.SOCIAL ---
Receiving Weigher Per Kortney RN-[facility] has evaluated patient and will have 72 hours to review. She reports that equipment and meds would not be an issue. CM called and spoke to Lyssa @ [facility] and she reports they are unable to accept w/ Level 2 pending it must be complete. She reports that if patient was to go to a hotel and still wanted to come to [facility] they could still accept once Level 2 was completed. Patient could use [facility] transport to get to [facility]. CM will update patient.
--- NOTE | 2024-10-30 12:23 | PC.NURSE ---
provided pt with lunch tray, denies any further needs at this time
--- NOTE | 2024-10-30 12:29 | PC.SOCIAL ---
Social Service All required information faxed to [facility] @ [phone] @ this time.
--- NOTE | 2024-10-30 12:43 | PC.SOCIAL ---
Judge Clerk Patient called CM and CM updated that Level 2 would need interview. Awaiting [place] evaluation. Patient becomes tearful and asks if she will be kicked out. CM does explain to patient that currently safe DC is trying to be arranged.
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
[2024-10-30] MEDS: HYDROmorphone tab 2 MG TABLET 4 MG PO (13:48)
--- NOTE | 2024-10-30 13:48 | PC.NURSE ---
per Shabana in Case Management, pt was temporarily denied to go to [facility] until an interview for the level two can be completed. Shabana states person conducting interview has until 11/12 to complete. contacted and updated Hospital Attendant.
--- NOTE | 2024-10-30 15:06 | PC.SOCIAL ---
Manager Stars Spoke w/ Yanelis Betancourt w/ [employer] and she reports she can be here Sunday [phone] to complete the interview for the Level 2. Her phone number is [phone]. She will come in person and complete the interview.
--- NOTE | 2024-10-30 15:38 | PC.NURSE ---
this nurse, Big Data Admin in room during conversation with [facility]. per Nathalie Muller RN; Seema Kapadia RN is to contact [facility] for home oxygen as well as get home medication/wheelchair. Adult protective services in room at this time speaking with patient. Case management, Adelita, in room at this time as well.
--- NOTE | 2024-10-30 15:49 | PC.SOCIAL ---
Crime Prevention Police Officer DC arrangements are being made by Arleen Stephens and DELMA Stephenson. Seema is coordinating w/ HOME, and [facility] to obtain equipment for patient including w/c, oxygen, and nebulizer. She is also going to coordinate w/ pharmacy to obtain meds.
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
--- NOTE | 2024-10-30 17:24 | PC.NURSE ---
There was an issue with all continued home medications crossing over to d/c paperwork, so I printed her home medications list and placed it with her d/c paperwork so she would have a list to refer to. DME has been delivered to her room.
--- NOTE | 2024-10-30 17:33 | PC.NURSE ---
I received a return call from [facility] and they are able to fill all medications with the exception of Hydromorphone that was sent in by Dr. Gaffney. It was last filled on 10/25 and Medicaid doesn't want to allow them to be filled until 10/31. After review with Dr. Gaffney, patient last had MS Contin 100 mg at 1608 and should be well-managed with pain until tomorrow, 10/31. This was verbalized to pharmacy and they will complete other medications and deliver.
--- NOTE | 2024-10-30 17:44 | PC.NURSE ---
I called and spoke with Dr. Del Rosario and informed him that patient was being d/c'd from ED and inquired if he wanted any further medications added. He provided a verbal order for Prednisone 20 mg 1 tablet PO daily x3 days and Azithromycin 250 mg 1 tablet PO daily x3 days. I called and spoke with Ivone, pharmacist with [facility] and provided verbal order. She read back verbal order and stated she would add it to the order to be delivered to ED. I spoke with Dalila Covarrubias RN and Haylee Nuñez RN and informed them of pending pharmacy delivery and to contact [facility] and [place] Machine Operator once meds are delivered to transport patient to [facility].
--- NOTE | 2024-10-30 18:08 | PC.NURSE ---
PT given medications brought by [facility]. PT educated that the medication was now in her possession and she was responsible for the medications. PT verbalized understanding.
--- NOTE | 2024-10-31 13:45 | PC.SOCIAL ---
Steamboat Captain Abdulaziz called [facility] and stefanie and discussed that patient has DC'd to [facility]. She is agreeable to go to the hotel to interview the patient. CM called the patient Maribell and had to call patient @ [phone]. She is agreeable to participating in the interview. ABDULAZIZ explained that once the interview is completed and approved patient could transition to [facility] w/ her sig. other. She is agreeable. ABDULAZIZ called [facility] back and provided w/ appropriate contact number for her to call and schedule interview for Sunday.
== END 2024-10-30 20:05 | disposition home or self-care (01) ==
PROVIDERS: Emergency Medicine; Emergency Provider Family Medicine; PCP Family Medicine
DX: T25.022A Burn of unspecified degree of left foot, initial encounter (principal); S82.851D Displaced trimalleolar fracture of right lower leg, subsequent encounter for closed fracture with routine healing; X58.XXXD Exposure to other specified factors, subsequent encounter; E11.9 Type 2 diabetes mellitus without complications; J44.9 Chronic obstructive pulmonary disease, unspecified; I10 Essential (primary) hypertension
CPT/HCPCS: 36416; 73610; 82962; 94640; 94760; 96372; J1171; J1650; J7512; J9999; Q0144; Q0162

== ENCOUNTER → 2024-11-06 15:17 | Outpatient (BNVA) | payer MEDICAID, SELFPAY | PROVIDERS: PCP Family Medicine; Visit Provider Podiatrist Foot & Ankle Surgery | DX: S82.851A Displaced trimalleolar fracture of right lower leg, initial encounter for closed fracture (principal); X58.XXXA Exposure to other specified factors, initial encounter; Z91.199 Patient's noncompliance with other medical treatment and regimen due to unspecified reason | CPT/HCPCS: 73610; 99214 ==

== ENCOUNTER → 2024-11-13 11:16 | Outpatient (BNVA) | payer MEDICAID, SELFPAY | PROVIDERS: PCP Family Medicine; Visit Provider Podiatrist Foot & Ankle Surgery | DX: S82.851A Displaced trimalleolar fracture of right lower leg, initial encounter for closed fracture (principal); Z91.199 Patient's noncompliance with other medical treatment and regimen due to unspecified reason; X58.XXXA Exposure to other specified factors, initial encounter | CPT/HCPCS: 99024 ==

== ENCOUNTER → 2024-11-20 14:21 | Outpatient (BNVA) | payer MEDICAID, SELFPAY | PROVIDERS: PCP Family Medicine; Visit Provider Podiatrist Foot & Ankle Surgery | DX: S82.851A Displaced trimalleolar fracture of right lower leg, initial encounter for closed fracture (principal); Z91.199 Patient's noncompliance with other medical treatment and regimen due to unspecified reason; X58.XXXA Exposure to other specified factors, initial encounter | CPT/HCPCS: 29405; 73610; 87070; 87075; 87077; 87186; 87205; 99024 ==

== ENCOUNTER 2024-11-22 14:19 | Emergency (ER) | payer MEDICAID, SELFPAY ==
[2024-11-22 14:22] VITALS: BP 187/122; PULSE 73; RESP 18; TEMP 36.4; O2SAT 97
--- OUTSIDE RECORDS SUMMARY | 2024-11-22 14:28 | XMS_ITS | Encounter Summary ---
Author Organization [facility] Address [address] [place] [address] Care Team Providers Care Gluing Machine Operator Electronic Name Role Phone Francisco Mckinley DO Primary Care Provider [phone] Encounter Details Date Type Department Care Team (Late st Contact Info) Description 04/04/2024 Results Follow-Up [facility] [address] [place] [address] Meliton Mckinley MD [address] [place] [address] POC URINALYSIS DIPSTICK AUTOMATED Social [...] any time in the past 12 m [facility], were you homeless or living in a fci (including now)? Yes 02/01/2024 Feeling Safe Answer Date Recorded Are you in a relationship wi th someone who hurts you emotionally and/or physically? No 10/03/2022 Comments No Sex and Gender Information Value Date Recorded Sex Assigned at Not on file Legal Sex Female 2:09 PM WINDOW GLASS CUTTER OFF Gender Identity Not on file Sexual Orientation Not on file documented as of this encounter Plan of Treatment Upcoming Encounters Date Type Department Care Team (Late st Contact Info) Description 12/17/2024 2:10 PM CDT Office Visit [facility] Family Medicine [place] [address] [place] [phone] Kacy Lazo FNP [address] [place] [phone] 01/26/2025 8:40 AM WINDOW GLASS CUTTER OFF Office Visit [facility] Gastroenterology- [place] [address] [address] Robert Estrada MD [address] [address] documented as of this encounter Visit Diagnoses Not on filedocumented in this encounter Additional Health Concerns Assessment Noted Time PHQ-9 Depression Total Score: 3 04/03/19 25 12:00 PM WINDOW GLASS CUTTER OFF documented as of this encounter Care Teams Gluing Machine Operator Electronic Relationship Specialty Start Date End Date Francisco Mckinley DO [address] [place] [phone] PCP - General 06/07/20 documented as of this encounter
--- OUTSIDE RECORDS SUMMARY | 2024-11-22 14:28 | XMS_ITS | Encounter Summary ---
Author Organization [facility] Address [address] [place] [address] Care Team Providers Care Jeweler Apprentice Name Role Phone Francisco Mckinley DO Primary Care Provider [phone] Reason for Visit * Reason Comments Medication Refill Encounter Details Date Type Department Care Team (Late st Contact Info) Description 11/19/2024 Refill [facility] Medicine [address] [phone] Francisco Mckinley DO [address] [place] [phone] Cellulitis of right lower extremity; Cellulitis of left lower extremity; History of hepatitis C; Uncomplicated opioid dependence; Chronic cholecystitis without calculus; RUQ abdominal pain; Closed fracture of left ankle, sequela Social History Tobacco Use Types Packs/Day Years [...] in the past 12 m [facility], were you homeless or living in a [...] on file Legal Sex 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 Gender Identity Not on file Sexual Orientation Not on file documented as of this encounter Miscellaneous Notes * Telephone Encounter - Daily Flores LPN - 11/19/2024 4:35 PM CDT Medication Refill Request Last Fill Date:11/17/24 Recent and Future Visits: Recent Visits Date Type Provider Dept 07/07/24 Video Visit Ailyn Leon FNP [facility] 06/27/24 Video Visit Francisco Mckinley DO [facility] 04/03/24 Office Visit Francisco Mckinley DO [facility] 02/01/24 Office Visit Francisco Mckinley, DO [facility] 12/27/23 Office Visit Arlen Francisco, DO [facility] 12/13/23 Office Visit Arlen Francisco, DO [facility] 09/27/23 Office Visit Francisco Mckinley, DO [facility] 08/23/23 Office Visit Kacy Lazo FNP [facility] Showing recent visits within past 540 days with a meds authorizing provider and meeting all other requirements Future Appointments Date Type Provider Dept 12/17/24 Appointment Kacy Lazo FNP [facility] Showing future appointments within next 365 days with a meds authorizing provider and meeting all other requirements * Telephone Encounter - Jama Leo - 11/19/2024 4:27 PM CDT Copied from [facility] #[id number]. Topic: Medication Request >> Nov 19, 2024 4:26 PM Jama Walters wrote: Caller Name: Maribell Foreman Callback Number: Telephone Information: Medication (Ask patient/caregiver to spell if possible): hydromorphone Note: All medication prescriptions can be requested using one [facility] Preferred Pharmacy: [facility] pharmacy Call Notes: needing this refill on Sunday Did caller contact the correct clinic for prescribing provider? Yes Ask caller if the refill is for a controlled medication. Is this for a controlled Medication? Yes Is there an encounter open? No documented in this encounter Plan of Treatment Upcoming Encounters Date Type Department Care Team (Late st Contact Info) Description 12/17/2024 2:10 PM CDT Office Visit [facility] [address] [place] [phone] Kacy Lazo FNP [address] [phone] 01/26/2025 8:40 AM FISH PROCESSING SUPERVISOR Office Visit [facility] Gastroenterology- [place] [address] [facility] [address] [place] [address] Robert Estrada MD [address] [facility] [address] [place] [address] documented as of this encounter Visit Diagnoses Diagnosis Cellulitis of right lower extremity Cellulitis and abscess of leg, except foot Cellulitis of left lower extremity Cellulitis and abscess of leg, except foot History of hepatitis C Personal history of other infectious and parasitic disease Uncomplicated opioid dependence Opioid type dependence, unspecified Chronic cholecystitis without calculus Chronic cholecystitis RUQ abdominal pain Abdominal pain, right upper quadrant Closed fracture of left ankle, sequela documented in this encounter Care Teams Jeweler Apprentice Relationship Specialty Start Date End Date Francisco Mckinley DO [address] [place] [address] PCP - General 06/07/20 documented as of this encounter
--- OUTSIDE RECORDS SUMMARY | 2024-11-22 14:28 | XMS_ITS | Encounter Summary ---
Author Organization [facility] Address [address] [place] [address] Care Team Providers Care Motor Vehicle Emissions Inspector Name Role Phone Francisco Mckinley DO Primary Care Provider [phone] Reason for Visit * Reason Comments Information Encounter Details Date Type Department Care Team (Late st Contact Info) Description 09/17/2024 Telephone [facility] Medicine [address] [phone] Francisco Mckinley DO [address] [place] [phone] Information Social History Tobacco Use Types [...] the past [address] [facility], were you homeless or living in a [...] on file Legal Sex Female 2:09 PM SEISMOGRAPH CHIEF Gender Identity Not on file Sexual Orientation [...] 4:56 PM CDT Copied from [facility] #[id number]. Topic: Established Patient Care >> Sep 17, 2024 4:54 PM Natalie Gloria wrote: Is the patient established with a [facility] provider? Yes, select appropriate option in Discharge Facility SmartList Caller Name: Maribell Foreman Callback Number: Telephone Information: Call Notes: Discharge from [facility] ED on 09/15 Patient is High [...] Description 12/17/2024 2:10 PM CDT Office Visit [facility] Medicine [place] [address] [place] [phone] Kacy Lazo FNP [address] [place] [phone] 01/26/2025 8:40 AM SEISMOGRAPH CHIEF Office Visit [facility] Gastroenterology- [place] [address] [phone] Robert Estrada MD [address] [phone] documented as of this encounter Visit Diagnoses Not on filedocumented in this encounter Care Teams Motor Vehicle Emissions Inspector Relationship Specialty Start Date End Date Francisco Mckinley DO [address] [place] [phone] PCP - General 06/07/20 documented as of this encounter
--- OUTSIDE RECORDS SUMMARY | 2024-11-22 14:28 | XMS_ITS | Clinical Summary ---
Author Organization [facility] Facility Address [address] [place] [address] [place] [address] Care Team Providers Care Animal Physiologist Name Role Phone Francisco Mckinley DO Primary Care Provider [phone] Social History Tobacco Use Types Packs/Day Years [...] 2024 Insurance Medicaid [place] ([id number]) Care Teams Animal Physiologist Relationship Specialty Start Date End Date Francisco Mckinley DO [address] [place] [address] PCP - General Family Medicine 07/01/21
--- OUTSIDE RECORDS SUMMARY | 2024-11-22 14:28 | XMS_ITS | Encounter Summary ---
Author Organization [facility] Address [address] [place] [address] Care Team Providers Care Records Management Technician Name Role Phone Francisco Mckinley Primary Care Provider [phone] Encounter Details Date Type Department Care Team (Late st Contact Info) Description 11/19/2024 External Device Data STL ABSTRACTION Provider, Abstract [...] any time in the past 12 m [facility], were you homeless or living in a senior care (including now)? Yes 02/01/2024 Feeling Safe Answer [...] on file Legal Sex Female 2:09 PM PENSION CONSULTANT Gender Identity Not on file Sexual Orientation Not on file documented as of this encounter Plan of Treatment Upcoming Encounters Date Type Department Care Team (Late st Contact Info) Description 12/17/2024 2:10 PM CDT Office Visit [facility] Family Medicine [place] [address] [place] [phone] Kacy Lazo FNP [address] [place] [phone] 01/26/2025 8:40 AM PENSION CONSULTANT Office Visit [facility] Gastroenterology- [place] [address] [facility] [address] [place] [phone] Robert Estrada MD 5 [facility] [address] [place] [phone] documented as of this encounter Visit Diagnoses Not on filedocumented in this encounter Care Teams Records Management Technician Relationship Specialty Start Date End Date Francisco Mckinley DO [address] [place] [phone] PCP - General 06/07/20 documented as of this encounter
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
--- OUTSIDE RECORDS SUMMARY | 2024-11-22 14:28 | XMS_ITS | Encounter Summary ---
Author Organization [facility] Address [address] [place] [address] Care Team Providers Care Implementation Specialist Payroll Name Role Phone Francisco Mckinley DO Primary Care Provider [phone] Reason for Visit * Reason Comments Information Encounter Details Date Type Department Care Team (Late st Contact Info) Description 07/01/2024 Telephone [facility] Medicine [address] [phone] Francisco Mckinley DO [address] [place] [phone] Information Social History Tobacco Use Types [...] any time in the past 12 m [facility], were you homeless or living in [...] on file 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 Topic: Patient or Caregiver Communication Request >> Jul 01, 2024 11:47 AM Eva Gloria wrote: Patient or Caregiver calling to update Care team on status after a recent visit Caller: Maribell Foreman Patient/Caregiver Callback Number: [phone] Call Notes: patient is not feeling any better and has a few more spots that have popped up on leg documented in this encounter Plan of Treatment Upcoming Encounters Date Type Department Care Team (Late st Contact Info) Description 12/17/2024 2:10 PM CDT Office Visit [facility] [address] [place] [phone] Kacy Lazo FNP [address] [place] [phone] 01/26/2025 8:40 AM FIREWORKS ASSEMBLER Office Visit [facility] Gastroenterology- [place] [address] [phone] Robert Estrada MD [address] [phone] documented as of this encounter Visit Diagnoses Not on filedocumented in this encounter Care Teams Implementation Specialist Payroll Relationship Specialty Start Date End Date Francisco Mckinley DO [address] [place] [phone] PCP - General 06/07/20 documented as of this encounter
--- OUTSIDE RECORDS SUMMARY | 2024-11-22 14:28 | XMS_ITS | Encounter Summary ---
Author Organization [facility], [facility] Address [address] [address] [place] [address] Phone Care Team Providers Care Welt Butter Hand Name Role Phone Francisco Mckinley DO Primary Care Provider [phone] Encounter Details Date Type Department Care Team (Late st Contact Info) Description 07/01/2021 Orders Only [facility] [address] [place] [address] Cirrhosis, not otherwise specified (HCC); [...] (HCC) documented in this encounter Care Teams Welt Butter Hand Relationship Specialty Start Date End Date Francisco Mckinley DO [address], [place] [address] PCP - General Family Medicine 07/01/21 documented as of this encounter
--- OUTSIDE RECORDS SUMMARY | 2024-11-22 14:28 | XMS_ITS | Encounter Summary ---
Author Organization [facility] Address 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 Discussed that patient is getting her oxygen and nebulizer from another DME company. Voiced understanding. Daily CASANOVA * Telephone Encounter - Eva Flaherty - 11/20/2024 10:52 AM CDT Copied from [facility] #[id number]. Topic: Ymeowhsa-Tc-Xldbaulp Call >> Nov 20, 2024 10:51 AM Eva Gloria wrote: Caller is requesting to speak with Clinical Care Team. Caller Name: ger mahan) Callback Number: [phone] Is the caller a Physician, Nurse Practitioner or Physician Neon Sign Mechanic? No Call Notes: trying to contact with patient with no answer medication wont be filled Is this addressing an immediate patient care need? 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
--- NOTE | 2024-11-22 15:33 | W.ED.HA ---
HPI - Headache General: Chief Complaint: Headache Stated Complaint: CHILLS, HEADACHE Time Seen by Provider: 11/22/24 15:32 History of Present Illness: 49-year-old female presents emergency room with a headache. She has had some chills. She had pain behind her left eye that is much like her migraine. She says her migraines medicine has not been working. She also had surgeries with Dr. Ellison. She has a cast that was put on yesterday. Related Data Home Medications ?Medication ?Instructions ?Recorded ?Confirmed albuterol sulfate 90 mcg/actuation 2 puff inhalation Q6H PRN 10/19/23 11/22/24 aerosol inhaler (Ventolin HFA) Shortness Of Breath amitriptyline 75 mg tablet 75 mg PO BEDTIME 10/19/23 11/22/24 doxepin 10 mg capsule 10 mg PO BEDTIME PRN Sleep 10/19/23 11/22/24 cholecalciferol (vitamin D3) 1,250 50,000 unit PO Q7D 01/17/24 11/22/24 mcg (50,000 unit) capsule gabapentin 300 mg capsule 600 mg PO BID 01/17/24 11/22/24 insulin glargine 100 unit/mL See Rx Instructions .Route .COMPLEX 09/23/24 11/22/24 subcutaneous solution (Lantus U-100 Insulin) ipratropium 0.5 mg-albuterol 3 mg See Rx Instructions .Route .COMPLEX 09/23/24 11/22/24 (2.5 mg base)/3 mL nebulization soln isosorbide mononitrate 60 mg 60 mg PO DAILY 09/23/24 11/22/24 tablet,extended release 24 hr morphine 100 mg tablet,extended 100 mg PO Q8H 09/23/24 11/22/24 release (MS Contin) nifedipine 30 mg tablet,extended 30 mg PO DAILY 09/23/24 11/22/24 release 24 hr (Procardia XL) spironolactone 100 mg tablet 100 mg PO DAILY 09/23/24 11/22/24 (Aldactone) furosemide 40 mg tablet See Rx Instructions .Route .COMPLEX 10/27/24 11/20/24 lamotrigine 100 mg tablet 100 mg PO DAILY 10/27/24 11/22/24 (Lamictal) metoprolol tartrate 50 mg tablet 50 mg PO BID 10/27/24 11/22/24 ondansetron 4 mg disintegrating See Rx Instructions .Route .COMPLEX 10/27/24 11/22/24 tablet pantoprazole 40 mg tablet,delayed 40 mg PO DAILY 10/27/24 11/22/24 release potassium chloride 20 mEq 20 meq PO DAILY 11/22/24 11/22/24 tablet,extended release Previous Rx's ?Medication ?Instructions ?Recorded levothyroxine 50 mcg tablet 50 mcg PO QAM 30 days #30 tabs 08/19/23 bnlrwv-ckvafbsn-okvffrl 1 cap PO TID 30 days #30 caps 08/19/23 3,000-9,500-15,000 unit capsule, delayed rel (Creon) naloxone 4 mg/actuation nasal 4 mg intranasal Q2M PRN opioid 09/24/24 spray (Narcan) overdose #2 ea Knee Scooter #1 ea 10/14/24 tizanidine 6 mg capsule See Rx Instructions .Route 10/21/24 .COMPLEX #21 caps hydromorphone 4 mg tablet 4 mg PO BID PRN pain #7 tabs 10/30/24 doxycycline hyclate 100 mg capsule 100 mg PO BID 10 days #20 caps 11/20/24 levofloxacin 750 mg tablet 750 mg PO DAILY 7 days #10 tabs 11/22/24 Allergies Allergy/AdvReac Type Severity Reaction Status Date / Time codeine Allergy Unknown Unknown Verified 11/20/24 13:43 aspirin Allergy ALGY-Hives Verified 11/20/24 13:43 diphenhydramine (From Allergy ADR-Muscle Verified 11/20/24 13:43 Benadryl) Pain Sulfa (Sulfonamide Allergy ALGY-Swell Verified 11/20/24 13:43 Antibiotics) Lip/Tongue/Throat Review of Systems Narrative: Constitutional symptoms: Negative except as documented in HPI. Skin symptoms: Negative except as documented in HPI. Eye symptoms: Negative except as documented in HPI. ENMT symptoms: Negative except as documented in HPI. Respiratory symptoms: Negative except as documented in HPI. Cardiovascular symptoms: Negative except as documented in HPI. Gastrointestinal symptoms: Negative except as documented in HPI. Genitourinary symptoms: Negative except as documented in HPI. Musculoskeletal symptoms: Negative except as documented in HPI. Neurologic symptoms: Negative except as documented in HPI. Psychiatric symptoms: Negative except as documented in HPI. Endocrine symptoms: Negative except as documented in HPI. PFS ED PFSH: Medical History (Updated 11/22/24 @ 17:41 by Dayna Burgos MD) Hypokalemia assisted (current) use of opiate analgesic Pain management contract signed Metabolic encephalopathy SSS (sick sinus syndrome) Presence of permanent cardiac pacemaker Seizure disorder Tobacco dependency Hypothyroidism Accidental fentanyl overdose Overdose Cardiac arrest COPD (chronic obstructive pulmonary disease) Chronically on 3 L of oxygen Smoker Thrombocytopenia Bilateral pulmonary embolism Hepatitis B Pulmonary embolism Nicotine dependence, cigarettes, with unspecified nicotine-induced disorders Chronic hepatitis B Chronic abdominal pain Chronic hip pain Leg cramps Stomach cancer Pelvic inflammatory disease Diabetes mellitus Hypertension Encephalopathy Cirrhosis Gastroesophageal reflux GI bleeding Surgical History H/O right hemicolectomy History of right hemicolectomy H/O tubal ligation History of laparotomy History of hysterectomy Family History Mother Diabetes Father CAD (coronary artery disease) Other Cancer Social History Smoking and tobacco/nicotine status: former use of tobacco/nicotine (quit 2022) Quit status (tobacco/nicotine): has quit using Year quit tobacco: 2020 Former quit date comment: 2ppd x 26 year Hx Alcohol intake: never Substance/Drug Use: never Physical Exam Narrative: EXAM NARRATIVE: General: Alert, no acute distress. Skin: Warm, dry. Head: Normocephalic, atraumatic. Neck: Supple, trachea midline. Eye: Extraocular movements are intact. Ears, nose, mouth and throat: mucosa moist. Cardiovascular: Regular, Normal peripheral perfusion. Respiratory: Lungs are clear to auscultation, respirations are non-labored, breath sounds are equal, Symmetrical chest wall expansion. Gastrointestinal: Soft, Nontender, Non distended Musculoskeletal: Normal ROM, no deformity. Neurological: Alert and oriented, No focal neurological deficit observed. Psychiatric: Cooperative, appropriate mood & affect. Course Vital Signs: Vital signs: Vital Signs Temperature 97.5 F L 11/22/24 14:22 Pulse Rate 73 11/22/24 14:22 Respiratory Rate 18 11/22/24 14:22 Blood Pressure 187/122 11/22/24 14:22 Pulse Oximetry 97 11/22/24 14:22 Oxygen Delivery Me thod Room Air 11/22/24 14:22 MDM - Headache Medical Decision Making Medical decision making: Differential diagnosis for this patient presenting with severe headache including but not limited to and based on the above HPI, review of systems and physical exam: Intracranial hemorrhage, stroke, migraine, cluster headache, infections such as influenza, covid Orders placed to evaluate differential diagnosis based on the above differential, HPI and physical exam Lab Review: Laboratory results were reviewed and interpreted by myself the emergency room physician. No leukocytosis. No anemia. No renal failure. Flu COVID and RSV are negative. CRP and ESR around her baseline not overtly elevated above her baseline I reviewed the patient's medical record. Reexamination: Patient remained stable. No increased work of breathing. No altered mental status. No focal motor deficits. Consultation: I spoke Dr. Ellison to follow-up with the patient yesterday. He informed me that her cultures indicated she needed to be treated with Levaquin and asked that I write a prescription which I have done. I gave her first dose here. Assessment and plan: Migraine headache. ?P.o. Levaquin. IV valproic acid. IV Norflex. IV Toradol. IV Zofran. - Discharged home - Discussed plan with patient. Answered any questions. - Evaluation and treatment of this problem were appropriate in the emergency setting. Lab Data 11/22/24 15:38 11/22/24 15:38 Laboratory Results WBC 9.26 10^3/uL (3.29-11.43) 11/22/24 15:38 RBC 5.41 10^6/uL (3.85-5.65) 11/22/24 15:38 Hgb 15.80 g/dL (11.27-16.99) 11/22/24 15:38 Hct 46.4 % (36-47) 11/22/24 15:38 MCV 85.8 fl (85-98) 11/22/24 15:38 MCH 29.2 pg (27-33) 11/22/24 15:38 MCHC 34.1 g/dL (30-55) 11/22/24 15:38 RDW 13.2 % (12.1-15.1) 11/22/24 15:38 Plt Count 255 10^3/cmm (157-399) 11/22/24 15:38 MPV 9.7 fL (7.4-10.4) 11/22/24 15:38 Neut % (Auto) 69.2 % 11/22/24 15:38 Lymph % (Auto) 19.4 % 11/22/24 15:38 [place] % (Auto) 9.2 % 11/22/24 15:38 Eos % (Auto) 1.3 % 11/22/24 15:38 Baso % (Auto) 0.5 % 11/22/24 15:38 Neut # (Auto) 6.40 10^3/uL (1.8-7.7) 11/22/24 15:38 Lymph # (Auto) 1.8 10^3/uL (0.8-4.8) 11/22/24 15:38 [place] # (Auto) 0.9 10^3/uL (0.2-0.9) 11/22/24 15:38 Eos # (Auto) 0.1 10^3/uL (0.0-0.8) 11/22/24 15:38 Baso # (Auto) 0.1 10^3/uL (0.0-0.1) 11/22/24 15:38 Nucleated RBC % (auto) 0 % 11/22/24 15:38 Nucleated RBCs # 0.0 /100WBC 11/22/24 15:38 ESR 79 mm/hr (0-15) H 11/22/24 15:38 Sodium 131 mmol/L (136-145) L 11/22/24 15:38 Potassium 4.5 mmol/L (3.5-5.1) 11/22/24 15:38 Chloride 97 mmol/L (98-107) L 11/22/24 15:38 Carbon Dioxide 21 mmol/L (22-29) L 11/22/24 15:38 Anion Gap 17.5 (5-19) 11/22/24 15:38 BUN 9 mg/dL (6-20) 11/22/24 15:38 Creatinine 0.5 mg/dL (0.5-0.9) 11/22/24 15:38 GFR Calculation 130.6 mL/min (90-130) H 11/22/24 15:38 Glucose 169 mg/dL (65-115) H 11/22/24 15:38 Calculated Osmolality 275 mOsm/kg (285-295) L 11/22/24 15:38 Lactic Acid 1.7 mmol/L (0.5-2.2) 11/22/24 15:38 Calcium 10.3 mg/dL (8.5-10.5) 11/22/24 15:38 Total Bilirubin 0.8 mg/dL (0.15-1.2) 11/22/24 15:38 AST 32 U/L (0-32) 11/22/24 15:38 ALT 13 U/L (0-33) 11/22/24 15:38 Alkaline Phosphatase 177 U/L (35-105) H 11/22/24 15:38 C-Reactive Protein 24.5 mg/L (0.0-4.9) H 11/22/24 15:38 Total Protein 9.1 g/dL (6.6-8.7) H 11/22/24 15:38 Albumin 3.4 g/dL (3.5-5.2) L 11/22/24 15:38 Globulin 5.7 g/dL (1.3-4.6) H 11/22/24 15:38 Influenza A (PCR) Negative (Negative) 11/22/24 15:33 Influenza Type B (PCR) Negative (Negative) 11/22/24 15:33 RSV (PCR) Negative (Negative) 11/22/24 15:33 SARS-CoV-2 (PCR) Negative (Negative) 11/22/24 15:33 No radiology studies performed this visit Discharge Plan Discharge Patient Disposition: Home Clinical Impression: Headache, migraine, Foot infection Condition: Stable Prescriptions: New levofloxacin 750 mg tablet 750 mg PO DAILY 7 Days Qty: 10 0RF No Action doxycycline hyclate 100 mg capsule 100 mg PO BID 10 Days Qty: 20 0RF (DME) Knee Scooter See Rx Instructions .Route .MEDSUPPLY Qty: 1 0RF Rx Instructions: As directed by Emanuel tizanidine 6 mg capsule See Rx Instructions .ROUTE .COMPLEX Qty: 21 0RF Dose Instruction: take 1 capsule BY MOUTH EVERY 8 HOURS NEEDED FOR MUSCLE SPASTICITY Rx Instructions: take 1 capsule BY MOUTH EVERY 8 HOURS NEEDED FOR MUSCLE SPASTICITY amitriptyline 75 mg tablet 75 mg PO BEDTIME doxepin 10 mg capsule 10 mg PO BEDTIME PRN (Reason: Sleep) albuterol sulfate [Ventolin HFA] 90 mcg/actuation HFA aerosol inhaler 2 puff INHALATION Q6H PRN (Reason: Shortness Of Breath) furosemide 40 mg tablet See Rx Instructions .ROUTE .COMPLEX Rx Instructions: TAKE 3 TABLETS BY MOUTH EVERY MORNING AND TWO TABLETS IN THE AFTERNOON (WEIGH DAILY) pantoprazole 40 mg tablet,delayed release (DR/EC) 40 mg PO DAILY metoprolol tartrate 50 mg tablet 50 mg PO BID ondansetron 4 mg tablet,disintegrating See Rx Instructions .ROUTE .COMPLEX Rx Instructions: DISSOLVE ONE TABLET BY MOUTH EVERY 6 HOURS NEEDED FOR NAUSEA AND VOMITING lamotrigine [Lamictal] 100 mg tablet 100 mg PO DAILY hydromorphone 4 mg tablet 4 mg PO BID PRN (Reason: pain) Qty: 7 0RF levothyroxine 50 mcg tablet 50 mcg PO QAM 30 Days Qty: 30 2RF Creon 3,000-9,500- 15,000 unit capsule,delayed release(DR/EC) 1 cap PO TID 30 Days Qty: 30 0RF cholecalciferol (vitamin D3) 1,250 mcg (50,000 unit) capsule 50,000 unit PO Q7D Rx Instructions: gabapentin 300 mg capsule 600 mg PO BID ipratropium-albuterol 0.5 mg-3 mg(2.5 mg base)/3 mL solution for nebulization See Rx Instructions .ROUTE .COMPLEX Rx Instructions: use 1 vial IN NEBULIZER EVERY 4 HOURS NEEDED FOR WHEEZING OR SHORTNESS OF BREATH insulin glargine [Lantus U-100 Insulin] 100 unit/mL solution See Rx Instructions .ROUTE .COMPLEX Rx Instructions: inject 10 units SUBCUTANEOUSLY at breakfast and 40 units AT BEDTIME spironolactone [Aldactone] 100 mg Tablet 100 mg PO DAILY isosorbide mononitrate 60 mg tablet extended release 24 hr 60 mg PO DAILY morphine [MS Contin] 100 mg tablet extended release 100 mg PO Q8H Rx Instructions: max 3per day nifedipine [Procardia XL] 30 mg tablet extended release 24hr 30 mg PO DAILY naloxone [Narcan] 4 mg/actuation spray,non-aerosol 4 mg intranasal Q2M PRN (Reason: opioid overdose) Qty: 2 0RF Rx Instructions: spray 1 dose into ONE nostril; alternate nostrils w each dose until help arrives potassium chloride 20 mEq tablet extended release 20 meq PO DAILY Discharge Orders: Discharge ED (Routine); Ordered 11/22/24 Ordered By: Dayna Burgos Referrals: Francisco Mckinley DO [Primary Care Provider] Patient Instructions: Migraine Headache (ED), Opioid Safety, Pain Management, Patient Portal & Marcelino Instructions Activity Restrictions/Additional Instructions: I spoke with Dr. Ellison who wants you to take Levaquin based on cultures he got from your foot. Thank you for choosing [facility] for your healthcare needs today. You have been screened and evaluated and felt safe for discharge. Health conditions do change or evolve sometimes and as such it is important that you follow up with your Primary Doctor to be re checked, 3-5 days is a general good time frame for follow up. You are always welcome to return to the ED for re assessment if your symptoms are worsening or you have new concerns Print Language: Slovenian Coding Level of Care Code ED Operational Risk Analyst for 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
[2024-11-22 15:48] LABS: Hematocrit 46.4 % (36-47); Hemoglobin 15.80 g/dL (11.27-16.99); Mean Corpuscular HGB Conc 34.1 g/dL (30-55); Mean Corpuscular Hemoglobin 29.2 pg (27-33); Mean Corpuscular Volume 85.8 fl (85-98); Nucleated Red Blood Cells % 0 %; Platelet Count 255 10^3/cmm (157-399); Red Blood Count 5.41 10^6/uL (3.85-5.65); White Blood Count 9.26 10^3/uL (3.29-11.43)
[2024-11-22 16:04] LABS: Alanine Aminotransferase 13 U/L (0-33); Albumin Level 3.4 g/dL (3.5-5.2); Alkaline Phosphatase 177 U/L (35-105); Aspartate Amino Transferase 32 U/L (0-32); Blood Urea Nitrogen 9 mg/dL (6-20); Calcium 10.3 mg/dL (8.5-10.5); Carbon Dioxide 21 mmol/L (22-29); Chloride 97 mmol/L (98-107); Globulin 5.7 g/dL (1.3-4.6); Glucose 169 mg/dL (65-115); Osmolality Calculated 275 mOsm/kg (285-295); Sodium 131 mmol/L (136-145); Total Protein 9.1 g/dL (6.6-8.7)
[2024-11-22 16:05] LABS: Anion Gap 17.5 (5-19); Lactic Sepsis W/Reflex 1.7 mmol/L (0.5-2.2); Potassium 4.5 mmol/L (3.5-5.1)
[2024-11-22] MEDS: metoclopramide 5 mg/mL SDV 2 mL 10 MG IVP (16:35)
[2024-11-22] MEDS: ondansetron 2 mg/ML SDV 2 mL 8 MG IVP (16:35)
[2024-11-22] MEDS: orphenadrine 30 mg/mL Inj 2 mL 60 MG IVP (16:35)
[2024-11-22 16:48] LABS: Respiratory Syncytial Virus Ce NEGATIVE (Negative); SARS-CoV-2 PCR NEGATIVE (Negative)
[2024-11-22 18:09] VITALS: BP 110/70; PULSE 61; O2SAT 93
== END 2024-11-22 18:10 | disposition home or self-care (01) ==
PROVIDERS: Emergency Provider Emergency Medicine; PCP Family Medicine
DX: G43.909 Migraine, unspecified, not intractable, without status migrainosus (principal); L08.9 Local infection of the skin and subcutaneous tissue, unspecified
CPT/HCPCS: 36415; 80053; 83605; 85025; 85651; 86140; 87040; 87637; 96374; 96375; 99284; J1885; J2360; J2405; J2765; J3490; J9999

== ENCOUNTER → 2024-11-27 14:08 | Outpatient (BNVA) | payer MEDICAID, SELFPAY | PROVIDERS: PCP Family Medicine; Visit Provider Podiatrist Foot & Ankle Surgery | DX: S82.851A Displaced trimalleolar fracture of right lower leg, initial encounter for closed fracture (principal); Z91.199 Patient's noncompliance with other medical treatment and regimen due to unspecified reason; X58.XXXA Exposure to other specified factors, initial encounter | CPT/HCPCS: 99214 ==

== ENCOUNTER 2024-11-29 06:13 | Emergency (ER) | payer MEDICAID, SELFPAY ==
[2024-11-29] VITALS (8 sets, daily range): BP systolic 146–210; BP diastolic 79–112; PULSE 81–106; RESP 24; TEMP 36.6; O2SAT 91–99; BMI 30.1
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
--- OUTSIDE RECORDS SUMMARY | 2024-11-29 06:18 | XMS_ITS | Encounter Summary ---
Author Organization [facility] Address [address] [place] [address] Care Team Providers Care Entry Level Project Coordinator Name Role Phone Francisco Mckinley DO Primary Care Provider [phone] Reason for Visit * Reason Comments Information Encounter Details Date Type Department Care Team (Late st Contact Info) Description 09/17/2024 Telephone [facility] Medicine [address] [address] Francisco Mckinley DO [address] [place] [phone] Information Social History Tobacco Use Types [...] any time in the past 12 m [facility], were you homeless or living in a [...] on file 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 Topic: Established Patient Care >> Sep 17, 2024 4:54 PM Natalie Gloria wrote: Is the patient established with a [facility] provider? Yes, select appropriate option in Discharge Facility SmartList Caller Name: Maribell Foreman Callback Number: Telephone Information: Call Notes: Discharge from [facility] ED on 09/15 Patient is High [...] Description 12/17/2024 2:10 PM CDT Office Visit [facility] Medicine [place] [address] [place] [phone] Kacy Lazo FNP [address] [place] [phone] 01/26/2025 8:40 AM SHELL PLATER Office Visit [facility] Gastroenterology- [place] [address] [address] Robert Estrada MD [address] [address] documented as of this encounter Visit Diagnoses Not on filedocumented in this encounter Care Teams Entry Level Project Coordinator Relationship Specialty Start Date End Date Francisco Mckinley DO [address] [place] [phone] PCP - General 06/07/20 documented as of this encounter
--- OUTSIDE RECORDS SUMMARY | 2024-11-29 06:18 | XMS_ITS | Encounter Summary ---
Author Organization [facility] Address [address] [place] [address] Care Team Providers Care Regional Climate Change Analyst Name Role Phone Francisco Mckinley DO Primary Care Provider [phone] Reason for Visit * Reason Comments Information Encounter Details Date Type Department Care Team (Late st Contact Info) Description 07/01/2024 Telephone [facility] Medicine [address] [address] Francisco Mckinley DO [address] [place] [phone] Information Social History Tobacco Use Types [...] any time in the past 12 m [facility], were you homeless or living in a custodial (including now)? 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 Topic: Patient or Caregiver Communication Request >> Jul 01, 2024 11:47 AM Eva Gloria wrote: Patient or Caregiver calling to update Care team on status after a recent visit Caller: Maribell Foreman Patient/Caregiver Callback Number: [phone] Call Notes: patient is not feeling any better and has a few more spots that have popped up on leg documented in this encounter Plan of Treatment Upcoming Encounters Date Type Department Care Team (Late st Contact Info) Description 12/17/2024 2:10 PM CDT Office Visit [facility] [address] [place] [phone] Kacy Lazo FNP [address] [place] [phone] 01/26/2025 8:40 AM PROFESSOR OF ARCHAEOLOGY Office Visit [facility] Gastroenterology- [place] [address] [address] Robert Estrada MD [address] [address] documented as of this encounter Visit Diagnoses Not on filedocumented in this encounter Care Teams Regional Climate Change Analyst Relationship Specialty Start Date End Date Francisco Mckinley DO [address] [place] [phone] PCP - General 06/07/20 documented as of this encounter
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
--- OUTSIDE RECORDS SUMMARY | 2024-11-29 06:18 | XMS_ITS | Encounter Summary ---
Author Organization [facility] Address [address] [facility] [address] [place] [address] Phone Care Team Providers Care Medical Laboratory Technical Officer Name Role Phone Francisco Mckinley DO Primary Care Provider [phone] Encounter Details Date Type Department Care Team (Late st Contact Info) Description 07/01/2021 Orders Only [facility] [address] [place] [address] Cirrhosis, not otherwise specified (HCC); [...] (HCC) documented in this encounter Care Teams Medical Laboratory Technical Officer Relationship Specialty Start Date End Date Francisco Mckinley DO [address] [address] PCP - General Family Medicine 07/01/21 documented as of this encounter
--- OUTSIDE RECORDS SUMMARY | 2024-11-29 06:19 | XMS_ITS | Clinical Summary ---
Author Organization [facility] Address [address] [place] [address] [place] [address] Care Team Providers Care Tassel Maker Name Role Phone Francisco Mckinley DO Primary Care Provider [phone] Social History Tobacco Use Types Packs/Day Years [...] 2024 Insurance Medicaid [place] ([id number]) Care Teams Tassel Maker Relationship Specialty Start Date End Date Francisco Mckinley DO [address] [place] [address] PCP - General Family Medicine 07/01/21
--- OUTSIDE RECORDS SUMMARY | 2024-11-29 06:19 | XMS_ITS | Encounter Summary ---
Author Organization [facility] Address 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 Gender Identity Not on file Sexual Orientation Not on file documented as of this encounter Plan of Treatment Upcoming Encounters Date Type Department Care Team (Late st Contact Info) Description 12/17/2024 2:10 PM CDT Office Visit [facility] Family Medicine [place] [address] [place] [phone] Kacy Lazo FNP [address] [place] [phone] 01/26/2025 8:40 AM DIESEL ENGINE ASSEMBLER Office Visit [facility] Gastroenterology- [place] [address] [address] Robert Estrada MD [address] [address] documented as of this encounter Visit Diagnoses Not on filedocumented in this encounter Additional Health Concerns Assessment Noted Time PHQ-9 Depression Total Score: 3 04/03/19 25 12:00 PM DIESEL ENGINE ASSEMBLER documented as of this encounter Care Teams Cupola Melter Helper Relationship Specialty Start Date End Date Francisco Mckinley DO [address] [place] [phone] PCP - General 06/07/20 documented as of this encounter
--- NOTE | 2024-11-29 06:34 | ECG_ITS ---
[facility] Test Date: 2024-11-29 Pat Name: Maribell Foreman Department: Room: Gender: Female Conference Service Coordinator: : 1975 Requested By: Lane Boles Order Number: [id number] Janett MD: Fabian Cohn M.D. Measurements Intervals [place] Rate: 73 P: 121 ME: 163 QRS: 74 QRSD: 104 T: 60 QT: 393 QTc: 435 Interpretive Statements ELECTRONIC ATRIAL PACEMAKER Atrial paced ventricular sensed rhythm Compared to ECG 09/23/2024 13:26:37 Sinus rhythm no longer present Early repolarization no longer present Electronically Signed On 11-29-2024 20:18:14 CDT by Fabian Cohn M.D. [email or web address]
--- NOTE | 2024-11-29 06:44 | W.ED.GENADLT ---
HPI - General Adult General: Chief complaint: General Medical Stated complaint: withdrawals Time Seen by Provider: 11/29/24 06:17 History of Present Illness: 49-year-old female who presents to the emergency room with complaints of abdominal pain. Patient is thrashing about the room difficulty when to get vitals on the patient because she keeps thrashing around. Patient states the abdominal pain is because she ran out of her narcotic pain medications because someone stole them. She says she has had this for the last 2 days. States the abdominal pain is generalized. No fever sweats chills no medic easier melena hematemesis no dysuria urgency or frequency Associated symptoms: Reports nausea; Deny chest pain, dyspnea, rash or vomiting Related Data Home Medications ?Medication ?Instructions ?Recorded ?Confirmed albuterol sulfate 90 mcg/actuation 2 puff inhalation Q6H PRN 10/19/23 11/29/24 aerosol inhaler (Ventolin HFA) Shortness Of Breath amitriptyline 75 mg tablet 75 mg PO BEDTIME 10/19/23 11/29/24 doxepin 10 mg capsule 10 mg PO BEDTIME PRN Sleep 10/19/23 11/29/24 cholecalciferol (vitamin D3) 1,250 50,000 unit PO Q7D 01/17/24 11/29/24 mcg (50,000 unit) capsule gabapentin 300 mg capsule 600 mg PO BID 01/17/24 11/29/24 insulin glargine 100 unit/mL See Rx Instructions .Route .COMPLEX 09/23/24 11/29/24 subcutaneous solution (Lantus U-100 Insulin) ipratropium 0.5 mg-albuterol 3 mg See Rx Instructions .Route .COMPLEX 09/23/24 11/29/24 (2.5 mg base)/3 mL nebulization soln isosorbide mononitrate 60 mg 60 mg PO DAILY 09/23/24 11/29/24 tablet,extended release 24 hr morphine 100 mg tablet,extended 100 mg PO Q8H 09/23/24 11/29/24 release (MS Contin) nifedipine 30 mg tablet,extended 30 mg PO DAILY 09/23/24 11/29/24 release 24 hr (Procardia XL) spironolactone 100 mg tablet 100 mg PO DAILY 09/23/24 11/29/24 (Aldactone) furosemide 40 mg tablet See Rx Instructions .Route .COMPLEX 10/27/24 11/29/24 lamotrigine 100 mg tablet 100 mg PO DAILY 10/27/24 11/29/24 (Lamictal) metoprolol tartrate 50 mg tablet 50 mg PO BID 10/27/24 11/29/24 ondansetron 4 mg disintegrating See Rx Instructions .Route .COMPLEX 10/27/24 11/29/24 tablet pantoprazole 40 mg tablet,delayed 40 mg PO DAILY 10/27/24 11/29/24 release potassium chloride 20 mEq 20 meq PO DAILY 11/22/24 11/29/24 tablet,extended release tizanidine 4 mg tablet 4 mg PO Q6H PRN Spasms 11/29/24 11/29/24 Previous Rx's ?Medication ?Instructions ?Recorded levothyroxine 50 mcg tablet 50 mcg PO QAM 30 days #30 tabs 08/19/23 [id number]-[id number] 1 cap PO TID 30 days #30 caps 08/19/23 3,000-9,500-15,000 unit capsule, delayed rel (Creon) naloxone 4 mg/actuation nasal 4 mg intranasal Q2M PRN opioid 09/24/24 spray (Narcan) overdose #2 ea Knee Scooter #1 ea 10/14/24 tizanidine 6 mg capsule See Rx Instructions .Route 10/21/24 .COMPLEX #21 caps hydromorphone 4 mg tablet 4 mg PO BID PRN pain #7 tabs 10/30/24 doxycycline hyclate 100 mg capsule 100 mg PO BID 10 days #20 caps 11/20/24 promethazine 25 mg tablet 25 mg PO Q6H PRN nausea and 11/29/24 vomiting #20 tabs Allergies Allergy/AdvReac Type Severity Reaction Status Date / Time codeine Allergy Unknown Unknown Verified 11/27/24 14:05 aspirin Allergy ALGY-Hives Verified 11/27/24 14:05 diphenhydramine (From Allergy ADR-Muscle Verified 11/27/24 14:05 Benadryl) Pain Sulfa (Sulfonamide Allergy ALGY-Swell Verified 11/27/24 14:05 Antibiotics) Lip/Tongue/Throat Review of Systems Const: Denies: fever(s) or chills Card: Denies: chest pain Resp: Denies: dyspnea GI: Reports: abdominal pain and nausea; Denies: vomiting, hematemesis, coffee ground emesis, hematochezia or melena : Denies: dysuria, urinary frequency or urinary urgency Musc: Denies: neck pain or back pain Skin/Breast: Denies: rash PFSH ED PFSH: Medical History Hypokalemia roasterman (current) use of opiate analgesic Pain management contract signed Metabolic encephalopathy SSS (sick sinus syndrome) Presence of permanent cardiac pacemaker Seizure disorder Tobacco dependency Hypothyroidism Accidental fentanyl overdose Overdose Cardiac arrest COPD (chronic obstructive pulmonary disease) Chronically on 3 L of oxygen Smoker Thrombocytopenia Bilateral pulmonary embolism Hepatitis B Pulmonary embolism Nicotine dependence, cigarettes, with unspecified nicotine-induced disorders Chronic hepatitis B Chronic abdominal pain Chronic hip pain Leg cramps Stomach cancer Pelvic inflammatory disease Diabetes mellitus Hypertension Encephalopathy Cirrhosis Gastroesophageal reflux GI bleeding Surgical History H/O right hemicolectomy History of right hemicolectomy H/O tubal ligation History of laparotomy History of hysterectomy Family History Mother Diabetes Father CAD (coronary artery disease) Other Cancer Social History Smoking and tobacco/nicotine status: former use of tobacco/nicotine (quit 2022) Quit status (tobacco/nicotine): has quit using Year quit tobacco: 2020 Former quit date comment: 2ppd x 26 year Hx Alcohol intake: never Substance/Drug Use: never Physical Exam Const: GENERAL APPEARANCE: cooperative ORIENTATION/CONSCIOUSNESS: Yes awake HENMT: COMMON NORMALS: normocephalic, atraumatic and hearing grossly normal bilaterally HEAD & SCALP: normocephalic and atraumatic Resp: COMMON NORMALS: normal respiratory effort, No retractions, No use of accessory muscles and clear to auscultation bilaterally AUSCULTATION: clear to auscultation bilaterally Cardio: COMMON NORMALS: regular rate, regular rhythm and No murmurs present (Cardio) RATE: regular rate RHYTHM: regular rhythm GI: COMMON NORMALS: Soft to palpation and No hepatosplenomegaly present AUSCULTATION: Yes normoactive bowel sounds PALPATION: Yes Soft to palpation, No Tenderness to palpation present (GI), No Guarding due to palpation present (GI) and Yes No hepatosplenomegaly present Extremity: COMMON NORMALS: normal to inspection, capillary refill normal, no clubbing, cyanosis or edema, no calf tenderness and no pedal edema Skin: COMMON NORMALS: no rashes or lesions noted GENERAL SKIN EXAM: no rashes or lesions noted Course Vital Signs: Vital signs: Vital Signs Temperature 98 F 11/29/24 06:17 Pulse Rate 98 11/29/24 10:42 Respiratory Rate 24 H 11/29/24 06:52 Blood Pressure 158/98 11/29/24 10:42 Pulse Oximetry 99 11/29/24 10:42 Oxygen Delivery Me thod Room Air 11/29/24 08:36 MDM - General Adult Medical Decision Making Patient given clonidine IV fluids as well as given Haldol and Ativan. She had improvement of her symptoms is not requesting to go. Patient advised she could return to the emergency room if she has further problems. Lab Data 11/29/24 06:22 11/29/24 06:22 Laboratory Results WBC 9.96 10^3/uL (3.29-11.43) 11/29/24 06:22 RBC 5.01 10^6/uL (3.85-5.65) 11/29/24 06:22 Hgb 14.50 g/dL (11.27-16.99) 11/29/24 06:22 Hct 42.5 % (36-47) 11/29/24 06:22 MCV 84.8 fl (85-98) L 11/29/24 06:22 MCH 28.9 pg (27-33) 11/29/24 06:22 MCHC 34.1 g/dL (30-55) 11/29/24 06:22 RDW 13.2 % (12.1-15.1) 11/29/24 06:22 Plt Count 262 10^3/cmm (157-399) 11/29/24 06:22 MPV 10.1 fL (7.4-10.4) 11/29/24 06:22 Neut % (Auto) 81.9 % 11/29/24 06:22 Lymph % (Auto) 8.0 % 11/29/24 06:22 Bland % (Auto) 9.3 % 11/29/24 06:22 Eos % (Auto) 0.0 % 11/29/24 06:22 Baso % (Auto) 0.4 % 11/29/24 06:22 Neut # (Auto) 8.15 10^3/uL (1.8-7.7) H 11/29/24 06:22 Lymph # (Auto) 0.8 10^3/uL (0.8-4.8) 11/29/24 06:22 Bland # (Auto) 0.9 10^3/uL (0.2-0.9) 11/29/24 06:22 Eos # (Auto) 0.0 10^3/uL (0.0-0.8) 11/29/24 06:22 Baso # (Auto) 0.0 10^3/uL (0.0-0.1) 11/29/24 06:22 Nucleated RBC % (auto) 0 % 11/29/24 06:22 Nucleated RBCs # 0.0 /100WBC 11/29/24 06:22 Sodium 136 mmol/L (136-145) 11/29/24 06:22 Potassium 3.3 mmol/L (3.5-5.1) L 11/29/24 06:22 Chloride 97 mmol/L (98-107) L 11/29/24 06:22 Carbon Dioxide 19 mmol/L (22-29) L 11/29/24 06:22 Anion Gap 23.3 (5-19) H 11/29/24 06:22 BUN 10 mg/dL (6-20) 11/29/24 06:22 Creatinine 0.8 mg/dL (0.5-0.9) 11/29/24 06:22 GFR Calculation 75.9 mL/min (90-130) L 11/29/24 06:22 Glucose 128 mg/dL (65-115) H 11/29/24 06:22 Calculated Osmolality 283 mOsm/kg (285-295) L 11/29/24 06:22 Calcium 10.2 mg/dL (8.5-10.5) 11/29/24 06:22 Total Bilirubin 1.1 mg/dL (0.15-1.2) 11/29/24 06:22 AST 32 U/L (0-32) 11/29/24 06:22 ALT 17 U/L (0-33) 11/29/24 06:22 Alkaline Phosphatase 140 U/L (35-105) H 11/29/24 06:22 Total Protein 9.4 g/dL (6.6-8.7) H 11/29/24 06:22 Albumin 4.0 g/dL (3.5-5.2) 11/29/24 06:22 Globulin 5.4 g/dL (1.3-4.6) H 11/29/24 06:22 Urine Color Dark yellow (Yellow) A 11/29/24 07:44 Urine Appearance Cloudy (CLEAR) A 11/29/24 07:44 Urine pH 6.5 (5-7) 11/29/24 07:44 Ur Specific [place] 1.021 (1.005-1.030) 11/29/24 07:44 Urine Protein 1+ (Negative) A 11/29/24 07:44 Urine Glucose (UA) Negative (Normal) 11/29/24 07:44 Urine Ketones 1+ (Negative) H 11/29/24 07:44 Urine Blood Negative (Negative) 11/29/24 07:44 Urine Nitrate Negative (Negative) 11/29/24 07:44 Urine Bilirubin 1+ (Negative) H 11/29/24 07:44 Urine Urobilinogen 4.0 mg/dL (Negative) H 11/29/24 07:44 Ur Leukocyte Esterase Negative (Negative) 11/29/24 07:44 Urine RBC 3-5 /hpf (0-2) 11/29/24 07:44 Urine WBC 0-5 /hpf (0-5) 11/29/24 07:44 Ur Squamous Epith Cells 0-5 /hpf (0-5) 11/29/24 07:44 Amorphous Sediment Not Reportable 11/29/24 07:44 Urine Bacteria None seen /hpf (NONE) 11/29/24 07:44 Hyaline Casts 13.22 /lpf 11/29/24 07:44 No radiology studies performed this visit Discharge Plan Discharge Patient Disposition: Home Clinical Impression: Chronic narcotic use, Hypokalemia Condition: Stable Prescriptions: New promethazine 25 mg tablet 25 mg PO Q6H PRN (Reason: nausea and vomiting) Qty: 20 0RF No Action doxycycline hyclate 100 mg capsule 100 mg PO BID 10 Days Qty: 20 0RF (DME) Knee Scooter See Rx Instructions .Route .MEDSUPPLY Qty: 1 0RF Rx Instructions: As directed by Emanuel tizanidine 6 mg capsule See Rx Instructions .ROUTE .COMPLEX Qty: 21 0RF Dose Instruction: take 1 capsule BY MOUTH EVERY 8 HOURS NEEDED FOR MUSCLE SPASTICITY Rx Instructions: take 1 capsule BY MOUTH EVERY 8 HOURS NEEDED FOR MUSCLE SPASTICITY amitriptyline 75 mg tablet 75 mg PO BEDTIME doxepin 10 mg capsule 10 mg PO BEDTIME PRN (Reason: Sleep) albuterol sulfate [Ventolin HFA] 90 mcg/actuation HFA aerosol inhaler 2 puff INHALATION Q6H PRN (Reason: Shortness Of Breath) furosemide 40 mg tablet See Rx Instructions .ROUTE .COMPLEX Rx Instructions: TAKE 3 TABLETS BY MOUTH EVERY MORNING AND TWO TABLETS IN THE AFTERNOON (WEIGH DAILY) pantoprazole 40 mg tablet,delayed release (DR/EC) 40 mg PO DAILY metoprolol tartrate 50 mg tablet 50 mg PO BID ondansetron 4 mg tablet,disintegrating See Rx Instructions .ROUTE .COMPLEX Rx Instructions: DISSOLVE ONE TABLET BY MOUTH EVERY 6 HOURS NEEDED FOR NAUSEA AND VOMITING lamotrigine [Lamictal] 100 mg tablet 100 mg PO DAILY hydromorphone 4 mg tablet 4 mg PO BID PRN (Reason: pain) Qty: 7 0RF levothyroxine 50 mcg tablet 50 mcg PO QAM 30 Days Qty: 30 2RF Creon 3,000-9,500- 15,000 unit capsule,delayed release(DR/EC) 1 cap PO TID 30 Days Qty: 30 0RF cholecalciferol (vitamin D3) 1,250 mcg (50,000 unit) capsule 50,000 unit PO Q7D Rx Instructions: gabapentin 300 mg capsule 600 mg PO BID ipratropium-albuterol 0.5 mg-3 mg(2.5 mg base)/3 mL solution for nebulization See Rx Instructions .ROUTE .COMPLEX Rx Instructions: use 1 vial IN NEBULIZER EVERY 4 HOURS NEEDED FOR WHEEZING OR SHORTNESS OF BREATH insulin glargine [Lantus U-100 Insulin] 100 unit/mL solution See Rx Instructions .ROUTE .COMPLEX Rx Instructions: inject 10 units SUBCUTANEOUSLY at breakfast and 40 units AT BEDTIME spironolactone [Aldactone] 100 mg Tablet 100 mg PO DAILY isosorbide mononitrate 60 mg tablet extended release 24 hr 60 mg PO DAILY morphine [MS Contin] 100 mg tablet extended release 100 mg PO Q8H Rx Instructions: max 3per day nifedipine [Procardia XL] 30 mg tablet extended release 24hr 30 mg PO DAILY naloxone [Narcan] 4 mg/actuation spray,non-aerosol 4 mg intranasal Q2M PRN (Reason: opioid overdose) Qty: 2 0RF Rx Instructions: spray 1 dose into ONE nostril; alternate nostrils w each dose until help arrives potassium chloride 20 mEq tablet extended release 20 meq PO DAILY tizanidine 4 mg tablet 4 mg PO Q6H PRN (Reason: Spasms) Discharge Orders: Discharge ED (Routine); Ordered 11/29/24 Ordered By: Lane Gaffney Referrals: Francisco Mckinley DO [Primary Care Provider] Discharge Diet: Clear Liquid Discharge Activity: Increase activity as tolerated Patient Instructions: Opioid Safety, Pain Management, Patient Portal & Marcelino Instructions Activity Restrictions/Additional Instructions: Thank you for choosing [facility] for your healthcare needs today. It is very important that you follow up as instructed or that you return to the Emergency Department should you have concerns or if your condition changes or worsens in any way. Emergency department visits are focused on emergent conditions, in some cases you may require further evaluation on an outpatient basis. You are seen in the emergency room with complaints of withdraws because she does not have your cardiac medications. You were also noted to have low potassium level. You are given medications to manage her symptoms in the emergency room. Your symptoms improved and you asked to be discharged. Will discharge you home with promethazine to use as needed. Clear liquid diet for the next 24 to 48 hours advance as tolerated follow-up with your primary care physician. Monitor your blood sugars closely. (Please note that included in your discharge packet is information concerning opioid safety and pain management. This information is given to all patients were discharged from the ER regardless of their discharge diagnosis or the medicines they usually take or are prescribed.) Print Language: Palestinian Coding Level of Care Code ED Industrial Accountant for 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
[2024-11-29 06:45] LABS: Hematocrit 42.5 % (36-47); Hemoglobin 14.50 g/dL (11.27-16.99); Mean Corpuscular HGB Conc 34.1 g/dL (30-55); Mean Corpuscular Hemoglobin 28.9 pg (27-33); Mean Corpuscular Volume 84.8 fl (85-98); Nucleated Red Blood Cells % 0 %; Platelet Count 262 10^3/cmm (157-399); Red Blood Count 5.01 10^6/uL (3.85-5.65); White Blood Count 9.96 10^3/uL (3.29-11.43)
[2024-11-29] MEDS: LORazepam 1 MG/0.5 ML injection 2 MG IVP (06:50)
[2024-11-29] MEDS: haloperidol inj 5 mg/mL INJ 1 mL IVP ×2 (06:50→07:11)
[2024-11-29 07:10] LABS: Alanine Aminotransferase 17 U/L (0-33); Albumin Level 4.0 g/dL (3.5-5.2); Alkaline Phosphatase 140 U/L (35-105); Anion Gap 23.3 (5-19); Aspartate Amino Transferase 32 U/L (0-32); Blood Urea Nitrogen 10 mg/dL (6-20); Calcium 10.2 mg/dL (8.5-10.5); Carbon Dioxide 19 mmol/L (22-29); Chloride 97 mmol/L (98-107); Creatinine Clr Calc Pharmacy 105.1896; Globulin 5.4 g/dL (1.3-4.6); Glucose 128 mg/dL (65-115); Osmolality Calculated 283 mOsm/kg (285-295); Potassium 3.3 mmol/L (3.5-5.1); Sodium 136 mmol/L (136-145); Total Protein 9.4 g/dL (6.6-8.7)
--- NOTE | 2024-11-29 07:16 | PC.NURSE ---
PT CONTINUOUSLY MOVING AROUND IN BED. PT REFUSING TO LAY DOWN AND HOLD STILL. DR. ZAMORA NOTIFIED.
--- NOTE | 2024-11-29 07:37 | PC.NURSE ---
IV DRESSING CHANGED AND REPOSITIONED. PT CONTINUING TO MOVE AROUND IN BED.
--- NOTE | 2024-11-29 08:01 | PC.NURSE ---
UNABLE TO OBTAIN ACCURATE VITAL SIGNS DUE TO PT CONTINUALLY THRASHING AROUND IN BED.
[2024-11-29 08:10] LABS: Glucose Urine UA Negative (Normal); Nitrate Urine Negative (Negative); Specific Gravity, Urine 1.021 (1.005-1.030)
[2024-11-29 08:12] LABS: Add Urine Microscopic? YES
[2024-11-29 08:25] LABS: UA Slide Review UA Slide Review Perf
[2024-11-29] MEDS: metoclopramide 5 mg/mL SDV 2 mL 10 MG IVP (08:34)
--- NOTE | 2024-11-29 08:43 | PC.PHAR ---
Patient states she took her medications two days ago and thinks she took her pain medications yesterday ,but then mumbled a bunch of things i could not understand.
[2024-11-29] MEDS: pantoprazole 40 mg SDV 80 MG IVP (09:12)
--- NOTE | 2024-11-29 09:14 | PC.NURSE ---
PT HAD BOWEL MOVEMENT IN BED. THIS NURSE AND ANIMATION ARTIST ASSISTED PT TO BEDSIDE COMMODE TO GET CLEANED UP. BED LINENS CHANGED. PT CLEANED UP AND PLACED IN CLEAN BRIEF. PT WAS ASKED IF SHE KNEW SHE WAS HAVING A BOWEL MOVEMENT. PT STATED SHE KNEW. THIS NURSE EDUCATED PT THAT SHE NEEDED TO LET THIS NURSE KNOW WHEN SHE NEEDED TO GO TO THE BATHROOM. PT STATED I DON'T FEEL GOOD THOUGH. THIS NURSE INSTRUCTED PT TO STILL LET SOMEONE KNOW SO SHE DID NOT SOIL THE BED. PT IS ALERT AND ORIENTED X4 AND LIVES AT HOME BY HERSELF.
--- NOTE | 2024-11-29 10:28 | PC.NURSE ---
ORACLE FUSION CONSULTANT NOTIFIED THIS NURSE THAT PT PULLED OUT HER IV.
[2024-11-29] MEDS: potassium chloride oral liq 20 mEq/15 mL UDC PO (10:41)
== END 2024-11-29 10:45 | disposition home or self-care (01) ==
PROVIDERS: Emergency Provider Family Medicine; PCP Family Medicine
DX: F11.20 Opioid dependence, uncomplicated (principal); E87.6 Hypokalemia; Z79.4 Long term (current) use of insulin; Z87.891 Personal history of nicotine dependence; J44.9 Chronic obstructive pulmonary disease, unspecified; E11.9 Type 2 diabetes mellitus without complications; I10 Essential (primary) hypertension
CPT/HCPCS: 36415; 80053; 81001; 85025; 93005; 96361; 96374; 96375; 99284; J1630; J2060; J2470; J2765; J7030; J9999

== ENCOUNTER 2024-11-30 13:46 | Emergency (ER) | payer MEDICAID, SELFPAY ==
[2024-11-30 13:51] VITALS: BP 139/91; PULSE 75; RESP 19; TEMP 36.9; O2SAT 97
--- OUTSIDE RECORDS SUMMARY | 2024-11-30 13:53 | XMS_ITS | Encounter Summary ---
Author Organization [facility] Address [address] [place] [address] Care Team Providers Care Surveillance Technician Name Role Phone Francisco Mckinley DO Primary Care Provider [phone] Reason for Visit * Reason Comments Information Encounter Details Date Type Department Care Team (Late st Contact Info) Description 09/17/2024 Telephone [facility] [address] [phone] Francisco Mckinley DO [address] [place] [phone] Information Social History Tobacco Use Types [...] in the past 12 m [facility], were you homeless or living in a [...] on file Legal Sex Female 2:09 PM JIRA DEVELOPER Gender Identity Not on file Sexual Orientation Not on file documented as of this encounter Miscellaneous Notes * Telephone Encounter - Arminda Hagen - 09/18/2024 9:50 AM CDT Request completed. Due to Holiday and extended weekend, Dr. Mckinley called to ER, the date/time selected is 1st available for HFU * Telephone Encounter - Natalie Zamudio - 09/17/2024 4:56 PM CDT Copied from [facility] #[id number]. Topic: Established Patient Care >> Sep 17, 2024 4:54 PM Natalie Gloria wrote: [facility] Yes, select appropriate option in Discharge Facility SmartList Caller Name: Maribell Foreman Callback Number: Telephone Information: Call Notes: Discharge from [facility] ED on 09/15 Patient is High Risk [...] CDT Office Visit [facility] [place] [address] [place] [phone] Kacy Lazo FNP [address] [place] [phone] 01/26/2025 8:40 AM JIRA DEVELOPER Office Visit [facility]- [place] [address] [phone] Robert Estrada MD [address] [phone] documented as of this encounter Visit Diagnoses Not on filedocumented in this encounter Care Teams Surveillance Technician Relationship Specialty Start Date End Date Francisco Mckinley DO [address] [place] [phone] PCP - General 06/07/20 documented as of this encounter
--- OUTSIDE RECORDS SUMMARY | 2024-11-30 13:53 | XMS_ITS | Encounter Summary ---
Author Organization [facility] Address [address] [place] [address] Care Team Providers Care Visual Display Associate Name Role Phone Francisco Mckinley DO Primary Care Provider Encounter Details Date Type Department Care Team (Late st Contact Info) Description 04/04/2024 Results Follow-Up [facility] [address] [place] [address] Meliton Mckinley MD [address] [place] [address] POC URINALYSIS DIPSTICK AUTOMATED Social [...] any time in the past [address] [facility], were you homeless or living in a ch[facility] (including now)? Yes 02/01/2024 Feeling Safe Answer Date Recorded Are you in a relationship wi th someone who hurts you emotionally and/or physically? No 10/03/2022 Comments No Sex and Gender Information Value Date Recorded Sex Assigned at Not on file Legal Sex Female 2:09 PM FIREBRICK LAYER HELPER Gender Identity Not on file Sexual Orientation Not on file documented as of this encounter Plan of Treatment Upcoming Encounters Date Type Department Care Team (Late st Contact Info) Description 12/17/2024 2:10 PM CDT Office Visit [facility] Family Medicine [place] [address] [place] [phone] Kacy Lazo FNP [address] [place] [phone] 01/26/2025 8:40 AM FIREBRICK LAYER HELPER Office Visit [facility] Gastroenterology- [place] [address] [phone] Robert Estrada MD [address] [phone] documented as of this encounter Visit Diagnoses Not on filedocumented in this encounter Additional Health Concerns Assessment Noted Time PHQ-9 Depression Total Score: 3 04/03/19 25 12:00 PM FIREBRICK LAYER HELPER documented as of this encounter Care Teams Visual Display Associate Relationship Specialty Start Date End Date Francisco Mckinley DO [address] [place] [phone] PCP - General 06/07/20 documented as of this encounter
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
--- OUTSIDE RECORDS SUMMARY | 2024-11-30 13:53 | XMS_ITS | Encounter Summary ---
Author Organization [facility] Address [address] [place] [address] Care Team Providers Care Correction Officer [place] Name Role Phone Francisco Mckinley DO Primary Care Provider [phone] Reason for Visit * Reason Comments Information Encounter Details Date Type Department Care Team (Late st Contact Info) Description 07/01/2024 Telephone [facility] Medicine [address] [phone] Francisco Mckinley DO [address] [place] [phone] Information Social History Tobacco Use Types [...] time in the past 12 m [facility], were you homeless or living [...] on file Legal Sex Female 2:09 PM CONSULTING SERVICES ASSOCIATE Gender Identity Not on file Sexual Orientation [...] - 07/01/2024 11:50 AM CDT Copied from [facility] #[id number]. Topic: Patient or Caregiver Communication Request >> Jul 01, 2024 11:47 AM Eva Gloria wrote: Patient or Caregiver calling to update Care team on status after a recent visit Caller: Maribell Foreman Patient/Caregiver Callback Number: [phone] Call Notes: patient is not feeling any better and has a few more spots that have popped up on leg documented in this encounter Plan of Treatment Upcoming Encounters Date Type Department Care Team (Late st Contact Info) Description 12/17/2024 2:10 PM CDT Office Visit [facility] [address] [place] [phone] Kacy Lazo FNP [address] [place] [phone] 01/26/2025 8:40 AM CONSULTING SERVICES ASSOCIATE Office Visit [facility] [place] Gastro[facility]ology- [place] [address] [address] Robert Estrada MD [address] [address] documented as of this encounter Visit Diagnoses Not on filedocumented in this encounter Care Teams Correction Officer [place] [facility] Relationship Specialty Start Date End Date Francisco Mckinley DO [address] [place] [phone] PCP - General 06/07/20 documented as of this encounter
--- OUTSIDE RECORDS SUMMARY | 2024-11-30 13:53 | XMS_ITS | Encounter Summary ---
Author Organization [facility] Address [address] [facility] [address] [place] [address] Phone Care Team Providers Care Heating And Air Conditioning Mechanic Name Role Phone Francisco Mckinley DO Primary Care Provider [phone] Encounter Details Date Type Department Care Team (Late st Contact Info) Description 07/01/2021 Orders Only [facility] [address] [place] [address] Cirrhosis, not otherwise specified (HCC); [...] (HCC) documented in this encounter Care Teams Heating And Air Conditioning Mechanic Relationship Specialty Start Date End Date Francisco Mckinley DO [address], [place] [address] PCP - General Family Medicine 07/01/21 documented as of this encounter
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
--- OUTSIDE RECORDS SUMMARY | 2024-11-30 13:53 | XMS_ITS | Clinical Summary ---
Author Organization [facility] Address [address] [place] [address] [place] [address] Care Team Providers Care Fish Smoker Name Role Phone Francisco Mckinley DO Primary Care Provider [phone] Social History Tobacco Use Types Packs/Day Years [...] 2024 Insurance Medicaid [place] ([id number]) Care Teams Fish Smoker Relationship Specialty Start Date End Date Francisco Mckinley DO [address] [place] [address] PCP - General Family Medicine 07/01/21
[2024-11-30 14:29] VITALS: BP 129/86; O2SAT 96
--- NOTE | 2024-11-30 17:20 | W.ED.EXTPRO ---
HPI - Extremity Problem General: Chief complaint: Extremity Injury, Lower Stated complaint: right leg pain Time Seen by Provider: 11/30/24 13:47 Source: patient Mode of arrival: EMS Limitations: no limitations History of Present Illness: Patient is a 49-year-old female who presented to the emergency department after a fall just prior to arrival. States that she fell and hit her head, has pain in her right foot, where she has a cast in place and has a history of previous foot infections. She has multiple prior visits here to the emergency department, sees Dr. Ellison for closed trimalleolar fracture. Was concerned of her cast getting wet with water, and reporting severe pain. Vitals are stable on arrival. No fever, did not lose consciousness after hitting head. No focal neurological deficit. Associated symptoms: Deny chest pain, fever(s) or rash Related Data Home Medications ?Medication ?Instructions ?Recorded ?Confirmed albuterol sulfate 90 mcg/actuation 2 puff inhalation Q6H PRN 10/19/23 11/29/24 aerosol inhaler (Ventolin HFA) Shortness Of Breath amitriptyline 75 mg tablet 75 mg PO BEDTIME 10/19/23 11/29/24 doxepin 10 mg capsule 10 mg PO BEDTIME PRN Sleep 10/19/23 11/29/24 cholecalciferol (vitamin D3) 1,250 50,000 unit PO Q7D 01/17/24 11/29/24 mcg (50,000 unit) capsule gabapentin 300 mg capsule 600 mg PO BID 01/17/24 11/29/24 insulin glargine 100 unit/mL See Rx Instructions .Route .COMPLEX 09/23/24 11/29/24 subcutaneous solution (Lantus U-100 Insulin) ipratropium 0.5 mg-albuterol 3 mg See Rx Instructions .Route .COMPLEX 09/23/24 11/29/24 (2.5 mg base)/3 mL nebulization soln isosorbide mononitrate 60 mg 60 mg PO DAILY 09/23/24 11/29/24 tablet,extended release 24 hr morphine 100 mg tablet,extended 100 mg PO Q8H 09/23/24 11/29/24 release (MS Contin) nifedipine 30 mg tablet,extended 30 mg PO DAILY 09/23/24 11/29/24 release 24 hr (Procardia XL) spironolactone 100 mg tablet 100 mg PO DAILY 09/23/24 11/29/24 (Aldactone) furosemide 40 mg tablet See Rx Instructions .Route .COMPLEX 10/27/24 11/29/24 lamotrigine 100 mg tablet 100 mg PO DAILY 10/27/24 11/29/24 (Lamictal) metoprolol tartrate 50 mg tablet 50 mg PO BID 10/27/24 11/29/24 ondansetron 4 mg disintegrating See Rx Instructions .Route .COMPLEX 10/27/24 11/29/24 tablet pantoprazole 40 mg tablet,delayed 40 mg PO DAILY 10/27/24 11/29/24 release potassium chloride 20 mEq 20 meq PO DAILY 11/22/24 11/29/24 tablet,extended release tizanidine 4 mg tablet 4 mg PO Q6H PRN Spasms 11/29/24 11/29/24 Previous Rx's ?Medication ?Instructions ?Recorded levothyroxine 50 mcg tablet 50 mcg PO QAM 30 days #30 tabs 08/19/23 [id number]-[id number] 1 cap PO TID 30 days #30 caps 08/19/23 3,000-9,500-15,000 unit capsule, delayed rel (Creon) naloxone 4 mg/actuation nasal 4 mg intranasal Q2M PRN opioid 09/24/24 spray (Narcan) overdose #2 ea Knee Scooter #1 ea 10/14/24 tizanidine 6 mg capsule See Rx Instructions .Route 10/21/24 .COMPLEX #21 caps hydromorphone 4 mg tablet 4 mg PO BID PRN pain #7 tabs 10/30/24 doxycycline hyclate 100 mg capsule 100 mg PO BID 10 days #20 caps 11/20/24 promethazine 25 mg tablet 25 mg PO Q6H PRN nausea and 11/29/24 vomiting #20 tabs Allergies Allergy/AdvReac Type Severity Reaction Status Date / Time codeine Allergy Unknown Unknown Verified 11/27/24 14:05 aspirin Allergy ALGY-Hives Verified 11/27/24 14:05 diphenhydramine (From Allergy ADR-Muscle Verified 11/27/24 14:05 Benadryl) Pain Sulfa (Sulfonamide Allergy ALGY-Swell Verified 11/27/24 14:05 Antibiotics) Lip/Tongue/Throat Review of Systems General: Reports: 10 or more systems reviewed and unremarkable except in HPI and below Const: Reports: other (Reports fall/hit head); Denies: fever(s), chills or fatigue Eyes: Denies: change in vision ENMT: Denies: throat pain, ear or mastoid pain or nasal discharge Card: Denies: chest pain, palpitations, swelling of feet/ankles or lightheadedness Resp: Denies: dyspnea, productive cough or wheezing GI: Denies: abdominal pain, nausea, vomiting, diarrhea or constipation : Denies: flank pain, difficulty voiding, dysuria or urinary frequency Musc: Reports: extremity pain (Right foot); Denies: neck pain, back pain or joint pain Skin/Breast: Denies: rash Neuro: Denies: headache(s), numbness in extremities or weakness in extremities PFSH ED PFSH: Medical History Hypokalemia jail (current) use of opiate analgesic Pain management contract signed Metabolic encephalopathy SSS (sick sinus syndrome) Presence of permanent cardiac pacemaker Seizure disorder Tobacco dependency Hypothyroidism Accidental fentanyl overdose Overdose Cardiac arrest COPD (chronic obstructive pulmonary disease) Chronically on 3 L of oxygen Smoker Thrombocytopenia Bilateral pulmonary embolism Hepatitis B Pulmonary embolism Nicotine dependence, cigarettes, with unspecified nicotine-induced disorders Chronic hepatitis B Chronic abdominal pain Chronic hip pain Leg cramps Stomach cancer Pelvic inflammatory disease Diabetes mellitus Hypertension Encephalopathy Cirrhosis Gastroesophageal reflux GI bleeding Surgical History H/O right hemicolectomy History of right hemicolectomy H/O tubal ligation History of laparotomy History of hysterectomy Family History Mother Diabetes Father CAD (coronary artery disease) Other Cancer Social History Smoking and tobacco/nicotine status: former use of tobacco/nicotine (quit 2022) Quit status (tobacco/nicotine): has quit using Year quit tobacco: 2020 Former quit date comment: 2ppd x 26 year Hx Alcohol intake: never Substance/Drug Use: never Physical Exam Const: COMMON NORMALS: no acute distress GENERAL APPEARANCE: cooperative and comfortable ORIENTATION/CONSCIOUSNESS: Yes awake HENMT: COMMON NORMALS: normocephalic and atraumatic HEAD & SCALP: normocephalic and atraumatic Eye: COMMON NORMALS: EOMs intact bilaterally and conjunctivae normal CONJUNCTIVA: Yes conjunctivae normal Neck/C-Spine: COMMON NORMALS: full ROM Resp: COMMON NORMALS: normal respiratory effort, No retractions and No use of accessory muscles Back/Pelvis: COMMON NORMALS: thoraco-lumbar ROM normal Extremity: COMMON NORMALS: full ROM and no joint enlargement NARRATIVE EXTREMITY EXAM: Cast to right foot Neuro: COMMON NORMALS: moves all extremities, no focal motor deficits and no sensory deficits noted Skin: COMMON NORMALS: no rashes or lesions noted GENERAL SKIN EXAM: no rashes or lesions noted Course Vital Signs: Vital signs: Vital Signs Temperature 98.5 F 11/30/24 13:51 Pulse Rate 75 11/30/24 13:51 Respiratory Rate 19 H 11/30/24 13:51 Blood Pressure 129/86 11/30/24 14:29 Pulse Oximetry 96 11/30/24 14:29 Oxygen Delivery Me thod Room Air 11/30/24 14:29 MDM - Extremity (Nontraumatic) Medical Decision Making Patient leaves AGAINST MEDICAL ADVICE before any further action can be done, as she was tired of waiting. We informed her that she needed to be patient with us but she states that she would rather just go home. No radiology studies performed this visit Discharge Plan Discharge Patient Disposition: Left Against Medical Advice Clinical Impression: Left against medical advice Prescriptions: No Action doxycycline hyclate 100 mg capsule 100 mg PO BID 10 Days Qty: 20 0RF (DME) Knee Scooter See Rx Instructions .Route .MEDSUPPLY Qty: 1 0RF Rx Instructions: As directed by Emanuel tizanidine 6 mg capsule See Rx Instructions .ROUTE .COMPLEX Qty: 21 0RF Dose Instruction: take 1 capsule BY MOUTH EVERY 8 HOURS NEEDED FOR MUSCLE SPASTICITY Rx Instructions: take 1 capsule BY MOUTH EVERY 8 HOURS NEEDED FOR MUSCLE SPASTICITY amitriptyline 75 mg tablet 75 mg PO BEDTIME doxepin 10 mg capsule 10 mg PO BEDTIME PRN (Reason: Sleep) albuterol sulfate [Ventolin HFA] 90 mcg/actuation HFA aerosol inhaler 2 puff INHALATION Q6H PRN (Reason: Shortness Of Breath) furosemide 40 mg tablet See Rx Instructions .ROUTE .COMPLEX Rx Instructions: TAKE 3 TABLETS BY MOUTH EVERY MORNING AND TWO TABLETS IN THE AFTERNOON (WEIGH DAILY) pantoprazole 40 mg tablet,delayed release (DR/EC) 40 mg PO DAILY metoprolol tartrate 50 mg tablet 50 mg PO BID ondansetron 4 mg tablet,disintegrating See Rx Instructions .ROUTE .COMPLEX Rx Instructions: DISSOLVE ONE TABLET BY MOUTH EVERY 6 HOURS NEEDED FOR NAUSEA AND VOMITING lamotrigine [Lamictal] 100 mg tablet 100 mg PO DAILY hydromorphone 4 mg tablet 4 mg PO BID PRN (Reason: pain) Qty: 7 0RF levothyroxine 50 mcg tablet 50 mcg PO QAM 30 Days Qty: 30 2RF Creon 3,000-9,500- 15,000 unit capsule,delayed release(DR/EC) 1 cap PO TID 30 Days Qty: 30 0RF cholecalciferol (vitamin D3) 1,250 mcg (50,000 unit) capsule 50,000 unit PO Q7D Rx Instructions: gabapentin 300 mg capsule 600 mg PO BID ipratropium-albuterol 0.5 mg-3 mg(2.5 mg base)/3 mL solution for nebulization See Rx Instructions .ROUTE .COMPLEX Rx Instructions: use 1 vial IN NEBULIZER EVERY 4 HOURS NEEDED FOR WHEEZING OR SHORTNESS OF BREATH insulin glargine [Lantus U-100 Insulin] 100 unit/mL solution See Rx Instructions .ROUTE .COMPLEX Rx Instructions: inject 10 units SUBCUTANEOUSLY at breakfast and 40 units AT BEDTIME spironolactone [Aldactone] 100 mg Tablet 100 mg PO DAILY isosorbide mononitrate 60 mg tablet extended release 24 hr 60 mg PO DAILY morphine [MS Contin] 100 mg tablet extended release 100 mg PO Q8H Rx Instructions: max 3per day nifedipine [Procardia XL] 30 mg tablet extended release 24hr 30 mg PO DAILY naloxone [Narcan] 4 mg/actuation spray,non-aerosol 4 mg intranasal Q2M PRN (Reason: opioid overdose) Qty: 2 0RF Rx Instructions: spray 1 dose into ONE nostril; alternate nostrils w each dose until help arrives potassium chloride 20 mEq tablet extended release 20 meq PO DAILY tizanidine 4 mg tablet 4 mg PO Q6H PRN (Reason: Spasms) promethazine 25 mg tablet 25 mg PO Q6H PRN (Reason: nausea and vomiting) Qty: 20 0RF Referrals: Barbe,Francisco, DO [Primary Care Provider] Print Language: [place] Coding Level of Care Code ED Furnace Converter for Geneg Marcela
== END 2024-11-30 15:18 | disposition left against medical advice (07) ==
PROVIDERS: Emergency Provider Physician Assistant; PCP Family Medicine
DX: Z53.21 Procedure and treatment not carried out due to patient leaving prior to being seen by health care provider (principal); Z79.4 Long term (current) use of insulin; Z87.891 Personal history of nicotine dependence; J44.9 Chronic obstructive pulmonary disease, unspecified; E11.9 Type 2 diabetes mellitus without complications; I10 Essential (primary) hypertension

== ENCOUNTER 2024-12-04 13:08 | Emergency (ER) | payer MEDICAID, SELFPAY ==
[2024-12-04 13:10] VITALS: BP 136/103; PULSE 110; RESP 16; TEMP 36.8; O2SAT 98; BMI 30.1
--- NOTE | 2024-12-04 13:14 | XR_ITS ---
WS: [id number] XR chest 1V portable [id number] REASON FOR EXAM: nausea FINDINGS: The chest is unchanged compared to 03/31/2024. Cardiac device over the left chest with trans left subclavian leads to the right atrium and right ventricular apex. The heart size is normal. Calcified granulomatous disease bilaterally. No acute pulmonary parenchymal or pleural abnormality. No significant abnormality of the bony thorax. XR/XR chest 1V portable [id number] IMPRESSION: Stable chest without acute abnormality.
--- NOTE | 2024-12-04 13:15 | ED_ITS ---
HPI - General Adult 2 General: Chief complaint: General Medical Stated complaint: withdrawal History of Present Illness: Patient is a 49-year-old female with history of chronic pain, DM, presents to the emergency room with withdrawal symptoms. She has nausea, vomiting x 1 day. No emesis noted by EMS. Patient is grunting at bedside as if she is nauseous. No emesis noted here. EMS provided Zofran ODT 4 mg x 1. No IV line was yet placed. Patient states that she is changing her chronic pain med provider, and is going through withdrawal x 2 days. She also notes that her cast that had recent surgery to her left ankle for trimalleolar fracture is wet due to her toilet overflowing. Her left lower extremity has a splint/cast with Ricki wrap in place that is wet. No shortness of breath. No abdominal pain. No change in her stools. No chest discomfort. Associated symptoms: Reports nausea and vomiting; Deny chest pain, dyspnea, headache(s), malaise, rash or palpitations Related Data Home Medications ?Medication ?Instructions ?Recorded ?Confirmed albuterol sulfate 90 mcg/actuation 2 puff inhalation Q 6H PRN 10/19/23 12/04/24 aerosol inhaler (Ventolin HFA) Shortness Of Breath amitriptyline 75 mg tablet 75 mg PO BEDTIME 10/19/23 0 12/04/24 doxepin 10 mg capsule 10 mg PO BEDTIME PRN Sleep 0 10/19/23 12/04/24 cholecalciferol (vitamin D3) 1,250 50,000 unit PO Q7D 01/17/24 12/04/24 mcg (50,000 unit) capsule gabapentin 300 mg capsule 600 mg PO BID 01/17/2412/04 insulin glargine 100 unit/mL See Rx Instructions .Rout e .COMPLEX 09/23/24 12/04/24 subcutaneous solution (Lantus U-100 Insulin) ipratropium 0.5 mg-albuterol 3 mg See Rx Instructions .Route .COMPLEX 09/23/24 12/04/24 (2.5 mg base)/3 mL nebulization soln isosorbide mononitrate 60 mg 60 mg PO DAILY 09/23/24 0 12/04/24 tablet,extended release 24 hr morphine 100 mg tablet,extended 100 mg PO Q8H 09/23/24 12/04/24 release (MS Contin) nifedipine 30 mg tablet,extended 30 mg PO DAILY 12/04/24 release 24 hr (Procardia XL) spironolactone 100 mg tablet 100 mg PO DAILY 09/23/24 12/04/24 (Aldactone) furosemide 40 mg tablet See Rx Instructions .Route . COMPLEX 10/27/24 12/04/24 lamotrigine 100 mg tablet 100 mg PO DAILY 10/27/24 (Lamictal) metoprolol tartrate 50 mg tablet 50 mg PO BID 10/27/24 12/04/24 ondansetron 4 mg disintegrating See Rx Instructions .R oute .COMPLEX 10/27/24 12/04/24 tablet pantoprazole 40 mg tablet,delayed 40 mg PO DAILY 10/2712/04/24 release potassium chloride 20 mEq 20 meq PO DAILY 11/22/24 tablet,extended release tizanidine 4 mg tablet 4 mg PO Q6H PRN Spasms 11/2912/04/24 Previous Rx's ?Medication ?Instructions ?Recorded levothyroxine 50 mcg tablet 50 mcg PO QAM 30 days #30 tabs 08/19/23 zujiky-flxwhaky-mexzlot 1 cap PO TID 30 days #30 cap s 08/19/23 3,000-9,500-15,000 unit capsule, delayed rel (Creon) naloxone 4 mg/actuation nasal 4 mg intranasal Q2M PRN opioid 09/24/24 spray (Narcan) overdose #2 ea Knee Scooter #1 ea 10/14/24 hydromorphone 4 mg tablet 4 mg PO BID PRN pain #7 tabs 10/30/24 promethazine 25 mg tablet 25 mg PO Q6H PRN nausea and 11/29/24 vomiting #20 tabs magnesium oxide 400 mg PO BEDTIME #30 tabs 0 12/04/24 ondansetron 4 mg disintegrating 4 mg PO Q8H PRN nausea and 12/04/24 tablet vomiting 4 days #14 tabs Allergies Allergy/AdvReac Type Severity Reaction Status Date / Time codeine Allergy Unknown Unknown Verified 11/27/24 14:05 aspirin Allergy ALGY-Hives Verified 11/27/24 14:05 diphenhydramine (From Allergy ADR-Muscle Verified 11/27/24 14:05 Benadryl) Pain Sulfa (Sulfonamide Allergy ALGY-Swell Verified 11/27/24 14:05 Antibiotics) Lip/Tongue/Throat Review of Systems 2 General: Reports: 10 or more systems reviewed and unremarkable except in HPI and below Const: Reports: change in appetite, fatigue and other (Reports withdrawal); Denies: fever(s), chills, body aches or malaise Eyes: Denies: change in vision ENMT: Denies: throat pain, ear or mastoid pain or nasal discharge Card: Denies: chest pain, palpitations, swelling of feet/ankles or lightheadedness Resp: Denies: dyspnea, productive cough or wheezing GI: Reports: nausea and vomiting; Denies: abdominal pain, diarrhea, constipation or change in stool character : Denies: flank pain, difficulty voiding, dysuria or urinary frequency Musc: Reports: extremity pain (Right foot), joint pain, joint stiffness and limited range of motion; Denies: neck pain, back pain, extremity swelling, joint swelling, joint redness or joint warmth Skin/Breast: Denies: rash Neuro: Denies: headache(s), numbness in extremities or weakness in extremities Psych: Denies: anxiety or depression PFSH ED 2 PFSH: Medical History (Updated 12/04/24 @ 15:29 by ESPERANZA Swartz) Hypokalemia 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 Pain management contract signed Metabolic encephalopathy SSS (sick sinus syndrome) Presence of permanent cardiac pacemaker Seizure disorder Tobacco dependency Hypothyroidism Accidental fentanyl overdose Overdose Cardiac arrest COPD (chronic obstructive pulmonary disease) Chronically on 3 L of oxygen Smoker Thrombocytopenia Bilateral pulmonary embolism Hepatitis B Pulmonary embolism Nicotine dependence, cigarettes, with unspecified nicotine-induced disorders Chronic hepatitis B Chronic abdominal pain Chronic hip pain Leg cramps Stomach cancer Pelvic inflammatory disease Diabetes mellitus Hypertension Encephalopathy Cirrhosis Gastroesophageal reflux GI bleeding Surgical History H/O right hemicolectomy History of right hemicolectomy H/O tubal ligation History of laparotomy History of hysterectomy Family History Mother Diabetes Father CAD (coronary artery disease) Other Cancer Social History (Reviewed 12/02/24 @ 06:07 by NGA Marin Smoking and tobacco/nicotine status: former use of tobacco/nicotine (quit 2022) Quit status (tobacco/nicotine): has quit using Year quit tobacco: 2020 Former quit date comment: 2ppd x 26 year Hx Alcohol intake: never Substance/Drug Use: never Physical Exam 2 Const: COMMON NORMALS: no acute distress GENERAL APPEARANCE: cooperative and comfortable ORIENTATION/CONSCIOUSNESS: Yes awake HENMT: COMMON NORMALS: normocephalic and atraumatic HEAD & SCALP: n ormocephalic and atraumatic Eye: COMMON NORMALS: EOMs intact bilaterally and conjunctivae normal C ONJUNCTIVA: Yes conjunctivae normal Neck/C-Spine: COMMON NORMALS: full ROM Chest: COMMONS NORMALS: normal inspection of the chest and normal palpation of entire chest wall Resp: COMMON NORMALS: normal respiratory effort, No retractions, No use of accessory muscles and clear to auscultation bilaterally AUSCULTATION: clear to auscultation bilaterally Cardio: COMMON NORMALS: regular rate and regular rhythm RATE: regular rate RHYTHM: regular rhythm Back/Pelvis: COMMON NORMALS: thoraco-lumbar ROM normal Extremity: COMMON NORMALS: full ROM and no joint enlargement NARRATIVE EXTREMITY EXAM: Cast to right foot Neuro: COMMON NORMALS: moves all extremities, no focal motor deficits and no sensory deficits noted Psych: COMMON NORMALS: mental status grossly normal and cooperative Skin: COMMON NORMALS: no rashes or lesions noted GENERAL SKIN EXAM: no rashes or lesions noted Course 2 Reevaluation(s): Reevaluation #1: Patient states she is still measurable. Still no emesis in ER. Ordered Compazine, and patient agreed to take Benadryl IV with her allergy side effect. Reevaluation #2: Patient states her stomach is still hurting which she had denied before. Will obtain CT of abdomen and pelvis. Consultations: Consultation #1: Discussed with Dr. Perez's office nurse, Karlie, recommends that we resplint right lower extremity trimalleolar fracture. They are happy to follow-up with the patient on Sunday. Vital Signs: Vital signs: Vital Signs Temperature 98.3 F 12/04/24 13:10 Pulse Rate 79 12/04/24 17:50 Respiratory Rate 18 12/04/24 14:13 Blood Pressure 149/90 12/04/24 17:50 Pulse Oximetry 98 12/04/24 17:50 Oxygen Delivery Me thod Room Air 12/04/24 13:10 MDM - General Adult Medical Decision Making Patient is 49-year-old female presents with withdrawal symptoms, nausea, vomiting, although no emesis witnessed on this evaluation. She has a right trimalleolar fracture status post open reduction internal fixation on 10/29/2024 still in cast, with wet cast, history of noncompliance. She states her cast is wet. Nurse is calling Dr. Ellison's office for further information if we are to resplint this here or send to his office. Unable to provide narcotics, as this patient has narcotic contract and has multiple history of noncompliance. Recent AMA on 11/30 from the ER when narcotics were denied. Medical records reviewed. Laboratory data reviewed. Will give IV fluids and antiemetics. Patient is allergic to Benadryl and is already received Zofran, therefore will use atypical medications Ativan, and Zyprexa. That did not help patient's nausea, therefore gave Compazine, and Benadryl. Patient has muscle aches intolerance on her allergy list from Benadryl which she has okayed to give IV. She is no more tachycardic after 1 L IV fluid. Will give additional liter of LR given her lactic acid of 3.2. Will redraw lactic acid at 2-hour brandan. Urine analysis is still pending. Patient complained of abdominal pain that she did not the first time, therefore CT abdomen pelvis is ordered. Lactic acid improved after IV fluids. Will check for ischemic pathology. Potassium has been replaced. Magnesium has been given. Went over all of the events with the patient, and she is no longer in pain, no longer grunting, no longer nauseated. Suspect component of withdrawal. Will defer to primary opioid managing physician. Interestingly, her urine screen positive for opioids which patient stated she was within withdrawal. Suspect more of malingering, and secondary gain, however will defer. Medical Records I reviewed the patient's medical records. Lab Data I reviewed the patient's lab results. 12/04/24 13:44 12/04/24 13:44 Radiology Impressions Chest X-Ray 12/04/24 13:14 IMPRESSION: Stable chest without acute abnormality. Abdomen/Pelvis CT 12/04/24 16:19 IMPRESSION: 1. Aortic and coronary atherosclerosis. 2. Colonic diverticulosis probably most conspicuous in sigmoid without definite significant acute inflammatory changes. 3. No definite acute abdominopelvic abnormality. Laboratory Results WBC 10.40 10^3/uL (3.29-11.43) 12/04/24 13:44 RBC 4.83 10^6/uL (3.85-5.65) 12/04/24 13:44 Hgb 14.10 g/dL (11.27-16.99) 12/04/24 13:44 Hct 41.0 % (36-47) 12/04/24 13:44 MCV 84.9 fl (85-98) L 12/04/24 13:44 MCH 29.2 pg (27-33) 12/04/24 13:44 MCHC 34.4 g/dL (30-55) 12/04/24 13:44 RDW 13.6 % (12.1-15.1) 12/04/24 13:44 Plt Count 244 10^3/cmm (157-399) 12/04/24 13:44 MPV 11.2 fL (7.4-10.4) H 12/04/24 13:44 Neut % (Auto) 66.1 % 12/04/24 13:44 Lymph % (Auto) 20.9 % 12/04/24 13:44 [place] % (Auto) 11.7 % 12/04/24 13:44 Eos % (Auto) 0.2 % 12/04/24 13:44 Baso % (Auto) 0.6 % 12/04/24 13:44 Neut # (Auto) 6.88 10^3/uL (1.8-7.7) 12/04/24 13:44 Lymph # (Auto) 2.2 10^3/uL (0.8-4.8) 12/04/24 13:44 [place] # (Auto) 1.2 10^3/uL (0.2-0.9) H 12/04/24 13:44 Eos # (Auto) 0.0 10^3/uL (0.0-0.8) 12/04/24 13:44 Baso # (Auto) 0.1 10^3/uL (0.0-0.1) 12/04/24 13:44 Nucleated RBC % (auto) 0 % 12/04/24 13:44 Nucleated RBCs # 0.0 /100WBC 12/04/24 13:44 Sodium 137 mmol/L (136-145) 12/04/24 13:44 Potassium 2.9 mmol/L (3.5-5.1) L 12/04/24 13:44 Chloride 100 mmol/L (98-107) 12/04/24 13:44 Carbon Dioxide 24 mmol/L (22-29) 12/04/24 13:44 Anion Gap 15.9 (5-19) 12/04/24 13:44 BUN 7 mg/dL (6-20) 12/04/24 13:44 Creatinine 0.5 mg/dL (0.5-0.9) 12/04/24 13:44 GFR Calculation 130.6 mL/min (90-130) H 12/04/24 13:44 Glucose 138 mg/dL (65-115) H 12/04/24 13:44 Calculated Osmolality 284 mOsm/kg (285-295) L 12/04/24 13:44 Lactic Acid 3.2 mmol/L (0.5-2.2) H 12/04/24 13:44 Lactic Acid (Sepsis) 1.8 mmol/L (0.5-2.2) 12/04/24 16:24 Calcium 9.3 mg/dL (8.5-10.5) 12/04/24 13:44 Magnesium 1.3 mg/dL (1.7-2.3) L 12/04/24 13:44 Total Bilirubin 1.0 mg/dL (0.15-1.2) 12/04/24 13:44 AST 25 U/L (0-32) 12/04/24 13:44 ALT 17 U/L (0-33) 12/04/24 13:44 Alkaline Phosphatase 127 U/L (35-105) H 12/04/24 13:44 Ammonia 53 umol/L (11-51) H 12/04/24 13:44 C-Reactive Protein 28.8 mg/L (0.0-4.9) H 12/04/24 13:44 Total Protein 8.3 g/dL (6.6-8.7) 12/04/24 13:44 Albumin 3.6 g/dL (3.5-5.2) 12/04/24 13:44 Globulin 4.7 g/dL (1.3-4.6) H 12/04/24 13:44 Lipase 34 U/L (13-60) 12/04/24 13:44 Urine Color [place] (Yellow) A 12/04/24 15:21 Urine Appearance Clear (CLEAR) 12/04/24 15:21 Urine pH 8.0 (5-7) A 12/04/24 15:21 Ur Specific [place] 1.008 (1.005-1.030) 12/04/24 15:21 Urine Protein Negative (Negative) 12/04/24 15:21 Urine Glucose (UA) Negative (Normal) 12/04/24 15:21 Urine Ketones Negative (Negative) 12/04/24 15:21 Urine Blood Negative (Negative) 12/04/24 15:21 Urine Nitrate Negative (Negative) 12/04/24 15:21 Urine Bilirubin Negative (Negative) 12/04/24 15:21 Urine Urobilinogen 1.0 mg/dL (Negative) 12/04/24 15:21 Ur Leukocyte Esterase Negative (Negative) 12/04/24 15:21 Urine RBC 0-2 /hpf (0-2) 12/04/24 15:21 Urine WBC 0-5 /hpf (0-5) 12/04/24 15:21 Ur Squamous Epith Cells 0-5 /hpf (0-5) 12/04/24 15:21 Amorphous Sediment Not Reportable 12/04/24 15:21 Urine Bacteria None seen /hpf (NONE) 12/04/24 15:21 Hyaline Casts 1.65 /lpf 12/04/24 15:21 Urine Opiates Screen Positive ng/mL (Negative) H 12/04/24 15:21 Ur Barbiturates Screen Negative ng/mL (Negative) 12/04/24 15:21 Ur Phencyclidine Scrn Negative ng/mL (Negative) 12/04/24 15:21 Ur Amphetamines Screen Negative ng/mL (Negative) 12/04/24 15:21 U Benzodiazepines Scrn Negative ng/mL (Negative) 12/04/24 15:21 Urine Cocaine Screen Negative ng/mL (Negative) 12/04/24 15:21 U Marijuana (THC) Screen Negative ng/mL (Negative) 12/04/24 15:21 Ethyl Alcohol < 10 mg/dL (0-10) 12/04/24 13:44 All radiology interpretation(s) finalized by discharge ED provider radiology interpretation(s): No acute changes on chest x-ray, umbilical hernia noted on previous CT of the abdomen pelvis on CT of the abdomen pelvis. EKG Data EKG 1: Interpretation: Sinus tachycardia, normal axis, no ST segment elevation, QTc 438 ms Computer generated interpretation: Chest X-Ray 12/04/24 13:14 IMPRESSION: Stable chest without acute abnormality. Abdomen/Pelvis CT 12/04/24 16:19 IMPRESSION: 1. Aortic and coronary atherosclerosis. 2. Colonic diverticulosis probably most conspicuous in sigmoid without definite significant acute inflammatory changes. 3. No definite acute abdominopelvic abnormality. Discharge Plan Discharge Patient Disposition: Home Clinical Impression: Acute lactic acidosis, Hypokalemia, Hypomagnesemia, Nausea, Noncompliance Condition: Stable Prescriptions: New magnesium oxide 400 mg magnesium tablet 400 mg PO BEDTIME Qty: 30 0RF Rx Instructions: Take 1 p.o. at night ondansetron 4 mg tablet,disintegrating 4 mg PO Q8H PRN (Reason: nausea and vomiting) 4 Days Qty: 14 0RF No Action (DME) Knee Scooter See Rx Instructions .Route .MEDSUPPLY Qty: 1 0RF Rx Instructions: As directed by Emanuel amitriptyline 75 mg tablet 75 mg PO BEDTIME doxepin 10 mg capsule 10 mg PO BEDTIME PRN (Reason: Sleep) albuterol sulfate [Ventolin HFA] 90 mcg/actuation HFA aerosol inhaler 2 puff INHALATION Q6H PRN (Reason: Shortness Of Breath) furosemide 40 mg tablet See Rx Instructions .ROUTE .COMPLEX Rx Instructions: TAKE 3 TABLETS BY MOUTH EVERY MORNING AND TWO TABLETS IN THE AFTERNOON (WEIGH DAILY) pantoprazole 40 mg tablet,delayed release (DR/EC) 40 mg PO DAILY metoprolol tartrate 50 mg tablet 50 mg PO BID ondansetron 4 mg tablet,disintegrating See Rx Instructions .ROUTE .COMPLEX Rx Instructions: DISSOLVE ONE TABLET BY MOUTH EVERY 6 HOURS NEEDED FOR NAUSEA AND VOMITING lamotrigine [Lamictal] 100 mg tablet 100 mg PO DAILY hydromorphone 4 mg tablet 4 mg PO BID PRN (Reason: pain) Qty: 7 0RF levothyroxine 50 mcg tablet 50 mcg PO QAM 30 Days Qty: 30 2RF Creon 3,000-9,500- 15,000 unit capsule,delayed release(DR/EC) 1 cap PO TID 30 Days Qty: 30 0RF cholecalciferol (vitamin D3) 1,250 mcg (50,000 unit) capsule 50,000 unit PO Q7D Rx Instructions: gabapentin 300 mg capsule 600 mg PO BID ipratropium-albuterol 0.5 mg-3 mg(2.5 mg base)/3 mL solution for nebulization See Rx Instructions .ROUTE .COMPLEX Rx Instructions: use 1 vial IN NEBULIZER EVERY 4 HOURS NEEDED FOR WHEEZING OR SHORTNESS OF BREATH insulin glargine [Lantus U-100 Insulin] 100 unit/mL solution See Rx Instructions .ROUTE .COMPLEX Rx Instructions: inject 10 units SUBCUTANEOUSLY at breakfast and 40 units AT BEDTIME spironolactone [Aldactone] 100 mg Tablet 100 mg PO DAILY isosorbide mononitrate 60 mg tablet extended release 24 hr 60 mg PO DAILY morphine [MS Contin] 100 mg tablet extended release 100 mg PO Q8H Rx Instructions: max 3per day nifedipine [Procardia XL] 30 mg tablet extended release 24hr 30 mg PO DAILY naloxone [Narcan] 4 mg/actuation spray,non-aerosol 4 mg intranasal Q2M PRN (Reason: opioid overdose) Qty: 2 0RF Rx Instructions: spray 1 dose into ONE nostril; alternate nostrils w each dose until help arrives potassium chloride 20 mEq tablet extended release 20 meq PO DAILY tizanidine 4 mg tablet 4 mg PO Q6H PRN (Reason: Spasms) promethazine 25 mg tablet 25 mg PO Q6H PRN (Reason: nausea and vomiting) Qty: 20 0RF Discharge Orders: Discharge ED (Routine); Ordered 12/04/24 Ordered By: Jocy Ahn Referrals: Francisco Mckinley DO [Primary Care Provider] Discharge Diet: Clear Liquid Discharge Activity: Resume usual activity Patient Instructions: Narcotic Withdrawal (ED), Patient Portal & Marcelino Instructions Activity Restrictions/Additional Instructions: -It is imperative follow-up with your doctor regarding repeat labs and a follow- up visit. Please call in a.m. to follow-up tomorrow Sunday or Sunday. You will need to repeat potassium and magnesium. Your doctor will know how to order this. -Your splint was changed, do not get this wet. It is not designed to go in the shower and get wet. This will need to most likely be rechanged by your health services information specialist when he gets back to town on Sunday. Please call tomorrow to follow- up with your health services information specialist regarding your cast. -Clear liquid diet only until your nausea and vomiting resolves -Return to ED with worsening nausea, and vomiting. -We are unable to provide any type of chronic narcotic pain medications. You will need to discuss this with your opioid managing physician. Print Language: Slovak Coding Level of Care Code ED Chemical Research Technician for 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
--- OUTSIDE RECORDS SUMMARY | 2024-12-04 13:15 | XMS_ITS | Encounter Summary ---
Author Organization [facility] Address [address] [place] [address] Care Team Providers Care E M Assembler Name Role Phone Francisco Mckinley DO Primary Care Provider [phone] Reason for Visit * Reason Comments Medication Refill Medication Question Encounter Details Date Type Department Care Team (Late st Contact Info) Description 12/02/2024 Refill [facility] Medicine [address] [phone] Francisco Mckinley DO [address] [place] [phone] Social History Tobacco Use Types Packs/Day Years [...] in the past 12 m [facility], were you homeless or living in a [place] [facility] [place] facility (including now)? 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 Topic: Medication Request >> Dec 03, 2024 12:19 PM Nimesh Diehl wrote: Caller Name: Maribell Foreman Callback Number: [phone] (mobile) Medication (Ask patient/caregiver to spell if possible): morphine (MS CONTIN) 100 mg Controlled Release tablet Note: All medication prescriptions can be requested using one [facility] Preferred Pharmacy: [facility] [address] Call Notes: Caller is checking the status of a prescription request sent on date 12/02/24 Review the medication to determine if prescription has been sent to the pharmacy. Has the prescription been sent to the pharmacy? No, less than 48 hours since prescription request sent to clinic but patient requesting a message be sent Is there an encounter open? Yes * Telephone Encounter - Travis Licona - 12/03/2024 11:17 AM CDT Copied from [facility] #[id number]. Topic: Medication Request >> Dec 03, 2024 11:16 AM Travis Pedraza wrote: Caller Name: Maribell Foreman Callback Number: Telephone Information: Medication (Ask patient/caregiver to spell if possible): morphine (MS CONTIN) 100 mg Controlled Release tablet Note: All medication prescriptions can be requested using one [facility] Preferred Pharmacy: [facility] [address] Call Notes: Caller is checking the status of a prescription request sent on date 12/02/24 Review the medication to determine if prescription has been sent to the pharmacy. Has the prescription been sent to the pharmacy? No, less than 48 hours since prescription request sent to clinic but patient requesting a message be sent Is there an encounter open? Yes * Telephone Encounter - Daily Flores LPN - 12/02/2024 1:50 PM CDT Refill request sent to provider to authorize. * Telephone Encounter - Farnaz Mistry - 12/02/2024 1:20 PM CDT Copied from [facility] #[id number]. Topic: Medication Request >> Dec 02, 2024 1:19 PM Farnaz Benitez wrote: Caller Name: Maribell Foreman Callback Number: Telephone Information: Medication (Ask patient/caregiver to spell if possible): morphine (MS CONTIN) 100 mg Controlled Release tablet Preferred Pharmacy: [address] Did caller contact the correct clinic for prescribing provider? Yes Ask caller if the refill is for a controlled medication. Is this for a controlled Medication? Yes Is there an encounter open? 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
--- OUTSIDE RECORDS SUMMARY | 2024-12-04 13:15 | XMS_ITS | Encounter Summary ---
Author Organization [facility] Address [address] [place] [address] Phone Care Team Providers Care Nursery Nurse Name Role Phone Francisco Mckinley DO Primary Care Provider [phone] Encounter Details Date Type Department Care Team (Late st Contact Info) Description 07/01/2021 Orders Only [facility] [address] [place] [address] Cirrhosis, not otherwise specified (HCC); [...] (HCC) documented in this encounter Care Teams Nursery Nurse Relationship Specialty Start Date End Date Francisco Mckinley DO [address], [place] [address] PCP - General Family Medicine 07/01/21 documented as of this encounter
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
--- OUTSIDE RECORDS SUMMARY | 2024-12-04 13:15 | XMS_ITS | Encounter Summary ---
Author Organization [facility] Address [address] [place] [address] Care Team Providers Care Personal Care Aide Name Role Phone Francisco Mckinley DO Primary Care Provider [phone] Reason for Visit * Reason Comments New Med Request Encounter Details Date Type Department Care Team (Late st Contact Info) Description 12/02/2024 Telephone [facility] Medicine [address] [phone] Francisco Mckinley DO [address] [place] [phone] New Med Request Social History Tobacco Use Types Packs/Day Years [...] any time in the past 12 m [facility], were you homeless or living in [...] file Legal Sex Female 2:09 PM MANAGER COST Gender Identity Not on file Sexual Orientation Not on file documented as of this encounter Miscellaneous Notes * Telephone Encounter - Shabana Zamudio RN - 12/02/2024 1:28 PM CDT Spoke with patient and she states that she takes enaxatarin sodium 40 mg/0.[address] Ellison usually prescribes this to her and he is out at this time. She would like to know if Dr. Mckinley will refill. Rx pended and sent to provider. Shabana Zamudio RN, 12/02/2024 1:32 PM * Telephone Encounter - Farnaz Mistry Reyes - 12/02/2024 1:24 PM CDT Copied from [facility] #[id number]. Topic: Medication Request >> Dec 02, 2024 1:21 PM Farnaz Benitez wrote: Caller Name: Maribell Foreman Medication (Ask patient/caregiver to spell if possible): enaxatarin sodium injection 40 mg Preferred Pharmacy: [address] Call Notes: Caller is requesting a new medication, which is not active on their medication list. Patient is - High Risk Transferred to N line documented in this encounter Plan of Treatment Upcoming Encounters Date Type Department Care Team (Late st Contact Info) Description 12/17/2024 2:10 PM CDT Office Visit [facility] [place] [address] [place] [phone] Kacy Lazo FNP [address] [place] [phone] 01/26/2025 8:40 AM MANAGER COST Office Visit [facility] Gastroenterology- [place] [address] [phone] Robert Estrada MD [address] [phone] documented as of this encounter Visit Diagnoses Diagnosis Closed fracture of left ankle, sequela- Primary Encounter for deep vein thrombosis prophylaxis documented in this encounter Care Teams Personal Care Aide Relationship Specialty Start Date End Date Francisco Mckinley DO [address] [place] [phone] PCP - General 06/07/20 documented as of this encounter
--- OUTSIDE RECORDS SUMMARY | 2024-12-04 13:15 | XMS_ITS | Encounter Summary ---
Author Organization [facility] Address [address] [place] [address] Care Team Providers Care Crushing Foreman Name Role Phone Francisco Mckinley DO Primary Care Provider [phone] Reason for Visit * Reason Comments Med Refill Medication Refill Encounter Details Date Type Department Care Team (Late st Contact Info) Description 12/03/2024 Refill [facility] Medicine [address] [phone] Francisco Mckinley DO [address] [place] [phone] Cellulitis of right lower extremity; Cellulitis of [...] were you homeless or living in a jail (including now)? Yes 02/01/2024 Feeling Safe Answer [...] on file Legal Sex Female 2:09 PM ACADEMIC ADVISER Gender Identity Not on file Sexual Orientation Not on file documented as of this encounter Miscellaneous Notes * Telephone Encounter - Shabana Casas - 12/04/2024 8:35 AM CDT Copied from [facility] #[id number]. Topic: Medication Request >> Dec 04, 2024 8:33 AM Shabana Carlson wrote: Caller Name: Maribell Foreman Callback Number: Telephone Information: Medication (Ask patient/caregiver to spell if possible): HYDROmorphone (DILAUDID) 4 mg tablet Note: All medication prescriptions can be requested using one [facility] Preferred Pharmacy: [facility] Call Notes: Caller is checking the status of a prescription request sent on date none. Advised its in Dr. Arlen mann to sign. Review the medication to determine if prescription has been sent to the pharmacy. Has the prescription been sent to the pharmacy? No, less than 48 hours since prescription request sent to clinic but patient requesting a message be sent Is there an encounter open? Yes * Telephone Encounter - Daily Flores LPN - 12/04/2024 8:11 AM CDT Medication Refill Request Last Fill Date:12/01/24 Recent and Future Visits: Recent Visits Date Type Provider Dept 07/07/24 Video Visit Ailyn Leon FNP [facility] 06/27/24 Video Visit Francisco Mckinley, DO [facility] 04/03/24 Office Visit Francisco Mckinley, DO [facility] 02/01/24 Office Visit Francisco Mckinley, [facility] 12/27/23 Office Visit Francisco Mckinley, DO [facility] 12/13/23 Office Visit Francisco Mckinley, [facility] 09/27/23 Office Visit Francisco Mckinley, [facility] 08/23/23 Office Visit Kacy Lazo FNP [facility] Showing recent visits within past 540 days with a meds authorizing provider and meeting all other requirements Future Appointments Date Type Provider Dept 12/17/24 Appointment Kacy Lazo FNP [facility] Showing future appointments within next 365 days with a meds authorizing provider and meeting all other requirements documented in this encounter Plan of Treatment Upcoming Encounters Date Type Department Care Team (Late st Contact Info) Description 12/17/2024 2:10 PM CDT Office Visit [facility] [address] [phone] Kacy Lazo FNP [address] [place] [address] 01/26/2025 8:40 AM ACADEMIC ADVISER [facility] [address] [facility] [address] [place] [phone] Robert Estrada MD [address] [phone] documented as of this encounter [...] sequela documented in this encounter Care Teams Crushing Foreman Relationship Specialty Start Date End Date Francisco Mckinley DO [address] [place] [phone] PCP - General 06/07/20 documented as of this encounter
--- OUTSIDE RECORDS SUMMARY | 2024-12-04 13:15 | XMS_ITS | Encounter Summary ---
Author Organization [facility] Address 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 Discussed that 2 tablets are not enough she isn't going into surgery until 12/08. She states that she did talk with the provider and they talking about decreasingthe pain medication in the future she didn't know he meant now. Also needs a refill on her Imitrex due to her migraines being so bad. Medication Refill Request Last Fill Date: 12/13/23 D/C 05/18/24 Recent and Future Visits: Recent Visits Date Type Provider Dept 07/07/24 Video Visit Ailyn Leon, [facility] 06/27/24 Video Visit Francisco Mckinley, [facility] 04/03/24 Office Visit Francisco Mckinley, [facility] 02/01/24 Office Visit Francisco Mckinley, [facility] 12/27/23 Office Visit Francisco Mckinley, DO [facility] 12/13/23 Office Visit Francisco Mckinley, [facility] 09/27/23 Office Visit Francisco Mckinley, [facility] 08/23/23 Office Visit Kacy Lazo, [facility] Showing recent visits within past 540 days with a meds authorizing provider and meeting all other requirements Future Appointments Date Type Provider Dept 12/17/24 Appointment Kacy Lazo [facility] Showing future appointments within next 365 days with a meds authorizing provider and meeting all other requirements * Telephone Encounter - Shabana Casas - 12/01/2024 4:25 PM CDT Copied from [facility] #[id number]. Topic: Medication Request >> Dec 01, 2024 4:21 PM Shabana Carlson wrote: Caller Name: Maribell Foreman Callback Number: Telephone Information: Medication (Ask patient/caregiver to spell if possible): HYDROmorphone (DILAUDID) 4 mg tablet Note: All medication prescriptions can be requested using one CRM Caller is requesting: Medication Question from Patient Preferred Pharmacy: [facility] Call Notes: Caller has question about states she used to take 3 and now it is 2. States it was hardenough for her to make it by with 3 but 2 a day is not enough. Is there an encounter open? Yes * Telephone Encounter - Daily Camejo LPN - 12/01/2024 9:11 AM CDT Medication Refill Request Last Fill Date:11/24/24 Recent and Future Visits: Recent Visits Date Type Provider Dept 07/07/24 Video Visit Ailyn Leon [facility] 06/27/24 Video Visit Francisco Mckinley, DO [facility] 04/03/24 Office Visit Francisco Mckinley, DO [facility] 02/01/24 Office Visit Francisco Mckinley, DO [facility] 12/27/23 Office Visit Francisco Mckinley, DO [facility] 12/13/23 Office Visit Francisco Mckinley, DO [facility] 09/27/23 Office Visit Francisco Mckinley, DO [facility] 08/23/23 Office Visit Kacy Lazo [facility] Showing recent visits within past 540 days with a meds authorizing provider and meeting all other requirements Future Appointments Date Type Provider Dept 12/17/24 Appointment Kacy Lazo [facility] Showing future appointments within next 365 days with a meds authorizing provider and meeting all other requirements * Telephone Encounter - Nimesh Almonte - 12/01/2024 8:59 AM CDT Copied from [facility] #[id number]. Topic: Medication Request >> Dec 01, 2024 8:58 AM Nimesh Diehl wrote: Caller Name: Maribell Foreman Callback Number: [phone] (mobile) Medication (Ask patient/caregiver to spell if possible): HYDROmorphone (DILAUDID) 4 mg tablet Note: All medication prescriptions can be requested using one CRM Preferred Pharmacy: [facility] [place] [address] [place] [address] [address] [facility] [address] Call Notes: patient calling to request medication refill - patient states that it is urgent. Did caller contact the correct clinic for prescribing provider? Yes Ask caller if the refill is for a controlled medication. Is this for a controlled Medication? Yes Is there an encounter open? No documented in this encounter Plan of Treatment Upcoming Encounters Date Type Department Care Team (Late st Contact Info) Description 12/17/2024 2:10 PM CDT Office Visit [facility] [address] [phone] Kacy Lazo [facility] [address] [phone] 01/26/2025 8:40 AM EQUIPMENT MAINTENANCE TECH Office Visit [facility]- [place] [address] [place] [phone] Robert Estrada MD [address] [place] [phone] documented as of this encounter Visit Diagnoses [...] sequela documented in this encounter Care Teams Wire Mesh Gate Assembler Relationship Specialty Start Date End Date Francisco Mckinley DO [address] [place] [address] PCP - General 06/07/20 documented as of this encounter
--- OUTSIDE RECORDS SUMMARY | 2024-12-04 13:15 | XMS_ITS | Encounter Summary ---
Author Organization [facility] Address 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 Gender Identity Not on file Sexual Orientation Not on file documented as of this encounter Plan of Treatment Upcoming Encounters Date Type Department Care Team (Late st Contact Info) Description 12/17/2024 2:10 PM CDT Office Visit [facility] [place] [address] [place] [phone] Kacy Lazo FNP [address] [place] [phone] 01/26/2025 8:40 AM STAND UP FORKLIFT OPERATOR Office Visit [facility] Gastroenterology- [place] [address] [address] Robert Estrada MD [address] [address] documented as of this encounter Visit Diagnoses Not on filedocumented in this encounter Additional Health Concerns Assessment Noted Time PHQ-9 Depression Total Score: 3 04/03/19 25 12:00 PM STAND UP FORKLIFT OPERATOR documented as of this encounter Care Teams Respiratory Care Assistant Relationship Specialty Start Date End Date Francisco Mckinley DO [address] [place] [phone] PCP - General 06/07/20 documented as of this encounter
--- OUTSIDE RECORDS SUMMARY | 2024-12-04 13:15 | XMS_ITS | Encounter Summary ---
Author Organization [facility] Address [address] [place] [address] Care Team Providers Care Ingredient Specialist Name Role Phone Francisco Mckinley DO Primary Care Provider [phone] Reason for Visit * Reason Comments Med Refill Medication Refill Encounter Details Date Type Department Care Team (Late st Contact Info) Description 12/02/2024 Refill [facility] [address] [phone] Francisco Mckinley DO [address] [place] [phone] Uncomplicated opioid dependence; Hospice care patient; [...] any time in the past 12 m [facility], were you homeless or living in [...] on file 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 Topic: Medication Request >> Dec 04, 2024 12:12 PM Audelia Carlson wrote: Caller Name: Maribell Foreman Callback Number: Telephone Information: Medication (Ask patient/caregiver to spell if possible):morphine (MS CONTIN) 100 mg Controlled Release tablet Note: All medication prescriptions can be requested using one [facility] Preferred Pharmacy: [address] Call Notes: Caller is checking the status of a prescription request sent on date 12/02/2024 Review the medication to determine if prescription has been sent to the pharmacy. Has the prescription been sent to the pharmacy? No, more than 48 hours since prescription request sent to clinic Is there an encounter open? Yes * Telephone Encounter - Daily Flores LPN - 12/02/2024 1:49 PM CDT Medication Refill Request Last Fill Date:11/01/24 Recent and Future Visits: Recent Visits Date Type Provider Dept 07/07/24 Video Visit Ailyn Leon FNP [facility] 06/27/24 Video Visit Francisco Mckinley, DO [facility] 04/03/24 Office Visit Francisco Mckinley, DO [facility] 02/01/24 Office Visit Francisco Mckinley, DO [facility] 12/27/23 Office Visit Francisco Mckinley, DO [facility] 12/13/23 Office Visit Francisco Mckinley, DO [facility] 09/27/23 Office Visit Francisco Mckinley, DO [facility] 08/23/23 Office Visit Kacy Lazo FNP [facility] Showing recent visits within past 540 days with a meds authorizing provider and meeting all other requirements Future Appointments Date Type Provider Dept 12/17/24 Appointment Kacy Lazo FNP [facility] Showing future appointments within next 365 days with a meds authorizing provider and meeting all other requirements documented in this encounter Plan of Treatment Upcoming Encounters Date Type Department Care Team (Late st Contact Info) Description 12/17/2024 2:10 PM CDT Office Visit [facility] [address] [place] [phone] Kacy Lazo FNP [address] [phone] 01/26/2025 8:40 AM BLINDSTITCH HEMMER Office Visit [facility] Gastroenterology- [place] [address] [facility] [address] [place] [address] Robert Estrada MD 2[address] [facility] [address] [place] [address] documented as of this encounter Visit Diagnoses Diagnosis Uncomplicated opioid dependence Opioid type dependence, unspecified Hospice care patient Encounter for palliative care Other chronic pancreatitis documented in this encounter Care Teams Ingredient Specialist Relationship Specialty Start Date End Date Francisco Mckinley DO [address] [place] [phone] PCP - General 06/07/20 documented as of this encounter
--- OUTSIDE RECORDS SUMMARY | 2024-12-04 13:15 | XMS_ITS | Clinical Summary ---
Author Organization [facility] Address [address] [place] [address] [place] [address] Care Team Providers Care Outpatient Services Director Name Role Phone Francisco Mckinley DO Primary Care Provider [phone] Social History Tobacco Use Types Packs/Day Years [...] 2024 Insurance Medicaid [place] (SKMO0) Care Teams Outpatient Services Director Relationship Specialty Start Date End Date Francisco Mckinley DO [address] [place] [address] PCP - General Family Medicine 07/01/21
--- OUTSIDE RECORDS SUMMARY | 2024-12-04 13:15 | XMS_ITS | Encounter Summary ---
Author Organization [facility] Address [address] [place] [address] Care Team Providers Care Manager Of Information Name Role Phone Francisco Mckinley DO Primary Care Provider [phone] Reason for Visit * Reason Comments Information Encounter Details Date Type Department Care Team (Late st Contact Info) Description 09/17/2024 Telephone [facility] Medicine [address] [phone] Francisco Mckinley DO [address] [place] [phone] Information Social History Tobacco Use Types [...] any time in the past 12 m [facility], were you homeless or living in a [...] on file 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 Due to Holiday and extended weekend, Dr. Mckinley called to ER, the date/time selected is 1st available for HFU * Telephone Encounter - Natalie Zamudio - 09/17/2024 4:56 PM CDT Copied from [facility] #[id number]. Topic: Established Patient Care >> Sep 17, 2024 4:54 PM Natalie Gloria wrote: Is the patient established with a [facility] provider? Yes, select appropriate option in Discharge Facility SmartList Caller Name: Maribell Foreman Callback Number: Telephone Information: Call Notes: Discharge from [facility] ED on 09/15 Patient is [...] Description 12/17/2024 2:10 PM CDT Office Visit [facility] Medicine [place] [address] [place] [phone] Kacy Lazo FNP [address] [place] [phone] 01/26/2025 8:40 AM SENIOR COMMUNICATIONS SPECIALIST Office Visit [facility] Gastroenterology- [place] [address] [phone] Robert Estrada MD [address] [phone] documented as of this encounter Visit Diagnoses Not on filedocumented in this encounter Care Teams Manager Of Information Relationship Specialty Start Date End Date Francisco Mckinley DO [address] [place] [phone] PCP - General 06/07/20 documented as of this encounter
--- OUTSIDE RECORDS SUMMARY | 2024-12-04 13:15 | XMS_ITS | Encounter Summary ---
Author Organization [facility] Address [address] [place] [address] Care Team Providers Care Nitriles Lab Technician Name Role Phone Francisco Mckinley DO Primary Care Provider [phone] Reason for Visit * Reason Comments Information Encounter Details Date Type Department Care Team (Late st Contact Info) Description 07/01/2024 Telephone [facility] Medicine [address] [phone] Francisco Mckinley DO [address] [place] [phone] Information Social History Tobacco Use Types [...] time in the past [address] [facility], were you homeless or living in [...] on file Legal Sex Female 2:09 PM TURN LASTER Gender Identity Not on file Sexual Orientation [...] - 07/01/2024 11:50 AM CDT Copied from [facility] #[id number]. Topic: Patient or Caregiver Communication Request >> Jul 01, 2024 11:47 AM Eva Gloria wrote: Patient or Caregiver calling to update Care team on status after a recent visit Caller: Maribell Foreman Patient/Caregiver Callback Number: [phone] Call Notes: patient is not feeling any better and has a few more spots that have popped up on leg documented in this encounter Plan of Treatment Upcoming Encounters Date Type Department Care Team (Late st Contact Info) Description 12/17/2024 2:10 PM CDT Office Visit [facility] [address] [place] [phone] Kacy Lazo FNP [address] [place] [phone] 01/26/2025 8:40 AM TURN LASTER Office Visit [facility] Gastroenterology- [place] [address] [phone] Robert Estrada MD [address] [phone] documented as of this encounter Visit Diagnoses Not on filedocumented in this encounter Care Teams Nitriles Lab Technician Relationship Specialty Start Date End Date Francisco Mckinley DO [address] [place] [phone] PCP - General 06/07/20 documented as of this encounter
--- OUTSIDE RECORDS SUMMARY | 2024-12-04 13:15 | XMS_ITS | Encounter Summary ---
Author Organization [facility] Address [address] [place] [address] Care Team Providers Care Anthropometrist Name Role Phone Francisco Mckinley DO Primary Care Provider [phone] Reason for Visit * Reason Onset Date Comments Medication Refill 12/04/2024 Encounter Details Date Type Department Care Team (Late st Contact Info) Description 12/04/[address] [phone] Francisco Mckinley DO [address] [place] [phone] Shortness of breath; Closed fracture of left ankle, sequela; Encounter for deep vein thrombosis prophylaxis; Acquired hypothyroidism; Portal hypertension (CMS/HCC); Lymphedema of both lower extremities Social History Tobacco Use Types Packs/Day Years [...] on file 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 Gender Identity Not on file Sexual Orientation Not on file documented as of this encounter Plan of Treatment Upcoming Encounters Date Type Department Care Team (Late st Contact Info) Description 12/17/2024 2:10 PM CDT Office Visit [facility] Family Medicine [place] [address] [place] [phone] Kacy Lazo, MACHINE ENGRAVER [address] [place] [phone] 01/26/2025 8:40 AM BRICK CLEANER Office Visit [facility] Gastroenterology- [address] [place] [address] [place] [phone] Robert Estrada MD [address] [facility] [address] [place] [address] documented as of this encounter Visit Diagnoses Diagnosis Shortness of breath Closed fracture of left ankle, sequela Encounter for deep vein thrombosis prophylaxis Acquired hypothyroidism Unspecified hypothyroidism Portal hypertension (CMS/HCC) Portal hypertension Lymphedema of both lower extremities documented in this encounter Care Teams Anthropometrist Relationship Specialty Start Date End Date Francisco Mckinley DO [address] [place] [address] PCP - General 06/07/20 documented as of this encounter
--- OUTSIDE RECORDS SUMMARY | 2024-12-04 13:15 | XMS_ITS | Encounter Summary ---
Author Organization [facility] Address 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 Topic: CPA Information Request >> Oct 10, 2024 12:30 PM Enedina Royal wrote: Caller is returning phone call from clinic. Caller Name: pt Patient/Caregiver Callback Number: Telephone Information: Patient Has Additional Questions Are the credentials of the caregiver who talked to the patient senior ux developer? No Call Notes: Patient/Caller requires a call back to discuss a medication that was suppose to be called in for her fractured leg and foot. Pt is needing a call back please. documented in this encounter Plan of Treatment Upcoming Encounters Date Type Department Care Team (Late st Contact Info) Description 12/17/2024 2:10 PM CDT Office Visit [facility] Medicine [place] [address] [place] [phone] Kacy Lazo FNP [address] [place] [phone] 01/26/2025 8:40 AM DIRECTOR HR COMMUNICATIONS Office Visit [facility] Gastroenterology- [place] [address] [phone] Robert Estrada MD [address] [phone] documented as of this encounter Visit Diagnoses Not on filedocumented in this encounter Care Teams Small Arms Repairer Relationship Specialty Start Date End Date Francisco Mckinley DO [address] [place] [phone] PCP - General 06/07/20 documented as of this encounter
--- OUTSIDE RECORDS SUMMARY | 2024-12-04 13:15 | XMS_ITS | Encounter Summary ---
Author Organization [facility] Address [address] [place] [address] Care Team Providers Care Pcb Design Engineer Name Role Phone Francisco Mckinley DO Primary Care Provider [phone] Reason for Visit * Reason Comments Medication Assistance Patient Communication Medication Question Encounter Details Date Type Department Care Team (Late st Contact Info) Description 12/02/2024 Telephone [facility] Medicine [address] [phone] Francisco Mckinley DO [address] [place] [phone] Medication Assistance; Patient Communication; Medication Question Social History Tobacco Use Types Packs/Day [...] any time in the past 12 [facility], were you homeless or living in a detention (including now)? 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 Topic: Medication Request >> Dec 04, 2024 11:21 AM Gio Mario wrote: Caller Name: Patient Callback Number: [phone] Medication (Ask patient/caregiver to spell if possible): morphine (MS CONTIN) 100 mg Controlled Release tablet Note: All medication prescriptions can be requested using one [facility] Preferred Pharmacy: [facility] [address] Call Notes: Caller is checking the status of a prescription request sent on date 12/03/2024. Patient is calling in about requesting a refill on her medications and states she has not heard anything back. Review the medication to determine if prescription has been sent to the pharmacy. Has the prescription been sent to the pharmacy? No, more than 48 hours since prescription request sent to clinic Is there an encounter open? Yes * Telephone Encounter - Daily Flores LPN - 12/03/2024 2:27 PM CDT 12/03/2024 2:27 PM Returned call and spoke with patient. Patient calling requesting to get her morphine filled was tearful and said that she called it in on the and it is crazy that she has to call and beg all the time to get her medications filled. Daily CASANOVA * Telephone Encounter - Mariana Hamilton - 12/03/2024 2:18 PM CDT Copied from [facility] #[id number]. Topic: CPA Information Request >> Dec 03, 2024 2:18 PM Mariana Gloria wrote: Caller is returning phone call from clinic. Caller Name: pt Patient/Caregiver Callback Number: [phone] Patient Has Additional Questions Are the credentials of the caregiver who talked to the patient bank secrecy act officer? Yes Call Notes: Patient/Caller requires a call back to discuss previous call * Telephone Encounter - Daily Flores LPN - 12/03/2024 1:36 PM CDT 12/03/2024 1:36 PM Returned call and spoke with Berhane. Discussed Dr. Galvez message. Voiced understanding. Daily CASANOVA * Telephone Encounter - Francisco Mckinley DO - 12/03/2024 1:01 PM CDT Yes, ok to be on imitrex, but if insurance will cover alternative such as Nurtec or Ubrelvy, then that would be better option. * Telephone Encounter - Audelia Flores - 12/02/2024 1:47 PM CDT Copied from [facility] #[id number]. Topic: Medication Request >> Dec 02, 2024 1:45 PM Audelia Carlson wrote: [facility] [place] [place] - [address] [facility] Contact Name: Berhane Pharmacy Number: [phone] Medication: SUMAtriptan (Imitrex) 50 mg tablet Call Notes: needing to know that since pt has diagnoses hypertension if they still want pt to be onthis mediation - for insurance Is the patient there at the pharmacy waiting to fill a prescription? No Is there an encounter open? No documented in this encounter Plan of Treatment Upcoming Encounters Date Type Department Care Team (Late st Contact Info) Description 12/17/2024 2:10 PM CDT Office Visit [facility] [place] [address] [place] [phone] Kacy Lazo FNP [address] [place] [phone] 01/26/2025 8:40 AM FRONT END SOFTWARE ENGINEER Office Visit [facility] [place] [address] [phone] Robert Estrada MD [address] [phone] documented as of this encounter Visit Diagnoses Not on filedocumented in this encounter Care Teams Pcb Design Engineer Relationship Specialty Start Date End Date Francisco Mckinley DO [address] [place] [phone] PCP - General 06/07/20 documented as of this encounter
[2024-12-04] MEDS: LORazepam 1 MG/0.5 ML injection IVP (13:36)
[2024-12-04] MEDS: orphenadrine 30 mg/mL Inj 2 mL 60 MG IM (13:38)
[2024-12-04 13:51] LABS: Hematocrit 41.0 % (36-47); Hemoglobin 14.10 g/dL (11.27-16.99); Mean Corpuscular HGB Conc 34.4 g/dL (30-55); Mean Corpuscular Hemoglobin 29.2 pg (27-33); Mean Corpuscular Volume 84.9 fl (85-98); Nucleated Red Blood Cells % 0 %; Platelet Count 244 10^3/cmm (157-399); Red Blood Count 4.83 10^6/uL (3.85-5.65); White Blood Count 10.40 10^3/uL (3.29-11.43)
--- NOTE | 2024-12-04 13:52 | PC.NURSE ---
Pt yelling and grunting while rolling around in the bed at this time. Pt states that she doesn't understanding how the provider will not give her pain medication. Pt informed that the provider has ordered her Ativan, Toradol, and Norflex along with fluids. Pt answers her cell phone and stops yelling and grunting to talk on phone. Pt then resumed after handing up cellphone.
--- NOTE | 2024-12-04 13:56 | PC.NURSE ---
Xray in room, comes to nurses station to let nursing staff know that pt upset and threw her cellphone at the door. Provider and charge nurse aware of situation.
--- NOTE | 2024-12-04 14:06 | ECG_ITS ---
[facility] 2024[facility]04 Pat Name: Maribell Foreman Department: Room: Gender: Female Manufactured Buildings Repairer: : 1975 Requested By: Jocy Ahn Order Number: [id number] Janett MD: Oseas Junior M.D. Measurements Intervals Center Line Rate: 103 P: 78 ND: 128 QRS: 72 QRSD: 106 T: 58 QT: 378 QTc: 496 Interpretive Statements SINUS TACHYCARDIA LEFT ATRIAL ENLARGEMENT [-0.15mV P-WAVE IN V1/V2] MINIMAL ST DEPRESSION [0.025+ mV ST DEPRESSION] Compared to ECG 11/29/2024 07:00:11 Atrial abnormality now present ST (T wave) deviation now present Atrial-paced complex(es) or rhythm no longer present Electronically Signed On 12-06-2024 13:10:53 CDT by Oseas Junior M.D. [email or web address]
[2024-12-04 14:08] LABS: Ammonia 53 umol/L (11-51); Lactic Sepsis W/Reflex 3.2 mmol/L (0.5-2.2)
[2024-12-04 14:09] LABS: Alanine Aminotransferase 17 U/L (0-33); Albumin Level 3.6 g/dL (3.5-5.2); Alkaline Phosphatase 127 U/L (35-105); Anion Gap 15.9 (5-19); Aspartate Amino Transferase 25 U/L (0-32); Blood Urea Nitrogen 7 mg/dL (6-20); Calcium 9.3 mg/dL (8.5-10.5); Carbon Dioxide 24 mmol/L (22-29); Chloride 100 mmol/L (98-107); Creatinine Clr Calc Pharmacy 168.3034; Globulin 4.7 g/dL (1.3-4.6); Glucose 138 mg/dL (65-115); Lipase 34 U/L (13-60); Osmolality Calculated 284 mOsm/kg (285-295); Sodium 137 mmol/L (136-145); Total Protein 8.3 g/dL (6.6-8.7)
[2024-12-04 14:10] LABS: Alcohol Level < 10 mg/dL (0-10); Potassium 2.9 mmol/L (3.5-5.1)
[2024-12-04 14:13] VITALS: BP 150/105; PULSE 97; RESP 18; O2SAT 98
[2024-12-04 14:36] LABS: Magnesium 1.3 mg/dL (1.7-2.3)
--- NOTE | 2024-12-04 15:33 | PC.PHAR ---
patient had her Hydromorphine filled 12/01/24 and has called the pharmacy 5 times in the passed 3 days seeing if its filled . Pharmacy said they are waiting on Prescribing doctor's Rx
[2024-12-04 15:36] LABS: Reflex Lactate Order REFLEX LACTIC ORDERD
[2024-12-04 15:42] LABS: Glucose Urine UA Negative (Normal); Nitrate Urine Negative (Negative); Specific Gravity, Urine 1.008 (1.005-1.030)
[2024-12-04] MEDS: diphenhydrAMINE 50 mg/mL SDV 1mL IVP (15:42)
[2024-12-04] MEDS: magnesium sulfate premix 4 GM/100 ML PREMIX IV (15:47)
[2024-12-04 15:49] LABS: Add Urine Microscopic? YES
[2024-12-04 15:53] LABS: PCP Screen Urine Negative (Negative)
--- NOTE | 2024-12-04 16:19 | CTR_ITS ---
PROCEDURE INFORMATION: Exam: CT Abdomen And Pelvis Without Contrast Exam date and time: 12/04/2024 5:05 PM Age: 49 years old Clinical indication: Abdominal pain; Generalized TECHNIQUE: Imaging protocol: Computed tomography of the abdomen and pelvis without contrast. Radiation optimization: All CT scans at this facility use at least one of these dose optimization techniques: automated exposure control; mA and/or kV adjustment per patient size (includes targeted exams where dose is matched to clinical indication); or iterative reconstruction. COMPARISON: CT abdomen pelvis [facility] [id number] 03/31/2024 5:33 PM RADIATION DOSE METRICS: Total DLP (mGy-cm): 1138.53 FINDINGS: Liver: Normal. No mass. Gallbladder and biliary ducts: Normal. No calcified stones. No ductal dilation. Pancreas: Normal. No ductal dilation. Spleen: Normal. No splenomegaly. Adrenal glands: Normal. No mass. Kidneys and ureters: Normal. No hydronephrosis. Stomach and bowel: Colonic diverticulosis probably most conspicuous in sigmoid without definite significant acute inflammatory changes. Postsurgical changes of the colon in the right hemiabdomen. Appendix: No evidence of appendicitis. Intraperitoneal space: Unremarkable. No free air. No significant fluid collection. Vasculature: Aortic and coronary atherosclerosis. Lymph nodes: Unremarkable. No enlarged lymph nodes. Urinary bladder: Unremarkable as visualized. Reproductive: Unremarkable as visualized. Bones/joints: Mild degenerative changes of the lumbar vertebral bodies. Soft tissues: Fat containing umbilical hernia. Other findings: Motion artifact limits exam. Gynecologic organs likely surgically absent. CT/CT abdomen pelvis [facility] [id number] IMPRESSION: 1. Aortic and coronary atherosclerosis. 2. Colonic diverticulosis probably most conspicuous in sigmoid without definite significant acute inflammatory changes. 3. No definite acute abdominopelvic abnormality.
[2024-12-04 16:54] LABS: Lactic Acid level (Lactate) 1.8 mmol/L (0.5-2.2)
--- NOTE | 2024-12-04 17:48 | PC.NURSE ---
Per verbal order Jocy strong vaseline gauze/ 4x4 to foot then splint.
[2024-12-04 17:50] VITALS: BP 149/90; PULSE 79; O2SAT 98
== END 2024-12-04 17:52 | disposition home or self-care (01) ==
PROVIDERS: Emergency Provider Physician Assistant; PCP Family Medicine
DX: E87.21 Acute metabolic acidosis (principal); E87.6 Hypokalemia; E83.42 Hypomagnesemia; R11.0 Nausea; Z91.148 Patient's other noncompliance with medication regimen for other reason; Z87.891 Personal history of nicotine dependence; Z79.4 Long term (current) use of insulin; J44.9 Chronic obstructive pulmonary disease, unspecified; E11.9 Type 2 diabetes mellitus without complications; I10 Essential (primary) hypertension
CPT/HCPCS: 36415; 71045; 74176; 80053; 80306; 80307; 81001; 82140; 83605; 83690; 83735; 85025; 86140; 93005; 96365; 96366; 96375; 99285; 99291; J0780; J1200; J1885; J2060; J2360; J3475; J7030; J7120; J9999

== ENCOUNTER 2024-12-08 10:37 | Day surgery (SDC) | payer MEDICAID, SELFPAY ==
[2024-12-08] VITALS (9 sets, daily range): BP systolic 98–136; BP diastolic 61–85; PULSE 93–112; RESP 14–28; TEMP 36.1–36.6; O2SAT 92–99; BMI 30.1
--- NOTE | 2024-12-08 | XR_ITS ---
WS: [id number] Exam: XR ankle RT 2V [id number] Date/Time of Exam: 12/08/2024 12:00 AM Reason For Exam: OR PICS Intraoperative AP and lateral images of the RIGHT ankle are submitted. Previously noted vertical pin across the ankle mortise has been removed.
[2024-12-08] MEDS: acetaminophen 1,000 MG/100 ML PIGGYBACK 400 MG IV (11:33)
[2024-12-08 12:03] LABS: Anion Gap 14.4 (5-19); Blood Urea Nitrogen 9 mg/dL (6-20); Calcium 9.2 mg/dL (8.5-10.5); Carbon Dioxide 27 mmol/L (22-29); Chloride 101 mmol/L (98-107); Creatinine Clr Calc Pharmacy 140.2528; Glucose 143 mg/dL (65-115); Osmolality Calculated 289 mOsm/kg (285-295); Potassium 3.4 mmol/L (3.5-5.1); Sodium 139 mmol/L (136-145)
--- NOTE | 2024-12-08 12:39 | ANES.PREANE2 ---
Pre-Anesthetic Assessment Height/Weight: Height 1.78 m Weight 95.254 kg Temp Pulse Resp BP Pulse Ox O2 Del Method 97.8 F 112 H 18 136/85 92 Room Air 12/08/24 11:17 12/08/24 11:17 12/08/24 11:17 12/08/24 11:17 12/08/24 11:17 12/08/24 11:17 Preop Diagnosis: Painful hardware right foot Operation Date: 12/08/24 13:35 Proposed Procedures p Hardware Removal RIGHT Foot(Right) - Meliton Ellison DPM Familial anesthetic complications: NOne Was Beta Jadon taken within 24 hours: N/A Was Clonidine taken within 24 hours: N/A Last intake: Intake Last Liquid Date 12/07/24 Last Liquid Time 18:00 Last Solid Date 12/07/24 Last Solid Time 18:00 Social No alcohol and No tobacco Exam alert, oriented x 3, clear to auscultation bilaterally and regular rate & rhythm Pulmonary Chronic Obstructive Pulmonary Disease CV/HEM Arrythmia hx endocarditis PE cardiac pacemaker Hepatic Cirrhosis (XH cirrhosis - hep b) Anesthetic Plan ASA status: 4 Anesthesia: MAC Risk of > 500 ml blood loss (7ml/kg in children): No Medications/Allergies Home Medications ?Medication ?Instructions ?Recorded ?Confirmed ?Last Taken ?Type levothyroxine 50 mcg tablet 50 mcg PO QAM 30 days #30 tabs 08/19/23 12/05/24 12/07/24 Rx uheitq-vakizlkh-jcpfonq 1 cap PO TID 30 days #30 caps 08/19/23 12/05/24 12/07/24 Rx 3,000-9,500-15,000 unit capsule, delayed rel (Creon) albuterol sulfate 90 mcg/actuation 2 puff inhalation Q6H PRN 10/19/23 12/05/24 12/07/24 History aerosol inhaler (Ventolin HFA) Shortness Of Breath amitriptyline 75 mg tablet 75 mg PO BEDTIME 10/19/23 12/05/24 12/07/24 History doxepin 10 mg capsule 10 mg PO BEDTIME PRN Sleep 10/19/23 12/05/24 12/07/24 History cholecalciferol (vitamin D3) 1,250 50,000 unit PO Q7D 01/17/24 12/05/24 12/07/24 History mcg (50,000 unit) capsule gabapentin 300 mg capsule 600 mg PO BID 01/17/24 12/05/24 12/07/24 History insulin glargine 100 unit/mL 10 unit SUBCUT DIRECTED 09/23/24 12/05/24 12/07/24 History subcutaneous solution (Lantus U-100 Insulin) ipratropium 0.5 mg-albuterol 3 mg 3 ml inhalation Q4H 09/23/24 12/05/24 12/07/24 History (2.5 mg base)/3 mL nebulization soln isosorbide mononitrate 60 mg 60 mg PO DAILY 09/23/24 12/05/24 12/07/24 History tablet,extended release 24 hr morphine 100 mg tablet,extended 100 mg PO Q8H 09/23/24 12/05/24 12/07/24 History release (MS Contin) nifedipine 30 mg tablet,extended 30 mg PO DAILY 09/23/24 12/05/24 12/07/24 History release 24 hr (Procardia XL) spironolactone 100 mg tablet 100 mg PO DAILY 09/23/24 12/05/24 12/07/24 History (Aldactone) naloxone 4 mg/actuation nasal 4 mg intranasal Q2M PRN opioid 09/24/24 12/05/24 12/07/24 Rx spray (Narcan) overdose #2 ea Knee Scooter #1 ea 10/14/24 12/04/24 12/07/24 Rx furosemide 40 mg tablet 40 mg PO DIRECTED 10/27/24 12/05/24 12/07/24 History lamotrigine 100 mg tablet 100 mg PO DAILY 10/27/24 12/05/24 12/07/24 History (Lamictal) metoprolol tartrate 50 mg tablet 50 mg PO BID 10/27/24 12/05/24 12/07/24 History ondansetron 4 mg disintegrating 4 mg PO Q6H PRN Nausea And Vomiting 10/27/24 12/05/24 12/07/24 History tablet pantoprazole 40 mg tablet,delayed 40 mg PO DAILY 10/27/24 12/05/24 12/07/24 History release hydromorphone 4 mg tablet 4 mg PO BID PRN pain #7 tabs 10/30/24 12/05/24 12/07/24 Rx potassium chloride 20 mEq 20 meq PO DAILY 11/22/24 12/05/24 12/07/24 History tablet,extended release promethazine 25 mg tablet 25 mg PO Q6H PRN nausea and 11/29/24 12/05/24 12/07/24 Rx vomiting #20 tabs tizanidine 4 mg tablet 4 mg PO Q6H PRN Spasms 11/29/24 12/05/24 12/07/24 History magnesium oxide 400 mg PO BEDTIME #30 tabs 12/04/24 12/05/24 12/07/24 Rx Allergies Allergy/AdvReac Type Severity Reaction Status Date / Time codeine Allergy Unknown ALGY-Hives Verified 12/08/24 11:29 aspirin Allergy ALGY-Hives Verified 12/08/24 11:29 diphenhydramine (From Allergy ADR-Muscle Verified 12/08/24 11:29 Benadryl) Pain Sulfa (Sulfonamide Allergy ALGY-Swell Verified 12/08/24 11:29 Antibiotics) Lip/Tongue/Throat [facility] Anesthesia Medical History (Updated 12/08/24 @ 00:00 by LUIS FERNANDO Hollis) Hypokalemia 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) use of opiate analgesic Pain management contract signed Metabolic encephalopathy SSS (sick sinus syndrome) Presence of permanent cardiac pacemaker Seizure disorder Tobacco dependency Hypothyroidism Accidental fentanyl overdose Overdose Cardiac arrest COPD (chronic obstructive pulmonary disease) Chronically on 3 L of oxygen Smoker Thrombocytopenia Bilateral pulmonary embolism Hepatitis B Pulmonary embolism Nicotine dependence, cigarettes, with unspecified nicotine-induced disorders Chronic hepatitis B Chronic abdominal pain Chronic hip pain Leg cramps Stomach cancer Pelvic inflammatory disease Diabetes mellitus Hypertension Encephalopathy Cirrhosis Gastroesophageal reflux GI bleeding Surgical History H/O right hemicolectomy History of right hemicolectomy H/O tubal ligation History of laparotomy History of hysterectomy Family History Mother Diabetes Father CAD (coronary artery disease) Other Cancer Social History Smoking and tobacco/nicotine status: former use of tobacco/nicotine (quit 2022) Quit status (tobacco/nicotine): has quit using Year quit tobacco: 2021 Former quit date comment: 2ppd x 26 year Hx Alcohol intake: never Substance/Drug Use: never Data Anesthesia 12/08/24 11:40 BMP 12/08/24 11:40 Sodium 139 Potassium 3.4 L Chloride 101 Carbon Dioxide 27 BUN 9 Creatinine 0.6 Glucose 143 H Calcium 9.2 Cardiac Studies: Echocardiogram 02/29/24 Transesophageal Echocardiogram 10/23/23
--- NOTE | 2024-12-08 12:43 | W.PM.OPSUD ---
Surgery/Procedure H&P Update DATE OF PROCEDURE: December 08, 2024 DATE H&P PERFORMED: 11/27/24 H&P UPDATE INFORMATION: I have reviewed H&P completed within last 30 days, I have examined patient prior to procedure, No changes to prior documentation, H&P is in [facility] EMR on date indicated and Risks and benefits of the procedure reviewed PREOP DIAGNOSIS: Painful hardware right foot PLANNED PROCEDURE: Operation Date: 12/08/24 13:35 Proposed Procedures p Hardware Removal RIGHT Foot(Right) - Meliton Ellison DPM
[2024-12-08] MEDS: ceFAZolin 2,000 mg SDV 2000 MG IVP (13:10)
[2024-12-08] MEDS: BUPivacaine 0.5% INJ 30 mL INJECTION (13:11)
--- NOTE | 2024-12-08 13:20 | P.BOP_ITS ---
Date of procedure: 12/08/2024 Surgeon name: Amber SchulzPJatin Clinical Cytogenetics Director(s) name(s): Aryan Procedure(s) performed: Hardware removal was not performed as patient removed hardware on her own prior to surgery and did not inform me Description of findings: Orthopedic hardware has been removed by patient Estimated blood loss: 0 Tourniquet time: No tourniquet used Specimen(s) removed: None Post-operative diagnosis: Noncompliance
--- NOTE | 2024-12-08 14:15 | ANE.PACU2 ---
Inpatient post-anesthesia follow up: Airway intact: Yes Vital signs: Temperature 97.8 F Pulse Rate 93 Respiratory Rate 17 Blood Pressure 127/82 Pulse Oximetry 96 Oxygen Delivery Me thod Nasal Cannula Oxygen Flow Rate 3.0 Fraction of Inspir ed Oxygen Hydration adequate: Yes Nausea and vomiting: No Pain level: 1 Mental status: Baseline
--- NOTE | 2024-12-08 19:01 | P.OP_ITS ---
Operative Report Date of procedure: December 08, 2024 Surgeon: Meliton Ellison DPM Procedure: Date of procedure: 12/08/2024 Pre-op diagnosis: Painful orthopedic hardware right foot Post-op diagnosis: Same Post-op findings: No orthopedic pin in place. This had been removed prior to surgery by patient without notifying surgeon Procedure done: Planned removal orthopedic pin right foot CPT 69476?53 Implants: None Specimens removed: None Surgeon: Dr. Meliton Ellison DPM Automation And Controls Manager: Aryan Estimated blood loss: 0 Tourniquet time: 0 Complications: No intraoperative complications. However, no orthopedic hardware to remove. Patient is a 49-year-old female that has a history of right trimalleolar ankle fracture, status post Steinmann pinning. Extensive noncompliance. The patient returns to the operating room today for removal of orthopedic pin. Patient has walked on the pin leading up to today's surgery and x-rays had confirmed that the pin had migrated more proximally into the tibia. A lengthy discussion regarding the procedure, including risks and complications has been had with the patient and is noted in the recent clinic note. Written and verbal consent have been obtained. All patient questions have been answered to the patient?s satisfaction. No written or verbal guarantees have been given or implied. The patient has been NPO since midnight. The history has been reviewed and the history and physical is current. The signed consent was confirmed and placed in the patient chart. Patient imaging has been reviewed and is consistent with the diagnosis. Under mild sedation, the patient was brought into the operating room and placed on the table in the supine position. IV antibiotics were given by the anesthesia team as preoperative surgical prophylaxis. MAC sedation was then performed by the anesthesiateam. A pneumatic tourniquet was then placed about the right ankle. The operative extremity was then prepped and draped in the usual fashion. After prep, the following procedure was then performed. Attention was directed to the right foot where Steinmann pin entry site on plantar aspect of the heel was visualized. Prior to make an incision CR fluoroscopy was brought over to assess the ankle and evaluate for positioning of pin to plan incision. Upon imaging the right ankle no Steinmann pin was visualized. Fluoroscopy was used to visualize the entire tibia up to the tibial plateau. No orthopedic pin was visualized. It was determined this point that the patient had remove the pin prior to surgery without informing physician. No procedure was performed. The patient tolerated the procedure and anesthesia well and without complication. The patient was transported from the operating room to the recovery room with vital signs stable and vascular status intact to all digits of the right foot. The patient was given both written and verbal instructions to remain nonweightbearing to the operative extremity, to keep dressings/splint clean, dry and intact and to take pain medication as directed. The patient will follow-up in the outpatient setting at their scheduled appointment. The patient was discharged with my personal number and was instructed to call if any questions or issues should arise. They were discharged home once anesthesia criteria was met.
== END 2024-12-08 14:15 | disposition home or self-care (01) ==
PROVIDERS: Anesthesiology; PCP Family Medicine; Visit Provider Podiatrist Foot & Ankle Surgery
PROC: (CPT 20670; principal; 2024-12-08 13:25)
DX: T84.84XA Pain due to internal orthopedic prosthetic devices, implants and grafts, initial encounter (principal); Y70.2 Prosthetic and other implants, materials and accessory anesthesiology devices associated with adverse incidents; E03.9 Hypothyroidism, unspecified; Z79.891 Long term (current) use of opiate analgesic; I49.5 Sick sinus syndrome; Z95.0 Presence of cardiac pacemaker; G40.909 Epilepsy, unspecified, not intractable, without status epilepticus; J44.9 Chronic obstructive pulmonary disease, unspecified; Z99.81 Dependence on supplemental oxygen; Z86.74 Personal history of sudden cardiac arrest; Z86.711 Personal history of pulmonary embolism; I10 Essential (primary) hypertension; E11.9 Type 2 diabetes mellitus without complications; K21.9 Gastro-esophageal reflux disease without esophagitis; Z85.028 Personal history of other malignant neoplasm of stomach; Z87.891 Personal history of nicotine dependence; Z79.4 Long term (current) use of insulin; K74.60 Unspecified cirrhosis of liver
CPT/HCPCS: 20670; 36415; 36416; 73600; 76000; 80048; 82962; J0131; J0690; J2250; J2704; J3010; J3490; J7030; J9999

== ENCOUNTER → 2024-12-15 14:38 | Outpatient (BNVA) | payer MEDICAID, SELFPAY | PROVIDERS: PCP Family Medicine; Visit Provider Podiatrist Foot & Ankle Surgery | DX: S82.851A Displaced trimalleolar fracture of right lower leg, initial encounter for closed fracture (principal); Z91.199 Patient's noncompliance with other medical treatment and regimen due to unspecified reason; X58.XXXA Exposure to other specified factors, initial encounter | CPT/HCPCS: 99214 ==

== ENCOUNTER → 2025-01-19 13:25 | Outpatient (BNVA) | payer MEDICAID, SELFPAY | PROVIDERS: PCP Family Medicine; Visit Provider Podiatrist Foot & Ankle Surgery | DX: S82.851A Displaced trimalleolar fracture of right lower leg, initial encounter for closed fracture (principal); X58.XXXA Exposure to other specified factors, initial encounter; Z91.199 Patient's noncompliance with other medical treatment and regimen due to unspecified reason | CPT/HCPCS: 73610; 99214 ==

== ENCOUNTER 2025-02-12 16:34 | Emergency (ER) | payer MEDICAID, SELFPAY ==
--- NOTE | 2025-02-12 16:39 | W.ED.GENADLT ---
HPI - General Adult General: Chief complaint: Skin/Abscess/Foreign Body Stated complaint: R Leg Pain Blisters Time Seen by Provider: 02/12/25 16:37 Source: patient Mode of arrival: ambulatory Limitations: no limitations History of Present Illness: 49-year-old female with multiple medical issues currently on hospice states she has had some erythema and pain to her right lower leg. States that she had surgery on that ankle she has had low-grade fevers she denies any shortness of breath rates her pain a 5 out of 10 denies any worse improved factors Related Data Home Medications ?Medication ?Instructions ?Recorded ?Confirmed albuterol sulfate 90 mcg/actuation 2 puff inhalation Q6H PRN 10/19/23 01/19/25 aerosol inhaler (Ventolin HFA) Shortness Of Breath amitriptyline 75 mg tablet 75 mg PO BEDTIME 10/19/23 01/19/25 doxepin 10 mg capsule 10 mg PO BEDTIME PRN Sleep 10/19/23 01/19/25 cholecalciferol (vitamin D3) 1,250 50,000 unit PO Q7D 01/17/24 01/19/25 mcg (50,000 unit) capsule gabapentin 300 mg capsule 600 mg PO BID 01/17/24 01/19/25 insulin glargine 100 unit/mL 10 unit SUBCUT DIRECTED 09/23/24 01/19/25 subcutaneous solution (Lantus U-100 Insulin) ipratropium 0.5 mg-albuterol 3 mg 3 ml inhalation Q4H 09/23/24 01/19/25 (2.5 mg base)/3 mL nebulization soln isosorbide mononitrate 60 mg 60 mg PO DAILY 09/23/24 01/19/25 tablet,extended release 24 hr morphine 100 mg tablet,extended 100 mg PO Q8H 09/23/24 01/19/25 release (MS Contin) nifedipine 30 mg tablet,extended 30 mg PO DAILY 09/23/24 01/19/25 release 24 hr (Procardia XL) spironolactone 100 mg tablet 100 mg PO DAILY 09/23/24 01/19/25 (Aldactone) furosemide 40 mg tablet 40 mg PO DIRECTED 10/27/24 01/19/25 lamotrigine 100 mg tablet 100 mg PO DAILY 10/27/24 01/19/25 (Lamictal) metoprolol tartrate 50 mg tablet 50 mg PO BID 10/27/24 01/19/25 ondansetron 4 mg disintegrating 4 mg PO Q6H PRN Nausea And Vomiting 10/27/24 01/19/25 tablet pantoprazole 40 mg tablet,delayed 40 mg PO DAILY 10/27/24 01/19/25 release potassium chloride 20 mEq 20 meq PO DAILY 11/22/24 01/19/25 tablet,extended release tizanidine 4 mg tablet 4 mg PO Q6H PRN Spasms 11/29/24 01/19/25 Previous Rx's ?Medication ?Instructions ?Recorded levothyroxine 50 mcg tablet 50 mcg PO QAM 30 days #30 tabs 08/19/23 gurahy-moxwunjm-uzpumwf (pork) 1 cap PO TID 30 days #30 caps 08/19/23 3,000-9,500-15,000 unit capsule,del rel (Creon) naloxone 4 mg/actuation nasal 4 mg intranasal Q2M PRN opioid 09/24/24 spray (Narcan) overdose #2 ea Knee Scooter #1 ea 10/14/24 hydromorphone 4 mg tablet 4 mg PO BID PRN pain #7 tabs 10/30/24 promethazine 25 mg tablet 25 mg PO Q6H PRN nausea and 11/29/24 vomiting #20 tabs magnesium oxide 400 mg PO BEDTIME #30 tabs 12/04/24 [place] AFO #1 ea 01/19/25 cephalexin 500 mg capsule 500 mg PO TID 7 days #21 caps 02/12/25 cephalexin 500 mg capsule 500 mg PO TID 7 days #21 caps 02/12/25 Allergies Allergy/AdvReac Type Severity Reaction Status Date / Time codeine Allergy Unknown ALGY-Hives Verified 01/19/25 13:18 aspirin Allergy ALGY-Hives Verified 01/19/25 13:18 diphenhydramine (From Allergy ADR-Muscle Verified 01/19/25 13:18 Benadryl) Pain Sulfa (Sulfonamide Allergy ALGY-Swell Verified 01/19/25 13:18 Antibiotics) Lip/Tongue/Throat PFSH ED PFSH: Medical History Hypokalemia 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 Pain management contract signed Metabolic encephalopathy SSS (sick sinus syndrome) Presence of permanent cardiac pacemaker Seizure disorder Tobacco dependency Hypothyroidism Accidental fentanyl overdose Overdose Cardiac arrest COPD (chronic obstructive pulmonary disease) Chronically on 3 L of oxygen Smoker Thrombocytopenia Bilateral pulmonary embolism Hepatitis B Pulmonary embolism Nicotine dependence, cigarettes, with unspecified nicotine-induced disorders Chronic hepatitis B Chronic abdominal pain Chronic hip pain Leg cramps Stomach cancer Pelvic inflammatory disease Diabetes mellitus Hypertension Encephalopathy Cirrhosis Gastroesophageal reflux GI bleeding Surgical History H/O right hemicolectomy History of right hemicolectomy H/O tubal ligation History of laparotomy History of hysterectomy Family History Mother Diabetes Father CAD (coronary artery disease) Other Cancer Social History Smoking and tobacco/nicotine status: former use of tobacco/nicotine (quit 2022) Quit status (tobacco/nicotine): has quit using Year quit tobacco: 2020 Former quit date comment: 2ppd x 26 year Hx Alcohol intake: never Substance/Drug Use: never Physical Exam Const: COMMON NORMALS: no acute distress, patient oriented x3 and healthy appearing HENMT: COMMON NORMALS: normocephalic and atraumatic HEAD & SCALP: normocephalic and atraumatic Neck/C-Spine: COMMON NORMALS: full ROM and supple Chest: COMMONS NORMALS: normal inspection of the chest Resp: COMMON NORMALS: normal respiratory effort Extremity: COMMON NORMALS: full ROM NARRATIVE EXTREMITY EXAM: Erythema warmth to right lower leg distal pulses intact Neuro: COMMON NORMALS: patient oriented x3, moves all extremities and no focal motor deficits Psych: COMMON NORMALS: mental status grossly normal, Normal thought process present and cooperative THOUGHT PROCESS: Normal thought process present Skin: COMMON NORMALS: no rashes or lesions noted and no wounds GENERAL SKIN EXAM: no rashes or lesions noted Course Vital Signs: Vital signs: Vital Signs Temperature 99.3 F 02/12/25 16:40 Pulse Rate 124 H 02/12/25 16:40 Respiratory Rate 25 H 02/12/25 16:40 Blood Pressure 153/99 02/12/25 16:40 Pulse Oximetry 96 02/12/25 16:40 Oxygen Delivery Me thod Room Air 02/12/25 16:40 MDM - General Adult Medical Decision Making Patient presents here with right leg pain differential includes DVT, cellulitis, arterial occlusion. She has no signs of DVT here she has distal pulse sensation intact leg is warm to touch likely has a cellulitis. Did give patient IM Rocephin will prescribe Keflex she is currently on hospice. She is to follow-up with hospice and return if worsening she understands agrees plan Medical Records I reviewed the patient's medical records. No radiology studies performed this visit Discharge Plan Discharge Patient Disposition: Home Clinical Impression: Cellulitis of leg, right Condition: Stable Prescriptions: New cephalexin 500 mg capsule 500 mg PO TID 7 Days Qty: 21 0RF cephalexin 500 mg capsule 500 mg PO TID 7 Days Qty: 21 0RF No Action (DME) Misty AFO See Rx Instructions .Route .MEDSUPPLY Qty: 1 0RF Rx Instructions: Directed by the Jose Bagley (DME) Knee Scooter See Rx Instructions .Route .MEDSUPPLY Qty: 1 0RF Rx Instructions: As directed by Emanuel amitriptyline 75 mg tablet 75 mg PO BEDTIME doxepin 10 mg capsule 10 mg PO BEDTIME PRN (Reason: Sleep) albuterol sulfate [Ventolin HFA] 90 mcg/actuation HFA aerosol inhaler 2 puff INHALATION Q6H PRN (Reason: Shortness Of Breath) furosemide 40 mg tablet 40 mg PO DIRECTED Rx Instructions: TAKE 3 TABLETS BY MOUTH EVERY MORNING AND TWO TABLETS IN THE AFTERNOON (WEIGH DAILY) pantoprazole 40 mg tablet,delayed release (DR/EC) 40 mg PO DAILY metoprolol tartrate 50 mg tablet 50 mg PO BID ondansetron 4 mg tablet,disintegrating 4 mg PO Q6H PRN (Reason: Nausea And Vomiting) Rx Instructions: DISSOLVE ONE TABLET BY MOUTH EVERY 6 HOURS NEEDED FOR NAUSEA AND VOMITING lamotrigine [Lamictal] 100 mg tablet 100 mg PO DAILY hydromorphone 4 mg tablet 4 mg PO BID PRN (Reason: pain) Qty: 7 0RF magnesium oxide 400 mg magnesium tablet 400 mg PO BEDTIME Qty: 30 0RF Rx Instructions: Take 1 p.o. at night levothyroxine 50 mcg tablet 50 mcg PO QAM 30 Days Qty: 30 2RF Creon 3,000-9,500- 15,000 unit capsule,delayed release(DR/EC) 1 cap PO TID 30 Days Qty: 30 0RF cholecalciferol (vitamin D3) 1,250 mcg (50,000 unit) capsule 50,000 unit PO Q7D Rx Instructions: gabapentin 300 mg capsule 600 mg PO BID ipratropium-albuterol 0.5 mg-3 mg(2.5 mg base)/3 mL solution for nebulization 3 ml inhalation Q4H Rx Instructions: use 1 vial IN NEBULIZER EVERY 4 HOURS NEEDED FOR WHEEZING OR SHORTNESS OF BREATH insulin glargine [Lantus U-100 Insulin] 100 unit/mL solution 10 unit SUBCUT DIRECTED Rx Instructions: inject 10 units SUBCUTANEOUSLY at breakfast and 40 units AT BEDTIME spironolactone [Aldactone] 100 mg Tablet 100 mg PO DAILY isosorbide mononitrate 60 mg tablet extended release 24 hr 60 mg PO DAILY morphine [MS Contin] 100 mg tablet extended release 100 mg PO Q8H Rx Instructions: max 3per day nifedipine [Procardia XL] 30 mg tablet extended release 24hr 30 mg PO DAILY naloxone [Narcan] 4 mg/actuation spray,non-aerosol 4 mg intranasal Q2M PRN (Reason: opioid overdose) Qty: 2 0RF Rx Instructions: spray 1 dose into ONE nostril; alternate nostrils w each dose until help arrives potassium chloride 20 mEq tablet extended release 20 meq PO DAILY tizanidine 4 mg tablet 4 mg PO Q6H PRN (Reason: Spasms) promethazine 25 mg tablet 25 mg PO Q6H PRN (Reason: nausea and vomiting) Qty: 20 0RF Discharge Orders: Discharge ED (Routine); Ordered 02/12/25 Ordered By: Brandon Jerez Referrals: Francisco Mckinley DO [Primary Care Provider] - 4-7 days Discharge Diet: Advance as tolerated Discharge Activity: Resume usual activity Patient Instructions: Cellulitis (ED) Print Language: Divehi Coding Level of Care Code ED Alarm Installer for 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
[2025-02-12 16:40] VITALS: BP 153/99; PULSE 124; RESP 25; TEMP 37.4; O2SAT 96; BMI 30.1
--- OUTSIDE RECORDS SUMMARY | 2025-02-12 16:40 | XMS_ITS | Encounter Summary ---
Author Organization [facility] Address [address] [place] [address] Care Team Providers Care Screen Printing Machine Operator Helper Name Role Phone Francisco Mckinley DO Primary Care Provider [phone] Reason for Visit * Reason Comments Information Encounter Details Date Type Department Care Team (Late st Contact Info) Description 09/17/2024 Telephone [facility] Medicine [address] [phone] Francisco Mckinley DO [address] [place] [phone] Information Social History Tobacco Use Types Packs/Day Years Used Date Smoking Tobacco: Former Cigarettes 0 Q uit: 03/28/2024 Passive Smoke Exposure: Never [...] Yes 02/01/2024 Housing Stability Answer Date Recorded Unable to Pay for Housing in the Last Year Not o n file 02/01/2024 Number of Times Moved in the Last Year Not on fi le 02/01/2024 At any time in the past 12 m onths, were you homeless or living in a senior living (including now)? 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 Due to Holiday and extended weekend, Dr. Mckinley called to ER, the date/time selected is 1st available for HFU * Telephone Encounter - Natalie Zamudio - 09/17/2024 4:56 PM CDT Copied from [facility] #[id number]. Topic: Established Patient Care >> Sep 17, 2024 4:54 PM Natalie Gloria wrote: [facility] Yes, select appropriate option in Discharge Facility SmartList Caller Name: Maribell Foreman Callback Number: Telephone Information: Call Notes: Discharge from [facility] ED on 09/15 Patient is High Risk Where was the patient discharged from? Emergency Department (ED/ER) Is there availability to schedule the patient within 5 calendar days of discharge? No, in person appointment not available or call came after 5 days of discharge documented in this encounter Plan of Treatment Not on file documented as of this encounter Visit Diagnoses Not on filedocumented in this encounter Care Teams Screen Printing Machine Operator Helper Relationship Specialty Start Date End Date Francisco Mckinley DO [address], [place] [address] PCP - General 06/07/20 documented as of this encounter
--- OUTSIDE RECORDS SUMMARY | 2025-02-12 16:40 | XMS_ITS | Encounter Summary ---
Author Organization [facility] Address [address] [place] [address] Care Team Providers Care School Bus Monitor Name Role Phone Francisco Mckinley DO Primary Care Provider Encounter Details Date Type Department Care Team (Late st Contact Info) Description 04/04/2024 Results Follow-Up [facility] [address] [place] [address] Meliton Mckinley MD [address] [place] [address] POC URINALYSIS DIPSTICK AUTOMATED Social [...] time in the past 12 m [facility], were you homeless or living in a assisted (including now)? Yes 02/01/2024 Feeling Safe Answer Date Recorded Are you in a relationship wi th someone who hurts you emotionally and/or physically? 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
--- OUTSIDE RECORDS SUMMARY | 2025-02-12 16:40 | XMS_ITS | Encounter Summary ---
Author Organization [facility] Address 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 Galvez message. No answer. No voicemail or answering machine. Will continue to try to contact. If patient/caregiver calls back, contact center please let them know that Dr. Mckinley said Continue taper off Dilaudid. New instructions on label. Daily CASANOVA TREASURER * Telephone Encounter - Daily Flores LPN - 02/09/2025 1:19 PM CST 02/09/2025 1:19 PM Attempted to contact patient/caregiver regarding Dr. Galvez message. No answer. No voicemail or answering machine. Will continue to try to contact. If patient/caregiver calls back, contact center please inform caller to expect a return call from the clinic. Daily CASANOVA TREASURER * Telephone Encounter - Daily Flores LPN - 02/09/2025 11:33 AM CITY TREASURER Medication Refill Request Last Fill Date:02/03/25 Recent and Future Visits: Recent Visits Date Type Provider Dept 12/24/24 Video Visit Francisco Mckinley, DO [facility] 07/07/24 Video Visit Ailyn Leon [facility] 06/27/24 Video Visit Francisco Mckinley, DO [facility] 04/03/24 Office Visit Francisco Mckinley, DO [facility] 02/01/24 Office Visit Francisco Mckinley, DO [facility] 12/27/23 Office Visit Francisco Mckinley, DO [facility] 12/13/23 Office Visit Francisco Mckinley, DO [facility] 09/27/23 Office Visit Francisco Mckinley, DO [facility] 08/23/23 Office Visit Kacy Lazo [facility] Showing recent visits within past 540 days with a meds authorizing provider and meeting all other requirements Future Appointments No visits were found meeting these conditions. Showing future appointments within next 365 days with a meds authorizing provider and meeting all other requirements TREASURER * Telephone Encounter - Nimesh Almonte - 02/09/2025 11:27 AM CST Copied from [facility] #[id number]. Topic: Medication Request >> Feb 09, 2025 11:26 AM Nimesh Diehl wrote: Caller Name: Maribell Foreman Callback Number: [phone] (mobile) Medication (Ask patient/caregiver to spell if possible): HYDROmorphone (DILAUDID) 4 mg tablet Note: All medication prescriptions can be requested using one CRM Preferred Pharmacy: [address] Call Notes: Patient calling to request medication refill. Did caller contact the correct clinic for prescribing provider? Yes Ask caller if the refill is for a controlled medication. Is this for a controlled Medication? Yes Is there an encounter open? No TREASURER documented in this encounter Plan of Treatment [...] sequela documented in this encounter Care Teams Stem Cutter Relationship Specialty Start Date End Date Francisco Mckinley DO [address] [place] [phone] PCP - General 06/07/20 documented as of this encounter
--- OUTSIDE RECORDS SUMMARY | 2025-02-12 16:40 | XMS_ITS | Clinical Summary ---
Author Organization [facility] Address [address] [place] [address] [place] [id number] Care Team Providers Care Spinner Box Name Role Phone Francisco Mckinley DO Primary Care Provider [phone] Social History Tobacco Use Types Packs/Day Years [...] 2024 Insurance Medicaid [place] ([id number]) Care Teams Spinner Box Relationship Specialty Start Date End Date Francisco Mckinley DO [address] [place] [address] PCP - General Family Medicine 07/01/21
--- OUTSIDE RECORDS SUMMARY | 2025-02-12 16:40 | XMS_ITS | Encounter Summary ---
Author Organization [facility] Address [address] [place] [address] Care Team Providers Care Certified Coatings Inspector Name Role Phone Francisco Mckinley DO Primary Care Provider [phone] Reason for Visit * Reason Comments Information Encounter Details Date Type Department Care Team (Late st Contact Info) Description 07/01/2024 Telephone [facility] Medicine [address] [phone] Francisco Mckinley DO [address] [place] [phone] Information Social History Tobacco Use Types [...] any time in the past 12 m [facility], were you homeless or living [...] on file 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 Topic: Patient or Caregiver Communication Request >> Jul 01, 2024 11:47 AM Eva T wrote: Patient or Caregiver calling to update Care team on status after a recent visit Caller: Maribell Fengiver Patient/Caregiver Callback Number: [phone] Call Notes: patient is not feeling any better and has a few more spots that have popped up on leg documented in this encounter Plan of Treatment Not on file documented as of this encounter Visit Diagnoses Not on filedocumented in this encounter Care Teams Certified Coatings Inspector Relationship Specialty Start Date End Date Francisco Mckinley DO [address] [place] [address] PCP - General 06/07/20 documented as of this encounter
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
--- OUTSIDE RECORDS SUMMARY | 2025-02-12 16:40 | XMS_ITS | Encounter Summary ---
Author Organization [facility] Address 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 Called and no answer. Please schedule another VV with Dr ORTIZ as he was unable to connect with pt. * Telephone Encounter - Gio Escoto - 12/25/2024 10:10 AM CDT Copied from [facility] #[id number]. Topic: Established Patient Care >> Dec 25, 2024 10:05 AM Gio Mario wrote: Has this patient seen any provider (current or former) at the requested clinic in the past? Yes, Select the appropriate option in Est / Follow Up Caller Name: Patient Callback Number: [phone] Caller is requesting to schedule: Office Visit Established Call Notes (Not Required): Patient stated she had a video visit yesterday but non one ever called her or messaged her and she waited for a while. Prince now wants to know if she can get scheduled today or tomorrow. 1. Offer available appointments to the patient by using the Schedule button in Primary Information section of CRM to navigate to Book It. 2. Appointment Notes: Chronic condition(s) needing follow-up or primary symptom for visit 3. Attempt to schedule an appointment using visit type Office Visit Established [130] using Team Based scheduling. If an appointment is not available within the patient's requested timeframe, offer to add patient to Waitlist. Was appointment scheduled and within the patient's requested timeframe? No Patient Access Instructions 1. Document in Call Notes why the appointment was not scheduled. 2. Select Appointment Not Scheduled Resolve Reason and Click Close CRM. documented in this encounter Plan of Treatment Not on file documented as of this encounter Visit Diagnoses Not on filedocumented in this encounter Care Teams Family Literacy Coordinator Relationship Specialty Start Date End Date Francisco Mckinley DO [address] [place] [address] PCP - General 06/07/20 documented as of this encounter
--- OUTSIDE RECORDS SUMMARY | 2025-02-12 16:40 | XMS_ITS | Encounter Summary ---
Author Organization [facility] Address 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 Topic: Medication Request >> Dec 02, 2024 1:21 PM Farnaz Benitez wrote: Caller Name: Maribell Foreman Medication (Ask patient/caregiver to spell if possible): enaxatarin sodium injection 40 mg Preferred Pharmacy: [facility] [address] Call Notes: Caller is requesting a new medication, which is not active on their medication list. Patient is - High Risk Transferred to [facility] line documented in this encounter Plan of Treatment Not on file documented as of this encounter Visit Diagnoses Diagnosis Closed fracture of left ankle, sequela- Primary Encounter for deep vein thrombosis prophylaxis documented in this encounter Care Teams Chemical Operations And Training Relationship Specialty Start Date End Date Francisco Mckinley DO [address] [place] [address] PCP - General 06/07/20 documented as of this encounter
--- OUTSIDE RECORDS SUMMARY | 2025-02-12 16:40 | XMS_ITS | Encounter Summary ---
Author Organization [facility] Address [address] [place] [address] Phone Care Team Providers Care Gambling Cashier Name Role Phone Francisco Mckinley DO Primary Care Provider [phone] Encounter Details Date Type Department Care Team (Late st Contact Info) Description 07/01/2021 Orders Only [facility] [address] [place] [address] Cirrhosis, not otherwise specified (HCC); [...] (HCC) documented in this encounter Care Teams Gambling Cashier Relationship Specialty Start Date End Date Francisco Mckinley DO [address], [place] [address] PCP - General Family Medicine 07/01/21 documented as of this encounter
[2025-02-12] MEDS: HYDROcodone-acetaminophen 5-325 mg Tablet 1 TAB PO (16:47)
[2025-02-12] MEDS: cefTRIAXone 1,000 MG in water for injection-sterile 2.1 ML 1 MG IM (16:51)
[2025-02-12 16:52] VITALS: PULSE 122; O2SAT 96
== END 2025-02-12 16:52 | disposition home or self-care (01) ==
PROVIDERS: Emergency Provider Emergency Medicine; PCP Family Medicine
DX: L03.115 Cellulitis of right lower limb (principal); Z79.4 Long term (current) use of insulin; Z87.891 Personal history of nicotine dependence; J44.9 Chronic obstructive pulmonary disease, unspecified; E11.9 Type 2 diabetes mellitus without complications; I10 Essential (primary) hypertension; Z85.028 Personal history of other malignant neoplasm of stomach
CPT/HCPCS: 96372; 99284; J0696; J9999

== ENCOUNTER 2025-02-23 11:18 | Inpatient (IN) | payer MEDICAID, SELFPAY ==
[2025-02-23] VITALS (13 sets, daily range): BP systolic 127–160; BP diastolic 82–104; PULSE 84–104; RESP 17–24; TEMP 36.7–36.9; O2SAT 94–98; BMI 33.0
--- NOTE | 2025-02-23 11:25 | PC.NURSE ---
UNABLE TO OBTAIN BP DUE TO PATIENT TOSSING AND INABILITY TO SIT STILL DURING TRIAGE.
--- NOTE | 2025-02-23 11:27 | ECG_ITS ---
[employer] Test Date: 2025-02-23 Pat Name: Maribell Foreman Department: Room: Gender: Female Air Pollution Analyst: : 1975 Requested By: Lane Boles Order Number: [id number] Janett MD: Fabian oChn M.D. Measurements Intervals [place] Rate: 103 P: 77 WV: 150 QRS: 63 QRSD: 110 T: 64 QT: 353 QTc: 464 Interpretive Statements SINUS TACHYCARDIA LEFT ATRIAL ENLARGEMENT [-0.15mV P-WAVE IN V1/V2] Compared to ECG 12/04/2024 14:06:27 NO SIGNIFICANT CHANGE Electronically Signed On 02-25-2025 22:29:37 TRACK GRINDER by Fabian Cohn M.D. [id number]
--- NOTE | 2025-02-23 11:27 | XR_ITS ---
WS: [id number] XR chest 1V portable [id number] REASON FOR EXAM: dyspnea/cough FINDINGS: The chest is unchanged compared to 12/04/2024. Cardiac device over the left chest with trans left subclavian vein leads to the right atrium and right ventricular apex. Moderate tortuosity of the ascending and descending thoracic aorta. Normal heart size. Calcified granulomatous disease bilaterally. No acute pulmonary parenchymal or pleural abnormality is identified. XR/XR chest 1V portable [id number] IMPRESSION: Stable chest without acute abnormality.
--- NOTE | 2025-02-23 11:29 | ED_ITS ---
HPI - Altered Mental Status 2 General: Chief Complaint: Altered Mental Status Stated Complaint: ams Time Seen by Provider: 02/23/25 11:18 History of Present Illness: 49-year-old female presents emergency ro om with complaints of altered mental status. She was picked up at home by EMS not really able to get any history from her. Patient has history of substance abuse in the past. She is also diabetic. She is not able to give us any history at all mumbles incoherently in response to verbal stimuli Related Data Home Medications ?Medication ?Instructions ?Recorded ?Confirmed albuterol sulfate 90 mcg/actuation 2 puff inhalation Q 6H PRN 10/19/23 02/23/25 aerosol inhaler (Ventolin HFA) Shortness Of Breath amitriptyline 75 mg tablet 75 mg PO BEDTIME 10/19/23 1 04/26/24 gabapentin 300 mg capsule 600 mg PO BID 01/17/2402/23 insulin glargine 100 unit/mL 10 unit SUBCUT DIRECTE D 09/23/24 02/23/25 subcutaneous solution (Lantus U-100 Insulin) ipratropium 0.5 mg-albuterol 3 mg 3 ml inhalation Q4H 09/23/24 02/23/25 (2.5 mg base)/3 mL nebulization soln isosorbide mononitrate 60 mg 60 mg PO DAILY 09/23/24 1 04/26/24 tablet,extended release 24 hr morphine 100 mg tablet,extended 100 mg PO Q8H 09/23/24 02/23/25 release (MS Contin) nifedipine 30 mg tablet,extended 30 mg PO DAILY 02/23/25 release 24 hr (Procardia XL) spironolactone 100 mg tablet 100 mg PO DAILY 09/23/24 02/23/25 (Aldactone) furosemide 40 mg tablet 40 mg PO DIRECTED 5 02/23/25 lamotrigine 100 mg tablet 100 mg PO DAILY 10/27/2411/10 (Lamictal) potassium chloride 20 mEq 20 meq PO DAILY 11/22/2411/10 tablet,extended release tizanidine 4 mg tablet 4 mg PO Q6H PRN Spasms 11/2902/23/25 ergocalciferol (vitamin D2) 1,250 1,250 mcg PO Q7D 11/1002/23/25 mcg (50,000 unit) capsule (Vitamin D2) prochlorperazine maleate 10 mg 10 mg PO Q6H PRN nausea /emesis 02/23/25 02/23/25 tablet silver sulfadiazine 1 % topical 1 applic topical BID 1 04/26/24 02/23/25 cream umeclidinium 62.5 mcg-vilanterol 1 inh inhalation YADIRA Y 02/23/25 02/23/25 25 mcg/actuation powdr for inhalation (Anoro Ellipta) Previous Rx's ?Medication ?Instructions ?Recorded levothyroxine 50 mcg tablet 50 mcg PO QAM 30 days #30 tabs 08/19/23 axthud-byagcywb-ghibydq (pork) 1 cap PO TID 30 days #3 0 caps 08/19/23 3,000-9,500-15,000 unit capsule,del rel (Creon) naloxone 4 mg/actuation nasal 4 mg intranasal Q2M PRN opioid 09/24/24 spray (Narcan) overdose #2 ea Knee Scooter #1 ea 10/14/24 hydromorphone 4 mg tablet 4 mg PO BID PRN pain #7 tabs 10/30/24 magnesium oxide 400 mg PO BEDTIME #30 tabs 0 12/04/24 [place] AFO #1 ea 01/19/25 Allergies Allergy/AdvReac Type Severity Reaction Status Date / Time codeine Allergy Unknown ALGY-Hives Verified 01/19/25 13:18 aspirin Allergy ALGY-Hives Verified 01/19/25 13:18 diphenhydramine (From Allergy ADR-Muscle Verified 01/19/25 13:18 Benadryl) Pain Sulfa (Sulfonamide Allergy ALGY-Swell Verified 01/19/25 13:18 Antibiotics) Lip/Tongue/Throat Review of Systems 2 General: Reports: ROS unobtainable due to mental status PFSH ED 2 PFSH: Medical History Hypokalemia 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 Pain management contract signed Metabolic encephalopathy SSS (sick sinus syndrome) Presence of permanent cardiac pacemaker Seizure disorder Tobacco dependency Hypothyroidism Accidental fentanyl overdose Overdose Cardiac arrest COPD (chronic obstructive pulmonary disease) Chronically on 3 L of oxygen Smoker Thrombocytopenia Bilateral pulmonary embolism Hepatitis B Pulmonary embolism Nicotine dependence, cigarettes, with unspecified nicotine-induced disorders Chronic hepatitis B Chronic abdominal pain Chronic hip pain Leg cramps Stomach cancer Pelvic inflammatory disease Diabetes mellitus Hypertension Encephalopathy Cirrhosis Gastroesophageal reflux GI bleeding Surgical History H/O right hemicolectomy History of right hemicolectomy H/O tubal ligation History of laparotomy History of hysterectomy Family History Mother Diabetes Father CAD (coronary artery disease) Other Cancer Social History Smoking and tobacco/nicotine status: former use of tobacco/nicotine (quit 2022) Quit status (tobacco/nicotine): has quit using Year quit tobacco: 2020 Former quit date comment: 2ppd x 26 year Hx Alcohol intake: never Substance/Drug Use: never Physical Exam 2 Const: GENERAL APPEARANCE: cooperative, comfortable and lethargic O RIENTATION/CONSCIOUSNESS: Yes confused and Yes lethargic; not oriented to person, not oriented to place and not oriented to time HENMT: COMMON NORMALS: normocephalic, atraumatic and hearing grossly normal bilaterally HEAD & SCALP: normocephalic and atraumatic Resp: COMMON NORMALS: normal respiratory effort, No retractions, No use of accessory muscles and clear to auscultation bilaterally AUSCULTATION: clear to auscultation bilaterally Cardio: COMMON NORMALS: regular rhythm and No murmurs present (Cardio) R ATE: tachycardic RHYTHM: regular rhythm GI: COMMON NORMALS: Soft to palpation and No hepatosplenomegaly present A USCULTATION: Yes normoactive bowel sounds PALPATION: Yes Soft to palpation, No Tenderness to palpation present (GI), No Guarding due to palpation present (GI) and Yes No hepatosplenomegaly present Extremity: COMMON NORMALS: normal to inspection, capillary refill normal, no clubbing, cyanosis or edema, no calf tenderness and no pedal edema Neuro: SENSORIUM/ORIENTATION: No oriented to person, No oriented to place, No oriented to time and Yes lethargic Skin: COMMON NORMALS: no rashes or lesions noted GENERAL SKIN EXAM: no rashes or lesions noted Course 2 Vital Signs: Vital signs: Vital Signs Temperature 97.8 F 02/24/25 07:22 Pulse Rate 84 02/24/25 07:22 Respiratory Rate 17 02/24/25 07:22 Blood Pressure 130/88 02/24/25 07:22 Pulse Oximetry 95 02/24/25 07:22 Oxygen Delivery Me thod Room Air 02/24/25 07:22 MDM - Altered Mental Status Medical Decision Making Medical decision making Social determinants: Patient has poor social support. Multiple medical problems in the past. Homelessness I reviewed the patient's medical record. I reviewed the patient's current home meds. Alternate historians: EMS Differential diagnosis: Substance abuse, sepsis, DKA, metabolic encephalopathy Lab Review: No leukocytosis. Mild hypercapnia well compensated. No evidence of acute DKA. Alk phos slightly elevated ammonia level increased at 81 T. bili normal AST slightly elevated ALT is normal. Toxicology positive for opioids and methamphetamines UA negative for signs of infection. Imaging:No leukocytosis. ABG chest x-ray unremarkable ankle x-ray shows significant deterioration of old fracture CT done shows significant breakdown and nonunion from previous fracture. Assessment of risk Level of risk: High Hospitalization considerations: Potential for admission significant pending completion of workup. Reexamination: Slightly improved patient is now verbal but still not coherent Assessment and plan: Suspect patient's condition is due to methamphetamine and opioid use. She also does have an elevated ammonia level which could contribute to this we will place her on observation she will need to be monitored for this. Ankle was x-rayed because there is noted to be some moderate swelling that appears to be chronic. Patient has a known history of a previous ankle fracture on the right. Unfortunately there was significant breakdown postoperatively due to noncompliance with postop care. I contacted Dr. Ellison. Initial plain film suggested osteomyelitis CT suggested same however CRP is not significantly elevated white count is normal. Dr. Ellison reviewed the films he feels this is breakdown from her previous fracture and does not represent a septic joint. He was consulted in the emergency room and will be consulted on admission to follow along with the patient. Reviewed the findings and discussed with hospitalist orders written Lab Data 02/24/25 04:50 02/24/25 04:50 Radiology Impressions Chest X-Ray 02/23/25 11:27 IMPRESSION: Stable chest without acute abnormality. Ankle X-Ray 02/23/25 11:29 IMPRESSION: Very likely septic arthritis of the tibiotalar joint with osteomyelitis of the tibia. Ankle CT 02/23/25 12:08 IMPRESSION: 1. Destructive bony process centered at and involving the tibiotalar joint. Significant loss of bone with destruction since 10/28/2020. Highly suspicious for septic joint with osteomyelitis causing the destruction. 2. Linear tract in the distal tibia from prior instrumentation which has been removed. 3. Loss of the normal cortex of the distal fibula consistent with osteomyelitis. Nonunion fracture with displacement distal fibula fracture. 4. Loss of the normal cortical surface of the talus consistent with osteomyelitis. 5. Extensive soft tissue edema with marked synovitis. No well-circumscribed fluid collection. MRI RIGHT ankle with and contrast may provide additional information if the patient is able to cooperate for that examination. Laboratory Results WBC 7.61 10^3/uL (3.29-11.43) 02/23/25 11:24 RBC 4.76 10^6/uL (3.85-5.65) 02/23/25 11:24 Hgb 13.90 g/dL (11.27-16.99) 02/23/25 11:24 Hct 41.5 % (36-47) 02/23/25 11:24 MCV 87.2 fl (85-98) 02/23/25 11:24 MCH 29.2 pg (27-33) 02/23/25 11:24 MCHC 33.5 g/dL (30-55) 02/23/25 11:24 RDW 14.0 % (12.1-15.1) 02/23/25 11:24 Plt Count 247 10^3/cmm (157-399) 02/23/25 11:24 MPV 11.2 fL (7.4-10.4) H 02/23/25 11:24 Neut % (Auto) 53.4 % 02/23/25 11:24 Lymph % (Auto) 31.7 % 02/23/25 11:24 [place] % (Auto) 12.0 % 02/23/25 11:24 Eos % (Auto) 1.8 % 02/23/25 11:24 Baso % (Auto) 0.8 % 02/23/25 11:24 Neut # (Auto) 4.07 10^3/uL (1.8-7.7) 02/23/25 11:24 Lymph # (Auto) 2.4 10^3/uL (0.8-4.8) 02/23/25 11:24 [place] # (Auto) 0.9 10^3/uL (0.2-0.9) 02/23/25 11:24 Eos # (Auto) 0.1 10^3/uL (0.0-0.8) 02/23/25 11:24 Baso # (Auto) 0.1 10^3/uL (0.0-0.1) 02/23/25 11:24 Nucleated RBC % (auto) 0 % 02/23/25 11:24 Nucleated RBCs # 0.0 /100WBC 02/23/25 11:24 ESR 75 mm/hr (0-15) H 02/23/25 11:24 Specimen Type Arterial 02/23/25 11:44 Sample Site Radial, right 02/23/25 11:44 ABG pH 7.38 (7.35-7.45) 02/23/25 11:44 ABG pCO2 45.3 mmHg (35-45) H 02/23/25 11:44 ABG pO2 71.5 mmHg (80.0-100.0) L 02/23/25 11:44 ABG PO2/FiO2 Ratio 340 02/23/25 11:44 ABG HCO3 27.0 mmol/L (22-26) H 02/23/25 11:44 ABG O2 Saturation 93.9 02/23/25 11:44 ABG Base Excess 1.4 mmol/L (-2.0-2.0) 02/23/25 11:44 Dusty Test Pos 02/23/25 11:44 A-a O2 Gradient 3.1 mmHg (5-10) L 02/23/25 11:44 Hematocrit 42.2 % (37-47) 02/23/25 11:44 Hgb O2 Saturation 91.7 % (95-100) L 02/23/25 11:44 Carboxyhemoglobin 1.4 %THgb (0.4-20.1) 02/23/25 11:44 Methemoglobin 0.9 % (0.4-1.5) 02/23/25 11:44 Total Hemoglobin 13.8 g/dL (12-16) 02/23/25 11:44 Sodium 142.0 mmol/L (131-143) 02/23/25 11:44 Potassium 3.3 mmol/L (3.5-5.0) L 02/23/25 11:44 Glucose 89.0 mg/dL (70-115) 02/23/25 11:44 Ionized Calcium 1.2 mmol/L (1.1-1.4) 02/23/25 11:44 O2 Delivery Device Room air 02/23/25 11:44 FiO2 21.0 % 02/23/25 11:44 Group Home Worker ID [place] 02/23/25 11:44 Sodium 136 mmol/L (136-145) 02/23/25 11:24 Potassium 3.3 mmol/L (3.5-5.1) L 02/23/25 11:24 Chloride 100 mmol/L (98-107) 02/23/25 11:24 Carbon Dioxide 28 mmol/L (22-29) 02/23/25 11:24 Anion Gap 11.3 (5-19) 02/23/25 11:24 BUN 11 mg/dL (6-20) 02/23/25 11:24 Creatinine 0.6 mg/dL (0.5-0.9) 02/23/25 11:24 GFR Calculation 105.8 mL/min (90-130) 02/23/25 11:24 Glucose 82 mg/dL (65-115) 02/23/25 11:24 Calculated Osmolality 280 mOsm/kg (285-295) L 02/23/25 11:24 Lactic Acid 1.3 mmol/L (0.5-2.2) 02/23/25 11:24 Calcium 9.4 mg/dL (8.5-10.5) 02/23/25 11:24 Total Bilirubin 0.9 mg/dL (0.15-1.2) 02/23/25 11:24 AST 37 U/L (0-32) H 02/23/25 11:24 ALT 15 U/L (0-33) 02/23/25 11:24 Alkaline Phosphatase 135 U/L (35-105) H 02/23/25 11:24 Ammonia 81 umol/L (11-51) H 02/23/25 13:09 C-Reactive Protein 26.3 mg/L (0.0-4.9) H 02/23/25 11:24 Total Protein 8.6 g/dL (6.6-8.7) 02/23/25 11:24 Albumin 3.9 g/dL (3.5-5.2) 02/23/25 11:24 Globulin 4.7 g/dL (1.3-4.6) H 02/23/25 11:24 TSH 2.10 uIU/mL (0.27-4.20) 02/23/25 11:24 Urine Color Yellow (Yellow) 02/23/25 12:00 Urine Appearance Clear (CLEAR) 02/23/25 12:00 Urine pH 6.0 (5-7) 02/23/25 12:00 Ur Specific [place] 1.016 (1.005-1.030) 02/23/25 12:00 Urine Protein Negative (Negative) 02/23/25 12:00 Urine Glucose (UA) Negative (Normal) 02/23/25 12:00 Urine Ketones Negative (Negative) 02/23/25 12:00 Urine Blood Negative (Negative) 02/23/25 12:00 Urine Nitrate Negative (Negative) 02/23/25 12:00 Urine Bilirubin Negative (Negative) 02/23/25 12:00 Urine Urobilinogen 1.0 mg/dL (Negative) 02/23/25 12:00 Ur Leukocyte Esterase Negative (Negative) 02/23/25 12:00 Urine RBC 0-2 /hpf (0-2) 02/23/25 12:00 Urine WBC 6-10 /hpf (0-5) 02/23/25 12:00 Ur Squamous Epith Cells 6-10 /hpf (0-5) 02/23/25 12:00 Amorphous Sediment Not Reportable 02/23/25 12:00 Urine Bacteria 2+ /hpf (NONE) H 02/23/25 12:00 Hyaline Casts 4.95 /lpf 02/23/25 12:00 Urine Opiates Screen Positive ng/mL (Negative) H 02/23/25 12:00 Ur Barbiturates Screen Negative ng/mL (Negative) 02/23/25 12:00 Ur Phencyclidine Scrn Negative ng/mL (Negative) 02/23/25 12:00 Ur Amphetamines Screen Positive ng/mL (Negative) H 02/23/25 12:00 U Benzodiazepines Scrn Negative ng/mL (Negative) 02/23/25 12:00 Urine Cocaine Screen Negative ng/mL (Negative) 02/23/25 12:00 U Marijuana (THC) Screen Positive ng/mL (Negative) H 02/23/25 12:00 Serum Ketones Negative (Negative) 02/23/25 11:24 Influenza A (PCR) Negative (Negative) 02/23/25 12:00 Influenza Type B (PCR) Negative (Negative) 02/23/25 12:00 RSV (PCR) Negative (Negative) 02/23/25 12:00 SARS-CoV-2 (PCR) Negative (Negative) 02/23/25 12:00 All radiology interpretation(s) finalized by discharge EKG Data EKG 1: I personally reviewed and interpreted this EKG as follows: Interpretation: EKG 02/23/2025 1153 sinus tachycardia rate 103 TX interval 150 QTc [address] changes compared to previous EKG 12/04/2024 no significant change. Discharge Plan Discharge Patient Disposition: Admitted As Inpatient Admit Provider: Juan Alvarado Clinical Impression: Acute encephalopathy, Homeless, Cirrhosis of liver, Noncompliance, Arthritis of ankle, right, Positive urine drug screen, Transaminitis Condition: Stable Coding Level of Care Code ED Processing Clerk for 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
--- NOTE | 2025-02-23 11:29 | XR_ITS ---
WS: [id number] XR ankle RT min 3V* [id number] REASON FOR EXAM: Pain and swelling FINDINGS: Significant soft tissue swelling around the ankle joint. Old healed fracture of the distal fibula unchanged compared to 01/19/2025. Presumed chronic nonunion fracture of the medial malleolus. Presumed old healed fracture of the posterior malleolus. Medial shift of the tibia. Compared to the previous examination there is extensive organizing periosteal reaction along the metaphysis and metadiaphysis of the tibia. There is increased sclerosis and irregularity of the subchondral bone in the tibiotalar joint with fragmentation. XR/XR ankle RT min 3V* [id number] IMPRESSION: Very likely septic arthritis of the tibiotalar joint with osteomyelitis of the tibia.
[2025-02-23 11:46] LABS: Hematocrit 41.5 % (36-47); Hemoglobin 13.90 g/dL (11.27-16.99); Mean Corpuscular HGB Conc 33.5 g/dL (30-55); Mean Corpuscular Hemoglobin 29.2 pg (27-33); Mean Corpuscular Volume 87.2 fl (85-98); Nucleated Red Blood Cells % 0 %; Platelet Count 247 10^3/cmm (157-399); Red Blood Count 4.76 10^6/uL (3.85-5.65); White Blood Count 7.61 10^3/uL (3.29-11.43)
[2025-02-23 11:55] LABS: ABG PCO2 45.3 mmHg (35-45); ABG PH Result 7.38 (7.35-7.45); Alveolar-Arterial Oxygen Gradi 3.1 mmHg (5-10); Arterial Blood Gas Hematocrit 42.2 % (37-47); Blood Gas Allen Test Pos; Blood Gas Operator Identificat WALCI; Blood Gas Sample Site Radial, right; Blood Gas Sample Type Arterial; Carboxyhemoglobin 1.4 %THgb (0.4-20.1); Glucose Level-ABG 89.0 mg/dL (70-115); HCO3 ABG 27.0 mmol/L (22-26); Ionized Calcium Level - ABG 1.2 mmol/L (1.1-1.4); Methemoglobin 0.9 % (0.4-1.5); Oxygen Saturation ABG 93.9; PO2 ABG 71.5 mmHg (80.0-100.0); PO2 FiO2 Ratio Arterial Blood 340; Potassium Level - ABG 3.3 mmol/L (3.5-5.0); Sodium Level - ABG 142.0 mmol/L (131-143)
[2025-02-23 11:59] LABS: Alanine Aminotransferase 15 U/L (0-33); Albumin Level 3.9 g/dL (3.5-5.2); Alkaline Phosphatase 135 U/L (35-105); Aspartate Amino Transferase 37 U/L (0-32); Blood Urea Nitrogen 11 mg/dL (6-20); Calcium 9.4 mg/dL (8.5-10.5); Carbon Dioxide 28 mmol/L (22-29); Chloride 100 mmol/L (98-107); Creatinine Clr Calc Pharmacy 146.6788; Globulin 4.7 g/dL (1.3-4.6); Glucose 82 mg/dL (65-115); Lactic Sepsis W/Reflex 1.3 mmol/L (0.5-2.2); Osmolality Calculated 280 mOsm/kg (285-295); Sodium 136 mmol/L (136-145); Total Protein 8.6 g/dL (6.6-8.7)
[2025-02-23 12:00] LABS: Anion Gap 11.3 (5-19); Potassium 3.3 mmol/L (3.5-5.1)
--- NOTE | 2025-02-23 12:08 | CT_ITS ---
WS: [id number] CT RIGHT ANKLE, WITH CONTRAST HISTORY: septic joint Technique: All CT scans at [place] use at least one of these dose optimization techniques: automated exposure control; mA and/or kV adjustment per patient size (includes targeted exams where dose is matched to clinical indication); or iterative reconstruction. DLP: 179.22 mGy.cm COMPARISON: 11/06/2024, 02/23/2025 Contrast: 100 mL IV. Limited contrast bolus injection due to patient movement causing dislodgment of the IV. Severe soft tissue edema and thickening surrounding the RIGHT tibiotalar joint. There is complete destruction of the normal cortex of the distal tibia. Cortical destruction involving a large portion of the talar dome. There is bone upon bone and slight invagination at the tibiotalar joint. There is some callus formation suggesting there has been some healing of the fracture but there are now multiple osseous fragmentations. Linear track in the distal tibia at the site of prior instrumentation. Nonunion fracture involving the distal fibula by 9 mm. There is some callus formation but again noted is cortical destruction of the distal fibula. Marked soft tissue thickening and synovitis. No definite focal fluid collection or abscess identified. CT would provide additional information. CT/CT ankle RT w con [id number] IMPRESSION: 1. Destructive bony process centered at and involving the tibiotalar joint. Si gnificant loss of bone with destruction since 10/28/2020. Highly suspicious for septic joint with osteomyelitis causing the destruction. 2. Linear tract in the distal tibia from prior instrumentation which has been removed. 3. Loss of the normal cortex of the distal fibula consistent with osteomyeliti s. Nonunion fracture with displacement distal fibula fracture. 4. Loss of the normal cortical surface of the talus consistent with osteomyeli tis. 5. Extensive soft tissue edema with marked synovitis. No well-circumscribed fl uid collection. MRI RIGHT ankle with and contrast may provide additional inform ation if the patient is able to cooperate for that examination.
--- NOTE | 2025-02-23 12:12 | PC.NURSE ---
Cardiac monitoring placed on pt, Pt has been shifting in bed randomly, swinging arms around. Pt does not speak clearly and has been crying in bed and covering face at times. Pt educated on the cardiac monitoring lines and if pt continues to move around chance of cardiac leads falling off. Pt continues crying and tapping left foot on bed.
[2025-02-23 12:25] LABS: Glucose Urine UA Negative (Normal); Nitrate Urine Negative (Negative); Specific Gravity, Urine 1.016 (1.005-1.030)
[2025-02-23 12:29] LABS: PCP Screen Urine Negative (Negative)
[2025-02-23 12:31] LABS: Add Urine Microscopic? YES
[2025-02-23 12:34] LABS: Ketone (Acetest) Serum Negative (Negative)
[2025-02-23 13:01] LABS: Respiratory Syncytial Virus Ce NEGATIVE (Negative); SARS-CoV-2 PCR NEGATIVE (Negative)
--- NOTE | 2025-02-23 13:13 | PC.NURSE ---
Pt has taken off VS equipment x3 now. Pt educated on need of keeping VS equipment on.
[2025-02-23 13:38] LABS: Ammonia 81 umol/L (11-51)
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
--- NOTE | 2025-02-23 16:16 | PM.HP ---
Providers/Chief Complaint Primary Care Provider: Francisco Mckinley DO Chief Complaint: ams History of Present Illness Maribell Foreman is a 49 year old female With history of liver disease, polysubstance use, hypothyroidism who presents via EMS with change in mental status. Unfortunately she was noted to be mildly obtunded. Noted to have an elevated ammonia level. She also had abnormal imaging of her ankle. She did have ankle surgery in the past where she had remove the hardware. There was some discussion of a septic joint. She was evaluated by D.P.M. in the ER and noted that imaging likely suggestive of worsening arthritis and not infection. The patient is arousable with loud voice and tactile stimulation. Her vitals have been stable. Review of Systems General: Reports: ROS unobtainable due to mental status Medications/Allergies Home Medications ?Medication ?Instructions ?Recorded ?Confirmed ?Last Taken ?Type levothyroxine 50 mcg tablet 50 mcg PO QAM 30 days #30 tabs 08/19/23 02/23/25 12/07/24 Rx wtfifb-amicibbo-ndowxte (pork) 1 cap PO TID 30 days #30 caps 08/19/23 02/23/25 12/07/24 Rx 3,000-9,500-15,000 unit capsule,del rel (Creon) albuterol sulfate 90 mcg/actuation 2 puff inhalation Q6H PRN 10/19/23 02/23/25 12/07/24 History aerosol inhaler (Ventolin HFA) Shortness Of Breath amitriptyline 75 mg tablet 75 mg PO BEDTIME 10/19/23 02/23/25 12/07/24 History gabapentin 300 mg capsule 600 mg PO BID 01/17/24 02/23/25 12/07/24 History insulin glargine 100 unit/mL 10 unit SUBCUT DIRECTED 09/23/24 02/23/25 12/07/24 History subcutaneous solution (Lantus U-100 Insulin) ipratropium 0.5 mg-albuterol 3 mg 3 ml inhalation Q4H 09/23/24 02/23/25 12/07/24 History (2.5 mg base)/3 mL nebulization soln isosorbide mononitrate 60 mg 60 mg PO DAILY 09/23/24 02/23/25 12/07/24 History tablet,extended release 24 hr morphine 100 mg tablet,extended 100 mg PO Q8H 09/23/24 02/23/25 02/23/25 History release (MS Contin) nifedipine 30 mg tablet,extended 30 mg PO DAILY 09/23/24 02/23/25 12/07/24 History release 24 hr (Procardia XL) spironolactone 100 mg tablet 100 mg PO DAILY 09/23/24 02/23/25 12/07/24 History (Aldactone) naloxone 4 mg/actuation nasal 4 mg intranasal Q2M PRN opioid 09/24/24 02/23/25 12/07/24 Rx spray (Narcan) overdose #2 ea Knee Scooter #1 ea 10/14/24 02/23/25 12/07/24 Rx furosemide 40 mg tablet 40 mg PO DIRECTED 10/27/24 02/23/25 12/07/24 History lamotrigine 100 mg tablet 100 mg PO DAILY 10/27/24 02/23/25 12/07/24 History (Lamictal) hydromorphone 4 mg tablet 4 mg PO BID PRN pain #7 tabs 10/30/24 02/23/25 12/07/24 Rx potassium chloride 20 mEq 20 meq PO DAILY 11/22/24 02/23/25 12/07/24 History tablet,extended release tizanidine 4 mg tablet 4 mg PO Q6H PRN Spasms 11/29/24 02/23/25 12/07/24 History magnesium oxide 400 mg PO BEDTIME #30 tabs 12/04/24 02/23/25 12/07/24 Rx Misty AFO #1 ea 01/19/25 02/23/25 Unknown Rx ergocalciferol (vitamin D2) 1,250 1,250 mcg PO Q7D 02/23/25 02/23/25 Unknown History mcg (50,000 unit) capsule (Vitamin D2) prochlorperazine maleate 10 mg 10 mg PO Q6H PRN nausea/emesis 02/23/25 02/23/25 Unknown History tablet silver sulfadiazine 1 % topical 1 applic topical BID 02/23/25 02/23/25 Unknown History cream umeclidinium 62.5 mcg-vilanterol 1 inh inhalation DAILY 02/23/25 02/23/25 Unknown History 25 mcg/actuation powdr for inhalation (Anoro Ellipta) Allergies Allergy/AdvReac Type Severity Reaction Status Date / Time codeine Allergy Unknown ALGY-Hives Verified 01/19/25 13:18 aspirin Allergy ALGY-Hives Verified 01/19/25 13:18 diphenhydramine (From Allergy ADR-Muscle Verified 01/19/25 13:18 Benadryl) Pain Sulfa (Sulfonamide Allergy ALGY-Swell Verified 01/19/25 13:18 Antibiotics) Lip/Tongue/Throat PFSH Acute PFSH: Medical History 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 Pain management contract signed Metabolic encephalopathy SSS (sick sinus syndrome) Presence of permanent cardiac pacemaker Seizure disorder Tobacco dependency Hypothyroidism Accidental fentanyl overdose Overdose Cardiac arrest COPD (chronic obstructive pulmonary disease) Chronically on 3 L of oxygen Smoker Thrombocytopenia Bilateral pulmonary embolism Hepatitis B Pulmonary embolism Nicotine dependence, cigarettes, with unspecified nicotine-induced disorders Chronic hepatitis B Chronic abdominal pain Chronic hip pain Leg cramps Stomach cancer Pelvic inflammatory disease Diabetes mellitus Hypertension Encephalopathy Cirrhosis Gastroesophageal reflux GI bleeding Surgical History H/O right hemicolectomy History of right hemicolectomy H/O tubal ligation History of laparotomy History of hysterectomy Family History Mother Diabetes Father CAD (coronary artery disease) Other Cancer Social History Smoking and tobacco/nicotine status: former use of tobacco/nicotine (quit 2022) Quit status (tobacco/nicotine): has quit using Year quit tobacco: 2020 Former quit date comment: 2ppd x 26 year Hx Alcohol intake: never Substance/Drug Use: never Vitals/I&O/Wt Last Vital Signs Temp 98.4 F 02/23/25 11:19 Pulse 96 02/23/25 14:00 Resp 20 H 02/23/25 12:11 BP 141/104 02/23/25 14:00 Pulse Ox 96 02/23/25 14:00 O2 Del Method Room Air 02/23/25 14:00 02/23/25 02/23/25 02/23/25 06:59 14:59 22:59 Intake Total 1000 / 1000 Balance 1000 / 1000 Weight last 48 hrs Weight 104.326 kg Physical Exam Narrative: General: Lethargic, arousable HEENT: Pupils reactive, poor dentition CVS:RRR Lungs:CTA, nonlabored MSK: right ankle swollen, pain with palpation , dorsi and plantar flexionn Data 02/23/25 11:24 02/23/25 11:24 Micro: Microbiology 02/23/25 12:15 Blood Culture - Preliminary Blood SPECIMEN COLLECTED 02/23/25 12:13 Blood Culture - Preliminary Blood SPECIMEN COLLECTED A&P Assessment and plan 1. Positive urine drug screen: 2. Cirrhosis of liver: 3. Closed trimalleolar fracture: Plan: #AMS #Polysubstance use #elevated ammonia level --check ct head --start lactulose --watch labs and mental status closely #right ankle fracture --appreciate dpm eval #hypokalemia --replace and recheck #hypothyroidism --restart home medication, check tsh #DM --fsbs, ssi #liver cirrhosis --monitor lft PDMP PDMP Reviewed: Not Reviewed Attestations Medical Necessity Statement*: Nh3 Coding Level of Care Code 04317 Diagnoses Positive urine drug screen R82.5 Cirrhosis of liver K74.60 Closed trimalleolar fracture S82.853A
--- NOTE | 2025-02-23 17:32 | PC.NURSE ---
checked on pt, pt resting in bed.
[2025-02-23 18:58] LABS: Thyroid Stimulating Hormone 2.10 uIU/mL (0.27-4.20)
[2025-02-23] MEDS: lactulose oral liq 20 gm/30 mL UDC 200 GM PR (21:39)
[2025-02-23] MEDS: HYDROmorphone tab 2 MG TABLET 4 MG PO (23:12)
[2025-02-23] MEDS: ondansetron 2 mg/ML SDV 2 mL 4 MG IVP (23:13)
[2025-02-24] VITALS (15 sets, daily range): BP systolic 101–136; BP diastolic 69–97; PULSE 64–96; RESP 15–18; TEMP 36.1–36.7; O2SAT 90–98
[2025-02-24] MEDS: phenol oral Spray 177 mL 3 SPRAY MUCOUS MEM (02:44)
[2025-02-24] MEDS: lactulose oral liq 20 gm/30 mL UDC PO ×4 (03:14→22:16)
[2025-02-24 05:28] LABS: Hematocrit 36.4 % (36-47); Hemoglobin 12.10 g/dL (11.27-16.99); Mean Corpuscular HGB Conc 33.2 g/dL (30-55); Mean Corpuscular Hemoglobin 29.2 pg (27-33); Mean Corpuscular Volume 87.7 fl (85-98); Nucleated Red Blood Cells % 0 %; Platelet Count 213 10^3/cmm (157-399); Red Blood Count 4.15 10^6/uL (3.85-5.65); White Blood Count 5.42 10^3/uL (3.29-11.43)
[2025-02-24 05:49] LABS: Alanine Aminotransferase 12 U/L (0-33); Albumin Level 3.3 g/dL (3.5-5.2); Alkaline Phosphatase 106 U/L (35-105); Anion Gap 9.8 (5-19); Aspartate Amino Transferase 28 U/L (0-32); Blood Urea Nitrogen 8 mg/dL (6-20); Calcium 8.7 mg/dL (8.5-10.5); Carbon Dioxide 26 mmol/L (22-29); Chloride 105 mmol/L (98-107); Globulin 3.8 g/dL (1.3-4.6); Glucose 100 mg/dL (65-115); Magnesium 1.5 mg/dL (1.7-2.3); Osmolality Calculated 284 mOsm/kg (285-295); Sodium 138 mmol/L (136-145); Total Protein 7.1 g/dL (6.6-8.7)
[2025-02-24 06:03] LABS: Potassium 2.8 mmol/L (3.5-5.1)
--- NOTE | 2025-02-24 08:56 | CT_ITS ---
WS: [id number] CT HEAD NONCONTRAST HISTORY: ams TECHNIQUE: Contiguous axial imaging performed through the brain. Bone and soft tissue windows. Sagittal and coronal reformats reviewed. All CT scans at [facility] use at least one of these dose optimization techniques: automated exposure control; mA and/or kV adjustment per patient size (includes targeted exams where dose is matched to clinical indication); or iterative reconstruction. DLP: 1381.98 mGy.cm COMPARISON: 08/15/2023 No acute intracranial hemorrhage, midline shift or mass effect. No atrophy or prior infarcts or herniation. Ventricles: Normal size with no hydrocephalus. No inferior displacement of the cerebellar tonsils. Paranasal sinuses: As visualized are clear. Mastoid air cells: Well pneumatized. Calvarium and scalp: Skull is intact with no soft tissue edema or swelling. CT/CT head wo con* [id number] IMPRESSION: Negative head CT.
[2025-02-24] MEDS: potassium chloride premix 100 ML 25 MEQ IV (10:29)
[2025-02-24] MEDS: magnesium sulfate premix 2 GM/50 ML PIGGYBACK IV (10:29)
--- NOTE | 2025-02-24 10:38 | PC.CHAP ---
Pastoral Care Encounter/Spiritual Assessment Type of Contact [] Declined riprap man visit [] Patient/Family/Request visit [] Outpatient visit [] Follow-up visit [] Physician referral [] Code/Alert [] Routine visit [] Staff referral [] Actively dying [x] Patient sleeping [] Family support [] [] Out of room [] Palliative care [] [] Receiving care in room [] Pre-surgical visit [] Trauma [] Long length of stay [] ICU visit [] Other: Relational/Emotional Strength [] Patient feels connected with others/family/visitors/staff [] Distress [] Loneliness/isolation [] Abandonment Spirituality of Patient [] Person of Amaya [] Attends Caodaism of their Amaya [] Believes in Prayer [] Reads Bible or Anglican materials [] There are Spiritual issues to be addressed Branch Service Leader Interventions [] Prayer [] Active listening [] Non-anxious presence [] Spiritual/emotional support [] Crisis/trauma care [] Spiritual counseling [] Bereavement support [] Provided bereavement packet [] Provided Bible/devotional materials [] Provided toy/stuffed animal, coloring book to patient or family member [] Provided Communion [] Anointing/[place] [] Salvation [] Completed spiritual assessment [] Other: Impact on Illness or Injury [] Angry [] Fearful [] Anxious [] Often cries [] Exhaustion [] Unable to work [] Unable to attend faith [] Unable to walk/stand [] Unable to read [] Unable to drive [] Unable to eat/drink [] Unable to sleep [] Unable to be with family [] Patient intubated [] Other: Summary Time spent with patient
--- NOTE | 2025-02-24 11:32 | P.PN_ITS ---
Subjective 2 Subjective: 49-year-old female with history of polys ubstance use presented with elevated ammonia level and was obtunded. This morning she was evaluated at bedside. She is more awake. She is answering questions. She denies recent illicit drug use except for marijuana. We did review her UDS. She denies any vision changes headaches or abdominal pain. She was tearful at times during her visit. She does report unilateral ankle pain Vitals/I&O/Wt Last Vital Signs Temp 97.0 F L 02/24/25 11:17 Pulse 86 02/24/25 11:17 Resp 15 02/24/25 11:17 BP 134/92 02/24/25 11:17 Pulse Ox 98 02/24/25 11:17 O2 Del Method Room Air 02/24/25 11:17 02/23/25 02/24/25 02/24/25 22:59 06:59 14:59 Intake Total 1005 / 2005 290 / 290 Output Total 400 / 400 Balance 605 / 1605 290 / 290 Weight last 48 hrs Weight 110.223 kg Weight 110.251 kg Weight 104.326 kg Physical Exam 2 Narrative: General: Alert oriented x 3 HEENT: Pupils reactive, poor dentition CVS:RRR Lungs:CTA, nonlabored MSK: right ankle swollen, pain with palpation , dorsi and plantar flexion Data 02/24/25 04:50 02/24/25 04:50 Micro: Microbiology 02/23/25 12:15 Blood Culture - Preliminary Blood SPECIMEN COLLECTED 02/23/25 12:13 Blood Culture - Preliminary Blood SPECIMEN COLLECTED A&P Assessment and plan 1. Positive urine drug screen: 2. Cirrhosis of liver: 3. Closed trimalleolar fracture: Plan: #AMS #Polysubstance use #elevated ammonia level --check ct head pending -- lactulose can change to PO --monitor labs #right ankle fracture --appreciate dpm eval --will need PT eval and possible cam boot --elevated inflammatory markers, at this time septic joint less likely #hypokalemia #hypomagnesemia --replace and recheck #hypothyroidism --restart home medication, TSH stable #DM --fsbs, ssi #liver cirrhosis --monitor lft PDMP PDMP Reviewed: Not Reviewed Attestations 2 Medical Necessity Statement*: PT OT pain control Coding Level of Care Code Acute Code for Chg Fwd Diagnoses Positive urine drug screen R82.5 Cirrhosis of liver K74.60 Closed trimalleolar fracture S82.855F
[2025-02-24] MEDS: morphine ER (12 HR) 100 mg Tablet PO ×2 (12:20→20:24)
[2025-02-24] MEDS: lipase-protease-amylase Capsule 1 EACH PO ×2 (12:20→20:23)
--- NOTE | 2025-02-24 16:21 | PM.HP ---
Providers/Chief Complaint Admitting Physician: Juan Alvarado MD Primary Care Provider: Francisco Mckinley DO Chief Complaint: ams History of Present Illness Maribell Foreman is a 49 year old female Medications/Allergies Home Medications ?Medication ?Instructions ?Recorded ?Confirmed ?Last Taken ?Type levothyroxine 50 mcg tablet 50 mcg PO QAM 30 days #30 tabs 08/19/23 02/23/25 12/07/24 Rx rzsyli-gywqhmfu-tvsrhlk (pork) 1 cap PO TID 30 days #30 caps 08/19/23 02/23/25 12/07/24 Rx 3,000-9,500-15,000 unit capsule,del rel (Creon) albuterol sulfate 90 mcg/actuation 2 puff inhalation Q6H PRN 10/19/23 02/23/25 12/07/24 History aerosol inhaler (Ventolin HFA) Shortness Of Breath amitriptyline 75 mg tablet 75 mg PO BEDTIME 10/19/23 02/23/25 12/07/24 History gabapentin 300 mg capsule 600 mg PO BID 01/17/24 02/23/25 12/07/24 History insulin glargine 100 unit/mL 10 unit SUBCUT DIRECTED 09/23/24 02/23/25 12/07/24 History subcutaneous solution (Lantus U-100 Insulin) ipratropium 0.5 mg-albuterol 3 mg 3 ml inhalation Q4H 09/23/24 02/23/25 12/07/24 History (2.5 mg base)/3 mL nebulization soln isosorbide mononitrate 60 mg 60 mg PO DAILY 09/23/24 02/23/25 12/07/24 History tablet,extended release 24 hr morphine 100 mg tablet,extended 100 mg PO Q8H 09/23/24 02/23/25 02/23/25 History release (MS Contin) nifedipine 30 mg tablet,extended 30 mg PO DAILY 09/23/24 02/23/25 12/07/24 History release 24 hr (Procardia XL) spironolactone 100 mg tablet 100 mg PO DAILY 09/23/24 02/23/25 12/07/24 History (Aldactone) naloxone 4 mg/actuation nasal 4 mg intranasal Q2M PRN opioid 09/24/24 02/23/25 12/07/24 Rx spray (Narcan) overdose #2 ea Knee Scooter #1 ea 10/14/24 02/23/25 12/07/24 Rx furosemide 40 mg tablet 40 mg PO DIRECTED 10/27/24 02/23/25 12/07/24 History lamotrigine 100 mg tablet 100 mg PO DAILY 10/27/24 02/23/25 12/07/24 History (Lamictal) hydromorphone 4 mg tablet 4 mg PO BID PRN pain #7 tabs 10/30/24 02/23/25 12/07/24 Rx potassium chloride 20 mEq 20 meq PO DAILY 11/22/24 02/23/25 12/07/24 History tablet,extended release tizanidine 4 mg tablet 4 mg PO Q6H PRN Spasms 11/29/24 02/23/25 12/07/24 History magnesium oxide 400 mg PO BEDTIME #30 tabs 12/04/24 02/23/25 12/07/24 Rx Misty AFO #1 ea 01/19/25 02/23/25 Unknown Rx ergocalciferol (vitamin D2) 1,250 1,250 mcg PO Q7D 02/23/25 02/23/25 Unknown History mcg (50,000 unit) capsule (Vitamin D2) prochlorperazine maleate 10 mg 10 mg PO Q6H PRN nausea/emesis 02/23/25 02/23/25 Unknown History tablet silver sulfadiazine 1 % topical 1 applic topical BID 02/23/25 02/23/25 Unknown History cream umeclidinium 62.5 mcg-vilanterol 1 inh inhalation DAILY 02/23/25 02/23/25 Unknown History 25 mcg/actuation powdr for inhalation (Anoro Ellipta) Allergies Allergy/AdvReac Type Severity Reaction Status Date / Time codeine Allergy Unknown ALGY-Hives Verified 01/19/25 13:18 aspirin Allergy ALGY-Hives Verified 01/19/25 13:18 diphenhydramine (From Allergy ADR-Muscle Verified 01/19/25 13:18 Benadryl) Pain Sulfa (Sulfonamide Allergy ALGY-Swell Verified 01/19/25 13:18 Antibiotics) Lip/Tongue/Throat PFSH Acute PFSH: Medical History (Updated 02/24/25 @ 08:[address]affney DO) Hypokalemia 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) use of opiate analgesic Pain management contract signed Metabolic encephalopathy SSS (sick sinus syndrome) Presence of permanent cardiac pacemaker Seizure disorder Tobacco dependency Hypothyroidism Accidental fentanyl overdose Overdose Cardiac arrest COPD (chronic obstructive pulmonary disease) Chronically on 3 L of oxygen Smoker Thrombocytopenia Bilateral pulmonary embolism Hepatitis B Pulmonary embolism Nicotine dependence, cigarettes, with unspecified nicotine-induced disorders Chronic hepatitis B Chronic abdominal pain Chronic hip pain Leg cramps Stomach cancer Pelvic inflammatory disease Diabetes mellitus Hypertension Encephalopathy Cirrhosis Gastroesophageal reflux GI bleeding Surgical History H/O right hemicolectomy History of right hemicolectomy H/O tubal ligation History of laparotomy History of hysterectomy Family History Mother Diabetes Father CAD (coronary artery disease) Other Cancer Social History Smoking and tobacco/nicotine status: former use of tobacco/nicotine (quit 2022) Quit status (tobacco/nicotine): has quit using Year quit tobacco: 2020 Former quit date comment: 2ppd x 26 year Hx Alcohol intake: never Substance/Drug Use: never Vitals/I&O/Wt Last Vital Signs Temp 97.8 F 02/24/25 16:05 Pulse 85 02/24/25 16:05 Resp 17 02/24/25 16:05 BP 125/84 02/24/25 16:05 Pulse Ox 91 02/24/25 16:05 O2 Del Method Room Air 02/24/25 16:05 02/24/25 02/24/25 02/24/25 06:59 14:59 22:59 Intake Total 5 / 2005 630 / 630 Output Total 400 / 400 360 / 360 Balance 605 / 1605 270 / 270 Weight last 48 hrs Weight 110.223 kg Weight 110.251 kg Weight 104.326 kg Data 02/24/25 04:50 02/24/25 04:50 Micro: Microbiology 02/23/25 12:15 Blood Culture - Preliminary Blood NEGATIVE TO DATE 02/23/25 12:13 Blood Culture - Preliminary Blood NEGATIVE TO DATE A&P PDMP PDMP Reviewed: Not Reviewed Coding Level of Care Code Acute Code for Chg Fwd
--- NOTE | 2025-02-24 16:27 | PM.CONSULT ---
Providers/Reason For Consult Consulting Physician/Specialty*: Natalia Talavera MD/ infectious disease Reason for Consult*: septic arthritis Requesting Physician: Juan Alvarado MD Attending Physician: Juan Alvarado MD Primary Care Provider: Francisco Mckinley DO History of Present Illness History of Present Illness Maribell Foreman is a 49 year old female with PMH DM, h/o enterococcus fecalis MV endocarditis 2023 treated at [facility], past h/o IVDU, liver cirrhosis, h/o PPM, h/o being on hospice in 10/2024 when she developed a trimalleolar fracture of the right ankle which was treated with closed reduction and casting.Subsequently the ankle underwent dislocation due to non compliance with weight bearing instructions, for which she underwent percutaneous pinning on 10/23/24. Post op course marked by becoming undomiciled and self removal of splint by the patient against medical advice wherein she took out the percuatneous pin at home. Upon outpatient follow up, given her non compliance, h/o polysubstance abuse, AFO brace was ordered, however it is unknown if she followed through. Currently brought to the ER on 02/23 due to AMS. Found to have +UDS. No fever. no leukocytosis . Right ankle joint noted to be swollen upon admission, with concern for possible septic arthirtis. Review of Systems General: Reports: 10 or more systems reviewed and unremarkable except in HPI and below Medications/Allergies Home Medications ?Medication ?Instructions ?Recorded ?Confirmed ?Last Taken ?Type levothyroxine 50 mcg tablet 50 mcg PO QAM 30 days #30 tabs 08/19/23 02/23/25 12/07/24 Rx lzxahl-wsijvtlu-lufxtec (pork) 1 cap PO TID 30 days #30 caps 08/19/23 02/23/25 12/07/24 Rx 3,000-9,500-15,000 unit capsule,del rel (Creon) albuterol sulfate 90 mcg/actuation 2 puff inhalation Q6H PRN 10/19/23 02/23/25 12/07/24 History aerosol inhaler (Ventolin HFA) Shortness Of Breath amitriptyline 75 mg tablet 75 mg PO BEDTIME 10/19/23 02/23/25 12/07/24 History gabapentin 300 mg capsule 600 mg PO BID 1002/23/25 12/07/24 History insulin glargine 100 unit/mL 10 unit SUBCUT DIRECTED 09/23/24 02/23/25 12/07/24 History subcutaneous solution (Lantus U-100 Insulin) ipratropium 0.5 mg-albuterol 3 mg 3 ml inhalation Q4H 09/23/24 02/23/25 12/07/24 History (2.5 mg base)/3 mL nebulization soln isosorbide mononitrate 60 mg 60 mg PO DAILY 09/23/24 02/23/25 12/07/24 History tablet,extended release 24 hr morphine 100 mg tablet,extended 100 mg PO Q8H 09/23/24 02/23/25 02/23/25 History release (MS Contin) nifedipine 30 mg tablet,extended 30 mg PO DAILY 09/23/24 02/23/25 12/07/24 History release 24 hr (Procardia XL) spironolactone 100 mg tablet 100 mg PO DAILY 09/23/24 02/23/25 12/07/24 History (Aldactone) naloxone 4 mg/actuation nasal 4 mg intranasal Q2M PRN opioid 09/24/24 02/23/25 12/07/24 Rx spray (Narcan) overdose #2 ea Knee Scooter #1 ea 10/14/24 02/23/25 12/07/24 Rx furosemide 40 mg tablet 40 mg PO DIRECTED 10/27/24 02/23/25 12/07/24 History lamotrigine 100 mg tablet 100 mg PO DAILY 10/27/24 02/23/25 12/07/24 History (Lamictal) hydromorphone 4 mg tablet 4 mg PO BID PRN pain #7 tabs 10/30/24 02/23/25 12/07/24 Rx potassium chloride 20 mEq 20 meq PO DAILY 11/22/24 02/23/25 12/07/24 History tablet,extended release tizanidine 4 mg tablet 4 mg PO Q6H PRN Spasms 11/29/24 02/23/25 12/07/24 History magnesium oxide 400 mg PO BEDTIME #30 tabs 12/04/24 02/23/25 12/07/24 Rx Misty AFO #1 ea 01/19/25 02/23/25 Unknown Rx ergocalciferol (vitamin D2) 1,250 1,250 mcg PO Q7D 02/23/25 02/23/25 Unknown History mcg (50,000 unit) capsule (Vitamin D2) prochlorperazine maleate 10 mg 10 mg PO Q6H PRN nausea/emesis 02/23/25 02/23/25 Unknown History tablet silver sulfadiazine 1 % topical 1 applic topical BID 02/23/25 02/23/25 Unknown History cream umeclidinium 62.5 mcg-vilanterol 1 inh inhalation DAILY 02/23/25 02/23/25 Unknown History 25 mcg/actuation powdr for inhalation (Anoro Ellipta) Allergies Allergy/AdvReac Type Severity Reaction Status Date / Time codeine Allergy Unknown ALGY-Hives Verified 01/19/25 13:18 aspirin Allergy ALGY-Hives Verified 01/19/25 13:18 diphenhydramine (From Allergy ADR-Muscle Verified 01/19/25 13:18 Benadryl) Pain Sulfa (Sulfonamide Allergy ALGY-Swell Verified 01/19/25 13:18 Antibiotics) Lip/Tongue/Throat Current Medications Generic Name Dose Route Start Last Admin Trade Name Freq PRN Reason Stop Dose Admin Albuterol/Ipratropium 3 ml 02/24/25 16:00 02/24/25 15:14 Ipratropium-Albuterol 3 Ml Neb INHALATION 3 ml Q4H.RESPIRATORY JOJO Administration Lipase/Protease/Amylase 1 each 02/24/25 13:00 02/24/25 12:20 Vqvxxi-Qdxemhag-Kqkuqzf Capsule PO 1 each TID JOJO Administration Hydromorphone HCl 4 mg 02/23/25 23:03 02/23/25 23:12 Hydromorphone Tab 2 Mg Tablet PO 4 mg BID PRN Administration pain Sodium Chloride 1,000 mls @ 100 mls/hr 02/23/25 20:31 02/24/25 06:12 Sodium Chloride 0.9% IV 100 mls/hr .Q10H JOJO Administration Insulin Human Lispro 0 unit 02/23/25 18:00 02/24/25 11:33 Insulin Lispro 100 Unit/1 Ml SUBCUT Not Given TIDWM JOJO Protocol Lactulose 20 gm 02/24/25 04:00 02/24/25 10:29 Lactulose Oral Liq 20 Gm/30 Ml Udc PO 20 gm Q6H JOJO Administration Linezolid 600 mg 02/24/25 12:15 02/24/25 12:19 Linezolid 600 Mg Tablet PO 600 mg Q12H JOJO Administration Protocol Morphine Sulfate 15 mg 02/24/25 02:48 02/24/25 07:13 Morphine Ir 15 Mg Tablet PO 15 mg Q4H PRN Administration SEVERE PAIN Morphine Sulfate 100 mg 02/24/25 11:45 02/24/25 12:20 Morphine Er (12 Hr) 100 Mg Tablet PO 100 mg Q8H JOJO Administration Ondansetron HCl 4 mg 02/23/25 22:41 02/23/25 23:13 Ondansetron 2 Mg/Ml Sdv 2 Ml IVP 4 mg Q4H PRN Administration NAUSEA AND VOMITING Phenol 3 spray 02/24/25 02:22 02/24/25 02:44 Phenol Oral [place] 177 Ml MUCOUS MEM 3 spray Q2H PRN Administration SORE THROAT PFSH Acute PFSH: Medical History (Updated 02/25/25 @ 19:46 by Natalia Talavera MD) Endocarditis MV , enterococcus fecalis, 2023, treated at [facility] Hypokalemia 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 Pain management contract signed Metabolic encephalopathy SSS (sick sinus syndrome) Presence of permanent cardiac pacemaker Seizure disorder Tobacco dependency Hypothyroidism Accidental fentanyl overdose Overdose Cardiac arrest COPD (chronic obstructive pulmonary disease) Chronically on 3 L of oxygen Smoker Thrombocytopenia Bilateral pulmonary embolism Hepatitis B Pulmonary embolism Nicotine dependence, cigarettes, with unspecified nicotine-induced disorders Chronic hepatitis B Chronic abdominal pain Chronic hip pain Leg cramps Stomach cancer Pelvic inflammatory disease Diabetes mellitus Hypertension Encephalopathy Cirrhosis Gastroesophageal reflux GI bleeding Surgical History H/O right hemicolectomy History of right hemicolectomy H/O tubal ligation History of laparotomy History of hysterectomy Family History Mother Diabetes Father CAD (coronary artery disease) Other Cancer Social History Smoking and tobacco/nicotine status: former use of tobacco/nicotine (quit 2022) Quit status (tobacco/nicotine): has quit using Year quit tobacco: 2020 Former quit date comment: 2ppd x 26 year Hx Alcohol intake: never Substance/Drug Use: never Vitals/I&O/Wt Last Vital Signs Temp 97.8 F 02/24/25 16:05 Pulse 85 02/24/25 16:05 Resp 17 02/24/25 16:05 BP 125/84 02/24/25 16:05 Pulse Ox 91 02/24/25 16:05 O2 Del Method Room Air 02/24/25 16:05 02/24/25 02/24/25 02/24/25 06:59 14:59 22:59 Intake Total 1005 / 2004 630 / 630 Output Total 400 / 400 360 / 360 Balance 605 / 1605 270 / 270 Weight last 48 hrs Weight 110.223 kg Weight 110.251 kg Weight 104.326 kg Physical Exam Narrative: patient seen via telehealth. Alert Awake, dishevelled no acute distress no focal neuro deficits Ext:right ankle joint more swollen compared to left, no noted erythema, patient reports tenderness, however does wince to touch generalized as well Data 02/25/25 04:41 02/25/25 04:41 Other Labs: Radiology Impressions Chest X-Ray 02/23/25 11:27 IMPRESSION: Stable chest without acute abnormality. Ankle X-Ray 02/23/25 11:29 IMPRESSION: Very likely septic arthritis of the tibiotalar joint with osteomyelitis of the tibia. Ankle CT 02/23/25 12:08 IMPRESSION: 1. Destructive bony process centered at and involving the tibiotalar joint. Significant loss of bone with destruction since 10/28/2020. Highly suspicious for septic joint with osteomyelitis causing the destruction. 2. Linear tract in the distal tibia from prior instrumentation which has been removed. 3. Loss of the normal cortex of the distal fibula consistent with osteomyelitis. Nonunion fracture with displacement distal fibula fracture. 4. Loss of the normal cortical surface of the talus consistent with osteomyelitis. 5. Extensive soft tissue edema with marked synovitis. No well-circumscribed fluid collection. MRI RIGHT ankle with and contrast may provide additional information if the patient is able to cooperate for that examination. Head CT 02/24/25 08:56 IMPRESSION: Negative head CT. Cervical Spine X-Ray 02/25/25 11:26 IMPRESSION: Limited examination with mild degenerative disc disease. No significant malalignment. Minimal left carotid calcified plaque. Laboratory Results WBC 3.95 10^3/uL (3.29-11.43) 02/25/25 04:41 RBC 4.00 10^6/uL (3.85-5.65) 02/25/25 04:41 Hgb 11.90 g/dL (11.27-16.99) 02/25/25 04:41 Hct 37.3 % (36-47) 02/25/25 04:41 MCV 93.3 fl (85-98) D 02/25/25 04:41 MCH 29.8 pg (27-33) 02/25/25 04:41 MCHC 31.9 g/dL (30-55) 02/25/25 04:41 RDW 14.2 % (12.1-15.1) 02/25/25 04:41 Plt Count 195 10^3/cmm (157-399) 02/25/25 04:41 MPV 10.7 fL (7.4-10.4) H 02/25/25 04:41 Neut % (Auto) 47.3 % 02/25/25 04:41 Lymph % (Auto) 35.4 % 02/25/25 04:41 [place] % (Auto) 11.4 % 02/25/25 04:41 Eos % (Auto) 4.8 % 02/25/25 04:41 Baso % (Auto) 0.8 % 02/25/25 04:41 Neut # (Auto) 1.87 10^3/uL (1.8-7.7) 02/25/25 04:41 Lymph # (Auto) 1.4 10^3/uL (0.8-4.8) 02/25/25 04:41 [place] # (Auto) 0.5 10^3/uL (0.2-0.9) 02/25/25 04:41 Eos # (Auto) 0.2 10^3/uL (0.0-0.8) 02/25/25 04:41 Baso # (Auto) 0.0 10^3/uL (0.0-0.1) 02/25/25 04:41 Nucleated RBC % (auto) 0 % 02/25/25 04:41 Nucleated RBCs # 0.0 /100WBC 02/25/25 04:41 ESR 75 mm/hr (0-15) H 02/23/25 11:24 Specimen Type Arterial 02/23/25 11:44 Sample Site Radial, right 02/23/25 11:44 ABG pH 7.38 (7.35-7.45) 02/23/25 11:44 ABG pCO2 45.3 mmHg (35-45) H 02/23/25 11:44 ABG pO2 71.5 mmHg (80.0-100.0) L 02/23/25 11:44 ABG PO2/FiO2 Ratio 340 02/23/25 11:44 ABG HCO3 27.0 mmol/L (22-26) H 02/23/25 11:44 ABG O2 Saturation 93.9 02/23/25 11:44 ABG Base Excess 1.4 mmol/L (-2.0-2.0) 02/23/25 11:44 Dusty Test Pos 02/23/25 11:44 A-a O2 Gradient 3.1 mmHg (5-10) L 02/23/25 11:44 Hematocrit 42.2 % (37-47) 02/23/25 11:44 Hgb O2 Saturation 91.7 % (95-100) L 02/23/25 11:44 Carboxyhemoglobin 1.4 %THgb (0.4-20.1) 02/23/25 11:44 Methemoglobin 0.9 % (0.4-1.5) 02/23/25 11:44 Total Hemoglobin 13.8 g/dL (12-16) 02/23/25 11:44 Sodium 142.0 mmol/L (131-143) 02/23/25 11:44 Potassium 3.3 mmol/L (3.5-5.0) L 02/23/25 11:44 Glucose 89.0 mg/dL (70-115) 02/23/25 11:44 Ionized Calcium 1.2 mmol/L (1.1-1.4) 02/23/25 11:44 O2 Delivery Device Room air 02/23/25 11:44 FiO2 21.0 % 02/23/25 11:44 Pet Feeder ID [place] 02/23/25 11:44 Sodium 141 mmol/L (136-145) 02/25/25 04:41 Potassium 3.9 mmol/L (3.5-5.1) 02/25/25 04:41 Chloride 108 mmol/L (98-107) H 02/25/25 04:41 Carbon Dioxide 26 mmol/L (22-29) 02/25/25 04:41 Anion Gap 10.9 (5-19) 02/25/25 04:41 BUN 6 mg/dL (6-20) 02/25/25 04:41 Creatinine 0.5 mg/dL (0.5-0.9) 02/25/25 04:41 GFR Calculation 130.6 mL/min (90-130) H 02/25/25 04:41 Glucose 96 mg/dL (65-115) 02/25/25 04:41 POC Glucose 93 mg/dL (70-110) 02/25/25 16:29 Lactic Acid 1.3 mmol/L (0.5-2.2) 02/23/25 11:24 Calculated Osmolality 289 mOsm/kg (285-295) 02/25/25 04:41 Calcium 8.0 mg/dL (8.5-10.5) L 02/25/25 04:41 Magnesium 1.8 mg/dL (1.7-2.3) 02/25/25 04:41 Total Bilirubin 0.6 mg/dL (0.15-1.2) 02/25/25 04:41 AST 30 U/L (0-32) 02/25/25 04:41 ALT 12 U/L (0-33) 02/25/25 04:41 Alkaline Phosphatase 97 U/L (35-105) 02/25/25 04:41 Ammonia 81 umol/L (11-51) H 02/23/25 13:09 C-Reactive Protein 26.3 mg/L (0.0-4.9) H 02/23/25 11:24 Total Protein 6.7 g/dL (6.6-8.7) 02/25/25 04:41 Albumin 3.1 g/dL (3.5-5.2) L 02/25/25 04:41 Globulin 3.6 g/dL (1.3-4.6) 02/25/25 04:41 TSH 2.10 uIU/mL (0.27-4.20) 02/23/25 11:24 Urine Color Yellow (Yellow) 02/23/25 12:00 Urine Appearance Clear (CLEAR) 02/23/25 12:00 Urine pH 6.0 (5-7) 02/23/25 12:00 Ur Specific [place] 1.016 (1.005-1.030) 02/23/25 12:00 Urine Protein Negative (Negative) 02/23/25 12:00 Urine Glucose (UA) Negative (Normal) 02/23/25 12:00 Urine Ketones Negative (Negative) 02/23/25 12:00 Urine Blood Negative (Negative) 02/23/25 12:00 Urine Nitrate Negative (Negative) 02/23/25 12:00 Urine Bilirubin Negative (Negative) 02/23/25 12:00 Urine Urobilinogen 1.0 mg/dL (Negative) 02/23/25 12:00 Ur Leukocyte Esterase Negative (Negative) 02/23/25 12:00 Urine RBC 0-2 /hpf (0-2) 02/23/25 12:00 Urine WBC 6-10 /hpf (0-5) 02/23/25 12:00 Ur Squamous Epith Cells 6-10 /hpf (0-5) 02/23/25 12:00 Amorphous Sediment Not Reportable 02/23/25 12:00 Urine Bacteria 2+ /hpf (NONE) H 02/23/25 12:00 Hyaline Casts 4.95 /lpf 02/23/25 12:00 Urine Opiates Screen Positive ng/mL (Negative) H 02/23/25 12:00 Ur Barbiturates Screen Negative ng/mL (Negative) 02/23/25 12:00 Ur Phencyclidine Scrn Negative ng/mL (Negative) 02/23/25 12:00 Ur Amphetamines Screen Positive ng/mL (Negative) H 02/23/25 12:00 U Benzodiazepines Scrn Negative ng/mL (Negative) 02/23/25 12:00 Urine Cocaine Screen Negative ng/mL (Negative) 02/23/25 12:00 U Marijuana (THC) Screen Positive ng/mL (Negative) H 02/23/25 12:00 Serum Ketones Negative (Negative) 02/23/25 11:24 Influenza A (PCR) Negative (Negative) 02/23/25 12:00 Influenza Type B (PCR) Negative (Negative) 02/23/25 12:00 RSV (PCR) Negative (Negative) 02/23/25 12:00 SARS-CoV-2 (PCR) Negative (Negative) 02/23/25 12:00 Micro: Microbiology 02/23/25 12:15 Blood Culture - Preliminary Blood NEGATIVE TO DATE 02/23/25 12:13 Blood Culture - Preliminary Blood NEGATIVE TO DATE A&P Assessment and plan 1. Osteomyelitis of tibia: 2. Septic arthritis: Plan: 49F with PMH notable for h/o endocarditis 2023, h/o trimalleolar fracture as noted above s/p pinning which was removed by patient, h/o non complaiance, h/o drug use currently admitted for altered menatl status thought to be likely metabolic related to + UDS vs elevated ammonia level. Noted to have swollen right ankle joint, given recent history, elevated inflammatory markers with imaging findings, concern for potential septic arthirtis with osteomyelitis Currently no active draining tract or other openings noted, no leukocytosis, no fever may be related to inflammatory non infectious process vs chronic osteomyelitis Recommend to obtain tissue sampling/Bone biopsy/synovial aspirate if feasible to estbalish diagnosis UA without signs of UTI, CXR without infiltrates. Can continue abx while pending blood culture results. PDMP PDMP Reviewed: Not Reviewed Consult Attestations Medical Necessity Statement: per admitting note Coding Level of Care Code Acute Code for [facility] Fwd Diagnoses Osteomyelitis of tibia M86.9 Septic arthritis M00.9
[2025-02-25] VITALS (14 sets, daily range): BP systolic 102–122; BP diastolic 60–86; PULSE 83–108; RESP 15–19; TEMP 36.2–36.9; O2SAT 89–96
[2025-02-25] MEDS: NIFEdipine ER (24 hr) 30 mg Tablet PO (05:03)
[2025-02-25] MEDS: lactulose oral liq 20 gm/30 mL UDC PO ×4 (05:03→21:47)
[2025-02-25] MEDS: morphine ER (12 HR) 100 mg Tablet PO ×2 (05:04→11:39)
[2025-02-25] MEDS: lipase-protease-amylase Capsule 1 EACH PO ×3 (05:04→20:46)
[2025-02-25 05:24] LABS: Hematocrit 37.3 % (36-47); Hemoglobin 11.90 g/dL (11.27-16.99); Mean Corpuscular HGB Conc 31.9 g/dL (30-55); Mean Corpuscular Hemoglobin 29.8 pg (27-33); Mean Corpuscular Volume 93.3 fl (85-98); Nucleated Red Blood Cells % 0 %; Platelet Count 195 10^3/cmm (157-399); Red Blood Count 4.00 10^6/uL (3.85-5.65); White Blood Count 3.95 10^3/uL (3.29-11.43)
[2025-02-25 05:39] LABS: Alanine Aminotransferase 12 U/L (0-33); Albumin Level 3.1 g/dL (3.5-5.2); Alkaline Phosphatase 97 U/L (35-105); Anion Gap 10.9 (5-19); Aspartate Amino Transferase 30 U/L (0-32); Blood Urea Nitrogen 6 mg/dL (6-20); Calcium 8.0 mg/dL (8.5-10.5); Carbon Dioxide 26 mmol/L (22-29); Chloride 108 mmol/L (98-107); Globulin 3.6 g/dL (1.3-4.6); Glucose 96 mg/dL (65-115); Magnesium 1.8 mg/dL (1.7-2.3); Osmolality Calculated 289 mOsm/kg (285-295); Potassium 3.9 mmol/L (3.5-5.1); Sodium 141 mmol/L (136-145); Total Protein 6.7 g/dL (6.6-8.7)
[2025-02-25] MEDS: silver sulfadiazine cream 1% 50 gm 1 APPLIC TOPICAL ×2 (05:41→17:24)
--- NOTE | 2025-02-25 09:19 | PC.CHAP ---
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 [] Patient/Family/Request visit [] Outpatient visit [] Follow-up visit [] Physician referral [] Code/Alert [] Routine visit [] Staff referral [] Actively dying [x] Patient sleeping [] Family support [] [] Out of room [] Palliative care [] [] Receiving care in room [] Pre-surgical visit [] Trauma [] Long length of stay [] ICU visit [] Other: Relational/Emotional Strength [] Patient feels connected with others/family/visitors/staff [] Distress [] Loneliness/isolation [] Abandonment Spirituality of Patient [] Person of Amaya [] Attends Holiness of their Amaya [] Believes in Prayer [] Reads Bible or Uatsdin materials [] There are Spiritual issues to be addressed Beer Merchant Interventions [] Prayer [] Active listening [] Non-anxious presence [] Spiritual/emotional support [] Crisis/trauma care [] Spiritual counseling [] Bereavement support [] Provided bereavement packet [] Provided Bible/devotional materials [] Provided toy/stuffed animal, coloring book to patient or family member [] Provided Communion [] Anointing/[place] [] Salvation [] Completed spiritual assessment [] Other: Impact on Illness or Injury [] Angry [] Fearful [] Anxious [] Often cries [] Exhaustion [] Unable to work [] Unable to attend methodist [] Unable to walk/stand [] Unable to read [] Unable to drive [] Unable to eat/drink [] Unable to sleep [] Unable to be with family [] Patient intubated [] Other: Summary Time spent with patient
--- NOTE | 2025-02-25 11:26 | XR_ITS ---
WS: [id number] XR cervical spine 3V* [id number] REASON FOR EXAM: neck pain FINDINGS: Limited examination due to patient condition. No significant vertebral body abnormality. Disc spaces are intact with mild narrowing. Facet joints are in normal alignment. Mild degenerative arthropathy C2-C7. XR/XR cervical spine 3V* [id number] IMPRESSION: Limited examination with mild degenerative disc disease. No significant malalig nment. Minimal left carotid calcified plaque.
--- NOTE | 2025-02-25 11:33 | P.PN_ITS ---
Subjective 2 Subjective: afebrile plan for bone biopsy reports cervcal neck pain Vitals/I&O/Wt Last Vital Signs Temp 97.5 F L 02/25/25 10:59 Pulse 90 02/25/25 10:59 Resp 18 02/25/25 10:59 BP 102/60 02/25/25 10:59 Pulse Ox 92 02/25/25 10:59 O2 Del Method Nasal Cannula 02/25/25 10:59 O2 Flow Rate 2 02/25/25 05:00 02/24/25 02/25/25 02/25/25 22:59 06:59 14:59 Intake Total 1600 / 2230 911.667 / 3141.667 240 / 240 Output Total 200 / 560 Balance 1400 / 1670 911.667 / 2581.667 240 / 240 Weight last 48 hrs Weight 112.037 kg Weight 110.223 kg Weight 110.251 kg Physical Exam 2 Narrative: General: Alert oriented x 3 HEENT: Pupils reactive, poor dentition CVS:RRR Lungs:CTA, nonlabored MSK: right ankle swollen, pain with palpation , dorsi and plantar flexion posterior neck tenderness with palpation Data 02/25/25 04:41 02/25/25 04:41 Micro: Microbiology 02/23/25 12:15 Blood Culture - Preliminary Blood NEGATIVE TO DATE 02/23/25 12:13 Blood Culture - Preliminary Blood NEGATIVE TO DATE A&P Assessment and plan 1. Positive urine drug screen: 2. Cirrhosis of liver: 3. Closed trimalleolar fracture: Plan: #AMS #Polysubstance use #elevated ammonia level --better --CT head negative -- lactulose can changed to PO --monitor labs #right ankle fracture --appreciate dpm eval --will need PT eval and possible cam boot --elevated inflammatory markers, --plan for bone bx, restart abx. ID consulted #hypokalemia #hypomagnesemia --replace and recheck #hypothyroidism --restart home medication, TSH stable #DM --fsbs, ssi #liver cirrhosis --monitor lft PDMP PDMP Reviewed: Not Reviewed Attestations 2 Medical Necessity Statement*: abx Coding Level of Care Code Acute Code for Chg Fwd Diagnoses Positive urine drug screen R82.5 Cirrhosis of liver K74.60 Closed trimalleolar fracture S82.858T
--- NOTE | 2025-02-25 13:03 | P.PN_ITS ---
Subjective 2 Subjective: Patient seen at bedside. Plan for OR tomorrow for bone biopsy Vitals/I&O/Wt Last Vital Signs Temp 97.5 F L 02/25/25 10:59 Pulse 83 02/25/25 11:37 Resp 15 02/25/25 11:39 BP 102/60 02/25/25 10:59 Pulse Ox 96 02/25/25 11:29 O2 Del Method Nasal Cannula 02/25/25 11:29 O2 Flow Rate 2 02/25/25 11:29 02/24/25 02/25/25 02/25/25 22:59 06:59 14:59 Intake Total 1600 / 2230 911.667 / 3141.667 1443.333 / 1443.333 Output Total 200 / 560 Balance 1400 / 1670 911.667 / 2581.667 1443.333 / 1443.333 Weight last 48 hrs Weight 247 lb Weight 243 lb Weight 243 lb 1 oz Physical Exam 2 Narrative: BELOW IS A FOCUSED LOWER EXTREMITY EXAM GENERAL: A&O x 3 VASCULAR: DP/PT pulses palpable 2/4 with CFT intact, <3seconds to distal digits DERMATOLOGICAL: 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 No open wounds or sinus tracts. No underlying fluctuance or signs of deep space abscess MUSCULOSKELETAL: Right ankle range of motion limited secondary to arthritis NEUROLOGICAL: Neurological sensation to the affected foot and ankle is present through L4-S1 dermatomes with no hyper/hypoesthesias, negative Tinel or Valleix's sign IMAGING: X-rays of right ankle and CT scan of right ankle were independently interpreted by me. These show extensive degenerative and subchondral changes of the ankle joint Data 02/25/25 04:41 02/25/25 04:41 Micro: Microbiology 02/23/25 12:15 Blood Culture - Preliminary Blood NEGATIVE TO DATE 02/23/25 12:13 Blood Culture - Preliminary Blood NEGATIVE TO DATE A&P Assessment and plan 1. Closed trimalleolar fracture: 2. Arthritis of ankle, right: 3. Elevated erythrocyte sedimentation rate: Plan: - Previous right trimalleolar ankle fracture with now posttraumatic arthritis possible infectious process -Labs and vitals reviewed -WBC 7.6 -ESR 75 -CRP 26.3 -HR 96 -RR 20 -Tmax 98.4 -Cultures NGTD -Diet: NPO at midnight for bone biopsy right ankle tomorrow 02/26/25 -Pain Mgmt: Per primary team -With elevated ESR cannot rule out infectious process of right ankle although, I believe that it is most likely posttraumatic arthritic changes of the ankle joint. Slight CRP elevation. Other labs and vitals are unimpressive. Patient has multiple other comorbidities at this time. Given patient history of polysubstance abuse it would not be prudent to place patient on PICC line. Plan for bone biopsy tomorrow 02/26/25 to direct treatment. -Discharge plan:to be determined PDMP PDMP Reviewed: Not Reviewed Attestations 2 Medical Necessity Statement*: Surgery tomorrow for bone biopsy of right ankle Coding Level of Care Code Acute Code for [facility] Fwd Diagnoses Closed trimalleolar fracture S82.853A Arthritis of ankle, right M19.071 Elevated erythrocyte sedimentation rate R70.0
--- NOTE | 2025-02-25 19:57 | P.PN_ITS ---
Subjective 2 Subjective: ID progress note Patient planned for bone biopsy in the OR Vitals/I&O/Wt Last Vital Signs Temp 98.5 F 02/25/25 19:28 Pulse 96 02/25/25 19:37 Resp 17 02/25/25 19:30 BP 120/67 02/25/25 19:28 Pulse Ox 95 02/25/25 19:37 O2 Del Method Nasal Cannula 02/25/25 19:30 O2 Flow Rate 3 02/25/25 19:37 02/25/25 02/25/25 02/25/25 06:59 14:59 22:59 Intake Total 911.667 / 3141.667 1443.333 / 1443.333 240 / 1683.333 Output Total 800 / 800 Balance 911.667 / 2581.667 1443.333 / 1443.333 -560 / 883.333 Weight last 48 hrs Weight 112.037 kg Weight 110.223 kg Weight 110.251 kg Physical Exam 2 Narrative: patient seen via telehealth. Alert Awake oriented at this time no acute distress no focal neuro deficits Ext:right ankle joint more swollen compared to left, overall unchanged exam compared to 02/24 Data 02/25/25 04:41 02/25/25 04:41 A&P Assessment and plan 1. Osteomyelitis of tibia: 2. Septic arthritis: Plan: 49F with PMH notable for h/o endocarditis 2023, h/o trimalleolar fracture as noted above s/p pinning which was removed by patient, h/o non complaiance, h/o drug use currently admitted for altered menatl status thought to be likely metabolic related to + UDS vs elevated ammonia level. Noted to have swollen right ankle joint, given recent history, elevated inflammatory markers with imaging findings, concern for potential septic arthirtis with osteomyelitis Currently no active draining tract or other openings noted, no leukocytosis, no fever may be related to inflammatory non infectious process vs chronic osteomyelitis Recommend to obtain tissue sampling/Bone biopsy/synovial aspirate if feasible to estbalish diagnosis UA without signs of UTI, CXR without infiltrates. Can continue abx while pending blood culture results. 02/25/25: Afebrile, no leukocytosis, patient planned for bone biopsy and culture in the OR with podiatry. Blood culture remains negative thus far. Consider holding Linezolid while pending biopsy and culture as likely to be highest yield off abx. will follow PDMP PDMP Reviewed: Not Reviewed Attestations 2 Medical Necessity Statement*: per admitting note Coding Level of Care Code Acute Code for g Fwd Diagnoses Osteomyelitis of tibia M86.9 Septic arthritis M00.9
[2025-02-26] VITALS (12 sets, daily range): BP systolic 98–139; BP diastolic 58–85; PULSE 84–115; RESP 16–19; TEMP 36.4–37.2; O2SAT 90–95
[2025-02-26] MEDS: artificial tears Op Soln 15 mL Btl 1 DROP EYE-BOTH (05:17)
[2025-02-26 06:07] LABS: Hematocrit 34.0 % (36-47); Hemoglobin 11.00 g/dL (11.27-16.99); Mean Corpuscular HGB Conc 32.4 g/dL (30-55); Mean Corpuscular Hemoglobin 29.7 pg (27-33); Mean Corpuscular Volume 91.9 fl (85-98); Nucleated Red Blood Cells % 0 %; Platelet Count 157 10^3/cmm (157-399); Red Blood Count 3.70 10^6/uL (3.85-5.65); White Blood Count 6.55 10^3/uL (3.29-11.43)
[2025-02-26 06:35] LABS: Alanine Aminotransferase 11 U/L (0-33); Albumin Level 2.9 g/dL (3.5-5.2); Alkaline Phosphatase 97 U/L (35-105); Anion Gap 13.2 (5-19); Aspartate Amino Transferase 30 U/L (0-32); Blood Urea Nitrogen 4 mg/dL (6-20); Calcium 8.0 mg/dL (8.5-10.5); Carbon Dioxide 24 mmol/L (22-29); Chloride 108 mmol/L (98-107); Globulin 3.4 g/dL (1.3-4.6); Glucose 92 mg/dL (65-115); Magnesium 1.5 mg/dL (1.7-2.3); Osmolality Calculated 289 mOsm/kg (285-295); Potassium 4.2 mmol/L (3.5-5.1); Sodium 141 mmol/L (136-145); Total Protein 6.3 g/dL (6.6-8.7)
[2025-02-26 07:02] LABS: HCG, Serum Qual Negative (Negative)
[2025-02-26 07:03] LABS: Slide Review Slide Review Perform
--- NOTE | 2025-02-26 07:40 | ANES.PREANE2 ---
Pre-Anesthetic Assessment Height/Weight: Height 5 ft 10 in Weight 251 lb Temp Pulse Resp BP Pulse Ox O2 Del Method O2 Flow Rate 98.1 F 91 16 112/58 95 Oxymask 3 02/26/25 04:00 02/26/25 04:40 02/26/25 04:40 02/26/25 04:00 02/26/25 04:40 02/26/25 04:40 02/26/25 04:40 Preop Diagnosis: Septic ankle Operation Date: 02/26/25 07:55 Proposed Procedures p Right Ankle Bone Biospy(Right) - Meliton Ellison, DPM Was Beta Jadon taken within 24 hours: N/A Was Clonidine taken within 24 hours: N/A Social Tobacco and No alcohol Exam alert, oriented x 3, clear to auscultation bilaterally and regular rate & rhythm Airway Submandibular: within normal limits Cervical ROM: within normal limits Mallampati: Class II Comments: Comments: Edentulous, very chapped lips Anesthetic Plan ASA status: 4 Anesthesia: MAC Other: Patient admitted 02/25/2025 with trimalleolar fracture and acute methamphetamine intoxication Patient canceled yesterday due to extreme drowsiness, much improved today When asked about substance abuse she told me she does not use any drugs. Has not used any in 25 years she states Patient is able to tell us who she is, where she had, the date. When asked to the president was she said Jeff but then corrected herself and stated the mike with funny hair Patient has concern for septic ankle at this time and does need procedure done urgently Chart check performed History of IDDM Numerous medications on her chart but do not believe she has been taking them appropriately Labs reviewed from today and acceptable for procedure Urine drug screen at admission positive for amphetamines, opioids and marijuana Plan for MAC anesthesia with local via surgeon Medications/Allergies Home Medications ?Medication ?Instructions ?Recorded ?Confirmed ?Last Taken ?Type levothyroxine 50 mcg tablet 50 mcg PO QAM 30 days #30 tabs 08/19/23 02/23/25 12/07/24 Rx xkpfim-agwftphh-hzbqebb (pork) 1 cap PO TID 30 days #30 caps 08/19/23 02/23/25 12/07/24 Rx 3,000-9,500-15,000 unit capsule,del rel (Creon) albuterol sulfate 90 mcg/actuation 2 puff inhalation Q6H PRN 10/19/23 02/23/25 12/07/24 History aerosol inhaler (Ventolin HFA) Shortness Of Breath amitriptyline 75 mg tablet 75 mg PO BEDTIME 10/19/23 02/23/25 12/07/24 History gabapentin 300 mg capsule 600 mg PO BID 01/17/24 02/23/25 12/07/24 History insulin glargine 100 unit/mL 10 unit SUBCUT DIRECTED 09/23/24 02/23/25 12/07/24 History subcutaneous solution (Lantus U-100 Insulin) ipratropium 0.5 mg-albuterol 3 mg 3 ml inhalation Q4H 09/23/24 02/23/25 12/07/24 History (2.5 mg base)/3 mL nebulization soln isosorbide mononitrate 60 mg 60 mg PO DAILY 09/23/24 02/23/25 12/07/24 History tablet,extended release 24 hr morphine 100 mg tablet,extended 100 mg PO Q8H 09/23/24 02/23/25 02/23/25 History release (MS Contin) nifedipine 30 mg tablet,extended 30 mg PO DAILY 09/23/24 02/23/25 12/07/24 History release 24 hr (Procardia XL) spironolactone 100 mg tablet 100 mg PO DAILY 09/23/24 02/23/25 12/07/24 History (Aldactone) naloxone 4 mg/actuation nasal 4 mg intranasal Q2M PRN opioid 09/24/24 02/23/25 12/07/24 Rx spray (Narcan) overdose #2 ea Knee Scooter #1 ea 10/14/24 02/23/25 12/07/24 Rx furosemide 40 mg tablet 40 mg PO DIRECTED 10/27/24 02/23/25 12/07/24 History lamotrigine 100 mg tablet 100 mg PO DAILY 10/27/24 02/23/25 12/07/24 History (Lamictal) hydromorphone 4 mg tablet 4 mg PO BID PRN pain #7 tabs 10/30/24 02/23/25 12/07/24 Rx potassium chloride 20 mEq 20 meq PO DAILY 11/22/24 02/23/25 12/07/24 History tablet,extended release tizanidine 4 mg tablet 4 mg PO Q6H PRN Spasms 11/29/24 02/23/25 12/07/24 History magnesium oxide 400 mg PO BEDTIME #30 tabs 12/04/24 02/23/25 12/07/24 Rx Misty AFO #1 ea 01/19/25 02/23/25 Unknown Rx ergocalciferol (vitamin D2) 1,250 1,250 mcg PO Q7D 02/23/25 02/23/25 Unknown History mcg (50,000 unit) capsule (Vitamin D2) prochlorperazine maleate 10 mg 10 mg PO Q6H PRN nausea/emesis 02/23/25 02/23/25 Unknown History tablet silver sulfadiazine 1 % topical 1 applic topical BID 02/23/25 02/23/25 Unknown History cream umeclidinium 62.5 mcg-vilanterol 1 inh inhalation DAILY 02/23/25 02/23/25 Unknown History 25 mcg/actuation powdr for inhalation (Anoro Ellipta) Allergies Allergy/AdvReac Type Severity Reaction Status Date / Time codeine Allergy Unknown ALGY-Hives Verified 01/19/25 13:18 aspirin Allergy ALGY-Hives Verified 01/19/25 13:18 diphenhydramine (From Allergy ADR-Muscle Verified 01/19/25 13:18 Benadryl) Pain Sulfa (Sulfonamide Allergy ALGY-Swell Verified 01/19/25 13:18 Antibiotics) Lip/Tongue/Throat Current Medications Generic Name Dose Route Start Last Admin Trade Name Freq PRN Reason Stop Dose Admin Albuterol/Ipratropium 3 ml 02/24/25 16:00 02/26/25 04:40 Ipratropium-Albuterol 3 Ml Neb INHALATION 3 ml Q4H.RESPIRATORY JOJO Administration Amitriptyline HCl 75 mg 02/24/25 21:00 02/25/25 20:46 Amitriptyline 25 Mg Tablet PO 75 mg BEDTIME JOJO Administration Lipase/Protease/Amylase 1 each 02/24/25 13:00 02/25/25 20:46 Mygpap-Liqpymvb-Glzaviv Capsule PO 1 each TID JOJO Administration Artificial Tears 1 drop 02/24/25 13:37 02/26/25 05:17 Artificial Tears Op Soln 15 Ml Btl EYE-BOTH 1 drop Q4H PRN Administration DRY EYE(S) Gabapentin 600 mg 02/24/25 17:00 02/25/25 17:04 Gabapentin 300 Mg Capsule PO 600 mg BID JOJO Administration Hydromorphone HCl 4 mg 02/23/25 23:03 02/23/25 23:12 Hydromorphone Tab 2 Mg Tablet PO 4 mg BID PRN Administration pain Sodium Chloride 1,000 mls @ 100 mls/hr 02/23/25 20:31 02/25/25 21:48 Sodium Chloride 0.9% IV 100 mls/hr .Q10H JOJO Administration Insulin Human Lispro 0 unit 02/23/25 18:00 02/26/25 07:39 Insulin Lispro 100 Unit/1 Ml SUBCUT Not Given [facility] Protocol Isosorbide Mononitrate 60 mg 02/25/25 05:00 02/25/25 05:04 Isosorbide Mononitrate Er 60 Mg Tablet PO 60 mg DAILY JOJO Administration Lactulose 20 gm 02/24/25 04:00 02/26/25 05:16 Lactulose Oral Liq 20 Gm/30 Ml Udc PO Not Given Q6H JOJO Lamotrigine 100 mg 02/25/25 05:00 02/25/25 05:04 Lamotrigine 100 Mg Tablet PO 100 mg DAILY JOJO Administration Levothyroxine Sodium 50 mcg 02/25/25 05:00 02/25/25 05:05 Levothyroxine 50 Mcg Tablet PO 50 mcg QAM JOJO Administration Linezolid 600 mg 02/24/25 12:15 02/26/25 03:29 Linezolid 600 Mg Tablet PO 600 mg Q12H JOJO Administration Protocol Magnesium Oxide 400 mg 02/24/25 21:00 02/25/25 21:50 Magnesium Oxide 400 Mg Tablet PO 400 mg BEDTIME JOJO Administration Morphine Sulfate 15 mg 02/24/25 02:48 02/24/25 07:13 Morphine Ir 15 Mg Tablet PO 15 mg Q4H PRN Administration SEVERE PAIN Morphine Sulfate 100 mg 02/24/25 11:45 02/26/25 05:15 Morphine Er (12 Hr) 100 Mg Tablet PO Not Given Q8H JOJO Nifedipine 30 mg 02/25/25 05:00 02/25/25 05:03 Nifedipine Er (24 Hr) 30 Mg Tablet PO 30 mg DAILY JOJO Administration Ondansetron HCl 4 mg 02/23/25 22:41 02/23/25 23:13 Ondansetron 2 Mg/Ml Sdv 2 Ml IVP 4 mg Q4H PRN Administration NAUSEA AND VOMITING Phenol 3 spray 02/24/25 02:22 02/24/25 02:44 Phenol Oral [place] 177 Ml MUCOUS MEM 3 spray Q2H PRN Administration SORE THROAT Potassium Chloride 20 meq 02/25/25 05:00 02/25/25 05:04 Potassium Chloride Er 20 Meq Tablet PO 20 meq DAILY JOJO Administration Silver Sulfadiazine 1 applic 02/24/25 17:00 02/25/25 17:24 Silver Sulfadiazine Cream 1% 50 Gm TOPICAL 1 applic BID JOJO Administration Spironolactone 100 mg 02/25/25 05:00 02/25/25 05:04 Spironolactone 25 Mg Tablet PO 100 mg DAILY JOJO Administration [facility] Anesthesia Medical History (Updated 02/25/25 @ 19:46 by Natalia Talavera MD) Endocarditis MV , enterococcus fecalis, 2023, treated at [facility] Hypokalemia 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 Pain management contract signed Metabolic encephalopathy SSS (sick sinus syndrome) Presence of permanent cardiac pacemaker Seizure disorder Tobacco dependency Hypothyroidism Accidental fentanyl overdose Overdose Cardiac arrest COPD (chronic obstructive pulmonary disease) Chronically on 3 L of oxygen Smoker Thrombocytopenia Bilateral pulmonary embolism Hepatitis B Pulmonary embolism Nicotine dependence, cigarettes, with unspecified nicotine-induced disorders Chronic hepatitis B Chronic abdominal pain Chronic hip pain Leg cramps Stomach cancer Pelvic inflammatory disease Diabetes mellitus Hypertension Encephalopathy Cirrhosis Gastroesophageal reflux GI bleeding Surgical History H/O right hemicolectomy History of right hemicolectomy H/O tubal ligation History of laparotomy History of hysterectomy Family History Mother Diabetes Father CAD (coronary artery disease) Other Cancer Social History Smoking and tobacco/nicotine status: former use of tobacco/nicotine (quit 2022) Quit status (tobacco/nicotine): has quit using Year quit tobacco: 2020 Former quit date comment: 2ppd x 26 year Hx Alcohol intake: never Substance/Drug Use: never Data Anesthesia 02/27/25 04:05 02/27/25 04:05 Short CBC 02/25/25 02/26/25 Range/Units 04:41 05:35 WBC 3.95 6.55 (3.29-11.43) 10^3/uL Hgb 11.90 11.00 L (11.27-16.99) g/dL Hct 37.3 34.0 L (36-47) % MCV 93.3 D 91.9 (85-98) fl Plt Count 195 157 (157-399) 10^3/cmm Neut % (Auto) 47.3 50.0 % Neut # (Auto) 1.87 3.28 (1.8-7.7) 10^3/uL BMP 02/25/25 02/26/25 04:41 05:35 Sodium 141 141 Potassium 3.9 4.2 Chloride 108 H 108 H Carbon Dioxide 26 24 BUN 6 4 L Creatinine 0.5 0.5 Glucose 96 92 Calcium 8.0 L 8.0 L Liver Function 02/25/25 02/26/25 Range/Units 04:41 05:35 Total Bilirubin 0.6 0.6 (0.15-1.2) mg/dL AST 30 30 (0-32) U/L ALT 12 11 (0-33) U/L Alkaline Phosphatase 97 97 (35-105) U/L Albumin 3.1 L 2.9 L (3.5-5.2) g/dL Cardiac Studies: Echocardiogram 02/29/24 Transesophageal Echocardiogram 10/23/23
--- NOTE | 2025-02-26 07:45 | PC.NURSE ---
0600 pt earlier shift around 8-10 pm was jerking her body and arms, pt alert to name, place, able to walk to the C to pee. Pt occa disoriented off and on back alert then drift to sleep then body jerks. see emar- had pain, + grimacing and given MS contin. 1-2 hours later , pt very drowsy/sedated. HElp pain med 3-4 am. Pt is having Bone bx this a.m. . NPO since MN
[2025-02-26] MEDS: NIFEdipine ER (24 hr) 30 mg Tablet PO (09:37)
[2025-02-26] MEDS: lipase-protease-amylase Capsule 1 EACH PO ×2 (09:37→22:00)
[2025-02-26] MEDS: magnesium sulfate premix 2 GM/50 ML PIGGYBACK IV (09:38)
[2025-02-26] MEDS: lactulose oral liq 20 gm/30 mL UDC PO ×4 (09:38→23:57)
[2025-02-26] MEDS: silver sulfadiazine cream 1% 50 gm 1 APPLIC TOPICAL ×2 (10:05→17:06)
--- NOTE | 2025-02-26 12:50 | P.PN_ITS ---
Subjective 2 Subjective: She is sitting up in bed. Appears mildly confused, rummaging around, spilled her lactulose medication on the bed. Vitals/I&O/Wt Last Vital Signs Temp 97.9 F 02/26/25 11:37 Pulse 93 02/26/25 11:37 Resp 18 02/26/25 11:37 BP 98/63 02/26/25 11:37 Pulse Ox 90 02/26/25 11:37 O2 Del Method Oxymask 02/26/25 11:37 O2 Flow Rate 3 02/26/25 11:34 02/25/25 02/26/25 02/26/25 22:59 06:59 14:59 Intake Total 1240 / 2683.333 1050 / 1050 Output Total 800 / 800 Balance 440 / 1459.290 7129 / 1050 Weight last 48 hrs Weight 113.852 kg Weight 112.037 kg Physical Exam 2 Const: GENERAL APPEARANCE: cooperative ORIENTATION/CONSCIOUSNESS: Yes awake OTHER: Knows she is in the hospital, states they are as 2025. Is not sure why she is in the hospital. HENMT: COMMON NORMALS: oropharynx normal Neck/C-Spine: COMMON NORMALS: no JVD Resp: COMMON NORMALS: normal respiratory effort and clear to auscultation bilaterally AUSCULTATION: clear to auscultation bilaterally Cardio: COMMON NORMALS: no JVD, regular rhythm, S1 normal heart sound present, S2 normal heart sound present and No murmurs present (Cardio) RHYTHM: regular rhythm HEART SOUNDS: S1 normal heart sound present and S2 normal heart sound present GI: COMMON NORMALS: Normal to inspection, nondistended, normoactive bowel sounds present, Soft to palpation and non-tender PALPATION: Yes Soft to palpation Extremity: COMMON NORMALS: no joint enlargement and no pedal edema Neuro: COMMON NORMALS: moves all extremities OTHER: Asterixis Skin: COMMON NORMALS: no rashes or lesions noted GENERAL SKIN EXAM: no rashes or lesions noted Data 02/26/25 05:35 02/26/25 05:35 A&P Assessment and plan 1. Acute encephalopathy: Or send acute encephalopathy today, with worsened altered mental status. Suspected acute metabolic encephalopathy with hepatic encephalopathy, with elevated ammonia. Asterixis. Recheck ammonia level. Continue lactulose 20 g every 6 hours. Target 2-3 soft bowel movements per day. Add enema. Consider further dose/frequency escalation. She spilled her initial dose of lactulose this morning. Will cut down on gabapentin. Also has hydromorphone although has not received it in a while. Replace hypomagnesemia, receiving oral magnesium, will add IV magnesium 2 g today. Recheck magnesium level. Reviewed CBC, CMP, blood culture. Without signs of sepsis. Additional consideration of possible withdrawal from prior substance use. Urine positive for amphetamine on admission. 2. Osteomyelitis of tibia: Bone biopsy postponed today after worsened encephalopathy per discussion with podiatry. Reviewed infectious disease provider note. Discussed with nursing, case management. Challenging social situation as patient is homeless. History of substance use. Does appear to have a primary care provider. 3. Septic arthritis: Surgical procedure was postponed today due to worsening encephalopathy as above. Tentative plan for possibly return tomorrow. 4. Positive urine drug screen: 5. Cirrhosis of liver: 6. Closed trimalleolar fracture: Plan: #right ankle fracture --appreciate dpm eval --will need PT eval and possible cam boot --elevated inflammatory markers, --plan for bone bx, restart abx. ID consulted #hypothyroidism --restart home medication, TSH stable #DM --fsbs, ssi #liver cirrhosis --monitor lft PDMP PDMP Reviewed: Not Reviewed Attestations 2 Medical Necessity Statement*: Continue admission for assessment and management of acute metabolic encephalopathy, hepatic encephalopathy, possible toxic encephalopathy related to medication, osteomyelitis of tibia and septic arthritis pending further surgical intervention and post discharge planning and arrangements LAD with difficult social situation limiting care. and High MDM includes number and complexity of problems actively addressed during encounter and amount and/or complexity of data reviewed/ordered [ resulted lab(s)/test(s), ordered lab(s)/test(s) and other healthcare professional discussion] as documented Diagnoses Acute encephalopathy G93.40 Osteomyelitis of tibia M86.9 Septic arthritis M00.9 Positive urine drug screen R82.5 Cirrhosis of liver K74.60 Closed trimalleolar fracture S82.004F
[2025-02-26 15:56] LABS: Ammonia 65 umol/L (11-51)
--- NOTE | 2025-02-26 19:02 | P.PN_ITS ---
Subjective 2 Subjective: Unable to perform bone biopsy today due to worsening encephalopathy. Patient had severe altered mental status. We will attempt for surgery tomorrow 02/27/2025 Vitals/I&O/Wt Last Vital Signs Temp 97.5 F L 02/26/25 16:09 Pulse 90 02/26/25 16:09 Resp 19 H 02/26/25 16:09 BP 114/74 02/26/25 16:09 Pulse Ox 90 02/26/25 16:09 O2 Del Method Nasal Cannula 02/26/25 16:09 O2 Flow Rate 3 02/26/25 11:34 02/26/25 02/26/25 02/26/25 06:59 14:59 22:59 Intake Total 1050 / 1050 Balance 1050 / 1050 Weight last 48 hrs Weight 251 lb Weight 247 lb Physical Exam 2 Narrative: BELOW IS A FOCUSED LOWER EXTREMITY EXAM GENERAL: A&O x 3 VASCULAR: DP/PT pulses palpable 2/4 with CFT intact, <3seconds to distal digits DERMATOLOGICAL: 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 No open wounds or sinus tracts. No underlying fluctuance or signs of deep space abscess MUSCULOSKELETAL: Right ankle range of motion limited secondary to arthritis NEUROLOGICAL: Neurological sensation to the affected foot and ankle is present through L4-S1 dermatomes with no hyper/hypoesthesias, negative Tinel or Valleix's sign IMAGING: X-rays of right ankle and CT scan of right ankle were independently interpreted by me. These show extensive degenerative and subchondral changes of the ankle joint Data 02/26/25 05:35 02/26/25 05:35 A&P Assessment and plan 1. Closed trimalleolar fracture: 2. Arthritis of ankle, right: 3. Elevated erythrocyte sedimentation rate: Plan: - Previous right trimalleolar ankle fracture with now posttraumatic arthritis possible infectious process -Labs and vitals reviewed -WBC 7.6 -ESR 75 -CRP 26.3 -HR 96 -RR 20 -Tmax 98.4 -Cultures NGTD -Diet: NPO at midnight for bone biopsy right ankle tomorrow 02/27/2025 -Unable to perform bone biopsy today secondary to patient altered mental status. -Pain Mgmt: Per primary team - Weightbearing as tolerated to right foot in cam boot -Discharge plan:to be determined PDMP PDMP Reviewed: Not Reviewed Attestations 2 Medical Necessity Statement*: See hospitalist note Coding Level of Care Code Acute Code for [facility] Fwd Diagnoses Closed trimalleolar fracture S82.853A Arthritis of ankle, right M19.071 Elevated erythrocyte sedimentation rate R70.0
--- NOTE | 2025-02-26 19:49 | PM.PN ---
Subjective Subjective: ID progress note Bon biopsy was deferred today due to worsened confusion, ammonia level at 65, possible substance withdrawal. Blood cx remains negative thus far. Medications: Reviewed: Yes Vitals/I&O/Wt Last Vital Signs Temp 97.5 F L 02/26/25 16:09 Pulse 90 02/26/25 16:09 Resp 19 H 02/26/25 16:09 BP 114/74 02/26/25 16:09 Pulse Ox 90 02/26/25 16:09 O2 Del Method Nasal Cannula 02/26/25 16:09 O2 Flow Rate 3 02/26/25 11:34 02/26/25 02/26/25 02/26/25 06:59 14:59 22:59 Intake Total 1050 / 1050 Balance 1050 / 1050 Weight last 48 hrs Weight 113.852 kg Weight 112.037 kg Data 02/26/25 05:35 02/26/25 05:35 A&P Assessment and plan 1. Osteomyelitis of tibia: 2. Septic arthritis: Plan: 49F with PMH notable for h/o endocarditis 2023, h/o trimalleolar fracture as noted above s/p pinning which was removed by patient, h/o non complaiance, h/o drug use currently admitted for altered menatl status thought to be likely metabolic related to + UDS vs elevated ammonia level. Noted to have swollen right ankle joint, given recent history, elevated inflammatory markers with imaging findings, concern for potential septic arthirtis with osteomyelitis Currently no active draining tract or other openings noted, no leukocytosis, no fever may be related to inflammatory non infectious process vs chronic osteomyelitis Recommend to obtain tissue sampling/Bone biopsy/synovial aspirate if feasible to estbalish diagnosis UA without signs of UTI, CXR without infiltrates. Can continue abx while pending blood culture results. 02/25/25: Afebrile, no leukocytosis, patient planned for bone biopsy and culture in the OR with podiatry. Blood culture remains negative thus far. Consider holding Linezolid while pending biopsy and culture as likely to be highest yield off abx. will follow 02/26/25: Bone biopsy deferred to tomorrow in view of worsened encephalopathy today. Blood cx remains negative to date. No leukocytosis. No fever. Elevated ammonia at 65 noted. Will follow after bone biopsy. If returns concerning for chronic osteomyelitis, will plan on a prolonged abx course however given patient's past h/o non compliance, IVDU and undomiciled status, will prefer to use oral abx guided by culture results instead of iv abx. Will follow PDMP PDMP Reviewed: Not Reviewed Attestations Medical Necessity Statement*: per admitting Coding Level of Care Code Acute Code for [facility] Fwd Diagnoses Osteomyelitis of tibia M86.9 Septic arthritis M00.9
[2025-02-26] MEDS: morphine ER (12 HR) 100 mg Tablet PO ×2 (22:00)
--- NOTE | 2025-02-26 23:00 | PC.NURSE ---
from 7:30pm to 10:20 pm , pt been getting in and out of bed. pt was found sitting on the floor, denies falling, pt stated, I just want to sit on the floor. Noted PIV was pulled out, applied pressure over old PIV site, inseted new PIV- pt elaina well , 20 g . Pt confused, disoriented, knows her name but not place or situation. almost every 10-15 min, pt keeps getting in and out of bed, pt gait and balance is off /unsteady. HIGH FALL risk. GIven her PRN pain med MS contin for pain. CO pain all over and neck pain. 11:04 pain med effective, pt restful and quiet/calm. aware;dr LOPEZ
[2025-02-27] VITALS (18 sets, daily range): BP systolic 92–149; BP diastolic 57–89; PULSE 79–105; RESP 16–18; TEMP 36.3–36.8; O2SAT 90–98
[2025-02-27 05:00] LABS: Hematocrit 33.1 % (36-47); Hemoglobin 10.90 g/dL (11.27-16.99); Mean Corpuscular HGB Conc 32.9 g/dL (30-55); Mean Corpuscular Hemoglobin 29.7 pg (27-33); Mean Corpuscular Volume 90.2 fl (85-98); Nucleated Red Blood Cells % 0 %; Platelet Count 165 10^3/cmm (157-399); Red Blood Count 3.67 10^6/uL (3.85-5.65); White Blood Count 5.28 10^3/uL (3.29-11.43)
[2025-02-27 05:18] LABS: Anion Gap 12.5 (5-19); Blood Urea Nitrogen 3 mg/dL (6-20); Calcium 8.0 mg/dL (8.5-10.5); Carbon Dioxide 28 mmol/L (22-29); Chloride 102 mmol/L (98-107); Glucose 93 mg/dL (65-115); Magnesium 1.4 mg/dL (1.7-2.3); Osmolality Calculated 284 mOsm/kg (285-295); Potassium 3.5 mmol/L (3.5-5.1); Sodium 139 mmol/L (136-145)
[2025-02-27 05:19] LABS: Ammonia 59 umol/L (11-51)
[2025-02-27] MEDS: NIFEdipine ER (24 hr) 30 mg Tablet PO (05:39)
[2025-02-27] MEDS: lactulose oral liq 20 gm/30 mL UDC PO ×2 (05:47→22:59)
[2025-02-27] MEDS: lipase-protease-amylase Capsule 1 EACH PO ×2 (05:49→22:59)
[2025-02-27] MEDS: lactulose oral liq 20 gm/30 mL UDC 200 GM PR (05:50)
[2025-02-27] MEDS: ondansetron 2 mg/ML SDV 2 mL 4 MG IVP (06:05)
--- NOTE | 2025-02-27 06:33 | PC.NURSE ---
pt had sprite with her meds for 6am meds, after few min pt vomitted, RN did not see pills in emesis, pt after 15 min , calm, eyes closed. Had pain med also- see emar. cont PIV . Dr Jerez was on zoom and questions answered re: pt's status, both legs looks better w less edema. Informed md that MS contin 100 mg is too strong for the pt. she gets too sedated when taking the meds. admin pt smaller dose of prn meds.
--- NOTE | 2025-02-27 07:36 | PC.NURSE ---
0610 notified by NEU DEEPA charge that pt potentially will have procedure ; bone bx done this afternoon and to keep pt NPO. Pt informed and sitter- had to re-remind pt re NPO, pt still disoriented and confused.
[2025-02-27] MEDS: magnesium sulfate premix 2 GM/50 ML PIGGYBACK IV (07:49)
--- NOTE | 2025-02-27 12:38 | P.HPUD_ITS ---
Surgery/Procedure H&P Update DATE OF PROCEDURE: February 27, 2025 DATE H&P PERFORMED: 02/24/25 H&P UPDATE INFORMATION: I have reviewed H&P completed within last 30 days, I have examined patient prior to procedure, No changes to prior documentation, H&P is in [facility] EMR on date indicated and Risks and benefits of the procedure reviewed PREOP DIAGNOSIS: Septic ankle PLANNED PROCEDURE: Operation Date: 02/26/25 07:55 Proposed Procedures p Right Ankle Bone Biospy(Right) - Meliton Ellison DPM Operation Date: 02/27/25 12:50 Proposed Procedures p Right Ankle Bone Biopsy(Right) - Meliton Ellison DPM
--- NOTE | 2025-02-27 13:22 | P.BOP_ITS ---
Date of procedure: 02-27-25 Surgeon name: Dr. Meliton Ellison DPM Dimpling Machine Operator(s) name(s): See intraop documentation Procedure(s) performed: Right ankle bone biopsy Description of findings: Healthy appearing bone. No septic joint. No fluid aspirate Estimated blood loss: 2cc Tourniquet time: no tourniquet used Specimen(s) removed: Bone biopsy right ankle sent to pathology, bone culture right ankle sent to micro Post-operative diagnosis: possible osteomyelitis
--- NOTE | 2025-02-27 13:24 | P.OP_ITS ---
Operative Report Date of procedure: February 27, 2025 Surgeon: Meliton Ellison DPM Brief History: Procedure: Date of procedure: 02/27/2025 Pre-op diagnosis: Suspected osteomyelitis right ankle Post-op diagnosis: Same Post-op findings: No septic joint Procedure done: Right ankle bone biopsy of distal tibia intra-articular CPT 57965 Implants: None Specimens removed: Bone biopsy right ankle sent to pathology to rule out osteomyelitis, bone culture right ankle sent to micro for ID and sensitivity Surgeon: Dr. Meliton Ellison DPM Keypunch Operators Supervisor: Sulma Estimated blood loss: 2 cc Tourniquet time: No tourniquet used Complications: None Patient is currently admitted to the hospital for altered mental status. Patient has a long history of noncompliance for treatment of right trimalleolar ankle fracture. CT scan obtained in the emergency department was read as possible osteomyelitis, septic ankle joint. Patient is coming to the operating room today for right ankle joint aspiration, bone biopsy to rule out osteomyelitis or septic joint. The patient has been NPO since midnight. The history has been reviewed and the history and physical is current. The signed consent was confirmed and placed in the patient chart. Patient imaging has been reviewed and is consistent with the diagnosis. Under mild sedation, the patient was brought into the operating room and left on the gurney in the supine position. Patient is receiving antibiotics around the clock on the floor, Therefore, additional antibiotic prophylaxix was not administered. MAC sedation was then performed by the anesthesiateam. A local field block was performed using 0.5% Marcaine plain. No tourniquet was used. The right lower extremity was prepped and draped in standard fashion. The following procedure was then performed. Attention was directed to the right ankle where an 18-gauge needle was inserted into the anteromedial portal of the ankle just medial to the tibialis anterior tendon. Once in the ankle joint the needle was aspirated. No fluid was aspirated. A #15 blade was then used to make a small stab incision at the insertion point of the 18-gauge needle. Mosquito hemostat was used to bluntly dissect down through subcutaneous tissue. Jamshidi needle was then inserted into the ankle joint. Once noted to be against the tibial plafond and bone biopsy was obtained from intra-articular portion of right ankle joint. The bone appeared healthy and viable. This specimen was sent to pathology to rule out osteomyelitis. A second biopsy was then taken from the same location using Jamshidi needle. Again bone appeared healthy and viable with no readily visualized signs of infection. The second biopsy was sent to micro for ID and sensitivity. Next, the incision was irrigated with sterile saline before being closed with 4-0 nylon in horizontal mattress fashion. The incision was then dressed with OpSite. The patient tolerated the procedure and anesthesia well and without complicati on. The patient was transported from the operating room to the recovery room with vital signs stable and vascular status intact to all digits of the right foot. Thepatient was instructed to remain weightbearing as tolerated in cam boot to the operative extremity, to keep surgical dressing clean, dry and intact. The patient will be transferred back to the floor once anesthesia criteria is met. I will continue to round on and follow the patient in the inpatientsetting and provide recommendations to stabilize the patient for discharge.
[2025-02-27] MEDS: BUPivacaine 0.5% INJ 30 mL INJECTION (13:29)
--- NOTE | 2025-02-27 13:33 | ANE.PACU2 ---
Inpatient post-anesthesia follow up: Airway intact: Yes Vital signs: Temperature 97.3 F Pulse Rate 81 Respiratory Rate 16 Blood Pressure 112/71 Pulse Oximetry 95 Oxygen Delivery Me thod Nasal Cannula Oxygen Flow Rate 2 Fraction of Inspir ed Oxygen Hydration adequate: Yes Nausea and vomiting: No Pain level: 1 Mental status: Baseline
[2025-02-27] MEDS: HYDROmorphone tab 2 MG TABLET PO (16:19)
--- NOTE | 2025-02-27 16:35 | P.PN_ITS ---
Subjective 2 Subjective: Today she is feeling a bit better. Feeling improvement in her right ankle. She is more alert and settled today. Is able to tell me where she is. Still names the year is 2025. Vitals/I&O/Wt Last Vital Signs Temp 97.7 F 02/27/25 14:15 Pulse 79 02/27/25 14:15 Resp 17 02/27/25 16:19 BP 112/77 02/27/25 14:15 Pulse Ox 96 02/27/25 14:15 O2 Del Method Nasal Cannula 02/27/25 14:15 O2 Flow Rate 2 02/27/25 13:30 02/27/25 02/27/25 02/27/25 06:59 14:59 22:59 Intake Total 1810 / 4040 1050 / 1050 993.333 / 2043.333 Output Total 1000 / 1400 600 / 600 Balance 810 / 2640 450 / 450 993.333 / 1443.333 Weight last 48 hrs Weight 113.398 kg Weight 113.852 kg Physical Exam 2 Const: GENERAL APPEARANCE: cooperative ORIENTATION/CONSCIOUSNESS: Yes awake OTHER: Knows she is in the hospital, states they are as 2025. Is not sure why she is in the hospital. HENMT: COMMON NORMALS: oropharynx normal Neck/C-Spine: COMMON NORMALS: no JVD Resp: COMMON NORMALS: normal respiratory effort and clear to auscultation bilaterally AUSCULTATION: clear to auscultation bilaterally Cardio: COMMON NORMALS: no JVD, regular rhythm, S1 normal heart sound present, S2 normal heart sound present and No murmurs present (Cardio) RHYTHM: regular rhythm HEART SOUNDS: S1 normal heart sound present and S2 normal heart sound present GI: COMMON NORMALS: Normal to inspection, nondistended, normoactive bowel sounds present, Soft to palpation and non-tender PALPATION: Yes Soft to palpation Extremity: COMMON NORMALS: no joint enlargement OTHER: Persistent swelling of the right ankle, without erythema, bruising, cyanosis or warmth. Neuro: COMMON NORMALS: moves all extremities OTHER: Asterixis improved Skin: COMMON NORMALS: no rashes or lesions noted GENERAL SKIN EXAM: no rashes or lesions noted Data 02/27/25 04:05 02/27/25 04:05 A&P Assessment and plan 1. Acute encephalopathy: Improvement in acute encephalopathy today, although not entirely resolved. She is more alert, interactive better today, more settled. Asterixis with improvement. Ammonia reviewed, down to 59. Reviewed vitals, CBC, BMP, without major abnormality. Afebrile. No signs of sepsis. Underwent right ankle bone biopsy. Persistent hypomagnesemia, additional IV magnesium requested. Continue lactulose, continue target 2-3 soft bowel movements per day. Recheck ammonia. Consider further dose/frequency escalation. She spilled her initial dose of lactulose this morning. cut down on gabapentin. Also has hydromorphone although has not received it in a while. Reviewed CBC, CMP, blood culture. Without signs of sepsis. Additional consideration of possible withdrawal from prior substance use. Urine positive for amphetamine on admission. Discontinue IV fluid. Monitor for risk of fluid overload. 2. Osteomyelitis of tibia: Discussed with infectious disease. Hold off linezolid for now. Pending further follow-up. Monitor for risk of worsening/recurrence of infection. Underwent right ankle bone biopsy of distal tibia, discussed with patient podiatry. Pending culture results. Follow-up. Discussed with infectious disease - consideration given to antibiotic coverage given multiple factors, with difficult social situation, patient homelessness, high risk of loss to follow-up, history of substance use and other factors, as well as with history of pseudomonal organism identified in November. Pending podiatry reassessment. Otherwise weightbearing as tolerated in cam boot. Discussed with nursing, case management. Challenging social situation as patient is homeless. History of substance use. Does appear to have a primary care provider. 3. Septic arthritis: 4. Positive urine drug screen: 5. Cirrhosis of liver: 6. Closed trimalleolar fracture: Plan: #right ankle fracture --appreciate dpm eval --will need PT eval and possible cam boot --elevated inflammatory markers, --plan for bone bx, restart abx. ID consulted # Hypomagnesemia: Reviewed magnesium, 1.4 today. Given additional magnesium 2 g. Recheck magnesium level. #hypothyroidism --restart home medication, TSH stable #DM --fsbs, ssi #liver cirrhosis --monitor lft PDMP PDMP Reviewed: Not Reviewed Attestations 2 Medical Necessity Statement*: Continue admission for assessment and management of acute metabolic encephalopathy, hepatic encephalopathy, possible toxic encephalopathy related to medication, osteomyelitis of tibia and septic arthritis pending further surgical intervention and post discharge planning and arrangements LAD with difficult social situation limiting care. and High MDM includes amount and/or complexity of data reviewed/ordered [ previous or external records, resulted lab(s)/test(s) and other healthcare professional discussion] and described risk of complication, morbidity or mortality of management as documented Diagnoses Acute encephalopathy G93.40 Osteomyelitis of tibia M86.9 Septic arthritis M00.9 Positive urine drug screen R82.5 Cirrhosis of liver K74.60 Closed trimalleolar fracture S82.869Y
[2025-02-27] MEDS: silver sulfadiazine cream 1% 50 gm 1 APPLIC TOPICAL (17:16)
--- NOTE | 2025-02-27 19:57 | PM.MISC ---
Miscellaneous Note Purpose of Documentation: Chart reviewed. s/p bone biopsy taken earlier today. Will follow with culture results.
[2025-02-27] MEDS: morphine ER (12 HR) 100 mg Tablet PO (22:59)
[2025-02-28] VITALS (9 sets, daily range): BP systolic 91–147; BP diastolic 64–80; PULSE 74–93; RESP 14–18; TEMP 36.4–36.7; O2SAT 90–96; BMI 34.5
[2025-02-28 04:44] LABS: Hematocrit 33.7 % (36-47); Hemoglobin 11.00 g/dL (11.27-16.99); Mean Corpuscular HGB Conc 32.6 g/dL (30-55); Mean Corpuscular Hemoglobin 29.3 pg (27-33); Mean Corpuscular Volume 89.9 fl (85-98); Nucleated Red Blood Cells % 0 %; Platelet Count 183 10^3/cmm (157-399); Red Blood Count 3.75 10^6/uL (3.85-5.65); White Blood Count 4.38 10^3/uL (3.29-11.43)
[2025-02-28 05:08] LABS: Magnesium 1.6 mg/dL (1.7-2.3)
[2025-02-28 05:27] LABS: Anion Gap 10.3 (5-19); Blood Urea Nitrogen 4 mg/dL (6-20); Calcium 8.1 mg/dL (8.5-10.5); Carbon Dioxide 30 mmol/L (22-29); Chloride 102 mmol/L (98-107); Glucose 96 mg/dL (65-115); Osmolality Calculated 285 mOsm/kg (285-295); Potassium 3.3 mmol/L (3.5-5.1); Sodium 139 mmol/L (136-145)
[2025-02-28 05:28] LABS: Ammonia 107 umol/L (11-51)
[2025-02-28] MEDS: NIFEdipine ER (24 hr) 30 mg Tablet PO (05:51)
[2025-02-28] MEDS: lactulose oral liq 20 gm/30 mL UDC PO ×5 (05:51→22:45)
[2025-02-28] MEDS: lipase-protease-amylase Capsule 1 EACH PO ×3 (05:51→21:15)
[2025-02-28] MEDS: magnesium sulfate premix 4 GM/100 ML PREMIX IV (08:33)
--- NOTE | 2025-02-28 11:20 | PM.PN ---
Subjective Subjective: ID progress note s/p bone biopsy yesterday . gram stain negative, reviewed op note Medications: Reviewed: Yes Vitals/I&O/Wt Last Vital Signs Temp 97.5 F L 02/28/25 08:05 Pulse 80 02/28/25 08:05 Resp 18 02/28/25 08:05 BP 104/70 02/28/25 08:05 Pulse Ox 90 02/28/25 08:05 O2 Del Method Nasal Cannula 02/28/25 04:00 O2 Flow Rate 2 02/28/25 04:00 02/27/25 02/28/25 02/28/25 22:59 06:59 14:59 Intake Total 1673.333 / 2723.333 913.333 / 3636.666 1000 / 1000 Output Total 500 / 1100 1150 / 2250 Balance 1173.333 / 1623.333 -236.667 / 8823.700 2490 / 1000 Weight last 48 hrs Weight 109.225 kg Weight 113.398 kg Physical Exam Narrative: patient seen via telehealth. dishevelled, speaks few words and short sentences Ext:right ankle joint more swollen compared to left, no erythema, tenderness Data 02/28/25 04:34 02/28/25 04:34 Other Labs: NAME: Maribell Foreman LOC: [facility] U #: [id number] AGE/SX: 49/F ROOM: [facility] RE02/23/[address]: Mao Del Rosario MD : 1975 BED: 2 DIS: FAX #: STATUS: ADM IN TLOC: Spec #: [id number] Diego: 02/27/25-1299 Status: RES Req #: [id number] Recd: 02/27/25-[address]: Meliton Ellison DPMilo Src: Ankle SpDesc: #1 Ordered: WC and GS, Anaer Comments: Comment Right ankle Procedure Result Verified Site Gram Stain Final 02/28/25-1649 Result NO WHITE BLOOD CELLS SEEN NO ORGANISMS SEEN Anaerobic Culture PENDING Wound Culture PENDING NAME: Maribell Foreman LOC: [facility] U #: [id number] AGE/SX: 49/F ROOM: [facility] RE02/23/[address]: Mao Del Rosario MD : 1975 BED: 2 DIS: FAX #: STATUS: ADM IN TLOC: Spec #: [id number] Diego: 02/23/25 Status: COMP Req #: [id number] Recd: 02/23/[address]: Lane Gaffney DO Src: Blood SpDesc: Ordered: Bcult Procedure Result Verified Site Blood Culture Final 02/28/25 NO GROWTH AFTER 5 DAYS Blood Culture Preliminary (changed) 02/24/25 NEGATIVE TO DATE Blood Culture Preliminary (changed) 02/23/25 SPECIMEN COLLECTED NOTICE OF CONFIDENTIALITY A&P Assessment and plan 1. Osteomyelitis of tibia: 2. Septic arthritis: Plan: 49F with PMH notable for h/o endocarditis 2023, h/o trimalleolar fracture as noted above s/p pinning which was removed by patient, h/o non complaiance, h/o drug use currently admitted for altered menatl status thought to be likely metabolic related to + UDS vs elevated ammonia level. Noted to have swollen right ankle joint, given recent history, elevated inflammatory markers with imaging findings, concern for potential septic arthirtis with osteomyelitis Currently no active draining tract or other openings noted, no leukocytosis, no fever may be related to inflammatory non infectious process vs chronic osteomyelitis Recommend to obtain tissue sampling/Bone biopsy/synovial aspirate if feasible to estbalish diagnosis UA without signs of UTI, CXR without infiltrates. Can continue abx while pending blood culture results. 02/25/25: Afebrile, no leukocytosis, patient planned for bone biopsy and culture in the OR with podiatry. Blood culture remains negative thus far. Consider holding Linezolid while pending biopsy and culture as likely to be highest yield off abx. will follow 02/26/25: Bone biopsy deferred to tomorrow in view of worsened encephalopathy today. Blood cx remains negative to date. No leukocytosis. No fever. Elevated ammonia at 65 noted. Will follow after bone biopsy. If returns concerning for chronic osteomyelitis, will plan on a prolonged abx course however given patient's past h/o non compliance, IVDU and undomiciled status, will prefer to use oral abx guided by culture results instead of iv abx. Will follow 02/27/25 : Bone biopsy completed yesterday. Reviewed op note - no fluid aspirated from ankle joint , bone biopsy was obtained from intra-articular portion of right ankle joint. The bone appeared healthy and viable. Cx thus far with no WBCs or organisms on gram stain. Path pending. Overall low suspicion for osteomyelitis at this time .Likely patients; ankle swelling is inflammatory/ post traumatic in nature. D/c Linezolid. will follow final path and cx results PDMP PDMP Reviewed: Not Reviewed Attestations Medical Necessity Statement*: per admitting Coding [facility] Osteomyelitis of tibia M86.9 Septic arthritis M00.9
--- NOTE | 2025-02-28 11:29 | P.PN_ITS ---
Subjective 2 Subjective: Patient seen at bedside this morning. Resting comfortably. More alert and awake today. Vitals/I&O/Wt Last Vital Signs Temp 97.5 F L 02/28/25 08:05 Pulse 80 02/28/25 08:05 Resp 18 02/28/25 08:05 BP 104/70 02/28/25 08:05 Pulse Ox 90 02/28/25 08:05 O2 Del Method Nasal Cannula 02/28/25 04:00 O2 Flow Rate 2 02/28/25 04:00 02/27/25 02/28/25 02/28/25 22:59 06:59 14:59 Intake Total 1673.333 / 2723.333 913.333 / 3636.666 1000 / 1000 Output Total 500 / 1100 1150 / 2250 Balance 1173.333 / 1623.333 -236.667 / 9451.333 2389 / 1000 Weight last 48 hrs Weight 240 lb 12.8 oz Weight 250 lb Physical Exam 2 Narrative: BELOW IS A FOCUSED LOWER EXTREMITY EXAM GENERAL: A&O x 3 VASCULAR: DP/PT pulses palpable 2/4 with CFT intact, <3seconds to distal digits DERMATOLOGICAL: Right ankle is mildly maintainability engineer comparison to contralateral ankle. No open wounds or sinus tracts. No underlying fluctuance or signs of deep space abscess MUSCULOSKELETAL: Right ankle range of motion limited secondary to arthritis NEUROLOGICAL: Neurological sensation to the affected foot and ankle is present through L4-S1 dermatomes with no hyper/hypoesthesias, negative Tinel or Valleix's sign IMAGING: X-rays of right ankle and CT scan of right ankle were independently interpreted by me. These show extensive degenerative and subchondral changes of the ankle joint Data 02/28/25 04:34 02/28/25 04:34 A&P Assessment and plan 1. Closed trimalleolar fracture: 2. Arthritis of ankle, right: 3. Elevated erythrocyte sedimentation rate: Plan: - Previous right trimalleolar ankle fracture with now posttraumatic arthritis possible infectious process -Labs and vitals reviewed - VSS -Tmax 98.4 -Cultures NGTD -Diet: Okay for diet - Status post bone biopsy right ankle. Intraoperatively ankle did not show signs of septic arthritis. No ankle joint aspirate obtainable. Bone biopsy sent to micro for ID and sensitivity as well as to pathology to rule out osteomyelitis. -Pain Mgmt: Per primary team - Weightbearing as tolerated to right foot in cam boot -Discharge plan: Patient will be okay to discharge home from podiatry standpoint once final antibiotic recommendations have been made. Weight-bear as tolerated to right foot in cam boot PDMP PDMP Reviewed: Not Reviewed Attestations 2 Medical Necessity Statement*: See hospitalist note Coding Level of Care Code Acute Code for [facility] Diagnoses Closed trimalleolar fracture S82.853A Arthritis of ankle, right M19.071 Elevated erythrocyte sedimentation rate R70.0
[2025-02-28] MEDS: morphine ER (12 HR) 100 mg Tablet PO (11:56)
[2025-02-28] MEDS: HYDROmorphone tab 2 MG TABLET PO ×2 (14:00→22:35)
--- NOTE | 2025-02-28 17:23 | PM.PN ---
Subjective Subjective: He is a bit more alert today. Having some pain in the right ankle. Vitals/I&O/Wt Last Vital Signs Temp 97.7 F 02/28/25 16:51 Pulse 82 02/28/25 16:51 Resp 17 02/28/25 16:51 BP 127/70 02/28/25 16:51 Pulse Ox 90 02/28/25 16:51 O2 Del Method Nasal Cannula 02/28/25 04:00 O2 Flow Rate 2 02/28/25 04:00 02/28/25 02/28/25 02/28/25 06:59 14:59 22:59 Intake Total 913.333 / 3636.666 2200 / 2200 Output Total 1150 / 2250 Balance -236.667 / 6454.769 7339 / 2200 Weight last 48 hrs Weight 109.225 kg Weight 113.398 kg Physical Exam Const: GENERAL APPEARANCE: cooperative ORIENTATION/CONSCIOUSNESS: Yes awake OTHER: Knows she is in the hospital, states they are as 2025. Is not sure why she is in the hospital. HENMT: COMMON NORMALS: oropharynx normal Neck/C-Spine: COMMON NORMALS: no JVD Resp: COMMON NORMALS: normal respiratory effort and clear to auscultation bilaterally AUSCULTATION: clear to auscultation bilaterally Cardio: COMMON NORMALS: no JVD, regular rhythm, S1 normal heart sound present, S2 normal heart sound present and No murmurs present (Cardio) RHYTHM: regular rhythm HEART SOUNDS: S1 normal heart sound present and S2 normal heart sound present GI: COMMON NORMALS: Normal to inspection, nondistended, normoactive bowel sounds present, Soft to palpation and non-tender PALPATION: Yes Soft to palpation Extremity: COMMON NORMALS: no joint enlargement and no pedal edema OTHER: Persistent swelling of the right ankle, without erythema, bruising, cyanosis or warmth. Neuro: COMMON NORMALS: moves all extremities OTHER: Asterixis improved Skin: COMMON NORMALS: no rashes or lesions noted GENERAL SKIN EXAM: no rashes or lesions noted Data 02/28/25 04:34 02/28/25 04:34 Micro: Microbiology 02/27/25 13:00 Gram Stain - Final Ankle - #1 02/23/25 12:15 Blood Culture - Final Blood NO GROWTH AFTER 5 DAYS 02/23/25 12:13 Blood Culture - Final Blood NO GROWTH AFTER 5 DAYS A&P Assessment and plan 1. Acute encephalopathy: Versus encephalopathy. Reviewed chemistry, ammonia. Ammonia was worsening today up to 105. I do not see that she is having 2-3 soft bowel movements per day. Intermittently declines oral lactulose. Rectal lactulose. Increase oral lactulose to 20 g every 4 hours. Reassess ammonia. Persistent hypomagnesemia, on review magnesium today again low at 1.6. Will give 4 g magnesium IV. Recheck magnesium level. Continue reduced dose gabapentin. Reduce dose further to to 150 mg. Monitor for risk of withdrawal. Also has hydromorphone although has not received it in a while. Reviewed CBC, CMP, blood culture. Without signs of sepsis. Additional consideration of possible withdrawal from prior substance use. Urine positive for amphetamine on admission. Discussed with nursing, classification case manager. 2. Osteomyelitis of tibia: Reviewed wound culture, so far Gram stain without organisms or white cells. Reviewed ID and podiatry note. Discussed with infectious disease. Hold off linezolid for now. Pending further follow-up. Monitor for risk of worsening/recurrence of infection. Underwent right ankle bone biopsy of distal tibia, discussed with patient podiatry. Pending culture results. Follow-up. Discussed with infectious disease - consideration given to antibiotic coverage given multiple factors, with difficult social situation, patient homelessness, high risk of loss to follow-up, history of substance use and other factors, as well as with history of pseudomonal organism identified in November. Pending podiatry reassessment. Otherwise weightbearing as tolerated in cam boot. Discussed with nursing, case management. Challenging social situation as patient is homeless. History of substance use. Does appear to have a primary care provider. 3. Septic arthritis: Reviewed podiatry note. Without signs of septic arthritis intraoperatively. 4. Positive urine drug screen: 5. Cirrhosis of liver: Continue management of hepatic encephalopathy. Will need follow-up after discharge. 6. Closed trimalleolar fracture: Plan: #right ankle fracture --appreciate dpm eval --will need PT eval and possible cam boot --elevated inflammatory markers, --plan for bone bx, restart abx. ID consulted # Hypomagnesemia: Reviewed magnesium, 1.4 today. Given additional magnesium 2 g. Recheck magnesium level. #hypothyroidism --home medication, TSH stable #DM --fsbs, ssi #liver cirrhosis --monitor lft PDMP PDMP Reviewed: Not Reviewed Attestations Medical Necessity Statement*: Continue admission for assessment and management of acute metabolic encephalopathy, hepatic encephalopathy, possible toxic encephalopathy related to medication, osteomyelitis of tibia and septic arthritis pending further surgical intervention and post discharge planning and arrangements LAD with difficult social situation limiting care. and High MDM includes amount and/or complexity of data reviewed/ordered [ previous or external records, resulted lab(s)/test(s) and other healthcare professional discussion] and described risk of complication, morbidity or mortality of management as documented Diagnoses Acute encephalopathy G93.40 Osteomyelitis of tibia M86.9 Septic arthritis M00.9 Positive urine drug screen R82.5 Cirrhosis of liver K74.60 Closed trimalleolar fracture S84.228D
[2025-03-01] VITALS (9 sets, daily range): BP systolic 105–146; BP diastolic 69–77; PULSE 65–92; RESP 14–18; TEMP 36.4–36.8; O2SAT 91–96; BMI 35.0
[2025-03-01] MEDS: morphine ER (12 HR) 100 mg Tablet PO ×4 (03:45→20:29)
[2025-03-01 05:11] LABS: Hematocrit 35.6 % (36-47); Hemoglobin 11.60 g/dL (11.27-16.99); Mean Corpuscular HGB Conc 32.6 g/dL (30-55); Mean Corpuscular Hemoglobin 30.1 pg (27-33); Mean Corpuscular Volume 92.5 fl (85-98); Nucleated Red Blood Cells % 0 %; Platelet Count 189 10^3/cmm (157-399); Red Blood Count 3.85 10^6/uL (3.85-5.65); White Blood Count 5.27 10^3/uL (3.29-11.43)
[2025-03-01] MEDS: NIFEdipine ER (24 hr) 30 mg Tablet PO (05:32)
[2025-03-01 05:33] LABS: Magnesium 1.7 mg/dL (1.7-2.3)
[2025-03-01 05:34] LABS: Anion Gap 9.9 (5-19); Blood Urea Nitrogen 6 mg/dL (6-20); Calcium 8.4 mg/dL (8.5-10.5); Carbon Dioxide 32 mmol/L (22-29); Chloride 106 mmol/L (98-107); Glucose 96 mg/dL (65-115); Osmolality Calculated 295 mOsm/kg (285-295); Potassium 3.9 mmol/L (3.5-5.1); Sodium 144 mmol/L (136-145)
[2025-03-01] MEDS: lactulose oral liq 20 gm/30 mL UDC PO ×3 (05:34→17:21)
[2025-03-01 05:35] LABS: Ammonia 74 umol/L (11-51)
[2025-03-01] MEDS: lipase-protease-amylase Capsule 1 EACH PO ×3 (05:42→20:29)
[2025-03-01] MEDS: magnesium sulfate premix 4 GM/100 ML PREMIX IV (08:23)
--- NOTE | 2025-03-01 12:30 | P.PN_ITS ---
Subjective 2 Subjective: She is somnolent this morning, wakes up to voice. Knows she is in the hospital. Says the year is 2025. Easily falls back asleep. Vitals/I&O/Wt Last Vital Signs Temp 97.5 F L 03/01/25 11:46 Pulse 81 03/01/25 11:46 Resp 16 03/01/25 12:19 BP 113/74 03/01/25 11:46 Pulse Ox 94 03/01/25 11:46 O2 Del Method Nasal Cannula 03/01/25 11:46 O2 Flow Rate 2 03/01/25 07:53 02/28/25 03/01/25 03/01/25 22:59 06:59 14:59 Intake Total 1840 / 4040 1353.333 / 5393.333 600 / 600 Output Total 650 / 650 Balance 1840 / 4040 1353.333 / 5393.333 -50 / -50 Weight last 48 hrs Weight 110.903 kg Weight 109.225 kg Physical Exam 2 Const: GENERAL APPEARANCE: cooperative and lethargic O RIENTATION/CONSCIOUSNESS: Yes lethargic HENMT: COMMON NORMALS: oropharynx normal Neck/C-Spine: COMMON NORMALS: no JVD Resp: COMMON NORMALS: normal respiratory effort and clear to auscultation bilaterally AUSCULTATION: clear to auscultation bilaterally Cardio: COMMON NORMALS: no JVD, regular rhythm, S1 normal heart sound present, S2 normal heart sound present and No murmurs present (Cardio) RHYTHM: regular rhythm HEART SOUNDS: S1 normal heart sound present and S2 normal heart sound present GI: COMMON NORMALS: Normal to inspection, nondistended, normoactive bowel sounds present, Soft to palpation and non-tender PALPATION: Yes Soft to palpation Extremity: COMMON NORMALS: no joint enlargement and no pedal edema OTHER: Persistent swelling of the right ankle, without erythema, bruising, cyanosis or warmth. Neuro: COMMON NORMALS: moves all extremities SENSORIUM/ORIENTATION: Yes lethargic OTHER: Asterixis improved Skin: COMMON NORMALS: no rashes or lesions noted GENERAL SKIN EXAM: no rashes or lesions noted Data 03/01/25 05:05 03/01/25 05:05 Micro: Microbiology 02/27/25 13:00 Gram Stain - Final Ankle - #1 Anaerobic Culture - Preliminary Wound Culture - Preliminary 02/23/25 12:15 Blood Culture - Final Blood NO GROWTH AFTER 5 DAYS 02/23/25 12:13 Blood Culture - Final Blood NO GROWTH AFTER 5 DAYS A&P Assessment and plan 1. Acute encephalopathy: Worsening acute encephalopathy yesterday, with worsening hyperammonemia. Yesterday lactulose dose was escalated up to 20 g every 4 hours, discussed with nursing staff, continue to target 2-3 soft bowel movements. Today with mild improvement down to 74. Still somnolent. Continued encephalopathy. Continue lactulose as tolerating. She has been refusing some doses. Had refused most of the rectal lactulose. Continue optimization of hepatic encephalopathy to allow for discharge. Discussed with nursing, major case detective. Reassess ammonia. Persistent hypomagnesemia, today still low at 1.7. Give additional 4 g magnesium. Recheck level. Continue reduced dose gabapentin. Discussed with pharmacist, 150 mg tablets unavailable, reduced to 100 mg. Monitor for risk of withdrawal. Also has hydromorphone although has not received it in a while. Reviewed CBC, CMP, blood culture. Without signs of sepsis. Additional consideration of possible withdrawal from prior substance use. Urine positive for amphetamine on admission. DC IV fluid. Discussed with nursing, major case detective. 2. Osteomyelitis of tibia: Discussed with infectious disease specialist, appreciate consultation. Antibiotic is discontinued, without appearance of infection intraoperatively, so far culture negative. Not anticipated to have infection, but ID will follow-up in case of delayed growth on culture antibiotic may be reinstituted. Discussed with nurse, major case detective at this time no plan for further antibiotics. Weightbearing as tolerated in cam boot. Challenging social situation as patient is homeless. History of substance use. Does appear to have a primary care provider. 3. Septic arthritis: Reviewed podiatry note. Without signs of septic arthritis intraoperatively. 4. Positive urine drug screen: 5. Cirrhosis of liver: Continue management of hepatic encephalopathy. Will need follow-up after discharge. 6. Closed trimalleolar fracture: Plan: #right ankle fracture --appreciate dpm eval --will need PT eval and possible cam boot --elevated inflammatory markers, --plan for bone bx, restart abx. ID consulted # Hypomagnesemia: Reviewed magnesium, 1.4 today. Given additional magnesium 2 g. Recheck magnesium level. #hypothyroidism --home medication, TSH stable #DM --fsbs, ssi #liver cirrhosis --monitor lft PDMP PDMP Reviewed: Not Reviewed Attestations 2 Medical Necessity Statement*: Continue admission for assessment and management of acute metabolic encephalopathy, hepatic encephalopathy, possible toxic encephalopathy related to medication, post discharge planning and arrangements in a lady with difficult social situation limiting care. and High MDM includes amount and/or complexity of data reviewed/ordered [ resulted lab(s)/test(s), ordered lab(s)/test(s) and other healthcare professional discussion] as documented Diagnoses Acute encephalopathy G93.40 Osteomyelitis of tibia M86.9 Septic arthritis M00.9 Positive urine drug screen R82.5 Cirrhosis of liver K74.60 Closed trimalleolar fracture S82.556G
[2025-03-01] MEDS: HYDROmorphone tab 2 MG TABLET PO (17:20)
--- NOTE | 2025-03-01 20:20 | P.MISC_ITS ---
Miscellaneous Note Purpose of Documentation: Chart reviewed. Ankle culture remains negative to date. No current abx sharad cated.
[2025-03-02] VITALS (8 sets, daily range): BP systolic 108–122; BP diastolic 70–82; PULSE 75–87; RESP 15–18; TEMP 36.6–36.7; O2SAT 93–95; BMI 35.6
[2025-03-02] MEDS: lactulose oral liq 20 gm/30 mL UDC PO ×2 (04:35→08:20)
[2025-03-02] MEDS: lipase-protease-amylase Capsule 1 EACH PO ×2 (04:35→12:12)
[2025-03-02] MEDS: morphine ER (12 HR) 100 mg Tablet PO ×2 (04:36→12:12)
[2025-03-02] MEDS: NIFEdipine ER (24 hr) 30 mg Tablet PO (04:36)
[2025-03-02] MEDS: silver sulfadiazine cream 1% 50 gm 1 APPLIC TOPICAL (04:36)
[2025-03-02 05:15] LABS: Ammonia 57 umol/L (11-51); Anion Gap 11.0 (5-19); Blood Urea Nitrogen 5 mg/dL (6-20); Calcium 9.0 mg/dL (8.5-10.5); Carbon Dioxide 31 mmol/L (22-29); Chloride 102 mmol/L (98-107); Glucose 113 mg/dL (65-115); Magnesium 1.8 mg/dL (1.7-2.3); Osmolality Calculated 288 mOsm/kg (285-295); Potassium 4.0 mmol/L (3.5-5.1); Sodium 140 mmol/L (136-145)
--- NOTE | 2025-03-02 13:38 | PM.DCS ---
Discharge Providers Date of Admission: 02/23/25 17:35 Date of Discharge: March 02, 2025 Attending Provider at Admission: Juan Alvarado MD Attending Provider at Discharge: Mao Del Rosario Primary Care Provider: Francisco Mckinley DO Diagnoses at Discharge Discharge Diagnosis 1. Acute encephalopathy: 2. Osteomyelitis of tibia: 3. Septic arthritis: 4. Positive urine drug screen: 5. Cirrhosis of liver without ascites, unspecified hepatic cirrhosis type: 6. Closed trimalleolar fracture: Reason for Visit Reason for Visit: ams Brief History: Maribell Foreman is a 49 year old female With history of liver disease, polysubstance use, hypothyroidism who presents via EMS with change in mental status. Unfortunately she was noted to be mildly obtunded. Noted to have an elevated ammonia level. She also had abnormal imaging of her ankle. She did have ankle surgery in the past where she had remove the hardware. There was some discussion of a septic joint. She was evaluated by D.P.M. in the ER and noted that imaging likely suggestive of worsening arthritis and not infection. The patient is arousable with loud voice and tactile stimulation. Her vitals have been stable. Hospital Course Hospital Course She was admitted and started on lactulose for hepatic encephalopathy, with supportive measures for substance intoxication and/for possible withdrawal testing positive for amphetamine, required escalation of lactulose, rectal lactulose, until started having more regular bowel movements. Right ankle evaluated by podiatry, infectious disease, initially with concern of possible osteomyelitis, possible septic arthritis with abnormal ankle x-ray. Treated with IV antibiotic inpatient with broad-spectrum coverage, underwent further operative assessment of the right ankle including tissue specimen, which on evaluation had no appearance of ongoing infection, with tissue culture sample so far remaining negative. She had been de-escalated on antibiotics by ID, and continues to do well. Ankle symptoms improving. Instructed to ambulate only with cam boot with weightbearing as tolerated. With protracted/recurrent encephalopathy, medications de-escalated, de-escalated off gabapentin and asked to discontinue, as well as, Dilaudid dose decreased to 2 mg. She is now more alert, interacting, answering appropriately. She understands and is able to teach back the importance of continuing lactulose with target of 2-3 soft bowel movements per day to keep ammonia level down and avoid recurrence of hepatic encephalopathy. She is ambulating in her room. Case management looked into discharge options with her, however, options are limited. She is discharging with outpatient follow-up with podiatry and PCP. Physical Exam Const: GENERAL APPEARANCE: cooperative ORIENTATION/CONSCIOUSNESS: Yes awake HENMT: COMMON NORMALS: oropharynx normal Neck/C-Spine: COMMON NORMALS: no JVD Resp: COMMON NORMALS: normal respiratory effort and clear to auscultation bilaterally AUSCULTATION: clear to auscultation bilaterally Cardio: COMMON NORMALS: no JVD, regular rhythm, S1 normal heart sound present, S2 normal heart sound present and No murmurs present (Cardio) RHYTHM: regular rhythm HEART SOUNDS: S1 normal heart sound present and S2 normal heart sound present GI: COMMON NORMALS: Normal to inspection, nondistended, normoactive bowel sounds present, Soft to palpation and non-tender PALPATION: Yes Soft to palpation Extremity: COMMON NORMALS: no joint enlargement and no pedal edema OTHER: Swelling of the right ankle with improvement, without erythema, bruising, cyanosis or warmth. Post-biopsy dressing without bleeding. Neuro: COMMON NORMALS: moves all extremities OTHER: Asterixis improved Skin: COMMON NORMALS: no rashes or lesions noted GENERAL SKIN EXAM: no rashes or lesions noted Discharge Data Studies Completed and Pending Completed Studies During Hospitalization Category Date Time Status CT ankle RT w con [id number] Stat Cat Scan 02/23/25 12:[address] head wo con* [id number] Routine Cat Scan 02/24/25 08:56 Completed XR ankle RT min 3V* [id number] Stat Exams 02/23/25 11:29 Completed XR cervical spine 3V* [id number] Routine Exams 02/25/25 11:26 Completed XR chest 1V portable [id number] Stat Exams 02/23/25 11:27 Completed Pending at discharge Category Date Time Status Anaerobic Culture Routine Lab 02/27/25 13:00 Results Basic Metabolic Panel AM LABS Lab 03/03/25 04:00 Ordered Basic Metabolic Panel AM LABS Lab 03/04/25 04:00 Ordered Wound Culture and Gram Stain Routine Lab 02/27/25 13:00 Results Pathology: Surgical [PTH] Routine Pth 02/27/25 13:29 Received Radiology Impressions Chest X-Ray 02/23/25 11:27 IMPRESSION: Stable chest without acute abnormality. Ankle X-Ray 02/23/25 11:29 IMPRESSION: Very likely septic arthritis of the tibiotalar joint with osteomyelitis of the tibia. Ankle CT 02/23/25 12:08 IMPRESSION: 1. Destructive bony process centered at and involving the tibiotalar joint. Significant loss of bone with destruction since 10/28/2020. Highly suspicious for septic joint with osteomyelitis causing the destruction. 2. Linear tract in the distal tibia from prior instrumentation which has been removed. 3. Loss of the normal cortex of the distal fibula consistent with osteomyelitis. Nonunion fracture with displacement distal fibula fracture. 4. Loss of the normal cortical surface of the talus consistent with osteomyelitis. 5. Extensive soft tissue edema with marked synovitis. No well-circumscribed fluid collection. MRI RIGHT ankle with and contrast may provide additional information if the patient is able to cooperate for that examination. Head CT 02/24/25 08:56 IMPRESSION: Negative head CT. Cervical Spine X-Ray 02/25/25 11:26 IMPRESSION: Limited examination with mild degenerative disc disease. No significant malalignment. Minimal left carotid calcified plaque. Laboratory Results WBC 5.27 10^3/uL (3.29-11.43) 03/01/25 05:05 RBC 3.85 10^6/uL (3.85-5.65) 03/01/25 05:05 Hgb 11.60 g/dL (11.27-16.99) 03/01/25 05:05 Hct 35.6 % (36-47) L 03/01/25 05:05 MCV 92.5 fl (85-98) 03/01/25 05:05 MCH 30.1 pg (27-33) 03/01/25 05:05 MCHC 32.6 g/dL (30-55) 03/01/25 05:05 RDW 13.8 % (12.1-15.1) 03/01/25 05:05 Plt Count 189 10^3/cmm (157-399) 03/01/25 05:05 MPV 10.1 fL (7.4-10.4) 03/01/25 05:05 Neut % (Auto) 54.8 % 03/01/25 05:05 Lymph % (Auto) 28.8 % 03/01/25 05:05 Noble % (Auto) 10.8 % 03/01/25 05:05 Eos % (Auto) 4.6 % 03/01/25 05:05 Baso % (Auto) 0.8 % 03/01/25 05:05 Neut # (Auto) 2.89 10^3/uL (1.8-7.7) 03/01/25 05:05 Lymph # (Auto) 1.5 10^3/uL (0.8-4.8) 03/01/25 05:05 Noble # (Auto) 0.6 10^3/uL (0.2-0.9) 03/01/25 05:05 Eos # (Auto) 0.2 10^3/uL (0.0-0.8) 03/01/25 05:05 Baso # (Auto) 0.0 10^3/uL (0.0-0.1) 03/01/25 05:05 Nucleated RBC % (auto) 0 % 03/01/25 05:05 Nucleated RBCs # 0.0 /100WBC 03/01/25 05:05 ESR 75 mm/hr (0-15) H 02/23/25 11:24 Specimen Type Arterial 02/23/25 11:44 Sample Site Radial, right 02/23/25 11:44 ABG pH 7.38 (7.35-7.45) 02/23/25 11:44 ABG pCO2 45.3 mmHg (35-45) H 02/23/25 11:44 ABG pO2 71.5 mmHg (80.0-100.0) L 02/23/25 11:44 ABG PO2/FiO2 Ratio 340 02/23/25 11:44 ABG HCO3 27.0 mmol/L (22-26) H 02/23/25 11:44 ABG O2 Saturation 93.9 02/23/25 11:44 ABG Base Excess 1.4 mmol/L (-2.0-2.0) 02/23/25 11:44 Dusty Test Pos 02/23/25 11:44 A-a O2 Gradient 3.1 mmHg (5-10) L 02/23/25 11:44 Hematocrit 42.2 % (37-47) 02/23/25 11:44 Hgb O2 Saturation 91.7 % (95-100) L 02/23/25 11:44 Carboxyhemoglobin 1.4 %THgb (0.4-20.1) 02/23/25 11:44 Methemoglobin 0.9 % (0.4-1.5) 02/23/25 11:44 Total Hemoglobin 13.8 g/dL (12-16) 02/23/25 11:44 Sodium 142.0 mmol/L (131-143) 02/23/25 11:44 Potassium 3.3 mmol/L (3.5-5.0) L 02/23/25 11:44 Glucose 89.0 mg/dL (70-115) 02/23/25 11:44 Ionized Calcium 1.2 mmol/L (1.1-1.4) 02/23/25 11:44 O2 Delivery Device Room air 02/23/25 11:44 FiO2 21.0 % 02/23/25 11:44 Air Conditioning Coil Assembler ID [place] 02/23/25 11:44 Sodium 140 mmol/L (136-145) 03/02/25 04:46 Potassium 4.0 mmol/L (3.5-5.1) 03/02/25 04:46 Chloride 102 mmol/L (98-107) 03/02/25 04:46 Carbon Dioxide 31 mmol/L (22-29) H 03/02/25 04:46 Anion Gap 11.0 (5-19) 03/02/25 04:46 BUN 5 mg/dL (6-20) L 03/02/25 04:46 Creatinine 0.5 mg/dL (0.5-0.9) 03/02/25 04:46 GFR Calculation 130.6 mL/min (90-130) H 03/02/25 04:46 Glucose 113 mg/dL (65-115) 03/02/25 04:46 POC Glucose 99 mg/dL (70-110) 03/02/25 11:24 Lactic Acid 1.3 mmol/L (0.5-2.2) 02/23/25 11:24 Calculated Osmolality 288 mOsm/kg (285-295) 03/02/25 04:46 Calcium 9.0 mg/dL (8.5-10.5) 03/02/25 04:46 Magnesium 1.8 mg/dL (1.7-2.3) 03/02/25 04:46 Total Bilirubin 0.6 mg/dL (0.15-1.2) 02/26/25 05:35 AST 30 U/L (0-32) 02/26/25 05:35 ALT 11 U/L (0-33) 02/26/25 05:35 Alkaline Phosphatase 97 U/L (35-105) 02/26/25 05:35 Ammonia 57 umol/L (11-51) H 03/02/25 04:46 C-Reactive Protein 26.3 mg/L (0.0-4.9) H 02/23/25 11:24 Total Protein 6.3 g/dL (6.6-8.7) L 02/26/25 05:35 Albumin 2.9 g/dL (3.5-5.2) L 02/26/25 05:35 Globulin 3.4 g/dL (1.3-4.6) 02/26/25 05:35 TSH 2.10 uIU/mL (0.27-4.20) 02/23/25 11:24 HCG, Qual Negative (Negative) 02/25/25 04:41 Urine Color Yellow (Yellow) 02/23/25 12:00 Urine Appearance Clear (CLEAR) 02/23/25 12:00 Urine pH 6.0 (5-7) 02/23/25 12:00 Ur Specific [place] 1.016 (1.005-1.030) 02/23/25 12:00 Urine Protein Negative (Negative) 02/23/25 12:00 Urine Glucose (UA) Negative (Normal) 02/23/25 12:00 Urine Ketones Negative (Negative) 02/23/25 12:00 Urine Blood Negative (Negative) 02/23/25 12:00 Urine Nitrate Negative (Negative) 02/23/25 12:00 Urine Bilirubin Negative (Negative) 02/23/25 12:00 Urine Urobilinogen 1.0 mg/dL (Negative) 02/23/25 12:00 Ur Leukocyte Esterase Negative (Negative) 02/23/25 12:00 Urine RBC 0-2 /hpf (0-2) 02/23/25 12:00 Urine WBC 6-10 /hpf (0-5) 02/23/25 12:00 Ur Squamous Epith Cells 6-10 /hpf (0-5) 02/23/25 12:00 Amorphous Sediment Not Reportable 02/23/25 12:00 Urine Bacteria 2+ /hpf (NONE) H 02/23/25 12:00 Hyaline Casts 4.95 /lpf 02/23/25 12:00 Urine Opiates Screen Positive ng/mL (Negative) H 02/23/25 12:00 Ur Barbiturates Screen Negative ng/mL (Negative) 02/23/25 12:00 Ur Phencyclidine Scrn Negative ng/mL (Negative) 02/23/25 12:00 Ur Amphetamines Screen Positive ng/mL (Negative) H 02/23/25 12:00 U Benzodiazepines Scrn Negative ng/mL (Negative) 02/23/25 12:00 Urine Cocaine Screen Negative ng/mL (Negative) 02/23/25 12:00 U Marijuana (THC) Screen Positive ng/mL (Negative) H 02/23/25 12:00 Serum Ketones Negative (Negative) 02/23/25 11:24 Influenza A (PCR) Negative (Negative) 02/23/25 12:00 Influenza Type B (PCR) Negative (Negative) 02/23/25 12:00 RSV (PCR) Negative (Negative) 02/23/25 12:00 SARS-CoV-2 (PCR) Negative (Negative) 02/23/25 12:00 Vitals Last Vital Signs Temp 98.0 F 03/02/25 11:58 Pulse 78 03/02/25 11:58 Resp 18 03/02/25 12:12 BP 108/70 03/02/25 11:58 Pulse Ox 95 03/02/25 11:58 O2 Del Method Nasal Cannula 03/02/25 11:58 O2 Flow Rate 2 03/02/25 10:04 Discharge Plan Discharge Patient Disposition: Home Condition: Stable Prescriptions: New lactulose 10 gram/15 mL Solution 20 g PO 5XD Qty: 3000 3RF Continued (DME) [place] AFO See Rx Instructions .Route .MEDSUPPLY Qty: 1 0RF Rx Instructions: Directed by the Jose Bagley amitriptyline 75 mg tablet 75 mg PO BEDTIME albuterol sulfate [Ventolin HFA] 90 mcg/actuation HFA aerosol inhaler 2 puff INHALATION Q6H PRN (Reason: Shortness Of Breath) lamotrigine [Lamictal] 100 mg tablet 100 mg PO DAILY magnesium oxide 400 mg magnesium tablet 400 mg PO BEDTIME Qty: 30 0RF Rx Instructions: Take 1 p.o. at night silver sulfadiazine 1 % cream 1 applic TOPICAL BID umeclidinium-vilanterol [Anoro Ellipta] 62.5-25 mcg/actuation blister with device 1 inh INHALATION DAILY prochlorperazine maleate 10 mg tablet 10 mg PO Q6H PRN (Reason: nausea/emesis) ergocalciferol (vitamin D2) [Vitamin D2] 1,250 mcg (50,000 unit) capsule 1,250 mcg PO Q7D levothyroxine 50 mcg tablet 50 mcg PO QAM 30 Days Qty: 30 2RF Creon 3,000-9,500- 15,000 unit capsule,delayed release(DR/EC) 1 cap PO TID 30 Days Qty: 30 0RF ipratropium-albuterol 0.5 mg-3 mg(2.5 mg base)/3 mL solution for nebulization 3 ml inhalation Q4H Rx Instructions: use 1 vial IN NEBULIZER EVERY 4 HOURS NEEDED FOR WHEEZING OR SHORTNESS OF BREATH insulin glargine [Lantus U-100 Insulin] 100 unit/mL solution 10 unit SUBCUT DIRECTED Rx Instructions: inject 10 units SUBCUTANEOUSLY at breakfast and 40 units AT BEDTIME spironolactone [Aldactone] 100 mg Tablet 100 mg PO DAILY isosorbide mononitrate 60 mg tablet extended release 24 hr 60 mg PO DAILY morphine [MS Contin] 100 mg tablet extended release 100 mg PO Q8H Rx Instructions: max 3per day nifedipine [Procardia XL] 30 mg tablet extended release 24hr 30 mg PO DAILY naloxone [Narcan] 4 mg/actuation spray,non-aerosol 4 mg intranasal Q2M PRN (Reason: opioid overdose) Qty: 2 0RF Rx Instructions: spray 1 dose into ONE nostril; alternate nostrils w each dose until help arrives potassium chloride 20 mEq tablet extended release 20 meq PO DAILY tizanidine 4 mg tablet 4 mg PO Q6H PRN (Reason: Spasms) Changed furosemide 40 mg tablet 40 mg PO DIRECTED PRN (Reason: Edema) Qty: 1 0RF Rx Instructions: take as needed for worsening edema hydromorphone 4 mg tablet 2 mg PO BID PRN (Reason: pain) Qty: 7 0RF Discontinued (DME) Knee Scooter See Rx Instructions .Route .MEDSUPPLY Qty: 1 0RF Rx Instructions: As directed by Emanuel gabapentin 300 mg capsule 600 mg PO BID Discharge Order = DC NOW: Discharge Order (Routine); Ordered 03/02/25 Ordered By: Mao Del Rosario Referrals: [facility] [Staff Physician, Behavioral Health] Referral Note: Behavioral Health Care Walk In Assessment Mon-Fri between 7:30AM and 4:30PM. Ask for [facility] Referral to obtain a Casemanager. Meliton Rodriguez DPM [Physician, Podiatry] - 03/09/25 2:00 pm Francisco Mckinley DO [Primary Care Provider] - 4-7 days Referral Note: We have notified your physician's clinic of the need for a follow-up appointment to be scheduled. If you have not heard from them within the next 2 business days, please call them directly. Patient Instructions: Lactulose (By mouth), Altered Mental Status (ED), Bone Biopsy (DC), Opioid Safety, Patient Portal & Marcelino Instructions Activity Restrictions/Additional Instructions: PODIATRY DISCHARGE INSTRUCTIONS--DR. RODRIGUEZ -Dressing changes: None -Follow up: Follow-up with podiatry within 10 days of discharge from hospital -Weightbearing status: Weightbearing as tolerated in cam boot to right foot -Antibiotics: Per infectious disease -Please contact podiatry clinic at [phone] with any questions regarding patient's discharge Please make sure to otherwise wear the cam boot whenever you are walking. Please make sure to take lactulose at least 4-5 times daily to target at least 2-3 soft bowel movements in a day to keep ammonia level down and prevent sleepiness, confusion, coma. Please follow-up with your primary doctor regarding liver cirrhosis. Avoid any substance use. Seek medical attention in case of any worsening or new concerning symptoms. Discharge Attestations Time Spent in Discharge Care*: greater than 30 min Quality Metrics Clinical Quality Measures [ No reported AMI, CVA or VTE this stay] Coding Level of Care Code 30571 Total time (in minutes) for Discharge: 40 Diagnoses Acute encephalopathy G93.40 Osteomyelitis of tibia M86.9 Septic arthritis M00.9 Positive urine drug screen R82.5 Cirrhosis of liver without ascites, unspecified hepatic cirrhosis type K74.60 Ascites presence: without ascites Hepatic cirrhosis type: unspecified hepatic cirrhosis Closed trimalleolar fracture S82.851A Encounter type: initial encounter Laterality: right
== END 2025-03-02 14:15 | disposition home or self-care (01) ==
LOC: ER 16:38 → ER IP 17:36 → MEDSURG 18:47
PROVIDERS: Podiatrist Foot & Ankle Surgery; Admitting Provider Internal Medicine; Emergency Provider Family Medicine; PCP Family Medicine; Visit Provider Internal Medicine
PROC: 0QBG0ZX Excision of Right Tibia, Open Approach, Diagnostic (ICD-10-PCS; principal; 2025-02-27 12:50)
DX: K76.82 Hepatic encephalopathy (principal); G92.8 Other toxic encephalopathy; M12.571 Traumatic arthropathy, right ankle and foot; S82.851S Displaced trimalleolar fracture of right lower leg, sequela; K74.60 Unspecified cirrhosis of liver; E03.9 Hypothyroidism, unspecified; E87.6 Hypokalemia; E11.9 Type 2 diabetes mellitus without complications; G40.909 Epilepsy, unspecified, not intractable, without status epilepticus; J44.9 Chronic obstructive pulmonary disease, unspecified; I10 Essential (primary) hypertension; E83.42 Hypomagnesemia; Z91.199 Patient's noncompliance with other medical treatment and regimen due to unspecified reason; Z87.891 Personal history of nicotine dependence; Z86.711 Personal history of pulmonary embolism; Z79.4 Long term (current) use of insulin; X58.XXXS Exposure to other specified factors, sequela
CPT/HCPCS: 36415; 36416; 36600; 70450; 71045; 72040; 73610; 73701; 80048; 80051; 80053; 80306; 81001; 82009; 82140; 82330; 82805; 82962; 83605; 83735; 84443; 84703; 85025; 85651; 86140; 87040; 87070; 87075; 87205; 87637; 88307; 88311; 93005; 94640; 96360; 97760; 99285; J1100; J2250; J2405; J2704; J3010; J3475; J3480; J3490; J7030; J9999; L4361

== ENCOUNTER → 2025-03-10 10:01 | Outpatient (BNVA) | payer MEDICAID, SELFPAY | PROVIDERS: PCP Family Medicine; Visit Provider Podiatrist Foot & Ankle Surgery | DX: Z98.890 Other specified postprocedural states (principal); S82.851A Displaced trimalleolar fracture of right lower leg, initial encounter for closed fracture; Z91.199 Patient's noncompliance with other medical treatment and regimen due to unspecified reason; M17.31 Unilateral post-traumatic osteoarthritis, right knee; X58.XXXA Exposure to other specified factors, initial encounter | CPT/HCPCS: 99214 ==

== ENCOUNTER 2025-03-13 15:32 | Emergency (ER) | payer MEDICAID, SELFPAY ==
[2025-03-13] VITALS (7 sets, daily range): BP systolic 78–135; BP diastolic 56–91; PULSE 71–72; RESP 18; TEMP 36.7; O2SAT 93–97; BMI 43.4
--- OUTSIDE RECORDS SUMMARY | 2025-03-13 15:36 | XMS_ITS | Encounter Summary ---
Author Organization [facility] Address [address] [place] [address] Care Team Providers Care Web Designer Developer Name Role Phone Francisco Mckinley DO Primary Care Provider [phone] Reason for Visit * Reason Comments Med Refill Encounter Details Date Type Department Care Team (Late st Contact Info) Description 03/10/2025 Refill [facility] Medicine [address] [phone] Francisco Mckinley DO [address] [place] [phone] Uncomplicated opioid dependence; Cellulitis of right lower extremity; Cellulitis of left lower extremity; History of hepatitis C; Chronic cholecystitis without calculus; RUQ abdominal pain; [...] on file Legal Sex Female 2:09 PM VENTILATED RIB FITTER Gender Identity Not on file Sexual Orientation Not on file documented as of this encounter Miscellaneous Notes * Telephone Encounter - Daily Flores LPN - 03/11/2025 1:22 PM CST Medication Refill Request Last Fill Date:03/03/25 Recent and Future Visits: Recent Visits Date Type Provider Dept 12/24/24 Video Visit Francisco Mckinley DO [facility] 07/07/24 Video Visit Ailyn Leon FNP [facility] 06/27/24 Video Visit Francisco Mckinley DO [facility] 04/03/24 Office Visit Francisco Mckinley DO [facility] 02/01/24 Office Visit Francisco Mckinley DO [facility] 12/27/23 Office Visit Francisco Mckinley DO [facility] 12/13/23 Office Visit Francisco Mckinley DO [facility] 09/27/23 Office Visit Francisco Mckinley DO [facility] Showing recent visits within past 540 days with a meds authorizing provider and meeting all other requirements Future Appointments Date Type Provider Dept 03/23/25 Appointment Francisco Mckinley DO [facility] 03/31/25 Appointment Francisco Mckinley DO [facility] Showing future appointments within next 365 days with a meds authorizing provider and meeting all other requirements ILATED RIB FITTER documented in this encounter Plan of Treatment Upcoming Encounters Date Type Department Care Team (Late st Contact Info) Description 03/23/2025 1:00 PM VENTILATED RIB FITTER Video Visit [address] [phone] Francisco Mckinley DO [address] [place] [phone] 03/31/2025 9:00 AM VENTILATED RIB FITTER Office Visit [address] [phone] Francisco Mckinley DO [address] [place] [phone] documented as of this encounter Visit Diagnoses Diagnosis Uncomplicated opioid dependence Opioid type dependence, unspecified Cellulitis of right lower extremity Cellulitis and abscess of leg, except foot Cellulitis of left lower extremity Cellulitis and abscess of leg, except foot History of hepatitis C Personal history of other infectious and parasitic disease Chronic cholecystitis without calculus Chronic cholecystitis RUQ abdominal pain Abdominal pain, right upper quadrant Closed fracture of left ankle, sequela documented in this encounter Care Teams Web Designer Developer Relationship Specialty Start Date End Date Francisco Mckinley DO [address], [place] [address] PCP - General 06/07/20 documented as of this encounter
--- OUTSIDE RECORDS SUMMARY | 2025-03-13 15:36 | XMS_ITS | Encounter Summary ---
Author Organization [facility] Address [address] [place] [address] Care Team Providers Care Shipyard Painter Name Role Phone Francisco Mckinley DO Primary Care Provider [phone] Reason for Visit * Reason Onset Date Comments Needs Appointment 02/20/2025 Encounter Details Date Type Department Care Team (Late st Contact Info) Description 02/20/[address] [facility] Medicine [address] [phone] Francisco Mckinley DO [address] [place] [phone] Needs Appointment Social History Tobacco Use Types Packs/Day Years [...] any time in the past 12 m [facility], were you homeless or living in [...] on file Legal Sex Female 2:09 PM DATA PROCESSING SPECIALIST Gender Identity Not on file Sexual Orientation Not on file documented as of this encounter Plan of Treatment Upcoming Encounters Date Type Department Care Team (Late st Contact Info) Description 03/23/2025 1:00 PM DATA PROCESSING SPECIALIST Video Visit [address] [phone] Francisco Mckinley DO [address] [place] [phone] 03/31/2025 9:00 AM DATA PROCESSING SPECIALIST Office Visit [facility] [address] [phone] Francisco Mckinley DO [address] [place] [phone] documented as of this encounter Visit Diagnoses Not on filedocumented in this encounter Care Teams Shipyard Painter Relationship Specialty Start Date End Date Francisco Mckinley DO [address] [place] [address] PCP - General 06/07/20 documented as of this encounter
--- OUTSIDE RECORDS SUMMARY | 2025-03-13 15:36 | XMS_ITS | Encounter Summary ---
Author Organization [facility] Address [address] [place] [address] Care Team Providers Care Cloth Winding Supervisor Name Role Phone Francisco Mckinley DO Primary Care Provider Encounter Details Date Type Department Care Team (Late st Contact Info) Description 04/04/2024 Results Follow-Up [facility] [address] [place] [address] Meliton Mckinley MD [address] [place] [address] POC URINALYSIS DIPSTICK AUTOMATED Social [...] any time in the past 12 m [facility], were you homeless or living in a detention (including now)? Yes 02/01/2024 Feeling Safe Answer Date Recorded Are you in a relationship wi th someone who hurts you emotionally and/or physically? No 10/03/2022 Comments No Sex and Gender Information Value Date Recorded Sex Assigned at Not on file Legal Sex Female 2:09 PM BUILDING AND CONSTRUCTION MANAGER Gender Identity Not on file Sexual Orientation Not on file documented as of this encounter Plan of Treatment Upcoming Encounters Date Type Department Care Team (Late st Contact Info) Description 03/23/2025 1:00 PM BUILDING AND CONSTRUCTION MANAGER Video Visit [facility] [address] [phone] Francisco Mckinley DO [address] [place] [phone] 03/31/2025 9:00 AM BUILDING AND CONSTRUCTION MANAGER Office Visit [address] [phone] Francisco Mckinley DO [address] [place] [phone] documented as of this encounter Visit Diagnoses Not on filedocumented in this encounter Additional Health Concerns Assessment Noted Time PHQ-9 Depression Total Score: 3 04/03/19 25 12:00 PM BUILDING AND CONSTRUCTION MANAGER documented as of this encounter Care Teams Cloth Winding Supervisor Relationship Specialty Start Date End Date Francisco Mckinley DO [address] [place] [phone] PCP - General 06/07/20 documented as of this encounter
--- OUTSIDE RECORDS SUMMARY | 2025-03-13 15:36 | XMS_ITS | Clinical Summary ---
Author Organization [address] Address [address] [place] [address] Care Team Providers Care Pattern Checker Name Role Phone Francisco Mckinley DO Primary Care Provider [phone] Allergies Active Allergy Reactions Criticality Noted Date Comments Aspirin Swelling High 09/15/2013 Codeine Hives High 07/18/2013 Ketorolac Hives High 04/09/2024 Sulfa (Sulfonamide Antibiotics) Hives High 09/15/2013 Trazodone Hcl Other (See Comments) 06/14/2021 Leg spasms Medications Oral Medication Containers (Sharps Container) For use with disposable syringe and needle. 1 Each 3 021 Active naloxone (Narcan) 4 mg/spray [place], Non-Aerosol EMERGENCY USE ONLY: ADMINISTER ONE SPRAY [...] polyneuropathy, with long-term current use of insulin ([facility]) inject 10 units SUBCUTANEOUSLY at breakfast and 40 units AT BEDTIME 30 mL 3 025 Active OneTouch Verio Flex meterIndications :Type 2 diabetes mellitus with diabetic polyneuropathy, with long-term current use of insulin ([facility]) Check blood glucose if symptoms of hyperglycemia or hypoglycemia. DX E11.9 1 Each 025 Active blood sugar diagnostic (OneTouch Verio test strips) StripIndications :Type 2 diabetes mellitus with diabetic polyneuropathy, with long-term current use of insulin ([facility]) 1 Strip 3 times daily before meals. 100 Strip 2 Active BD Insulin Syringe Ultra-Fine 1 mL 31 gauge x 5/16 SyringeIndicatio ns:Type 2 diabetes mellitus with diabetic polyneuropathy, with long-term current use of insulin ([facility]) FOR USE with insulin injections THREE TIMES DAILY (lantus and humalog) 200 Each 3 Active Blood-Glucose Meter,Continuous (Dexcom G7 Executive Compensation Analyst)Indicat ions:Type 2 diabetes mellitus with diabetic polyneuropathy, with long-term current use of insulin ([facility]) Use to monitor blood glucose continuously throughout the day. 1 Each Active Blood-Glucose Sensor (Dexcom G7 Sensor) DeviceIndication s:Type 2 diabetes mellitus with diabetic polyneuropathy, with long-term current use of insulin ([facility]) USE TO MONITOR BLOOD GLUCOSE CONTINUOUSLY THROUGH THE DAY. CHANGE SENSOR EVERY 10 DAYS. 9 Each 3 Active lamoTRIgine (LaMICtal) 100 mg tabletIndication s:Seizure disorder ([facility]) Take 1 Tablet (100 mg) by mouth daily. 90 Tablet 3 Active magnesium HYDROXIDE (Milk Of Magnesia Concentrated) 2,400 mg/10 mL Suspension Take by mouth. Active bisacodyL (Dulcolax, bisacodyl,) 10 mg Suppository Insert by rectum. Active Nebulizer Accessories KitIndications:P anlobular emphysema ([facility]) Disposable mask and tubing for [...] 025 Active HYDROmorphone (DILAUDID) 4 mg tabletIndication s:Uncomplicated opioid dependence (CMS/HCC),Cellul itis of right lower extremity,Cellul itis of left lower extremity,Histor y of hepatitis C,Chronic cholecystitis without calculus,RUQ abdominal pain,Closed fracture of left ankle, sequela Take 1 Tablet (4 mg) by mouth 1 time daily as needed for Pain. MUST LAST SEVEN DAYS Max Daily Amount: 4 mg 7 Tablet 025 Active morphine (MS CONTIN) 100 [...] Daily Amount: 4 mg 10 Tablet 025 2024 Discontinued(R eorder) HYDROmorphone (DILAUDID) [...] Daily Amount: 4 mg 10 Tablet 025 2024 Discontinued(R eorder) HYDROmorphone (DILAUDID) 4 mg tabletIndication s:Cellulitis of right lower extremity,Cellul itis of left lower extremity,Histor y of hepatitis C,Uncomplicated opioid dependence (CMS/HCC),Chroni c cholecystitis without calculus,RUQ abdominal pain,Closed fracture of left ankle, sequela Take 1 Tablet (4 mg) by mouth 1 time daily as needed for Pain, Break-Through. MUST LAST SEVEN DAYS Max Daily Amount: 4 mg 7 Tablet 025 2024 Discontinued HYDROmorphone (DILAUDID) 4 mg tabletIndication s:Cellulitis of right lower extremity,Cellul itis of left lower extremity,Histor y of hepatitis C,Uncomplicated opioid dependence (CMS/HCC),Chroni c cholecystitis without calculus,RUQ abdominal pain,Closed fracture of left ankle, sequela Take 1 Tablet (4 mg) by mouth one time as needed for Pain. 7 Tablet 025 2024 Discontinued(R eorder) Active Problems [...] Encounters Date Type Department Care Team Description 03/10/[address] [phone] Francisco Mckinley DO Uncomplicated opioid dependence; Cellulitis of right lower extremity; Cellulitis of left lower extremity; History of hepatitis C; Chronic cholecystitis without calculus; RUQ abdominal pain; Closed fracture of left ankle, sequela 03/03/2025 External Device Data STL ABSTRACTION Provider, Abstract 02/27/[address] [address] Francisco Mckinley DO Uncomplicated opioid dependence; Hospice care patient; Other chronic pancreatitis (CMS/HCC); Cellulitis of right lower extremity; Cellulitis of left lower extremity; History of hepatitis C; Chronic cholecystitis without calculus; RUQ abdominal pain; Closed fracture of left ankle, sequela 02/26/[address] [address] Francisco Mckinley DO Cellulitis of right lower extremity; Cellulitis of left lower extremity; History of hepatitis C; Uncomplicated opioid dependence; Chronic cholecystitis without calculus; RUQ abdominal pain; Closed fracture of left ankle, sequela 02/23/2025 Patient Self-Triage [facility] [address] [place] [address] 02/23/2025 Patient Self-Triage [facility] [address] [place] [address] 02/20/[address] [address] Francisco Mckinley DO Cellulitis of right lower extremity; Cellulitis of left lower extremity; History of hepatitis C; Uncomplicated opioid dependence; Chronic cholecystitis without calculus; RUQ abdominal pain; Closed fracture of left ankle, sequela 02/20/[address] [address] Francisco Mckinley DO Needs Appointment 02/18/[address] [address] Francisco Mckinley DO Medication Assistance; Patient Communication 02/17/2025 External Device Data STL ABSTRACTION Provider, Abstract 02/17/2025 External Device Data STL ABSTRACTION Provider, Abstract 02/13/[address] [address] Francisco Mckinley DO Cellulitis of right lower extremity; Cellulitis of left lower extremity; History of hepatitis C; Uncomplicated opioid dependence; Chronic cholecystitis without calculus; RUQ abdominal pain; Closed fracture of left ankle, sequela 02/09/[address] [address] Francisco Mckinley DO Cellulitis of right lower extremity; Cellulitis of left lower extremity; History of hepatitis C; Uncomplicated opioid dependence; Chronic cholecystitis without calculus; RUQ abdominal pain; Closed fracture of left ankle, sequela 02/03/2025 External Device Data STL ABSTRACTION Provider, Abstract 01/30/[address] [address] Francisco Mckinley DO Cellulitis of right lower extremity; Cellulitis of left lower extremity; History of hepatitis C; Uncomplicated opioid dependence; Chronic cholecystitis without calculus; RUQ abdominal pain; Closed fracture of left ankle, sequela 01/30/[address] [address] Francisco Mckinley DO Uncomplicated opioid dependence; Hospice care patient; Other chronic pancreatitis (CMS/HCC) 01/27/2025 External Device Data STL ABSTRACTION Provider, Abstract 01/23/[address] [address] Francisco Mckinley DO Nausea and vomiting, unspecified vomiting type (Primary Dx) 01/23/[address] [address] Francisco Mckinley DO Cirrhosis of liver without ascites, unspecified hepatic cirrhosis type (CMS/HCC); Lymphedema of both lower extremities 01/21/[address] [phone] Francisco Mckinley DO Cellulitis of right lower extremity; Cellulitis of left lower extremity; History of hepatitis C; Uncomplicated opioid dependence; Chronic cholecystitis without calculus; RUQ abdominal pain; Closed fracture of left ankle, sequela 01/14/[address] [phone] Francisco Mckinley DO Cellulitis of right lower extremity; Cellulitis of left lower extremity; History of hepatitis C; Uncomplicated opioid dependence; Chronic cholecystitis without calculus; RUQ abdominal pain; Closed fracture of left ankle, sequela 01/14/[address] [phone] Francisco Mckinley DO Neuropathy; Muscle spasm 01/08/[address] [phone] Francisco Mckinley DO Cellulitis of right lower extremity; Cellulitis of left lower extremity; History of hepatitis C; Uncomplicated opioid dependence; Chronic cholecystitis without calculus; RUQ abdominal pain; Closed fracture of left ankle, sequela 01/01/[address] [phone] Francisco Mckinley DO Cellulitis of right lower extremity; Cellulitis of left lower extremity; History of hepatitis C; Uncomplicated opioid dependence; Chronic cholecystitis without calculus; RUQ abdominal pain; Closed fracture of left ankle, sequela 12/26/[address] [phone] Francisco Mckinley DO Uncomplicated opioid dependence; Hospice care patient; Other chronic pancreatitis (CMS/HCC) 12/26/[address] [place] [address] Francisco Mckinley DO Cellulitis of right lower extremity; Cellulitis of left lower extremity; History of hepatitis C; Uncomplicated opioid dependence; Chronic cholecystitis without calculus; RUQ abdominal pain; Closed fracture of left ankle, sequela 12/25/[address] [address] Francisco Mckinley DO Clinical Consult Before Scheduling 12/24/2024 4:00 PM CDT Video Visit [address] [address] Francisco Mckinley DO Primary thrombocytopenia (CMS/HCC) 12/23/2024 External Device Data STL ABSTRACTION Provider, Abstract 12/18/2024 Medication Prior Auth Encounter [facility] Prescription Management Dept [address] [place] [address] [place] [id number] Ofelia Guadalupe, PHARMACIST 12/18/[address] [address] Francisco Mckinley DO Cellulitis of right lower extremity; Cellulitis of left lower extremity; History of hepatitis C; Uncomplicated opioid dependence; Chronic cholecystitis without calculus; RUQ abdominal pain; Closed fracture of left ankle, sequela 12/16/2024 External Device Data STL ABSTRACTION Provider, Abstract from Last 3 Months Immunizations Immunization Administration Dates Next Due (ADACEL/BOOSTRIX)(10 YR UP) TDAP VACCINE, 0.5ML, IM 09/26/2021 (HAVRIX/VAQTA)(19 YRS UP) HE PATITIS A VACCINE ADULT DOSAGE 1 ML IMM 04/10/2006 (PREVNAR 20)(6 WKS UP) PNEUM OCOCCAL CONJUGATE VACCINE 20-VALENT (PCV20), POLYSACCHARIDE [id number] CONJUGATE, ADJUVANT 0.5 ML (PF) IM 12/19/2022 INFLUENZA VACCINE QUADRIVALE NT 6 MOS UP PF IM 12/19/2022,01/01/2019,06/07/2017 Family History Medical History Relation Name Comments Unknown Brother 1 Unknown Brother 2 Unknown Brother 3 Unknown Brother 4 Heart Disease Brother 5 of [place]. Other Brother 6 of suicide . Unknown Brother 7 Unknown Brother 8 Heart Disease Father Chavo Rios of [place]. Respiratory Disease Father Chavo Rios Has lung [...] any time in the past 12 m [facility], were you homeless or living in [...] on file Legal Sex Female 2:09 PM APPRENTICE PLUMBER Gender Identity Not on file Sexual Orientation Not on file Last Filed Vital Signs Vital Sign Reading Time Taken Comments Blood Pressure 123/79 05/21/2024 1:00 PM APPRENTICE PLUMBER Pulse 83 05/21/2024 1:00 PM APPRENTICE PLUMBER Temperature 36.6 C (97.9 F) 05/21/2024 1:00 PM APPRENTICE PLUMBER Respiratory Rate 18 05/21/2024 1:00 PM APPRENTICE PLUMBER Oxygen Saturation 96% 05/21/2024 1:00 PM APPRENTICE PLUMBER Inhaled Oxygen Concentration - - Weight 109.3 kg (241 lb) 07/07/2024 2:02 PM CDT Height 182.9 cm (6') 07/07/2024 2:02 PM CDT Body Mass Index 32.69 07/07/2024 2:02 PM CDT Plan of Treatment Upcoming Encounters Date Type Department Care Team (Late st Contact Info) Description 03/23/2025 1:00 PM APPRENTICE PLUMBER Video Visit [facility] [address] [phone] Francisco Mckinley, [address] [place] [phone] 03/31/2025 9:00 AM APPRENTICE PLUMBER Office Visit [facility] [address] [phone] Francisco Mckinley, [address] [place] [phone] Health Maintenance Due Date Last Done Comments [...] 09/27/2031 09/26/2021 Medical Devices Implanted Type Area Maintenance Foreman Device Identifier Shelf Expiration Date Model / Serial / Lot Medtronic Ra Lead 5076-52-05/10/19 Implanted:05/10 (Quantity not on file) Lead [employer] 5076-52 / [id number] / Medtronic Rv Lead 5076-58-05/10/19 23 Implanted:05/10 (Quantity not on file) Lead [employer] 5076-58 / [id number] / Medtronic Pacemaker [id number]/22/202 3 Implanted:05/10 (Quantity not on file) Pacemaker [employer] [id number] / [id number] / Description:Dr. Wyman [place] [phone] Procedures Procedure Name Priority Date/Time Associated Diagnosis Comments LIPID PANEL Routine 09/23/2024 HEMOGLOBIN A1C Routine 09/23/2024 MICROALBUMIN/CREATIN INE RATIO, RANDOM UR Routine 04/03/2024 1:11 PM APPRENTICE PLUMBER Type 2 diabetes mellitus with diabetic polyneuropathy, with long-term current use of insulin ([facility]) COLONOSCOPY REPORT 10/03/2022 3: 34 PM CDT HM DIABETES EYE EXAM Routine 07/30/2022 10:18 AM CDT MAMMO SCREEN BILAT W OR WO CAD Routine 04/29/2019 12:45 PM APPRENTICE PLUMBER Visit for screening mammogram from Last 3 Months or Most Recently Relevant to Health Maintenance Results * HEMOGLOBIN A1C (09/23/2024) Pathologist [facility] [place] ABSTRACTED HGB A1C 5.9 % Blood 09/23/2024 us Abstract Provider CHEMISTRY ORDERABLES Final Res ult * LIPID PANEL (09/23/2024) Pathologist [facility] [place] ABSTRACTED CHOLESTEROL 176 ABSTRACTED TRIGLYCERIDE 101 ABSTRACTED HDL 45 ABSTRACTED LDL CALCULATED 111 Blood 09/23/2024 us Abstract Provider CHEMISTRY ORDERABLES Final Res ult * MICROALBUMIN/CREATININE RATIO, RANDOM UR (04/03/2024 1:11 PM APPRENTICE PLUMBER) Creatinine, Urine 222 20 - 275 mg/dL [...] within a diagnostic category. Test Performed at: [employer] [address] [facility] [place] [address] Mckinley Urbano MD Urine URINE SPECIMEN OBTAINED BY CLEAN CATCH PROCEDURE / Unknown 04/03/2024 1:11 PM APPRENTICE PLUMBER 04/04/2024 2:48 AM APPRENTICE PLUMBER Francisco Mckinley DO URINE ORDERABLES Final Result [facility] [phone] [place] [address] [address] [facility] [place] [address] * COLONOSCOPY REPORT (10/03/2022 3:34 PM CDT) Narrative Procedure Note Robert Estrada MD - 10/03/2022 3:34 PM CDT [facility] GI Patient Name: Maribell Foreman Procedure [...] years, otherwise repeat in 10 years Robert Estrdaa MD 10/03/2022 3:34:29 PM Number of Addenda: 0 Note Initiated On: 10/03/2022 2:06 PM Scope Withdrawal Time 0 hours 9 minutes 3 seconds Scope In: 3:18:03 PM Scope Out: 3:32:23 PM [address] [place], [place] Robert Estrada MD GI PROCEDURE ORDERABLES F inal Result * DIABETES EYE EXAM (07/30/2022 10:18 AM CDT) Abstract Provider HEALTH MAINTENANCE Final Resul t * MAMMO SCREEN BILAT W OR WO CAD (04/29/2019 12:45 PM APPRENTICE PLUMBER) Anatomical Region Laterality Modality Breast Bilateral Other Narrative 04/30/2019 7:17 PM APPRENTICE PLUMBER Bilateral Mammogram Reason for Exam: Screening Comparison: [...] to Health Maintenance Insurance [place] [employer] Medicaid Advance Directives For more information, please contact: [phone] Documents on File Type Date Recorded Patient Latin Professor Expl anation Patient Life Sustaining Treatment Doc 07/31/2024 10:50 AM OHDNR Order * Full Code (Latest Code Status on File) Date Activated Date Inactivated Comments 05/18/2024 3:06 PM 05/21/2024 4:34 PM * Full Code Date Activated Date Inactivated Comments 03/27/2022 10:19 PM 04/03/2022 10:07 PM * Full Code Date Activated Date Inactivated Comments 03/29/2021 7:03 AM 03/29/2021 10:40 AM Care Teams Pattern Checker Relationship Specialty Start Date End Date Francisco Mckinley DO [address] [place] [address] PCP - General 06/07/20
[2025-03-13 17:35] LABS: Hematocrit 43.4 % (36-47); Hemoglobin 14.80 g/dL (11.27-16.99); Mean Corpuscular HGB Conc 34.1 g/dL (30-55); Mean Corpuscular Hemoglobin 29.8 pg (27-33); Mean Corpuscular Volume 87.3 fl (85-98); Nucleated Red Blood Cells % 0 %; Platelet Count 321 10^3/cmm (157-399); Red Blood Count 4.97 10^6/uL (3.85-5.65); White Blood Count 11.10 10^3/uL (3.29-11.43)
--- NOTE | 2025-03-13 17:36 | ED_ITS ---
HPI - Fall 2 General: Chief Complaint: Fall Stated Complaint: N/D Time Seen by Provider: 03/13/25 17:10 Related Data Home Medications ?Medication ?Instructions ?Recorded ?Confirmed albuterol sulfate 90 mcg/actuation 2 puff inhalation Q 6H PRN 10/19/23 03/10/25 aerosol inhaler (Ventolin HFA) Shortness Of Breath amitriptyline 75 mg tablet 75 mg PO BEDTIME 10/19/23 1 05/11/24 insulin glargine 100 unit/mL 10 unit SUBCUT DIRECTE D 09/23/24 03/10/25 subcutaneous solution (Lantus U-100 Insulin) ipratropium 0.5 mg-albuterol 3 mg 3 ml inhalation Q4H 09/23/24 03/10/25 (2.5 mg base)/3 mL nebulization soln isosorbide mononitrate 60 mg 60 mg PO DAILY 09/23/24 1 05/11/24 tablet,extended release 24 hr morphine 100 mg tablet,extended 100 mg PO Q8H 09/23/24 03/10/25 release (MS Contin) nifedipine 30 mg tablet,extended 30 mg PO DAILY 03/10/25 release 24 hr (Procardia XL) spironolactone 100 mg tablet 100 mg PO DAILY 09/23/24 03/10/25 (Aldactone) lamotrigine 100 mg tablet 100 mg PO DAILY 10/27/24 (Lamictal) potassium chloride 20 mEq 20 meq PO DAILY 11/22/24 tablet,extended release tizanidine 4 mg tablet 4 mg PO Q6H PRN Spasms 11/2903/10/25 ergocalciferol (vitamin D2) 1,250 1,250 mcg PO Q7D 11/1003/10/25 mcg (50,000 unit) capsule (Vitamin D2) prochlorperazine maleate 10 mg 10 mg PO Q6H PRN nausea /emesis 02/23/25 03/10/25 tablet silver sulfadiazine 1 % topical 1 applic topical BID 1 04/26/24 03/10/25 cream umeclidinium 62.5 mcg-vilanterol 1 inh inhalation YADIRA Y 02/23/25 03/10/25 25 mcg/actuation powdr for inhalation (Anoro Ellipta) Previous Rx's ?Medication ?Instructions ?Recorded levothyroxine 50 mcg tablet 50 mcg PO QAM 30 days #30 tabs 08/19/23 ktmuaj-zmyixtme-lhtkfnf (pork) 1 cap PO TID 30 days #3 0 caps 08/19/23 3,000-9,500-15,000 unit capsule,del rel (Creon) naloxone 4 mg/actuation nasal 4 mg intranasal Q2M PRN opioid 09/24/24 spray (Narcan) overdose #2 ea magnesium oxide 400 mg PO BEDTIME #30 tabs 0 12/04/24 [place] AFO #1 ea 01/19/25 furosemide 40 mg tablet 40 mg PO DIRECTED PRN Romero ma #1 03/02/25 tab hydromorphone 4 mg tablet 2 mg (1/2 x 4 mg) PO BID PRN pain 03/02/25 #7 tabs lactulose 10 gram/15 mL oral 20 g (30 mL) PO 5XD #3,00 0 mL 03/02/25 solution Allergies Allergy/AdvReac Type Severity Reaction Status Date / Time codeine Allergy Unknown ALGY-Hives Verified 03/10/25 08:07 aspirin Allergy ALGY-Hives Verified 03/10/25 08:07 diphenhydramine (From Allergy ADR-Muscle Verified 03/10/25 08:07 Benadryl) Pain Sulfa (Sulfonamide Allergy ALGY-Swell Verified 03/10/25 08:07 Antibiotics) Lip/Tongue/Throat [facility] ED 2 [facility]: Medical History Endocarditis MV , enterococcus fecalis, 2023, treated at [facility] Hypokalemia 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 Pain management contract signed Metabolic encephalopathy SSS (sick sinus syndrome) Presence of permanent cardiac pacemaker Seizure disorder Tobacco dependency Hypothyroidism Accidental fentanyl overdose Overdose Cardiac arrest COPD (chronic obstructive pulmonary disease) Chronically on 3 L of oxygen Smoker Thrombocytopenia Bilateral pulmonary embolism Hepatitis B Pulmonary embolism Nicotine dependence, cigarettes, with unspecified nicotine-induced disorders Chronic hepatitis B Chronic abdominal pain Chronic hip pain Leg cramps Stomach cancer Pelvic inflammatory disease Diabetes mellitus Hypertension Encephalopathy Cirrhosis Gastroesophageal reflux GI bleeding Surgical History H/O right hemicolectomy History of right hemicolectomy H/O tubal ligation History of laparotomy History of hysterectomy Family History Mother Diabetes Father CAD (coronary artery disease) Other Cancer Social History Smoking and tobacco/nicotine status: former use of tobacco/nicotine (quit 2022) Quit status (tobacco/nicotine): has quit using Year quit tobacco: 2020 Former quit date comment: 2ppd x 26 year Hx Alcohol intake: never Substance/Drug Use: never Course 2 Vital Signs: Vital signs: Vital Signs Temperature 98.0 F 03/13/25 16:06 Pulse Rate 71 03/13/25 16:06 Respiratory Rate 18 03/13/25 16:06 Blood Pressure 78/56 03/13/25 16:06 Pulse Oximetry 97 03/13/25 16:06 Oxygen Delivery Me thod Room Air 03/13/25 16:06 - Fall Lab Data 03/13/25 17:25 03/13/25 17:25 Laboratory Results WBC 11.10 10^3/uL (3.29-11.43) 03/13/25 17: RBC 4.97 10^6/uL (3.85-5.65) 03/13/25 17:25 Hgb 14.80 g/dL (11.27-16.99) 03/13/25 17:25 Hct 43.4 % (36-47) 03/13/25 17: MCV 87.3 fl (85-98) 03/13/25 17:25 MCH 29.8 pg (27-33) 03/13/25 17:25 MCHC 34.1 g/dL (30-55) 03/13/25 17:25 RDW 14.3 % (12.1-15.1) 03/13/25 17: Plt Count 321 10^3/cmm (157-399) 03/13/25 17:25 MPV 9.5 fL (7.4-10.4) 03/13/25 17:25 Neut % (Auto) 65.2 % 03/13/25 17:25 Lymph % (Auto) 22.5 % 03/13/25 17:25 [place] % (Auto) 9.5 % 03/13/25 17:25 Eos % (Auto) 1.7 % 03/13/25 17:25 Baso % (Auto) 0.5 % 03/13/25 17:25 Neut # (Auto) 7.23 10^3/uL (1.8-7.7) 03/13/25 17:25 Lymph # (Auto) 2.5 10^3/uL (0.8-4.8) 03/13/25 17:25 [place] # (Auto) 1.1 10^3/uL (0.2-0.9) H 03/13/25 17:25 Eos # (Auto) 0.2 10^3/uL (0.0-0.8) 03/13/25 17:25 Baso # (Auto) 0.1 10^3/uL (0.0-0.1) 03/13/25 17: Nucleated RBC % (auto) 0 % 03/13/25 17: Nucleated RBCs # 0.0 /100WBC 03/13/25 17:25 Discharge Plan Discharge Condition: Stable Prescriptions: No Action (DME) Misty AFO See Rx Instructions .Route .MEDSUPPLY Qty: 1 0RF Rx Instructions: Directed by the Jose Bagley amitriptyline 75 mg tablet 75 mg PO BEDTIME albuterol sulfate [Ventolin HFA] 90 mcg/actuation HFA aerosol inhaler 2 puff INHALATION Q6H PRN (Reason: Shortness Of Breath) lamotrigine [Lamictal] 100 mg tablet 100 mg PO DAILY magnesium oxide 400 mg magnesium tablet 400 mg PO BEDTIME Qty: 30 0RF Rx Instructions: Take 1 p.o. at night silver sulfadiazine 1 % cream 1 applic TOPICAL BID umeclidinium-vilanterol [Anoro Ellipta] 62.5-25 mcg/actuation blister with device 1 inh INHALATION DAILY prochlorperazine maleate 10 mg tablet 10 mg PO Q6H PRN (Reason: nausea/emesis) ergocalciferol (vitamin D2) [Vitamin D2] 1,250 mcg (50,000 unit) capsule 1,250 mcg PO Q7D lactulose 10 gram/15 mL Solution 20 g PO 5XD Qty: 3000 3RF furosemide 40 mg tablet 40 mg PO DIRECTED PRN (Reason: Edema) Qty: 1 0RF Rx Instructions: take as needed for worsening edema hydromorphone 4 mg tablet 2 mg PO BID PRN (Reason: pain) Qty: 7 0RF levothyroxine 50 mcg tablet 50 mcg PO QAM 30 Days Qty: 30 2RF Creon 3,000-9,500- 15,000 unit capsule,delayed release(DR/EC) 1 cap PO TID 30 Days Qty: 30 0RF ipratropium-albuterol 0.5 mg-3 mg(2.5 mg base)/3 mL solution for nebulization 3 ml inhalation Q4H Rx Instructions: use 1 vial IN NEBULIZER EVERY 4 HOURS NEEDED FOR WHEEZING OR SHORTNESS OF BREATH insulin glargine [Lantus U-100 Insulin] 100 unit/mL solution 10 unit SUBCUT DIRECTED Rx Instructions: inject 10 units SUBCUTANEOUSLY at breakfast and 40 units AT BEDTIME spironolactone [Aldactone] 100 mg Tablet 100 mg PO DAILY isosorbide mononitrate 60 mg tablet extended release 24 hr 60 mg PO DAILY morphine [MS Contin] 100 mg tablet extended release 100 mg PO Q8H Rx Instructions: max 3per day nifedipine [Procardia XL] 30 mg tablet extended release 24hr 30 mg PO DAILY naloxone [Narcan] 4 mg/actuation spray,non-aerosol 4 mg intranasal Q2M PRN (Reason: opioid overdose) Qty: 2 0RF Rx Instructions: spray 1 dose into ONE nostril; alternate nostrils w each dose until help arrives potassium chloride 20 mEq tablet extended release 20 meq PO DAILY tizanidine 4 mg tablet 4 mg PO Q6H PRN (Reason: Spasms) Referrals: Francisco Mckinley DO [Primary Care Provider] Print Language: Jordanian Coding Level of Care Code ED Bead Inspector for 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
--- NOTE | 2025-03-13 17:39 | CTR_ITS ---
PROCEDURE INFORMATION: Exam: CT Head Without Contrast Exam date and time: 03/13/2025 7:35 PM Age: 49 years old Clinical indication: Fall TECHNIQUE: Imaging protocol: Computed tomography of the head without contrast. Radiation optimization: All CT scans at this facility use at least one of these dose optimization techniques: automated exposure control; mA and/or kV adjustment per patient size (includes targeted exams where dose is matched to clinical indication); or iterative reconstruction. COMPARISON: CT head wo con* [id number] 02/24/2025 9:34 AM RADIATION DOSE METRICS: Total DLP (mGy-cm): 1073.78 FINDINGS: Brain: No acute intracranial hemorrhage. No mass effect or midline shift. No loss of villatoro-white differentiation to suggest an acute infarct. Cerebral ventricles: No ventriculomegaly. Paranasal sinuses: Visualized sinuses are unremarkable. No fluid levels. Mastoid air cells: Visualized mastoid air cells are well aerated. Bones: Unremarkable. No acute fracture. Soft tissues: Unremarkable. CT/CT head wo con* [id number] IMPRESSION: No acute intracranial hemorrhage.
--- NOTE | 2025-03-13 17:39 | XRR_ITS ---
PROCEDURE INFORMATION: Exam: XR Chest Exam date and time: 03/13/2025 5:50 PM Age: 49 years old Clinical indication: Fall, weakness TECHNIQUE: Imaging protocol: Radiologic exam of the chest. Views: 1 view. COMPARISON: CR XR chest 1V portable [id number] 02/23/2025 11:42 AM FINDINGS: Tubes, catheters and devices: Left pectoral pacemaker with leads positioned in the right atrium and right ventricle. Lungs: Hazy perihilar/basilar opacities. Pleural spaces: No pneumothorax. No pleural effusion. Heart/Mediastinum: Unremarkable. No cardiomegaly. Bones/joints: Unremarkable. XR/XR chest 1V portable [id number] IMPRESSION: Hazy perihilar/basilar opacities. Differential includes pulmonary edema, infection or aspiration. Recommend clinical correlation.
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
[2025-03-13 17:56] LABS: Alanine Aminotransferase 13 U/L (0-33); Albumin Level 3.5 g/dL (3.5-5.2); Alkaline Phosphatase 119 U/L (35-105); Anion Gap 20.4 (5-19); Aspartate Amino Transferase 25 U/L (0-32); Blood Urea Nitrogen 9 mg/dL (6-20); Calcium 9.6 mg/dL (8.5-10.5); Carbon Dioxide 19 mmol/L (22-29); Chloride 98 mmol/L (98-107); Globulin 5.1 g/dL (1.3-4.6); Glucose 110 mg/dL (65-115); Lipase 22 U/L (13-60); Osmolality Calculated 277 mOsm/kg (285-295); Potassium 3.4 mmol/L (3.5-5.1); Sodium 134 mmol/L (136-145); Total Protein 8.6 g/dL (6.6-8.7)
[2025-03-13] MEDS: HYDROmorphone 0.5 MG/0.5 ML INJ 1 MG IVP (19:20)
[2025-03-13] MEDS: ondansetron 2 mg/ML SDV 2 mL 4 MG IVP (19:20)
[2025-03-13 20:18] LABS: Glucose Urine UA Negative (Normal); Nitrate Urine Negative (Negative); Specific Gravity, Urine 1.015 (1.005-1.030)
[2025-03-13 20:23] LABS: Add Urine Microscopic? YES; Universal Test for UA Present (0)
[2025-03-13] MEDS: morphine 4 mg/mL SDV 1 mL 2 MG IVP (20:23)
== END 2025-03-13 20:45 | disposition home or self-care (01) ==
PROVIDERS: Emergency Medicine; Emergency Provider Physician Assistant; PCP Family Medicine
DX: J18.9 Pneumonia, unspecified organism (principal); Z79.891 Long term (current) use of opiate analgesic; W19.XXXA Unspecified fall, initial encounter; Z79.4 Long term (current) use of insulin; Z87.891 Personal history of nicotine dependence; J44.9 Chronic obstructive pulmonary disease, unspecified; Z99.81 Dependence on supplemental oxygen; E11.9 Type 2 diabetes mellitus without complications; I10 Essential (primary) hypertension; Z85.028 Personal history of other malignant neoplasm of stomach
CPT/HCPCS: 36415; 70450; 71045; 80053; 81001; 83690; 85025; 96374; 96375; 99285; J1171; J2270; J2405